=== PATIENT | female | born 1975 | race Caucasian/White ===

== ENCOUNTER → 2019-03-28 13:25 | Outpatient (CLI) | payer MEDICAID, SELFPAY ==
[2019-03-28 13:54] LABS: Basophils # 0.1 K/mm3 (0-0.2); Basophils % 0.4 % (0.1-2.0); Eosinophils # 0.2 K/mm3 (0.0-0.4); Eosinophils % 1.4 % (0.1-12.0); Hematocrit 50.8 % (37.0-47.0); Hemoglobin 16.7 g/dL (12.2-16.2); Lymphocytes # 2.1 K/mm3 (0.7-4.5); Lymphocytes % 18.2 % (10-50); Mean Corpuscular HGB Conc 32.9 g/dL (31.8-35.4); Mean Corpuscular Volume 94.5 fl (81-99); Mean Platelet Volume 8.8 fl (7.4-10.4); Monocytes # 0.6 K/mm3 (0.1-1.0); Monocytes % 5.5 % (1.7-9.3); Neutrophils # 8.6 K/mm3 (1.8-7.8); Neutrophils % 74.5 % (37.0-80.0); Platelet Count 266 K/mm3 (142-424); Red Blood Count 5.38 M/mm3 (4.20-5.40); Red Cell Distribution Width 13.2 % (11.5-17.5); White Blood Count 11.5 K/mm3 (4.8-10.8)
[2019-03-28 14:28] LABS: Alanine Aminotransferase 20 U/L (12-78); Albumin Level 4.4 gm/dL (3.4-5.0); Albumin/Globulin Ratio 1.1 (1.1-1.8); Alkaline Phosphatase 188 U/L (46-116); Anion Gap 13.5 mEq/L (5-15); Aspartate Amino Transferase 10 U/L (15-37); Bilirubin,Total 0.5 mg/dL (0.2-1.0); Blood Urea Nitrogen 5 mg/dL (7-18); Calcium 9.7 mg/dL (8.5-10.1); Carbon Dioxide 28 mmol/L (21.0-32.0); Chloride 103 mmol/L (98-107); Chol/HDL Ratio 3.1 (1-3.5); Cholesterol 194 mg/dL (140-200); Creatinine,Serum 0.83 mg/dL (0.55-1.02); Estimated Glomerular Filt Rate 76 ml/min (>60); Free T4 (Free Thyroxine) 1.17 ng/dl (0.76-1.46); GFR (African American) 92 ML/MIN (>60); Glucose 87 mg/dL (74-106); HDL Cholesterol 62 mg/dL (29-89); LDL Cholesterol 115 mg/dL (0-130); Potassium 4.5 mmoL/L (3.5-5.1); Sodium 140 mmol/L (136-145); Thyroid Stimulating Hormone 0.87 uIU/ml (0.358-3.740); Total Protein,Serum 8.4 gm/dL (6.4-8.2); Triglycerides 87 mg/dL (30-200); VLDL Cholesterol 17 mg/dL (0-40)
[2019-03-29 10:13] LABS: FSH 134.4 mIU/mL (.); LH 71.1 mIU/mL (.); Progesterone 0.2 ng/mL (.); Vitamin D 25 Hydroxy 8.4 ng/mL (30.0-100.0)
[2019-03-30 12:44] LABS: Estrogen 144 pg/mL (.)
== END ==
PROVIDERS: Visit Provider Emergency Medicine
DX: R53.83 Other fatigue (principal); E55.9 Vitamin D deficiency, unspecified; I10 Essential (primary) hypertension; F41.9 Anxiety disorder, unspecified; R01.1 Cardiac murmur, unspecified; R06.02 Shortness of breath; Z72.0 Tobacco use
CPT/HCPCS: 80053; 80061; 82652; 82672; 83001; 83002; 84144; 84439; 84443; 85025

== ENCOUNTER → 2019-05-26 09:52 | Outpatient (CLI) | payer MEDICAID, SELFPAY | PROVIDERS: PCP Emergency Medicine; Visit Provider Emergency Medicine | DX: J45.909 Unspecified asthma, uncomplicated (principal) | CPT/HCPCS: 94060; 94726; 94729 ==

== ENCOUNTER → 2020-01-11 13:40 | Outpatient (CLI) | payer OTHER, SELFPAY ==
[2020-01-11 14:17] LABS: Basophils % 0.3 % (0.1-2.0); Eosinophils # 0.1 K/mm3 (0.0-0.4); Eosinophils % 0.8 % (0.1-12.0); Hematocrit 48.3 % (37.0-47.0); Hemoglobin 15.6 g/dL (12.2-16.2); Lymphocytes # 1.7 K/mm3 (0.7-4.5); Lymphocytes % 16.1 % (10-50); Mean Corpuscular HGB Conc 32.3 g/dL (31.8-35.4); Mean Corpuscular Hemoglobin 30.3 pg (27.0-31.2); Mean Corpuscular Volume 93.7 fl (81-99); Mean Platelet Volume 9.2 fl (7.4-10.4); Monocytes # 0.6 K/mm3 (0.1-1.0); Monocytes % 5.2 % (1.7-9.3); Neutrophils # 8.4 K/mm3 (1.8-7.8); Neutrophils % 77.6 % (37.0-80.0); Platelet Count 226 K/mm3 (142-424); Red Blood Count 5.15 M/mm3 (4.20-5.40); Red Cell Distribution Width 13.4 % (11.5-17.5); White Blood Count 10.8 K/mm3 (4.8-10.8)
[2020-01-11 14:35] LABS: Alanine Aminotransferase 16 U/L (9-52); Albumin/Globulin Ratio 1.3 (1.1-1.8); Alkaline Phosphatase 126 U/L (46-116); Anion Gap 13.3 mEq/L (5-15); Aspartate Amino Transferase 15 U/L (15-37); Bilirubin,Total 0.4 mg/dL (0.2-1.0); Blood Urea Nitrogen 4 mg/dL (7-18); Calcium 8.8 mg/dL (8.5-10.1); Carbon Dioxide 30 mmol/L (21.0-32.0); Chloride 104 mmol/L (98-107); Cholesterol 166 mg/dL (140-200); Creatinine,Serum 0.83 mg/dL (0.55-1.02); Estimated Glomerular Filt Rate 75 ml/min (>60); GFR (African American) 91 ML/MIN (>60); Globulin 3.1 gm/dl (1.3-3.2); Glucose 70 mg/dL (74-106); HDL Cholesterol 56 mg/dL (29-89); LDL Cholesterol 93 mg/dL (0-130); Potassium 4.3 mmoL/L (3.5-5.1); Sodium 143 mmol/L (137-145); T4 (Thyroxine) 10.1 ug/dl (4.7-13.3); Thyroid Stimulating Hormone 0.88 uIU/ml (0.358-3.740); Total Protein,Serum 7.1 g/dL (6.4-8.2); Triglycerides 83 mg/dL (30-200); VLDL Cholesterol 17 mg/dL (0-40)
[2020-01-12 10:29] LABS: Vitamin D 25 Hydroxy 82.3 ng/mL (30.0-100.0)
== END ==
PROVIDERS: Visit Provider Nurse Practitioner Family
DX: R53.83 Other fatigue (principal)
CPT/HCPCS: 80053; 80061; 82652; 84436; 84443; 85025

== ENCOUNTER → 2020-04-05 06:55 | Outpatient (CLI) | payer OTHER, SELFPAY ==
--- NOTE | 2020-04-05 06:57 | CA_ITS ---
APPROVED REPORT Falsework Builder: CT Laterality: Bilateral Study Quality: Good Indications: b carotid bruit, smoker, sob, htn, dizzy, syncope Doppler Spectral Velocity Analysis ECA (R) 91.70/24.80 cm/s ECA (L) 99.40/24.00 cm/s dICA (R) 123.40/50.60 cm/s dICA (L) 102.80/39.40 cm/s Amanda (R) 103.70/39.40 cm/s Amanda (L) 96.00/28.30 cm/s pICA (R) 80.50/33.40 cm/s pICA (L) 80.50/27.40 cm/s dCCA (R) 108.80/33.40 cm/s dCCA (L) 102.00/23.10 cm/s pCCA (R) 133.70/24.00 cm/s pCCA (L) 120.00/23.10 cm/s Vert (R) 84.00/19.70 cm/s Vert (L) 59.10/14.60 cm/s ICA/CCA 1.10 ICA/CCA 1.00 Findings Duplex evaluation demonstrates stenosis of the right proximal internal carotid artery in the range of 20-49%, lower end of scale. Duplex evaluation demonstrates stenosis of the left proximal internal carotid artery in the range of 20-49%, lower end of scale. Duplex evaluation demonstrates antegrade flow of the bilateral Vertebral Arteries. Thyroid cyst noted on the right Conclusion Duplex evaluation demonstrates stenosis of the right proximal internal carotid artery in the range of 20-49%, lower end of scale. Duplex evaluation demonstrates stenosis of the left proximal internal carotid artery in the range of 20-49%, lower end of scale. Duplex evaluation demonstrates antegrade flow of the bilateral Vertebral Arteries. Electronically signed by : Xavi Gaitan MD 04/05/2020 17:33:37
--- NOTE | 2020-04-05 06:57 | CT_ITS ---
PROCEDURE: CT CHEST WO CON CLINICAL INDICATION: dyspnea Shortness of air and chest pain COMPARISON: ABDPELW/O CT ABD PELVIS W/O CONTRAST from 08/13/2014 CT ABDOMEN PELVIS W CON from 11/13/2019 TECHNIQUE: Axial images obtained with sagittal and coronal reformats. All CT scans at the facility use one or more dose reduction, viz: automated exposure control, ma/kV adjustment per patient size (including targeted exams where dose is matched to indication, i.e. head), or iterative reconstruction technique. FINDINGS: HEART AND MEDIASTINAL STRUCTURES: No mediastinal or hilar mass. There is some increased density within the anterior mediastinal fat which could be related to some residual thymic tissue. Normal heart size.. There is minimal pericardial thickening. 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 The left subclavian and jugular vein empties into a left-sided brachiocephalic vein/SVC which empties into the left atrium on the left at the region of the inferior vena cava. LUNGS AND PLEURAL SPACES: Centrilobular emphysema/COPD changes. Evidence of old granulomatous disease. No suspicious nodules or infiltrates are evident. No central obstructing lesions are evident. BONY STRUCTURES: Dextroscoliosis of the midthoracic spine UPPER ABDOMEN: Prior cholecystectomy ADDITIONAL FINDINGS: No other significant abnormalities. IMPRESSION: No acute finding. 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
--- NOTE | 2020-04-05 06:57 | NM_ITS ---
APPROVED REPORT Exam: Nuclear Stress Test Indication: HTN, TOB USE, C.P., SOB, PALPITATIONS, SYNCOPE, FATIGUE Patient Location: Outpatient Stress Tech: Sunshine Henson IN Tech:CJ Kahn RT (R)(N)(M) Ht: 5 ft 4 in Wt: 107 lbs Bra Size: A HR: 76 bpm BP: 139/68 mmHg BSA: 1.50 m2 BMI: 18.3 History: HTN, TOB USE, C.P., SOB, PALPITATIONS, SYNCOPE, FATIGUE Procedure: Patient received a 0.4 mg of intravenous Lexiscan, resting heart rate 76 bpm, resting blood pressure 139/68 mmHg, with Lexiscan maximum heart rate achived was 93 bpm which is Less than 85 % of the maximum predicted heart rate and blood pressure was 128/68 mmHg. Electrocardiogram Resting electrocardiogram showed sinus rhythm, with Lexiscan there is less than 1.[address] segment depression noted from the baseline EKG. The EKG portion of the Lexiscan Myoview is nondiagnostic. Cardiac Stress and Resting SPECT Images: Cardiac Stress and Resting SPECT images were obtained using technetium 99m Myoview 30.6 mCi stress and 10.65 mCi at rest. Gated SPECT with analysis of segmental wall motion and calculation of the ejection fraction also done. Cardiac stress and resting SPECT images show a small area of reversible ischemia involving the posterolateral wall, computer derived ejection fraction is 53% with no regional wall motion abnormality, right ventricle is normal size and contractility. Conclusion: 1. The EKG portion of the Lexiscan Myoview is nondiagnostic. 2. Scintigraphic evidence of small area reversible ischemia involving the posterolateral wall, computer derived ejection fraction 53% with no segmental wall motion abnormality, right ventricle is normal size and contractility. 3. Abnormal Lexiscan Myoview study. Electronically signed by : Jaxson Fuentes, 04/05/2020 14:59:17
--- NOTE | 2020-04-05 06:57 | CA_ITS ---
APPROVED REPORT Exam: Pharmacologic Technologist: Cassie Henson, Ht: 5 ft 4 in Wt: 107 lbs BSA: 1.50 m2 HR: 67 bpm BP: 139/76 mmHg Rhythm: NSR Medical History Medications: Lisinopril,,,,, Omeprazole,,,,, Lexapro,,,,, Escitalopram,,,,, HCTZ,,,,, FluTICASONE,,,,, CHANTIX,,,,, Stress Test Details Test: LEXISCAN HR Resting HR: 72 bpm Max Heart Rate (APMHR): 178 bpm Max HR Achieved: 95 bpm Target HR (85% APMHR): 151 bpm % of APMHR: 53 Recovery HR: 78 bpm BP Resting BP: 139/76 mmHg Max BP: 139/76 mmHg Recovery BP: 117.0/69.0 mmHg ECG Clinical Reason for Termination: Completed Protocol Exercise duration: 04:04 min Highest Stage Achieved: Exercise capacity: 1.0 METs Stress ECG Conclusion No chest pain. Patient c/o of dizziness and shortness of air. No arrhythmias. Less than 1.5mm ST segment changes. Nondiagnostic. Electronically signed by : Jaxson Fuentes, 04/05/2020 14:55:23
--- NOTE | 2020-04-05 06:57 | CA_ITS ---
APPROVED REPORT EXAM: Comprehensive 2D, Doppler, and color-flow Echocardiogram Coutierier: Yumiko Chavis RVT Ht: 5 ft 4 in Wt: 107lbs BSA: 1.50 BP: 144/109 mmHg Indications: CP,SOA,DOUGLAS,SMOKER,PALPS,FATIGUE,HTN,DIZZINESS,NEAR SYNCOPE,ABN EKG,? PFO Echo Enhancing Agent Indication: Rule out Shunt Agent(s) / Amount(s) Used: Agitated Saline 10 cc Comments: BUBBLE STUDY APPEARS NEG. 2D Dimensions LVOT 1.48 cm (M/F) 1.5-2.5 M-Mode Dimensions RVDd 1.35 cm (0.9-2.6) LVDd 5.23 cm (3.5-5.7) LVDs 3.66 cm (3.5-5.7) IVSd 0.59 cm (0.6-1.1) PWd 0.44 cm (0.6-1.1) EF (Teich) 56.90% FS 30.00% EDV (Teich) 131.20 mL ESV (Teich) 56.60 mL LV Diastology E/A Ratio 0.61 Mitral Valve MV A Velocity 85.00 (40-130 cm/s) Left Ventricle Left atrium is mildly enlarged, left ventricle is normal size, there is no concentric left ventricular hypertrophy, visually estimated ejection fraction 55% with no regional wall motion abnormality. Diastolic parameters are inconclusive. Right Ventricle Right atrium and right ventricular normal size and contractility. Aortic Valve Aortic valve is thickened and calcified leaflet chordae display good mobility, there is no aortic stenosis, there is moderate to severe aortic insufficiency. Mitral Valve Mitral valve leaflets are minimally thickened, there is no mitral stenosis, there is mild mitral regurgitation. Tricuspid Valve Tricuspid valve is grossly normal, there is mild tricuspid regurgitation, tricuspid regurgitation jet velocity is inadequate for calculation of the right ventricular systolic pressure. Pulmonic Valve Pulmonic valve is poorly visualized. Great Vessels Aortic root is normal size. Pericardium No significant pericardial effusion noted. Conclusion 1. Mildly enlarged left atrium, normal left ventricular size, visually estimated ejection fraction 55% with no regional wall motion abnormality, diastolic parameters are inconclusive. 2. Thickened and calcified aortic valve without aortic stenosis, there is moderate to severe aortic insufficiency. 3. Mild mitral and tricuspid regurgitation. 4. No significant pericardial effusion noted. Electronically signed by : Jaxson Fuentes, 04/05/2020 15:37:27
[2020-04-05 11:16] LABS: Anion Gap 9.5 mEq/L (5-15); Blood Urea Nitrogen 7 mg/dl (7-17); Calcium 9.4 mg/dl (8.4-10.2); Carbon Dioxide 34 mmol/L (22.0-30.0); Chloride 95 mmol/L (98-107); Estimated Glomerular Filt Rate 92 ml/min (>60); GFR (African American) 111 ML/MIN (>60); Glucose 76 mg/dl (74-100); Potassium 4.5 mmoL/L (3.5-5.1); Sodium 134 mmol/L (136-145)
[2020-04-05 11:24] LABS: NT Pro Brain Natriuretic Pep. 29.4 pg/mL (0-125)
== END ==
PROVIDERS: PCP Emergency Medicine; Visit Provider Internal Medicine Cardiovascular Disease
DX: R07.9 Chest pain, unspecified (principal); R09.89 Other specified symptoms and signs involving the circulatory and respiratory systems; R06.00 Dyspnea, unspecified; I49.9 Cardiac arrhythmia, unspecified; I10 Essential (primary) hypertension; Z72.0 Tobacco use; I35.8 Other nonrheumatic aortic valve disorders; R94.31 Abnormal electrocardiogram [ECG] [EKG]
CPT/HCPCS: 36415; 71250; 78452; 80048; 83880; 93017; 93306; 93880; A9502; J2785

== ENCOUNTER → 2020-04-16 11:03 | Outpatient (CLI) | payer OTHER, SELFPAY ==
[2020-04-16 13:16] LABS: Ferritin 60.7 ng/ml (6.24-137)
[2020-04-17 13:34] LABS: Vitamin B12 376 pg/mL (232-1245)
== END ==
PROVIDERS: Visit Provider Specialist
DX: E83.10 Disorder of iron metabolism, unspecified (principal); G25.81 Restless legs syndrome; G43.919 Migraine, unspecified, intractable, without status migrainosus; R51 Headache; R53.83 Other fatigue
CPT/HCPCS: 36415; 82607; 82728

== ENCOUNTER 2020-04-19 12:02 | Day surgery (SDC) | payer OTHER, SELFPAY ==
[2020-04-19 12:07] VITALS: BMI 18.7
[2020-04-19 12:28] VITALS: BP 114/74; PULSE 76; PULSE 80; RESP 18; TEMP 36.8; O2SAT 99
--- NOTE | 2020-04-19 12:34 | CA_ITS ---
APPROVED REPORT EXAM: Comprehensive 2D, Doppler, and color-flow Echocardiogram Industrial Relations Officer: Wendi Loza RT(R) Ht: 5 ft 4 in Wt: 109lbs BSA: 1.51 BP: 110/70 mmHg Indications: CP, smoker, palpitations, HTN, SOB, ABN EKG, mod-severe AI on echo Procedure After obtaining informed consent, patient underwent transesophageal echo in the [facility]. Type of Sedation : Conscious Sedation Transesophageal probe was inserted and advanced into esophagus without difficulty by Dr. Fozia Alberto. The CHERYL was performed without complications. Throughout the procedure, the blood pressure, pulse oximetry, cardiac rhythm, and rate were monitored. The patient tolerated the procedure without adverse effects. Recovery from conscious sedation was uneventful and vital signs were stable. Left Ventricle Left ventricle is normal size with preserved left ventricular systolic function. Visually estimated ejection fraction 55%. Right Ventricle Right ventricle is normal size and contractility. Atria Left atrium is normal size. Left atrial appendage is free of thrombus, there is good appendage flow by spectral Doppler. Right atrium is normal size. Intra-atrial septum is intact, there is no flow across the interatrial septum, agitated saline contrast study fails to identify intracardiac shunt. Aortic Valve Aortic valve is trileaflet, leaflets are minimally thickened and calcified, there is no aortic stenosis, there is moderate aortic insufficiency, there is no diastolic flow reversal seen in proximal descending thoracic aorta. Mitral Valve Mitral valve is grossly normal, there is mild mitral regurgitation, pulmonary vein Doppler is normal. Tricuspid Valve Tricuspid valve is grossly normal, there is mild tricuspid regurgitation. Pulmonic Valve Pulmonic valve is grossly normal there is no pulmonic stenosis. Insufficiency. Great Vessels Aortic root is normal size. There is no aneurysm or dissection Pericardium No significant pericardial effusion noted Conclusion 1. Normal left ventricular size preserved left ventricular systolic function, visually estimated ejection fraction 55% with no regional wall motion abnormality. 2. Mild degenerative seen on the trileaflet aortic valve without aortic stenosis, there is moderate aortic insufficiency. 3. Mild mitral and tricuspid regurgitation. 4. Agitated saline contrast study fails to identify intracardiac shunt 5. No significant pericardial effusion noted. Electronically signed by : Jaxson Fuentes, 04/19/2020 14:03:35
[2020-04-19 12:35] LABS: Basophils # 0.1 K/mm3 (0-0.2); Basophils % 1.5 % (0.1-2.0); Eosinophils # 0.3 K/mm3 (0.0-0.4); Eosinophils % 4.1 % (0.1-12.0); Hematocrit 45.5 % (37.0-47.0); Hemoglobin 14.6 g/dL (12.2-16.2); Lymphocytes # 1.9 K/mm3 (0.7-4.5); Lymphocytes % 23.9 % (10-50); Mean Corpuscular Hemoglobin 29.7 pg (27.0-31.2); Mean Platelet Volume 7.8 fl (7.4-10.4); Monocytes # 0.6 K/mm3 (0.1-1.0); Neutrophils # 5.1 K/mm3 (1.8-7.8); Neutrophils % 63.5 % (37.0-80.0); Platelet Count 259 K/mm3 (142-424); Red Cell Distribution Width 13.9 % (11.5-17.5); White Blood Count 8.1 K/mm3 (4.8-10.8)
[2020-04-19 13:16] VITALS: BP 95/53; PULSE 61; RESP 18; O2SAT 97
--- NOTE | 2020-04-19 13:24 | HMH.ANESCL ---
[facility] Anesthesia Checklist - Patient Identification Patient Identification: Arm Band, Verbal (Name & ) - Structural Data Admitted From: Home Planned Operative Procedure/s: CHERYL Consent for Planned Operative Procedure(s) Verified: Yes Verified Documents: Surgical Consent, History and Physical - NPO Status Verified Time NPO: 00:00 - Chart Verification Results Verified: CBC, BMP - Additional verifications Anesthesia Reactions: No - Airway Assessment C-Spine Mobility Assessed: Yes TMJ Mobility Assessed: Yes Dentition: Edentulous - Neurological Assessment Level of Consciousness: Awake, Alert, Appropriate, Follows Commands Hx Seizures: No Numbness or tingling in extremities: No - Anesthesia Plan Anesthesia Risk discussed: Yes Anesthesia Plan: Verified ASA Class: III Anesthesia Type: MAC [facility] History I have reviewed the patient's past medical history: Yes Medical History: Reports:: Anxiety, Asthma, Chronic Obstructive Pulmonary Disease (COPD), Heart Murmur, Hypertension, Migraine, Valvular Heart Disease Denies:: Cancer, Diabetes Mellitus Type 1, Diabetes Mellitus Type 2, Internal Pacemaker, MRSA, Seizures *Have you ever received a pneumonia vaccine?: Yes *Have you received a flu vaccine this season?: Yes Other Medical History: Reports: Arthritis Anesthesia experience/problems:: none Other Surgeries: Yes: Cholecystectomy, Hysterectomy-Total. No: Pacemaker Amputation: No Fractures: No - *Social History Smoking Status: Current every day smoker Tobacco Type: cigarettes # Packs/Day (cigarettes): 1 Alcohol Intake: never Substance Use Type: denies use *Occupational Status:: unemployed Housing: house Household Members: spouse *Travel in the last 8 weeks: None - Psychiatric History Pschychiatric History:: Reports:: Anxiety Family Hx:: Cancer, Diabetes, Heart Attack
[2020-04-19 13:30] VITALS: BP 111/61; PULSE 63; RESP 16; O2SAT 99
[2020-04-19 13:55] VITALS: BP 123/72; PULSE 63; RESP 20; O2SAT 99
== END 2020-04-19 13:58 | disposition home or self-care (01) ==
LOC: CATHLAB 12:04
PROVIDERS: PCP Emergency Medicine; Visit Provider Internal Medicine Cardiovascular Disease
DX: I65.23 Occlusion and stenosis of bilateral carotid arteries (principal); E83.10 Disorder of iron metabolism, unspecified; G25.81 Restless legs syndrome; G43.909 Migraine, unspecified, not intractable, without status migrainosus; Z72.0 Tobacco use; I35.1 Nonrheumatic aortic (valve) insufficiency; J44.9 Chronic obstructive pulmonary disease, unspecified; I10 Essential (primary) hypertension; Z88.8 Allergy status to other drugs, medicaments and biological substances; Z79.51 Long term (current) use of inhaled steroids; Z79.899 Other long term (current) drug therapy
CPT/HCPCS: 85025; 93312

== ENCOUNTER → 2020-04-25 13:15 | Outpatient (CLI) | payer OTHER, SELFPAY | PROVIDERS: PCP Emergency Medicine; Visit Provider Specialist | DX: G47.00 Insomnia, unspecified (principal); G25.81 Restless legs syndrome; R06.83 Snoring; I65.23 Occlusion and stenosis of bilateral carotid arteries; R53.83 Other fatigue; G43.919 Migraine, unspecified, intractable, without status migrainosus; R51 Headache; E83.10 Disorder of iron metabolism, unspecified | CPT/HCPCS: 95806 ==

== ENCOUNTER → 2020-05-07 08:25 | Day surgery (SDC) | payer OTHER, SELFPAY ==
[2020-05-07 08:30] VITALS: BMI 18.1
== END ==
PROVIDERS: PCP Emergency Medicine; Visit Provider Internal Medicine
DX: Z53.9 Procedure and treatment not carried out, unspecified reason (principal)

== ENCOUNTER 2020-05-28 08:39 | Day surgery (SDC) | payer OTHER, SELFPAY ==
[2020-05-28] VITALS (11 sets, daily range): BP systolic 92–177; BP diastolic 34–85; PULSE 63–93; RESP 16–20; TEMP 36.1; O2SAT 95–99; BMI 18.1
--- NOTE | 2020-05-28 | IR_ITS ---
APPROVED REPORT Patient Location: Outpatient Cane Splicer: CJ Sherwood RT (R) PROCEDURES Left heart catheterization Left ventriculogram Selective coronary angiogram Catheter placement in the ascending aorta Ascending aortogram INDICATION Angina pectoris, Aortic regurgitation Informed consent was obtained prior to the procedure. COMPLICATIONS none Estimated Blood Loss: less than 10 mls TECHNIQUE One percent lidocaine used to anesthetize the right anterior aspect of the wrist. The right radial artery was accessed via the Seldinger technique. A 6 Palestinian sheath was placed in the right radial artery. 2.5 mg of verapamil, 800 mcg of nitroglycerin, 1mg Lidocaine and 5000 U Heparin were given through the arterial sheath. The trap catheter was also used to perform left heart catheterization, left ventriculogram and selective coronary angiogram. A pigtail catheter was placed in the ascending aorta and ascending aortography was performed at the end of the procedure the sheath was removed good hemostasis was achieved using Traclet band, patient was transferred to the postop holding area in stable condition. ANGIOGRAPHIC RESULTS The left main artery Normal The left anterior descending artery Normal The circumflex artery Normal The right coronary artery Dominant normal The ROPER ventriculogram reveals Normal 65% The left ventricular end-diastolic pressure 10 mmHg The ascending aorta is of normal caliber and gives rise to the brachiocephalic left common carotid artery and left subclavian artery +2 aortic regurgitation is identified IMPRESSION Normal coronary arteries Normal ejection fraction Normal left ventricular end-diastolic pressure Normal left ventricular size with moderate aortic regurgitation PLAN 1. Medical management Electronically signed by : Jose Vaughan, 05/28/2020 11:34:02
[2020-05-28 09:28] LABS: Basophils # 0.1 K/mm3 (0-0.2); Basophils % 0.4 % (0.1-2.0); Eosinophils # 0.1 K/mm3 (0.0-0.4); Eosinophils % 1.3 % (0.1-12.0); Hematocrit 45.9 % (37.0-47.0); Hemoglobin 15.5 g/dL (12.2-16.2); Lymphocytes % 19.1 % (10-50); Mean Corpuscular HGB Conc 33.7 g/dL (31.8-35.4); Mean Corpuscular Hemoglobin 31.7 pg (27.0-31.2); Mean Corpuscular Volume 93.8 fl (81-99); Mean Platelet Volume 8.1 fl (7.4-10.4); Monocytes # 0.6 K/mm3 (0.1-1.0); Monocytes % 5.8 % (1.7-9.3); Neutrophils # 7.8 K/mm3 (1.8-7.8); Neutrophils % 73.4 % (37.0-80.0); Platelet Count 219 K/mm3 (142-424); Red Blood Count 4.89 M/mm3 (4.20-5.40); Red Cell Distribution Width 13.5 % (11.5-17.5); White Blood Count 10.7 K/mm3 (4.8-10.8)
[2020-05-28 09:31] LABS: Chloride 103 mmol/L (98-107); Sodium 138 mmol/L (136-145)
[2020-05-28 09:34] LABS: Blood Urea Nitrogen 5 mg/dl (7-17); Creatinine Clearance Estimated 79 mL/min (50-200); Estimated Glomerular Filt Rate 92 ml/min (>60); GFR (African American) 111 ML/MIN (>60)
[2020-05-28 09:35] LABS: Calcium 8.8 mg/dl (8.4-10.2); Carbon Dioxide 31 mmol/L (22.0-30.0); Glucose 85 mg/dl (74-100)
== END 2020-05-28 13:22 | disposition home or self-care (01) ==
LOC: CATHLAB 08:41
PROVIDERS: PCP Emergency Medicine; Visit Provider Internal Medicine
DX: I20.8 Other forms of angina pectoris (principal); I35.1 Nonrheumatic aortic (valve) insufficiency; I10 Essential (primary) hypertension; I65.23 Occlusion and stenosis of bilateral carotid arteries; Z72.0 Tobacco use; Z88.8 Allergy status to other drugs, medicaments and biological substances; Z79.899 Other long term (current) drug therapy
CPT/HCPCS: 80048; 85025; 93458; 93567; 99152; C1725; C1769; J1644; Q9966; Q9967

== ENCOUNTER → 2020-07-23 10:31 | Outpatient (POV) | payer OTHER, SELFPAY ==
[2020-07-23 11:02] VITALS: BP 192/85; PULSE 78; RESP 18; TEMP 36.6; O2SAT 97; BMI 17.8
--- NOTE | 2020-07-23 11:46 | HMH.PMCON ---
Assessment and Plan (1) Degenerative joint disease (DJD) of lumbar spine Current visit: Yes Status: Chronic Category: Medical Code(s): M47.816 - Spondylosis without myelopathy or radiculopathy, lumbar region (2) Lumbar radiculopathy Current visit: Yes Status: Chronic Category: Medical Code(s): M54.16 - Radiculopathy, lumbar region - Assessment and plan all Dx Assessment and Plan for all problems:: We will schedule L4-L5 Lumbar Epidural Steroid Injection for the Patient. Patient's Been Instructed to Call the Office If She Has Any Issues Prior to Her Next Appointment. Patient Is Not on Any Anticoagulation Therapy. Dr. Miller has reviewed this note and agrees with this plan of care. This note was dictated using voice recognition software and may contain errors or omissions HPI - Data of Consult Consult date: 07/23/20 Requesting Physician: Cecy Andrade APRN Primary Care Provider: Rodolfo Muhammad MD - Consult Narrative Reason for consult: Back pain History of present illness: Ms. Weiss is a 44 year old female who presents today for consultation regards to her back and leg pain. Patient was seen in our clinic previously and managed with epidural steroid injections and [place]. Patient had a failed urine drug screen and we were no longer able to prescribe for her. Patient states that the epidural injections were beneficial for her and she would like to continue with this. She rates her pain today 3 out of 10. She is scheduled to start physical therapy today. Patient currently on Tylenol 3, gabapentin and tizanidine. Patient's pain is in her back radiating to her bilateral legs. CC: Cecy Andrade APRN [facility] History I have reviewed the patient's past medical history: Yes Medical History: Reports:: Anxiety, Asthma, Chronic Obstructive Pulmonary Disease (COPD), Heart Murmur, Hypertension, Migraine, Valvular Heart Disease Denies:: Cancer, Diabetes Mellitus Type 1, Diabetes Mellitus Type 2, Internal Pacemaker, MRSA, Seizures *Have you ever received a pneumonia vaccine?: Yes *Have you received a flu vaccine this season?: Yes Other Medical History: Reports: Arthritis Other Surgeries: Yes: Cholecystectomy, Hysterectomy-Total. No: Pacemaker Amputation: No Fractures: No - *Social History Smoking Status: Current every day smoker Tobacco Type: cigarettes # Packs/Day (cigarettes): 1 Alcohol Intake: never Substance Use Type: denies use *Occupational Status:: other Housing: house Household Members: other *Travel in the last 8 weeks: None - Psychiatric History Pschychiatric History:: Reports:: Anxiety Family Hx:: Unable to obtain Review of Systems - Review of Systems ROS General: no recent weight change, no fever, no sleep disturbances Respiratory: no cough, no shortness of air, no recurring pulmonary infections Cardiovascular/Peripheral Vascular: No chest pain, No palpitations, no edema, no shortness of breath. Gastrointestinal: no new onset incontinence, normal bowel movements reported Genitourinary: no new onset incontinence Musculoskeletal: Back pain, leg pain Psychiatric: normal mood/ affect, Neurological: [denies new onset weakness in extremities], [denies new onset balance issues] Meds Home Medications Medication Instructions Recorded Confirmed Type cetirizine 10 mg capsule 10 mg PO DAILY #30 cap 04/20/20 07/16/20 Rx lisinopril 10 mg tablet See Rx Instructions .ROUTE 06/07/20 07/16/20 Rx .COMPLEX #90 tab vilazodone 20 mg tablet 20 mg PO DAILY 30 Days #30 tab 06/11/20 07/16/20 Rx fluticasone furoate 100 ea INHALATION 07/09/20 07/16/20 History mcg-vilanterol 25 mcg/dose inhalation powder fluticasone propionate 50 g INTRANASAL 07/09/20 07/16/20 History mcg/actuation nasal spray,suspension tizanidine 2 mg tablet 2 mg PO QHS #30 tab 07/09/20 07/16/20 Rx trazodone 50 mg tablet 50 mg PO QHS #45 tab 07/09/20 07/16/20 Rx acetaminophen 300 mg-codeine 30 mg 1 tab
== END ==
PROVIDERS: PCP Emergency Medicine; Visit Provider Clinical Nurse Specialist Family Health
DX: M47.896 Other spondylosis, lumbar region (principal); M54.16 Radiculopathy, lumbar region
CPT/HCPCS: 99202

== ENCOUNTER → 2020-08-15 15:51 | Outpatient (CLI) | payer OTHER, SELFPAY ==
[2020-08-15 16:06] LABS: Basophils % 0.4 % (0.1-2.0); Eosinophils # 0.3 K/mm3 (0.0-0.4); Hematocrit 49.6 % (37.0-47.0); Hemoglobin 16.4 g/dL (12.2-16.2); Lymphocytes # 2.7 K/mm3 (0.7-4.5); Lymphocytes % 29.6 % (10-50); Mean Corpuscular Hemoglobin 31.5 pg (27.0-31.2); Mean Corpuscular Volume 95.5 fl (81-99); Mean Platelet Volume 9.9 fl (7.4-10.4); Monocytes # 0.6 K/mm3 (0.1-1.0); Monocytes % 6.3 % (1.7-9.3); Neutrophils # 5.5 K/mm3 (1.8-7.8); Neutrophils % 60.6 % (37.0-80.0); Platelet Count 185 K/mm3 (142-424); Red Blood Count 5.19 M/mm3 (4.20-5.40); Red Cell Distribution Width 13.4 % (11.5-17.5); White Blood Count 9.1 K/mm3 (4.8-10.8)
[2020-08-15 16:47] LABS: Alanine Aminotransferase 7 U/L (12-78); Albumin Level 4.6 g/dl (3.5-5.0); Albumin/Globulin Ratio 1.7 (1.1-1.8); Alkaline Phosphatase 130 U/L (38-126); Anion Gap 15.5 mEq/L (5-15); Aspartate Amino Transferase 22 U/L (14-36); Bilirubin,Total 0.4 mg/dl (0.2-1.3); Blood Urea Nitrogen 4 mg/dl (7-17); Calcium 9.8 mg/dl (8.4-10.2); Carbon Dioxide 31 mmol/L (22.0-30.0); Chloride 98 mmol/L (98-107); Chol/HDL Ratio 2.8 (1-3.5); Cholesterol 171 mg/dl (140-200); Estimated Glomerular Filt Rate 92 ml/min (>60); GFR (African American) 111 ML/MIN (>60); Globulin 2.7 g/dL (1.3-3.2); Glucose 71 mg/dl (74-100); HDL Cholesterol 61 mg/dl (40-60); Potassium 4.5 mmoL/L (3.5-5.1); Sodium 140 mmol/L (136-145); Total Protein,Serum 7.3 g/dl (6.3-8.2); Triglycerides 145 mg/dl (30-150); VLDL Cholesterol 29 mg/dL (0-40)
[2020-08-15 16:58] LABS: Direct LDL Cholesterol 89.77 mg/dL (100-129)
[2020-08-15 17:04] LABS: 25-OH Vitamin D, Total 42.4 ng/mL (30-100)
[2020-08-15 17:05] LABS: Free T4 (Free Thyroxine) 1.49 ng/dl (0.78-2.19)
[2020-08-15 17:18] LABS: Thyroid Stimulating Hormone 4.31 uIU/mL (0.465-4.68)
[2020-08-15 17:37] LABS: Vitamin B12 370 pg/mL (239-931)
== END ==
PROVIDERS: Visit Provider Emergency Medicine
DX: R42 Dizziness and giddiness (principal); E55.9 Vitamin D deficiency, unspecified
CPT/HCPCS: 80053; 80061; 82306; 82607; 84439; 84443; 85025

== ENCOUNTER → 2020-08-23 13:45 | Outpatient (POV) | payer OTHER, SELFPAY ==
[2020-08-23 13:56] VITALS: BP 128/76; PULSE 65; RESP 18; O2SAT 97; BMI 17.5
--- NOTE | 2020-08-23 14:26 | XR_ITS ---
PROCEDURE: XR THORACIC SPINE 2V CLINICAL INDICATION: severe back pain COMPARISON: No exams were available for comparison FINDINGS: No fracture or dislocation. No lytic or blastic change. There is normal mineralization. Dextroscoliosis at 26 degrees. No obvious congenital anomalies. No acute fracture or dislocation Other findings:None. IMPRESSION: Dextroscoliosis Dictated by: Xavi Gaitan MD 08/23/2020 15:38 Xavi Gaitan MD in [place] 08/23/2020 15:38
--- NOTE | 2020-08-23 14:26 | XR_ITS ---
PROCEDURE: XR LUMBAR SPINE MIN 4V CLINICAL INDICATION: severe back pain COMPARISON: CT CT ABDOMEN PELVIS W CON from 11/13/2019 FINDINGS: No fracture or dislocation. No lytic or blastic change. There is normal mineralization. Leftward scoliosis at 22 degrees. The disc spaces are well preserved. No significant degenerative change. Surgical clips are present in the right upper quadrant. There are multiple pelvic phleboliths. Other findings:None. IMPRESSION: Levoscoliosis otherwise negative Dictated by: Xavi Gaitan MD 08/23/2020 15:37 Xavi Gaitan MD in [place] 08/23/2020 15:37
--- NOTE | 2020-08-23 15:04 | HMH.PAINSOAP ---
[facility] Pain Management SOAP Note Subjective:: Patient is a 45-year-old white female who presents today for follow-up. She was scheduled for a lumbar epidural steroid injection at L4-L5, however, she was denied by her insurance. She has been treated for chronic low back pain with lumbar radiculopathy symptoms as well as lumbar spondylosis and facet arthropathy. Patient was treated with oral medications in the past, however, she did have a positive urine drug screen and, as result, we did stop providing oral medications. Patient is having pain primarily in her low back with radiation into her lower extremities causing numbness and tingling. The patient says the pain is worse with standing and walking and does improve with leaning forward. She also says she has to reposition often with sitting. She is notably uncomfortable during the visit. She says that the numbness and tingling is in bilateral lower extremities. She is concerned that she is going to fall. She does rate her pain a 4 out of 10. Review of Systems General: No recent weight changes, no fever, no sleep disturbances Respiratory: No cough, no shortness of air, no recurring pulmonary infections Cardiovascular/peripheral vascular: No chest pain, no palpitations, no edema, no shortness of breath Gastrointestinal: No new onset incontinence, normal bowel movements reported Genitourinary: No new onset incontinence Musculoskeletal: Low back pain, bilateral lower extremity pain with numbness and tingling Psychiatric: Normal mood/affect Neurological: [Denies weakness in extremities], [denies balance issues] Objective:: Physical exam General: Alert and oriented x3, no acute distress, pleasant and cooperative, [on room air] Lungs: Respirations even and unlabored, symmetrical chest expansion Eyes: PERRL Musculoskeletal: Flexion and extension of lumbar spine somewhat guarded secondary to pain, deep tendon reflexes normal, strength in upper and lower extremities [5/5], [abnormal gait noted] Neurological: Speech clear, denture model maker equal, no gross sensory deficit Assessment:: Degenerative disc disease lumbar spine with lumbar radiculopathy symptoms, lumbar spondylosis with facet arthropathy lumbar spine Plan:: We will schedule the patient for a lumbar epidural steroid injection at L4-L5. She is not on any anticoagulation therapy. We will plan to see her back in the clinic after her injection to reassess her symptoms. She has tried and failed physical therapy for greater than 6 weeks as well as a continued home stretching program. She also continues to use ice and heat therapies. Patient is prescribed oral medications of gabapentin by her primary care provider. Patient has been instructed to contact clinic if she has any concerns for next appointment. The patient and I specifically discussed risk factors for COVID19. These risks include, but are not limited to age greater than 60, heart or lung disease, diabetes, immunosuppression, and travel. We also discussed NSAIDs may worsen COVID19 infection or symptoms. Patient should not use NSAIDs to treat COVID19 signs or symptoms. Patient was also informed that any type of corticosteroid of any form (oral or injection) will decrease the patient's immune system response and may increase the likelihood of COVID19 infection [address] symptoms[address]. Miller has reviewed this note and agrees with this plan of care. This note was dictated using voice recognition software and make contain errors or omissions. [facility] History I have reviewed the patient's past medical history: Yes Medical History: Reports:: Anxiety, Asthma, Chronic Obstructive Pulmonary Disease (COPD), Heart Murmur, Hypertension, Migraine, Valvular Heart Disease Denies:: Cancer, Diabetes Mellitus Type 1, Diabetes Mellitus Type 2, Internal Pacemaker, MRSA, Seizures *Have you ever received a pneumonia vaccine?: Yes *Have you received a flu vaccine this season?: Yes Other Medical History: Reports
== END ==
LOC: SC.PAIN 13:46 → RAD 14:20
PROVIDERS: PCP Emergency Medicine; Visit Provider Specialist
DX: G89.29 Other chronic pain (principal); M54.6 Pain in thoracic spine
CPT/HCPCS: 72070; 72110; 99212

== ENCOUNTER → 2020-09-20 16:05 | Outpatient (CLI) | payer OTHER, SELFPAY | PROVIDERS: PCP Emergency Medicine; Visit Provider Physician Assistant | DX: R42 Dizziness and giddiness (principal) | CPT/HCPCS: 93225; 93226 ==

== ENCOUNTER 2020-09-21 10:24 | Day surgery (SDC) | payer OTHER, SELFPAY ==
[2020-09-21 10:57] VITALS: BP 152/60; PULSE 65; RESP 18; TEMP 36.4; O2SAT 100; BMI 17.6
[2020-09-21 11:51] VITALS: BP 122/78; PULSE 85; RESP 18; O2SAT 98
--- NOTE | 2020-09-21 11:58 | HMH.PMPROC ---
- Procedure Date: 09/21/20 Time: 11:58 Anesthesiologist:: Nicolas Miller MD Complications:: None Pre-procedure Diagnosis:: Degenerative disc disease of lumbar spine with lumbar radiculopathy symptoms Post-procedure Diagnosis:: Same Indications for Procedure:: This patient is a pleasant 45-year-old white female who we are treating for low back pain with lumbar radiculopathy symptoms. She has increasing pain into both hips and both legs. Worse on the left side. We will do a lumbar epidural steroid injection today to see if this will help with her pain symptoms. Procedure Details:: Lumbar epidural steroid injection under fluoroscopy Informed consent was obtained and the risk and benefits of the procedure was explained to the patient. The patient was taken to the procedure room. The patient was placed prone on the procedure table. The patient was prepped and draped in sterile fashion. C-arm fluoroscopy was used to view the lumbar spine. Skin and subcutaneous tissues were anesthetized using lidocaine. I placed an 18-gauge epidural needle and advanced into the L4-L5 interspace using fluoroscopic guidance and [id number] to air. After confirmation of needle placement in the epidural space with dye I injected 2 mL of lidocaine 1.5% with Depo-Medrol 80 mg. Patient tolerated the procedure well with no complications. Plan and Disposition:: We will follow-up with her in 2 weeks. Will reevaluate symptoms at that time.
[2020-09-21 12:05] VITALS: BP 150/62; PULSE 61; RESP 18; O2SAT 100
== END 2020-09-21 12:05 | disposition home or self-care (01) ==
LOC: SC.PAINP 10:27
PROVIDERS: PCP Emergency Medicine; Visit Provider Anesthesiology
DX: M51.16 Intervertebral disc disorders with radiculopathy, lumbar region (principal); I25.10 Atherosclerotic heart disease of native coronary artery without angina pectoris; E78.5 Hyperlipidemia, unspecified; I10 Essential (primary) hypertension; R00.2 Palpitations; J45.909 Unspecified asthma, uncomplicated; G43.909 Migraine, unspecified, not intractable, without status migrainosus; I65.29 Occlusion and stenosis of unspecified carotid artery; Z72.0 Tobacco use
CPT/HCPCS: 62323; J1040; Q9966

== ENCOUNTER 2020-09-21 20:17 | Emergency (ER) | payer OTHER, SELFPAY ==
[2020-09-21 20:24] VITALS: BP 178/95; PULSE 85; RESP 16; TEMP 36.6; O2SAT 98; BMI 19.2
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
--- NOTE | 2020-09-21 20:41 | PC.NURSE ---
to radiology at this time
[2020-09-21 21:00] VITALS: BP 169/91; PULSE 88; RESP 17; O2SAT 99
[2020-09-21 21:30] VITALS: BP 177/89; PULSE 84; RESP 17; O2SAT 99
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
--- NOTE | 2020-09-21 21:55 | PC.NURSE ---
call placed to [facility]
[2020-09-21 22:00] VITALS: BP 170/88; PULSE 86; RESP 17; O2SAT 98
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
--- NOTE | 2020-09-21 22:10 | PC.NURSE ---
ACCEPTED TRANSFER TO THE ER.
[2020-09-21 22:22] VITALS: BP 168/75; PULSE 79; RESP 15; TEMP 36.7; O2SAT 98
--- NOTE | 2020-09-21 22:44 | PC.NURSE ---
public affairs officer at bedside
== END 2020-09-21 22:55 | disposition short-term general hospital (02) ==
PROVIDERS: Emergency Provider Family Medicine; PCP Emergency Medicine
DX: S12.601A Unspecified nondisplaced fracture of seventh cervical vertebra, initial encounter for closed fracture (principal); Y04.2XXA Assault by strike against or bumped into by another person, initial encounter; Y92.019 Unspecified place in single-family (private) house as the place of occurrence of the external cause; F17.210 Nicotine dependence, cigarettes, uncomplicated; S50.812A Abrasion of left forearm, initial encounter; S50.811A Abrasion of right forearm, initial encounter; F41.9 Anxiety disorder, unspecified; G43.709 Chronic migraine without aura, not intractable, without status migrainosus; I25.10 Atherosclerotic heart disease of native coronary artery without angina pectoris; J44.9 Chronic obstructive pulmonary disease, unspecified; I10 Essential (primary) hypertension; E78.5 Hyperlipidemia, unspecified; Z88.6 Allergy status to analgesic agent; Z79.899 Other long term (current) drug therapy
CPT/HCPCS: 70450; 71045; 72125; 72170; 96374; 96375; 99283; J2405

== ENCOUNTER → 2020-10-05 13:35 | Outpatient (CLI) | payer OTHER, SELFPAY ==
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
== END ==
PROVIDERS: PCP Emergency Medicine; Visit Provider Physician Assistant
DX: S12.9XXA Fracture of neck, unspecified, initial encounter (principal)
CPT/HCPCS: 77080

== ENCOUNTER → 2020-10-09 09:47 | Outpatient (CLI) | payer OTHER, SELFPAY ==
--- NOTE | 2020-10-09 09:48 | MR_ITS ---
PROCEDURE: MR HEAD/BRAIN WO/W CON CLINICAL INDICATION: headache, daily dizziness HEADACHE AND DIZZINESS. SYMPTOMS X1YR BUT HAS GOTTEN WORSE [id number]. COMPARISON: CT CT HEAD/BRAIN WO CON from 09/21/2020 TECHNIQUE: Routine multiplanar multi echo sequences are performed without and with gadolinium enhancement. FINDINGS: No midline shift, mass effect, intracranial hemorrhage, or hydrocephalus is evident. The cerebellopontine angles, cerebellum, and brainstem have an unremarkable appearance. There are few scattered T2 white matter hyperintensities which are nonspecific. The pituitary, optic chiasm, and corpus callosum have an unremarkable appearance. There is mild cerebellar ectopia of 3 mm. The 4th ventricle has an unremarkable appearance. No enhancing lesions are apparent. No mastoid effusion or sinus air-fluid level. There is a retention cyst in the right maxillary sinus which measures 2.8 cm. IMPRESSION: No acute intracranial findings. There are few scattered T2 white matter hyperintensities which are nonspecific. Differential diagnosis would include ischemic gliotic foci, migraine headache, or demyelinating process which is felt to be less likely due to imaging characteristics. Correlation with clinical parameters needed. Right maxillary sinus retention cyst. Dictated by: Xavi Gaitan MD 10/10/2020 13:44 Xavi Gaitan MD in [place] 10/10/2020 13:44
== END ==
PROVIDERS: PCP Emergency Medicine; Visit Provider Specialist
DX: R51.9 Headache, unspecified (principal); R42 Dizziness and giddiness; G89.29 Other chronic pain
CPT/HCPCS: 70553; A9576

== ENCOUNTER 2020-10-16 11:55 | Emergency (ER) | payer OTHER, SELFPAY ==
[2020-10-16 12:05] VITALS: BP 148/79; PULSE 62; RESP 20; TEMP 36.7; O2SAT 98; BMI 17.2
--- NOTE | 2020-10-16 12:41 | HMH.EDUTC ---
[facility] [place] Clinical Impression: Viral syndrome, Exposure to COVID-19 virus Disposition: Home, Self-Care Condition on Discharge: Good Instructions: Preventing the Spread of Coronavirus Discharge Instructions Additional Instructions: Drink plenty of fluids. Take tylenol for pain or fever. Return if you begin to have difficulty breathing. Follow up with your regular doctor. GO TO THE ER FOR ANY WORSENING SYMPTOMS Referrals: Rodolfo Muhammad MD [Primary Care Provider] - Time of Disposition: 12:45 Medical Decision Making - Medical Records Medical records reviewed: No: I reviewed the patient's medical records. - Wilian Inquiry Pt receiving controlled substance: No Vital Signs: 10/16/20 12:05 10/16/20 13:04 Temperature 98.0 F 98.0 F Temperature Source Oral Oral Pulse Rate 62 Pulse Rate [Radial] 62 Respiratory Rate 20 20 Blood Pressure 148/79 H Blood Pressure [Right Arm] 148/79 H Blood Pressure Mean [Right Arm] 102 Blood Pressure Source Automatic Cuff Blood Pressure Source [Right Arm] Automatic Cuff Blood Pressure Position Sitting Blood Pressure Position [Right Arm] Sitting 02 Sat by Pulse Oximetry 98 Oxygen Delivery Method Room Air Room Air Orders (Tests/Meds): ORDERS Category Date Time Status Covid-19 Nasal PCR ([facility]) Routine Lab 10/16/20 12:01 [place] [facility] [place] - General Stated complaint: covid test Time Seen by Provider: 10/16/20 12:41 Mode of Arrival: Ambulatory Source of Information: Patient Limitations: No Limitations Description of Symptoms (Recalled from Triage Doc. by RN): sore throat, diarrhea, headaches, wants covid test HEENT Symptoms (Recalled from RN notes): Yes Resp Symptoms (Recalled from RN notes): No Skin Symptoms (Recalled from RN notes): No MS Symptoms (Recalled from RN notes): No Functional Status (Recalled from RN notes): wnl - History of Present Illness Provider Complaint: She reports 3 days of feeling bad. Denies fever. - Related Data Home Medications Medication Instructions Recorded Confirmed Cetirizine HCl [Zyrtec] 10 mg PO DAILY 09/21/20 09/27/20 Diclofenac Sodium [Voltaren 2 g TOPICAL QID 09/21/20 09/27/20 Arthritis Pain] Gabapentin [Gabapentin 100mg Cap] 200 mg PO QHS 09/21/20 09/27/20 Nebivolol HCl [Bystolic] 5 mg PO DAILY 09/21/20 09/27/20 Simvastatin 10 mg PO HS 09/21/20 09/27/20 Tizanidine HCl 2 mg PO QHS 09/21/20 09/27/20 lisinopriL [Prinivil 10mg Tablet] 10 mg PO DAILY 09/21/20 09/27/20 acetaminophen 300 mg-codeine 30 mg 1 tab PO BID PRN 09/27/20 09/27/20 tablet trazodone 50 mg tablet 25 mg PO QHS tab 09/27/20 09/27/20 Previous Rx's Medication Instructions Recorded albuterol sulfate 90 mcg/actuation 2 puff INHALATION Q4-6H PRN #6.7 g 07/31/20 aerosol inhaler fluticasone furoate 100 1 inh INHALATION DAILY #28 each 09/25/20 mcg-vilanterol 25 mcg/dose inhalation powder varenicline 0.5 mg (11)-1 mg (42) See Rx Instructions PO PER PKG DIR 09/25/20 tablets in a dose pack #53 tab vortioxetine 10 mg tablet 10 mg PO DAILY #30 tab 10/02/20 alendronate 70 mg tablet 70 mg PO WEEKLY #5 tab 10/08/20 calcium carbonate 500 mg (1,250 1 tab PO DAILY #30 tab 10/08/20 mg)-vitamin D3 400 unit tablet hydrocodone 5 mg-acetaminophen 325 1 tab PO Q8H PRN #42 tab 10/08/20 mg tablet Allergies Allergy/AdvReac Type Severity Reaction Status Date / Time ibuprofen [IBUPROFEN] Allergy Unknown SOB Verified 10/10/20 14:05 tramadol [TRAMADOL] Allergy Unknown HEART RACES Verified 10/10/20 14:05 - Worker's Comp Is this a Worker's Comp case?: No [facility] History - Hepatitis A Screen Drug use history?: No High risk sexual behaviors?: No History of sexually transmitted infection?: No Currently employed?: No Childcare worker?: No Do you have indoor plumbing?: Yes Do you have electricity?: Yes Attestation statement:: This patient has been screened for Hepatitis A risk factors. I have reviewed the patient's pa
[2020-10-16 13:04] VITALS: BP 148/79; PULSE 62; RESP 20; TEMP 36.7; O2SAT 98
== END 2020-10-16 13:04 | disposition home or self-care (01) ==
PROVIDERS: Emergency Provider Nurse Practitioner Family; PCP Emergency Medicine
DX: Z20.828 Contact with and (suspected) exposure to other viral communicable diseases (principal); J02.9 Acute pharyngitis, unspecified; B34.9 Viral infection, unspecified; I10 Essential (primary) hypertension; E78.5 Hyperlipidemia, unspecified; I25.10 Atherosclerotic heart disease of native coronary artery without angina pectoris; F41.9 Anxiety disorder, unspecified; G43.709 Chronic migraine without aura, not intractable, without status migrainosus; Z79.899 Other long term (current) drug therapy
CPT/HCPCS: 99201; U0003

== ENCOUNTER → 2020-10-22 10:19 | Outpatient (POV) | payer OTHER, SELFPAY ==
[2020-10-22 10:39] VITALS: BP 113/85; PULSE 74; RESP 18; TEMP 36.8; O2SAT 97; BMI 34.5
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
== END ==
PROVIDERS: PCP Emergency Medicine; Visit Provider Clinical Nurse Specialist Family Health
DX: M51.16 Intervertebral disc disorders with radiculopathy, lumbar region (principal); S12.9XXA Fracture of neck, unspecified, initial encounter; X58.XXXA Exposure to other specified factors, initial encounter
CPT/HCPCS: 99212

== ENCOUNTER → 2021-03-12 12:52 | Outpatient (CLI) | payer OTHER, SELFPAY ==
--- NOTE | 2021-03-12 13:09 | CA_ITS ---
APPROVED REPORT EXAM: Comprehensive 2D, Doppler, and color-flow Echocardiogram Fleshing Machine Operator: Yumiko Chavis RVT Ht: 5 ft 3 in Wt: 103lbs BSA: 1.46 BP: 175/96 mmHg Indications: SOA,CP,MOD AI,DIZZINESS,SMOKER,HTN 2D Dimensions LVOT 1.74 cm (M/F) 1.5-2.5 LA Volume 20.20 mL LA Volume Index 13.93 mL/m2 (M/F) 16-34 M-Mode Dimensions RVDd 1.39 cm (0.9-2.6) LA Diam 3.18 cm (1.9-4.0) LVDd 4.85 cm (3.5-5.7) Ao Diam 2.83 cm (2.0-3.7) LVDs 3.63 cm (3.5-5.7) IVSd 1.25 cm (0.6-1.1) PWd 0.96 cm (0.6-1.1) EF (Teich) 49.60% FS 25.20% EDV (Teich) 110.20 mL TAPSE 1.87 (<1.7) ESV (Teich) 55.50 mL LV Diastology E Decel Time 303.00 (160-240 msec) E/A Ratio 0.9 MED E' 5.20 (< 7 cm/sec) E'/MED E' Ratio 15.69 (>14) LAT E' 5.50 (<10 cm/sec) E/LAT E' Ratio 14.84 (>14) Aortic Valve AI PHT 643.00 ms Mitral Valve MV E Max Chase. 82.00 (40-130 cm/s) MV A Velocity 94.00 (40-130 cm/s) E/A Ratio 0.87 MV Decel. Time 303.00 (160-240 ms) MV PHT 89.00 ms Pulmonary Valve PV Peak Velocity 74.00 (50-150 cm/s) Tricuspid Valve TR P. Velocity 309.00 cm/s RAP Estimate 10.00 mmHg RVSP 48.20 mmHg Left Ventricle Left atrium is qualitatively mildly enlarged, left ventricle is qualitatively mildly dilated, visually estimated ejection fraction 50% with no obvious regional wall motion abnormality, grade 1 diastolic dysfunction seen with tissue Doppler evidence of raise left atrial pressure. Right Ventricle Right atrium and right ventricle are normal size and contractility. Aortic Valve Aortic valve is thickened and calcified likely bicuspid aortic valve there is no aortic stenosis, there is severe aortic insufficiency. Mitral Valve Mitral valve leaflets are minimally thickened, there is mild mitral regurgitation. Tricuspid Valve Tricuspid grossly normal, there is mild tricuspid regurgitation, tricuspid regurgitation jet velocity is inadequate for calculation of the right ventricular systolic pressure. Pulmonic Valve Pulmonic valve is poorly visualized. Great Vessels Aortic root is normal size. Inferior vena cava is mildly dilated with normal inspiratory collapse. Pericardium No significant pericardial effusion noted. Conclusion 1. Mildly enlarged left atrium, mildly dilated left ventricle, visually estimated ejection fraction 50% with no obvious regional wall motion abnormality, grade 1 diastolic dysfunction seen with tissue Doppler evidence of raise left atrial pressure. 2. Likely bicuspid aortic valve with severe aortic insufficiency. 3. Mild mitral and tricuspid regurgitation. 4. No significant pericardial effusion noted. Electronically signed by : Jaxson Fuentes, 03/12/2021 21:43:16
== END ==
PROVIDERS: PCP Nurse Practitioner Family; Visit Provider Internal Medicine Cardiovascular Disease
DX: R06.02 Shortness of breath (principal); R07.9 Chest pain, unspecified; R42 Dizziness and giddiness; R94.31 Abnormal electrocardiogram [ECG] [EKG]
CPT/HCPCS: 93306

== ENCOUNTER 2022-01-03 01:13 | Emergency (ER) | payer OTHER, SELFPAY ==
[2022-01-03 01:05] VITALS: BP 126/80; PULSE 66; RESP 16; TEMP 36.5; O2SAT 98; BMI 18.0
--- NOTE | 2022-01-03 01:12 | ECG_ITS ---
APPROVED REPORT Exam: Resting ECG HR:84 bpm ECG Measurements Heart Rate 84 AXES WV 137 P 63 QRSd 82 QRS 50 QT 415 T 66 QTc 456 Conclusion SINUS RHYTHM NORMAL ECG UNCONFIRMED REPORT Electronically signed by : Eleuterio Avila MD 01/03/2022 09:37:19
--- NOTE | 2022-01-03 01:25 | XR_ITS ---
PROCEDURE INFORMATION: Exam: XR Chest Exam date and time: 01/03/2022 1:25 AM Age: 46 years old Clinical indication: Sternal or substernal pain; Prior surgery; Additional info: Cp TECHNIQUE: Imaging protocol: XR of the chest. Views: 1 view. COMPARISON: CR XR CHEST AP 09/21/2020 8:51 PM FINDINGS: Lungs: Calcified granuloma at the right lung base. No consolidation. Pleural spaces: No pleural effusion. No pneumothorax. Heart/Mediastinum: Normal heart size. Left atrial appendage occlusion device. Cardiac valve prosthesis. Bones/joints: Sternotomy wires. Bones appear osteopenic. Scoliosis, dextroconvex at the thoracic levels. IMPRESSION: No acute finding.
[2022-01-03 01:32] LABS: Microscopic, Urine URINE MICROSCOPIC (MICROSCOPIC)
[2022-01-03 01:35] LABS: Appearance,Urine CLEAR (Clear); Bilirubin,Urine Negative (Negative); Blood, Urine TRACE-I (Negative); Color,Urine YELLOW (Yellow); Glucose,Urine (UA) Negative (Negative); Ketones,Urine Negative (Negative); Leukocyte Esterase,Urine Negative (Negative); Nitrate,Urine Negative (Negative); Protein,Urine Negative (Negative); Specific Gravity, Urine 1.015 (1.005-1.030); Urobilinogen,Urine 0.2 EU/dl (0.2)
[2022-01-03 01:40] LABS: Basophils # 0.2 K/mm3 (0-0.2); Basophils % 1.4 % (0.1-2.0); Eosinophils # 0.4 K/mm3 (0.0-0.4); Eosinophils % 3.2 % (0.1-12.0); Hematocrit 47.3 % (37.0-47.0); Lymphocytes # 3.8 K/mm3 (0.7-4.5); Lymphocytes % 28.2 % (10-50); Magnesium 1.9 mg/dl (1.6-2.3); Mean Corpuscular HGB Conc 31.7 g/dL (31.8-35.4); Mean Corpuscular Hemoglobin 30.8 pg (27.0-31.2); Mean Corpuscular Volume 97.1 fl (81-99); Mean Platelet Volume 8.4 fl (7.4-10.4); Monocytes # 0.8 K/mm3 (0.1-1.0); Monocytes % 6.1 % (1.7-9.3); Neutrophils # 8.3 K/mm3 (1.8-7.8); Neutrophils % 61.1 % (37.0-80.0); Platelet Count 296 K/mm3 (142-424); Red Blood Count 4.87 M/mm3 (4.20-5.40); Red Cell Distribution Width 13.8 % (11.5-17.5); White Blood Count 13.5 K/mm3 (4.8-10.8)
[2022-01-03 01:41] LABS: Alanine Aminotransferase 12 U/L (12-78); Albumin Level 4.3 g/dl (3.5-5.0); Alkaline Phosphatase 103 U/L (38-126); Anion Gap 13.8 mEq/L (5-15); Aspartate Amino Transferase 26 U/L (14-36); Bilirubin,Direct 0.2 mg/dl (0.0-0.4); Bilirubin,Indirect 0.1 mg/dL (0.0-0.9); Bilirubin,Total 0.3 mg/dl (0.2-1.3); Bilirubin,Unconjugated 0.2 mg/dL (0.0-1.1); Blood Urea Nitrogen 10 mg/dl (7-17); Calcium 9.3 mg/dl (8.4-10.2); Carbon Dioxide 22 mmol/L (22.0-30.0); Chloride 107 mmol/L (98-107); Creatinine Clearance Estimated 108 mL/min (50-200); Estimated Glomerular Filt Rate 134 ml/min (>60); GFR (African American) 162 ML/MIN (>60); Glucose 135 mg/dl (74-100); Potassium 3.8 mmoL/L (3.5-5.1); Sodium 139 mmol/L (136-145); Total Protein,Serum 7.1 g/dl (6.3-8.2)
[2022-01-03 01:46] LABS: Acetaminophen < 10 ug/ml (10-30); Salicylate < 1.0 mg/dL (2.0-20.0)
[2022-01-03 01:58] LABS: Procalcitonin 0.055 ng/mL (0.0-2.0)
[2022-01-03 01:59] LABS: Troponin I < 0.01 ng/ml (0.00-0.034)
[2022-01-03 02:00] VITALS: BP 121/76; PULSE 60; RESP 16; O2SAT 100
[2022-01-03 02:25] LABS: Ethyl Alcohol 227 mg/dl (0-10)
[2022-01-03 02:29] LABS: Erythrocyte Sedimentation Rate 12 mm/hr (0-20)
[2022-01-03 02:30] LABS: Amphetamine/Metha Screen,Urine Negative ng/ml (<1000)
[2022-01-03 02:31] LABS: Barbiturates Screen,Urine Negative ng/ml (<200)
[2022-01-03 02:32] LABS: Benzodiazepines Screen,Urine Negative ng/ml (<200); Cannabinoid Screen,Urine Negative ng/ml (<50)
[2022-01-03 02:33] LABS: Cocaine Screen,Urine Negative ng/ml (<300)
[2022-01-03 02:34] LABS: Methadone Screen,Urine Negative ng/ml (<300); Phencyclidine Screen,Urine Negative ng/ml (<25)
[2022-01-03 02:35] LABS: Opiate Screen,Urine Negative ng/ml (<300)
[2022-01-03 02:38] LABS: Bacteria,Urine 1+ /lpf
[2022-01-03 02:46] LABS: INR 1.77 (0.9-1.1); Prothrombin Time 19.2 seconds (10.1-12.5)
--- NOTE | 2022-01-03 03:15 | HMH.EDCP ---
ED Disposition Clinical Impression: H/O aortic valve replacement Alcoholic intoxication Qualifiers: Complication of substance-induced condition: with unspecified complication Qualified Code(s): F10.929 - Alcohol use, unspecified with intoxication, unspecified Disposition: Home, Self-Care Condition on Discharge: Good Instructions: DI for Alcohol Use Disorder Additional Instructions: call pcp this am to discuss coumadin Referrals: Rodolfo Muhammad MD [Emergency Provider] - - Critical Care Critical Care Time: No Attestation: On 01/03/22, the high probability of a clinically significant, sudden or life threatening deterioration of the following system(s) required my full and direct attention, intervention and personal management. The time I documented below is in addition to time spent performing reported procedures but includes the following listed in this critical care notation. Medical Decision Making - Medical Records Medical records reviewed: Yes: I reviewed the patient's medical records. - Wilian Inquiry Pt receiving controlled substance: No Vital Signs: 01/03/22 01:05 01/03/22 02:00 Temperature 97.7 F Temperature Source Oral Pulse Rate 60 Pulse Rate [Right Radial] 66 Respiratory Rate 16 16 Blood Pressure 121/76 Blood Pressure [Right Arm] 126/80 Blood Pressure Mean 93 Blood Pressure Mean [Right Arm] 95 Blood Pressure Source [Right Arm] Automatic Cuff Blood Pressure Position [Right Arm] Sitting 02 Sat by Pulse Oximetry 98 100 Oxygen Delivery Method Room Air - Lab Data Lab results reviewed: Yes: I reviewed the patient's lab results. Lab Results 01/03/22 01:15: Sodium 139, Potassium 3.8, Chloride 107, Carbon Dioxide 22, Anion Gap 13.8, BUN 10, Creatinine 0.50 L, Estimated Creat Clear 108, Estimated GFR 134, Est GFR ( Amer) 162, Glucose 135 H, Calcium 9.3, Total Bilirubin 0.3, Direct Bilirubin 0.2, Conjugated Bilirubin 0.0, Indirect Bilirubin 0.1, Unconjugated Bilirubin 0.2, AST 26, ALT 12, Alkaline Phosphatase 103, Troponin I < 0.01, Total Protein 7.1, Albumin 4.3, Salicylates < 1.0 L, Acetaminophen < 10 L 01/03/22 01:15: Procalcitonin 0.055 01/03/22 01:15: WBC 13.5 H, RBC 4.87, Hgb 15.0, Hct 47.3 H, MCV 97.1, MCH 30.8, MCHC 31.7 L, RDW 13.8, Plt Count 296, MPV 8.4, Neut % (Auto) 61.1, Lymph % (Auto) 28.2, [place] % (Auto) 6.1, Eos % (Auto) 3.2, Baso % (Auto) 1.4, Neut # (Auto) 8.3 H, Lymph # (Auto) 3.8, [place] # (Auto) 0.8, Eos # (Auto) 0.4, Baso # (Auto) 0.2 01/03/22 01:15: Magnesium 1.9 01/03/22 01:15: ESR 12 01/03/22 01:15: Plasma/Serum Alcohol 227 H 01/03/22 01:15: PT 19.2 H, INR 1.77 H 01/03/22 01:24: Urine Color Yellow, Urine Appearance Clear, Urine pH 6.0, Ur Specific [place] 1.015, Urine Protein Negative, Urine Glucose (UA) Negative, Urine Ketones Negative, Urine Blood Trace-i, Urine Nitrate Negative, Urine Bilirubin Negative, Urine Urobilinogen 0.2, Ur Leukocyte Esterase Negative, Urine WBC 3-5, Ur Squamous Epith Cells 10-20, Urine Bacteria 1+ 01/03/22 01:24: Urine Opiates Screen Negative, Urine Methadone Screen Negative, Ur Barbituates Screen Negative, Ur Phencyclidine Scrn Negative, Ur Amphetamines Screen Negative, U Benzodiazepines Scrn Negative, Urine Cocaine Screen Negative, U Marijuana (THC) Screen Negative 01/03/22 04:20: Troponin I < 0.01 Result diagrams: 01/03/22 01:15 01/03/22 01:15 Orders (Tests/Meds): ED MEDICATIONS Generic Name Dose Route Start Last Admin Trade Name Freq PRN Reason Stop Dose Admin Sodium Chloride 1,000 mls @ 999 mls/hr 01/03/22 01:30 01/03/22 01:27 Sod Chlor 0.9% 1000ml Bag IV 01/03/22 02:30 999 mls/hr .[id number] EVAN Administration Multivitamins 10 ml/ Thiamine 1,015 mls @ 150 mls/hr 01/03/22 02:00 01/03/22 02:01 HCl 100 mg/ Magnesium Sulfate IV 01/03/22 08:45 150 mls/hr 2 gm/ Lactated Ringer's .[id number] EVAN Administration Discontinued Medications Generic Name Dose Route Start Last Admin Trade Name Freq PRN Reason Stop
[2022-01-03 04:55] LABS: Troponin I < 0.01 ng/ml (0.00-0.034)
[2022-01-03 05:07] VITALS: BP 94/53; PULSE 59; RESP 16; TEMP 36.5; O2SAT 99
== END 2022-01-03 05:09 | disposition home or self-care (01) ==
PROVIDERS: Emergency Provider Emergency Medicine; PCP Nurse Practitioner Family
DX: F10.129 Alcohol abuse with intoxication, unspecified (principal); R07.9 Chest pain, unspecified; Z95.2 Presence of prosthetic heart valve
CPT/HCPCS: 71045; 80048; 80076; 80305; 80329; 81001; 83735; 84145; 84484; 85025; 85610; 85651; 93005; 96365; 96367; 99283; J2405

== ENCOUNTER → 2022-07-28 13:20 | Outpatient (CLI) | payer OTHER, SELFPAY ==
--- NOTE | 2022-07-28 13:23 | US_ITS ---
FINAL REPORT CLINICAL HISTORY: Pelvic Pain FINDINGS: Transvaginal sonographic images of the pelvis were obtained. The uterus and ovaries are not identified consistent with the history of hysterectomy. There is no mass or fluid collection. IMPRESSION: No mass or fluid collection. Reviewed, Interpreted and Dictated by Jefe Rashid III, MD Transcribed by Blair Monreal Authenticated and [facility]
== END ==
PROVIDERS: PCP Nurse Practitioner Family; Visit Provider Obstetrics & Gynecology
DX: R10.2 Pelvic and perineal pain (principal)
CPT/HCPCS: 76830

== ENCOUNTER 2022-07-29 08:18 | Emergency (ER) | payer OTHER, SELFPAY ==
[2022-07-29 09:50] VITALS: BP 151/91; PULSE 63; RESP 18; TEMP 36.6; O2SAT 100; BMI 18.9
[2022-07-29 10:19] LABS: UTC Strep Screen (Rapid) Negative (Negative)
--- NOTE | 2022-07-29 10:29 | EXP.UTC ---
Discharge Plan Disposition Patient Disposition: Home, Self-Care Condition: Good Prescriptions Prescriptions: New cefdinir 300 mg capsule 300 mg PO BID Qty: 20 0RF No Action albuterol sulfate 90 mcg/actuation HFA aerosol inhaler 2 puff INHALATION Q4-6H PRN (Reason: shortness of breath or wheezing) Qty: 6.7 0RF fluticasone propionate 50 mcg/actuation spray,suspension 1 spray INTRANASAL DAILY Label Comments: USE 1 SPRAY IN EACH NOSTRIL DAILY atorvastatin 20 mg tablet 20 mg PO DAILY clonazepam [Klonopin] 0.5 mg tablet See Rx Instructions PO BID PRN (Reason: anxiety) Qty: 60 1RF Rx Instructions: take 1/2 to 1 tablet PO twice a day PRN; levocetirizine 5 mg tablet 5 mg PO DAILY metoprolol tartrate 50 mg tablet 50 mg PO BID Label Comments: TAKE 1 TABLET BY MOUTH EVERY 12 HOURS Premarin 0.625 mg/gram cream 0.625 mg VG DAILY Qty: 30 11RF metronidazole 0.75 % gel 1 appful vaginal DAILY 7 Days Qty: 70 0RF warfarin 5 MG tablet 5 mg PO DAILY alendronate 70 MG tablet 70 mg PO WEEKLY omeprazole 40 MG capsule,delayed release(DR/EC) 40 mg PO DAILY calcium carbonate-vitamin D3 1 EACH tablet 1 tab PO DAILY Referrals Follow up/Referrals: Georgette Moore [Primary Care Provider] - See instructions Activity Restrictions/Add. Instructions Additional Instructions/Restrictions: *Monitor Temp, Over the counter Motrin or Tylenol as directed/as needed Tylenol every 4 hours and Motrin every 6 hours (as long as your family doctor has told you that you can take it) for fever or pain. and straight to ER if unable to lower temp less than 101.0 after medication given *Warm salt water gargles may help to soothe the throat *Throat Lozenges? *Warm fluids like tea with honey may help to soothe the throat? *Sleep elevated *Humidifier/Vaporizer *If you did not take Penicillin shot or was unable to, start taking antibiotic immediately and make sure that you take it for the FULL length of time although you should start to feel better in 24-48 hours *change toothbrush and toothpaste 24-48 hours after starting to take antibiotics so you do not reinfect yourself Monitor Temp. Tylenol and/or Ibuprofen as needed. ER if fever is no less than 101 despite alternating Tylenol and Ibuprofen * Encourage fluids, water, Gatorade, powerade, pedialyte if /toddler/or child *Cold fluids, popsicles and ice cream may feel good on his throat Follow up IMMEDIATELY for new or worsening symptoms or no Noticeable improvement over the next 48-72 hours. 911 for difficulty breathing or swallowing Make sure to let your Family Doctor that you are on Antibiotics they may need to adjust your Warfarin You were tested for today for COVID19 your test result should be back in the next 24-48 hours, you may check your results on the [facility] My Health Portal Make sure to take your Vitamins Vit. C Vit D and Zinc if you can take them Clinical Impressions Clinical Impression: URI (upper respiratory infection) Stand Alone Forms Stand Alone Forms: Work/School Release Instructions Patient Instructions: DI for Strep Throat Discharge ED Provider: Rika Skinner [facility] [place] HPI General Stated complaint: Body aches, sinus Mode of Arrival: Ambulatory Source of Information: Patient Limitations: No Limitations Time Seen by Provider: 07/29/22 10:29 Description of Symptoms (Recalled from Triage Doc. by RN): PATIENT C/O BODY ACHES, HEADACHE, SORE THROAT, RUNNY NOSE AND DIARRHEA HEENT Symptoms (Recalled from RN notes): Yes Resp Symptoms (Recalled from RN notes): No Skin Symptoms (Recalled from RN notes): No MS Symptoms (Recalled from RN notes): No Functional Status (Recalled from RN notes): WNL History of Present Illness Provider Complaint: Patient state that she hasnt felt well for several days States that son is sick with similar symptoms but she has been around someone at work
[2022-07-29 10:35] VITALS: BP 151/91; PULSE 63; RESP 18; TEMP 36.6; O2SAT 100
[2022-07-29 11:02] LABS: Adenovirus,PCR Not Detected (NotDetected); Bordetella Pertussis Not Detected (NotDetected); Chlamydophila Pneumoniae, PCR Not Detected (NotDetected); Coronavirus 19, PCR Not Detected (NotDetected); Coronavirus 229E Not Detected (NotDetected); Coronavirus NL63 Not Detected (NotDetected); Coronavirus OC43 Not Detected (NotDetected); Coronovirus HKU1,PCR Not Detected (NotDetected); Human Metapneumovirus Not Detected (NotDetected); Influenza A, PCR Not Detected (NotDetected); Influenza AH1, 2009 Not Detected (NotDetected); Influenza AH1, PCR Not Detected (NotDetected); Influenza AH3,PCR Not Detected (NotDetected); Influenza B, PCR Not Detected (NotDetected); Mycoplasma Pneumoniae, PCR Not Detected (NotDetected); Parainfluenza 1, PCR Not Detected (NotDetected); Parainfluenza 2, PCR Not Detected (NotDetected); Parainfluenza 3, PCR Not Detected (NotDetected); Parainfluenza 4, PCR Not Detected (NotDetected); Respiratory Syncytial Virus Not Detected (NotDetected)
[2022-07-30 20:31] LABS: Rhinovirus/Enterovirus Detected (NotDetected)
== END 2022-07-29 10:40 | disposition home or self-care (01) ==
PROVIDERS: Emergency Provider Nurse Practitioner; PCP Nurse Practitioner Family
DX: J06.9 Acute upper respiratory infection, unspecified (principal)
CPT/HCPCS: 87581; 87632; 87798; 87880; 99212; C9803; G0463; U0003; U0005

== ENCOUNTER 2022-10-28 14:38 | Emergency (ER) | payer OTHER, SELFPAY ==
[2022-10-28] VITALS (7 sets, daily range): BP systolic 99–136; BP diastolic 62–92; PULSE 65–75; RESP 12–18; TEMP 37.1; O2SAT 94–100; BMI 17.6
--- NOTE | 2022-10-28 14:38 | XR_ITS ---
FINAL REPORT CLINICAL HISTORY: chest pain, cough COMPARISON: 01/03/2022 FINDINGS: The heart size is normal. The patient is status post aortic valve replacement with left atrial appendage clip. There is no focal infiltrate or edema. There are no pleural effusions. There is no pneumothorax. There is moderate S-shaped scoliosis. IMPRESSION: No acute cardiopulmonary process Reviewed, Interpreted and Dictated by Nitish Matthews MD Transcribed by Alicia Sepulveda Authenticated and [facility]
--- NOTE | 2022-10-28 14:44 | ECG_ITS ---
APPROVED REPORT Exam: Resting ECG HR:64 bpm ECG Measurements Heart Rate 64 AXES MN 160 P 71 QRSd 81 QRS 52 QT 417 T 25 QTc 427 Conclusion SINUS RHYTHM Left atrial abnormality MODERATE T-WAVE ABNORMALITY, CONSIDER ANTEROLATERAL ISCHEMIA [-0.1+ mV T-WAVE IN V3-V6] ABNORMAL ECG UNCONFIRMED REPORT Electronically signed by : Eleuterio Avila MD 10/28/2022 20:18:49
--- NOTE | 2022-10-28 15:00 | PC.NURSE ---
Lab unable to stick patient, she was going to send another laboratory aide down to try
--- NOTE | 2022-10-28 15:05 | HMH.EDGENADL ---
Discharge Plan Disposition Patient Disposition: Home, Self-Care Condition: Fair Prescriptions Prescriptions: New oseltamivir [Tamiflu] 75 mg capsule 75 mg PO BID 5 Days Qty: 10 0RF guaifenesin 200 mg/5 mL liquid 200 mg PO Q6H PRN (Reason: congestion) Qty: 118 0RF No Action albuterol sulfate 90 mcg/actuation HFA aerosol inhaler 2 puff INHALATION Q4-6H PRN (Reason: shortness of breath or wheezing) Qty: 6.7 0RF fluticasone propionate 50 mcg/actuation spray,suspension 1 spray INTRANASAL DAILY Label Comments: USE 1 SPRAY IN EACH NOSTRIL DAILY atorvastatin 20 mg tablet 20 mg PO DAILY levocetirizine 5 mg tablet 5 mg PO DAILY metoprolol tartrate 50 mg tablet 50 mg PO BID Label Comments: TAKE 1 TABLET BY MOUTH EVERY 12 HOURS Premarin 0.625 mg/gram cream 0.625 mg VG DAILY Qty: 30 11RF clonazepam [Klonopin] 0.5 mg tablet See Rx Instructions PO BID PRN (Reason: anxiety) Qty: 60 1RF Rx Instructions: take 1/2 to 1 tablet PO twice a day PRN; metronidazole 500 mg tablet 500 mg PO BID 7 Days Qty: 14 0RF fluconazole [Diflucan] 150 mg tablet 150 mg PO ONCE Qty: 2 0RF Rx Instructions: may repeat second dose 72 hrs after first dose if symptoms persist metronidazole 0.75 % (37.5mg/5 gram) gel 1 appful vaginal DAILY 7 Days Qty: 70 0RF warfarin 5 MG tablet 5 mg PO DAILY alendronate 70 MG tablet 70 mg PO WEEKLY omeprazole 40 MG capsule,delayed release(DR/EC) 40 mg PO DAILY calcium carbonate-vitamin D3 1 EACH tablet 1 tab PO DAILY cefdinir 300 mg capsule 300 mg PO BID Qty: 20 0RF Referrals Follow up/Referrals: Georgette Moore [Primary Care Provider] - See instructions Activity Restrictions/Add. Instructions Additional Instructions/Restrictions: You have been evaluated for cough, chest pain, generalized malaise. Your influenza A test is positive. Please take Tylenol and Motrin for aches, pains, fever. Stay hydrated. Follow-up with your primary care doctor in 1 to 2 days for symptom recheck. Take Tamiflu. Return to the emergency department at once for any new or worsening symptoms, difficulty breathing or other concerns Clinical Impressions Clinical Impression: Influenza A Instructions Patient Instructions: DI for Influenza -- Adult Discharge ED Provider: Pham Vivas Adult HPI General Chief complaint: Chest Pain Stated complaint: Weakness Time Seen by Provider: 10/28/22 14:40 Mode of Arrival: Ambulatory Source of Information: Patient Limitations: No Limitations Description of Symptoms (Recalled from ER Triage Doc. by RN): c/o chest pain that started today and feels real tight with n/v History of Present Illness HPI narrative: 47-year-old female presenting to the emergency department with chest pain. Pain started earlier today. Feels like a tightness in her chest. Located in the front. Constant. No radiation to the jaw, arm, back. No recent exertional symptoms. She feels generally unwell, cough, nausea, fatigue. No diaphoresis or shorntness of breath. She has a history of aortic valve replacement 1 year ago at [facility]. Says she is taking all medications as prescribed. Takes blood pressure medicine. Denies fevers, chills, known sick exposure. No medications prior to arrival. Called 911 today. Related Data Home Medications Medication Instructions Recorded Confirmed fluticasone propionate 50 1 spray intranasal DAILY Allergy 12/24/20 10/20/22 mcg/actuation nasal symptoms spray,suspension atorvastatin 20 mg tablet 20 mg PO DAILY High cholesterol 03/14/21 10/20/22 alendronate 70 mg tablet 70 mg PO WEEKLY . 01/03/22 10/20/22 calcium carbonate 500 mg-vitamin 1 tab PO DAILY Supplement 01/03/22 10/20/22 D3 10 mcg (400 unit) tablet omeprazole 40 mg capsule,delayed 40 mg PO DAILY GERD 01/03/22 10/20/22 release warfarin 5 mg tablet 5 mg PO DAILY Blood thinner
[2022-10-28 15:11] LABS: Coronavirus 19, PCR Not Detected (NotDetected); Influenza B, PCR Not Detected (NotDetected)
--- NOTE | 2022-10-28 15:14 | PC.NURSE ---
Amado with lab at [facility] to draw blood. Son at [facility] as well
[2022-10-28 15:40] LABS: Basophils # 0.1 K/mm3 (0-0.2); Basophils % 0.4 % (0.1-2.0); Eosinophils # 0.3 K/mm3 (0.0-0.4); Eosinophils % 2.4 % (0.1-12.0); Hematocrit 47.6 % (37.0-47.0); Hemoglobin 14.8 g/dL (12.2-16.2); Lymphocytes # 1.2 K/mm3 (0.7-4.5); Lymphocytes % 7.9 % (10-50); Mean Corpuscular HGB Conc 31.1 g/dL (31.8-35.4); Mean Corpuscular Hemoglobin 30.7 pg (27.0-31.2); Mean Corpuscular Volume 98.7 fl (81-99); Mean Platelet Volume 9.7 fl (7.4-10.4); Monocytes # 0.2 K/mm3 (0.1-1.0); Monocytes % 1.1 % (1.7-9.3); Neutrophils # 12.7 K/mm3 (1.8-7.8); Neutrophils % 88.3 % (37.0-80.0); Platelet Count 191 K/mm3 (142-424); Red Blood Count 4.82 M/mm3 (4.20-5.40); Red Cell Distribution Width 13.4 % (11.5-17.5); White Blood Count 14.4 K/mm3 (4.8-10.8)
[2022-10-28 15:41] LABS: MANUAL DIFFERENTIAL MANUAL DIFFERENTIAL (MANUAL DIFF)
[2022-10-28 15:53] LABS: Chloride 104 mmol/L (98-107)
[2022-10-28 15:54] LABS: Influenza A, PCR Detected (NotDetected)
[2022-10-28 15:54] LABS: Potassium 3.8 mmoL/L (3.5-5.1); Sodium 136 mmol/L (136-145)
[2022-10-28 15:57] LABS: Alanine Aminotransferase 75 U/L (12-78); Albumin Level 4.2 g/dl (3.5-5.0); Albumin/Globulin Ratio 1.4 (1.1-1.8); Alkaline Phosphatase 145 U/L (38-126); Anion Gap 11.8 mEq/L (5-15); Aspartate Amino Transferase 207 U/L (14-36); Bilirubin,Total 1.1 mg/dl (0.2-1.3); Blood Urea Nitrogen 6 mg/dl (7-17); Calcium 9.1 mg/dl (8.4-10.2); Carbon Dioxide 24 mmol/L (22.0-30.0); Creatinine Clearance Estimated 75 mL/min (50-200); Estimated Glomerular Filt Rate 90 ml/min (>60); GFR (African American) 109 ML/MIN (>60); Glucose 125 mg/dl (74-100); Lipase 232 U/L (23-300); Total Protein,Serum 7.2 g/dl (6.3-8.2)
[2022-10-28 16:06] LABS: NT Pro Brain Natriuretic Pep. 133 pg/mL (0-125)
[2022-10-28 16:20] LABS: Lymphocytes % 11 % (10-50); Monocytes % 1 % (2-9); Neutrophils % 88 % (42-76); Platelet Estimate Normal; RBC Morphology Normal; Total Cells Counted 100; Troponin I < 0.01 ng/ml (0.00-0.034)
--- NOTE | 2022-10-28 16:52 | PC.NURSE ---
contacted william for claudia on pt.
--- NOTE | 2022-10-28 17:14 | PC.NURSE ---
LAB HERE FOR REPEAT TROP
--- NOTE | 2022-10-28 17:27 | PC.NURSE ---
PT EATING A SUPPER TRAY
== END 2022-10-28 17:47 | disposition home or self-care (01) ==
PROVIDERS: Emergency Provider Emergency Medicine; PCP Nurse Practitioner Family
DX: J10.1 Influenza due to other identified influenza virus with other respiratory manifestations (principal); R07.9 Chest pain, unspecified; R94.31 Abnormal electrocardiogram [ECG] [EKG]; R06.02 Shortness of breath; R11.2 Nausea with vomiting, unspecified; R53.81 Other malaise; Z20.822 Contact with and (suspected) exposure to COVID-19; I45.10 Unspecified right bundle-branch block; I65.29 Occlusion and stenosis of unspecified carotid artery; I20.9 Angina pectoris, unspecified; F41.1 Generalized anxiety disorder; F17.210 Nicotine dependence, cigarettes, uncomplicated; Z79.01 Long term (current) use of anticoagulants; Z79.51 Long term (current) use of inhaled steroids; Z79.899 Other long term (current) drug therapy; Z88.6 Allergy status to analgesic agent; Z95.2 Presence of prosthetic heart valve
CPT/HCPCS: 36415; 71045; 80053; 83690; 83880; 84484; 85007; 85025; 93005; 99284; C9803; U0003; U0005

== ENCOUNTER → 2023-01-12 15:09 | Outpatient (CLI) | payer OTHER, SELFPAY ==
[2023-01-12 16:04] LABS: Basophils # 0.1 K/mm3 (0-0.2); Basophils % 1.1 % (0.1-2.0); Eosinophils # 0.8 K/mm3 (0.0-0.4); Eosinophils % 6.3 % (0.1-12.0); Hematocrit 52.2 % (37.0-47.0); Hemoglobin 16.9 g/dL (12.2-16.2); Lymphocytes % 23.5 % (10-50); Mean Corpuscular HGB Conc 32.4 g/dL (31.8-35.4); Mean Corpuscular Volume 95.7 fl (81-99); Mean Platelet Volume 8.2 fl (7.4-10.4); Monocytes # 0.6 K/mm3 (0.1-1.0); Monocytes % 4.7 % (1.7-9.3); Neutrophils # 8.2 K/mm3 (1.8-7.8); Neutrophils % 64.5 % (37.0-80.0); Platelet Count 299 K/mm3 (142-424); Red Blood Count 5.46 M/mm3 (4.20-5.40); White Blood Count 12.7 K/mm3 (4.8-10.8)
[2023-01-12 16:09] LABS: INR 1.15 (0.9-1.1); Prothrombin Time 12.3 seconds (10.1-12.5)
[2023-01-12 17:06] LABS: Free T4 (Free Thyroxine) 1.02 ng/dl (0.78-2.19)
[2023-01-12 17:30] LABS: Alanine Aminotransferase 18 U/L (12-78); Albumin Level 4.8 g/dl (3.5-5.0); Albumin/Globulin Ratio 1.6 (1.1-1.8); Alkaline Phosphatase 105 U/L (38-126); Anion Gap 9.9 mEq/L (5-15); Aspartate Amino Transferase 28 U/L (14-36); Bilirubin,Total 0.5 mg/dl (0.2-1.3); Blood Urea Nitrogen 9 mg/dl (7-17); Calcium 9.2 mg/dl (8.4-10.2); Carbon Dioxide 26 mmol/L (22.0-30.0); Chloride 104 mmol/L (98-107); Cholesterol 167 mg/dl (140-200); Estimated Glomerular Filt Rate 90 ml/min (>60); GFR (African American) 109 ML/MIN (>60); Glucose 117 mg/dl (74-100); HDL Cholesterol 42 mg/dl (40-60); Potassium 3.9 mmoL/L (3.5-5.1); Sodium 136 mmol/L (136-145); Total Protein,Serum 7.8 g/dl (6.3-8.2); Triglycerides 115 mg/dl (30-150); VLDL Cholesterol 23 mg/dL (0-40)
[2023-01-12 17:42] LABS: Direct LDL Cholesterol 101.66 mg/dL (100-129)
[2023-01-12 18:00] LABS: Thyroid Stimulating Hormone 1.36 uIU/mL (0.465-4.68)
== END ==
PROVIDERS: PCP Emergency Medicine; Visit Provider Emergency Medicine
DX: E03.9 Hypothyroidism, unspecified (principal); R53.83 Other fatigue; Z95.2 Presence of prosthetic heart valve; K59.00 Constipation, unspecified
CPT/HCPCS: 36415; 80053; 80061; 82306; 84439; 84443; 85025; 85610

== ENCOUNTER 2023-01-19 13:18 | Outpatient (CLI) | payer OTHER, SELFPAY ==
[2023-01-19 13:48] LABS: PHA INR Fingerstick 2.2 (0.9-1.1)
== END 2023-01-19 13:52 ==
LOC: ACC 13:19
PROVIDERS: PCP Emergency Medicine; Visit Provider Emergency Medicine
DX: Z51.81 Encounter for therapeutic drug level monitoring (principal); Z79.01 Long term (current) use of anticoagulants; Z95.2 Presence of prosthetic heart valve
CPT/HCPCS: 85610; G0463

== ENCOUNTER → 2023-01-20 15:45 | Outpatient (CLI) | payer OTHER, SELFPAY ==
--- NOTE | 2023-01-20 15:50 | MR_ITS ---
PROCEDURE INFORMATION: Exam: MR Lumbar Spine Without Contrast Exam date and time: 01/20/2023 4:06 PM Age: 47 years old Clinical indication: Low back pain; Additional info: Low back pain. With left leg pain. Weakness in legs. Burning sensation in lower legs. TECHNIQUE: Imaging protocol: Magnetic resonance imaging of the lumbar spine without contrast. COMPARISON: CR XR LUMBAR SPINE MIN 4V 08/23/2020 2:32 PM FINDINGS: Bones/joints: Moderate levoconvex scoliosis of the lumbar spine is present. An incidental hemangioma is present in the left lateral aspect of the T11 vertebral body. No acute lumbar spine fracture is seen. Spinal cord: Visualized cord, conus medullaris and cauda equina are unremarkable without compression. L1-L2: No significant disc disease. No significant spinal stenosis or neural foraminal narrowing. L2-L3: No significant disc disease. No significant spinal stenosis or neural foraminal narrowing. L3-L4: No significant disc disease.No significant spinal stenosis or neural foraminal narrowing. L4-L5: There is mild diffuse circumferential disc bulging and facet arthropathy. This is causing mild bilateral foraminal stenosis. There is no significant spinal canal stenosis. L5-S1: There is mild diffuse circumferential disc bulging with a superimposed shallow left subarticular and foraminal disc protrusion. Mild facet arthropathy is also present. This is causing minimal narrowing of the left subarticular recess and left neural foramina. There is no significant spinal canal or right foraminal stenosis. Soft tissues: Unremarkable. IMPRESSION: 1. No acute abnormality. 2. Chronic findings as discussed above.
== END ==
PROVIDERS: PCP Emergency Medicine; Visit Provider Emergency Medicine
DX: M54.50 Low back pain, unspecified (principal)
CPT/HCPCS: 72148; 76376

== ENCOUNTER 2023-02-02 12:58 | Outpatient (CLI) | payer OTHER, SELFPAY ==
[2023-02-02 13:27] LABS: PHA INR Fingerstick 1.3 (0.9-1.1)
== END 2023-02-02 13:29 ==
LOC: ACC 12:58
PROVIDERS: PCP Emergency Medicine; Visit Provider Emergency Medicine
DX: Z51.81 Encounter for therapeutic drug level monitoring (principal); Z79.01 Long term (current) use of anticoagulants
CPT/HCPCS: 85610; 99211; G0463

== ENCOUNTER 2023-02-06 12:46 | Outpatient (CLI) | payer OTHER, SELFPAY ==
[2023-02-06 13:56] LABS: PHA INR Fingerstick 2.7 (0.9-1.1)
== END 2023-02-06 13:59 ==
LOC: ACC 12:47
PROVIDERS: PCP Emergency Medicine; Visit Provider Emergency Medicine
DX: Z51.81 Encounter for therapeutic drug level monitoring (principal); Z79.01 Long term (current) use of anticoagulants
CPT/HCPCS: 85610; 99211; G0463

== ENCOUNTER 2023-03-02 13:42 | Outpatient (CLI) | payer OTHER, SELFPAY ==
[2023-03-02 15:01] LABS: PHA INR Fingerstick 2.4 (0.9-1.1)
== END 2023-03-02 15:18 ==
LOC: ACC 13:43
PROVIDERS: PCP Emergency Medicine; Visit Provider Emergency Medicine
DX: Z51.81 Encounter for therapeutic drug level monitoring (principal); Z79.01 Long term (current) use of anticoagulants
CPT/HCPCS: 85610; 99211; G0463

== ENCOUNTER → 2023-03-10 23:09 | Outpatient (CLI) | payer OTHER, SELFPAY ==
[2023-03-10 19:56] LABS: Amphetamine/Metha Screen,Urine Negative ng/ml (<1000); Barbiturates Screen,Urine Negative ng/ml (<200)
[2023-03-10 19:57] LABS: Benzodiazepines Screen,Urine Negative ng/ml (<200)
[2023-03-10 19:58] LABS: Cannabinoid Screen,Urine Negative ng/ml (<50); Cocaine Screen,Urine Negative ng/ml (<300)
[2023-03-10 19:59] LABS: Methadone Screen,Urine Negative ng/ml (<300)
[2023-03-10 20:00] LABS: Opiate Screen,Urine Positive ng/ml (<300); Phencyclidine Screen,Urine Negative ng/ml (<25)
== END ==
PROVIDERS: PCP Emergency Medicine; Visit Provider Emergency Medicine
DX: Z79.899 Other long term (current) drug therapy (principal)
CPT/HCPCS: 80305

== ENCOUNTER → 2023-03-16 14:08 | Outpatient (POV) | payer OTHER, SELFPAY ==
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
[2023-03-16 15:05] VITALS: BP 141/88; PULSE 67; RESP 18; O2SAT 98; BMI 17.2
== END ==
PROVIDERS: PCP Emergency Medicine; Visit Provider Nurse Practitioner Family
DX: M51.16 Intervertebral disc disorders with radiculopathy, lumbar region (principal); M25.519 Pain in unspecified shoulder; M25.511 Pain in right shoulder; M25.512 Pain in left shoulder; M50.30 Other cervical disc degeneration, unspecified cervical region
CPT/HCPCS: 99202; G0463

== ENCOUNTER → 2023-03-16 15:02 | Outpatient (CLI) | payer OTHER, SELFPAY ==
--- NOTE | 2023-03-16 15:08 | XR_ITS ---
FINAL REPORT CLINICAL HISTORY: NECK PAIN FINDINGS: CERVICAL SPINE 5 views were obtained. There is no acute fracture. There is no malalignment. There are mild degenerative changes in the lower cervical spine. There is no significant neural foraminal narrowing. There is no soft tissue abnormality. IMPRESSION: Mild degenerative changes in the lower cervical spine. No significant neural foraminal narrowing. Reviewed, Interpreted and Dictated by Jefe Rashid III, MD Transcribed by Casie Collins Authenticated and [facility]
== END ==
PROVIDERS: PCP Emergency Medicine; Visit Provider Anesthesiology
DX: M54.2 Cervicalgia (principal)
CPT/HCPCS: 72050

== ENCOUNTER 2023-03-31 09:28 | Day surgery (SDC) | payer OTHER, SELFPAY ==
[2023-03-31 10:02] VITALS: BP 146/86; PULSE 59; RESP 18; TEMP 36.8; O2SAT 100; BMI 16.8
[2023-03-31 10:30] LABS: INR 1.02 (0.9-1.1)
[2023-03-31 10:39] VITALS: BP 135/90; PULSE 62; RESP 18; O2SAT 97
[2023-03-31 10:40] VITALS: BP 135/90; PULSE 62; RESP 18; O2SAT 97
[2023-03-31 10:48] VITALS: BP 151/81; PULSE 62; RESP 18; O2SAT 100
--- NOTE | 2023-03-31 10:57 | EXP.PAIN.PRO ---
Procedure Date: 03/31/23 Time: 10:30 Anesthesiologist:: Sebastian Camejo CRNA Complications:: None Pre-procedure Diagnosis:: Degenerative disc disease lumbar spine multilevels. Lumbar radiculopathy Post-procedure Diagnosis:: Same. Indications for Procedure:: Patient is a very pleasant 47-year-old female comes our clinic today for lumbar epidural steroid injection at the L4-5 level. Patient reports low back pain as well as bilateral hip and leg radicular symptoms at times. Patient has a mechanical heart valve and requires chronic anticoagulopathy. Patient did bridge from Coumadin to Lovenox prior to the injection. Patient's INR is 1.06 today. Procedure Details:: Procedure: Lumbar epidural steroid injection under fluoroscopy Informed consent was obtained and the risks and benefits of the procedure were explained to the patient. The patient was taken to the procedure room and noninvasive monitors placed, including noninvasive blood pressure cuff and pulse oximeter. The back was viewed using C-arm Fluoroscopy and prepped using Chloraprep as a cleansing solution and the L4-L5 interspace was palpated. Skin and subcutaneous tissues were anesthetized using lidocaine 1.5% and a 25-gauge needle. After this, an 18-gauge Touhy epidural needle was placed into the L4-L5 interspace and advanced using fluoroscopic guidance and loss of resistance to air until the epidural space was encountered. After confirmation of needle placement in the epidural space, with dye, a solution containing normal saline, 3 mL and Depo-Medrol 80 mg were incrementally injected into the lumbar epidural space. The patient tolerated the procedure well with no complications. The patient was observed in the Pain Clinic and then discharged home neurologically intact. Plan and Disposition:: Patient was discharged without incident.
== END 2023-03-31 10:48 | disposition home or self-care (01) ==
PROVIDERS: Nurse Practitioner Family; PCP Emergency Medicine; Visit Provider Nurse Anesthetist, Certified Registered
DX: M51.16 Intervertebral disc disorders with radiculopathy, lumbar region (principal)
CPT/HCPCS: 36415; 62323; 85610; J1040

== ENCOUNTER 2023-04-03 09:35 | Outpatient (CLI) | payer OTHER, SELFPAY ==
[2023-04-03 11:19] LABS: PHA INR Fingerstick 2.1 (0.9-1.1)
== END 2023-04-03 14:57 ==
LOC: ACC 09:36
PROVIDERS: PCP Emergency Medicine; Visit Provider Emergency Medicine
DX: Z51.81 Encounter for therapeutic drug level monitoring (principal); Z79.01 Long term (current) use of anticoagulants; Z95.2 Presence of prosthetic heart valve
CPT/HCPCS: 85610; 99211; G0463

== ENCOUNTER → 2023-05-06 15:10 | Outpatient (POV) | payer OTHER, SELFPAY ==
[2023-05-06 16:01] VITALS: BP 167/102; PULSE 77; RESP 18; O2SAT 97; BMI 16.9
--- NOTE | 2023-05-06 16:02 | EXP.PAIN.SOA ---
[facility] Pain Management SOAP Note Subjective:: Patient is a pleasant 47-year-old female who presents today for follow-up of lumbar epidural steroid injection of L4-L5 on 03/31/2023. We are currently treating the patient for degenerative disc disease of cervical and lumbar spine with cervical and lumbar radiculopathy symptoms, low back pain, neck pain, shoulder pain. Today she states that she has had at least 85% improvement in her lower leg pain however she continues to have significant pain in her low back and neck. Patient does describe this as a constant achy, throbbing sensation with spasms. She does state it interferes with her ability to perform activities of daily living. Patient states the pain is debilitating and that she frequently has to change positions to get some improvement. Patient does sleep with a special pillow and is currently managed with Recluse 5 mg twice a day from her primary care doctor as well as clonazepam 0.5 mg 3 times a day. Patient states this just merely takes the edge off of her pain symptoms. She is interested in additional injective therapy for additional relief. Her Wilian is [phone]. Its been reviewed and appropriate. Review of Systems: General: No recent weight changes, no fever, no sleep disturbances Respiratory: No cough, no shortness of air, no recurring pulmonary infections Cardiovascular/peripheral vascular: No chest pain, no palpitations, no edema, no shortness of breath Gastrointestinal: No new onset incontinence, normal bowel movements reported Genitourinary: No new onset incontinence Musculoskeletal: Low back pain, neck pain Psychiatric: [Normal mood/affect] Neurological: [Denies weakness in extremities], [denies balance issues] Objective:: Physical Exam: General: Alert and oriented x3, no acute distress, pleasant and cooperative Lungs: Respirations even and unlabored, symmetrical chest expansion Eyes: PERRL Musculoskeletal: Flexion and extension of cervical, lumbar [spine] somewhat guarded secondary to pain, [antalgic gait noted] positive Kemps test Neurological: Speech clear, no gross sensory deficit Assessment:: Degenerative disc disease of cervical and lumbar spine with cervical and lumbar radiculopathy symptoms, cervical and lumbar arthropathy with spondylosis, shoulder pain, low back pain, neck pain Plan:: Patient continues to experience significant pain in her neck and low back with limited range of motion. Patient did have a positive Kemps test. I have discussed with the patient that she may benefit from lumbar medial branch block. Risk and benefits were discussed with the patient and she would like to proceed forward with this plan of care. Patient is currently on blood thinners and will have to come off this prior to her injections. We will contact her physician and confirm she can come off of this medication. I have also discussed with the patient that she may benefit from a cervical medial branch block in the future and we will review this at a later date. We will schedule the patient for a lumbar medial branch block L4-L5 and L5-S1. Patient has been instructed to contact the clinic with any concerns before the next appointment. Dr. Miller has reviewed this note and agrees with this plan of care. This note was dictated using voice recognition software and make contain errors or omissions. [facility] Disclaimer: The information contained in this section may have been updated after the patient was seen, as this information can be updated by other users. Medical History Abnormal cardiovascular stress test Carotid artery stenosis Generalized anxiety disorder Mixed stress and urge urinary incontinence Tobacco dependence syndrome Typical angina Surgical History H/O aortic valve replacement History of hysterectomy Family History Other Can
== END ==
PROVIDERS: PCP Emergency Medicine; Visit Provider Nurse Practitioner Family
DX: M51.16 Intervertebral disc disorders with radiculopathy, lumbar region (principal); M50.10 Cervical disc disorder with radiculopathy, unspecified cervical region; M47.22 Other spondylosis with radiculopathy, cervical region; M47.26 Other spondylosis with radiculopathy, lumbar region; M25.519 Pain in unspecified shoulder
CPT/HCPCS: 99212; G0463

== ENCOUNTER → 2023-05-08 23:09 | Outpatient (CLI) | payer OTHER, SELFPAY ==
[2023-05-08 18:48] LABS: Amphetamine/Metha Screen,Urine Negative ng/ml (<1000); Barbiturates Screen,Urine Negative ng/ml (<200)
[2023-05-08 18:49] LABS: Benzodiazepines Screen,Urine Negative ng/ml (<200)
[2023-05-08 18:50] LABS: Cannabinoid Screen,Urine Negative ng/ml (<50); Cocaine Screen,Urine Negative ng/ml (<300)
[2023-05-08 18:51] LABS: Methadone Screen,Urine Negative ng/ml (<300); Opiate Screen,Urine Positive ng/ml (<300)
[2023-05-08 18:52] LABS: Phencyclidine Screen,Urine Negative ng/ml (<25)
== END ==
PROVIDERS: PCP Emergency Medicine; Visit Provider Emergency Medicine
DX: M54.16 Radiculopathy, lumbar region (principal); M54.50 Low back pain, unspecified
CPT/HCPCS: 80305

== ENCOUNTER 2023-05-11 09:24 | Outpatient (CLI) | payer OTHER, SELFPAY ==
[2023-05-11 10:00] LABS: PHA INR Fingerstick 3.1 (0.9-1.1)
== END 2023-05-11 09:58 ==
LOC: ACC 09:24
PROVIDERS: PCP Emergency Medicine; Visit Provider Emergency Medicine
DX: Z51.81 Encounter for therapeutic drug level monitoring (principal); Z79.01 Long term (current) use of anticoagulants; Z95.2 Presence of prosthetic heart valve
CPT/HCPCS: 85610; 99211; G0463

== ENCOUNTER 2023-05-26 08:11 | Day surgery (SDC) | payer OTHER, SELFPAY ==
[2023-05-26 08:17] VITALS: BP 156/91; PULSE 61; RESP 18; TEMP 36.6; O2SAT 100; BMI 16.9
[2023-05-26 09:45] LABS: INR 1.04 (0.9-1.1); Prothrombin Time 11.2 seconds (10.1-12.5)
[2023-05-26 10:00] VITALS: BP 143/84; PULSE 63; RESP 18; O2SAT 97
[2023-05-26 10:01] VITALS: BP 143/84; PULSE 63; RESP 18; O2SAT 97
--- NOTE | 2023-05-26 10:06 | P.PCN_ITS ---
Procedure Date: 05/26/23 Time: 09:50 Anesthesiologist:: Sebastian Camejo CRNA Complications:: None Pre-procedure Diagnosis:: Degenerative disc lumbar spine multilevels. Lumbar radiculopathy. Lumbar spondylosis. Multilevel lumbar facet arthropathy. Post-procedure Diagnosis:: Same. Indications for Procedure:: Very pleasant 47-year-old female comes our clinic today for bilateral L4-5, L5- S1 medial branch blocks/facet injections. She complains of low back pain that increases significantly with standing and/or flexion, extension, left and right rotation. Patient reports pain 7/10. Procedure Details:: Informed consent was obtained and the risk and benefits of the procedure was explained to the patient. Patient was taken to the procedure room where noninvasive monitors were placed, including noninvasive blood pressure cuff as well as pulse oximeter. The area over the lumbar spine was cleansed using chlorhexidine as a cleansing solution. I anesthetized the skin and subcutaneous tissues with 1% Lidocaine. I placed 22-gauge spinal needles into the facet joint/ medial branches of L4-L5, and L5-S1 bilaterally. Needle placement was confirmed with fluoroscopy. After confirmation of needle placement, each site was injected with 1 mL of 1% lidocaine and 0.25 % Marcaine and 10 mg of Depo- Medrol. A total of 80 mg of depo medrol was used for bilateral medial branch blocks of L4-L5, and L5-S1 bilaterally. Patient tolerated the procedure without difficulty. There were no complications. Plan and Disposition:: Patient was discharged without incident.
[2023-05-26 10:20] VITALS: BP 134/90; PULSE 64
== END 2023-05-26 10:20 | disposition home or self-care (01) ==
PROVIDERS: Nurse Practitioner Family; PCP Emergency Medicine; Visit Provider Nurse Anesthetist, Certified Registered
DX: M47.896 Other spondylosis, lumbar region (principal); M51.16 Intervertebral disc disorders with radiculopathy, lumbar region
CPT/HCPCS: 36415; 64493; 64494; 85610; J1040

== ENCOUNTER → 2023-05-29 14:27 | Outpatient (CLI) | payer OTHER, SELFPAY ==
[2023-05-29 13:38] LABS: Amphetamine/Metha Screen,Urine Negative ng/ml (<1000)
[2023-05-29 13:39] LABS: Barbiturates Screen,Urine Negative ng/ml (<200)
[2023-05-29 13:40] LABS: Benzodiazepines Screen,Urine Negative ng/ml (<200); Cannabinoid Screen,Urine Negative ng/ml (<50)
[2023-05-29 13:41] LABS: Cocaine Screen,Urine Negative ng/ml (<300)
[2023-05-29 13:42] LABS: Methadone Screen,Urine Negative ng/ml (<300); Opiate Screen,Urine Positive ng/ml (<300)
[2023-05-29 13:43] LABS: Phencyclidine Screen,Urine Negative ng/ml (<25)
== END ==
PROVIDERS: PCP Emergency Medicine; Visit Provider Emergency Medicine
DX: Z79.899 Other long term (current) drug therapy (principal)
CPT/HCPCS: 80305

== ENCOUNTER 2023-06-03 13:28 | Outpatient (CLI) | payer OTHER, SELFPAY ==
[2023-06-03 14:45] LABS: PHA INR Fingerstick 1.8 (0.9-1.1)
== END 2023-06-03 14:47 ==
LOC: ACC 13:28
PROVIDERS: PCP Emergency Medicine; Visit Provider Emergency Medicine
DX: Z51.81 Encounter for therapeutic drug level monitoring (principal); Z79.01 Long term (current) use of anticoagulants; Z95.2 Presence of prosthetic heart valve
CPT/HCPCS: 85610; 99211; G0463

== ENCOUNTER → 2023-06-10 08:48 | Outpatient (POV) | payer OTHER, SELFPAY ==
[2023-06-10 08:58] VITALS: BP 121/88; PULSE 68; RESP 18; O2SAT 96; BMI 16.5
--- NOTE | 2023-06-10 09:14 | EXP.PAIN.SOA ---
[facility] Pain Management SOAP Note Subjective:: Patient is a pleasant 47-year-old female who presents today for follow-up of lumbar medial branch block bilaterally L4-L5 and L5-S1 on 05/26/2023. We are currently treating the patient for degenerative disc disease of cervical and lumbar spine with cervical and lumbar radiculopathy symptoms, low back pain, neck pain, shoulder pain. Today she rates her pain a 7 out of 10. Patient states she did not notice any additional improvement following these injections. Patient denies any new injury or change to the location or type of pain she experiences. She states she continues to have excruciating pain in her low back with radiating symptoms into her legs as well as her neck with numbness and tingling into her upper extremities. Patient states the pain does interfere with her ability perform activities of daily living such as cooking and cleaning. She states she has also been experiencing feelings of dizziness and lightheaded however she states she does have a history of vertigo and this may be the issue. She states she does also know that her heart could be causing the symptoms as well as increased fatigue that she has been experiencing. She states she is seeing her brim rounder later this afternoon to follow-up with these issues. Patient does also mention that she will occasionally have rib pain and it frequently helps with pillows for positioning however it has progressively worsened over time. Patient states she does have scoliosis and believes this is what is causing the rib pain. Patient states she does have a back brace however it is very bulky and uncomfortable to wear. Patient is currently managed with [place] 5 mg 3 times a day and clonazepam 0.5 mg 3 times a day from an outside providers. Patient denies any side effects from these medications. Her Wilian is [phone]. Its been reviewed and appropriate. Review of Systems: General: No recent weight changes, no fever, no sleep disturbances Respiratory: No cough, no shortness of air, no recurring pulmonary infections Cardiovascular/peripheral vascular: No chest pain, no palpitations, no edema, no shortness of breath Gastrointestinal: No new onset incontinence, normal bowel movements reported Genitourinary: No new onset incontinence Musculoskeletal: Neck pain, bilateral arm pain Psychiatric: [Normal mood/affect] Neurological: [Denies weakness in extremities], [denies balance issues] Objective:: Physical Exam: General: Alert and oriented x3, no acute distress, pleasant and cooperative Lungs: Respirations even and unlabored, symmetrical chest expansion Eyes: PERRL Musculoskeletal: Flexion and extension of cervical [spine] somewhat guarded secondary to pain, [antalgic gait noted] Neurological: Speech clear, no gross sensory deficit Assessment:: Degenerative disc disease of cervical and lumbar spine with cervical and lumbar radiculopathy symptoms, low back pain, neck pain, shoulder pain, rib pain Plan:: Patient continues to experience significant pain at multiple areas however she does state that her cervical pain is the more bothersome. Patient does have significant numbness and tingling into her upper extremities. She did have limited range of motion of her cervical spine during today's visit. I have discussed with the patient that she may benefit from a cervical epidural steroid injection. Risk and benefits were discussed with the patient and she would like to proceed forward with this plan of care. Patient is on a daily blood thinner and we will have to consult with Dr. Vaughan's office to confirm she can stop this medication prior to this injection. I have also counseled the patient to contact her office following her cardiology appointment and let us know if this injection needs to be postponed based off of cardiology recommendations. I will order the patient a compounding cream. Patient will be scheduled for a RYAN C6-C7. Patient has been instructed to conta
== END ==
PROVIDERS: PCP Emergency Medicine; Visit Provider Nurse Practitioner Family
DX: M50.10 Cervical disc disorder with radiculopathy, unspecified cervical region (principal); M51.16 Intervertebral disc disorders with radiculopathy, lumbar region; M54.2 Cervicalgia; M25.519 Pain in unspecified shoulder; R07.81 Pleurodynia
CPT/HCPCS: 99212; G0463

== ENCOUNTER 2023-06-17 10:18 | Outpatient (CLI) | payer OTHER, SELFPAY ==
[2023-06-17 11:35] LABS: INR 5.49 (0.9-1.1); Prothrombin Time 53.8 seconds (10.1-12.5)
[2023-06-17 14:28] LABS: PHA INR Fingerstick 4.5 (0.9-1.1)
== END 2023-06-17 14:59 ==
PROVIDERS: PCP Emergency Medicine; Visit Provider Emergency Medicine
DX: Z51.81 Encounter for therapeutic drug level monitoring (principal); Z79.01 Long term (current) use of anticoagulants
CPT/HCPCS: 36415; 85610; 99211; G0463

== ENCOUNTER → 2023-06-17 16:40 | Outpatient (CLI) | payer OTHER, SELFPAY ==
[2023-06-17 13:13] LABS: Amphetamine/Metha Screen,Urine Negative ng/ml (<1000)
[2023-06-17 13:14] LABS: Barbiturates Screen,Urine Negative ng/ml (<200)
[2023-06-17 13:16] LABS: Benzodiazepines Screen,Urine Negative ng/ml (<200); Cannabinoid Screen,Urine Negative ng/ml (<50)
[2023-06-17 13:17] LABS: Cocaine Screen,Urine Negative ng/ml (<300)
[2023-06-17 13:18] LABS: Methadone Screen,Urine Negative ng/ml (<300); Opiate Screen,Urine Positive ng/ml (<300)
[2023-06-17 13:19] LABS: Phencyclidine Screen,Urine Negative ng/ml (<25)
== END ==
PROVIDERS: PCP Emergency Medicine; Visit Provider Emergency Medicine
DX: Z79.899 Other long term (current) drug therapy (principal)
CPT/HCPCS: 80305

== ENCOUNTER 2023-06-24 10:44 | Outpatient (CLI) | payer OTHER, SELFPAY ==
[2023-06-24 13:39] LABS: PHA INR Fingerstick 3.2 (0.9-1.1)
== END 2023-06-24 14:10 ==
LOC: ACC 10:45
PROVIDERS: PCP Emergency Medicine; Visit Provider Emergency Medicine
DX: Z51.81 Encounter for therapeutic drug level monitoring (principal); Z79.01 Long term (current) use of anticoagulants; Z95.2 Presence of prosthetic heart valve
CPT/HCPCS: 85610; 99211; G0463

== ENCOUNTER → 2023-07-20 15:22 | Outpatient (CLI) | payer OTHER, SELFPAY ==
[2023-07-20 15:39] LABS: Amphetamine/Metha Screen,Urine Negative ng/ml (<1000)
[2023-07-20 15:40] LABS: Barbiturates Screen,Urine Negative ng/ml (<200); Benzodiazepines Screen,Urine Negative ng/ml (<200)
[2023-07-20 15:41] LABS: Cannabinoid Screen,Urine Negative ng/ml (<50)
[2023-07-20 15:42] LABS: Cocaine Screen,Urine Negative ng/ml (<300); Methadone Screen,Urine Negative ng/ml (<300)
[2023-07-20 15:43] LABS: Opiate Screen,Urine Positive ng/ml (<300)
[2023-07-20 15:44] LABS: Phencyclidine Screen,Urine Negative ng/ml (<25)
== END ==
PROVIDERS: PCP Emergency Medicine; Visit Provider Emergency Medicine
DX: Z79.899 Other long term (current) drug therapy (principal)
CPT/HCPCS: 80305

== ENCOUNTER → 2023-07-22 10:23 | Outpatient (POV) | payer OTHER, SELFPAY ==
--- NOTE | 2023-07-22 10:49 | EXP.PAIN.SOA ---
[facility] Pain Management SOAP Note Subjective:: Patient is a pleasant 47-year-old female who presents today for follow-up. We are currently treating the patient for degenerative disc disease of cervical and lumbar spine with cervical and lumbar radiculopathy symptoms, low back pain, neck pain, shoulder pain. Today she rates her pain a 5 out of 10. She denies any new injury or change to the location or type of pain she experiences. She continues to experience worsening pain in her neck with radiating symptoms of numbness and tingling into her upper extremities. Patient was previously scheduled for a cervical epidural however this was denied by insurance for not having updated advanced imaging within the last 24 months. Patient does state that her pain interferes with her ability perform activities of daily living such as cooking and cleaning. Patient also states she has been dealing with her PT and INR levels at the Coumadin clinic they were a little off. Patient does believe this is related to her diet and states that she is scheduled to go after our visit today down to the clinic for repeat blood work. She is currently managed with [place] 5 mg 3 times a day and clonazepam 0.5 mg 3 times a day from an outside providers. Patient denies any side effects from these medications. Her Wilian is [phone]. Its been reviewed and appropriate. Review of Systems: General: No recent weight changes, no fever, no sleep disturbances Respiratory: No cough, no shortness of air, no recurring pulmonary infections Cardiovascular/peripheral vascular: No chest pain, no palpitations, no edema, no shortness of breath Gastrointestinal: No new onset incontinence, normal bowel movements reported Genitourinary: No new onset incontinence Musculoskeletal: Neck pain, bilateral arm pain Psychiatric: [Normal mood/affect] Neurological: [Denies weakness in extremities], [denies balance issues] Objective:: Physical Exam: General: Alert and oriented x3, no acute distress, pleasant and cooperative Lungs: Respirations even and unlabored, symmetrical chest expansion Eyes: PERRL Musculoskeletal: Flexion and extension of cervical [spine] somewhat guarded secondary to pain, [antalgic gait noted] Neurological: Speech clear, no gross sensory deficit FINDINGS: CERVICAL SPINE 5 views were obtained. There is no acute fracture. There is no malalignment. There are mild degenerative changes in the lower cervical spine. There is no significant neural foraminal narrowing. There is no soft tissue abnormality. IMPRESSION: Mild degenerative changes in the lower cervical spine. No significant neural foraminal narrowing. Reviewed, Interpreted and Dictated by Jefe Rashid III, MD Transcribed by Casie Collins Authenticated and . [facility] Assessment:: degenerative disc disease of cervical and lumbar spine with cervical and lumbar radiculopathy symptoms, low back pain, neck pain, shoulder pain Plan:: Patient continues to experience significant pain in her neck with radiating symptoms to her upper extremities. I will order a MRI without contrast of her cervical spine and we will follow-up with her after this imaging. I have discussed with the patient that I do believe she would still benefit from a cervical epidural however we will discuss this at future visits. Patient will return to clinic in 4 weeks for reevaluation of symptoms and plan of care. Patient has been instructed to contact the clinic with any concerns before the next appointment. Dr. Miller has reviewed this note and agrees with this plan of care. This note was dictated using voice recognition software and make contain errors or omissions. [facility] Disclaimer: The information contained in this section may have been updated after the patient was seen, as this information can be updated by other users. Medical History (Reviewed 07/20/23 @ 11:49
[2023-07-22 11:53] VITALS: BP 108/76; PULSE 61; RESP 18; O2SAT 100; BMI 16.9
== END ==
PROVIDERS: PCP Emergency Medicine; Visit Provider Nurse Practitioner Family
DX: M50.10 Cervical disc disorder with radiculopathy, unspecified cervical region (principal); M51.16 Intervertebral disc disorders with radiculopathy, lumbar region; M25.519 Pain in unspecified shoulder
CPT/HCPCS: 99212; G0463

== ENCOUNTER 2023-07-22 11:07 | Outpatient (CLI) | payer OTHER, SELFPAY ==
[2023-07-22 12:57] LABS: PHA INR Fingerstick 2.2 (0.9-1.1)
== END 2023-07-22 12:58 ==
LOC: ACC 11:08
PROVIDERS: PCP Emergency Medicine; Visit Provider Emergency Medicine
DX: Z51.81 Encounter for therapeutic drug level monitoring (principal); Z79.01 Long term (current) use of anticoagulants
CPT/HCPCS: 85610; 99211; G0463

== ENCOUNTER → 2023-07-30 14:51 | Outpatient (CLI) | payer OTHER, SELFPAY ==
--- NOTE | 2023-07-30 14:52 | MM_ITS ---
PROCEDURE INFORMATION: Exam: MG Bilateral Screening 3D Mammography Exam date and time: 07/30/2023 3:03 PM Age: 47 years old Clinical indication: Baseline screening mammogram TECHNIQUE: Imaging protocol: Bilateral Screening tomosynthesis and 2D mammography including computer-aided detection (CAD) when performed. COMPARISON: No relevant prior studies available. FINDINGS: MAMMOGRAPHY: Breast composition: The breast is heterogeneously dense, which may obscure small masses. Mass: None. Architectural distortion: No new or suspicious architectural distortion. Calcifications: No new or suspicious calcifications are present Asymmetric density: No new or suspicious asymmetric density is present Skin thickening: None. Axillary adenopathy: None. IMPRESSION: No mammographic evidence of malignancy. Recommend annual screening mammography unless otherwise clinically indicated. ASSESSMENT: BI-RADS category 1: Negative
== END ==
PROVIDERS: PCP Emergency Medicine; Visit Provider Emergency Medicine
DX: Z12.31 Encounter for screening mammogram for malignant neoplasm of breast (principal)
CPT/HCPCS: 77063; 77067

== ENCOUNTER → 2023-08-04 13:43 | Outpatient (CLI) | payer OTHER, SELFPAY ==
--- NOTE | 2023-08-04 13:47 | MR_ITS ---
FINAL REPORT CLINICAL HISTORY: NECK PAIN with numbness down left arm COMPARISON: None FINDINGS: Multiplanar MR imaging of the cervical spine was performed without contrast. On the sagittal T2-weighted images, disc degeneration is seen throughout. There is no evidence of fracture. There is mild retrolisthesis of C4 on C5. The cervical spinal cord has an unremarkable appearance without evidence of mass, edema or syrinx. No significant canal stenosis is identified. The cervicomedullary junction is normal. C2-3: There is no significant canal stenosis or neural foraminal narrowing. C3-4: There is no significant canal stenosis or neural foraminal narrowing. C4-5: An annular bulge is present. There is no significant canal stenosis or neural foraminal narrowing. C5-6: Disc osteophyte complex is present. There is no significant canal stenosis or neural foraminal narrowing. C6-7: An annular bulge is present with a small central disc protrusion. There is no significant canal stenosis or neural foraminal narrowing. C7-T1: There is no significant canal stenosis or neural foraminal narrowing. IMPRESSION: Multilevel disc disease as described, without significant foraminal or canal stenosis. Reviewed, Interpreted and Dictated by Jefe Rashid III, MD Transcribed by Saadia Moreno Authenticated and [facility]
== END ==
LOC: RAD 13:43
PROVIDERS: PCP Emergency Medicine; Visit Provider Nurse Practitioner Family
DX: M54.2 Cervicalgia (principal)
CPT/HCPCS: 72141; 76376

== ENCOUNTER 2023-08-19 09:40 | Outpatient (CLI) | payer OTHER, SELFPAY ==
[2023-08-19 10:55] LABS: INR 4.77 (0.9-1.1)
[2023-08-19 13:07] LABS: Prothrombin Time 46.5 seconds (10.1-12.5)
[2023-08-19 14:03] LABS: PHA INR Fingerstick 4.2 (0.9-1.1)
== END 2023-08-19 14:10 ==
PROVIDERS: PCP Emergency Medicine; Visit Provider Emergency Medicine
DX: Z79.01 Long term (current) use of anticoagulants (principal); Z51.81 Encounter for therapeutic drug level monitoring; Z95.2 Presence of prosthetic heart valve
CPT/HCPCS: 36415; 85610; 99211; G0463

== ENCOUNTER → 2023-08-20 09:47 | Outpatient (POV) | payer OTHER, SELFPAY ==
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
[2023-08-20 12:10] VITALS: BP 147/96; PULSE 58; RESP 18; O2SAT 100; BMI 16.5
== END ==
PROVIDERS: PCP Emergency Medicine; Visit Provider Nurse Practitioner Family
DX: M50.123 Cervical disc disorder at C6-C7 level with radiculopathy (principal); M51.16 Intervertebral disc disorders with radiculopathy, lumbar region; M25.519 Pain in unspecified shoulder
CPT/HCPCS: 99212; G0463

== ENCOUNTER 2023-08-28 08:38 | Outpatient (CLI) | payer OTHER, SELFPAY ==
[2023-08-28 15:12] LABS: PHA INR Fingerstick 1.2 (0.9-1.1)
== END 2023-08-28 15:28 ==
LOC: ACC 08:39
PROVIDERS: PCP Emergency Medicine; Visit Provider Emergency Medicine
DX: Z51.81 Encounter for therapeutic drug level monitoring (principal); Z79.01 Long term (current) use of anticoagulants; Z95.2 Presence of prosthetic heart valve
CPT/HCPCS: 85610; 99211; G0463

== ENCOUNTER 2023-09-08 10:58 | Day surgery (SDC) | payer OTHER, SELFPAY ==
[2023-09-08 11:41] VITALS: BP 134/83; PULSE 58; RESP 16; TEMP 36.5; O2SAT 100; BMI 17.2
[2023-09-08 11:48] LABS: INR 1.04 (0.9-1.1); Prothrombin Time 11.2 seconds (10.1-12.5)
--- NOTE | 2023-09-08 12:09 | P.PCN_ITS ---
Procedure Date: 09/08/23 Time: 12:00 Anesthesiologist:: Sebastian Camejo CRNA Complications:: None Pre-procedure Diagnosis:: Degenerative disc cervical spine multilevels. Cervical radiculopathy. Multilevel disc bulge cervical spine. Cervical spondylosis. Post-procedure Diagnosis:: Same. Indications for Procedure:: Patient very pleasant 48-year-old female comes our clinic today for cervical epidural steroid injection. Patient complaining of cervical neck pain as well as bilateral arm radicular symptoms at times. She rates pain 7/10. Procedure Details:: Procedure:Cervical epidural steroid injection Informed consent was obtained and the risks and benefits of the procedure were explained to the patient. The patient was taken to the procedure room and noninvasive monitors placed, including noninvasive blood pressure cuff and pulse oximeter. The neck was prepped using Chloraprep as a cleansing solution. The C6- C7 interspace was viewed using fluroscopy. The skin and subcutaneous tissues were anesthetized using lidocaine 1.5% and a 25-gauge needle. After this an 18- gauge Touhy epidural needle was placed into the C6-C7 interspace under fluroscopy guidance and advanced using loss of resistance to air until the epidural space was encountered. After confirmation of needle placement in the epidural space using contrast dye, a solution containing normal saline, 2 mL and Depo-Medrol 80 mg was incrementally injected into the cervical epidural space.~ The patient tolerated the procedure well with no complications. The patient was observed in the Pain Clinic and then discharged home neurologically intact. Plan and Disposition:: Patient was discharged without incident.
[2023-09-08 12:12] VITALS: BP 144/92; PULSE 61; RESP 18; O2SAT 98
== END 2023-09-08 12:12 | disposition home or self-care (01) ==
PROVIDERS: PCP Emergency Medicine; Visit Provider Nurse Anesthetist, Certified Registered
DX: M50.123 Cervical disc disorder at C6-C7 level with radiculopathy (principal); M47.22 Other spondylosis with radiculopathy, cervical region
CPT/HCPCS: 36415; 62321; 85610; J1040; Q9966

== ENCOUNTER 2023-09-14 08:57 | Outpatient (CLI) | payer OTHER, SELFPAY ==
[2023-09-14 09:15] LABS: PHA INR Fingerstick 1.4 (0.9-1.1)
== END 2023-09-14 09:19 ==
LOC: ACC 08:58
PROVIDERS: PCP Emergency Medicine; Visit Provider Emergency Medicine
DX: Z51.81 Encounter for therapeutic drug level monitoring (principal); Z79.01 Long term (current) use of anticoagulants
CPT/HCPCS: 85610; 99211; G0463

== ENCOUNTER 2023-09-17 09:41 | Outpatient (CLI) | payer OTHER, SELFPAY ==
[2023-09-17 14:16] LABS: PHA INR Fingerstick 3.2 (0.9-1.1)
== END 2023-09-17 14:20 ==
LOC: ACC 09:42
PROVIDERS: PCP Emergency Medicine; Visit Provider Emergency Medicine
DX: Z51.81 Encounter for therapeutic drug level monitoring (principal); Z79.01 Long term (current) use of anticoagulants
CPT/HCPCS: 85610; 99211; G0463

== ENCOUNTER → 2023-09-18 08:26 | Outpatient (CLI) | payer OTHER, SELFPAY ==
[2023-09-18 18:54] LABS: Amphetamine/Metha Screen,Urine Negative ng/ml (<1000); Barbiturates Screen,Urine Negative ng/ml (<200)
[2023-09-18 18:55] LABS: Benzodiazepines Screen,Urine Negative ng/ml (<200); Cannabinoid Screen,Urine Negative ng/ml (<50)
[2023-09-18 18:56] LABS: Methadone Screen,Urine Negative ng/ml (<300)
[2023-09-18 18:57] LABS: Cocaine Screen,Urine Negative ng/ml (<300); Phencyclidine Screen,Urine Negative ng/ml (<25)
[2023-09-18 18:58] LABS: Opiate Screen,Urine Positive ng/ml (<300)
== END ==
PROVIDERS: PCP Emergency Medicine; Visit Provider Emergency Medicine
DX: Z79.899 Other long term (current) drug therapy (principal)
CPT/HCPCS: 80305

== ENCOUNTER 2023-09-22 08:44 | Outpatient (CLI) | payer OTHER, SELFPAY ==
[2023-09-22 09:10] LABS: PHA INR Fingerstick 3.8 (0.9-1.1)
== END 2023-09-22 09:19 ==
LOC: ACC 08:45
PROVIDERS: PCP Emergency Medicine; Visit Provider Emergency Medicine
DX: Z51.81 Encounter for therapeutic drug level monitoring (principal); Z79.01 Long term (current) use of anticoagulants
CPT/HCPCS: 85610; 99211; G0463

== ENCOUNTER → 2023-10-07 14:42 | Outpatient (POV) | payer OTHER, SELFPAY ==
--- NOTE | 2023-10-07 15:06 | EXP.PAIN.SOA ---
[facility] Pain Management SOAP Note Subjective:: PleasePatient is a pleasant 48-year-old female who presents today for follow-up of cervical epidural C6-C7 on 09/08/2023. We are currently treating the patient for degenerative disc disease of cervical and lumbar spine with cervical and lumbar radiculopathy symptoms, low back pain, neck pain, shoulder pain. Today she rates her pain an 8 out of 10. Patient does state that she had 100% improvement following this injection lasting 1 week. She does state that she is back to her baseline and states the pain in her neck and radiating symptoms is severe and interferes with her ability perform activities of daily living such as cooking and cleaning. Patient does describe it as an aching, throbbing sensation that is worse with increased movement patient in. Patient does also states she continues to have some low back pain as well as recently been experiencing more pain in her upper abdomen/rib area and that frequently this pain does get better after eating. Patient denies any previous EGD or colonoscopies in the past. Patient is currently on Coumadin regulated by the Coumadin clinic. At our last injection she did have to bridge over with Lovenox injections. Patient is currently managed with Mikana 7.5 mg 4 times a day and clonazepam 0.5 mg 3 times a day from an outside provider. She denies any side effects from this medication. Her Wilian has been reviewed and is appropriate. Review of Systems: General: No recent weight changes, no fever, no sleep disturbances Respiratory: No cough, no shortness of air, no recurring pulmonary infections Cardiovascular/peripheral vascular: No chest pain, no palpitations, no edema, no shortness of breath Gastrointestinal: No new onset incontinence, normal bowel movements reported Genitourinary: No new onset incontinence Musculoskeletal: Neck pain, bilateral arm pain Psychiatric: [Normal mood/affect] Neurological: [Denies weakness in extremities], [denies balance issues] Objective:: Physical Exam: General: Alert and oriented x3, no acute distress, pleasant and cooperative Lungs: Respirations even and unlabored, symmetrical chest expansion Eyes: PERRL Musculoskeletal: Flexion and extension of cervical [spine] somewhat guarded secondary to pain, [antalgic gait noted] Neurological: Speech clear, no gross sensory deficit Assessment:: Degenerative disc disease of cervical and lumbar spine with cervical and lumbar radiculopathy symptoms, low back pain, neck pain, shoulder pain, abdominal/rib pain Plan:: Patient is experiencing worsening pain in her neck with radiating symptoms to her bilateral upper extremities. Patient did have limited range of motion of her cervical spine during today's visit. I have discussed with the patient due to her getting 100% relief following her cervical epidural that she may benefit from a repeat cervical epidural injection. Risk and benefits were discussed with patient and she would like to proceed forward with this plan of care. I have discussed with her that we will have to contact the Coumadin clinic and confirm that she can stop her blood thinner again requiring her to bridge over to the Lovenox temporarily. Patient acknowledges this understanding and would like to proceed forward with this plan of care. I have also discussed with the patient that it may be beneficial to see a linen keeper to rule out possible ulcer to explain her abdominal/rib pain that is relieved with eating. We will send a referral to Dr. Sal's office at [facility]. Patient will be scheduled for a RYAN C6-C7. Patient has been instructed to contact the clinic with any concerns before the next appointment. Dr. Miller has reviewed this note and agrees with this plan of care. This note was dictated using voice recognition software and make contain errors or omissions. [facility] Disclaimer: The information contained in this section may have been updated after the pat
[2023-10-07 15:39] VITALS: BP 153/98; PULSE 60; RESP 18; O2SAT 99; BMI 16.5
== END ==
PROVIDERS: PCP Emergency Medicine; Visit Provider Nurse Practitioner Family
DX: M50.10 Cervical disc disorder with radiculopathy, unspecified cervical region (principal); M51.16 Intervertebral disc disorders with radiculopathy, lumbar region; M25.519 Pain in unspecified shoulder; R10.9 Unspecified abdominal pain; R07.81 Pleurodynia
CPT/HCPCS: 99212; G0463

== ENCOUNTER 2023-10-13 08:30 | Outpatient (CLI) | payer OTHER, SELFPAY ==
[2023-10-13 09:36] LABS: INR 5.52 (0.9-1.1); Prothrombin Time 53.3 seconds (10.1-12.5)
[2023-10-13 10:07] LABS: PHA INR Fingerstick 4.5 (0.9-1.1)
== END 2023-10-13 10:23 ==
PROVIDERS: PCP Emergency Medicine; Visit Provider Emergency Medicine
DX: Z51.81 Encounter for therapeutic drug level monitoring (principal); Z79.01 Long term (current) use of anticoagulants
CPT/HCPCS: 36415; 85610; 99211; G0463

== ENCOUNTER 2023-10-19 08:38 | Outpatient (CLI) | payer OTHER, SELFPAY ==
[2023-10-19 11:38] LABS: PHA INR Fingerstick 1.4 (0.9-1.1)
== END 2023-10-19 11:41 ==
LOC: ACC 08:38
PROVIDERS: PCP Emergency Medicine; Visit Provider Emergency Medicine
DX: Z51.81 Encounter for therapeutic drug level monitoring (principal); Z79.01 Long term (current) use of anticoagulants
CPT/HCPCS: 85610; 99211; G0463

== ENCOUNTER → 2023-11-04 13:11 | Outpatient (POV) | payer OTHER, SELFPAY ==
[2023-11-04 13:36] VITALS: BP 110/77; PULSE 64; RESP 18; O2SAT 99; BMI 17.5
--- NOTE | 2023-11-04 13:53 | EXP.PAIN.SOA ---
[facility] Pain Management SOAP Note Subjective:: Patient is a pleasant 48-year-old female who presents today for follow-up of cervical epidural denial. We are currently treating the patient for degenerative disc disease of cervical and lumbar spine with cervical and lumbar radiculopathy symptoms, low back pain, neck pain, shoulder pain. Today she rates her pain an 6 out of 10. Patient denies any new trauma or injury. She states she continues to have chronic pain in her neck and low back with radiating symptoms to her upper extremities and lower extremities. Patient does describe this as a constant achy, sharp sensation that is worse with increased ambulation or range of motion. She does state the pain is debilitating and interferes with her ability to perform activities of daily living such as cooking and cleaning. She did previously have 100% relief with her last cervical epidural lasting a little over a week. Patient states during that time she was able to decrease her medications and felt more functional. Patient states she increased her activity and did more things around the house like even cleaning. Patient would still like to try for an additional injection. Patient does state that even the simplest activities are difficult for her such as getting out of bed. Patient does occasionally use a walker at home to help with ambulation. She states she is resorted to having to use the motorized wheelchairs when she goes shopping at [facility]. Patient is currently managed with [place] 7.5 mg 4 times a day and clonazepam 0.5 mg 3 times a day from an outside provider. She denies any side effects from this medication. Patient is on daily blood thinner and does have to bridge over to Lovenox when she has done injections in the past. Her Wilian has been reviewed and is appropriate. Review of Systems: General: No recent weight changes, no fever, no sleep disturbances Respiratory: No cough, no shortness of air, no recurring pulmonary infections Cardiovascular/peripheral vascular: No chest pain, no palpitations, no edema, no shortness of breath Gastrointestinal: No new onset incontinence, normal bowel movements reported Genitourinary: No new onset incontinence Musculoskeletal: Neck pain, bilateral arm pain Psychiatric: [Normal mood/affect] Neurological: [Denies weakness in extremities], [denies balance issues] Objective:: Physical Exam: General: Alert and oriented x3, no acute distress, pleasant and cooperative Lungs: Respirations even and unlabored, symmetrical chest expansion Eyes: PERRL Musculoskeletal: Flexion and extension of cervical [spine] somewhat guarded secondary to pain, [antalgic gait noted] Neurological: Speech clear, no gross sensory deficit Assessment:: Degenerative disc disease of cervical and lumbar spine with cervical and lumbar radiculopathy symptoms, chronic pain syndrome, shoulder pain Plan:: Patient continues to experience significant pain throughout her back with limited range of motion of her cervical spine. Patient does have radiating symptoms into her upper extremities and did have significant relief of more than 50% with her last cervical epidural. She did have overall improved function following this injection. I have discussed with the patient that she may benefit from repeat cervical epidural injection. Risk and benefits were discussed with the patient and she would like to proceed forward with this plan of care. Patient is on daily blood thinner and will have to stop this medication prior to her injection. I have also discussed with the patient in future she may benefit from a intrathecal pain pump trial due to her chronic pain throughout her spine. Risk and benefits and educational handouts were given to her during today's visit. I will order a psychological evaluation and if she is deemed an appropriate candidate we will plan to proceed forward with a trial at a later date. Patient will be scheduled for a RYAN C6-C7. Patient has bee
== END ==
PROVIDERS: PCP Emergency Medicine; Visit Provider Nurse Practitioner Family
DX: M50.123 Cervical disc disorder at C6-C7 level with radiculopathy (principal); M51.16 Intervertebral disc disorders with radiculopathy, lumbar region; G89.4 Chronic pain syndrome; M25.519 Pain in unspecified shoulder
CPT/HCPCS: 99212; G0463

== ENCOUNTER 2023-11-10 09:24 | Outpatient (CLI) | payer OTHER, SELFPAY ==
[2023-11-10 14:13] LABS: PHA INR Fingerstick 1.5 (0.9-1.1)
== END 2023-11-10 14:16 ==
PROVIDERS: PCP Nurse Practitioner Family; Visit Provider Nurse Practitioner Family
DX: Z51.81 Encounter for therapeutic drug level monitoring (principal); Z79.01 Long term (current) use of anticoagulants
CPT/HCPCS: 85610; 99211; G0463

== ENCOUNTER → 2023-11-16 13:20 | Outpatient (CLI) | payer OTHER, SELFPAY ==
[2023-11-16 18:23] LABS: Basophils % 0.3 % (0.1-2.0); Eosinophils # 1.1 K/mm3 (0.0-0.4); Eosinophils % 9.3 % (0.1-12.0); Hematocrit 47.6 % (37.0-47.0); Hemoglobin 15.7 g/dL (12.2-16.2); Lymphocytes # 2.5 K/mm3 (0.7-4.5); Lymphocytes % 21.8 % (10-50); Mean Corpuscular Hemoglobin 32.2 pg (27.0-31.2); Mean Corpuscular Volume 97.6 fl (81-99); Mean Platelet Volume 8.9 fl (7.4-10.4); Monocytes # 0.6 K/mm3 (0.1-1.0); Monocytes % 4.8 % (1.7-9.3); Neutrophils # 7.2 K/mm3 (1.8-7.8); Neutrophils % 63.8 % (37.0-80.0); Platelet Count 301 K/mm3 (142-424); Red Blood Count 4.87 M/mm3 (4.20-5.40); Red Cell Distribution Width 13.5 % (11.5-17.5); White Blood Count 11.3 K/mm3 (4.8-10.8)
[2023-11-16 18:42] LABS: Alanine Aminotransferase 30 U/L (12-78); Albumin Level 4.6 g/dl (3.5-5.0); Albumin/Globulin Ratio 1.5 (1.1-1.8); Alkaline Phosphatase 117 U/L (38-126); Anion Gap 10.8 mEq/L (5-15); Aspartate Amino Transferase 34 U/L (14-36); Bilirubin,Total 0.4 mg/dl (0.2-1.3); Blood Urea Nitrogen 6 mg/dl (7-17); Calcium 8.8 mg/dl (8.4-10.2); Carbon Dioxide 28 mmol/L (22.0-30.0); Chloride 102 mmol/L (98-107); Estimated Glomerular Filt Rate 77 ml/min (>60); GFR (African American) 93 ML/MIN (>60); Glucose 62 mg/dl (74-100); Potassium 3.8 mmoL/L (3.5-5.1); Sodium 137 mmol/L (136-145); Total Protein,Serum 7.6 g/dl (6.3-8.2)
[2023-11-16 18:46] LABS: Erythrocyte Sedimentation Rate 6 mm/hr (0-20)
[2023-11-16 18:47] LABS: C-Reactive Protein 0.7 mg/L (0-4)
[2023-11-16 19:29] LABS: Barbiturates Screen,Urine Negative ng/ml (<200)
[2023-11-16 19:30] LABS: Amphetamine/Metha Screen,Urine Negative ng/ml (<1000); Cocaine Screen,Urine Negative ng/ml (<300)
[2023-11-16 19:31] LABS: Benzodiazepines Screen,Urine Negative ng/ml (<200)
[2023-11-16 19:32] LABS: Cannabinoid Screen,Urine Negative ng/ml (<50); Phencyclidine Screen,Urine Negative ng/ml (<25)
[2023-11-16 19:33] LABS: Methadone Screen,Urine Negative ng/ml (<300)
[2023-11-16 19:34] LABS: Opiate Screen,Urine Positive ng/ml (<300)
== END ==
PROVIDERS: PCP Internal Medicine; Visit Provider Internal Medicine
DX: E55.9 Vitamin D deficiency, unspecified (principal); Z79.899 Other long term (current) drug therapy; Z68.1 Body mass index [BMI] 19.9 or less, adult
CPT/HCPCS: 80053; 80305; 85025; 85651; 86140

== ENCOUNTER 2023-12-01 10:11 | Outpatient (CLI) | payer OTHER, SELFPAY ==
[2023-12-01 14:31] LABS: PHA INR Fingerstick 2.1 (0.9-1.1)
== END 2023-12-01 14:58 ==
LOC: ACC 10:12
PROVIDERS: PCP Nurse Practitioner Family; Visit Provider Nurse Practitioner Family
DX: Z51.81 Encounter for therapeutic drug level monitoring (principal); Z79.01 Long term (current) use of anticoagulants
CPT/HCPCS: 85610; 99211; G0463

== ENCOUNTER 2023-12-10 19:03 | Outpatient (CLI) | payer OTHER, SELFPAY ==
[2023-12-10 19:26] LABS: Adenovirus,PCR Not Detected (NotDetected); Coronavirus 19, PCR Not Detected (NotDetected); Coronavirus 229E Not Detected (NotDetected); Coronavirus NL63 Not Detected (NotDetected); Coronavirus OC43 Not Detected (NotDetected); Coronovirus HKU1,PCR Not Detected (NotDetected); Human Metapneumovirus Not Detected (NotDetected); Influenza A, PCR Not Detected (NotDetected); Influenza AH1, 2009 Not Detected (NotDetected); Influenza AH1, PCR Not Detected (NotDetected); Influenza AH3,PCR Not Detected (NotDetected); Influenza B, PCR Not Detected (NotDetected); Parainfluenza 1, PCR Not Detected (NotDetected); Parainfluenza 2, PCR Not Detected (NotDetected); Parainfluenza 3, PCR Not Detected (NotDetected); Parainfluenza 4, PCR Not Detected (NotDetected); Respiratory Syncytial Virus Not Detected (NotDetected); Rhinovirus/Enterovirus Not Detected (NotDetected)
== END 2023-12-10 23:59 ==
LOC: LAB.DROPOF 19:04
PROVIDERS: PCP Student in an Organized Health Care Education/Training Program; Visit Provider Student in an Organized Health Care Education/Training Program
DX: R53.83 Other fatigue (principal); J02.9 Acute pharyngitis, unspecified; R05.9 Cough, unspecified; R09.81 Nasal congestion; R11.10 Vomiting, unspecified; Z20.822 Contact with and (suspected) exposure to COVID-19
CPT/HCPCS: 87070; 87581; 87632; 87635; 87798

== ENCOUNTER 2023-12-11 11:02 | Outpatient (CLI) | payer OTHER, SELFPAY ==
--- NOTE | 2023-12-11 11:05 | XR_ITS ---
FINAL REPORT CLINICAL HISTORY: cough, wheezing COMPARISON: 10/28/2022 FINDINGS: TWO-VIEW CHEST The heart size is normal. The patient is status post median sternotomy. The lungs are clear. There is no pneumothorax. The osseous structures demonstrate dextroscoliosis. IMPRESSION: No acute cardiopulmonary process. Reviewed, Interpreted and Dictated by Jefe Rashid III, MD Transcribed by Alicia Sepulveda Authenticated and [facility]
== END 2023-12-11 23:59 ==
LOC: RAD 11:03
PROVIDERS: PCP Physician Assistant; Visit Provider Student in an Organized Health Care Education/Training Program
DX: R05.9 Cough, unspecified (principal); R06.2 Wheezing
CPT/HCPCS: 71046

== ENCOUNTER 2023-12-14 12:41 | Emergency (ER) | payer OTHER, SELFPAY ==
[2023-12-14 12:55] VITALS: BP 155/95; PULSE 73; RESP 20; TEMP 36.8; O2SAT 98; BMI 17.8
--- NOTE | 2023-12-14 13:21 | EXP.UTC ---
Discharge Plan Disposition Patient Disposition: Home, Self-Care Condition: Good Prescriptions Prescriptions: No Action albuterol sulfate 90 mcg/actuation HFA aerosol inhaler 2 puff INHALATION Q4-6H PRN (Reason: shortness of breath or wheezing) Qty: 6.7 0RF fluticasone propionate 50 mcg/actuation spray,suspension 1 spray INTRANASAL DAILY Patient Comments: USE 1 SPRAY IN EACH NOSTRIL DAILY clonidine HCl 0.1 mg tablet 0.1 mg PO DAILY PRN (Reason: Blood Pressure) metoprolol tartrate 25 mg tablet 25 mg PO DAILY atorvastatin 20 mg tablet 20 mg PO DAILY Qty: 90 0RF alendronate 70 mg tablet 70 mg PO WEEKLY 180 Days Qty: 26 3RF oxybutynin chloride 10 mg tablet extended release 24hr 10 mg PO . Patient Comments: TAKE 1 TABLET BY MOUTH ONCE DAILY fluticasone propion-salmeterol [Advair Diskus] 250-50 mcg/dose blister with device 1 inh inhalation . Patient Comments: INHALE 1 PUFF BY MOUTH TWICE DAILY. RINSE MOUTH WITH WATER AFTER USE FOR AFTERTASTE AND INCIDENCE OF CANDIDIASIS. DO NOT SWALLOW ondansetron 4 mg tablet,disintegrating 4 mg PO Q8H PRN (Reason: nausea and vomiting) Qty: 30 0RF benzonatate 100 mg capsule 100 mg PO BID PRN (Reason: cough) Qty: 20 0RF lisinopril 5 mg tablet 5 mg PO DAILY Qty: 90 0RF varenicline [Chantix Starting Month Box] 0.5 mg (11)- 1 mg (42) tablets,dose pack See Rx Instructions PO PER PKG DIR Qty: 53 0RF Rx Instructions: PO PER PKG DIR hydrocodone-acetaminophen 7.5-325 mg tablet 1 tab PO QID Qty: 120 0RF clonazepam [Klonopin] 0.5 mg tablet See Rx Instructions PO TID PRN (Reason: anxiety) Qty: 90 0RF Rx Instructions: take 1/2 to 1 tablet orally three times a day PRN; warfarin 5 mg tablet 5 mg PO DAILY diclofenac sodium 1 % gel 2 g topical QID Rx Instructions: apply to single elbow, wrist or hand; for hand includes palm/fingers/back of hand amlodipine 10 mg tablet See Rx Instructions .ROUTE .COMPLEX Rx Instructions: TAKE ONE TABLET BY MOUTH ONCE A DAY warfarin 1 mg tablet See Rx Instructions .ROUTE .COMPLEX Rx Instructions: TAKE 1 TABLET BY MOUTH EVERY DAY OR DIRECTED WITH 5MG Myrbetriq 25 mg tablet extended release 24 hr 25 mg PO DAILY Referrals Follow up/Referrals: Uche Lemus DO [Primary Care Provider] - See instructions Activity Restrictions/Add. Instructions Additional Instructions/Restrictions: *Monitor Temp, Over the counter Motrin or Tylenol as directed/as needed Tylenol every 4 hours and Motrin every 6 hours (as long as your family doctor has told you that you can take it) for fever or pain. and straight to ER if unable to lower temp less than 101.0 after medication given *Warm salt water gargles may help to soothe the throat *Throat Lozenges? *Warm fluids like tea with honey may help to soothe the throat? *Sleep elevated *Humidifier/Vaporizer Follow up IMMEDIATELY for new or worsening symptoms or no Noticeable improvement over the next 48-72 hours. 911 for difficulty breathing or swallowing You were tested for today for COVID19 your test result should be back in the next 24-48 hours, you may check your results on the [facility] My Health Portal if your COVID or Influenza is positive you must Quarantine for 5 days Clinical Impressions Clinical Impression: Exposure to COVID-19 virus Stand Alone Forms Stand Alone Forms: Work/School Release Instructions Patient Instructions: DI for Headache, DI for COVID-19 (Suspected or Confirmed ) Discharge ED Provider: [place] Skinner [facility] General Stated complaint: congestion, headache, body aches Mode of Arrival: Ambulatory Source of Information: Patient Limitations: No Limitations Time Seen by Provider: 12/14/23 13:21 Description of Symptoms (Recalled from Triage Doc. by RN): PATIENT C/O HEADACHE, COUGH, BODY ACHES, DIZZINESS, SOA, NAUSEA AND RUNNY NOSE SINCE LAST WEEK. SHE REPORTS 2 POSITIVE AT HOME COVID TESTS HEENT Symptoms (Recalled from RN notes): Yes Resp Symptoms (Recalled from RN notes): Yes Skin Symptoms (Recalled from RN notes): No MS Symptoms (Recalled from RN notes): No Functional Status (Recalled from RN notes): WNL History of Present Illness Provider Complaint: Patient states that last week she was sick with headaches, nasal congestion, dizziness on and off and cough and she seen PCP and they tested her for COVID and it was negative States that she was around her boss that had COVID then over the weekend she started again with headache, body aches, chills, and feeling worse so she took two home COVID test and they was positive so today she came in to get one here to see if it showed positive Related Data Home Medications Medication Instructions Recorded Confirmed fluticasone propionate 50 1 spray intranasal DAILY Allergy 12/24/20 12/10/23 mcg/actuation nasal symptoms spray,suspension clonidine HCl 0.1 mg tablet 0.1 mg PO DAILY PRN Blood Pressure 01/12/23 12/10/23 warfarin 5 mg tablet 5 mg PO DAILY Blood thinner 01/12/23 12/10/23 diclofenac sodium 1 % topical gel 2 g topical QID Pain 03/16/23 12/10/23 fluticasone 250 mcg-salmeterol 50 1 inh inhalation . . 05/08/23 12/10/23 mcg/dose blistr powdr for inhalation (Advair Diskus) metoprolol tartrate 25 mg tablet 25 mg PO DAILY BLOOD PRESSURE 05/08/23 12/10/23 oxybutynin chloride 10 mg 10 mg PO . . 05/08/23 12/10/23 tablet,extended release 24 hr amlodipine 10 mg tablet See Rx Instructions .Route 06/10/23 12/10/23 .COMPLEX BLOOD PRESSURE mirabegron 25 mg tablet,extended 25 mg PO DAILY BLADDER 07/22/23 12/10/23 release 24 hr (Myrbetriq) warfarin 1 mg tablet See Rx Instructions .Route 07/22/23 12/10/23 .COMPLEX Blood Thinner Previous Rx's Medication Instructions Recorded albuterol sulfate 90 mcg/actuation 2 puff inhalation Q4-6H PRN 07/31/20 aerosol inhaler shortness of breath or wheezing #6.7 grams ondansetron 4 mg disintegrating 4 mg PO Q8H PRN nausea and 08/07/23 tablet vomiting #30 tabs atorvastatin 20 mg tablet 20 mg PO DAILY High cholesterol 09/18/23 #90 tabs alendronate 70 mg tablet 70 mg PO WEEKLY . 6 months #26 tabs 11/16/23 lisinopril 5 mg tablet 5 mg PO DAILY BLOOD PRESSURE #90 11/16/23 tabs varenicline 0.5 mg (11)-1 mg (42) See Rx Instructions PO PER PKG DIR 11/16/23 tablets in a dose pack (Chantix SMOKING CESSATION #53 tabs Starting Month Box) hydrocodone 7.5 mg-acetaminophen 1 tab PO QID Pain #120 tabs 11/17/23 325 mg tablet clonazepam 0.5 mg tablet (Klonopin) See Rx Instructions PO TID PRN 12/03/23 anxiety #90 tabs benzonatate 100 mg capsule 100 mg PO BID PRN cough #20 caps 12/10/23 Allergies Allergy/AdvReac Type Severity Reaction Status Date / Time ibuprofen [IBUPROFEN] Allergy Unknown SOB Verified 12/10/23 15:27 tramadol [TRAMADOL] Allergy Unknown HEART RACES Verified 12/10/23 15:27 Worker's Comp Is this a Worker's Comp case?: No [facility] Disclaimer: The information contained in this section may have been updated after the patient was seen, as this information can be updated by other users. Medical History Abnormal cardiovascular stress test Carotid artery stenosis Generalized anxiety disorder Patient is following with Jennifer Nicholson. Jennifer is prescribing the clonazepam. Mixed stress and urge urinary incontinence Patient is taking miragegron and oxybutynin. Tobacco dependence syndrome Typical angina Surgical History H/O aortic valve replacement Patient is following with cardiology at [facility] in [place]. Additionally she is following at the Coumadin clinic at [facility]. History of hysterectomy Family History Other Cancer Stroke Social History Smoking Status: Current every day smoker tobacco type: cigarettes packs per day: 1 second hand exposure: Yes alcohol intake: never substance use type: denies use current occupational status: employed Travel in the last 8 weeks: None household members: children housing: house number of children: 3 current occupation: [employer] current occupational exposures/hazards: No caffeine: Yes ROS Obtained: Yes All systems reviewed & no additional complaints except as documented and Yes Systems reviewed as appropriate & no additional complaints except as documented Constitutional Constitutional: Reports system reviewed and no additional complaints, except as documented, Reports as per HPI, Reports body ache, Reports chills, Reports fever(s) and Reports headache(s) ENT Ears, Nose, Mouth, and Throat: Reports system reviewed and no additional complaints, except as documented, Reports as per HPI, Reports headache(s) and Reports nasal congestion Cardiovascular Cardiovascular: Reports system reviewed and no additional complaints, except as documented and Reports as per HPI Respiratory Respiratory: Reports system reviewed and no additional complaints, except as documented, Reports as per HPI, Reports shortness of breath (at times on and off) and Reports cough Gastrointestinal Gastrointestingal: Reports system reviewed and no additional complaints, except as documented and as per HPI Neurologic Neurologic: Reports headache(s) Physical Exam General General appearance: alert and in no apparent distress ENT ENT exam: Present mucous membranes moist Expanded ENT Exam Nose exam: Absent sinus tenderness Throat exam: Present normal inspection Chest Chest inspection: Present normal inspection and symmetric chest wall rise Respiratory Respiratory exam: Present normal lung sounds bilaterally; Absent respiratory distress or wheezes Cardiovascular Cardiovascular exam: Present regular rate, normal rhythm and normal heart sounds Abdominal Exam Abdominal exam: Present soft and normal bowel sounds; Absent distention or tenderness Neurological Exam Neurological exam: Present alert, oriented X3 and normal gait Medical Decision Making Wilian Inquiry Pt receiving controlled substance: No Wilian was queried for this patient: No Vital Signs: 12/14/23 12:55 Temperature 98.3 F Temperature Source Oral Pulse Rate [Left Brachial] 73 Respiratory Rate 20 Blood Pressure [Left Arm] 155/95 H Blood Pressure Mean [Left Arm] 115 Blood Pressure Source [Left Arm] Automatic Cuff Blood Pressure Position [Left Arm] Sitting 02 Sat by Pulse Oximetry 98 Oxygen Delivery Method Room Air Orders (Tests/Meds): ORDERS Category Date Time Status Covid-19 Nasal PCR ([facility]) Routine Lab 12/14/23 13:30 Received
[2023-12-14 13:28] VITALS: BP 155/95; PULSE 73; RESP 20; TEMP 36.8; O2SAT 98
== END 2023-12-14 13:31 | disposition home or self-care (01) ==
PROVIDERS: Emergency Provider Nurse Practitioner; PCP Internal Medicine
DX: R51.9 Headache, unspecified (principal); R05.9 Cough, unspecified; R42 Dizziness and giddiness; R06.02 Shortness of breath; R11.0 Nausea; J34.89 Other specified disorders of nose and nasal sinuses; I65.29 Occlusion and stenosis of unspecified carotid artery; F41.1 Generalized anxiety disorder; I20.9 Angina pectoris, unspecified; F17.210 Nicotine dependence, cigarettes, uncomplicated
CPT/HCPCS: 87635; 99212; 99213; G0463

== ENCOUNTER 2023-12-23 10:05 | Outpatient (CLI) | payer OTHER, SELFPAY ==
[2023-12-23 11:50] LABS: PHA INR Fingerstick 2.2 (0.9-1.1)
== END 2023-12-23 11:52 ==
LOC: ACC 10:06
PROVIDERS: PCP Internal Medicine; Visit Provider Nurse Practitioner Family
DX: Z51.81 Encounter for therapeutic drug level monitoring (principal); Z79.01 Long term (current) use of anticoagulants
CPT/HCPCS: 85610; 99211; G0463

== ENCOUNTER 2023-12-23 22:14 | Outpatient (CLI) | payer OTHER, SELFPAY ==
[2023-12-23 23:30] LABS: Amphetamine/Metha Screen,Urine Negative ng/ml (<1000); Barbiturates Screen,Urine Negative ng/ml (<200); Benzodiazepines Screen,Urine Negative ng/ml (<200); Cannabinoid Screen,Urine Negative ng/ml (<50); Cocaine Screen,Urine Negative ng/ml (<300); Methadone Screen,Urine Negative ng/ml (<300); Opiate Screen,Urine Positive ng/ml (<300); Phencyclidine Screen,Urine Negative ng/ml (<25)
== END 2023-12-23 23:59 ==
LOC: LAB.DROPOF 22:14
PROVIDERS: PCP Internal Medicine; Visit Provider Internal Medicine
DX: Z79.899 Other long term (current) drug therapy (principal)
CPT/HCPCS: 80307

== ENCOUNTER 2024-01-08 13:57 | Outpatient (CLI) | payer OTHER, SELFPAY ==
[2024-01-08 15:13] LABS: PHA INR Fingerstick 2.3 (0.9-1.1)
== END 2024-01-08 15:25 ==
LOC: ACC 13:58
PROVIDERS: PCP Internal Medicine; Visit Provider Nurse Practitioner Family
DX: Z51.81 Encounter for therapeutic drug level monitoring (principal); Z79.01 Long term (current) use of anticoagulants
CPT/HCPCS: 85610; 99211; G0463

== ENCOUNTER 2024-02-03 11:13 | Outpatient (POV) | payer OTHER, SELFPAY ==
[2024-02-03 11:23] VITALS: BP 145/95; PULSE 63; RESP 20; BMI 17.2
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
== END 2024-02-03 23:59 ==
LOC: SC.PAIN 11:14
PROVIDERS: PCP Internal Medicine; Visit Provider Nurse Practitioner Family
DX: M50.123 Cervical disc disorder at C6-C7 level with radiculopathy (principal); G89.4 Chronic pain syndrome; M51.16 Intervertebral disc disorders with radiculopathy, lumbar region; M25.519 Pain in unspecified shoulder
CPT/HCPCS: 99212; G0463

== ENCOUNTER 2024-02-12 09:07 | Outpatient (CLI) | payer OTHER, SELFPAY ==
[2024-02-12 09:47] LABS: PHA INR Fingerstick 1.6 (0.9-1.1)
== END 2024-02-12 09:50 ==
LOC: ACC 09:08
PROVIDERS: PCP Internal Medicine; Visit Provider Internal Medicine
DX: Z79.01 Long term (current) use of anticoagulants (principal); Z51.81 Encounter for therapeutic drug level monitoring
CPT/HCPCS: 85610; 99211; G0463

== ENCOUNTER 2024-02-17 11:46 | Outpatient (CLI) | payer OTHER, SELFPAY ==
[2024-02-17 13:14] LABS: Chol/HDL Ratio 4.8 (1-3.5); Cholesterol 189 mg/dl (140-200); HDL Cholesterol 39 mg/dl (40-60); Triglycerides 112 mg/dl (30-150); VLDL Cholesterol 22 mg/dL (0-40)
[2024-02-17 13:25] LABS: Direct LDL Cholesterol 100.83 mg/dL (100-129)
== END 2024-02-17 23:59 ==
LOC: LAB.DROPOF 11:47
PROVIDERS: PCP Internal Medicine; Visit Provider Internal Medicine
DX: E78.5 Hyperlipidemia, unspecified (principal)
CPT/HCPCS: 80061

== ENCOUNTER 2024-02-18 10:14 | Outpatient (CLI) | payer OTHER, SELFPAY ==
--- NOTE | 2024-02-18 10:18 | XR_ITS ---
FINAL REPORT CLINICAL HISTORY: pain in ribs from fall right sided rib pain COMPARISON: 12/11/2023 FINDINGS: 2 views of the chest were obtained . Patient is status post median sternotomy. There is rightward curvature noted of the spine. The heart is normal in size. The mediastinum is within normal limits. The lungs are clear. There is no pneumothorax. Osseous structures are otherwise unremarkable. IMPRESSION: No acute cardiopulmonary process. Reviewed, Interpreted and Dictated by Jefe Rashid III, MD Transcribed by Lia Rodriguez Authenticated and [facility]
== END 2024-02-18 23:59 ==
LOC: RAD 10:14
PROVIDERS: PCP Internal Medicine; Visit Provider Internal Medicine
DX: R07.81 Pleurodynia (principal)
CPT/HCPCS: 71046

== ENCOUNTER 2024-02-23 09:00 | Day surgery (SDC) | payer OTHER, SELFPAY ==
[2024-02-23 09:44] LABS: INR 1.06 (0.9-1.1); Prothrombin Time 11.4 seconds (10.1-12.5)
[2024-02-23 09:53] VITALS: BP 131/77; PULSE 61; RESP 18; TEMP 36.6; O2SAT 99; BMI 17.2
[2024-02-23] MEDS: IOPAMIDOL-200 (41%);10ML VIAL 10 ML IV (10:13)
--- NOTE | 2024-02-23 10:16 | P.PCN_ITS ---
Procedure Date: 02/23/24 Time: 10:10 Anesthesiologist:: Sebastian Camejo CRNA Complications:: None Pre-procedure Diagnosis:: Degenerative disc cervical spine. Cervical radiculopathy. Post-procedure Diagnosis:: Same. Indications for Procedure:: Patient is a very pleasant 48-year-old female comes our clinic today for cervical epidural steroid injection. Patient had this in the past with significant improvement terms of her overall cervical neck pain as well as bilateral arm radicular symptoms. She rates her pain today 6/10 Procedure Details:: Procedure:Cervical epidural steroid injection Informed consent was obtained and the risks and benefits of the procedure were explained to the patient. The patient was taken to the procedure room and noninvasive monitors placed, including noninvasive blood pressure cuff and pulse oximeter. The neck was prepped using Chloraprep as a cleansing solution. The C6- C7 interspace was viewed using fluroscopy. The skin and subcutaneous tissues were anesthetized using lidocaine 1.5% and a 25-gauge needle. After this an 18- gauge Touhy epidural needle was placed into the C6-C7 interspace under fluroscopy guidance and advanced using loss of resistance to air until the epidural space was encountered. After confirmation of needle placement in the epidural space using contrast dye, a solution containing normal saline, 2 mL and Depo-Medrol 80 mg was incrementally injected into the cervical epidural space.~ The patient tolerated the procedure well with no complications. The patient was observed in the Pain Clinic and then discharged home neurologically intact. Plan and Disposition:: Patient was discharged without incident.
[2024-02-23 10:17] VITALS: BP 142/90; PULSE 64; RESP 18; O2SAT 99
[2024-02-23 10:35] VITALS: BP 131/94; PULSE 65; RESP 18; O2SAT 98
[2024-02-23] MEDS: methylPREDNISolone ACETATE 80MG/ML VIAL 80 MG (10:35)
[2024-02-23 10:36] VITALS: BP 131/94; PULSE 65; RESP 18; O2SAT 98
== END 2024-02-23 10:17 | disposition home or self-care (01) ==
PROVIDERS: PCP Internal Medicine; Visit Provider Nurse Anesthetist, Certified Registered
DX: M50.123 Cervical disc disorder at C6-C7 level with radiculopathy (principal)
CPT/HCPCS: 36415; 62321; 85610; J1040; Q9966

== ENCOUNTER 2024-03-10 11:32 | Outpatient (POV) | payer OTHER, SELFPAY ==
[2024-03-10 11:41] VITALS: BP 123/78; PULSE 62; RESP 18; O2SAT 98; BMI 17.5
--- NOTE | 2024-03-10 11:54 | A.OFFVIS_ITS ---
[facility] Pain Management SOAP Note Subjective:: Patient is a pleasant 48-year-old female who presents today for follow-up of cervical epidural steroid injection C6-C7 on 02/23/2024. Today she rates her pain at a 5 out of 10. Patient states she has had at least 90 to 95% improvement following this injection. She states that it is still continuing to provide additional relief. She states that she is able to move her neck and upper extremities much easier and had better range of motion with decreased pain. Today she states that all of her pain is related to her low back that is going into her bilateral lower extremities. She describes this as a sharp constant sensation with numbness and tingling down her entire extremities. She states that it is worse with prolonged standing or walking but is also very positional. Patient does state that the pain interferes with her ability perform activities of daily living such as cooking and cleaning. Patient has had previous lumbar epidural back in March 2023 that did provide 85% relief lasting several months. She is interested in repeating this injection today. Patient is prescribed [place] and clonazepam from an outside provider. Her Wilian has been reviewed and is appropriate. Review of Systems: General: No recent weight changes, no fever, no sleep disturbances Respiratory: No cough, no shortness of air, no recurring pulmonary infections Cardiovascular/peripheral vascular: No chest pain, no palpitations, no edema, no shortness of breath Gastrointestinal: No new onset incontinence, normal bowel movements reported Genitourinary: No new onset incontinence Musculoskeletal: Low back pain, bilateral leg pain Psychiatric: [Normal mood/affect] Neurological: [Denies weakness in extremities], [denies balance issues] Objective:: Physical Exam: General: Alert and oriented x3, no acute distress, pleasant and cooperative Lungs: Respirations even and unlabored, symmetrical chest expansion Eyes: PERRL Musculoskeletal: Flexion and extension of lumbar [spine] somewhat guarded secondary to pain, [antalgic gait noted] Neurological: Speech clear, no gross sensory deficit Assessment:: Degenerative disc disease of cervical and lumbar spine with cervical and lumbar radiculopathy symptoms, low back pain, neck pain, shoulder pain Plan:: Patient is experiencing worsening pain in her low back and legs with limited range of motion of her lumbar spine. Patient was discussed that she may benefit from a repeat lumbar epidural steroid injection. Patient did previously have her last lumbar epidural on March 31, 2023 that did provide 85% improvement lasting several months. Risk and benefits were discussed regarding this injection and she would like to proceed forward with this plan of care. Patient has tried and failed conservative therapy. Patient is currently on warfarin that is managed by the Coumadin clinic and we will reach out to them to confirm that she can stop this medication prior to this injection. Patient will be scheduled for a LES I L4-L5 under fluoroscopy. Patient has been instructed to contact the clinic with any concerns before the next appointment. Dr. Miller has reviewed this note and agrees with this plan of care. This note was dictated using voice recognition software and make contain errors or omissions. [facility] Disclaimer: The information contained in this section may have been updated after the patient was seen, as this information can be updated by other users. Medical History Mixed stress and urge urinary incontinence Patient is taking miragegron and oxybutynin. Generalized anxiety disorder Patient is following with Jennifer Nicholson. Jennifer is prescribing the clonazepam. Carotid artery stenosis Abnormal cardiovascular stress test Tobacco dependence syndrome Typical angina Surgical History History of hysterectomy H/O aortic valve replacement Patient is following with cardiology at [facility] in [place]. Additionally she is following at the Coumadin clinic at [facility]. Family History Other Cancer Stroke Social History Smoking Status: Current every day smoker tobacco type: cigarettes packs per day: 1 second hand exposure: Yes alcohol intake: never substance use type: denies use current occupational status: other Travel in the last 8 weeks: None household members: children housing: house number of children: 3 current occupation: [employer] current occupational exposures/hazards: No caffeine: Yes
[2024-03-10 12:56] LABS: PHA INR Fingerstick 1.5 (0.9-1.1)
== END 2024-03-10 23:59 ==
PROVIDERS: Nurse Practitioner Family; PCP Internal Medicine; Visit Provider Nurse Practitioner Family
DX: M50.123 Cervical disc disorder at C6-C7 level with radiculopathy (principal); M51.16 Intervertebral disc disorders with radiculopathy, lumbar region; M25.519 Pain in unspecified shoulder
CPT/HCPCS: 85610; 99211; 99212; G0463

== ENCOUNTER 2024-03-22 17:24 | Outpatient (CLI) | payer OTHER, SELFPAY | END 2024-03-22 23:59 | disposition home or self-care (01) | LOC: RT 17:25 | PROVIDERS: PCP Internal Medicine; Visit Provider Internal Medicine | DX: R07.9 Chest pain, unspecified (principal); I20.89 Other forms of angina pectoris; I35.1 Nonrheumatic aortic (valve) insufficiency; R94.31 Abnormal electrocardiogram [ECG] [EKG]; I10 Essential (primary) hypertension; I65.23 Occlusion and stenosis of bilateral carotid arteries; Z95.2 Presence of prosthetic heart valve; F17.200 Nicotine dependence, unspecified, uncomplicated; Z72.0 Tobacco use | CPT/HCPCS: 93270 ==

== ENCOUNTER 2024-04-21 08:39 | Outpatient (CLI) | payer OTHER, SELFPAY ==
[2024-04-06 14:38] VITALS: BMI 16.6
--- NOTE | 2024-04-21 08:40 | CA_ITS ---
APPROVED REPORT EXAM: Comprehensive 2D, Doppler, and color-flow Echocardiogram Resizer Operator: Aixa Murphy, KHADIJAH, RVS Ht: 5 ft 4 in Wt: 99lbs BSA: 1.45 BP: 154/88 mmHg Indications: Mechanincal AVR 2020, CP, Dizziness, AI, Abn ekg, Smoker, SOB, HTN 2D Dimensions Left Atrium 2.55 cm LA Volume 45.80 mL LA Volume Index 30.70 mL/m2 (M/F) 16-34 M-Mode Dimensions RVDd 1.81 cm (0.9-2.6) LA Diam 3.00 cm (1.9-4.0) LVDd 4.28 cm (3.5-5.7) LVDs 2.97 cm (3.5-5.7) IVSd 1.05 cm (0.6-1.1) PWd 0.67 cm (0.6-1.1) EF (Teich) 58.40% EPSs 0.85 cm FS 30.60% EDV (Teich) 82.20 mL TAPSE 1.78 (<1.7) ESV (Teich) 34.20 mL LV Diastology E Decel Time 243 (160-240 msec) E/A Ratio 0.96 MED A' 12.20 cm/s LAT A' 8.10 cm/s Aortic Valve ROB Index 0.45 cm2/m2 AoV Peak Chase. 315.0 (50-130 cm/s) AI PHT 293.00 ms AO Peak GR. 39.60 mmHg AO Mean GR. 20.50 (<5 mmHg) AO VTI 64.2 (18-25 cm) ROB (VTI) 0.67 (2.5-4.5 cm2) Mitral Valve MV A Velocity 77.0 (40-130 cm/s) E/A Ratio 0.96 Pulmonary Valve PV Peak Velocity 82.0 (50-150 cm/s) PA End VMAX 185.0 cm/s Tricuspid Valve TR P. Velocity 264.00 cm/s RAP Estimate 10.00 mmHg RVSP 37.80 mmHg Left Ventricle The left ventricle is normal size. The left ventricular systolic function is normal. The left ventricular ejection fraction is within the normal range. There is increased LV wall thickness. There is normal LV segmental wall motion. The left ventricular diastolic function is normal. LVEF is 60%. Right Ventricle The right ventricle is normal size. The right ventricular systolic function is normal. Atria The left atrium is moderately dilated. The right atrium size is normal. There is no Doppler evidence of interatrial shunt. Aortic Valve s/p mechanical AVR. The prosthesis is well-seated. Peak velocity 3.1 m/s. Mean AV gradient 20 mmHg. Max AV gradient 38 mmHg. DVI=0.27. Acceleration time 86 ms. High transaortic velocities in this setting is most likely related to patient-prosthesis mismatch (PPM). Mild aortic regurgitation. Mitral Valve The mitral valve is normal in structure. No evidence of mitral valve stenosis. There is no mitral valve regurgitation noted. Tricuspid Valve The tricuspid valve leaflets are thin and pliable. Mild tricuspid regurgitation. RVSP is 30-35 mmHg. Pulmonic Valve The pulmonary valve is normal in structure. Trace pulmonic regurgitation. Great Vessels The aortic root is normal in size. The ascending aorta is normal in size. IVC is normal in size and collapses >50% with inspiration. Pericardium There is no pericardial effusion. Other Information Study Quality: Fair Conclusion Normal biventricular systolic function. Moderate LA dilation. s/p mechanical AVR (Peak velocity 3.1 m/s. Mean AV gradient 20 mmHg. Max AV gradient 38 mmHg. DVI=0.27. Acceleration time 86 ms) Mild AI. Mild TR. With regards to the mechanicl AVR gradients, high transaortic velocities in this setting is most likely related to patient-prosthesis mismatch (PPM). Serial TTEs are recommended to evaluate change in gradients/velocities. Clinical correlation is also recommended. Electronically signed by : Terri Jackson MD 04/21/2024 14:27:19
[2024-04-21 13:28] LABS: Basophils # 0.1 K/mm3 (0-0.2); Basophils % 0.8 % (0.1-2.0); Eosinophils # 0.7 K/mm3 (0.0-0.4); Eosinophils % 6.4 % (0.1-12.0); Hematocrit 43.6 % (37.0-47.0); Lymphocytes # 2.5 K/mm3 (0.7-4.5); Lymphocytes % 23.4 % (10-50); Mean Corpuscular HGB Conc 32.1 g/dL (31.8-35.4); Mean Corpuscular Hemoglobin 31.8 pg (27.0-31.2); Mean Platelet Volume 9.1 fl (7.4-10.4); Monocytes # 0.6 K/mm3 (0.1-1.0); Monocytes % 5.6 % (1.7-9.3); Neutrophils # 6.9 K/mm3 (1.8-7.8); Neutrophils % 63.8 % (37.0-80.0); Platelet Count 275 K/mm3 (142-424); Red Blood Count 4.41 M/mm3 (4.20-5.40); White Blood Count 10.8 K/mm3 (4.8-10.8)
[2024-04-21 13:34] LABS: INR 1.09 (0.9-1.1); Prothrombin Time 11.7 seconds (10.1-12.5)
[2024-04-21 14:05] LABS: Chloride 104 mmol/L (98-107)
[2024-04-21 14:06] LABS: Potassium 4.1 mmoL/L (3.5-5.1); Sodium 138 mmol/L (136-145)
[2024-04-21 14:08] LABS: Alanine Aminotransferase 23 U/L (12-78); Anion Gap 10.1 mEq/L (5-15); Aspartate Amino Transferase 33 U/L (14-36); Bilirubin,Unconjugated 0.3 mg/dL (0.0-1.1); Blood Urea Nitrogen 3 mg/dl (7-17); Carbon Dioxide 28 mmol/L (22.0-30.0); Cholesterol 190 mg/dl (140-200); Creatinine Clearance Estimated 81 mL/min (50-200); Estimated Glomerular Filt Rate 108 ml/min (>60); GFR (African American) 130 ML/MIN (>60); Triglycerides 98 mg/dl (30-150); VLDL Cholesterol 20 mg/dL (0-40)
[2024-04-21 14:09] LABS: Albumin Level 4.2 g/dl (3.5-5.0); Alkaline Phosphatase 99 U/L (38-126); Bilirubin,Direct 0.3 mg/dl (0.0-0.4); Bilirubin,Indirect 0.2 mg/dL (0.0-0.9); Bilirubin,Total 0.5 mg/dl (0.2-1.3); Calcium 9.5 mg/dl (8.4-10.2); Chol/HDL Ratio 3.5 (1-3.5); Glucose 107 mg/dl (74-100); HDL Cholesterol 55 mg/dl (40-60); Iron 105 ug/dL (37-170); Total Protein,Serum 7.2 g/dl (6.3-8.2)
[2024-04-21 14:20] LABS: Direct LDL Cholesterol 104.19 mg/dL (100-129)
[2024-04-21 14:25] LABS: Total Iron Binding Capacity 285 ug/dL (265-497)
[2024-04-21 14:57] LABS: Free T4 (Free Thyroxine) 1.13 ng/dl (0.78-2.19)
[2024-04-21 15:27] LABS: Thyroid Stimulating Hormone 1.62 uIU/mL (0.465-4.68)
[2024-04-21 15:31] LABS: Ferritin 71.7 ng/ml (6.24-137)
== END 2024-04-21 23:59 | disposition home or self-care (01) ==
PROVIDERS: PCP Internal Medicine; Visit Provider Internal Medicine
DX: R06.02 Shortness of breath (principal); R07.9 Chest pain, unspecified; R94.31 Abnormal electrocardiogram [ECG] [EKG]; I10 Essential (primary) hypertension; I35.1 Nonrheumatic aortic (valve) insufficiency; I20.89 Other forms of angina pectoris; I65.23 Occlusion and stenosis of bilateral carotid arteries; Z72.0 Tobacco use; Z95.2 Presence of prosthetic heart valve; Z79.899 Other long term (current) drug therapy; Z79.01 Long term (current) use of anticoagulants
CPT/HCPCS: 36415; 80048; 80061; 80076; 82728; 83540; 83550; 83735; 84439; 84443; 85025; 85610; 93306

== ENCOUNTER 2024-04-29 12:24 | Outpatient (CLI) | payer OTHER, SELFPAY ==
--- NOTE | 2024-04-29 12:25 | CT_ITS ---
APPROVED REPORT Synthetic Plasterer: CLINICAL INDICATION Chest Pain TECHNIQUE Image Acquisition: A 128 slice MDCT scanner ([employer]achi Quickshifta View) was used for data acquisition. A noncontrast coronary calcium scan was performed. A CT attenuation threshold of 130 Hounsfield units (HU) was used for the detection of calcium in contiguous voxels of 1 sq mm in area to be counted as individual lesions. Bolus tracking in the ascending aorta with a threshold of 180 HU was performed. Immediately afterwards, ECG synchronized cardiac CT was then performed from the cardiac base to apex using retrospective gating with ECG tube current modulation. A total of 85 mL of Isovue 370 mg/mL contrast medium was administered at 5 mL/sec followed by a saline flush using a biphasic injection protocol. A tube voltage of 120 KVp was used. The patient received the following medications prior to the cardiac CT. 50 mg of oral metoprolol 15 mg of oral ivabradine 0.8 mg of sublingual nitroglycerin The average heart rate at the time of acquisition was 62 bpm and regular. Image Reconstruction Transaxial images were reconstructed at 0.67 mm slide thickness. Data was reviewed interactively on an advanced workstation capable of 2 and 3-dimensional displays in all conventional reconstruction formats, including multiplanar reformations, maximum intensity projections, curved multiplanar reformations, and volume rendered reconstructions. When applicable, selected routine images describing the relevant coronary anatomy and pathology were saved and sent to PACS. Complications None Technical Quality Overall image quality was suboptimal in the setting of significant artifact from mechanical AVR Coronary artery opacification was adequate. Total DLP (Dose-Length Product) is 2323.6 mGy-cm. The reported value represents the total of one or more individual components during the CT acquisition of this date and at this time, and as such, the same value may appear in more than one CT report depending on the interpreting/reporting physicians. COMPARISON None FINDINGS CT Coronary Calcium Scoring: Cannot be performed due to significant artifact related to mechanical AVR. The interpretation of the calcium heart score is based on the following continuum*: 0 = no calcified plaque detected (risk of coronary artery disease is very low ??? less than 5%) 1-10 = calcium detected in extremely minimal levels (risk of coronary diseases is still low ??? less than 10%) 11-100 = mild levels of plaque detected with certainty (mild or minimal narrowing of heart arteries is likely) 101-400 = definite,at least moderate levels of plaque detected (relatively high risk of a heart attack within 3-5 years) >401-999 = extensive levels of plaque detected (high risk of heart attack, high levels of vascular disease are present, high likelihood of at least one significant coronary narrowing) *The calcium heart score quantifies the burden of coronary calcification/plaque in the coronary arteries. The calcium heart score is not able to evaluate the presence or burden of non-calcified (i.e. soft) plaque. There is grossly no identifiable calcification in the aortic valve, mitral annulus or mitral valve, pericardium, or myocardium. Coronary CT Angiography The coronary arterial system is right dominant. Quantitative Stenosis Grading: Left Main (LM): The left main originates normally from the left sinus of Valsalva. The LM bifurcates into the left anterior descending artery and left circumflex artery. The LM is patent with no evidence of atherosclerosis. Left Anterior Descending (LAD) and Diagonal Branches: The LAD gives off 2 diagonal branch(es). The LAD and its branches are patent with no evidence of atherosclerosis. There is a small segment of the proximal LAD and the first diagonal branch but cannot be evaluated due to significant artifact. There is no evidence of LAD-myocardial bridge. Left Circumflex (LCX) and Obtuse Marginals (OM): The LCX gives off 1 Obtuse Marginal (OM) branch(es). The LCX and its branches are patent with no evidence of atherosclerosis. Right Coronary Artery (RCA): The RCA originates normally from the right sinus of Valsalva. The RCA gives off a posterior descending artery (PDA) and posterolateral (PL) branches. The RCA and its branches are patent with no evidence of atherosclerosis. Non-Coronary Cardiac Findings: Analysis of the left ventricular (LV) structure and function was performed after 3-D reconstruction of the LV from axial images, with user-corrected automatic contouring for assessment of LV volumes and user-defined reconstruction from oblique planes for measurement of 3-D cardiac structure and function. -The left ventricle systolic function is normal. -The left atrial appendage is not well-visualized, possibly patient had undergone NICK resection at the time of mechanical AVR placement. Two right pulmonary veins and two left pulmonary veins drain normally into the left atrium. -No pericardial thickening or calcification. -Central and branch pulmonary arteries in the [id number] are unremarkable. -Thoracic aorta within the visualized thoracic aortic-branches in the [id number] is unremarkable. Extracardiac Structures No significant extra-cardiac findings. Note, however, that this study is focused on the cardiac findings. IMPRESSION -Suboptimal image quality in the setting of significant artifact from mechanical AVR -Unable to quantify coronary calcium score due to significant artifact as noted above. -No evidence of significant flow-limiting atherosclerosis of the visualized coronary arteries. There is a segment of the proximal LAD and first diagonal branch that cannot be evaluated due to artifact. -CAD-RADS 0. Management recommendations per ACC/AHA guidelines*, as clinically appropriate. -s/p mechanical AVR. The AV prosthesis is well-seated. The mechanical discs are in their normal positions with normal mobility. No evidence of masses or thrombi. *Recommendations: CAD RADS 0: Reassurance. Consider non-atherosclerotic causes of chest pain. CAD RADS 1: Consider non-atherosclerotic causes of chest pain. Consider preventive therapy and risk factor modification. CAD RADS 2: Consider non-atherosclerotic causes of chest pain. Consider preventive therapy and risk factor modification, particularly for patients with nonobstructive plaque in multiple segments. CAD RADS 3: Consider further functional testing. Consider symptom-guided anti-ischemic and preventive pharmacotherapy as well as risk factor modification per published guideline statements. CAD RADS 4A: Consider further functional testing or invasive coronary angiography with revascularization per published guideline statements. Consider symptom-guided anti-ischemic and preventive pharmacotherapy as well as risk factor modification per published guideline statements. CAD RADS 4B: Invasive coronary angiography recommended with revascularization per published guideline statements. Consider symptom-guided anti-ischemic and preventive pharmacotherapy as well as risk factor modification per published guideline statements. CAD RADS 5: Consider invasive angiography and/or viability assessment with revascularization per published guideline statements. Consider symptom-guided anti-ischemic and preventive pharmacotherapy as well as risk factor modification per published guideline statements. CRITICAL RESULT None COMMUNICATION Per this written report The coronary and cardiac findings of this CCTA were reviewed, reported, and signed by Suhail Jackson MD (Air Conditioning Sheet Metal Installer) Conclusion Electronically signed by : Terri Jackson MD 05/03/2024 16:44:02
[2024-04-29 12:33] VITALS: BMI 16.8
[2024-04-29] MEDS: IVABRADINE HCL 7.5MG TABLET PO (12:40)
[2024-04-29] MEDS: METOPROLOL TARTRATE 50MG TABLET PO (12:40)
[2024-04-29 12:49] VITALS: BP 169/109; PULSE 97; RESP 18; TEMP 36.6; O2SAT 100
[2024-04-29 13:02] VITALS: BP 176/102; PULSE 56; RESP 18; O2SAT 99
[2024-04-29 13:06] VITALS: BP 173/101; PULSE 56; RESP 18; O2SAT 99
[2024-04-29] MEDS: NITROGLYCERIN 0.4MG SL TABLET SL (13:06)
[2024-04-29] MEDS: 0.9 % SODIUM CHLORIDE 50 ML VIAL IV (13:08)
[2024-04-29] MEDS: IOPAMIDOL-370 (76%);100ML BOTTLE 85 ML IV (13:08)
[2024-04-29] MEDS: SODIUM CHLORIDE 0.9% 10ML SYR (RAD ONLY) 10 ML IV (13:09)
[2024-04-29 13:12] VITALS: BP 128/77; PULSE 68; RESP 18; O2SAT 100
--- NOTE | 2024-04-29 13:21 | PC.NURSE ---
patient entered CT room
--- NOTE | 2024-04-29 13:22 | PC.NURSE ---
.8mg nitroglycerin given
--- NOTE | 2024-04-29 13:23 | PC.NURSE ---
post nitroglycerin VS
[2024-04-29 13:24] VITALS: BP 143/91; PULSE 56; RESP 18; O2SAT 100
--- NOTE | 2024-04-29 13:24 | PC.NURSE ---
patient back to room 3 in post op. VS stable
[2024-04-29 13:30] VITALS: BP 150/87; PULSE 56; RESP 18; O2SAT 100
== END 2024-04-29 13:49 | disposition home or self-care (01) ==
PROVIDERS: PCP Nurse Practitioner Family; Visit Provider Internal Medicine
DX: R06.00 Dyspnea, unspecified (principal); R94.31 Abnormal electrocardiogram [ECG] [EKG]; R07.9 Chest pain, unspecified; I20.89 Other forms of angina pectoris; I35.1 Nonrheumatic aortic (valve) insufficiency; I10 Essential (primary) hypertension; Z95.2 Presence of prosthetic heart valve
CPT/HCPCS: 75574; 85610; 99211; G0463; Q9967

== ENCOUNTER 2024-07-27 12:38 | Outpatient (CLI) | payer OTHER, SELFPAY ==
[2024-07-27 13:54] LABS: PHA INR Fingerstick 1.6 (0.9-1.1)
== END 2024-07-27 14:06 ==
LOC: ACC 12:40
PROVIDERS: PCP Nurse Practitioner Family; Visit Provider Nurse Practitioner Family
DX: Z79.01 Long term (current) use of anticoagulants (principal); Z95.2 Presence of prosthetic heart valve
CPT/HCPCS: 85610; 99211; G0463

== ENCOUNTER 2024-07-29 14:00 | Outpatient (CLI) | payer OTHER, SELFPAY ==
[2024-07-29 14:45] LABS: PHA INR Fingerstick 2.7 (0.9-1.1)
== END 2024-07-29 14:47 ==
LOC: ACC 14:02
PROVIDERS: PCP Nurse Practitioner Family; Visit Provider Nurse Practitioner Family
DX: Z79.01 Long term (current) use of anticoagulants (principal); Z95.2 Presence of prosthetic heart valve
CPT/HCPCS: 85610; 99211; G0463

== ENCOUNTER 2024-08-19 14:05 | Outpatient (CLI) | payer OTHER, SELFPAY ==
[2024-08-19 14:29] LABS: PHA INR Fingerstick 2.5 (0.9-1.1)
== END 2024-08-19 14:31 ==
PROVIDERS: PCP Nurse Practitioner Family; Visit Provider Nurse Practitioner Family
DX: Z79.01 Long term (current) use of anticoagulants (principal); Z95.2 Presence of prosthetic heart valve
CPT/HCPCS: 85610; 99211; G0463

== ENCOUNTER 2024-08-31 08:09 | Outpatient (CLI) | payer OTHER, SELFPAY ==
--- NOTE | 2024-08-31 | CA_ITS ---
APPROVED REPORT Exam: Pharmacologic Technologist: Jennifer Rogers, Ht: 5 ft 4 in Wt: 100 lbs BSA: 1.46 m2 HR: 55 bpm BP: 206/107 mmHg Indications: Hypertension, Shortness of Breath, Chest pain Medical History Medical History: HTN,SOA,CP Medications: Lisinopril,,,,, Clonidine,,,,, Warfarin,,,,, Metoprolol Tartrate,,,,, ClonAZEPAM,,,,, Albuterol,,,,, ADVAIR,,,,, Cefdinir,,,,, BenzONATATE,,,,, OxYbutynin,,,,, CHANTIX,,,,, ONdansetron,,,,, Allergies: Ibuprofen,tramadol Cardiac Risk Factors: HTN, FHX of CAD, Smoking Stress Test Details Test: LEXISCAN HR Resting HR: 58 bpm Max Heart Rate (APMHR): 173 bpm Max HR Achieved: 74 bpm Target HR (85% APMHR): 147 bpm % of APMHR: 43 Recovery HR: 68 bpm BP Resting BP: 206/107 mmHg Max BP: 206/107 mmHg Recovery BP: 188.0/98.0 mmHg ECG Resting ECG: Sinus bradycardia Stress ECG: No significant ST changes Arrhythmia: None Clinical Exercise duration: 04:00 min Highest Stage Achieved: Exercise capacity: 1.0 METs Stress ECG Conclusion Switched from exercise to lexiscan due to very high blood pressure. Patient given 0.05 mg PO of clonidine ay 0940. Bp 175/94 at 10:45. During infusion patient had mild head discomfort. No chest pain. No arrhythmias/ectopy. No significant ST changes Conclusion: Unremarkable Lexiscan stress. Myoview images reported separately. Of note the patient had elevated BP at baseline. BP control is recommended.. Test Summary REST . . . . . . . Resting REST 02:08 . . 58 . 206/107 . . Stage 1 . . . . . . . Myoview Injected Stage 1 01:00 . . 72 . . . . Stage 2 01:00 . . 69 . 169/ 93 . . Stage 3 01:00 . . 67 . 178/ 94 . . Stage 4 01:00 . . 65 . 185/103 . Stop exercise at 04:00 RECOVERY 01:00 . . 63 . 188/ 98 . . RECOVERY 02:00 . . 68 . 188/ 98 . . RECOVERY 03:00 . . 65 . 191/105 . . RECOVERY 03:46 . . 68 . 191/105 . . Electronically signed by : Terri Jackson MD 09/01/2024 12:27:35
--- NOTE | 2024-08-31 08:09 | NM_ITS ---
APPROVED REPORT Exam: Nuclear Stress Test Indication: Chest pain, SOB, Palpitations, Fatigue, HTN, Tobacco use, Family history, Hx of [place] Patient Location: Outpatient Stress Tech: Jennifer Rogers RI Tech:Judith Lazo, ARRT, RT (R)(N) Ht: 5 ft 4 in Wt: 100 lbs Bra Size: A HR: 58 bpm BP: 206/107 mmHg BSA: 1.46 m2 TID: 1.09 BMI: 17.1 History: Chest pain, SOB, Palpitations, Fatigue, HTN, Tobacco use, Family history, Hx of [place] Procedure: Patient received 0.4 mg of intravenous Lexiscan, resting heart rate 58 bpm, resting blood pressure 206/107 mmHg, with Lexiscan maximum heart rate achieved was 74 bpm which is % of the maximum predicted heart rate and blood pressure was 206/107 mmHg. With Lexiscan, patient denied any complaint of chest pain. Cardiac Stress and Resting SPECT Images: Cardiac Stress and Resting SPECT images were obtained using technetium 99m Myoview 31.4 mCi stress and 10.48 mCi at rest. Resting and stress imaging in supine and prone positions demonstrate no evidence of fixed or reversible perfusion defects. Gated imaging demonstrates normal global and regional LV systolic function. LVEF is calculated at 56%. Conclusion: No evidence of fixed or reversible perfusion defects. Gated imaging demonstrates normal global and regional LV systolic function. LVEF is calculated at 56%. Electronically signed by : Terri Jackson MD 09/01/2024 12:35:56
[2024-08-31] MEDS: SODIUM CHLORIDE 0.9% 10ML SYR (RAD ONLY) 10 ML IV ×2 (10:28)
[2024-08-31] MEDS: ISOTOPE MYOVIEW (PER STUDY) 1 DOSE IV (10:29)
[2024-08-31] MEDS: REGADENOSON 0.4MG/5ML SYRINGE 0.4 MG IV (11:05)
== END 2024-08-31 23:59 | disposition home or self-care (01) ==
LOC: RAD 08:09
PROVIDERS: PCP Nurse Practitioner Family; Visit Provider Internal Medicine
DX: I35.1 Nonrheumatic aortic (valve) insufficiency (principal); R07.9 Chest pain, unspecified; R06.02 Shortness of breath; I10 Essential (primary) hypertension; R42 Dizziness and giddiness
CPT/HCPCS: 78452; 93017; 93018; A9502; J2785

== ENCOUNTER 2024-10-04 10:06 | Outpatient (CLI) | payer OTHER, SELFPAY ==
--- NOTE | 2024-10-04 10:23 | MR_ITS ---
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 Chronic chest pain. Evaluation for structural heart disease. Suspected history of old myocardial infarct. TECHNIQUE Image Acquisition: Cardiac magnetic resonance (CMR) was performed on Siemens Espree MRI 1.5T scanner. Software platform sequences were performed using the Siemens Podcast Ready MR B19 platform. A set of three-plane, low-resolution, large [id number] localizers were initially acquired. Then axial, coronal, sagittal TrueFISP, as well as axial HASTE images, were obtained. These were followed by gated TrueFISP breathold cinematic sequences obtained in the short axis with 8 mm slices and 2 mm gaps, 2-chamber (vertical long axis), 3-chamber, 4-chamber (horizontal long axis). A bolus of contrast was injected intravenously with first-pass sequences obtained in the short axis and four-chamber planes. After approximately 10 minutes, a TI social security specialist sequence was performed to determine the optimal TI time. Using the optimized TI time, delayed contrast enhancement segmented inversion???recovery TurboFLASH sequences were obtained in the short axis, 2-chamber, 3-chamber, and 4-chamber projections. 2D-velocity phase mapping was performed. Functional parameters were calculated by offline analysis on an independent workstation (Undo [employer] Imaging Platform, Int[employer]). Contrast: ProHance??? (Gadoteridol) FINDINGS MORPHOLOGY AND FUNCTION Left ventricle: The left ventricle is normal in size. The indexed left ventricular end-diastolic volume (LVEDVi) is 67 ml/m2 (reference range 57-105 ml/m2 in males, 56-96 ml/m2 in females). Normal left ventricular systolic function is present. There is normal left ventricular wall thickness. There are no regional wall motion abnormalities noted. LVEF is calculated at 59.2% (reference range 57-77%). Right ventricle: The right ventricle is normal in size. The indexed right ventricular end-diastolic volume (RVEDVi) is 60 ml/m2 (reference range 61-121 ml/m2 in males, 48-112 ml/m2 in females). Normal right ventricular systolic function is present. RVEF is calculated at 56.7% (reference range 52-72% in males, 51-71% in females). Atria: The left atrium is normal in size. The maximum indexed left atrial volume is 39 ml/m2 (reference range 26-52 ml/m2 in males, 27-53 ml/m2 in females). The right atrium is normal in size. The maximum indexed right atrial volume is 19 ml/m2 (reference range 18-90 ml/m2). Aorta: The diameter of the aortic annulus is normal, measuring 20 mm (coronal view reference range 21-30 mm in males, 19-27 mm in females). The diameter of the aortic sinus is normal, measuring 28 mm (coronal view reference range 25-42 mm in males, 24-36 mm in females). The diameter of the sinotubular junction is normal, measuring 26 mm (coronal view reference range 18-32 mm in males, 18-28 mm in females). The diameters of the ascending and descending thoracic aorta are normal. Main pulmonary artery: The main pulmonary artery diameter is normal. Pericardium: The pericardial thickness is normal. The pericardial thickness measures 2.0 mm (normal < 4.0 mm). There is no pericardial effusion. VALVES The valvular morphologies in the visualized sequences appear normal. There is no significant valvular stenosis or regurgitation of the mitral, aortic, tricuspid, or pulmonic valve noted visually. Systolic anterior motion of the mitral valve is not visualized. Ratio of pulmonary to systemic flow, Qp:Qs ratio = 1.5 (normal < or = 1.2, hemodynamically significant shunt > 1.5), demonstrating possible evidence of hemodynamically significant shunt. TISSUE CHARACTERIZATION Resting Perfusion: Normal myocardial blood flow at rest. No evidence of resting hypoperfusion. Myocardial Fibrosis and/or edema: Normal gadolinium kinetics are present. No evidence of late gadolinium enhancement is noted, consistent with absence of myocardial scarring, infarction, or necrosis. T2-weighted imaging demonstrates no evidence of myocardial edema or inflammation. 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 IMPRESSION Normal LV size with normal LV systolic function. LVEDVi= 67 ml/m2 and LVEF= 59.2%. Normal RV size with normal RV systolic function. RVEDVi= 60 ml/m2 and RVEF= 56.7%. No atrial enlargement. s/p aortic valve replacement. The prosthesis leaflets are not well visualized on CMR. No CMR evidence of myocardial scarring, infarction, or necrosis. No evidence of myocardial edema or inflammation. Perfusion analysis demonstrates normal blood flow at rest with no evidence of resting hypoperfusion. Ratio of pulmonary to systemic flow, Qp:Qs ratio = 1.5 (normal < or = 1.2, hemodynamically significant shunt > 1.5), demonstrating possible evidence of hemodynamically significant shunt. 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 Overall, this CMR demonstrates normal biventricular size and systolic function. There is incidental finding of persistent left superior vena cava (PLSVC), draining into the right atrium. In the setting of borderline elevated Qp:Qs ratio, further evaluation is suggested, including limited TTE with agitated saline (bubble study) with IV placement specifically in the left arm to evaluate for RVOT vs. coronary sinus flow and rule out shunting, as well as to re-evaluate AVR gradients. Also, in the setting of chronic chest pain, further evaluation to confirm the diagnosis of PLSVC, as well as to rule out thrombosis vs. compression, is suggested. COMPARISON None CRITICAL RESULT None COMMUNICATION Per this written report The findings of this cardiac MR were reviewed, reported, and signed by Suhail Jackson MD (Legal Editor). Conclusion Electronically signed by : Terri Jackson MD 10/09/2024 17:01:23
[2024-10-04 10:39] LABS: Blood Urea Nitrogen 6 mg/dl (7-17); Estimated Glomerular Filt Rate 90 ml/min (>60); GFR (African American) 109 ML/MIN (>60)
[2024-10-04] MEDS: SODIUM CHLORIDE 0.9% 10ML SYR (RAD ONLY) 10 ML IV (12:09)
[2024-10-04] MEDS: 0.9 % SODIUM CHLORIDE 50 ML VIAL 20 ML IV (12:09)
[2024-10-04] MEDS: GADOTERIDOL INJ 10ML SYRINGE 10 ML IV (12:09)
== END 2024-10-04 23:59 | disposition home or self-care (01) ==
LOC: RAD 10:07
PROVIDERS: PCP Nurse Practitioner Family; Visit Provider Internal Medicine
DX: R94.31 Abnormal electrocardiogram [ECG] [EKG] (principal); R07.9 Chest pain, unspecified; Z95.2 Presence of prosthetic heart valve; R06.02 Shortness of breath; I10 Essential (primary) hypertension; Z72.0 Tobacco use
CPT/HCPCS: 36415; 75561; 82565; 84520; A9576

== ENCOUNTER 2024-10-12 12:41 | Outpatient (CLI) | payer OTHER, SELFPAY ==
--- NOTE | 2024-10-12 13:08 | XR_ITS ---
FINAL REPORT CLINICAL HISTORY: cough with hemoptysis COMPARISON: 02/18/2024 FINDINGS: CHEST 2 VIEWS PA AND LATERAL The heart is normal in size. Patient is status postmedian sternotomy. Small to right effusion is identified. There is no pneumothorax. There is an S-shaped scoliosis of the thoracolumbar spine. IMPRESSION: Small right effusion. Reviewed, Interpreted and Dictated by Jefe Rashid III, MD Transcribed by Alicia Sepulveda Authenticated and [facility]
[2024-10-12 13:36] LABS: PHA INR Fingerstick 1.9 (0.9-1.1)
== END 2024-10-12 13:38 ==
LOC: ACC 12:43
PROVIDERS: Internal Medicine Adolescent Medicine; PCP Nurse Practitioner Family; Visit Provider Nurse Practitioner Family
DX: R04.2 Hemoptysis (principal); Z79.01 Long term (current) use of anticoagulants
CPT/HCPCS: 71046; 85610; 99211; G0463

== ENCOUNTER 2024-10-28 10:38 | Outpatient (CLI) | payer OTHER, SELFPAY ==
--- NOTE | 2024-10-28 10:42 | CT_ITS ---
FINAL REPORT TECHNIQUE: Thin section axial images were obtained from the thoracic inlet through the upper abdomen after intravenous contrast injection. Reconstruction images were obtained from the axial data. Exam was performed using dose reduction technique. CLINICAL HISTORY: VENOUS CONTRAST, TO LOOK AT VEINS IN CHEST COPD, HYPERTENSION COMPARISON: None FINDINGS: There is no axillary lymphadenopathy. A 15 mm precarinal lymph node is noted. There is no hilar lymphadenopathy. There is no pleural or pericardial effusion. There is persistent left SVC. There are changes from emphysema. Evidence of prior granulomatous disease is noted. Limited evaluation of the upper abdomen is without acute abnormality. There is scoliosis. No acute osseous abnormality. IMPRESSION: No acute intrathoracic abnormality. Chronic findings as above. Reviewed, Interpreted and Dictated by Debby Sorto MD Transcribed by Jayde Delgado Authenticated and . [facility]
--- NOTE | 2024-10-28 10:44 | CA_ITS ---
APPROVED REPORT EXAM: Limited 2D Echocardiogram with contrast Union Contract Representative: KHADIJAH Lee, RVS Ht: 5 ft 4 in Wt: 101lbs BSA: 1.46 BP: 179/102 mmHg Indications: Persistent left SVC. Evaluate for shunt. History of AVR. Echo Enhancing Agent Indication: Rule out Shunt Agent(s) / Amount(s) Used: Agitated Saline 30 cc Comments: IV in left AC M-Mode Dimensions LA Diam 3.04 cm (1.9-4.0) LVDd 3.93 cm (3.5-5.7) LVDs 2.89 cm (3.5-5.7) EF (Teich) 52.50% FS 26.50% EDV (Teich) 67.10 mL ESV (Teich) 31.90 mL Aortic Valve ROB Index 0.40 cm2/m2 AoV Peak Chase. 327.0 (50-130 cm/s) AI PHT 450.00 ms AO Peak GR. 43.10 mmHg AO Mean GR. 22.30 (<5 mmHg) AO VTI 74.0 (18-25 cm) ROB (VTI) 0.60 (2.5-4.5 cm2) Other Information Study Quality: Adequate Conclusion This is a limited TTE to evaluate for shunt in the setting of persistent left superior vena cava (PLSVC). IV agitated saline was administered via the left upper extremity. This study demonstrates no evidence of intracardiac shunt. No evidence of shunting of the PLSVC directly into the left atrium via the coronary sinus. The patient is s/p mechanical AVR. The prosthesis is well-seated. The mean AV gradient is 21 mmHg. Max AV gradient 40 mmHg. Peak velocity 3.2 m/s. Acceleration time 83 ms. Mild AI is present. Compared to prior TTE from 04/21/2024, the transaortic prosthesis parameters are similar. Electronically signed by : Terri Jackson MD 10/28/2024 14:29:23
[2024-10-28] MEDS: SODIUM CHLORIDE 0.9% 10ML SYR (RAD ONLY) 10 ML IV (10:55)
[2024-10-28] MEDS: IOPAMIDOL-370 (76%);100ML BOTTLE 75 ML IV (10:56)
== END 2024-10-28 23:59 | disposition home or self-care (01) ==
LOC: RAD 10:40
PROVIDERS: PCP Nurse Practitioner Family; Visit Provider Physician Assistant
DX: R06.02 Shortness of breath (principal); R07.9 Chest pain, unspecified; R93.1 Abnormal findings on diagnostic imaging of heart and coronary circulation
CPT/HCPCS: 71260; 93308; Q9967

== ENCOUNTER 2024-11-17 11:45 | Outpatient (CLI) | payer OTHER, SELFPAY ==
--- NOTE | 2024-11-17 12:15 | XR_ITS ---
FINAL REPORT CLINICAL HISTORY: COPD COMPARISON: 10/12/2024 FINDINGS: No acute pulmonary density is evident. Note is made of emphysema. There is no evidence of effusion or other pleural disease. The pain is status post CABG and aortic valve replacement. The cardiac silhouette is unremarkable. There is moderate S-shaped scoliosis. IMPRESSION: No acute findings. Reviewed, Interpreted and Dictated by Nitish Matthews MD Transcribed by Alicia Sepulveda Authenticated and [facility]
== END 2024-11-17 16:26 ==
PROVIDERS: Nurse Practitioner Family; PCP Nurse Practitioner Family; Visit Provider Nurse Practitioner Family
DX: J44.9 Chronic obstructive pulmonary disease, unspecified (principal); R04.2 Hemoptysis; Z79.01 Long term (current) use of anticoagulants; Z95.2 Presence of prosthetic heart valve
CPT/HCPCS: 71046; 85610; 99211; G0463

== ENCOUNTER 2024-12-11 08:07 | Emergency (ER) | payer OTHER, SELFPAY ==
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
--- NOTE | 2024-12-11 08:03 | PC.NURSE ---
TRAUMA ALERT CALLED
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
[2024-12-11 08:07] VITALS: BP 157/107; PULSE 74; RESP 20; TEMP 36.8; O2SAT 98; BMI 18.0
--- NOTE | 2024-12-11 08:15 | ECG_ITS ---
APPROVED REPORT Exam: Resting ECG HR:69 bpm ECG Measurements Heart Rate 69 AXES DC 135 P 52 QRSd 80 QRS 33 QT 374 T 40 QTc 394 Conclusion Sinus rhythm Left atrial enlargement Incomplete right bundle branch block LVH Electronically signed by : TRESA GRIGGS, 12/12/2024 07:17:20
[2024-12-11 08:24] LABS: Basophils # 0.1 K/mm3 (0-0.2); Basophils % 0.5 % (0.1-2.0); Eosinophils # 0.8 K/mm3 (0.0-0.4); Eosinophils % 7.1 % (0.1-12.0); Hematocrit 41.7 % (37.0-47.0); Lymphocytes # 1.6 K/mm3 (0.7-4.5); Lymphocytes % 13.9 % (10-50); Mean Corpuscular HGB Conc 33.6 g/dL (31.8-35.4); Mean Corpuscular Hemoglobin 30.2 pg (27.0-31.2); Mean Corpuscular Volume 89.9 fl (81-99); Mean Platelet Volume 10.4 fl (7.4-10.4); Monocytes # 0.8 K/mm3 (0.1-1.0); Monocytes % 6.6 % (1.7-9.3); Neutrophils # 8.2 K/mm3 (1.8-7.8); Neutrophils % 71.5 % (37.0-80.0); Platelet Count 236 K/mm3 (142-424); Red Blood Count 4.64 M/mm3 (4.20-5.40); Red Cell Distribution Width 12.9 % (11.5-17.5); White Blood Count 11.5 K/mm3 (4.8-10.8)
--- NOTE | 2024-12-11 08:30 | PC.NURSE ---
CONTACTED PT'S DAUGHTER PER HER REQUEST
[2024-12-11 08:31] VITALS: BP 176/122; PULSE 75; RESP 11; O2SAT 99
--- NOTE | 2024-12-11 08:33 | PC.NURSE ---
PT REFUSING SCANS AND WANTS TO LEAVE, DR GRIGGS AT BEDSIDE
[2024-12-11 08:34] LABS: Albumin Level 4.3 g/dl (3.5-5.0); Chloride 102 mmol/L (98-107); Potassium 3.8 mmoL/L (3.5-5.1); Sodium 135 mmol/L (136-145)
--- NOTE | 2024-12-11 08:36 | PC.NURSE ---
PT TALKING WITH HER DAUGHTER ON THE PHONE AT THIS TIME. CALL LIGHT WITHIN REACH
[2024-12-11 08:37] LABS: Alanine Aminotransferase 99 U/L (12-78); Albumin/Globulin Ratio 1.4 (1.1-1.8); Alkaline Phosphatase 97 U/L (38-126); Anion Gap 7.8 mEq/L (5-15); Aspartate Amino Transferase 133 U/L (14-36); Bilirubin,Total 0.6 mg/dl (0.2-1.3); Blood Urea Nitrogen 4 mg/dl (7-17); Calcium 9.9 mg/dl (8.4-10.2); Carbon Dioxide 29 mmol/L (22.0-30.0); Estimated Glomerular Filt Rate 107 ml/min (>60); GFR (African American) 130 ML/MIN (>60); Globulin 3.1 g/dL (1.3-3.2); Glucose 95 mg/dl (74-100); Total Protein,Serum 7.4 g/dl (6.3-8.2)
--- NOTE | 2024-12-11 08:44 | PC.NURSE ---
DR GRIGGS AT BEDSIDE TO UPDATE PT ON IMPORTANCE OF RADIOLOGY A ND FURTHER TESTING. PT TEARFUL AND ANXIOUS.
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
--- NOTE | 2024-12-11 08:54 | PC.NURSE ---
PT TO CT
[2024-12-11 09:00] LABS: Prothrombin Time 53.8 seconds (10.1-12.5)
[2024-12-11 09:01] LABS: INR 5.71 (0.9-1.1)
--- NOTE | 2024-12-11 09:16 | CT_ITS ---
PROCEDURE INFORMATION: Exam: CT Abdomen And Pelvis Without Contrast Exam date and time: 12/11/2024 9:24 AM Age: 49 years old Clinical indication: Injury or trauma; Additional info: Trauma, patient refusing contrast TECHNIQUE: Imaging protocol: Computed tomography of the abdomen and pelvis without contrast. Radiation optimization: All CT scans at this facility use at least one of these dose optimization techniques: automated exposure control; mA and/or kV adjustment per patient size (includes targeted exams where dose is matched to clinical indication); or iterative reconstruction. COMPARISON: CR XR PELVIS 1-2V 12/11/2024 8:19 AM FINDINGS: Lungs: The partially imaged lung bases are clear. Liver: There is normal appearance of the liver. Gallbladder and biliary ducts: Gallbladder is surgically absent. Pancreas: There is normal appearance of the pancreas. Spleen: There is normal appearance of the spleen. Adrenal glands: Adrenal glands are normal. Kidneys and ureters: Bilateral kidneys demonstrate no hydronephrosis. There is previously administered contrast excretion. Stomach and bowel: There is no bowel obstruction. Appendix: Appendix is not visualized. Intraperitoneal space: There is no free intraperitoneal air. There is no free fluid in the abdomen and pelvis. Vasculature: There is normal caliber of the abdominal aorta and iliac arteries with scattered areas of atherosclerosis. Lymph nodes: There are no enlarged lymph nodes in the abdomen and pelvis. Urinary bladder: Urinary bladder appears unremarkable. Reproductive: Uterus is not well visualized. No abnormal adnexal mass lesions. Bones/joints: The osseous structures of the abdomen and pelvis demonstrate no acute abnormalities. There is levocurvature of the lumbar spine. Soft tissues: Unremarkable. IMPRESSION: No evidence of injury in the abdomen and pelvis, within limits of the study.
--- NOTE | 2024-12-11 09:16 | CT_ITS ---
PROCEDURE INFORMATION: Exam: CT Chest Without Contrast; Diagnostic Exam date and time: 12/11/2024 9:22 AM Age: 49 years old Clinical indication: Injury or trauma; Additional info: Trauma, patient refusing contrast TECHNIQUE: Imaging protocol: Diagnostic computed tomography of the chest without contrast. Radiation optimization: All CT scans at this facility use at least one of these dose optimization techniques: automated exposure control; mA and/or kV adjustment per patient size (includes targeted exams where dose is matched to clinical indication); or iterative reconstruction. COMPARISON: CT CHEST W CON 10/28/2024 10:45 AM FINDINGS: Tubes, catheters and devices: Sternotomy sutures are present. Lungs: There are minimal airspace opacities in the lingular segment. There is a calcified granuloma in the right lower lobe. There are mild hypoventilatory changes in the lungs. Pleural spaces: There is no pneumothorax or pleural effusion. Heart: There is no cardiomegaly or pericardial effusion. There is aortic valve replacement. There is no coronary artery calcification. Lymph nodes: There are no enlarged lymph nodes in the mediastinum and hilum. Vasculature: There is left aortic arch. Bones/joints: The osseous structures of the thorax demonstrate no abnormalities. Soft tissues: Unremarkable. IMPRESSION: 1. There are minimal airspace opacities in the lingular segment, likely related to infection. 2. No evidence of acute injury in the chest.
--- NOTE | 2024-12-11 09:17 | CT_ITS ---
PROCEDURE INFORMATION: Exam: CT Pelvis Without Contrast, Skeleton Exam date and time: 12/11/2024 9:27 AM Age: 49 years old Clinical indication: Injury or trauma; Additional info: Rule out fracture vs fb TECHNIQUE: Imaging protocol: Computed tomography of the pelvis without contrast. Exam focused on the skeleton. Radiation optimization: All CT scans at this facility use at least one of these dose optimization techniques: automated exposure control; mA and/or kV adjustment per patient size (includes targeted exams where dose is matched to clinical indication); or iterative reconstruction. COMPARISON: CT ABDOMEN PELVIS WO CON 12/11/2024 9:24 AM FINDINGS: Intestine: Partially imaged pelvis demonstrates no evidence of bowel obstruction. Bones/joints: Bilateral femoral heads are seated in the acetabular fossa. Sacroiliac joints are intact. Pubic symphysis is intact. There are no fractures or dislocations. Soft tissues: Soft tissues appear unremarkable. IMPRESSION: No evidence of osseous injury in the pelvis.
[2024-12-11] MEDS: 0.9 % SODIUM CHLORIDE 50 ML VIAL IV (09:34)
[2024-12-11] MEDS: SODIUM CHLORIDE 0.9% 10ML SYR (RAD ONLY) 10 ML IV (09:34)
[2024-12-11 09:35] LABS: Ethyl Alcohol < 10 mg/dl (0-10)
[2024-12-11] MEDS: IOPAMIDOL-370 (76%);100ML BOTTLE 80 ML IV (09:35)
[2024-12-11 10:00] VITALS: BP 219/132; PULSE 77; O2SAT 100
[2024-12-11 10:19] VITALS: BP 143/93; PULSE 69; O2SAT 97
[2024-12-11 10:35] VITALS: BP 135/79; PULSE 80; RESP 20; TEMP 36.8; O2SAT 98
== END 2024-12-11 10:35 | disposition home or self-care (01) ==
PROVIDERS: Emergency Provider Emergency Medicine
DX: J18.9 Pneumonia, unspecified organism (principal); R07.9 Chest pain, unspecified; M54.9 Dorsalgia, unspecified; M79.621 Pain in right upper arm; V89.2XXA Person injured in unspecified motor-vehicle accident, traffic, initial encounter; Y93.89 Activity, other specified; Y92.410 Unspecified street and highway as the place of occurrence of the external cause
CPT/HCPCS: 70450; 70496; 70498; 71045; 71250; 72125; 72128; 72131; 72170; 72192; 74176; 80053; 80320; 85025; 85610; 85730; 93005; 99285; G0480; Q9967

== ENCOUNTER 2024-12-14 14:04 | Outpatient (CLI) | payer OTHER, SELFPAY ==
[2024-12-14 14:47] LABS: PHA INR Fingerstick 1.3 (0.9-1.1)
== END 2024-12-14 15:00 ==
LOC: ACC 14:04
PROVIDERS: PCP Nurse Practitioner Family; Visit Provider Nurse Practitioner Family
DX: Z79.01 Long term (current) use of anticoagulants (principal); Z95.2 Presence of prosthetic heart valve
CPT/HCPCS: 85610; 99211; G0463

== ENCOUNTER 2024-12-30 09:16 | Outpatient (CLI) | payer OTHER, SELFPAY ==
[2024-12-30 12:50] LABS: PHA INR Fingerstick 2.7 (0.9-1.1)
== END 2024-12-30 13:04 ==
LOC: ACC 09:20
PROVIDERS: PCP Family Medicine; Visit Provider Nurse Practitioner Family
DX: Z79.01 Long term (current) use of anticoagulants (principal); Z95.2 Presence of prosthetic heart valve
CPT/HCPCS: 85610; 99211; G0463

== ENCOUNTER → 2025-01-06 06:05 | Outpatient (CLI) | payer OTHER, SELFPAY | LOC: SL 06:06 | PROVIDERS: PCP Internal Medicine; Visit Provider Internal Medicine | DX: G47.33 Obstructive sleep apnea (adult) (pediatric) (principal); G47.36 Sleep related hypoventilation in conditions classified elsewhere; R53.83 Other fatigue; R40.0 Somnolence | CPT/HCPCS: G0399 ==

== ENCOUNTER 2025-02-06 07:37 | Outpatient (CLI) | payer OTHER, SELFPAY ==
--- NOTE | 2025-02-06 07:41 | CT_ITS ---
FINAL REPORT TECHNIQUE: Axial images were obtained through the chest without contrast. Sagittal and coronal reconstructions were performed. This study was performed with techniques to keep radiation doses as low as reasonably achievable (ALARA). Individualized dose reduction techniques using automated exposure control or adjustment of mA and/or kV according to the patient's size were employed. CLINICAL HISTORY: SOA/FATIGUE. left sided lung pain COMPARISON: Prior CT of the chest 12/11/2024 FINDINGS: CT CHEST WITHOUT CONTRAST: The heart size is normal. The patient has undergone a prior sternotomy. There is no pericardial or pleural effusion. Limited images of the upper abdomen demonstrate evidence of a prior cholecystectomy. Mild changes of centrilobular emphysema are noted. There is a 3 mm nodule in the right upper lobe, unchanged since the prior CT of 12/11/2024. This nodule is best seen on image #40 of series 3. There is also a 2 mm nodule in the peripheral left upper lobe, best seen on image #67 of series 3. Mild scarring is present in the right middle lobe. Note is made of 35 degrees of dextroscoliosis in the thoracic spine. IMPRESSION: There are 2 subcentimeter nodules are noted, as described. Mild right middle lobe scarring, without acute pulmonary abnormality. Reviewed, Interpreted and Dictated by Camilo Peñaloza MD Transcribed by Saadia Moreno Authenticated and . [facility]
[2025-02-06 08:22] LABS: PHA INR Fingerstick 2.3 (0.9-1.1)
== END 2025-02-06 08:25 ==
LOC: RAD 07:38
PROVIDERS: PCP Family Medicine; Visit Provider Nurse Practitioner Family
DX: R91.1 Solitary pulmonary nodule (principal); R06.02 Shortness of breath; R53.83 Other fatigue; Z79.01 Long term (current) use of anticoagulants; Z95.2 Presence of prosthetic heart valve
CPT/HCPCS: 71250; 85610; 99211; G0463

== ENCOUNTER 2025-02-17 09:42 | Outpatient (CLI) | payer OTHER, SELFPAY ==
[2025-02-17 11:33] LABS: PHA INR Fingerstick 2.1 (0.9-1.1)
== END 2025-02-17 11:35 ==
LOC: ACC 09:42
PROVIDERS: PCP Family Medicine; Visit Provider Nurse Practitioner Family
DX: Z79.01 Long term (current) use of anticoagulants (principal); Z95.2 Presence of prosthetic heart valve
CPT/HCPCS: 85610; 99211; G0463

== ENCOUNTER 2025-02-24 08:08 | Day surgery (SDC) | payer OTHER, SELFPAY ==
[2025-02-22 17:10] VITALS: BMI 16.6
--- NOTE | 2025-02-24 08:32 | EXP.ANES.CKL ---
[facility] Disclaimer: The information contained in this section may have been updated after the patient was seen, as this information can be updated by other users. Medical History Fatigue Daytime somnolence History of heart attack Hypertension SOB (shortness of breath) Abnormal electrocardiogram [ECG] [EKG] Mixed stress and urge urinary incontinence Patient is taking miragegron and oxybutynin and these are working well. Generalized anxiety disorder Carotid artery stenosis Abnormal cardiovascular stress test Tobacco dependence syndrome Typical angina Surgical History H/O mechanical aortic valve replacement History of hysterectomy H/O aortic valve replacement Family History Other Cancer Stroke Social History Smoking Status: Never smoker second hand exposure: Yes alcohol intake: never substance use type: denies use current occupational status: other Travel in the last 8 weeks: None household members: children housing: house number of children: 3 current occupation: [employer] current occupational exposures/hazards: No caffeine: Yes Have you lived/traveled outside [place] in past 30 days?: No Contact w/someone who lives/traveled outside [place] past 30 days?: No Exposure to someone with infectious disease in past 14 days?: No Do you have a fever (greater than 100.4 F or 38 C)?: No Have you tested positive for COVID-19: No Exposed to someone with COVID-19 in past 14 days?: No Do you have a sore throat?: No Do you have a cough?: No Do you have any weakness?: No Do you have any diarrhea?: No Are you experiencing any unusual bleeding?: No Do you have any muscle aches/pain?: No Do you have any abdominal pain?: No Are you experiencing loss of taste or smell?: No [facility] Anesthesia Checklist Patient Identification Patient Identification: Arm Band and Family Structural Data Admitted From: Home Planned Operative Procedure/s: Colonoscopy Consent for Planned Operative Procedure(s) Verified: Yes Verified Documents: Surgical Consent and History and Physical NPO Status Verified Time NPO: 00:00 Additional verifications Patient : No Anesthesia Reactions: No Hx Blood Transfusions: No Blood Transfusion Reaction: No Cephalosporin Allergy: No Previous Colonoscopy: No Airway Assessment Mallampati Score:: Class I C-Spine Mobility Assessed: Yes TMJ Mobility Assessed: Yes Neurological Assessment Level of Consciousness: Awake, Alert, Appropriate and Follows Commands Hx Seizures: No Numbness or tingling in extremities: No Anesthesia Plan Anesthesia Risk discussed: Yes ASA Class: III Anesthesia Type: MAC Preoperative Comments Pre-Operative Comments: Aortic valve replacement. Hypertension. Pre Diabetic. On Suboxone. Loss of weight
--- NOTE | 2025-02-24 08:39 | [facility].SCOPE ---
Procedure: Date: 02/24/25 Patient Date of :: 1975 Procedure Performed:: Total colonoscopy to terminal ileum with snare polypectomy Indications:: Patient is a 49-year-old female presenting for colonoscopy. She states that she had a Cologuard test about a year ago which was reportedly positive. She does have a history of aortic valve replacement and is on warfarin. She has had occasional rectal bleeding. She has somewhat of a family history of colon cancer. She states that she has not very familiar with her entire family history but she does have an uncle that had colon cancer. She has never had prior colonoscopy. Patient describes some unintentional weight loss. . Performing Provider:: Jefe Chaves MD Referring Provider:: Uche Lemus Sedation:: MAC sedation Procedure:: Patient history was obtained and appropriate physical examination was performed. Patient's medications and allergies were reviewed. Informed consent was obtained after explaining the benefits, alternatives, and risks of the procedure including, but not limited to, bleeding, perforation, missed lesions, and adverse reaction to anesthesia medications. Patient was transported to endoscopy procedure room. Patient was connected to monitoring devices. Throughout the procedure the patient's blood pressure, pulse, and oxygen saturations were monitored continuously. Patient identification and planned procedure were verified by the staff. Patient was positioned in lateral decubitus position. Digital anorectal exam was performed. Variable stiffness Olympus colonoscope was inserted and advanced under direct visualization to the cecum. Adequacy of the colonic preparation was noted. The colonoscope was advanced a short distance into the terminal ileum. The colonoscope was then slowly withdrawn while carefully examining the color, texture, anatomy, and integrity of the mucosoa circumferentially. Within the rectum retroflexion was performed. Colonoscope was then withdrawn. Impression: Colonic preparation was suboptimal with a large amount of liquid particulate opaque stool filling the colon. However, this was able to be suctioned free and mostly cleared with very high volume trans colonoscopic irrigation and suctioning. There was some spasticity and lack of relaxation of the colon. In the proximal transverse colon there was a diminutive polyp, possibly prolapse polyp, removed with cold snare. In the distal transverse colon there was an adenomatous appearing polyp removed with cold snare. Both of these were sent as transverse colon polyps. Retroflexion revealed nonpathologic appearing internal hemorrhoids. Findings:: Suboptimal prep Polyps as noted above Recommendations:: Repeat colonoscopy pending pathology. However, likely 2 years given suboptimal prep, polyps, and family history. Recommend multi day maximum prep. Complications:: None immediately apparent Estimated blood obtained (mL): 2 Colonoscopy Component Colonoscopy Component Was a colonoscopy performed during today's procedure?: Yes Recommended follow up colonoscopy of at least 10 years?: No If no, follow up colonoscopy recommended in ___ years?: See above Reason for not recommending >/= 10 yr follow-up interval?: See above
[2025-02-24 08:44] VITALS: BP 126/76; PULSE 73; RESP 16; TEMP 36.6; O2SAT 97
[2025-02-24] MEDS: LACTATED RINGERS 1000ML 1,000 ML 50 ML IV (09:08)
[2025-02-24 09:12] LABS: Prothrombin Time 13.2 seconds (10.1-12.5)
[2025-02-24 10:23] VITALS: O2SAT 95
[2025-02-24 11:01] VITALS: BP 126/63; PULSE 69; RESP 16; TEMP 36.7; O2SAT 100
[2025-02-24 11:16] VITALS: BP 111/70; PULSE 64; RESP 16; O2SAT 98
[2025-02-24 11:31] VITALS: BP 126/91; PULSE 65; RESP 17; O2SAT 100
== END 2025-02-24 11:35 | disposition home or self-care (01) ==
PROVIDERS: PCP Family Medicine; Visit Provider Surgery
PROC: 0DJD8ZZ Inspection of Lower Intestinal Tract, Via Natural or Artificial Opening Endoscopic (ICD-10-PCS; CPT 45385; principal; 2025-02-24 07:30)
DX: K63.5 Polyp of colon (principal); K64.8 Other hemorrhoids; Z12.11 Encounter for screening for malignant neoplasm of colon; R19.5 Other fecal abnormalities; K62.5 Hemorrhage of anus and rectum; R63.4 Abnormal weight loss; Z80.0 Family history of malignant neoplasm of digestive organs
CPT/HCPCS: 45385; 85610; J7120

== ENCOUNTER 2025-02-27 13:35 | Outpatient (CLI) | payer OTHER, SELFPAY ==
[2025-02-27 14:27] LABS: PHA INR Fingerstick 1.4 (0.9-1.1)
== END 2025-02-27 14:32 ==
PROVIDERS: PCP Family Medicine; Visit Provider Nurse Practitioner Family
DX: Z95.2 Presence of prosthetic heart valve (principal); Z79.01 Long term (current) use of anticoagulants
CPT/HCPCS: 85610; 99211; G0463

== ENCOUNTER 2025-03-15 09:27 | Outpatient (CLI) | payer OTHER, SELFPAY ==
[2025-03-15 15:13] LABS: PHA INR Fingerstick 2.6 (0.9-1.1)
== END 2025-03-15 23:59 | disposition home or self-care (01) ==
LOC: ACC 09:28
PROVIDERS: PCP Family Medicine; Visit Provider Nurse Practitioner Family
DX: Z79.01 Long term (current) use of anticoagulants (principal); Z95.2 Presence of prosthetic heart valve
CPT/HCPCS: 85610; 99211; G0463

== ENCOUNTER 2025-03-28 14:18 | Emergency (ER) | payer OTHER, SELFPAY ==
--- NOTE | 2025-03-28 14:27 | HMH.EDGENADL ---
Discharge Plan Disposition Patient Disposition: Home, Self-Care Condition: Good Prescriptions Prescriptions: No Action albuterol sulfate 90 mcg/actuation HFA aerosol inhaler 2 puff INHALATION Q4-6H PRN (Reason: shortness of breath or wheezing) Qty: 6.7 0RF fluticasone propionate 50 mcg/actuation spray,suspension 1 spray INTRANASAL DAILY Patient Comments: USE 1 SPRAY IN EACH NOSTRIL DAILY clonidine HCl 0.1 mg tablet 0.1 mg PO DAILY PRN (Reason: Blood Pressure) clonazepam 0.5 mg tablet 0.5 mg PO TID Qty: 60 0RF Rx Instructions: 1/2 to 1 tab TID prn anxiety ergocalciferol (vitamin D2) 1,250 mcg (50,000 unit) capsule 1,250 mcg PO WEEKLY buprenorphine-naloxone 8-2 mg tablet, sublingual 1.5 tab sublingual ONCE Stiolto Respimat 2.5-2.5 mcg/actuation mist 2 inh inhalation DAILY enoxaparin 60 mg/0.6 mL syringe 50 mg SQ BID 9 Days Qty: 9 0RF Rx Instructions: BID 3 days prior to procedure, 1 dose the night of the procedure, BID for 5 days after procedure until INR is 2.0 lisinopril 5 mg tablet 5 mg PO DAILY PRN (Reason: Blood Pressure) peg 3350-electrolytes [Golytely] 236-22.74-6.74 -5.86 gram recon soln 240 ml PO Q10M Qty: 4000 0RF Rx Instructions: until fecal effluent is clear ondansetron HCl 4 mg tablet 4 mg PO .Q6 1 Days Qty: 3 0RF warfarin 5 mg tablet 5 mg PO MOWEFR alendronate 70 mg tablet 70 mg PO WEEKLY warfarin 5 mg tablet 7.5 mg PO [facility] Referrals Follow up/Referrals: Rodolfo Rhoades MD [Primary Care Provider] - See instructions Activity Restrictions/Add. Instructions Additional Instructions/Restrictions: As we discussed please keep your scheduled follow-up with both cardiology and your PCP. Additionally I have recommended that you be referred for a formal sleep evaluation. I do not know if Dr. Estela Rashid is still practicing but she is an excellent sleep medicine specialist at the [facility]. If you have continued new or worsening signs or symptoms follow-up with your PCP return to the ER as needed. Clinical Impressions Clinical Impression: Uncontrolled hypertension, Abnormal laboratory test result Fatigue Qualifiers: Fatigue type: unspecified Qualified Code(s): R53.83 - Other fatigue Stand Alone Forms Stand Alone Forms: Work/School Release Print Language Print Language: Filipino Discharge ED Provider: Brian Bryson General Adult HPI <KATYA Burroughs - Last Filed: 03/28/25 19:36> General Chief complaint: Recheck/Abnormal Lab/Rx Stated complaint: blood sugar low, enzymes abnormal Time Seen by Provider: 03/28/25 14:26 History of Present Illness HPI narrative: Patient presents to the emergency department at the direction of her PCP for abnormal lab results. Patient had routine lab results done yesterday and they showed a low glucose however patient was fasting and showed a troponin of 21. Patient does have a history of aortic valve repair with mechanical valves chronically on Coumadin and for several months now has had increasing fatigue chest pain intermittently and feeling generally unwell. Patient has been taking her blood pressure medicine on an as-needed basis which includes metoprolol and hydrochlorothiazide and lisinopril. Patient states that her PCP is aware of this arrangement as when she takes her metoprolol it can drop her heart rate too low. Patient reportedly also sleeps with oxygen at nighttime and may have sleep apnea but has not had a formal sleep study. It was provided because patient was noted to be hypoxic while sleeping. Patient is not currently having chest pain shortness of breath fever chills hemoptysis hematochezia melena nausea vomiting diarrhea. Related Data Home Medications ?Medication ?Instructions ?Recorded ?Confirmed fluticasone propionate 50 1 spray intranasal DAILY Allergy 12/24/20 03/14/25 mcg/actuation nasal symptoms spray,suspension clonidine HCl 0.1 mg tablet 0.1 mg PO DAILY PRN Blood Pressure 01/12/23 03/14/25 warfarin 5 mg tablet 5 mg PO MOWEFR Blood thinner 01/12/23 03/14/25 alendronate 70 mg tablet 70 mg PO WEEKLY . 04/29/24 03/14/25 warfarin 5 mg tablet 7.5 mg PO SUTUTHSA 02/17/25 03/14/25 buprenorphine 8 mg-naloxone 2 mg 1.5 tab sublingual ONCE 02/20/25 03/14/25 sublingual tablet ergocalciferol (vitamin D2) 1,250 1,250 mcg PO WEEKLY 02/20/25 03/14/25 mcg (50,000 unit) capsule lisinopril 5 mg tablet 5 mg PO DAILY PRN Blood Pressure 02/20/25 03/14/25 tiotropium 2.5 mcg-olodaterol 2.5 2 inh inhalation DAILY 02/20/25 03/14/25 mcg/actuation mist for inhalation (Stiolto Respimat) Previous Rx's ?Medication ?Instructions ?Recorded albuterol sulfate 90 mcg/actuation 2 puff inhalation Q4-6H PRN 07/31/20 aerosol inhaler shortness of breath or wheezing #6.7 grams peg 3350-electrolytes 236 240 ml PO Q10M #4,000 mL 02/16/25 gram-22.74 gram-6.74 gram-5.86 gram solution (Golytely) enoxaparin 60 mg/0.6 mL 50 mg (0.5 mL) SQ BID 9 days #9 mL 02/20/25 subcutaneous syringe ondansetron HCl 4 mg tablet 4 mg PO .Q6 1 day #3 tabs 02/23/25 clonazepam 0.5 mg tablet 0.5 mg PO TID #60 tabs 03/13/25 Allergies Allergy/AdvReac Type Severity Reaction Status Date / Time ibuprofen (IBUPROFEN) Allergy Unknown SOB Verified 03/14/25 10:25 tramadol (TRAMADOL) Allergy Unknown HEART RACES Verified 03/14/25 10:25 PFS <KATYA Burroughs - Last Filed: 03/28/25 19:36> [facility] Disclaimer: The information contained in this section may have been updated after the patient was seen, as this information can be updated by other users. Medical History Sleep apnea History of COVID-19 COPD (chronic obstructive pulmonary disease) Osteoporosis History of gastroesophageal reflux (GERD) Ringing in ears Fatigue Daytime somnolence History of heart attack Hypertension SOB (shortness of breath) Abnormal electrocardiogram [ECG] [EKG] Mixed stress and urge urinary incontinence Patient is taking miragegron and oxybutynin and these are working well. Generalized anxiety disorder Carotid artery stenosis Abnormal cardiovascular stress test Tobacco dependence syndrome Typical angina Surgical History H/O mechanical aortic valve replacement History of hysterectomy H/O aortic valve replacement Family History Other Cancer Stroke Social History Smoking Status: Never smoker second hand exposure: Yes alcohol intake: never substance use type: denies use current occupational status: employed and unemployed Travel in the last 8 weeks?: None household members: children housing: house number of children: 3 current occupation: [employer] current occupational exposures/hazards: No caffeine: Yes Have you lived/traveled outside [place] in past 30 days?: No Contact w/someone who lives/traveled outside US past 30 days?: No Exposure to someone with infectious disease in past 14 days?: No Do you have a fever (greater than 100.4 F or 38 C)?: No Have you tested positive for COVID-19?: No Exposed to someone with COVID-19 in past 14 days?: No Do you have a sore throat?: No Do you have a cough?: No Do you have any weakness?: No Do you have any diarrhea?: No Are you experiencing any unusual bleeding?: No Do you have any muscle aches/pain?: No Do you have any abdominal pain?: No Are you experiencing loss of taste or smell?: No Other Medical History Have you received the Flu Vaccine for this season: No Have you received the Pneumonia Vaccine: No <KATYA Burroughs - Last Filed: 03/28/25 19:36> ROS Obtained: Yes Systems reviewed as appropriate & no additional complaints except as documented Physical Exam <KATYA Burroughs - Last Filed: 03/28/25 19:36> General General appearance: alert and in no apparent distress Respiratory Respiratory exam: Present normal lung sounds bilaterally Cardiovascular Cardiovascular exam: Present regular rate Neurological Exam Neurological exam: Present alert and oriented X3 Medical Decision Making <KATYA Burroughs - Last Filed: 03/28/25 19:36> Medical Records Medical records reviewed: Yes I reviewed the patient's medical records. Screening: Per USPSTF and CDC recommendations, given the prevalence of disease in our region, it is our hospital?s policy to screen for HIV and viral Hepatitis for all patients aged 18 and over and those with ongoing risk factors. Wilian Inquiry Pt receiving controlled substance: No Vital Signs: 03/28/25 14:34 03/28/25 14:49 03/28/25 15:00 Temperature 98.2 F Temperature Source Oral Pulse Rate 70 69 Pulse Rate [Left Radial] 69 Respiratory Rate 20 12 13 Blood Pressure 189/110 H 152/103 H Blood Pressure [Right Arm] 185/11 H Blood Pressure Mean 119 Blood Pressure Mean [Right Arm] 69 Blood Pressure Source 02 Sat by Pulse Oximetry 99 100 99 Oxygen Delivery Method Room Air 03/28/25 15:30 03/28/25 15:45 03/28/25 16:27 Temperature 98.2 F Temperature Source Oral Pulse Rate 66 68 65 Pulse Rate [Left Radial] Respiratory Rate 18 Blood Pressure 163/104 H 156/94 H 150/90 H Blood Pressure [Right Arm] Blood Pressure Mean 123 114 Blood Pressure Mean [Right Arm] Blood Pressure Source Automatic Cuff 02 Sat by Pulse Oximetry 98 98 Oxygen Delivery Method Room Air Lab Data Lab results reviewed: Yes I reviewed the patient's lab results. Lab Results 03/28/25 14:27: POC Glucose 101 03/28/25 15:19: WBC 10.1, RBC 4.39, Hgb 13.2, Hct 39.4, MCV 89.7, MCH 30.1, MCHC 33.5, RDW 13.4, Plt Count 198, MPV 10.4, Neut % (Auto) 52.3, Lymph % (Auto) 25.7, Garza % (Auto) 7.4, Eos % (Auto) 14.0 H, Baso % (Auto) 0.5, Neut # (Auto) 5.3, Lymph # (Auto) 2.6, Garza # (Auto) 0.8, Eos # (Auto) 1.4 H, Baso # (Auto) 0.1, PT 21.3 H, INR 2.04 H, Sodium 139, Potassium 3.6, Chloride 107, Carbon Dioxide 30, Anion Gap 5.6, BUN 5 L, Creatinine 0.60, Estimated Creat Clear 81, Estimated GFR 107, Est GFR ( Amer) 130, Glucose 94, Calcium 9.2, Total Bilirubin 0.4, AST 40 H, ALT 36, Alkaline Phosphatase 93, Troponin I < 0.01, NT-Pro-B Natriuret Pep 592 H, Total Protein 7.5, Albumin 4.2, Globulin 3.3 H, Albumin/Globulin Ratio 1.3, TSH 1.22, Free T4 Index 3.5 L, Thyroxine (T4) 11.7 H, T3 Uptake 30 03/28/25 15:23: Urine Color Yellow, Urine Appearance Clear, Urine pH 6.0, Ur Specific Sublette <= 1.005, Urine Protein Negative, Urine Glucose (UA) Negative, Urine Ketones Negative, Urine Blood Negative, Urine Nitrate Negative, Urine Bilirubin Negative, Urine Urobilinogen 0.2, Ur Leukocyte Esterase Negative, Urine RBC Occasional, Urine WBC Occasional, Ur Squamous Epith Cells 3-5, Urine Bacteria Trace 03/28/25 15:19 03/28/25 15:19 Orders (Tests/Meds): ORDERS Category Date Time Status Chest XR 2 view (NOT portable) [XR chest 2V] Stat Exams 03/28/25 14:59 Completed BNP [NT Pro Brain Natriuretic Pep.] Stat Lab 03/28/25 15:19 Completed CBC w/Auto Diff [Complete Blood Count Auto Diff] Stat Lab 03/28/25 15:19 Completed CMP [Comprehensive Metabolic Panel] Stat Lab 03/28/25 15:19 Completed INR [Prothrombin Time INR] Stat Lab 03/28/25 15:19 Completed POC Glucose,Bedside Routine Lab 03/28/25 14:27 Completed Thyroid Panel Stat Lab 03/28/25 15:19 Completed Trop I [Troponin I] Stat Lab 03/28/25 15:19 Completed UA [Urinalysis and Microscopic] Stat Lab 03/28/25 15:23 Completed HEART Score History (anamnesis): Slightly suspicious ECG: Normal Age: 45-65 years Risk factors: Atherosclerosis history Troponin: </= normal limit HEART Score: 3 Medical Decision Narrative: In summary patient is a 49-year-old female who presents to the emergency department for evaluation of abnormal lab results. Patient is initially hypertensive with a systolic blood pressure of 185/110 heart rate 69 with normal sinus rhythm on the bedside monitor breathing 20 times a minute satting at 99% on room air upon arrival, afebrile at 90.2. Physical exam is remarkable for a well-nourished well-developed 49-year-old female is currently in no acute distress. Breath sounds clear bilateral to the base with adventitious. Cardiovascular S1-S2 regular rate and rhythm with audible click systolically. Patient has no dependent edema. Abdomen soft nontender no rebound or guarding no rigidity. Andreina Coma Score 15 patient's awake alert and oriented person place circumstance. Differential diagnosis includes could include hypoglycemia however patient was fasting and currently blood sugar is normal thus pursuit of that diagnosis is deferred, ACS versus heart failure versus sleep apnea versus electrolyte abnormality. Initial workup will be conducted with hematologic labs twelve-lead EKG plain film chest x-ray. Initial interventions were considered however patient has no chest pain no shortness of breath and no complaints other than fatigue thus interventions deferred for now. She will be on continuous cardiac monitoring and pulse oximetry. Initial workup reviewed by me and her hematologic labs are remarkable for normal white count normal H&H with no neutrophilic shift, INR is therapeutically appropriate at 2.04, the remainder of her hematologic labs are nonactionable including a normal troponin and slightly elevated NT proBNP of 592 but no oxygen requirement or dependent edema or evidence of volume overload in my informed interpretation of her plain film chest x-ray shows no acute cardiopulmonary process prior to radiology read. Please see final read for formal interpretation.. Upon repeat evaluation patient remains asymptomatic and her blood pressure was 150/90 at the time of discharge.. Given this patient is appropriate for discharge with close follow-up with cardiology as scheduled and her PCP. I did recommend that she take her lisinopril hydrochlorothiazide daily as opposed to an as needed basis. I have also recommended that the patient be formally evaluated for sleep apnea given her symptoms as I believe that some of them are very consistent with sleep apnea. Patient verbalized understanding and agreement. <Mildred Galloway, DO - Last Filed: 03/28/25 14:57> Vital Signs: 03/28/25 14:34 03/28/25 14:49 03/28/25 15:00 Temperature 98.2 F Temperature Source Oral Pulse Rate 70 69 Pulse Rate [Left Radial] 69 Respiratory Rate 20 12 13 Blood Pressure 189/110 H 152/103 H Blood Pressure [Right Arm] 185/11 H Blood Pressure Mean 119 Blood Pressure Mean [Right Arm] 69 Blood Pressure Source 02 Sat by Pulse Oximetry 99 100 99 Oxygen Delivery Method Room Air 03/28/25 15:30 03/28/25 15:45 03/28/25 16:27 Temperature 98.2 F Temperature Source Oral Pulse Rate 66 68 65 Pulse Rate [Left Radial] Respiratory Rate 18 Blood Pressure 163/104 H 156/94 H 150/90 H Blood Pressure [Right Arm] Blood Pressure Mean 123 114 Blood Pressure Mean [Right Arm] Blood Pressure Source Automatic Cuff 02 Sat by Pulse Oximetry 98 98 Oxygen Delivery Method Room Air Lab Data Lab Results 03/28/25 14:27: POC Glucose 101 03/28/25 15:19: WBC 10.1, RBC 4.39, Hgb 13.2, Hct 39.4, MCV 89.7, MCH 30.1, MCHC 33.5, RDW 13.4, Plt Count 198, MPV 10.4, Neut % (Auto) 52.3, Lymph % (Auto) 25.7, Garza % (Auto) 7.4, Eos % (Auto) 14.0 H, Baso % (Auto) 0.5, Neut # (Auto) 5.3, Lymph # (Auto) 2.6, Garza # (Auto) 0.8, Eos # (Auto) 1.4 H, Baso # (Auto) 0.1, PT 21.3 H, INR 2.04 H, Sodium 139, Potassium 3.6, Chloride 107, Carbon Dioxide 30, Anion Gap 5.6, BUN 5 L, Creatinine 0.60, Estimated Creat Clear 81, Estimated GFR 107, Est GFR ( Amer) 130, Glucose 94, Calcium 9.2, Total Bilirubin 0.4, AST 40 H, ALT 36, Alkaline Phosphatase 93, Troponin I < 0.01, NT-Pro-B Natriuret Pep 592 H, Total Protein 7.5, Albumin 4.2, Globulin 3.3 H, Albumin/Globulin Ratio 1.3, TSH 1.22, Free T4 Index 3.5 L, Thyroxine (T4) 11.7 H, T3 Uptake 30 03/28/25 15:23: Urine Color Yellow, Urine Appearance Clear, Urine pH 6.0, Ur Specific Sublette <= 1.005, Urine Protein Negative, Urine Glucose (UA) Negative, Urine Ketones Negative, Urine Blood Negative, Urine Nitrate Negative, Urine Bilirubin Negative, Urine Urobilinogen 0.2, Ur Leukocyte Esterase Negative, Urine RBC Occasional, Urine WBC Occasional, Ur Squamous Epith Cells 3-5, Urine Bacteria Trace Orders (Tests/Meds): ORDERS Category Date Time Status Chest XR 2 view (NOT portable) [XR chest 2V] Stat Exams 03/28/25 14:59 Completed BNP [NT Pro Brain Natriuretic Pep.] Stat Lab 03/28/25 15:19 Completed CBC w/Auto Diff [Complete Blood Count Auto Diff] Stat Lab 03/28/25 15:19 Completed CMP [Comprehensive Metabolic Panel] Stat Lab 03/28/25 15:19 Completed INR [Prothrombin Time INR] Stat Lab 03/28/25 15:19 Completed POC Glucose,Bedside Routine Lab 03/28/25 14:27 Completed Thyroid Panel Stat Lab 03/28/25 15:19 Completed Trop I [Troponin I] Stat Lab 03/28/25 15:19 Completed UA [Urinalysis and Microscopic] Stat Lab 03/28/25 15:23 Completed ECG Data Tracing #1: I reviewed this ECG and interpreted as documented below: Normal sinus rhythm with a ventricular to 70 bpm. No STEMI. Normal axis and intervals. no significant interval change from prior EKG. ECG initial impression date: 03/28/25 ECG initial impression time: 14:33 <Brian Bryson MD - Last Filed: 03/28/25 19:53> Vital Signs: 03/28/25 14:34 03/28/25 14:49 03/28/25 15:00 Temperature 98.2 F Temperature Source Oral Pulse Rate 70 69 Pulse Rate [Left Radial] 69 Respiratory Rate 20 12 13 Blood Pressure 189/110 H 152/103 H Blood Pressure [Right Arm] 185/11 H Blood Pressure Mean 119 Blood Pressure Mean [Right Arm] 69 Blood Pressure Source 02 Sat by Pulse Oximetry 99 100 99 Oxygen Delivery Method Room Air 03/28/25 15:30 03/28/25 15:45 03/28/25 16:27 Temperature 98.2 F Temperature Source Oral Pulse Rate 66 68 65 Pulse Rate [Left Radial] Respiratory Rate 18 Blood Pressure 163/104 H 156/94 H 150/90 H Blood Pressure [Right Arm] Blood Pressure Mean 123 114 Blood Pressure Mean [Right Arm] Blood Pressure Source Automatic Cuff 02 Sat by Pulse Oximetry 98 98 Oxygen Delivery Method Room Air Lab Data Lab Results 03/28/25 14:27: POC Glucose 101 03/28/25 15:19: WBC 10.1, RBC 4.39, Hgb 13.2, Hct 39.4, MCV 89.7, MCH 30.1, MCHC 33.5, RDW 13.4, Plt Count 198, MPV 10.4, Neut % (Auto) 52.3, Lymph % (Auto) 25.7, Garza % (Auto) 7.4, Eos % (Auto) 14.0 H, Baso % (Auto) 0.5, Neut # (Auto) 5.3, Lymph # (Auto) 2.6, Garza # (Auto) 0.8, Eos # (Auto) 1.4 H, Baso # (Auto) 0.1, PT 21.3 H, INR 2.04 H, Sodium 139, Potassium 3.6, Chloride 107, Carbon Dioxide 30, Anion Gap 5.6, BUN 5 L, Creatinine 0.60, Estimated Creat Clear 81, Estimated GFR 107, Est GFR ( Amer) 130, Glucose 94, Calcium 9.2, Total Bilirubin 0.4, AST 40 H, ALT 36, Alkaline Phosphatase 93, Troponin I < 0.01, NT-Pro-B Natriuret Pep 592 H, Total Protein 7.5, Albumin 4.2, Globulin 3.3 H, Albumin/Globulin Ratio 1.3, TSH 1.22, Free T4 Index 3.5 L, Thyroxine (T4) 11.7 H, T3 Uptake 30 03/28/25 15:23: Urine Color Yellow, Urine Appearance Clear, Urine pH 6.0, Ur Specific [place]lette <= 1.005, Urine Protein Negative, Urine Glucose (UA) Negative, Urine Ketones Negative, Urine Blood Negative, Urine Nitrate Negative, Urine Bilirubin Negative, Urine Urobilinogen 0.2, Ur Leukocyte Esterase Negative, Urine RBC Occasional, Urine WBC Occasional, Ur Squamous Epith Cells 3-5, Urine Bacteria Trace Orders (Tests/Meds): ORDERS Category Date Time Status Chest XR 2 view (NOT portable) [XR chest 2V] Stat Exams 03/28/25 14:59 Completed BNP [NT Pro Brain Natriuretic Pep.] Stat Lab 03/28/25 15:19 Completed CBC w/Auto Diff [Complete Blood Count Auto Diff] Stat Lab 03/28/25 15:19 Completed CMP [Comprehensive Metabolic Panel] Stat Lab 03/28/25 15:19 Completed INR [Prothrombin Time INR] Stat Lab 03/28/25 15:19 Completed POC Glucose,Bedside Routine Lab 03/28/25 14:27 Completed Thyroid Panel Stat Lab 03/28/25 15:19 Completed Trop I [Troponin I] Stat Lab 03/28/25 15:19 Completed UA [Urinalysis and Microscopic] Stat Lab 03/28/25 15:23 Completed HEART Score HEART Score: 3 Medical Decision Narrative: In summary patient is a 49-year-old female who presents to the emergency department for evaluation of abnormal lab results. Patient is initially hypertensive with a systolic blood pressure of 185/110 heart rate 69 with normal sinus rhythm on the bedside monitor breathing 20 times a minute satting at 99% on room air upon arrival, afebrile at 90.2. Physical exam is remarkable for a well-nourished well-developed 49-year-old female is currently in no acute distress. Breath sounds clear bilateral to the base with adventitious. Cardiovascular S1-S2 regular rate and rhythm with audible click systolically. Patient has no dependent edema. Abdomen soft nontender no rebound or guarding no rigidity. Andreina Coma Score 15 patient's awake alert and oriented person place circumstance. Differential diagnosis includes could include hypoglycemia however patient was fasting and currently blood sugar is normal thus pursuit of that diagnosis is deferred, ACS versus heart failure versus sleep apnea versus electrolyte abnormality. Initial workup will be conducted with hematologic labs twelve-lead EKG plain film chest x-ray. Initial interventions were considered however patient has no chest pain no shortness of breath and no complaints other than fatigue thus interventions deferred for now. She will be on continuous cardiac monitoring and pulse oximetry. Initial workup reviewed by me and her hematologic labs are remarkable for normal white count normal H&H with no neutrophilic shift, INR is therapeutically appropriate at 2.04, the remainder of her hematologic labs are nonactionable including a normal troponin and slightly elevated NT proBNP of 592 but no oxygen requirement or dependent edema or evidence of volume overload in my informed interpretation of her plain film chest x-ray shows no acute cardiopulmonary process prior to radiology read. Please see final read for formal interpretation.. Upon repeat evaluation patient remains asymptomatic and her blood pressure was 150/90 at the time of discharge.. Given this patient is appropriate for discharge with close follow-up with cardiology as scheduled and her PCP. I did recommend that she take her lisinopril hydrochlorothiazide daily as opposed to an as needed basis. I have also recommended that the patient be formally evaluated for sleep apnea given her symptoms as I believe that some of them are very consistent with sleep apnea. Patient verbalized understanding and agreement. STEPHANIA attestation I was consulted by the STEPHANIA, and we discussed the complexity of problems being addressed. I approved the treatment and management plan for this patient's care in the emergency department, thus performing a substantial portion of the medical decision making. I also evaluated and examined the patient at bedside. She had several chronic complaints that would require follow-up with her primary care physician. I independently interpreted her x-ray imaging revealing of no acute cardiopulmonary pathology. Independently interpreted her EKG, revealing a normal sinus rhythm at a rate of 70, normal axis, no STEMI. Brian Bryson MD Critical Care <KATYA Burroughs - Last Filed: 03/28/25 19:36> Critical Care Time Critical Care Time: No
--- NOTE | 2025-03-28 14:32 | ECG_ITS ---
APPROVED REPORT Exam: Resting ECG HR:70 bpm ECG Measurements Heart Rate 70 AXES [place] 134 P 63 QRSd 76 QRS 40 QT 403 T 43 QTc 424 Conclusion SINUS RHYTHM POSSIBLE LEFT ATRIAL ENLARGEMENT [-0.1mV P-WAVE IN V1/V2] POSSIBLE RIGHT VENTRICULAR CONDUCTION DELAY [RSR (QR) IN V1/V2] POSSIBLE LEFT VENTRICULAR HYPERTROPHY [VOLTAGE CRITERIA PLUS LAE OR QRS WIDENING] No STEMI Electronically signed by : CRISTÓBAL UREÑA, 03/28/2025 23:23:21
[2025-03-28 14:34] VITALS: BP 185/11; PULSE 69; RESP 20; TEMP 36.8; O2SAT 99; BMI 16.6
[2025-03-28 14:35] LABS: POC Glucose,Bedside 101 (70-110)
[2025-03-28 14:49] VITALS: BP 189/110; PULSE 70; RESP 12; O2SAT 100
--- NOTE | 2025-03-28 14:59 | XR_ITS ---
FINAL REPORT TECHNIQUE: Chest PA & Lateral CLINICAL HISTORY: Chest pain COMPARISON: 12/11/2024 FINDINGS: 2 views of the chest were performed. The heart size is normal. There are multiple median sternotomy wires. There is no acute cardiopulmonary process. There are no pleural effusions. There is no pneumothorax. The bony thorax appears intact. There is thoracic scoliosis convex to the right measuring 45 degrees. IMPRESSION: No acute cardiopulmonary process. Reviewed, Interpreted and Dictated by Camilo Peñaloza MD Transcribed by Bri Monreal Authenticated and [facility]
[2025-03-28 15:00] VITALS: BP 152/103; PULSE 69; RESP 13; O2SAT 99
[2025-03-28 15:26] LABS: Basophils # 0.1 K/mm3 (0-0.2); Basophils % 0.5 % (0.1-2.0); Eosinophils # 1.4 Kmm3 (0.0-0.4); Hematocrit 39.4 % (37.0-47.0); Hemoglobin 13.2 g/dL (12.2-16.2); Lymphocytes # 2.6 K/mm3 (0.7-4.5); Lymphocytes % 25.7 % (10-50); Mean Corpuscular HGB Conc 33.5 g/dL (31.8-35.4); Mean Corpuscular Hemoglobin 30.1 pg (27.0-31.2); Mean Corpuscular Volume 89.7 fl (81-99); Mean Platelet Volume 10.4 fl (7.4-10.4); Monocytes # 0.8 K/mm3 (0.1-1.0); Monocytes % 7.4 % (1.7-9.3); Neutrophils # 5.3 K/mm3 (1.8-7.8); Neutrophils % 52.3 % (37.0-80.0); Nucleated Red Blood Cells # 0 10^3/uL; Nucleated Red Blood Cells % 0 %; Platelet Count 198 K/mm3 (142-424); Red Blood Count 4.39 M/mm3 (4.20-5.40); Red Cell Distribution Width 13.4 % (11.5-17.5); Red Cell Distribution Width-SD 44.1 fL; White Blood Count 10.1 K/mm3 (4.8-10.8)
[2025-03-28 15:27] LABS: Microscopic, Urine URINE MICROSCOPIC (MICROSCOPIC)
[2025-03-28 15:30] VITALS: BP 163/104; PULSE 66; O2SAT 98
--- NOTE | 2025-03-28 15:33 | PC.NURSE ---
pt back from xrays
[2025-03-28 15:36] LABS: Appearance,Urine CLEAR (Clear); Bilirubin,Urine Negative (Negative); Blood, Urine Negative (Negative); Color,Urine YELLOW (Yellow); Glucose,Urine (UA) Negative (Negative); Ketones,Urine Negative (Negative); Leukocyte Esterase,Urine Negative (Negative); Nitrate,Urine Negative (Negative); Protein,Urine Negative (Negative); Specific Gravity, Urine <= 1.005 (1.005-1.030); Urobilinogen,Urine 0.2 EU/dl (0.2)
[2025-03-28 15:39] LABS: Alanine Aminotransferase 36 U/L (12-78); Albumin Level 4.2 g/dl (3.5-5.0); Albumin/Globulin Ratio 1.3 (1.1-1.8); Alkaline Phosphatase 93 U/L (38-126); Anion Gap 5.6 mEq/L (5-15); Aspartate Amino Transferase 40 U/L (14-36); Bilirubin,Total 0.4 mg/dl (0.2-1.3); Blood Urea Nitrogen 5 mg/dl (7-17); Calcium 9.2 mg/dl (8.4-10.2); Carbon Dioxide 30 mmol/L (22.0-30.0); Chloride 107 mmol/L (98-107); Creatinine Clearance Estimated 81 mL/min (50-200); Estimated Glomerular Filt Rate 107 ml/min (>60); GFR (African American) 130 ML/MIN (>60); Globulin 3.3 g/dL (1.3-3.2); Glucose 94 mg/dl (74-100); Potassium 3.6 mmoL/L (3.5-5.1); Sodium 139 mmol/L (136-145); Total Protein,Serum 7.5 g/dl (6.3-8.2)
[2025-03-28 15:40] LABS: INR 2.04 (0.9-1.1); Prothrombin Time 21.3 seconds (10.1-12.5)
[2025-03-28 15:45] VITALS: BP 156/94; PULSE 68; O2SAT 98
[2025-03-28 15:48] LABS: NT Pro Brain Natriuretic Pep. 592 pg/mL (0-125)
[2025-03-28 15:59] LABS: Troponin I < 0.01 ng/ml (0.00-0.034)
[2025-03-28 16:00] LABS: Bacteria,Urine Trace /lpf; RBC,Urine Occasional #/hpf (0-3); WBC,Urine Occasional #/hpf (0-3)
[2025-03-28 16:27] VITALS: BP 150/90; PULSE 65; RESP 18; TEMP 36.8; O2SAT 98
[2025-03-28 17:53] LABS: Triiodothryronine (T3) Uptake 30 % (23.5-40.5)
[2025-03-28 17:54] LABS: Free Thyroxine Index 3.5 ug/dL (5.93-13.13); T4 (Thyroxine) 11.7 ug/dl (5.53-11.0)
[2025-03-28 18:07] LABS: Thyroid Stimulating Hormone 1.22 uIU/mL (0.465-4.68)
== END 2025-03-28 16:28 | disposition home or self-care (01) ==
PROVIDERS: Emergency Medicine; Physician Assistant; Emergency Provider Student in an Organized Health Care Education/Training Program; PCP Family Medicine
DX: R79.89 Other specified abnormal findings of blood chemistry (principal); R53.83 Other fatigue; I10 Essential (primary) hypertension
CPT/HCPCS: 71046; 80053; 81001; 82962; 83880; 84436; 84443; 84479; 84484; 85025; 85610; 93005; 99284

== ENCOUNTER 2025-04-12 14:08 | Outpatient (CLI) | payer OTHER, SELFPAY ==
[2025-04-12 15:00] LABS: PHA INR Fingerstick 2.6 (0.9-1.1)
== END 2025-04-12 15:02 ==
LOC: ACC 14:09
PROVIDERS: PCP Family Medicine; Visit Provider Nurse Practitioner Family
DX: Z79.01 Long term (current) use of anticoagulants (principal); Z95.2 Presence of prosthetic heart valve
CPT/HCPCS: 85610; 99211; G0463

== ENCOUNTER 2025-05-24 11:09 | Outpatient (CLI) | payer OTHER, SELFPAY ==
--- OUTSIDE RECORDS SUMMARY | 2025-03-27 11:20 | XMS_ITS | Encounter Summary ---
Author Organization [facility] Address [address] [place] [address] Care Team Providers Care Director Hris Name Role Phone Rodolfo Rhoades MD Primary Care Provider [phone] Reason for Visit * Reason Comments Headache Headache, lightheade d, fatigue, can't remember anything, chest pain, heartburn, worried that may have had heart attack, hasn't made [facility] appt yet and son has been sick, wearing oxygen at home at night some nights, but makes nose sore Care Gap Closure Postpone Covid vacci ne; Colonoscopy done 02/24/25 cancer spot found but hasn't spread, will keep an eye on it, will repeat in 1-2 yrs Encounter Details Date Type Department Care Team (Late st Contact Info) Description 03/27/2025 11:20 AM EDT Office Visit [facility] [address] [place] [address] Rodolfo Rhoades MD [address] [place] [address] BRI (obstructive sleep apnea) (Primary Dx); Nocturnal hypoxia; Chronic fatigue; Moderate persistent asthma without complication; Pulmonary emphysema, unspecified emphysema type (CMS/HCC); Essential hypertension; Vitamin D deficiency; Chest tightness; Elevated LFTs; Low blood sugar Social History Tobacco Use Types Packs/Day Years Used Date Smoking Tobacco: Every Day Cigarettes 1 23.5 Started: 2001 Passive Smoke Exposure: Current Smokeless Tobacco: Never Alcohol Use Standard Drinks/Week Comments Not Currently 0 (1 standard drink = 0.6 oz pur e alcohol) Humiliation, Afraid, Rape, and Kick questionnair e Answer Date Recorded Within the last year, have y ou been afraid of your partner or ex-partner? No 01/20/2025 Within the last year, have y ou been humiliated or emotionally abused in other ways by your partner or ex-partner? No Within the last year, have y ou been kicked, hit, slapped, or otherwise physically hurt by your partner or ex-partner? No 01/20/2025 Within the last year, have y ou been raped or forced to have any kind of sexual activity by your partner or ex-partner? No 01/20/2025 PHQ-2 Answer Date Recorded Patient Health Questionnaire-2 Score 0 11/16/2024 Hunger Vital Sign Answer Date Recorded Within the past 12 months, y ou worried that your food would run out before you got the money to buy more. Never true 01/20/20 25 Within the past 12 months, t he food you bought just didn't last and you didn't have money to get more. Never true 01/20/2025 PRAPARE - Transportation Answer Date Re corded In the past 12 months, has l ack of transportation kept you from medical appointments or from getting medications? No 01/01 In the past 12 months, has l ack of transportation kept you from meetings, work, or from getting things needed for daily living? No 01/20/2025 Housing Stability Vital Sign Answer Yovany e Recorded In the last 12 months, was t here a time when you were not able to pay the mortgage or rent on time? Yes 07/25/2024 In the last 12 months, how many places have you lived? 1 07/25/2024 In the last 12 months, was t here a time when you did not have a steady place to sleep or slept in a prison (including now)? No 07/25/2024 PHQ-9 Answer Date Recorded Patient Health Questionnaire-9 Score 0 11/16/2024 Housing Stability Vital Sign Answer Yovany e Recorded In the last 12 months, was t here a time when you were not able to pay the mortgage or rent on time? No 01/20/2025 In the past 12 months, how m any times have you moved where you were living? 0 01/20/2025 At any time in the past 12 m [facility], were you homeless or living in a prison (including now)? No 01/20/2025 Safety and Environment Answer Date Abraham rded Do you worry that your child may have been physically abused? No 07/25/2024 Do you worry that your child may have been sexua lly abused? No 07/25/2024 Are there any guns kept in o r around your home or where your child spends time? No 07/25/2024 Guns Unloaded or Locked Away Not on file Utilities Answer Date Recorded In the past 12 months has e [employer], gas, oil, or water [employer] threatened to shut off services in your home? No 01/20/2025 PHQ-2A Answer Date Recorded Patient Health Questionnaire-2 Score 0 04/23/2023 Comments No Sex and Gender Information Value Date Recorded Sex Assigned at Female 06/19/2021 8:21 AM EDT Legal Sex Female 8:54 PM EDT Gender Identity Female 06/19/2021 8:21 AM EDT Sexual Orientation Straight 06/19/2021 8: 21 AM EDT documented as of this encounter Last Filed Vital Signs Vital Sign Reading Time Taken Comments Blood Pressure 168/95 03/27/2025 11:45 AM EDT Pulse 72 03/27/2025 11:27 AM EDT Temperature 36.6 C (97.9 F) 03/27/2025 11:27 AM EDT Respiratory Rate 18 03/27/2025 11:27 AM EDT Oxygen Saturation 99% 03/27/2025 11:27 AM EDT Inhaled Oxygen Concentration - - Weight 45 kg (99 lb 3.3 oz) 03/27/2025 11:27 AM EDT Height 162.6 cm (5' 4 ) 03/27/2025 11:27 AM EDT Body Mass Index 17.03 03/27/2025 11:27 AM EDT documented in this encounter Functional Status * Calculated C-SSRS Risk Score (Lifetime/Recent) Answer Date of Assessment Author No Risk Indicated 03/27/2025 11:45 AM EDT Mindy Holt * Question Answer Date of Assessment Author 1. Wish to be (Past 1 Month) No 03/27/2025 11:45 AM EDT Rama Gudino 2. Non-Specific Active Suici omar Thoughts (Past 1 Month) No 03/27/2025 11:45 AM EDT Mindy Gudino 6. Suicidal Behavior (Lifetime) No 11:45 AM EDT Mindy Gudino documented as of this encounter Miscellaneous Notes * Progress Notes - Rodolfo Rhoades MD - 03/27/2025 11:20 AM EDT Subjective Patient ID: Veronica Weiss is a 49 y.o. female. Chief Complaint Patient presents with Headache Headache, lightheaded, fatigue, can't remember anything, chest pain, heartburn, worried that may have had heart attack, hasn't made [facility] app[facility] yet and son has been sick, wearing oxygen at home at night some nights, but makes nose sore Care Gap Closure Postpone Covid vaccine; Colonoscopy done 02/24/25 cancer spot found but hasn't spread, will keep aneye on it, will repeat in 1-2 yrs Headache Pertinent negatives include no abdominal pain, coughing or fever. Presents for follow up on multiple symptoms. She has been having chronic fatigue. We referred to cardiology and sleep medicine. She was able to get the night time oxygen but having trouble wearing it. Hasn't been able to see cardiology yet but has an appointment soon. Had positive BINH but wasn't able to keep her appointment with rheumatology. She is noting burning in her head, leg burning symptoms Has been having headache and lightheadedness for a while. Sleep with incline is helping. Patient reports fatigue with concerns that her medication or part of the cause. She has been havingheart rates within the 40s at night. She did hold her metoprolol recently with a heart rate stayingbelow 70. She is report an increase in her blood pressure but has also been holding her lisinopril.Has been taking diltiazem consistently. Has had both a cardiac and pulmonary work up. She has had a cardiac work up in 2020 with cardiac catheterization showing normal coronary artieres with echo 03/12/21 showing severe aortic insufficiencywith LVEF 50%. Had aortic valve replacement 06/11/[address] [employer] #[address] mechanical valve done by Dr. Cespedes. Repeat testing includes a coronary CTA 04/11/24, which was normal. Had a repeat echo 07/22/24 done by cardiology showing moderate aortic valve stenosis with mechanical valve in place with normal EF at 55-60%. Had a negative stress test 08/31/24. Sleep study showed mild BRI with severe hypoxia. Her fatigue is consistently worsening despite getting adequate sleep. With her oxygen at night she isn't using her inhalers as much but still tired. Has been having trouble gaining weight. Will recheck thyroid. The following portions of the chart were reviewed this encounter and updated as appropriate: Tobacco Allergies Meds Problems Med Hx Surg Hx Fam Hx Review of Systems Constitutional: Positive for fatigue. Negative for fever. Respiratory: Negative for cough and shortness of breath. Cardiovascular: Positive for chest pain. Gastrointestinal: Negative for abdominal pain. Musculoskeletal: Negative for arthralgias. Neurological: Positive for headaches. Objective Physical Exam Constitutional: Appearance: Normal appearance. She is not ill-appearing. HENT: Head: Normocephalic and atraumatic. Cardiovascular: Rate and Rhythm: Normal rate and regular rhythm. Heart sounds: Murmur heard. Pulmonary: Effort: Pulmonary effort is normal. No respiratory distress. Breath sounds: Normal breath sounds. No wheezing or rhonchi. Neurological: General: No focal deficit present. Mental Status: She is alert. Mental status is at baseline. Psychiatric: Mood and Affect: Mood normal. Behavior: Behavior normal. Assessment/Plan Diagnoses and all orders for this visit: BRI (obstructive sleep apnea) Nocturnal hypoxia Chronic fatigue - Thyroid Stimulating Hormone, Plasma - CBC and Differential Moderate persistent asthma without complication Pulmonary emphysema, unspecified emphysema type (CMS/HCC) Essential hypertension Vitamin D deficiency - Vitamin D 25 Hydroxy Chest tightness - Troponin T, High Sensitivity, Cardiac Risk Assessment Elevated LFTs - Comprehensive Metabolic Panel, Plasma Will try megace for weight. Just had colonoscopy. Up to date with mammogram. Has had echo in 2023 showing mechanical valve in place but having moderate aortic stenosis. Note to patient: The Cures Act makes medical notes like these available to patients inthe interest of transparency. However, be advised this is a medical document. It is intended as peer to peer communication. It is written in medical language and may contain abbreviations or verbiagethat are unfamiliar. It may appear blunt or direct. Medical documents are intended to carry relevant information, facts as evident, and the clinical opinion of the practitioner. documented in this encounter Plan of Treatment Upcoming Encounters Date Type Department Care Team (Late st Contact Info) Description 06/01/2025 10:20 AM EDT Office Visit [facility] & [address] [address] Rodolfo Rhoades MD [address] [place] [address] documented as of this encounter Procedures Procedure Name Priority Date/Time Associated Diagnosis Comments VITAMIN D 25 HYDROXY Routine 03/27/2025 12:35 PM EDT Vitamin D deficiency CBC WITH AUTO DIFFERENTIAL Routine 03/27/2025 12:35 PM EDT Chronic fatigue TROPONIN T, HIGH SENSITIVITY, CARDIAC RISK ASSESSMENT Routine 03/27/2025 12:35 PM EDT Chest tightness TSH Routine 03/27/2025 12:35 PM EDT Chronic fatigue HEMOGLOBIN A1C Add-On 03/27/2025 12:35 PM EDT Low blood sugar COMPREHENSIVE METABOLIC PANEL, PLASMA Routine 03/27/2025 12:35 PM EDT Elevated LFTs documented in this encounter Results * Hemoglobin A1c (03/27/2025 12:35 PM EDT) Hemoglobin A1c 5.4 <5.7 % 03/28/2025 3:54 PM EDT [facility] Blood Venous blood specimen / Unknown Venipuncture / Unknown 03/27/2025 12:35 PM EDT 03/27/2025 12:35 PM EDT Narrative [facility] - 03/28/2025 3:54 PM EDT HA1C Interpretive Data: Diagnosis of Diabetes: Diabetic > or = 6.5% Pre-diabetic 5.7 to 6.4% Non-diabetic < or = 5.6% Glycemic Targets for Type I and Type II Diabetics: Non- Adults <7.0% Adults <6.0% Children and Adolescents <7.5% Source: [place] [employer]. Standards of medical care in diabetes,2017. Diabetes Care.2017:40 (suppl 1):S1-S135. us Rodolfo Rhoades MD LAB BLOOD ORDERABLES Final Res ult [facility] [address] [place] [address] * (ABNORMAL) Comprehensive Metabolic Panel, Plasma (03/27/2025 12:35 PM EDT) Glucose, Plasma 58(L) 74 - 99 mg/dL 03/27/2025 6:43 PM EDT [facility] BUN, Plasma 4(L) 7 - 21 mg/dL 03/27/2025 6:43 PM EDT [facility] Creatinine, Plasma 0.66 0.60 - 1.10 mg/dL 03/27/2025 6:43 PM EDT [facility] BUN/Creatinine Ratio 6 03/27/2025 6:43 PM EDT [facility] Sodium, Plasma 139 136 - 145 mmol/L 03/27/2025 6:43 PM EDT [facility] Potassium, Plasma 4.1 3.6 - 4.9 mmol/L 03/27/2025 6:43 PM EDT [facility] Chloride, Plasma 103 97 - 107 mmol/L 03/27/2025 6:43 PM EDT [facility] CO2, Plasma 28 22 - 29 mmol/L 03/27/2025 6:43 PM EDT [facility] Anion Gap 8 6 - 16 mmol/L 03/27/2025 6:43 PM EDT [facility] Total Calcium, Plasma 9.4 8.9 - 10.2 mg/dL 03/27/2025 6:43 PM EDT [facility] Total Protein 7.4 6.3 - 7.9 g/dL 03/27/2025 6:43 PM EDT [facility] Albumin, Plasma 4.2 3.5 - 5.2 g/dL 03/27/2025 6:43 PM EDT [facility] AST, Plasma 27 10 - 35 U/L 03/27/2025 6:43 PM EDT [facility] ALT, Plasma 34 10 - 35 U/L 03/27/2025 6:43 PM EDT [facility] Alkaline Phosphatase, Plasma 106(H) 35 - 104 U/L 03/27/2025 6:43 PM EDT [facility] Total Bilirubin, Plasma 0.3 0.2 - 1.1 mg/dL 03/27/2025 6:43 PM EDT [facility] eGFRcr 109.0 mL/min/1.7 3m*2 03/27/2025 6:43 PM EDT [facility] Comment:Reported eGFRcr in m L/min/1.73m2 is based the CKD-EPI 2020 equation that does not use a race coefficient. Blood Venous blood specimen / Unknown Venipuncture / Unknown 03/27/2025 12:35 PM EDT 03/27/2025 12:35 PM EDT us Rodolfo Rhoades MD LAB BLOOD ORDERABLES Final Res ult [facility] [address] [place] [address] * (ABNORMAL) CBC and Differential (03/27/2025 12:35 PM EDT) WBC Count 9.24 3.70 - 10.30 10*3/uL LAB HEMATOLOGY METHOD 03/27/2025 6:23 PM EDT [facility] RBC Count 4.51 3.90 - 5.20 10*6/uL LAB HEMATOLOGY METHOD 03/27/2025 6:23 PM EDT [facility] HGB 13.3 11.2 - 15.7 g/dL LAB HEMATOLOGY METHOD 03/27/2025 6:23 PM EDT [facility] HCT 41.5 34.0 - 45.0 % LAB HEMATOLOGY METHOD 03/27/2025 6:23 PM EDT [facility] Platelet Count 218 155 - 369 10*3/uL LAB HEMATOLOGY METHOD 03/27/2025 6:23 PM EDT [facility] MCV 92 79 - 98 fL LAB HEMATOLOGY METHOD 03/27/2025 6:23 PM EDT [facility] MCH 29.5 26.0 - 32.0 pg LAB HEMATOLOGY METHOD 03/27/2025 6:23 PM EDT [facility] MCHC 32.0 30.7 - 35.5 g/dL LAB HEMATOLOGY METHOD 03/27/2025 6:23 PM EDT [facility] RDW 13.9 11.5 - 14.5 % LAB HEMATOLOGY METHOD 03/27/2025 6:23 PM EDT [facility] MPV 10.8 8.8 - 12.5 fL LAB HEMATOLOGY METHOD 03/27/2025 6:23 PM EDT [facility] nRBC 0.0 <=0.0 per 100 WBCs LAB HEMATOLOGY METHOD 03/27/2025 6:23 PM EDT [facility] Differential Type Automated LAB HEMATOLOGY METHOD 03/27/2025 6:23 PM EDT [facility] Neutrophils % 55 % LAB HEMATOLOGY METHOD 03/27/2025 6:23 PM EDT [facility] Lymphocytes % 25 % LAB HEMATOLOGY METHOD 03/27/2025 6:23 PM EDT [facility] Monocytes % 9 % LAB HEMATOLOGY METHOD 03/27/2025 6:23 PM EDT [facility] Eosinophils % 10 % LAB HEMATOLOGY METHOD 03/27/2025 6:23 PM EDT [facility] Basophils % 1 % LAB HEMATOLOGY METHOD 03/27/2025 6:23 PM EDT [facility] Immature Granulocytes % 0 % LAB HEMATOLOGY METHOD 03/27/2025 6:23 PM EDT [facility] Neutrophils Absolute 5.13 1.60 - 6.10 10*3/uL LAB HEMATOLOGY METHOD 03/27/2025 6:23 PM EDT [facility] Lymphocytes Absolute 2.34 1.20 - 3.90 10*3/uL LAB HEMATOLOGY METHOD 03/27/2025 6:23 PM EDT [facility] Monocytes Absolute 0.80 0.30 - 0.90 10*3/uL LAB HEMATOLOGY METHOD 03/27/2025 6:23 PM EDT [facility] Eosinophils Absolute 0.89(H) 0.00 - 0.50 10*3/uL LAB HEMATOLOGY METHOD 03/27/2025 6:23 PM EDT [facility] Basophils Absolute 0.06 0.00 - 0.10 10*3/uL LAB HEMATOLOGY METHOD 03/27/2025 6:23 PM EDT [facility] Immature Granulocytes Absolute 0.02 0.00 - 0.06 10*3/uL LAB HEMATOLOGY METHOD 03/27/2025 6:23 PM EDT [facility] Blood Venous blood specimen / Unknown Venipuncture / Unknown 03/27/2025 12:35 PM EDT 03/27/2025 12:35 PM EDT Narrative [facility] - 03/27/2025 6:23 PM EDT Therapeutic decision making should be based on absolute values, rather than percentages. us Rodolfo Rhoades MD LAB BLOOD ORDERABLES Final Res ult [facility] [address] [place] [address] * Thyroid Stimulating Hormone, Plasma (03/27/2025 12:35 PM EDT) Thyroid Stimulating Hormone, Plasma 1.10 0.40 - 4.20 uIU/mL 03/27/2025 6:43 PM EDT [facility] Blood Venous blood specimen / Unknown Venipuncture / Unknown 03/27/2025 12:35 PM EDT 03/27/2025 12:35 PM EDT Narrative [facility] - 03/27/2025 6:43 PM EDT Trimester Specific Ranges TSH ( IU/mL) 1st Trimester 0.1 - 3.0 2nd Trimester 0.19 - 4.06 3rd Trimester 0.3 - 3.7 Rodolfo Rhoades MD LAB BLOOD ORDERABLES Final Res ult Performing Organization Address [facility] Co de Phone Number [facility] [address] [place] [address] * (ABNORMAL) Troponin T, High Sensitivity, Cardiac Risk Assessment (03/27/2025 12:35 PM EDT) Troponin T, High Sensitivity, 0 Hour 21(H) <14 ng/L 03/27/2025 6:43 PM EDT [facility] Blood Venous blood specimen / Unknown Venipuncture / Unknown 03/27/2025 12:35 PM EDT 03/27/2025 12:35 PM EDT Rodolfo Rhoades MD LAB BLOOD ORDERABLES Final Res ult Performing Organization Address City/[facility] Co de Phone Number [facility] [address] [place] [address] * Vitamin D 25 Hydroxy (03/27/2025 12:35 PM EDT) Vitamin D 25 Hydroxy 41.3 20.0 - 80.0 ng/mL 03/27/2025 7:02 PM EDT [facility] Blood Venous blood specimen / Unknown Venipuncture / Unknown 03/27/2025 12:35 PM EDT 03/27/2025 12:35 PM EDT Narrative [facility] - 03/27/2025 7:02 PM EDT Testing performed on [employer], standardized against NIST SRM [id number]. When testing samples from patients whose predominant form of vitamin D is vitamin D2, such as patients receiving vitamin D2 supplementation, results that are subtherapeutic should be confirmed with another method, such as LC-MS/MS, before being used for patient management. Vitamin D, 25-Hydroxy reference range, age 18 years and up: Deficiency: <12 ng/mL Insufficiency: 12 to 19 ng/mL Sufficiency: 20 to 80 ng/mL Possible toxicity: >100 ng/mL us Rodolfo Rhoades MD LAB BLOOD ORDERABLES Final Res ult [facility] [address] [place] [address] documented in this encounter Visit Diagnoses Diagnosis BRI (obstructive sleep apnea)- Primary Obstructive sleep apnea (adult) (pediatric) Nocturnal hypoxia Chronic fatigue Other malaise and fatigue Moderate persistent asthma without complication Pulmonary emphysema, unspecified emphysema type (CMS/HCC) Essential hypertension Unspecified essential hypertension Vitamin D deficiency Chest tightness Other chest pain Elevated LFTs Other abnormal blood chemistry Low blood sugar Hypoglycemia, unspecified documented in this encounter Additional Health Concerns Assessment Noted Time PHQ-9 Depression Total Score: 0 11/16/20 24 11:05 AM EST A fall risk assessment has been complete d for the patient 03/19/2023 1:57 PM EDT A Body Mass Index follow-up plan has been documented for the patient 03/27/2025 12:36 PM EDT documented as of this encounter Care Teams Director Hris Relationship Specialty Start Date End Date Rodolfo Rhoades MD [address] [place] [phone] PCP - General Family Medicine 02/02/25 documented as of this encounter
--- OUTSIDE RECORDS SUMMARY | 2025-05-24 11:19 | XMS_ITS | Encounter Summary ---
Author Organization Healthcare Address [address] [place] [address] Care Team Providers Care It Manager Name Role Phone Rodolfo Rhoades MD Primary Care Provider [phone] Encounter Details Date Type Department Care Team (Latest Contact Info) Description 03/27/2025 Travel Social History Tobacco Use Types Packs/Day Years [...] place to sleep or slept in a skilled nursing (including now)? No 07/25/2024 PHQ-9 Answer Date [...] any time in the past 12 m [facility], were you homeless or living in a skilled nursing (including now)? No 01/20/2025 Safety and Environment [...] Recorded In the past 12 months has th e [employer] gas, oil, or water company threatened to shut off services in your home? No 01/20/2025 PHQ-2A Answer Date Recorded Patient Health Questionnaire-2 Score 0 04/23/2023 Comments No Sex and Gender Information Value Date Recorded Sex Assigned at Female 06/19/2021 8:21 AM EDT Legal Sex Female 8:54 PM EDT Gender Identity Female 06/19/2021 8:21 AM EDT Sexual Orientation Straight 06/19/2021 8: 21 AM EDT documented as of this encounter Functional Status * Calculated C-SSRS [...] Mindy Gudino documented as of this encounter Plan of Treatment Upcoming Encounters Date Type Department Care Team (Late st Contact Info) Description 06/01/2025 10:20 AM EDT Office Visit [facility] [address] [place] [address] Rodolfo Rhoades MD [address] [place] [address] documented as of this encounter Visit Diagnoses Not on filedocumented in this encounter Additional Health Concerns Assessment Noted Time PHQ-9 Depression Total Score: 0 11/16/20 24 11:05 AM EST A fall risk assessment has been complete d for the patient 03/19/2023 1:57 PM EDT A Body Mass Index follow-up plan has been documented for the patient 03/27/2025 12:36 PM EDT documented as of this encounter Care Teams It Manager Relationship Specialty Start Date End Date Rodolfo Rhoades MD [address] [place] [address] PCP - General Family Medicine 02/02/25 documented as of this encounter
--- OUTSIDE RECORDS SUMMARY | 2025-05-24 11:19 | XMS_ITS | Encounter Summary ---
Author Organization Healthcare Address [address] [place] [address] Care Team Providers Care Veterinarian Small Animal Name Role Phone OscarGeogrette Court DOVE Primary Care Provider [phone] Veronica Goodwin LPN Unavailable Unavailable Margaret Ro Unavailable Unavailable Rodolfo Rhoades MD Primary Care Provider [phone] Encounter Details Date Type Department Care Team (Late Contact Info) Description 07/22/2021 Outside Procedure External Location [address] [place] [address] Irma Masterson MD [address] [place] [address] Social History Tobacco Use Types Packs/Day Years Used Date Smoking Tobacco: Some Days Smokeless Tobacco: Never PHQ-2 Answer Date Recorded Patient Health Questionnaire-2 Score 0 07/16/2021 Comments Unknown Sex and Gender Information Value Date Recorded Sex Assigned at Female 06/19/2021 8:21 AM EDT Legal Sex Female 8:54 PM EDT Gender Identity Female 06/19/2021 8:21 AM EDT Sexual Orientation Straight 06/19/2021 8: 21 AM EDT COVID-19 Exposure Response Date Recorded In the last month, have you been in contact with someone who was confirmed or suspected to have Coronavirus / COVID-19? No / Unsure 07/24/2021 9:11 AM EDT documented as of this encounter Plan of Treatment Upcoming Encounters Date Type Department Care Team (Late Contact Info) Description 06/01/2025 10:20 AM EDT Office Visit [facility] [address] [place] [address] Rodolfo Rhoadse MD [address] [place] [address] documented as of this encounter Procedures Procedure Name Priority Date/Time Associated Diagnosis Comments CT CHEST LIMITED HISTORICAL 07/22/2021 1:04 PM EDT documented in this encounter Results * CT Chest Limited Historical (07/22/2021 1:04 PM EDT) Anatomical Region Laterality Modality Chest Computed Tomogra phy 07/22/2021 1:04 PM EDT Narrative 07/22/2021 3:35 PM EDT [address] [address] Name: VERONICA ALVAREZ Exam Date: 07/22/2021 : 1975 Age 45 Gender: F Physician: Irma Masterson Facility: [facility] Facility HSV: Outpatient Exam: CT CHEST W/O CT CHEST without contrast HISTORY: Hemoptysis COMPARISON: None . TECHNIQUE: Axial CT without IV contrast administration. FINDINGS:Lack of IV contrast limits assessment of the solid organs, mediatinum, and the vasculature. Sternal wires, prosthetic valve and atrial appendage clamp noted. Atherosclerosis without aneurysm. The heart is normal size. Gallbladder is absent. No mediastinal or hilar adenopathy. There is evidence of calcified granulomatous disease. 5 mm nodule in the right lower lobe on image 43. No pleural or pericardial effusion. Scoliosis is noted. There is no pneumothorax. CONCLUSION: 5 mm nodule in the right lower lobe, follow-up CT in 3-6 months recommended. Postoperative changes. This study was performed using automated techniques to achieve radiation exposure as low as reasonably achievable Dictated By: Funmilayo Badillo Transcribed By: Funmilayo Badillo Transcribed On: 07/22/2021 3:24 PM Electronically signed by: Funmilayo Badillo 07/22/2021 Thank you for referring VERONICA ALVAREZ to [facility]. Legally authenticated by POPE FUNMILAYO Almonte 2021-07-22 15:24:50 Procedure Note Provider, Generic [place] - 07/22/2021 [id number] [place] [address] Name: VERONICA ALVAREZ Exam Date: 07/22/2021 : 1975 Age 45 Gender: F Physician: Irma Masterson Facility: [facility] Facility HSV: Outpatient Exam: CT CHEST W/O CT CHEST without contrast HISTORY: Hemoptysis COMPARISON: None . TECHNIQUE: Axial CT without IV contrast administration. FINDINGS:Lack of IV contrast limits assessment of the solid organs, mediatinum, and the vasculature. Sternal wires, prosthetic valve and atrial appendage clamp noted. Atherosclerosis without aneurysm. The heart is normal size. Gallbladderis absent. No mediastinal or hilar adenopathy. There is evidence ofcalcified granulomatous disease. 5 mm nodule in the right lower lobe on image 43.No pleural or pericardial effusion. Scoliosis is noted. There is nopneumothorax. CONCLUSION: 5 mm nodule in the right lower lobe, follow-up CT in 3-6 monthsrecommended. Postoperative changes. This study was performed using automated techniques to achieve radiation exposure as low as reasonably achievable Dictated By: Funmilayo Badillo Transcribed By: Funmilayo Badillo Transcribed On: 07/22/2021 3:24 PM Electronically signed by: Funmilayo Badillo 07/22/2021 Thank you for referring VERONICA ALVAREZ to [facility]. Legally authenticated by POPE FUNMILAYO Almonte 2021-07-22 15:24:50 us Irma Masterson MD IMG CT PROCEDURES Final Resul t documented in this encounter Visit Diagnoses Not on filedocumented in this encounter Additional Health Concerns Infection Onset Date Last Indicated Resolved Time COVID-19 Rule-Out 08/21/2021 08/21/2021 08/21/2021 11:31 PM EDT COVID-19 Rule-Out 12/04/2021 12/05/2021 12/06/2021 7:33 PM EST COVID-19 Rule-Out 11/11/2022 11/11/2022 11/12/2022 1:58 AM EST COVID-19 Rule-Out 11/16/2024 11/16/2024 11/16/2024 7:38 PM EST COVID-19 Rule-Out 01/27/2025 01/27/2025 01/27/2025 12:04 PM EST documented as of this encounter Care Teams Veterinarian Small Animal Relationship Specialty Start Date End Date Georgette Moore APRN [address] [place] [address] PCP - General 04/12/21 02/01/25 Rodolfo Rhoades MD [address] [place] [address] PCP - General Family Medicine 02/02/25 Veronica Goodwin LPN VALUE[employer] [place] [address] TCM Nurse 07/25/24 08/25/24 Margaret Ro Community Health Worker 07/27/24 4 documented as of this encounter
--- OUTSIDE RECORDS SUMMARY | 2025-05-24 11:19 | XMS_ITS | Encounter Summary ---
Author Organization Healthcare Address [address] [place] [address] Care Team Providers Care Plastic Molding Operator Name Role Phone OscarGeorgette Jaswinder DOVE Primary Care Provider [phone] Veronica Goodwin LPN Unavailable Unavailable Margaret Ro Unavailable Unavailable Rodolfo Rhoades MD Primary Care Provider [phone] Encounter Details Date Type Department Care Team (Late Contact Info) Description 02/06/2022 Outside Procedure External Location [address] [place] [id number] Provider, [facility] Social History Tobacco Use Types Packs/Day Years Used Date Smoking Tobacco: Some Days Cigarettes 1 20 Smokeless Tobacco: Never PHQ-2 Answer Date Recorded [...] or suspected to have Coronavirus / COVID-19? Unable to assess 01/21/2022 10:59 AM EST documented as of this encounter Plan of Treatment Upcoming Encounters Date Type Department Care Team ([facility] Contact Info) Description 06/01/2025 10:20 AM EDT Office [facility] [place] [address] Rodolfo Rhoades MD [address] [place] [address] documented as of this encounter Procedures Procedure Name Priority Date/Time Associated Diagnosis Comments XR LUMBAR SPINE 2 OR 3 VIEWS 02/06/2022 2:09 PM EST documented in this encounter Results * XR Lumbar Spine 2 or 3 Views (02/06/2022 2:09 PM EST) Anatomical Region Laterality Modality Spine, L-spine Radiographic Tierra ging 02/06/2022 2:09 PM EST Narrative 02/06/2022 3:19 [place] [address] Name: VERONICA ALVAREZ Exam Date: 02/06/2022 : 1975 Age 46 Gender: F Physician: HORACE RYAN Facility: [facility] Facility HSV: Outpatient Exam: LUMBAR SPINE 2 TO 3V LUMBAR SPINE, 3 VIEWS HISTORY: Back pain FINDINGS: No fracture is identified. There is moderate levoscoliosis measuring approximately 30 . There is minimal degenerative disc disease. IMPRESSION: No acute process. Minimal degenerative change and levoscoliosis as above. Films reviewed , interpreted and dictated by Dr. Ramesh. Transcribed by Hesham Lux PA-C. Dictated By: ESTHER RAMESH Transcribed By: Shaheed Ramesh Transcribed On: 02/06/2022 3:07 PM Electronically signed by: ESTHER RAMESH 02/06/2022 Thank you for referring VERONICA ALVAREZ to [facility]. Legally authenticated by GADIEL DELEON 2022-02-06 15:07:32 Procedure Note Provider, Generic [place] - 02/06/2022 [place] [address] Name: VERONICA ALVAREZ Exam Date: 02/06/2022 : 1975 Age 46 Gender: F Physician: HORACE RYAN Facility: [facility] Facility HSV: Outpatient Exam: LUMBAR SPINE 2 TO 3V LUMBAR SPINE, 3 VIEWS HISTORY: Back pain FINDINGS: No fracture is identified. There is moderate levoscoliosismeasuring approximately 30 . There is minimal degenerative disc disease. IMPRESSION: No acute process. Minimal degenerative change and levoscoliosis as above. Films reviewed , interpreted and dictated by Dr. Ramesh. Transcribed by Hesham Lux PA-C. Dictated By: ESTHER RAMESH Transcribed By: Shaheed Ramesh Transcribed On: 02/06/2022 3:07 PM Electronically signed by: ESTHER RAMESH 02/06/2022 Thank you for referring JAXSONVERONICA Yun to [facility]. Legally authenticated by GADIEL DELEON 2022-02-06 15:07:32 us Generic [place] Provider IMG XR PROCEDURES Fi nal Result documented in this encounter Visit Diagnoses Not on filedocumented in this encounter Additional Health Concerns Infection Onset Date Last Indicated Resolved Time COVID-19 Rule-Out 11/11/2022 11/11/2022 11/12/2022 1:58 AM EST COVID-19 Rule-Out 11/16/2024 11/16/2024 11/16/2024 7:38 PM EST COVID-19 Rule-Out 01/27/2025 01/27/2025 01/27/2025 12:04 PM EST Assessment Noted Time A fall risk assessment has been complete d for the patient 08/02/2021 10:52 AM EDT documented as of this encounter Care Teams Plastic Molding Operator Relationship Specialty Start Date End Date Georgette Moore APRN [address] [place] [address] PCP - General 04/12/21 02/01/25 Rodolfo Rhoades MD [address] [place] [address] PCP - General Family Medicine 02/02/25 Veronica Goodwin LPN VALUE-BASED TRANSFORMATION PROGRAM [place] [id number] TCM Nurse 07/25/24 08/25/24 Margaret Ro Community Health Worker 07/27/24 4 documented as of this encounter
--- OUTSIDE RECORDS SUMMARY | 2025-05-24 11:19 | XMS_ITS | Encounter Summary ---
Author Organization Healthcare Address [address] [place], [place] [address] Care Team Providers Care Overhead Crane Inspector Name Role Phone Rodolfo Rhoades MD Primary Care Provider [phone] Reason for Visit * Reason Comments Med Refill Encounter Details Date Type Department Care Team (Late st Contact Info) Description 05/22/2025 Refill [facility] [address] [place] [address] Rodolfo Rhoades MD [address] [place] [address] Social History Tobacco Use Types [...] money to buy more. Never true 01/20/20 Within the past 12 months, t he [...] place to sleep or slept in a intermediate (including now)? No 07/25/2024 PHQ-9 Answer Date [...] any time in the past 12 m [facility], were you homeless or living in a intermediate (including now)? No 01/20/2025 Safety and Environment [...] the past 12 months has th e electric, gas, oil, or water company threatened to [...] Description 06/01/2025 10:20 AM EDT Office Visit [facility] [address] [place] [address] Rodolfo [place]oades [place] [address] documented as of this encounter [...] documented as of this encounter Care Teams Overhead Crane Inspector Relationship Specialty Start Date End Date Rodolfo Rhoades MD [address] [place] [address] PCP - General Family Medicine 02/02/25 documented as of this encounter
--- OUTSIDE RECORDS SUMMARY | 2025-05-24 11:19 | XMS_ITS | Encounter Summary ---
Author Organization Healthcare Address [address] [place] [address] Care Team Providers Care Scleroscope Tester Name Role Phone OscarGeorgette Jaswinder DOVE Primary Care Provider [phone] Veronica Goodwin LPN Unavailable Unavailable Margaret Ro Unavailable Unavailable Rodolfo Rhoades MD Primary Care Provider [phone] Encounter Details Date Type Department Care Team (Late Contact Info) Description 02/06/2022 Outside Procedure External Location [address] [place] [phone] Provider, [facility] Social History Tobacco Use Types Packs/Day Years [...] Upcoming Encounters Date Type Department Care Team ([facility] Contact Info) Description 06/01/2025 10:20 AM EDT Office Visit [facility] [place] [address] Rodolfo Rhoades MD [address] [place] [address] documented as of this encounter Procedures Procedure Name Priority Date/Time Associated Diagnosis Comments XR THORACIC SPINE 3 VIEWS 02/06/2022 2:09 PM EST documented in this encounter Results * XR Thoracic Spine 3 Views (02/06/2022 2:09 PM EST) Anatomical Region Laterality Modality Spine, T-spine Radiographic Tierra ging 02/06/2022 2:09 PM EST Narrative 02/06/2022 3:19 [place] [address] Name: VERONICA ALVAREZ Exam Date: 02/06/2022 : 1975 Age 46 Gender: F Physician: HORACE RYAN Facility: [facility] Facility HSV: Outpatient Exam: THORACIC SPINE 3V THORACIC SPINE HISTORY: Chronic mid back pain FINDINGS: 2 views of the thoracic spine demonstrate no evidence of fracture. There is dextroscoliosis measuring approximately 33 . IMPRESSION: No acute bony abnormality. Dextroscoliosis. Films reviewed , interpreted and dictated by Dr. Ramesh. Transcribed by Hesham Lux PA-C. Dictated By: ESTHER RAMESH Transcribed By: Shaheed Ramesh Transcribed On: 02/06/2022 3:08 PM Electronically signed by: ESTHER RAMESH 02/06/2022 Thank you for referring VERONICA ALVAREZ to [facility]. Legally authenticated by GADIEL DELEON 2022-02-06 15:08:18 Procedure Note Provider, Generic [place] - 02/06/2022 [place] [address] Name: VERONICA ALVAREZ Exam Date: 02/06/2022 : 1975 Age 46 Gender: F Physician: HORACE RYAN Facility: [facility] Facility HSV: Outpatient Exam: THORACIC SPINE 3V THORACIC SPINE HISTORY: Chronic mid back pain FINDINGS: 2 views of the thoracic spine demonstrate no evidence offracture. There is dextroscoliosis measuring approximately 33 . IMPRESSION: No acute bony abnormality. Dextroscoliosis. Films reviewed , interpreted and dictated by Dr. Ramesh. Transcribed by Hesham Lux PA-C. Dictated By: ESTHER RAMESH Transcribed By: Shaheed Ramesh Transcribed On: 02/06/2022 3:08 PM Electronically signed by: ESTHER RAMESH 02/06/2022 Thank you for referring VERONICA ALVAREZ to [facility]. Legally authenticated by GADIEL DELEON 2022-02-06 15:08:18 Generic [facility] Provider IMG XR PROCEDURES Fi nal Result [...] documented as of this encounter Care Teams Scleroscope Tester Relationship Specialty Start Date End Date Georgette Moore APRN [address] [place] [phone] PCP - General 04/12/21 02/01/25 Rodolfo Rhoades MD [address] [place] [address] PCP - General Family Medicine 02/02/25 Veronica Goodwin LPN VALUE-[employer]ED [place] [address] TCM Nurse 07/25/24 08/25/24 Margaret Ro Community Health Worker 07/27/24 4 documented as of this encounter
--- OUTSIDE RECORDS SUMMARY | 2025-05-24 11:19 | XMS_ITS | Encounter Summary ---
Author Organization [facility] Address [address] [place], [place] [address] Care Team Providers Care Medical Language Specialist Name Role Phone Rodolfo Rhoades MD Primary Care Provider [phone] Reason for Visit * Reason Onset Date Comments HCN - Patient Message 04/14/2025 Encounter Details Date Type Department Care Team (Late st Contact Info) Description 04/14/2025 Telephone [facility] [address] [place] [address] Rodolfo Rhoades MD [address] [place] [address] HCN - Patient Message Social History Tobacco Use Types Packs/Day Years [...] place to sleep or slept in a usp (including now)? No 07/25/2024 PHQ-9 Answer Date [...] any time in the past 12 m [facility], were you homeless or living in a usp (including now)? No 01/20/2025 Safety and Environment [...] AM EDT documented as of this encounter Miscellaneous Notes * Telephone Encounter - Bri Jung LPN - 04/14/2025 10:58 AM EDT Discussed with pt to see what time would work for her, she will just keep original time. * Telephone Encounter - Anamika Levin - 04/14/2025 9:32 AM EDT Patient Phone Message Reason for Call:she is asking if she can be worked in with Dr. Rhoades earlier today than her appt at 3:20. She is having issues with her work, Please call to advise Best contact number and optimal time of day to reach caller:[phone] Note: Please do not reply to this message. Follow-up communication and further actions as a result of this message need to be communicated with the patient directly, if the patient is not active onMyChart. If the patient is active on MyChart, they will receive notification of the communication/outcome via [employer]. documented in this encounter Plan of Treatment Upcoming Encounters Date Type Department Care Team (Late st Contact Info) Description 06/01/2025 10:20 AM EDT Office Visit [facility] [place] [address] [place] [address] documented as of this encounter Visit [...] documented as of this encounter Care Teams Medical Language Specialist Relationship Specialty Start Date End Date Rodolfo Rhoades MD [address] [place] [address] PCP - General Family Medicine 02/02/25 documented as of this encounter
--- OUTSIDE RECORDS SUMMARY | 2025-05-24 11:19 | XMS_ITS | Encounter Summary ---
Author Organization Healthcare Address [address] [place] [address] Care Team Providers Care Marine Steward Name Role Phone Georgette Moore APRN Primary Care Provider [phone] Veronica Goodwin LPN Unavailable Unavailable Margaret Ro Unavailable Unavailable Rodolfo Rhoades MD Primary Care Provider [phone] Encounter Details Date Type Department Care Team (Late st Contact Info) Description 07/22/2024 Outside Procedure External Location [address] [place] [id number] Provider, Swapnil Theodosia Social History Tobacco Use Types Packs/Day Years Used Date Smoking Tobacco: Every Day Cigarettes 1 .5 Started: 2001 Passive Smoke Exposure: Current Smokeless Tobacco: Never Humiliation, Afraid, Rape, and Kick questionnair e Answer Date Recorded Within the last year, have y ou been afraid of your partner or ex-partner? No 07/25/2024 Within the last year, have y ou been humiliated or emotionally abused in other ways by your partner or ex-partner? No Within the last year, have y ou been kicked, hit, slapped, or otherwise physically hurt by your partner or ex-partner? No 07/25/2024 Within the last year, have y ou been raped or forced to have any kind of sexual activity by your partner or ex-partner? No 07/25/2024 PHQ-2 Answer Date Recorded Patient Health Questionnaire-2 Score 0 07/25/2024 Hunger Vital Sign Answer Date Recorded Within the past 12 months, y ou worried that your food would run out before you got the money to buy more. Never true 07/25/20 24 Within the past 12 months, t he food you bought just didn't last and you didn't have money to get more. Never true 07/25/2024 PRAPARE - Transportation Answer Date Re corded In the past 12 months, has l ack of transportation kept you from medical appointments or from getting medications? No 07/01 In the past 12 months, has l ack of transportation kept you from meetings, work, or from getting things needed for daily living? No 07/25/2024 Housing Stability Vital Sign Answer Yovany e [...] place to sleep or slept in a long term (including now)? No 07/25/2024 Safety and Environment Answer Date Abraham rded [...] shut off services in your home? No 07/25/2024 PHQ-2A Answer Date Recorded Patient Health Questionnaire-2 Score 0 04/23/2023 Comments Unknown Sex and Gender Information Value Date Recorded Sex Assigned at Female 06/19/2021 8:21 AM EDT Legal Sex Female 8:54 PM EDT Gender Identity Female 06/19/2021 8:21 AM EDT Sexual Orientation Straight 06/19/2021 8: 21 AM EDT documented as of this encounter Functional Status * Over the past 2 weeks, how often have you been bothered by any of the following problems? Question Answer Date of Assessment Author Little interest or pleasure in doing things Not at all 07/25/2024 3:43 PM EDT Shikha Huddleston Feeling down, depressed, or hopeless Not at all 07/25/2024 3:43 PM EDT Shikha Huddleston Patient Health Questionnaire -2 Score 0 07/25/2024 3:43 PM EDT Shikha Huddleston documented as of this encounter Plan of Treatment Upcoming Encounters Date Type Department Care Team (Late st Contact Info) Description 06/01/2025 10:20 AM EDT Office Visit [facility] [address] [place] [address] Rodolfo Rhoades MD [address] [place] [address] documented as of this encounter Procedures Procedure Name Priority Date/Time Associated Diagnosis Comments ECHO, ADULT TRANSTHORACIC COMPLETE W/ COLOR AND DOPPLER 07/22/2024 6:31 AM EDT documented in this encounter Results * Echo, Adult Transthoracic Complete w/ Color and Doppler (07/22/2024 6:31 AM EDT) Anatomical Region Laterality Modality Ultrasound 07/22/2024 6:31 AM EDT Narrative 07/22/2024 12:07 PM EDT [address] [address] Name: VERONICA ALVAREZ Exam Date: 07/22/2024 : 1975 Age 48 years Gender: F Physician: VICTORIANO REYES Facility: [facility] Facility HSV: Inpatient Exam: ECHO W SPEC COLOR FLOW Reason for Study: Chest pain SUMMARY Normal LV size with normal function. The ejection fraction is 55-60%. Left ventricular filling pattern is indeterminate. There is moderate aortic stenosis (Mean grad=26mmHg, ROB=0.85cmA). There is a Mechanical AV prosthesis. INTERPRETATION DETAIL Fair quality study. Left ventricle: The left ventricle is normal in size with normal systolic function. The ejection fraction is 55-60%. There is normal LV wall thickness. LV geometry is normal. The left ventricular wall motion is normal. The left ventricular filling pattern is indeterminate. Left atrium: The left atrium is normal. LA volume: 46.7mL, LA volume index: 32.2mL/mA. Right ventricle: The right ventricle is normal in size with normal function. Right atrium: The right atrium is normal. Mitral valve: The mitral valve is normal. There is no mitral stenosis. There is no mitral regurgitation. Aortic valve: There is moderate aortic stenosis with a valve area of 0.85 parasitology teacher (Peak grad=45mmHg, Mean grad=24mmHg, LVOT grady=2.10cm, LVOT TVI=19.3cm, Ao TVI=79.0cm). The dimensionless index is 0.24. AV peak bgekttvc=870xy/sec. There is a Mechanical AV prosthesis. (Peak grad= 45 mmHg, Mean Grad= 24 mmHg). Tricuspid valve: The tricuspid valve is normal. There is no tricuspid regurgitation, so PA pressure cannot be estimated. Pulmonic valve: The pulmonic valve is normal. Pericardium: The pericardium is normal. Interatrial septum: The interatrial septum is normal. Aorta: The aorta is normal. The aortic root is normal. Aortic dimensions - Ao M-mode= 2.25cm, Ascending=3.00cm. Vena Cava: The inferior vena cava is normal. MEASUREMENTS Left Ventricle IVSd: 0.86cm (0.6-1.1cm) PWd: 0.86cm (0.6-1.1cm) Mass Naz: 125g LVMI: 86g/mA (>50-95g/m) LVIDd: 4.50cm (3.7-5.6 cm) LVIDdI: 3.10cm/m2 LVIDs: 2.72cm (1.8-4.2 cm) LVIDsI: 1.88cm/m2 RWT: 0.38 (<0.42) E to A: 1.00 (0.6-2) E-e prime med: 17.00 E-e prime lat: 14.17 Decel: 206.00ms (168-232ms) Right Ventricle Mid RV Grady: 2.4cm (2.7-3.3cm) Max Valve Velocities AV peak calixto: 334cm/sec Legally authenticated by CINDY JORDAN 2024-07-22 12:04:58 LVOT: 85.10cm/sec Atria LA AP: 2.9cm LA vol: 46.7mL SHREYAS: 32.2mL/mA (16-28ml/m2) Dictated By: HANY WHITE Transcribed By: Transcribed On: 07/22/2024 12:04 PM Electronically signed by: HANY WHITE 07/22/2024 Thank you for referring VERONICA ALVAREZ to [facility]. Legally authenticated by CINDY JORDAN 2024-07-22 12:04:58 Procedure Note Provider, Generic Theodosia - 07/22/2024 [place] [id number] Name: VERONICA ALVAREZ Exam Date: 07/22/2024 : 1975 Age 48 years Gender: F Physician: VICTORIANO REYES Facility: [facility] Facility HSV: Inpatient Exam: ECHO W SPEC COLOR FLOW Reason for Study: Chest pain SUMMARY Normal LV size with normal function. The ejection fraction is 55-60%. Left ventricular filling pattern is indeterminate. There is moderate aortic stenosis (Mean grad=26mmHg, ROB=0.85cmA). There is a Mechanical AV prosthesis. INTERPRETATION DETAIL Fair quality study. Left ventricle: The left ventricle is normal in size with normal systolic function. The ejection fraction is 55-60%. There is normal LV wall thickness. LV geometry is normal. The left ventricular wall motion is normal. The left ventricular filling pattern is indeterminate. Left atrium: The left atrium is normal. LA volume: 46.7mL, LA volume index: 32.2mL/mA. Right ventricle: The right ventricle is normal in size with normal function. Right atrium: The right atrium is normal. Mitral valve: The mitral valve is normal. There is no mitral stenosis. There is no mitral regurgitation. Aortic valve: There is moderate aortic stenosis with a valve area of 0.85 parasitology teacher (Peak grad=45mmHg, Mean grad=24mmHg, LVOT grady=2.10cm, LVOT TVI=19.3cm, Ao TVI=79.0cm). The dimensionless index is 0.24. AV peak wpdynyzs=932vg/sec. There is a Mechanical AV prosthesis. (Peak grad= 45 mmHg, Mean Grad= 24 mmHg). Tricuspid valve: The tricuspid valve is normal. There is no tricuspid regurgitation, so PA pressure cannot be estimated. Pulmonic valve: The pulmonic valve is normal. Pericardium: The pericardium is normal. Interatrial septum: The interatrial septum is normal. Aorta: The aorta is normal. The aortic root is normal. Aortic dimensions - Ao M-mode= 2.25cm, Ascending=3.00cm. Vena Cava: The inferior vena cava is normal. MEASUREMENTS Left Ventricle IVSd: 0.86cm (0.6-1.1cm) PWd: 0.86cm (0.6-1.1cm) Mass Naz: 125g LVMI: 86g/mA (>50-95g/m) LVIDd: 4.50cm (3.7-5.6 cm) LVIDdI: 3.10cm/m2 LVIDs: 2.72cm (1.8-4.2 cm) LVIDsI: 1.88cm/m2 RWT: 0.38 (<0.42) E to A: 1.00 (0.6-2) E-e prime med: 17.00 E-e prime lat: 14.17 Decel: 206.00ms (168-232ms) Right Ventricle Mid RV Grady: 2.4cm (2.7-3.3cm) Max Valve Velocities AV peak calixto: 334cm/sec Legally authenticated by CINDY JORDAN 2024-07-22 12:04:58 LVOT: 85.10cm/sec Atria LA AP: 2.9cm LA vol: 46.7mL SHREYAS: 32.2mL/mA (16-28ml/m2) Dictated By: HANY WHITE Transcribed By: Transcribed On: 07/22/2024 12:04 PM Electronically signed by: HANY WHITE 07/22/2024 Thank you for referring NELIDAVERONICA Yun to [facility]. Legally authenticated by CINDY JORDAN 2024-07-22 12:04:58 us Generic Theodosia Provider CV ECHO PROCEDURES F inal Result documented in this encounter Visit Diagnoses Not on filedocumented in this encounter Additional Health Concerns Infection Onset Date Last Indicated Resolved Time COVID-19 Rule-Out 11/16/2024 11/16/2024 11/16/2024 7:38 PM EST COVID-19 Rule-Out 01/27/2025 01/27/2025 01/27/2025 12:04 PM EST Assessment Noted Time A fall risk assessment has been complete d for the patient 03/19/2023 1:57 PM EDT documented as of this encounter Care Teams Marine Steward Relationship Specialty Start Date End Date Georgette Moore APRN [address] [place] [phone] PCP - General 04/12/21 02/01/25 Rodolfo Rhoades MD [address] [place] [address] PCP - General Family Medicine 02/02/25 Veronica Goodwin LPN VALUE[employer]ED [place] [address] TCM Nurse 07/25/24 08/25/24 Margaret Ro Community Health Worker 07/27/24 4 documented as of this encounter
--- OUTSIDE RECORDS SUMMARY | 2025-05-24 11:19 | XMS_ITS | Encounter Summary ---
Author Organization Healthcare Address [address] [place], [place] [id number] Care Team Providers Care Regional Loss Prevention Manager Name Role Phone Rodolfo Rhoades MD Primary Care Provider [phone] Reason for Visit * Reason Onset Date Comments HCN Clinical Concern/Question 03/01/2025 PT IN OFFICE CURRENTLY Encounter Details Date Type Department Care Team (Late st Contact Info) Description 03/01/2025 Telephone [facility] & [address] [address] Rodolfo Rhoades MD [address] [place] [address] HCN Clinical Concern/Question (PT IN OFFICE CURRENTLY) Social History Tobacco Use Types Packs/Day Years [...] place to sleep or slept in a correction (including now)? No 07/25/2024 PHQ-9 Answer Date [...] any time in the past 12 m [facility], were you homeless or living in a correction (including now)? No 01/20/2025 Safety and Environment [...] encounter Miscellaneous Notes * Telephone Encounter - Nicole Smith - 03/01/2025 12:50 PM EDT faxed * Telephone Encounter - Jeimy Trent - 03/01/2025 11:29 AM EDT Clinical Concern/Question Reason for Call: PT CURRENTLY IN DR MARS OFFICE---asking fro sleep study results. Please fax asapto [phone] Best contact number: Other: [phone] Optimal time of day to reach caller: ANYTIME Additional comments/information from caller: None Note: Please do not reply to this message. Follow-up communication and further actions as a result of this message need to be communicated with the patient directly, if the patient is not active onMyChart. If the patient is active on MyChart, they will receive notification of the communication/outcome via MyChart. documented in this encounter Plan of Treatment Upcoming Encounters Date Type Department Care Team (Late st Contact Info) Description 06/01/2025 10:20 AM EDT Office Visit [facility] [address] [place] [address] Rodolfo Rhoades MD [address] [place] [address] documented as of this encounter Visit Diagnoses Not on filedocumented in this encounter Additional Health Concerns Assessment Noted Time PHQ-9 Depression Total Score: 0 11/16/20 24 11:05 AM EST A fall risk assessment has been complete d for the patient 03/19/2023 1:57 PM EDT A Body Mass Index follow-up plan has been documented for the patient 02/15/2025 2:38 PM EDT documented as of this encounter Care Teams Regional Loss Prevention Manager Relationship Specialty Start Date End Date Rodolfo Rhoades MD [address] [place] [address] PCP - General Family Medicine 02/02/25 documented as of this encounter
--- OUTSIDE RECORDS SUMMARY | 2025-05-24 11:19 | XMS_ITS | Encounter Summary ---
Author Organization Healthcare Address [address] [id number] Care Team Providers Care Shovel Oiler Name Role Phone Rodolfo Rhoades MD Primary Care Provider [phone] Reason for Visit * Reason Comments Pre-Visit Review Encounter Details Date Type Department Care Team (Late st Contact Info) Description 04/19/2025 Education [facility] [address] [place] [address] Gerard Perez RN Social History Tobacco Use Types Packs/Day Years [...] place to sleep or slept in a senior living (including now)? No 07/25/2024 PHQ-9 Answer Date [...] any time in the past 12 m [facility], were you homeless or living in a senior living (including now)? No 01/20/2025 Safety and Environment [...] Description 06/01/2025 10:20 AM EDT Office Visit [facility] [address] [place] [address] Rodolfo Rhoades MD [address] [place] [address] documented as of this encounter Visit [...] documented as of this encounter Care Teams Shovel Oiler Relationship Specialty Start Date End Date Rodolfo Rhoades MD [address] [place] [address] PCP - General Family Medicine 02/02/25 documented as of this encounter
--- OUTSIDE RECORDS SUMMARY | 2025-05-24 11:19 | XMS_ITS | Encounter Summary ---
Author Organization [facility] Address [address] [place], [place] [address] Care Team Providers Care Gauge Checker Name Role Phone Georgette Moore APRN Primary Care Provider [phone] Rodolfo Rhoades MD Primary Care Provider [phone] Reason for Visit * Reason Comments Med Refill Encounter Details Date Type Department Care Team (Late st Contact Info) Description 11/28/2024 Refill [facility] [address] [place] [address] Imelda Burgos APRN [address] [place] [address] COPD exacerbation (CMS/HCC); Cough with hemoptysis Social History Tobacco Use Types Packs/Day Years [...] place to sleep or slept in a detention (including now)? No 07/25/2024 PHQ-9 Answer Date Recorded Patient Health Questionnaire-9 Score 0 11/16/2024 Safety and Environment Answer Date Abraham rded [...] encounter Miscellaneous Notes * Telephone Encounter - Luis, Kasha L - 11/28/2024 12:48 PM EST Pt stated this was a mistake from the pharmacy documented in this encounter Plan of Treatment Upcoming Encounters Date Type Department Care Team (Late st Contact Info) Description 06/01/2025 10:20 AM EDT Office Visit [facility] [address] [address] Rodolfo Rhoades MD [address] [address] documented as of this encounter Visit Diagnoses Diagnosis COPD exacerbation (CMS/HCC) Obstructive chronic bronchitis with exacerbation Cough with hemoptysis documented in this encounter Additional Health Concerns Infection Onset Date Last Indicated Resolved Time COVID-19 Rule-Out 01/27/2025 01/27/2025 01/27/2025 12:04 PM EST Assessment Noted Time PHQ-9 Depression Total Score: 0 11/16/20 11:05 AM EST A fall risk assessment has been complete d for the patient 03/19/2023 1:57 PM EDT A Body Mass Index follow-up plan has been documented for the patient 11/16/2024 12:14 PM EST documented as of this encounter Care Teams Gauge Checker Relationship Specialty Start Date End Date Georgette Moore APRN [address] [address] PCP - General 04/12/21 02/01/25 Rodolfo Rhoades MD [address] [address] PCP - General Family Medicine 02/02/25 documented as of this encounter
--- OUTSIDE RECORDS SUMMARY | 2025-05-24 11:19 | XMS_ITS | Encounter Summary ---
Author Organization Healthcare Address [address] [place] [address] Care Team Providers Care Weekend Receptionist Name Role Phone OscarGeorgette Jaswinder DOVE Primary Care Provider [phone] Veronica Goodwin LPN Unavailable Unavailable Margaret Ro Unavailable Unavailable Rodolfo Rhoades MD Primary Care Provider [phone] Encounter Details Date Type Department Care Team (Late Contact Info) Description 02/06/2022 Outside Procedure External Location [address] [place] [phone] Provider, [facility] Social History Tobacco Use Types Packs/Day [...] Upcoming Encounters Date Type Department Care Team ([facility] Contact Info) Description 06/01/2025 10:20 AM EDT Office Visit [facility] [place] [address] Rodolfo Rhoades MD [address] [place] [address] documented as of this encounter Procedures Procedure Name Priority Date/Time Associated Diagnosis Comments XR CERVICAL SPINE 2 OR 3 VIEWS 02/06/2022 2:09 PM EST documented in this encounter Results * XR Cervical Spine 2 or 3 Views (02/06/2022 2:09 PM EST) Anatomical Region Laterality Modality Spine, C-spine Radiographic Tierra ging 02/06/2022 2:09 PM EST Narrative 02/06/2022 3:21 [place] [address] Name: VERONICA ALVAREZ Exam Date: 02/06/2022 : 1975 Age 46 Gender: F Physician: HORACE RYAN Facility: [facility] Facility HSV: Outpatient Exam: CERVICAL SPINE 2 TO 3V CERVICAL SPINE HISTORY: Neck pain FINDINGS: No fracture is present. Alignment is normal. No prevertebral soft tissue swelling is seen. There is moderate degenerative disc disease at C4-C5 and C5-C6. IMPRESSION: Moderate degenerative disc disease without acute process Films reviewed , interpreted and dictated by Dr. Ramesh. Transcribed by Hesham Lux PA-C. Dictated By: ESTHER RAMESH Transcribed By: Shaheed Ramesh Transcribed On: 02/06/2022 3:08 PM Electronically signed by: ESTHER RAMESH 02/06/2022 Thank you for referring VERONICA ALVAREZ to [facility]. Legally authenticated by GADIEL DELEON 2022-02-06 15:08:51 Procedure Note Provider, Generic [place] - 02/06/2022 [place] [address] Name: VERONICA ALVAREZ Exam Date: 02/06/2022 : 1975 Age 46 Gender: F Physician: HORACE RYAN Facility: [facility] Facility HSV: Outpatient Exam: CERVICAL SPINE 2 TO 3V CERVICAL SPINE HISTORY: Neck pain FINDINGS: No fracture is present. Alignment is normal. No prevertebralsoft tissue swelling is seen. There is moderate degenerative disc disease atC4-C5 and C5-C6. IMPRESSION: Moderate degenerative disc disease without acute process Films reviewed , interpreted and dictated by Dr. Ramesh. Transcribed by Hesham Lux PA-C. Dictated By: ESTHER RAMESH Transcribed By: Shaheed Ramesh Transcribed On: 02/06/2022 3:08 PM Electronically signed by: ESTHER RAMESH 02/06/2022 Thank you for referring JAXSONJaswinderADANON to [facility]. Legally authenticated by GADIEL DELEON 2022-02-06 15:08:51 us Generic [place] Provider IMG XR PROCEDURES Fi nal Result [...] documented as of this encounter Care Teams Weekend Receptionist Relationship Specialty Start Date End Date Georgette Moore, DERRELL [address] [place] [address] PCP - General 04/12/21 02/01/25 Rodolfo Rhoades MD [address] [place] [address] PCP - General Family Medicine 02/02/25 Veronica Goodwin LPN VALUE[employer] [place] [address] TCM Nurse 07/25/24 08/25/24 Margaret Ro Community Health Worker 07/27/24 4 documented as of this encounter
--- OUTSIDE RECORDS SUMMARY | 2025-05-24 11:19 | XMS_ITS | Encounter Summary ---
Author Organization Healthcare Address [address] [place], [place] [address] Care Team Providers Care It Data Architect Name Role Phone Rodolfo Rhoades MD Primary Care Provider [phone] Reason for Visit * Reason Onset Date Comments HCN Clinical Concern/Question 03/16/2025 Pl ease see note... Encounter Details Date Type Department Care Team (Late st Contact Info) Description 03/16/2025 Telephone [facility] [address] [address] Rodolfo Rhoades MD [address] [place] [address] HCN Clinical Concern/Question (Please see note...) Social History Tobacco Use Types Packs/Day Years [...] place to sleep or slept in a halfway (including now)? No 07/25/2024 PHQ-9 Answer Date [...] any time in the past 12 m [facility], were you homeless or living in a halfway (including now)? No 01/20/2025 Safety and Environment [...] the past 12 months has th e [employer], oil, or water [employer] threatened to shut off services in your [...] encounter Miscellaneous Notes * Telephone Encounter - Mindy Gudino - 03/16/2025 2:53 PM EDT Called and informed pt that referral was placed in computer. Pt voiced understanding. * Telephone Encounter - Rodolfo Rhoades MD - 03/16/2025 11:10 AM EDT Can refer for exertional SOB with history of aortic valve repair. * Telephone Encounter - Jennifer Marrero - 03/16/2025 8:47 AM EDT Clinical Concern/Question Reason for Call: Patient is asking for message to be sent to Dr. Rhoades asking if he will send a referral for her to see yoke setter Dr. Beltran at [facility] in [place] location. Their fax number is [phone]. Patient is asking for a call back to let her know if that can be sent. Best contact number: [phone] (mobile) Optimal time of day to reach caller: ANYTIME Additional comments/information from caller: Not Applicable Note: Please do not reply to this message. Follow-up communication and further actions as a result of this message need to be communicated with the patient directly, if the patient is not active onMyChart. If the patient is active on MyChart, they will receive notification of the communication/outcome via [employer]. documented in this encounter Plan of Treatment Upcoming Encounters Date Type Department Care Team (Late st Contact Info) Description 06/01/2025 10:20 AM EDT Office Visit [facility] [address] [place] [address] Rodolfo Rhoades MD [address] [place] [address] documented as of this encounter [...] as of this encounter Care Teams It Data Architect Relationship Specialty Start Date End Date Rodolfo Rhoades MD [address] [place] [address] PCP - General Family Medicine 02/02/25 documented as of this encounter
--- OUTSIDE RECORDS SUMMARY | 2025-05-24 11:19 | XMS_ITS | Encounter Summary ---
Author Organization Healthcare Address [address] [place] [address] Care Team Providers Care Tear Down Worker Name Role Phone Rodolfo Rhoades MD Primary Care Provider Encounter Details Date Type Department Care Team (Late st Contact Info) Description 03/28/2025 Orders Only [facility] [address] [place] [address] Rodolfo Rhoades MD [address] [place] [address] Social History Tobacco Use Types [...] place to sleep or slept in a retirement (including now)? No 07/25/2024 PHQ-9 Answer Date [...] any time in the past 12 m [facility], were you homeless or living in a retirement (including now)? No 01/20/2025 Safety and Environment [...] Description 06/01/2025 10:20 AM EDT Office Visit [facility] [address] [place] [address] Rodolfo Rhoades [place] [address] documented as of this encounter [...] documented as of this encounter Care Teams Tear Down Worker Relationship Specialty Start Date End Date Rodolfo Rhoades MD [address] [place] [address] PCP - General Family Medicine 02/02/25 documented as of this encounter
--- OUTSIDE RECORDS SUMMARY | 2025-05-24 11:19 | XMS_ITS | Encounter Summary ---
Author Organization Healthcare Address [address] [place] [address] Care Team Providers Care Tip Inserter Name Role Phone Georgette Moore APRN Primary Care Provider [phone] Veronica Goodwin LPN Unavailable Unavailable Margaret Ro Unavailable Unavailable Rodolfo Rhoades MD Primary Care Provider [phone] Encounter Details Date Type Department Care Team (Late st Contact Info) Description 07/21/2024 Outside Procedure External Location [address] [place] [id number] Provider, Swapnil Douglas Social History Tobacco Use Types Packs/Day Years [...] place to sleep or slept in a care home (including now)? No 07/25/2024 Safety and Environment [...] Description 06/01/2025 10:20 AM EDT Office Visit [facility] [address] [place] [id number] Rodolfo Rhoades [place] [address] documented as of this encounter Procedures Procedure Name Priority Date/Time Associated Diagnosis Comments XR CHEST 1 VIEW 07/21/2024 4:03 PM EDT documented in this encounter Results * XR Chest 1 View (07/21/2024 4:03 PM EDT) Anatomical Region Laterality Modality Chest Digital Radiogra phy 07/21/2024 4:03 PM EDT Narrative 07/21/2024 4:31 PM EDT [address] [place] [address] Name: VERONICA ALVAREZ Exam Date: 07/21/2024 : 1975 Age 48 years Gender: F Physician: PAOLA PIZARRO Facility: [facility] Facility HSV: Outpatient Exam: CHEST PORTABLE INDICATION: Chest Pain w/o Trauma/Injury X-RAY - XR CHEST 1 VIEW PORTABLE COMPARISON: None. FINDINGS: SUPPORT DEVICES: None LUNGS: Hyperinflated emphysematous lungs with a large bulla in the right greater than left apices. No effusion or pneumothorax. MEDIASTINUM AND CARDIOVASCULAR STRUCTURES: Postsurgical changes of the heart and mediastinum. BONES AND SOFT TISSUES: Unremarkable. IMPRESSION: Emphysematous changes with large bulla in the right greater than left apices. No acute findings. Electronically signed by:Delfina De Leon MD07/21/2024 04:27 PM EDT RP Dictated By: Delfina De Leon Transcribed By: Transcribed On: 07/21/2024 4:12 PM Electronically signed by: Delfina De Leon 07/21/2024 Thank you for referring VERONICA ALVAREZ to [facility]. Legally authenticated by NATALIE CULVER 2024-07-21 16:12:48 Procedure Note Provider, Swapnil Willoughbywn - 07/21/2024 [facility] [address] [place] [address] Name: VERONICA ALVAREZ Exam Date: 07/21/2024 : 1975 Age 48 years Gender: F Physician: PAOLA PIZARRO Facility: [facility] Facility HSV: Outpatient Exam: CHEST PORTABLE INDICATION: Chest Pain w/o Trauma/Injury X-RAY - XR CHEST 1 VIEW PORTABLE COMPARISON: None. FINDINGS: SUPPORT DEVICES: None LUNGS: Hyperinflated emphysematous lungs with a large bulla in the right greater than left apices. No effusion or pneumothorax. MEDIASTINUM AND CARDIOVASCULAR STRUCTURES: Postsurgical changes of theheart and mediastinum. BONES AND SOFT TISSUES: Unremarkable. IMPRESSION: Emphysematous changes with large bulla in the right greater than leftapices. No acute findings. Electronically signed by:Delfina De Leon MD07/21/2024 04:27 PM EDT Dictated By: Delfina De Leon Transcribed By: Transcribed On: 07/21/2024 4:12 PM Electronically signed by: Delfina De Leon 07/21/2024 Thank you for referring VERONICA ALVAREZ to [facility]. Legally authenticated by NATALIE CULVER 2024-07-21 16:12:48 Generic Douglas Provider IMG XR PROCEDURES Fi nal Result [...] documented as of this encounter Care Teams Tip Inserter Relationship Specialty Start Date End Date Georgette Moore APRN [address] [place] [address] PCP - General 04/12/21 02/01/25 Rodolfo Rhoades MD [address] [place] [address] PCP - General Family Medicine 02/02/25 Veronica Goodwin LPN [employer] [place] [address] TCM Nurse 07/25/24 08/25/24 Margaret Ro Community Health Worker 07/27/24 4 documented as of this encounter
--- OUTSIDE RECORDS SUMMARY | 2025-05-24 11:19 | XMS_ITS | Encounter Summary ---
Author Organization [facility] Address [address] [place] [address] Care Team Providers Care Physical Instructor Name Role Phone Georgette Moore APRN Primary Care Provider [phone] Veronica Goodwin LPN Unavailable Unavailable Margaret Ro Unavailable Unavailable Rodolfo Rhoades MD Primary Care Provider [phone] Reason for Visit * Reason Comments Med Refill Encounter Details Date Type Department Care Team (Late st Contact Info) Description 12/21/2021 Refill Family and Community Medicine [address] [place] [address] Georgette Moore APRN [address] [place] [address] Chronic fatigue Social History Tobacco Use Types Packs/Day Years [...] have Coronavirus / COVID-19? Unable to assess 12/05/2021 12:06 PM EST documented as of this encounter Miscellaneous Notes * Telephone Encounter - Liseth Flowers - 12/24/2021 9:53 AM EST Pt stated she is not taking this, tried canceling this through the pharmacy and they sent this instead. documented in this encounter Plan of Treatment Upcoming Encounters Date Type Department Care Team (Late st Contact Info) Description 06/01/2025 10:20 AM EDT Office Visit [facility] [address] [place] [address] Rodolfo Rhoades MD [address] [place] [address] documented as of this encounter Visit Diagnoses Diagnosis Chronic fatigue Other malaise and fatigue documented in this encounter Additional Health Concerns Infection Onset Date Last Indicated Resolved Time COVID-19 Rule-Out 11/11/2022 11/11/2022 11/12/2022 1:58 AM EST COVID-19 Rule-Out 11/16/2024 11/16/2024 11/16/2024 7:38 PM EST COVID-19 Rule-Out 01/27/2025 01/27/2025 01/27/2025 12:04 PM EST Assessment Noted Time A fall risk assessment has been complete d for the patient 08/02/2021 10:52 AM EDT documented as of this encounter Care Teams Physical Instructor Relationship Specialty Start Date End Date Georgette Moore APRN [address] [place] [address] PCP - General 04/12/21 02/01/25 Rodolfo Rhoades MD [address] [place] [address] PCP - General Family Medicine 02/02/25 Veronica Goodwin LPN [employer] [place] [address] TCM Nurse 07/25/24 08/25/24 Margaret Ro Community Health Worker 07/27/24 4 documented as of this encounter
--- OUTSIDE RECORDS SUMMARY | 2025-05-24 11:19 | XMS_ITS | Encounter Summary ---
Author Organization Healthcare Address [address] [place] [address] Care Team Providers Care Radio Electronics Technician Name Role Phone Rodolfo Rhoades MD Primary Care Provider [phone] Encounter Details Date Type Department Care Team (Late st Contact Info) Description 03/28/2025 Results Follow-Up [facility] [address] [place] [address] Rodolfo Rhoades MD [address] [place] [address] Social History Tobacco Use Types [...] place to sleep or slept in a chcf (including now)? No 07/25/2024 PHQ-9 Answer Date [...] any time in the past 12 m onths, were you homeless or living in a chcf (including now)? No 01/20/2025 Safety and Environment [...] as of this encounter Miscellaneous Notes * Result Encounter Note - Rodolfo Rhoades MD - 03/28/2025 10:16 AM EDT Also I added an HbA1c to see if this is dropping to further evaluate her 3 onth average sugar. * Result Encounter Note - Rodolfo Rhoades MD - 03/28/2025 8:09 AM EDT Vitamin D looks great. Recommend going to [facility] once monthly. Fasting sugar is low, kidney function looks good, normal electrolytes and liver function tests have returned to normal. No anemia, normal thyroid, normal white blood cell count and platelets. Troponin came back borderline up. It's not that high but given her intermittent symptoms this couldsupport demand ischemia versus the start of a trend up. Please check on patient and symptoms. documented in this encounter Plan of Treatment Upcoming Encounters Date Type Department Care Team (Late st Contact Info) Description 06/01/2025 10:20 AM EDT Office Visit [facility] [address] [place] [address] Rodolfo Rhoades MD [address] [place] [id number] Scheduled Orders Name Type Priority Associated Diagnoses Orde r Schedule Insulin, random Lab Routine Low blood sugar Expected: 03/28/2025 (Approximate), Expires: 09/27/2026 C-peptide Lab Routine Low blood sugar Expected: 03/28/2025 (Approximate), Expires: 09/27/2026 documented as of this encounter Results * Hemoglobin A1c (03/27/2025 12:35 PM EDT) Hemoglobin A1c 5.4 <5.7 % 03/28/2025 3:54 PM EDT [facility] Blood Venous blood specimen / Unknown Venipuncture / Unknown 03/27/2025 12:35 PM EDT 03/27/2025 12:35 PM EDT Narrative [facility] - 03/28/2025 3:54 PM EDT HA1C Interpretive Data: Diagnosis of Diabetes: Diabetic > or = 6.5% Pre-diabetic 5.7 to 6.4% Non-diabetic < or = 5.6% Glycemic Targets for Type I and Type II Diabetics: Non- Adults <7.0% Adults <6.0% Children and Adolescents <7.5% Source: [place] [employer]. Standards of medical care in diabetes,2017. Diabetes Care.2017:40 (suppl 1):S1-S135. [place] Rodolfo Rhoades MD LAB BLOOD ORDERABLES Final Res ult [facility] [address] [place] [address] documented in this encounter Visit Diagnoses Diagnosis Low blood sugar- Primary Hypoglycemia, unspecified documented in this encounter Additional Health Concerns Assessment Noted Time PHQ-9 Depression Total Score: 0 11/16/20 24 11:05 AM EST A fall risk assessment has been complete d for the patient 03/19/2023 1:57 PM EDT A Body Mass Index follow-up plan has been documented for the patient 03/27/2025 12:36 PM EDT documented as of this encounter Care Teams Radio Electronics Technician Relationship Specialty Start Date End Date Rodolfo Rhoades MD [address] [place] [address] PCP - General Family Medicine 02/02/25 documented as of this encounter
--- OUTSIDE RECORDS SUMMARY | 2025-05-24 11:19 | XMS_ITS | Clinical Summary ---
Author Organization [facility] Address [address] [place] [address] Care Team Providers Care Drug Counselor Name Role Phone Rodolfo Rhoades MD Primary Care Provider [phone] Allergies Active Allergy Reactions Criticality Noted Date Comments Ibuprofen Hives,Unknown - Radha ent states they do not know rxn details Medium 10/08/2020 Tramadol Anaphylaxis,Unknown - Patient states they do not know rxn details High 10/08/2020 Prev tolerated hydrocodone Medications clonazePAM (KlonoPIN) 0.5 MG tablet Take 0.5-1 tablets (0.25-0.5 mg) by mouth 3 (three) times a day if needed. 2 Active cloNIDine (Catapres) 0.1 MG tablet Take 1 tablet (0.1 mg) by mouth. PRN Active warfarin (Coumadin) 1 MG tablet Take 1 tablet (1 mg total) by mouth 1 (one) time for 1 dose. Take as directed per After Visit Summary. 30 tablet 1 3 Active alendronate (Fosamax) 70 MG tabletIndication s:Low vitamin D level Take 1 tablet (70 mg) by mouth every 7 (seven) days. Take in the morning with a full glass of water, on an empty stomach, and do not take anything else by mouth or lie down for the next 30 min. 12 tablet 3 4 Active fluticasone (Flonase) 50 MCG/ACT nasal sprayIndications :Acute recurrent maxillary sinusitis Administer 1 spray into each nostril 1 (one) time each day. Shake gently. Before first use, prime pump. After use, clean tip and replace cap. 16 g 12 4 Active metoprolol succinate XL (Toprol-XL) 25 MG 24 hr tablet Take 1 tablet (25 mg) by mouth daily. 4 Active warfarin (Coumadin) 5 MG tablet Take 1 tablet (5 mg) by mouth. 4 Active buprenorphine-na loxone (Suboxone) 8-[address] 1 tablet under the tongue daily. 4 Active VITAMIN D PO Take 1 tablet by mouth 1 (one) time each day. Active tiotropium-oloda terol (Stiolto Respimat) 2.5-2.5 MCG/ACT aerosol solution inhaler Inhale 2 Inhalations 1 (one) time each day. 4 g 3 5 Active lisinopril 5 MG tablet Take 0.5 tablets (2.5 mg) by mouth daily. 4 Active ergocalciferol (Vitamin D-2) 1.25 MG (10477 UT) capsule Take 1 capsule (50,000 Units) by mouth 1 (one) time per week. 12 capsule 1 5 07/11/20 25 Active dilTIAZem CD (Cardizem CD) 120 MG 24 hr capsule Take 1 capsule (120 mg) by mouth daily. 30 capsule 5 Active albuterol 108 (90 Base) MCG/ACT inhalerIndicatio ns:Moderate persistent asthma without complication Inhale 2 puffs as needed for shortness of breath or wheezing. 1 each 2 5 Active megestrol (Megace) 40 MG/ML suspension Take 5 mL by mouth 2 times a day. Shake well just before you measure a dose. Measure with a special dose-measuring spoon or medicine cup, not with a regular table spoon. If you do not have a dose-measuring device, ask your pharmacist for one. 300 mL 5 Active Active Problems Problem Noted Date Diagnosed Date Vitamin D deficiency 07/25/2024 Nonrheumatic aortic insufficiency with aortic st enosis 11/11/2022 Anxiety 06/25/2021 Aortic insufficiency with aortic stenosis 2020 Allergic rhinitis 02/18/2021 Chronic bilateral low back pain without sciatica 01/04/2021 Essential hypertension 01/04/2021 COPD (chronic obstructive pulmonary disease) Mixed hyperlipidemia 11/16/2020 Osteopenia 11/16/2020 Migraines 11/16/2020 C7 cervical fracture 09/28/2020 Encounters Date Type Department Care Team Description 05/22/2025 Refill [facility] [address] [place] [address] Rodolfo Rhoades MD 04/19/2025 Education [facility] [address] [place] [address] Gerard Perez RN 04/14/2025 Telephone [facility] [address] [place] [address] Rodolfo Rhoades MD HCN - Patient Message 03/28/2025 Orders Only [facility] [address] [place] [address] Rodolfo Rhoades MD 03/28/2025 Results Follow-Up [facility] [address] [place] [address] Rodolfo Rhoades MD 03/27/2025 11:20 AM EDT Office Visit [facility] [address] [place] [address] Rodolfo Rhoades MD BRI (obstructive sleep apnea) (Primary Dx); Nocturnal hypoxia; Chronic fatigue; Moderate persistent asthma without complication; Pulmonary emphysema, unspecified emphysema type (CMS/HCC); Essential hypertension; Vitamin D deficiency; Chest tightness; Elevated LFTs; Low blood sugar 03/27/2025 Travel 03/16/2025 Orders Only [facility] [address] [place] [address] Rodolfo Rhoades MD Exertional shortness of breath (Primary Dx); H/O aortic valve repair 03/16/2025 Telephone [facility] [address] [place] [address] Rodolfo Rhoades MD HCN Clinical Concern/Question (Please see note...) 03/01/2025 Telephone [facility] [address] [place] [address] Rodolfo Rhoades MD HCN Clinical Concern/Question (PT IN OFFICE CURRENTLY) from Last 3 Months Immunizations Immunization Administration Dates Next Due Influenza, injectable, quadrivalent 12/17/2016 Influenza, injectable, quadr ivalent, preservative free 09/20/2020 Influenza, seasonal, injecta ble, preservative free 12/17/2016 Pfizer-BioNTTransGenRx COVID-19 Vac cine (Purple Cap) 12+ 11/27/2021,04/05/2021,03/08/2021 Family History Medical History Relation Name Comments No Known Problems Daughter Alcohol abuse Father Cirrhosis Father Cancer Maternal Grandfather Heart disease Maternal Grandmother COPD Mother Heart attack Mother Throat cancer Paternal Grandfather No Known Problems Paternal Grandmother Drug abuse Sister Autism Son Relation Name Status Comments Daughter Alive Father Maternal Grandfather Maternal Grandmother Mother Other Paternal Grandfather Paternal Grandmother Sister Alive Son Alive Social History Tobacco Use Types Packs/Day Years Used Date Smoking Tobacco: Every Day Cigarettes 1 23.5 Started: 2001 Passive Smoke Exposure: Current Smokeless Tobacco: Never Tobacco Cessation:Ready to Q uit: No; Counseling Given: Yes Alcohol Use Standard Drinks/Week Comments Not Currently [...] the money to buy more. Never true 02/21/20 25 Within the past 12 months, t [...] place to sleep or slept in a longterm (including now)? No 07/25/2024 PHQ-9 Answer Date [...] time in the past 12 m [facility], were you homeless or living in a longterm (including now)? No 01/20/2025 Safety and Environment [...] Orientation Straight 06/19/2021 8: 21 AM EDT Last Filed Vital Signs Vital Sign Reading [...] Mass Index 17.03 03/27/2025 11:27 AM EDT Plan of Treatment Upcoming Encounters Date Type Department Care Team (Late st Contact Info) Description 06/01/2025 10:20 AM EDT Office Visit [facility] [address] [place] [address] Rodolfo Rhoades MD [address] [place] [address] Health Maintenance Due Date Last Done Comments [facility]-HIV Screening 1977 [facility]-DTaP,Tdap,and Td Vaccines (1 - Tdap) 1996 [facility]-Hepatitis B Vaccines (1 of 3 - 19+ 3-dose series) 1996 [facility]-Pneumococcal Vaccine: Pediatrics (0 to 5 Years) and At-Risk Patients (6 to 49 Years) (1 of 2 - PCV) 1996 CT Colonography 2022 Colonoscopy 2022 FIT-DNA 2022 FIT 2022 FOBT 2022 Sigmoidoscopy 2022 [facility]-Colorectal Cancer Screening 2022 [id number] Vaccine ( season) 2024 11/27/2021, 04/05/2021, 03/08/2021 [facility]-/Child/Adol SDOH Screenings 01/25/2025 07/25/2024 [facility]- SDOH Screenings 07/20/2025 [facility]-Adult SDOH Screenings 07/20/2025 01/20/2025 [facility]-Influenza Vaccine (Season Ended) 2025 09/20/2020, 12/17/2016, 12/17/2016 [facility]-Depression Screening 11/16/2025 11/16/2024, 10/30 [facility]-Zoster Vaccines (1 of 2) 2027 [facility]-Hepatitis C Screening Completed 04/03/2021 [facility]-Diabetes: Hemoglobin A1C Discontinued 03/27/2025, 07/25/2024, 03/24/2022, Additional history exists HPV Vaccines Aged Out No longer eligi ble based on patient's age to complete this topic [facility]-HIB Vaccines Aged Out No longer e ligible based on patient's age to complete this topic [facility]-Hepatitis A Vaccines Aged Out No longer eligible based on patient's age to complete this topic [facility]-IPV Vaccines Aged Out No longer e ligible based on patient's age to complete this topic [facility]-Rotavirus Vaccines Aged Out No lo nger eligible based on patient's age to complete this topic Procedures Procedure Name Priority Date/Time Associated Diagnosis Comments HEMOGLOBIN A1C Add-On 03/27/2025 12:35 PM EDT Low blood sugar COMPREHENSIVE METABOLIC PANEL, PLASMA Routine 03/27/2025 12:35 PM EDT Elevated LFTs CBC WITH AUTO DIFFERENTIAL Routine 03/27/2025 12:35 PM EDT Chronic fatigue TSH Routine 03/27/2025 12:35 PM EDT Chronic fatigue TROPONIN T, HIGH SENSITIVITY, CARDIAC RISK ASSESSMENT Routine 03/27/2025 12:35 PM EDT Chest tightness VITAMIN D 25 HYDROXY Routine 03/27/2025 12:35 PM EDT Vitamin D deficiency ACUTE HEPATITIS PANEL Routine 04/03/2021 11:21 AM EDT from Last 3 Months or Most Recently Relevant to Health Maintenance Results * Vitamin D 25 Hydroxy (03/27/2025 12:35 PM EDT) Vitamin D 25 Hydroxy 41.3 20.0 - 80.0 ng/mL 03/27/2025 7:02 PM EDT [facility] Blood Venous blood specimen / Unknown Venipuncture / Unknown 03/27/2025 12:35 PM EDT 03/27/2025 12:35 PM EDT Narrative [facility] - 03/27/2025 7:02 PM EDT Testing performed on [employer] Set [employer], standardized against NIST SRM [id number]. When testing [...] MD LAB BLOOD ORDERABLES Final Res ult [facility] [address] [place] [address] * (ABNORMAL) CBC and Differential (03/27/2025 12:35 PM EDT) WBC Count 9.24 3.70 - 10.30 10*3/uL LAB HEMATOLOGY METHOD 03/27/2025 6:23 PM EDT [facility] RBC Count 4.51 3.90 - 5.20 10*6/uL LAB HEMATOLOGY METHOD 03/27/2025 6:23 PM EDT [facility] HGB 13.3 11.2 - 15.7 g/dL LAB HEMATOLOGY METHOD 03/27/2025 6:23 PM EDT [facility] HCT 41.5 34.0 - 45.0 % LAB HEMATOLOGY METHOD 03/27/2025 6:23 PM EDT [facility] Platelet Count 218 155 - 369 10*3/uL LAB HEMATOLOGY METHOD 03/27/2025 6:23 PM EDT [facility] MCV 92 79 - 98 fL LAB HEMATOLOGY METHOD 03/27/2025 6:23 PM EDT [facility] MCH 29.5 26.0 - 32.0 pg LAB HEMATOLOGY METHOD 03/27/2025 6:23 PM EDT [facility] MCHC 32.0 30.7 - 35.5 g/dL LAB HEMATOLOGY METHOD 03/27/2025 6:23 PM EDT [facility] RDW 13.9 11.5 - 14.5 % LAB HEMATOLOGY METHOD 03/27/2025 6:23 PM EDT [facility] MPV 10.8 8.8 - 12.5 fL LAB HEMATOLOGY METHOD 03/27/2025 6:23 PM EDT [facility] nRBC 0.0 <=0.0 per 100 WBCs LAB HEMATOLOGY METHOD 03/27/2025 6:23 PM EDT [facility] Differential Type Automated LAB HEMATOLOGY METHOD 03/27/2025 6:23 PM EDT [facility] Neutrophils % 55 % LAB HEMATOLOGY METHOD 03/27/2025 6:23 PM EDT [facility] Lymphocytes % 25 % LAB HEMATOLOGY METHOD 03/27/2025 6:23 PM EDT [facility] Monocytes % 9 % LAB HEMATOLOGY METHOD 03/27/2025 6:23 PM EDT [facility] Eosinophils % 10 % LAB HEMATOLOGY METHOD 03/27/2025 6:23 PM EDT [facility] Basophils % 1 % LAB HEMATOLOGY METHOD 03/27/2025 6:23 PM EDT [facility] Immature Granulocytes % 0 % LAB HEMATOLOGY METHOD 03/27/2025 6:23 PM EDT [facility] Neutrophils Absolute 5.13 1.60 - 6.10 10*3/uL LAB HEMATOLOGY METHOD 03/27/2025 6:23 PM EDT [facility] Lymphocytes Absolute 2.34 1.20 - 3.90 10*3/uL LAB HEMATOLOGY METHOD 03/27/2025 6:23 PM EDT [facility] Monocytes Absolute 0.80 0.30 - 0.90 10*3/uL LAB HEMATOLOGY METHOD 03/27/2025 6:23 PM EDT [facility] Eosinophils Absolute 0.89(H) 0.00 - 0.50 10*3/uL LAB HEMATOLOGY METHOD 03/27/2025 6:23 PM EDT [facility] Basophils Absolute 0.06 0.00 - 0.10 10*3/uL LAB HEMATOLOGY METHOD 03/27/2025 6:23 PM EDT [facility] Immature Granulocytes Absolute 0.02 0.00 - 0.06 10*3/uL LAB HEMATOLOGY METHOD 03/27/2025 6:23 PM EDT [facility] Blood Venous blood specimen / Unknown Venipuncture / Unknown 03/27/2025 12:35 PM EDT 03/27/2025 12:35 PM EDT Narrative [facility] - 03/27/2025 6:23 PM EDT Therapeutic decision making should be based on absolute values, rather than percentages. us Rodolfo Rhoades MD LAB BLOOD ORDERABLES Final Res ult Performing Organization Address City/[facility]/ZIP Co de Phone Number [facility] [address] [place] [address] * (ABNORMAL) Troponin T, High Sensitivity, Cardiac Risk Assessment (03/27/2025 12:35 PM EDT) Troponin T, High Sensitivity, 0 Hour 21(H) <14 ng/L 03/27/2025 6:43 PM EDT [facility] Blood Venous blood specimen / Unknown Venipuncture / Unknown 03/27/2025 12:35 PM EDT 03/27/2025 12:35 PM EDT Rodolfo Rhoades MD LAB BLOOD ORDERABLES Final Res ult [facility] [address] [place] [address] * Thyroid Stimulating Hormone, Plasma (03/27/2025 12:35 PM EDT) Thyroid Stimulating Hormone, Plasma 1.10 0.40 - 4.20 uIU/mL 03/27/2025 6:43 PM EDT [facility] Blood Venous blood specimen / Unknown Venipuncture / Unknown 03/27/2025 12:35 PM EDT 03/27/2025 12:35 PM EDT Narrative [facility] - 03/27/2025 6:43 PM EDT Trimester Specific Ranges TSH ( IU/mL) 1st Trimester 0.1 - 3.0 2nd Trimester 0.19 - 4.06 3rd Trimester 0.3 - 3.7 Rodolfo Rhoades MD LAB BLOOD ORDERABLES Final Res ult Performing Organization Address [facility] Co de Phone Number [facility] [address] [place] [address] * Hemoglobin A1c (03/27/2025 12:35 PM EDT) Hemoglobin A1c 5.4 <5.7 % 03/28/2025 3:54 PM EDT [facility] Blood Venous blood specimen / Unknown Venipuncture / Unknown 03/27/2025 12:35 PM EDT 03/27/2025 12:35 PM EDT Narrative [facility] - 03/28/2025 3:54 PM EDT HA1C Interpretive Data: Diagnosis of Diabetes: Diabetic > or = 6.5% Pre-diabetic 5.7 to 6.4% Non-diabetic < or = 5.6% Glycemic Targets for Type I and Type II Diabetics: Non- Adults <7.0% Adults <6.0% Children and Adolescents <7.5% Source: [place] [employer]. Standards of medical care in diabetes,2017. Diabetes Care.2017:40 (suppl 1):S1-S135. Rodolfo Rhoades MD LAB BLOOD ORDERABLES Final Res ult Performing Organization Address [facility] Co de Phone Number [facility] [address] [place] [address] * (ABNORMAL) Comprehensive Metabolic Panel, Plasma (03/27/2025 12:35 PM EDT) Glucose, Plasma 58(L) 74 - 99 mg/dL 03/27/2025 6:43 PM EDT [facility] BUN, Plasma 4(L) 7 - 21 mg/dL 03/27/2025 6:43 PM EDT [facility] Creatinine, Plasma 0.66 0.60 - 1.10 mg/dL 03/27/2025 6:43 PM EDT [facility] BUN/Creatinine Ratio 6 03/27/2025 6:43 PM EDT [facility] Sodium, Plasma 139 136 - 145 mmol/L 03/27/2025 6:43 PM EDT [facility] Potassium, Plasma 4.1 3.6 - 4.9 mmol/L 03/27/2025 6:43 PM EDT [facility] Chloride, Plasma 103 97 - 107 mmol/L 03/27/2025 6:43 PM EDT [facility] CO2, Plasma 28 22 - 29 mmol/L 03/27/2025 6:43 PM EDT [facility] Anion Gap 8 6 - 16 mmol/L 03/27/2025 6:43 PM EDT [facility] Total Calcium, Plasma 9.4 8.9 - 10.2 mg/dL 03/27/2025 6:43 PM EDT [facility] Total Protein 7.4 6.3 - 7.9 g/dL 03/27/2025 6:43 PM EDT [facility] Albumin, Plasma 4.2 3.5 - 5.2 g/dL 03/27/2025 6:43 PM EDT [facility] AST, Plasma 27 10 - 35 U/L 03/27/2025 6:43 PM EDT [facility] ALT, Plasma 34 10 - 35 U/L 03/27/2025 6:43 PM EDT [facility] Alkaline Phosphatase, Plasma 106(H) 35 - 104 U/L 03/27/2025 6:43 PM EDT [facility] Total Bilirubin, Plasma 0.3 0.2 - 1.1 mg/dL 03/27/2025 6:43 PM EDT [facility] eGFRcr 109.0 mL/min/1.7 3m*2 03/27/2025 6:43 PM EDT [facility] Comment:Reported eGFRcr in m L/min/1.73m2 is based the CKD-EPI 2020 equation that does not use a race coefficient. Blood Venous blood specimen / Unknown Venipuncture / Unknown 03/27/2025 12:35 PM EDT 03/27/2025 12:35 PM EDT us Rodolfo Rhoades MD LAB BLOOD ORDERABLES Final Res ult [facility] [address] [place] [address] * Acute Hepatitis Panel (04/03/2021 11:21 AM EDT) Hepatitis B Surf Antigen NEGATIVE Reference Value: Negative SUNQUEST Hepatitis C Antibody NEGATIVE Reference Range: Negative SUNQUEST Hepatitis A Antibody IgM NEGATIVE Reference Value: Negative SUNQUEST External Hepatitis B Core IgM (HBCM) NEGATIVE Reference Value: Negative SUNQUEST 04/03/2021 11:2 1 AM EDT 04/03/2021 1:23 PM EDT us Georgette Moore APRN LAB BLOOD ORDERABLES Final Result SUNQUEST from Last 3 Months or Most Recently Relevant to Health Maintenance Insurance NA [facility] MEDICAID Care Teams Drug Counselor Relationship Specialty Start Date End Date Rodolfo Rhoades MD [address] [place] [id number] PCP - General Family Medicine 02/02/25
--- OUTSIDE RECORDS SUMMARY | 2025-05-24 11:19 | XMS_ITS | Encounter Summary ---
Author Organization [facility] Address [address] [place], [place] [address] Care Team Providers Care Bilingual Sales Consultant Name Role Phone Georgette Moore APRN Primary Care Provider [phone] Veronica Goodwin LPN Unavailable Unavailable Margaret Ro Unavailable Unavailable Rodolfo Rhoades MD Primary Care Provider [phone] Reason for Visit * Reason Comments Med Refill Encounter Details Date Type Department Care Team (Late st Contact Info) Description 05/13/2021 Refill [facility] [address] [place] [address] Georgette Moore APRN [address] [place] [address] Social History Tobacco Use Types Packs/Day Years Used Date Smoking Tobacco: Never Assessed Comments Unknown Sex and Gender Information Value Date Recorded Sex Assigned at Female 06/19/2021 8:21 AM EDT Legal Sex Female 8:54 PM EDT Gender Identity Female 06/19/2021 8:21 AM EDT Sexual Orientation Straight 06/19/2021 8: 21 AM EDT documented as of this encounter Miscellaneous Notes * Telephone Encounter - Mikaela Delaney, PharmD - 05/13/2021 6:45 PM EDT Please follow up with clinic for additional refills. documented in this encounter Plan of Treatment Upcoming Encounters Date Type Department Care Team (Late st Contact Info) Description 06/01/2025 10:20 AM EDT Office Visit [facility] [address] [place] [address] Rodolfo Rhoades MD [address] [place] [address] documented as of this encounter Visit [...] documented as of this encounter Care Teams Bilingual Sales Consultant Relationship Specialty Start Date End Date Georgette Moore APRN [address] [place] [address] PCP - General 04/12/21 02/01/25 Rodolfo Rhoades MD [address] [place] [address] PCP - General Family Medicine 02/02/25 Veronica Goodwin LPN [employer] [place] [address] TCM Nurse 07/25/24 08/25/24 Margaret Ro Community Health Worker 07/27/24 4 documented as of this encounter
[2025-05-24 14:17] LABS: PHA INR Fingerstick 1.8 (0.9-1.1)
== END 2025-05-24 14:28 ==
LOC: ACC 11:11
PROVIDERS: PCP Family Medicine; Visit Provider Nurse Practitioner Family
DX: I35.1 Nonrheumatic aortic (valve) insufficiency (principal); I10 Essential (primary) hypertension; I65.29 Occlusion and stenosis of unspecified carotid artery; F17.200 Nicotine dependence, unspecified, uncomplicated; R40.0 Somnolence; R94.31 Abnormal electrocardiogram [ECG] [EKG]; Z95.2 Presence of prosthetic heart valve
CPT/HCPCS: 85610; 99211; G0463

== ENCOUNTER 2025-06-05 11:09 | Outpatient (CLI) | payer OTHER, SELFPAY ==
--- NOTE | 2025-06-05 11:00 | CA_ITS ---
APPROVED REPORT EXAM: Comprehensive 2D, Doppler, and color-flow Echocardiogram Auto Former Machine Operator: Wendi Loza RT(R) Ht: 5 ft 3 in Wt: 111lbs BSA: 1.50 BP: 202/111 mmHg Indications: dyspnea, history of AV replacement(mechanical). 2D Dimensions LA Volume 29.40 mL LA Volume Index 19.47 mL/m2 (M/F) 16-34 EF AP4 65.50 % GL Strain -20.2 % M-Mode Dimensions RVDd 1.75 cm (0.9-2.6) LA Diam 3.41 cm (1.9-4.0) LVDd 4.83 cm (3.5-5.7) LVDs 3.72 cm (3.5-5.7) IVSd 0.96 cm (0.6-1.1) PWd 0.87 cm (0.6-1.1) EF (Teich) 46.00% FS 23.00% EDV (Teich) 109.10 mL ESV (Teich) 58.90 mL LV Diastology E Decel Time 150 (160-240 msec) E/A Ratio 1.4 Aortic Valve ROB Index 0.76 cm2/m2 AoV Peak Chase. 331.0 (50-130 cm/s) AO Peak GR. 43.90 mmHg AO Mean GR. 21.60 (<5 mmHg) AO VTI 72.1 (18-25 cm) ROB (VTI) 1.17 (2.5-4.5 cm2) Mitral Valve MV E Max Chase. 120.0 (40-130 cm/s) MV A Velocity 85.0 (40-130 cm/s) E/A Ratio 1.41 MV PHT 44.0 ms Left Ventricle The left ventricle is normal size. The left ventricular systolic function is normal. The left ventricular ejection fraction is within the normal range. There is normal left ventricular wall thickness. There is normal LV segmental wall motion. Diastolic function is indeterminate. LVEF is 55%. Right Ventricle The right ventricle is normal size. The right ventricular systolic function is normal. Atria The left atrium is mildly dilated. The right atrium size is normal. There is no Doppler evidence of interatrial shunt. Aortic Valve s/p mechanical aortic valve replacement. The prosthesis is well-seated. Peak velocity 3.4 m/s. Mean AV gradient is 25 mmHg. Max AV gradient is 45 mmHg. DVI=0.39. Acceleration time is 93 ms. EOA is approximately 1.2 cm2. Mild central aortic regurgitation. The AI jet is eccentric. Mitral Valve The mitral valve is mildly thickened. No evidence of mitral valve stenosis. Trace mitral regurgitation. Tricuspid Valve Tricuspid valve is grossly normal in structure and function. Trace tricuspid regurgitation. There is insufficient TR jet to estimate RVSP. Pulmonic Valve The pulmonary valve is normal in structure. Trace pulmonic regurgitation. Great Vessels The aortic root is normal in size. IVC is normal in size and collapses >50% with inspiration. Pericardium There is no pericardial effusion. Other Information Study Quality: Technically Difficult Conclusion Technically difficult study due to poor acoustic windows. Normal biventricular systolic function. Mild LA dilation. s/p mechanical AVR. Mild central AI (eccentric jet) Elevated transaortic gradients, but overall not significantly changed from prior (Peak velocity 3.4 m/s. Mean AV gradient is 25 mmHg. Max AV gradient is 45 mmHg. DVI=0.39. Acceleration time is 93 ms. Effective orifice area (EOA) is approximately 1.2 cm2). The elevated transaortic parameters are possibly suggestive of patient-prosthesis mismatch (PPM) in the setting of normal acceleration time and small EOA. Clinical correlation is required. Electronically signed by : Terri Jackson MD 06/06/2025 10:24:04
--- OUTSIDE RECORDS SUMMARY | 2025-06-05 11:29 | XMS_ITS | Encounter Summary ---
Author Organization Healthcare Address [address] [place] [address] Care Team Providers Care Religion Professor Name Role Phone Georgette Moore APRN Primary Care Provider [phone] Veronica Goodwin LPN Unavailable Unavailable Margaret Ro Unavailable Unavailable Rodolfo Rhoades MD Primary Care Provider [phone] Encounter Details Date Type Department Care Team (Late st Contact Info) Description 07/22/2024 Outside Procedure External Location [address] [place] [phone] Provider, Swapnil [place] Social History Tobacco Use Types Packs/Day Years [...] in a retirement (including now)? No 07/25/2024 Safety and Environment [...] at all 07/25/2024 3:43 PM EDT Shikha Huddlesotn Patient Health Questionnaire -2 Score 0 07/25/2024 3:43 PM EDT Shikha Huddleston documented as of this encounter Plan of Treatment Upcoming Encounters Date Type Department Care Team (Late st Contact Info) Description 06/07/2025 11:40 AM EDT Office Visit [facility] [address] [place] [address] Rodolfo Rhoades MD [address] [place] [address] documented as of this encounter Procedures Procedure Name Priority Date/Time Associated Diagnosis Comments ECHO, ADULT TRANSTHORACIC COMPLETE W/ COLOR AND DOPPLER 07/22/2024 6:31 AM EDT documented in this encounter Results * Echo, Adult Transthoracic Complete w/ Color and Doppler (07/22/2024 6:31 AM EDT) Anatomical Region Laterality Modality Ultrasound 07/22/2024 6:31 AM EDT Narrative 07/22/2024 12:07 PM EDT [address] [address] Name: VERONICA ALVAREZ Exam Date: 07/22/2024 : 1975 Age 48 years Gender: F Physician: VICTORIANO REYES Facility: [facility] Facility HSV: Inpatient Exam: ECHO W [...] stenosis with a valve area of 0.85 hand trimmer (Peak grad=45mmHg, Mean grad=24mmHg, LVOT grady=2.10cm, LVOT TVI=19.3cm, Ao TVI=79.0cm). The dimensionless index is 0.24. AV peak ftlnfizb=825kr/sec. There is a Mechanical AV prosthesis. (Peak [...] Thank you for referring VERONICA ALVAREZ to [facility]. Legally authenticated by CINDY JORDAN 2024-07-22 12:04:58 Procedure Note Provider, Generic [place] - 07/22/2024 [place] [id number] Name: VERONICA ALVAREZ Exam Date: 07/22/2024 : 1975 Age 48 years Gender: F Physician: VICTORIANO REYES Facility: [facility] Facility HSV: Inpatient Exam: ECHO W [...] stenosis with a valve area of 0.85 hand trimmer (Peak grad=45mmHg, Mean grad=24mmHg, LVOT grady=2.10cm, LVOT TVI=19.3cm, Ao TVI=79.0cm). The dimensionless index is 0.24. AV peak urmrxwhp=903ni/sec. There is a Mechanical AV prosthesis. (Peak [...] Thank you for referring NELIDAVERONICA Yun to [facility]. Legally authenticated by CINDY JORDAN 2024-07-22 12:04:58 us Generic [place] Provider CV ECHO PROCEDURES F inal Result [...] documented as of this encounter Care Teams Religion Professor Relationship Specialty Start Date End Date Georgette Moore APRN [address] [place] [phone] PCP - General 04/12/21 02/01/25 Rodolfo Rhoades MD [address] [place] [address] PCP - General Family Medicine 02/02/25 Veronica Goodwin LPN VALUE-BASED [place] [address] TCM Nurse 07/25/24 08/25/24 Margaret Ro Community Health Worker 07/27/24 4 documented as of this encounter
--- OUTSIDE RECORDS SUMMARY | 2025-06-05 11:29 | XMS_ITS | Encounter Summary ---
Author Organization Healthcare Address [address] [place] [address] Care Team Providers Care Animal Health Technician Name Role Phone Georgette Moore APRN Primary Care Provider [phone] Veronica Goodwin LPN Unavailable Unavailable Margaret Ro Unavailable Unavailable Rodolfo Rhoades MD Primary Care Provider Encounter Details Date Type Department Care Team (Late st Contact Info) Description 07/21/2024 Outside Procedure External Location [address] [place] [phone] Provider, Swapnil [place] Social History Tobacco Use Types Packs/Day [...] in a halfway (including now)? No 07/25/2024 Safety and Environment [...] Description 06/07/2025 11:40 AM EDT Office Visit [facility] [address] [place] [address] Rodolfo Rhoades MD [address] [place] [address] documented as of this encounter Procedures Procedure Name Priority Date/Time Associated Diagnosis Comments XR CHEST 1 VIEW 07/21/2024 4:03 PM EDT documented in this encounter Results * XR Chest 1 View (07/21/2024 4:03 PM EDT) Anatomical Region Laterality Modality Chest Digital Radiogra phy 07/21/2024 4:03 PM EDT Narrative 07/21/2024 4:31 PM EDT [place] [address] [place] [address] Name: VERONICA ALVAREZ Exam Date: 07/21/2024 : 1975 Age 48 years Gender: F Physician: PAOLA PIZARRO Facility: [facility] Facility HSV: Outpatient Exam: CHEST PORTABLE [...] Thank you for referring VERONICA ALVAREZ to [facility]. Legally authenticated by NATALIE CULVER 2024-07-21 16:12:48 Procedure Note Provider, Swapnil [place] - 07/21/2024 [facility] [address] [place] [address] Name: VERONICA ALVAREZ Exam Date: 07/21/2024 : 1975 Age 48 years Gender: F Physician: PAOLA PIZARRO Facility: [facility] Facility HSV: Outpatient Exam: CHEST PORTABLE [...] Thank you for referring VERONICA ALVAREZ to [facility]. Legally authenticated by NATALIE CULVER 2024-07-21 16:12:48 Generic [place] Provider IMG XR PROCEDURES Fi nal Result [...] documented as of this encounter Care Teams Animal Health Technician Relationship Specialty Start Date End Date Georgette Moore APRN [address] [place] [address] PCP - General 04/12/21 02/01/25 Rodolfo Rhoades MD [address] [place] [address] PCP - General Family Medicine 02/02/25 Veronica Goodwin LPN VALUE[employer]ED [place] [address] TCM Nurse 07/25/24 08/25/24 Margaret Ro Community Health Worker 07/27/24 4 documented as of this encounter
--- OUTSIDE RECORDS SUMMARY | 2025-06-05 11:29 | XMS_ITS | Encounter Summary ---
Author Organization Healthcare Address [address] [place] [address] Care Team Providers Care Tape Folding Machine Operator Name Role Phone OscarGeorgette Jaswinder DOVE Primary Care Provider [phone] Veronica Goodwin LPN Unavailable Unavailable Margaret Ro Unavailable Unavailable Rodolfo Rhoades MD Primary Care Provider [phone] Encounter Details Date Type Department Care Team (Late Contact Info) Description 02/06/2022 Outside Procedure External Location [address] [place] [phone] Provider, [facility] Social History Tobacco Use Types Packs/Day [...] Upcoming Encounters Date Type Department Care Team ([facility] Contact Info) Description 06/07/2025 11:40 AM EDT Office Visit [facility] [place] [address] Rodolfo Rhoades MD [address] [place] [address] documented as of this encounter Procedures Procedure Name Priority Date/Time Associated Diagnosis Comments XR THORACIC SPINE 3 VIEWS 02/06/2022 2:09 PM EST documented in this encounter Results * XR Thoracic Spine 3 Views (02/06/2022 2:09 PM EST) Anatomical Region Laterality Modality Spine, T-spine Radiographic Tierra ging 02/06/2022 2:09 PM EST Narrative 02/06/2022 3:19 [place] [address] Name: VERONICA ALVAREZ Exam Date: 02/06/2022 : 1975 Age 46 Gender: F Physician: HORACE RYAN Facility: [facility] Facility HSV: Outpatient Exam: THORACIC SPINE 3V [...] Thank you for referring VERONICA ALVAREZ to [facility]. Legally authenticated by GADIEL DELEON 2022-02-06 15:08:18 Procedure Note Provider, Generic [place] - 02/06/2022 [place] [address] Name: VERONICA ALVAREZ Exam Date: 02/06/2022 : 1975 Age 46 Gender: F Physician: HORACE RYAN Facility: [facility] Facility HSV: Outpatient Exam: THORACIC SPINE 3V [...] Thank you for referring VERONICA ALVAREZ to [facility]. Legally authenticated by GADIEL DELEON 2022-02-06 15:08:18 Generic [place] Provider IMG XR PROCEDURES Fi nal Result [...] documented as of this encounter Care Teams Tape Folding Machine Operator Relationship Specialty Start Date End Date Georgette Moore APRN [address] [place] [address] PCP - General 04/12/21 02/01/25 Rodolfo Rhoades MD [address] [place] [address] PCP - General Family Medicine 02/02/25 Veronica Goodwin LPN [employer] [place] [address] TCM Nurse 07/25/24 08/25/24 Margaret Ro Community Health Worker 07/27/24 4 documented as of this encounter
--- OUTSIDE RECORDS SUMMARY | 2025-06-05 11:29 | XMS_ITS | Encounter Summary ---
Author Organization [facility] Address [address] [place] [address] Care Team Providers Care Legal Billing Coordinator Name Role Phone Georgette Moore APRN Primary Care Provider [phone] Veronica Goodwin LPN Unavailable Unavailable Margaret Ro Unavailable Unavailable Rodolfo Rhoades MD Primary Care Provider [phone] Reason for Visit * Reason Comments Med Refill Encounter Details Date Type Department Care Team (Late st Contact Info) Description 12/21/2021 Refill [facility] [address] [place] [address] Georgette Moore APRN [address] [place] [address] Chronic fatigue Social History Tobacco [...] Description 06/07/2025 11:40 AM EDT Office Visit [facility] [address] [place] [address] Rodolfo Rhoades MD [address] [place] [address] documented as of this encounter [...] documented as of this encounter Care Teams Legal Billing Coordinator Relationship Specialty Start Date End Date Georgette Moore APRN [address] [place] [address] PCP - General 04/12/21 02/01/25 Rodolfo Rhoades MD [address] [place] [address] PCP - General Family Medicine 02/02/25 Veronica Goodwin LPN VALUE-[employer]ED [place] [address] TCM Nurse 07/25/24 08/25/24 Margaret Ro Community Health Worker 07/27/24 4 documented as of this encounter
--- OUTSIDE RECORDS SUMMARY | 2025-06-05 11:29 | XMS_ITS | Encounter Summary ---
Author Organization [facility] Address [address] [place], [place] [address] Care Team Providers Care Case Maker Name Role Phone Georgette Moore APRN Primary Care Provider [phone] Veronica Goodwin LPN Unavailable Unavailable Margaret Ro Unavailable Unavailable Rodolfo Rhoades MD Primary Care Provider [phone] Reason for Visit * Reason Comments Med Refill Encounter Details Date Type Department Care Team (Late st Contact Info) Description 05/13/2021 Refill [facility] [address] [place] [address] Georgette Moore APRN [address] [place] [address] Social History Tobacco Use Types [...] Description 06/07/2025 11:40 AM EDT Office Visit [facility] [facility] [address] [place] [address] Rodolfo Rhoades MD [address] [place] [address] documented as of this encounter [...] documented as of this encounter Care Teams Case Maker Relationship Specialty Start Date End Date Georgette Moore APRN [address] [place] [address] PCP - General 04/12/21 02/01/25 Rodolfo Rhoades MD [address] [place] [address] PCP - General Family Medicine 02/02/25 Veronica Goodwin LPN VAL[employer] [place] [address] TCM Nurse 07/25/24 08/25/24 Margaret Ro Community Health Worker 07/27/24 4 documented as of this encounter
--- OUTSIDE RECORDS SUMMARY | 2025-06-05 11:29 | XMS_ITS | Encounter Summary ---
Author Organization Healthcare Address [address] [place], [place] [address] Care Team Providers Care District Leader Name Role Phone Rodolfo Rhoades MD Primary Care Provider [phone] Reason for Visit * Reason Onset Date Comments HCN Clinical Concern/Question 03/16/2025 Pl ease see note... Encounter Details Date Type Department Care Team (Late st Contact Info) Description 03/16/2025 Telephone Psychiatric & [address] [address] Rodolfo Rhoades MD [address] [place] [address] HCN Clinical Concern/Question (Please see [...] the past 12 months has th e [employer], oil, or water TierPM threatened to shut off services in your [...] send a referral for her to see trailer assembler Dr. Beltran at [facility] in [place] location. Their fax number is [phone]. Patient is asking for a call back to let her know if that can be sent. Best contact number: [phone] (mobile) Optimal time of day to reach [...] will receive notification of the communication/outcome via Trippinghart. documented in this encounter Plan of Treatment Upcoming Encounters Date Type Department Care Team (Late st Contact Info) Description 06/07/2025 11:40 AM EDT Office Visit [facility] [address] [place] [address] Rodolfo Rhoades MD [address] [place] [address] documented as of this encounter [...] documented as of this encounter Care Teams District Leader Relationship Specialty Start Date End Date Rodolfo Rhoades MD [address] [place] [address] PCP - General Family Medicine 02/02/25 documented as of this encounter
--- OUTSIDE RECORDS SUMMARY | 2025-06-05 11:29 | XMS_ITS | Encounter Summary ---
Author Organization Healthcare Address [address] [place] [address] Care Team Providers Care Children'S Court Magistrate Name Role Phone OscarGeorgette Court DOVE Primary Care Provider [phone] Veronica Goodwin LPN Unavailable Unavailable Margaret Ro Unavailable Unavailable Rodolfo Rhoades MD Primary Care Provider [phone] Encounter Details Date Type Department Care Team (Late Contact Info) Description 07/22/2021 Outside Procedure External Location [address] [place] [address] Irma Masterson MD [address] [place] [address] Social History Tobacco Use Types [...] Department Care Team (Late Contact Info) Description 06/07/2025 11:40 AM EDT Office Visit [facility] [address] [place] [address] Rodolfo Rhoades MD [address] [place] [address] documented as of this encounter Procedures Procedure Name Priority Date/Time Associated Diagnosis Comments CT CHEST LIMITED HISTORICAL 07/22/2021 1:04 PM EDT documented in this encounter Results * CT Chest Limited Historical (07/22/2021 1:04 PM EDT) Anatomical Region Laterality Modality Chest Computed Tomogra phy 07/22/2021 1:04 PM EDT Narrative 07/22/2021 3:35 PM EDT [address] [address] Name: VEROINCA ALVAREZ Exam Date: 07/22/2021 : 1975 Age 45 Gender: F Physician: Irma Masterson Facility: [facility] Facility HSV: Outpatient Exam: CT CHEST [...] Thank you for referring VERONICA ALVAREZ to [facility]. Legally authenticated by POPE FUNMILAYO Almonte 2021-07-22 15:24:50 Procedure Note Provider, Generic [place] - 07/22/2021 [place] [place] [address] Name: VERONICA ALVAREZ Exam Date: 07/22/2021 : 1975 Age 45 Gender: F Physician: Irma Masterson Facility: [facility] Facility HSV: Outpatient Exam: CT CHEST [...] Thank you for referring VERONICA ALVAREZ to [facility]. Legally authenticated by POPE FUNMILAYO Almonte 2021-07-22 [...] documented as of this encounter Care Teams Children'S Court Magistrate Relationship Specialty Start Date End Date Georgette Moore APRN [address] [place] [address] PCP - General 04/12/21 02/01/25 Rodolfo Rhoades MD [address] [place] [address] PCP - General Family Medicine 02/02/25 Veronica Goodwin LPN VAL[employer] [place] [address] TCM Nurse 07/25/24 08/25/24 Margaret Ro Community Health Worker 07/27/24 4 documented as of this encounter
--- OUTSIDE RECORDS SUMMARY | 2025-06-05 11:29 | XMS_ITS | Encounter Summary ---
Author Organization Healthcare Address [address] [place], [place] [address] Care Team Providers Care Circuit Board Drafter Name Role Phone Rodolfo Rhoades MD Primary Care Provider [phone] Reason for Visit * Reason Comments Med Refill Encounter Details Date Type Department Care Team (Late st Contact Info) Description 05/22/2025 Refill [facility] [address] [place] [address] Rodolfo Rhoades MD [address] [place] [address] Social History Tobacco Use Types [...] in the past 12 m [facility], were you homeless or living in [...] encounter Miscellaneous Notes * Telephone Encounter - Hermelinda Sanches PharmD - 05/24/2025 3:43 PM EDT 1 medication(s) has been approved per protocol. Please keep upcoming appointment for additional refills. Medications have been pended for refill atupcoming appointment. documented in this encounter Plan of Treatment Upcoming Encounters Date Type Department Care Team (Late st Contact Info) Description 06/07/2025 11:40 AM EDT Office Visit [facility] [address] [place] [address] Rodolfo Rhoades MD [address] [place] [address] documented as of this encounter [...] documented as of this encounter Care Teams Circuit Board Drafter Relationship Specialty Start Date End Date Rodolfo Rhoades MD [address] [place] [address] PCP - General Family Medicine 02/02/25 documented as of this encounter
--- OUTSIDE RECORDS SUMMARY | 2025-06-05 11:29 | XMS_ITS | Encounter Summary ---
Author Organization Healthcare Address [address] [place] [address] Care Team Providers Care Design Agent Name Role Phone OscarGeorgette Jaswinder DOVE Primary Care Provider [phone] Veronica Goodwin LPN Unavailable Unavailable Margaret Ro Unavailable Unavailable Rodolfo Rhoades MD Primary Care Provider [phone] Encounter Details Date Type Department Care Team (Late Contact Info) Description 02/06/2022 Outside Procedure External Location [address] [place] [phone] Provider, [facility] Social History Tobacco Use Types Packs/Day Years [...] Upcoming Encounters Date Type Department Care Team ([facility] Contact Info) Description 06/07/2025 11:40 AM EDT Office Visit [facility] [place] [address] Rodolfo Rhoades MD [address] [place] [address] documented as of this encounter Procedures Procedure Name Priority Date/Time Associated Diagnosis Comments XR LUMBAR SPINE 2 OR 3 VIEWS 02/06/2022 2:09 PM EST documented in this encounter Results * XR Lumbar Spine 2 or 3 Views (02/06/2022 2:09 PM EST) Anatomical Region Laterality Modality Spine, L-spine Radiographic Tierra ging 02/06/2022 2:09 PM EST Narrative 02/06/2022 3:19 [place] [address] Name: VERONICA ALVAREZ Exam Date: 02/06/2022 : 1975 Age 46 Gender: F Physician: HORACE RYAN Facility: [facility] Facility HSV: Outpatient Exam: LUMBAR SPINE 2 [...] Thank you for referring VERONICA ALVAREZ to [facility]. Legally authenticated by GADIEL DELEON 2022-02-06 15:07:32 Procedure Note Provider, Generic [place] - 02/06/2022 [place] [address] Name: VERONICA ALVAREZ Exam Date: 02/06/2022 : 1975 Age 46 Gender: F Physician: HORACE RYAN Facility: [facility] Facility HSV: Outpatient Exam: LUMBAR SPINE 2 [...] Thank you for referring JAXSONVERONICA Yun to [facility]. Legally authenticated by GADIEL DELEON 2022-02-06 15:07:32 us Generic [place] Provider IMG XR PROCEDURES Fi nal Result [...] documented as of this encounter Care Teams Design Agent Relationship Specialty Start Date End Date Georgette Moore APRN [address] [place] [address] PCP - General 04/12/21 02/01/25 Rodolfo Rhoades MD [address] [place] [address] PCP - General Family Medicine 02/02/25 Veronica Goodwin LPN VALUE-BASED TRANSFORMATION PROGRAM [place] [id number] TCM Nurse 07/25/24 08/25/24 Margaret Ro Community Health Worker 07/27/24 4 documented as of this encounter
--- OUTSIDE RECORDS SUMMARY | 2025-06-05 11:29 | XMS_ITS | Encounter Summary ---
Author Organization [facility] Address [address] [place], [place] [address] Care Team Providers Care Injection Moulding Machine Operator Name Role Phone Georgette Moore APRN Primary Care Provider [phone] Rodolfo Rhoades MD Primary Care Provider [phone] Reason for Visit * Reason Comments Med Refill Encounter Details Date Type Department Care Team (Late st Contact Info) Description 11/28/2024 Refill [facility] [address] [place] [address] Imelda Burgos APRN [address] [place] [address] COPD exacerbation (CMS/HCC); Cough with [...] encounter Miscellaneous Notes * Telephone Encounter - [place], Kasha L - 11/28/2024 12:48 PM EST Pt stated this was a mistake from the pharmacy documented in this encounter Plan of Treatment Upcoming Encounters Date Type Department Care Team (Late st Contact Info) Description 06/07/2025 11:40 AM EDT Office Visit [facility] [address] [address] Rodolfo Rhoades [...] documented as of this encounter Care Teams Injection Moulding Machine Operator Relationship Specialty Start Date End Date Georgette Moore APRN [address] [address] PCP - General 04/12/21 02/01/25 Rodolfo Rhoades MD [address] [place] [address] PCP - General Family Medicine 02/02/25 documented as of this encounter
--- OUTSIDE RECORDS SUMMARY | 2025-06-05 11:29 | XMS_ITS | Encounter Summary ---
Author Organization [facility] Address [address] [place], [place] [address] Care Team Providers Care Dinking Machine Operator Name Role Phone Rodolfo Rhoades MD Primary Care Provider [phone] Reason for Visit * Reason Onset Date Comments HCN - Patient Message 04/14/2025 Encounter Details Date Type Department Care Team (Late st Contact Info) Description 04/14/2025 Telephone [facility] [facility] [address] [place] [address] Rodolfo Rhoades MD [address] [place] [address] HCN - Patient Message Social [...] No 01/20/2025 Housing Stability Vital Sign Answer Yvoany e Recorded In the last 12 months, [...] place to sleep or slept in a fpc (including now)? No 07/25/2024 PHQ-9 Answer Date [...] time in the past 12 m [facility], were you homeless or living in a fpc (including now)? No 01/20/2025 Safety and Environment [...] and optimal time of day to reach caller:[phone] Note: Please do not reply to this message. Follow-up communication and further actions as a result of this message need to be communicated with the patient directly, if the patient is not active onMyChart. If the patient is active on MyChart, they will receive notification of the communication/outcome via Alertst. documented in this encounter Plan of Treatment Upcoming Encounters Date Type Department Care Team (Late st Contact Info) Description 06/07/2025 11:40 AM EDT Office Visit [facility] [place] [address] [place] [address] documented as of this encounter [...] documented as of this encounter Care Teams Dinking Machine Operator Relationship Specialty Start Date End Date Rodolfo Rhoades MD [address] [place] [address] PCP - General Family Medicine 02/02/25 documented as of this encounter
--- OUTSIDE RECORDS SUMMARY | 2025-06-05 11:29 | XMS_ITS | Encounter Summary ---
Author Organization Healthcare Address [address] [place] [address] Care Team Providers Care Disabilities Caregiver Name Role Phone OscarGeorgette Jaswinder DOVE Primary Care Provider [phone] Veronica Goodwin LPN Unavailable Unavailable Margaret Ro Unavailable Unavailable Rodolfo Rhoades MD Primary Care Provider [phone] Encounter Details Date Type Department Care Team (Late Contact Info) Description 02/06/2022 Outside Procedure External Location [address] [place] [id number] Provider, [facility] Social History Tobacco Use Types Packs/Day Years [...] Upcoming Encounters Date Type Department Care Team ([facility] Contact Info) Description 06/07/2025 11:40 AM EDT Office Visit [facility] [place] [address] Rodolfo Rhoades MD [address] [place] [address] documented as of this encounter Procedures Procedure Name Priority Date/Time Associated Diagnosis Comments XR CERVICAL SPINE 2 OR 3 VIEWS 02/06/2022 2:09 PM EST documented in this encounter Results * XR Cervical Spine 2 or 3 Views (02/06/2022 2:09 PM EST) Anatomical Region Laterality Modality Spine, C-spine Radiographic T[place] ging 02/06/2022 2:09 PM EST Narrative 02/06/2022 3:21 [place] [address] Name: VERONICA ALVAREZ Exam Date: 02/06/2022 : 1975 Age 46 Gender: F Physician: HORACE RYAN Facility: [facility] Facility HSV: Outpatient Exam: CERVICAL SPINE 2 [...] Thank you for referring VERONICA ALVAREZ to [facility]. Legally authenticated by GADIEL DELEON 2022-02-06 15:08:51 Procedure Note Provider, Generic [facility] - 02/06/2022 [place] [address] Name: VERONICA ALVAREZ Exam Date: 02/06/2022 : 1975 Age 46 Gender: F Physician: HORACE RYAN Facility: [facility] Facility HSV: Outpatient Exam: CERVICAL SPINE 2 [...] 02/06/2022 Thank you for referring JAXSONJaswinderADANON to [facility]. Legally authenticated by GADIEL DELEON 2022-02-06 15:08:51 us Generic [facility] Provider IMG XR PROCEDURES Fi nal Result [...] documented as of this encounter Care Teams Disabilities Caregiver Relationship Specialty Start Date End Date Georgette Moore, DERRELL [address] [place] [address] PCP - General 04/12/21 02/01/25 Rodolfo Rhoades MD [address] [place] [address] PCP - General Family Medicine 02/02/25 Veronica Goodwin LPN [employer] [place] [address] TCM Nurse 07/25/24 08/25/24 Margaret Ro Community Health Worker 07/27/24 4 documented as of this encounter
--- OUTSIDE RECORDS SUMMARY | 2025-06-05 11:29 | XMS_ITS | Clinical Summary ---
Author Organization [facility] Address [address] [place] [address] Care Team Providers Care Aircraft Maintenance Manager Name Role Phone Rodolfo Rhoades MD Primary Care Provider [phone] Allergies Active Allergy Reactions Criticality Noted Date Comments Ibuprofen Hives,Unknown - Radha ent states they do not know rxn details Medium 10/08/2020 Tramadol Anaphylaxis,Unknown - Patient states they do not know rxn details High 10/08/2020 Prev tolerated hydrocodone Medications clonazePAM (KlonoPIN) 0.5 MG tablet Take 0.5-1 tablets (0.25-0.5 mg) by mouth 3 (three) times a day if needed. 12/25/19 22 Active cloNIDine (Catapres) 0.1 MG tablet Take 1 tablet (0.1 mg) by mouth. PRN Active warfarin (Coumadin) 1 MG tablet Take 1 tablet (1 mg total) by mouth 1 (one) time for 1 dose. Take as directed per After Visit Summary. 30 tablet 1 01/07/20 23 Active alendronate (Fosamax) 70 MG tabletIndicatio ns:Low vitamin D level Take 1 tablet (70 mg) by mouth every 7 (seven) days. Take in the morning with a full glass of water, on an empty stomach, and do not take anything else by mouth or lie down for the next 30 min. 12 tablet 3 07/25/20 24 Active fluticasone (Flonase) 50 MCG/ACT nasal sprayIndication s:Acute recurrent maxillary sinusitis Administer 1 spray into each nostril 1 (one) time each day. Shake gently. Before first use, prime pump. After use, clean tip and replace cap. 16 g 12 08/17/20 24 Active metoprolol succinate XL (Toprol-XL) 25 MG 24 hr tablet Take 1 tablet (25 mg) by mouth daily. 09/28/20 24 Active warfarin (Coumadin) 5 MG tablet Take 1 tablet (5 mg) by mouth. 09/29/20 24 Active buprenorphine-n aloxone (Suboxone) 8-[address] 1 tablet under the tongue daily. 11/14/20 24 Active VITAMIN D PO Take 1 tablet by mouth 1 (one) time each day. Active lisinopril 5 MG tablet Take 0.5 tablets (2.5 mg) by mouth daily. 10/26/20 24 Active ergocalciferol (Vitamin D-2) 1.25 MG (33219 UT) capsule Take 1 capsule (50,000 Units) by mouth 1 (one) time per week. 12 capsule 1 01/24/20 25 025 Active dilTIAZem CD (Cardizem CD) 120 MG 24 hr capsule Take 1 capsule (120 mg) by mouth daily. 30 capsule 01/24/20 25 Active albuterol 108 (90 Base) MCG/ACT inhalerIndicati ons:Moderate persistent asthma without complication Inhale 2 puffs as needed for shortness of breath or wheezing. 1 each 2 02/16/20 25 Active megestrol (Megace) 40 MG/ML suspension Take 5 mL by mouth 2 times a day. Shake well just before you measure a dose. Measure with a special dose-measuring spoon or medicine cup, not with a regular table spoon. If you do not have a dose-measuring device, ask your pharmacist for one. 300 mL 03/27/20 25 Active tiotropium-olod aterol (Stiolto Respimat) 2.5-2.5 MCG/ACT aerosol solution inhaler Inhale 2 Inhalations daily. 4 g 05/24/20 25 Active tiotropium-olod aterol (Stiolto Respimat) 2.5-2.5 MCG/ACT aerosol solution inhaler Inhale 2 Inhalations 1 (one) time each day. 4 g 3 12/14/19 25 025 Discontinued Active Problems Problem Noted Date Diagnosed Date [...] Type Department Care Team Description 05/22/2025 Refill [facility] [address] [place] [address] Rodolfo Rhoades MD 04/19/2025 Education [facility] [address] [place] [address] Gerard Perez RN 04/14/2025 Telephone [facility] [address] [place] [address] Rodolfo Rhoades MD HCN - Patient Message 03/28/2025 Orders Only [facility] [address] [place] [address] Rodolfo Rhoades MD 03/28/2025 Results Follow-Up [facility] [address] [place] [address] Rodolfo Rhoades MD 03/27/2025 11:20 AM EDT Office Visit [facility] [address] [place] [address] Rodolfo Rhoades MD BRI (obstructive sleep apnea) (Primary Dx); Nocturnal hypoxia; Chronic fatigue; Moderate persistent asthma without complication; Pulmonary emphysema, unspecified emphysema type (CMS/HCC); Essential hypertension; Vitamin D deficiency; Chest tightness; Elevated LFTs; Low blood sugar 03/27/2025 Travel 03/16/2025 Orders Only [facility] [address] [place] [address] Rodolfo Rhoades MD Exertional shortness of breath (Primary Dx); H/O aortic valve repair 03/16/2025 Telephone [facility] [address] [place] [address] Rodolfo Rhoades MD HCN Clinical Concern/Question (Please see note...) from Last 3 Months Immunizations Immunization Administration Dates Next Due Influenza, injectable, quadrivalent 12/17/2016 Influenza, injectable, quadr ivalent, preservative free 09/20/2020 Influenza, seasonal, injecta ble, preservative free 12/17/2016 Pfizer-BioNTInbenta COVID-19 Vac cine (Purple Cap) 12+ 11/27/2021,04/05/2021,03/08/2021 [...] place to sleep or slept in a alf (including now)? No 07/25/2024 PHQ-9 Answer Date [...] any time in the past 12 m [facility], were you homeless or living in a alf (including now)? No 01/20/2025 Safety and Environment [...] 06/07/2025 11:40 AM EDT Office Visit [facility] [address] [place] [address] Rodolfo Rhoades MD [address] [place] [address] Health Maintenance Due Date Last [...] 2022 Sigmoidoscopy 2022 [facility]-Colorectal Cancer Screening 2022 [id number] Vaccine ( season) 2024 11/27/2021, 04/05/2021, 03/08/2021 [facility]-Infant/Child/Adol SDOH Screenings 01/25/2025 07/25/2024 [facility]- SDOH Screenings 07/20/2025 [facility]-Adult SDOH Screenings 07/20/2025 01/20/2025 [facility]-Influenza Vaccine (#1) 07/31/202509/20, 12/17/2016, 12/17/2016 [facility]-Depression Screening 11/16/2025 11/16/2024, 10/30 [...] - 80.0 ng/mL 03/27/2025 7:02 PM EDT [facility] Blood Venous blood specimen / Unknown Venipuncture / Unknown 03/27/2025 12:35 PM EDT 03/27/2025 12:35 PM EDT Narrative [facility] - 03/27/2025 7:02 PM EDT Testing performed on [employer], standardized against NIST SRM 2972. When testing [...] MD LAB BLOOD ORDERABLES Final Res ult [facility] [address] [place] [address] * (ABNORMAL) CBC and Differential (03/27/2025 12:35 PM EDT) WBC Count 9.24 3.70 - 10.30 10*3/uL LAB HEMATOLOGY METHOD 03/27/2025 6:23 PM EDT [facility] RBC Count 4.51 3.90 - 5.20 10*6/uL LAB HEMATOLOGY METHOD 03/27/2025 6:23 PM EDT [facility] HGB 13.3 11.2 - 15.7 g/dL LAB HEMATOLOGY METHOD 03/27/2025 6:23 PM EDT [facility] HCT 41.5 34.0 - 45.0 % LAB HEMATOLOGY METHOD 03/27/2025 6:23 PM EDT [facility] Platelet Count 218 155 - 369 10*3/uL LAB HEMATOLOGY METHOD 03/27/2025 6:23 PM EDT [facility] MCV 92 79 - 98 fL LAB HEMATOLOGY METHOD 03/27/2025 6:23 PM EDT [facility] MCH 29.5 26.0 - 32.0 pg LAB HEMATOLOGY METHOD 03/27/2025 6:23 PM EDT [facility] MCHC 32.0 30.7 - 35.5 g/dL LAB HEMATOLOGY METHOD 03/27/2025 6:23 PM EDT [facility] RDW 13.9 11.5 - 14.5 % LAB HEMATOLOGY METHOD 03/27/2025 6:23 PM EDT [facility] MPV 10.8 8.8 - 12.5 fL LAB HEMATOLOGY METHOD 03/27/2025 6:23 PM EDT [facility] nRBC 0.0 <=0.0 per 100 WBCs LAB HEMATOLOGY METHOD 03/27/2025 6:23 PM EDT [facility] Differential Type Automated LAB HEMATOLOGY METHOD 03/27/2025 6:23 PM EDT [facility] Neutrophils % 55 % LAB HEMATOLOGY METHOD 03/27/2025 6:23 PM EDT [facility] Lymphocytes % 25 % LAB HEMATOLOGY METHOD 03/27/2025 6:23 PM EDT [facility] Monocytes % 9 % LAB HEMATOLOGY METHOD 03/27/2025 6:23 PM EDT [facility] Eosinophils % 10 % LAB HEMATOLOGY METHOD 03/27/2025 6:23 PM EDT [facility] Basophils % 1 % LAB HEMATOLOGY METHOD 03/27/2025 6:23 PM EDT [facility] Immature Granulocytes % 0 % LAB HEMATOLOGY METHOD 03/27/2025 6:23 PM EDT [facility] Neutrophils Absolute 5.13 1.60 - 6.10 10*3/uL LAB HEMATOLOGY METHOD 03/27/2025 6:23 PM EDT [facility] Lymphocytes Absolute 2.34 1.20 - 3.90 10*3/uL LAB HEMATOLOGY METHOD 03/27/2025 6:23 PM EDT [facility] Monocytes Absolute 0.80 0.30 - 0.90 10*3/uL LAB HEMATOLOGY METHOD 03/27/2025 6:23 PM EDT [facility] Eosinophils Absolute 0.89(H) 0.00 - 0.50 10*3/uL LAB HEMATOLOGY METHOD 03/27/2025 6:23 PM EDT [facility] Basophils Absolute 0.06 0.00 - 0.10 10*3/uL LAB HEMATOLOGY METHOD 03/27/2025 6:23 PM EDT [facility] Immature Granulocytes Absolute 0.02 0.00 - 0.06 10*3/uL LAB HEMATOLOGY METHOD 03/27/2025 6:23 PM EDT [facility] Blood Venous blood specimen / Unknown Venipuncture / Unknown 03/27/2025 12:35 PM EDT 03/27/2025 12:35 PM EDT Narrative [facility] - 03/27/2025 6:23 PM EDT Therapeutic decision making should be based on absolute values, rather than percentages. Rodolfo Rhoades MD LAB BLOOD ORDERABLES Final Res ult Performing Organization Address City/[facility]/ZIP Co de Phone Number [facility] [address] [place] [address] * (ABNORMAL) Troponin T, High Sensitivity, Cardiac Risk Assessment (03/27/2025 12:35 PM EDT) Troponin T, High Sensitivity, 0 Hour 21(H) <14 ng/L 03/27/2025 6:43 PM EDT [facility] Blood Venous blood specimen / Unknown Venipuncture / Unknown 03/27/2025 12:35 PM EDT 03/27/2025 12:35 PM EDT Rodolfo Rhoades MD LAB BLOOD ORDERABLES Final Res ult [facility] [place] [address] [place] [address] * Thyroid Stimulating Hormone, Plasma (03/27/2025 12:35 PM EDT) Thyroid Stimulating Hormone, Plasma 1.10 0.40 - 4.20 uIU/mL 03/27/2025 6:43 PM EDT [facility] Blood Venous blood specimen / Unknown Venipuncture / Unknown 03/27/2025 12:35 PM EDT 03/27/2025 12:35 PM EDT Narrative [facility] - 03/27/2025 6:43 PM EDT Trimester Specific Ranges TSH ( IU/mL) 1st Trimester 0.1 - 3.0 2nd Trimester 0.19 - 4.06 3rd Trimester 0.3 - 3.7 Rodolfo Rhoades MD LAB BLOOD ORDERABLES Final Res ult Performing Organization Address [facility] Co de Phone Number [facility] [address] [place] [address] * Hemoglobin A1c (03/27/2025 12:35 PM EDT) Hemoglobin A1c 5.4 <5.7 % 03/28/2025 3:54 PM EDT [facility] Blood Venous blood specimen / Unknown Venipuncture / Unknown 03/27/2025 12:35 PM EDT 03/27/2025 12:35 PM EDT Narrative [facility] - 03/28/2025 3:54 PM EDT HA1C Interpretive Data: Diagnosis of Diabetes: Diabetic > or = 6.5% Pre-diabetic 5.7 to 6.4% Non-diabetic < or = 5.6% Glycemic Targets for Type I and Type II Diabetics: Non- Adults <7.0% Adults <6.0% Children and Adolescents <7.5% Source: [place] Diabetes Association. Standards of medical care in diabetes,2017. Diabetes Care.2017:40 (suppl 1):S1-S135. Rodolfo Rhoades MD LAB BLOOD ORDERABLES Final Res ult Performing Organization Address [facility] Co de Phone Number [facility] [address] [place] [address] * (ABNORMAL) Comprehensive Metabolic Panel, Plasma (03/27/2025 12:35 PM EDT) Glucose, Plasma 58(L) 74 - 99 mg/dL 03/27/2025 6:43 PM EDT [facility] BUN, Plasma 4(L) 7 - 21 mg/dL 03/27/2025 6:43 PM EDT [facility] Creatinine, Plasma 0.66 0.60 - 1.10 mg/dL 03/27/2025 6:43 PM EDT [facility] BUN/Creatinine Ratio 6 03/27/2025 6:43 PM EDT [facility] Sodium, Plasma 139 136 - 145 mmol/L 03/27/2025 6:43 PM EDT [facility] Potassium, Plasma 4.1 3.6 - 4.9 mmol/L 03/27/2025 6:43 PM EDT [facility] Chloride, Plasma 103 97 - 107 mmol/L 03/27/2025 6:43 PM EDT [facility] CO2, Plasma 28 22 - 29 mmol/L 03/27/2025 6:43 PM EDT [facility] Anion Gap 8 6 - 16 mmol/L 03/27/2025 6:43 PM EDT [facility] Total Calcium, Plasma 9.4 8.9 - 10.2 mg/dL 03/27/2025 6:43 PM EDT [facility] Total Protein 7.4 6.3 - 7.9 g/dL 03/27/2025 6:43 PM EDT [facility] Albumin, Plasma 4.2 3.5 - 5.2 g/dL 03/27/2025 6:43 PM EDT [facility] AST, Plasma 27 10 - 35 U/L 03/27/2025 6:43 PM EDT [facility] ALT, Plasma 34 10 - 35 U/L 03/27/2025 6:43 PM EDT [facility] Alkaline Phosphatase, Plasma 106(H) 35 - 104 U/L 03/27/2025 6:43 PM EDT [facility] Total Bilirubin, Plasma 0.3 0.2 - 1.1 mg/dL 03/27/2025 6:43 PM EDT [facility] eGFRcr 109.0 mL/min/1.7 3m*2 03/27/2025 6:43 PM EDT [facility] Comment:Reported eGFRcr in m L/min/1.73m2 is based the CKD-EPI 2020 equation that does not use a race coefficient. Blood Venous blood specimen / Unknown Venipuncture / Unknown 03/27/2025 12:35 PM EDT 03/27/2025 12:35 PM EDT us Rodolfo Rhoades MD LAB BLOOD ORDERABLES Final Res ult [facility] [address] [place] [address] * Acute Hepatitis Panel (04/03/2021 11:21 AM [...] Most Recently Relevant to Health Maintenance Insurance [facility] MEDICAID Care Teams Aircraft Maintenance Manager Relationship Specialty Start Date End Date Rodolfo Rhoades MD [address] [place] [id number] PCP - General Family Medicine 02/02/25
--- OUTSIDE RECORDS SUMMARY | 2025-06-05 11:29 | XMS_ITS | Encounter Summary ---
Author Organization Healthcare Address [address] [place] [address] Care Team Providers Care Biomedical Scientist Name Role Phone Rodolfo Rhoades MD Primary Care Provider [phone] Reason for Visit * Reason Comments Pre-Visit Review Encounter Details Date Type Department Care Team (Late st Contact Info) Description 04/19/2025 Education [facility] [address] [place] [address] Gerard Perez, RN Social History Tobacco Use Types Packs/Day [...] any time in the past 12 m [facility], were you homeless or living in a [...] Description 06/07/2025 11:40 AM EDT Office Visit [facility] [address] [place] [address] Rodolfo Rhoades MD [address] [place] [address] documented as of this encounter Visit [...] documented as of this encounter Care Teams Biomedical Scientist Relationship Specialty Start Date End Date Rodolfo Rhoades MD [address] [place] [address] PCP - General Family Medicine 02/02/25 documented as of this encounter
== END 2025-06-05 23:59 | disposition home or self-care (01) ==
LOC: RT 11:10
PROVIDERS: PCP Family Medicine; Visit Provider Internal Medicine
DX: T82.03XA Leakage of heart valve prosthesis, initial encounter (principal); I11.9 Hypertensive heart disease without heart failure; I65.29 Occlusion and stenosis of unspecified carotid artery; R93.1 Abnormal findings on diagnostic imaging of heart and coronary circulation; R94.31 Abnormal electrocardiogram [ECG] [EKG]; Z95.2 Presence of prosthetic heart valve
CPT/HCPCS: 93306

== ENCOUNTER 2025-06-21 14:19 | Outpatient (CLI) | payer OTHER, SELFPAY ==
--- OUTSIDE RECORDS SUMMARY | 2025-06-07 11:40 | XMS_ITS | Encounter Summary ---
Author Organization Healthcare Address [address] [place] [address] Care Team Providers Care Marine Biologist Name Role Phone Rodolfo Rhoades MD Primary Care Provider [phone] Reason for Visit * Reason Comments Sinus [...] Description 06/07/2025 11:40 AM EDT Office Visit [facility] [address] [place] [address] Rodolfo Rhoades MD [address] [place] [address] Chronic fatigue (Primary Dx); Pulmonary [...] any time in the past 12 m [facility], were you homeless or living [...] Care Team (Late st Contact Info) Description 07/05/2025 11:40 AM EDT Office Visit [facility] [address] [place] [address] Rodolfo Rhoades MD [address] [place] [address] Scheduled Orders Name Type Priority Associated [...] * Insulin, random (06/07/2025 1:03 PM EDT) Insulin 7.0 3.0 - 16.0 uU/mL 06/07/2025 7:08 PM EDT [facility] Blood Venous blood specimen / Unknown Venipuncture / Unknown 06/07/2025 1:03 PM EDT 06/07/2025 1:03 PM EDT Rodolfo Rhoades MD LAB BLOOD ORDERABLES Final Res ult [facility] [address] [place] [address] * C-peptide (06/07/2025 1:03 PM EDT) Pathologist [facility] C Peptide 2.43 0.81 - 5.30 ng/mL 06/07/2025 7:08 PM EDT [facility] Blood Venous blood specimen / Unknown Venipuncture / Unknown 06/07/2025 1:03 PM EDT 06/07/2025 1:03 PM EDT Rodolfo Rhoades MD LAB BLOOD ORDERABLES Final Res ult Performing Organization Address [facility]/[place] [address] * N-Terminal Probnp, Plasma (06/07/2025 1:03 PM EDT) [facility] N-Terminal, PROBNP, Plasma 394 0 - 449 pg/mL 06/07/2025 6:47 PM EDT [facility] Blood Venous blood specimen / Unknown Venipuncture / Unknown 06/07/2025 1:03 PM EDT 06/07/2025 1:03 PM EDT Rodolfo Rhoades MD LAB BLOOD ORDERABLES Final Res ult Performing Organization Address City/[facility]/[place] [address] * Vitamin D 25 Hydroxy (06/07/2025 1:03 PM EDT) Pathologist [facility] Vitamin D 25 Hydroxy 34.8 20.0 - 80.0 ng/mL 06/07/2025 7:03 PM EDT [facility] Blood Venous blood specimen / Unknown Venipuncture / Unknown 06/07/2025 1:03 PM EDT 06/07/2025 1:03 PM EDT Narrative [facility] - 06/07/2025 7:03 PM EDT Testing performed on Elizalde Prn Occupational Therapist, standardized against NIST SRM 2972. When testing [...] MD LAB BLOOD ORDERABLES Final Res ult [facility] [address] [place] [address] * Urinalysis with reflex microscopic (Culture NOT Included) (06/07/2025 1:03 PM EDT) Color, Urine Yellow LAB URINALYSIS - AUTOMATED METHOD 06/07/2025 6:35 PM EDT [facility] Clarity, Urine Clear LAB URINALYSIS - AUTOMATED METHOD 06/07/2025 6:35 PM EDT [facility] Spec [place], Urine 1.010 1.005 - 1.030 LAB URINALYSIS - AUTOMATED METHOD 06/07/2025 6:35 PM EDT [facility] pH, Urine 6.0 5.0 - 8.0 LAB URINALYSIS - AUTOMATED METHOD 06/07/2025 6:35 PM EDT [facility] Protein, Urine Negative Negative mg/dL LAB URINALYSIS - AUTOMATED METHOD 06/07/2025 6:35 PM EDT [facility] Glucose, Urine Negative Negative mg/dL LAB URINALYSIS - AUTOMATED METHOD 06/07/2025 6:35 PM EDT [facility] Ketones, Urine Negative Negative mg/dL LAB URINALYSIS - AUTOMATED METHOD 06/07/2025 6:35 PM EDT [facility] Blood, Urine Negative Negative LAB URINALYSIS - AUTOMATED METHOD 06/07/2025 6:35 PM EDT [facility] Bilirubin, Urine Negative Negative LAB URINALYSIS - AUTOMATED METHOD 06/07/2025 6:35 PM EDT [facility] Urobilinogen, Urine 0.2 0.2 to 1.0 mg/dL LAB URINALYSIS - AUTOMATED METHOD 06/07/2025 6:35 PM EDT [facility] Leukocytes, Urine Negative Negative LAB URINALYSIS - AUTOMATED METHOD 06/07/2025 6:35 PM EDT [facility] Nitrite, Urine Negative Negative LAB URINALYSIS - AUTOMATED METHOD 06/07/2025 6:35 PM EDT [facility] Urine Urine specimen obtained by clean catch procedure / Unknown Non-blood Collection / Unknown 06/07/2025 1:03 PM EDT 06/07/2025 1:03 PM EDT us Rodolfo Rhoades MD LAB URINE ORDERABLES Final Res ult [facility] [address] [place] [address] * (ABNORMAL) CBC and Differential (06/07/2025 1:03 PM EDT) WBC Count 9.28 3.70 - 10.30 10*3/uL LAB HEMATOLOGY METHOD 06/07/2025 6:25 PM EDT [facility] RBC Count 4.66 3.90 - 5.20 10*6/uL LAB HEMATOLOGY METHOD 06/07/2025 6:25 PM EDT [facility] HGB 14.2 11.2 - 15.7 g/dL LAB HEMATOLOGY METHOD 06/07/2025 6:25 PM EDT [facility] HCT 44.1 34.0 - 45.0 % LAB HEMATOLOGY METHOD 06/07/2025 6:25 PM EDT [facility] Platelet Count 255 155 - 369 10*3/uL LAB HEMATOLOGY METHOD 06/07/2025 6:25 PM EDT [facility] MCV 95 79 - 98 fL LAB HEMATOLOGY METHOD 06/07/2025 6:25 PM EDT [facility] MCH 30.5 26.0 - 32.0 pg LAB HEMATOLOGY METHOD 06/07/2025 6:25 PM EDT [facility] MCHC 32.2 30.7 - 35.5 g/dL LAB HEMATOLOGY METHOD 06/07/2025 6:25 PM EDT [facility] RDW 13.5 11.5 - 14.5 % LAB HEMATOLOGY METHOD 06/07/2025 6:25 PM EDT [facility] MPV 10.2 8.8 - 12.5 fL LAB HEMATOLOGY METHOD 06/07/2025 6:25 PM EDT [facility] nRBC 0.0 <=0.0 per 100 WBCs LAB HEMATOLOGY METHOD 06/07/2025 6:25 PM EDT [facility] Differential Type Automated LAB HEMATOLOGY METHOD 06/07/2025 6:25 PM EDT [facility] Neutrophils % 57 % LAB HEMATOLOGY METHOD 06/07/2025 6:25 PM EDT [facility] Lymphocytes % 23 % LAB HEMATOLOGY METHOD 06/07/2025 6:25 PM EDT [facility] Monocytes % 9 % LAB HEMATOLOGY METHOD 06/07/2025 6:25 PM EDT [facility] Eosinophils % 9 % LAB HEMATOLOGY METHOD 06/07/2025 6:25 PM EDT [facility] Basophils % 1 % LAB HEMATOLOGY METHOD 06/07/2025 6:25 PM EDT [facility] Immature Granulocytes % 1 % LAB HEMATOLOGY METHOD 06/07/2025 6:25 PM EDT [facility] Neutrophils Absolute 5.43 1.60 - 6.10 10*3/uL LAB HEMATOLOGY METHOD 06/07/2025 6:25 PM EDT [facility] Lymphocytes Absolute 2.09 1.20 - 3.90 10*3/uL LAB HEMATOLOGY METHOD 06/07/2025 6:25 PM EDT [facility] Monocytes Absolute 0.80 0.30 - 0.90 10*3/uL LAB HEMATOLOGY METHOD 06/07/2025 6:25 PM EDT [facility] Eosinophils Absolute 0.85(H) 0.00 - 0.50 10*3/uL LAB HEMATOLOGY METHOD 06/07/2025 6:25 PM EDT [facility] Basophils Absolute 0.05 0.00 - 0.10 10*3/uL LAB HEMATOLOGY METHOD 06/07/2025 6:25 PM EDT [facility] Immature Granulocytes Absolute 0.06 0.00 - 0.06 10*3/uL LAB HEMATOLOGY METHOD 06/07/2025 6:25 PM EDT [facility] Blood Venous blood specimen / Unknown Venipuncture / Unknown 06/07/2025 1:03 PM EDT 06/07/2025 1:03 PM EDT Narrative [facility] - 06/07/2025 6:25 PM EDT Therapeutic decision making should be based on absolute values, rather than percentages. us Rodolfo Rhoades MD LAB BLOOD ORDERABLES Final Res ult [facility] [address] [place] [address] * Comprehensive Metabolic Panel, Plasma (06/07/2025 1:03 PM EDT) Glucose, Plasma 82 74 - 99 mg/dL 06/07/2025 6:47 PM EDT [facility] BUN, Plasma 7 7 - 21 mg/dL 06/07/2025 6:47 PM EDT [facility] Creatinine, Plasma 0.74 0.60 - 1.10 mg/dL 06/07/2025 6:47 PM EDT [facility] BUN/Creatinine Ratio 9 06/07/2025 6:47 PM EDT [facility] Sodium, Plasma 137 136 - 145 mmol/L 06/07/2025 6:47 PM EDT [facility] Potassium, Plasma 4.0 3.6 - 4.9 mmol/L 06/07/2025 6:47 PM EDT [facility] Chloride, Plasma 103 97 - 107 mmol/L 06/07/2025 6:47 PM EDT [facility] CO2, Plasma 23 22 - 29 mmol/L 06/07/2025 6:47 PM EDT [facility] Anion Gap 11 6 - 16 mmol/L 06/07/2025 6:47 PM EDT [facility] Total Calcium, Plasma 9.6 8.9 - 10.2 mg/dL 06/07/2025 6:47 PM EDT [facility] Total Protein 7.8 6.3 - 7.9 g/dL 06/07/2025 6:47 PM EDT [facility] Albumin, Plasma 4.2 3.5 - 5.2 g/dL 06/07/2025 6:47 PM EDT [facility] AST, Plasma 26 10 - 35 U/L 06/07/2025 6:47 PM EDT [facility] ALT, Plasma 26 10 - 35 U/L 06/07/2025 6:47 PM EDT [facility] Alkaline Phosphatase, Plasma 104 35 - 104 U/L 06/07/2025 6:47 PM EDT [facility] Total Bilirubin, Plasma 0.3 0.2 - 1.1 mg/dL 06/07/2025 6:47 PM EDT [facility] eGFRcr 100.6 mL/min/1.7 3m*2 06/07/2025 6:47 PM EDT [facility] Comment:Reported eGFRcr in m L/min/1.73m2 is based the CKD-EPI 2020 equation that does not use a race coefficient. Blood Venous blood specimen / Unknown Venipuncture / Unknown 06/07/2025 1:03 PM EDT 06/07/2025 1:03 PM EDT us Rodolfo Rhoades MD LAB BLOOD ORDERABLES Final Res ult [facility] [address] [place] [address] * Free T4, Plasma (06/07/2025 1:03 PM EDT) Free T4, Plasma 1.4 0.8 - 1.7 ng/dL 06/07/2025 6:47 PM EDT [facility] Blood Venous blood specimen / Unknown Venipuncture / Unknown 06/07/2025 1:03 PM EDT 06/07/2025 1:03 PM EDT Narrative [facility] - 06/07/2025 6:47 PM EDT Free T4 Trimester Specific Ranges 1st Trimester 0.9 - 1.50 ng/dL 2nd Trimester 0.7 - 1.40 ng/dL 3rd Trimester 0.7 - 1.24 ng/dL us Rodolfo Rhoades MD LAB BLOOD ORDERABLES Final Res ult Performing Organization Address [facility] Co de Phone Number [facility] [address] [place] [address] * Thyroid Stimulating Hormone, Plasma (06/07/2025 1:03 PM EDT) Thyroid Stimulating Hormone, Plasma 2.73 0.40 - 4.20 uIU/mL 06/07/2025 6:47 PM EDT [facility] Blood Venous blood specimen / Unknown Venipuncture / Unknown 06/07/2025 1:03 PM EDT 06/07/2025 1:03 PM EDT Narrative [facility] - 06/07/2025 6:47 PM EDT Trimester Specific Ranges TSH ( IU/mL) 1st Trimester 0.1 - 3.0 2nd Trimester 0.19 - 4.06 3rd Trimester 0.3 - 3.7 us Rodolfo Rhoades MD LAB BLOOD ORDERABLES Final Res ult Performing Organization Address [facility] Co de Phone Number [facility] [address] [place] [address] documented in this encounter Visit Diagnoses Diagnosis [...] as of this encounter Care Teams Marine Biologist Relationship Specialty Start Date End Date Rodolfo Rhoades MD [facility] [place] [address] [place] [phone] PCP - General Family Medicine 02/02/25 documented as of this encounter
--- OUTSIDE RECORDS SUMMARY | 2025-06-21 14:23 | XMS_ITS | Clinical Summary ---
Author Organization [facility] Address [address] [place] [address] Care Team Providers Care Signing Teacher Name Role Phone Rodolfo Rhoades MD Primary Care Provider [phone] Allergies Active Allergy Reactions Criticality Noted Date [...] tablet (25 mg) by mouth daily. 09/28/20 Active warfarin (Coumadin) 5 MG tablet Take 1 tablet (5 mg) by mouth. 09/29/20 Active buprenorphine-n aloxone (Suboxone) 8-[address] 1 tablet under the tongue daily. 11/14/20 Active VITAMIN D PO Take 1 tablet by mouth 1 (one) time each day. Active lisinopril 5 MG tablet Take 0.5 tablets (2.5 mg) by mouth daily. 10/26/20 Active ergocalciferol (Vitamin D-2) 1.25 MG (20062 UT) capsule Take 1 capsule (50,000 Units) by mouth 1 (one) time per week. 12 capsule 1 01/24/20 25 2024 Active dilTIAZem CD (Cardizem CD) 120 MG 24 hr capsule Take 1 capsule (120 mg) by mouth daily. 30 capsule 01/24/20 Active Additional Information Patient not taking.Reported on 06/07/2025 albuterol 108 (90 Base) MCG/ACT inhalerIndicati ons:Moderate persistent asthma without complication Inhale 2 puffs as needed for shortness of breath or wheezing. 1 each 2 02/16/20 25 Active tiotropium-olod aterol (Stiolto Respimat) 2.5-2.5 MCG/ACT aerosol solution inhaler Inhale 2 Inhalations daily. 4 g 05/24/20 25 Active megestrol (Megace) 40 MG/ML suspension Take 5 mL by mouth 2 times a day. Shake well just before you measure a dose. Measure with a special dose-measuring spoon or medicine cup, not with a regular table spoon. If you do not have a dose-measuring device, ask your pharmacist for one. 300 mL 2 06/07/20 25 Active fluconazole (Diflucan) 150 MG tabletIndicatio ns:Fungal infection Take one tab now. Repeat in 3 days if symptoms persist. 2 tablet 06/15/20 25 Active tiotropium-olod aterol (Stiolto Respimat) 2.5-2.5 MCG/ACT aerosol solution inhaler Inhale 2 Inhalations 1 (one) time each day. 4 g 3 12/14/19 25 2024 Discontinued megestrol (Megace) 40 MG/ML suspension Take 5 mL by mouth 2 times a day. Shake well just before you measure a dose. Measure with a special dose-measuring spoon or medicine cup, not with a regular table spoon. If you do not have a dose-measuring device, ask your pharmacist for one. 300 mL 03/27/20 25 2024 Discontinued(R eorder) amoxicillin-cla vulanate (Augmentin) 875-125 MG tabletIndicatio ns:Bacterial sinusitis,Dysur ia Take 1 tablet by mouth 2 times a day for 10 days. 20 tablet 06/07/20 25 2024 Active Problems Problem Noted Date Diagnosed Date [...] Encounters Date Type Department Care Team Description 06/15/2025 Orders Only [facility] [address] [place] [address] Rodolfo Rhoades MD Fungal infection (Primary Dx) 06/15/2025 Telephone [facility] [address] [place] [address] Roodlfo Rhoades MD HCN - Patient Message 06/07/2025 11:40 AM EDT Office Visit [facility] [address] [place] [address] Rodolfo Rhoades MD Chronic fatigue (Primary Dx); Pulmonary emphysema, unspecified emphysema type (CMS/HCC); Essential hypertension; Vitamin D deficiency; Elevated LFTs; Bacterial sinusitis; Dysuria; Pitting edema; Low blood sugar 06/07/2025 Travel 05/22/2025 Refill [facility] [address] [place] [address] Rodolfo Rhoades MD 04/19/2025 Education [facility] [address] [place] [address] Gerard Perez RN 04/14/2025 Telephone [facility] [address] [place] [address] Rodolfo Rhoades MD HCN - Patient Message 03/28/2025 Orders Only [facility] [address] [place] [address] Rodolfo Rhoades MD 03/28/2025 Results Follow-Up [facility] [address] [place] [address] Rodolfo Rhoades MD 03/27/2025 11:20 AM EDT Office Visit [facility] [address] [place] [address] Rodolfo Rhoades MD BRI (obstructive sleep apnea) (Primary Dx); Nocturnal hypoxia; Chronic fatigue; Moderate persistent asthma without complication; Pulmonary emphysema, unspecified emphysema type (CMS/HCC); Essential hypertension; Vitamin D deficiency; Chest tightness; Elevated LFTs; Low blood sugar 03/27/2025 Travel from Last 3 Months Immunizations Immunization Administration Dates Next Due Influenza, injectable, quadrivalent 12/17/2016 Influenza, injectable, quadr ivalent, preservative free 09/20/2020 Influenza, seasonal, injecta ble, preservative free 12/17/2016 [employer] COVID-19 Vac cine (Purple Cap) 12+ 11/27/2021,04/05/2021,03/08/2021 [...] any time in the past 12 m [facility], were you homeless or living in a [...] Mass Index 19.17 06/07/2025 11:56 AM EDT Plan of Treatment Upcoming Encounters Date Type Department Care Team (Late st Contact Info) Description 07/05/2025 11:40 AM EDT Office Visit [facility] [address] [place] [address] Rodolfo Rhoades MD [address] [address] Health Maintenance Due Date Last Done [...] 2022 Sigmoidoscopy 2022 [facility]-Colorectal Cancer Screening 2022 [id number] Vaccine ( season) 2024 11/27/2021, 04/05/2021, 03/08/2021 [...] Procedure Name Priority Date/Time Associated Diagnosis Comments INSULIN, RANDOM Routine 06/07/2025 1:03 PM EDT Low blood sugar C-PEPTIDE Routine 06/07/2025 1:03 PM EDT Low blood sugar N-TERMINAL PROBNP, PLASMA Routine 06/07/2025 1:03 PM EDT Pitting edema VITAMIN D 25 HYDROXY Routine 06/07/2025 1:03 PM EDT Vitamin D deficiency URINALYSIS WITH REFLEX MICROSCOPIC Routine 06/07/2025 1:03 PM EDT Essential hypertension Dysuria CBC WITH AUTO DIFFERENTIAL Routine 06/07/2025 1:03 PM EDT Essential hypertension COMPREHENSIVE METABOLIC PANEL, PLASMA Routine 06/07/2025 1:03 PM EDT Essential hypertension Elevated LFTs FREE T4, PLASMA Routine 06/07/2025 1:03 PM EDT Chronic fatigue TSH Routine 06/07/2025 1:03 PM EDT Chronic fatigue HEMOGLOBIN A1C Add-On [...] Recently Relevant to Health Maintenance Results * N-Terminal Probnp, Plasma (06/07/2025 1:03 PM EDT) N-Terminal, PROBNP, Plasma 394 0 - 449 pg/mL 06/07/2025 6:47 PM EDT [facility] Blood Venous blood specimen / Unknown Venipuncture / Unknown 06/07/2025 1:03 PM EDT 06/07/2025 1:03 PM EDT Rodolfo Rhoades MD LAB BLOOD ORDERABLES Final Res ult Performing Organization Address City/[facility]/ZIP Co de Phone Number [facility] [address] [place] [address] * Insulin, random (06/07/2025 1:03 PM EDT) Pathologist [facility] Insulin 7.0 3.0 - 16.0 uU/mL 06/07/2025 7:08 PM EDT [facility] Blood Venous blood specimen / Unknown Venipuncture / Unknown 06/07/2025 1:03 PM EDT 06/07/2025 1:03 PM EDT Rodolfo Rhoades MD LAB BLOOD ORDERABLES Final Res ult [facility] [address] [place] [address] * Vitamin D 25 Hydroxy (06/07/2025 1:03 PM EDT) Only the most recent of2 resultswithin the time period is included. Vitamin D 25 Hydroxy 34.8 20.0 - 80.0 ng/mL 06/07/2025 7:03 PM EDT [facility] Blood Venous blood specimen / Unknown Venipuncture / Unknown 06/07/2025 1:03 PM EDT 06/07/2025 1:03 PM EDT Narrative [facility] - 06/07/2025 7:03 PM EDT Testing performed on [employer]izal[employer], standardized against NIST SRM 2972. When testing [...] to 80 ng/mL Possible toxicity: >100 ng/mL Rodolfo Rhoades MD LAB BLOOD ORDERABLES Final Res ult Performing Organization Address City/[facility]/ZIP Co de Phone Number [facility] [address] [place] [address] * C-peptide (06/07/2025 1:03 PM EDT) C Peptide 2.43 0.81 - 5.30 ng/mL 06/07/2025 7:08 PM EDT [facility] Blood Venous blood specimen / Unknown Venipuncture / Unknown 06/07/2025 1:03 PM EDT 06/07/2025 1:03 PM EDT Rodolfo Rhoades MD LAB BLOOD ORDERABLES Final Res ult Performing Organization Address City/[facility]/ZIP Co de Phone Number [facility] [address] [place] [address] * Urinalysis with reflex microscopic (Culture NOT Included) (06/07/2025 1:03 PM EDT) Color, Urine Yellow LAB URINALYSIS - AUTOMATED METHOD 06/07/2025 6:35 PM EDT [facility] Clarity, Urine Clear LAB URINALYSIS - AUTOMATED METHOD 06/07/2025 6:35 PM EDT [facility] Spec [place], Urine 1.010 1.005 - 1.030 LAB URINALYSIS - AUTOMATED METHOD 06/07/2025 6:35 PM EDT [facility] pH, Urine 6.0 5.0 - 8.0 LAB URINALYSIS - AUTOMATED METHOD 06/07/2025 6:35 PM EDT [facility] Protein, Urine Negative Negative mg/dL LAB URINALYSIS - AUTOMATED METHOD 06/07/2025 6:35 PM EDT [facility] Glucose, Urine Negative Negative mg/dL LAB URINALYSIS - AUTOMATED METHOD 06/07/2025 6:35 PM EDT [facility] Ketones, Urine Negative Negative mg/dL LAB URINALYSIS - AUTOMATED METHOD 06/07/2025 6:35 PM EDT [facility] Blood, Urine Negative Negative LAB URINALYSIS - AUTOMATED METHOD 06/07/2025 6:35 PM EDT [facility] Bilirubin, Urine Negative Negative LAB URINALYSIS - AUTOMATED METHOD 06/07/2025 6:35 PM EDT [facility] Urobilinogen, Urine 0.2 0.2 to 1.0 mg/dL LAB URINALYSIS - AUTOMATED METHOD 06/07/2025 6:35 PM EDT [facility] Leukocytes, Urine Negative Negative LAB URINALYSIS - AUTOMATED METHOD 06/07/2025 6:35 PM EDT [facility] Nitrite, Urine Negative Negative LAB URINALYSIS - AUTOMATED METHOD 06/07/2025 6:35 PM EDT [facility] Urine Urine specimen obtained by clean catch procedure / Unknown Non-blood Collection / Unknown 06/07/2025 1:03 PM EDT 06/07/2025 1:03 PM EDT us Rodolfo Rhoades MD LAB URINE ORDERABLES Final Res ult [facility] [address] [place] [address] * (ABNORMAL) CBC and Differential (06/07/2025 1:03 PM EDT) Only the most recent of2 resultswithin the time period is included. WBC Count 9.28 3.70 - 10.30 10*3/uL LAB HEMATOLOGY METHOD 06/07/2025 6:25 PM EDT [facility] RBC Count 4.66 3.90 - 5.20 10*6/uL LAB HEMATOLOGY METHOD 06/07/2025 6:25 PM EDT [facility] HGB 14.2 11.2 - 15.7 g/dL LAB HEMATOLOGY METHOD 06/07/2025 6:25 PM EDT [facility] HCT 44.1 34.0 - 45.0 % LAB HEMATOLOGY METHOD 06/07/2025 6:25 PM EDT [facility] Platelet Count 255 155 - 369 10*3/uL LAB HEMATOLOGY METHOD 06/07/2025 6:25 PM EDT [facility] MCV 95 79 - 98 fL LAB HEMATOLOGY METHOD 06/07/2025 6:25 PM EDT [facility] MCH 30.5 26.0 - 32.0 pg LAB HEMATOLOGY METHOD 06/07/2025 6:25 PM EDT [facility] MCHC 32.2 30.7 - 35.5 g/dL LAB HEMATOLOGY METHOD 06/07/2025 6:25 PM EDT [facility] RDW 13.5 11.5 - 14.5 % LAB HEMATOLOGY METHOD 06/07/2025 6:25 PM EDT [facility] MPV 10.2 8.8 - 12.5 fL LAB HEMATOLOGY METHOD 06/07/2025 6:25 PM EDT [facility] nRBC 0.0 <=0.0 per 100 WBCs LAB HEMATOLOGY METHOD 06/07/2025 6:25 PM EDT [facility] Differential Type Automated LAB HEMATOLOGY METHOD 06/07/2025 6:25 PM EDT [facility] Neutrophils % 57 % LAB HEMATOLOGY METHOD 06/07/2025 6:25 PM EDT [facility] Lymphocytes % 23 % LAB HEMATOLOGY METHOD 06/07/2025 6:25 PM EDT [facility] Monocytes % 9 % LAB HEMATOLOGY METHOD 06/07/2025 6:25 PM EDT [facility] Eosinophils % 9 % LAB HEMATOLOGY METHOD 06/07/2025 6:25 PM EDT [facility] Basophils % 1 % LAB HEMATOLOGY METHOD 06/07/2025 6:25 PM EDT [facility] Immature Granulocytes % 1 % LAB HEMATOLOGY METHOD 06/07/2025 6:25 PM EDT [facility] Neutrophils Absolute 5.43 1.60 - 6.10 10*3/uL LAB HEMATOLOGY METHOD 06/07/2025 6:25 PM EDT [facility] Lymphocytes Absolute 2.09 1.20 - 3.90 10*3/uL LAB HEMATOLOGY METHOD 06/07/2025 6:25 PM EDT [facility] Monocytes Absolute 0.80 0.30 - 0.90 10*3/uL LAB HEMATOLOGY METHOD 06/07/2025 6:25 PM EDT [facility] Eosinophils Absolute 0.85(H) 0.00 - 0.50 10*3/uL LAB HEMATOLOGY METHOD 06/07/2025 6:25 PM EDT [facility] Basophils Absolute 0.05 0.00 - 0.10 10*3/uL LAB HEMATOLOGY METHOD 06/07/2025 6:25 PM EDT [facility] Immature Granulocytes Absolute 0.06 0.00 - 0.06 10*3/uL LAB HEMATOLOGY METHOD 06/07/2025 6:25 PM EDT [facility] Blood Venous blood specimen / Unknown Venipuncture / Unknown 06/07/2025 1:03 PM EDT 06/07/2025 1:03 PM EDT Narrative [facility] - 06/07/2025 6:25 PM EDT Therapeutic decision making should be based on absolute values, rather than percentages. us Rodolfo Rhoades MD LAB BLOOD ORDERABLES Final Res ult [facility] [address] [place] [address] * Thyroid Stimulating Hormone, Plasma (06/07/2025 1:03 PM EDT) Only the most recent of2 resultswithin the time period is included. Thyroid Stimulating Hormone, Plasma 2.73 0.40 - 4.20 uIU/mL 06/07/2025 6:47 PM EDT [facility] Blood Venous blood specimen / Unknown Venipuncture / Unknown 06/07/2025 1:03 PM EDT 06/07/2025 1:03 PM EDT Narrative [facility] - 06/07/2025 6:47 PM EDT Trimester Specific Ranges TSH ( IU/mL) 1st Trimester 0.1 - 3.0 2nd Trimester 0.19 - 4.06 3rd Trimester 0.3 - 3.7 Rodolfo Rhoades MD LAB BLOOD ORDERABLES Final Res ult Performing Organization Address [facility] de Phone Number [facility] [address] [place] [address] * Free T4, Plasma (06/07/2025 1:03 PM EDT) Free T4, Plasma 1.4 0.8 - 1.7 ng/dL 06/07/2025 6:47 PM EDT [facility] Blood Venous blood specimen / Unknown Venipuncture / Unknown 06/07/2025 1:03 PM EDT 06/07/2025 1:03 PM EDT Narrative [facility] - 06/07/2025 6:47 PM EDT Free T4 Trimester Specific Ranges 1st Trimester 0.9 - 1.50 ng/dL 2nd Trimester 0.7 - 1.40 ng/dL 3rd Trimester 0.7 - 1.24 ng/dL Rodolfo Rhoades MD LAB BLOOD ORDERABLES Final Res ult Performing Organization Address [facility] de Phone Number [facility] [address] [place] [address] * Comprehensive Metabolic Panel, Plasma (06/07/2025 1:03 PM EDT) Only the most recent of2 resultswithin the time period is included. Glucose, Plasma 82 74 - 99 mg/dL 06/07/2025 6:47 PM EDT [facility] BUN, Plasma 7 7 - 21 mg/dL 06/07/2025 6:47 PM EDT [facility] Creatinine, Plasma 0.74 0.60 - 1.10 mg/dL 06/07/2025 6:47 PM EDT [facility] BUN/Creatinine Ratio 9 06/07/2025 6:47 PM EDT [facility] Sodium, Plasma 137 136 - 145 mmol/L 06/07/2025 6:47 PM EDT [facility] Potassium, Plasma 4.0 3.6 - 4.9 mmol/L 06/07/2025 6:47 PM EDT [facility] Chloride, Plasma 103 97 - 107 mmol/L 06/07/2025 6:47 PM EDT [facility] CO2, Plasma 23 22 - 29 mmol/L 06/07/2025 6:47 PM EDT [facility] Anion Gap 11 6 - 16 mmol/L 06/07/2025 6:47 PM EDT [facility] Total Calcium, Plasma 9.6 8.9 - 10.2 mg/dL 06/07/2025 6:47 PM EDT [facility] Total Protein 7.8 6.3 - 7.9 g/dL 06/07/2025 6:47 PM EDT [facility] Albumin, Plasma 4.2 3.5 - 5.2 g/dL 06/07/2025 6:47 PM EDT [facility] AST, Plasma 26 10 - 35 U/L 06/07/2025 6:47 PM EDT [facility] ALT, Plasma 26 10 - 35 U/L 06/07/2025 6:47 PM EDT [facility] Alkaline Phosphatase, Plasma 104 35 - 104 U/L 06/07/2025 6:47 PM EDT [facility] Total Bilirubin, Plasma 0.3 0.2 - 1.1 mg/dL 06/07/2025 6:47 PM EDT [facility] eGFRcr 100.6 mL/min/1.7 3m*2 06/07/2025 6:47 PM EDT [facility] Comment:Reported eGFRcr in m L/min/1.73m2 is based the CKD-EPI 2020 equation that does not use a race coefficient. Blood Venous blood specimen / Unknown Venipuncture / Unknown 06/07/2025 1:03 PM EDT 06/07/2025 1:03 PM EDT us Rodolfo Rhoades MD LAB BLOOD ORDERABLES Final Res ult [facility] [address] [place] [address] * (ABNORMAL) Troponin T, High Sensitivity, Cardiac Risk Assessment (03/27/2025 12:35 PM EDT) Pathologist [facility] Troponin T, High Sensitivity, 0 Hour 21(H) <14 ng/L 03/27/2025 6:43 PM EDT [facility] Blood Venous blood specimen / Unknown Venipuncture / Unknown 03/27/2025 12:35 PM EDT 03/27/2025 12:35 PM EDT Rodolfo Rhoades MD LAB BLOOD ORDERABLES Final Res ult Performing Organization Address [facility] Co de Phone Number [facility] [address] [place] [address] * Hemoglobin A1c (03/27/2025 12:35 PM EDT) [facility] Hemoglobin A1c 5.4 <5.7 % 03/28/2025 3:54 PM EDT [facility] Blood Venous blood specimen / Unknown Venipuncture / Unknown 03/27/2025 12:35 PM EDT 03/27/2025 12:35 PM EDT Narrative [facility] - 03/28/2025 3:54 PM EDT HA1C Interpretive Data: Diagnosis of Diabetes: Diabetic > or = 6.5% Pre-diabetic 5.7 to 6.4% Non-diabetic < or = 5.6% Glycemic Targets for Type I and Type II Diabetics: Non- Adults <7.0% Adults <6.0% Children and Adolescents <7.5% Source: [place] [employer]. Standards of medical care in diabetes,2017. Diabetes Care.2017:40 (suppl 1):S1-S135. us Rodolfo Rhoades MD LAB BLOOD ORDERABLES Final Res ult Performing Organization Address City/[facility] Co de Phone Number [facility] [address] [place] [address] * Acute Hepatitis Panel (04/03/2021 11:21 AM EDT) Pathologist [facility] Hepatitis B Surf Antigen NEGATIVE Reference Value: Negative [facility] Hepatitis C Antibody NEGATIVE Reference Range: Negative [facility] Hepatitis A Antibody IgM NEGATIVE Reference Value: Negative [facility] External Hepatitis B Core IgM (HBCM) NEGATIVE Reference Value: Negative [facility] 04/03/2021 11:2 1 AM EDT 04/03/2021 1:23 PM EDT Georgette Moore FILTER [employer]ER LAB BLOOD ORDERABLES Final Result Performing Organization Address City/State/[facility] Co de Phone Number [facility] from Last 3 Months or Most Recently Relevant to Health Maintenance Insurance [employer] Care Teams Signing Teacher Relationship Specialty Start Date End Date Rodolfo Rhoades MD [address] [place] [phone] PCP - General Family Medicine 02/02/25
--- OUTSIDE RECORDS SUMMARY | 2025-06-21 14:23 | XMS_ITS | Encounter Summary ---
Author Organization Healthcare Address [address] [place] [address] Care Team Providers Care French Tutor Name Role Phone Georgette Moore APRN Primary Care Provider [phone] Veronica Goodwin LPN Unavailable Unavailable Margaret Ro Unavailable Unavailable Rodolfo Rhoades MD Primary Care Provider [phone] Encounter Details Date Type Department Care Team (Late st Contact Info) Description 07/22/2024 Outside Procedure External Location [address] [place] [phone] Provider, Sw[place] Social History Tobacco Use Types Packs/Day Years Used Date Smoking Tobacco: Every Day Cigarettes 12 22.6 Started: 2001 Passive Smoke Exposure: Current Smokeless [...] in a longterm (including now)? No 07/25/2024 Safety and Environment [...] Description 07/05/2025 11:40 AM EDT Office Visit [facility] [address] [place] [address] Rodolfo Rhoades MD [address] [place] [address] documented as of this encounter Procedures Procedure Name Priority Date/Time Associated Diagnosis Comments ECHO, ADULT TRANSTHORACIC COMPLETE W/ COLOR AND DOPPLER 07/22/2024 6:31 AM EDT documented in this encounter Results * Echo, Adult Transthoracic Complete w/ Color and Doppler (07/22/2024 6:31 AM EDT) Anatomical Region Laterality Modality Ultrasound 07/22/2024 6:31 AM EDT Narrative 07/22/2024 12:07 PM EDT [address] [address] Name: VERONICA ALVAREZ Exam Date: 07/22/2024 : 1975 Age 48 years Gender: F Physician: VICTORIANO REYES Facility: [facility] Facility HSV: Inpatient Exam: ECHO W SPEC [...] stenosis with a valve area of 0.85 commercial designer (Peak grad=45mmHg, Mean grad=24mmHg, LVOT grady=2.10cm, LVOT TVI=19.3cm, Ao TVI=79.0cm). The dimensionless index is 0.24. AV peak qzeemwdd=080lj/sec. There is a Mechanical AV prosthesis. (Peak [...] Thank you for referring VERONICA ALVAREZ to [facility]. Legally authenticated by CINDY JORDAN 2024-07-22 12:04:58 Procedure Note Provider, Generic [place] - 07/22/2024 [place] [id number] Name: VERONICA ALVAREZ Exam Date: 07/22/2024 : 1975 Age 48 years Gender: F Physician: VICTORIANO REYES Facility: [facility] Facility HSV: Inpatient Exam: ECHO W SPEC [...] stenosis with a valve area of 0.85 commercial designer (Peak grad=45mmHg, Mean grad=24mmHg, LVOT grady=2.10cm, LVOT TVI=19.3cm, Ao TVI=79.0cm). The dimensionless index is 0.24. AV peak guauzwmv=703xk/sec. There is a Mechanical AV prosthesis. (Peak [...] Thank you for referring NELIDAVERONICA Yun to [facility]. Legally authenticated by CINDY JORDAN 2024-07-22 12:04:58 us Generic [place] Provider CV ECHO PROCEDURES F inal Result [...] documented as of this encounter Care Teams French Tutor Relationship Specialty Start Date End Date Georgette Moore APRN [address] [place] [phone] PCP - General 04/12/21 02/01/25 Rodolfo Rhoades MD [address] [place] [address] PCP - General Family Medicine 02/02/25 Veronica Goodwin LPN [employer] [place] [address] TCM Nurse 07/25/24 08/25/24 Margaret Ro Community Health Worker 07/27/24 4 documented as of this encounter
--- OUTSIDE RECORDS SUMMARY | 2025-06-21 14:23 | XMS_ITS | Encounter Summary ---
Author Organization Healthcare Address [address] [place], [place] [address] Care Team Providers Care Deposit Refund Clerk Name Role Phone Rodolfo Rhoades MD Primary Care Provider [phone] Reason for Visit * Reason Onset Date Comments HCN - Patient Message 06/15/2025 Encounter Details Date Type Department Care Team (Late st Contact Info) Description 06/15/2025 Telephone [facility] [address] [place] [address] Rodolfo Rhoades MD [address] [place] [address] HCN - Patient Message Social [...] place to sleep or slept in a mcc (including now)? No 07/25/2024 PHQ-9 Answer Date [...] any time in the past 12 m [facility], were you homeless or living in a m[facility] (including now)? No 01/20/2025 Safety and Environment [...] encounter Miscellaneous Notes * Telephone Encounter - Nathalie Garrett - 06/15/2025 4:42 PM EDT Pt called and informed * Telephone Encounter - Anamika Levin - 06/15/2025 2:31 PM EDT Patient Phone Message Reason for Call:she is asking for something or yeast infection to be called in since on antibiotic.Please call Best contact number and optimal time of day to reach caller: [phone] Note: Please do not reply to this message. Follow-up communication and further actions as a result of this message need to be communicated with the patient directly, if the patient is not active onMyChart. If the patient is active on MyChart, they will receive notification of the communication/outcome via [employer] documented in this encounter Plan of Treatment Upcoming Encounters Date Type Department Care Team (Late st Contact Info) Description 07/05/2025 11:40 AM EDT Office Visit [facility] [place] [address] Rodolfo Rhoades MD [address] [place] [address] documented as of this encounter [...] documented as of this encounter Care Teams Deposit Refund Clerk Relationship Specialty Start Date End Date Rodolfo Rhoades MD [address] [place] [address] PCP - General Family Medicine 02/02/25 documented as of this encounter
--- OUTSIDE RECORDS SUMMARY | 2025-06-21 14:23 | XMS_ITS | Encounter Summary ---
Author Organization Healthcare Address [address] [place] [address] Care Team Providers Care Machine Milker Name Role Phone OscarGeorgette Jaswinder DOVE Primary Care Provider [phone] Veronica Goodwin LPN Unavailable Unavailable Margaret Ro Unavailable Unavailable Rodolfo Rhoades MD Primary Care Provider [phone] Encounter Details Date Type Department Care Team (Late Contact Info) Description 02/06/2022 Outside Procedure External Location [address] [place] [phone] Provider, [facility] Social History Tobacco Use Types [...] Upcoming Encounters Date Type Department Care Team ([facility] Contact Info) Description 07/05/2025 11:40 AM EDT [facility] [place] [address] Rodolfo Rhoades MD [address] [place] [address] documented as of this encounter Procedures Procedure Name Priority Date/Time Associated Diagnosis Comments XR CERVICAL SPINE 2 OR 3 VIEWS 02/06/2022 2:09 PM EST documented in this encounter Results * XR Cervical Spine 2 or 3 Views (02/06/2022 2:09 PM EST) Anatomical Region Laterality Modality Spine, C-spine Radiographic Tierra ging 02/06/2022 2:09 PM EST Narrative 02/06/2022 3:21 [place] [address] Name: VERONICA ALVAREZ Exam Date: 02/06/2022 : 1975 Age 46 Gender: F Physician: HORACE RAYN Facility: [facility] Facility HSV: Outpatient Exam: CERVICAL SPINE [...] Thank you for referring VERONICA ALVAREZ to [facility]. Legally authenticated by GADIEL DELEON 2022-02-06 15:08:51 Procedure Note Provider, Generic [facility] - 02/06/2022 [place] [address] Name: VERONICA ALVAREZ Exam Date: 02/06/2022 : 1975 Age 46 Gender: F Physician: HORACE RYAN Facility: [facility] Facility HSV: Outpatient Exam: CERVICAL SPINE [...] 02/06/2022 Thank you for referring JAXSONJaswinderADANON to [facility]. Legally authenticated by GADIEL DELEON 2022-02-06 15:08:51 us Generic [facility] Provider IMG XR PROCEDURES Fi nal Result [...] documented as of this encounter Care Teams Machine Milker Relationship Specialty Start Date End Date Georgette Moore, DERRELL [address] [place] [address] PCP - General 04/12/21 02/01/25 Rodolfo Rhoades MD [address] [place] [address] PCP - General Family Medicine 02/02/25 Veronica Goodwin LPN [employer] [place] [address] TCM Nurse 07/25/24 08/25/24 Margaret Ro Community Health Worker 07/27/24 4 documented as of this encounter
--- OUTSIDE RECORDS SUMMARY | 2025-06-21 14:23 | XMS_ITS | Encounter Summary ---
Author Organization Healthcare Address [address] [place], [place] [address] Care Team Providers Care Leaf Fat Scraper Name Role Phone Rodolfo Rhoades MD Primary Care Provider [phone] Reason for Visit * Reason Comments Med Refill Encounter Details Date Type Department Care Team (Late st Contact Info) Description 05/22/2025 Refill [facility] [address] [place] [address] Rodolfo Rhoades MD [address] [place] [address] Social History Tobacco Use Types [...] place to sleep or slept in a [facility] (including now)? No 07/25/2024 PHQ-9 Answer Date [...] were you homeless or living in a mcfp (including now)? No 01/20/2025 Safety and Environment [...] Description 07/05/2025 11:40 AM EDT Office [facility] [address] [place] [address] Rodolfo Rhoades MD [address] [place] [address] documented as of this encounter [...] documented as of this encounter Care Teams Leaf Fat Scraper Relationship Specialty Start Date End Date Rodolfo Rhoades MD [address] [place] [address] PCP - General Family Medicine 02/02/25 documented as of this encounter
--- OUTSIDE RECORDS SUMMARY | 2025-06-21 14:23 | XMS_ITS | Encounter Summary ---
Author Organization Healthcare Address [address] [place] [address] Care Team Providers Care Web Content Coordinator Name Role Phone OscarGeorgette Court DOVE Primary Care Provider [phone] Veronica Goodwin LPN Unavailable Unavailable Margaret Ro Unavailable Unavailable Rodolfo Rhoades MD Primary Care Provider [phone] Encounter Details Date Type Department Care Team (Late Contact Info) Description 07/22/2021 Outside Procedure External Location [address] [place] [address] Irma Masterson MD [address] [place] [address] Social History Tobacco Use Types [...] Department Care Team (Late Contact Info) Description 07/05/2025 11:40 AM EDT Office Visit [facility] [address] [place] [address] Rodolfo Rhoades MD [address] [place] [address] documented as of this encounter Procedures Procedure Name Priority Date/Time Associated Diagnosis Comments CT CHEST LIMITED HISTORICAL 07/22/2021 1:04 PM EDT documented in this encounter Results * CT Chest Limited Historical (07/22/2021 1:04 PM EDT) Anatomical Region Laterality Modality Chest Computed Tomogra phy 07/22/2021 1:04 PM EDT Narrative 07/22/2021 3:35 PM EDT [address] [address] Name: VERONICA ALVAREZ Exam Date: 07/22/2021 : 1975 Age 45 Gender: F Physician: Irma Masterson Facility: [facility] Facility HSV: Outpatient Exam: CT CHEST [...] Thank you for referring VERONICA ALVAREZ to [facility]. Legally authenticated by POPE FUNMILAYO Almonte 2021-07-22 15:24:50 Procedure Note Provider, Generic [place] - 07/22/2021 [address] [place] [address] Name: VERONICA ALVAREZ Exam Date: 07/22/2021 : 1975 Age 45 Gender: F Physician: Irma Masterson Facility: [facility] Facility HSV: Outpatient Exam: CT CHEST [...] Thank you for referring VERONICA ALVAREZ to [facility]. Legally authenticated by POPE FUNMILAYO Almonte [...] documented as of this encounter Care Teams Web Content Coordinator Relationship Specialty Start Date End Date Georgette Moore APRN [address] [place] [address] PCP - General 04/12/21 02/01/25 Rodolfo Rhoades MD [address] [place] [address] PCP - General Family Medicine 02/02/25 Veronica Goodwin LPN [employer] [place] [address] TCM Nurse 07/25/24 08/25/24 Margaret Ro Community Health Worker 07/27/24 4 documented as of this encounter
--- OUTSIDE RECORDS SUMMARY | 2025-06-21 14:23 | XMS_ITS | Encounter Summary ---
Author Organization Healthcare Address [address] [place] [address] Care Team Providers Care Sole Rougher Name Role Phone Georgette Moore APRN Primary Care Provider [phone] Veronica Goodwin LPN Unavailable Unavailable Margaret Ro Unavailable Unavailable Rodolfo Rhoades MD Primary Care Provider Encounter Details Date Type Department Care Team (Late st Contact Info) Description 07/21/2024 Outside Procedure External Location [address] [place] [phone] Provider, Sw[facility] [place] Social History Tobacco Use Types Packs/Day Years [...] in a detention (including now)? No 07/25/2024 Safety and Environment [...] Description 07/05/2025 11:40 AM EDT Office Visit [facility] [address] [place] [address] Rodolfo Rhoades MD [address] [place] [address] documented as of this encounter Procedures Procedure Name Priority Date/Time Associated Diagnosis Comments XR CHEST 1 VIEW 07/21/2024 4:03 PM EDT documented in this encounter Results * XR Chest 1 View (07/21/2024 4:03 PM EDT) Anatomical Region Laterality Modality Chest Digital Radiogra phy 07/21/2024 4:03 PM EDT Narrative 07/21/2024 4:31 PM EDT [address] [place] [address] Name: VERONICA ALVAREZ Exam Date: 07/21/2024 : 1975 Age 48 years Gender: F Physician: PAOLA PIZARRO Facility: [facility] Facility HSV: Outpatient Exam: CHEST PORTABLE INDICATION: [...] Thank you for referring VERONICA ALVAREZ to [facility]. Legally authenticated by NATALIE CULVER 2024-07-21 16:12:48 Procedure Note Provider, Swapnil [place] - 07/21/2024 [facility] [address] [place] [address] Name: VERONICA ALVAREZ Exam Date: 07/21/2024 : 1975 Age 48 years Gender: F Physician: PAOLA PIZARRO Facility: [facility] Facility HSV: Outpatient Exam: CHEST PORTABLE INDICATION: [...] Thank you for referring VERONICA ALVAREZ to [facility]. Legally authenticated by NATALIE CULVER 2024-07-21 16:12:48 Generic [place] Provider IMG XR PROCEDURES Fi nal Result [...] documented as of this encounter Care Teams Sole Rougher Relationship Specialty Start Date End Date Georgette Moore APRN [address] [place] [address] PCP - General 04/12/21 02/01/25 Rodolfo Rhoades MD [address] [place] [address] PCP - General Family Medicine 02/02/25 Veronica Goodwin LPN [employer] [place] [address] TCM Nurse 07/25/24 08/25/24 Margaret Ro Community Health Worker 07/27/24 4 documented as of this encounter
--- OUTSIDE RECORDS SUMMARY | 2025-06-21 14:23 | XMS_ITS | Encounter Summary ---
Author Organization Healthcare Address [address] [place] [address] Care Team Providers Care Automatic Car Wash Attendant Name Role Phone OscarGeorgette Jaswinder DOVE Primary Care Provider [phone] Veronica Goodwin LPN Unavailable Unavailable Margaret Ro Unavailable Unavailable Rodolfo Rhoades MD Primary Care Provider [phone] Encounter Details Date Type Department Care Team (Late Contact Info) Description 02/06/2022 Outside Procedure External Location [address] [place] [phone] Provider, [facility] Social History Tobacco Use Types Packs/Day [...] Upcoming Encounters Date Type Department Care Team ([facility] Contact Info) Description 07/05/2025 11:40 AM EDT Office Visit [facility] [place] [address] Rodolfo Rhoades MD [address] [place] [address] documented as of this encounter Procedures Procedure Name Priority Date/Time Associated Diagnosis Comments XR LUMBAR SPINE 2 OR 3 VIEWS 02/06/2022 2:09 PM EST documented in this encounter Results * XR Lumbar Spine 2 or 3 Views (02/06/2022 2:09 PM EST) Anatomical Region Laterality Modality Spine, L-spine Radiographic Tierra ging 02/06/2022 2:09 PM EST Narrative 02/06/2022 3:19 [place] [address] Name: VERONICA ALVAREZ Exam Date: 02/06/2022 : 1975 Age 46 Gender: F Physician: HORACE RYAN Facility: [facility] Facility HSV: Outpatient Exam: LUMBAR SPINE 2 [...] Thank you for referring VERONICA ALVAREZ to [facility]. Legally authenticated by GADIEL DELEON 2022-02-06 15:07:32 Procedure Note Provider, Generic [place] - 02/06/2022 [place] [address] Name: VERONICA ALVAREZ Exam Date: 02/06/2022 : 1975 Age 46 Gender: F Physician: HORACE RYAN Facility: [facility] Facility HSV: Outpatient Exam: LUMBAR SPINE 2 [...] Thank you for referring JAXSONVERONICA Yun to [facility]. Legally authenticated by GADIEL DELEON 2022-02-06 15:07:32 us Generic [place] Provider IMG XR PROCEDURES Fi nal Result [...] documented as of this encounter Care Teams Automatic Car Wash Attendant Relationship Specialty Start Date End Date Georgette Moore APRN [address] [place] [address] PCP - General 04/12/21 02/01/25 Rodolfo Rhoades MD [address] [place] [address] PCP - General Family Medicine 02/02/25 Veronica Goodwin LPN VALUE-BASED TRANSFORMATION PROGRAM [place] [id number] TCM Nurse 07/25/24 08/25/24 Margaret Ro Community Health Worker 07/27/24 4 documented as of this encounter
--- OUTSIDE RECORDS SUMMARY | 2025-06-21 14:23 | XMS_ITS | Encounter Summary ---
Author Organization [facility] Address [address] [place] [address] Care Team Providers Care Early Head Start Director Name Role Phone Georgette Moore APRN Primary Care Provider [phone] Veronica Goodwin LPN Unavailable Unavailable Margaret Ro Unavailable Unavailable Rodolfo Rhoades MD Primary Care Provider [phone] Reason for Visit * Reason Comments Med Refill Encounter Details Date Type Department Care Team (Late st Contact Info) Description 12/21/2021 [facility] [address] [place] [address] Georgette Moore APRN [address] [place] [address] Chronic fatigue Social History Tobacco [...] Description 07/05/2025 11:40 AM EDT Office Visit [facility] [address] [place] [address] Rodolfo Rhoades MD [address] [place] [address] documented as of this encounter [...] documented as of this encounter Care Teams Early Head Start Director Relationship Specialty Start Date End Date Georgette Moore APRN [address] [place] [address] PCP - General 04/12/21 02/01/25 Rodolfo Rhoades MD [address] [place] [address] PCP - General Family Medicine 02/02/25 Veronica Goodwin LPN [employer] [place] [address] TCM Nurse 07/25/24 08/25/24 Margaret Ro Community Health Worker 07/27/24 4 documented as of this encounter
--- OUTSIDE RECORDS SUMMARY | 2025-06-21 14:23 | XMS_ITS | Encounter Summary ---
Author Organization Healthcare Address [address] [place], [place] [address] Care Team Providers Care Die Maker Name Role Phone Georgette Moore APRN Primary Care Provider [phone] Rodolfo Rhoades MD Primary Care Provider [phone] Reason for Visit * Reason Comments Med Refill Encounter Details Date Type Department Care Team (Late st Contact Info) Description 11/28/2024 Refill [facility] [address] [place] [address] Imelda Burgos APRN [address] [place] [address] COPD exacerbation (CMS/HCC); Cough with [...] Description 07/05/2025 11:40 AM EDT Office Visit [facility] [address] [address] Rodolfo Rhoades [...] documented as of this encounter Care Teams Die Maker Relationship Specialty Start Date End Date Georgette Moore APRN [address] [place] [address] PCP - General 04/12/21 02/01/25 Rodolfo Rhoades MD [address] [address] PCP - General Family Medicine 02/02/25 documented as of this encounter
--- OUTSIDE RECORDS SUMMARY | 2025-06-21 14:23 | XMS_ITS | Encounter Summary ---
Author Organization Healthcare Address [address] [place], [place] [address] Care Team Providers Care Refining Supervisor Name Role Phone Rodolfo Rhoades MD Primary Care Provider [phone] Reason for Visit * Reason Onset Date Comments HCN - Patient Message 04/14/2025 Encounter Details Date Type Department Care Team (Late st Contact Info) Description 04/14/2025 Telephone [facility] [address] [place] [address] Rodolfo Rhoades MD [address] [place] [address] HCN - Patient Message Social [...] place to sleep or slept in a [place] (including now)? No 07/25/2024 PHQ-9 Answer Date [...] time in the past 12 m [facility], were you homeless or living in a [place] (including now)? No 01/20/2025 Safety and Environment [...] and optimal time of day to reach caller:[phone] Note: Please do not reply to this message. Follow-up communication and further actions as a result of this message need to be communicated with the patient directly, if the patient is not active onMyChart. If the patient is active on MyChart, they will receive notification of the communication/outcome via [employer] documented in this encounter Plan of Treatment Upcoming Encounters Date Type Department Care Team (Late st Contact Info) Description 07/05/2025 11:40 AM EDT Office Visit [facility] [place] [address] Rodolfo Rhoades MD [place] [address] documented as of this encounter Visit [...] documented as of this encounter Care Teams Refining Supervisor Relationship Specialty Start Date End Date Rodolfo Rhoades MD [address] [place] [address] PCP - General Family Medicine 02/02/25 documented as of this encounter
--- OUTSIDE RECORDS SUMMARY | 2025-06-21 14:23 | XMS_ITS | Encounter Summary ---
Author Organization Healthcare Address [address] [place] [address] Care Team Providers Care Representative Government Relations Name Role Phone OscarGeorgette Jaswinder DOVE Primary Care Provider [phone] Veronica Goodwin LPN Unavailable Unavailable Margaret Ro Unavailable Unavailable Rodolfo Rhoades MD Primary Care Provider [phone] Encounter Details Date Type Department Care Team (Late Contact Info) Description 02/06/2022 Outside Procedure External Location [address] [place] [phone] Provider, [facility] Social History Tobacco Use Types Packs/Day Years [...] Upcoming Encounters Date Type Department Care Team ([facility] Contact Info) Description 07/05/2025 11:40 AM EDT Office Visit [facility] [place] [address] Rodolfo Rhoades MD [address] [place] [address] documented as of this encounter Procedures Procedure Name Priority Date/Time Associated Diagnosis Comments XR THORACIC SPINE 3 VIEWS 02/06/2022 2:09 PM EST documented in this encounter Results * XR Thoracic Spine 3 Views (02/06/2022 2:09 PM EST) Anatomical Region Laterality Modality Spine, T-spine Radiographic Tierra ging 02/06/2022 2:09 PM EST Narrative 02/06/2022 3:19 [place] [address] Name: VERONICA ALVAREZ Exam Date: 02/06/2022 : 1975 Age 46 Gender: F Physician: HORACE RYAN Facility: [facility] Facility HSV: Outpatient Exam: THORACIC SPINE [...] for referring VERONICA ALVAREZ to [facility]. Legally authenticated by GADIEL DELEON 2022-02-06 15:08:18 Procedure Note Provider, Generic [place] - 02/06/2022 [place] [address] Name: VERONICA ALVAREZ Exam Date: 02/06/2022 : 1975 Age 46 Gender: F Physician: HORACE RYAN Facility: [facility] Facility HSV: Outpatient Exam: THORACIC SPINE [...] for referring VERONICA ALVAREZ to [facility]. Legally authenticated by GADIEL DELEON 2022-02-06 15:08:18 Generic [place] Provider IMG XR PROCEDURES Fi nal Result [...] documented as of this encounter Care Teams Representative Government Relations Relationship Specialty Start Date End Date Georgette Moore APRN [address] [place] [address] PCP - General 04/12/21 02/01/25 Rodolfo Rhoades MD [address] [place] [address] PCP - General Family Medicine 02/02/25 Veronica Goodwin LPN [employer] [address] TCM Nurse 07/25/24 08/25/24 Margaret Ro Community Health Worker 07/27/24 4 documented as of this encounter
--- OUTSIDE RECORDS SUMMARY | 2025-06-21 14:23 | XMS_ITS | Encounter Summary ---
Author Organization [facility] Address [address] [place], [place] [address] Care Team Providers Care Inside Barrel Lathe Operator Name Role Phone Georgette Moore APRN Primary Care Provider [phone] Veronica Goodwin LPN Unavailable Unavailable Margaret Ro Unavailable Unavailable Rodolfo Rhoades MD Primary Care Provider [phone] Reason for Visit * Reason Comments Med Refill Encounter Details Date Type Department Care Team (Late st Contact Info) Description 05/13/2021 Refill [facility] [address] [place] [address] Georgette Moore APRN [address] [place] [address] Social History Tobacco Use Types [...] Description 07/05/2025 11:40 AM EDT Office Visit [place] [facility] [address] [place] [address] Rodolfo Rhoades MD [address] [place] [address] documented as of this encounter Visit [...] documented as of this encounter Care Teams Inside Barrel Lathe Operator Relationship Specialty Start Date End Date Georgette Moore APRN [address] [place] [address] PCP - General 04/12/21 02/01/25 Rodolfo Rhoades MD [address] [place] [address] PCP - General Family Medicine 02/02/25 Veronica Goodwin LPN [employer] [place] [address] TCM Nurse 07/25/24 08/25/24 Margaret Ro Community Health Worker 07/27/24 4 documented as of this encounter
--- OUTSIDE RECORDS SUMMARY | 2025-06-21 14:23 | XMS_ITS | Encounter Summary ---
Author Organization Healthcare Address [address] [place] [address] Care Team Providers Care Auto Brake Technician Name Role Phone Rodolfo Rhoades MD Primary Care Provider [phone] Encounter Details Date Type Department Care Team (Latest Contact Info) Description 06/07/2025 Travel Social History Tobacco Use Types Packs/Day [...] in the past 12 m [facility], were you homeless or living in [...] the past 12 months has th e [employer], gas, oil, or water company threatened to [...] Nathalie Garrett documented as of this encounter Plan of Treatment Upcoming Encounters Date Type Department Care Team (Late st Contact Info) Description 07/05/2025 11:40 AM EDT Office Visit [facility] [address] [place] [address] Rodolfo Rhoades MD [address] [place] [address] documented as of this encounter [...] documented as of this encounter Care Teams Auto Brake Technician Relationship Specialty Start Date End Date Rodolfo Rhoades MD [address] [place] [address] PCP - General Family Medicine 02/02/25 documented as of this encounter
--- OUTSIDE RECORDS SUMMARY | 2025-06-21 14:23 | XMS_ITS | Encounter Summary ---
Author Organization Healthcare Address [address] [place] [address] Care Team Providers Care Heel Brusher Name Role Phone Rodolfo Rhoades MD Primary Care Provider [phone] Encounter Details Date Type Department Care Team (Late st Contact Info) Description 06/15/2025 Orders Only [facility] [address] [place] [address] Rodolfo Rhoades MD [address] [place] [address] Fungal infection (Primary Dx) Social History Tobacco Use Types Packs/Day Years [...] Description 07/05/2025 11:40 AM EDT Office Visit [facility] [address] [place] [address] Rodolfo [place] [address] documented as of this encounter Visit Diagnoses Diagnosis Fungal infection- Primary Other and unspecified mycoses documented in this encounter Additional Health Concerns Assessment Noted Time PHQ-9 Depression Total Score: 0 11/16/20 11:05 AM EST A fall risk assessment has been complete d for the patient 03/19/2023 1:57 PM EDT A Body Mass Index follow-up plan has been documented for the patient 06/08/2025 12:14 AM EDT documented as of this encounter Care Teams Heel Brusher Relationship Specialty Start Date End Date [place] [address] PCP - General Family Medicine 02/02/25 documented as of this encounter
--- OUTSIDE RECORDS SUMMARY | 2025-06-21 14:23 | XMS_ITS | Encounter Summary ---
Author Organization Healthcare Address [address] [place] [address] Care Team Providers Care Precipitation Equipment Tender Name Role Phone Rodolfo Rhoades MD Primary Care Provider [phone] Encounter Details Date Type Department Care Team (Late st Contact Info) Description 03/28/2025 Results Follow-Up [facility] [address] [place] [address] Rodolfo Rhoades MD [address] [place] [address] Social History Tobacco Use Types [...] Description 07/05/2025 11:40 AM EDT Office Visit [facility] [address] [address] Rodolfo Rhoades MD [address] [place] [address] documented as of this encounter Results * C-peptide (06/07/2025 1:03 PM EDT) C Peptide 2.43 0.81 - 5.30 ng/mL 06/07/2025 7:08 PM EDT [facility] Blood Venous blood specimen / Unknown Venipuncture / Unknown 06/07/2025 1:03 PM EDT 06/07/2025 1:03 PM EDT us Rodolfo Rhoades MD LAB BLOOD ORDERABLES Final Res ult Performing Organization Address City/[facility]/ZIP Co de Phone Number [facility] [address] [place] [address] * Insulin, random (06/07/2025 1:03 PM EDT) Insulin 7.0 3.0 - 16.0 uU/mL 06/07/2025 7:08 PM EDT [facility] Blood Venous blood specimen / Unknown Venipuncture / Unknown 06/07/2025 1:03 PM EDT 06/07/2025 1:03 PM EDT us Rodolfo Rhoades MD LAB BLOOD ORDERABLES Final Res ult [facility] [address] [place] [address] * Hemoglobin A1c (03/27/2025 12:35 PM EDT) Hemoglobin A1c 5.4 <5.7 % 03/28/2025 3:54 PM EDT [facility] Blood Venous blood specimen / Unknown Venipuncture / Unknown 03/27/2025 12:35 PM EDT 03/27/2025 12:35 PM EDT Narrative [facility] - 03/28/2025 3:54 PM EDT HA1C Interpretive Data: Diagnosis of Diabetes: Diabetic > or = 6.5% Pre-diabetic 5.7 to 6.4% Non-diabetic < or = 5.6% Glycemic Targets for Type I and Type II Diabetics: Non- Adults <7.0% Adults <6.0% Children and Adolescents <7.5% Source: [place] [employer]. Standards of medical care in diabetes,2017. Diabetes Care.2017:40 (suppl 1):S1-S135. us Rodolfo Rhoades MD LAB BLOOD ORDERABLES Final Res ult [facility] [address] [place] [address] documented in this encounter Visit Diagnoses Diagnosis [...] documented as of this encounter Care Teams Precipitation Equipment Tender Relationship Specialty Start Date End Date Rodolfo Rhoades MD [address] [place] [phone] PCP - General Family Medicine 02/02/25 documented as of this encounter
--- OUTSIDE RECORDS SUMMARY | 2025-06-21 14:24 | XMS_ITS | Clinical Summary ---
[facility] Address [address] [place] [address] Care Team Providers Care Molded Rubber Goods Cutter Name Role Phone Rodolfo Rhoades MD Primary Care Provider Allergies Active Allergy Reactions Criticality Noted Date Comments Ibuprofen Hives 03/20/2021 Tramadol Anaphylaxis High 03/20/2021 Prev tolerated hydrocodone Medications fluticasone (VERAMYST) 27.5 MCG/SPRAY nasal spray 2 sprays into the nostril(s) as directed by provider Daily As Needed for Rhinitis or Allergies. Active alendronate-cho lecalciferol (FOSAMAX PLUS D) 70-2800 MG-UNIT per tablet Take 1 tablet by mouth Every 7 (Seven) Days. Take in the morning with a full glass of water, on an empty stomach, and do not take anything else by mouth or lie down for the next 30 min. Active clonazePAM (KlonoPIN) 0.5 MG tablet Take 0.25 mg by mouth 3 (Three) Times a Day As Needed for Anxiety. Active warfarin (COUMADIN) 5 MG tabletIndicatio ns:Mechanical valve Take 1 tablet by mouth Daily. INR checks with target INR 2-3 Indications: Presence of Mechanical Artificial Heart Valve 30 tablet 1 06/17/2021 3:48 PM EDT Active Additional Information Patient taking differently: 6.5 mgOral Daily, Indications: Mechanical valve, Reported on 03/26/2022 metoprolol tartrate (LOPRESSOR) 50 MG tablet Take 1 tablet by mouth Every 12 (Twelve) Hours. 60 tablet 11 06/17/2021 3:48 PM EDT 1 Active Additional Information Patient not taking.Reported on 08/03/2024 nitroglycerin (NITROSTAT) 0.[address] 1 tablet under the tongue Take As Directed. For chest pain 1 Active levocetirizine (XYZAL) 5 MG tablet Take 5 mg by mouth Daily As Needed. 2 Active cloNIDine (CATAPRES) 0.1 MG tablet TAKE 1 TABLET BY MOUTH EVERY 6 HOURS NEEDED FOR HIGH BLOOD PRESSURE(SYSTOLI C GREATER THAN 160) 90 tablet 5 3 Active atorvastatin (LIPITOR) 20 MG tablet Take 1 tablet by mouth Daily. 3 Active HYDROcodone-marilin taminophen (NORCO) 5-325 MG per tablet 3 tablets. 3 Active lisinopril (PRINIVIL,ZESTR IL) 10 MG tablet Take 0.5 tablets by mouth Daily. Active metoprolol tartrate (LOPRESSOR) 25 MG tablet Take 0.5 tablets by mouth Daily. 4 Active Active Problems Problem Noted Date Diagnosed Date Anxiety 06/25/2021 Aortic valve disorder s/p AVR 06/11/2021 04/02/20 Overview (06/13/2021): [facility] (04/05/2020): Small reversible ischemia in posterior lateral wall. Normal LVEF. Cardiac cath at [facility] (04/2020): Normal coronary arteries. 2+ AI ECHO (03/12/2021): Severe AI. LVEF 50%. Likely bicuspid aortic valve. Cardiac cath (04/19/2021): Normal coronary arteries. 3+ AI. AVR (06/11/2021): [facility] #[address] Cespedes Allergic rhinitis 02/18/2021 Essential hypertension 01/04/2021 Chronic bilateral low back pain without sciatica 01/04/2021 COPD (chronic obstructive pulmonary disease) Mixed hyperlipidemia 11/16/2020 Osteopenia 11/16/2020 Migraines 11/16/2020 Tobacco use Vapes non-nicotine containing substance Immunizations Immunization Administration Dates Next Due COVID-19 (Clip Interactive) Purple Cap Monovalent 04/05/20 21,03/08/2021 Fluzone >6mos 12/17/2016 Family History Medical History Relation Name Comments Liver disease Father Relation Name Status Comments Father Mother Alive Other Alive Sister Alive Social History Tobacco Use Types Packs/Day Years Used Date Smoking Tobacco: Every Day Cigarettes 0.5 24.6 Started: 2000 Smokeless Tobacco: Never Tobacco Cessation:Ready to Q uit: Not Asked; Counseling Given: Not Answered Comments:smokes approx one pack per day Alcohol Use Standard Drinks/Week Comments Never 0 (1 standard drink = 0.6 oz pur e alcohol) AUDIT-C Answer Date Recorded Q1: How often do you have a drink containing alc ohol? Never 04/01/2021 Average Number of Drinks Not on file 021 Frequency of Binge Drinking Not on file 01/2021 Abuse Screen Answer Date Recorded Unsafe at Home or Work/School Not on file Feels Threatened by Someone? Not on file 07/2023 Does Anyone Keep You from Co ntacting Others or Doint Things Outside the Home? Not on file 09/07/2023 Physical Sign of Abuse Present Not on file 1 Housing Stability Answer Date Recorded Current Living Arrangements Not on file 07/2023 Potentially Unsafe Housing Conditions Not on debbi e 09/07/2023 Family and Community Support Answer Yovany e Recorded Help with Day-to-Day Activities Not on file 09/07/2023 Lonely or Isolated Not on file 09/07/2023 Employment Answer Date Recorded Do you want help finding or keeping work or a freda b? Not on file 09/07/2023 Disabilities Answer Date Recorded Concentrating, Remembering, or Making Decisions Difficulty Not on file 09/07/2023 Doing Errands Independently Difficulty Not on fi le 09/07/2023 Education Answer Date Recorded Help with school or training? 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 Not on file Not on file Last Filed Vital Signs Vital Sign Reading Time Taken Comments Blood Pressure 135/93 08/03/2024 10:28 AM EDT Pulse 66 08/03/2024 10:28 AM EDT Temperature 36.6 C (97.8 F) 08/01/2021 12:14 PM EDT Respiratory Rate 18 08/06/2022 11:46 AM EDT Oxygen Saturation 97% 08/03/2024 10:28 AM EDT Inhaled Oxygen Concentration - - Weight 45.8 kg (101 lb) 08/03/2024 10:28 AM EDT Height 154.9 cm (5' 1 ) 08/03/2024 10:28 AM EDT Body Mass Index 19.08 08/03/2024 10:28 AM EDT Plan of Treatment Upcoming Encounters Date Type Department Care Team (Late st Contact Info) Description 07/25/2025 10:30 AM EDT Appointment [facility] [address] [place] [address] 08/09/2025 10:15 AM EDT Office Visit [facility] [address] [facility] [place] [address] Kathy Saavedra, DERRELL [address] [place] [address] Health Maintenance Due Date Last Done Comments Annual Gynecologic Pelvic an d Breast Exam 1975 Pneumococcal Vaccine 0-49 (1 of 2 - PCV) 1996 TDAP/TD VACCINES (1 - Tdap) 1996 MAMMOGRAM 2017 ANNUAL PHYSICAL 03/19/2021 HEPATITIS C SCREENING 03/19/2021 COLON CANCER SCREENING 5 YEA R SIGMOIDOSCOPY [address] COLONOGRAPHY 2022 FECAL OCCULT BLOOD TEST 2022 FIT Testing (1 year) 2022 COVID-19 Vaccine (4 - 2023-2 5 season) 2024 11/27/2021, 04/05/2021, 03/08/2021 LIPID PANEL 07/25/2025 07/25/2024, 07/01, 07/22/2024, Additional history exists INFLUENZA VACCINE 08/30/2025 09/20/2020, 12/17/2016 COLOGUARD 03/20/2027 03/20/2024 COLORECTAL CANCER SCREENING 03/20/2027 Medical Devices Implanted Type Area Stock Preparation Supervisor Device Identifier Shelf Expiration Date Model / Serial / Lot Vlv Aort Mech 19mm - [id number] - [id number] Implanted:Qty : 1 on 06/11/2021 by Taz Cespedes MD at [facility] Implant N/A: Heart [employer] [id number] 01/01/2025 [id number] / [id number] / Appl Clip Evelyn Atriclip Flx 35mm - [id number] Implanted:Qty : 1 on 06/11/2021 by Taz Cespedes MD at [facility] Implant N/A: Heart ATRICURE 02/29/2024 [id number] / / [id number] Procedures Procedure Name Priority Date/Time Associated Diagnosis Comments LIPID PANEL STAT 04/19/2021 9:30 AM EDT from Last 3 Months or Most Recently Relevant to Health Maintenance Results * Lipid Panel (04/19/2021 9:30 AM EDT) Total Cholesterol 146 0 - 200 mg/dL 04/19/2021 10:14 AM EDT [facility] Triglycerides 67 0 - 150 mg/dL 04/19/2021 10:14 AM EDT [facility] HDL Cholesterol 58 40 - 60 mg/dL 04/19/2021 10:14 AM EDT [facility] LDL Cholesterol 75 0 - 100 mg/dL 04/19/2021 10:14 AM EDT [facility] VLDL Cholesterol 13 5 - 40 mg/dL 04/19/2021 10:14 AM EDT [facility] LDL/HDL Ratio 1.29 04/19/2021 10:14 AM EDT [facility] Blood Line / Unknown 04/19/2021 9: 30 AM EDT 04/19/2021 9:40 AM EDT [facility] - 04/19/2021 10:14 AM EDT Cholesterol Reference Ranges (U.S. Department of Health and Human Services ATP III Classifications) Desirable <200 mg/dL Borderline High 200-239 mg/dL High Risk >240 mg/dL Triglyceride Reference Ranges (U.S. Department of Health and Human Services ATP III Classifications) Normal <150 mg/dL Borderline High 150-199 mg/dL High 200-499 mg/dL Very High >500 mg/dL HDL Reference Ranges (U.S. Department of Health and Human Services ATP III Classifcations) Low <40 mg/dl (major risk factor for CHD) High >60 mg/dl ('negative' risk factor for CHD) LDL Reference Ranges (U.S. Department of Health and Human Services ATP III Classifcations) Optimal <100 mg/dL Near Optimal 100-129 mg/dL Borderline High 130-159 mg/dL High 160-189 mg/dL Very High >189 mg/dL Kathy Saavedra APRN LAB BLOOD ORDERABLES Final Result [facility]
[address] [place] [address], from Last 3 Months or Most Recently Relevant to Health Maintenance Insurance Advance Directives * CPR (Attempt to Resuscitate) (Latest Code Status on File) Date Activated Date Inactivated Comments 06/11/2021 10:54 AM 06/18/2021 6:29 PM Question Answer Comments Code Status (Patient has no pulse and is not breathing): CPR (Attempt to Resuscitate) Medical Interventions (Patie nt has pulse or is breathing): Full Care Teams Molded Rubber Goods Cutter Relationship Specialty Start Date End Date Rodolfo Rhoades MD [address] [place] [address] PCP - General Family Medicine 04/05/25
[2025-06-21 15:00] LABS: PHA INR Fingerstick 3.5 (0.9-1.1)
== END 2025-06-21 15:01 ==
LOC: ACC 14:20
PROVIDERS: PCP Family Medicine; Visit Provider Nurse Practitioner Family
DX: I35.1 Nonrheumatic aortic (valve) insufficiency (principal); I10 Essential (primary) hypertension; I65.29 Occlusion and stenosis of unspecified carotid artery; F17.200 Nicotine dependence, unspecified, uncomplicated; R94.31 Abnormal electrocardiogram [ECG] [EKG]; R40.0 Somnolence; Z95.2 Presence of prosthetic heart valve
CPT/HCPCS: 85610; 99211; G0463

== ENCOUNTER 2025-07-07 11:09 | Outpatient (CLI) | payer OTHER, SELFPAY ==
--- OUTSIDE RECORDS SUMMARY | 2025-06-07 11:40 | XMS_ITS | Encounter Summary ---
Author Organization Healthcare Address [address] [place] [address] Care Team Providers Care Litigation Attorney Associate Name Role Phone Rodolfo Rhoades MD Primary Care Provider [phone] Reason for Visit * Reason Comments Sinus [...] Description 06/07/2025 11:40 AM EDT Office Visit [facility] [address] [place] [address] Rodolfo Rhoades MD [address] [place] [address] Chronic fatigue (Primary Dx); Pulmonary [...] place to sleep or slept in a jail (including now)? No 07/25/2024 PHQ-9 Answer Date [...] in the past [address] [facility], were you homeless or living in a jail (including now)? No 01/20/2025 Safety and Environment [...] Description 07/21/2025 1:20 PM EDT Office Visit [facility] [address] [place] [address] Rodolfo Rhoades MD [address] [place] [address] Scheduled Orders Name Type Priority [...] * Insulin, random (06/07/2025 1:03 PM EDT) [facility] Insulin 7.0 3.0 - 16.0 uU/mL 06/07/2025 7:08 PM EDT [facility] Blood Venous blood specimen / Unknown Venipuncture / Unknown 06/07/2025 1:03 PM EDT 06/07/2025 1:03 PM EDT Rodolfo Rhoades MD LAB BLOOD [place] [address] * C-peptide (06/07/2025 1:03 PM EDT) [facility] C Peptide 2.43 0.81 - 5.30 ng/mL 06/07/2025 7:08 PM EDT [facility] Blood Venous blood specimen / Unknown Venipuncture / Unknown 06/07/2025 1:03 PM EDT 06/07/2025 1:03 PM EDT Rodolfo Rhoades MD LAB BLOOD ORDERABLES Final Res ult Performing Organization Address City/[facility]/[place] [address] * N-Terminal Probnp, Plasma (06/07/2025 1:03 PM EDT) [facility] N-Terminal, PROBNP, Plasma 394 0 - 449 pg/mL 06/07/2025 6:47 PM EDT [facility] Blood Venous blood specimen / Unknown Venipuncture / Unknown 06/07/2025 1:03 PM EDT 06/07/2025 1:03 PM EDT Rodolfo Rhoades MD LAB BLOOD ORDERABLES Final Res ult Performing Organization Address City/[facility]/[place] [address] * Vitamin D 25 Hydroxy (06/07/2025 1:03 PM EDT) [facility] Vitamin D 25 Hydroxy 34.8 20.0 - 80.0 ng/mL 06/07/2025 7:03 PM EDT [facility] Blood Venous blood specimen / Unknown Venipuncture / Unknown 06/07/2025 1:03 PM EDT 06/07/2025 1:03 PM EDT Narrative [facility] - 06/07/2025 7:03 PM EDT Testing performed on [employer], standardized against NIST SRM [id number]. When testing [...] MD LAB BLOOD ORDERABLES Final Res ult [facility] [address] [place] [address] * Urinalysis with reflex microscopic (Culture NOT Included) (06/07/2025 1:03 PM EDT) Color, Urine Yellow LAB URINALYSIS - AUTOMATED METHOD 06/07/2025 6:35 PM EDT [facility] Clarity, Urine Clear LAB URINALYSIS - AUTOMATED METHOD 06/07/2025 6:35 PM EDT [facility] Spec [place], Urine 1.010 1.005 - 1.030 LAB URINALYSIS - AUTOMATED METHOD 06/07/2025 6:35 PM EDT [facility] pH, Urine 6.0 5.0 - 8.0 LAB URINALYSIS - AUTOMATED METHOD 06/07/2025 6:35 PM EDT [facility] Protein, Urine Negative Negative mg/dL LAB URINALYSIS - AUTOMATED METHOD 06/07/2025 6:35 PM EDT [facility] Glucose, Urine Negative Negative mg/dL LAB URINALYSIS - AUTOMATED METHOD 06/07/2025 6:35 PM EDT [facility] Ketones, Urine Negative Negative mg/dL LAB URINALYSIS - AUTOMATED METHOD 06/07/2025 6:35 PM EDT [facility] Blood, Urine Negative Negative LAB URINALYSIS - AUTOMATED METHOD 06/07/2025 6:35 PM EDT [facility] Bilirubin, Urine Negative Negative LAB URINALYSIS - AUTOMATED METHOD 06/07/2025 6:35 PM EDT [facility] Urobilinogen, Urine 0.2 0.2 to 1.0 mg/dL LAB URINALYSIS - AUTOMATED METHOD 06/07/2025 6:35 PM EDT [facility] Leukocytes, Urine Negative Negative LAB URINALYSIS - AUTOMATED METHOD 06/07/2025 6:35 PM EDT [facility] Nitrite, Urine Negative Negative LAB URINALYSIS - AUTOMATED METHOD 06/07/2025 6:35 PM EDT [facility] Urine Urine specimen obtained by clean catch procedure / Unknown Non-blood Collection / Unknown 06/07/2025 1:03 PM EDT 06/07/2025 1:03 PM EDT us Rodolfo Rhoades MD LAB URINE ORDERABLES Final Res ult [facility] [address] [place] [address] * (ABNORMAL) CBC and Differential (06/07/2025 1:03 PM EDT) WBC Count 9.28 3.70 - 10.30 10*3/uL LAB HEMATOLOGY METHOD 06/07/2025 6:25 PM EDT [facility] RBC Count 4.66 3.90 - 5.20 10*6/uL LAB HEMATOLOGY METHOD 06/07/2025 6:25 PM EDT [facility] HGB 14.2 11.2 - 15.7 g/dL LAB HEMATOLOGY METHOD 06/07/2025 6:25 PM EDT [facility] HCT 44.1 34.0 - 45.0 % LAB HEMATOLOGY METHOD 06/07/2025 6:25 PM EDT [facility] Platelet Count 255 155 - 369 10*3/uL LAB HEMATOLOGY METHOD 06/07/2025 6:25 PM EDT [facility] MCV 95 79 - 98 fL LAB HEMATOLOGY METHOD 06/07/2025 6:25 PM EDT [facility] MCH 30.5 26.0 - 32.0 pg LAB HEMATOLOGY METHOD 06/07/2025 6:25 PM EDT [facility] MCHC 32.2 30.7 - 35.5 g/dL LAB HEMATOLOGY METHOD 06/07/2025 6:25 PM EDT [facility] RDW 13.5 11.5 - 14.5 % LAB HEMATOLOGY METHOD 06/07/2025 6:25 PM EDT [facility] MPV 10.2 8.8 - 12.5 fL LAB HEMATOLOGY METHOD 06/07/2025 6:25 PM EDT [facility] nRBC 0.0 <=0.0 per 100 WBCs LAB HEMATOLOGY METHOD 06/07/2025 6:25 PM EDT [facility] Differential Type Automated LAB HEMATOLOGY METHOD 06/07/2025 6:25 PM EDT [facility] Neutrophils % 57 % LAB HEMATOLOGY METHOD 06/07/2025 6:25 PM EDT [facility] Lymphocytes % 23 % LAB HEMATOLOGY METHOD 06/07/2025 6:25 PM EDT [facility] Monocytes % 9 % LAB HEMATOLOGY METHOD 06/07/2025 6:25 PM EDT [facility] Eosinophils % 9 % LAB HEMATOLOGY METHOD 06/07/2025 6:25 PM EDT [facility] Basophils % 1 % LAB HEMATOLOGY METHOD 06/07/2025 6:25 PM EDT [facility] Immature Granulocytes % 1 % LAB HEMATOLOGY METHOD 06/07/2025 6:25 PM EDT [facility] Neutrophils Absolute 5.43 1.60 - 6.10 10*3/uL LAB HEMATOLOGY METHOD 06/07/2025 6:25 PM EDT [facility] Lymphocytes Absolute 2.09 1.20 - 3.90 10*3/uL LAB HEMATOLOGY METHOD 06/07/2025 6:25 PM EDT [facility] Monocytes Absolute 0.80 0.30 - 0.90 10*3/uL LAB HEMATOLOGY METHOD 06/07/2025 6:25 PM EDT [facility] Eosinophils Absolute 0.85(H) 0.00 - 0.50 10*3/uL LAB HEMATOLOGY METHOD 06/07/2025 6:25 PM EDT [facility] Basophils Absolute 0.05 0.00 - 0.10 10*3/uL LAB HEMATOLOGY METHOD 06/07/2025 6:25 PM EDT [facility] Immature Granulocytes Absolute 0.06 0.00 - 0.06 10*3/uL LAB HEMATOLOGY METHOD 06/07/2025 6:25 PM EDT [facility] Blood Venous blood specimen / Unknown Venipuncture / Unknown 06/07/2025 1:03 PM EDT 06/07/2025 1:03 PM EDT Narrative [facility] - 06/07/2025 6:25 PM EDT Therapeutic decision making should be based on absolute values, rather than percentages. us Rodolfo Rhoades MD LAB BLOOD ORDERABLES Final Res ult [facility] [address] [place] [address] * Comprehensive Metabolic Panel, Plasma (06/07/2025 1:03 PM EDT) Glucose, Plasma 82 74 - 99 mg/dL 06/07/2025 6:47 PM EDT [facility] BUN, Plasma 7 7 - 21 mg/dL 06/07/2025 6:47 PM EDT [facility] Creatinine, Plasma 0.74 0.60 - 1.10 mg/dL 06/07/2025 6:47 PM EDT [facility] BUN/Creatinine Ratio 9 06/07/2025 6:47 PM EDT [facility] Sodium, Plasma 137 136 - 145 mmol/L 06/07/2025 6:47 PM EDT [facility] Potassium, Plasma 4.0 3.6 - 4.9 mmol/L 06/07/2025 6:47 PM EDT [facility] Chloride, Plasma 103 97 - 107 mmol/L 06/07/2025 6:47 PM EDT [facility] CO2, Plasma 23 22 - 29 mmol/L 06/07/2025 6:47 PM EDT [facility] Anion Gap 11 6 - 16 mmol/L 06/07/2025 6:47 PM EDT [facility] Total Calcium, Plasma 9.6 8.9 - 10.2 mg/dL 06/07/2025 6:47 PM EDT [facility] Total Protein 7.8 6.3 - 7.9 g/dL 06/07/2025 6:47 PM EDT [facility] Albumin, Plasma 4.2 3.5 - 5.2 g/dL 06/07/2025 6:47 PM EDT [facility] AST, Plasma 26 10 - 35 U/L 06/07/2025 6:47 PM EDT [facility] ALT, Plasma 26 10 - 35 U/L 06/07/2025 6:47 PM EDT [facility] Alkaline Phosphatase, Plasma 104 35 - 104 U/L 06/07/2025 6:47 PM EDT [facility] Total Bilirubin, Plasma 0.3 0.2 - 1.1 mg/dL 06/07/2025 6:47 PM EDT [facility] eGFRcr 100.6 mL/min/1.7 3m*2 06/07/2025 6:47 PM EDT [facility] Comment:Reported eGFRcr in m L/min/1.73m2 is based the CKD-EPI 2020 equation that does not use a race coefficient. Blood Venous blood specimen / Unknown Venipuncture / Unknown 06/07/2025 1:03 PM EDT 06/07/2025 1:03 PM EDT us Rodolfo Rhoades MD LAB BLOOD ORDERABLES Final Res ult [facility] [address] [place] [address] * Free T4, Plasma (06/07/2025 1:03 PM EDT) Free T4, Plasma 1.4 0.8 - 1.7 ng/dL 06/07/2025 6:47 PM EDT [facility] Blood Venous blood specimen / Unknown Venipuncture / Unknown 06/07/2025 1:03 PM EDT 06/07/2025 1:03 PM EDT Narrative [facility] - 06/07/2025 6:47 PM EDT Free T4 Trimester Specific Ranges 1st Trimester 0.9 - 1.50 ng/dL 2nd Trimester 0.7 - 1.40 ng/dL 3rd Trimester 0.7 - 1.24 ng/dL us Rodolfo Rhoades MD LAB BLOOD ORDERABLES Final Res ult Performing Organization Address City/[facility] Co de Phone Number [facility] [address] [place] [address] * Thyroid Stimulating Hormone, Plasma (06/07/2025 1:03 PM EDT) Thyroid Stimulating Hormone, Plasma 2.73 0.40 - 4.20 uIU/mL 06/07/2025 6:47 PM EDT [facility] Blood Venous blood specimen / Unknown Venipuncture / Unknown 06/07/2025 1:03 PM EDT 06/07/2025 1:03 PM EDT Narrative [facility] - 06/07/2025 6:47 PM EDT Trimester Specific Ranges TSH ( IU/mL) 1st Trimester 0.1 - 3.0 2nd Trimester 0.19 - 4.06 3rd Trimester 0.3 - 3.7 us Rodolfo Rhoaeds MD LAB BLOOD ORDERABLES Final Res ult Performing Organization Address City/[facility] Co de Phone Number [facility] [address] [place] [address] documented in this encounter Visit Diagnoses Diagnosis [...] documented as of this encounter Care Teams Litigation Attorney Associate Relationship Specialty Start Date End Date Rodolfo Rhoades MD [address] [place] [address] PCP - General Family Medicine 02/02/25 documented as of this encounter
--- NOTE | 2025-07-07 11:15 | CA_ITS ---
APPROVED REPORT EXAM: Limited 2D Echocardiogram Hr Analyst: Anjali Ellison RDCS Ht: 5 ft 4 in Wt: 121lbs BSA: 1.58 BP: 183/126 mmHg Indications: Evaluation of LV systolic function 2D Dimensions IVSd 0.87 cm F: 0.6-1.0 LVEF (Visual) 65.30 % PWd 0.96 cm F: 0.6 - 1.0 LA Volume 63.90 mL LVDd 4.74 cm F: 3.9 - 5.3 LA Volume Index 40.44 mL/m2 (M/F) 16-34 LVDs 3.04 cm F: 2.2 - 3.5 Other Information Study Quality: Fair Conclusion This is a limited TTE to evaluate for LV systolic function. Limited windows are obtained. The left ventricle is normal in size. There is increased LV wall thickness. There is normal global LV systolic function. LVEF is 60%. Electronically signed by : Terri Jackson MD 07/07/2025 14:40:25
--- OUTSIDE RECORDS SUMMARY | 2025-07-07 11:17 | XMS_ITS | Encounter Summary ---
Author Organization Healthcare Address [address] [id number] Care Team Providers Care Digital Librarian Name Role Phone Rodolfo Rhoades MD Primary Care Provider [phone] Encounter Details Date Type Department Care Team (Late st Contact Info) Description 06/15/2025 Orders Only [facility] [address] [place] [address] Rodolfo Rhoades MD [address] [place] [address] Fungal infection (Primary Dx) Social [...] a care home (including now)? No 07/25/2024 PHQ-9 Answer Date [...] were you homeless or living in a care home (including now)? No 01/20/2025 Safety and Environment [...] Description 07/21/2025 1:20 PM EDT Office Visit [facility] [address] [place] [address] Rod[place]fo [place] [address] documented as of this encounter Visit [...] documented as of this encounter Care Teams Digital Librarian Relationship Specialty Start Date End Date Rodolfo Rhoades MD [address] [place] [address] PCP - General Family Medicine 02/02/25 documented as of this encounter
--- OUTSIDE RECORDS SUMMARY | 2025-07-07 11:17 | XMS_ITS | Encounter Summary ---
Author Organization Healthcare Address [address] [place] [address] Care Team Providers Care Hand Wood Sander Name Role Phone Rodolfo Rhoades MD Primary Care Provider [phone] Reason for Visit * Reason Onset Date Comments HCN Clinical Concern/Question 07/06/2025 Encounter Details Date Type Department Care Team (Late st Contact Info) Description 07/05/2025 Telephone [facility] [address] [place] [address] Rodolfo Rhoades MD [address] [place] [address] HCN Clinical Concern/Question Social History Tobacco Use Types Packs/Day Years [...] place to sleep or slept in a long-term (including now)? No 07/25/2024 PHQ-9 Answer Date [...] any time in the past 12 m [facility], were you homeless or living in a long-term (including now)? No 01/20/2025 Safety and Environment [...] * Telephone Encounter - Mindy Gudino - 07/06/2025 2:33 PM EDT Called pt back and informed of information from Dr. Rhaodes and if she can make it in before 07/21/25 to call us back to let us know. Pt voiced understanding and stated BP has been running high too so she won't change anything with medication at this time. * Telephone Encounter - Mell Foster - 07/06/2025 9:59 AM EDT Clinical Concern/Question Reason for Call: No answer in clinic, returning Mindy's call. Best contact number: [phone] (home) Optimal time of day to reach caller: ANYTIME Additional comments/information from caller: Please call back. Note: Please do not reply to this message. Follow-up communication and further actions as a result of this message need to be communicated with the patient directly, if the patient is not active onMyChart. If the patient is active on MyChart, they will receive notification of the communication/outcome via [employer]. * Telephone Encounter - Mindy Gudino - 07/06/2025 8:57 AM EDT Called left vm. * Telephone Encounter - Jayde Treadwell - 07/05/2025 3:14 PM EDT Clinical Concern/Question Reason for Call: Pt wants to let know that she missed her appt today because she doesn't have any transportation and she couldn't call until now to [facility] because her phone got cut off. She says she's still having the swelling and now she's having a burning feeling in her legs and feet. She's taking her water pills and trying to keep her feet elevated when she can. Is there anything can recommend? She can't come back until 07/21 due to transportation. Pls advise. Thanks. Best contact number: [phone] (home) Optimal time of day to reach caller: ANYTIME Additional comments/information from caller: None Note: Please do not reply to this message. Follow-up communication and further actions as a result of this message need to be communicated with the patient directly, if the patient is not active onMyChart. If the patient is active on MyChart, they will receive notification of the communication/outcome via [employer]. documented in this encounter Plan of Treatment Upcoming Encounters Date Type Department Care Team (Late st Contact Info) Description 07/21/2025 1:20 PM EDT Office Visit [facility] [address] [place] [address] Rodolfo Rhoades MD [address] [place] [address] documented as of this encounter [...] documented as of this encounter Care Teams Hand Wood Sander Relationship Specialty Start Date End Date Rodolfo Rhoades MD [address] [place] [address] PCP - General Family Medicine 02/02/25 documented as of this encounter
--- OUTSIDE RECORDS SUMMARY | 2025-07-07 11:17 | XMS_ITS | Encounter Summary ---
Author Organization Healthcare Address [address] [id number] Care Team Providers Care Ballistics Laboratory Gunsmith Name Role Phone Georgette Moore Court DOVE Primary Care Provider [phone] Veronica Goodwin LPN Unavailable Unavailable Margaret Ro Unavailable Unavailable Rodolfo Rhoades MD Primary Care Provider [phone] Encounter Details Date Type Department Care Team (Late Contact Info) Description 02/06/2022 Outside Procedure External Location [address] [place] [phone] Provider, [facility] Social History Tobacco Use Types Packs/Day Years [...] Department Care Team (Late Contact Info) Description 07/21/2025 1:20 PM EDT Office Visit [facility] [address] [place] [address] Rodolfo Rhoades MD [address] [place] [address] documented as of this encounter Procedures Procedure Name Priority Date/Time Associated Diagnosis Comments XR LUMBAR SPINE 2 OR 3 VIEWS 02/06/2022 2:09 PM EST documented in this encounter Results * XR Lumbar Spine 2 or 3 Views (02/06/2022 2:09 PM EST) Anatomical Region Laterality Modality Spine, L-spine Radiographic T[place] ging 02/06/2022 2:09 PM EST Narrative 02/06/2022 3:19 [place] [address] Name: VERONICA ALVAREZ Exam Date: 02/06/2022 : 1975 Age 46 Gender: F Physician: HORACE RYAN Facility: [facility] Facility HSV: Outpatient Exam: LUMBAR SPINE 2 [...] DELEON 2022-02-06 15:07:32 Procedure Note Provider, Generic [place] - 02/06/2022 [place] [address] Name: VERONICA ALVAREZ Exam Date: 02/06/2022 : 1975 Age 46 Gender: F Physician: HORACE RYAN Facility: [facility] Facility HSV: Outpatient Exam: LUMBAR SPINE 2 [...] by GADIEL DELEON 2022-02-06 15:07:32 us Generic [place] Provider IMG XR PROCEDURES Fi nal Result [...] documented as of this encounter Care Teams Ballistics Laboratory Gunsmith Relationship Specialty Start Date End Date Georgette Moore APRN [address] [place] [address] PCP - General 04/12/21 02/01/25 Rodolfo Rhoades MD [address] [place] [address] PCP - General Family Medicine 02/02/25 Veronica Goodwin LPN [employer] [place] [address] TCM Nurse 07/25/24 08/25/24 Margaret Ro Community Health Worker 07/27/24 4 documented as of this encounter
--- OUTSIDE RECORDS SUMMARY | 2025-07-07 11:17 | XMS_ITS | Encounter Summary ---
Author Organization Healthcare Address [address] [place] [address] Care Team Providers Care Hand Polisher Name Role Phone Georgette Moore APRN Primary Care Provider [phone] Rodolfo Rhoades MD Primary Care Provider [phone] Reason for Visit * Reason Comments Med Refill Encounter Details Date Type Department Care Team (Late st Contact Info) Description 11/28/2024 Refill [facility] [address] [place] [address] Imelda Burgos APRN [address] [place] [address] COPD exacerbation (CMS/HCC); Cough with [...] the past 12 months has th e [employer], gas, oil, or water company threatened to [...] * Telephone Encounter - Nicole Smith - 11/28/2024 12:48 PM EST Pt stated this was a mistake from the pharmacy documented in this encounter Plan of Treatment Upcoming Encounters Date Type Department Care Team (Late st Contact Info) Description 07/21/2025 1:20 PM EDT Office Visit [facility] [address] [address] Rodolfo Rhoades MD [...] as of this encounter Care Teams Hand Polisher Relationship Specialty Start Date End Date Georgette Moore APRN [address] [address] PCP - General 04/12/21 02/01/25 Rodolfo Rhoades MD [address] [address] PCP - General Family Medicine 02/02/25 documented as of this encounter
--- OUTSIDE RECORDS SUMMARY | 2025-07-07 11:17 | XMS_ITS | Encounter Summary ---
Author Organization Healthcare Address [address] [place] [address] Care Team Providers Care Desk Pens Assembler Name Role Phone Rodolfo Rhoades MD Primary Care Provider [phone] Encounter Details Date Type Department Care Team [...] place to sleep or slept in a fci (including now)? No 07/25/2024 PHQ-9 Answer Date [...] any time in the past 12 m [facility], were you homeless or living in a fci (including now)? No 01/20/2025 Safety and Environment [...] the past 12 months has th e [employer], gas, oil, or water company threatened to [...] Description 07/21/2025 1:20 PM EDT Office Visit [facility] [address] [place] [address] Rodolfo Rhoades MD [address] [place] [address] documented as of this encounter [...] documented as of this encounter Care Teams Desk Pens Assembler Relationship Specialty Start Date End Date Rodolfo Rhoades MD [address] [place] [address] PCP - General Family Medicine 02/02/25 documented as of this encounter
--- OUTSIDE RECORDS SUMMARY | 2025-07-07 11:17 | XMS_ITS | Encounter Summary ---
Author Organization Healthcare Address [address] [place] [address] Care Team Providers Care Audio Video Technician Name Role Phone Geogrette Moore APRN Primary Care Provider [phone] Veronica Goodwin LPN Unavailable Unavailable Margaret Ro Unavailable Unavailable Rodolfo Rhoades MD Primary Care Provider [phone] Reason for Visit * Reason Comments Med Refill Encounter Details Date Type Department Care Team (Late st Contact Info) Description 12/21/2021 Refill [facility] [address] [place] [address] Georgette Moore APRN [address] [place] [address] Chronic fatigue Social History Tobacco [...] Description 07/21/2025 1:20 PM EDT Office Visit [facility] [address] [place] [address] Rodolfo Rhoades MD [address] [place] [address] documented as of this encounter Visit [...] documented as of this encounter Care Teams Audio Video Technician Relationship Specialty Start Date End Date Georgette Moore APRN [address] [place] [address] PCP - General 04/12/21 02/01/25 Rodolfo Rhoades MD [address] [place] [address] PCP - General Family Medicine 02/02/25 Veronica Goodwin LPN [employer] [place] [address] TCM Nurse 07/25/24 08/25/24 Margaret Ro Community Health Worker 07/27/24 4 documented as of this encounter
--- OUTSIDE RECORDS SUMMARY | 2025-07-07 11:17 | XMS_ITS | Encounter Summary ---
Author Organization Healthcare Address [address] [place] [address] Care Team Providers Care Car Painter Name Role Phone Georgette Moore APRN Primary Care Provider [phone] Veronica Goodwin LPN Unavailable Unavailable Margaret Ro Unavailable Unavailable Rodolfo Rhoades MD Primary Care Provider [phone] Reason for Visit * Reason Comments Med Refill Encounter Details Date Type Department Care Team (Late st Contact Info) Description 05/13/2021 Refill [facility] [address] [place] [address] Georgette Moore APRN [address] [place] [address] Social History Tobacco Use Types [...] Description 07/21/2025 1:20 PM EDT Office Visit [facility] [address] [place] [address] Rodolfo Rhoades [...] documented as of this encounter Care Teams Car Painter Relationship Specialty Start Date End Date Georgette Moore APRN [address] [place] [address] PCP - General 04/12/21 02/01/25 Rodolfo Rhoades MD [address] [place] [address] PCP - General Family Medicine 02/02/25 Veronica Goodwin LPN [employer] [address] TCM Nurse 07/25/24 08/25/24 Margaret Ro Community Health Worker 07/27/24 4 documented as of this encounter
--- OUTSIDE RECORDS SUMMARY | 2025-07-07 11:17 | XMS_ITS | Encounter Summary ---
Author Organization Healthcare Address [address] [place] [address] Care Team Providers Care Commercial Lease Administrator Name Role Phone Rodolfo Rhoades MD Primary Care Provider [phone] Reason for Visit * Reason Comments Med Refill Encounter Details Date Type Department Care Team (Late st Contact Info) Description 07/07/2025 Refill [facility] [address] [place] [address] Jocelyn Velez, STEAM AND GAS TURBINE ASSEMBLER, DNP [address] [place] [address] Low vitamin D level Social History Tobacco Use Types Packs/Day Years [...] any time in the past 12 m [facility], were you homeless or living in a [...] Description 07/21/2025 1:20 PM EDT Office Visit [facility] [address] [place] [address] [place] [address] documented as of this encounter Visit Diagnoses Diagnosis Low vitamin D level documented in this encounter Additional Health Concerns Assessment Noted Time PHQ-9 Depression Total Score: 0 11/16/20 24 11:05 AM EST A fall risk assessment has been complete d for the patient 03/19/2023 1:57 PM EDT A Body Mass Index follow-up plan has been documented for the patient 06/08/2025 12:14 AM EDT documented as of this encounter Care Teams Commercial Lease Administrator Relationship Specialty Start Date End Date Rodolfo Rhoades MD [address] [place] [address] PCP - General Family Medicine 02/02/25 documented as of this encounter
--- OUTSIDE RECORDS SUMMARY | 2025-07-07 11:17 | XMS_ITS | Encounter Summary ---
Author Organization Healthcare Address [address] [id number] Care Team Providers Care Candy Depositing Machine Operator Name Role Phone Georgette Moore DERRELL Primary Care Provider [phone] BuddyHailey Blanche SCHULTZ Unavailable Unavailable Margaret Ro Unavailable Unavailable Rodolfo Rhoades MD Primary Care Provider [phone] Encounter Details Date Type Department Care Team (Late Contact Info) Description 07/22/2021 Outside Procedure External Location [address] [place] [phone] Irma Masterson MD [address] [place] [address] Social History Tobacco Use Types [...] Description 07/21/2025 1:20 PM EDT Office Visit [facility] [address] [place] [address] Rodolfo Rhoades MD 202 [facility] [place] [address] documented as of this encounter Procedures Procedure Name Priority Date/Time Associated Diagnosis Comments CT CHEST LIMITED HISTORICAL 07/22/2021 1:04 PM EDT documented in this encounter Results * CT Chest Limited Historical (07/22/2021 1:04 PM EDT) Anatomical Region Laterality Modality Chest Computed Tomogra phy 07/22/2021 1:04 PM EDT Narrative 07/22/2021 3:35 PM EDT [address] [place] [address] Name: HAILEY ALVAREZ Exam Date: 07/22/2021 : 1975 Age 45 Gender: F Physician: Irma Masterson Facility: [facility] Facility HSV: Outpatient Exam: CT CHEST W/O [...] Funmilayo Badillo 07/22/2021 Thank you for referring HAILEY ALVAREZ to [facility]. Legally authenticated by POPE FUNMILAYO Almonte 2021-07-22 15:24:50 Procedure Note Provider, [facility] 07/22/2021 [facility] [address] [place] [address] Name: HAILEY ALVAREZ Exam Date: 07/22/2021 : 1975 Age 45 Gender: F Physician: Irma Masterson Facility: [facility] Facility HSV: Outpatient Exam: CT CHEST W/O [...] Funmilayo Badillo 07/22/2021 Thank you for referring HAILEY ALVAREZ to [facility]. Legally authenticated by POPE FUNMILAYO Almonte [...] documented as of this encounter Care Teams Candy Depositing Machine Operator Relationship Specialty Start Date End Date Georgette Moore APRN [address] [place] [address] PCP - General 04/12/21 02/01/25 Rodolfo Rhoades MD [address] [place] [address] PCP - General Family Medicine 02/02/25 Hailey Goodwin LPN [employer] [place] [address] TCM Nurse 07/25/24 08/25/24 Margaret Ro Community Health Worker 07/27/24 4 documented as of this encounter
--- OUTSIDE RECORDS SUMMARY | 2025-07-07 11:17 | XMS_ITS | Encounter Summary ---
Author Organization Healthcare Address [address] [place] [address] Care Team Providers Care Physical Chemist Name Role Phone Rodolfo Rhoades MD Primary Care Provider [phone] Reason for Visit * Reason Onset Date Comments HCN - Patient Message 04/14/2025 Encounter Details Date Type Department Care Team (Late st Contact Info) Description 04/14/2025 Telephone [facility] [address] [place] [address] Rodolfo Rhoades MD [address] [place] [address] HCN - Patient Message Social [...] place to sleep or slept in a snf (including now)? No 07/25/2024 PHQ-9 Answer Date [...] any time in the past 12 m [facility], were you homeless or living in a snf (including now)? No 01/20/2025 Safety and Environment [...] and optimal time of day to reach caller:[phone] Note: Please do not reply to this [...] Description 07/21/2025 1:20 PM EDT Office Visit [facility] [place] [address] [place] [address] [place] [address] documented as of this encounter [...] as of this encounter Care Teams Physical Chemist Relationship Specialty Start Date End Date Rodolfo hRoades MD [address] [place] [address] PCP - General Family Medicine 02/02/25 documented as of this encounter
--- OUTSIDE RECORDS SUMMARY | 2025-07-07 11:17 | XMS_ITS | Encounter Summary ---
Author Organization Healthcare Address [address] [place] [address] Care Team Providers Care Spa Coordinator Name Role Phone Rodolfo Rhoades MD Primary Care Provider [phone] Reason for Visit * Reason Comments Med Refill Encounter Details Date Type Department Care Team (Late st Contact Info) Description 05/22/2025 Refill [facility] [address] [place] [address] Rodolfo Rhoades MD [address] [place] [address] Social History Tobacco Use Types [...] any time in the past 12 m [facility], were you homeless or [...] 07/21/2025 1:20 PM EDT Office Visit [facility] [address] [place] [address] Rodolfo Rhoades MD [address] [place] [address] documented as of this encounter [...] documented as of this encounter Care Teams Spa Coordinator Relationship Specialty Start Date End Date Rodolfo Rhoades MD [address] [place] [address] PCP - General Family Medicine 02/02/25 documented as of this encounter
--- OUTSIDE RECORDS SUMMARY | 2025-07-07 11:17 | XMS_ITS | Encounter Summary ---
Author Organization Healthcare Address [address] [place] [address] Care Team Providers Care Dog Control Officer Name Role Phone Rodolfo Rhoades MD Primary Care Provider [phone] Reason for Visit * Reason Onset Date Comments HCN - Patient Message 06/15/2025 Encounter Details Date Type Department Care Team (Late st Contact Info) Description 06/15/2025 Telephone [facility] Medicine [address] [place] [address] Rodolfo Rhoades MD [address] [place] [address] HCN - Patient Message Social [...] any time in the past 12 m [facility], were you homeless or living in [...] optimal time of day to reach caller: [phone] Note: Please do not reply to this [...] Description 07/21/2025 1:20 PM EDT Office Visit [facility] [address] [place] [address] [place] [address] documented as of this encounter Visit [...] documented as of this encounter Care Teams Dog Control Officer Relationship Specialty Start Date End Date Rodolfo Rhoades MD [address] [place] [address] PCP - General Family Medicine 02/02/25 documented as of this encounter
--- OUTSIDE RECORDS SUMMARY | 2025-07-07 11:17 | XMS_ITS | Encounter Summary ---
Author Organization Healthcare Address [address] [id number] Care Team Providers Care Flatbed Driver Name Role Phone Georgette Moore Court DOVE Primary Care Provider [phone] Veronica Goodwin LPN Unavailable Unavailable Margaret Ro Unavailable Unavailable Rodolfo Rhoades MD Primary Care Provider [phone] Encounter Details Date Type Department Care Team (Late Contact Info) Description 02/06/2022 Outside Procedure External Location [address] [place] [phone] Provider, [facility] Social History Tobacco Use Types Packs/Day Years [...] Description 07/21/2025 1:20 PM EDT Office Visit [facility] [address] [place] [address] Rodolfo Rhoades MD [address] [place] [address] documented as of this encounter Procedures Procedure Name Priority Date/Time Associated Diagnosis Comments XR THORACIC SPINE 3 VIEWS 02/06/2022 2:09 PM EST documented in this encounter Results * XR Thoracic Spine 3 Views (02/06/2022 2:09 PM EST) Anatomical Region Laterality Modality Spine, T-spine Radiographic Tierra ging 02/06/2022 2:09 PM EST Narrative 02/06/2022 3:19 [place] [address] Name: VERONICA ALVAREZ Exam Date: 02/06/2022 : 1975 Age 46 Gender: F Physician: HORACE RYAN Facility: [facility] Facility HSV: Outpatient Exam: THORACIC SPINE [...] Thank you for referring VERONICA ALVAREZ to [facility]. Legally authenticated by GADIEL DELEON 2022-02-06 15:08:18 Procedure Note Provider, Generic [facility] - 02/06/2022 [place] [address] Name: VERONICA ALVAREZ Exam Date: 02/06/2022 : 1975 Age 46 Gender: F Physician: HORACE RYAN Facility: [facility] Facility HSV: Outpatient Exam: THORACIC SPINE [...] Thank you for referring VERONICA ALVAREZ to [facility]. Legally authenticated by GADIEL DELEON 2022-02-06 15:08:18 us Generic [facility] Provider IMG XR PROCEDURES Fi nal Result [...] documented as of this encounter Care Teams Flatbed Driver Relationship Specialty Start Date End Date Georgette Moore APRN [address] [place] [address] PCP - General 04/12/21 02/01/25 Rodolfo Rhoades MD [address] [place] [address] PCP - General Family Medicine 02/02/25 Veronica Goodwin LPN [employer] [place] [address] TCM Nurse 07/25/24 08/25/24 Margaret Ro Community Health Worker 07/27/24 4 documented as of this encounter
--- OUTSIDE RECORDS SUMMARY | 2025-07-07 11:17 | XMS_ITS | Encounter Summary ---
Author Organization Healthcare Address [address] [id number] Care Team Providers Care Optical Effects Line Up Person Name Role Phone Rodolfo Rhoades MD Primary Care Provider [phone] Encounter Details Date Type Department Care Team (Late st Contact Info) Description 03/28/2025 Results Follow-Up [facility] [address] [place] [address] Rodolfo Rhoades MD [address] [place] [address] Social History Tobacco Use Types [...] EDT Nathalie Garrett 2. Non-Specific Active Suici moar Thoughts (Past 1 Month) No 06/07/2025 12:01 [...] Description 07/21/2025 1:20 PM EDT Office Visit [address] [address] Rodolfo Rhoades MD [address] [place] [address] documented as of this encounter Results * C-peptide (06/07/2025 1:03 PM EDT) C Peptide 2.43 0.81 - 5.30 ng/mL 06/07/2025 7:08 PM EDT [facility] Blood Venous blood specimen / Unknown Venipuncture / Unknown 06/07/2025 1:03 PM EDT 06/07/2025 1:03 PM EDT us Rodolfo Rhoades MD LAB BLOOD ORDERABLES Final Res ult Performing Organization Address [facility] Co de Phone Number [facility] [address] [place] [address] * Insulin, random (06/07/2025 1:03 PM EDT) Insulin 7.0 3.0 - 16.0 uU/mL 06/07/2025 7:08 PM EDT [facility] Blood Venous blood specimen / Unknown Venipuncture / Unknown 06/07/2025 1:03 PM EDT 06/07/2025 1:03 PM EDT Rodolfo Rhoades MD LAB BLOOD ORDERABLES Final Res ult [facility] [address] [place] [address] * Hemoglobin A1c (03/27/2025 12:35 PM EDT) Hemoglobin A1c 5.4 <5.7 % 03/28/2025 3:54 PM EDT [facility] Blood Venous blood specimen / Unknown Venipuncture / Unknown 03/27/2025 12:35 PM EDT 03/27/2025 12:35 PM EDT Narrative [facility] - 03/28/2025 3:54 PM EDT HA1C Interpretive Data: Diagnosis of Diabetes: Diabetic > or = 6.5% Pre-diabetic 5.7 to 6.4% Non-diabetic < or = 5.6% Glycemic Targets for Type I and Type II Diabetics: Non- Adults <7.0% Adults <6.0% Children and Adolescents <7.5% Source: [place] [employer]. Standards of medical care in diabetes,2017. Diabetes Care.2017:40 (suppl 1):S1-S135. us Rodolfo Rhoades MD LAB BLOOD ORDERABLES Final Res ult [facility] [address] [place] [address] documented in this encounter Visit Diagnoses Diagnosis [...] documented as of this encounter Care Teams Optical Effects Line Up Person Relationship Specialty Start Date End Date Rodolfo Rhoades MD [address] [place] [address] PCP - General Family Medicine 02/02/25 documented as of this encounter
--- OUTSIDE RECORDS SUMMARY | 2025-07-07 11:17 | XMS_ITS | Encounter Summary ---
Author Organization Healthcare Address [address] [id number] Care Team Providers Care Care Coordination Manager Name Role Phone Georgette Moore Court DOVE Primary Care Provider [phone] Veronica Goodwin LPN Unavailable Unavailable Margaret Ro Unavailable Unavailable Rodolfo Rhoades MD Primary Care Provider [phone] Encounter Details Date Type Department Care Team (Late Contact Info) Description 02/06/2022 Outside Procedure External Location [address] [place] [phone] Provider, [facility] Social History Tobacco Use Types [...] Description 07/21/2025 1:20 PM EDT Office Visit [facility] [address] [place] [address] Rodolfo Rhoades MD [address] [place] [address] documented as of this encounter Procedures Procedure Name Priority Date/Time Associated Diagnosis Comments XR CERVICAL SPINE 2 OR 3 VIEWS 02/06/2022 2:09 PM EST documented in this encounter Results * XR Cervical Spine 2 or 3 Views (02/06/2022 2:09 PM EST) Anatomical Region Laterality Modality Spine, C-spine Radiographic Tierra ging 02/06/2022 2:09 PM EST Narrative 02/06/2022 3:21 [place] [address] Name: VERONICA ALVAREZ Exam Date: 02/06/2022 : 1975 Age 46 Gender: F Physician: HORACE RYAN Facility: [facility] Facility HSV: Outpatient Exam: CERVICAL SPINE [...] Thank you for referring VERONICA ALVAREZ to [facility]. Legally authenticated by GADIEL DELEON 2022-02-06 15:08:51 Procedure Note Provider, Generic [facility] - 02/06/2022 [place] [address] Name: VERONICA ALVAREZ Exam Date: 02/06/2022 : 1975 Age 46 Gender: F Physician: HORACE RYAN Facility: [facility] Facility HSV: Outpatient Exam: CERVICAL SPINE [...] Thank you for referring VERONICA ALVAREZ to [facility]. Legally authenticated by GADIEL DELEON 2022-02-06 15:08:51 us Generic [facility] Provider IMG XR PROCEDURES Fi nal Result [...] documented as of this encounter Care Teams Care Coordination Manager Relationship Specialty Start Date End Date Georgette Moore APRN [address] [place] [address] PCP - General 04/12/21 02/01/25 Rodolfo Rhoades MD [address] [place] [address] PCP - General Family Medicine 02/02/25 Veronica Goodwin LPN VALUE-[employer]ED [place] [address] TCM Nurse 07/25/24 08/25/24 Margaret Ro Community Health Worker 07/27/24 4 documented as of this encounter
--- OUTSIDE RECORDS SUMMARY | 2025-07-07 11:18 | XMS_ITS | Encounter Summary ---
Author Organization Healthcare Address [address] [id number] Care Team Providers Care Health Occupations Teacher Name Role Phone Georgette Moore APRN Primary Care Provider [phone] Veronica Goodwin LPN Unavailable Unavailable Margaret Ro Unavailable Unavailable Rodolfo Rhoades MD Primary Care Provider [phone] Encounter Details Date Type Department Care Team (Late st Contact Info) Description 07/22/2024 Outside Procedure External Location [address] [place] [phone] Provider, Swapnil Monique Social History Tobacco Use Types Packs/Day Years [...] Description 07/21/2025 1:20 PM EDT Office Visit [facility] [address] [place] [address] Rodolfo Rhoades MD [address] [place] [address] documented as of this encounter Procedures Procedure Name Priority Date/Time Associated Diagnosis Comments ECHO, ADULT TRANSTHORACIC COMPLETE W/ COLOR AND DOPPLER 07/22/2024 6:31 AM EDT documented in this encounter Results * Echo, Adult Transthoracic Complete w/ Color and Doppler (07/22/2024 6:31 AM EDT) Anatomical Region Laterality Modality Ultrasound 07/22/2024 6:31 AM EDT Narrative 07/22/2024 12:07 PM EDT [address] [address] Name: VERONICA ALVAREZ Exam Date: 07/22/2024 : 1975 Age 48 years Gender: F Physician: VICTORIANO REYES Facility: [facility] Facility HSV: Inpatient Exam: ECHO [...] stenosis with a valve area of 0.85 sprayer leather (Peak grad=45mmHg, Mean grad=24mmHg, LVOT grady=2.10cm, LVOT TVI=19.3cm, Ao TVI=79.0cm). The dimensionless index is 0.24. AV peak xtgevcbp=174hf/sec. There is a Mechanical AV prosthesis. (Peak [...] Thank you for referring VERONICA ALVAREZ to [facility]. Legally authenticated by CINDY JORDAN 2024-07-22 12:04:58 Procedure Note Provider, Generic [place] - 07/22/2024 [place] [id number] Name: VERONICA ALVAREZ Exam Date: 07/22/2024 : 1975 Age 48 years Gender: F Physician: VICTORIANO REYES Facility: [facility] Facility HSV: Inpatient Exam: ECHO [...] stenosis with a valve area of 0.85 sprayer leather (Peak grad=45mmHg, Mean grad=24mmHg, LVOT grady=2.10cm, LVOT TVI=19.3cm, Ao TVI=79.0cm). The dimensionless index is 0.24. AV peak zboitcny=779ys/sec. There is a Mechanical AV prosthesis. (Peak [...] Thank you for referring VERONICA ALVAREZ to [facility]. Legally authenticated by CINDY JORDAN 2024-07-22 12:04:58 Generic [place] Provider CV ECHO PROCEDURES F inal Result [...] documented as of this encounter Care Teams Health Occupations Teacher Relationship Specialty Start Date End Date Georgette Moore APRN [address] [place] [phone] PCP - General 04/12/21 02/01/25 Rodolfo Rhoades MD [address] [place] [address] PCP - General Family Medicine 02/02/25 Veronica Goodwin LPN VALUE-[employer]ED [place] [address] TCM Nurse 07/25/24 08/25/24 Margaret Ro Community Health Worker 07/27/24 4 documented as of this encounter
--- OUTSIDE RECORDS SUMMARY | 2025-07-07 11:18 | XMS_ITS | Encounter Summary ---
Author Organization Healthcare Address [address] [id number] Care Team Providers Care Senior Interactive Producer Name Role Phone Georgette Moore APRN Primary Care Provider [phone] Veronica Goodwin LPN Unavailable Unavailable Margaret Ro Unavailable Unavailable Rodolfo Rhoades MD Primary Care Provider [phone] Encounter Details Date Type Department Care Team (Late st Contact Info) Description 07/21/2024 Outside Procedure External Location [address] [place] [id number] Provider, Swapnil Monique Social History Tobacco Use [...] place to sleep or slept in a residential (including now)? No 07/25/2024 Safety and Environment [...] Description 07/21/2025 1:20 PM EDT Office Visit [facility] [place] [address] [place] [address] [place] [address] documented as of this encounter Procedures Procedure Name Priority Date/Time Associated Diagnosis Comments XR CHEST 1 VIEW 07/21/2024 4:03 PM EDT documented in this encounter Results * XR Chest 1 View (07/21/2024 4:03 PM EDT) Anatomical Region Laterality Modality Chest Digital Radiogra phy 07/21/2024 4:03 PM EDT Narrative 07/21/2024 4:31 [place] [address] Name: VERONICA ALVAREZ Exam Date: 07/21/2024 : 1975 Age 48 years Gender: F Physician: PAOLA PIZARRO Facility: [facility] Facility HSV: Outpatient Exam: CHEST PORTABLE INDICATION: [...] Thank you for referring VERONICA ALVAREZ to [facility]. Legally authenticated by NATALIE CULVER 2024-07-21 16:12:48 Procedure Note Provider, Swapnil Monique - 07/21/[id number] [place] [address] Name: VERONICA ALVAREZ Exam Date: 07/21/2024 : 1975 Age 48 years Gender: F Physician: PAOLA PIZARRO Facility: [facility] Facility HSV: Outpatient Exam: CHEST PORTABLE INDICATION: [...] Thank you for referring VERONICA ALVAREZ to [facility]. Legally authenticated by NATALIE CULVER 2024-07-21 16:12:48 Generic [place] Provider IMG XR PROCEDURES Fi nal Result [...] documented as of this encounter Care Teams Senior Interactive Producer Relationship Specialty Start Date End Date Georgette Moore APRN [address] [place] [address] PCP - General 04/12/21 02/01/25 Rodolfo Rhoades MD [address] [place] [address] PCP - General Family Medicine 02/02/25 Veronica Goodwin LPN [employer] [place] [address] TCM Nurse 07/25/24 08/25/24 Margaret Ro Community Health Worker 07/27/24 4 documented as of this encounter
--- OUTSIDE RECORDS SUMMARY | 2025-07-07 11:18 | XMS_ITS | Clinical Summary ---
Author Organization Healthcare Address [address] [place] [address] Care Team Providers Care [employer] Rep Name Role Phone Rodolfo Rhoades MD Primary Care Provider [phone] Allergies Active Allergy Reactions Criticality Noted Date [...] 4 Active ergocalciferol (Vitamin D-2) 1.25 MG (18548 UT) capsule Take 1 capsule (50,000 Units) by mouth 1 (one) time per week. 12 capsule 1 5 025 Active dilTIAZem CD (Cardizem CD) 120 MG 24 hr capsule Take 1 capsule (120 mg) by mouth daily. 30 capsule 5 Active Additional Information Patient not taking.Reported on 06/07/2025 albuterol 108 (90 Base) MCG/ACT inhalerIndicatio ns:Moderate persistent asthma without complication Inhale 2 puffs as needed for shortness of breath or wheezing. 1 each 2 5 Active tiotropium-oloda terol (Stiolto Respimat) 2.5-2.5 MCG/ACT aerosol solution inhaler Inhale 2 Inhalations daily. 4 g 5 Active megestrol (Megace) 40 MG/ML suspension Take 5 mL by mouth 2 times a day. Shake well just before you measure a dose. Measure with a special dose-measuring spoon or medicine cup, not with a regular table spoon. If you do not have a dose-measuring device, ask your pharmacist for one. 300 mL 2 5 Active fluconazole (Diflucan) 150 MG tabletIndication s:Fungal infection Take one tab now. Repeat in 3 days if symptoms persist. 2 tablet 5 Active amoxicillin-clav ulanate (Augmentin) 875-125 MG tabletIndication s:Bacterial sinusitis,Dysuri a Take 1 tablet by mouth 2 times a day for 10 days. 20 tablet 5 025 Active Problems Problem Noted Date Diagnosed Date [...] Encounters Date Type Department Care Team Description 07/07/2025 Refill [facility] [address] [place] [address] Rodolfo Rhoades MD 07/07/2025 Refill [facility] [address] [place] [address] Jocelyn Velez, PATIENT REGISTRATION CLERK, DNP Low vitamin D level 07/05/2025 Telephone [facility] [address] [place] [address] Rodolfo Rhoades MD HCN Clinical Concern/Question 06/15/2025 Orders Only [facility] [address] [place] [address] Rodolfo Rhoades MD Fungal infection (Primary Dx) 06/15/2025 Telephone [facility] [address] [place] [address] Rodolfo Rhoades MD HCN - Patient Message 06/07/2025 11:40 AM EDT Office Visit [facility] [address] [place] [address] Rodolfo Rhoades MD Chronic fatigue (Primary Dx); Pulmonary emphysema, unspecified emphysema type (CMS/HCC); Essential hypertension; Vitamin D deficiency; Elevated LFTs; Bacterial sinusitis; Dysuria; Pitting edema; Low blood sugar 06/07/2025 Travel 05/22/2025 Refill [facility] [address] [place] [address] Rodolfo Rhoades MD 04/19/2025 Education [facility] [address] [place] [address] Gerard Perez RN 04/14/2025 Telephone [facility] [address] [place] [address] Rodolfo Rhoades MD HCN - Patient Message from Last 3 Months Immunizations Immunization Administration Dates Next Due Influenza, injectable, quadrivalent 12/17/2016 Influenza, injectable, quadr ivalent, preservative free 09/20/2020 Influenza, seasonal, injecta ble, preservative free 12/17/2016 Pfizer-BioNTTweetworks COVID-19 Vac cine (Purple Cap) 12+ 11/27/2021,04/05/2021,03/08/2021 [...] th e electric, gas, oil, or water [employer] threatened to shut off services in your [...] 1:20 PM EDT Office Visit [facility] [address] [place] [address] Rodolfo Rhoades MD [address] [place] [address] Health Maintenance Due Date Last [...] 2022 Sigmoidoscopy 2022 [facility]-Colorectal Cancer Screening 2022 [id number] Vaccine ( season) 2024 11/27/2021, 04/05/2021, 03/08/2021 [...] 03/27/2025 12:35 PM EDT Low blood sugar ACUTE HEPATITIS PANEL Routine 04/03/2021 11:21 AM EDT from Last 3 Months or Most Recently Relevant to Health Maintenance Results * N-Terminal Probnp, Plasma (06/07/2025 1:03 PM EDT) N-Terminal, PROBNP, Plasma 394 0 - 449 pg/mL 06/07/2025 6:47 PM EDT [facility] Blood Venous blood specimen / Unknown Venipuncture / Unknown 06/07/2025 1:03 PM EDT 06/07/2025 1:03 PM EDT us Rodolfo Rhoades MD LAB BLOOD ORDERABLES Final Res ult [facility] [address] [place] [address] * Insulin, random (06/07/2025 1:03 PM EDT) Insulin 7.0 3.0 - 16.0 uU/mL 06/07/2025 7:08 PM EDT [facility] Blood Venous blood specimen / Unknown Venipuncture / Unknown 06/07/2025 1:03 PM EDT 06/07/2025 1:03 PM EDT Rodolfo Rhoades MD LAB BLOOD ORDERABLES Final Res ult Performing Organization Address [facility] Co de Phone Number [facility] [address] [place] [address] * Vitamin D 25 Hydroxy (06/07/2025 1:03 PM EDT) Vitamin D 25 Hydroxy 34.8 20.0 - 80.0 ng/mL 06/07/2025 7:03 PM EDT [facility] Blood Venous blood specimen / Unknown Venipuncture / Unknown 06/07/2025 1:03 PM EDT 06/07/2025 1:03 PM EDT Narrative [facility] - 06/07/2025 7:03 PM EDT Testing performed on [employer] Learning Program Manager, standardized against NIST SRM 2972. When testing [...] 80 ng/mL Possible toxicity: >100 ng/mL us oRdolfo Rhoades MD LAB BLOOD ORDERABLES Final Res ult Performing Organization Address [facility] Co de Phone Number [facility] [address] [place] [address] * C-peptide (06/07/2025 1:03 PM EDT) C Peptide 2.43 0.81 - 5.30 ng/mL 06/07/2025 7:08 PM EDT [facility] Blood Venous blood specimen / Unknown Venipuncture / Unknown 06/07/2025 1:03 PM EDT 06/07/2025 1:03 PM EDT Rodolfo Rhoades MD LAB BLOOD ORDERABLES Final Res ult Performing Organization Address City/[facility] Co de Phone Number [facility] [address] [place] [address] * Urinalysis with reflex microscopic (Culture NOT Included) (06/07/2025 1:03 PM EDT) Color, Urine Yellow LAB URINALYSIS - AUTOMATED METHOD 06/07/2025 6:35 PM EDT [facility] Clarity, Urine Clear LAB URINALYSIS - AUTOMATED METHOD 06/07/2025 6:35 PM EDT [facility] Spec Ovid, Urine 1.010 1.005 - 1.030 LAB URINALYSIS - AUTOMATED METHOD 06/07/2025 6:35 PM EDT [facility] pH, Urine 6.0 5.0 - 8.0 LAB URINALYSIS - AUTOMATED METHOD 06/07/2025 6:35 PM EDT [facility] Protein, Urine Negative Negative mg/dL LAB URINALYSIS - AUTOMATED METHOD 06/07/2025 6:35 PM EDT [facility] Glucose, Urine Negative Negative mg/dL LAB URINALYSIS - AUTOMATED METHOD 06/07/2025 6:35 PM EDT [facility] Ketones, Urine Negative Negative mg/dL LAB URINALYSIS - AUTOMATED METHOD 06/07/2025 6:35 PM EDT [facility] Blood, Urine Negative Negative LAB URINALYSIS - AUTOMATED METHOD 06/07/2025 6:35 PM EDT [facility] Bilirubin, Urine Negative Negative LAB URINALYSIS - AUTOMATED METHOD 06/07/2025 6:35 PM EDT [facility] Urobilinogen, Urine 0.2 0.2 to 1.0 mg/dL LAB URINALYSIS - AUTOMATED METHOD 06/07/2025 6:35 PM EDT [facility] Leukocytes, Urine Negative Negative LAB URINALYSIS - AUTOMATED METHOD 06/07/2025 6:35 PM EDT [facility] Nitrite, Urine Negative Negative LAB URINALYSIS - AUTOMATED METHOD 06/07/2025 6:35 PM EDT [facility] Urine Urine specimen obtained by clean catch procedure / Unknown Non-blood Collection / Unknown 06/07/2025 1:03 PM EDT 06/07/2025 1:03 PM EDT us Rodolfo Rhoades MD LAB URINE ORDERABLES Final Res ult [facility] [address] [place] [address] * (ABNORMAL) CBC and Differential (06/07/2025 1:03 PM EDT) WBC Count 9.28 3.70 - 10.30 10*3/uL LAB HEMATOLOGY METHOD 06/07/2025 6:25 PM EDT [facility] RBC Count 4.66 3.90 - 5.20 10*6/uL LAB HEMATOLOGY METHOD 06/07/2025 6:25 PM EDT [facility] HGB 14.2 11.2 - 15.7 g/dL LAB HEMATOLOGY METHOD 06/07/2025 6:25 PM EDT [facility] HCT 44.1 34.0 - 45.0 % LAB HEMATOLOGY METHOD 06/07/2025 6:25 PM EDT [facility] Platelet Count 255 155 - 369 10*3/uL LAB HEMATOLOGY METHOD 06/07/2025 6:25 PM EDT [facility] MCV 95 79 - 98 fL LAB HEMATOLOGY METHOD 06/07/2025 6:25 PM EDT [facility] MCH 30.5 26.0 - 32.0 pg LAB HEMATOLOGY METHOD 06/07/2025 6:25 PM EDT [facility] MCHC 32.2 30.7 - 35.5 g/dL LAB HEMATOLOGY METHOD 06/07/2025 6:25 PM EDT [facility] RDW 13.5 11.5 - 14.5 % LAB HEMATOLOGY METHOD 06/07/2025 6:25 PM EDT [facility] MPV 10.2 8.8 - 12.5 fL LAB HEMATOLOGY METHOD 06/07/2025 6:25 PM EDT [facility] nRBC 0.0 <=0.0 per 100 WBCs LAB HEMATOLOGY METHOD 06/07/2025 6:25 PM EDT [facility] Differential Type Automated LAB HEMATOLOGY METHOD 06/07/2025 6:25 PM EDT [facility] Neutrophils % 57 % LAB HEMATOLOGY METHOD 06/07/2025 6:25 PM EDT [facility] Lymphocytes % 23 % LAB HEMATOLOGY METHOD 06/07/2025 6:25 PM EDT [facility] Monocytes % 9 % LAB HEMATOLOGY METHOD 06/07/2025 6:25 PM EDT [facility] Eosinophils % 9 % LAB HEMATOLOGY METHOD 06/07/2025 6:25 PM EDT [facility] Basophils % 1 % LAB HEMATOLOGY METHOD 06/07/2025 6:25 PM EDT [facility] Immature Granulocytes % 1 % LAB HEMATOLOGY METHOD 06/07/2025 6:25 PM EDT [facility] Neutrophils Absolute 5.43 1.60 - 6.10 10*3/uL LAB HEMATOLOGY METHOD 06/07/2025 6:25 PM EDT [facility] Lymphocytes Absolute 2.09 1.20 - 3.90 10*3/uL LAB HEMATOLOGY METHOD 06/07/2025 6:25 PM EDT [facility] Monocytes Absolute 0.80 0.30 - 0.90 10*3/uL LAB HEMATOLOGY METHOD 06/07/2025 6:25 PM EDT [facility] Eosinophils Absolute 0.85(H) 0.00 - 0.50 10*3/uL LAB HEMATOLOGY METHOD 06/07/2025 6:25 PM EDT [facility] Basophils Absolute 0.05 0.00 - 0.10 10*3/uL LAB HEMATOLOGY METHOD 06/07/2025 6:25 PM EDT [facility] Immature Granulocytes Absolute 0.06 0.00 - 0.06 10*3/uL LAB HEMATOLOGY METHOD 06/07/2025 6:25 PM EDT [facility] Blood Venous blood specimen / Unknown Venipuncture / Unknown 06/07/2025 1:03 PM EDT 06/07/2025 1:03 PM EDT Narrative [facility] - 06/07/2025 6:25 PM EDT Therapeutic decision making should be based on absolute values, rather than percentages. us Rodolfo Rhoades MD LAB BLOOD ORDERABLES Final Res ult [facility] [address] [place] [address] * Thyroid Stimulating Hormone, Plasma (06/07/2025 1:03 PM EDT) Thyroid Stimulating Hormone, Plasma 2.73 0.40 - 4.20 uIU/mL 06/07/2025 6:47 PM EDT [facility] Blood Venous blood specimen / Unknown Venipuncture / Unknown 06/07/2025 1:03 PM EDT 06/07/2025 1:03 PM EDT Narrative [facility] - 06/07/2025 6:47 PM EDT Trimester Specific Ranges TSH ( IU/mL) 1st Trimester 0.1 - 3.0 2nd Trimester 0.19 - 4.06 3rd Trimester 0.3 - 3.7 Rodolfo Rhoades MD LAB BLOOD ORDERABLES Final Res ult Performing Organization Address City/[facility]/ZIP Co de Phone Number [facility] [address] [place] [address] * Free T4, Plasma (06/07/2025 1:03 PM EDT) Free T4, Plasma 1.4 0.8 - 1.7 ng/dL 06/07/2025 6:[address] [facility] Blood Venous blood specimen / Unknown Venipuncture / Unknown 06/07/2025 1:03 PM EDT 06/07/2025 1:03 PM EDT Narrative [facility] - 06/07/2025 6:47 PM EDT Free T4 Trimester Specific Ranges 1st Trimester 0.9 - 1.50 ng/dL 2nd Trimester 0.7 - 1.40 ng/dL 3rd Trimester 0.7 - 1.24 ng/dL Rodolfo Rhoades MD LAB BLOOD ORDERABLES Final Res ult [facility] [address] [place] [address] * Comprehensive Metabolic Panel, Plasma (06/07/2025 1:03 PM EDT) Glucose, Plasma 82 74 - 99 mg/dL 06/07/2025 6:47 PM EDT [facility] BUN, Plasma 7 7 - 21 mg/dL 06/07/2025 6:47 PM EDT [facility] Creatinine, Plasma 0.74 0.60 - 1.10 mg/dL 06/07/2025 6:47 PM EDT [facility] BUN/Creatinine Ratio 9 06/07/2025 6:47 PM EDT [facility] Sodium, Plasma 137 136 - 145 mmol/L 06/07/2025 6:47 PM EDT [facility] Potassium, Plasma 4.0 3.6 - 4.9 mmol/L 06/07/2025 6:47 PM EDT [facility] Chloride, Plasma 103 97 - 107 mmol/L 06/07/2025 6:47 PM EDT [facility] CO2, Plasma 23 22 - 29 mmol/L 06/07/2025 6:47 PM EDT [facility] Anion Gap 11 6 - 16 mmol/L 06/07/2025 6:47 PM EDT [facility] Total Calcium, Plasma 9.6 8.9 - 10.2 mg/dL 06/07/2025 6:47 PM EDT [facility] Total Protein 7.8 6.3 - 7.9 g/dL 06/07/2025 6:47 PM EDT [facility] Albumin, Plasma 4.2 3.5 - 5.2 g/dL 06/07/2025 6:47 PM EDT [facility] AST, Plasma 26 10 - 35 U/L 06/07/2025 6:47 PM EDT [facility] ALT, Plasma 26 10 - 35 U/L 06/07/2025 6:47 PM EDT [facility] Alkaline Phosphatase, Plasma 104 35 - 104 U/L 06/07/2025 6:47 PM EDT [facility] Total Bilirubin, Plasma 0.3 0.2 - 1.1 mg/dL 06/07/2025 6:47 PM EDT [facility] eGFRcr 100.6 mL/min/1.7 3m*2 06/07/2025 6:47 PM EDT [facility] Comment:Reported eGFRcr in m L/min/1.73m2 is based the CKD-EPI 2020 equation that does not use a race coefficient. Blood Venous blood specimen / Unknown Venipuncture / Unknown 06/07/2025 1:03 PM EDT 06/07/2025 1:03 PM EDT Rodolfo Rhoades MD LAB BLOOD ORDERABLES Final Res ult [facility] [address] [place] [address] * Hemoglobin A1c (03/27/2025 12:35 PM EDT) Hemoglobin A1c 5.4 <5.7 % 03/28/2025 3:54 PM EDT [facility] Blood Venous blood specimen / Unknown Venipuncture / Unknown 03/27/2025 12:35 PM EDT 03/27/2025 12:35 PM EDT Narrative [facility] - 03/28/2025 3:54 PM EDT HA1C Interpretive Data: Diagnosis of Diabetes: Diabetic > or = 6.5% Pre-diabetic 5.7 to 6.4% Non-diabetic < or = 5.6% Glycemic Targets for Type I and Type II Diabetics: Non- Adults <7.0% Adults <6.0% Children and Adolescents <7.5% Source: [place] [employer]. Standards of medical care in diabetes,2017. Diabetes Care.2017:40 (suppl 1):S1-S135. Rodolfo Rhoades MD LAB BLOOD ORDERABLES Final Res ult Performing Organization Address [facility] Co de Phone Number [facility] [address] [place] [address] * Acute Hepatitis Panel (04/03/2021 11:21 AM EDT) Hepatitis B Surf Antigen NEGATIVE Reference Value: Negative SUNQUEST Hepatitis C Antibody NEGATIVE Reference Range: Negative SUNQUEST Hepatitis A Antibody IgM NEGATIVE Reference Value: Negative SUNQUEST External Hepatitis B Core IgM (HBCM) NEGATIVE Reference Value: Negative SUNQUEST 04/03/2021 11:2 1 AM EDT 04/03/2021 1:23 PM EDT Georgette Moore APRN LAB BLOOD ORDERABLES Final Result [facility]QUEST from Last 3 Months or Most Recently Relevant to Health Maintenance Insurance [facility] MED[facility] Care Teams [employer] Rep Relationship Specialty Start Date End Date Rodolfo Rhoades MD [address] [place] [address] PCP - General Family Medicine 02/02/25
--- OUTSIDE RECORDS SUMMARY | 2025-07-07 11:18 | XMS_ITS | Encounter Summary ---
Author Organization Healthcare Address [address] [place] [address] Care Team Providers Care Bottom Painter Name Role Phone Rodolfo Rhoades MD Primary Care Provider [phone] Reason for Visit * Reason Comments Med Refill Encounter Details Date Type Department Care Team (Late st Contact Info) Description 07/07/2025 Refill [facility] [address] [place] [address] Rodolfo Rhoades MD [address] [place] [address] Social History Tobacco Use Types [...] place to sleep or slept in a nursing home (including now)? No 07/25/2024 PHQ-9 Answer [...] any time in the past 12 m [facility], were you homeless or living in a nursing home (including now)? No 01/20/2025 Safety and [...] Description 07/21/2025 1:20 PM EDT Office Visit [facility] [address] [place] [address] Rodolfo [place] [address] documented as of this encounter [...] documented as of this encounter Care Teams Bottom Painter Relationship Specialty Start Date End Date Rodolfo Rhoades MD [address] [place] [address] PCP - General Family Medicine 02/02/25 documented as of this encounter
--- OUTSIDE RECORDS SUMMARY | 2025-07-07 11:18 | XMS_ITS | Clinical Summary ---
[facility] Organization [facility] Address [address] [place] [address] Care Team Providers Care Airfield Services Officer Name Role Phone Rodolfo Rhoades MD Primary Care Provider [phone] Allergies Active Allergy Reactions Criticality Noted Date [...] lateral wall. Normal LVEF. Cardiac cath at [facility] (04/2020): Normal coronary arteries. 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 Not on file Not [...] Info) Description 07/25/2025 10:30 AM EDT Appointment [facility] [address] [place] [address] 08/09/2025 10:15 AM EDT Office Visit [facility] [address] [facility] [address] Kathy Saavedra, DERRELL [address] [place] [address] Health Maintenance Due Date Last [...] SCREENING 03/20/2027 Medical Devices Implanted Type Area Manager Demand Device Identifier Shelf Expiration Date Model / Serial / Lot Vlv Aort Mech 19mm - [id number] - [id number] Implanted:Qty : 1 on 06/11/2021 by Taz Cespedes MD at [facility] Implant N/A: Heart [employer] [id number] 01/01/2025 [id number] / [id number] / Appl Clip Evelyn Atriclip Flx 35mm - [id number] Implanted:Qty : 1 on 06/11/2021 by Taz Cespedes MD at [facility] Implant N/A: Heart [employer] 02/29/2024 [id number] / [id number] Procedures Procedure Name Priority Date/Time Associated Diagnosis Comments LIPID PANEL STAT 04/19/2021 9:30 AM EDT from Last 3 Months or Most Recently Relevant to Health Maintenance Results * Lipid Panel (04/19/2021 9:30 AM EDT) Total Cholesterol 146 0 - 200 mg/dL 04/19/2021 10:14 AM EDT [facility] Triglycerides 67 0 - 150 mg/dL 04/19/2021 10:14 AM EDT [facility] HDL Cholesterol 58 40 - 60 mg/dL 04/19/2021 10:14 AM EDT [facility] LDL Cholesterol 75 0 - 100 mg/dL 04/19/2021 10:14 AM EDT [facility] VLDL Cholesterol 13 5 - 40 mg/dL 04/19/2021 10:14 AM EDT [facility] LDL/HDL Ratio 1.29 04/19/2021 10:14 AM EDT [facility] Blood Line / Unknown 04/19/2021 9: 30 AM EDT 04/19/2021 9:40 AM EDT [facility] - 04/19/2021 10:14 AM EDT Cholesterol [...] Saavedra APRN LAB BLOOD ORDERABLES Final Result [facility]
[address] [place] [address], from Last 3 Months or Most Recently [...] pulse or is breathing): Full Care Teams Airfield Services Officer Relationship Specialty Start Date End Date Rodolfo Rhoades MD [address] [place] [address] PCP - General Family Medicine 04/05/25
== END 2025-07-07 23:59 | disposition home or self-care (01) ==
LOC: RT 11:10
PROVIDERS: PCP Family Medicine; Visit Provider Internal Medicine
DX: I11.9 Hypertensive heart disease without heart failure (principal); I65.29 Occlusion and stenosis of unspecified carotid artery; I35.1 Nonrheumatic aortic (valve) insufficiency; R94.31 Abnormal electrocardiogram [ECG] [EKG]
CPT/HCPCS: 93308

== ENCOUNTER 2025-07-13 10:30 | Outpatient (CLI) | payer OTHER, SELFPAY ==
--- OUTSIDE RECORDS SUMMARY | 2025-06-07 11:40 | XMS_ITS | Encounter Summary ---
Author Organization Healthcare Address [address] [place] [address] Care Team Providers Care Tamper Operator Name Role Phone Rodolfo Rhoades MD Primary Care Provider [phone] Reason for Visit * Reason Comments Sinus [...] Description 06/07/2025 11:40 AM EDT Office Visit [facility] [address] [place] [address] Rodolfo Rhoades MD [address] [place] [address] Chronic fatigue (Primary Dx); Pulmonary emphysema, unspecified emphysema type (CMS/HCC); Essential hypertension; Vitamin D deficiency; Elevated LFTs; Bacterial sinusitis; Dysuria; Pitting edema; Low blood sugar Social History Tobacco Use Types Packs/Day Years Used Date Smoking Tobacco: Every Day Cigarettes 1 23.6 Started: 2001 Passive Smoke Exposure: Current Smokeless [...] place to sleep or slept in a half-way (including now)? No 07/25/2024 PHQ-9 Answer Date [...] any time in the past 12 m [facility], were you homeless or living in a half-way (including now)? No 01/20/2025 Safety and Environment [...] In the past 12 months has e electric, gas, oil, or water company [...] 1 Month) No 06/07/2025 12:01 PM EDT Fuentes Garrett 6. Suicidal Behavior (Lifetime) No 12:01 PM [...] Dysuria Pitting edema Note to patient: The 21st Century Cures Act makes medical notes like [...] Care Team (Late st Contact Info) Description 07/21/2025 1:20 PM EDT Office Visit [facility] [address] [place] [address] Rodolfo Rhoades MD [address] [place] [address] Scheduled Orders Name Type Priority [...] * Insulin, random (06/07/2025 1:03 PM EDT) [facility] Insulin 7.0 3.0 - 16.0 uU/mL 06/07/2025 7:08 PM EDT [facility] Blood Venous blood specimen / Unknown Venipuncture / Unknown 06/07/2025 1:03 PM EDT 06/07/2025 1:03 PM EDT Rodolfo Rhoades MD LAB BLOOD [place] [address] * C-peptide (06/07/2025 1:03 PM EDT) [facility] C Peptide 2.43 0.81 - 5.30 ng/mL 06/07/2025 7:08 PM EDT [facility] Blood Venous blood specimen / Unknown Venipuncture / Unknown 06/07/2025 1:03 PM EDT 06/07/2025 1:03 PM EDT Rodolfo Rhoades MD LAB BLOOD ORDERABLES Final Res ult Performing Organization Address City/[facility]/[place] [address] * N-Terminal Probnp, Plasma (06/07/2025 1:03 PM EDT) [facility] N-Terminal, PROBNP, Plasma 394 0 - 449 pg/mL 06/07/2025 6:47 PM EDT [facility] Blood Venous blood specimen / Unknown Venipuncture / Unknown 06/07/2025 1:03 PM EDT 06/07/2025 1:03 PM EDT Rodolfo Rhoades MD LAB BLOOD ORDERABLES Final Res ult Performing Organization Address City/[facility]/[place] [address] * Vitamin D 25 Hydroxy (06/07/2025 1:03 PM EDT) [facility] Vitamin D 25 Hydroxy 34.8 20.0 - 80.0 ng/mL 06/07/2025 7:03 PM EDT [facility] Blood Venous blood specimen / Unknown Venipuncture / Unknown 06/07/2025 1:03 PM EDT 06/07/2025 1:03 PM EDT Narrative [facility] - 06/07/2025 7:03 PM EDT Testing performed on Elizalde Rover Tender, standardized against NIST SRM 2972. When testing [...] MD LAB BLOOD ORDERABLES Final Res ult [facility] [address] [place] [address] * Urinalysis with reflex microscopic (Culture NOT Included) (06/07/2025 1:03 PM EDT) Color, Urine Yellow LAB URINALYSIS - AUTOMATED METHOD 06/07/2025 6:35 PM EDT [facility] Clarity, Urine Clear LAB URINALYSIS - AUTOMATED METHOD 06/07/2025 6:35 PM EDT [facility] Spec [place], Urine 1.010 1.005 - 1.030 LAB URINALYSIS - AUTOMATED METHOD 06/07/2025 6:35 PM EDT [facility] pH, Urine 6.0 5.0 - 8.0 LAB URINALYSIS - AUTOMATED METHOD 06/07/2025 6:35 PM EDT [facility] Protein, Urine Negative Negative mg/dL LAB URINALYSIS - AUTOMATED METHOD 06/07/2025 6:35 PM EDT [facility] Glucose, Urine Negative Negative mg/dL LAB URINALYSIS - AUTOMATED METHOD 06/07/2025 6:35 PM EDT [facility] Ketones, Urine Negative Negative mg/dL LAB URINALYSIS - AUTOMATED METHOD 06/07/2025 6:35 PM EDT [facility] Blood, Urine Negative Negative LAB URINALYSIS - AUTOMATED METHOD 06/07/2025 6:35 PM EDT [facility] Bilirubin, Urine Negative Negative LAB URINALYSIS - AUTOMATED METHOD 06/07/2025 6:35 PM EDT [facility] Urobilinogen, Urine 0.2 0.2 to 1.0 mg/dL LAB URINALYSIS - AUTOMATED METHOD 06/07/2025 6:35 PM EDT [facility] Leukocytes, Urine Negative Negative LAB URINALYSIS - AUTOMATED METHOD 06/07/2025 6:35 PM EDT [facility] Nitrite, Urine Negative Negative LAB URINALYSIS - AUTOMATED METHOD 06/07/2025 6:35 PM EDT [facility] Urine Urine specimen obtained by clean catch procedure / Unknown Non-blood Collection / Unknown 06/07/2025 1:03 PM EDT 06/07/2025 1:03 PM EDT us Rodolfo Rhoades MD LAB URINE ORDERABLES Final Res ult [facility] [address] [place] [address] * (ABNORMAL) CBC and Differential (06/07/2025 1:03 PM EDT) WBC Count 9.28 3.70 - 10.30 10*3/uL LAB HEMATOLOGY METHOD 06/07/2025 6:25 PM EDT [facility] RBC Count 4.66 3.90 - 5.20 10*6/uL LAB HEMATOLOGY METHOD 06/07/2025 6:25 PM EDT [facility] HGB 14.2 11.2 - 15.7 g/dL LAB HEMATOLOGY METHOD 06/07/2025 6:25 PM EDT [facility] HCT 44.1 34.0 - 45.0 % LAB HEMATOLOGY METHOD 06/07/2025 6:25 PM EDT [facility] Platelet Count 255 155 - 369 10*3/uL LAB HEMATOLOGY METHOD 06/07/2025 6:25 PM EDT [facility] MCV 95 79 - 98 fL LAB HEMATOLOGY METHOD 06/07/2025 6:25 PM EDT [facility] MCH 30.5 26.0 - 32.0 pg LAB HEMATOLOGY METHOD 06/07/2025 6:25 PM EDT [facility] MCHC 32.2 30.7 - 35.5 g/dL LAB HEMATOLOGY METHOD 06/07/2025 6:25 PM EDT [facility] RDW 13.5 11.5 - 14.5 % LAB HEMATOLOGY METHOD 06/07/2025 6:25 PM EDT [facility] MPV 10.2 8.8 - 12.5 fL LAB HEMATOLOGY METHOD 06/07/2025 6:25 PM EDT [facility] nRBC 0.0 <=0.0 per 100 WBCs LAB HEMATOLOGY METHOD 06/07/2025 6:25 PM EDT [facility] Differential Type Automated LAB HEMATOLOGY METHOD 06/07/2025 6:25 PM EDT [facility] Neutrophils % 57 % LAB HEMATOLOGY METHOD 06/07/2025 6:25 PM EDT [facility] Lymphocytes % 23 % LAB HEMATOLOGY METHOD 06/07/2025 6:25 PM EDT [facility] Monocytes % 9 % LAB HEMATOLOGY METHOD 06/07/2025 6:25 PM EDT [facility] Eosinophils % 9 % LAB HEMATOLOGY METHOD 06/07/2025 6:25 PM EDT [facility] Basophils % 1 % LAB HEMATOLOGY METHOD 06/07/2025 6:25 PM EDT [facility] Immature Granulocytes % 1 % LAB HEMATOLOGY METHOD 06/07/2025 6:25 PM EDT [facility] Neutrophils Absolute 5.43 1.60 - 6.10 10*3/uL LAB HEMATOLOGY METHOD 06/07/2025 6:25 PM EDT [facility] Lymphocytes Absolute 2.09 1.20 - 3.90 10*3/uL LAB HEMATOLOGY METHOD 06/07/2025 6:25 PM EDT [facility] Monocytes Absolute 0.80 0.30 - 0.90 10*3/uL LAB HEMATOLOGY METHOD 06/07/2025 6:25 PM EDT [facility] Eosinophils Absolute 0.85(H) 0.00 - 0.50 10*3/uL LAB HEMATOLOGY METHOD 06/07/2025 6:25 PM EDT [facility] Basophils Absolute 0.05 0.00 - 0.10 10*3/uL LAB HEMATOLOGY METHOD 06/07/2025 6:25 PM EDT [facility] Immature Granulocytes Absolute 0.06 0.00 - 0.06 10*3/uL LAB HEMATOLOGY METHOD 06/07/2025 6:25 PM EDT [facility] Blood Venous blood specimen / Unknown Venipuncture / Unknown 06/07/2025 1:03 PM EDT 06/07/2025 1:03 PM EDT Narrative [facility] - 06/07/2025 6:25 PM EDT Therapeutic decision making should be based on absolute values, rather than percentages. us Rodolfo Rhoades MD LAB BLOOD ORDERABLES Final Res ult [facility] [address] [place] [address] * Comprehensive Metabolic Panel, Plasma (06/07/2025 1:03 PM EDT) Glucose, Plasma 82 74 - 99 mg/dL 06/07/2025 6:47 PM EDT [facility] BUN, Plasma 7 7 - 21 mg/dL 06/07/2025 6:47 PM EDT [facility] Creatinine, Plasma 0.74 0.60 - 1.10 mg/dL 06/07/2025 6:47 PM EDT [facility] BUN/Creatinine Ratio 9 06/07/2025 6:47 PM EDT [facility] Sodium, Plasma 137 136 - 145 mmol/L 06/07/2025 6:47 PM EDT [facility] Potassium, Plasma 4.0 3.6 - 4.9 mmol/L 06/07/2025 6:47 PM EDT [facility] Chloride, Plasma 103 97 - 107 mmol/L 06/07/2025 6:47 PM EDT [facility] CO2, Plasma 23 22 - 29 mmol/L 06/07/2025 6:47 PM EDT [facility] Anion Gap 11 6 - 16 mmol/L 06/07/2025 6:47 PM EDT [facility] Total Calcium, Plasma 9.6 8.9 - 10.2 mg/dL 06/07/2025 6:47 PM EDT [facility] Total Protein 7.8 6.3 - 7.9 g/dL 06/07/2025 6:47 PM EDT [facility] Albumin, Plasma 4.2 3.5 - 5.2 g/dL 06/07/2025 6:47 PM EDT [facility] AST, Plasma 26 10 - 35 U/L 06/07/2025 6:47 PM EDT [facility] ALT, Plasma 26 10 - 35 U/L 06/07/2025 6:47 PM EDT [facility] Alkaline Phosphatase, Plasma 104 35 - 104 U/L 06/07/2025 6:47 PM EDT [facility] Total Bilirubin, Plasma 0.3 0.2 - 1.1 mg/dL 06/07/2025 6:47 PM EDT [facility] eGFRcr 100.6 mL/min/1.7 3m*2 06/07/2025 6:47 PM EDT [facility] Comment:Reported eGFRcr in m L/min/1.73m2 is based the CKD-EPI 2020 equation that does not use a race coefficient. Blood Venous blood specimen / Unknown Venipuncture / Unknown 06/07/2025 1:03 PM EDT 06/07/2025 1:03 PM EDT us Rodolfo Rhoades MD LAB BLOOD ORDERABLES Final Res ult [facility] [address] [place] [address] * Free T4, Plasma (06/07/2025 1:03 PM EDT) Free T4, Plasma 1.4 0.8 - 1.7 ng/dL 06/07/2025 6:47 PM EDT [facility] Blood Venous blood specimen / Unknown Venipuncture / Unknown 06/07/2025 1:03 PM EDT 06/07/2025 1:03 PM EDT Narrative [facility] - 06/07/2025 6:47 PM EDT Free T4 Trimester Specific Ranges 1st Trimester 0.9 - 1.50 ng/dL 2nd Trimester 0.7 - 1.40 ng/dL 3rd Trimester 0.7 - 1.24 ng/dL us Rodolfo Rhoades MD LAB BLOOD ORDERABLES Final Res ult Performing Organization Address City/[facility] Co de Phone Number [facility] [address] [place] [address] * Thyroid Stimulating Hormone, Plasma (06/07/2025 1:03 PM EDT) Thyroid Stimulating Hormone, Plasma 2.73 0.40 - 4.20 uIU/mL 06/07/2025 6:47 PM EDT [facility] Blood Venous blood specimen / Unknown Venipuncture / Unknown 06/07/2025 1:03 PM EDT 06/07/2025 1:03 PM EDT Narrative [facility] - 06/07/2025 6:47 PM EDT Trimester Specific Ranges TSH ( IU/mL) 1st Trimester 0.1 - 3.0 2nd Trimester 0.19 - 4.06 3rd Trimester 0.3 - 3.7 us Rodolfo Rhoades MD LAB BLOOD ORDERABLES Final Res ult Performing Organization Address City/[facility] Co de Phone Number [facility] [address] [place] [address] documented in this encounter Visit Diagnoses Diagnosis Chronic fatigue- Primary Other malaise and fatigue Pulmonary emphysema, unspecified emphysema type (CMS/HCC) Essential hypertension Unspecified essential hypertension Vitamin D deficiency Elevated LFTs Other abnormal blood chemistry Bacterial sinusitis Unspecified sinusitis (chronic) Dysuria Pitting edema Edema Low blood sugar Hypoglycemia, unspecified Low vitamin D level documented in this encounter Additional Health Concerns Assessment Noted Time PHQ-9 Depression Total Score: 0 11/16/20 24 11:05 AM EST A fall risk assessment has been complete d for the patient 03/19/2023 1:57 PM EDT A Body Mass Index follow-up plan has been documented for the patient 06/08/2025 12:14 AM EDT documented as of this encounter Care Teams Tamper Operator Relationship Specialty Start Date End Date Rodolfo Rhoades MD [facility] [place] [address] [address] PCP - General Family Medicine 02/02/25 documented as of this encounter
--- OUTSIDE RECORDS SUMMARY | 2025-07-13 10:34 | XMS_ITS | Encounter Summary ---
Author Organization Healthcare Address [address] [id number] Care Team Providers Care Lock Tender Name Role Phone MooreGeorgette johnson Court DOVE Primary Care Provider [phone] Veronica Goodwin LPN Unavailable Unavailable Margaret Ro Unavailable Unavailable Rodolfo Rhoades MD Primary Care Provider Encounter Details Date Type Department Care Team (Late Contact Info) Description 02/06/2022 Outside Procedure External Location [address] [place] [phone] Provider, [facility] Description 07/21/2025 1:20 PM EDT Office Visit [facility] [address] [place] [address] Rodolfo Rhoades MD [address] [place] [address] documented as of this encounter Procedures Procedure Name Priority Date/Time Associated Diagnosis Comments XR CERVICAL SPINE 2 OR 3 VIEWS 02/06/2022 2:09 PM EST documented in this encounter Results * XR Cervical Spine 2 or 3 Views (02/06/2022 2:09 PM EST) Anatomical Region Laterality Modality Spine, C-spine Radiographic Tierra ging 02/06/2022 2:09 PM EST Narrative 02/06/2022 3:21 [place] [address] Name: VERONICA ALVAREZ Exam Date: 02/06/2022 : 1975 Age 46 Gender: F Physician: HORACE RYAN Facility: [facility] Facility HSV: Outpatient Exam: CERVICAL SPINE 2 [...] [facility]. Legally authenticated by GADIEL DELEON 2022-02-06 15:08:51 Procedure Note Provider, Generic [facility] 02/06/2022 [place] [address] Name: VERONICA ALVAREZ Exam Date: 02/06/2022 : 1975 Age 46 Gender: F Physician: HORACE RYAN Facility: [facility] Facility HSV: Outpatient Exam: CERVICAL SPINE 2 [...] [facility]. Legally authenticated by GADIEL DELEON 2022-02-06 15:08:51 us Generic [facility] Provider IMG XR PROCEDURES Fi nal Result [...] documented as of this encounter Care Teams Lock Tender Relationship Specialty Start Date End Date Goergette Moore APRN [address] [place] [address] PCP - General 04/12/21 02/01/25 Rodolfo Rhoades MD [address] [place] [address] PCP - General Family Medicine 02/02/25 Veronica Goodwin LPN [employer] [place] [address] TCM Nurse 07/25/24 08/25/24 Margaret Ro Community Health Worker 07/27/24 4 documented as of this encounter
--- OUTSIDE RECORDS SUMMARY | 2025-07-13 10:34 | XMS_ITS | Encounter Summary ---
Author Organization Healthcare Address [address] [place] [address] Care Team Providers Care Derrick Barge Operator Name Role Phone Georgette Moore APRN Primary Care Provider [phone] Veronica Goodwin LPN Unavailable Unavailable Margaret Ro Unavailable Unavailable Rodolfo Rhoades MD Primary Care Provider [phone] Reason for Visit * Reason Comments Med Refill Encounter Details Date Type Department Care Team (Late st Contact Info) Description 05/13/2021 Refill [facility] [address] [place] [address] Georgette Moore APRN [address] [place] [address] Social History Tobacco Use Types [...] Description 07/21/2025 1:20 PM EDT Office Visit [facility] [address] [address] Rodolfo Rhoades [...] documented as of this encounter Care Teams Derrick Barge Operator Relationship Specialty Start Date End Date Georgette Moore APRN [address] [place] [address] PCP - General 04/12/21 02/01/25 Rodolfo Rhoades MD [address] [place] [address] PCP - General Family Medicine 02/02/25 Veronica Goodwin LPN [employer] [place] [address] TCM Nurse 07/25/24 08/25/24 Margaret Ro Community Health Worker 07/27/24 4 documented as of this encounter
--- OUTSIDE RECORDS SUMMARY | 2025-07-13 10:34 | XMS_ITS | Encounter Summary ---
Author Organization Healthcare Address [address] [id number] Care Team Providers Care Yard Driver Name Role Phone Rodolfo Rhoades MD Primary Care Provider [phone] Encounter Details Date Type Department Care Team (Late st Contact Info) Description 03/28/2025 Results Follow-Up [facility] [address] [place] [address] Rodolfo Rhoades MD [address] [place] [address] Social History Tobacco Use Types [...] place to sleep or slept in a fdc (including now)? No 07/25/2024 PHQ-9 Answer Date [...] time in the past 12 m [facility], were you homeless or living in a fdc (including now)? No 01/20/2025 Safety and Environment [...] Description 07/21/2025 1:20 PM EDT Office Visit [address] [address] Rodolfo Rhoades MD [address] [place] [address] documented as of this encounter Results * C-peptide (06/07/2025 1:03 PM EDT) C Peptide 2.43 0.81 - 5.30 ng/mL 06/07/2025 7:08 PM EDT [facility] Blood Venous blood specimen / Unknown Venipuncture / Unknown 06/07/2025 1:03 PM EDT 06/07/2025 1:03 PM EDT us Rodolfo Rhoades MD LAB BLOOD ORDERABLES Final Res ult Performing Organization Address [facility] Co de Phone Number [facility] [address] [place] [address] * Insulin, random (06/07/2025 1:03 PM EDT) Insulin 7.0 3.0 - 16.0 uU/mL 06/07/2025 7:08 PM EDT [facility] Blood Venous blood specimen / Unknown Venipuncture / Unknown 06/07/2025 1:03 PM EDT 06/07/2025 1:03 PM EDT Rodolfo Rhoades MD LAB BLOOD ORDERABLES Final Res ult [facility] [address] [place] [address] * Hemoglobin A1c (03/27/2025 12:35 PM EDT) Hemoglobin A1c 5.4 <5.7 % 03/28/2025 3:54 PM EDT [facility] Blood Venous blood specimen / Unknown Venipuncture / Unknown 03/27/2025 12:35 PM EDT 03/27/2025 12:35 PM EDT Narrative [facility] - 03/28/2025 3:54 PM EDT HA1C Interpretive Data: Diagnosis of Diabetes: Diabetic > or = 6.5% Pre-diabetic 5.7 to 6.4% Non-diabetic < or = 5.6% Glycemic Targets for Type I and Type II Diabetics: Non- Adults <7.0% Adults <6.0% Children and Adolescents <7.5% Source: [place] [employer]. Standards of medical care in diabetes,2017. Diabetes Care.2017:40 (suppl 1):S1-S135. us Rodolfo Rhoades MD LAB BLOOD ORDERABLES Final Res ult [facility] [address] [place] [address] documented in this encounter Visit Diagnoses Diagnosis Low blood sugar- Primary Hypoglycemia, unspecified Low vitamin D level documented [...] documented as of this encounter Care Teams Yard Driver Relationship Specialty Start Date End Date Rodolfo Rhoades MD [address] [place] [address] PCP - General Family Medicine 02/02/25 documented as of this encounter
--- OUTSIDE RECORDS SUMMARY | 2025-07-13 10:34 | XMS_ITS | Encounter Summary ---
Author Organization Healthcare Address [address] [place] [address] Care Team Providers Care Director Special Education Name Role Phone Georgette Moore APRN Primary Care Provider [phone] Veronica Goodwin LPN Unavailable Unavailable Margaret Ro Unavailable Unavailable Rodolfo Rhoades MD Primary Care Provider [phone] Reason for Visit * Reason Comments Med Refill Encounter Details Date Type Department Care Team (Late st Contact Info) Description 12/21/2021 Refill [facility] [address] [place] [address] Georgette Moore APRN [address] [place] [address] Chronic fatigue Social History Tobacco [...] Description 07/21/2025 1:20 PM EDT Office Visit [facility] [address] [place] [address] Rodolfo Rhoades MD [address] [place] [address] documented as of this encounter Visit Diagnoses Diagnosis Chronic fatigue Other malaise and fatigue Low vitamin D level documented in this [...] as of this encounter Care Teams Director Special Education Relationship Specialty Start Date End Date Georgette Moore APRN [address] [place] [address] PCP - General 04/12/21 02/01/25 Rodolfo Rhoades MD [address] [place] [address] PCP - General Family Medicine 02/02/25 Veronica Goodwin LPN [employer] [place] [address] TCM Nurse 07/25/24 08/25/24 Margaret Ro Community Health Worker 07/27/24 4 documented as of this encounter
--- OUTSIDE RECORDS SUMMARY | 2025-07-13 10:34 | XMS_ITS | Encounter Summary ---
Author Organization Healthcare Address [address] [id number] Care Team Providers Care Weather Reporter Name Role Phone Georgette Moore DERRELL Primary Care Provider [phone] BuddyHailey Blanche SCHULTZ Unavailable Unavailable Margaret Ro Unavailable Unavailable Rodolfo Rhoades MD Primary Care Provider [phone] Encounter Details Date Type Department Care Team (Late Contact Info) Description 07/22/2021 Outside Procedure External Location [address] [place] [phone] Irma Masterson MD [address] [place] [address] Social History Tobacco Use Types [...] Description 07/21/2025 1:20 PM EDT Office Visit [facility] [address] [place] [address] Rodolfo Rhoades MD [address] [facility] [place] [address] documented as of this encounter Procedures Procedure Name Priority Date/Time Associated Diagnosis Comments CT CHEST LIMITED HISTORICAL 07/22/2021 1:04 PM EDT documented in this encounter Results * CT Chest Limited Historical (07/22/2021 1:04 PM EDT) Anatomical Region Laterality Modality Chest Computed Tomogra phy 07/22/2021 1:04 PM EDT Narrative 07/22/2021 3:35 PM EDT [address] [place] [address] Name: HAILEY ALVAREZ Exam Date: 07/22/2021 : 1975 Age 45 Gender: F Physician: Irma Masterson Facility: [facility] Facility HSV: Outpatient Exam: CT CHEST [...] Thank you for referring HAILEY ALVAREZ to [facility]. Legally authenticated by POPE FUNMILAYO Almonte 2021-07-22 15:24:50 Procedure Note Provider, [facility] 07/22/2021 [facility] [address] [place] [address] Name: HAILEY ALVAREZ Exam Date: 07/22/2021 : 1975 Age 45 Gender: F Physician: Irma Masterson Facility: [facility] Facility HSV: Outpatient Exam: CT CHEST [...] Thank you for referring HAILEY ALVAREZ to [facility]. Legally authenticated by POPE FUNMILAYO Almonte [...] documented as of this encounter Care Teams Weather Reporter Relationship Specialty Start Date End Date Georgette Moore APRN [address] [place] [address] PCP - General 04/12/21 02/01/25 Rodolfo Rhoades MD [address] [place] [address] PCP - General Family Medicine 02/02/25 Hailey Goodwin LPN [employer] [place] [address] TCM Nurse 07/25/24 08/25/24 Margaret Ro Community Health Worker 07/27/24 4 documented as of this encounter
--- OUTSIDE RECORDS SUMMARY | 2025-07-13 10:34 | XMS_ITS | Encounter Summary ---
Author Organization Healthcare Address [address] [place] [address] Care Team Providers Care Cold Type Artist Name Role Phone Rodolfo Rhoades MD Primary Care Provider [phone] Reason for Visit * Reason Comments Med Refill Encounter Details Date Type Department Care Team (Late st Contact Info) Description 05/22/2025 Refill [facility] [address] [place] [address] Rodolfo Rhoades MD [address] [place] [address] Social History Tobacco Use Types [...] a long term (including now)? No 07/25/2024 PHQ-9 Answer Date [...] any time in the past 12 m [facility], were you homeless or living in a long term (including now)? No 01/20/2025 Safety and Environment [...] Description 07/21/2025 1:20 PM EDT Office Visit [facility] [address] [place] [address] Rodolfo Rhoades MD [address] [place] [address] documented as of this encounter [...] documented as of this encounter Care Teams Cold Type Artist Relationship Specialty Start Date End Date Rodolfo Rhoades MD [address] [place] [address] PCP - General Family Medicine 02/02/25 documented as of this encounter
--- OUTSIDE RECORDS SUMMARY | 2025-07-13 10:34 | XMS_ITS | Encounter Summary ---
Author Organization Healthcare Address [address] [id number] Care Team Providers Care Call Center Support Consultant Name Role Phone MooreGeorgette johnson Court DOVE Primary Care Provider [phone] Veronica Goodwin LPN Unavailable Unavailable Margaret Ro Unavailable Unavailable Rodolfo Rhoades MD Primary Care Provider [phone] Encounter Details Date Type Department Care Team (Late Contact Info) Description 02/06/2022 Outside Procedure External Location [address] [place] [phone] Provider, [facility] Social History Tobacco Use Types Packs/Day [...] Description 07/21/2025 1:20 PM EDT Office Visit [facility] [address] [place] [address] Rodolfo Rhoades MD [address] [place] [address] documented as of this encounter Procedures Procedure Name Priority Date/Time Associated Diagnosis Comments XR LUMBAR SPINE 2 OR 3 VIEWS 02/06/2022 2:09 PM EST documented in this encounter Results * XR Lumbar Spine 2 or 3 Views (02/06/2022 2:09 PM EST) Anatomical Region Laterality Modality Spine, L-spine Radiographic Tierra ging 02/06/2022 2:09 PM EST Narrative 02/06/2022 3:19 [place] [address] Name: VERONICA ALVAREZ Exam Date: 02/06/2022 : 1975 Age 46 Gender: F Physician: HORACE RYAN Facility: [facility] Facility HSV: Outpatient Exam: LUMBAR SPINE [...] DELEON 2022-02-06 15:07:32 Procedure Note Provider, Generic [facility] - 02/06/2022 [place] [address] Name: VERONICA ALVAREZ Exam Date: 02/06/2022 : 1975 Age 46 Gender: F Physician: HORACE RYAN Facility: [facility] Facility HSV: Outpatient Exam: LUMBAR SPINE [...] by GADIEL DELEON 2022-02-06 15:07:32 us Generic [facility] Provider IMG XR PROCEDURES Fi nal Result [...] documented as of this encounter Care Teams Call Center Support Consultant Relationship Specialty Start Date End Date Georgette Moore APRN [address] [place] [address] PCP - General 04/12/21 02/01/25 Rodolfo Rhoades MD [address] [place] [address] PCP - General Family Medicine 02/02/25 Veronica Goodwin LPN [employer] [place] [address] TCM Nurse 07/25/24 08/25/24 Margaret Ro Community Health Worker 07/27/24 4 documented as of this encounter
--- OUTSIDE RECORDS SUMMARY | 2025-07-13 10:34 | XMS_ITS | Encounter Summary ---
Author Organization Healthcare Address [address] [place] [address] Care Team Providers Care Conservation Technician Name Role Phone Georgette Moore APRN Primary Care Provider [phone] Rodolfo Rhoades MD Primary Care Provider [phone] Reason for Visit * Reason Comments Med Refill Encounter Details Date Type Department Care Team (Late st Contact Info) Description 11/28/2024 Refill [facility] [address] [place] [address] Imelda Burgos APRN [address] [place] [address] COPD exacerbation (CMS/HCC); Cough with [...] to sleep or slept in a senior care (including now)? No 07/25/2024 PHQ-9 Answer Date [...] the past 12 months has th e [employer], gas, oil, or water company threatened to [...] Description 07/21/2025 1:20 PM EDT Office Visit [facility] [address] [address] Rodolfo Rhoades MD [address] [address] documented as of this encounter Visit Diagnoses Diagnosis COPD exacerbation (CMS/HCC) Obstructive chronic bronchitis with exacerbation Cough with hemoptysis Low vitamin D level documented in this [...] documented as of this encounter Care Teams Conservation Technician Relationship Specialty Start Date End Date Georgette Moore APRN [address] [address] PCP - General 04/12/21 02/01/25 Rodolfo Rhoades MD [address] [address] PCP - General Family Medicine 02/02/25 documented as of this encounter
--- OUTSIDE RECORDS SUMMARY | 2025-07-13 10:34 | XMS_ITS | Encounter Summary ---
Author Organization Healthcare Address [address] [place] [address] Care Team Providers Care Mine Deputy Name Role Phone Rodolfo Rhoades MD Primary Care Provider [phone] Encounter Details Date Type Department Care Team [...] any time in the past 12 m [facility], were you homeless or living in a senior care (including now)? No 01/20/2025 Safety and Environment [...] the past 12 months has th e [employer], gas, oil, or water company threatened to [...] 1 Month) No 06/07/2025 12:01 PM EDT Fuentse Garrett 6. Suicidal Behavior (Lifetime) No 12:01 PM EDT Nathalie Garrett documented as of this encounter Plan of Treatment Upcoming Encounters Date Type Department Care Team (Late st Contact Info) Description 07/21/2025 1:20 PM EDT Office Visit [facility] [address] [place] [address] Rodolfo Rhoades MD [address] [place] [address] documented as of this encounter [...] documented as of this encounter Care Teams Mine Deputy Relationship Specialty Start Date End Date Rodolfo Rhoades MD [address] [place] [address] PCP - General Family Medicine 02/02/25 documented as of this encounter
--- OUTSIDE RECORDS SUMMARY | 2025-07-13 10:34 | XMS_ITS | Encounter Summary ---
Author Organization Healthcare Address [address] [id number] Care Team Providers Care Air Crew Officer Name Role Phone Rodolfo Rhoades MD Primary Care Provider [phone] Encounter Details Date Type Department Care Team (Late st Contact Info) Description 06/15/2025 Orders Only [facility] [address] [place] [address] Rodolfo Rhoades MD [address] [place] [address] Fungal infection (Primary Dx) Social [...] in a residential (including now)? No 07/25/2024 PHQ-9 Answer Date [...] any time in the past 12 m [facility], were you homeless or living in a residential (including now)? No 01/20/2025 Safety and Environment [...] Description 07/21/2025 1:20 PM EDT Office Visit [facility] [address] [place] [address] Rodolfo Rhoades [place] [address] documented as of this encounter Visit Diagnoses Diagnosis Fungal infection- Primary Other and unspecified mycoses Low vitamin D level documented in this encounter Additional Health Concerns Assessment Noted Time PHQ-9 Depression Total Score: 0 11/16/20 24 11:05 AM EST A fall risk assessment has been complete d for the patient 03/19/2023 1:57 PM EDT A Body Mass Index follow-up plan has been documented for the patient 06/08/2025 12:14 AM EDT documented as of this encounter Care Teams Air Crew Officer Relationship Specialty Start Date End Date Rodolfo Rhoades MD [address] [place] [address] PCP - General Family Medicine 02/02/25 documented as of this encounter
--- OUTSIDE RECORDS SUMMARY | 2025-07-13 10:34 | XMS_ITS | Encounter Summary ---
Author Organization Healthcare Address [address] [id number] Care Team Providers Care Well Logger Name Role Phone MooreGeorgette johnson Court DOVE Primary Care Provider [phone] Veronica Goodwin LPN Unavailable Unavailable Margaret Ro Unavailable Unavailable Rodolfo Rhoades MD Primary Care Provider [phone] Encounter Details Date Type Department Care Team (Late Contact Info) Description 02/06/2022 Outside Procedure External Location [address] [place] [phone] Provider, [facility] Social History Tobacco Use Types [...] Description 07/21/2025 1:20 PM EDT Office Visit [facility] [address] [place] [address] Rodolfo Rhoades MD [address] [place] [address] documented as of this encounter Procedures Procedure Name Priority Date/Time Associated Diagnosis Comments XR THORACIC SPINE 3 VIEWS 02/06/2022 2:09 PM EST documented in this encounter Results * XR Thoracic Spine 3 Views (02/06/2022 2:09 PM EST) Anatomical Region Laterality Modality Spine, T-spine Radiographic Tierra ging 02/06/2022 2:09 PM EST Narrative 02/06/2022 3:19 [place] [address] Name: VERONICA ALVAREZ Exam Date: 02/06/2022 : 1975 Age 46 Gender: F Physician: HORACE RYAN Facility: [facility] Facility HSV: Outpatient Exam: THORACIC SPINE 3V [...] ESTHER RAMESH 02/06/2022 Thank you for referring VEORNICA ALVAREZ to [facility]. Legally authenticated by GADIEL DELEON 2022-02-06 15:08:18 Procedure Note Provider, Generic [facility] - 02/06/2022 [place] [address] Name: VERONICA ALVAREZ Exam Date: 02/06/2022 : 1975 Age 46 Gender: F Physician: HORACE RYAN Facility: [facility] Facility HSV: Outpatient Exam: THORACIC SPINE 3V [...] Thank you for referring VERONICA ALVAREZ to [facility]. Legally authenticated by GADIEL DELEON 2022-02-06 15:08:18 us Generic [facility] Provider IMG XR PROCEDURES Fi nal Result [...] documented as of this encounter Care Teams Well Logger Relationship Specialty Start Date End Date Georgette Moore APRN [address] [place] [address] PCP - General 04/12/21 02/01/25 Rodolfo Rhoades MD [address] [place] [address] PCP - General Family Medicine 02/02/25 Veronica Goodwin LPN [employer] [address] TCM Nurse 07/25/24 08/25/24 Margaret Ro Community Health Worker 07/27/24 4 documented as of this encounter
--- OUTSIDE RECORDS SUMMARY | 2025-07-13 10:34 | XMS_ITS | Encounter Summary ---
Author Organization Healthcare Address [address] [place] [address] Care Team Providers Care Process Design Engineer Name Role Phone Rodolfo Rhoades MD Primary Care Provider [phone] Reason for Visit * Reason Onset Date Comments HCN - Patient Message 06/15/2025 Encounter Details Date Type Department Care Team (Late st Contact Info) Description 06/15/2025 Telephone [facility] [address] [place] [address] Rodolfo Rhoades MD [address] [place] [address] HCN - Patient Message Social [...] optimal time of day to reach caller: [phone] Note: Please do not reply to this [...] Description 07/21/2025 1:20 PM EDT Office Visit [facility] [address] [place] [address] Rodolfo [place]oades [place] [address] documented as of this encounter Visit [...] documented as of this encounter Care Teams Process Design Engineer Relationship Specialty Start Date End Date Rodolfo Rhoades MD [address] [place] [address] PCP - General Family Medicine 02/02/25 documented as of this encounter
--- OUTSIDE RECORDS SUMMARY | 2025-07-13 10:35 | XMS_ITS | Clinical Summary ---
Author Organization Healthcare Address [address] [place] [address] Care Team Providers Care Range Technician Name Role Phone Rodolfo Rhoades MD Primary Care Provider [phone] Allergies Active Allergy Reactions Criticality Noted Date [...] Summary. 30 tablet 1 01/07/20 23 Active fluticasone (Flonase) 50 MCG/ACT nasal sprayIndication [...] mg) by mouth daily. 10/26/20 24 Active dilTIAZem CD (Cardizem CD) 120 MG 24 hr capsule Take 1 capsule (120 mg) by mouth daily. 30 capsule 01/24/20 25 Active Additional Information Patient not taking.Reported on [...] symptoms persist. 2 tablet 06/15/20 25 Active alendronate (Fosamax) 70 MG tabletIndicatio ns:Low vitamin D level TAKE 1 TABLET BY MOUTH ONCE EVERY 7 DAYS ON AN EMPTY STOMACH WITH A FULL GLASS OF WATER. DO NOT LIE DOWN OR TAKE ANYTHING ELSE FOR 30 MINUTES 4 tablet 07/10/20 25 Active Stiolto Respimat 2.5-2.5 MCG/ACT aerosol solution inhaler INHALE 2 PUFFS BY MOUTH ONCE A DAY 4 g 07/10/20 25 Active alendronate (Fosamax) 70 MG tabletIndicatio ns:Low vitamin D level Take 1 tablet (70 mg) by mouth every 7 (seven) days. Take in the morning with a full glass of water, on an empty stomach, and do not take anything else by mouth or lie down for the next 30 min. 12 tablet 3 07/25/20 24 025 Discontinued ergocalciferol (Vitamin D-2) 1.25 MG (47819 UT) capsule Take 1 capsule (50,000 Units) by mouth 1 (one) time per week. 12 capsule 1 01/24/20 25 025 tiotropium-olod aterol (Stiolto Respimat) 2.5-2.5 MCG/ACT aerosol solution inhaler Inhale 2 Inhalations daily. 4 g 05/24/20 25 025 Discontinued amoxicillin-cla vulanate (Augmentin) 875-125 MG tabletIndicatio ns:Bacterial sinusitis,Dysur ia Take 1 tablet by mouth 2 times a day for 10 days. 20 tablet 06/07/20 25 025 Active Problems Problem Noted Date Diagnosed [...] Encounters Date Type Department Care Team Description 07/09/2025 Refill [facility] [address] [place] [address] Rodolfo Rhoades MD 07/07/2025 Refill [facility] [address] [place] [address] Rodolfo Rhoades MD 07/07/2025 Refill [facility] [address] [place] [address] Jocelyn Velez, STRATEGIC ACCOUNTS MANAGER, DNP Low vitamin D level 07/05/2025 Telephone [facility] [address] [place] [address] Rodolfo Rhoades MD HCN Clinical Concern/Question 06/15/2025 Orders Only [facility] [address] [place] [address] Rodolfo Rhoades MD Fungal infection (Primary Dx) 06/15/2025 Telephone [facility] [address] [place] [address] Rodolfo Rhoades MD HCN - Patient Message 06/07/2025 11:40 AM EDT Office Visit [facility] [address] [place] [address] Rodolfo Rhoades MD Chronic fatigue (Primary Dx); Pulmonary emphysema, unspecified emphysema type (CMS/HCC); Essential hypertension; Vitamin D deficiency; Elevated LFTs; Bacterial sinusitis; Dysuria; Pitting edema; Low blood sugar 06/07/2025 Travel 05/22/2025 Refill [facility] [address] [place] [address] Rodolfo Rhoades MD 04/19/2025 Education [facility] [address] [place] [address] Gerard Perez RN 04/14/2025 Telephone [facility] [address] [place] [address] Rodolfo Rhoades MD HCN - Patient Message from Last 3 Months Immunizations Immunization Administration Dates Next Due Influenza, injectable, quadrivalent 12/17/2016 Influenza, injectable, quadr ivalent, preservative free 09/20/2020 Influenza, seasonal, injecta ble, preservative free 12/17/2016 [employer] COVID-19 Vac cine (Purple Cap) 12+ 11/27/2021,04/05/2021,03/08/2021 [...] place to sleep or slept in a custodial (including now)? No 07/25/2024 PHQ-9 Answer Date [...] any time in the past 12 m [facility], were you homeless or living in a custodial (including now)? No 01/20/2025 Safety and Environment [...] Recorded In the past 12 months has [employer], gas, oil, or water company threatened to [...] Description 07/21/2025 1:20 PM EDT Office Visit [facility] [address] [place] [address] Rodolfo Rhoades MD [address] [...] 2022 Sigmoidoscopy 2022 [facility]-Colorectal Cancer Screening 2022 ZXR-ILANH-17 Vaccine (2023- season) 2024 11/27/2021, 04/05/2021, 03/08/2021 [facility]-Infant/Child/Adol SDOH [...] - 449 pg/mL 06/07/2025 6:47 PM EDT [facility] Blood Venous blood specimen / Unknown Venipuncture / Unknown 06/07/2025 1:03 PM EDT 06/07/2025 1:03 PM EDT us Rodolfo Rhoades MD LAB BLOOD ORDERABLES Final Res ult [facility] [address] [place] [address] * Insulin, random (06/07/2025 1:03 PM EDT) Insulin 7.0 3.0 - 16.0 uU/mL 06/07/2025 7:08 PM EDT [facility] Blood Venous blood specimen / Unknown Venipuncture / Unknown 06/07/2025 1:03 PM EDT 06/07/2025 1:03 PM EDT us Rodolfo Rhoades MD LAB BLOOD ORDERABLES Final Res ult Performing Organization Address [facility] Co de Phone Number [facility] [address] [place] [address] * Vitamin D 25 Hydroxy (06/07/2025 1:03 PM EDT) Vitamin D 25 Hydroxy 34.8 20.0 - 80.0 ng/mL 06/07/2025 7:03 PM EDT [facility] Blood Venous blood specimen / Unknown Venipuncture / Unknown 06/07/2025 1:03 PM EDT 06/07/2025 1:03 PM EDT Narrative [facility] - 06/07/2025 7:03 PM EDT Testing performed on Elizalde Dietetics Teacher, standardized against NIST SRM 2972. When testing [...] MD LAB BLOOD ORDERABLES Final Res ult [facility] [address] [place] [address] * C-peptide (06/07/2025 1:03 PM EDT) C Peptide 2.43 0.81 - 5.30 ng/mL 06/07/2025 7:08 PM EDT [facility] Blood Venous blood specimen / Unknown Venipuncture / Unknown 06/07/2025 1:03 PM EDT 06/07/2025 1:03 PM EDT us Rodolfo Rhoades MD LAB BLOOD ORDERABLES Final Res ult Performing Organization Address [facility]/ZIP Co de Phone Number [facility] [address] [place] [address] * Urinalysis with reflex microscopic (Culture NOT Included) (06/07/2025 1:03 PM EDT) Color, Urine Yellow LAB URINALYSIS - AUTOMATED METHOD 06/07/2025 6:35 PM EDT [facility] Clarity, Urine Clear LAB URINALYSIS - AUTOMATED METHOD 06/07/2025 6:35 PM EDT [facility] Spec [place], Urine 1.010 1.005 - 1.030 LAB URINALYSIS - AUTOMATED METHOD 06/07/2025 6:35 PM EDT [facility] pH, Urine 6.0 5.0 - 8.0 LAB URINALYSIS - AUTOMATED METHOD 06/07/2025 6:35 PM EDT [facility] Protein, Urine Negative Negative mg/dL LAB URINALYSIS - AUTOMATED METHOD 06/07/2025 6:35 PM EDT [facility] Glucose, Urine Negative Negative mg/dL LAB URINALYSIS - AUTOMATED METHOD 06/07/2025 6:35 PM EDT [facility] Ketones, Urine Negative Negative mg/dL LAB URINALYSIS - AUTOMATED METHOD 06/07/2025 6:35 PM EDT [facility] Blood, Urine Negative Negative LAB URINALYSIS - AUTOMATED METHOD 06/07/2025 6:35 PM EDT [facility] Bilirubin, Urine Negative Negative LAB URINALYSIS - AUTOMATED METHOD 06/07/2025 6:35 PM EDT [facility] Urobilinogen, Urine 0.2 0.2 to 1.0 mg/dL LAB URINALYSIS - AUTOMATED METHOD 06/07/2025 6:35 PM EDT [facility] Leukocytes, Urine Negative Negative LAB URINALYSIS - AUTOMATED METHOD 06/07/2025 6:35 PM EDT [facility] Nitrite, Urine Negative Negative LAB URINALYSIS - AUTOMATED METHOD 06/07/2025 6:35 PM EDT [facility] Urine Urine specimen obtained by clean catch procedure / Unknown Non-blood Collection / Unknown 06/07/2025 1:03 PM EDT 06/07/2025 1:03 PM EDT us Rodolfo Rhoades MD LAB URINE ORDERABLES Final Res ult [facility] [address] [place] [address] * (ABNORMAL) CBC and Differential (06/07/2025 1:03 PM EDT) WBC Count 9.28 3.70 - 10.30 10*3/uL LAB HEMATOLOGY METHOD 06/07/2025 6:25 PM EDT [facility] RBC Count 4.66 3.90 - 5.20 10*6/uL LAB HEMATOLOGY METHOD 06/07/2025 6:25 PM EDT [facility] HGB 14.2 11.2 - 15.7 g/dL LAB HEMATOLOGY METHOD 06/07/2025 6:25 PM EDT [facility] HCT 44.1 34.0 - 45.0 % LAB HEMATOLOGY METHOD 06/07/2025 6:25 PM EDT [facility] Platelet Count 255 155 - 369 10*3/uL LAB HEMATOLOGY METHOD 06/07/2025 6:25 PM EDT [facility] MCV 95 79 - 98 fL LAB HEMATOLOGY METHOD 06/07/2025 6:25 PM EDT [facility] MCH 30.5 26.0 - 32.0 pg LAB HEMATOLOGY METHOD 06/07/2025 6:25 PM EDT [facility] MCHC 32.2 30.7 - 35.5 g/dL LAB HEMATOLOGY METHOD 06/07/2025 6:25 PM EDT [facility] RDW 13.5 11.5 - 14.5 % LAB HEMATOLOGY METHOD 06/07/2025 6:25 PM EDT [facility] MPV 10.2 8.8 - 12.5 fL LAB HEMATOLOGY METHOD 06/07/2025 6:25 PM EDT [facility] nRBC 0.0 <=0.0 per 100 WBCs LAB HEMATOLOGY METHOD 06/07/2025 6:25 PM EDT [facility] Differential Type Automated LAB HEMATOLOGY METHOD 06/07/2025 6:25 PM EDT [facility] Neutrophils % 57 % LAB HEMATOLOGY METHOD 06/07/2025 6:25 PM EDT [facility] Lymphocytes % 23 % LAB HEMATOLOGY METHOD 06/07/2025 6:25 PM EDT [facility] Monocytes % 9 % LAB HEMATOLOGY METHOD 06/07/2025 6:25 PM EDT [facility] Eosinophils % 9 % LAB HEMATOLOGY METHOD 06/07/2025 6:25 PM EDT [facility] Basophils % 1 % LAB HEMATOLOGY METHOD 06/07/2025 6:25 PM EDT [facility] Immature Granulocytes % 1 % LAB HEMATOLOGY METHOD 06/07/2025 6:25 PM EDT [facility] Neutrophils Absolute 5.43 1.60 - 6.10 10*3/uL LAB HEMATOLOGY METHOD 06/07/2025 6:25 PM EDT [facility] Lymphocytes Absolute 2.09 1.20 - 3.90 10*3/uL LAB HEMATOLOGY METHOD 06/07/2025 6:25 PM EDT [facility] Monocytes Absolute 0.80 0.30 - 0.90 10*3/uL LAB HEMATOLOGY METHOD 06/07/2025 6:25 PM EDT [facility] Eosinophils Absolute 0.85(H) 0.00 - 0.50 10*3/uL LAB HEMATOLOGY METHOD 06/07/2025 6:25 PM EDT [facility] Basophils Absolute 0.05 0.00 - 0.10 10*3/uL LAB HEMATOLOGY METHOD 06/07/2025 6:25 PM EDT [facility] Immature Granulocytes Absolute 0.06 0.00 - 0.06 10*3/uL LAB HEMATOLOGY METHOD 06/07/2025 6:25 PM EDT [facility] Blood Venous blood specimen / Unknown Venipuncture / Unknown 06/07/2025 1:03 PM EDT 06/07/2025 1:03 PM EDT [facility] - 06/07/2025 6:25 PM EDT Therapeutic decision making should be based on absolute values, rather than percentages. Rodolfo Rhoades MD LAB BLOOD ORDERABLES Final Res ult Performing Organization Address [facility] [place] [address] * Thyroid Stimulating Hormone, Plasma (06/07/2025 1:03 PM EDT) Thyroid Stimulating Hormone, Plasma 2.73 0.40 - 4.20 uIU/mL 06/07/2025 6:47 PM EDT [facility] Blood Venous blood specimen / Unknown Venipuncture / Unknown 06/07/2025 1:03 PM EDT 06/07/2025 1:03 PM EDT [facility] - 06/07/2025 6:47 PM EDT Trimester Specific Ranges TSH ( IU/mL) 1st Trimester 0.1 - 3.0 2nd Trimester 0.19 - 4.06 3rd Trimester 0.3 - 3.7 us Rodolfo Rhoades MD LAB BLOOD ORDERABLES Final Res ult Performing Organization Address [facility] [place] [address] * Free T4, Plasma (06/07/2025 1:03 PM EDT) Free T4, Plasma 1.4 0.8 - 1.7 ng/dL 06/07/2025 6:47 PM EDT [facility] Blood Venous blood specimen / Unknown Venipuncture / Unknown 06/07/2025 1:03 PM EDT 06/07/2025 1:03 PM EDT [facility] - 06/07/2025 6:47 PM EDT Free T4 Trimester Specific Ranges 1st Trimester 0.9 - 1.50 ng/dL 2nd Trimester 0.7 - 1.40 ng/dL 3rd Trimester 0.7 - 1.24 ng/dL us Rodolfo Rhoades MD LAB BLOOD ORDERABLES Final Res ult [facility] [address] [place] [address] * Comprehensive Metabolic Panel, Plasma (06/07/2025 1:03 PM EDT) Glucose, Plasma 82 74 - 99 mg/dL 06/07/2025 6:47 PM EDT [facility] BUN, Plasma 7 7 - 21 mg/dL 06/07/2025 6:47 PM EDT [facility] Creatinine, Plasma 0.74 0.60 - 1.10 mg/dL 06/07/2025 6:47 PM EDT [facility] BUN/Creatinine Ratio 9 06/07/2025 6:47 PM EDT [facility] Sodium, Plasma 137 136 - 145 mmol/L 06/07/2025 6:47 PM EDT [facility] Potassium, Plasma 4.0 3.6 - 4.9 mmol/L 06/07/2025 6:47 PM EDT [facility] Chloride, Plasma 103 97 - 107 mmol/L 06/07/2025 6:47 PM EDT [facility] CO2, Plasma 23 22 - 29 mmol/L 06/07/2025 6:47 PM EDT [facility] Anion Gap 11 6 - 16 mmol/L 06/07/2025 6:47 PM EDT [facility] Total Calcium, Plasma 9.6 8.9 - 10.2 mg/dL 06/07/2025 6:47 PM EDT [facility] Total Protein 7.8 6.3 - 7.9 g/dL 06/07/2025 6:47 PM EDT [facility] Albumin, Plasma 4.2 3.5 - 5.2 g/dL 06/07/2025 6:47 PM EDT [facility] AST, Plasma 26 10 - 35 U/L 06/07/2025 6:47 PM EDT [facility] ALT, Plasma 26 10 - 35 U/L 06/07/2025 6:47 PM EDT [facility] Alkaline Phosphatase, Plasma 104 35 - 104 U/L 06/07/2025 6:47 PM EDT [facility] Total Bilirubin, Plasma 0.3 0.2 - 1.1 mg/dL 06/07/2025 6:47 PM EDT [facility] eGFRcr 100.6 mL/min/1.7 3m*2 06/07/2025 6:47 PM EDT [facility] Comment:Reported eGFRcr in m L/min/1.73m2 is based the CKD-EPI 2020 equation that does not use a race coefficient. Blood Venous blood specimen / Unknown Venipuncture / Unknown 06/07/2025 1:03 PM EDT 06/07/2025 1:03 PM EDT us Rodolfo Rhoades MD LAB BLOOD ORDERABLES Final Res ult Performing Organization Address [facility] Co de Phone Number [facility] [address] [place] [address] * Hemoglobin A1c (03/27/2025 12:35 PM EDT) Hemoglobin A1c 5.4 <5.7 % 03/28/2025 3:54 PM EDT [facility] Blood Venous blood specimen / Unknown Venipuncture / Unknown 03/27/2025 12:35 PM EDT 03/27/2025 12:35 PM EDT Narrative [facility] - 03/28/2025 3:54 PM EDT HA1C Interpretive Data: Diagnosis of Diabetes: Diabetic > or = 6.5% Pre-diabetic 5.7 to 6.4% Non-diabetic < or = 5.6% Glycemic Targets for Type I and Type II Diabetics: Non- Adults <7.0% Adults <6.0% Children and Adolescents <7.5% Source: [place] [employer]. Standards of medical care in diabetes,2017. Diabetes Care.2017:40 (suppl 1):S1-S135. us Rodolfo Rhoades MD LAB BLOOD ORDERABLES Final Res ult Performing Organization Address [facility] Co de Phone Number [facility] [address] [place] [address] * Acute Hepatitis Panel (04/03/2021 11:21 AM EDT) Hepatitis B Surf Antigen NEGATIVE Reference Value: Negative SUNQUEST Hepatitis C Antibody NEGATIVE Reference Range: Negative SUNQUEST Hepatitis A Antibody IgM NEGATIVE Reference Value: Negative [facility]QUEST External Hepatitis B Core IgM (HBCM) NEGATIVE Reference Value: Negative [facility]QUEST 04/03/2021 11:2 1 AM EDT 04/03/2021 1:23 PM EDT us Georgette Moore STRATEGIC ACCOUNTS MANAGER LAB BLOOD ORDERABLES Final Result SUNQUEST from Last 3 Months or Most Recently Relevant to Health Maintenance Insurance [employer] [facility] MEDICAID Care Teams Range Technician Relationship Specialty Start Date End Date Rodolfo Rhoades MD [address] [place] [address] PCP - General Family Medicine 02/02/25
--- OUTSIDE RECORDS SUMMARY | 2025-07-13 10:35 | XMS_ITS | Encounter Summary ---
Author Organization Healthcare Address [address] [place] [address] Care Team Providers Care Occupational Medicine Specialist Name Role Phone Rodolfo Rhoades MD Primary Care Provider Reason for Visit * Reason Comments Med Refill Encounter Details Date Type Department Care Team (Late st Contact Info) Description 07/09/2025 Refill [facility] [address] [place] [address] Rodolfo Rhoades MD [address] [place] [address] Social History Tobacco Use Types [...] any time in the past 12 m [facility], were you homeless or [...] encounter Miscellaneous Notes * Telephone Encounter - Brian Frost PharmD - 07/10/2025 2:00 PM EDT 1 medication(s) has been approved per protocol. Please keep upcoming appointment for additional refills. Medications have been pended for refill atupcoming appointment. documented in this encounter Plan of Treatment Upcoming Encounters Date Type Department Care Team (Late st Contact Info) Description 07/21/2025 1:20 PM EDT Office Visit [facility] [place] [address] [place] [address] Rodolfo Rhoades MD [address] [place] [address] documented as of this encounter [...] documented as of this encounter Care Teams Occupational Medicine Specialist Relationship Specialty Start Date End Date Rodolfo Rhoades MD [address] [place] [address] PCP - General Family Medicine 02/02/25 documented as of this encounter
--- OUTSIDE RECORDS SUMMARY | 2025-07-13 10:35 | XMS_ITS | Encounter Summary ---
Author Organization Healthcare Address [address] [place] [address] Care Team Providers Care Garment Alteration Examiner Name Role Phone Rodolfo Rhoades MD Primary Care Provider [phone] Reason for Visit * Reason Onset Date Comments HCN Clinical Concern/Question 07/06/2025 Encounter Details Date Type Department Care Team (Late st Contact Info) Description 07/05/2025 Telephone [facility] [address] [place] [address] Rodolfo Rhoades MD [address] [place] [address] HCN Clinical Concern/Question Social History [...] back and informed of information from Dr. Rhoades and if she can make it in [...] clinic, returning Mindy's call. Best contact number: [phone] (home) Optimal time of day to reach [...] will receive notification of the communication/outcome via [employer]. * Telephone Encounter - Mindy Gudino - 07/06/2025 8:57 AM EDT Called left vm. * Telephone Encounter - Jayde Treadwell - 07/05/2025 3:14 PM EDT Clinical Concern/Question Reason for Call: Pt wants to let know that she missed her appt today because she doesn't have any transportation and she couldn't call until now to [facility] because her phone got cut off. She says she's still having the swelling and now she's having a burning feeling in her legs and feet. She's taking her water pills and trying to keep her feet elevated when she can. Is there anything can recommend? She can't come back until 07/21 due to transportation. Pls advise. Thanks. Best contact number: [phone] (home) Optimal time of day to reach caller: ANYTIME Additional comments/information from caller: None Note: Please do not reply to this message. Follow-up communication and further actions as a result of this message need to be communicated with the patient directly, if the patient is not active onMyChart. If the patient is active on MyChart, they will receive notification of the communication/outcome via [employer] documented in this encounter Plan of Treatment Upcoming Encounters Date Type Department Care Team (Late st Contact Info) Description 07/21/2025 1:20 PM EDT Office Visit [facility] [address] [place] [address] Rodolfo Rhoades MD [address] [place] [address] documented as of this encounter [...] documented as of this encounter Care Teams Garment Alteration Examiner Relationship Specialty Start Date End Date Rodolfo Rhoades MD [address] [place] [address] PCP - General Family Medicine 02/02/25 documented as of this encounter
--- OUTSIDE RECORDS SUMMARY | 2025-07-13 10:35 | XMS_ITS | Encounter Summary ---
Author Organization Healthcare Address [address] [place] [address] Care Team Providers Care Waste Transportation Technician Name Role Phone Rodolfo Rhoades MD Primary Care Provider [phone] Reason for Visit * Reason Onset Date Comments HCN - Patient Message 04/14/2025 Encounter Details Date Type Department Care Team (Late st Contact Info) Description 04/14/2025 Telephone [facility] [address] [place] [address] Rodolfo Rhoades MD [address] [place] [address] HCN - Patient Message Social [...] place to sleep or slept in a assisted (including now)? No 07/25/2024 PHQ-9 Answer Date [...] in the past 12 m [facility], were you homeless or living in a assisted (including now)? No 01/20/2025 Safety and Environment [...] and optimal time of day to reach caller:[phone] Note: Please do not reply to this [...] Description 07/21/2025 1:20 PM EDT Office Visit [facility] [place] [address] [place] [address] [address] documented as of this encounter [...] documented as of this encounter Care Teams Waste Transportation Technician Relationship Specialty Start Date End Date Rodolfo Rhoades MD [address] [place] [address] PCP - General Family Medicine 02/02/25 documented as of this encounter
--- OUTSIDE RECORDS SUMMARY | 2025-07-13 10:35 | XMS_ITS | Encounter Summary ---
Author Organization Healthcare Address [address] [id number] Care Team Providers Care Case Liner Name Role Phone Georgette Moore APRN Primary Care Provider [phone] Veronica Goodwin LPN Unavailable Unavailable Margaret Ro Unavailable Unavailable Rodolfo Rhoades MD Primary Care Provider [phone] Encounter Details Date Type Department Care Team (Late st Contact Info) Description 07/22/2024 Outside Procedure External Location [address] [place] [id number] Provider, Swapnil Monique Social History Tobacco Use [...] in a usp (including now)? No 07/25/2024 Safety and Environment [...] Office Visit [facility] [address] [place] [address] Rodolfo Rhoades MD [address] [place] [address] documented as of this encounter Procedures Procedure Name Priority Date/Time Associated Diagnosis Comments ECHO, ADULT TRANSTHORACIC COMPLETE W/ COLOR AND DOPPLER 07/22/2024 6:31 AM EDT documented in this encounter Results * Echo, Adult Transthoracic Complete w/ Color and Doppler (07/22/2024 6:31 AM EDT) Anatomical Region Laterality Modality Ultrasound 07/22/2024 6:31 AM EDT Narrative 07/22/2024 12:07 PM EDT [address] [address] Name: VERONICA ALVAREZ Exam Date: 07/22/2024 : 1975 Age 48 years Gender: F Physician: VICTORIANO REYES Facility: [facility] Facility HSV: Inpatient Exam: ECHO W [...] stenosis with a valve area of 0.85 spotter (Peak grad=45mmHg, Mean grad=24mmHg, LVOT grady=2.10cm, LVOT TVI=19.3cm, Ao TVI=79.0cm). The dimensionless index is 0.24. AV peak rodzhlvd=860ij/sec. There is a Mechanical AV prosthesis. (Peak [...] for referring VERONICA ALVAREZ to [facility]. Legally authenticated by CINDY JORDAN 2024-07-22 12:04:58 Procedure Note Provider, Generic [place] - 07/22/[address] [id number] Name: VERONICA ALVAREZ Exam Date: 07/22/2024 : 1975 Age 48 years Gender: F Physician: VICTORIANO REYES Facility: [facility] Facility HSV: Inpatient Exam: ECHO W [...] stenosis with a valve area of 0.85 spotter (Peak grad=45mmHg, Mean grad=24mmHg, LVOT grady=2.10cm, LVOT TVI=19.3cm, Ao TVI=79.0cm). The dimensionless index is 0.24. AV peak vwgtotgp=664rt/sec. There is a Mechanical AV prosthesis. (Peak [...] for referring VERONICA ALVAREZ to [facility]. Legally authenticated by CINDY JORDAN 2024-07-22 12:04:58 Generic [place] Provider CV ECHO PROCEDURES F inal Result [...] as of this encounter Care Teams Case Liner Relationship Specialty Start Date End Date Georgette Moore APRN [address] [place] [id number] PCP - General 04/12/21 02/01/25 Rodolfo Rhoades MD [address] [place] [address] PCP - General Family Medicine 02/02/25 Veronica Goodwin LPN VALUE-BASED [place] [address] TCM Nurse 07/25/24 08/25/24 Margaret Ro Community Health Worker 07/27/24 4 documented as of this encounter
--- OUTSIDE RECORDS SUMMARY | 2025-07-13 10:35 | XMS_ITS | Encounter Summary ---
Author Organization Healthcare Address [address] [id number] Care Team Providers Care Marketing Rotation Associate Name Role Phone Georgette Moore APRN Primary Care Provider [phone] Veronica Goodwin LPN Unavailable Unavailable Margaret Ro Unavailable Unavailable Rodolfo Rhoades MD Primary Care Provider [phone] Encounter Details Date Type Department Care Team (Late st Contact Info) Description 07/21/2024 Outside Procedure External Location [address] [place] [id number] Provider, Swapnil Monique Social History Tobacco Use [...] in a fdc (including now)? No 07/25/2024 Safety and Environment [...] Description 07/21/2025 1:20 PM EDT Office Visit [facility] [place] [address] [place] [address] [place] [address] documented as of this encounter Procedures Procedure Name Priority Date/Time Associated Diagnosis Comments XR CHEST 1 VIEW 07/21/2024 4:03 PM EDT documented in this encounter Results * XR Chest 1 View (07/21/2024 4:03 PM EDT) Anatomical Region Laterality Modality Chest Digital Radiogra phy 07/21/2024 4:03 PM EDT Narrative 07/21/2024 4:31 [place] [address] Name: VERONICA ALVAREZ Exam Date: 07/21/2024 : 1975 Age 48 years Gender: F Physician: PAOLA PIZARRO Facility: [facility] Facility HSV: Outpatient Exam: CHEST PORTABLE [...] Thank you for referring VERONICA ALVAREZ to [facility]. Legally authenticated by NATALIE CULVER 2024-07-21 16:12:48 Procedure Note Provider, Swapnil Monique - 07/21/[id number] [place] [address] Name: VERONICA ALVAREZ Exam Date: 07/21/2024 : 1975 Age 48 years Gender: F Physician: PAOLA PIZARRO Facility: [facility] Facility HSV: Outpatient Exam: CHEST PORTABLE [...] Thank you for referring VERONICA ALVAREZ to [facility]. Legally authenticated by NATALIE CULVER 2024-07-21 16:12:48 Generic [facility] Provider IMG XR PROCEDURES Fi nal Result [...] documented as of this encounter Care Teams Marketing Rotation Associate Relationship Specialty Start Date End Date Georgette Moore APRN [address] [place] [address] PCP - General 04/12/21 02/01/25 Rodolfo Rhoades MD [address] [place] [address] PCP - General Family Medicine 02/02/25 Veronica Goodwin LPN VALUE-BASED [place] [address] TCM Nurse 07/25/24 08/25/24 Margraet Ro Community Health Worker 07/27/24 4 documented as of this encounter
--- OUTSIDE RECORDS SUMMARY | 2025-07-13 10:35 | XMS_ITS | Encounter Summary ---
Author Organization Healthcare Address [address] [place] [address] Care Team Providers Care Director Case Name Role Phone Rodolfo Rhoades MD Primary Care Provider [phone] Reason for Visit * Reason Comments Med Refill Encounter Details Date Type Department Care Team (Late st Contact Info) Description 07/07/2025 Refill [facility] [address] [place] [address] Rodolfo Rhoades MD [address] [place] [address] Social History Tobacco Use Types [...] any time in the past 12 m [facility], were you homeless or living in a detention (including now)? No 01/20/2025 Safety and Environment [...] Telephone Encounter - Bri Jung LPN - 07/10/2025 9:38 AM EDT Lmtrc x2 * Telephone Encounter - Bri Jung LPN - 07/07/2025 2:56 PM EDT Lmtrc x 1 Last Vit D level was normal. Pt can just take OTC now. documented in this encounter Plan of Treatment Upcoming Encounters Date Type Department Care Team (Late st Contact Info) Description 07/21/2025 1:20 PM EDT Office Visit [facility] [address] [place] [address] Rodolfo Rhoades MD [address] [place] [address] documented as of this encounter [...] as of this encounter Care Teams Director Case Relationship Specialty Start Date End Date Rodolfo Rhoades MD [address] [place] [address] PCP - General Family Medicine 02/02/25 documented as of this encounter
--- OUTSIDE RECORDS SUMMARY | 2025-07-13 10:35 | XMS_ITS | Encounter Summary ---
Author Organization Healthcare Address [address] [place] [address] Care Team Providers Care Fire Pilot Name Role Phone Rodolfo Rhoades MD Primary Care Provider [phone] Reason for Visit * Reason Comments Med Refill Encounter Details Date Type Department Care Team (Late st Contact Info) Description 07/07/2025 Refill [facility] [address] [place] [address] Jocelyn Velez, JOCKEY'S AGENT, DNP [address] [place] [address] Low vitamin D level Social [...] any time in the past 12 m [facility], were you homeless or living in [...] Encounter - Brian Frost PharmD - 07/10/2025 1:59 PM EDT 1 medication(s) has been approved per protocol. Please keep upcoming appointment for additional refills. Medications have been pended for refill atupcoming appointment. documented in this encounter Plan of Treatment Upcoming Encounters Date Type Department Care Team (Late st Contact Info) Description 07/21/2025 1:20 PM EDT Office Visit [facility] [place] [address] Rodolfo Rhoades MD [address] [place] [address] documented as of this encounter Visit Diagnoses Diagnosis Low vitamin D level Low vitamin D level documented in this encounter Additional Health Concerns Assessment Noted Time PHQ-9 Depression Total Score: 0 11/16/20 24 11:05 AM EST A fall risk assessment has been complete d for the patient 03/19/2023 1:57 PM EDT A Body Mass Index follow-up plan has been documented for the patient 06/08/2025 12:14 AM EDT documented as of this encounter Care Teams Fire Pilot Relationship Specialty Start Date End Date Rodolfo Rhoades MD [address] [place] [address] PCP - General Family Medicine 02/02/25 documented as of this encounter
--- OUTSIDE RECORDS SUMMARY | 2025-07-13 10:35 | XMS_ITS | Clinical Summary ---
[facility] [address] [place] [address] Care Team Providers Care Strategic Account Director Name Role Phone Rodolfo Rhoades MD Primary Care Provider [phone] Allergies Active Allergy Reactions Criticality Noted Date [...] lateral wall. Normal LVEF. Cardiac cath at [facility] (04/2020): Normal coronary arteries. 2+ AI [...] Immunizations Immunization Administration Dates Next Due COVID-19 ([place]) Purple Cap Monovalent 04/05/20 21,03/08/2021 Fluzone >6mos [...] help finding or keeping work or a rfeda b? 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 on file Not [...] Info) Description 07/25/2025 10:30 AM EDT Appointment [facility] [address] [place] [address] 08/09/2025 10:15 AM EDT Office Visit [facility] [address] [facility] [place] [address] Kathy Saavedra, DERRELL [address] [place] [address] Health Maintenance Due Date Last [...] SCREENING 03/20/2027 Medical Devices Implanted Type Area Block Chopper Hand Device Identifier Shelf Expiration Date Model / Serial / Lot Vlv Aort Mech 19mm - [id number] - [id number] Implanted:Qty : 1 on 06/11/2021 by Taz Cespedes MD at [facility] Implant N/A: Heart [employer] [id number] 01/01/2025 [id number] / [id number] / Appl Clip Evelyn Atriclip Flx 35mm - [id number] Implanted:Qty : 1 on 06/11/2021 by Taz Cespedes MD at [facility] Implant N/A: Heart [employer] 02/29/2024 [id number] / [id number] Procedures Procedure Name Priority Date/Time Associated Diagnosis Comments LIPID PANEL STAT 04/19/2021 9:30 AM EDT from Last 3 Months or Most Recently Relevant to Health Maintenance Results * Lipid Panel (04/19/2021 9:30 AM EDT) Total Cholesterol 146 0 - 200 mg/dL 04/19/2021 10:14 AM EDT [facility] Triglycerides 67 0 - 150 mg/dL 04/19/2021 10:14 AM EDT [facility] HDL Cholesterol 58 40 - 60 mg/dL 04/19/2021 10:14 AM EDT [facility] LDL Cholesterol 75 0 - 100 mg/dL 04/19/2021 10:14 AM EDT [facility] VLDL Cholesterol 13 5 - 40 mg/dL 04/19/2021 10:14 AM EDT [facility] LDL/HDL Ratio 1.29 04/19/2021 10:14 AM EDT [facility] Blood Line / Unknown 04/19/2021 9: 30 AM EDT 04/19/2021 9:40 AM EDT [facility] - 04/19/2021 10:14 AM EDT Cholesterol [...] Saavedra APRN LAB BLOOD ORDERABLES Final Result [facility]
[address] [place] [address], from Last 3 Months or Most Recently [...] pulse or is breathing): Full Care Teams Strategic Account Director Relationship Specialty Start Date End Date Rodolfo Rhoades MD [address] [place] [address] PCP - General Family Medicine 04/05/25
[2025-07-13 13:05] LABS: PHA INR Fingerstick 2.6 (0.9-1.1)
== END 2025-07-13 13:09 ==
LOC: ACC 10:30
PROVIDERS: PCP Family Medicine; Visit Provider Nurse Practitioner Family
DX: I35.1 Nonrheumatic aortic (valve) insufficiency (principal); I10 Essential (primary) hypertension; I65.29 Occlusion and stenosis of unspecified carotid artery; F17.200 Nicotine dependence, unspecified, uncomplicated; R40.0 Somnolence; R94.31 Abnormal electrocardiogram [ECG] [EKG]; R53.83 Other fatigue; Z95.2 Presence of prosthetic heart valve
CPT/HCPCS: 85610; 99211; G0463

== ENCOUNTER 2025-08-02 21:02 | Emergency (ER) | payer OTHER, SELFPAY ==
--- OUTSIDE RECORDS SUMMARY | 2025-06-07 11:40 | XMS_ITS | Encounter Summary ---
Author Organization [facility] Address [address] [place] [address] Care Team Providers Care [employer] Other Ranks Name Role Phone Rodolfo Rhoades MD Primary Care Provider [phone] Reason for Visit * Reason Comments Sinus Problem Pt thinks she has a sinus infection, nose will run randomly, headache, sore throat,also think she has uti, pt has frequent urination , pt did at home test and was positive and did the test yesterday, pt also requesting blood work, stays exhausted and in pain Encounter Details Date Type Department Care Team (Late st Contact Info) Description 06/07/2025 11:40 AM EDT Office Visit [facility] [address] [place] [address] Rodolfo Rhoades MD [address] [place] [address] Chronic fatigue (Primary Dx); Pulmonary emphysema, unspecified emphysema type (CMS/HCC); Essential hypertension; Vitamin D deficiency; Elevated LFTs; Bacterial sinusitis; Dysuria; Pitting edema; Low blood sugar Social History Tobacco Use Types Packs/Day Years Used Date Smoking Tobacco: Every Day Cigarettes 1 23.7 Started: 2001 Passive Smoke Exposure: Current Smokeless [...] any time in the past 12 m [facility], were you homeless or living in [...] Recorded In the past 12 months has [employer], gas, oil, or water company threatened [...] Sign Reading Time Taken Comments Blood Pressure 130/88 06/07/2025 11:56 AM EDT Pulse 69 06/07/2025 11:56 AM EDT Temperature 37.1 C (98.7 F) 06/07/2025 11:56 AM EDT Respiratory Rate 18 06/07/2025 11:5 6 AM EDT Oxygen Saturation 99% 06/07/2025 11: 56 AM EDT Inhaled Oxygen Concentration - - Weight 50.7 kg (111 lb 11.2 oz) 025 11:56 AM EDT Height 162.6 cm (5' 4 ) 06/07/2025 11:5 6 AM EDT Body Mass Index 19.17 06/07/2025 11:56 AM EDT documented in this encounter Functional Status * Calculated C-SSRS Risk Score (Lifetime/Recent) Answer Date of Assessment Author No Risk Indicated 06/07/2025 12:01 PM EDT Nathalie Duval * Question Answer Date of Assessment Author 1. Wish to be (Past 1 Month) No 025 12:01 PM EDT Nathalie Garrett 2. Non-Specific Active Suici omar Thoughts (Past 1 Month) No 06/07/2025 12:01 PM EDT Gerry, K arlee R 6. Suicidal Behavior (Lifetime) No 12:01 PM EDT Nathalie Garrett documented as of this encounter Miscellaneous Notes * Progress Notes - Rodolfo Rhoades MD - 06/07/2025 11:40 AM EDT Subjective Patient ID: Veronica Weiss is a 49 y.o. female. Chief Complaint Patient presents with Sinus Problem Pt thinks she has a sinus infection, nose will run randomly, headache, sore throat,also think she has uti, pt has frequent urination , pt did at home test and was positive and did the test yesterday,pt also requesting blood work, stays exhausted and in pain Sinus Problem Pertinent negatives include no coughing, headaches or shortness of breath. Has been having trouble with burning with urination that restarted recently. Has also been having sinus symptoms for a few weeks with recent flare up in symptoms of sinus pressure and colored discharged. Also feeling more achy recently. Has been struggling with increased leg swelling and leg pains. Did notice improvement with megace and was feeling much better with consistent use. She did run outof the medication and hasn't taken in more than a month. Patient reports fatigue with concerns that her [...] 55-60%. Had a negative stress test 08/31/24. Has COPD on Stiolto. Has nocturnal hypoxia on night time oxygen. The following portions of the chart were reviewed this encounter and updated as appropriate: Tobacco Allergies Meds Problems Med Hx Surg Hx Fam Hx Review of Systems Constitutional: Positive for fatigue. Negative for fever. Respiratory: Negative for cough and shortness of breath. Cardiovascular: Positive for leg swelling. Negative for chest pain. Musculoskeletal: Negative for arthralgias. Neurological: Negative for headaches. Objective Physical Exam Constitutional: General: She is not in acute distress. Appearance: Normal appearance. She is well-developed. She is not ill-appearing. HENT: Head: Normocephalic and atraumatic. Right Ear: Tympanic membrane, ear canal and external ear normal. There is no impacted cerumen. Left Ear: Tympanic membrane, ear canal and external ear normal. There is no impacted cerumen. Nose: Congestion and rhinorrhea present. Cardiovascular: Rate and Rhythm: Normal rate and regular rhythm. Pulses: Normal pulses. Heart sounds: Normal heart sounds. No murmur heard. Pulmonary: Effort: Pulmonary effort is normal. No respiratory distress. Breath sounds: Normal breath sounds. No wheezing or rhonchi. Neurological: General: No focal deficit present. Mental Status: She is alert. Mental status is at baseline. Psychiatric: Mood and Affect: Mood normal. Behavior: Behavior normal. Assessment/Plan Assessment & Plan Chronic fatigue Pulmonary emphysema, unspecified emphysema type (CMS/HCC) Essential hypertension Vitamin D deficiency Elevated LFTs Bacterial sinusitis Dysuria Pitting edema Note to patient: The Century Cures Act makes medical notes like these [...] Care Team (Late st Contact Info) Description 08/09/2025 11:40 AM EDT Office Visit [facility] [address] [place] [address] Rodolfo Rhoades MD [address] [place] [address] 08/11/2025 10:40 AM EDT Office Visit [facility] [address] [place] [address] Rodolfo Rhoades MD [address] [place] [address] Scheduled Orders Name Type Priority Associated Diagnoses Orde r Schedule Urine Culture Microbiology Routine Dysuria Ordered: 06/07/2025 documented as of this encounter Procedures Procedure Name Priority Date/Time Associated Diagnosis Comments N-TERMINAL PROBNP, PLASMA Routine 06/07/2025 1:03 PM EDT Pitting edema INSULIN, RANDOM Routine 06/07/2025 1:03 PM EDT Low blood sugar VITAMIN D 25 HYDROXY Routine 06/07/2025 1:03 PM EDT Vitamin D deficiency C-PEPTIDE Routine 06/07/2025 1:03 PM EDT Low blood sugar URINALYSIS WITH REFLEX MICROSCOPIC Routine 06/07/2025 1:03 PM EDT Essential hypertension Dysuria CBC WITH AUTO DIFFERENTIAL Routine 06/07/2025 1:03 PM EDT Essential hypertension TSH Routine 06/07/2025 1:03 PM EDT Chronic fatigue FREE T4, PLASMA Routine 06/07/2025 1:03 PM EDT Chronic fatigue COMPREHENSIVE METABOLIC PANEL, PLASMA Routine 06/07/2025 1:03 PM EDT Essential hypertension Elevated LFTs documented in this encounter Results * Insulin, random (06/07/2025 1:03 PM EDT) Pathologist [facility] Insulin 7.0 3.0 - 16.0 uU/mL 06/07/2025 7:08 PM EDT [facility] Blood Venous blood specimen / Unknown Venipuncture / Unknown 06/07/2025 1:03 PM EDT 06/07/2025 1:03 PM EDT Rodolfo Rhoades MD LAB BLOOD ORDERABLES Final Res ult Performing Organization Address [facility]/ZIP Co de Phone Number [facility] [address] [place] [address] * C-peptide (06/07/2025 1:03 PM EDT) [facility] C Peptide 2.43 0.81 - 5.30 ng/mL 06/07/2025 7:08 PM EDT [facility] Blood Venous blood specimen / Unknown Venipuncture / Unknown 06/07/2025 1:03 PM EDT 06/07/2025 1:03 PM EDT Rodolfo Rhoades MD LAB BLOOD ORDERABLES Final Res ult Performing Organization Address City/[facility]/ZIP Co de Phone Number [facility] [address] [place] [address] * N-Terminal Probnp, Plasma (06/07/2025 1:03 PM EDT) [facility] N-Terminal, PROBNP, Plasma 394 0 - 449 pg/mL 06/07/2025 6:47 PM EDT [facility] Blood Venous blood specimen / Unknown Venipuncture / Unknown 06/07/2025 1:03 PM EDT 06/07/2025 1:03 PM EDT us Rodolfo Rhoades MD LAB BLOOD ORDERABLES Final Res ult Performing Organization Address [facility] Co de Phone Number [facility] [address] [place] [address] * Vitamin D 25 Hydroxy (06/07/2025 1:03 PM EDT) Vitamin D 25 Hydroxy 34.8 20.0 - 80.0 ng/mL 06/07/2025 7:03 PM EDT [facility] Blood Venous blood specimen / Unknown Venipuncture / Unknown 06/07/2025 1:03 PM EDT 06/07/2025 1:03 PM EDT Narrative [facility] - 06/07/2025 7:03 PM EDT Testing performed on Elizal[employer], standardized against NIST SRM 2972. When testing [...] ORDERABLES Final Res ult Performing Organization Address [facility] Co de Phone Number [facility] [address] [place] [address] * Urinalysis with reflex microscopic (Culture NOT Included) (06/07/2025 1:03 PM EDT) Color, Urine Yellow LAB URINALYSIS - AUTOMATED METHOD 06/07/2025 6:35 PM EDT [facility] Clarity, Urine Clear LAB URINALYSIS - AUTOMATED METHOD 06/07/2025 6:35 PM EDT [facility] Spec [place], Urine 1.010 1.005 - 1.030 LAB URINALYSIS - AUTOMATED METHOD 06/07/2025 6:35 PM EDT [facility] pH, Urine 6.0 5.0 - 8.0 LAB URINALYSIS - AUTOMATED METHOD 06/07/2025 6:35 PM EDT [facility] Protein, Urine Negative Negative mg/dL LAB URINALYSIS - AUTOMATED METHOD 06/07/2025 6:35 PM EDT [facility] Glucose, Urine Negative Negative mg/dL LAB URINALYSIS - AUTOMATED METHOD 06/07/2025 6:35 PM EDT [facility] Ketones, Urine Negative Negative mg/dL LAB URINALYSIS - AUTOMATED METHOD 06/07/2025 6:35 PM EDT [facility] Blood, Urine Negative Negative LAB URINALYSIS - AUTOMATED METHOD 06/07/2025 6:35 PM EDT [facility] Bilirubin, Urine Negative Negative LAB URINALYSIS - AUTOMATED METHOD 06/07/2025 6:35 PM EDT [facility] Urobilinogen, Urine 0.2 0.2 to 1.0 mg/dL LAB URINALYSIS - AUTOMATED METHOD 06/07/2025 6:35 PM EDT [facility] Leukocytes, Urine Negative Negative LAB URINALYSIS - AUTOMATED METHOD 06/07/2025 6:35 PM EDT [facility] Nitrite, Urine Negative Negative LAB URINALYSIS - AUTOMATED METHOD 06/07/2025 6:35 PM EDT [facility] Urine Urine specimen obtained by clean catch procedure / Unknown Non-blood Collection / Unknown 06/07/2025 1:03 PM EDT 06/07/2025 1:03 PM EDT us Rodolfo Rhoades MD LAB URINE ORDERABLES Final Res ult [facility] [address] [place] [address] * (ABNORMAL) CBC and Differential (06/07/2025 1:03 PM EDT) WBC Count 9.28 3.70 - 10.30 10*3/uL LAB HEMATOLOGY METHOD 06/07/2025 6:25 PM EDT [facility] RBC Count 4.66 3.90 - 5.20 10*6/uL LAB HEMATOLOGY METHOD 06/07/2025 6:25 PM EDT [facility] HGB 14.2 11.2 - 15.7 g/dL LAB HEMATOLOGY METHOD 06/07/2025 6:25 PM EDT [facility] HCT 44.1 34.0 - 45.0 % LAB HEMATOLOGY METHOD 06/07/2025 6:25 PM EDT [facility] Platelet Count 255 155 - 369 10*3/uL LAB HEMATOLOGY METHOD 06/07/2025 6:25 PM EDT [facility] MCV 95 79 - 98 fL LAB HEMATOLOGY METHOD 06/07/2025 6:25 PM EDT [facility] MCH 30.5 26.0 - 32.0 pg LAB HEMATOLOGY METHOD 06/07/2025 6:25 PM EDT [facility] MCHC 32.2 30.7 - 35.5 g/dL LAB HEMATOLOGY METHOD 06/07/2025 6:25 PM EDT [facility] RDW 13.5 11.5 - 14.5 % LAB HEMATOLOGY METHOD 06/07/2025 6:25 PM EDT [facility] MPV 10.2 8.8 - 12.5 fL LAB HEMATOLOGY METHOD 06/07/2025 6:25 PM EDT [facility] nRBC 0.0 <=0.0 per 100 WBCs LAB HEMATOLOGY METHOD 06/07/2025 6:25 PM EDT [facility] Differential Type Automated LAB HEMATOLOGY METHOD 06/07/2025 6:25 PM EDT [facility] Neutrophils % 57 % LAB HEMATOLOGY METHOD 06/07/2025 6:25 PM EDT [facility] Lymphocytes % 23 % LAB HEMATOLOGY METHOD 06/07/2025 6:25 PM EDT [facility] Monocytes % 9 % LAB HEMATOLOGY METHOD 06/07/2025 6:25 PM EDT [facility] Eosinophils % 9 % LAB HEMATOLOGY METHOD 06/07/2025 6:25 PM EDT [facility] Basophils % 1 % LAB HEMATOLOGY METHOD 06/07/2025 6:25 PM EDT [facility] Immature Granulocytes % 1 % LAB HEMATOLOGY METHOD 06/07/2025 6:25 PM EDT [facility] Neutrophils Absolute 5.43 1.60 - 6.10 10*3/uL LAB HEMATOLOGY METHOD 06/07/2025 6:25 PM EDT [facility] Lymphocytes Absolute 2.09 1.20 - 3.90 10*3/uL LAB HEMATOLOGY METHOD 06/07/2025 6:25 PM EDT [facility] Monocytes Absolute 0.80 0.30 - 0.90 10*3/uL LAB HEMATOLOGY METHOD 06/07/2025 6:25 PM EDT [facility] Eosinophils Absolute 0.85(H) 0.00 - 0.50 10*3/uL LAB HEMATOLOGY METHOD 06/07/2025 6:25 PM EDT [facility] Basophils Absolute 0.05 0.00 - 0.10 10*3/uL LAB HEMATOLOGY METHOD 06/07/2025 6:25 PM EDT [facility] Immature Granulocytes Absolute 0.06 0.00 - 0.06 10*3/uL LAB HEMATOLOGY METHOD 06/07/2025 6:25 PM EDT [facility] Blood Venous blood specimen / Unknown Venipuncture / Unknown 06/07/2025 1:03 PM EDT 06/07/2025 1:03 PM EDT Narrative [facility] - 06/07/2025 6:25 PM EDT Therapeutic decision making should be based on absolute values, rather than percentages. us Rodolfo Rhoades MD LAB BLOOD ORDERABLES Final Res ult [facility] [address] [place] [address] * Comprehensive Metabolic Panel, Plasma (06/07/2025 1:03 PM EDT) Glucose, Plasma 82 74 - 99 mg/dL 06/07/2025 6:47 PM EDT [facility] BUN, Plasma 7 7 - 21 mg/dL 06/07/2025 6:47 PM EDT [facility] Creatinine, Plasma 0.74 0.60 - 1.10 mg/dL 06/07/2025 6:47 PM EDT [facility] BUN/Creatinine Ratio 9 06/07/2025 6:47 PM EDT [facility] Sodium, Plasma 137 136 - 145 mmol/L 06/07/2025 6:47 PM EDT [facility] Potassium, Plasma 4.0 3.6 - 4.9 mmol/L 06/07/2025 6:47 PM EDT [facility] Chloride, Plasma 103 97 - 107 mmol/L 06/07/2025 6:47 PM EDT [facility] CO2, Plasma 23 22 - 29 mmol/L 06/07/2025 6:47 PM EDT [facility] Anion Gap 11 6 - 16 mmol/L 06/07/2025 6:47 PM EDT [facility] Total Calcium, Plasma 9.6 8.9 - 10.2 mg/dL 06/07/2025 6:47 PM EDT [facility] Total Protein 7.8 6.3 - 7.9 g/dL 06/07/2025 6:47 PM EDT [facility] Albumin, Plasma 4.2 3.5 - 5.2 g/dL 06/07/2025 6:47 PM EDT [facility] AST, Plasma 26 10 - 35 U/L 06/07/2025 6:47 PM EDT [facility] ALT, Plasma 26 10 - 35 U/L 06/07/2025 6:47 PM EDT [facility] Alkaline Phosphatase, Plasma 104 35 - 104 U/L 06/07/2025 6:47 PM EDT [facility] Total Bilirubin, Plasma 0.3 0.2 - 1.1 mg/dL 06/07/2025 6:47 PM EDT [facility] eGFRcr 100.6 mL/min/1.7 3m*2 06/07/2025 6:47 PM EDT [facility] Comment:Reported eGFRcr in m L/min/1.73m2 is based the CKD-EPI 2020 equation that does not use a race coefficient. Blood Venous blood specimen / Unknown Venipuncture / Unknown 06/07/2025 1:03 PM EDT 06/07/2025 1:03 PM EDT us Rodolfo Rhoades MD LAB BLOOD ORDERABLES Final Res ult [facility] [address] [place] [address] * Free T4, Plasma (06/07/2025 1:03 PM EDT) Free T4, Plasma 1.4 0.8 - 1.7 ng/dL 06/07/2025 6:47 PM EDT [facility] Blood Venous blood specimen / Unknown Venipuncture / Unknown 06/07/2025 1:03 PM EDT 06/07/2025 1:03 PM EDT Narrative [facility] - 06/07/2025 6:47 PM EDT Free T4 Trimester Specific Ranges 1st Trimester 0.9 - 1.50 ng/dL 2nd Trimester 0.7 - 1.40 ng/dL 3rd Trimester 0.7 - 1.24 ng/dL Rodolfo Rhoades MD LAB BLOOD ORDERABLES Final Res ult Performing Organization Address [facility]/ZIP Co de Phone Number [facility] [address] [place] [address] * Thyroid Stimulating Hormone, Plasma (06/07/2025 1:03 PM EDT) Thyroid Stimulating Hormone, Plasma 2.73 0.40 - 4.20 uIU/mL 06/07/2025 6:47 PM EDT [facility] Blood Venous blood specimen / Unknown Venipuncture / Unknown 06/07/2025 1:03 PM EDT 06/07/2025 1:03 PM EDT Narrative [facility] - 06/07/2025 6:47 PM EDT Trimester Specific Ranges TSH ( IU/mL) 1st Trimester 0.1 - 3.0 2nd Trimester 0.19 - 4.06 3rd Trimester 0.3 - 3.7 Rodolfo Rhoades MD LAB BLOOD ORDERABLES Final Res ult [facility] [address] [place] [address] documented in this encounter Visit Diagnoses Diagnosis Chronic fatigue- Primary Other malaise and fatigue Pulmonary emphysema, unspecified emphysema type (CMS/HCC) Essential hypertension Unspecified essential hypertension Vitamin D deficiency Elevated LFTs Other abnormal blood chemistry Bacterial sinusitis Unspecified sinusitis (chronic) Dysuria Pitting edema Edema Low blood sugar Hypoglycemia, unspecified documented in this encounter Additional Health Concerns Assessment Noted Time PHQ-9 Depression Total Score: 0 11/16/20 24 11:05 AM EST A fall risk assessment has been complete d for the patient 03/19/2023 1:57 PM EDT A Body Mass Index follow-up plan has been documented for the patient 06/08/2025 12:14 AM EDT documented as of this encounter Care Teams [employer] Other Ranks Relationship Specialty Start Date End Date Rodolfo Rhoades MD [address] [place] [address] PCP - General Family Medicine 02/02/25 documented as of this encounter
--- OUTSIDE RECORDS SUMMARY | 2025-07-14 10:40 | XMS_ITS | Encounter Summary ---
Author Organization [facility] Address [address] [id number] Care Team Providers Care Magazine Keeper Name Role Phone Rodolfo Rhoades MD Primary Care Provider [phone] Marianne Bolaños Unavailable Unavailable Ariana Bagley Unavailable Unavailable Reason for Visit * Reason Comments Leg Swelling Ongoing for over 1 m onth; gets out of breath easily; ongoing fatigue; cardiology fu appt in July; work is shutting down so she is trying to get all the hours in at work that she can due to unknown future; BP has been running high and she states another BP med Care Gap Closure Postpone Covid vacci ne; colonoscopy this yr, [facility], records request sent Med Refill Vitamin D RX strengt h took last 1 this week, will need more if RX needed vs OTC Encounter Details Date Type Department Care Team (Late st Contact Info) Description 07/14/2025 10:40 AM EDT Office Visit [facility] [address] [place] [address] Rodolfo Rhoades MD [address] [place] [address] Chronic fatigue (Primary Dx); Essential hypertension; Pitting edema; Heart failure with preserved ejection fraction, unspecified HF chronicity (CMS/HCC) Social History Tobacco Use Types Packs/Day Years Used Date Smoking Tobacco: Some Days Cigarettes 1 23.7 Started: 11/30/2001 Passive Smoke Exposure: Current Smokeless Tobacco: Never Alcohol Use Standard Drinks/Week Comments Never 0 (1 standard drink = 0.6 oz pur e alcohol) PHQ-2 Answer Date Recorded Patient Health Questionnaire-2 Score 1 07/14/2025 PHQ-9 Answer Date Recorded Patient Health Questionnaire-9 Score 11 07/14/2025 Humiliation, Afraid, Rape, and Kick questionnair e Answer Date Recorded Within the last year, have y ou been afraid of your partner or ex-partner? No 07/14/2025 Within the last year, have y ou been humiliated or emotionally abused in other ways by your partner or ex-partner? No Within the last year, have y ou been kicked, hit, slapped, or otherwise physically hurt by your partner or ex-partner? No 07/14/2025 Within the last year, have y ou been raped or forced to have any kind of sexual activity by your partner or ex-partner? No 07/14/2025 AUDIT-C Answer Date Recorded Q1: How often do you have a drink containing alcohol? Never 07/14/2025 Q2: How many drinks containi ng alcohol do you have on a typical day when you are drinking? Patient does not drink Q3: How often do you have si x or more drinks on one occasion? Never 07/14/2025 Hunger Vital Sign Answer Date Recorded Within the past 12 months, y ou worried that your food would run out before you got the money to buy more. Never true Within the past 12 months, t he food you bought just didn't last and you didn't have money to get more. Sometimes true PRAPARE - Transportation Answer Date Re corded In the past 12 months, has l ack of transportation kept you from medical appointments or from getting medications? Yes 06/30 In the past 12 months, has l ack of transportation kept you from meetings, work, or from getting things needed for daily living? Yes 07/14/2025 Housing Stability Vital Sign Answer Yovany e Recorded In the last 12 months, was t here a time when you were not able to pay the mortgage or rent on time? No 07/14/2025 In the past 12 months, how m any times have you moved where you were living? 0 07/14/2025 At any time in the past [address] [facility], were you homeless or living in a penitentiary (including now)? No 07/14/2025 Safety and Environment Answer Date Abraham rded [...] Recorded In the past 12 months has [employer], [employer], oil, or water [employer] threatened to shut off services in your home? No 07/14/2025 PHQ-2A Answer Date Recorded Patient Health Questionnaire-2 [...] Sign Reading Time Taken Comments Blood Pressure 150/96 07/14/2025 11:11 AM EDT Pulse 77 07/14/2025 10:48 AM EDT Temperature 36.8 C (98.2 F) 07/14/2025 10:48 AM EDT Respiratory Rate 18 07/14/2025 10:48 AM EDT Oxygen Saturation 99% 07/14/2025 10:48 AM EDT Inhaled Oxygen Concentration - - Weight 57.2 kg (126 lb 1.7 oz) 07/14/2025 10:48 AM EDT Height 162.6 cm (5' 4 ) 07/14/2025 10:48 AM EDT Body Mass Index 21.65 07/14/2025 10:48 AM EDT documented in this encounter Functional Status * AUDIT-C Score Answer Date of Assessment Author 0 07/14/2025 10:55 AM EDT Mindy Crane * Question Answer Date of Assessment Author Q1: How often do you have a drink containing alcohol? Never 07/14/2025 10:55 AM EDT Rama Gudino Q2: How many drinks containing alcohol do you have on a typical day when you are drinking? Patient does not drink 07/14/2025 10:55 AM ELKET Mindy Gudino Q3: How often do you have six or more drinks on one occasion? Never 07/14/2025 10:55 AM EDT Rama Gudino * Over the past 2 weeks, how often have you been bothered by any of the following problems? Question Answer Date of Assessment Author Little interest or pleasure in doing things Not at all 07/14/2025 10:59 AM ELKET Mindy Gudino Feeling down, depressed, or hopeless Several days 07/14/2025 10:59 AM EDT Rama Gudino ica [place] Patient Health Questionnaire-2 Score 1 07/14/2025 10:59 AM ELKET Andrzej Gudino * Question Answer Date of Assessment Author Trouble falling or staying asleep, or sleeping too much Nearly every day 07/14/2025 10:59 AM ELKET Rama Gudino ica [place] Feeling tired or having little energy Nearly every day 07/14/2025 10:59 AM EDT Rama Gudino ica [place] Poor appetite or overeating Not at all 07/14/2025 10:59 AM EDT Rama Gudino ica L Feeling bad about yourself - or that you are a failure or have let yourself or your family down Several days 07/14/2025 10:59 AM EDT Rama Gudino ica [place] Trouble concentrating on things, such as reading the newspaper or watching television Nearly every day 07/14/2025 10:59 AM EDT Rama Gudino ica L Moving or speaking so slowly that other people could have noticed? Or the opposite - being so fidgety or restless that you have been moving around a lot more than usual. Not at all 07/14/2025 10:59 AM EDT Rama Gudino ica L Thoughts that you would be better off or hurting yourself in some way Not at all 07/14/2025 10:59 AM ELKET Estrada Gudino Patient Health Questionnaire-9 Score 11 07/14/2025 10:59 AM EDT Andrzej Gudino * Calculated C-SSRS Risk Score (Lifetime/Recent) Answer Date of Assessment Author No Risk Indicated 07/14/2025 11:06 AM EDT Mindy Holt * If you checked off any problems on this questionnaire so far, Question Answer Date of Assessment Author How difficult have these problems made it for you to do your work, take care of things at home, or get along with other people? Somewhat difficult 07/14/2025 10:59 AM EDT Rama Gudino * How difficult have these problems made it for you to do your work, take care of things at home, or get along with other people? Answer Date of Assessment Author Somewhat difficult 07/14/2025 10:59 AM EDT Mindy Hatfield * Question Answer Date of Assessment Author 1. Wish to be (Past 1 Month) No 07/14/2025 11:06 AM EDT Rama Gudino 2. Non-Specific Active Suici omar Thoughts (Past 1 Month) No 07/14/2025 11:06 AM EDT Mindy Gudino 6. Suicidal Behavior (Lifetime) No 11:06 AM ELKET Mindy Gudino documented as of this encounter Miscellaneous Notes * Progress Notes - Rodolfo Rhoades MD - 07/14/2025 10:40 AM EDT Subjective Patient ID: Veronica Weiss is a 49 y.o. female. Chief Complaint Patient presents with Leg Swelling Ongoing for over 1 month; gets out of breath easily; ongoing fatigue; cardiology fu appt in July; work is shutting down so she is trying to get all the hours in at work that she can due to unknown future; BP has been running high and she states another BP med Care Gap Closure Postpone Covid vaccine; colonoscopy this yr, [facility], records request sent Med Refill Vitamin D RX strength took last 1 this week, will need more if RX needed vs OTC Med Refill Associated symptoms include fatigue. Pertinent negatives include no abdominal pain, chest pain, coughing or fever. Has been struggling with swelling for the past month. 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 Does have over 10 lbs of weight gain between her prior visit over a month ago. Cardiology is out this week. She had an echo showing moderate aortic stenosisdespite having a mechanical valve replacement in her aortic valve. Cardiology put her on a fluid pill, which she feels like helps but she still has pitting edema. The following portions of the chart were reviewed this encounter and updated as appropriate: Tobacco Allergies Meds Problems Med Hx Surg Hx Fam Hx Review of Systems Constitutional: Positive for fatigue. Negative for fever. Respiratory: Negative for cough and shortness of breath. Cardiovascular: Positive for leg swelling. Negative for chest pain. Gastrointestinal: Negative for abdominal pain. Objective Physical Exam Constitutional: Appearance: Normal appearance. She is not ill-appearing. HENT: Head: Normocephalic and atraumatic. Cardiovascular: Rate and Rhythm: Normal rate and regular rhythm. Heart sounds: Normal heart sounds. No murmur heard. Pulmonary: Effort: Pulmonary effort is normal. No respiratory distress. Breath sounds: Normal breath sounds. No wheezing or rhonchi. Musculoskeletal: Right lower leg: Edema (+1) present. Left lower leg: Edema (+1) present. Neurological: General: No focal deficit present. Mental Status: She is alert. Mental status is at baseline. Psychiatric: Mood and Affect: Mood normal. Behavior: Behavior normal. Assessment/Plan Assessment & Plan Chronic fatigue Essential hypertension Pitting edema Heart failure with preserved ejection fraction, unspecified HF chronicity (CMS/HCC) Gaining significant weight over the past month despite the fluid pill. Has continued to gain weight, I have concerns of worsening heart failure. Note to patient: The 21st Century Cures [...] Description 08/09/2025 11:40 AM EDT Office Visit [facility] [address] [place] [address] Rodolfo Rhoades MD [address] [place] [address] 08/11/2025 10:40 AM EDT Office Visit [facility] [address] [place] [address] Rodolfo Rhoades MD [address] [place] [address] documented as of this encounter Procedures Procedure Name Priority Date/Time Associated Diagnosis Comments N-TERMINAL PROBNP, PLASMA Routine 07/14/2025 12:23 PM EDT Heart failure with preserved ejection fraction, unspecified HF chronicity (CMS/HCC) CBC WITH AUTO DIFFERENTIAL Routine 07/14/2025 12:23 PM EDT Chronic fatigue Essential hypertension BASIC METABOLIC PANEL, PLASMA Routine 07/14/2025 12:23 PM EDT Essential hypertension Pitting edema documented in this encounter Results * (ABNORMAL) N-Terminal Probnp, Plasma (07/14/2025 12:23 PM EDT) N-Terminal, PROBNP, Plasma 967(H) 0 - 449 pg/mL 07/14/2025 7:35 PM EDT [facility] Blood Venous blood specimen / Unknown Venipuncture / Unknown 07/14/2025 12:23 PM EDT 07/14/2025 12:23 PM EDT us Rodolfo Rhodaes MD LAB BLOOD ORDERABLES Final Res ult [facility] [address] [place] [address] * (ABNORMAL) CBC and Differential (07/14/2025 12:23 PM EDT) WBC Count 10.35(H) 3.70 - 10.30 10*3/uL LAB HEMATOLOGY METHOD 07/14/2025 7:14 PM EDT [facility] RBC Count 4.50 3.90 - 5.20 10*6/uL LAB HEMATOLOGY METHOD 07/14/2025 7:14 PM EDT [facility] HGB 13.9 11.2 - 15.7 g/dL LAB HEMATOLOGY METHOD 07/14/2025 7:14 PM EDT [facility] HCT 43.2 34.0 - 45.0 % LAB HEMATOLOGY METHOD 07/14/2025 7:14 PM EDT [facility] Platelet Count 323 155 - 369 10*3/uL LAB HEMATOLOGY METHOD 07/14/2025 7:14 PM EDT [facility] MCV 96 79 - 98 fL LAB HEMATOLOGY METHOD 07/14/2025 7:14 PM EDT [facility] MCH 30.9 26.0 - 32.0 pg LAB HEMATOLOGY METHOD 07/14/2025 7:14 PM EDT [facility] MCHC 32.2 30.7 - 35.5 g/dL LAB HEMATOLOGY METHOD 07/14/2025 7:14 PM EDT [facility] RDW 13.5 11.5 - 14.5 % LAB HEMATOLOGY METHOD 07/14/2025 7:14 PM EDT [facility] MPV 10.3 8.8 - 12.5 fL LAB HEMATOLOGY METHOD 07/14/2025 7:14 PM EDT [facility] nRBC 0.0 <=0.0 per 100 WBCs LAB HEMATOLOGY METHOD 07/14/2025 7:14 PM EDT [facility] Differential Type Automated LAB HEMATOLOGY METHOD 07/14/2025 7:14 PM EDT [facility] Neutrophils % 58 % LAB HEMATOLOGY METHOD 07/14/2025 7:14 PM EDT [facility] Lymphocytes % 22 % LAB HEMATOLOGY METHOD 07/14/2025 7:14 PM EDT [facility] Monocytes % 10 % LAB HEMATOLOGY METHOD 07/14/2025 7:14 PM EDT [facility] Eosinophils % 7 % LAB HEMATOLOGY METHOD 07/14/2025 7:14 PM EDT [facility] Basophils % 1 % LAB HEMATOLOGY METHOD 07/14/2025 7:14 PM EDT [facility] Immature Granulocytes % 2 % LAB HEMATOLOGY METHOD 07/14/2025 7:14 PM EDT [facility] Neutrophils Absolute 6.13(H) 1.60 - 6.10 10*3/uL LAB HEMATOLOGY METHOD 07/14/2025 7:14 PM EDT [facility] Lymphocytes Absolute 2.25 1.20 - 3.90 10*3/uL LAB HEMATOLOGY METHOD 07/14/2025 7:14 PM EDT [facility] Monocytes Absolute 0.98(H) 0.30 - 0.90 10*3/uL LAB HEMATOLOGY METHOD 07/14/2025 7:14 PM EDT [facility] Eosinophils Absolute 0.67(H) 0.00 - 0.50 10*3/uL LAB HEMATOLOGY METHOD 07/14/2025 7:14 PM EDT [facility] Basophils Absolute 0.08 0.00 - 0.10 10*3/uL LAB HEMATOLOGY METHOD 07/14/2025 7:14 PM EDT [facility] Immature Granulocytes Absolute 0.24(H) 0.00 - 0.06 10*3/uL LAB HEMATOLOGY METHOD 07/14/2025 7:14 PM EDT [facility] Blood Venous blood specimen / Unknown Venipuncture / Unknown 07/14/2025 12:23 PM EDT 07/14/2025 12:23 PM EDT [facility] - 07/14/2025 7:14 PM EDT Therapeutic decision making should be based on absolute values, rather than percentages. us Rodolfo Rhoades MD LAB BLOOD ORDERABLES Final Res ult [facility] [address] [place] [address] * Basic Metabolic Panel, Plasma (07/14/2025 12:23 PM EDT) Glucose, Plasma 76 74 - 99 mg/dL 07/14/2025 7:35 PM EDT [facility] BUN, Plasma 8 7 - 21 mg/dL 07/14/2025 7:35 PM EDT [facility] Creatinine, Plasma 0.84 0.60 - 1.10 mg/dL 07/14/2025 7:35 PM EDT [facility] BUN/Creatinine Ratio 10 07/14/2025 7:35 PM EDT [facility] Sodium, Plasma 139 136 - 145 mmol/L 07/14/2025 7:35 PM EDT [facility] Potassium, Plasma 3.7 3.6 - 4.9 mmol/L 07/14/2025 7:35 PM EDT [facility] Chloride, Plasma 103 97 - 107 mmol/L 07/14/2025 7:35 PM EDT [facility] CO2, Plasma 26 22 - 29 mmol/L 07/14/2025 7:35 PM EDT [facility] Anion Gap 10 6 - 16 mmol/L 07/14/2025 7:35 PM EDT [facility] Total Calcium, Plasma 10.0 8.9 - 10.2 mg/dL 07/14/2025 7:35 PM EDT [facility] eGFRcr 86.4 mL/min/1.7 3m*2 07/14/2025 7:35 PM EDT [facility] Comment:Reported eGFRcr in m L/min/1.73m2 is based the CKD-EPI 2020 equation that does not use a race coefficient. Blood Venous blood specimen / Unknown Venipuncture / Unknown 07/14/2025 12:23 PM EDT 07/14/2025 12:23 PM EDT us Rodolfo Rhoades MD LAB BLOOD ORDERABLES Final Res ult [facility] [address] [place] [address] documented in this encounter Visit Diagnoses Diagnosis Chronic fatigue- Primary Other malaise and fatigue Essential hypertension Unspecified essential hypertension Pitting edema Edema Heart failure with preserved ejection fraction, unspecified HF chronicity (CMS/HCC) documented in this encounter Additional Health Concerns Assessment Noted Time PHQ-9 Depression Total Score: 11 025 10:59 AM EDT A fall risk assessment has been complete d for the patient 03/19/2023 1:57 PM EDT A Body Mass Index follow-up plan has been documented for the patient 06/08/2025 12:14 AM EDT documented as of this encounter Care Teams Magazine Keeper Relationship Specialty Start Date End Date Rodolfo Rhoades MD [address] [place] [address] PCP - General Family Medicine 02/02/25 Marianne Bolaños Clinical Student Ministries Director 07/14/2507/28 Ariana Bagley Community Health Worker 07/14/25 07/14/25 documented as of this encounter
[2025-08-02 21:04] VITALS: BP 170/111; PULSE 83; RESP 20; TEMP 36.6; O2SAT 97; BMI 20.2
--- OUTSIDE RECORDS SUMMARY | 2025-08-02 21:18 | XMS_ITS | Encounter Summary ---
Author Organization [facility] Address [address] [id number] Care Team Providers Care Nematologist Name Role Phone Rodolfo Rhoades MD Primary Care Provider [phone] Marianne Bolaños Unavailable Unavailable Ariana Bagley Unavailable Unavailable Reason for Visit * Reason Comments Community Resources Encounter Details Date Type Department Care Team (Late st Contact Info) Description 07/14/2025 Patient Outreach [facility] [address], [address] [place] [address] Ariana Bagley Community Resources Social History Tobacco Use Types Packs/Day Years [...] any time in the past 12 m [facility], were you homeless or living in a fci (including now)? No 07/14/2025 Safety and Environment [...] as of this encounter Functional Status * AUDIT-C Score [...] Patient does not drink 07/14/2025 10:55 AM EDT Mindy Gudino Q3: How often do you have six or more drinks on one occasion? Never 07/14/2025 10:55 AM EDT Rama Gudino * Over the past 2 weeks, how often have you been bothered by any of the following problems? Question Answer Date of Assessment Author Little interest or pleasure in doing things Not at all 07/14/2025 10:59 AM EDT Mindy Gudino Feeling down, depressed, or hopeless Several days 07/14/2025 10:59 AM EDT Rama Gudino Patient Health Questionnaire-2 Score 1 07/14/2025 10:59 AM EDT Andrzej Gudino * Question Answer Date of Assessment Author Trouble falling or staying asleep, or sleeping too much Nearly every day 07/14/2025 10:59 AM EDT Rama Gudino Feeling tired or having little energy Nearly every day 07/14/2025 10:59 AM EDT Rama Gudino Poor appetite or overeating Not at all 07/14/2025 10:59 AM EDT Rama Gudino Feeling bad about yourself - or that you are a failure or have let yourself or your family down Several days 07/14/2025 10:59 AM EDT Rama Gudino Trouble concentrating on things, such as reading [...] way Not at all 07/14/2025 10:59 AM EDT Estrada Gudino Patient Health Questionnaire-9 Score 11 07/14/2025 10:59 AM EDT Andrzej Gudino ondean Colin * Calculated C-SSRS Risk Score (Lifetime/Recent) Answer Date of Assessment Author No Risk Indicated 07/14/2025 11:06 AM EDT Mindy Holt L * If you checked off any problems on this questionnaire so far, Question Answer Date of Assessment Author How difficult have these problems made it for you to do your work, take care of things at home, or get along with other people? Somewhat difficult 07/14/2025 10:59 AM EDT Rama Gudino ica L * How difficult have these problems made it for you to do your work, take care of things at home, or get along with other people? Answer Date of Assessment Author Somewhat difficult 07/14/2025 10:59 AM EDT Mindy Hatfield L * Question Answer Date of Assessment Author 1. Wish to be (Past 1 Month) No 07/14/2025 11:06 AM EDT Rama Gudino L 2. Non-Specific Active Suici omar Thoughts (Past 1 Month) No 07/14/2025 11:06 AM EDT Mindy Gudino L 6. Suicidal Behavior (Lifetime) No 11:06 AM EDT Mindy Gudino documented as of this encounter Miscellaneous Notes * Progress Notes - Ariana Bagley - 07/14/2025 2:25 PM EDT [facility] Initial Encounter Note 07/14/2025 Urgent or Non-Urgent Referral: Non Urgent Squirrel Worker: No Preferred Language: Yi Squirrel Worker ID: Outreach 1: 07/14/2025 pt answered Contact Methods: Phone SDOH Pre-Assessment/Health Maintenance: Transportation: [access to transportation, issues, etc.] and Food: [access to food, any issues, etc.] SDOH Overview: [facility] Population Health received referral for pt from SDOH assessment SDOH Intervention: Reached out to pt and explained program. Pt stated she needed assistance in buying a car, and she thought there wasn't any either. I was unable to find any resources to purchase a vehicle. Pt stated no other resources needed. Will close pt at this time, due to no other resources needed. Pt enrolled in [facility] Program: Yes Next follow-up scheduled: Notes for next follow-up: documented in this encounter Plan of Treatment Upcoming Encounters Date Type Department Care Team (Late st Contact Info) Description 08/09/2025 11:40 AM EDT Office Visit [facility] [address] [place] [address] Rodolfo Rhoades MD [address] [place] [address] 08/11/2025 10:40 AM EDT Office Visit [facility] [address] [place] [address] Rodolfo Rhoades MD [address] [place] [address] documented as of this encounter [...] documented as of this encounter Care Teams Nematologist Relationship Specialty Start Date End Date Rodolfo Rhoades MD [address] [facility] [place] [address] PCP - General Family Medicine 02/02/25 Marianne Bolaños Clinical Blast Furnace Keeper Helper 07/14/2507/28 Ariana Bagley Community Health Worker 07/14/25 07/14/25 documented as of this encounter
--- OUTSIDE RECORDS SUMMARY | 2025-08-02 21:18 | XMS_ITS | Encounter Summary ---
Author Organization [facility] Address [address] [id number] Care Team Providers Care Cartography Technician Name Role Phone Georgette Moore DERRELL Primary Care Provider [phone] Veronica Goodwin LPN Unavailable Unavailable Margaret Ro Unavailable Unavailable Rodolfo Rhoades MD Primary Care Provider [phone] Marianne Bolaños Unavailable Unavailable Ariana Bagley Unavailable Unavailable Encounter Details Date Type Department Care Team ([facility] Contact Info) Description 02/06/2022 Outside Procedure External Location [address] [place] [address] Provider, Swapnil [place] Social History Tobacco Use Types Packs/Day Years [...] Upcoming Encounters Date Type Department Care Team ([facility] Contact Info) Description 08/09/2025 11:40 AM EDT Office Visit [facility] & [address] [address] [place] [address] 08/11/2025 10:40 AM EDT Office Visit [facility] [address] [place] [address] Rodolfo Rhoades MD [address] [place] [address] documented as of this encounter Procedures Procedure Name Priority Date/Time Associated Diagnosis Comments XR THORACIC SPINE 3 VIEWS 02/06/2022 2:09 PM EST documented in this encounter Results * XR Thoracic Spine 3 Views (02/06/2022 2:09 PM EST) Anatomical Region Laterality Modality Spine, T-spine Radiographic Tierra ging 02/06/2022 2:09 PM EST Narrative 02/06/2022 3:19 [place] [address] Name: VERONICA ALVAREZ Exam Date: 02/06/2022 : 1975 Age 46 Gender: F Physician: HORACE RYAN Facility: [facility] Facility HSV: Outpatient Exam: THORACIC [...] Thank you for referring VERONICA ALVAREZ to [facility]. Legally authenticated by GADIEL DELEON 2022-02-06 15:08:18 Procedure Note Provider, Swapnil [place] - 02/06/[address] [place] [address] Name: VERONICA ALVAREZ Exam Date: 02/06/2022 : 1975 Age 46 Gender: F Physician: HORACE RYAN Facility: [facility] Facility HSV: Outpatient Exam: THORACIC [...] Thank you for referring VERONICA ALVAREZ to [facility]. Legally authenticated by GADIEL DELEON 2022-02-06 15:08:18 Generic [place] Provider IMG XR PROCEDURES Fi nal Result [...] documented as of this encounter Care Teams Cartography Technician Relationship Specialty Start Date End Date Georgette Moore APRN [facility] [place] [address] PCP - General 04/12/21 02/01/25 Rodolfo Rhoades MD [address] [place] [address] PCP - General Family Medicine 02/02/25 Veronica Goodwin LPN VALUE-[employer]ED [place] [address] TCM Nurse 07/25/24 08/25/24 Margaret Ro Community Health Worker 07/27/24 4 Marianne Bolaños Clinical Mother Helper 07/14/25 07/28/25 Ariana Bagley Community Health Worker 07/14/25 07/14/25 documented as of this encounter
--- OUTSIDE RECORDS SUMMARY | 2025-08-02 21:18 | XMS_ITS | Encounter Summary ---
Author Organization [facility] Address [facility] [place] [address] Care Team Providers Care Small Package And Bundle Sorter Clerk Name Role Phone Georgette Moore APRN Primary Care Provider [phone] Veronica Goodwin LEAD POURER Unavailable Unavailable Margaret Ro Unavailable Unavailable Rodolfo Rhoades MD Primary Care Provider [phone] Marianne Bolaños Unavailable Unavailable Ariana Bagley Unavailable Unavailable Reason for Visit * Reason Comments Med Refill Encounter Details Date Type Department Care Team (Late st Contact Info) Description 12/21/2021 Refill [facility] [address] [place] [address] Georgette Moore APRN [address] [place] [address] Chronic fatigue Social History Tobacco [...] Description 08/09/2025 11:40 AM EDT Office Visit [facility] [address] [place] [address] Rodolfo Rhoades MD [address] [place] [address] 08/11/2025 10:40 AM EDT Office Visit [facility] [address] [place] [address] Rodolfo Rhoades MD [address] [place] [address] documented as of this encounter [...] documented as of this encounter Care Teams Small Package And Bundle Sorter Clerk Relationship Specialty Start Date End Date Georgette Moore APRN [address] [place] [address] PCP - General 04/12/21 02/01/25 Rodolfo Rhoades MD [address] [place] [address] PCP - General Family Medicine 02/02/25 Veronica oGodwin LPN VALUE[employer]ED [place] [address] TCM Nurse 07/25/24 08/25/24 Margaret Ro Community Health Worker 07/27/24 4 Marianne Bolaños Clinical Tube Cleaner 07/14/25 07/28/25 Ariana Bagley Community Health Worker 07/14/25 07/14/25 documented as of this encounter
--- OUTSIDE RECORDS SUMMARY | 2025-08-02 21:18 | XMS_ITS | Encounter Summary ---
Author Organization [facility] [place] [address] Care Team Providers Care Main Line Assembler Name Role Phone Georgette Moore APRN Primary Care Provider [phone] Veronica Goodwin RENTAL CAR DELIVERER Unavailable Unavailable Margaret Ro Unavailable Unavailable Rodolfo Rhoades MD Primary Care Provider [phone] Marianne Bolaños Unavailable Unavailable Ariana Bagley Unavailable Unavailable Reason for Visit * Reason Comments Med Refill Encounter Details Date Type Department Care Team (Late st Contact Info) Description 05/13/2021 Refill [facility] [address] [place] [address] Georgette Moore APRN [address] [place] [address] Social History Tobacco Use Types [...] Description 08/09/2025 11:40 AM EDT Office Visit [facility] [address] [address] Rodolfo Rhoades MD [address] [address] 08/11/2025 10:40 AM EDT Office Visit [facility] [address] [place] [address] Rodolfo Rhoades MD [address] [place] [address] documented as of this encounter Visit [...] documented as of this encounter Care Teams Main Line Assembler Relationship Specialty Start Date End Date Georgette Moore APRN [address] [place] [address] PCP - General 04/12/21 02/01/25 Rodolfo Rhoades MD [address] [place] [address] PCP - General Family Medicine 02/02/25 Veronica Goodwin, RENTAL CAR DELIVERER [employer] [address] TCM Nurse 07/25/24 08/25/24 Margaret Ro Community Health Worker 07/27/24 4 Marianne Bolaños Clinical Hotel Desk Clerk 07/14/25 07/28/25 Ariana Bagley Community Health Worker 07/14/25 07/14/25 documented as of this encounter
--- OUTSIDE RECORDS SUMMARY | 2025-08-02 21:18 | XMS_ITS | Encounter Summary ---
Author Organization [facility] Address [address] [id number] Care Team Providers Care Marketing Database Consultant Name Role Phone Georgette Moore DERRELL Primary Care Provider [phone] Veronica Goodwin LPN Unavailable Unavailable Margaret Ro Unavailable Unavailable Rodolfo Rhoades MD Primary Care Provider [phone] Marianne Bolaños Unavailable Unavailable Ariana Bagley Unavailable Unavailable Encounter Details Date Type Department Care Team ([facility] Contact Info) Description 02/06/2022 Outside Procedure External Location [address] [place] [address] Provider, Swapnil [place] Social History Tobacco Use Types Packs/Day Years [...] Upcoming Encounters Date Type Department Care Team ([facility] Contact Info) Description 08/09/2025 11:40 AM EDT Office Visit [facility] & [address] [address] [place] [address] 08/11/2025 10:40 AM EDT Office Visit [facility] [address] [place] [address] Rodolfo Rhoades MD [address] [place] [address] documented as of this encounter Procedures Procedure Name Priority Date/Time Associated Diagnosis Comments XR LUMBAR SPINE 2 OR 3 VIEWS 02/06/2022 2:09 PM EST documented in this encounter Results * XR Lumbar Spine 2 or 3 Views (02/06/2022 2:09 PM EST) Anatomical Region Laterality Modality Spine, L-spine Radiographic Tierra ging 02/06/2022 2:09 PM EST Narrative 02/06/2022 3:19 [place] [address] Name: VERONICA ALVAREZ Exam Date: 02/06/2022 : 1975 Age 46 Gender: F Physician: HORACE RYAN Facility: [facility] Facility HSV: Outpatient Exam: LUMBAR SPINE [...] GADIEL DELEON 2022-02-06 15:07:32 Procedure Note Provider, Swapnil Lyman - 02/06/2022 [facility] [address] [place] [address] Name: VERONICA ALVAREZ Exam Date: 02/06/2022 : 1975 Age 46 Gender: F Physician: HORACE RYAN Facility: [facility] Facility HSV: Outpatient Exam: LUMBAR SPINE [...] Legally authenticated by GADIEL DELEON 2022-02-06 15:07:32 Generic Lyman Provider IMG XR PROCEDURES Fi nal Result [...] as of this encounter Care Teams Marketing Database Consultant Relationship Specialty Start Date End Date Georgette Moore APRN [address] [place], [place] [address], [place] [address] PCP - General 04/12/21 02/01/25 Rodolfo Rhoades MD [address] [place] [address] PCP - General Family Medicine 02/02/25 Veronica Goodwin LPN VALUE-[employer]ED [place] [address] TCM Nurse 07/25/24 08/25/24 Margaret Ro Community Health Worker 07/27/24 4 Marianne Bolaños Clinical Proof Clerk 07/14/25 07/28/25 Ariana Bagley Community Health Worker 07/14/25 07/14/25 documented as of this encounter
--- OUTSIDE RECORDS SUMMARY | 2025-08-02 21:18 | XMS_ITS | Encounter Summary ---
Author Organization [facility] Address [facility] [place] [address] Care Team Providers Care Chemical Economist Name Role Phone Rodolfo Rhoades MD Primary Care Provider [phone] Encounter Details Date Type Department Care Team (Late st Contact Info) Description 06/15/2025 Orders Only [facility] [address] [place] [address] Rodolfo Rhoades MD [address] [place] [address] Fungal infection (Primary Dx) Social [...] Description 08/09/2025 11:40 AM EDT Office Visit [facility] [address] [place] [address] Rodolfo Rhoades MD [address] [place] [address] 08/11/2025 10:40 AM EDT Office Visit [facility] [address] [place] [address] Rodolfo Rhoades MD [address] [place] [address] documented as of this encounter [...] documented as of this encounter Care Teams Chemical Economist Relationship Specialty Start Date End Date Rodolfo Rhoades MD [address] [place] [address] PCP - General Family Medicine 02/02/25 documented as of this encounter
--- OUTSIDE RECORDS SUMMARY | 2025-08-02 21:18 | XMS_ITS | Encounter Summary ---
Author Organization [facility] Address [address] [id number] Care Team Providers Care Turn Down Attendant Name Role Phone Georgette Moore BARROW WORKER HELPER Primary Care Provider [phone] Veronica Goodwin TURN LASTER Unavailable Unavailable Margaret Ro Unavailable Unavailable Rodolfo Rhoades MD Primary Care Provider [phone] Marianne Bolaños Unavailable Unavailable Ariana Bagley Unavailable Unavailable Encounter Details Date Type Department Care Team ([facility] Contact Info) Description 07/22/2021 Outside Procedure External Location [address] [place] [address] Irma Masterson MD [address] [place] [address] Social History Tobacco Use Types Packs/Day [...] Upcoming Encounters Date Type Department Care Team ([facility] Contact Info) Description 08/09/2025 11:40 AM EDT Office Visit [facility] [address] [place] [address] Rodolfo Rhoades MD [address] [place] [address] 08/11/2025 10:40 AM EDT Office Visit [facility] [address] [place] [address] Rodolfo Rhoades MD [address] [place] [address] documented as of this encounter Procedures Procedure Name Priority Date/Time Associated Diagnosis Comments CT CHEST LIMITED HISTORICAL 07/22/2021 1:04 PM EDT documented in this encounter Results * CT Chest Limited Historical (07/22/2021 1:04 PM EDT) Anatomical Region Laterality Modality Chest Computed Tomogra phy 07/22/2021 1:04 PM EDT Narrative 07/22/2021 3:35 PM EDT [address] [id number] Name: VERONICA ALVAREZ Exam Date: 07/22/2021 : 1975 Age 45 Gender: F Physician: Irma Masterson Facility: [facility] Facility HSV: Outpatient Exam: CT [...] Thank you for referring VERONICA ALVAREZ to [facility]. Legally authenticated by POPE FUNMILAYO Almonte 2021-07-22 15:24:50 Procedure Note Provider, Generic [place] - 07/22/[address] [place] [address] Name: VERONICA ALVAREZ Exam Date: 07/22/2021 : 1975 Age 45 Gender: F Physician: Irma Masterson Facility: [facility] Facility HSV: Outpatient Exam: CT [...] Thank you for referring VERONICA ALVAREZ to [facility]. Legally authenticated by POPE FUNMILAYO Almonte 2021-07-22 15:24:50 us Irma Masetrson MD IMG CT PROCEDURES Final Resul t [...] documented as of this encounter Care Teams Turn Down Attendant Relationship Specialty Start Date End Date Georgette Moore APRN [address] [place] [address] PCP - General 04/12/21 02/01/25 Rodolfo Rhoades MD [address] [place] [address] PCP - General Family Medicine 02/02/25 Veronica Goodwin LPN [employer] [address] TCM Nurse 07/25/24 08/25/24 Margaret Ro Community Health Worker 07/27/24 4 WagesMarianne Clinical Group Controller 07/14/25 07/28/25 Ariana Bagley Community Health Worker 07/14/25 07/14/25 documented as of this encounter
--- OUTSIDE RECORDS SUMMARY | 2025-08-02 21:18 | XMS_ITS | Encounter Summary ---
Author Organization [facility] Address [facility] [place] [address] Care Team Providers Care Nut And Bolt Assembler Name Role Phone Rodolfo Rhoades MD Primary Care Provider [phone] Marianne Bolaños Unavailable Unavailable Ariana Bagley Unavailable Unavailable Encounter Details Date Type Department Care Team (Late st Contact Info) Description 07/14/2025 Results Follow-Up [facility] [address] [place] [address] Rodolfo Rhoades MD [address] [place] [address] Social History Tobacco Use Types [...] time in the past 12 m [facility], were you homeless or living in a senior living (including now)? No 07/14/2025 Safety and Environment [...] day 07/14/2025 10:59 AM EDT Rama Gudino Moving or speaking so slowly that other people could have noticed? Or the opposite - being so fidgety or restless that you have been moving around a lot more than usual. Not at all 07/14/2025 10:59 AM EDT Rama Gudino Thoughts that you would be better off [...] Description 08/09/2025 11:40 AM EDT Office Visit [facility] [address] [place] [address] Rodolfo Rhoades MD [address] [place] [address] 08/11/2025 10:40 AM EDT Office Visit [facility] [address] [place] [address] Rodolfo Rhoades MD [address] [place] [address] documented as of this encounter Visit [...] documented as of this encounter Care Teams Nut And Bolt Assembler Relationship Specialty Start Date End Date Rodolfo Rhoades MD [address] [place] [address] PCP - General Family Medicine 02/02/25 Marianne Bolaños Clinical Mask Designer 07/14/2507/28 Ariana Bagley Community Health Worker 07/14/25 07/14/25 documented as of this encounter
--- OUTSIDE RECORDS SUMMARY | 2025-08-02 21:18 | XMS_ITS | Encounter Summary ---
Author Organization [facility] Address [address] [id number] Care Team Providers Care Customer Service Manager Name Role Phone Rodolfo Rhoades MD Primary Care Provider [phone] Marianne Bolaños Unavailable Unavailable Ariana Bagley Unavailable Unavailable Reason for Visit * Reason Comments Health Maint. Records Encounter Details Date Type Department Care Team (Late st Contact Info) Description 07/14/2025 Patient Outreach [facility] [address] [facility], [address] [place] [address] Marianne Bolaños Health Maint. (Records) Social History Tobacco Use Types Packs/Day Years [...] any time in the past [address] [facility], were you homeless or living in a half-way (including now)? No 07/14/2025 Safety and Environment [...] day 07/14/2025 10:59 AM EDT Rama Gudino L Moving or speaking so slowly that other people could have noticed? Or the opposite - being so fidgety or restless that you have been moving around a lot more than usual. Not at all 07/14/2025 10:59 AM EDT Rama Gudino ica Dixie Thoughts that you would be better off [...] encounter Miscellaneous Notes * Progress Notes - Marianne Bolaños - 07/14/2025 11:14 AM EDT Records Request Outreach 07/14/2025 Records Request [x] Needed: Yes [x] Records Requested (check all that apply) [x] CRC [] Mammogram [] PAP [] Immunizations [] Other: Action Plan [x] Outreach completed: Initial Outreach Outcome: Requested records for provider. [x] RR Status: Submitted [x] Program Enrollment and tasks set for additional outreach Requested colonoscopy records via fax from [facility]. Follow-up scheduled for: 07/28/2025 Additional Information (if needed): Completed by: Marianne Bolaños documented in this encounter Plan of Treatment Upcoming Encounters Date Type Department Care Team (Late st Contact Info) Description 08/09/2025 11:40 AM EDT Office Visit [facility] [address] [place] [address] Rodolfo Rhoades MD [address] [place] [address] 08/11/2025 10:40 AM EDT Office Visit [facility] [address] [place] [address] Rodolfo Rhoades MD [address] [place] [address] documented as of this encounter [...] documented as of this encounter Care Teams Customer Service Manager Relationship Specialty Start Date End Date Rodolfo Rhoades MD [address] [place] [address] PCP - General Family Medicine 02/02/25 Marianne Bolaños Clinical Geologic Technician 07/14/2507/28 Ariana Bagley Community Health Worker 07/14/25 07/14/25 documented as of this encounter
--- OUTSIDE RECORDS SUMMARY | 2025-08-02 21:18 | XMS_ITS ---
Author Organization [facility] Address [address] [place] [address] Care Team Providers Care Nurse Chemical Dependency Name Role Phone Rodolfo Rhoades MD Primary Care Provider [phone] Clinical Admitted Attorneys Program Status:Closed (Closed) Start date:07/14/2025 Enrollment date:07/14/2025 Enrollment reason:Identified using referral data End date:07/28/2025 Close reason:Patient graduated Overview This episode type is for outpatient Clinical Admitted Attorneys enrolling patients in their program. Continued Care and Services Coordination
--- OUTSIDE RECORDS SUMMARY | 2025-08-02 21:18 | XMS_ITS ---
Author Organization [facility] Address [address] [place] [address] Care Team Providers Care Laserist Name Role Phone Rodolfo Rhoades MD Primary Care Provider [phone] Community Health Work Status:Closed (Closed) Start date:07/14/2025 Enrollment date:07/14/2025 Enrollment reason:Referred by provider End date:07/14/2025 Close reason:Patient graduated Overview This episode type is for outpatient Community Health Workers enrolling patients in their program. Continued Care and Services Coordination
--- OUTSIDE RECORDS SUMMARY | 2025-08-02 21:18 | XMS_ITS | Encounter Summary ---
Author Organization [facility] Address [address] [id number] Care Team Providers Care Slag Production Worker Name Role Phone Rodolfo Rhoades MD Primary Care Provider [phone] Encounter Details Date Type Department Care Team [...] any time in the past 12 m [facility], were you homeless or living in a [...] Description 08/09/2025 11:40 AM EDT Office Visit [facility] [address] [place] [address] Rodolfo Rhoades MD [address] [place] [address] 08/11/2025 10:40 AM EDT Office Visit [facility] [address] [place] [address] Rodolfo Rhoades MD [address] [place] [address] documented as of this encounter [...] documented as of this encounter Care Teams Slag Production Worker Relationship Specialty Start Date End Date Rodolfo Rhoades MD [address] [place] [address] PCP - General Family Medicine 02/02/25 documented as of this encounter
--- OUTSIDE RECORDS SUMMARY | 2025-08-02 21:18 | XMS_ITS | Encounter Summary ---
Author Organization [facility] Address [address] [place] [address] Care Team Providers Care Machine Taper Name Role Phone Georgette Moore APRN Primary Care Provider [phone] Rodolfo Rhoades MD Primary Care Provider [phone] Marianne Bolaños Unavailable Unavailable Ariana Bagley Unavailable Unavailable Reason for Visit * Reason Comments Med Refill Encounter Details Date Type Department Care Team (Late st Contact Info) Description 11/28/2024 Refill [facility] [address] [place] [address] Imelda Burgos, FINAL ASSEMBLY INSPECTOR [address] [place] [address] COPD exacerbation (CMS/HCC); Cough with [...] encounter Miscellaneous Notes * Telephone Encounter - Arian Smithnany Colin - 11/28/2024 12:48 PM EST Pt stated this was a mistake from the pharmacy documented in this encounter Plan of Treatment Upcoming Encounters Date Type Department Care Team (Late st Contact Info) Description 08/09/2025 11:40 AM EDT Office Visit [facility] [address] [place] [address] Rodolfo Rhoades MD [address] [place] [address] 08/11/2025 10:40 AM EDT Office Visit [facility] [address] [place] [address] Rodolfo Rhoades MD [address] [place] [address] documented as of this encounter [...] as of this encounter Care Teams Machine Taper Relationship Specialty Start Date End Date Georgette Moore APRN [address] [place] [address] PCP - General 04/12/21 02/01/25 Rodolfo Rhoades MD [address] [place] [address] PCP - General Family Medicine 02/02/25 Marianne Bolaños Clinical Quantitative Strategy Analyst 07/14/2507/28 Ariana Bagley Community Health Worker 07/14/25 07/14/25 documented as of this encounter
--- OUTSIDE RECORDS SUMMARY | 2025-08-02 21:18 | XMS_ITS | Encounter Summary ---
Author Organization [facility] Address [facility] [place] [address] Care Team Providers Care Emergency Room Registered Nurse Name Role Phone Rodolfo Rhoades MD Primary Care Provider [phone] Marianne Bolaños Unavailable Unavailable Ariana Bagley Unavailable Unavailable Reason for Visit * Reason Onset Date Comments HCN - Patient Message 06/15/2025 Encounter Details Date Type Department Care Team (Late st Contact Info) Description 06/15/2025 Telephone [facility] Medicine [address] [place] [address] Rodolfo Rhoades MD [address] [place] [address] HCN - Patient Message Social [...] any time in the past 12 m [facility], were you homeless or living in a long-term (including now)? No 07/14/2025 Safety and Environment [...] television Nearly every day 07/14/2025 10:59 AM ELKET Rama Gudino ica L Moving or speaking [...] Assessment Author Somewhat difficult 07/14/2025 10:59 AM ELKET Mindy [place] * Question Answer Date of Assessment Author 1. Wish to be (Past 1 Month) No 07/14/2025 11:06 AM EDT Rama Gudino L 2. Non-Specific Active Suici omar Thoughts (Past 1 Month) No 07/14/2025 11:06 AM ELKET Mindy Gudino 6. Suicidal Behavior (Lifetime) No 11:06 AM Mindy Nash documented as of this encounter Miscellaneous Notes [...] optimal time of day to reach caller: [phone] Note: Please do not reply to this [...] Description 08/09/2025 11:40 AM EDT Office Visit [facility] [address] [place] [address] Rodolfo Rhoades MD [address] [place] [address] 08/11/2025 10:40 AM EDT Office Visit [facility] [address] [place] [address] Rodolfo Rhoades MD [address] [place] [address] documented as of this encounter [...] documented as of this encounter Care Teams Emergency Room Registered Nurse Relationship Specialty Start Date End Date Rodolfo Rhoades MD [address] [place] [address] PCP - General Family Medicine 02/02/25 Marianne Bolaños Clinical Perfumer 07/14/2507/28 Ariana Bagley Community Health Worker 07/14/25 07/14/25 documented as of this encounter
--- OUTSIDE RECORDS SUMMARY | 2025-08-02 21:18 | XMS_ITS | Encounter Summary ---
Author Organization [facility] Address [facility] [place] [address] Care Team Providers Care Jet Piercer Operator Name Role Phone Rodolfo Rhoades MD Primary Care Provider [phone] Encounter Details Date Type Department Care Team (Late st Contact Info) Description 03/28/2025 Results Follow-Up [facility] [address] [place] [address] Rodolfo Rhoades MD [address] [place] [address] Social History Tobacco Use Types [...] any time in the past 12 m [facility], were you homeless or living [...] Description 08/09/2025 11:40 AM EDT Office Visit [facility] [address] [place] [address] Rodolfo Rhoades MD [address] [place] [address] 08/11/2025 10:40 AM EDT Office Visit [facility] [address] [address] Rodolfo Rhoades MD [address] [place] [address] documented as of this encounter Results * C-peptide (06/07/2025 1:03 PM EDT) C Peptide 2.43 0.81 - 5.30 ng/mL 06/07/2025 7:08 PM EDT [facility] Blood Venous blood specimen / Unknown Venipuncture / Unknown 06/07/2025 1:03 PM EDT 06/07/2025 1:03 PM EDT us Rodolfo Rhoades MD LAB BLOOD ORDERABLES Final Res ult [facility] [address] [place] [address] * Insulin, random (06/07/2025 1:03 PM EDT) Pathologist [facility] Insulin 7.0 3.0 - 16.0 uU/mL 06/07/2025 7:08 PM EDT [facility] Blood Venous blood specimen / Unknown Venipuncture / Unknown 06/07/2025 1:03 PM EDT 06/07/2025 1:03 PM EDT us Rodolfo Rhoades MD LAB BLOOD ORDERABLES Final Res ult [facility] [address] [place] [address] * Hemoglobin A1c (03/27/2025 12:35 PM EDT) Hemoglobin A1c 5.4 <5.7 % 03/28/2025 3:54 PM EDT [facility] Blood Venous blood specimen / Unknown Venipuncture / Unknown 03/27/2025 12:35 PM EDT 03/27/2025 12:35 PM EDT Narrative [facility] - 03/28/2025 3:54 PM EDT HA1C Interpretive Data: Diagnosis of Diabetes: Diabetic > or = 6.5% Pre-diabetic 5.7 to 6.4% Non-diabetic < or = 5.6% Glycemic Targets for Type I and Type II Diabetics: Non- Adults <7.0% Adults <6.0% Children and Adolescents <7.5% Source: [place] [employer]. Standards of medical care in diabetes,2017. Diabetes Care.2017:40 (suppl 1):S1-S135. us Rodolfo Rhoades MD LAB BLOOD ORDERABLES Final Res ult [facility] [address] [place] [address] documented in this encounter Visit Diagnoses Diagnosis [...] documented as of this encounter Care Teams Jet Piercer Operator Relationship Specialty Start Date End Date Rodolfo Rhoades MD [address] [place] [address] PCP - General Family Medicine 02/02/25 documented as of this encounter
--- OUTSIDE RECORDS SUMMARY | 2025-08-02 21:18 | XMS_ITS | Encounter Summary ---
Author Organization [facility] Address [address] [id number] Care Team Providers Care Billiard Table Assembler Name Role Phone Georgette Moore DERRELL Primary Care Provider [phone] Veronica Goodwin LPN Unavailable Unavailable Margaret Ro Unavailable Unavailable Rodolfo Rhoades MD Primary Care Provider [phone] Marianne Bolaños Unavailable Unavailable Ariana Bagley Unavailable Unavailable Encounter Details Date Type Department Care Team ([facility] Contact Info) Description 02/06/2022 Outside Procedure External Location [address] [place] [address] Provider, Swapnil [place] Social History Tobacco Use Types Packs/Day Years [...] Upcoming Encounters Date Type Department Care Team ([facility] Contact Info) Description 08/09/2025 11:40 AM EDT Office Visit [facility] [address] [address] [place] [address] 08/11/2025 10:40 AM EDT Office Visit [facility] [address] [place] [address] Rodolfo Rhoades MD [address] [place] [address] documented as of this encounter Procedures Procedure Name Priority Date/Time Associated Diagnosis Comments XR CERVICAL SPINE 2 OR 3 VIEWS 02/06/2022 2:09 PM EST documented in this encounter Results * XR Cervical Spine 2 or 3 Views (02/06/2022 2:09 PM EST) Anatomical Region Laterality Modality Spine, C-spine Radiographic Tierra ging 02/06/2022 2:09 PM EST Narrative 02/06/2022 3:21 [place] [address] Name: VERONICA ALVAREZ Exam Date: 02/06/2022 : 1975 Age 46 Gender: F Physician: HORACE RYAN Facility: [facility] Facility HSV: Outpatient Exam: CERVICAL SPINE [...] Thank you for referring VERONICA ALVAREZ to [facility]. Legally authenticated by GADIEL DELEON 2022-02-06 15:08:51 Procedure Note Provider, [facility] - 02/06/[address] [place] [address] Name: VERONICA ALVAREZ Exam Date: 02/06/2022 : 1975 Age 46 Gender: F Physician: HORACE RYAN Facility: [facility] Facility HSV: Outpatient Exam: CERVICAL SPINE [...] Thank you for referring VERONICA ALVAREZ to [facility]. Legally authenticated by GADIEL DELEON 2022-02-06 15:08:51 Generic [place] Provider IMG XR PROCEDURES Fi nal Result [...] documented as of this encounter Care Teams Billiard Table Assembler Relationship Specialty Start Date End Date Georgette Moore APRN [address] [place] [address] PCP - General 04/12/21 02/01/25 Rodolfo Rhoades MD [address] [place] [address] PCP - General Family Medicine 02/02/25 Veronica Goodwin LPN [employer] [place] [address] TCM Nurse 07/25/24 08/25/24 Margaret Ro Community Health Worker 07/27/24 4 Marianne Bolaños Clinical Liner Replacer 07/14/25 07/28/25 Ariana Bagley Community Health Worker 07/14/25 07/14/25 documented as of this encounter
--- OUTSIDE RECORDS SUMMARY | 2025-08-02 21:18 | XMS_ITS | Encounter Summary ---
Author Organization [facility] Address [facility] [place] [address] Care Team Providers Care Recruiter Account Manager Name Role Phone Rodolfo Rhoades MD Primary Care Provider [phone] Marianne Bolaños Unavailable Unavailable Ariana Bagley Unavailable Unavailable Reason for Visit * Reason Onset Date Comments HCN Paperwork/Documentation Request 07/14/2025 Encounter Details Date Type Department Care Team (Late st Contact Info) Description 07/14/2025 Telephone [facility] Medicine [address] [place] [address] Rodolfo Rhoades MD [address] [place] [address] HCN Paperwork/Documentation Request Social History Tobacco Use Types Packs/Day Years [...] living in a fdc (including now)? 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 Follow-up communication and further actions as a result of this message need to be communicated with the patient directly, if the patient is not active onMyChart. If the patient is active on MyChart, they will receive notification of the communication/outcome via Social Po[employer]. documented in this encounter Plan of Treatment Upcoming Encounters Date Type Department Care Team (Late st Contact Info) Description 08/09/2025 11:40 AM EDT Office Visit [facility] [address] [place] [address] Rodolfo Rhoades MD [address] [place] [address] 08/11/2025 10:40 AM EDT Office Visit [facility] [address] [place] [address] Rodolfo Rhoades MD [address] [place] [address] documented as of this encounter [...] documented as of this encounter Care Teams Recruiter Account Manager Relationship Specialty Start Date End Date Rodolfo Rhoades MD [address] [place] [address] PCP - General Family Medicine 02/02/25 Marianne Bolaños Clinical Machinist Set Up 07/14/2507/28 Ariana Bagley Community Health Worker 07/14/25 07/14/25 documented as of this encounter
--- OUTSIDE RECORDS SUMMARY | 2025-08-02 21:18 | XMS_ITS | Encounter Summary ---
Author Organization [facility] Address [address] [place] [address] Care Team Providers Care Inspection Manager Name Role Phone Rodolfo Rhoades MD Primary Care Provider [phone] Marianne Bolaños Unavailable Unavailable Ariana Bagley Unavailable Unavailable Encounter Details Date Type Department Care Team (Latest Contact Info) Description 07/14/2025 Travel Social History Tobacco Use Types Packs/Day [...] living in a chcf (including now)? No 07/14/2025 Safety and Environment [...] 10:59 AM EDT Rama Gudino ica [place] Moving or speaking so slowly that other [...] Mindy Gudino 6. Suicidal Behavior (Lifetime) No 5 11:06 AM EDT Mindy Gudino documented as of this encounter Plan of Treatment Upcoming Encounters Date Type Department Care Team (Late st Contact Info) Description 08/09/2025 11:40 AM EDT Office Visit [facility] [place] [address] [address] [place] [address] 08/11/2025 10:40 AM EDT Office Visit [facility] [address] [place] [address] Rodolfo Rhoades MD [address] [place] [address] documented as of this encounter Visit [...] documented as of this encounter Care Teams Inspection Manager Relationship Specialty Start Date End Date Rodolfo Rhoades MD [address] [place] [address] PCP - General Family Medicine 02/02/25 Marianne Bolaños Clinical Gate Agent 07/14/2507/28 Ariana Bagley Community Health Worker 07/14/25 07/14/25 documented as of this encounter
--- OUTSIDE RECORDS SUMMARY | 2025-08-02 21:19 | XMS_ITS | Encounter Summary ---
Author Organization [facility] Address [address] [id number] Care Team Providers Care Exchange Mechanic Name Role Phone Oscar Georgette Yun APRN Primary Care Provider [phone] Veronica Goodwin LPN Unavailable Unavailable Margaret Ro Unavailable Unavailable Rodolfo Rhoades MD Primary Care Provider [phone] Marianne Bolaños Unavailable Unavailable Ariana Bagley Unavailable Unavailable Encounter Details Date Type Department Care Team (Late st Contact Info) Description 07/22/2024 Outside Procedure External Location [address] [place] [address] Provider, Swapnil [place] Social History Tobacco Use Types Packs/Day Years Used Date Smoking Tobacco: Every Day Cigarettes 12 22.7 Started: 2001 Passive Smoke Exposure: Current Smokeless [...] in a half-way (including now)? No 07/25/2024 Safety and Environment [...] Not at all 07/25/2024 3:43 PM EDT Huddleston, Shikha J Feeling down, depressed, or hopeless Not at all 07/25/2024 3:43 PM EDT Shikha Huddleston Patient Health Questionnaire -2 Score 0 07/25/2024 3:43 PM EDT Shikha Huddleston documented as of this encounter Plan of Treatment Upcoming Encounters Date Type Department Care Team (Late st Contact Info) Description 08/09/2025 11:40 AM EDT Office Visit [facility] [address] [place] [address] Rodolfo Rhoades MD [address] [place] [address] 08/11/2025 10:40 AM EDT Office Visit [facility] [address] [place] [address] Rodolfo Rhoades MD [address] [place] [address] documented as of this encounter Procedures Procedure Name Priority Date/Time Associated Diagnosis Comments ECHO, ADULT TRANSTHORACIC COMPLETE W/ COLOR AND DOPPLER 07/22/2024 6:31 AM EDT documented in this encounter Results * Echo, Adult Transthoracic Complete w/ Color and Doppler (07/22/2024 6:31 AM EDT) Anatomical Region Laterality Modality Ultrasound 07/22/2024 6:31 AM EDT Narrative 07/22/2024 12:07 PM EDT [address] [address] Name: VERONICA ALVAREZ Exam Date: 07/22/2024 : 1975 Age 48 years Gender: F Physician: VICTORIANO REYES Facility: [facility] Facility HSV: Inpatient Exam: [...] stenosis with a valve area of 0.85 recreational director (Peak grad=45mmHg, Mean grad=24mmHg, LVOT grady=2.10cm, LVOT TVI=19.3cm, Ao TVI=79.0cm). The dimensionless index is 0.24. AV peak issexqne=721tb/sec. There is a Mechanical AV prosthesis. (Peak [...] to [facility]. Legally authenticated by CINDY JORDAN 2024-07-22 12:04:58 Procedure Note Provider, [facility] - 07/22/2024 [place] [address] Name: VERONICA ALVAREZ Exam Date: 07/22/2024 : 1975 Age 48 years Gender: F Physician: VICTORIANO REYES Facility: [facility] Facility HSV: Inpatient Exam: ECHO W SPEC COLOR FLOW Reason for Study: Chest pain SUMMARY Normal LV size with normal function. The ejection fraction is 55-60%. Left ventricular filling pattern is indeterminate. There is moderate aortic stenosis (Mean grad=26mmHg, RBO=0.85cmA). There is a Mechanical AV prosthesis. INTERPRETATION [...] stenosis with a valve area of 0.85 recreational director (Peak grad=45mmHg, Mean grad=24mmHg, LVOT grady=2.10cm, LVOT TVI=19.3cm, Ao TVI=79.0cm). The dimensionless index is 0.24. AV peak hkshlhwr=690by/sec. There is a Mechanical AV prosthesis. (Peak [...] Thank you for referring NELIDAVERONICA Yun to [facility]. Legally authenticated by CINDY JORDAN 2024-07-22 12:04:58 us Generic [place] Provider CV ECHO PROCEDURES F inal Result [...] documented as of this encounter Care Teams Exchange Mechanic Relationship Specialty Start Date End Date Georgette Moore APRN [address] [place] [address] PCP - General 04/12/21 02/01/25 Rodolfo Rhoades MD [address] [place] [address] PCP - General Family Medicine 02/02/25 Veronica Goodwin LPN VAL[employer]ED [place] [address] TCM Nurse 07/25/24 08/25/24 Margaret Ro Community Health Worker 07/27/24 4 Marianne Bolaños Clinical Ground Instructor Advanced 07/14/25 07/28/25 Ariana Bagley Community Health Worker 07/14/25 07/14/25 documented as of this encounter
--- OUTSIDE RECORDS SUMMARY | 2025-08-02 21:19 | XMS_ITS | Encounter Summary ---
Author Organization [facility] Address [facility] [place] [address] Care Team Providers Care Plastics Fitter Name Role Phone Rodolfo Rhoades MD Primary Care Provider [phone] Marianne Bolaños Unavailable Unavailable Ariana Bagley Unavailable Unavailable Reason for Visit * Reason Comments Med Refill Encounter Details Date Type Department Care Team (Late st Contact Info) Description 07/07/2025 Refill [facility] [address] [place] [address] Rodolfo Rhoades MD [address] [place] [address] Social History Tobacco Use Types [...] any time in the past 12 m [facility], were you homeless or living [...] the past 12 months has th e [employer], oil, or water [employer] threatened to shut off services in your [...] EDT Office Visit [facility] [address] [place] [address] Rodolfo Rhoades MD [address] [place] [address] 08/11/2025 10:40 AM EDT Office Visit [facility] [address] [place] [address] Rodolfo Rhoades MD [address] [place] [address] documented as of this encounter [...] documented as of this encounter Care Teams Plastics Fitter Relationship Specialty Start Date End Date Rodolfo Rhoades MD [address] [place] [address] PCP - General Family Medicine 02/02/25 Marianne Bolaños Clinical Wardrobe Mistress 07/14/2507/28 Ariana Bagley Community Health Worker 07/14/25 07/14/25 documented as of this encounter
--- OUTSIDE RECORDS SUMMARY | 2025-08-02 21:19 | XMS_ITS | Encounter Summary ---
Author Organization [facility] Address [facility] [place] [address] Care Team Providers Care Benefits Sales Consultant Name Role Phone Rodolfo Rhoades MD Primary Care Provider [phone] Reason for Visit * Reason Comments Med Refill Encounter Details Date Type Department Care Team (Late st Contact Info) Description 07/09/2025 Refill [facility] [address] [place] [address] Rodolfo Rhoades MD [address] [place] [address] Social History Tobacco Use Types [...] any time in the past 12 m [facility], were you homeless or living in [...] Description 08/09/2025 11:40 AM EDT Office Visit [facility] [address] [place] [address] Rodolfo Rhoades MD [address] [place] [address] 08/11/2025 10:40 AM EDT Office Visit [facility] [address] [place] [address] Rodolfo Rhoades MD [address] [place] [address] documented as of this encounter [...] documented as of this encounter Care Teams Benefits Sales Consultant Relationship Specialty Start Date End Date Rodolfo Rhoades MD [address] [place] [address] PCP - General Family Medicine 02/02/25 documented as of this encounter
--- OUTSIDE RECORDS SUMMARY | 2025-08-02 21:19 | XMS_ITS | Encounter Summary ---
Author Organization [facility] Address [address] [id number] Care Team Providers Care Test Engineering Technician Name Role Phone Rodolfo Rhoades MD Primary Care Provider [phone] Marianne Bolaños Unavailable Unavailable Reason for Visit * Reason Comments Health Maint. Records Encounter Details Date Type Department Care Team (Late st Contact Info) Description 07/28/2025 Patient Outreach [facility] [address], [address] [place] [address] Marianne Bolaños Health Maint. (Records) [...] time in the past 12 m [facility], were you homeless or living in a care home (including now)? No 07/14/2025 Safety and Environment [...] * Progress Notes - Marianne Bolaños - 07/28/2025 11:40 AM EDT Records Request Outreach 07/28/2025 Records Request [x] Needed: Yes [x] Records Requested (check all that apply) [x] CRC [] Mammogram [] PAP [] Immunizations [] Other: Action Plan [x] Outreach completed: Follow-up Outcome: Received colonoscopy records from [facility] via fax. Sent to stat line scarlett scanned into patient's chart. [x] RR Status: Received [x] No follow-up needed Follow-up scheduled for: N/A Additional Information (if needed):N/A Completed by: Marianne Bolaños documented in this encounter Plan of Treatment Upcoming Encounters Date Type Department Care Team (Late st Contact Info) Description 08/09/2025 11:40 AM EDT Office Visit [facility] [address] [place] [address] Rodolfo Rhoades MD [address] [place] [address] 08/11/2025 10:40 AM EDT Office Visit [facility] [address] [place] [address] Rodolfo Rhoades MD [address] [place] [address] documented as of this [...] documented as of this encounter Care Teams Test Engineering Technician Relationship Specialty Start Date End Date Rodolfo Rhoades MD [address] [place] [address] PCP - General Family Medicine 02/02/25 Marianne Bolaños Clinical Machine Shop Specialist 07/14/2507/28 documented as of this encounter
--- OUTSIDE RECORDS SUMMARY | 2025-08-02 21:19 | XMS_ITS | Clinical Summary ---
[facility] Address [address] [place] [address] Care Team Providers Care Supervisor Locomotive Name Role Phone Rodolfo Rhoades MD Primary Care Provider [phone] Allergies Active Allergy Reactions Criticality Noted Date [...] Aortic valve disorder s/p AVR 06/11/2021 04/02/20 21 Overview (06/13/2021): [facility] (04/05/2020): Small reversible ischemia in posterior lateral wall. Normal LVEF. Cardiac cath at [facility] (04/2020): Normal coronary arteries. 2+ AI [...] 11/16/2020 Tobacco use Vapes non-nicotine containing substance Encounters Date Type Department Care Team Description 07/13/2025 Telephone [facility] [address] [facility] [address] [place] [address] Taz Neal MD from Last 3 Months Immunizations Immunization Administration Dates Next Due COVID-19 (PFIZER) Purple Cap Monovalent 04/05/20 21,03/08/2021 Fluzone >6mos 12/17/2016 Family History Medical History Relation Name Comments Liver disease Father Relation Name Status Comments Father Mother Alive Other Alive Sister Alive Social History Tobacco Use Types Packs/Day Years Used Date Smoking Tobacco: Every Day Cigarettes 0.5 24.7 Started: 2000 Smokeless Tobacco: Never Tobacco Cessation:Ready [...] 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 Not on file Not [...] Team (Late st Contact Info) Description 08/09/2025 10:15 AM EDT Office Visit [facility] [address] [place] [address] Kathy Saavedra, HOT PRESS OPERATOR [address] [place] [address] Health Maintenance Due Date Last Done Comments Annual Gynecologic Pelvic an d Breast Exam 1975 Pneumococcal Vaccine 0-49 (1 of 2 - PCV) 1996 TDAP/TD VACCINES (1 - Tdap) 1996 MAMMOGRAM 2017 ANNUAL PHYSICAL 03/19/2021 HEPATITIS C SCREENING 03/19/2021 COLON CANCER SCREENING 5 YEA R SIGMOIDOSCOPY 20[address] CT COLONOGRAPHY 2022 FECAL OCCULT BLOOD TEST 2022 FIT Testing (1 year) 2022 LIPID PANEL 07/25/2025 07/25/2024, 07/01, 07/22/2024, Additional history exists COVID-19 Vaccine (4 - 2024-2 6 season) 2025 11/27/2021, 04/05/2021, 03/08/2021 INFLUENZA VACCINE 08/30/2025 09/20/2020, 12/17/2016 COLOGUARD 03/20/2027 03/20/2024 COLONOSCOPY 02/24/2035 02/24/2025 COLORECTAL CANCER SCREENING 02/24/2035 Medical Devices Implanted Type Area Family Health Nurse Practitioner Device Identifier Shelf Expiration Date Model / Serial / Lot Vlv Aort Mech 19mm - [id number] - [id number] Implanted:Qty : 1 on 06/11/2021 by Taz Cespedes MD at [facility] Implant N/A: Heart [employer] [id number] 01/01/2025 [id number] / [id number] / Appl Clip Evelyn Atriclip Flx 35mm - [id number] Implanted:Qty : 1 on 06/11/2021 by Taz Cespedes MD at [facility] Implant N/A: Heart ATRICURE 02/29/2024 [id number] / [id number] Procedures Procedure Name Priority Date/Time Associated Diagnosis Comments LIPID PANEL STAT 04/19/2021 9:30 AM EDT from Last 3 Months or Most Recently Relevant to Health Maintenance Results * Lipid Panel (04/19/2021 9:30 AM EDT) Total Cholesterol 146 0 - 200 mg/dL 04/19/2021 10:14 AM EDT [facility] Triglycerides 67 0 - 150 mg/dL 04/19/2021 10:14 AM EDT [facility] HDL Cholesterol 58 40 - 60 mg/dL 04/19/2021 10:14 AM EDT [facility] LDL Cholesterol 75 0 - 100 mg/dL 04/19/2021 10:14 AM EDT [facility] VLDL Cholesterol 13 5 - 40 mg/dL 04/19/2021 10:14 AM EDT [facility] LDL/HDL Ratio 1.29 04/19/2021 10:14 AM EDT [facility] Blood Line / Unknown 04/19/2021 9: 30 AM EDT 04/19/2021 9:40 AM EDT Narrative [facility] - 04/19/2021 10:14 AM EDT Cholesterol [...] Saavedra APRN LAB BLOOD ORDERABLES Final Result [facility]
[address] [place] [address], from Last 3 Months or Most Recently [...] pulse or is breathing): Full Care Teams Supervisor Locomotive Relationship Specialty Start Date End Date Rodolfo Rhoades MD [address] [place] [address] PCP - General Family Medicine 04/05/25
--- OUTSIDE RECORDS SUMMARY | 2025-08-02 21:19 | XMS_ITS | Clinical Summary ---
Author Organization [facility] Address [address] [id number] Care Team Providers Care Consultant Nurse Name Role Phone Rodolfo Rhoades MD Primary Care Provider [phone] Allergies Active Allergy Reactions Criticality Noted Date [...] mg) by mouth daily. 10/26/20 24 Active albuterol 108 (90 Base) MCG/ACT inhalerIndicati [...] one. 300 mL 2 06/07/20 25 Active alendronate (Fosamax) 70 MG tabletIndicatio [...] A DAY 4 g 07/10/20 25 Active furosemide (Lasix) 40 MG tablet Take 1 tablet by mouth daily. 30 tablet 2 07/14/20 25 Active alendronate (Fosamax) 70 MG tabletIndicatio ns:Low vitamin D level Take 1 tablet (70 mg) by mouth every 7 (seven) days. Take in the morning with a full glass of water, on an empty stomach, and do not take anything else by mouth or lie down for the next 30 min. 12 tablet 3 07/25/20 24 2024 Discontinued ergocalciferol (Vitamin D-2) 1.25 MG (05713 UT) capsule Take 1 capsule (50,000 Units) by mouth 1 (one) time per week. 12 capsule 1 01/24/20 25 2024 Discontinued(T herapy completed) dilTIAZem CD (Cardizem CD) 120 MG 24 hr capsule Take 1 capsule (120 mg) by mouth daily. 30 capsule 01/24/20 25 2024 Discontinued(P er Patient Report) tiotropium-olod aterol (Stiolto Respimat) 2.5-2.5 MCG/ACT aerosol solution inhaler Inhale 2 Inhalations daily. 4 g 05/24/20 25 2024 Discontinued fluconazole (Diflucan) 150 MG tabletIndicatio ns:Fungal infection Take one tab now. Repeat in 3 days if symptoms persist. 2 tablet 06/15/202024 Discontinued(T herapy completed) furosemide (Lasix) 20 MG tablet Take 1 tablet by mouth daily. 06/22/20 25 2024 Discontinued(D ose adjustment) Active Problems Problem Noted Date Diagnosed Date [...] Encounters Date Type Department Care Team Description 07/28/2025 Patient Outreach POPULATION [address], [address] [address] [facility] 07/28/2025 Patient Outreach POPULATION [address], [facility] [address] [place] [address] [facility]. (Records) 07/14/2025 10:40 AM EDT Office Visit [facility] [address] [place] [address] Rodolfo Rhoades MD Chronic fatigue (Primary Dx); Essential hypertension; Pitting edema; Heart failure with preserved ejection fraction, unspecified HF chronicity (CMS/HCC) 07/14/2025 Results Follow-Up [facility] [address] [place] [address] Rodolfo Rhoades MD 07/14/2025 Telephone [facility] [address] [place] [address] Rodolfo Rhoades MD HCN Paperwork/Documenta tion Request 07/14/2025 Patient Outreach [address], [address] [place] [address] Ariana Bagley [facility] 07/14/2025 Patient Outreach [address], [address] [place] [address] Mami Marianne [facility]. (Records) 07/14/2025 Travel 07/09/2025 Refill [facility] [address] [place] [address] Rodolfo Rhoades MD 07/07/2025 Refill [facility] [address] [place] [address] Rodolfo Rhoades MD 07/07/2025 Refill [facility] [address] [place] [address] Jocelyn Velez, DERRELL, DNP Low vitamin D level 07/05/2025 Telephone [facility] [address] [place] [address] Rodolfo Rhoades MD HCN Clinical Concern/Question 06/15/2025 Orders Only [facility] [address] [place] [address] Rodolfo Rhoades MD Fungal infection (Primary Dx) 06/15/2025 Telephone [facility] [address] [place] [address] Rodolfo Rhoades MD HCN - Patient Message 06/07/2025 11:40 AM EDT Office Visit [facility] [address] [place] [address] Rodolfo Rhoades MD Chronic fatigue (Primary Dx); Pulmonary emphysema, unspecified emphysema type (CMS/HCC); Essential hypertension; Vitamin D deficiency; Elevated LFTs; Bacterial sinusitis; Dysuria; Pitting edema; Low blood sugar 06/07/2025 Travel 05/22/2025 Refill [facility] [address] [place] [address] Rodolfo Rhoades MD from Last 3 Months Immunizations Immunization Administration Dates Next Due Influenza, injectable, quadrivalent 12/17/2016 Influenza, injectable, quadr ivalent, preservative free 09/20/2020 Influenza, seasonal, injecta ble, preservative free 12/17/2016 Visys-OUYA COVID-19 Vac cine (Purple Cap) 12+ 11/27/2021,04/05/2021,03/08/2021 Family History Medical History Relation Name Comments No Known Problems Daughter Alcohol abuse Father Cirrhosis Father Cancer Maternal Grandfather Jaya [place] Heart disease Maternal Grandmother Starr Collins Stroke Maternal Grandmother Starr Collins Arthritis Mother Em [place] COPD Mother Em [place] Heart attack Mother Em [place] Osteoporosis Mother Em [place] Throat cancer Paternal Grandfather No Known Problems Paternal Grandmother Drug abuse Sister 1 Alcohol abuse Sister 2 Radha Maria Mental illness Sister 2 Radha Maria Autism Son Relation Name Status Comments Daughter Alive Father Maternal Grandfather Jaya [place] Alive Maternal Grandmother Starr Collins Alive Mother Em [place] Alive Other Paternal Grandfather Paternal Grandmother Sister 1 Alive Sister 2 Radha Maria Alive Son Alive Social History Tobacco Use [...] living in a fpc (including now)? No 07/14/2025 Safety and Environment [...] Recorded In the past 12 months has [employer] electric, gas, oil, or water company threatened [...] Mass Index 21.65 07/14/2025 10:48 AM EDT Plan of Treatment Upcoming Encounters Date Type Department Care Team (Late st Contact Info) Description 08/09/2025 11:40 AM EDT Office Visit [facility] [address] [place] [address] Rodolfo Rhoades MD [address] [place] [address] 08/11/2025 10:40 AM EDT Office Visit [facility] [address] [place] [address] Rodolfo Rhoades MD [address] [place] [address] Health Maintenance Due Date Last Done Comments [facility]-HIV Screening 1975 [facility]-/Child/Adol SDOH Screenings 1975 [facility]-DTaP,Tdap,and Td Vaccines (1 - Tdap) 1996 [facility]-Hepatitis B Vaccines (1 of 3 - 19+ 3-dose series) 1996 [facility]-Pneumococcal Vaccine: Pediatrics (0 to 5 Years) and At-Risk Patients (6 to 49 Years) (1 of 2 - PCV) 1996 CT Colonography 2022 FIT-DNA 2022 FIT 2022 FOBT 2022 Sigmoidoscopy 2022 ITN-KICMO-05 Vaccine ( season) 2025 11/27/2021, 04/05/2021, 03/08/2021 [facility]-Influenza Vaccine (#1) 07/31/202509/20, 12/17/2016, 12/17/2016 [facility]- SDOH Screenings 01/14/2026 [facility]-Adult SDOH Screenings 01/14/2026 07/14/2025 [facility]-Depression Screening 07/14/2026 07/14/2025, 0803/2025 [facility]-Zoster Vaccines (1 of 2) 2027 Colonoscopy 02/24/2035 02/24/2025 [facility]-Colorectal Cancer Screening 02/24/2035 [facility]-Hepatitis C Screening Completed 04/03/2021 [facility]-Diabetes: Hemoglobin [...] 12:23 PM EDT Essential hypertension Pitting edema INSULIN, RANDOM Routine 06/07/2025 1:03 [...] 03/27/2025 12:35 PM EDT Low blood sugar COLONOSCOPY EXTERNAL RESULT 02/24/2025 ACUTE HEPATITIS PANEL Routine 04/03/2021 11:21 AM EDT from Last 3 Months or Most Recently Relevant to Health Maintenance Results * (ABNORMAL) N-Terminal Probnp, Plasma (07/14/2025 12:23 PM EDT) Only the most recent of2 resultswithin the time period is included. N-Terminal, PROBNP, Plasma 967(H) 0 - 449 pg/mL 07/14/2025 7:35 PM EDT [facility] Blood Venous blood specimen / Unknown Venipuncture / Unknown 07/14/2025 12:23 PM EDT 07/14/2025 12:23 PM EDT us Rodolfo Rhoades MD LAB BLOOD ORDERABLES Final Res ult [facility] [address] [place] [address] * (ABNORMAL) CBC and Differential (07/14/2025 12:23 PM EDT) Only the most recent of2 resultswithin the time period is included. WBC Count 10.35(H) 3.70 - 10.30 10*3/uL LAB HEMATOLOGY METHOD 07/14/2025 7:14 PM EDT [facility] RBC Count 4.50 3.90 - 5.20 10*6/uL LAB HEMATOLOGY METHOD 07/14/2025 7:14 PM EDT [facility] HGB 13.9 11.2 - 15.7 g/dL LAB HEMATOLOGY METHOD 07/14/2025 7:14 PM EDT [facility] HCT 43.2 34.0 - 45.0 % LAB HEMATOLOGY METHOD 07/14/2025 7:14 PM EDT [facility] Platelet Count 323 155 - 369 10*3/uL LAB HEMATOLOGY METHOD 07/14/2025 7:14 PM EDT [facility] MCV 96 79 - 98 fL LAB HEMATOLOGY METHOD 07/14/2025 7:14 PM EDT [facility] MCH 30.9 26.0 - 32.0 pg LAB HEMATOLOGY METHOD 07/14/2025 7:14 PM EDT [facility] MCHC 32.2 30.7 - 35.5 g/dL LAB HEMATOLOGY METHOD 07/14/2025 7:14 PM EDT [facility] RDW 13.5 11.5 - 14.5 % LAB HEMATOLOGY METHOD 07/14/2025 7:14 PM EDT [facility] MPV 10.3 8.8 - 12.5 fL LAB HEMATOLOGY METHOD 07/14/2025 7:14 PM EDT [facility] nRBC 0.0 <=0.0 per 100 WBCs LAB HEMATOLOGY METHOD 07/14/2025 7:14 PM EDT [facility] Differential Type Automated LAB HEMATOLOGY METHOD 07/14/2025 7:14 PM EDT [facility] Neutrophils % 58 % LAB HEMATOLOGY METHOD 07/14/2025 7:14 PM EDT [facility] Lymphocytes % 22 % LAB HEMATOLOGY METHOD 07/14/2025 7:14 PM EDT [facility] Monocytes % 10 % LAB HEMATOLOGY METHOD 07/14/2025 7:14 PM EDT [facility] Eosinophils % 7 % LAB HEMATOLOGY METHOD 07/14/2025 7:14 PM EDT [facility] Basophils % 1 % LAB HEMATOLOGY METHOD 07/14/2025 7:14 PM EDT [facility] Immature Granulocytes % 2 % LAB HEMATOLOGY METHOD 07/14/2025 7:14 PM EDT [facility] Neutrophils Absolute 6.13(H) 1.60 - 6.10 10*3/uL LAB HEMATOLOGY METHOD 07/14/2025 7:14 PM EDT [facility] Lymphocytes Absolute 2.25 1.20 - 3.90 10*3/uL LAB HEMATOLOGY METHOD 07/14/2025 7:14 PM EDT [facility] Monocytes Absolute 0.98(H) 0.30 - 0.90 10*3/uL LAB HEMATOLOGY METHOD 07/14/2025 7:14 PM EDT [facility] Eosinophils Absolute 0.67(H) 0.00 - 0.50 10*3/uL LAB HEMATOLOGY METHOD 07/14/2025 7:14 PM EDT [facility] Basophils Absolute 0.08 0.00 - 0.10 10*3/uL LAB HEMATOLOGY METHOD 07/14/2025 7:14 PM EDT [facility] Immature Granulocytes Absolute 0.24(H) 0.00 - 0.06 10*3/uL LAB HEMATOLOGY METHOD 07/14/2025 7:14 PM EDT [facility] Blood Venous blood specimen / Unknown Venipuncture / Unknown 07/14/2025 12:23 PM EDT 07/14/2025 12:23 PM EDT Narrative [facility] - 07/14/2025 7:14 PM EDT Therapeutic decision making should be based on absolute values, rather than percentages. us Rodolfo Rhoades MD LAB BLOOD ORDERABLES Final Res ult [facility] [address] [place] [address] * Basic Metabolic Panel, Plasma (07/14/2025 12:23 PM EDT) Glucose, Plasma 76 74 - 99 mg/dL 07/14/2025 7:35 PM EDT [facility] BUN, Plasma 8 7 - 21 mg/dL 07/14/2025 7:35 PM EDT [facility] Creatinine, Plasma 0.84 0.60 - 1.10 mg/dL 07/14/2025 7:35 PM EDT [facility] BUN/Creatinine Ratio 10 07/14/2025 7:35 PM EDT [facility] Sodium, Plasma 139 136 - 145 mmol/L 07/14/2025 7:35 PM EDT [facility] Potassium, Plasma 3.7 3.6 - 4.9 mmol/L 07/14/2025 7:35 PM EDT [facility] Chloride, Plasma 103 97 - 107 mmol/L 07/14/2025 7:35 PM EDT [facility] CO2, Plasma 26 22 - 29 mmol/L 07/14/2025 7:35 PM EDT [facility] Anion Gap 10 6 - 16 mmol/L 07/14/2025 7:35 PM EDT [facility] Total Calcium, Plasma 10.0 8.9 - 10.2 mg/dL 07/14/2025 7:35 PM EDT [facility] eGFRcr 86.4 mL/min/1.7 3m*2 07/14/2025 7:35 PM EDT [facility] Comment:Reported eGFRcr in m L/min/1.73m2 is based the CKD-EPI 2020 equation that does not use a race coefficient. Blood Venous blood specimen / Unknown Venipuncture / Unknown 07/14/2025 12:23 PM EDT 07/14/2025 12:23 PM EDT us Rodolfo Rhoades MD LAB BLOOD ORDERABLES Final Res ult Performing Organization Address [facility] Co de Phone Number [facility] [address] [place] [address] * Insulin, random (06/07/2025 1:03 PM EDT) Insulin 7.0 3.0 - 16.0 uU/mL 06/07/2025 7:[address] [facility] Blood Venous blood specimen / Unknown Venipuncture / Unknown 06/07/2025 1:03 PM EDT 06/07/2025 1:03 PM EDT us Rodolfo Rhoades MD LAB BLOOD ORDERABLES Final Res ult Performing Organization Address [facility] de Phone Number [facility] [address] [place] [address] * Vitamin D 25 Hydroxy (06/07/2025 1:03 PM EDT) Vitamin D 25 Hydroxy 34.8 20.0 - 80.0 ng/mL 06/07/2025 7:[address] [facility] Blood Venous blood specimen / Unknown Venipuncture / Unknown 06/07/2025 1:03 PM EDT 06/07/2025 1:03 PM EDT Narrative [facility] - 06/07/2025 7:03 PM EDT Testing performed on Elizalde Carrier Packer, standardized against NIST SRM [id number]. When testing [...] ORDERABLES Final Res ult Performing Organization Address City/[facility]/ZIP Co de Phone Number [facility] [address] [place] [address] * C-peptide (06/07/2025 1:03 PM EDT) C Peptide 2.43 0.81 - 5.30 ng/mL 06/07/2025 7:08 PM EDT [facility] Blood Venous blood specimen / Unknown Venipuncture / Unknown 06/07/2025 1:03 PM EDT 06/07/2025 1:03 PM EDT Rodolfo Rhoades MD LAB BLOOD ORDERABLES Final Res ult Performing Organization Address [facility] Co de Phone Number [facility] [address] [place] [address] * Urinalysis with reflex microscopic (Culture NOT Included) (06/07/2025 1:03 PM EDT) Color, Urine Yellow LAB URINALYSIS - AUTOMATED METHOD 06/07/2025 6:35 PM EDT [facility] Clarity, Urine Clear LAB URINALYSIS - AUTOMATED METHOD 06/07/2025 6:35 PM EDT [facility] Spec [place], Urine 1.010 1.005 - 1.030 LAB URINALYSIS [...] 1:03 PM EDT Rodolfo Rhoades MD LAB URINE ORDERABLES Final Res ult Performing Organization Address [facility] Co de Phone Number [facility] [address] [place] [address] * Thyroid Stimulating Hormone, Plasma (06/07/2025 1:03 [...] Res ult [facility] [address] [place] [address] * Free T4, Plasma (06/07/2025 1:03 PM [...] Res ult [facility] [address] [place] [address] * Comprehensive Metabolic Panel, Plasma (06/07/2025 1:03 [...] Res ult [facility] [address] [place] [address] * Hemoglobin A1c (03/27/2025 12:35 PM EDT) Hemoglobin A1c 5.4 <5.7 % 03/28/2025 3:54 PM EDT [facility] Blood [...] Adults <6.0% Children and Adolescents <7.5% Source: [place] [employer]. Standards of medical care in diabetes,2017. Diabetes Care.2017:40 (suppl 1):S1-S135. us Rodolfo Rhoades MD LAB BLOOD ORDERABLES Final Res ult Performing Organization Address City/[facility]/ZIP Co de Phone Number [facility] [address] [place] [address] * Colonoscopy External Result (02/24/2025) Anatomical Region Laterality Modality Endoscopy Narrative 02/24/2025 Ordered by an unspecified provider. us External Provider GI PROCEDURE ORDERABLES Final Result * Acute Hepatitis Panel (04/03/2021 11:21 AM EDT) Hepatitis B Surf Antigen NEGATIVE Reference Value: Negative [facility] Hepatitis C Antibody NEGATIVE Reference Range: Negative [facility] Hepatitis A Antibody IgM NEGATIVE Reference Value: Negative [facility] External Hepatitis B Core IgM (HBCM) NEGATIVE Reference Value: Negative [facility] 04/03/2021 11:2 1 AM EDT 04/03/2021 1:23 PM EDT us Georgette Moore APRN LAB BLOOD ORDERABLES Final Result Performing Organization Address City/[facility] Co de Phone Number [facility] from Last 3 Months or Most Recently Relevant to Health Maintenance Insurance [employer] [facility] Care Teams Consultant Nurse Relationship Specialty Start Date End Date Rodolfo Rhoades MD [address] [place] [address] PCP - General Family Medicine 02/02/25
--- OUTSIDE RECORDS SUMMARY | 2025-08-02 21:19 | XMS_ITS | Encounter Summary ---
Author Organization Healthcare Address [address] [id number] Care Team Providers Care Place Change Roof Bolter Name Role Phone Oscar Georgette Yun APRN Primary Care Provider [phone] Veronica Goodwin LPN Unavailable Unavailable Margaret Ro Unavailable Unavailable Rodolfo Rhoades MD Primary Care Provider [phone] Marianne Bolaños Unavailable Unavailable Ariana Bagley Unavailable Unavailable Encounter Details Date Type Department Care Team (Late st Contact Info) Description 07/21/2024 Outside Procedure External Location [address] [place] [address] Provider, Swapnil [place] Social History Tobacco Use [...] in a mcc (including now)? No 07/25/2024 Safety and Environment [...] Office Visit [facility] Medicine [address] [place] [address] Rodolfo Rhoades MD [address] [place] [address] 08/11/2025 10:40 AM EDT [facility] [address] [place] [address] Rodolfo Rhoades MD [address] [place] [address] documented as of this encounter Procedures Procedure Name Priority Date/Time Associated Diagnosis Comments XR CHEST 1 VIEW 07/21/2024 4:03 PM EDT documented in this encounter Results * XR Chest 1 View (07/21/2024 4:03 PM EDT) Anatomical Region Laterality Modality Chest Digital Radiogra phy 07/21/2024 4:03 PM EDT Narrative 07/21/2024 4:31 PM EDT [place] [id number] Name: VERONICA ALVAREZ Exam Date: 07/21/2024 : 1975 Age 48 years Gender: F Physician: PAOLA PIZARRO Facility: [facility] Facility HSV: Outpatient Exam: CHEST [...] Thank you for referring VERONICA ALVAREZ to [facility]. Legally authenticated by NATALIE CULVER 2024-07-21 16:12:48 Procedure Note Provider, Generic [place] - 07/21/2024 [place] [address] Name: VERONICA ALVAREZ Exam Date: 07/21/2024 : 1975 Age 48 years Gender: F Physician: PAOLA PIZARRO Facility: [facility] Facility HSV: Outpatient Exam: CHEST [...] Thank you for referring VERONICA ALVAREZ to [facility]. Legally authenticated by NATALIE CULVER 2024-07-21 16:12:48 Generic [place] Provider IMG XR PROCEDURES Fi nal Result [...] documented as of this encounter Care Teams Place Change Roof Bolter Relationship Specialty Start Date End Date Georgette Moore APRN [address] [place] [address] PCP - General 04/12/21 02/01/25 Rodolfo Rhoades MD [address] [place] [address] PCP - General Family Medicine 02/02/25 Veronica Goodwin LPN [employer] [place] [address] TCM Nurse 07/25/24 08/25/24 Margaret Ro Community Health Worker 07/27/24 4 [employer]ages[employer]arianne Clinical Music Copyist 07/14/25 07/28/25 Ariana Bagley Community Health Worker 07/14/25 07/14/25 documented as of this encounter
--- OUTSIDE RECORDS SUMMARY | 2025-08-02 21:19 | XMS_ITS | Encounter Summary ---
[facility] Organization [facility] Address [address] [place] [address] Care Team Providers Care Sales Incentive Analyst Name Role Phone Rodolfo Rhoades MD Primary Care Provider [phone] Encounter Details Date Type Department Care Team (Late st Contact Info) Description 07/13/[address] 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 ADVISED SHE HAS THE SOONEST APPT. PT VERBALIZED UNDERSTANDING * Telephone Encounter - Ramona Escobar RN - 07/13/2025 3:38 PM EDT Patient called to request her appt be changed from Jack[place] to Dr. Neal because she has a lot of things going on, edema, shortness of breath, feels she needs to be seen by him instead. She did see in [place], she does not wish to continue care with their practice. Have requested records for review because she states he did some testing. I strongly encouraged her to keep current appt as it may be quite a while to see Dr. Neal. She asked to be transferred to scheduling to change appt. documented in this encounter Plan of Treatment Upcoming Encounters Date Type Department Care Team (Late st Contact Info) Description 08/09/2025 10:15 AM EDT Office Visit [facility] [address] [place] [address] Kathy Saavedra APRN [address] [place] [address] documented as of this encounter Visit Diagnoses Not on filedocumented in this encounter Care Teams Sales Incentive Analyst Relationship Specialty Start Date End Date Rodolfo Rhoades MD [address] [place] [address] PCP - General Family Medicine 04/05/25 documented as of this encounter
--- OUTSIDE RECORDS SUMMARY | 2025-08-02 21:19 | XMS_ITS | Encounter Summary ---
Author Organization [facility] Address [facility] [place] [address] Care Team Providers Care Rug Shampooer Name Role Phone Rodolfo Rhoades MD Primary Care Provider [phone] Marianne Bolaños Unavailable Unavailable Ariana Bagley Unavailable Unavailable Reason for Visit * Reason Onset Date Comments [facility] Clinical Concern/Question 07/06/2025 Encounter Details Date Type Department Care Team (Late st Contact Info) Description 07/05/2025 Telephone [facility] Medicine [address] [place] [address] Rodlofo Rhoades MD [address] [place] [address] [facility] Clinical Concern/Question Social History [...] th e electric, gas, oil, or water [employer] threatened to shut off services in your [...] clinic, returning Mindy's call. Best contact number: [phone] (home) Optimal time of day to reach [...] will receive notification of the communication/outcome via [employer]t. * Telephone Encounter - Mindy Gudino - 07/06/2025 8:57 AM EDT Called left vm. * Telephone Encounter - Jayde Treadwell - 07/05/2025 3:14 PM EDT Clinical Concern/Question Reason for Call: Pt wants to let know that she missed her appt today because she doesn't have any transportation and she couldn't call until now to [facility] because her phone got cut off. She says she's still having the swelling and now she's having a burning feeling in her legs and feet. She's taking her water pills and trying to keep her feet elevated when she can. Is there anything can recommend? She can't come back until 07/21 due to transportation. Pls advise. Thanks. Best contact number: [phone] (home) Optimal time of day to reach caller: ANYTIME Additional comments/information from caller: None Note: Please do not reply to this message. Follow-up communication and further actions as a result of this message need to be communicated with the patient directly, if the patient is not active onMyChart. If the patient is active on MyChart, they will receive notification of the communication/outcome via [employer]. documented in this encounter Plan of Treatment Upcoming Encounters Date Type Department Care Team (Late st Contact Info) Description 08/09/2025 11:40 AM EDT Office Visit [facility] [address] [place] [address] Rodolfo Rhoades MD [address] [place] [address] 08/11/2025 10:40 AM EDT Office Visit [facility] [address] [place] [address] Rodolfo Rhoades MD [address] [place] [address] documented as of this encounter [...] documented as of this encounter Care Teams Rug Shampooer Relationship Specialty Start Date End Date Rodolfo Rhoades MD [address] [place] [id number] PCP - General Family Medicine 02/02/25 Marianne Bolaños Clinical Rug Shampooer 07/14/2507/28 Ariana Bagley Community Health Worker 07/14/25 07/14/25 documented as of this encounter
--- OUTSIDE RECORDS SUMMARY | 2025-08-02 21:19 | XMS_ITS | Encounter Summary ---
Author Organization [facility] Address [address] [id number] Care Team Providers Care Poultry Husbandry Teacher Name Role Phone Rodolfo Rhoades MD Primary Care Provider [phone] Marianne Bolaños Unavailable Unavailable Reason for Visit * Reason Comments Health Maint. Records Encounter Details Date Type Department Care Team (Late st Contact Info) Description 07/28/2025 Patient Outreach [facility] [address] [place] [address] Marianne Bolaños Health Maint. (Records) [...] any time in the past 12 m [facility], were you homeless or living in a prison (including now)? No 07/14/2025 Safety and Environment [...] Progress Notes - Marianne Bolaños - 07/28/2025 8:30 AM EDT Records Request Outreach 07/28/2025 Records Request [x] Needed: Yes [x] Records Requested (check all that apply) [x] CRC [] Mammogram [] PAP [] Immunizations [] Other: Action Plan [x] Outreach completed: 2nd Attempt Outcome: Requested records for provider. [x] RR Status: Submitted [x] Other - specify: Re-faxed records request to [facility]. Waiting for response. Follow-up scheduled for: 08/15/2025 Additional Information (if needed): N/A Completed by: Marianne Bolaños documented in this encounter Plan of Treatment Upcoming Encounters Date Type Department Care Team (Late st Contact Info) Description 08/09/2025 11:40 AM EDT Office Visit [facility] [address] [place] [address] Rodolfo Rhoades MD [address] [place] [address] 08/11/2025 10:40 AM EDT Office Visit [facility] [address] [place] [address] Rodolfo Rhoades MD [address] [place] [address] documented as of this encounter Visit Diagnoses Not on filedocumented in this encounter Additional Health Concerns Assessment Noted Time PHQ-9 Depression Total Score: 11 07/14/ 025 10:59 AM EDT A fall risk assessment has been complete d for the patient 03/19/2023 1:57 PM EDT A Body Mass Index follow-up plan has been documented for the patient 06/08/2025 12:14 AM EDT documented as of this encounter Care Teams Poultry Husbandry Teacher Relationship Specialty Start Date End Date Rodolfo Rhoades MD [address] [place] [id number] PCP - General Family Medicine 02/02/25 Marianne Bolaños Clinical Pie Maker 07/14/2507/28 documented as of this encounter
--- OUTSIDE RECORDS SUMMARY | 2025-08-02 21:19 | XMS_ITS | Encounter Summary ---
Author Organization [facility] Address [facility] [place] [address] Care Team Providers Care Drainlayer Name Role Phone Rodolfo Rhoades MD Primary Care Provider [phone] Reason for Visit * Reason Comments Med Refill Encounter Details Date Type Department Care Team (Late st Contact Info) Description 07/07/2025 Refill [facility] [address] [place] [address] Jocelyn Velez, ACID WASH OPERATOR, DNP [address] [place] [address] Low vitamin D level Social [...] any time in the past 12 m [facility], were you homeless or living [...] Visit [facility] [address] [place] [address] Rodolfo Rhoades MD [address] [place] [address] 08/11/2025 10:40 AM EDT Office Visit [facility] [address] [place] [address] Rodolfo Rhoades MD [address] [place] [address] documented as of this encounter [...] documented as of this encounter Care Teams Drainlayer Relationship Specialty Start Date End Date Rodolfo Rhoades MD [address] [place] [address] PCP - General Family Medicine 02/02/25 documented as of this encounter
--- NOTE | 2025-08-02 21:28 | HMH.EDGENADL ---
Discharge Plan Disposition Patient Disposition: Home, Self-Care Prescriptions Prescriptions: New cephalexin 500 mg capsule 500 mg PO Q6H 7 Days Qty: 28 0RF No Action albuterol sulfate 90 mcg/actuation HFA aerosol inhaler 2 puff INHALATION Q4-6H PRN (Reason: shortness of breath or wheezing) Qty: 6.7 0RF fluticasone propionate 50 mcg/actuation spray,suspension 1 spray INTRANASAL DAILY Patient Comments: USE 1 SPRAY IN EACH NOSTRIL DAILY clonidine HCl 0.1 mg tablet 0.1 mg PO DAILY PRN (Reason: Blood Pressure) ergocalciferol (vitamin D2) 1,250 mcg (50,000 unit) capsule 1,250 mcg PO WEEKLY buprenorphine-naloxone 8-2 mg tablet, sublingual 1.5 tab sublingual ONCE Stiolto Respimat 2.5-2.5 mcg/actuation mist 2 inh inhalation DAILY metoprolol succinate [Toprol XL] 25 mg tablet extended release 24 hr 25 mg PO DAILY Qty: 90 2RF alendronate 70 mg tablet 70 mg PO WEEKLY Patient Comments: TAKE 1 TABLET BY MOUTH ONCE EVERY 7 DAYS ON AN EMPTY STOMACH WITH A FULL GLASS OF WATER. DO NOT LIE DOWN OR TAKE ANYTHING ELSE FOR 30 MINUTES furosemide [Lasix] 20 mg tablet 20 mg PO DAILY Qty: 30 3RF lisinopril 5 mg tablet 5 mg PO DAILY PRN (Reason: Blood Pressure) Qty: 30 11RF clonazepam 0.5 mg tablet 0.5 mg PO TID 30 Days Qty: 90 1RF Rx Instructions: 1/2 to 1 tab TID prn anxiety warfarin 5 mg tablet 5 mg PO MOWEFR warfarin 5 mg tablet 7.5 mg PO SUTUTH Referrals Follow up/Referrals: Rodolfo Rhoades MD [Primary Care Provider, Family Practice] - See instructions Activity Restrictions/Add. Instructions Additional Instructions/Restrictions: Your workup today shows cellulitis of your right foot. You are being prescribed Keflex, an antibiotic to help treat the infection. Take this as prescribed. Follow-up with your primary care doctor if symptoms do not improve. I do encourage you to see your dietist tomorrow as scheduled. If you develop any new or worsening symptoms, or if you become concerned for your health for any reason, return to the emergency department for evaluation Clinical Impressions Clinical Impression: Cellulitis of foot Print Language Print Language: Belarusian Discharge ED Provider: Bassem Jones General Adult HPI <Cynthia Garner - Last Filed: 08/02/25 21:53> General Chief complaint: PAIN Stated complaint: Pain in both legs, waking her up Time Seen by Provider: 08/02/25 21:28 Mode of Arrival: Ambulatory Source of Information: Patient Description of Symptoms (Recalled from ER Triage Doc. by RN): patient present to the ED for bilateral leg pain. Patient stated as of this morning she could no longer walk. Patient has a noticeably red right foot/ankle. righyt ankle is warm to the touch. History of Present Illness HPI narrative: 49-year-old female presents the emergency department with complaints of pain, edema, erythema to her right ankle and foot for the past several days. She denies any known injury to the area. She also states she has had pain in her bilateral lower lower extremities. Denies fevers. Reports she does take Lasix regularly. Related Data Home Medications ?Medication ?Instructions ?Recorded ?Confirmed fluticasone propionate 50 1 spray intranasal DAILY Allergy 12/24/20 06/22/25 mcg/actuation nasal symptoms spray,suspension clonidine HCl 0.1 mg tablet 0.1 mg PO DAILY PRN Blood Pressure 01/12/23 06/22/25 warfarin 5 mg tablet 5 mg PO MOWEFR Blood thinner 01/12/23 06/22/25 warfarin 5 mg tablet 7.5 mg PO SUTUTHSA 02/17/25 06/22/25 buprenorphine 8 mg-naloxone 2 mg 1.5 tab sublingual ONCE 02/20/25 06/22/25 sublingual tablet ergocalciferol (vitamin D2) 1,250 1,250 mcg PO WEEKLY 02/20/25 06/22/25 mcg (50,000 unit) capsule tiotropium 2.5 mcg-olodaterol 2.5 2 inh inhalation DAILY 02/20/25 06/22/25 mcg/actuation mist for inhalation (Stiolto Respimat) alendronate 70 mg tablet 70 mg PO WEEKLY 06/22/25 06/22/25 Previous Rx's ?Medication ?Instructions ?Recorded albuterol sulfate 90 mcg/actuation 2 puff inhalation Q4-6H PRN 07/31/20 aerosol inhaler shortness of breath or wheezing #6.7 grams lisinopril 5 mg tablet 5 mg PO DAILY PRN Blood Pressure 05/11/25 #30 tabs metoprolol succinate 25 mg 25 mg PO DAILY #90 tabs 05/23/25 tablet,extended release 24 hr (Toprol XL) furosemide 20 mg tablet (Lasix) 20 mg PO DAILY #30 tabs 06/22/25 clonazepam 0.5 mg tablet 0.5 mg PO TID 30 days #90 tabs 08/01/25 cephalexin 500 mg capsule 500 mg PO Q6H 7 days #28 caps 08/02/25 Allergies Allergy/AdvReac Type Severity Reaction Status Date / Time ibuprofen (IBUPROFEN) Allergy Unknown SOB Verified 06/22/25 14:46 tramadol (TRAMADOL) Allergy Unknown HEART RACES Verified 06/22/25 14:46 PFS <Cynthia Patsy - Last Filed: 08/02/25 21:53> [facility] Disclaimer: The information contained in this section may have been updated after the patient was seen, as this information can be updated by other users. Medical History (Updated 08/02/25 @ 23:34 by Bassem Jones MD) (HFpEF) heart failure with preserved ejection fraction Sleep apnea History of COVID-19 COPD (chronic obstructive pulmonary disease) Osteoporosis History of gastroesophageal reflux (GERD) Ringing in ears Fatigue Daytime somnolence History of heart attack Hypertension SOB (shortness of breath) Abnormal electrocardiogram [ECG] [EKG] Mixed stress and urge urinary incontinence Generalized anxiety disorder Carotid artery stenosis Abnormal cardiovascular stress test Tobacco dependence syndrome Typical angina Surgical History H/O mechanical aortic valve replacement History of hysterectomy H/O aortic valve replacement Family History Other Cancer Stroke Social History Smoking Status: Current every day smoker tobacco type: cigarettes packs per day: 1 second hand exposure: Yes alcohol intake: never substance use type: denies use current occupational status: employed and unemployed Travel in the last 8 weeks?: None household members: children housing: house number of children: 3 current occupation: [employer] current occupational exposures/hazards: No caffeine: Yes Have you lived/traveled outside [place] in past 30 days?: No Contact w/someone who lives/traveled outside US past 30 days?: No Exposure to someone with infectious disease in past 14 days?: No Do you have a fever (greater than 100.4 F or 38 C)?: No Have you tested positive for COVID-19?: No Exposed to someone with COVID-19 in past 14 days?: No Do you have a sore throat?: No Do you have a cough?: No Do you have any weakness?: No Do you have any diarrhea?: No Are you experiencing any unusual bleeding?: No Do you have any muscle aches/pain?: No Do you have any abdominal pain?: No Are you experiencing loss of taste or smell?: No Other Medical History Have you received the Flu Vaccine for this season: No Have you received the Pneumonia Vaccine: No <Cynthia Garner - Last Filed: 08/02/25 21:53> ROS Obtained: Yes other Musculoskeletal Musculoskeletal: Reports arthralgias Integumentary/Breasts Skin/Breast: Reports redness and Reports skin swelling Physical Exam <Cynthia Garner Last Filed: 08/02/25 21:53> Narrative Physical exam: General: Awake, aware, in no acute distress HEENT: Normocephalic, no evidence of trauma CV: RRR, no murmurs, rubs, or gallops Pulm: CTA bilaterally with no rhonchi, rales, wheezes ABD: Nontender, no swelling, guarding, or rebound tenderness Psych, appropriate mood and affect Musculoskeletal: Patient with erythema, edema, tenderness to palpation of right lateral foot and ankle sensations intact with 2+ pulses. No obvious deformities are noted. Patient with decreased range of motion that is limited by pain. General General appearance: alert Respiratory Respiratory exam: Present normal lung sounds bilaterally Cardiovascular Cardiovascular exam: Present regular rate Neurological Exam Neurological exam: Present alert Medical Decision Making <Cynthia Garner - Last Filed: 08/02/25 21:53> Medical Records Screening: Per USPSTF and CDC recommendations, given the prevalence of disease in our region, it is our hospital?s policy to screen for HIV and viral Hepatitis for all patients aged 18 and over and those with ongoing risk factors. Wilian Inquiry Pt receiving controlled substance: No Vital Signs: 08/02/25 21:04 08/02/25 22:00 08/02/25 22:30 Temperature 97.8 F Temperature Source Oral Pulse Rate 77 74 Pulse Rate [Right Radial] 83 Respiratory Rate 20 17 16 Blood Pressure 137/101 H 152/93 H Blood Pressure [Left Arm] 170/111 H Blood Pressure Mean 113 110 Blood Pressure Mean [Left Arm] 130 Blood Pressure Source [Left Arm] Manual Cuff/ Doppler Blood Pressure Position [Left Arm] Sitting 02 Sat by Pulse Oximetry 97 99 98 Oxygen Delivery Method Room Air 08/02/25 23:54 Temperature 98.4 F Temperature Source Pulse Rate 74 Pulse Rate [Right Radial] Respiratory Rate 20 Blood Pressure 166/97 H Blood Pressure [Left Arm] Blood Pressure Mean Blood Pressure Mean [Left Arm] Blood Pressure Source [Left Arm] Blood Pressure Position [Left Arm] 02 Sat by Pulse Oximetry Oxygen Delivery Method Room Air Lab Data Lab Results 08/02/25 21:56: WBC 7.7, RBC 4.60, Hgb 14.1, Hct 41.2, MCV 89.6, MCH 30.7, MCHC 34.2, RDW 12.5, Plt Count 322, MPV 10.2, Neut % (Auto) 64.9, Lymph % (Auto) 17.4, [place] % (Auto) 7.1, Eos % (Auto) 9.7, Baso % (Auto) 0.3, Neut # (Auto) 5.0, Lymph # (Auto) 1.3, [place] # (Auto) 0.6, Eos # (Auto) 0.8 H, Baso # (Auto) 0.0, Sodium 132 L, Potassium 4.2, Chloride 98, Carbon Dioxide 27, Anion Gap 11.2, BUN 7, Creatinine 0.70, Estimated Creat Clear 84, Estimated GFR 90, Est GFR ( Amer) 109, Glucose 101 H, Calcium 9.1, Magnesium 1.7, Total Bilirubin 1.4 H, AST 76 H, ALT 41, Alkaline Phosphatase 84, C-Reactive Protein 54.4 H, Total Protein 8.9 H, Albumin 4.8, Globulin 4.1 H, Albumin/Globulin Ratio 1.2, HCV Ab FIDEL w/Rflx PCR Qn Negative, HIV Ag/Ab Combo Qual Negative 08/02/25 22:07: ESR 27 H, D-Dimer 0.34 08/02/25 22:35: Lactate 0.7 08/02/25 21:56 08/02/25 21:56 Orders (Tests/Meds): ED MEDICATIONS Discontinued Medications Generic Name Dose Route Start Last Admin Trade Name Akira PRN Reason Stop Dose Admin Acetaminophen 1,000 mg 08/02/25 21:45 08/02/25 22:05 Acetaminophen 500mg Tab PO 08/02/25 21:46 1,000 mg ONCE ONE Administration Cephalexin HCl 500 mg 08/02/25 23:33 08/02/25 23:58 Cephalexin 500mg Capsule PO 08/02/25 23:34 500 mg ONCE ONE Administration ORDERS Category Date Time Status Ankle XR -Right minimum 3 Views [XR ankle RT min 3V] Exams 08/02/25 21:35 Completed Stat POCUS Point of Care (ER Only) Stat Exams 08/02/25 22:33 Completed XR foot RT min 3V Stat Exams 08/02/25 21:35 Completed CBC w/Auto Diff [Complete Blood Count Auto Diff] Stat Lab 08/02/25 21:56 Completed CMP [Comprehensive Metabolic Panel] Stat Lab 08/02/25 21:56 Completed CRP [C-Reactive Protein] Stat Lab 08/02/25 21:56 Completed D-Dimer Stat Lab 08/02/25 22:07 Completed Erythrocyte Sedimentation Rate Stat Lab 08/02/25 22:07 Completed HIV Combo Stat Lab 08/02/25 21:56 Completed Hepatitis C Ab Qual. W/ RFX Stat Lab 08/02/25 21:56 Completed Lactic Acid Stat Lab 08/02/25 22:35 Completed Magnesium Stat Lab 08/02/25 21:56 Completed Blood Culture Stat Micro 08/02/25 21:48 Received Medical Decision Narrative: Initial impression of presenting illness: 49-year-old female presents emergency department with complaints of pain to bilateral lower extremities. She states the pain is worse in the right ankle and foot. She denies any known injury. She reports that she is on Suboxone daily for pain control. Patient denies fevers or recent antibiotic use. Differential diagnosis includes but is not limited to: Cellulitis, osteomyelitis, DVT, fracture Patient arrives hemodynamically stable, afebrile, without respiratory distress with vital signs interpreted by myself. Initial physical exam reveals significant erythema with edema to the lateral aspect of patient's right ankle and foot. Sensations intact with 2+ pulses. She does report pain on palpation of the area. Patient also reports pain on palpating her left lower extremity however no abnormalities were noted on exam. Exam is unremarkable Initial diagnostic plan: X-ray of right ankle and foot, laboratory studies, Tylenol for pain Reviewed patient's presenting complaint as well as ordered workup with ED attending Dr. Ruelas. He has assumed patient care pending the results of patient's workup. <Bassem Jones MD - Last Filed: 08/03/25 04:01> Vital Signs: 08/02/25 21:04 08/02/25 22:00 08/02/25 22:30 Temperature 97.8 F Temperature Source Oral Pulse Rate 77 74 Pulse Rate [Right Radial] 83 Respiratory Rate 20 17 16 Blood Pressure 137/101 H 152/93 H Blood Pressure [Left Arm] 170/111 H Blood Pressure Mean 113 110 Blood Pressure Mean [Left Arm] 130 Blood Pressure Source [Left Arm] Manual Cuff/ Doppler Blood Pressure Position [Left Arm] Sitting 02 Sat by Pulse Oximetry 97 99 98 Oxygen Delivery Method Room Air 08/02/25 23:54 Temperature 98.4 F Temperature Source Pulse Rate 74 Pulse Rate [Right Radial] Respiratory Rate 20 Blood Pressure 166/97 H Blood Pressure [Left Arm] Blood Pressure Mean Blood Pressure Mean [Left Arm] Blood Pressure Source [Left Arm] Blood Pressure Position [Left Arm] 02 Sat by Pulse Oximetry Oxygen Delivery Method Room Air Lab Data Lab Results 08/02/25 21:56: WBC 7.7, RBC 4.60, Hgb 14.1, Hct 41.2, MCV 89.6, MCH 30.7, MCHC 34.2, RDW 12.5, Plt Count 322, MPV 10.2, Neut % (Auto) 64.9, Lymph % (Auto) 17.4, [place] % (Auto) 7.1, Eos % (Auto) 9.7, Baso % (Auto) 0.3, Neut # (Auto) 5.0, Lymph # (Auto) 1.3, [place] # (Auto) 0.6, Eos # (Auto) 0.8 H, Baso # (Auto) 0.0, Sodium 132 L, Potassium 4.2, Chloride 98, Carbon Dioxide 27, Anion Gap 11.2, BUN 7, Creatinine 0.70, Estimated Creat Clear 84, Estimated GFR 90, Est GFR ( Amer) 109, Glucose 101 H, Calcium 9.1, Magnesium 1.7, Total Bilirubin 1.4 H, AST 76 H, ALT 41, Alkaline Phosphatase 84, C-Reactive Protein 54.4 H, Total Protein 8.9 H, Albumin 4.8, Globulin 4.1 H, Albumin/Globulin Ratio 1.2, HCV Ab FIDEL w/Rflx PCR Qn Negative, HIV Ag/Ab Combo Qual Negative 08/02/25 22:07: ESR 27 H, D-Dimer 0.34 08/02/25 22:35: Lactate 0.7 Orders (Tests/Meds): ED MEDICATIONS Discontinued Medications Generic Name Dose Route Start Last Admin Trade Name Arsalanq PRN Reason Stop Dose Admin Acetaminophen 1,000 mg 08/02/25 21:45 08/02/25 22:05 Acetaminophen 500mg Tab PO 08/02/25 21:46 1,000 mg ONCE ONE Administration Cephalexin HCl 500 mg 08/02/25 23:33 08/02/25 23:58 Cephalexin 500mg Capsule PO 08/02/25 23:34 500 mg ONCE ONE Administration ORDERS Category Date Time Status Ankle XR -Right minimum 3 Views [XR ankle RT min 3V] Exams 08/02/25 21:35 Completed Stat POCUS Point of Care (ER Only) Stat Exams 08/02/25 22:33 Completed XR foot RT min 3V Stat Exams 08/02/25 21:35 Completed CBC w/Auto Diff [Complete Blood Count Auto Diff] Stat Lab 08/02/25 21:56 Completed CMP [Comprehensive Metabolic Panel] Stat Lab 08/02/25 21:56 Completed CRP [C-Reactive Protein] Stat Lab 08/02/25 21:56 Completed D-Dimer Stat Lab 08/02/25 22:07 Completed Erythrocyte Sedimentation Rate Stat Lab 08/02/25 22:07 Completed HIV Combo Stat Lab 08/02/25 21:56 Completed Hepatitis C Ab Qual. W/ RFX Stat Lab 08/02/25 21:56 Completed Lactic Acid Stat Lab 08/02/25 22:35 Completed Magnesium Stat Lab 08/02/25 21:56 Completed Blood Culture Stat Micro 08/02/25 21:48 Received Medical Decision Narrative: Initial impression of presenting illness: 49-year-old female presents emergency department with complaints of pain to bilateral lower extremities. She states the pain is worse in the right ankle and foot. She denies any known injury. She reports that she is on Suboxone daily for pain control. Patient denies fevers or recent antibiotic use. Differential diagnosis includes but is not limited to: Cellulitis, osteomyelitis, DVT, fracture Patient arrives hemodynamically stable, afebrile, without respiratory distress with vital signs interpreted by myself. Initial physical exam reveals significant erythema with edema to the lateral aspect of patient's right ankle and foot. Sensations intact with 2+ pulses. She does report pain on palpation of the area. Patient also reports pain on palpating her left lower extremity however no abnormalities were noted on exam. Exam is unremarkable Initial diagnostic plan: X-ray of right ankle and foot, laboratory studies, Tylenol for pain Reviewed patient's presenting complaint as well as ordered workup with ED attending Dr. Ruelas. He has assumed patient care pending the results of patient's workup. I was consulted by the STEPHANIA, and we discussed the complexity of the problems being addressed. I approve the treatment and management plan for this patient's care in the emergency department, thus performing a substantive portion of the medical decision making. Patient's workup showed no leukocytosis, ESR mildly elevated at 27, D-dimer negative at 0.34. She is mildly hyponatremic with sodium of 132 but grossly nonactionable. Total bilirubin is mildly elevated at 1.4 and AST mildly elevated at 76 but liver enzymes otherwise unremarkable. CRP is elevated at 54.4. Physical exam on my assessment showed an area of erythema to the dorsal forefoot extending to the anterior distal cooley. It is tender to touch. No crepitus is noted. I performed [id number] MSK ultrasound on this area to evaluate for any subcutaneous gas to rule out necrotizing soft tissue infection. This demonstrated cobblestoning of the soft tissues but no subcutaneous air is appreciated. Patient does have strong color-flow pulsation at the dorsalis pedis and posterior tibialis arteries. X-ray imaging was also interpreted by me personally. No acute fracture or dislocation is noted. No bony erosion to suggest osteomyelitis. See final radiology report for details. Given this, is felt that patient has cellulitis and would benefit from a course of antibiotics. Pharmacies are closed at this time, will administer 500 mg of p.o. Keflex and send the rest of the course to patient's pharmacy. Patient's wound was outlined with a skin marker. Return precautions were given. All questions were answered. She demonstrated understanding and was in agreement this plan. She was then discharged from the emergency department in stable condition. Bassem Jones MD Procedures <Bassem Jones MD - Last Filed: 08/03/25 04:01> Limited Ultrasound Interpretation:: Limited MSK/soft tissue ultrasound Indication: soft tissue pain, redness, swelling Identified structures: Location: right foot Findings: - Cobblestoning consistent with cellulitis - No Subcutaneous air Impression: -Cellulitis of soft tissue Images were saved to permanent archive The study was technically adequate Soft Tissue CPT Codes: CPT Lower Extremity: 77711-33 This study was performed by me, and I personally interpreted all images/videos. Based on my clinical judgement, these images were adequate and did not necessitate further imaging. Critical Care <Cynthia Garner - Last Filed: 08/02/25 21:53> Critical Care Time Critical Care Time: No
--- NOTE | 2025-08-02 21:35 | XR_ITS ---
PROCEDURE INFORMATION: Exam: XR Right Ankle Exam date and time: 08/02/2025 10:12 PM Age: 49 years old Clinical indication: Pain; Swelling, leg or foot; Right; Additional info: Pain, swelling without trauma TECHNIQUE: Imaging protocol: Radiologic exam of the right ankle. Views: 3 or more views. COMPARISON: CR XR FOOT RT MIN 3V 08/02/2025 10:12 PM FINDINGS: Bones/joints: Normal. Soft tissues: Normal. IMPRESSION: No acute findings.
--- NOTE | 2025-08-02 21:35 | XR_ITS ---
PROCEDURE INFORMATION: Exam: XR Right Foot Exam date and time: 08/02/2025 10:12 PM Age: 49 years old Clinical indication: Swelling, leg or foot; Additional info: Pain, swelling without trauma TECHNIQUE: Imaging protocol: Radiologic exam of the right foot. Views: 3 or more views. COMPARISON: CR XR ANKLE RT MIN 3V 08/02/2025 10:12 PM FINDINGS: Bones/joints: Normal. Soft tissues: Normal. IMPRESSION: No acute findings.
[2025-08-02 22:00] VITALS: BP 137/101; PULSE 77; RESP 17; O2SAT 99
[2025-08-02] MEDS: ACETAMINOPHEN 500MG TAB 1000 MG PO (22:05)
[2025-08-02 22:08] LABS: Hematocrit 41.2 % (37.0-47.0); Hemoglobin 14.1 g/dL (12.2-16.2); Immature Granulocytes % 0.6 %; Mean Corpuscular HGB Conc 34.2 g/dL (31.8-35.4); Mean Corpuscular Hemoglobin 30.7 pg (27.0-31.2); Mean Corpuscular Volume 89.6 fl (81-99); Nucleated Red Blood Cells % 0 %; Platelet Count 322 K/mm3 (142-424); Red Blood Count 4.60 M/mm3 (4.20-5.40); Red Cell Distribution Width-SD 40.9 fL; White Blood Count 7.7 K/mm3 (4.8-10.8)
[2025-08-02 22:12] LABS: Albumin Level 4.8 g/dl (3.5-5.0); Chloride 98 mmol/L (98-107); Sodium 132 mmol/L (136-145)
[2025-08-02 22:13] LABS: Potassium 4.2 mmoL/L (3.5-5.1)
[2025-08-02 22:15] LABS: Alanine Aminotransferase 41 U/L (12-78); Albumin/Globulin Ratio 1.2 (1.1-1.8); Alkaline Phosphatase 84 U/L (38-126); Aspartate Amino Transferase 76 U/L (14-36); Bilirubin,Total 1.4 mg/dl (0.2-1.3); Blood Urea Nitrogen 7 mg/dl (7-17); Calcium 9.1 mg/dl (8.4-10.2); Creatinine Clearance Estimated 84 mL/min (50-200); Creatinine,Serum 0.70 mg/dl (0.52-1.04); Estimated Glomerular Filt Rate 90 ml/min (>60); GFR (African American) 109 ML/MIN (>60); Globulin 4.1 g/dL (1.3-3.2); Glucose 101 mg/dl (74-100); Magnesium 1.7 mg/dl (1.6-2.3); Total Protein,Serum 8.9 g/dl (6.3-8.2)
[2025-08-02 22:30] VITALS: BP 152/93; PULSE 74; RESP 16; O2SAT 98
[2025-08-02 22:30] LABS: C-Reactive Protein 54.4 mg/L (0-4)
[2025-08-02 22:38] LABS: D-Dimer 0.34 ug/mL (0.0-0.5)
[2025-08-02 23:32] LABS: Anion Gap 11.2 mEq/L (5-15); Carbon Dioxide 27 mmol/L (22.0-30.0)
[2025-08-02 23:54] VITALS: BP 166/97; PULSE 74; RESP 20; TEMP 36.9; O2SAT 99
[2025-08-03 00:41] LABS: Hepatitis C Ab Qual. W/ RFX NEGATIVE (Negative)
== END 2025-08-02 23:57 | disposition home or self-care (01) ==
PROVIDERS: Nurse Practitioner Family; Emergency Provider Student in an Organized Health Care Education/Training Program; PCP Family Medicine
DX: L03.115 Cellulitis of right lower limb (principal); E87.1 Hypo-osmolality and hyponatremia; M79.661 Pain in right lower leg; M79.662 Pain in left lower leg; I11.0 Hypertensive heart disease with heart failure; I50.30 Unspecified diastolic (congestive) heart failure; J44.9 Chronic obstructive pulmonary disease, unspecified; F17.210 Nicotine dependence, cigarettes, uncomplicated
CPT/HCPCS: 73610; 73630; 80053; 83605; 83735; 85025; 85378; 85651; 86140; 86803; 87040; 87389; 99283; 99284

== ENCOUNTER 2025-09-15 09:42 | Outpatient (CLI) | payer OTHER, SELFPAY ==
--- OUTSIDE RECORDS SUMMARY | 2025-08-21 14:57 | XMS_ITS | Encounter Summary ---
Author Organization Healthcare Address [address] [place] [address] Care Team Providers Care Health And Human Performance Professor Name Role Phone Rodolfo Rhoades MD Primary Care Provider [phone] Reason for Visit * Auth/Cert (Routine) Specialty Diagnoses / Procedures Referred By Kaiser zuniga Referred To Contact Diagnoses Rhabdomyolysis Possible Splenic Laceration and Pneumoperitoneum Emma Lehman MD [facility] [address] [address] Phone: tel: fax: PAV S Inpatient [address] [place] [address] Phone: tel: fax: Referral ID Status Reason Start Date Expiration Date Visits Re quested Visits Authorized [id number] 1 1 Encounter Details Date Type Department Care Team (Late st Contact Info) Description 08/21/2025 2:57 PM EDT Anesthesia Event PAV S Operating Room [address] [place] [address] Sosa Cadet MD [address] [place] [address] Alok Wilson DO [address] [place] [address] Anesthesia Record Procedure Summary Procedure [...] time in the past 12 m [facility], were you homeless or living in a nursing home (including now)? No 08/09/2025 [facility] Utilities Answer Date Recorded In the past 12 months has [employer], gas, oil, or water company threatened to [...] 1430 Procedure: BIOPSY, MUSCLE (Right) Location: 2[facility] OR Surgeons: Carla Montes MD Relevant Problems [...] is no recent study available for direct nwko-fn-erpz comparison. Echo, Adult Transthoracic Limited w/ Contrast Result Date: 08/07/2025 [place] [id number] Name: VERONICA WEISS Exam Date: 08/07/2025 : 1975 Age 49 years Gender: F Physician: JOSSE MONTENEGRO Facility: [facility] Facility HSV: Inpatient Exam: ECHO [...] stenosis with a valve area of 1.34 hand glass cutter (Peak grad=31mmHg, Mean grad=16mmHg, LVOT grady=2.00cm, LVOT TVI=14.2cm, Ao TVI=33.3cm). The dimensionless index is 0.43. AV peak zwrkbkjh=740ii/sec. There is a Mechanical AV prosthesis. Tricuspid [...] Thank you for referring VERONICA WEISS to [facility]. Legally authenticated by PATTIE Yun 2025-08-07 12:49:32 PFTs No results found for: TIJ4YZN , TDM5AATI , RKS3API , FVCPRED BP Readings from Last 5 [...] Plan ASA 4 Plan was reviewed with: CIVIL GEOTECHNICAL ENGINEER Anesthesia technique(s) discussed with the patient/family: general [...] Care Team (Late st Contact Info) Description 09/15/2025 1:00 PM EDT Office Visit [facility] [address] [place] [address] Rodolfo Rhoades MD [address] [place] [address] 09/26/2025 8:00 AM EDT Office Visit [facility] [address] [place] [address] Rodolfo Rhoades MD [address] [place] [address] documented as of this encounter Visit [...] as of this encounter Care Teams Health And Human Performance Professor Relationship Specialty Start Date End Date Rodolfo Rhoades MD [address] [place] [address] PCP - General Family Medicine 02/02/25 documented as of this encounter
--- OUTSIDE RECORDS SUMMARY | 2025-09-15 09:52 | XMS_ITS | Encounter Summary ---
Author Organization Healthcare Address [address] [place] [address] Care Team Providers Care Automotive Product Engineer Name Role Phone Rodolfo Rhoades MD Primary Care Provider [phone] Encounter Details Date Type Department Care Team (Latest Contact Info) Description 08/30/2025 Travel Social History Tobacco Use Types Packs/Day [...] time in the past 12 m [facility], were you homeless or living in a retirement (including now)? No 08/09/2025 [facility] Utilities Answer Date Recorded In the past [...] Date of Assessment Author No Risk Indicated 08/30/2025 4:00 PM EDT Alcon Coughlin S * Question Answer Date of Assessment Author 1. Wish to be (Past 1 Month) No 025 4:00 PM EDT Alcon Coughlin S 2. Non-Specific Active Suici omar Thoughts (Past 1 Month) No 08/30/2025 4:00 PM EDT Edwin Coughlin S 6. Suicidal Behavior (Lifetime) No 5 4:00 PM EDT Alcon Coughlin S documented as of this encounter Plan of Treatment Upcoming Encounters Date Type Department Care Team (Late st Contact Info) Description 09/15/2025 1:00 PM EDT [facility] [address] [place] [address] Rodolfo Rhoades MD [address] [place] [address] 09/26/2025 8:00 AM EDT [facility] [address] [place] [address] Rodolfo Rhoades MD [address] [place] [address] documented as of this encounter [...] documented as of this encounter Care Teams Automotive Product Engineer Relationship Specialty Start Date End Date Rodolfo Rhoades MD [address] [place] [address] PCP - General Family Medicine 02/02/25 documented as of this encounter
--- OUTSIDE RECORDS SUMMARY | 2025-09-15 09:52 | XMS_ITS | Encounter Summary ---
Author Organization Healthcare Address [address] [place] [address] Care Team Providers Care Roll Skinner Name Role Phone Rodolfo Rhoades MD Primary Care Provider [phone] Encounter Details Date Type Department Care Team (Latest Contact Info) Description 08/21/2025 Travel Social History Tobacco Use Types Packs/Day [...] in the past 12 m [facility], were you homeless or living in a assisted (including now)? No 08/09/2025 [facility] Utilities Answer Date Recorded In the past [...] Jewell RN 6. Suicidal Behavior (Lifetime) No 5 8:00 PM EDT Ary Jewell RN documented as of this encounter Plan of Treatment Upcoming Encounters Date Type Department Care Team (Late st Contact Info) Description 09/15/2025 1:00 PM EDT Office Visit [facility] [address] [place] [address] Rodolfo Rhoades MD [address] [place] [address] 09/26/2025 8:00 AM EDT Office Visit [facility] [address] [place] [address] Rodolfo Rhoades MD [address] [place] [address] documented as of this encounter Visit Diagnoses Not on filedocumented in this encounter Additional Health Concerns Infection Onset Date Last Indicated Resolved Time Meningitis Rule-Out 08/21/2025 08/21/2025 08/21/20 25 2:03 PM EDT Assessment Noted Time PHQ-9 Depression Total Score: 11 025 10:59 AM EDT A fall risk assessment has been complete d for the patient 03/19/2023 1:57 PM EDT A Body Mass Index follow-up plan has been documented for the patient 09/06/2025 3:19 PM EDT documented as of this encounter Care Teams Roll Skinner Relationship Specialty Start Date End Date Rodolfo Rhoades MD [address] [place] [phone] PCP - General Family Medicine 02/02/25 documented as of this encounter
--- OUTSIDE RECORDS SUMMARY | 2025-09-15 09:52 | XMS_ITS | Encounter Summary ---
Author Organization Healthcare Address [address] [place] [id number] Care Team Providers Care Assistant Real Estate Manager Name Role Phone Rodolfo Rhoades MD Primary Care Provider [phone] So Caicedo LPN Unavailable Unavailable Reason for Visit * Reason Comments TCM Encounter Details Date Type Department Care Team (Late st Contact Info) Description 09/07/2025 Patient Outreach [facility] [address] [facility], [address] [place] [address] So Caicedo LPN VALUE-[employer]ED [place] [address] TCM Social History Tobacco Use Types Packs/Day Years [...] in a mcc (including now)? No 08/09/2025 [facility] Utilities Answer Date Recorded In the past 12 months has th e [employer], gas, oil, or water [employer] threatened to shut off services in your [...] encounter Miscellaneous Notes * Progress Notes - So Caicedo LPN - 09/07/2025 10:40 AM EDT Admit Date: 08/08/2025 Discharge Date: 09/06/2025 Hospital Service: [facility] Discharge Diagnosis: Rhabdomyolysis 09/07/2025 TCM call # 1 Patient Reached: N Outcome: Patient not reached, LVM. Action: N/A Medication changes per discharge summary: New Medications: Gabapentin 800 mg QID, Tylenol 500 mg TID, Vistaril 25 mg q6h PRN, Lidocaine Patches, Losartan 25 mg once daily, Nystatin twice daily to groin Discontinued Medications: Lasix 40 mg, Megace 40 mg/mL Medication Modifications: Warfarin 2.5 mg daily MARVIN appointment: 09/13/2025 at 10:00am with Imelda Burgos APRN Items to address at MARVIN per discharge summary: TCM Follow-up: - Has functional status improved? Patient's debility was mainly based on function of LLE. Patient had previously declined rehab stay. - Pain control? Pain regimen was optimized while inpatient. - Has patient had any follow-ups so far with Neurology, Rheumatology, Addiction Medicine? - Oral candidiasis and/or vaginal? Patient was treated with 7 day course of fluconazole inpatient and had nystatin ordered for paul of groin. - BP check. Was started on losartan 25 mg while inpatient. - CBC, CMP, PT/INR Outside Specialities & Follow-up Appointments: Follow-up: PCP, Neurology, Rheumatology, Addiction Medicine documented in this encounter Plan of Treatment Upcoming Encounters Date Type Department Care Team (Late st Contact Info) Description 09/15/2025 1:00 PM EDT Office Visit [address] [address] Rodolfo Rhoades MD [address] [place] [address] 09/26/2025 8:00 AM EDT Office Visit [facility] [address] [place] [address] Rodolfo Rhoades MD [address] [place] [address] documented as of this encounter Visit [...] documented as of this encounter Care Teams Assistant Real Estate Manager Relationship Specialty Start Date End Date Rodolfo Rhoades MD [address] [place] [address] PCP - General Family Medicine 02/02/25 So Caicedo LPN VALUE[employer]ED [place] [address] TCM Nurse 09/07/25 documented as of this encounter
--- OUTSIDE RECORDS SUMMARY | 2025-09-15 09:52 | XMS_ITS | Encounter Summary ---
Author Organization [facility] Address [address] [id number] Care Team Providers Care Route Service Manager Name Role Phone Georgette Moore APRN Primary Care Provider [phone] Veronica Goodwin LPN Unavailable Unavailable Margaret Ro Unavailable Unavailable Rodolfo Rhoades MD Primary Care Provider [phone] Marianne Bolaños Unavailable Unavailable Ariana Bagley Unavailable Unavailable So Caicedo CLOTH GRADER Unavailable Unavailable Encounter Details Date Type Department Care Team (Late st Contact Info) Description 02/06/2022 Outside Procedure External Location [address] [place] [phone] Provider, Swapnil Wall Social History Tobacco Use Types Packs/Day Years [...] Department Care Team (Late Contact Info) Description 09/15/2025 1:00 PM EDT Office Visit [facility] [address] [place] [address] Rodolfo Rhoades MD [address] [place] [address] 09/26/2025 8:00 AM EDT Office Visit [facility] [address] [place] [address] Rodolfo Rhoades MD [address] [place] [address] documented as of this encounter Procedures Procedure Name Priority Date/Time Associated Diagnosis Comments XR CERVICAL SPINE 2 OR 3 VIEWS 02/06/2022 2:09 PM EST documented in this encounter Results * XR Cervical Spine 2 or 3 Views (02/06/2022 2:09 PM EST) Anatomical Region Laterality Modality Spine, C-spine Radiographic Tierra ging 02/06/2022 2:09 PM EST Narrative 02/06/2022 3:21 [place] [address] Name: VERONICA ALVAREZ Exam Date: 02/06/2022 : 1975 Age 46 Gender: F Physician: HORACE RYAN Facility: [facility] Facility HSV: Outpatient Exam: CERVICAL SPINE [...] Thank you for referring VERONICA ALVAREZ to [facility]. Legally authenticated by GADIEL DELEON 2022-02-06 15:08:51 Procedure Note Provider, Swapnil [place] - 02/06/2022 [facility] [address] [place] [address] Name: VERONICA ALVAREZ Exam Date: 02/06/2022 : 1975 Age 46 Gender: F Physician: HORACE RYAN Facility: [facility] Facility HSV: Outpatient Exam: CERVICAL SPINE [...] Thank you for referring VERONICA ALVAREZ to [facility]. Legally authenticated by GADIEL DELEON 2022-02-06 15:08:51 Generic Wall Provider IMG XR PROCEDURES Fi nal Result documented in this encounter Visit Diagnoses Not on filedocumented in this encounter Additional Health Concerns Infection Onset Date Last Indicated Resolved Time COVID-19 Rule-Out 11/11/2022 11/11/2022 11/12/2022 1:58 AM EST COVID-19 Rule-Out 11/16/2024 11/16/2024 11/16/2024 7:38 PM EST COVID-19 Rule-Out 01/27/2025 01/27/2025 01/27/2025 12:04 PM EST COVID-19 Rule-Out 08/09/2025 08/09/2025 08/10/2025 3:03 PM EDT Respiratory Rule-Out 08/09/2025 08/09/2025 025 5:51 PM EDT Meningitis Rule-Out 08/21/2025 08/21/2025 08/21/20 2:03 PM EDT Assessment Noted Time A fall risk assessment has been complete d for the patient 08/02/2021 10:52 AM EDT documented as of this encounter Care Teams Route Service Manager Relationship Specialty Start Date End Date Georgette Moore APRN [address] [place] [phone] PCP - General 04/12/21 02/01/25 Rodolfo Rhoades MD [address] [place] [address] PCP - General Family Medicine 02/02/25 Veronica Goodwin LPN VALUE-BASED [place] [address] TCM Nurse 07/25/24 08/25/24 Margaret Ro Community Health Worker 07/27/24 4 Marianne Bolaños Clinical Senior Qa Analyst 07/14/25 07/28/25 Ariana Bagley Community Health Worker 07/14/25 07/14/25 So Caicedo LPN VALUE-BASED [place] [address] TCM Nurse 09/07/25 documented as of this encounter
--- OUTSIDE RECORDS SUMMARY | 2025-09-15 09:52 | XMS_ITS | Encounter Summary ---
Author Organization Healthcare Address [address] [id number] Care Team Providers Care Software Engineering Associate Manager Name Role Phone Rodolfo Rhoades MD Primary Care Provider [phone] So Caicedo LPN Unavailable Unavailable Encounter Details Date Type Department Care Team (Late st Contact Info) Description 09/07/2025 Results Follow-Up [facility] Inpatient Pharmacy [address] [place] [phone] Annemarie Grover, [place] [address] Social History Tobacco Use Types Packs/Day Years [...] a nursing home (including now)? No 08/09/2025 [facility] Utilities Answer Date Recorded In the past 12 months has e [employer], gas, oil, or water company threatened to [...] Description 09/15/2025 1:00 PM EDT Office Visit [facility] [address] [place] [address] Rodolfo Rhoades MD [address] [place] [address] 09/26/2025 8:00 AM EDT Office Visit [facility] [address] [place] [address] Rodolfo Rhoades MD [address] [place] [address] documented as of this encounter [...] documented as of this encounter Care Teams Software Engineering Associate Manager Relationship Specialty Start Date End Date Rodolfo Rhoades MD [address] [place] [address] PCP - General Family Medicine 02/02/25 So Caicedo LPN VALUE[employer] [place] [address] TCM Nurse 09/07/25 documented as of this encounter
--- OUTSIDE RECORDS SUMMARY | 2025-09-15 09:52 | XMS_ITS | Encounter Summary ---
Author Organization Healthcare Address [address] [place] [address] Care Team Providers Care Crime Scene Analyst Name Role Phone Rodolfo Rhoades MD Primary Care Provider [phone] Encounter Details Date Type Department Care Team (Latest Contact Info) Description 08/19/2025 Travel Social History Tobacco Use Types Packs/Day [...] any time in the past 12 m [facility], were you homeless or living in a halfway (including now)? No 08/09/2025 [facility] Utilities Answer Date Recorded In the [...] Date of Assessment Author No Risk Indicated 08/19/2025 8:00 AM EDT Elisabeth Caraballo RN * Question Answer Date of Assessment Author 1. Wish to be (Past 1 Month) No 025 8:00 AM EDT Mili Caraballo RN 2. Non-Specific Active Suici omar Thoughts (Past 1 Month) No 08/19/2025 8:00 AM EDT Mili Caraballo RN 6. Suicidal Behavior (Lifetime) No 8:00 AM EDT Mili Caraballo RN documented as of this encounter Plan of Treatment Upcoming Encounters Date Type Department Care Team (Late st Contact Info) Description 09/15/2025 1:00 PM EDT Office Visit [facility] [address] [place] [address] Rodolfo Rhoades MD [address] [place] [address] 09/26/2025 8:00 AM EDT Office Visit [facility] [address] [place] [address] Rodolfo Rhoades MD [address] [place] [address] documented as of this [...] documented as of this encounter Care Teams Crime Scene Analyst Relationship Specialty Start Date End Date Rodolfo Rhoades MD [address] [place] [address] PCP - General Family Medicine 02/02/25 documented as of this encounter
--- OUTSIDE RECORDS SUMMARY | 2025-09-15 09:52 | XMS_ITS | Encounter Summary ---
Author Organization Healthcare Address [address] [place] [address] Care Team Providers Care Decorating And Assembly Supervisor Name Role Phone Rodolfo Rhoades MD Primary Care Provider [phone] Encounter Details Date Type Department Care Team (Latest Contact Info) Description 08/22/2025 Travel Social History Tobacco Use Types Packs/Day [...] any time in the past 12 m [facility], were you homeless or living in a usp (including now)? No 08/09/2025 [facility] Utilities Answer Date Recorded In the [...] Description 09/15/2025 1:00 PM EDT Office Visit [facility] [address] [place] [address] Rodolfo Rhoades MD [address] [place] [address] 09/26/2025 8:00 AM EDT Office Visit [facility] [address] [place] [address] Rodolfo Rhoades MD [address] [place] [address] documented as of this encounter [...] documented as of this encounter Care Teams Decorating And Assembly Supervisor Relationship Specialty Start Date End Date Rodolfo Rhoades MD [address] [place] [address] PCP - General Family Medicine 02/02/25 documented as of this encounter
--- OUTSIDE RECORDS SUMMARY | 2025-09-15 09:52 | XMS_ITS | Encounter Summary ---
Author Organization Healthcare Address [address] [place] [id number] Care Team Providers Care Neck Band Maker Name Role Phone Rodolfo Rhoades MD Primary Care Provider [phone] So Caicedo LPN Unavailable Unavailable Encounter Details Date Type Department Care Team (Late st Contact Info) Description 08/07/2025 Outside Procedure External Location [address] [place] [phone] Provider, Swapnil [place] Social History Tobacco Use Types Packs/Day Years [...] any time in the past 12 m [facility], were you homeless or living in a halfway (including now)? No 08/09/2025 [facility] Utilities Answer Date Recorded In the [...] Date of Assessment Author No Risk Indicated 08/10/2025 8:00 PM EDT Sherry Schulz * Question Answer Date of Assessment Author 1. Wish to be (Past 1 Month) No 025 8:00 PM EDT Andres Schulz 2. Non-Specific Active Suici omar Thoughts (Past 1 Month) No 08/10/2025 8:00 PM EDT Andres cShulz 6. Suicidal Behavior (Lifetime) No 8:00 PM EDT Andres Schulz documented as of this encounter Plan of Treatment Upcoming Encounters Date Type Department Care Team (Late st Contact Info) Description 09/15/2025 1:00 PM EDT Office Visit [facility] [address] [place] [address] Rodolfo Rhoades MD [address] [place] [address] 09/26/2025 8:00 AM EDT Office Visit [facility] [address] [place] [address] Rodolfo Rhoades MD [address] [place] [address] documented as of this encounter Procedures Procedure Name Priority Date/Time Associated Diagnosis Comments ECHO, ADULT TRANSTHORACIC LIMITED W/ CONTRAST 08/07/2025 6:38 AM EDT documented in this encounter Results * Echo, Adult Transthoracic Limited w/ Contrast (08/07/2025 6:38 AM EDT) Anatomical Region Laterality Modality Ultrasound 08/07/2025 6:38 AM EDT Narrative 08/07/2025 12:51 PM EDT [place] [address] Name: VERONICA ALVAREZ Exam Date: 08/07/2025 : 1975 Age 49 years Gender: F Physician: JOSSE MONTENEGRO Facility: [facility] Facility HSV: Inpatient Exam: ECHO [...] stenosis with a valve area of 1.34 sommelier (Peak grad=31mmHg, Mean grad=16mmHg, LVOT grady=2.00cm, LVOT TVI=14.2cm, Ao TVI=33.3cm). The dimensionless index is 0.43. AV peak magknzzz=877dh/sec. There is a Mechanical AV prosthesis. Tricuspid [...] (2.7-3.3cm) Max Valve Velocities AV peak calixto: 278cm/sec LVOT: 124.00cm/sec Legally authenticated by PATTIE Yun 2025-08-07 12:49:32 [facility] [place] AP: 3.0cm [place] vol: 30.8mL SHREYAS: 20.3mL/mA (16-28ml/m2) Damián Donald MD Dictated By: DAMIÁN DONALD Transcribed By: Transcribed On: 08/07/2025 12:49 PM Electronically signed by: DAMIÁN DONALD 08/07/2025 Thank you for referring VERONICA ALVAREZ to [facility]. Legally authenticated by PATTIE Yun 2025-08-07 12:49:32 Procedure Note Provider, Generic [place] - 08/07/[address] [address] Name: VERONICA ALVAREZ Exam Date: 08/07/2025 : 1975 Age 49 years Gender: F Physician: JOSSE MONTENEGRO Facility: [facility] Facility HSV: Inpatient Exam: ECHO [...] stenosis with a valve area of 1.34 sommelier (Peak grad=31mmHg, Mean grad=16mmHg, LVOT grady=2.00cm, LVOT TVI=14.2cm, Ao TVI=33.3cm). The dimensionless index is 0.43. AV peak yyyemocp=066kz/sec. There is a Mechanical AV prosthesis. Tricuspid [...] (2.7-3.3cm) Max Valve Velocities AV peak calixto: 278cm/sec LVOT: 124.00cm/sec Legally authenticated by PATTIE Yun 2025-08-07 12:49:32 [facility] [place] AP: 3.0cm LA vol: 30.8mL SHREYAS: 20.3mL/mA (16-28ml/m2) Damián Donald MD Dictated By: DAMIÁN DONALD Transcribed By: Transcribed On: 08/07/2025 12:49 PM Electronically signed by: DAMIÁN DONALD 08/07/2025 Thank you for referring VERONICA ALVAREZ to [facility]. Legally authenticated by PATTIE Yun 2025-08-07 12:49:32 us Generic [place] Provider CV ECHO PROCEDURES F inal Result documented in this encounter Visit Diagnoses Not on filedocumented in this encounter Additional Health Concerns Infection Onset Date Last Indicated Resolved Time COVID-19 Rule-Out 08/09/2025 08/09/2025 08/10/2025 3:03 PM EDT Respiratory Rule-Out 08/09/2025 08/09/2025 025 5:51 PM EDT Meningitis Rule-Out 08/21/2025 08/21/2025 08/21/20 2:03 PM EDT Assessment Noted Time PHQ-9 Depression Total Score: 11 025 10:59 AM EDT A fall risk assessment has been complete d for the patient 03/19/2023 1:57 PM EDT A Body Mass Index follow-up plan has been documented for the patient 06/08/2025 12:14 AM EDT documented as of this encounter Care Teams Neck Band Maker Relationship Specialty Start Date End Date Rodolfo Rhoades MD [address] [place] [phone] PCP - General Family Medicine 02/02/25 So Caicedo LPN VALUE-[place]ED [place] [address] TCM Nurse 09/07/25 documented as of this encounter
--- OUTSIDE RECORDS SUMMARY | 2025-09-15 09:52 | XMS_ITS | Encounter Summary ---
Author Organization [facility] Address [facility] [place] [address] Care Team Providers Care Brake Repairer Railroad Name Role Phone Georgette Moore APRN Primary Care Provider [phone] Veronica Goodwin LPN Unavailable Unavailable Margaret Ro Unavailable Unavailable Rodolfo Rhoades MD Primary Care Provider [phone] Marianne Bolaños Unavailable Unavailable Ariana Bagley Unavailable Unavailable So Caicedo LPN Unavailable Unavailable Reason for Visit * Reason Comments Med Refill Encounter Details Date Type Department Care Team (Late st Contact Info) Description 12/21/2021 Refill [facility] [address] [place] [address] Georgette Moore APRN [address] [place] [address] Chronic fatigue Social History Tobacco [...] Description 09/15/2025 1:00 PM EDT Office Visit [facility] [address] [place] [address] Rodolfo Rhoades MD [address] [place] [address] 09/26/2025 8:00 AM EDT Office Visit [facility] [address] [place] [address] Rodolfo Rhoades MD [address] [place] [address] documented as of this encounter [...] documented as of this encounter Care Teams Brake Repairer Railroad Relationship Specialty Start Date End Date Georgette Moore APRN [address] [place] [id number] PCP - General 04/12/21 02/01/25 Rodolfo Rhoades MD [address] [place] [address] PCP - General Family Medicine 02/02/25 Veronica Goodwin LPN [employer] [place] [address] TCM Nurse 07/25/24 08/25/24 Margaret Ro Community Health Worker 07/27/24 Marianne Armenta Clinical Rooter Operator 07/14/25 07/28/25 Ariana Bagley Community Health Worker 07/14/25 07/14/25 So Caicedo LPN [employer] [place] [address] TCM Nurse 09/07/25 documented as of this encounter
--- OUTSIDE RECORDS SUMMARY | 2025-09-15 09:52 | XMS_ITS | Encounter Summary ---
Author Organization Healthcare Address [address] [place] [address] Care Team Providers Care Blindstitch Hemmer Name Role Phone Rodolfo Rhoades MD Primary Care Provider [phone] Encounter Details Date Type Department Care Team (Late st Contact Info) Description 08/08/2025 Orders Only External Location [address] [place] [address] Provider, Swapnil [place] Social History Tobacco Use [...] time in the past 12 m [facility], were you homeless or living in a care home (including now)? No 08/09/2025 [facility] Utilities Answer Date Recorded In the [...] Description 09/15/2025 1:00 PM EDT Office Visit [facility] [address] [place] [address] Rodoflo Rhoades MD [address] [place] [address] 09/26/2025 8:00 AM EDT Office Visit [facility] [address] [place] [address] Rodolfo Rhoades MD [address] [place] [address] documented as of this encounter Procedures Procedure Name Priority Date/Time Associated Diagnosis Comments SEDIMENTATION RATE, AUTOMATED Routine 08/08/2025 3:55 AM EDT PROTHROMBIN TIME(PT) / INR Routine 08/08/2025 3:55 AM EDT CBC W/O DIFFERENTIAL Routine 08/08/2025 3:55 AM EDT C-REACTIVE PROTEIN, PLASMA Routine 08/08/2025 3:55 AM EDT MAGNESIUM, PLASMA Routine 08/08/2025 3:5 5 AM EDT CK Routine 08/08/2025 3:55 AM EDT BASIC METABOLIC PANEL, PLASMA Routine 08/08/2025 3:55 AM EDT PHOSPHORUS, PLASMA Routine 08/08/2025 3: 44 AM EDT documented in this encounter Results * (ABNORMAL) Sedimentation Rate, Automated (08/08/2025 3:55 AM EDT) External Erythrocyte Sedimentation Rate 67(H) 0 - 20 [facility] 08/08/2025 3:55 AM EDT 08/08/2025 2:26 PM EDT us Generic [place] Provider LAB BLOOD ORDERABLES Final Result Performing Organization Address [facility] Co de Phone Number [facility] * (ABNORMAL) C-Reactive Protein, Plasma (08/08/2025 3:55 AM EDT) External C-Reactive Protein 16.7(H) 0.05 - 0.300 mg/dL [facility] 08/08/2025 3:55 AM EDT 08/08/2025 2:26 PM EDT Generic [place] Provider LAB BLOOD ORDERABLES Final Result Performing Organization Address [facility] Co de Phone Number [facility] * (ABNORMAL) CK (08/08/2025 3:55 AM EDT) External Creatine Kinase 14492(H) 35 - 232 IU/l [facility] 08/08/2025 3:55 AM EDT 08/08/2025 4:29 AM EDT Generic [place] Provider LAB BLOOD ORDERABLES Final Result Performing Organization Address [facility] Co de Phone Number [facility] * Magnesium, Plasma (08/08/2025 3:55 AM EDT) External Magnesium 2.1 1.8 - 2.4 MG/DL [facility] 08/08/2025 3:55 AM EDT 08/08/2025 4:30 AM EDT Generic [place] Provider LAB BLOOD ORDERABLES Final Result Performing Organization Address [facility]/ZIP Co de Phone Number [facility] * (ABNORMAL) Basic Metabolic Panel, Plasma (08/08/2025 3:55 AM EDT) External Sodium 131(L) 136 - 145 mmol/L [facility] External Potassium 4.5 3.6 - 5.0 mmol/L [facility] External Chloride 100 98 - 107 mmol/L [facility] External Carbon Dioxide 22.4 21.0 - 32.0 mmol/L [facility] External Anion Gap (AG) 13.1 [facility] External Glucose 134(H) 70 - 120 mg/dl [facility] External BUN 8 7 - 18 mg/dL [facility] External Creatinine Blood 0.5(L) 0.6 - 1.3 mg/dL [facility] External Estimated GFR 116 60- mlpermin [facility] Comment: GFR LIMITATION: The eGFR equation CKD-EPI 2020 is not applicable for pediatric patients or greater than 90 years of age. The following conditions may alter the GFR result: extremes in body size, malnutrition or obesity, skeletal muscle disease, paraplegia or quadriplegia, vegetarian diet or rapidly changing kiney function. External Osmolality (Calculated) 273(L) 275 - 301 mosm/kg [facility] Comment: OSMOLALITY IS A CALCULATION UTILIZING THE SERUM/PLASMA SODIUM, GLUCOSE AND UREA NITROGEN (BUN) LEVELS. FOR THE MOST ACCURATE RESULT A MEASURED SERUM OSMOLALITY IS SUGGESTED. External Calcium 8.1(L) 8.5 - 10.5 mg/dl [facility] 08/08/2025 3:55 AM EDT 08/08/2025 4:30 AM EDT us Generic [place] Provider LAB BLOOD ORDERABLES Final Result Performing Organization Address [facility]/ZIP Co de Phone Number [facility] * (ABNORMAL) Prothrombin Time/INR (08/08/2025 3:55 AM EDT) External Prothrombin Time (PT) 11.3 9.3 - 11.4 SECONDS [facility] External INR - Internormal Ratio 1.1(H) 0.97 - 1.05 Ratio [facility] Comment: INR is intended to be used ONLY for patients on stable oral anticoagulant therapy. Therapeutic Ranges: 2.0-3.0 Usual Therapeutic Range 2.5-3.5 For patients with history of Multiple Deep Vein Thrombus or Mechanical Heart Valves 08/08/2025 3:55 AM EDT 08/08/2025 4:29 AM EDT us Generic [place] Provider LAB BLOOD ORDERABLES Final Result Performing Organization Address City/[facility]/ZIP Co de Phone Number [facility] * (ABNORMAL) CBC W/O Differential (08/08/2025 3:55 AM EDT) External WBC 9.8 4.0 - 10.5 K/ul [facility] External Red Blood Cell (RBC) 3.7(L) 4.2 - 6.4 M/mm3 [facility] External Hemoglobin 11.0(L) 12.5 - 16.0 gm/dl [facility] External Hematocrit 33.3(L) 37.0 - 47.0 % [facility] External MCV 89.5 78 - 100 fl [facility] External MCH 29.6 27 - 31 pg [facility] External MCHC 33.0 32 - 36 g/dl [facility] External RDW 12.5 11.5 - 14.0 % [facility] External Platelets 368 150 - 450 K/ul [facility] External MPV 10.5(H) 6 - 9.5 fl [facility] External Manual Differential NO [facility] 08/08/2025 3:55 AM EDT 08/08/2025 4:30 AM EDT us Generic [place] Provider LAB BLOOD ORDERABLES Final Result Performing Organization Address City/[facility]/ZIP Co de Phone Number [facility] * Phosphorus, Plasma (08/08/2025 3:44 AM EDT) External Phosphorus 3.1 2.5 - 4.9 mg/dl [facility] 08/08/2025 3:44 AM EDT 08/08/2025 1:28 PM EDT us Generic [place] Provider LAB BLOOD ORDERABLES Final Result [facility] documented in this encounter Visit Diagnoses Not [...] documented as of this encounter Care Teams Blindstitch Hemmer Relationship Specialty Start Date End Date Rodolfo Rhoades MD [address] [place] [address] PCP - General Family Medicine 02/02/25 documented as of this encounter
--- OUTSIDE RECORDS SUMMARY | 2025-09-15 09:52 | XMS_ITS | Encounter Summary ---
Author Organization Healthcare Address [address] [place] [address] Care Team Providers Care Vp Software Name Role Phone Georgette Moore APRN Primary Care Provider [phone] Rodolfo Rhoades MD Primary Care Provider [phone] Wages, Marianne Delgado Unavailable Unavailable Ariana Bagley Unavailable Unavailable So Caicedo LPN Unavailable Unavailable Reason for Visit * Reason Comments Med Refill Encounter Details Date Type Department Care Team (Late st Contact Info) Description 11/28/2024 [facility]ill [facility] [address] [place] [address] Imelda Burgos APRN [address] [place] [address] COPD exacerbation (CMS/HCC); Cough with hemoptysis Social History Tobacco Use Types Packs/Day Years Used Date Smoking Tobacco: Every Day Cigarettes 1 23.8 Started: 2001 Passive Smoke Exposure: Current Smokeless [...] Description 09/15/2025 1:00 PM EDT Office Visit [facility] [address] [place] [address] Rodolfo Rhoades MD [address] [place] [address] 09/26/2025 8:00 AM EDT Office Visit [facility] [address] [place] [address] Rodolfo Rhoades MD [address] [place] [address] documented as of this encounter Visit Diagnoses Diagnosis COPD exacerbation ([facility]) Obstructive chronic bronchitis with exacerbation Cough with hemoptysis documented in this encounter Additional Health Concerns Infection Onset Date Last Indicated Resolved Time COVID-19 Rule-Out 01/27/2025 01/27/2025 01/27/2025 12:04 PM EST COVID-19 Rule-Out 08/09/2025 08/09/2025 08/10/2025 3:03 PM EDT Respiratory Rule-Out 08/09/2025 08/09/2025 025 5:51 PM EDT Meningitis Rule-Out 08/21/2025 08/21/2025 08/21/20 25 2:03 PM EDT Assessment Noted Time PHQ-9 Depression Total Score: 0 11/16/20 24 11:05 AM EST A fall risk assessment has been complete d for the patient 03/19/2023 1:57 PM EDT A Body Mass Index follow-up plan has been documented for the patient 11/16/2024 12:14 PM EST documented as of this encounter Care Teams Vp Software Relationship Specialty Start Date End Date Georgette Moore APRN [address] [place] [address] PCP - General 04/12/21 02/01/25 Rodolfo Rhoades MD [address] [place] [address] PCP - General Family Medicine 02/02/25 Marianne Bolaños Clinical Hot Shot 07/14/25 07/28/25 Ariana Bagley Community Health Worker 07/14/25 07/14/25 So Caicedo LPN [employer] [place] [address] TCM Nurse 09/07/25 documented as of this encounter
--- OUTSIDE RECORDS SUMMARY | 2025-09-15 09:52 | XMS_ITS | Encounter Summary ---
Author Organization Healthcare Address [address] [place] [address] Care Team Providers Care Group Fitness Instructor Name Role Phone Rodolfo Rhoades MD Primary Care Provider [phone] Encounter Details Date Type Department Care Team (Latest Contact Info) Description 08/11/2025 Travel Social History Tobacco Use Types Packs/Day [...] [place] [facility]including [place])? No 08/09/2025 [facility] Utilities Answer Date Recorded In [...] Date of Assessment Author No Risk Indicated 08/11/2025 4:00 AM EDT Sherry Schulz * Question Answer Date of Assessment Author 1. Wish to be (Past 1 Month) No 025 4:00 AM EDT Andres Schulz 2. Non-Specific Active Suici omar Thoughts (Past 1 Month) No 08/11/2025 4:00 AM EDT Andres Schulz 6. Suicidal Behavior (Lifetime) No 4:00 AM EDT Andres Schulz documented as of this encounter Plan of Treatment Upcoming Encounters Date Type Department Care Team (Late st Contact Info) Description 09/15/2025 1:00 PM EDT Office Visit [facility] [address] [place] [address] Rodolfo Rhoades MD [address] [place] [address] 09/26/2025 8:00 AM EDT Office Visit [facility] [address] [place] [address] Rodolfo Rhoades MD [address] [place] [address] documented as of this encounter [...] documented as of this encounter Care Teams Group Fitness Instructor Relationship Specialty Start Date End Date Rodolfo Rhoades MD [address] [place] [address] PCP - General Family Medicine 02/02/25 documented as of this encounter
--- OUTSIDE RECORDS SUMMARY | 2025-09-15 09:52 | XMS_ITS | Encounter Summary ---
Author Organization [facility] Address [address] [id number] Care Team Providers Care Lode Miner Name Role Phone Georgette Moore APRN Primary Care Provider [phone] Veronica Goodwin LPN Unavailable Unavailable Margaret Ro Unavailable Unavailable Rodolfo Rhoades MD Primary Care Provider [phone] Marianne Bolaños Unavailable Unavailable Ariana Bagley Unavailable Unavailable So Caicedo TANKER SERVICEMAN Unavailable Unavailable Encounter Details Date Type Department Care Team (Late st Contact Info) Description 02/06/2022 Outside Procedure External Location [address] [place] [id number] Provider, Swapnil Ronan Social History Tobacco Use Types Packs/Day Years [...] Description 09/15/2025 1:00 PM EDT Office Visit [facility] [address] [place] [address] Rodolfo Rhoades MD [address] [place] [address] 09/26/2025 8:00 AM EDT Office Visit [facility] [address] [place] [address] Rodolfo Rhoades MD [address] [place] [address] documented as of this encounter Procedures Procedure Name Priority Date/Time Associated Diagnosis Comments XR THORACIC SPINE 3 VIEWS 02/06/2022 2:09 PM EST documented in this encounter Results * XR Thoracic Spine 3 Views (02/06/2022 2:09 PM EST) Anatomical Region Laterality Modality Spine, T-spine Radiographic Tierra ging 02/06/2022 2:09 PM EST Narrative 02/06/2022 3:19 [place] [address] Name: VERONICA ALVAREZ Exam Date: 02/06/2022 : 1975 Age 46 Gender: F Physician: HORACE RYAN Facility: [facility] Facility HSV: Outpatient Exam: THORACIC [...] Thank you for referring VERONICA ALVAREZ to [facility]. Legally authenticated by GADIEL DELEON 2022-02-06 15:08:18 Procedure Note Provider, Swapnil Ronan - 02/06/2022 [id number] [place] [address] Name: VERONICA ALVAREZ Exam Date: 02/06/2022 : 1975 Age 46 Gender: F Physician: HORACE RYAN Facility: [facility] Facility HSV: Outpatient Exam: THORACIC [...] Thank you for referring VERONICA ALVAREZ to [facility]. Legally authenticated by GADIEL DELEON 2022-02-06 15:08:18 Generic Ronan Provider IMG XR PROCEDURES Fi nal Result [...] 08/10/2025 3:03 PM EDT Respiratory Rule-Out 08/09/2025 08/09/202508/09/2 025 5:51 PM EDT Meningitis Rule-Out 08/21/2025 08/21/2025 08/21/20 2:03 PM EDT Assessment Noted Time A fall risk assessment has been complete d for the patient 08/02/2021 10:52 AM EDT documented as of this encounter Care Teams Lode Miner Relationship Specialty Start Date End Date Georgette Moore APRN [address] [place] [address] PCP - General 04/12/21 02/01/25 Rodolfo Rhoades MD [address] [place] [address] PCP - General Family Medicine 02/02/25 Veronica Goodwin LPN VALUE-[employer]ED [place] [address] TCM Nurse 07/25/24 08/25/24 Margaret Ro Community Health Worker 07/27/24 4 Wages, Marianne Delgado Clinical Medical Records Secretary 07/14/25 07/28/25 Ariana Bagley Community Health Worker 07/14/25 07/14/25 So Caicedo LPN VALUE-[employer]ED [place] [address] TCM Nurse 09/07/25 documented as of this encounter
--- OUTSIDE RECORDS SUMMARY | 2025-09-15 09:52 | XMS_ITS | Encounter Summary ---
Author Organization Healthcare Address [address] [id number] Care Team Providers Care Cellophaner Name Role Phone Rodolfo Rhoades MD Primary Care Provider [phone] Encounter Details Date Type Department Care Team (Late st Contact Info) Description 08/06/2025 Orders Only External Location [address] [place] [address] [place] [address] [place] [address] Social History Tobacco Use Types Packs/Day Years [...] time in the past 12 m [facility], were you homeless or living in a detention (including now)? No 08/09/[address] [facility] Utilities Answer Date Recorded In the past 12 months has e [employer], gas, oil, or water [employer] threatened to shut off services in your [...] of Assessment Author No Risk Indicated 08/10/2025 4:00 AM EDT Ary Jewell RN * Question Answer Date of Assessment Author 1. Wish to be (Past 1 Month) No 025 4:00 AM EDT Ary Jewell RN 2. Non-Specific Active Suici omar Thoughts (Past 1 Month) No 08/10/2025 4:00 AM EDT Elida Jewell RN 6. Suicidal Behavior (Lifetime) No 4:00 AM EDT Ary Jewell RN documented as of this encounter Plan of Treatment Upcoming Encounters Date Type Department Care Team (Late st Contact Info) Description 09/15/2025 1:00 PM EDT Office Visit [facility] [address] [place] [address] Rodolfo Rhoades MD [address] [place] [address] 09/26/2025 8:00 AM EDT Office Visit [facility] [address] [place] [address] Rodolfo Rhoades MD [address] [place] [address] documented as of this encounter Procedures Procedure Name Priority Date/Time Associated Diagnosis Comments XR OUTSIDE IMAGES 08/06/2025 12:26 PM EDT documented in this encounter Results * XR OUTSIDE IMAGES (08/06/2025 12:26 PM EDT) Anatomical Region Laterality Modality Radiographic Tierra ging 08/06/2025 12:2 6 PM EDT Louise ALDANA IMG XR PROCEDURES Edited Resu lt - Final documented in this encounter Visit Diagnoses Not on filedocumented in this encounter Additional Health Concerns Infection Onset Date Last Indicated Resolved Time COVID-19 Rule-Out 08/09/2025 08/09/2025 08/10/2025 3:03 PM EDT Respiratory Rule-Out 08/09/2025 08/09/2025 025 5:51 PM EDT Assessment Noted Time PHQ-9 Depression Total Score: 11 025 10:59 AM EDT A fall risk assessment has been complete d for the patient 03/19/2023 1:57 PM EDT A Body Mass Index follow-up plan has been documented for the patient 06/08/2025 12:14 AM EDT documented as of this encounter Care Teams Cellophaner Relationship Specialty Start Date End Date Rodolfo Rhoades MD [address] [place] [address] PCP - General Family Medicine 02/02/25 documented as of this encounter
--- OUTSIDE RECORDS SUMMARY | 2025-09-15 09:52 | XMS_ITS | Encounter Summary ---
Author Organization Healthcare Address [address] [place] [address] Care Team Providers Care Embroidery Machine Operator Name Role Phone Rodolfo Rhoades MD Primary Care Provider [phone] Encounter Details Date Type Department Care Team (Late st Contact Info) Description 08/07/2025 Orders Only External Location [address] [place] [address] Provider, Swapnil [place] Social History Tobacco Use [...] Description 09/15/2025 1:00 PM EDT Office Visit [facility] [address] [place] [address] Rodolfo Rhoades MD [address] [place] [address] 09/26/2025 8:00 AM EDT Office Visit [facility] [address] [place] [address] Rodolfo Rhoades MD [address] [place] [address] documented as of this encounter Procedures Procedure Name Priority Date/Time Associated Diagnosis Comments TROPONIN ([facility]) Routine 08/07/2025 5:05 AM EDT PROTHROMBIN TIME(PT) / INR Routine 08/07/2025 5:05 AM EDT CBC W/O DIFFERENTIAL Routine 08/07/2025 5:05 AM EDT MAGNESIUM, PLASMA Routine 08/07/2025 5:0 5 AM EDT HEMOGLOBIN A1C Routine 08/07/2025 5:05 AM EDT CK Routine 08/07/2025 5:05 AM EDT LIPID PROFILE, PLASMA Routine 08/07/2025 5:05 AM EDT BASIC METABOLIC PANEL, PLASMA Routine 08/07/2025 5:05 AM EDT documented in this encounter Results * (ABNORMAL) Troponin (EXTERNAL) (08/07/2025 5:05 AM EDT) External Troponin 294(HH) 0 - 51 ng/L [facility] Comment: PATIENT SAMPLES MAY CONTAIN CARDIAC TROPONIN-SPECIFIC AUTO- ANTIBODIES THAT COULD REACT IN IMMUNOASSAYS TO GIVE FALSELY ELEVATED OR DEPRESSED RESULTS.PATIENTS RECEIVING HUMAN ANTI-MOUSE ANTIBODIES (HAMA) MAY SHOW EITHER FALSELY ELEVATED OR FALSELY DE- PRESSED VALUES,COMPLETE ELIMINATION OFINTERFERENCE ISN'T GUARANTEED. A TEST RESULT THAT IS INCONSISTANT WITH THE CLINICAL PICTURE AND PATIENT HISTORY SHOULD BE INTERPRETED WITH CAUTION. BIOTIN CONCENTRATIONS GREATER THAN 300 NG/ML IN PATIENTS SPECIMENS CAN LEAD TO FALSELY DEPRESSED RESULTS FOR PATIENT SAMPLES. TESTING SPECIMENS FROM RENAL DYSFUNCTION PATIENTS TAKING BIOTIN MAY LEAD TO FALSE NEGATIVE RESULTS. RESULTS OF THIS TEST SHOULD BE INTERPRETED IN CONJUCTION CLINICAL FINDINGS AND PATIENTS HISTORY. 08/07/2025 5:05 AM EDT 08/07/2025 8:29 AM EDT [facility] Provider LAB BLOOD ORDERABLES Final Result Performing Organization Address [facility]/ZIP Co de Phone Number [facility] * (ABNORMAL) CK (08/07/2025 5:05 AM EDT) Pathologist [facility] [place] External Creatine Kinase 72882(H) 35 - 232 IU/l [facility] Comment:SPECIMEN HAD TO BE D ILUTED FARTHER. SG 08/07/2025 5:05 AM EDT 08/07/2025 5:38 AM EDT Efizity Addy Provider LAB BLOOD ORDERABLES Edited Result - Final Performing Organization Address [facility] Co de Phone Number [facility] * Hemoglobin A1c (08/07/2025 5:05 AM EDT) Pathologist [facility] [place] External Hemoglobin A1c 5.5 3.8 - 5.6 % [facility] Comment: GLYCOSYLATED HEMOGLOBIN (A1C) EXPECTED RANGES: <6.5 NON-DIABETIC 6.5-7.5 EXCELLENT 7.5-8.5 GOOD >8.5 POOR 08/07/2025 5:05 AM EDT 08/07/2025 5:38 AM EDT Generic Addy Provider LAB BLOOD ORDERABLES Final Result Performing Organization Address [facility] Co de Phone Number [facility] * (ABNORMAL) Lipid Profile, Plasma (08/07/2025 5:05 AM EDT) External Triglyceride 98 30 - 200 mg/dl [facility] External Cholesterol 113 0 - 200 mg/dl [facility] External HDL Cholesterol 28(L) 40 - 104 mg/dL [facility] External LDL Cholesterol-Calcu lated 65 0 - 130 mg/dL [facility] 08/07/2025 5:05 AM EDT 08/07/2025 5:38 AM EDT us Generic Addy Provider LAB BLOOD ORDERABLES Final Result Performing Organization Address [facility] Co de Phone Number [facility] * Magnesium, Plasma (08/07/2025 5:05 AM EDT) External Magnesium 2.1 1.8 - 2.4 MG/DL [facility] 08/07/2025 5:05 AM EDT 08/07/2025 5:38 AM EDT Generic Addy Provider LAB BLOOD ORDERABLES Final Result Performing Organization Address [facility] Co de Phone Number [facility] * (ABNORMAL) Basic Metabolic Panel, Plasma (08/07/2025 5:05 AM EDT) External Sodium 134(L) 136 - 145 mmol/L [facility] External Potassium 4.0 3.6 - 5.0 mmol/L [facility] External Chloride 104 98 - 107 mmol/L [facility] External Carbon Dioxide 24.1 21.0 - 32.0 mmol/L [facility] External Anion Gap (AG) 9.9 [facility] External Glucose 84 70 - 120 mg/dl [facility] External BUN 6(L) 7 - 18 mg/dL [facility] External Creatinine Blood 0.5(L) 0.6 - 1.3 mg/dL [facility] External Estimated GFR 116 60- mlpermin [facility] Comment: GFR LIMITATION: The eGFR equation CKD-EPI 2020 is not applicable for pediatric patients or greater than 90 years of age. The following conditions may alter the GFR result: extremes in body size, malnutrition or obesity, skeletal muscle disease, paraplegia or quadriplegia, vegetarian diet or rapidly changing kiney function. External Osmolality (Calculated) 276 275 - 301 mosm/kg [facility] Comment: OSMOLALITY IS A CALCULATION UTILIZING THE SERUM/PLASMA SODIUM, GLUCOSE AND UREA NITROGEN (BUN) LEVELS. FOR THE MOST ACCURATE RESULT A MEASURED SERUM OSMOLALITY IS SUGGESTED. External Calcium 7.8(L) 8.5 - 10.5 mg/dl [facility] 08/07/2025 5:05 AM EDT 08/07/2025 5:38 AM EDT Efizity Addy Provider LAB BLOOD ORDERABLES Final Result Performing Organization Address [facility] de Phone Number [facility] * (ABNORMAL) Prothrombin Time/INR (08/07/2025 5:05 AM EDT) External Prothrombin Time (PT) 17.3(H) 9.3 - 11.4 SECONDS [facility] External INR - Internormal Ratio 1.7(H) 0.97 - 1.05 Ratio [facility] Comment: INR is intended to be used ONLY for patients on stable oral anticoagulant therapy. Therapeutic Ranges: 2.0-3.0 Usual Therapeutic Range 2.5-3.5 For patients with history of Multiple Deep Vein Thrombus or Mechanical Heart Valves 08/07/2025 5:05 AM EDT 08/07/2025 5:38 AM EDT us Generic Addy Provider LAB BLOOD ORDERABLES Final Result Performing Organization Address [facility]/State/ZIP Co de Phone Number [facility] * (ABNORMAL) CBC W/O Differential (08/07/2025 5:05 AM EDT) External WBC 11.7(H) 4.0 - 10.5 K/ul [facility] External Red Blood Cell (RBC) 3.4(L) 4.2 - 6.4 M/mm3 [facility] External Hemoglobin 10.3(L) 12.5 - 16.0 gm/dl [facility] External Hematocrit 30.8(L) 37.0 - 47.0 % [facility] External MCV 89.5 78 - 100 fl [facility] External MCH 29.9 27 - 31 pg [facility] External MCHC 33.4 32 - 36 g/dl [facility] External RDW 12.7 11.5 - 14.0 % [facility] External Platelets 306 150 - 450 K/ul [facility] External MPV 10.0(H) 6 - 9.5 fl [facility] External Manual Differential NO [facility] 08/07/2025 5:05 AM EDT 08/07/2025 5:38 AM EDT us Generic Addy Provider LAB BLOOD ORDERABLES Final Result [facility] documented in this encounter Visit Diagnoses [...] documented as of this encounter Care Teams Embroidery Machine Operator Relationship Specialty Start Date End Date Rodolfo Rhoades MD [facility] [place] [address] PCP - General Family Medicine 02/02/25 documented as of this encounter
--- OUTSIDE RECORDS SUMMARY | 2025-09-15 09:52 | XMS_ITS | Encounter Summary ---
Author Organization [facility] Address [address] [id number] Care Team Providers Care Repair Servicer Name Role Phone Georgette Moore APRN Primary Care Provider [phone] Veronica Goodwin LPN Unavailable Unavailable Margaret Ro Unavailable Unavailable Rodolfo Rhoades MD Primary Care Provider [phone] Marianne Bolaños Unavailable Unavailable Ariana Bagley Unavailable Unavailable So Caicedo COMPOUNDING ASSISTANT Unavailable Unavailable Encounter Details Date Type Department Care Team (Late st Contact Info) Description 02/06/2022 Outside Procedure External Location [address] [place] [phone] Provider, Swapnil [place] Social History Tobacco Use Types Packs/Day Years [...] Description 09/15/2025 1:00 PM EDT Office Visit [facility] [address] [place] [address] Rodolfo Rhoades MD [address] [place] [address] 09/26/2025 8:00 AM EDT Office Visit [facility] [address] [place] [address] Rodolfo Rhoades MD [address] [place] [address] documented as of this encounter Procedures Procedure Name Priority Date/Time Associated Diagnosis Comments XR LUMBAR SPINE 2 OR 3 VIEWS 02/06/2022 2:09 PM EST documented in this encounter Results * XR Lumbar Spine 2 or 3 Views (02/06/2022 2:09 PM EST) Anatomical Region Laterality Modality Spine, L-spine Radiographic T[place] ging 02/06/2022 2:09 PM EST Narrative 02/06/2022 3:19 [place] [address] Name: VERONICA ALVAREZ Exam Date: 02/06/2022 : 1975 Age 46 Gender: F Physician: HORACE RYAN Facility: [facility] Facility HSV: Outpatient Exam: LUMBAR [...] Thank you for referring VERONICA ALVAREZ to [facility]. Legally authenticated by GADIEL DELEON 2022-02-06 15:07:32 Procedure Note Provider, [facility] - 02/06/2022 [facility] [address] [place] [address] Name: VERONICA ALVAREZ Exam Date: 02/06/2022 : 1975 Age 46 Gender: F Physician: HORACE RYAN Facility: [facility] Facility HSV: Outpatient Exam: LUMBAR [...] Thank you for referring VERONICA ALVAREZ to [facility]. Legally authenticated by GADIEL DELEON 2022-02-06 15:07:32 Generic [place] Provider IMG XR PROCEDURES Fi nal Result [...] documented as of this encounter Care Teams Repair Servicer Relationship Specialty Start Date End Date Georgette Moore APRN [address] [place] [address] PCP - General 04/12/21 02/01/25 Rodolfo Rhoades MD [address] [place] [address] PCP - General Family Medicine 02/02/25 Veronica Goodwin LPN [employer] [place] [address] TCM Nurse 07/25/24 08/25/24 Margaret Ro Community Health Worker 07/27/24 4 WaMarianne glez Clinical Emergency Manager 07/14/25 07/28/25 Ariana Bagley Community Health Worker 07/14/25 07/14/25 So Caicedo LPN [employer] [place] [address] TCM Nurse 09/07/25 documented as of this encounter
--- OUTSIDE RECORDS SUMMARY | 2025-09-15 09:52 | XMS_ITS | Encounter Summary ---
Author Organization Healthcare Address [address] [place] [address] Care Team Providers Care Grated Cheese Maker Name Role Phone Rodolfo Rhoades MD Primary Care Provider [phone] Encounter Details Date Type Department Care Team (Latest Contact Info) Description 08/17/2025 Travel Social History Tobacco Use Types Packs/Day [...] time in the past 12 m [facility], were you homeless or living in a chcf (including now)? No 08/09/2025 [facility] Utilities Answer Date Recorded In the [...] Date of Assessment Author No Risk Indicated 08/17/2025 10:00 PM EDT Damián Recio * Question Answer Date of Assessment Author 1. Wish to be (Past 1 Month) No 025 10:00 PM EDT Damián Recio 2. Non-Specific Active Suici omar Thoughts (Past 1 Month) No 08/17/2025 10:00 PM EDT Mina Recio 6. Suicidal Behavior (Lifetime) No 10:00 PM EDT Damián Recio documented as of this encounter Plan of Treatment Upcoming Encounters Date Type Department Care Team (Late st Contact Info) Description 09/15/2025 1:00 PM EDT Office Visit [facility] [address] [place] [address] Rodolfo Rhoades MD [address] [place] [address] 09/26/2025 8:00 AM EDT Office Visit [facility] [address] [place] [address] Rodolfo Rhoades MD [address] [place] [address] documented as of this encounter [...] documented as of this encounter Care Teams Grated Cheese Maker Relationship Specialty Start Date End Date Rodolfo Rhoades MD [address] [place] [address] PCP - General Family Medicine 02/02/25 documented as of this encounter
--- OUTSIDE RECORDS SUMMARY | 2025-09-15 09:52 | XMS_ITS | Encounter Summary ---
Author Organization Healthcare Address [address] [place] [address] Care Team Providers Care [place] Erector Name Role Phone Rodolfo Rhoades MD Primary Care Provider [phone] Encounter Details Date Type Department Care Team (Latest Contact Info) Description 08/15/2025 Travel Social History Tobacco Use Types Packs/Day [...] any time in the past 12 m [facility], were you homeless or living in a detention (including now)? No 08/09/2025 [facility] Utilities Answer Date Recorded In the [...] Description 09/15/2025 1:00 PM EDT Office Visit [facility] [address] [place] [address] Rodolfo Rhoades MD [address] [address] 09/26/2025 8:00 AM EDT Office Visit [facility] [address] [place] [address] Rodolfo Rhoades MD [address] [address] documented as of this encounter Visit [...] documented as of this encounter Care Teams [place] Erector Relationship Specialty Start Date End Date Rodolfo Rhoades MD [address] [address] PCP - General Family Medicine 02/02/25 documented as of this encounter
--- OUTSIDE RECORDS SUMMARY | 2025-09-15 09:53 | XMS_ITS | Encounter Summary ---
Author Organization Healthcare Address [address] [id number] Care Team Providers Care Film Replacement Orderer Name Role Phone Rodolfo Rhoades MD Primary Care Provider [phone] Encounter Details Date Type Department Care Team (Late st Contact Info) Description 08/08/2025 Orders Only External Location [address] [place] [address] [place] [address] [place] [address] Social History Tobacco Use Types Packs/Day Years [...] any time in the past 12 m [facility], were you homeless or living in a m[facility] (including now)? No 08/09/2025 [facility] Utilities Answer Date Recorded In the past 12 months has e my4oneone, gas, oil, or water Rep threatened to shut off services in your [...] Andres Schulz 6. Suicidal Behavior (Lifetime) No 5 4:00 AM EDT Andres Schulz documented as of this encounter Plan of Treatment Upcoming Encounters Date Type Department Care Team (Late st Contact Info) Description 09/15/2025 1:00 PM EDT Office Visit [facility] [address] [place] [address] Rodolfo Rhoades MD [address] [place] [address] 09/26/2025 8:00 AM EDT Office Visit [facility] [address] [place] [address] Rodolfo Rhoades MD [address] [place] [address] documented as of this encounter Procedures Procedure Name Priority Date/Time Associated Diagnosis Comments CBC W/O DIFFERENTIAL Routine 08/08/2025 9:[address] OUTSIDE IMAGES 08/08/2025 1:2 8 PM EDT documented in this encounter Results * (ABNORMAL) CBC W/O Differential (08/08/2025 9:00 PM EDT) External WBC 9.6 4.0 - 10.5 K/ul [facility] External Red Blood Cell (RBC) 3.9(L) 4.2 - 6.4 M/mm3 [facility] External Hemoglobin 11.6(L) 12.5 - 16.0 gm/dl [facility] External Hematocrit 34.1(L) 37.0 - 47.0 % [facility] External MCV 87.9 78 - 100 fl [facility] External MCH 29.9 27 - 31 pg [facility] External MCHC 34.0 32 - 36 g/dl [facility] External RDW 12.5 11.5 - 14.0 % [facility] External Platelets 423 150 - 450 K/ul [facility] External MPV 9.9(H) 6 - 9.5 fl [facility] External Manual Differential NO [facility] 08/08/2025 9:00 PM EDT 08/08/2025 9:05 PM EDT us Generic [place] Provider LAB BLOOD ORDERABLES Final Result [facility] * CT OUTSIDE IMAGES (08/08/2025 1:28 PM EDT) Anatomical Region Laterality Modality Computed Tomogra phy 08/08/2025 1:28 PM EDT us Louise ALDANA IMLayo CT PROCEDURES Edited Resu lt - Final documented [...] documented as of this encounter Care Teams Film Replacement Orderer Relationship Specialty Start Date End Date Rodolfo Rhoades MD [address] [place] [address] PCP - General Family Medicine 02/02/25 documented as of this encounter
--- OUTSIDE RECORDS SUMMARY | 2025-09-15 09:53 | XMS_ITS | Encounter Summary ---
Author Organization Healthcare Address [address] [id number] Care Team Providers Care Souvenir Assembler Name Role Phone Rodolfo Rhoades MD Primary Care Provider So Caicedo LPN Unavailable Unavailable Encounter Details Date Type Department Care Team (Late st Contact Info) Description 08/08/2025 Outside Procedure External Location [address] [place] [phone] Provider, Swapnil [place] Social History Tobacco Use Types Packs/Day Years [...] any time in the past [facility] m [facility], [facility] or living in a [facility] (including now)? No 08/09/2025 [facility] Utilities Answer Date Recorded In the [...] Description 09/15/2025 1:00 PM EDT Office Visit [facility] [address] [place] [address] Rodolfo Rhoades MD [address] [place] [address] 09/26/2025 8:00 AM EDT Office Visit [facility] [address] [place] [address] Rodolfo Rhoades MD [address] [place] [address] documented as of this encounter Procedures Procedure Name Priority Date/Time Associated Diagnosis Comments CT HIP LEFT W IV CONTRAST 08/08/2025 10:23 AM EDT documented in this encounter Results * CT Hip Left w IV Contrast (08/08/2025 10:23 AM EDT) Anatomical Region Laterality Modality Lower Extremities, Hip Left Computed Tomography 08/08/2025 10:2 3 AM EDT Narrative 08/08/2025 3:06 [place] [address] Name: HAILEY ALVAREZ Exam Date: 08/08/2025 : 1975 Age 49 years Gender: F Physician: LOBO LOWERY Facility: [facility] Facility HSV: Inpatient Exam: CT LOWER EXT WITH LT EXAM: CT LOWER EXTREMITY WITH IV CONTRAST LEFT HISTORY: fall, 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 COMPARISON: None. Procedure: Thin section axial images were obtained through the lower extremities after the administration of intravenous contrast.. Reconstructed images in the sagittal and coronal planes were reviewed. CT scans at this facility use dose modulation, iterative reconstruction and/or weight based dosing when appropriate to reduce radiation dose to as low as reasonably achievable. FINDINGS: There is no evidence of acute fracture or dislocation. There is no significant joint effusion at the hip joints or knee joints. There is no measurable lower extremity hematoma. There is redemonstration of pelvic ascites and pneumoperitoneum in the low pelvis further described in the dedicated CT scan of the abdomen and pelvis. Please see that separate report for further details. IMPRESSION: No acute fracture or dislocation. Electronically signed by: Clive Posadas MD 08/08/2025 03:01 PM EDT Dictated By: Clive Posadas Transcribed By: Transcribed On: 08/08/2025 3:01 PM Electronically signed by: Clive Posadas 08/08/2025 Thank you for referring HAILEY ALVAREZ to [facility]. Legally authenticated by AVI Colin 2025-08-08 15:01:48 Procedure Note Provider, Generic [place] - 08/08/2025 [place] [address] Name: HAILEY ALVAREZ Exam Date: 08/08/2025 : 1975 Age 49 years Gender: F Physician: LOBO LOWERY Facility: [facility] Facility HSV: Inpatient Exam: CT LOWER EXT WITH LT EXAM: CT LOWER EXTREMITY WITH IV CONTRAST LEFT HISTORY: fall, 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 COMPARISON: None. Procedure: Thin section axial images were obtained through the lower extremities after the administration of intravenous contrast..Reconstructed images in the sagittal and coronal planes were [facility]. [facility] use dose modulation, iterative reconstruction and/or weightbased dosing when appropriate to reduce radiation dose to as low as reasonably achievable. FINDINGS: There is no evidence of acute fracture or dislocation. There isno significant joint effusion at the hip joints or knee joints. There is no measurable lower extremity hematoma. There is redemonstration of pelvic ascites and pneumoperitoneum in the low pelvis further described in the dedicated CT scan of the abdomen and pelvis. Please see that separatereport for further details. IMPRESSION: No acute fracture or dislocation. Electronically signed by: Clive Posadas MD 08/08/2025 03:01 PM EDT RP Dictated By: Clive Posadas Transcribed By: Transcribed On: 08/08/2025 3:01 PM Electronically signed by: Clive Posadas 08/08/2025 Thank you for referring HAILEY ALVAREZ to [facility]. Legally authenticated by AVI Colin 2025-08-08 15:01:48 us Generic [place] Provider IMG CT PROCEDURES Fi nal Result documented in this [...] documented as of this encounter Care Teams Souvenir Assembler Relationship Specialty Start Date End Date Rodolfo Rhoades MD [address] [place] [address] PCP - General Family Medicine 02/02/25 So Caicedo, CRYPTOGRAPHIC CLERK VALUE-BASED [place] [address] TCM Nurse 09/07/25 documented as of this encounter
--- OUTSIDE RECORDS SUMMARY | 2025-09-15 09:53 | XMS_ITS | Encounter Summary ---
Author Organization Healthcare Address [address] [id number] Care Team Providers Care Jig Filler Name Role Phone Rodolfo Rhoades MD Primary Care Provider [phone] So Caicedo LPN Unavailable Unavailable Encounter Details Date Type Department Care Team (Late st Contact Info) Description 08/08/2025 Outside Procedure External Location [address] [place] [address] [phone] Provider, Swapnil [facility] Social History Tobacco Use Types Packs/Day Years [...] any time in the past 12 m [facility], were you homeless or living in a alf (including now)? No 08/09/2025 [facility] Utilities Answer Date Recorded In the [...] Description 09/15/2025 1:00 PM EDT Office Visit [facility] [address] [place] [address] Rodolfo Rhoades MD [address] [place] [address] 09/26/2025 8:00 AM EDT Office Visit [facility] [address] [place] [address] Rodolfo Rhoades MD [address] [place] [address] documented as of this encounter Procedures Procedure Name Priority Date/Time Associated Diagnosis Comments CT ABDOMEN PELVIS W IV CONTRAST 08/08/2025 10:24 AM EDT documented in this encounter Results * CT Abdomen Pelvis w IV Contrast (08/08/2025 10:24 AM EDT) Anatomical Region Laterality Modality Abdomen, Pelvis Computed Tomogra phy 08/08/2025 10:2 4 AM EDT Narrative 08/08/2025 2:59 PM EDT [facility] [address] [place] [address] Name: HAILEY ALVAREZ Exam Date: 08/08/2025 : 1975 Age 49 years Gender: F Physician: LOBO LOWERY Facility: [facility] Facility HSV: Inpatient Exam: CT ABD PEL W EXAMINATION: CT ABDOMEN PELVIS WITH IV CONTRAST HISTORY: fall, inability to move left leg, severe rhabdomyolysis, r/o fx. COMPARISON: None. TECHNIQUE: Contiguous axial images through the abdomen and pelvis were acquired following the administration of intravenous contrast. Reconstructed images in the coronal and sagittal planes were reviewed. CT scans at this facility use dose modulation, iterative reconstruction and/or weight based dosing when appropriate to reduce radiation dose to as low as reasonably achievable. FINDINGS: Linear atelectasis is seen at the lung bases bilaterally. A trace left pleural effusion is present. Cholecystectomy clips are present. The liver, pancreas, adrenal glands, and kidneys are within normal limits. The abdominal aorta is normal caliber. There is heterogeneous enhancement of the spleen which can be seen with earlier postcontrast enhanced phase of imaging. However, there are areas of marked low density along the subcapsular region of the upper half of the spleen. Small volume ascites is seen in the peritoneal cavity. A component of the ascitic fluid is hyperdense in the low pelvis indicative of hemoperitoneum. There are no focal areas of active contrast extravasation identified. The stomach is unremarkable. There is a loop of small bowel in the left abdomen that demonstrate mild circumferential wall thickening. The colon is unremarkable. The bladder is collapsed with a Hart catheter. The uterus is absent. Ovaries are not visualized. There is no evidence for pneumoperitoneum. Subcutaneous edema is seen throughout the pelvic bahena. No acute osseous abnormality or fracture identified. IMPRESSION: Small volume ascites with a component of hemoperitoneum in the pelvis. The source for pneumoperitoneum is not obvious. There are areas of subcapsular low-attenuation in the upper half of the spleen which could represent areas of splenic laceration in the setting of all injury. There is no evidence for active arterial extravasation on the current exam. Surgery consultation is recommended. Circumferential wall thickening involving a loop of left abdominal small bowel which could be related to enteritis or contusion. Trace left pleural effusion and bibasilar atelectasis. Pelvic wall subcutaneous edema. Electronically signed by: Clive Posadas MD 08/08/2025 02:56 PM EDT Legally authenticated by AVI Colin 2025-08-08 14:56:42 Dictated By: Clive Posadas Transcribed By: Transcribed On: 08/08/2025 2:56 PM Electronically signed by: Clive Posadas 08/08/2025 Thank you for referring HAILEY ALVAREZ to [facility]. Legally authenticated by AVI Colin 2025-08-08 14:56:42 Procedure Note Provider, Generic [facility] - 08/08/[id number] [place] [address] Name: HAILEY ALVAREZ Exam Date: 08/08/2025 : 1975 Age 49 years Gender: F Physician: LOBO OLWERY Facility: [facility] Facility HSV: Inpatient Exam: CT ABD PEL W EXAMINATION: CT ABDOMEN PELVIS WITH IV CONTRAST HISTORY: fall, inability to move left leg, severe rhabdomyolysis, r/ofx. COMPARISON: None. TECHNIQUE: Contiguous axial images through the abdomen and pelvis were acquired following the administration of intravenous contrast.Reconstructed images in the coronal and sagittal planes were reviewed. [facility] use dose modulation, iterative reconstruction and/or weightbased dosing when appropriate to reduce radiation dose to as low as reasonably achievable. FINDINGS: Linear atelectasis is seen at the lung bases bilaterally. Atrace left pleural effusion is present. Cholecystectomy clips are present. The liver, pancreas, adrenal glands,and kidneys are within normal limits. The abdominal aorta is normal caliber. There is heterogeneous enhancement of the spleen which can be seen with earlier postcontrast enhanced phase of imaging. However, there are areasof marked low density along the subcapsular region of the upper half of the spleen. Small volume ascites is seen in the peritoneal cavity. A component ofthe ascitic fluid is hyperdense in the low pelvis indicative ofhemoperitoneum. There are no focal areas of active contrast extravasation identified. The stomach is unremarkable. There is a loop of small bowel in the left abdomen that demonstrate mild circumferential wall thickening. The colonis unremarkable. The bladder is collapsed with a Hart catheter. The uterus is absent.Ovaries are not visualized. There is no evidence for pneumoperitoneum. Subcutaneous edema is seen throughout the pelvic bahena. No acute osseous abnormality or fracture identified. IMPRESSION: Small volume ascites with a component of hemoperitoneum in the pelvis.The source for pneumoperitoneum is not obvious. There are areas ofsubcapsular low-attenuation in the upper half of the spleen which could representareas of splenic laceration in the setting of all injury. There is no evidencefor active arterial extravasation on the current exam. Surgery consultationis recommended. Circumferential wall thickening involving a loop of left abdominal smallbowel which could be related to enteritis or contusion. Trace left pleural effusion and bibasilar atelectasis. Pelvic wall subcutaneous edema. Electronically signed by: Clive Posadas MD 08/08/2025 02:56 PM EDT Legally authenticated by AVI Colin 2025-08-08 14:56:42 Dictated By: Clive Posadas Transcribed By: Transcribed On: 08/08/2025 2:56 PM Electronically signed by: Clive Posadas 08/08/2025 Thank you for referring HAILEY ALVAREZ to [facility]. Legally authenticated by AVI Colin 2025-08-08 14:56:42 Generic [facility] Provider IMG CT PROCEDURES Fi nal Result [...] documented as of this encounter Care Teams Jig Filler Relationship Specialty Start Date End Date Rodolfo Rhoades MD [address] [place] [address] PCP - General Family Medicine 02/02/25 So Caicedo LPN [employer] [place] [address] TCM Nurse 09/07/25 documented as of this encounter
--- OUTSIDE RECORDS SUMMARY | 2025-09-15 09:53 | XMS_ITS | Encounter Summary ---
Author Organization Healthcare Address [address] [place] [address] Care Team Providers Care Pediatric Intensive Physician Name Role Phone Rodolfo Rhoades MD Primary Care Provider [phone] Marianne Bolaños Unavailable Unavailable Ariana Bagley Unavailable Unavailable So Caicedo LPN Unavailable Unavailable Reason for Visit * Reason Comments Med Refill Encounter Details Date Type Department Care Team (Late st Contact Info) Description 07/07/2025 Refill [facility] [address] [place] [address] Rodolfo Rhoades MD [address] [place] [address] Social History Tobacco Use Types [...] any time in the past 12 m [facility], were you homeless or [...] Recorded In the past 12 months has [employer] electric, gas, oil, or water company threatened [...] Description 09/15/2025 1:00 PM EDT Office Visit [facility] [address] [place] [address] Rodolfo Rhoades MD [address] [place] [address] 09/26/2025 8:00 AM EDT Office Visit [facility] [address] [place] [address] Rodolfo Rhoades MD [address] [place] [address] documented as of this encounter [...] documented as of this encounter Care Teams Pediatric Intensive Physician Relationship Specialty Start Date End Date Rodolfo Rhoades MD [address] [place] [address] PCP - General Family Medicine 02/02/25 Marianne Bolaños Clinical Digital Librarian 07/14/25 07/28/25 Ariana Bagley Community Health Worker 07/14/25 07/14/25 So Caicedo LPN [employer] [place] [address] TCM Nurse 09/07/25 documented as of this encounter
--- OUTSIDE RECORDS SUMMARY | 2025-09-15 09:53 | XMS_ITS | Encounter Summary ---
Author Organization Healthcare Address [address] [id number] Care Team Providers Care Staff Software Engineer Name Role Phone Rodolfo Rhoades MD Primary Care Provider [phone] Encounter Details Date Type Department Care Team (Late st Contact Info) Description 08/08/2025 Orders Only External Location [address] [place] [address] [place] [address] [place] [address] Social History Tobacco Use Types Packs/Day Years [...] in a assisted (including now)? No 08/09/2025 [facility] Utilities Answer Date Recorded In the past 12 months has e [employer], gas, oil, or water [employer] threatened to shut off services in your [...] Description 09/15/2025 1:00 PM EDT Office Visit [facility] [address] [place] [address] Rodolfo Rhoades MD [address] [place] [address] 09/26/2025 8:00 AM EDT Office Visit [facility] [address] [place] [address] Rodolfo Rhoades MD [address] [place] [address] documented as of this encounter Procedures Procedure Name Priority Date/Time Associated Diagnosis Comments APTT Routine 08/08/2025 9:00 PM EDT PROTHROMBIN TIME(PT) / INR Routine 08/08/2025 9:00 PM EDT MAGNESIUM, PLASMA Routine 08/08/2025 9:0 0 PM EDT COMPREHENSIVE METABOLIC PANEL, PLASMA Routine 08/08/2025 9:00 PM EDT METHICILLIN RESISTANT STAPHYLOCOCCUS AUREUS (MRSA) CULTURE Routine 08/08/2025 8:[address] OUTSIDE IMAGES 08/08/2025 1:2 8 PM EDT documented in this encounter Results * Magnesium, Plasma (08/08/2025 9:00 PM EDT) External Magnesium 2.2 1.8 - 2.4 MG/DL [facility] 08/08/2025 9:00 PM EDT 08/08/2025 9:05 PM EDT us Generic Spray Provider LAB BLOOD ORDERABLES Final Result [facility] * (ABNORMAL) Comprehensive Metabolic Panel, Plasma (08/08/2025 9:00 PM EDT) External Sodium 127(L) 136 - 145 mmol/L [facility] External Potassium 4.6 3.6 - 5.0 mmol/L [facility] External Chloride 94(L) 98 - 107 mmol/L [facility] External Carbon Dioxide 21.7 21.0 - 32.0 mmol/L [facility] External Anion Gap (AG) 15.9 [facility] External Glucose 135(H) 70 - 120 mg/dl [facility] External BUN 11 7 - 18 mg/dL [facility] External Creatinine Blood 0.4(L) 0.6 - 1.3 mg/dL [facility] External Estimated GFR 123 60- mlpermin [facility] Comment: GFR LIMITATION: The eGFR equation CKD-EPI 2020 is not applicable for pediatric patients or greater than 90 years of age. The following conditions may alter the GFR result: extremes in body size, malnutrition or obesity, skeletal muscle disease, paraplegia or quadriplegia, vegetarian diet or rapidly changing kiney function. External Osmolality (Calculated) 267(L) 275 - 301 mosm/kg [facility] Comment: OSMOLALITY IS A CALCULATION UTILIZING THE SERUM/PLASMA SODIUM, GLUCOSE AND UREA NITROGEN (BUN) LEVELS. FOR THE MOST ACCURATE RESULT A MEASURED SERUM OSMOLALITY IS SUGGESTED. External Total Protein 6.2(L) 6.4 - 8.2 g/dl [facility] External Albumin 1.8(L) 3.4 - 5.0 g/dl [facility] External Globulin 4.4 [facility] External Albumin/Globuli n Ratio 0.4(L) 0.7 - 2 [facility] External Calcium 8.3(L) 8.5 - 10.5 mg/dl [facility] External Bilirubin Total 1.00 0.10 - 1.00 mg/dL [facility] External AST (SGOT) 2362(H) 0 - 37 U/L [facility] External ALT (SGPT) 824(H) 0 - 65 U/L [facility] External Alkaline Phosphatase 93 46 - 116 U/L [facility] 08/08/2025 9:00 PM EDT 08/08/2025 9:05 PM EDT [facility] Provider LAB BLOOD ORDERABLES Final Result Performing Organization Address [facility] Co de Phone Number [facility] * APTT (08/08/2025 9:00 PM EDT) External Partial Thromboplastin Time (PTT) 26.1 24.5 - 32.8 SECONDS [facility] 08/08/2025 9:00 PM EDT 08/08/2025 9:05 PM EDT [facility] Provider LAB BLOOD ORDERABLES Final Result Performing Organization Address [facility] Co de Phone Number [facility] * (ABNORMAL) Prothrombin Time/INR (08/08/2025 9:00 PM EDT) External Prothrombin Time (PT) 11.2 9.3 - 11.4 SECONDS [facility] External INR - Internormal Ratio 1.1(H) 0.97 - 1.05 Ratio [facility] Comment: INR is intended to be used ONLY for patients on stable oral anticoagulant therapy. Therapeutic Ranges: 2.0-3.0 Usual Therapeutic Range 2.5-3.5 For patients with history of Multiple Deep Vein Thrombus or Mechanical Heart Valves 08/08/2025 9:00 PM EDT 08/08/2025 9:05 PM EDT Generic Spr[facility] Provider LAB BLOOD ORDERABLES Final Result Performing Organization Address [facility]/ZIP Co de Phone Number [facility] * Methicillin Resistant Staphylococcus aureus (MRSA) Culture (08/08/2025 8:35 PM EDT) External Culture NEGATIVE NEGATIVE [facility] Nasal contents 08/08/2025 8: 35 PM EDT 08/08/2025 9:05 PM EDT [employer] Spr[facility] Provider LAB MICROBIOLOGY - G ENERAL ORDERABLES Final Result Performing Organization Address [facility]/ZIP Co de Phone Number [facility] * CT OUTSIDE IMAGES (08/08/2025 1:28 PM EDT) Anatomical Region Laterality Modality Computed Tomogra phy 08/08/2025 1:28 PM EDT [address] CT PROCEDURES Edited Resu lt - Final [...] documented as of this encounter Care Teams Staff Software Engineer Relationship Specialty Start Date End Date Rodolfo Rhoades MD [address] [place] [address] PCP - General Family Medicine 02/02/25 documented as of this encounter
--- OUTSIDE RECORDS SUMMARY | 2025-09-15 09:53 | XMS_ITS | Encounter Summary ---
Author Organization [facility] Address [facility] [place] [address] Care Team Providers Care Tool And Die Supervisor Name Role Phone Rodolfo Rhoades MD Primary Care Provider [phone] Marianne Bolaños Unavailable Unavailable Ariana Bagley Unavailable Unavailable Reason for Visit * Reason Onset Date Comments HCN Clinical Concern/Question 07/06/2025 Encounter Details Date Type Department Care Team (Late st Contact Info) Description 07/05/2025 Telephone [facility] & [address] [address] Rodolfo Rhoades MD [address] [place] [address] HCN Clinical Concern/Question Social History Tobacco [...] living in a retirement (including now)? No 07/14/2025 Safety and Environment [...] th e electric, gas, oil, or water [employer] threatened to shut off services in your [...] 07/14/2025 11:06 AM EDT Mindy Holt * How difficult have these problems made it for you to do your work, take care of things at home, or get along with other people? Answer Date of Assessment Author Somewhat difficult 07/14/2025 10:59 AM EDT Mindy Hatfield * How difficult have these problems made [...] clinic, returning Mindy's call. Best contact number: [phone] (home) Optimal time of day to reach [...] will receive notification of the communication/outcome via [employer]. * Telephone Encounter - Mindy Gudino - 07/06/2025 8:57 AM EDT Called left vm. * Telephone Encounter - Jayde Treadwell - 07/05/2025 3:14 PM EDT Clinical Concern/Question Reason for Call: Pt wants to let know that she missed her appt today because she doesn't have any transportation and she couldn't call until now to sole because her phone got cut off. She says she's still having the swelling and now she's having a burning feeling in her legs and feet. She's taking her water pills and trying to keep her feet elevated when she can. Is there anything can recommend? She can't come back until 07/21 due to transportation. Pls advise. Thanks. Best contact number: [phone] (home) Optimal time of day to reach caller: ANYTIME Additional comments/information from caller: None Note: Please do not reply to this message. Follow-up communication and further actions as a result of this message need to be communicated with the patient directly, if the patient is not active onMyChart. If the patient is active on MyChart, they will receive notification of the communication/outcome via [employer]. documented in this encounter Plan of Treatment Upcoming Encounters Date Type Department Care Team (Late Contact Info) Description 09/15/2025 1:00 PM EDT Office Visit [facility] [address] [place] [address] Rodolfo Rhoades MD [address] [place] [address] 09/26/2025 8:00 AM EDT Office Visit [facility] [address] [place] [address] Rodolfo Rhoades MD [address] [place] [address] documented as of this encounter [...] documented as of this encounter Care Teams Tool And Die Supervisor Relationship Specialty Start Date End Date Rodolfo Rhoades MD [address] [place] [address] PCP - General Family Medicine 02/02/25 Marianne Bolaños Clinical Polymer Scientist 07/14/2507/28 Ariana Bagley Community Health Worker 07/14/25 07/14/25 documented as of this encounter
--- OUTSIDE RECORDS SUMMARY | 2025-09-15 09:53 | XMS_ITS | Encounter Summary ---
Author Organization Healthcare Address [address] [place] [address] Care Team Providers Care Bottle Line Worker Name Role Phone Rodolfo Rhoades MD Primary Care Provider Encounter Details Date Type Department Care Team (Late st Contact Info) Description 08/06/2025 Orders Only External Location [address] [place] [address] Provider, External Social History Tobacco Use Types Packs/Day Years [...] in a fpc (including now)? No 08/09/2025 [facility] Utilities Answer Date Recorded In the [...] Description 09/15/2025 1:00 PM EDT Office Visit [facility] [address] [place] [address] Rodolfo Rhoades MD [address] [place] [address] 09/26/2025 8:00 AM EDT Office Visit [facility] [address] [place] [address] Rodolfo Rhoades MD [address] [place] [address] documented as of this encounter Procedures Procedure Name Priority Date/Time Associated Diagnosis Comments XR OUTSIDE IMAGES 08/06/2025 9:49 AM EDT documented in this encounter Results * XR OUTSIDE IMAGES (08/06/2025 9:49 AM EDT) Anatomical Region Laterality Modality Radiographic Tierra ging 08/06/2025 9:49 AM EDT us External Provider IMG XR PROCEDURES Edited Resul t - Final documented in this encounter Visit [...] documented as of this encounter Care Teams Bottle Line Worker Relationship Specialty Start Date End Date Rodolfo Rhoades MD [address] [place] [address] PCP - General Family Medicine 02/02/25 documented as of this encounter
--- OUTSIDE RECORDS SUMMARY | 2025-09-15 09:53 | XMS_ITS | Encounter Summary ---
Author Organization Healthcare Address [address] [id number] Care Team Providers Care Sales Promoter Name Role Phone Rodolfo Rhoades MD Primary Care Provider [phone] So Caicedo LPN Unavailable Unavailable Reason for Visit * Reason Comments TCM Encounter Details Date Type Department Care Team (Late st Contact Info) Description 09/08/2025 Patient Outreach [facility] [address], [address] [place] [id number] So Caicedo LPN VALUE-[employer]ED [place] [address] TCM Social History Tobacco Use Types Packs/Day [...] any time in the past 12 m [facility], were you homeless or living in a mcc (including now)? No 08/09/2025 [facility] Utilities Answer Date Recorded In the past 12 months has th e Than[employer], gas, oil, or water [employer] threatened to shut off services in your [...] Progress Notes - So Caicedo LPN - 09/08/2025 2:36 PM EDT Admit Date: 08/08/2025 Discharge Date: 09/06/2025 Hospital Service: [facility] Discharge Diagnosis: Rhabdomyolysis 09/08/2025 TCM call # 2 Patient Reached: Y Outcome: Patient's daughter Dony answered. Patient's daughter reports her mother is doing reallygood. Reports her mother does continue to report pain in her LLE with no increase since hospital discharge. Denied her mother with complaints of N/V, diarrhea, fever, chills, CP, palpitations, increased SOA, cough, swelling, increased weakness/fatigue, confusion, increased redness, swelling or drainage of wounds, urine complaints or difficulty swallowing. Reports her mother is complaint with herat home oxygen and states her mother's BP was normal. Patient's daughter states she is not certain of her mother's medications and is unable to review them during nurse call. Advised patient's daughter to have her mother take all medications in original containers to [facility] appointment for review. Dony states her mother has a copy of her discharge instructions and picked up her new medications. Sdoh is up to date and Dony denied her mother with any new Sdoh needs at time of nurse call and reports her mother will have transportation to her [facility] appointment. Dony did not have any other questions, concerns or complaints at time of nurse call. Action: Reviewed upcoming appointment details in Epic with patient's daughter during nurse call. Medication changes per discharge summary: New Medications: [...] Office Visit [facility] [address] [place] [address] Rodolfo Rhoades MD [address] [place] [address] 09/26/2025 8:00 AM EDT Office Visit [facility] [address] [place] [address] Rodolfo Rhoades MD [address] [place] [address] documented as of this encounter [...] documented as of this encounter Care Teams Sales Promoter Relationship Specialty Start Date End Date Rodolfo Rhoades MD [address] [place] [address] PCP - General Family Medicine 02/02/25 So Caicedo LPN VAL[employer] [place] [address] TCM Nurse 09/07/25 documented as of this encounter
--- OUTSIDE RECORDS SUMMARY | 2025-09-15 09:53 | XMS_ITS | Encounter Summary ---
Author Organization Healthcare Address [facility] [place] [address] Care Team Providers Care Associate Loan Officer Name Role Phone Rodolfo Rhoades MD Primary Care Provider [phone] So Caicedo LPN Unavailable Unavailable Encounter Details Date Type Department Care Team (Late st Contact Info) Description 09/08/2025 Telephone [facility] [address] [place] [address] Rodolfo Rhoades MD [address] [place] [address] Social History Tobacco Use Types [...] time in the past 12 m [facility], were you homeless or living in a care home (including now)? No 08/09/2025 [facility] Utilities Answer Date Recorded In the [...] * Telephone Encounter - Mindy Gudino - 09/08/2025 4:56 PM EDT Pt called back and was informed that Dr. Rhoades was out sick last week, off the past 2 days, so his schedule is full and first available appt is September 20. Informed pt that I will send task to Dr. Rhoades to ask what he wants me to do and call her back on Thursday. Pt voiced understanding. * Telephone Encounter - Mindy Gudino - 09/08/2025 4:46 PM EDT Called left vm. * Telephone Encounter - Bri Collins - 09/08/2025 4:39 PM EDT Clinical Concern/Question Reason for Call: Pt is currently scheduled on 09/13 with DERRELL Burgos for a MARVIN. Given her condition she would like this particular visit to be with Dr. Rhoades her PCP. The hospital thinks pts symptoms may be due to some current medications she is taking. She is also unable to work. Asking if she can beoverbooked with him instead. Best contact number: [phone] (mobile) Optimal time of day to reach caller: ANYTIME Additional comments/information from caller: Overbook request Note: Please do not reply to this [...] PM EDT Office Visit [facility] [address] [place] [address] Rodolfo Rhoades MD [address] [place] [address] 09/26/2025 8:00 AM EDT Office Visit [facility] [address] [place] [address] Rodolfo Rhoades MD [address] [place] [address] documented as of this encounter [...] documented as of this encounter Care Teams Associate Loan Officer Relationship Specialty Start Date End Date Rodolfo Rhoades MD [address] [place] [address] PCP - General Family Medicine 02/02/25 So Caicedo LPN [employer] [place] [address] TCM Nurse 09/07/25 documented as of this encounter
--- OUTSIDE RECORDS SUMMARY | 2025-09-15 09:53 | XMS_ITS | Encounter Summary ---
Author Organization Healthcare Address [address] [place] [address] Care Team Providers Care Soldering Machine Operator Name Role Phone Rodolfo Rhoades MD Primary Care Provider [phone] Encounter Details Date Type Department Care Team (Latest Contact Info) Description 08/09/2025 Travel Social History Tobacco Use Types Packs/Day [...] time in the past 12 m [facility], were you homeless or living in a skilled nursing (including now)? No 08/09/2025 [facility] Utilities Answer Date Recorded In the [...] Date of Assessment Author No Risk Indicated 08/09/2025 8:00 PM EDT Ary Jewell RN * Question Answer Date of Assessment Author 1. Wish to be (Past 1 Month) No 025 8:00 PM EDT Ary Jewell RN 2. Non-Specific Active Suici omar Thoughts (Past 1 Month) No 08/09/2025 8:00 PM EDT Elida Jewell RN 6. Suicidal Behavior (Lifetime) No 8:00 PM EDT Ary Jewell RN documented as of this encounter Plan of Treatment Upcoming Encounters Date Type Department Care Team (Late st Contact Info) Description 09/15/2025 1:00 PM EDT Office Visit [facility] [address] [place] [address] Rodolfo Rhoades MD [address] [place] [address] 09/26/2025 8:00 AM EDT Office Visit [facility] [address] [place] [address] Rodolfo Rhoades MD [address] [place] [address] documented as of this encounter [...] documented as of this encounter Care Teams Soldering Machine Operator Relationship Specialty Start Date End Date Rodolfo Rhoades MD [address] [place] [address] PCP - General Family Medicine 02/02/25 documented as of this encounter
--- OUTSIDE RECORDS SUMMARY | 2025-09-15 09:54 | XMS_ITS | Encounter Summary ---
Author Organization Healthcare Address [address] [place] [address] Care Team Providers Care Assistant Reading Teacher Name Role Phone Rodolfo Rhoades MD Primary Care Provider [phone] Encounter Details Date Type Department Care Team (Late st Contact Info) Description 08/06/2025 Orders Only External Location [address] [place] [address] Provider, Swapnil [place] Social History Tobacco Use [...] any time in the past 12 m [facility], were you homeless or living in a detention (including now)? No 07/14/2025 Safety and Environment [...] Description 09/15/2025 1:00 PM EDT Office Visit [facility] [address] [place] [address] Rodolfo Rhoades MD [address] [place] [address] 09/26/2025 8:00 AM EDT Office Visit [facility] [address] [place] [address] Rodolfo Rhoades MD [address] [place] [address] documented as of this encounter Procedures Procedure Name Priority Date/Time Associated Diagnosis Comments MAGNESIUM, PLASMA Routine 08/06/2025 7:5 0 PM EDT APTT Routine 08/06/2025 1:30 PM EDT PROTHROMBIN TIME(PT) / INR Routine 08/06/2025 1:30 PM EDT TROPONIN ([facility]) Routine 08/06/2025 1:22 PM EDT PHOSPHORUS, PLASMA Routine 08/06/2025 1: 22 PM EDT MAGNESIUM, PLASMA Routine 08/06/2025 1:2 2 PM EDT CK Routine 08/06/2025 1:22 PM EDT TROPONIN ([facility]) Routine 08/06/2025 10:00 AM EDT APTT Routine 08/06/2025 10:00 AM EDT PROTHROMBIN TIME(PT) / INR Routine 08/06/2025 10:00 AM EDT COMPREHENSIVE URINE DRUG SCREENING,QUALITATIVE ASSAY, >= 27 DRUG CLASSES Routine 08/06/2025 9:09 AM EDT TROPONIN ([facility]) Routine 08/06/2025 7:50 AM EDT ETHYL ALCOHOL PLASMA Routine 08/06/2025 7:50 AM EDT CBC WITH AUTO DIFFERENTIAL Routine 08/06/2025 7:50 AM EDT TEST QUALITATIVE PLASMA Routine 08/06/2025 7:50 AM EDT LACTIC ACID, PLASMA Routine 08/06/2025 7 :50 AM EDT CK Routine 08/06/2025 7:50 AM EDT COMPREHENSIVE METABOLIC PANEL, PLASMA Routine 08/06/2025 7:50 AM EDT documented in this encounter Results * Magnesium, Plasma (08/06/2025 7:50 PM EDT) External Magnesium 1.8 1.8 - 2.4 MG/DL [facility] 08/06/2025 7:50 PM EDT 08/06/2025 7:55 PM EDT us Generic [place] Provider LAB BLOOD ORDERABLES Final Result [facility] * (ABNORMAL) APTT (08/06/2025 1:30 PM EDT) External Partial Thromboplastin Time (PTT) 120.0(HH) 24.5 - 32.8 SECONDS [facility] 08/06/2025 1:30 PM EDT 08/06/2025 3:28 PM EDT [facility] Provider LAB BLOOD ORDERABLES Final Result Performing Organization Address [facility] de Phone Number [facility] * (ABNORMAL) Prothrombin Time/INR (08/06/2025 1:30 PM EDT) External Prothrombin Time (PT) >140.0(HH ) 9.3 - 11.4 SECONDS [facility] External INR - Internormal Ratio TNP 0.97 - 1.05 Ratio [facility] Comment: TEST NOT PERFORMED INR is intended to be used ONLY for patients on stable oral anticoagulant therapy. Therapeutic Ranges: 2.0-3.0 Usual Therapeutic Range 2.5-3.5 For patients with history of Multiple Deep Vein Thrombus or Mechanical Heart Valves 08/06/2025 1:30 PM EDT 08/06/2025 3:28 PM EDT [facility] Provider LAB BLOOD ORDERABLES Final Result Performing Organization Address [facility] Phone Number [facility] * (ABNORMAL) Magnesium, Plasma (08/06/2025 1:22 PM EDT) External Magnesium 1.7(L) 1.8 - 2.4 MG/DL [facility] 08/06/2025 1:22 PM EDT 08/06/2025 4:46 PM EDT [facility] Provider LAB BLOOD ORDERABLES Final Result Performing Organization Address [facility] Phone Number [facility] * (ABNORMAL) Troponin (EXTERNAL) (08/06/2025 1:22 PM EDT) External Troponin 277(HH) 0 - 51 ng/L [facility] Comment: PATIENT SAMPLES MAY CONTAIN CARDIAC TROPONIN-SPECIFIC [...] IN CONJUCTION CLINICAL FINDINGS AND PATIENTS HISTORY. 08/06/2025 1:22 PM EDT 08/06/2025 2:41 PM EDT [employer] [place] Provider LAB BLOOD ORDERABLES Final Result Performing Organization Address [facility] Phone Number [facility] * Phosphorus, Plasma (08/06/2025 1:22 PM EDT) External Phosphorus 3.0 2.5 - 4.9 mg/dl [facility] 08/06/2025 1:22 PM EDT 08/06/2025 2:41 PM EDT [facility] LAB BLOOD ORDERABLES Final Result Performing Organization Address [facility] Phone Number [facility] * (ABNORMAL) CK (08/06/2025 1:22 PM EDT) External Creatine Kinase 66712(H) 35 - 232 IU/l [facility] 08/06/2025 1:22 PM EDT 08/06/2025 1:23 PM EDT [facility] Provider LAB BLOOD ORDERABLES Final Result Performing Organization Address [facility] Phone Number [facility] * (ABNORMAL) APTT (08/06/2025 10:00 AM EDT) External Partial Thromboplastin Time (PTT) 118.9(HH) 24.5 - 32.8 SECONDS [facility] 08/06/2025 10:0 0 AM EDT 08/06/2025 10:02 AM EDT Generic [place] Provider LAB BLOOD ORDERABLES Final Result Performing Organization Address [facility] de Phone Number [facility] * Prothrombin Time/INR (08/06/2025 10:00 AM EDT) External Prothrombin Time (PT) TNP 9.3 - 11.4 SECONDS [facility] Comment: ABNORMAL RESULTS DUE TO ANTICOAGULANT THERAPY. NUMERIC RESULT WAS UNABLE TO BE OBTAINED THE ANALYZER CAN TEST NOT PERFORMED TEST NOT PERFORMED External INR - Internormal Ratio TNP 0.97 - 1.05 Ratio [facility] Comment: NOT PROVIDE A RESULT THAT IS >140. INR is intended to be used ONLY for patients on stable oral anticoagulant therapy. Therapeutic Ranges: 2.0-3.0 Usual Therapeutic Range 2.5-3.5 For patients with history of Multiple Deep Vein Thrombus or Mechanical Heart Valves 08/06/2025 10:0 0 AM EDT 08/06/2025 10:02 AM EDT [facility] Provider LAB BLOOD ORDERABLES Final Result Performing Organization Address [facility] de Phone Number [facility] * (ABNORMAL) Troponin (EXTERNAL) (08/06/2025 10:00 AM EDT) External Troponin 255(HH) 0 - 51 ng/L [facility] Comment: PATIENT SAMPLES MAY CONTAIN CARDIAC TROPONIN-SPECIFIC [...] IN CONJUCTION CLINICAL FINDINGS AND PATIENTS HISTORY. 08/06/2025 10:0 0 AM EDT 08/06/2025 10:02 AM EDT Generic [place] Provider LAB BLOOD ORDERABLES Final Result Performing Organization Address [facility]/ZIP Co de Phone Number [facility] * Comprehensive Urine Drug Screening, Qualitative Assay, >= 27 Drug Classes (08/06/2025 9:09 AM EDT) External Methadone, Urine Screen NEGATIVE NEGATIVE [facility] External Marijuana Screen-Urine NEGATIVE NEGATIVE [facility] External Cocaine, Urine Screen NEGATIVE NEGATIVE [facility] External Barbiturate, Urine Screen NEGATIVE NEGATIVE [facility] External Benzodiazepine , Urine Screen NEGATIVE NEGATIVE [facility] External Opiates, Urine Screen NEGATIVE NEGATIVE [facility] External Amphetamine, Urine Screen NEGATIVE NEGATIVE [facility] External PCP Screen-Urine NEGATIVE NEGATIVE [facility] Ureter biopsy 08/06/2025 9:0 9 AM EDT 08/06/2025 9:48 AM EDT Generic [place] Provider LAB URINE ORDERABLES Final Result Performing Organization Address [facility] Co de Phone Number [facility] * (ABNORMAL) CBC and Differential (08/06/2025 7:50 AM EDT) External WBC 11.8(H) 4.0 - 10.5 K/ul [facility] External Red Blood Cell (RBC) 4.8 4.2 - 6.4 M/mm3 [facility] External Hemoglobin 14.2 12.5 - 16.0 gm/dl [facility] External Hematocrit 42.2 37.0 - 47.0 % [facility] External MCV 88.8 78 - 100 fl [facility] External MCH 29.9 27 - 31 pg [facility] External MCHC 33.6 32 - 36 g/dl [facility] External RDW 12.4 11.5 - 14.0 % [facility] External Platelets 334 150 - 450 K/ul [facility] External MPV 9.9(H) 6 - 9.5 fl [facility] External Neutrophils % 68.7(H) 43 - 65 % [facility] External Lymphocyte % 9.0(L) 20.5 - 45.5 % [facility] External Monocyte % 5.3(L) 5.5 - 11.7 % [facility] External Eosinophil% 15.4(H) 0.9 - 2.9 % [facility] External Basophil % 0.2 0.2 - 1.0 % [facility] External Immature Granulocyte% 1.4(H) 0.0 - 0.8 % [facility] External Nucleated RBC % 0.0 % [facility] External Neutrophil# 8.1(H) 2.2 - 4.8 K/uL [facility] External Lymphocyte# 1.1(L) 1.3 - 2.9 CELL/MCL [facility] External Monocyte# 0.6 0.3 - 0.8 CELL/[facility] External Eosinophils# 1.8(H) 0 - 0.2 CELL/MCL [facility] External Baso# 0.0 0.0 - 1.0 CELL/[facility] External Immature Granulocyte Abs 0.17 K/ul [facility] External Nucleated RBC Absolute 0.00 K/uL [facility] External Manual Differential YES [facility] External Neutrophils % 81(H) 42 - 76 % [facility] External Lymphocyte % 4(L) 15 - 41 % [facility] External Monocyte % 5 2 - 9 % [facility] External Eosinophils# 8(H) 0 - 3 % [facility] External Atypical Lymph% 2 [facility] External Platelet Estimate ADEQUATE ADEQUATE [facility] External Platelet Morphology NORMAL NORMAL [facility] External RBC Morphology Comment NORMAL NORMAL [facility] 08/06/2025 7:50 AM EDT 08/06/2025 7:51 AM EDT Generic [place] Provider LAB BLOOD ORDERABLES Final Result Performing Organization Address [facility] Co de Phone Number [facility] * Test Qualitative Plasma (08/06/2025 7:50 AM EDT) External Hcg Qualitative Serum NEGATIVE NEGATIVE [facility] External HCG Serum Lot # [id number] [facility] External HCG Serum Expiration Date 01/19/2026 [facility] External HCG Serum Internal Positive Control OK POSITIVE [facility] 08/06/2025 7:50 AM EDT 08/06/2025 8:47 AM EDT Generic [place] Provider LAB BLOOD ORDERABLES Final Result Performing Organization Address [facility] de Phone Number [facility] * Ethyl Alcohol Plasma (08/06/2025 7:50 AM EDT) External Ethyl Alcohol <3 0 - 50 MG/DL [facility] Comment: [place] AL[place] REGULATIONS 100 mg/dl = Clinically intoxicated 350-450 mg/dl Clinically severe intoxication 550 mg/dl Usually fatal 08/06/2025 7:50 AM EDT 08/06/2025 8:48 AM EDT Generic [place] Provider LAB BLOOD ORDERABLES Final Result Performing Organization Address [facility] Co de Phone Number [facility] * (ABNORMAL) CK (08/06/2025 7:50 AM EDT) External Creatine Kinase 57566(H) 35 - 232 IU/l [facility] 08/06/2025 7:50 AM EDT 08/06/2025 7:50 AM EDT us Generic [place] Provider LAB BLOOD ORDERABLES Final Result [facility] * (ABNORMAL) Comprehensive Metabolic Panel, Plasma (08/06/2025 7:50 AM EDT) External Sodium 134(L) 136 - 145 mmol/L [facility] External Potassium 3.8 3.6 - 5.0 mmol/L [facility] External Chloride 98 98 - 107 mmol/L [facility] External Carbon Dioxide 27.6 21.0 - 32.0 mmol/L [facility] External Anion Gap (AG) 12.2 [facility] External Glucose 115 70 - 120 mg/dl [facility] External BUN 8 7 - 18 mg/dL [facility] External Creatinine Blood 0.7 0.6 - 1.3 mg/dL [facility] External Estimated GFR 107 60- mlpermin [facility] Comment: GFR LIMITATION: The eGFR equation CKD-EPI 2020 is not applicable for pediatric patients or greater than 90 years of age. The following conditions may alter the GFR result: extremes in body size, malnutrition or obesity, skeletal muscle disease, paraplegia or quadriplegia, vegetarian diet or rapidly changing kiney function. External Osmolality (Calculated) 278 275 - 301 mosm/kg [facility] Comment: OSMOLALITY IS A CALCULATION UTILIZING THE SERUM/PLASMA SODIUM, GLUCOSE AND UREA NITROGEN (BUN) LEVELS. FOR THE MOST ACCURATE RESULT A MEASURED SERUM OSMOLALITY IS SUGGESTED. External Total Protein 7.3 6.4 - 8.2 g/dl [facility] External Albumin 2.8(L) 3.4 - 5.0 g/dl [facility] External Globulin 4.5 [facility] External Albumin/Globuli n Ratio 0.6(L) 0.7 - 2 [facility] External Calcium 8.9 8.5 - 10.5 mg/dl [facility] External Bilirubin Total 0.50 0.10 - 1.00 mg/dL [facility] External AST (SGOT) 234(H) 0 - 37 U/L [facility] External ALT (SGPT) 88(H) 0 - 65 U/L [facility] External Alkaline Phosphatase 123(H) 46 - 116 U/L [facility] 08/06/2025 7:50 AM EDT 08/06/2025 7:50 AM EDT Generic [place] Provider LAB BLOOD ORDERABLES Final Result Performing Organization Address [facility]/ZIP Co de Phone Number [facility] * (ABNORMAL) Troponin (EXTERNAL) (08/06/2025 7:50 AM EDT) External Troponin 285(HH) 0 - 51 ng/L [facility] Comment: PATIENT SAMPLES MAY CONTAIN CARDIAC TROPONIN-SPECIFIC [...] IN CONJUCTION CLINICAL FINDINGS AND PATIENTS HISTORY. 08/06/2025 7:50 AM EDT 08/06/2025 7:51 AM EDT [facility] Provider LAB BLOOD ORDERABLES Final Result Performing Organization Address [facility]/ZIP Co de Phone Number [facility] * Lactic Acid, Plasma (08/06/2025 7:50 AM EDT) External Lactic Acid 1.0 0.4 - 2.0 mmol/L [facility] 08/06/2025 7:50 AM EDT 08/06/2025 7:51 AM EDT [facility] Provider LAB BLOOD ORDERABLES Final Result [facility] documented in this encounter Visit Diagnoses Not [...] as of this encounter Care Teams Assistant Reading Teacher Relationship Specialty Start Date End Date Rodolfo Rhoades MD [address] [place] [address] PCP - General Family Medicine 02/02/25 documented as of this encounter
--- OUTSIDE RECORDS SUMMARY | 2025-09-15 09:54 | XMS_ITS | Encounter Summary ---
Author Organization Healthcare Address [facility] [place] [address] Care Team Providers Care Ramp Flight Attendant Name Role Phone Rodolfo Rhoades MD Primary Care Provider [phone] Marianne Bolaños Unavailable Unavailable Ariana Bagley Unavailable Unavailable Reason for Visit * Reason Onset Date Comments HCN Paperwork/Documentation Request 07/14/2025 Encounter Details Date Type Department Care Team (Late st Contact Info) Description 07/14/2025 Telephone [facility] [address] [place] [address] Rodolfo Rohades MD [address] [place] [address] HCN Paperwork/Documentation Request Social History Tobacco [...] any time in the past 12 m [facility], were you homeless or living in a assisted (including now)? No 08/09/2025 [facility] Utilities Answer Date Recorded In the [...] Several days 07/14/2025 10:59 AM EDT Rama Gudion Trouble concentrating on things, such as reading [...] 08/11/2025 4:00 AM EDT Sherry Schulz * How difficult have these problems made [...] (Past 1 Month) No 025 4:00 AM EDAndres Webb 2. Non-Specific Active Suici omar Thoughts (Past 1 Month) No 08/11/2025 4:00 AM Andres Treadwell 6. Suicidal Behavior (Lifetime) No 4:00 AM Andres Treadwell documented as of this encounter Miscellaneous Notes [...] for work / HBP Best contact number: [phone] (mobile) Optimal time of day to reach [...] Description 09/15/2025 1:00 PM EDT Office Visit [facility] [address] [place] [address] Rodolfo Rhoades MD [address] [place] [address] 09/26/2025 8:00 AM EDT Office Visit [facility] [address] [place] [address] Rodolfo Rhoades MD [address] [place] [address] documented as of this encounter [...] documented as of this encounter Care Teams Ramp Flight Attendant Relationship Specialty Start Date End Date Rodolfo Rhoades MD [address] [place] [id number] PCP - General Family Medicine 02/02/25 Marianne Bolaños Clinical Lock Maintenance Supervisor 07/14/2507/28 Ariana Bagley Community Health Worker 07/14/25 07/14/25 documented as of this encounter
--- OUTSIDE RECORDS SUMMARY | 2025-09-15 09:54 | XMS_ITS | Clinical Summary ---
Author Organization Healthcare Address 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 clonazePAM (KlonoPIN) 0.5 MG tablet Take 1 tablet by mouth 3 times a day as needed for anxiety. 12/25/19 22 Active fluticasone (Flonase) 50 MCG/ACT nasal sprayIndication s:Acute recurrent maxillary sinusitis Administer 1 spray into each nostril 1 (one) time each day. Shake gently. Before first use, prime pump. After use, clean tip and replace cap. 16 g 12 08/17/20 24 Active metoprolol succinate XL (Toprol-XL) 25 MG 24 hr tablet Take 1 tablet by mouth daily. 09/28/20 24 Active buprenorphine-n aloxone (Suboxone) 8-[address] 2 tablets under the tongue daily. 11/14/20 24 Active albuterol 108 (90 Base) MCG/ACT inhalerIndicati ons:Moderate persistent asthma without complication Inhale 2 puffs as needed for shortness of breath or wheezing. 1 each 2 02/16/20 25 Active alendronate (Fosamax) 70 MG tabletIndicatio [...] A DAY 4 g 07/10/20 25 Active cholecalciferol (Vitamin D-3) 50 MCG (2000 UT) capsule Take 1 capsule by mouth daily. Active warfarin (Coumadin) 2.5 MG tablet Take 1 tablet by mouth daily. 30 tablet 09/06/20 25 Active acetaminophen (Tylenol) 500 MG tablet Take 2 tablets by mouth 3 times a day. 200 tablet 09/06/20 25 Active gabapentin (Neurontin) 800 MG tablet Take 1 tablet by mouth 4 times a day. 120 tablet 09/06/20 25 Active hydrOXYzine pamoate (Vistaril) 25 MG capsule Take 1 capsule by mouth every 6 hours as needed for anxiety. 30 capsule 09/06/20 25 Active lidocaine (Lidoderm) 5 % patch Apply 1 patch topically 1 (one) time each day at the same time over 12 hours. Remove & discard patch within 12 hours or as directed by MD. 30 patch 09/06/20 25 Active losartan (Cozaar) 25 MG tablet Take 1 tablet by mouth daily. 30 tablet 09/06/20 25 Active nystatin (Mycostatin) 756100 UNIT/GM powder Apply to groin twice a day. Keep area dry. 60 g 09/06/20 25 Active naloxone (Narcan) 4 mg/0.1 mL nasal spray 1. Give 1 spray in nostril for no/slow breathing or cannot wake after opioid use 2. Call 911 3. Repeat in other nostril if symptoms continue Call 911. Give 4 mg (1 spray) into one nostril. Repeat every 2-3 minutes as needed, alternating nostrils, until medical assistance arrives. 1 each 09/06/20 25 2025 Active buprenorphine-n aloxone (Suboxone) 8-[address] 2 tablets under the tongue daily for 12 days. 24 tablet 09/06/20 25 2024 Active warfarin (Coumadin) 5 MG tablet Take 1 tablet by mouth once daily, except take 1 and 1/2 tablet (7.5mg) on Thursday, Thursday, and Thursday09/29/20 24 2024 Discontinued megestrol (Megace) 40 MG/ML suspension Take 5 mL by mouth 2 times a day. Shake well just before you measure a dose. Measure with a special dose-measuring spoon or medicine cup, not with a regular table spoon. If you do not have a dose-measuring device, ask your pharmacist for one. 300 mL 2 06/07/20 25 2024 Discontinued(S top Taking at Discharge) furosemide (Lasix) 40 MG tablet Take 1 tablet by mouth daily. 30 tablet 2 07/14/20 25 2024 Discontinued(S top Taking at Discharge) naloxone (Narcan) 4 mg/0.1 mL nasal spray 1. Give 1 spray in nostril for no/slow breathing or cannot wake after opioid use 2. Call 911 3. Repeat in other nostril if symptoms continue Call 911. Give 4 mg (1 spray) into one nostril. Repeat every 2-3 minutes as needed, alternating nostrils, until medical assistance arrives. 1 each 11 08/21/20 25 2024 Discontinued Active Problems Problem Noted Date Diagnosed Date Obstructive sleep apnea 08/22/2025 Assessment & Plan (08/31/2025 8:00 AM EDT): - Patient continues to use supplemental oxygen, concurrent with home O2. PLAN - No changes to current regimen Assessment & Plan (08/30/2025 12:05 PM EDT): - Patient continues to use supplemental oxygen, concurrent with home O2. PLAN - No changes to current regimen Assessment & Plan (08/29/2025 12:04 PM EDT): - History of 2 L NC use at baseline at night and untreated BRI. - Patient continues to saturate appropriately from 95-100 on 1-2 L NC. Patient now requests to not wear oxygen during the day. PLAN: - Continue supplemental O2 to maintain SpO2 >/= 92% - Continue duonebs q6h PRN and scheduled flonase - Continue Anoro Assessment & Plan (08/28/2025 12:59 PM EDT): - History of 2 L NC use at baseline at night and untreated BRI. - Patient continues to saturate appropriately from 95-100 on 1-2 L NC. PLAN: - Continue supplemental O2 to maintain SpO2 >/= 92% - Continue duonebs q6h PRN and scheduled flonase - Continue Anoro Assessment & Plan (08/27/2025 6:17 PM EDT): - History of 2 L NC use at baseline at night and untreated BRI. - Patient continues to saturate appropriately from 97-100 on 1-2 L NC. - Upon chart review, patient last had spirometry performed in 2020 which was suggestive of possible restrictive process. No recent spirometry. Patient has previously been diagnosed with COPD and treated as such. PLAN: - Continue supplemental O2 to maintain SpO2 >/= 92% - Continue duonebs q6h PRN and scheduled flonase - Continue Anoro Assessment & Plan (08/26/2025 12:21 PM EDT): - History of 2 L NC use at baseline at night and untreated BRI. - Patient continues to saturate appropriately from 97-100 on 1-2 L NC. - Upon chart review, patient last had spirometry performed in 2020 which was suggestive of possible restrictive process. No recent spirometry. Patient has previously been diagnosed with COPD and treated as such. PLAN - Continue supplemental O2 to maintain SpO2 >/= 92% - Continue duonebs q6h PRN and scheduled flonase - Continue Anoro Assessment & Plan (08/25/2025 1:17 PM EDT): - History of 2 L NC use at baseline at night and untreated BRI. - Patient continues to saturate appropriately from 95-100 on 1-2 L NC. - Upon chart review, patient last had spirometry performed in 2020 which was suggestive of possible restrictive process. No recent spirometry. Patient has previously been diagnosed with COPD and treated as such. - Some minor R-sided wheezing heard. PLAN - PRN duoneb given this morning after patient stated they felt their breathing was shallow. Most likely anxiety component is related. - Continue supplemental O2 to maintain SpO2 >/= 92% - Continue duonebs q6h PRN and scheduled flonase - Continue Anoro Assessment & Plan (08/24/2025 11:26 AM EDT): - History of 2 L NC use at baseline at night and untreated BRI. - Patient continues to saturate appropriately from 95-100. She is back on nasal cannula. Was temporarily placed on venturi mask yesterday. PLAN - Continue supplemental O2 to maintain SpO2 >/= 92% - Continue duonebs q6h PRN and scheduled flonase - Continue Anoro Assessment & Plan (08/23/2025 12:08 PM EDT): - History of 2 L NC use at baseline at night and untreated BRI. - Patient continues to saturate appropriately from 92-96. One desaturation event noted around 1100 today on 08/23 in which Venturi max was initiated. No concern for acute decompensation, pulmonary embolus, or need for other escalation of care. Considering possible etiology of multiple sedating meds administered together. PLAN - Continue supplemental O2 to maintain SpO2 >/= 92% - Continue duonebs q6h PRN and scheduled flonase - Continue Anoro Assessment & Plan (08/22/2025 11:28 AM EDT): - History of 2 L NC use at baseline at nightstand untreated BRI. PLAN - Continue supplemental O2 to maintain SpO2 >/= 92% - Continue duonebs q6h PRN and scheduled flonase - Continue Anoro Impaired mobility 08/22/2025 Assessment & Plan (09/05/2025 11:12 AM EDT): - Patient continues to work with PT/OT PLAN - Care conference today to confirm that at-home caregivers, daughter, is understanding of the demands that Ms. Weiss will need. Assessment & Plan (09/04/2025 5:20 PM EDT): - Patient continues to improve, however will likely need supplies going home. PLAN - A bedside commode is required for home use as the patient has limited mobility and is confined to a specific level or room in their home that prevents safe or prompt use of a regular toilet. A bedside commode for home use as being ordered for discharge. - The patient has limited mobility which is affecting their ability to perform ADLs (activities of daily living). The use of a walker or cane alone is not sufficient. The patient is willing to use a wheelchair to complete ADLs within the home. The patient can self propel the wheelchair or has a caregiver assist with a wheelchair. - The patient will require a hospital bed for home use. Patient has a condition that requires positioning of the body in ways not feasible with a regular bed. Patient also requires frequent repositioning, which would not be sufficient with an ordinary bed. The patient has a caregiver to assist within the home. Assessment & Plan (09/03/2025 12:45 PM EDT): - Patient's endurance continues to improve. PLAN - Removed hart catheter today. Encouraged to use bedside commode. - Continue to encourage patient to work with nursing and PT/OT for strengthening and endurance. Assessment & Plan (09/02/2025 3:08 PM EDT): - Patient has been having improvements per physical therapy reports. PLAN: - Encouraged patient to continue to work with physical therapy and to try to sit in her chair for the full amount of time. Assessment & Plan (09/01/2025 2:47 PM EDT): PLAN - Encouraging patient to work on mobility of bilateral arms and legs daily Assessment & Plan (08/31/2025 10:17 AM EDT): PLAN - Continue to encourage patient to work with PT/OT. Assessment & Plan (08/30/2025 12:05 PM EDT): - Patient worked with PT/OT to get to bedside commode yesterday. PLAN - Continue to encourage patient to work with PT/OT. Assessment & Plan (08/29/2025 12:04 PM EDT): - Patient is able to move bilateral hands and move cup to mouth to drink. PLAN: - Continue regular diet - PT/OT following: Current recommendation is LTACH. Patient has expressed that she plans to discharge to home with help from family; however, patient's rehabilitation would be much more prolonged and there would be increased risk of readmission due to decreased mobility and increased needs. Assessment & Plan (08/28/2025 12:59 PM EDT): - Patient is able to move bilateral hands and move cup to mouth to drink. - PT/OT following PLAN: - Considering bedside commode if patient is able to support herself any with her legs. - Continue regular diet - Plan for LTACH on discharge per PT/OT recommendations. Social work to arrange. Assessment & Plan (08/27/2025 6:17 PM EDT): - Able to lift water cup on her own today and take a drink then able to sit back on table. Still requiring aide's help to eat. - PT/OT following PLAN: - Continue regular diet - Plan for LTACH on discharge per PT/OT recommendations. Social work to arrange. Assessment & Plan (08/26/2025 7:20 AM EDT): - PT/OT following, appreciate recommendations: New recommendation is LTACH Assessment & Plan (08/25/2025 1:17 PM EDT): - PT/OT following, appreciate recommendations: New recommendation is LTACH Assessment & Plan (08/24/2025 8:20 AM EDT): - PT/OT following, appreciate recommendations Assessment & Plan (08/23/2025 7:41 AM EDT): - PT/OT following, appreciate recommendations Assessment & Plan (08/22/2025 8:39 AM EDT): - PT/OT following, appreciate recommendations Anemia of chronic disease 08/22/2025 Assessment & Plan (08/29/2025 12:04 PM EDT): - Hgb stable at 8.2 from 7.9 (08/28) PLAN: - Monitoring with CBC - Transfuse for hgb < 7 Assessment & Plan (08/28/2025 12:59 PM EDT): - Hgb stable at 7.9 from 7.9 (08/27). PLAN: - Monitoring with CBC - Transfuse for hgb < 7 Assessment & Plan (08/27/2025 6:17 PM EDT): - Hemoglobin stable at 7.9, slightly down from 8.1 previous day. PLAN: - Monitoring with CBC - Transfuse for hgb < 7 Assessment & Plan (08/26/2025 12:21 PM EDT): - Hgb stable 8.1 from 8.4 (08/25) PLAN - Monitoring with CBC - Transfuse for hgb < 7 Assessment & Plan (08/25/2025 1:17 PM EDT): - Transfused 1 unit pRBCs on 08/20 - Hgb stable 8.4 from 8.6 (08/24) PLAN - Monitoring with CBC - Transfuse for hgb < 7 Assessment & Plan (08/24/2025 8:20 AM EDT): - Transfused 1 unit pRBCs on 08/20 - Hgb 9.0 from 8.3 (08/22). PLAN - Monitoring with CBC - Transfuse for hgb < 7 Assessment & Plan (08/23/2025 7:41 AM EDT): - Transfused 1 unit pRBCs on 08/20 - Hgb 9.0 from 8.3 (08/22). PLAN - Monitoring with CBC - Transfuse for hgb < 7 Assessment & Plan (08/22/2025 8:39 AM EDT): - Transfused 1 unit pRBCs on 08/20 - Hgb 8.3 from 8.6 (08/21) PLAN - Monitoring with CBC - Transfuse for hgb < 7 Thrombocytosis 08/22/2025 Assessment & Plan (08/29/2025 12:04 PM EDT): - Hgb stable at 8.2 from 7.9 (08/28) PLAN: - Monitoring with CBC - Transfuse for hgb < 7 Assessment & Plan (08/28/2025 12:59 PM EDT): - Hgb stable at 7.9 from 7.9 (08/27). PLAN: - Monitoring with CBC - Transfuse for hgb < 7 Assessment & Plan (08/27/2025 6:17 PM EDT): - Hemoglobin stable at 7.9, slightly down from 8.1 previous day. PLAN: - Monitoring with CBC - Transfuse for hgb < 7 Assessment & Plan (08/26/2025 12:21 PM EDT): - Hgb stable 8.1 from 8.4 (08/25) PLAN - Monitoring with CBC - Transfuse for hgb < 7 Assessment & Plan (08/25/2025 1:17 PM EDT): - Transfused 1 unit pRBCs on 08/20 - Hgb stable 8.4 from 8.6 (08/24) PLAN - Monitoring with CBC - Transfuse for hgb < 7 Assessment & Plan (08/24/2025 8:20 AM EDT): - Transfused 1 unit pRBCs on 08/20 - Hgb 9.0 from 8.3 (08/22). PLAN - Monitoring with CBC - Transfuse for hgb < 7 Assessment & Plan (08/23/2025 7:41 AM EDT): - Transfused 1 unit pRBCs on 08/20 - Hgb 9.0 from 8.3 (08/22). PLAN - Monitoring with CBC - Transfuse for hgb < 7 Assessment & Plan (08/22/2025 8:39 AM EDT): - Transfused 1 unit pRBCs on 08/20 - Hgb 8.3 from 8.6 (08/21) PLAN - Monitoring with CBC - Transfuse for hgb < 7 Elevated LFTs 08/09/2025 Assessment & Plan (08/29/2025 12:04 PM EDT): - ALT stable at 48 from 53 (08/28) PLAN: - No further specific interventions warranted. - Can continue to check CMP while inpatient. Assessment & Plan (08/28/2025 12:59 PM EDT): - AST stable at 27 from 28 (08/27) - ALT stable at 53 from 52 (08/27) PLAN: - No further specific interventions warranted. - Can continue to check CMP while inpatient. Assessment & Plan (08/27/2025 6:17 PM EDT): - AST stable at 28, ALT downtrending to 52 now. PLAN: - Check morning CMP Assessment & Plan (08/26/2025 12:21 PM EDT): -LFTs has mostly returned to normal limits. AST continues to remain slightly elevated. - Check morning CMP Assessment & Plan (08/25/2025 1:17 PM EDT): - LFTs have improved to almost normal limits. ALT continues to be slightly elevated. PLAN - Check morning CMP Assessment & Plan (08/24/2025 11:26 AM EDT): - Continues to improve. ALT improved to 71 from 91 (08/23) and AST 37 from 43 (08/23). PLAN - Daily CMP Assessment & Plan (08/23/2025 7:41 AM EDT): - Continued to decrease over the last few days. ALT improved to 91 from 112 (08/22) and AST 43 from 43 (08/22). PLAN - Daily CMP Assessment & Plan (08/22/2025 8:39 AM EDT): - Likely multifactorial etiology. Hepatology consulted back on 08/09 with low concern for autoimmune hepatitis. - Has continued to improve with decreased CK. PLAN - Daily CMP Assessment & Plan (08/09/2025 1:48 PM EDT): Elevated in the setting of rhabdomyolysis AST > ALT Bili WNL, INR 1.2, ALP 86 Labs suggestive of LFT elevation being secondary to rhabdo however liver injury not excluded Ferritin 506 Hepatitis panel negative CTAP: Concern for abdominal fluid with increased density, blood vs contrast material - Differential: Liver injury secondary to rhabdomyolysis, autoimmune etiology, myositis PLAN Trend AST/ALT; CK Daily INR, Bili Consulted Hepatology F/u RUQ US F/u US abdomen doppler F/u aldolase, alpha 1 antitrypsin, BINH w/ Hep-2 substrate, ceruloplasmin, CMV, EBV, Ferritin, HIV, IG profile, iron, neuronal nuclear antibodies, peripheral blood smear, tissue transglutaminase Status post mechanical aortic valve replacement 08/09/2025 Overview (08/09/2025): 05/2021 Assessment & Plan (09/05/2025 11:12 AM EDT): - INR today is 2.7 from 2.6 (09/04) PLAN - Pharmacy dosing - Planning on discharge with Warfarin 2.5 mg daily Assessment & Plan (09/04/2025 5:20 PM EDT): - INR today is 2.6 from 2.5. PLAN - Pharmacy continues to dose. Assessment & Plan (09/03/2025 12:45 PM EDT): - INR 2.5 from 3.4. PLAN - Pharmacy to continue to dose. Assessment & Plan (09/02/2025 3:08 PM EDT): - INR went from 3.1-3.4 PLAN: - Pharmacy to continue to dose. Assessment & Plan (09/01/2025 2:47 PM EDT): - INR today is 3.1 from 2.5 PLAN - Pharmacy to continue dosing Assessment & Plan (08/31/2025 10:17 AM EDT): - Most recent INR was 2.5 from 2.5 (08/30) - Previously on enoxaparin while INR has been subtherapeutic PLAN - D/c enoxaparin. Continue warfarin. Assessment & Plan (08/30/2025 12:05 PM EDT): - Most recent INR was 2.5 from 2.3 (08/29) - Currently on enoxaparin while INR has been subtherapeutic PLAN - Planning for one additional day of enoxaparin due to stability of INR. Planning for d/c enoxaparin tomorrow. Assessment & Plan (08/29/2025 12:04 PM EDT): - INR 2.3 from 1.9 (08/28). PLAN: - Pharmacy to continue to dose warfarin Assessment & Plan (08/28/2025 12:59 PM EDT): - INR 1.9 from 1.5 (08/27). INR could be elevated due to interaction between fluoconazole and warfarin. PLAN: - Planning to discuss with patient about changing fluoconazole to nystatin to remove the interaction between fluconazole and warfarin. - Pharmacy to continue to dose warfarin Assessment & Plan (08/27/2025 6:17 PM EDT): - INR stable at 1.5 after reinitiating warfarin on 08/23. PLAN: - Pharmacy to continue to dose warfarin Assessment & Plan (08/26/2025 7:20 AM EDT): - Reintroduced warfarin on 08/23. - Most recent INR was 1.5 PLAN - Pharmacy to continue to dose warfarin Assessment & Plan (08/25/2025 8:02 AM EDT): - Reintroduced warfarin on 08/23. - Most recent INR was 1.2 PLAN - Pharmacy to continue to dose warfarin Assessment & Plan (08/24/2025 11:26 AM EDT): - Reintroduced warfarin on 08/23. - Most recent INR was 1.2 PLAN - Pharmacy to continue to dose warfarin Assessment & Plan (08/09/2025 1:48 PM EDT): Requires therapeutic anticoagulation; was on warfarin INR subtherapeutic at 1.2 Concern for abdominal fluid with increased density, blood vs contrast material PLAN Holding Warfarin at present Continue Lovenox 60mg q12 Chronic atrial fibrillation 08/09/2025 Assessment & Plan (08/29/2025 7:20 AM EDT): - Continue Metoprolol succinate XL 25 mg Assessment & Plan (08/28/2025 7:38 AM EDT): - Continue Metoprolol succinate XL 25 mg Assessment & Plan (08/27/2025 2:41 PM EDT): - Continue Metoprolol succinate XL 25 mg Assessment & Plan (08/26/2025 7:20 AM EDT): - Continue Metoprolol succinate XL 25 mg Assessment & Plan (08/25/2025 1:17 PM EDT): - Continue Metoprolol succinate XL 25 mg Assessment & Plan (08/24/2025 8:20 AM EDT): - Home regimen of metoprolol succinate XL 25 mg PLAN - Continue Metoprolol succinate XL 25 mg Assessment & Plan (08/23/2025 7:41 AM EDT): - Home regimen of metoprolol succinate XL 25 mg PLAN - Continue Metoprolol succinate XL 25 mg Assessment & Plan (08/22/2025 11:28 AM EDT): - Home regimen of metoprolol succinate XL 25 mg PLAN - Metoprolol succinate XL 25 mg added back on today Assessment & Plan (08/09/2025 1:48 PM EDT): Rate controlled at present On Metoprolol 25 mg PLAN Continue Metoprolol 25 mg daily if HR/BP Stable Continue telemetry Opioid use disorder in remission 08/09/2025 Assessment & Plan (09/05/2025 11:12 AM EDT): PLAN - Continuing suboxone 4 mg QID Assessment & Plan (09/04/2025 5:20 PM EDT): - Patient is s/p micro induction. Is tolerating well. PLAN - Transition to Suboxone 4 mg, 4 times daily for a total of 16 mg. Assessment & Plan (09/03/2025 12:45 PM EDT): - Patient has adequately tolerated microinduction to home dose equivalent of buprenorphine 8 mg BID. PLAN - Current 16 mg dose is split over 4 different times to provide consistent pain control benefit. Assessment & Plan (09/02/2025 3:08 PM EDT): - Patient is scheduled to finish her microinduction today Patient's vitals have remained stable. Discussed altering the doses of buprenorphine and when they are administered to help give her better pain control. Patient received 1 dose her buprenorphine 8 mg today. Patient okay with this change today. PLAN: - Plan to give buprenorphine 4 mg two more times today. - Plan to start buprenorphine 4 mg four times daily tomorrow for a total of 16 mg daily. Assessment & Plan (09/01/2025 2:47 PM EDT): - Patient feels like microinduction has been going fine. - Vitals continue to be stable overall. PLAN - Continuing microinduction under [facility] guidance Assessment & Plan (08/31/2025 10:17 AM EDT): - Patient continues to tolerate microinduction of Suboxone. - Patient's OUD was controlled outpatient with 16 mg SL buprenorphine which is approximately 480 OMEs. Patient's current oxycodone regimen is around 90 OMEs. PLAN - Discussed with [facility] about pain control while continuing microinduction. Will continue the microinduction of suboxone and will begin supplementing PRN dilaudid prior to working with PT/OT. Assessment & Plan (08/30/2025 12:05 PM EDT): - Patient continues to tolerate microinduction PLAN - Plan to discuss with [facility] about possibly stopping microinduction due to expected need for opiates in rehabilitation for recovering rhabdomyolysis. Assessment & Plan (08/29/2025 12:04 PM EDT): - On suboxone prior to hospitalization. - Patient has tolerated microinduction so far. PLAN: - Continue microinduction of suboxone. Expected to take 4-5 days until therapeutic. Assessment & Plan (08/28/2025 12:59 PM EDT): - On suboxone prior to hospitalization. - Patient would like to start Suboxone micro induction around 5 days prior to discharge. PLAN: - Starting microinduction of suboxone today. Expected to take 4-5 days until therapeutic. Will plan to begin weaning oxycodone tomorrow. Assessment & Plan (08/27/2025 6:17 PM EDT): - On suboxone prior to hospitalization. - Patient would like to start Suboxone micro induction around 5 days prior to discharge. PLAN: - Planning for micro induction prior to discharge. Continuing to gain clarity on discharge timeline. Assessment & Plan (08/26/2025 12:21 PM EDT): - On suboxone prior to hospitalization - Patient would like to start Suboxone micro induction around 5 days prior to discharge. PLAN - Planning for macro induction prior to discharge. Continuing to gain clarity on discharge timeline. Assessment & Plan (08/25/2025 1:17 PM EDT): - On suboxone prior to hospitalization PLAN - Clarify with patient about timeline to restart buprenorphine/naltrexone. It is expected that we are moving closer to discharge with overall improvement in clinical status. Assessment & Plan (08/24/2025 8:20 AM EDT): - On suboxone prior to hospitalization PLAN - Addiction medicine has provided recommendations on 08/18 for buprenorphine/naloxone microinduction. Microinduction is pending patient desire. Microinduction will take 3.5 days after initiation. Considering when to start based on expected patient discharge. Assessment & Plan (08/23/2025 7:41 AM EDT): - On suboxone prior to hospitalization PLAN - Addiction medicine has provided recommendations on 08/18 for buprenorphine/naloxone microinduction. Microinduction is pending patient desire. Microinduction will take 3.5 days after initiation. Considering when to start based on expected patient discharge. Assessment & Plan (08/22/2025 11:28 AM EDT): - On suboxone prior to hospitalization PLAN - Addiction medicine has provided recommendations on 08/18 for buprenorphine/naloxone microinduction. Microinduction is pending patient desire. Assessment & Plan (08/09/2025 1:48 PM EDT): Suboxone discontinued in outside hospital in last days Has been compliant on Suboxone 8-2 BID Did receive pain medication in ED at 0030 and 0300 PLAN Hold suboxone at present Vitamin D deficiency 07/25/2024 Nonrheumatic aortic insufficiency with aortic st enosis 11/11/2022 Anxiety disorder, unspecified 06/25/2021 Assessment & Plan (08/30/2025 12:05 PM EDT): - Anxiety is better controlled with resolution of rhabdomyolysis PLAN - No changes to current regimen Assessment & Plan (08/29/2025 7:20 AM EDT): - Patient takes Klonopin TID PRN and hydroxyzine q6hr PRN. PLAN: - [employer] following - Continue home Klonopin TID PRN - Continue hydroxyzine 25 mg q6h PRN Assessment & Plan (08/28/2025 7:38 AM EDT): - Patient takes Klonopin TID PRN and hydroxyzine q6hr PRN. PLAN: - [employer] following - Continue home Klonopin TID PRN - Continue hydroxyzine 25 mg q6h PRN Assessment & Plan (08/27/2025 6:17 PM EDT): - Patient takes Klonopin TID PRN and hydroxyzine q6hr PRN. PLAN: - [employer] following - Continue home Klonopin TID PRN - Continue hydroxyzine 25 mg q6h PRN Assessment & Plan (08/26/2025 7:20 AM EDT): - Patient takes Klonopin TID for anxiety. - Patient denies consideration of cymbalta. Has previously denied discussion regarding SSRIs. PLAN - [employer] following - Continue home Klonopin TID PRN - Continue hydroxyzine 25 mg q6h PRN Assessment & Plan (08/25/2025 1:17 PM EDT): - Patient takes Klonopin TID for anxiety. - Patient denies consideration of cymbalta. Has previously denied discussion regarding SSRIs. PLAN - [employer] following - Continue home Klonopin TID PRN - Continue hydroxyzine 25 mg q6h PRN Assessment & Plan (08/24/2025 11:26 AM EDT): - Patient takes Klonopin TID for anxiety. - Patient denies consideration of cymbalta. Has previously denied discussion regarding SSRIs. - [employer] services saw Ms. Weiss yesterday and she states that she was extremely thankful for their visit. PLAN - [employer] following - Continue home Klonopin TID PRN - Continue hydroxyzine 25 mg q6h PRN Assessment & Plan (08/23/2025 12:08 PM EDT): - Patient takes Klonopin TID for anxiety. - Patient denies consideration of cymbalta. She denies wanting to discuss SSRI options today. PLAN - Consulted claims service adjustor services for support - Continue home Klonopin TID PRN - Continue hydroxyzine 25 mg q6h PRN Assessment & Plan (08/22/2025 11:28 AM EDT): - Upon chart review has previously trialed some SSRIs. She was previously prescribed duloxetine but in previous note patient did not know of the medication. Unsure whether she ever tried it or not. - Patient takes Klonopin TID for anxiety. PLAN - Plan to discuss with patient about starting duloxetine for anxiety and for chronic pain component. - Ordering hydroxyzine 25 mg q6h PRN Allergic rhinitis 02/18/2021 Chronic bilateral low back pain without sciatica 01/04/2021 Essential hypertension 01/04/2021 Assessment & Plan (08/31/2025 10:17 AM EDT): - One HTN reading overnight to 150/84 PLAN: No changes to current regimen Assessment & Plan (08/30/2025 12:05 PM EDT): - One HTN reading overnight to 160/97 PLAN: No changes to current regimen Assessment & Plan (08/29/2025 12:04 PM EDT): - Blood pressures overnight ranging from 129-179 systolic. Blood pressure has equilibrated after additional losartan yesterday for total of 50 mg. PLAN: - Continue losartan to 50 mg - Continue metoprolol 25 mg Assessment & Plan (08/28/2025 12:59 PM EDT): - Blood pressures overnight ranging from 138-186 systolic - BP continues to remain elevated with better pain control PLAN: - Increased losartan to 50 mg - Continue metoprolol 25 mg Assessment & Plan (08/27/2025 6:17 PM EDT): - Blood pressures overnight ranging from 113-170/67-102. - Many of these elevated readings thought to be due to pain. PLAN: - Continue metoprolol 25 mg - Continue losartan 25 mg - Reevaluate if BP meds need to be adjusted tomorrow. Assessment & Plan (08/26/2025 12:21 PM EDT): - Blood pressure was much more controlled overnight with systolic average in 120's. - Most recent BP was 148/86 PLAN - Continue metoprolol 25 mg - Continue losartan 25 mg Assessment & Plan (08/25/2025 1:17 PM EDT): - Blood pressure was much more controlled overnight with systolic average in 120's. - Most recent BP was 140/82. PLAN - Continue metoprolol 25 mg - Continue losartan 25 mg - No plans to repeat Lasix today due to decreased leg swelling and improvement in blood pressure. Assessment & Plan (08/24/2025 11:26 AM EDT): - BP has continued to improve and be more stable after introducing metoprolol on 08/22 and losartan on 08/23. Most recent BP was 144/79. - PO Lasix 40 mg given on 08/23 PLAN - Continue metoprolol 25 mg - Continue losartan 25 mg - Repeat one-time dose of PO Lasix 40 mg Assessment & Plan (08/23/2025 12:08 PM EDT): - Patient has continued to remain hypertensive since returning from MICU - Metoprolol 25 mg was reintroduced on 08/22 PLAN - Continue metoprolol 25 mg - Started losartan 25 mg - One time dose of Lasix 40 mg PO given to see if that improves lower extremity swelling Assessment & Plan (08/09/2025 1:48 PM EDT): Home regimen Lisinopril 5 mg, metoprolol 25 mg, furosemide 40 mg, clonidine prn PLAN Hold lisinopril in s/o rhabdo Hold lasix at present, Continue metoprolol 25mg Clonidine PRN for severe HTN VS q4h COPD (chronic obstructive pulmonary disease) Assessment & Plan (08/31/2025 8:00 AM EDT): - Patient continues to use supplemental oxygen, concurrent with home O2. PLAN - No changes to current regimen Assessment & Plan (08/30/2025 12:05 PM EDT): - Patient continues to use supplemental oxygen, concurrent with home O2. PLAN - No changes to current regimen Assessment & Plan (08/29/2025 12:04 PM EDT): - History of 2 L NC use at baseline at night and untreated BRI. - Patient continues to saturate appropriately from 95-100 on 1-2 L NC. Patient now requests to not wear oxygen during the day. PLAN: - Continue supplemental O2 to maintain SpO2 >/= 92% - Continue duonebs q6h PRN and scheduled flonase - Continue Anoro Assessment & Plan (08/28/2025 12:59 PM EDT): - History of 2 L NC use at baseline at night and untreated BRI. - Patient continues to saturate appropriately from 95-100 on 1-2 L NC. PLAN: - Continue supplemental O2 to maintain SpO2 >/= 92% - Continue duonebs q6h PRN and scheduled flonase - Continue Anoro Assessment & Plan (08/27/2025 6:17 PM EDT): - History of 2 L NC use at baseline at night and untreated BRI. - Patient continues to saturate appropriately from 97-100 on 1-2 L NC. - Upon chart review, patient last had spirometry performed in 2020 which was suggestive of possible restrictive process. No recent spirometry. Patient has previously been diagnosed with COPD and treated as such. PLAN: - Continue supplemental O2 to maintain SpO2 >/= 92% - Continue duonebs q6h PRN and scheduled flonase - Continue Anoro Assessment & Plan (08/26/2025 12:21 PM EDT): - History of 2 L NC use at baseline at night and untreated BRI. - Patient continues to saturate appropriately from 97-100 on 1-2 L NC. - Upon chart review, patient last had spirometry performed in 2020 which was suggestive of possible restrictive process. No recent spirometry. Patient has previously been diagnosed with COPD and treated as such. PLAN - Continue supplemental O2 to maintain SpO2 >/= 92% - Continue duonebs q6h PRN and scheduled flonase - Continue Anoro Assessment & Plan (08/25/2025 1:17 PM EDT): - History of 2 L NC use at baseline at night and untreated BRI. - Patient continues to saturate appropriately from 95-100 on 1-2 L NC. - Upon chart review, patient last had spirometry performed in 2020 which was suggestive of possible restrictive process. No recent spirometry. Patient has previously been diagnosed with COPD and treated as such. - Some minor R-sided wheezing heard. PLAN - PRN duoneb given this morning after patient stated they felt their breathing was shallow. Most likely anxiety component is related. - Continue supplemental O2 to maintain SpO2 >/= 92% - Continue duonebs q6h PRN and scheduled flonase - Continue Anoro Assessment & Plan (08/24/2025 11:26 AM EDT): - History of 2 L NC use at baseline at night and untreated BRI. - Patient continues to saturate appropriately from 95-100. She is back on nasal cannula. Was temporarily placed on venturi mask yesterday. PLAN - Continue supplemental O2 to maintain SpO2 >/= 92% - Continue duonebs q6h PRN and scheduled flonase - Continue Anoro Assessment & Plan (08/23/2025 12:08 PM EDT): - History of 2 L NC use at baseline at night and untreated BRI. - Patient continues to saturate appropriately from 92-96. One desaturation event noted around 1100 today on 08/23 in which Venturi max was initiated. No concern for acute decompensation, pulmonary embolus, or need for other escalation of care. Considering possible etiology of multiple sedating meds administered together. PLAN - Continue supplemental O2 to maintain SpO2 >/= 92% - Continue duonebs q6h PRN and scheduled flonase - Continue Anoro Assessment & Plan (08/22/2025 11:28 AM EDT): - History of 2 L NC use at baseline at nightstand untreated BRI. PLAN - Continue supplemental O2 to maintain SpO2 >/= 92% - Continue duonebs q6h PRN and scheduled flonase - Continue Anoro Assessment & Plan (08/09/2025 1:48 PM EDT): Stable on home therapy PLAN Continue Albuterol prn; flonase scheduled Continue home inhaler as hospital Equivalent - Anoro 1 puff daily Mixed hyperlipidemia 11/16/2020 Osteopenia 11/16/2020 Migraines 11/16/2020 C7 cervical fracture 09/28/2020 Resolved Problems Problem Noted Date Diagnosed Date Resolved Date Oral candidiasis 08/26/2025 09/06/2025 Assessment & Plan (09/01/2025 2:47 PM EDT): PLAN - Patient finishes 7 day course of fluconazole today. Assessment & Plan (08/31/2025 10:17 AM EDT): PLAN - Continuing treatment with fluconazole through 09/02 in which we will reevaluate if more therapy is indicated. Assessment & Plan (08/30/2025 12:05 PM EDT): - Patient notes decreased throat pain after starting fluconazole - INR is not therapeutic at 2.5 PLAN No changes to current regimen Assessment & Plan (08/29/2025 12:04 PM EDT): - Patient currently taking fluconazole daily. - Upon discussion with team pharmacist, fluconazole can cause INR to be supratherapeutic while taking Warfarin. - Discussed with patient how fluconazole interacts with warfarin. Patient denies wanting to switch to Nystatin. PLAN: - Continue to discuss possibility of switching fluconazole - Continue on fluconazole 100 mg daily with scheduled end date of 09/02/2025 upon which further treatment could be necessary. Assessment & Plan (08/28/2025 12:59 PM EDT): - Patient currently taking fluconazole daily. - Upon discussion with team pharmacist, fluconazole can cause INR to be supratherapeutic while taking Warfarin. Patient has already received daily dose today. PLAN: - Will discuss with the patient about changing fluoconazole to nystatin due to the interaction between warfarin and fluconazole. Continue on fluconazole 100 mg daily with scheduled end date of 09/02/2025 Assessment & Plan (08/27/2025 6:17 PM EDT): - Patient currently taking fluconazole daily. PLAN: - Continue on fluconazole 100 mg daily with scheduled end date of 09/02/2025 Assessment & Plan (08/26/2025 3:12 PM EDT): - Patient notes throat irritation and pain with swallowing - On PE, cyndee is noted on tongue and posterior pharynx PLAN - Ordered fluconazole 200 mg tablet for today. Patient will have 6 more days of fluconazole 100 mg once daily. Acute on chronic hypoxic respiratory failure 09/06/2025 Assessment & Plan (08/31/2025 8:00 AM EDT): - Patient continues to use supplemental oxygen, concurrent with home O2. PLAN - No changes to current regimen Assessment & Plan (08/30/2025 12:05 PM EDT): - Patient continues to use supplemental oxygen, concurrent with home O2. PLAN - No changes to current regimen Assessment & Plan (08/29/2025 12:04 PM EDT): - History of 2 L NC use at baseline at night and untreated BRI. - Patient continues to saturate appropriately from 95-100 on 1-2 L NC. Patient now requests to not wear oxygen during the day. PLAN: - Continue supplemental O2 to maintain SpO2 >/= 92% - Continue duonebs q6h PRN and scheduled flonase - Continue Anoro Assessment & Plan (08/28/2025 12:59 PM EDT): - History of 2 L NC use at baseline at night and untreated BRI. - Patient continues to saturate appropriately from 95-100 on 1-2 L NC. PLAN: - Continue supplemental O2 to maintain SpO2 >/= 92% - Continue duonebs q6h PRN and scheduled flonase - Continue Anoro Assessment & Plan (08/27/2025 6:17 PM EDT): - History of 2 L NC use at baseline at night and untreated BRI. - Patient continues to saturate appropriately from 97-100 on 1-2 L NC. - Upon chart review, patient last had spirometry performed in 2020 which was suggestive of possible restrictive process. No recent spirometry. Patient has previously been diagnosed with COPD and treated as such. PLAN: - Continue supplemental O2 to maintain SpO2 >/= 92% - Continue duonebs q6h PRN and scheduled flonase - Continue Anoro Assessment & Plan (08/26/2025 12:21 PM EDT): - History of 2 L NC use at baseline at night and untreated BRI. - Patient continues to saturate appropriately from 97-100 on 1-2 L NC. - Upon chart review, patient last had spirometry performed in 2020 which was suggestive of possible restrictive process. No recent spirometry. Patient has previously been diagnosed with COPD and treated as such. PLAN - Continue supplemental O2 to maintain SpO2 >/= 92% - Continue duonebs q6h PRN and scheduled flonase - Continue Anoro Assessment & Plan (08/25/2025 1:17 PM EDT): - History of 2 L NC use at baseline at night and untreated BRI. - Patient continues to saturate appropriately from 95-100 on 1-2 L NC. - Upon chart review, patient last had spirometry performed in 2020 which was suggestive of possible restrictive process. No recent spirometry. Patient has previously been diagnosed with COPD and treated as such. - Some minor R-sided wheezing heard. PLAN - PRN duoneb given this morning after patient stated they felt their breathing was shallow. Most likely anxiety component is related. - Continue supplemental O2 to maintain SpO2 >/= 92% - Continue duonebs q6h PRN and scheduled flonase - Continue Anoro Assessment & Plan (08/24/2025 11:26 AM EDT): - History of 2 L NC use at baseline at night and untreated BRI. - Patient continues to saturate appropriately from 95-100. She is back on nasal cannula. Was temporarily placed on venturi mask yesterday. PLAN - Continue supplemental O2 to maintain SpO2 >/= 92% - Continue duonebs q6h PRN and scheduled flonase - Continue Anoro Assessment & Plan (08/23/2025 12:08 PM EDT): - History of 2 L NC use at baseline at night and untreated BRI. - Patient continues to saturate appropriately from 92-96. One desaturation event noted around 1100 today on 08/23 in which Venturi max was initiated. No concern for acute decompensation, pulmonary embolus, or need for other escalation of care. Considering possible etiology of multiple sedating meds administered together. PLAN - Continue supplemental O2 to maintain SpO2 >/= 92% - Continue duonebs q6h PRN and scheduled flonase - Continue Anoro Assessment & Plan (08/22/2025 11:28 AM EDT): - History of 2 L NC use at baseline at nightstand untreated BRI. PLAN - Continue supplemental O2 to maintain SpO2 >/= 92% - Continue duonebs q6h PRN and scheduled flonase - Continue Anoro Other dysphagia 08/22/2025 09/06/2025 Assessment & Plan (08/29/2025 12:04 PM EDT): - Patient is able to move bilateral hands and move cup to mouth to drink. PLAN: - Continue regular diet - PT/OT following: Current recommendation is LTACH. Patient has expressed that she plans to discharge to home with help from family; however, patient's rehabilitation would be much more prolonged and there would be increased risk of readmission due to decreased mobility and increased needs. Assessment & Plan (08/28/2025 12:59 PM EDT): - Patient is able to move bilateral hands and move cup to mouth to drink. - PT/OT following PLAN: - Considering bedside commode if patient is able to support herself any with her legs. - Continue regular diet - Plan for LTACH on discharge per PT/OT recommendations. Social work to arrange. Assessment & Plan (08/27/2025 6:17 PM EDT): - Able to lift water cup on her own today and take a drink then able to sit back on table. Still requiring aide's help to eat. - PT/OT following PLAN: - Continue regular diet - Plan for LTACH on discharge per PT/OT recommendations. Social work to arrange. Assessment & Plan (08/26/2025 12:21 PM EDT): - Mostly resolved, has been tolerating a regular diet. Still needing 1-1 assistance for feeding due to decreased ability of upper extremities. PLAN - Continue regular diet Assessment & Plan (08/25/2025 1:17 PM EDT): PLAN - PRE [employer]ESS OPERATOR reevaluated today. With patient agreed to go to full diet. Patient still requires a 1:1 assist with eating due to difficulty with hand strength. Assessment & Plan (08/24/2025 11:26 AM EDT): - Dobhoff tube was removed yesterday since she has been tolerating her diet appropriately - Patient has been continuing to eat soft and bite sized diet with 1:1 assistance PLAN - PRE PRESS OPERATOR following, appreciate recommendations Assessment & Plan (08/23/2025 12:08 PM EDT): - Repeat MBS on 08/22 demonstrated intermittent penetration and aspiration of thin liquids. Ordered soft and bite sized diet on 08/22 with 1:1 feeding assistance. - Tube feeds held PM 08/01. Dobhoff tube is still in place. - Patient has been tolerating soft and bite sized diet well. PLAN - PRE PRESS OPERATOR following, appreciate recommendations - Planning to remove dobhoff tube later in the day to make sure that breakfast and lunch were tolerated well. 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 Unlikely to be autoimmune cause; however, theres are few labs still pending. Current leading differential is Coxsackie virus mediated rhabdomyolysis based on results from biopsies. - Patient continues to see improvement in bilateral arm and leg function. LLE is the most bothersome and diminished function. PLAN: - Pending myositis antibody panel (SO), anti-smooth muscle antibody (IgG), and signal recognition particle (SRP) antibody (SO) panels - Continue on scheduled pain regimen as listed below. - Pain Regimen: - Scheduled: Oxycodone 10 mg q12h, Tylenol 650 mg q6h, gabapentin 400 mg TID - PRN: Methocarbamol 500 mg, Oxycodone 10 mg q6h - Planning for future reduction of oxycodone with starting microinduction of suboxone. - Rheumatology following, appreciate recommendations - Neurology following, appreciate recommendations Assessment & Plan (08/27/2025 6:18 PM EDT): - Etiology continues to be unclear. Considering possible Coxsackie virus mediated rhabdomyolysis based on results from biopsies. - Differential also includes seronegative necrotizing autoimmune myopathy, polymyositis/dermatomyositis, or paraneoplastic myositis w/ positive anti-Yo positivity. - Today, patient is able to move her arms independently much better than previous examinations. He is also able to move her legs better than previously, but is still having increased amounts of pain. PLAN: - Pending myositis antibody panel (SO), anti-smooth muscle antibody (IgG), and signal recognition particle (SRP) antibody (SO) panels - Continue on scheduled pain regimen as listed below. - Pain Regimen: - Scheduled: Oxycodone 10 mg q12h, Tylenol 650 mg q6h, gabapentin 400 mg TID - PRN: Methocarbamol 500 mg, Oxycodone 10 mg q6h - Rheumatology following, appreciate recommendations - Neurology following, appreciate recommendations (no new recs on 08/26/25) Assessment & Plan (08/26/2025 12:21 PM EDT): - Etiology continues to be unclear. Considering possible Coxsackie virus mediated rhabdomyolysis based on results from biopsies. - Patient continues to have increased function of bilateral upper extremities and increasing sensation of bilateral lower extremities. - Surgical skin and muscle biopsy resulted showing no signs of vasculitis, widespread degenerating and regenerating muscle, and features of true inflammatory myopathy was not viewed. PLAN - Pending myositis antibody panel (SO), anti-smooth muscle antibody (IgG), and signal recognition particle (SRP) antibody (SO) panels - Pain Regimen: - Scheduled: Oxycodone 10 mg q12h, Tylenol 650 mg q6h, gabapentin increased to 400 mg TID - PRN: Methocarbamol 500 mg, Oxycodone 10 mg q6h - Rheumatology following, appreciate recommendations - Neurology following, appreciate recommendations Assessment & Plan (08/25/2025 1:17 PM EDT): - Etiology continues to be unclear. - Now thought to be unlikely autoimmune cause because CK improved over time with fluids and without an immune suppressant or modulator. - Muscle biopsy, skin biopsy, and lumbar puncture performed on 08/21. PLAN - Awaiting biopsy results. - Reordered myositis antibody panel (SO), anti-smooth muscle antibody (IgG), and signal recognition particle (SRP) antibody (SO) panel for AM lab draw since lab could not complete the previous studies due to decreased sample quantity. - Pain Regimen: - Scheduled: Oxycodone 10 mg q12h, Tylenol 650 mg q6h, gabapentin 300 mg TID - PRN: Methocarbamol 500 mg, Oxycodone 10 mg q6h - Rheumatology following, appreciate recommendations - Neurology following, appreciate recommendations Assessment & Plan (08/24/2025 11:26 AM EDT): - Etiology unclear at this time, likely to be autoimmune cause - Multiple positive autoimmune markers including anti-smooth muscles, purkinje cell antibodies, and SSA-52 antibodies. - Muscle biopsy, skin biopsy, and lumbar puncture performed on 08/21. - Meningitis/encephalitis panel was negative. CSF fluid culture [id number]. PLAN - Contacted the lab who said that the biopsies that were collected on 08/21 would be expected to result around 3 days later. - Lab notified team that myositis antibody panel (SO), anti-smooth muscle antibody, IgG, and a signal recognition particle (SRP) antibody (SO) was cancelled due to not enough quantity of the sample. - Pain Regimen: - Scheduled: Tylenol 650 mg q6h and gabapentin increased to 300 mg TID - PRN: Methocarbamol 500 mg, Oxycodone 10 mg q4h - Rheumatology following, appreciate recommendations - Neurology following, appreciate recommendations Assessment & Plan (08/23/2025 12:08 PM EDT): - Etiology unclear at this time, likely to be autoimmune cause - Multiple positive autoimmune markers including anti-smooth muscles, purkinje cell antibodies, and SSA-52 antibodies. - Muscle biopsy, skin biopsy, and lumbar puncture performed on 08/21. - Meningitis/encephalitis panel was negative. CSF fluid culture NGD2. PLAN - Pain Regimen: - Scheduled: Tylenol 650 mg q6h and gabapentin increased to 200 mg TID - PRN: Methocarbamol 500 mg, Oxycodone 10 mg q4h - Rheumatology following, appreciate recommendations - Neurology following, appreciate recommendations - Following results of biopsies and lumbar puncture Assessment & Plan (08/22/2025 11:28 AM EDT): - Etiology unclear at this time, likely to be autoimmune cause - CK continues to downtrend - Multiple positive autoimmune markers including anti-smooth muscles, purkinje cell antibodies, and SSA-52 antibodies. - Muscle biopsy, skin biopsy, and lumbar puncture performed on 08/21. PLAN - Pain Regimen: - Scheduled: Tylenol 650 mg q6h, gabapentin 100 mg TID, and methocarbamol 500 mg q6h. - PRN: Oxycodone 10 mg q4h - Rheumatology following, appreciate recommendations - Neurology following, appreciate recommendations - Following results of biopsies and lumbar puncture - D/c further CK checks since value has down-trended over the last few days. Sepsis 08/22/2025 08/24/2025 Assessment & Plan (08/24/2025 11:26 AM EDT): - WBC stable at 10.83 from 11.70 (.) and absolute neutrophils 8.17 from 9.41 (08/23). - Blood culture on 08/17, (12/03) was positive for staph epi. Is likely a contaminant but was treated for due to lack of other source. - 5-day course of Zosyn ended 08/22 - 5-day course of Vancomycin ended 08/23 Assessment & Plan (08/23/2025 7:41 AM EDT): - WBC stable at 11.70 from 11.08 (08/22). Absolute neutrophils slightly increased to 9.41 from 8.93 (08/22). - Blood culture on 08/17, (12/03) was positive for staph epi. Is likely a contaminant but treatment was started due to lack of additional source. - 5-day course of Zosyn ended 08/22 PLAN - 5-day course of Vancomycin will end 08/23 - No plans for continued antibiotics at after courses finish. Assessment & Plan (08/22/2025 11:28 AM EDT): - WBC improved to 11.08 from 14.12 (08/21) - Blood culture on 08/17, (1) was positive for staph epi. Is likely a contaminant but treatment was started due to lack of additional source. - Midodrine was d/c on 08/21 due to HTN PLAN - 5-day course of Zosyn will end 08/22 - 5-day course of Vancomycin will end 08/23 - No plans for continued antibiotics at after courses finish. Leukocytosis 08/22/2025 08/24/2025 Assessment & Plan (08/24/2025 11:26 AM EDT): - WBC stable at 10.83 from 11.70 (.) and absolute neutrophils 8.17 from 9.41 (08/23). - Blood culture on 08/17, (12/03) was positive for staph epi. Is likely a contaminant but was treated for due to lack of other source. - 5-day course of Zosyn ended 08/22 - 5-day course of Vancomycin ended 08/23 Assessment & Plan (08/23/2025 7:41 AM EDT): - WBC stable at 11.70 from 11.08 (08/22). Absolute neutrophils slightly increased to 9.41 from 8.93 (08/22). - Blood culture on 08/17, (12/03) was positive for staph epi. Is likely a contaminant but treatment was started due to lack of additional source. - 5-day course of Zosyn ended 08/22 PLAN - 5-day course of Vancomycin will end 08/23 - No plans for continued antibiotics at after courses finish. Assessment & Plan (08/22/2025 11:28 AM EDT): - WBC improved to 11.08 from 14.12 (08/21) - Blood culture on 08/17, (12/03) was positive for staph epi. Is likely a contaminant but treatment was started due to lack of additional source. - Midodrine was d/c on 08/21 due to HTN PLAN - 5-day course of Zosyn will end 08/22 - 5-day course of Vancomycin will end 08/23 - No plans for continued antibiotics at after courses finish. Bacteremia due to Staphylococcus epidermidis 08/24/2025 Assessment & Plan (08/24/2025 11:26 AM EDT): - WBC stable at 10.83 from 11.70 (.) and absolute neutrophils 8.17 from 9.41 (08/23). - Blood culture on 08/17, (1/) was positive for staph epi. Is likely a contaminant but was treated for due to lack of other source. - 5-day course of Zosyn ended 08/22 - 5-day course of Vancomycin ended 08/23 Assessment & Plan (08/23/2025 7:41 AM EDT): - WBC stable at 11.70 from 11.08 (08/22). Absolute neutrophils slightly increased to 9.41 from 8.93 (08/22). - Blood culture on 08/17, (/) was positive for staph epi. Is likely a contaminant but treatment was started due to lack of additional source. - 5-day course of Zosyn ended 08/22 PLAN - 5-day course of Vancomycin will end 08/23 - No plans for continued antibiotics at after courses finish. Assessment & Plan (08/22/2025 11:28 AM EDT): - WBC improved to 11.08 from 14.12 (08/21) - Blood culture on 08/17, (1/) was positive for staph epi. Is likely a contaminant but treatment was started due to lack of additional source. - Midodrine was d/c on 08/21 due to HTN PLAN - 5-day course of Zosyn will end 08/22 - 5-day course of Vancomycin will end 08/23 - No plans for continued antibiotics at after courses finish. Rhabdomyolysis 08/09/2025 09/06/2025 Assessment & Plan (09/05/2025 11:12 AM EDT): - Patient describes most pain of LLE, which has been consistent for the past week or so. Patient continues to restrict use of the LLE due to pain, favoring it. - Current spacing of sedating medications has improved more continuous pain control and less chance of sedation. - PE: LLE appears similar today to previous with dependent edema above the bandaging of the lower leg. No erythema noted. No specific point tenderness. PLAN - Continuing suboxone 4 mg QID - Planning on family care conference today due to pending discharge home Assessment & Plan (09/04/2025 5:20 PM EDT): - Patient's pain continues to remain stable. Notes that she did sit up in her chair for approximately 2.5-3 hours yesterday but was in pain while doing this. PLAN - Encouraged patient to continue with PT/OT and to work with nursing to improve her overall function by getting on the bedside chair and bedside commode. - Discontinue Subutex - Start Suboxone 4 mg 4 times daily - Continue with spacing of sedating medications: Gabapentin, oxycodone, Klonopin, and Suboxone. Assessment & Plan (09/03/2025 12:45 PM EDT): - Patient states that her L leg continues to be the most bothersome pain-nj. She slept well overnight. - On PE LLE looks comparable to previous days. There continues to be some dependent edema of both legs that is superior to leg bandaging. PLAN - Encouraging patient to work with nursing staff and PT/OT for increased time out of the bed, in the bedside chair, and bedside commode. - Worked with pharmacy to optimize dosing times of gabapentin and buprenorphine to discourage over-sedation. Additionally, placed nursing communication that sedating medications including buprenorphine, oxycodone PRN, gabapentin, and Klonopin PRN should be given at least two hours apart from each other. Assessment & Plan (09/02/2025 3:08 PM EDT): - Patient states that she has increased pain in her bilateral legs this morning. Patient was reassured that doing PT and trying to improve her function by building back muscle mass will improve her overall pain over time. She was also encouraged to try and get to her chair for the full duration of scheduled time today. Discussion with patient was had to discontinue her Dilaudid given that she was not taking it only for her physical therapy sessions. PLAN: - Discontinue Dilaudid PRN and scheduled oxycodone - Continue on oxycodone PRN at this time - Continue gabapentin 800 mg TID - Continue acetaminophen 1000 mg TID - Continue methocarbamol 500 mg 4 times a day PRN Assessment & Plan (09/01/2025 3:18 PM EDT): - Patient has been experiencing worsening pain over the past few days. She asks if there can be any additional adjustments to her regimen. - Her mobility has continued to progress with working with physical therapy. PLAN - Increased gabapentin to 800 mg TID - Planning for d/c of scheduled oxycodone and PRN oxycodone tomorrow afternoon because patient will be at her max peak suboxone dose tomorrow. Can discuss with [facility] about the utility of continuing dilaudid 0.5 mg prior to PT. Assessment & Plan (08/31/2025 10:17 AM EDT): - Patient states that her pain has become more uncontrolled. She asked if there could be adjustments made to her pain medication regimen which could help her participate more in PT/OT. - Patient states that she plans to refuse PT help today unless they help her get to bedside commode only. PLAN: - Discussed with patient the importance of physical therapy and this acute phase of recovery from rhabdomyolysis. Patient's current debility inhibits the removal of Hart catheter. - Current Pain Regimen: - Scheduled: Oxycodone 10 mg q12h, Tylenol 650 mg q6h, continue gabapentin to 600 mg TID - PRN: Methocarbamol 500 mg, Oxycodone 10 mg to q6h - Adding PRN prior to physical therapy: Dilaudid 0.5 mg - Planning to discuss with family about patient's desire to return home upon discharge. - Neurology following, appreciate recommendations - Recommends outpatient EMG - Follow-up requested with [facility] Neurology Assessment & Plan (08/30/2025 12:05 PM EDT): - Ms. Weiss notes increased ability of hands. Some tingling of bilateral fingertips. - Rheumatology signed off due to decreased concern for autoimmune mediated rhabdomyolysis. - Patient spontaneously moves arms and hands. Can move bilateral legs at request. PLAN: - Continuing encouragement for patient to work with PT/OT including standing and transitioning to bedside commode. - Planning to discuss with family about patient's desire to return home upon discharge. - Current Pain Regimen: - Scheduled: Oxycodone 10 mg q12h, Tylenol 650 mg q6h, continue gabapentin to 600 mg TID - PRN: Methocarbamol 500 mg, Oxycodone 10 mg q6h - Planning for future reduction of oxycodone with escalating microinduction of suboxone. - Neurology following, appreciate recommendations Assessment & Plan (08/29/2025 12:04 PM EDT): - Etiology continues to be unclear. Unlikely to be autoimmune cause; however, theres are few labs still pending. Current leading differential is Coxsackie virus mediated rhabdomyolysis based on results from biopsies. - Patient continues to see improvement in bilateral arm and leg function. LLE is the most bothersome and has diminished function. Considering that patient has not moved her LLE for multiple days. - Anti-smooth muscle antibody (IgG) was positive PLAN: - Pending myositis antibody panel (SO) and signal recognition particle (SRP) antibody (SO) panels - Continue on scheduled pain regimen as listed below. - Pain Regimen: - Scheduled: Oxycodone 10 mg q12h, Tylenol 650 mg q6h, increasing gabapentin to 600 mg TID - PRN: Methocarbamol 500 mg, Oxycodone 10 mg q6h - Planning for future reduction of oxycodone with escalating microinduction of suboxone. - Rheumatology following, appreciate recommendations - Neurology following, appreciate recommendations Assessment & Plan (08/28/2025 12:59 PM EDT): - Etiology continues to be unclear. Unlikely to be autoimmune cause; however, theres are few labs still pending. Current leading differential is Coxsackie virus mediated rhabdomyolysis based on results from biopsies. - Patient continues to see improvement in bilateral arm and leg function. LLE is the most bothersome and diminished function. PLAN: - Pending myositis antibody panel (SO), anti-smooth muscle antibody (IgG), and signal recognition particle (SRP) antibody (SO) panels - Continue on scheduled pain regimen as listed below. - Pain Regimen: - Scheduled: Oxycodone 10 mg q12h, Tylenol 650 mg q6h, gabapentin 400 mg TID - PRN: Methocarbamol 500 mg, Oxycodone 10 mg q6h - Planning for future reduction of oxycodone with starting microinduction of suboxone. - Rheumatology following, appreciate recommendations - Neurology following, appreciate recommendations Assessment & Plan (08/27/2025 6:18 PM EDT): - Etiology continues to be unclear. Considering possible Coxsackie virus mediated rhabdomyolysis based on results from biopsies. - Differential also includes seronegative necrotizing autoimmune myopathy, polymyositis/dermatomyositis, or paraneoplastic myositis w/ positive anti-Yo positivity. - Today, patient is able to move her arms independently much better than previous examinations. He is also able to move her legs better than previously, but is still having increased amounts of pain. PLAN: - Pending myositis antibody panel (SO), anti-smooth muscle antibody (IgG), and signal recognition particle (SRP) antibody (SO) panels - Continue on scheduled pain regimen as listed below. - Pain Regimen: - Scheduled: Oxycodone 10 mg q12h, Tylenol 650 mg q6h, gabapentin 400 mg TID - PRN: Methocarbamol 500 mg, Oxycodone 10 mg q6h - Rheumatology following, appreciate recommendations - Neurology following, appreciate recommendations (no new recs on 08/26/25) Assessment & Plan (08/26/2025 12:21 PM EDT): - Etiology continues to be unclear. Considering possible Coxsackie virus mediated rhabdomyolysis based on results from biopsies. - Patient continues to have increased function of bilateral upper extremities and increasing sensation of bilateral lower extremities. - Surgical skin and muscle biopsy resulted showing no signs of vasculitis, widespread degenerating and regenerating muscle, and features of true inflammatory myopathy was not viewed. PLAN - Pending myositis antibody panel (SO), anti-smooth muscle antibody (IgG), and signal recognition particle (SRP) antibody (SO) panels - Pain Regimen: - Scheduled: Oxycodone 10 mg q12h, Tylenol 650 mg q6h, gabapentin increased to 400 mg TID - PRN: Methocarbamol 500 mg, Oxycodone 10 mg q6h - Rheumatology following, appreciate recommendations - Neurology following, appreciate recommendations Assessment & Plan (08/25/2025 1:17 PM EDT): - Etiology continues to be unclear. - Now thought to be unlikely autoimmune cause because CK improved over time with fluids and without an immune suppressant or modulator. - Muscle biopsy, skin biopsy, and lumbar puncture performed on 08/21. PLAN - Awaiting biopsy results. - Reordered myositis antibody panel (SO), anti-smooth muscle antibody (IgG), and signal recognition particle (SRP) antibody (SO) panel for AM lab draw since lab could not complete the previous studies due to decreased sample quantity. - Pain Regimen: - Scheduled: Oxycodone 10 mg q12h, Tylenol 650 mg q6h, gabapentin 300 mg TID - PRN: Methocarbamol 500 mg, Oxycodone 10 mg q6h - Rheumatology following, appreciate recommendations - Neurology following, appreciate recommendations Assessment & Plan (08/24/2025 11:26 AM EDT): - Etiology unclear at this time, likely to be autoimmune cause - Multiple positive autoimmune markers including anti-smooth muscles, purkinje cell antibodies, and SSA-52 antibodies. - Muscle biopsy, skin biopsy, and lumbar puncture performed on 08/21. - Meningitis/encephalitis panel was negative. CSF fluid culture NGD4. PLAN - Contacted the lab who said that the biopsies that were collected on 08/21 would be expected to result around 3 days later. - Lab notified team that myositis antibody panel (SO), anti-smooth muscle antibody, IgG, and a signal recognition particle (SRP) antibody (SO) was cancelled due to not enough quantity of the sample. - Pain Regimen: - Scheduled: Tylenol 650 mg q6h and gabapentin increased to 300 mg TID - PRN: Methocarbamol 500 mg, Oxycodone 10 mg q4h - Rheumatology following, appreciate recommendations - Neurology following, appreciate recommendations Assessment & Plan (08/23/2025 12:08 PM EDT): - Etiology unclear at this time, likely to be autoimmune cause - Multiple positive autoimmune markers including anti-smooth muscles, purkinje cell antibodies, and SSA-52 antibodies. - Muscle biopsy, skin biopsy, and lumbar puncture performed on 08/21. - Meningitis/encephalitis panel was negative. CSF fluid culture NGD2. PLAN - Pain Regimen: - Scheduled: Tylenol 650 mg q6h and gabapentin increased to 200 mg TID - PRN: Methocarbamol 500 mg, Oxycodone 10 mg q4h - Rheumatology following, appreciate recommendations - Neurology following, appreciate recommendations - Following results of biopsies and lumbar puncture Assessment & Plan (08/22/2025 11:28 AM EDT): - Etiology unclear at this time, likely to be autoimmune cause - CK continues to downtrend - Multiple positive autoimmune markers including anti-smooth muscles, purkinje cell antibodies, and SSA-52 antibodies. - Muscle biopsy, skin biopsy, and lumbar puncture performed on 08/21. PLAN - Pain Regimen: - Scheduled: Tylenol 650 mg q6h, gabapentin 100 mg TID, and methocarbamol 500 mg q6h. - PRN: Oxycodone 10 mg q4h - Rheumatology following, appreciate recommendations - Neurology following, appreciate recommendations - Following results of biopsies and lumbar puncture - D/c further CK checks since value has down-trended over the last few days. Assessment & Plan (08/09/2025 1:48 PM EDT): CK > 97k AST > ALT, both elevated significantly; likely skeletal muscle injury from rhabdo but liver injury not excluded Risk for BENNY, electrolyte derangements and subsequent arrhythmia Imaging concerning for anasarca, fluid-overload Legs tender on exam, peripheral mottling with pulses intact Haptoglobin 23 PLAN Admit to Progressive unit under Dr. Lehman Telemetry Monitoring Continue IVF with LR- Increased from 100ml/hr to 200ml/hr Strict IO Continue hart Trend CMP q6h Trend CK, Mg, Phos, Ca, LFTs Hold nephrotoxic agents, RAAS medications MICU Consulted and appreciate recs: - Unclear etiology, probably patient will need extensive workup - Reasonable to start with ultrasound/Doppler of liver, hepatitis panel, other liver function tests including autoimmune workup, thyroid, endocrine workup - Reasonable to consult hepatology, rheumatology. May consider Neurology evaluation as well to rule out any neuromuscular issues. If no specific cause is found mainly the muscle biopsy in the future - Since this patient is hemodynamically stable, respiratory status is stable as well, no frequent nursing needs at this time, this patient can be admitted at progressive/floor - If the patient decompensates, please recall us we immediately evaluate the patient Consult Nephrology in setting of pleural effusion/anasarca and need for fluid resuscitation and appreciate recs: - making a good amount of urine. Would increase IVf to 200/hr and consult vascular surgery and GI - q2hr I&Os Consulted vascular surgery Pain Regimen: Scheduled 1mg dilaudid q2hr F/u antiscleroderma AB, anti-smooth muscle AB, dsDNA, myositis AB, RF, SRP, Streptococcus pneumonia/legionella urinary antigen F/u cystatin c F/u nasopharyngeal respiratory panel F/u Covid F/u blood cultures Electrolyte abnormality 08/09/2025 10/0 06/2025 Assessment & Plan (08/09/2025 1:48 PM EDT): Hyponatremia with Na 125-126 iCa 4.4 Phos WNL, K at 4.9 PLAN Continue IVF with LR Trend electrolytes on labs; CMP q6h at present as concurrently tracking LFTs Aortic insufficiency with aortic stenosis 03/18/2021 08/09/2025 Encounters * This document contains information received from the source organization and may not represent a complete record from that organization. Date Type Department Care Team Description 09/08/2025 Telephone [facility] [address] [place] [address] Rodolfo Rhoades MD 09/08/2025 Patient Outreach POPULATION [address], [address] [place] [address] So Caicedo LPN [facility] 09/07/2025 Results Follow-Up [facility] [address] [place] [address] Annemarie Grover, PharmD 09/07/2025 Patient Outreach POPULATION [address], [address] [place] [address] So Caicedo LPN [facility] 08/30/2025 Travel 08/22/2025 Travel 08/21/2025 2:57 PM EDT Anesthesia Event [facility] [address] [place] [address] Sosa Cadet MD Cauthen, Alok R, DO 08/21/2025 Travel 08/19/2025 Travel 08/17/2025 Travel 08/15/2025 Travel 08/11/2025 Travel 08/09/2025 Travel 08/08/2025 Orders Only External Location [address] [place] [address] Lobo Lowery PA 08/08/2025 Orders Only External Location [address] [place] [address] Lobo Lowery PA 08/08/2025 Outside Procedure External Location [address] [place] [address] Provider, Generic [place] 08/08/2025 Outside Procedure External Location [address] [place] [address] Provider, Generic [place] 08/08/2025 Orders Only External Location [address] [place] [address] Provider, Generic [place] 08/07/2025 Outside Procedure External Location [address] [place] [address] Provider, Generic [place] 08/07/2025 Orders Only External Location [address] [place] [address] Provider, Generic [place] 08/06/2025 Orders Only External Location [address] [place] [address] Provider, External 08/06/2025 Orders Only External Location [address] [place] [address] Lobo Lowery PA 08/06/2025 Outside Procedure External Location [address] [place] [address] Provider, Generic [place] 08/06/2025 Outside Procedure External Location [address] [place] [address] Provider, Generic [place] 08/06/2025 Orders Only External Location [address] [place] [address] Provider, Generic [place] 07/28/2025 Patient Outreach POPULATION HEALTH [address] [place], [place] [address]za, [facility] [address] [place] [address] Rachelnewton Marianne Danny [facility]. (Records) 07/28/2025 Patient Outreach POPULATION HEALTH [facility] [place] [address], [facility] [address] [place] [address] Rachelnewton Marianne Danny [facility]. (Records) 07/14/2025 10:40 AM EDT Office Visit [facility] [address] [place] [address] Rodolfo Rhoades MD Chronic fatigue (Primary Dx); Essential hypertension; Pitting edema; Heart failure with preserved ejection fraction, unspecified HF chronicity (CMS/HCC) 07/14/2025 Results Follow-Up [facility] [address] [place] [address] Rodolfo Rhoades MD 07/14/2025 Telephone [facility] [address] [place] [address] Rodolfo Rhoades MD HCN Paperwork/Documenta tion Request 07/14/2025 Patient Outreach POPULATION [place] [address] [address], [facility] [address] [place] [address] Ariana Bagley [facility] 07/14/2025 Patient Outreach POPULATION [address] [place], [facility] [address] [place] [address] Mami Marianne D [facility]. (Records) 07/14/2025 Travel 07/09/2025 Refill [facility] [address] [place] [address] Rodolfo Rhoades MD 07/07/2025 Refill [facility] [address] [place] [address] Rodolfo Rhoades MD 07/07/2025 Refill [facility] [address] [place] [address] Jocelyn Velez, COMPUTER PROGRAMMER, DNP Low vitamin D level 07/05/2025 Telephone [facility] [address] [place] [address] Rodolfo Rhoades MD HCN Clinical Concern/Question 06/15/2025 Orders Only [facility] [address] [place] [address] Rodolfo Rhoades MD Fungal infection (Primary Dx) 06/15/2025 Telephone [facility] [address] [place] [address] Rodolfo Rhoades MD HCN - Patient Message from Last 3 Months Immunizations Immunization Administration Dates Next Due Influenza, injectable, quadrivalent 12/17/2016 Influenza, injectable, quadr ivalent, preservative free 09/20/2020 Influenza, seasonal, injecta ble, preservative free 12/17/2016 [employer] COVID-19 Vac cine (Purple Cap) 12+ 11/27/2021,04/05/2021,03/08/2021 Family History Medical History Relation Name Comments No Known Problems Daughter Alcohol abuse Father Cirrhosis Father Cancer Maternal Grandfather Jaya Greenfield Heart disease Maternal Grandmother Starr Collins Stroke Maternal Grandmother Starr Collins Arthritis Mother Em Greenfield COPD Mother Em Greenfield Heart attack Mother Em Greenfield Osteoporosis Mother [...] time in the past 12 m [facility], were you homeless or living in a group home (including now)? No 08/09/2025 [facility] [...] Sign Reading Time Taken Comments Blood Pressure 158/83 09/06/2025 4:04 PM EDT Pulse 76 09/06/2025 4:04 PM EDT Temperature 36.3 C (97.4 F) 09/06/2025 4:01 PM EDT Respiratory Rate 18 09/06/2025 4:04 PM EDT Oxygen Saturation 99% 09/06/2025 4:04 PM EDT Inhaled Oxygen Concentration - - Weight 63.3 kg (139 lb 8.8 oz) 09/06/2025 10:00 AM EDT Height 162.6 cm (5' 4.02 ) 09/06/2025 10:00 AM E DT Body Mass Index 23.94 09/06/2025 10:00 AM EDT Plan of Treatment Upcoming Encounters Date Type Department Care Team (Late st Contact Info) Description 09/15/2025 1:00 PM EDT Office Visit [facility] [place] [address] Rodolfo Rhoades MD [place] [address] 09/26/2025 8:00 AM EDT Office Visit [facility] [address] [address] Rodolfo Rhoades MD [address] [place] [address] Health Maintenance Due Date Last Done Comments [facility]-/Child/Adol SDOH Screenings 1977 [facility]-DTaP,Tdap,and Td Vaccines (1 - Tdap) 1996 [facility]-Hepatitis A Vaccines (1 of 2 - Risk 2-dose series) 1996 [facility]-Hepatitis B Vaccines (1 of 3 - 19+ 3-dose series) 1996 [facility]-Pneumococcal Vaccine: Pediatrics (0 to 5 Years) and At-Risk Patients (6 to 49 Years) (1 of 2 - PCV) 1996 [facility]-Zoster Vaccines (1 of 2) [address] CT Colonography 2022 FIT-DNA 2022 FIT 2022 FOBT 2022 Sigmoidoscopy 2022 [id number] Vaccine ( season) 2025 11/27/2021, 04/05/2021, 03/08/2021 [facility]-Influenza Vaccine (#1) 07/31/202509/20, 12/17/2016, 12/17/2016 [facility]- SDOH Screenings 02/06/2026 [facility]-Adult SDOH Screenings 02/06/2026 08/09/2025 [facility]-Depression Screening 07/14/2026 07/14/2025, 06/30 Colonoscopy 02/24/2035 02/24/2025 [facility]-Colorectal Cancer Screening 02/24/2035 [facility]-Diabetes: Hemoglobin A1C Discontinued 08/07/2025, 03/27/2025, 07/25/2024, Additional history exists [facility]-Obesity Intervention Completed 025, 06/07/2025, 03/27/2025, Additional history exists [facility]-Hepatitis C Screening Completed 08/09/2025, 03/2021 [facility]-HIV Screening Completed 08/12/2025, 08/09/2025 HPV Vaccines Aged Out No longer eligi [...] Procedure Name Priority Date/Time Associated Diagnosis Comments TYPE AND SCREEN Pending Discharge 09/06/2025 10:04 AM EDT PREPARE RBC Routine 09/06/2025 9:11 AM EDT POCT GLUCOSE METER UNSOLICITED RESULTS Routine 09/06/2025 6:48 AM EDT PROTHROMBIN TIME(PT) / INR Routine 09/06/2025 3:37 AM EDT COMPREHENSIVE METABOLIC PANEL, PLASMA Routine 09/06/2025 3:37 AM EDT PHOSPHORUS, PLASMA Routine 09/06/2025 3:37 AM EDT MAGNESIUM, PLASMA Routine 09/06/2025 3:37 AM EDT CBC WITH AUTO DIFFERENTIAL Routine 09/06/2025 3:37 AM EDT PROTHROMBIN TIME(PT) / INR Routine 09/05/2025 4:59 AM EDT COMPREHENSIVE METABOLIC PANEL, PLASMA Routine 09/05/2025 4:59 AM EDT PHOSPHORUS, PLASMA Routine 09/05/2025 4:59 AM EDT MAGNESIUM, PLASMA Routine 09/05/2025 4:59 AM EDT CBC WITH AUTO DIFFERENTIAL Routine 09/05/2025 4:59 AM EDT PROTHROMBIN TIME(PT) / INR Routine 09/04/2025 3:31 AM EDT COMPREHENSIVE METABOLIC PANEL, PLASMA Routine 09/04/2025 3:31 AM EDT PHOSPHORUS, PLASMA Routine 09/04/2025 3:31 AM EDT MAGNESIUM, PLASMA Routine 09/04/2025 3:31 AM EDT CBC WITH AUTO DIFFERENTIAL Routine 09/04/2025 3:31 AM EDT PROTHROMBIN TIME(PT) / INR Routine 09/03/2025 10:07 AM EDT COMPREHENSIVE METABOLIC PANEL, PLASMA Routine 09/03/2025 10:07 AM EDT PHOSPHORUS, PLASMA Routine 09/03/2025 10:07 AM EDT MAGNESIUM, PLASMA Routine 09/03/2025 10:07 AM EDT CBC WITH AUTO DIFFERENTIAL Routine 09/03/2025 10:07 AM EDT POCT GLUCOSE METER UNSOLICITED RESULTS Routine 09/02/2025 11:05 PM EDT PROTHROMBIN TIME(PT) / INR Routine 09/02/2025 12:58 AM EDT COMPREHENSIVE METABOLIC PANEL, PLASMA Routine 09/02/2025 12:58 AM EDT PHOSPHORUS, PLASMA Routine 09/02/2025 12:58 AM EDT MAGNESIUM, PLASMA Routine 09/02/2025 12:58 AM EDT CBC WITH AUTO DIFFERENTIAL Routine 09/02/2025 12:58 AM EDT PROTHROMBIN TIME(PT) / INR Routine 09/01/2025 3:32 AM EDT COMPREHENSIVE METABOLIC PANEL, PLASMA Routine 09/01/2025 3:32 AM EDT PHOSPHORUS, PLASMA Routine 09/01/2025 3:32 AM EDT MAGNESIUM, PLASMA Routine 09/01/2025 3:32 AM EDT CBC WITH AUTO DIFFERENTIAL Routine 09/01/2025 3:32 AM EDT PROTHROMBIN TIME(PT) / INR Routine 08/31/2025 4:41 AM EDT COMPREHENSIVE METABOLIC PANEL, PLASMA Routine 08/31/2025 4:41 AM EDT PHOSPHORUS, PLASMA Routine 08/31/2025 4:41 AM EDT MAGNESIUM, PLASMA Routine 08/31/2025 4:41 AM EDT CBC WITH AUTO DIFFERENTIAL Routine 08/31/2025 4:41 AM EDT WOUND OSTOMY EVAL AND TREAT Routine 08/30/2025 6:11 PM EDT XR SHOULDER RIGHT 2+ VIEWS Routine 08/30/2025 4:55 PM EDT PROTHROMBIN TIME(PT) / INR Routine 08/30/2025 4:41 AM EDT COMPREHENSIVE METABOLIC PANEL, PLASMA Routine 08/30/2025 4:41 AM EDT PHOSPHORUS, PLASMA Routine 08/30/2025 4:41 AM EDT MAGNESIUM, PLASMA Routine 08/30/2025 4:41 AM EDT CBC WITH AUTO DIFFERENTIAL Routine 08/30/2025 4:41 AM EDT PROTHROMBIN TIME(PT) / INR Routine 08/29/2025 1:45 AM EDT COMPREHENSIVE METABOLIC PANEL, PLASMA Routine 08/29/2025 1:45 AM EDT PHOSPHORUS, PLASMA Routine 08/29/2025 1:45 AM EDT MAGNESIUM, PLASMA Routine 08/29/2025 1:45 AM EDT CBC WITH AUTO DIFFERENTIAL Routine 08/29/2025 1:45 AM EDT ECG ADULT STAT 08/28/2025 5:11 PM EDT POCT GLUCOSE METER UNSOLICITED RESULTS Routine 08/28/2025 9:14 AM EDT PROTHROMBIN TIME(PT) / INR Routine 08/28/2025 5:19 AM EDT COMPREHENSIVE METABOLIC PANEL, PLASMA Routine 08/28/2025 5:19 AM EDT PHOSPHORUS, PLASMA Routine 08/28/2025 5:19 AM EDT MAGNESIUM, PLASMA Routine 08/28/2025 5:19 AM EDT CBC WITH AUTO DIFFERENTIAL Routine 08/28/2025 5:19 AM EDT ECG ADULT Routine 08/27/2025 11:30 PM EDT POCT GLUCOSE METER UNSOLICITED RESULTS Routine 08/27/2025 8:04 PM EDT PROTHROMBIN TIME(PT) / INR Routine 08/27/2025 4:26 AM EDT COMPREHENSIVE METABOLIC PANEL, PLASMA Routine 08/27/2025 4:26 AM EDT PHOSPHORUS, PLASMA Routine 08/27/2025 4:26 AM EDT MAGNESIUM, PLASMA Routine 08/27/2025 4:26 AM EDT CBC WITH AUTO DIFFERENTIAL Routine 08/27/2025 4:26 AM EDT POCT GLUCOSE METER UNSOLICITED RESULTS Routine 08/26/2025 5:00 PM EDT POCT GLUCOSE METER UNSOLICITED RESULTS Routine 08/26/2025 8:20 AM EDT POCT GLUCOSE METER UNSOLICITED RESULTS Routine 08/26/2025 7:51 AM EDT CYTOPLASMIC PATTERNSO) (SO) Routine 08/26/2025 3:26 AM EDT SMOOTH MUSCLE ANTIBODY, IGG TITER (SO) Routine 08/26/2025 3:26 AM EDT EXTENDED MYOSITIS PANEL(SO) Routine 08/26/2025 3:26 AM EDT PROTHROMBIN TIME(PT) / INR Routine 08/26/2025 3:26 AM EDT COMPREHENSIVE METABOLIC PANEL, PLASMA Routine 08/26/2025 3:26 AM EDT PHOSPHORUS, PLASMA Routine 08/26/2025 3:26 AM EDT MAGNESIUM, PLASMA Routine 08/26/2025 3:26 AM EDT CBC WITH AUTO DIFFERENTIAL Routine 08/26/2025 3:26 AM EDT POCT GLUCOSE METER UNSOLICITED RESULTS Routine 08/25/2025 11:50 PM EDT POCT GLUCOSE METER UNSOLICITED RESULTS Routine 08/25/2025 6:00 PM EDT POCT GLUCOSE METER UNSOLICITED RESULTS Routine 08/25/2025 6:47 AM EDT PROTHROMBIN TIME(PT) / INR Routine 08/25/2025 6:09 AM EDT COMPREHENSIVE METABOLIC PANEL, PLASMA Routine 08/25/2025 6:09 AM EDT PHOSPHORUS, PLASMA Routine 08/25/2025 6:09 AM EDT MAGNESIUM, PLASMA Routine 08/25/2025 6:09 AM EDT CBC WITH AUTO DIFFERENTIAL Routine 08/25/2025 6:09 AM EDT POCT GLUCOSE METER UNSOLICITED RESULTS Routine 08/25/2025 5:23 AM EDT POCT GLUCOSE METER UNSOLICITED RESULTS Routine 08/24/2025 11:17 PM EDT PROTHROMBIN TIME(PT) / INR Routine 08/24/2025 3:44 AM EDT COMPREHENSIVE METABOLIC PANEL, PLASMA Routine 08/24/2025 3:44 AM EDT PHOSPHORUS, PLASMA Routine 08/24/2025 3:44 AM EDT MAGNESIUM, PLASMA Routine 08/24/2025 3:44 AM EDT CBC WITH AUTO DIFFERENTIAL Routine 08/24/2025 3:44 AM EDT POCT GLUCOSE METER UNSOLICITED RESULTS Routine 08/24/2025 12:08 AM EDT POCT GLUCOSE METER UNSOLICITED RESULTS Routine 08/23/2025 5:53 PM EDT POCT GLUCOSE METER UNSOLICITED RESULTS Routine 08/23/2025 5:47 AM EDT PROTHROMBIN TIME(PT) / INR Routine 08/23/2025 5:40 AM EDT COMPREHENSIVE METABOLIC PANEL, PLASMA Routine 08/23/2025 5:40 AM EDT PHOSPHORUS, PLASMA Routine 08/23/2025 5:40 AM EDT MAGNESIUM, PLASMA Routine 08/23/2025 5:40 AM EDT CBC WITH AUTO DIFFERENTIAL Routine 08/23/2025 5:40 AM EDT POCT GLUCOSE METER UNSOLICITED RESULTS Routine 08/22/2025 11:53 PM EDT FL MODIFIED BARIUM SWALLOW Routine 08/22/2025 12:21 PM EDT POCT GLUCOSE METER UNSOLICITED RESULTS Routine 08/22/2025 6:13 AM EDT PROTHROMBIN TIME(PT) / INR Routine 08/22/2025 3:18 AM EDT CREATINE KINASE, TOTAL, PLASMA Routine 08/22/2025 3:18 AM EDT COMPREHENSIVE METABOLIC PANEL, PLASMA Routine 08/22/2025 3:18 AM EDT PHOSPHORUS, PLASMA Routine 08/22/2025 3:18 AM EDT MAGNESIUM, PLASMA Routine 08/22/2025 3:18 AM EDT CBC WITH AUTO DIFFERENTIAL Routine 08/22/2025 3:18 AM EDT POCT GLUCOSE METER UNSOLICITED RESULTS Routine 08/22/2025 12:27 AM EDT XR CHEST 1 VIEW Routine 08/21/2025 6:13 PM EDT POCT GLUCOSE METER UNSOLICITED RESULTS Routine 08/21/2025 5:20 PM EDT SURGICAL PATHOLOGY EXAM Routine 08/21/2025 3:25 PM EDT Non-traumatic rhabdomyolysis BIOPSY, MUSCLE 08/21/2025 2:42 PM EDT Non-traumatic rhabdomyolysis INSERT PERIPHERAL IV Routine 08/21/2025 1:25 PM EDT ENCEPHALOPATHY, AUTOIMMUNE/PARANEOPLAS TIC EVALUATION, SERUM (SO) Routine 08/21/2025 12:12 PM EDT IONIZED CALCIUM, WHOLE BLOOD Routine 08/21/2025 12:12 PM EDT PROTHROMBIN TIME(PT) / INR Routine 08/21/2025 12:12 PM EDT CREATINE KINASE, TOTAL, PLASMA Routine 08/21/2025 12:12 PM EDT COMPREHENSIVE METABOLIC PANEL, PLASMA Routine 08/21/2025 12:12 PM EDT PHOSPHORUS, PLASMA Routine 08/21/2025 12:12 PM EDT MAGNESIUM, PLASMA Routine 08/21/2025 12:12 PM EDT CBC WITH AUTO DIFFERENTIAL Routine 08/21/2025 12:12 PM EDT POCT GLUCOSE METER UNSOLICITED RESULTS Routine 08/21/2025 11:39 AM EDT IR LUMBAR PUNCTURE Routine 08/21/2025 10:42 AM EDT NON-GYNECOLOGIC CYTOLOGY Routine 08/21/2025 10:36 AM EDT CSF NOTIFICATION ORDER - PERFORMABLE Routine 08/21/2025 10:36 AM EDT CSF PANEL Routine 08/21/2025 10:36 AM EDT MENINGITIS/ENCEPHALITI S PANEL BY PCR Routine 08/21/2025 10:36 AM EDT FREEZE AND HOLD Routine 08/21/2025 10:36 AM EDT CEREBROSPINAL FLUID (CSF) CULTURE AND GRAM STAIN Routine 08/21/2025 10:36 AM EDT ENCEPHALOPATHY, AUTOIMMUNE/PARANEOPLAS TIC EVALUATION, CSF (SO) Routine 08/21/2025 10:27 AM EDT TOTAL PROTEIN, CSF Routine 08/21/2025 10:27 AM EDT GLUCOSE, CSF Routine 08/21/2025 10:27 AM EDT LACTIC ACID, CSF Routine 08/21/2025 10:27 AM EDT CSF CELL COUNT W/ MANUAL DIFFERENTIAL Routine 08/21/2025 10:27 AM EDT POCT GLUCOSE METER UNSOLICITED RESULTS Routine 08/21/2025 6:45 AM EDT POCT GLUCOSE METER UNSOLICITED RESULTS Routine 08/21/2025 6:15 AM EDT POCT GLUCOSE METER UNSOLICITED RESULTS Routine 08/21/2025 12:14 AM EDT POCT GLUCOSE METER UNSOLICITED RESULTS Routine 08/20/2025 5:30 PM EDT POCT GLUCOSE METER UNSOLICITED RESULTS Routine 08/20/2025 12:19 PM EDT CBC W/O DIFFERENTIAL Routine 08/20/2025 8:51 AM EDT VANCOMYCIN, PEAK, PLASMA Routine 08/20/2025 8:50 AM EDT VANCOMYCIN, TROUGH, PLASMA Routine 08/20/2025 5:35 AM EDT PROTHROMBIN TIME(PT) / INR Routine 08/20/2025 5:35 AM EDT CYNDEE AURIS SURVEILLANCE BY PCR Routine 08/20/2025 3:53 AM EDT TRANSFUSE RED BLOOD CELLS Routine 08/20/2025 3:00 AM EDT TYPE AND SCREEN Routine 08/20/2025 2:04 AM EDT PREPARE RBC Routine 08/20/2025 1:51 AM EDT POCT VENOUS BLOOD GAS GEM UNSOLICITED RESULTS Routine 08/20/2025 1:29 AM EDT CYSTATIN C Routine 08/20/2025 1:20 AM EDT IONIZED CALCIUM, WHOLE BLOOD Routine 08/20/2025 1:20 AM EDT CREATINE KINASE, TOTAL, PLASMA Routine 08/20/2025 1:20 AM EDT COMPREHENSIVE METABOLIC PANEL, PLASMA Routine 08/20/2025 1:20 AM EDT PHOSPHORUS, PLASMA Routine 08/20/2025 1:20 AM EDT MAGNESIUM, PLASMA Routine 08/20/2025 1:20 AM EDT CBC WITH AUTO DIFFERENTIAL Routine 08/20/2025 1:20 AM EDT POCT GLUCOSE METER UNSOLICITED RESULTS Routine 08/19/2025 11:44 PM EDT POCT GLUCOSE METER UNSOLICITED RESULTS Routine 08/19/2025 5:18 PM EDT MR CERVICAL SPINE W AND WO IV CONTRAST STAT 08/19/2025 1:43 PM EDT MR HEAD W AND WO IV CONTRAST STAT 08/19/2025 1:43 PM EDT POCT GLUCOSE METER UNSOLICITED RESULTS Routine 08/19/2025 11:42 AM EDT CRITICAL CARE Routine 08/19/2025 7:31 AM EDT Non-traumatic rhabdomyolysis Anasarca Opioid use disorder in remission Status post mechanical aortic valve replacement Pulmonary emphysema, unspecified emphysema type (CMS/HCC) Anxiety POCT GLUCOSE METER UNSOLICITED RESULTS Routine 08/19/2025 5:29 AM EDT MORPHOLOGY Routine 08/19/2025 1:34 AM EDT MANUAL DIFFERENTIAL Routine 08/19/2025 1:34 AM EDT IONIZED CALCIUM, WHOLE BLOOD Routine 08/19/2025 1:34 AM EDT PROTHROMBIN TIME(PT) / INR Routine 08/19/2025 1:34 AM EDT CREATINE KINASE, TOTAL, PLASMA Routine 08/19/2025 1:34 AM EDT COMPREHENSIVE METABOLIC PANEL, PLASMA Routine 08/19/2025 1:34 AM EDT PHOSPHORUS, PLASMA Routine 08/19/2025 1:34 AM EDT MAGNESIUM, PLASMA Routine 08/19/2025 1:34 AM EDT CBC WITH AUTO DIFFERENTIAL Routine 08/19/2025 1:34 AM EDT LACTATE, VENOUS Routine 08/19/2025 1:34 AM EDT XR CHEST 1 VIEW Routine 08/19/2025 1:14 AM EDT POCT GLUCOSE METER UNSOLICITED RESULTS Routine 08/19/2025 12:02 AM EDT POCT GLUCOSE METER UNSOLICITED RESULTS Routine 08/18/2025 6:13 PM EDT N-TERMINAL PROBNP, PLASMA STAT 08/18/2025 2:50 PM EDT BLOOD CULTURE (AEROBIC/ANAEROBIC SET) STAT 08/18/2025 2:50 PM EDT BLOOD CULTURE (AEROBIC/ANAEROBIC SET) STAT 08/18/2025 2:35 PM EDT POCT GLUCOSE METER UNSOLICITED RESULTS Routine 08/18/2025 12:13 PM EDT [facility] CRITICAL CARE, E/M 30-74 MINUTES Routine 08/18/2025 8:40 AM EDT Non-traumatic rhabdomyolysis Transaminitis Shock (CMS/HCC) Anasarca Electrolyte abnormality Opioid use disorder in remission Status post mechanical aortic valve replacement Elevated LFTs Pulmonary emphysema, unspecified emphysema type (CMS/HCC) Chronic atrial fibrillation (CMS/HCC) POCT GLUCOSE METER UNSOLICITED RESULTS Routine 08/18/2025 6:10 AM EDT N-TERMINAL PROBNP, PLASMA Add-On 08/18/2025 2:23 AM EDT CYSTATIN C Add-On 08/18/2025 2:23 AM EDT TROPONIN T, HIGH SENSITIVITY, 2 HOUR, PLASMA Timed 08/18/2025 2:23 AM EDT POCT GLUCOSE METER UNSOLICITED RESULTS Routine 08/18/2025 12:31 AM EDT MORPHOLOGY Routine 08/18/2025 12:26 AM EDT MANUAL DIFFERENTIAL Routine 08/18/2025 12:26 AM EDT URINALYSIS MICROSCOPIC FOR UA REFLEX Routine 08/18/2025 12:26 AM EDT TROPONIN T, HIGH SENSITIVITY, 0 HOUR, PLASMA, REFLEX TO 2 HOUR STAT 08/18/2025 12:26 AM EDT PROCALCITONIN, PLASMA Add-On 08/18/2025 12:26 AM EDT CORTISOL Routine 08/18/2025 12:26 AM EDT IONIZED CALCIUM, WHOLE BLOOD Routine 08/18/2025 12:26 AM EDT URINE ROBB PANEL Routine 08/18/2025 12:26 AM EDT URINALYSIS WITH REFLEX MICROSCOPIC Routine 08/18/2025 12:26 AM EDT URINALYSIS WITH REFLEX MICROSCOPIC AND CULTURE Routine 08/18/2025 12:26 AM EDT PROTHROMBIN TIME(PT) / INR Routine 08/18/2025 12:26 AM EDT CREATINE KINASE, TOTAL, PLASMA Routine 08/18/2025 12:26 AM EDT COMPREHENSIVE METABOLIC PANEL, PLASMA Routine 08/18/2025 12:26 AM EDT PHOSPHORUS, PLASMA Routine 08/18/2025 12:26 AM EDT MAGNESIUM, PLASMA Routine 08/18/2025 12:26 AM EDT CBC WITH AUTO DIFFERENTIAL Routine 08/18/2025 12:26 AM EDT [facility] CR[facility] C[facility], E/M 30-74 MINUTES Routine 08/17/2025 10:29 PM EDT Non-traumatic rhabdomyolysis Hyponatremia Transaminitis Shock (CMS/HCC) Anasarca Electrolyte abnormality Opioid use disorder in remission Status post mechanical aortic valve replacement POCT GLUCOSE METER UNSOLICITED RESULTS Routine 08/17/2025 9:40 PM EDT POCT GLUCOSE METER UNSOLICITED RESULTS Routine 08/17/2025 8:01 PM EDT POCT GLUCOSE METER UNSOLICITED RESULTS Routine 08/17/2025 6:52 PM EDT XR CHEST 1 VIEW STAT 08/17/2025 6:40 PM EDT METHICILLIN RESISTANT STAPHYLOCOCCUS AUREUS (MRSA) BY PCR Routine 08/17/2025 5:44 PM EDT BLOOD GAS PANEL, VENOUS STAT 08/17/2025 11:54 AM EDT BACTERIAL ID GRAM POSITIVE Routine 08/17/2025 11:47 AM EDT BLOOD CULTURE (AEROBIC/ANAEROBIC SET) Routine 08/17/2025 11:47 AM EDT BLOOD CULTURE (AEROBIC/ANAEROBIC SET) Routine 08/17/2025 11:47 AM EDT INSERT PERIPHERAL IV Routine 08/17/2025 9:52 AM EDT PROTHROMBIN TIME(PT) / INR STAT 08/17/2025 8:39 AM EDT WOUND OSTOMY EVAL AND TREAT Routine 08/17/2025 7:30 AM EDT MORPHOLOGY Routine 08/17/2025 5:07 AM EDT MANUAL DIFFERENTIAL Routine 08/17/2025 5:07 AM EDT HMGCR AB IGG Routine 08/17/2025 5:07 AM EDT SIGNAL RECOGNITION PARTICLE (SRP) ANTIBODY (SO) Routine 08/17/2025 5:07 AM EDT PROTHROMBIN TIME(PT) / INR Routine 08/17/2025 5:07 AM EDT CREATINE KINASE, TOTAL, PLASMA Routine 08/17/2025 5:07 AM EDT COMPREHENSIVE METABOLIC PANEL, PLASMA Routine 08/17/2025 5:07 AM EDT PHOSPHORUS, PLASMA Routine 08/17/2025 5:07 AM EDT MAGNESIUM, PLASMA Routine 08/17/2025 5:07 AM EDT CBC WITH AUTO DIFFERENTIAL Routine 08/17/2025 5:07 AM EDT POCT GLUCOSE METER UNSOLICITED RESULTS Routine 2025 7:57 PM EDT POCT GLUCOSE METER UNSOLICITED RESULTS Routine 2025 5:26 PM EDT POCT GLUCOSE METER UNSOLICITED RESULTS Routine 2025 11:46 AM EDT MORPHOLOGY Routine 2025 3:02 AM EDT MANUAL DIFFERENTIAL Routine 2025 3:02 AM EDT PROTHROMBIN TIME(PT) / INR Routine 2025 3:02 AM EDT CREATINE KINASE, TOTAL, PLASMA Routine 2025 3:02 AM EDT COMPREHENSIVE METABOLIC PANEL, PLASMA Routine 2025 3:02 AM EDT PHOSPHORUS, PLASMA Routine 2025 3:02 AM EDT MAGNESIUM, PLASMA Routine 2025 3:02 AM EDT CBC WITH AUTO DIFFERENTIAL Routine 2025 3:02 AM EDT POCT GLUCOSE METER UNSOLICITED RESULTS Routine 08/15/2025 8:26 PM EDT MR TIBIA FIBULA RIGHT WO IV CONTRAST STAT 08/15/2025 5:25 PM EDT MR TIBIA FIBULA LEFT WO IV CONTRAST STAT 08/15/2025 5:25 PM EDT ECHO, ADULT TRANSTHORACIC COMPLETE Routine 08/15/2025 3:06 PM EDT POCT GLUCOSE METER UNSOLICITED RESULTS Routine 08/15/2025 12:13 PM EDT XR ABDOMEN 1 VIEW Routine 08/15/2025 11:37 AM EDT FL MODIFIED BARIUM SWALLOW Routine 08/15/2025 11:27 AM EDT POCT GLUCOSE METER UNSOLICITED RESULTS Routine 08/15/2025 7:38 AM EDT POCT GLUCOSE METER UNSOLICITED RESULTS Routine 08/15/2025 6:00 AM EDT MORPHOLOGY Routine 08/15/2025 3:05 AM EDT MANUAL DIFFERENTIAL Routine 08/15/2025 3:05 AM EDT PROTHROMBIN TIME(PT) / INR Routine 08/15/2025 3:05 AM EDT CREATINE KINASE, TOTAL, PLASMA Routine 08/15/2025 3:05 AM EDT COMPREHENSIVE METABOLIC PANEL, PLASMA Routine 08/15/2025 3:05 AM EDT PHOSPHORUS, PLASMA Routine 08/15/2025 3:05 AM EDT MAGNESIUM, PLASMA Routine 08/15/2025 3:05 AM EDT CBC WITH AUTO DIFFERENTIAL Routine 08/15/2025 3:05 AM EDT EXTRA TUBE LIGHT GREEN TOP Routine 08/15/2025 3:03 AM EDT EXTRA TUBES Routine 08/15/2025 3:03 AM EDT POCT GLUCOSE METER UNSOLICITED RESULTS Routine 08/14/2025 7:25 PM EDT POCT GLUCOSE METER UNSOLICITED RESULTS Routine 08/14/2025 5:15 PM EDT POCT GLUCOSE METER UNSOLICITED RESULTS Routine 08/14/2025 12:12 PM EDT WOUND OSTOMY EVAL AND TREAT Routine 08/14/2025 11:23 AM EDT POCT GLUCOSE METER UNSOLICITED RESULTS Routine 08/14/2025 8:00 AM EDT POCT GLUCOSE METER UNSOLICITED RESULTS Routine 08/14/2025 5:47 AM EDT MORPHOLOGY Routine 08/14/2025 5:22 AM EDT MANUAL DIFFERENTIAL Routine 08/14/2025 5:22 AM EDT PROTHROMBIN TIME(PT) / INR Routine 08/14/2025 5:22 AM EDT CREATINE KINASE, TOTAL, PLASMA Routine 08/14/2025 5:22 AM EDT COMPREHENSIVE METABOLIC PANEL, PLASMA Routine 08/14/2025 5:22 AM EDT PHOSPHORUS, PLASMA Routine 08/14/2025 5:22 AM EDT MAGNESIUM, PLASMA Routine 08/14/2025 5:22 AM EDT CBC WITH AUTO DIFFERENTIAL Routine 08/14/2025 5:22 AM EDT POCT GLUCOSE METER UNSOLICITED RESULTS Routine 08/14/2025 5:19 AM EDT WOUND OSTOMY EVAL AND TREAT Routine 08/14/2025 12:30 AM EDT POCT GLUCOSE METER UNSOLICITED RESULTS Routine 08/13/2025 6:29 PM EDT POCT GLUCOSE METER UNSOLICITED RESULTS Routine 08/13/2025 5:37 PM EDT POCT GLUCOSE METER UNSOLICITED RESULTS Routine 08/13/2025 8:07 AM EDT MORPHOLOGY Routine 08/13/2025 4:52 AM EDT MANUAL DIFFERENTIAL Routine 08/13/2025 4:52 AM EDT PROTHROMBIN TIME(PT) / INR Routine 08/13/2025 4:52 AM EDT CREATINE KINASE, TOTAL, PLASMA Routine 08/13/2025 4:52 AM EDT COMPREHENSIVE METABOLIC PANEL, PLASMA Routine 08/13/2025 4:52 AM EDT PHOSPHORUS, PLASMA Routine 08/13/2025 4:52 AM EDT MAGNESIUM, PLASMA Routine 08/13/2025 4:52 AM EDT CBC WITH AUTO DIFFERENTIAL Routine 08/13/2025 4:52 AM EDT POCT GLUCOSE METER UNSOLICITED RESULTS Routine 08/13/2025 4:04 AM EDT POCT GLUCOSE METER UNSOLICITED RESULTS Routine 08/13/2025 12:28 AM EDT POCT GLUCOSE METER UNSOLICITED RESULTS Routine 08/12/2025 9:33 PM EDT POCT GLUCOSE METER UNSOLICITED RESULTS Routine 08/12/2025 8:35 PM EDT POCT GLUCOSE METER UNSOLICITED RESULTS Routine 08/12/2025 6:54 PM EDT POCT GLUCOSE METER UNSOLICITED RESULTS Routine 08/12/2025 5:42 PM EDT HMGCR AB IGG Routine 08/12/2025 5:12 PM EDT HUMAN IMMUNODEFICIENCY VIRUS (HIV-1) QUANTITATIVE PCR Routine 08/12/2025 5:12 PM EDT ECG ADULT Routine 08/12/2025 5:09 PM EDT TROPONIN T, HIGH SENSITIVITY, 2 HOUR, PLASMA Timed 08/12/2025 2:26 PM EDT [facility] B VIRUS AB Routine 08/12/2025 1:12 PM EDT POCT GLUCOSE METER UNSOLICITED RESULTS Routine 08/12/2025 12:25 PM EDT [facility] A ANTIBODIES (SEROTYPES 2, 4, 7, 9, 10 AND 16), SERUM (SO) Routine 08/12/2025 12:07 PM EDT TROPONIN T, HIGH SENSITIVITY, 0 HOUR, PLASMA, REFLEX TO 2 HOUR STAT 08/12/2025 11:45 AM EDT URINALYSIS MICROSCOPIC FOR UA REFLEX Routine 08/12/2025 9:15 AM EDT UREA NITROGEN, RANDOM URINE Routine 08/12/2025 9:15 AM EDT CREATININE, RANDOM URINE Routine 08/12/2025 9:15 AM EDT OSMOLALITY, URINE Routine 08/12/2025 9:15 AM EDT URINE ROBB PANEL Routine 08/12/2025 9:15 AM EDT URINALYSIS WITH REFLEX MICROSCOPIC Routine 08/12/2025 9:15 AM EDT URINALYSIS WITH REFLEX MICROSCOPIC AND CULTURE Routine 08/12/2025 9:15 AM EDT MORPHOLOGY Routine 08/12/2025 5:22 AM EDT MANUAL DIFFERENTIAL Routine 08/12/2025 5:22 AM EDT OSMOLALITY, SERUM Add-On 08/12/2025 5:22 AM EDT PROTHROMBIN TIME(PT) / INR Routine 08/12/2025 5:22 AM EDT CREATINE KINASE, TOTAL, PLASMA Routine 08/12/2025 5:22 AM EDT COMPREHENSIVE METABOLIC PANEL, PLASMA Routine 08/12/2025 5:22 AM EDT PHOSPHORUS, PLASMA Routine 08/12/2025 5:22 AM EDT MAGNESIUM, PLASMA Routine 08/12/2025 5:22 AM EDT CBC WITH AUTO DIFFERENTIAL Routine 08/12/2025 5:22 AM EDT POCT GLUCOSE METER UNSOLICITED RESULTS Routine 08/11/2025 11:47 AM EDT PROTHROMBIN TIME(PT) / INR Routine 08/11/2025 11:37 AM EDT POCT GLUCOSE METER UNSOLICITED RESULTS Routine 08/11/2025 9:21 AM EDT XR CHEST 1 VIEW STAT 08/11/2025 8:59 AM EDT ECG ADULT STAT 08/11/2025 8:29 AM EDT MORPHOLOGY Routine 08/11/2025 1:45 AM EDT CREATINE KINASE, TOTAL, PLASMA Routine 08/11/2025 1:45 AM EDT COMPREHENSIVE METABOLIC PANEL, PLASMA Routine 08/11/2025 1:45 AM EDT PHOSPHORUS, PLASMA Routine 08/11/2025 1:45 AM EDT MAGNESIUM, PLASMA Routine 08/11/2025 1:45 AM EDT CBC WITH AUTO DIFFERENTIAL Routine 08/11/2025 1:45 AM EDT BLOOD GAS PANEL, VENOUS Routine 08/10/2025 7:58 PM EDT BETA HYDROXYBUTYRIC ACID Routine 08/10/2025 7:58 PM EDT PROTHROMBIN TIME(PT) / INR Routine 08/10/2025 11:43 AM EDT COMPREHENSIVE METABOLIC PANEL, PLASMA Timed 08/10/2025 11:43 AM EDT CREATINE KINASE, TOTAL, PLASMA Add-On 08/10/2025 5:52 AM EDT COMPREHENSIVE METABOLIC PANEL, PLASMA Timed 08/10/2025 5:52 AM EDT MORPHOLOGY Routine 08/10/2025 5:51 AM EDT CBC WITH AUTO DIFFERENTIAL Routine 08/10/2025 5:51 AM EDT COMPREHENSIVE METABOLIC PANEL, PLASMA Timed 08/09/2025 11:54 PM EDT PHOSPHORUS, PLASMA Routine 08/09/2025 11:54 PM EDT MAGNESIUM, PLASMA Routine 08/09/2025 11:54 PM EDT XR FOOT RIGHT 3+ VIEWS Routine 5:24 PM EDT VAS US VENOUS DUPLEX LOWER EXTREMITY BILATERAL Routine 08/09/2025 4:09 PM EDT US ABDOMEN DOPPLER COMPLETE Routine 08/09/2025 3:56 PM EDT MORPHOLOGY Routine 08/09/2025 2:42 PM EDT PERIPHERAL BLOOD SMEAR, PATHOLOGIST INTERPRETATION Routine 08/09/2025 2:42 PM EDT PERIPHERAL BLOOD SMEAR, PSMEAR Routine 08/09/2025 2:42 PM EDT BLOOD GAS PANEL, VENOUS Routine 08/09/2025 2:42 PM EDT COMPREHENSIVE METABOLIC PANEL, PLASMA Timed 08/09/2025 2:42 PM EDT STREPTOCOCCUS PNEUMONIAE AND LEGIONELLA URINARY ANTIGEN Routine 08/09/2025 11:58 AM EDT PCCA/DARNELL BY IFA, SERUM Routine 08/09/2025 11:46 AM EDT CYTOPLASMIC PATTERNSO) (SO) Routine 08/09/2025 11:46 AM EDT CREATINE KINASE, TOTAL, PLASMA Add-On 08/09/2025 11:46 AM EDT CYSTATIN C Routine 08/09/2025 11:46 AM EDT HIV 1/2 ANTIBODY/ANTIGEN SCREEN WITH REFLEX TO HIV I/II DIFFERENTIATION Routine 08/09/2025 11:46 AM EDT ALDOLASE Routine 08/09/2025 11:46 AM EDT SCLERODERMA (SCL-70) (PAPA) ANTIBODY, IGG (SO) Routine 08/09/2025 11:46 AM EDT RHEUMATOID FACTOR, PLASMA Routine 08/09/2025 11:46 AM EDT EXTENDED MYOSITIS PANEL(SO) Routine 08/09/2025 11:46 AM EDT ANTINUCLEAR ANTIBODY (BINH) WITH HEP-2 SUBSTRATE, IGG BY IFA (SO) Routine 08/09/2025 11:46 AM EDT WILBERT AMBROSIO VIRUS (EBV) QUANTITATIVE PCR Routine 08/09/2025 11:46 AM EDT CYTOMEGALOVIRUS (CMV) QUANTITATIVE PCR Routine 08/09/2025 11:46 AM EDT DOUBLE-STRANDED DNA (DSDNA) ANTIBODY, IGG BY IFA (SO) Routine 08/09/2025 11:46 AM EDT IRON, PLASMA Routine 08/09/2025 11:46 AM EDT FERRITIN, SERUM Routine 08/09/2025 11:46 AM EDT TISSUE TRANSGLUTAMINASE (TTG) AB, IGA (SO) Routine 08/09/2025 11:46 AM EDT IG PROFILE Routine 08/09/2025 11:46 AM EDT HIV 1/2 ANTIBODY/ANTIGEN SCREEN W/REFLEX TO HIV 1/2 ANTIBODY DIFFERENTIATION Routine 08/09/2025 11:46 AM EDT CERULOPLASMIN Routine 08/09/2025 11:46 AM EDT SMOOTH MUSCLE ANTIBODY, IGG TITER (SO) Routine 08/09/2025 11:46 AM EDT NEURONAL NUCLEAR ANTIBODIES (HU, RI, YO, TR/DNER) IGG BY IMMUNOBLOT, SERUM (SO) Routine 08/09/2025 11:46 AM EDT [id number] (SO) Routine 08/09/2025 11:46 AM EDT COMPREHENSIVE METABOLIC PANEL, PLASMA Timed 08/09/2025 11:46 AM EDT SARS COV-2/COVID-19 BY PCR Routine 08/09/2025 11:45 AM EDT NASOPHARYNGEAL RESPIRATORY PANEL Routine 08/09/2025 11:45 AM EDT BLOOD CULTURE (AEROBIC/ANAEROBIC SET) Routine 08/09/2025 6:31 AM EDT BLOOD CULTURE (AEROBIC/ANAEROBIC SET) Routine 08/09/2025 6:31 AM EDT TSH REFLEX FT4 Add-On 08/09/2025 5:24 AM EDT BASIC METABOLIC PANEL, PLASMA Routine 08/09/2025 5:24 AM EDT URINALYSIS MICROSCOPIC FOR UA REFLEX STAT 08/09/2025 4:12 AM EDT URINE ROBB PANEL STAT 08/09/2025 4:12 AM EDT URINALYSIS WITH REFLEX MICROSCOPIC STAT 08/09/2025 4:12 AM EDT URINALYSIS WITH REFLEX MICROSCOPIC AND CULTURE STAT 08/09/2025 4:12 AM EDT COMPREHENSIVE URINE DRUG SCREENING,QUALITATIVE ASSAY, >= 27 DRUG CLASSES STAT 08/09/2025 3:58 AM EDT C4 COMPLEMENT Add-On 08/09/2025 3:57 AM EDT C3 COMPLEMENT Add-On 08/09/2025 3:57 AM EDT HAPTOGLOBIN, SERUM Add-On 08/09/2025 3:57 AM EDT PHOSPHORUS, PLASMA Add-On 08/09/2025 3:57 AM EDT MAGNESIUM, PLASMA Add-On 08/09/2025 3:57 AM EDT TRIGLYCERIDES, PLASMA STAT 08/09/2025 3:57 AM EDT ACUTE HEPATITIS PANEL STAT 08/09/2025 3:57 AM EDT LACTATE DEHYDROGENASE, PLASMA STAT 08/09/2025 3:57 AM EDT FERRITIN, SERUM STAT 08/09/2025 3:57 AM EDT ACETAMINOPHEN, QUANTATATIVE, PLASMA STAT 08/09/2025 3:57 AM EDT SALICYLATE, QUANTITATIVE, PLASMA STAT 08/09/2025 3:57 AM EDT ECG ADULT STAT 08/09/2025 1:[address] ANGIO CHEST STAT 08/09/2025 1:[address] ANGIO ABDOMEN PELVIS W RUNOFF STAT 08/09/2025 1:17 AM EDT SEDIMENTATION RATE, AUTOMATED STAT Add-on 08/09/2025 12:36 AM EDT C-REACTIVE PROTEIN, PLASMA STAT Add-on 08/09/2025 12:36 AM EDT TYPE AND SCREEN STAT 08/09/2025 12:36 AM EDT CREATINE KINASE, TOTAL, PLASMA STAT 08/09/2025 12:36 AM EDT PROTHROMBIN TIME(PT) / INR STAT 08/09/2025 12:36 AM EDT BLOOD GAS PANEL, VENOUS STAT 08/09/2025 12:36 AM EDT PHOSPHORUS, PLASMA STAT 08/09/2025 12:36 AM EDT COMPREHENSIVE METABOLIC PANEL, PLASMA STAT 08/09/2025 12:36 AM EDT CBC WITH AUTO DIFFERENTIAL STAT 08/09/2025 12:36 AM EDT KS CRITICAL CARE, ADDL 30 MIN Routine 08/08/2025 11:50 PM EDT KS CRITICAL CARE, E/M 30-74 MINUTES Routine 08/08/2025 11:50 PM EDT MAGNESIUM, PLASMA Routine 08/08/2025 9:00 PM EDT COMPREHENSIVE METABOLIC PANEL, PLASMA Routine 08/08/2025 9:00 PM EDT APTT Routine 08/08/2025 9:00 PM EDT PROTHROMBIN TIME(PT) / INR Routine 08/08/2025 9:00 PM EDT CBC W/O DIFFERENTIAL Routine 08/08/2025 9:00 PM EDT METHICILLIN RESISTANT STAPHYLOCOCCUS AUREUS (MRSA) CULTURE Routine 08/08/2025 8:[address] OUTSIDE IMAGES 08/08/2025 1:[address] OUTSIDE IMAGES 08/08/2025 1:[address] ABDOMEN PELVIS W IV CONTRAST 08/08/2025 10:[address] HIP LEFT W IV CONTRAST 08/08/2025 10:23 AM EDT SEDIMENTATION RATE, AUTOMATED Routine 08/08/2025 3:55 AM EDT C-REACTIVE PROTEIN, PLASMA Routine 08/08/2025 3:55 AM EDT CK Routine 08/08/2025 3:55 AM EDT MAGNESIUM, PLASMA Routine 08/08/2025 3:55 AM EDT BASIC METABOLIC PANEL, PLASMA Routine 08/08/2025 3:55 AM EDT PROTHROMBIN TIME(PT) / INR Routine 08/08/2025 3:55 AM EDT CBC W/O DIFFERENTIAL Routine 08/08/2025 3:55 AM EDT PHOSPHORUS, PLASMA Routine 08/08/2025 3:44 AM EDT ECHO, ADULT TRANSTHORACIC LIMITED W/ CONTRAST 08/07/2025 6:38 AM EDT [facility] ([facility]) Routine 08/07/2025 5:05 AM EDT CK Routine 08/07/2025 5:05 AM EDT HEMOGLOBIN A1C Routine 08/07/2025 5:05 AM EDT LIPID PROFILE, PLASMA Routine 08/07/2025 5:05 AM EDT MAGNESIUM, PLASMA Routine 08/07/2025 5:05 AM EDT BASIC METABOLIC PANEL, PLASMA Routine 08/07/2025 5:05 AM EDT PROTHROMBIN TIME(PT) / INR Routine 08/07/2025 5:05 AM EDT CBC W/O DIFFERENTIAL Routine 08/07/2025 5:05 AM EDT MAGNESIUM, PLASMA Routine 08/06/2025 7:50 PM EDT APTT Routine 08/06/2025 1:30 PM EDT PROTHROMBIN TIME(PT) / INR Routine 08/06/2025 1:30 PM EDT MAGNESIUM, PLASMA Routine 08/06/2025 1:22 PM EDT TROPONIN ([facility]) Routine 08/06/2025 1:22 PM EDT PHOSPHORUS, PLASMA Routine 08/06/2025 1:22 PM EDT CK Routine 08/06/2025 1:22 PM EDT XR OUTSIDE IMAGES 08/06/2025 12:26 PM EDT XR ANKLE RIGHT 2 VIEWS 12:23 PM EDT APTT Routine 08/06/2025 10:00 AM EDT PROTHROMBIN TIME(PT) / INR Routine 08/06/2025 10:00 AM EDT TROPONIN ([facility]) Routine 08/06/2025 10:00 AM EDT XR OUTSIDE IMAGES 08/06/2025 9:49 AM EDT XR CHEST 1 VIEW 08/06/2025 9:18 AM EDT COMPREHENSIVE URINE DRUG SCREENING,QUALITATIVE ASSAY, >= 27 DRUG CLASSES Routine 08/06/2025 9:09 AM EDT CBC WITH AUTO DIFFERENTIAL Routine 08/06/2025 7:50 AM EDT TEST QUALITATIVE PLASMA Routine 08/06/2025 7:50 AM EDT ETHYL ALCOHOL PLASMA Routine 08/06/2025 7:50 AM EDT CK Routine 08/06/2025 7:50 AM EDT COMPREHENSIVE METABOLIC PANEL, PLASMA Routine 08/06/2025 7:50 AM EDT TROPONIN ([facility]) Routine 08/06/2025 7:50 AM EDT LACTIC ACID, PLASMA Routine 08/06/2025 7:50 AM EDT N-TERMINAL PROBNP, PLASMA Routine 07/14/2025 12:23 PM EDT Heart failure with preserved ejection fraction, unspecified HF chronicity (CMS/HCC) CBC WITH AUTO DIFFERENTIAL Routine 07/14/2025 12:23 PM EDT Chronic fatigue Essential hypertension BASIC METABOLIC PANEL, PLASMA Routine 07/14/2025 12:23 PM EDT Essential hypertension Pitting edema COLONOSCOPY EXTERNAL RESULT 02/24/2025 from Last 3 Months or Most Recently Relevant to Health Maintenance Results * Type and screen (09/06/2025 10:04 AM EDT) Only the most recent of3 resultswithin the time period is included. Pathologist [facility] ABO/Rh O Negative 09/06/2025 10:30 AM EDT BLOOD BANK Antibody Screen Negative 09/06/2025 10:30 AM EDT BLOOD BANK Specimen Expiration 09/09/2025 23:59 09/06/2025 10:30 AM EDT BLOOD BANK Blood Venous blood specimen / Unknown Venipuncture / Unknown 09/06/2025 10:04 AM EDT 09/06/2025 10:30 AM EDT Tammy Caban MD LAB BLOOD BANK TEST ORDERABLES Final Result Performing Organization Address City/[facility] Co de Phone Number BLOOD BANK [address] [place] [address], * Prepare Leukocyte Reduced RBC: 1 Units, Leukocyte reduced (CMV reduced risk) (09/06/2025 9:11 AM EDT) Only the most recent of2 resultswithin the time period is included. Pathologist [facility] Product Code [id number] BLOO D BANK Dispense Status Transfused BLOOD BANK Blood Expiration Date [id number] BLOOD BANK Unit Number [id number] B LOOD BANK Product Blood Type 9500 BLOOD BANK Blood Type O- BLOOD BANK Crossmatch Compatible BLOOD BANK Other Tammy Caban MD BLOOD BANK PRODUCT ORDERABLES Final Result Performing Organization Address City/[facility] Co de Phone Number BLOOD BANK [address] [place] [address], * POCT glucose meter (09/06/2025 6:48 AM EDT) Only the most recent of62 resultswithin the time period is included. [facility] POCT Glucose 91 74 - 99 mg/dL 09/06/2025 7:23 AM EDT HEALTHCARE LAB Comment:Accuracy of a glucos e result obtained from a capillary whole blood specimen relies upon adequate, non-compromised capillary blood flow. If the capillary glucose result is not consistent with the patient's clinical signs and symptoms, glucose testing should be repeated with either an arterial or venous sample on the glucometer or sent to the main labortory for testing. Comment 09/06/2025 7:23 AM EDT HEALTHCARE LAB [employer] Portal Developer ID Kamryn Rebolledo 09/06/2025 7:23 AM EDT HEALTHCARE LAB Device ID [id number] 09/06/2025 7:23 AM EDT HEALTHCARE LAB Specimen Type POC Capillary 09/06/2025 7:23 AM EDT [facility]ALTH[facility]ARE [facility] Blood Capillary blood specimen / Unknown 09/06/2025 6:48 AM EDT 09/06/2025 7:23 AM EDT us Tammy Caban MD LAB POINT OF CARE TE ST DOCKED DEVICE UNSOLICITED RESULTS Final Result Performing Organization Address City/[facility]/ZIP Co de Phone Number HEALTHCARE LAB [address] [place] [address] * (ABNORMAL) Protime-INR (09/06/2025 3:37 AM EDT) Only the most recent of35 resultswithin the time period is included. Prothrombin Time 30.2(H) 12.0 - 14.3 sec 09/06/2025 4:34 AM EDT [facility]ALTHCARE LAB INR 2.8(H) 0.9 - 1.1 09/06/2025 4:34 AM EDT HEALTHCARE LAB Blood Venous blood specimen / Unknown Venipuncture / Unknown 09/06/2025 3:37 AM EDT 09/06/2025 4:03 AM EDT Narrative [facility] - 09/06/2025 4:34 AM EDT OPTIMAL INR RANGES FOR PATIENT ON ORAL ANTICOAGULANT THERAPY Prevention of venous thromboembolism INR 2.0 to 3.0 In patients with heart disease: Atrial fibrillation INR 2.0 to 3.0 Valvular heart disease INR 2.0 to 3.0 Tissue heart valves INR 2.0 to 3.0 Mechanical prosthetic valves INR 2.5 to 3.5 Prevention of recurrent WI INR 2.5 to 3.5 us Emma Lehman MD LAB BLOOD ORDERABLES Final Resu lt [facility] [address] [place] [address] * (ABNORMAL) CBC and Differential (09/06/2025 3:37 AM EDT) Only the most recent of31 resultswithin the time period is included. WBC Count 5.82 3.70 - 10.30 10*3/uL LAB HEMATOLOGY METHOD 09/06/2025 4:10 AM EDT [facility] RBC Count 2.31(L) 3.90 - 5.20 10*6/uL LAB HEMATOLOGY METHOD 09/06/2025 4:10 AM EDT [facility] HGB 7.0(L) 11.2 - 15.7 g/dL LAB HEMATOLOGY METHOD 09/06/2025 4:10 AM EDT [facility] HCT 23.3(L) 34.0 - 45.0 % LAB HEMATOLOGY METHOD 09/06/2025 4:10 AM EDT [facility] Platelet Count 344 155 - 369 10*3/uL LAB HEMATOLOGY METHOD 09/06/2025 4:10 AM EDT [facility] MCV 101(H) 79 - 98 fL LAB HEMATOLOGY METHOD 09/06/2025 4:10 AM EDT [facility] MCH 30.3 26.0 - 32.0 pg LAB HEMATOLOGY METHOD 09/06/2025 4:10 AM EDT [facility] MCHC 30.0(L) 30.7 - 35.5 g/dL LAB HEMATOLOGY METHOD 09/06/2025 4:10 AM EDT [facility] RDW 16.8(H) 11.5 - 14.5 % LAB HEMATOLOGY METHOD 09/06/2025 4:10 AM EDT [facility] MPV 9.1 8.8 - 12.5 fL LAB HEMATOLOGY METHOD 09/06/2025 4:10 AM EDT [facility] nRBC 0.0 <=0.0 per 100 WBCs LAB HEMATOLOGY METHOD 09/06/2025 4:10 AM EDT [facility] Differential Type Automated LAB HEMATOLOGY METHOD 09/06/2025 4:10 AM EDT [facility] Neutrophils % 53 % LAB HEMATOLOGY METHOD 09/06/2025 4:10 AM EDT [facility]ALTH[facility] Lymphocytes % 33 % LAB HEMATOLOGY METHOD 09/06/2025 4:10 AM EDT [facility] Monocytes % 11 % LAB HEMATOLOGY METHOD 09/06/2025 4:10 AM EDT [facility] Eosinophils % 2 % LAB HEMATOLOGY METHOD 09/06/2025 4:10 AM EDT [facility] Basophils % 0 % LAB HEMATOLOGY METHOD 09/06/2025 4:10 AM EDT [facility] Immature Granulocytes % 1 % LAB HEMATOLOGY METHOD 09/06/2025 4:10 AM EDT [facility] Neutrophils Absolute 3.08 1.60 - 6.10 10*3/uL LAB HEMATOLOGY METHOD 09/06/2025 4:10 AM EDT [facility]ALTH[facility] Lymphocytes Absolute 1.92 1.20 - 3.90 10*3/uL LAB HEMATOLOGY METHOD 09/06/2025 4:10 AM EDT [facility] Monocytes Absolute 0.61 0.30 - 0.90 10*3/uL LAB HEMATOLOGY METHOD 09/06/2025 4:10 AM EDT [facility] Eosinophils Absolute 0.14 0.00 - 0.50 10*3/uL LAB HEMATOLOGY METHOD 09/06/2025 4:10 AM EDT [facility] Basophils Absolute 0.02 0.00 - 0.10 10*3/uL LAB HEMATOLOGY METHOD 09/06/2025 4:10 AM EDT [facility] Immature Granulocytes Absolute 0.05 0.00 - 0.06 10*3/uL LAB HEMATOLOGY METHOD 09/06/2025 4:10 AM EDT [facility] Blood Venous blood specimen / Unknown Venipuncture / Unknown 09/06/2025 3:37 AM EDT 09/06/2025 4:03 AM EDT Narrative [facility]ALTHCARE LAB - 09/06/2025 4:10 AM EDT Therapeutic decision making should be based on absolute values, rather than percentages. us Emma Lehamn MD LAB BLOOD ORDERABLES Final Resu lt [facility] [address] [place] [address] * Phosphorus, Plasma (09/06/2025 3:37 AM EDT) Only the most recent of32 resultswithin the time period is included. Phosphorus, Plasma 4.0 2.5 - 4.5 mg/dL 09/06/2025 4:51 AM EDT [facility] Blood Venous blood specimen / Unknown Venipuncture / Unknown 09/06/2025 3:37 AM EDT 09/06/2025 3:59 AM EDT us Emma Lehman MD LAB BLOOD ORDERABLES Final Resu lt Performing Organization Address [facility] de Phone Number HEALTHCARE LAB [address] [place] [address] * Magnesium, Plasma (09/06/2025 3:37 AM EDT) Only the most recent of34 resultswithin the time period is included. Magnesium, Plasma 1.9 1.9 - 2.4 mg/dL 09/06/2025 4:51 AM EDT [facility] Blood Venous blood specimen / Unknown Venipuncture / Unknown 09/06/2025 3:37 AM EDT 09/06/2025 3:59 AM EDT us Emma Lehman MD LAB BLOOD ORDERABLES Final Resu Performing Organization Address [facility] de Phone Number HEALTHCARE LAB [address] [place] [address] * (ABNORMAL) Comprehensive metabolic panel (09/06/2025 3:37 AM EDT) Only the most recent of35 resultswithin the time period is included. Glucose, Plasma 80 74 - 99 mg/dL 09/06/2025 4:51 AM EDT [facility] BUN, Plasma 4(L) 7 - 21 mg/dL 09/06/2025 4:51 AM EDT [facility]ALTH[facility] Creatinine, Plasma 0.62 0.60 - 1.10 mg/dL 09/06/2025 4:51 AM EDT [facility] BUN/Creatinine Ratio 6 09/06/2025 4:51 AM EDT [facility] Sodium, Plasma 137 136 - 145 mmol/L 09/06/2025 4:51 AM EDT [facility] Potassium, Plasma 3.9 3.6 - 4.9 mmol/L 09/06/2025 4:51 AM EDT [facility] Chloride, Plasma 102 97 - 107 mmol/L 09/06/2025 4:51 AM EDT [facility] CO2, Plasma 26 22 - 29 mmol/L 09/06/2025 4:51 AM EDT [facility] Anion Gap 9 6 - 16 mmol/L 09/06/2025 4:51 AM EDT [facility] Total Calcium, Plasma 8.8(L) 8.9 - 10.2 mg/dL 09/06/2025 4:51 AM EDT [facility] Total Protein 5.7(L) 6.3 - 7.9 g/dL 09/06/2025 4:51 AM EDT [facility] Albumin, Plasma 2.7(L) 3.5 - 5.2 g/dL 09/06/2025 4:51 AM EDT [facility] AST, Plasma 23 10 - 35 U/L 09/06/2025 4:51 AM EDT [facility] Comment:Hemolyzed, result ma y be falsely increased. ALT, Plasma 24 10 - 35 U/L 09/06/2025 4:51 AM EDT [facility] Alkaline Phosphatase, Plasma 88 35 - 104 U/L 09/06/2025 4:51 AM EDT [facility] Total Bilirubin, Plasma 0.3 0.2 - 1.1 mg/dL 09/06/2025 4:51 AM EDT [facility] eGFRcr 110.0 mL/min/1.7 3m*2 09/06/2025 4:51 AM EDT [facility] Comment:Reported eGFRcr in m L/min/1.73m2 is based the CKD-EPI 2020 equation that does not use a race coefficient. Blood Venous blood specimen / Unknown Venipuncture / Unknown 09/06/2025 3:37 AM EDT 09/06/2025 3:59 AM EDT us Emma Lehman MD LAB BLOOD ORDERABLES Final Resu lt [facility] [address] [place] [address] * XR Shoulder Right 2+ Views (08/30/2025 4:55 PM EDT) Anatomical Region Laterality Modality Upper Extremities, Shoulder Right Digi aaliyah Radiography Impressions 08/30/2025 4:56 PM EDT No fracture. CRITICAL RESULT: No. COMMUNICATION: Per this written report. Drafted by Cory Jimenez MD on 08/30/2025 4:56 PM Final report signed by Cory Jimenez MD on 08/30/2025 4:56 PM Narrative 08/30/2025 4:56 PM EDT CLINICAL INDICATION: pain and pop with transfer TECHNIQUE: XR SHOULDER RIGHT 2+ VIEWS COMPARISON: None. FINDINGS: 2 views of the right shoulder show normal acromioclavicular and glenohumeral joint space and alignment. No fracture. Sternal sutures. Adjacent lung and chest wall are otherwise normal. Procedure Note Cory Jimenez MD - 08/30/2025 CLINICAL INDICATION: pain and pop with transfer TECHNIQUE: XR SHOULDER RIGHT 2+ VIEWS COMPARISON: None. FINDINGS: 2 views of the right shoulder show normal acromioclavicular andglenohumeral joint space and alignment. No fracture. Sternal sutures.Adjacent lung and chest wall are otherwise normal. IMPRESSION: No fracture. CRITICAL RESULT: No. COMMUNICATION: Per this written report. Drafted by Cory Jimenez MD on 08/30/2025 4:56 PM Final report signed by Cory Jimenez MD on 08/30/2025 4:56 PM us Annamarie Obando MD IMG XR PROCEDURES Final Resu lt * ECG Adult (08/28/2025 5:11 PM EDT) Only the most recent of5 resultswithin the time period is included. EKG DIAGNOSIS CLASS Borderline Abnormal MUSE ECG Ventricular Rate 82 BPM MUSE ECG Atrial Rate 82 BPM MUSE ECG KS Interval 132 ms MUSE ECG QRSD Interval 76 ms MUSE ECG QT Interval 362 ms MUSE ECG QTC Interval 422 ms MUSE ECG P Au Train 29 degrees MUSE ECG R Au Train 7 degrees MUSE ECG T Wave Au Train 37 degrees MUSE ECG Diagnosis Normal sinus rhythm MUSE ECG Diagnosis Moderate voltage criteria for LVH, may be normal variant ( R in aVL , Jacobo product ) MUSE ECG Diagnosis Borderline ECG MUSE ECG Diagnosis MUSE ECG Diagnosis Confirmed by Michel Brandt ([id number]) on 08/29/2025 11:23:49 AM MUSE ECG 08/28/2025 5:11 PM EDT 08/29/2025 11:23 AM EDT us Annamarie Obando MD ECG ORDERABLES Final Result MUSE ECG * (ABNORMAL) Myositis Antibody Panel (SO) (08/26/2025 3:26 AM EDT) Only the most recent of2 resultswithin the time period is included. Foster/TELEVISION NEWS REPORTER (PAPA) Ab, IgG 3 0 - 19 Units 09/02/2025 2:19 PM EDT [facility] ([employer]) SSA-52 (RO52) (PAPA) Antibody, IgG 130(H) 0 - 40 AU/mL 09/02/2025 2:19 PM EDT [facility] ([employer]) Mulu-1 (Histidyl-tRNA Synthetase) Ab, IgG 3 0 - 40 AU/mL 09/02/2025 2:19 PM EDT [facility] ([employer]) PM/Scl 100 Antibody, IgG Negative Negative 09/02/2025 2:19 PM EDT [facility] ([employer]) WI-2 (NUCLEAR HELICASE PROTEIN) ANTIBODY Negative Negative 09/02/2025 2:19 PM EDT [facility] ([employer]) PL-7 (THREONYL-TRNA SYNTHETASE) ANTIBODY Negative Negative 09/02/2025 2:19 PM EDT [facility] ([employer]) PL-12 (ALANYL-TRNA SYNTHETASE) ANTIBODY Negative Negative 09/02/2025 2:19 PM EDT [facility] ([employer]) P155/140 ANTIBODY Negative Negative 09/02/2025 2:19 PM EDT [facility] ([employer]) EJ (GLYCYL-TRNA SYNTHETASE) ANTIBODY Negative Negative 09/02/2025 2:19 PM EDT [facility] ([employer]) KU ANTIBODY Negative Negative 09/02/2025 2:19 PM EDT [facility] ([employer]) SRP (SIGNAL RECOGNITION PARTICLE) AB Negative Negative 09/02/2025 2:19 PM EDT [facility] ([employer]) OJ (ISOLEUCYL-TRNA SYNTHETASE) ANTIBODY Negative Negative 09/02/2025 2:19 PM EDT [facility] ([employer]) SSA-60 (RO60) (PAPA) Antibody, IgG 1 0 - 40 AU/mL 09/02/2025 2:19 PM EDT [facility] ([employer]) Fibrillarin (U3 TELEVISION NEWS REPORTER) Ab, IgG Negative Negative 09/02/2025 2:19 PM EDT [facility] ([employer]) MYOSITIS PANEL INTERPRETIVE DATA See Note 09/02/2025 2:19 PM EDT [facility] ([employer]) SAE1 (SUMO ACTIVATING ENZYME) AB Negative Negative 09/02/2025 2:19 PM EDT [facility] ([employer]) MDA5 (CADM-140) AB Negative Negative 09/02/2025 2:19 PM EDT [facility] ([employer]) NXP2 (NUCLEAR MATRIX PROTEIN-2) AB Negative Negative 09/02/2025 2:19 PM EDT [facility] ([employer]) TIF-1 GAMMA (155 KDA) AB Negative Negative 09/02/2025 2:19 PM EDT [facility] ([employer]) Anti Nuc Ab Screen <1:80 <1:80 09/02/2025 2:19 PM EDT [facility] ([employer]) BINH INTERPRETIVE COMMENT See Note 09/02/2025 2:19 PM EDT [facility] ([employer]) Smith (tyrosyl-tRNA synthetase) Ab Negative Negative 09/02/2025 2:19 PM EDT [facility] ([employer]) Ks (asparaginyl-tRN A synthetase) Ab Negative Negative 09/02/2025 2:19 PM EDT [facility] ([employer]) Zo (phenylalanyl-tR NA synthetase) Ab Negative Negative 09/02/2025 2:19 PM EDT [facility] ([employer]) HMGCR Antibody Screen Negative Negative 09/02/2025 2:19 PM EDT [facility] ([employer]) Blood Venous blood specimen / Unknown Venipuncture / Unknown 08/26/2025 3:26 AM EDT 08/26/2025 3:35 AM EDT [facility] ([employer]) - 09/02/2025 2:19 PM EDT INTERPRETIVE INFORMATION: Extended Myositis Panel 2 If present, myositis-specific antibodies (MSAs) are specific for myositis, and may be useful in establishing diagnosis as well as prognosis. MSAs are generally regarded as mutually exclusive with rare exceptions; the occurrence of two or more MSAs should be carefully evaluated in the context of patient's clinical presentation. Myositis-associated antibodies (Clif) may be found in patients with CTD including overlap syndromes, and are generally not specific for myositis. The following table will help in identifying the association of any antibodies found as either MSAs or Clif. Antibody Specificity . . . . . . . . . . . . MSAs . . . . Clif SSA 52 (Ro) (PAPA) Antibody IgG . . . . . . . . . . . . . X SSA 60 (Ro) (PAPA) Antibody IgG . . . . . . . . . . . . . X Foster/TELEVISION NEWS REPORTER (PAPA) Ab, IgG . . . . . . . . . . . . . . . . X Mulu-1 (histidyl-tRNA synthetase) Ab, IgG . . X PL-12 (alanyl-tRNA synthetase) Antibody . . X PL-7 (threonyl-tRNA synthetase) Antibody . . X EJ (glycyl-tRNA synthetase) Antibody . . . . X OJ (isoleucyl-tRNA synthetase) Antibody . . X SRP (Signal Recognition Particle) Ab . . . . X Ku Antibody . . . . . . . . . . . . . . . . . . . . . . X PM/SCL 100 Antibody, IgG . . . . . . . . . . . . . . . . X Fibrillarin (U3 TELEVISION NEWS REPORTER) Ab, IgG . . . . . . . . . . . . . . X Mi-2 (nuclear helicase protein) Antibody . . X P155/140 Antibody . . . . . . . . . . . . . X TIF-1 gamma (155 kDa) Ab . . . . . . . . . . X SAE1 (SUMO activating enzyme) Ab . . . . . . X MDA5 (CADM-140) Ab . . . . . . . . . . . . X NXP2 (Nuclear matrix proten-2)Ab . . . . . . X Smith (tyrosyl-tRNA synthetase) Ab. . . . . . . X Ks (asparaginyl-tRNA synthetase) Ab . . . . X Zo (phenylalanyl-tRNA synthetase) Ab . . . . X HMGCR (6-Ybnapdi-2-Methylglutaryl Coenzyme A Reductase) . . . . . . . . X This test was developed and its performance characteristics determined by [employer]. It has not been cleared or approved by the [place] Food and Drug Administration. This test was performed in a CLIA certified laboratory and is intended for clinical purposes. INTERPRETIVE INFORMATION: Mulu-1 Antibody, IgG 29 AU/mL or less.........Negative 30-40 AU/mL..............Equivocal 41 AU/mL or greater......Positive Presence of Mulu-1 (antihistidyl transfer RNA [t-RNA] synthetase) antibody is associated with polymyositis and may also be seen in patients with dermatomyositis. Mulu-1 antibody is associated with pulmonary involvement (interstitial lung disease), Raynaud phenomenon, arthritis, and coin machine mechanic's hands (implicated in antisynthetase syndrome). INTERPRETIVE INFORMATION: Foster/TELEVISION NEWS REPORTER (PAPA) Antibody, IgG 19 Units or Less ............. Negative 20 to 39 Units ............... Weak Positive 40 to 80 Units ............... Moderate Positive 81 Units or greater .......... Strong Positive Foster/TELEVISION NEWS REPORTER antibodies are frequently seen in patients with mixed connective tissue disease (MCTD) and are also associated with other systemic autoimmune rheumatic diseases (SARDs) such as systemic lupus erythematosus (SLE), systemic sclerosis, and myositis. Antibodies targeting the Foster/TELEVISION NEWS REPORTER antigenic complex also recognize Foster antigens, therefore, the Foster antibody response must be considered when interpreting these results. INTERPRETIVE INFORMATION: PM/Scl-100 Antibody, IgG by Immunoblot The presence of PM/Scl-100 IgG antibody along with a positive BINH IFA nucleolar pattern is associated with connective tissue diseases such as polymyositis (PM), dermatomyositis (DM), systemic sclerosis (SSc), and polymyositis/systemic sclerosis overlap syndrome. The clinical relevance of PM/Scl-100 IgG antibody with a negative BINH IFA nucleolar pattern is unknown. PM/Scl-100 is the main target epitope of the PM/Scl complex, although antibodies to other targets not detected by this assay may occur. This test was developed and its performance characteristics determined by [facility]. It has not been cleared or approved by the [place] Food and Drug Administration. This test was performed in a CLIA certified laboratory and is intended for clinical purposes. INTERPRETIVE INFORMATION: SSA-52 (Ro52) (PAPA) Antibody, IgG 29 AU/mL or Less ............. Negative 30 - 40 AU/mL ................ Equivocal 41 AU/mL or Greater .......... Positive SSA-52 (Ro52) and/or SSA-60 (Ro60) antibodies are associated with a diagnosis of Sjogren syndrome, systemic lupus erythematosus (SLE), and systemic sclerosis. SSA-52 antibody overlaps significantly with the major SSc-related antibodies. SSA-52 (Ro52) antibody occurs frequently in patients with inflammatory myopathies, often in the presence of interstitial lung disease. REFERENCE INTERVAL: SSA-60 (Ro60) (PAPA) Antibody, IgG 29 AU/mL or Less ............. Negative 30 - 40 AU/mL ................ Equivocal 41 AU/mL or Greater .......... Positive Interpretive Information: Fibrillarin (U3 TELE[employer]ION [employer] REPORTER) Antibody, IgG The presence of fibrillarin (U3-TELEVISION NEWS REPORTER) IgG antibodies in association with an BINH IFA nucleolar pattern is suggestive of systemic sclerosis (SSc). In SSc, these antibodies are associated with distinct clinical features, such as younger age at disease onset, frequent internal organ involvement (pulmonary hypertension, myositis and renal disease). Fibrillarin antibodies are detected more frequently in patients with SSc compared to other ethnic groups. Strong correlation with BINH IFA results is recommended. In a multi-ethnic cohort of SSc patients (n=98), U3-TELEVISION NEWS REPORTER antibodies detected by immunoblot had an agreement of 98.9 percent with the gold standard immunoprecipitation (IP) assay. Approximately 71 percent (5/7) of the borderline U3-TELEVISION NEWS REPORTER results with BINH nucleolar pattern in this cohort were IP negative. This test was developed and its performance characteristics determined by [facility]. It has not been cleared or approved by the US Food and Drug Administration. This test was performed in a CLIA certified laboratory and is intended for clinical purposes. Clinical Interpretation: Antinuclear antibodies by IFA negative for homogeneous, speckled, nucleolar, centromere, and nuclear dots patterns. Cytoplasmic reticular/AMA pattern Clinical Associations: PBC, SSc, PBC-SSc overlap syndrome, and PBC-SjS overlap syndrome Main autoantibodies: Anti-mitochondrial antibody List of Abbreviations Antimitochondrial antibodies (AMA), Antisynthetase syndrome (ARS), chronic active hepatitis (CAH), inflammatory myopathies (IM) [dermatomyositis (DM), polymyositis (PM), necrotizing autoimmune myopathy (NAM)], interstitial lung disease (ILD), juvenile idiopathic arthritis (JORI), mixed connective tissue disease (MCTD), primary biliary cholangitis (PBC), rheumatoid arthritis (RA), systemic autoimmune rheumatic diseases (SARD), Sjogren syndrome (SjS), systemic lupus erythematosus (SLE), systemic sclerosis (SSc), undifferentiated connective tissue disease (UCTD). INTERPRETIVE INFORMATION: BINH Interpretive Comment Presence of antinuclear antibodies (BINH) is a hallmark feature of systemic autoimmune rheumatic diseases (SARD). However, BINH lacks diagnostic specificity and is associated with a variety of diseases (cancers, autoimmune, infectious, and inflammatory conditions) and may also occur in healthy individuals in varying prevalence. The lack of diagnostic specificity requires confirmation of positive BINH by more specific serologic tests. BINH (nuclear reactivity) positive patterns reported include centromere, homogeneous, nuclear dots, nucleolar, or speckled. BINH (cytoplasmic reactivity) positive patterns reported include reticular/AMA, discrete/GW body-like, polar/golgi-like, cytoplasmic speckled or rods and rings. All positive patterns are reported to endpoint titers (1:2560). Reported patterns may help guide differential diagnosis, although they may not be specific for individual antibodies or diseases. Mitotic staining patterns not reported. Negative results do not necessarily rule out SARD. Clinical Interpretation: Smith antibody negative by line immunoassay. No band corresponding to 65 kDa observed by immunoprecipitation. Clinical Interpretation: Ks antibody negative by line immunoassay. No band corresponding to 65 kDa observed by immunoprecipitation. Clinical Interpretation: Zo antibody negative by line immunoassay. No bands corresponding to 68 and 58 kDa observed by immunoprecipitation. HMGCR Antibody, IgG is Negative. No further testing will be performed. Performed By: [facility] [address] [place] [id number] Analysis Analyst: Esvin Pat MD, PhD CLIA Number: [id number] Stacie Brown MD LAB BLOOD ORDERABLES Final Result Performing Organization Address [facility]/ZIP Co de Phone Number [facility] ([facility]) [address] [place] [address] * (ABNORMAL) Cytoplasmic Pattern (08/26/2025 3:26 AM EDT) Only the most recent of2 resultswithin the time period is included. Cytoplasm Pattern AMA(A) 08/31/2025 11:48 PM EDT [facility] ([facility]) Cytoplasmic Titer 1:80(A) 08/31/2025 11:48 PM EDT [facility] ([employer]) Blood Venous blood specimen / Unknown Venipuncture / Unknown 08/26/2025 3:26 AM EDT 08/26/2025 3:35 AM EDT Narrative [facility]) - 08/31/2025 11:48 PM EDT Performed By: [facility] [address] [place] [address] Analysis Analyst: Esvin Pat MD, PhD CLIA Number: [id number] Stacie Brown MD LAB BLOOD ORDERABLES Final Result Performing Organization Address [facility] de Phone Number [facility] ([facility] [address] [place] [address] * (ABNORMAL) Anti-smooth muscle antibody, IgG (08/26/2025 3:26 AM EDT) Only the most recent of2 resultswithin the time period is included. Smooth Muscle Ab, IgG Titer 1:160(H) <1:20 08/28/2025 10:40 PM EDT [facility] ([employer]) Blood Venous blood specimen / Unknown Venipuncture / Unknown 08/26/2025 3:26 AM EDT 08/26/2025 3:35 AM EDT Narrative [facility] ([employer]) - 08/28/2025 10:40 PM EDT INTERPRETIVE INFORMATION: Smooth Muscle Ab, IgG Titer Less than 1:20 ........ Negative - No antibody detected. 1:20 - 1:80 .......... Weak Positive - Suggest repeat in two to three weeks with fresh specimen. 1:160 or greater ...... Positive - Suggestive of autoimmune hepatitis or chronic active hepatitis. Performed By: [facility] [address] [place] [address] Analysis Analyst: Esvin Pat MD, PhD CLIA Number: [id number] us Stacie Brown MD LAB BLOOD ORDERABLES Final Result [facility] ([facility]) [address] [place] [address] * [place] Modified Barium Swallow (08/22/2025 12:21 PM EDT) Only the most recent of2 resultswithin the time period is included. Anatomical Region Laterality Modality Esophagus, stomach and duodenum Radiographic Imaging Impressions 08/22/2025 4:06 PM EDT Intermittent penetration and aspiration of thin barium. Please see separate note by Speech therapy team for dietary recommendations. CRITICAL RESULT: No. COMMUNICATION: Per this written report. By electronically signing this report, I, the attending physician, attest that I have personally reviewed the images/data for the above examination(s) and agree with the final edited report. Drafted by Sukhwinder Martin MD on 08/22/2025 2:01 PM Final report signed by Crow Redding MD on 08/22/2025 4:06 PM Narrative 08/22/2025 4:06 PM EDT CLINICAL INDICATION: dysphagia TECHNIQUE: Modified barium swallow was performed utilizing video fluoroscopy in conjunction with the Speech Pathology team. The patient ingested barium media of varying consistencies. Fluoroscopy Time: 1 minute. COMPARISON: 08/15/2025 modified barium swallow FINDINGS: Swallowing: Penetration of thin barium ingested via spoon. No penetration or aspiration of thin barium ingested via cup. Isolated episode of aspiration of thin barium ingested via straw. No penetration or aspiration of pudding and cracker consistency barium. Other: Absent dentition. Nasoenteric tubing coursing through the expected location within the [id number]. Procedure Note Crow Redding MD - 08/22/2025 CLINICAL INDICATION: dysphagia TECHNIQUE: Modified barium swallow was performed utilizing video fluoroscopy inconjunction with the Speech Pathology team. The patient ingested bariummedia of varying consistencies. Fluoroscopy Time: 1 minute. COMPARISON: 08/15/2025 modified barium swallow FINDINGS: Swallowing: Penetration of thin barium ingested via spoon. No penetrationor aspiration of thin barium ingested via cup. Isolated episode ofaspiration of thin barium ingested via straw. No penetration or aspirationof pudding and cracker consistency barium. Other: Absent dentition. Nasoenteric tubing coursing through the expectedlocation within the [id number]. IMPRESSION: Intermittent penetration and aspiration of thin barium. Please see separate note by Speech therapy team for dietaryrecommendations. CRITICAL RESULT: No. COMMUNICATION: Per this written report. By electronically signing this report, I, the attending physician, attestthat I have personally reviewed the images/data for the aboveexamination(s) and agree with the final edited report. Drafted by Sukhwinder Martin MD on 08/22/2025 2:01 PM Final report signed by Crow Redding MD on 08/22/2025 4:06 PM us Stacie Brown MD IMG FLUOROSCOPY PROCEDURES Final Result * (ABNORMAL) Creatine Kinase (CK), Total (08/22/2025 3:18 AM EDT) Only the most recent of15 resultswithin the time period is included. Creatine Kinase, Plasma 175(H) 37 - 168 U/L 08/22/2025 4:00 AM EDT [facility] Blood Venous blood specimen / Unknown Venipuncture / Unknown 08/22/2025 3:18 AM EDT 08/22/2025 3:36 AM EDT us Emma Lehman MD LAB BLOOD ORDERABLES Final Resu lt [facility] [address] [place] [address] * XR Chest 1 View (08/21/2025 6:13 PM EDT) Only the most recent of5 resultswithin the time period is included. Anatomical Region Laterality Modality Chest Digital Radiogra phy Impressions 08/21/2025 7:05 PM EDT Increased vascular congestion. Persistent bilateral pleural effusions and lower lobe opacities CRITICAL RESULT: No COMMUNICATION: Per this written report. Drafted by Radha Mcmahon MD on 08/21/2025 7:04 PM Final report signed by Radha Mcmahon MD on 08/21/2025 7:05 PM Narrative 08/21/2025 7:05 PM EDT CLINICAL INDICATION: Shortness of breath TECHNIQUE: XR CHEST 1 VIEW COMPARISON: 08/19/2025 FINDINGS: The cardiomediastinal silhouette is stable. Increased vascular congestion. Persistent bilateral pleural effusions and lower lobe opacities. Procedure Note Radha Mcmahon MD - 08/21/2025 CLINICAL INDICATION: Shortness of breath TECHNIQUE: XR CHEST 1 VIEW COMPARISON: 08/19/2025 FINDINGS: The cardiomediastinal silhouette is stable. Increased vascular congestion.Persistent bilateral pleural effusions and lower lobe opacities. IMPRESSION: Increased vascular congestion. Persistent bilateral pleural effusions andlower lobe opacities CRITICAL RESULT: No COMMUNICATION: Per this written report. Drafted by Radha Mcmahon MD on 08/21/2025 7:04 PM Final report signed by Radha Mcmahon MD on 08/21/2025 7:05 PM us Stacie Brown MD IMG XR PROCEDURES Final Re sult * Surgical Pathology Exam (08/21/2025 3:25 PM EDT) Case Report Surgical Pathology Case: [id number] Authorizing Provider: Carla Montes MD Collected: 08/21/2025 1525 Ordering Location: [facility] Operating Room Received: 08/22/2025 0636 Pathologist: Jumana Beck MD Specimens: A) - Leg, Right, right thigh muscle biopsy/1 piece fresh, 1 piece placed in formalin, 1 piece placed in Glutaraldehyde B) - Foot, Right, right foot skin biopsy 7:28 PM EDT [facility] Final Diagnosis A. SKELETAL MUSCLE, RIGHT THIGH, BIOPSY: - EXTENSIVE DEGENERATING AND REGENERATING FIBERS WITH SCATTERED MACROPHAGES - SEE COMMENT AND TEMPLATE B. PER DR. ECHEVERRIA, [id number]: RIGHT FOOT: - EPIDERMAL NECROSIS AND CRUSTING (SEE COMMENT). 5 7:28 PM EDT [facility] at 1928 EDT Comment Comment A (Muscle Biopsy): Sections show widespread degenerating and regenerating muscle fibers. Macrophages are highlighted by CD68 stain and are associated with these fibers. However, minimal lymphocytic inflammation is noted on either H&E or immunostains. Vasculitis is not present. If steroids were given prior to muscle biopsy, this might mute the inflammatory response seen on the slides. However, the features of a true inflammatory myopathy (dermatomyositis, polymyositis, or inclusion body myositis) are not seen. These findings seem more in line with recovery from her rhabdomyolysis. The etiology of the muscle biopsy findings is not clear. The history of both coxsackie B and anti-yo antibodies is noted. Viral infections, such as Coxsackie virus, can cause a necrotizing myositis. Anti-yo antibodies are typically associated with paraneoplastic syndromes and ataxia, with loss of Purkinje cells within the cerebellum. A myositis is not routinely associated with this antibody. Such findings could also be caused by a toxic myopathy, often induced by medications such as statins. Additional autoimmune and paraneoplastic testing is currently pending. Correlation with those results, in addition to the patient's medication list, is strongly suggested. Comment B (Skin Biopsy): Vasculitis is not seen. Interface change is not seen. Changes to suggest an infectious process are not seen. The skin biopsy reflects the expert opinion of Dr. Nader Echeverria. Dr. Echeverria's entire consultation report ([id number]) can be viewed as a scanned document in [employer]. 5 7:28 PM EDT [facility] Clinical Information Non-traumatic rhabdomyolysis [M62.82] Clinical History Per electronic medical record, the clinical history is significant for: ....severe myositis, rhabdo, and dysphagia. MRI confirmed bilateral lower extremity myositis. She's anti-Yo positive, but NXP2, SRP, and HMGCR are negative. She also has tested positive for Coxsackie B3, which can directly cause viral myositis or act as a trigger for necrotizing autoimmune myopathy. Her muscle biopsy was performed yesterday (08/21) along with LP. LP showed no meningitis, and autoimmune/parane oplastic CSF studies are pending result. Differentials include seronegative necrotizing autoimmune myopathy, polymyositis/ dermatomyositis, Viral myositis in setting of positive Coxsackie B3, and paraneoplastic myositis w/ positive anti-Yo... Laboratory Findings Abnormal: Elevated CK levels Date CK Level (U/L) 08/06/2025 12,202 08/07/2025 23,744 08/08/2025 87,872 08/09/2025 97,720 08/10/2025 54,530 08/11/2025 30,310 08/12/2025 16,042 08/13/2025 12,723 08/14/2025 13,030 08/15/2025 15,164 2025 13,534 08/17/2025 10,317 08/18/2025 3,082 08/19/2025 946 08/20/2025 370 08/21/2025 * 205 08/22/2025 175 * Date of biopsy Also positive: - Purkinje cell antibody (anti-Yo), high level - Anti-smooth muscle antibody, 1:1280 - SSA-52 (RO52, PAPA) on myositis antibody panel - Coxsackie Type B3 titer, 1:160 - Other increased labs include CRP (148.4 mg/L; normal <8), ESR (72; normal <20), LDH (3210 U/L; normal 116-250), aldolase (219 U/L; normal 1.2-7.6) Within normal limits: anti-ds DNA, CMV, EBV, RF, SCL-70, HMGCR, meningitis/enceph alitis panel, anti-TR/NER, anti-Ri, anti-Hu Pending: autoimmune/parane oplastic panel Imaging MRI left tibia/fibula (08/15/25): ...Incomplete examination. Within the limitation of the examination, there is T2 hyperintense signal throughout the visualized musculature, which could be concerning for myositis. There is blistering of the ankles and feet. Diffuse subcutaneous edema.... MRI right tibia/fibula (08/15/25): ...Incomplete examination. Within the limitation of the examination, there is T2 hyperintense signal throughout the visualized musculature, which could be concerning for myositis. There is blistering of the ankles and feet. Diffuse subcutaneous edema.... 5 7:28 PM EDT [facility] Microscopic Description Skeletal Muscle Template Cryostat sections are examined with H&E, trichrome, PAS, and KAMILLE stains and with routine ATPase (pH 9.4) and NADH-TR reactions. Routinely processed sections are examined with H&E stain. Histologic findings of note include: Fiber atrophy - random: yes frequent rounded fibers - small-group: no - large-group: no Pyknotic nuclear clumps: no Necrotic fibers/ phagocytosis of fibers: necrotic fibers with macrophages (highlighted on CD68 stain) Regenerating fibers: extensive Cytoarchitectural abnormalities (H&E/ trichrome stain / oxidative-enzyme reaction [NADH-TR] ) Rimmed vacuoles: no Features suggestive of mitochondrial abnormalities: no Central cores: no Target fibers: no Others: no Hypertrophied fibers: no Increased central nuclei: no Split fibers: no Fibrosis: no Inflammation: no Adipose ingrowth: no Fiber-type disproportion:no Type-selective atrophy: no Type-grouping: no Excessive sarcoplasmic glycogen: no Excessive sarcoplasmic lipid: no This service has been rendered in part by a resident. A pathologist has personally reviewed the slides/tissue and has rendered and is responsible for the diagnosis that appears on the report. Skin biopsy Description: PER DR. ECHEVERRIA, [id number]: The epidermis is necrotic and crusted. Vasculitis is not seen. Interface change is not conspicuous. The dermis demonstrates loose fibrosis but marked inflammation is not seen. 5 7:28 PM EDT [facility] Special and Immunohistochemical Stains Special Stain: A1-2 Modified Gomori Trichrome A1-3 PAS A1-4 Oil Red O A1-5 ATP - Adenosine Triphophatase A1-6 NADH Tetrazolium Reductase IHC: A2-2 CD3: highlights very rare reactive T cells A2-3 CD20: negative A2-4 [id number]: highlights scattered macrophages within myocytes All controls show appropriate reactivity. All immunohistochemis try, in situ hybridization, and histochemical tests were developed by and are performed at the [facility], [address] [place] [address], [place] [address]. All tests reported here, except those addressing HER2 (breast) and PD-L1 expression as predictive markers, have not been cleared by or approved by the US Food and Drug Administration (FDA). The FDA has determined that such clearance or approval is not necessary. The laboratory is regulated under CLIA as qualified to perform high-complexity testing. The tests are used for clinical purposes. They should not be regarded as investigational or for research. This assay has not been validated on decalcified tissues. Results should be interpreted with caution given the likelihood of false negativity on decalcified specimens. 7:28 PM EDT [facility] Gross Description A. RIGHT THIGH MUSCLE BIOPSY/1 PIECE FRESH, 1 PIECE PLACED IN FORMALIN, 1 PIECE PLACED IN GLUTARALDEHYDE Received in formalin labeled right thigh muscle biopsy is 1 pink-red portion of muscle attached to a wooden dowel measuring 3.1 x 0.8 x 0.7 cm. The specimen is bisected with one half longitudinally sectioned and entirely submitted in cassette A2, and the other half transversely sectioned and entirely submitted in cassette A3. Cold Time: <1m Lizzette B Pettey B. RIGHT FOOT SKIN BIOPSY Received in formalin labeled r ight foot skin biopsy , are 2 white-bhatt skin punches that range from 0.4-0.5 cm in greatest dimension. Entirely submitted in cassette B1. Cold Time: <1m Lizzette B Pettey 7:28 PM EDT [facility] Note: A resident was involved in the service. I attest I examined the relevant preparations for the specimens and confirmed the diagnosis or interpretation. 7:28 PM EDT [facility] Tissue Structure of right lower limb / Unknown 08/21/2025 3:25 PM EDT 08/22/2025 6:36 AM EDT Comment:Pre-op diagnosis: Non-traumatic rhabdomyolysis [M62.82] See patient record for ss, history, etc. Skin (tissue) specimen (specimen) Structure of right foot / Unknown 08/21/2025 3:48 PM EDT 08/22/2025 7:39 AM EDT Comment:Pre-op diagnosis: Non-traumatic rhabdomyolysis [M62.82] See patient record for ss, history, etc. Result [facility] Carla Montes MD LAB PATHOLOGY ORDERABLES Final Result [facility] [address] [place] [address] * PERIPHERAL IV (SMARTFORM LINK) (08/21/2025 1:25 PM EDT) Only the most recent of2 resultswithin the time period is included. Narrative Patito Vasquez RN - 08/21/2025 1:25 PM EDT Patito Vasquez RN 08/21/2025 1:26 PM Insert peripheral IV Performed by: Patito Vasquez RN Authorized by: Stacie Brown MD Hand hygiene: Hand hygiene performed prior to insertion Inserted using aseptic techniques: Yes Preparation: Skin prepped with chg Orientation: Left and upper (cephalic) Location: Arm Catheter placed: Peripheral IV Catheter size: 20g/2.00in Line Technique: Ultrasound Guidance Number of attempts: 1 IV flushes: Without difficulty and positive blood return noted and IV luer locked Patient tolerance: Patient tolerated the procedure well and there were no complications IV site covered with: Transparent semipermeable dressing Comments: Pt has dependent edema and blistering to bilateral arms Multiple labs obtained from site, labeled, collected in epic and delivered to lab. Result [facility] Stacie Brown MD IV THERAPY ORDERABLES Rosa Maria l Result * Ionized calcium, whole blood (08/21/2025 12:12 PM EDT) Only the most recent of4 resultswithin the time period is included. Ionized Calcium, Whole Blood 5.0 4.6 - 5.1 mg/dL LAB HEMATOLOGY METHOD 08/21/2025 12:25 PM EDT [facility] Blood Venous blood specimen / Unknown Venipuncture / Unknown 08/21/2025 12:12 PM EDT 08/21/2025 12:23 PM EDT Result [facility] Yeni A Landis [employer] LAB BLOOD ORDERABLES Rosa Maria l Result [facility] [address] [place] [address] * Encephalopathy, Autoimm/Paraneo, Serum (SO) (08/21/2025 12:12 PM EDT) AMPA-R Ab CBA, S Negative Negative 08/29/20 25 9:16 AM EDT [facility] ([facility]) Comment: ADDITIONAL INFORMATION This test was developed and its performance characteristics determined by [facility] in a manner consistent with CLIA requirements. This test has not been cleared or approved by the U.S. Food and Drug Administration. Amphiphysin Ab, S Negative Negative 025 9:16 AM EDT [facility] ([facility]) Comment: ADDITIONAL INFORMATION This test was developed and its performance characteristics determined by [facility] in a manner consistent with CLIA requirements. This test has not been cleared or approved by the U.S. Food and Drug Administration. AGNA-1, S Negative Negative 08/29/2025 9:16 AM EDT [facility] ([facility]) Comment: ADDITIONAL INFORMATION This test was developed and its performance characteristics determined by [facility] in a manner consistent with CLIA requirements. This test has not been cleared or approved by the U.S. Food and Drug Administration. DARNELL-1, S Negative Negative 08/29/2025 9:16 AM EDT [facility] ([facility]) Comment: ADDITIONAL INFORMATION This test was developed and its performance characteristics determined by [facility] in a manner consistent with CLIA requirements. This test has not been cleared or approved by the U.S. Food and Drug Administration. DARNELL-2, S Negative Negative 08/29/2025 9:16 AM EDT [facility] ([facility]) Comment: ADDITIONAL INFORMATION This test was developed and its performance characteristics determined by [facility] in a manner consistent with CLIA requirements. This test has not been cleared or approved by the U.S. Food and Drug Administration. DARNELL-3, S Negative Negative 08/29/2025 9:16 AM EDT [facility] ([facility]) Comment: ADDITIONAL INFORMATION This test was developed and its performance characteristics determined by [facility] in a manner consistent with CLIA requirements. This test has not been cleared or approved by the U.S. Food and Drug Administration. CASPR2-IgG CBA, S Negative Negative 9:16 AM EDT [facility] Comment: ADDITIONAL INFORMATION This test was developed and its performance characteristics determined by [facility] in a manner consistent with CLIA requirements. This test has not been cleared or approved by the U.S. Food and Drug Administration. CRMP-5-IgG, S Negative Negative 08/29/2025 9:16 AM EDT [facility] Comment: ADDITIONAL INFORMATION This test was developed and its performance characteristics determined by [facility] in a manner consistent with CLIA requirements. This test has not been cleared or approved by the U.S. Food and Drug Administration. KAT-B-R Ab CBA, S Negative Negative 2024 9:16 AM EDT [facility] Comment: ADDITIONAL INFORMATION This test was developed and its performance characteristics determined by [facility] in a manner consistent with CLIA requirements. This test has not been cleared or approved by the U.S. Food and Drug Administration. GAD65 Ab Assay, S 0.00 <=0.02 nmol/L 08/29/2025 9:16 AM EDT [facility] ([facility]) Comment: ADDITIONAL INFORMATION This test was developed and its performance characteristics determined by [facility] in a manner consistent with CLIA requirements. This test has not been cleared or approved by the U.S. Food and Drug Administration. LGI1-IgG CBA, S Negative Negative 9:16 AM EDT [facility] ([facility]) Comment: ADDITIONAL INFORMATION This test was developed and its performance characteristics determined by [facility] in a manner consistent with CLIA requirements. This test has not been cleared or approved by the U.S. Food and Drug Administration. mGluR1 Ab IFA, S Negative Negative 08/29/20 9:16 AM EDT [facility] ([facility]) Comment: ADDITIONAL INFORMATION This test was developed and its performance characteristics determined by [facility] in a manner consistent with CLIA requirements. This test has not been cleared or approved by the U.S. Food and Drug Administration. NMDA-R Ab CBA, S Negative Negative 08/29/20 9:16 AM EDT [facility] ([facility]) Comment: ADDITIONAL INFORMATION This test was developed and its performance characteristics determined by [facility] in a manner consistent with CLIA requirements. This test has not been cleared or approved by the U.S. Food and Drug Administration. BALANCE RECESSER-1, S Negative Negative 08/29/2025 9:16 AM EDT [facility] ([facility]) Comment: ADDITIONAL INFORMATION This test was developed and its performance characteristics determined by [facility] in a manner consistent with CLIA requirements. This test has not been cleared or approved by the U.S. Food and Drug Administration. BALANCE RECESSER-2, S Negative Negative 08/29/2025 9:16 AM EDT [facility] ([facility]) Comment: ADDITIONAL INFORMATION This test was developed and its performance characteristics determined by [facility] in a manner consistent with CLIA requirements. This test has not been cleared or approved by the U.S. Food and Drug Administration. BALANCE RECESSER-Tr, S Negative Negative 08/29/2025 9:16 AM EDT [facility] ([facility]) Comment: ADDITIONAL INFORMATION This test was developed and its performance characteristics determined by [facility] in a manner consistent with CLIA requirements. This test has not been cleared or approved by the U.S. Food and Drug Administration. GFAP IFA, S Negative Negative 08/29/2025 9:16 AM EDT [facility] ([facility]) Comment: ADDITIONAL INFORMATION This test was developed and its performance characteristics determined by [facility] in a manner consistent with CLIA requirements. This test has not been cleared or approved by the U.S. Food and Drug Administration. NIF IFA, S Negative Negative 08/29/2025 9:16 AM EDT [facility] ([facility]) Comment: ADDITIONAL INFORMATION This test was developed and its performance characteristics determined by [facility] in a manner consistent with CLIA requirements. This test has not been cleared or approved by the U.S. Food and Drug Administration. Neurochondrin IFA, S Negative Negative 08/29/2025 9:16 AM EDT [facility] ([facility]) Comment: ADDITIONAL INFORMATION This test was developed and its performance characteristics determined by [facility] in a manner consistent with CLIA requirements. This test has not been cleared or approved by the U.S. Food and Drug Administration. SEPTIN-7 IFA, S Negative Negative 9:16 AM EDT [facility] ([facility]) Comment: ADDITIONAL INFORMATION This test was developed and its performance characteristics determined by [facility] in a manner consistent with CLIA requirements. This test has not been cleared or approved by the U.S. Food and Drug Administration. IFA Notes None. 08/29/2025 9:16 AM EDT [facility] ([facility]) Encephalopathy, Interpretation, S SEE COMMENTS 08/29/2025 9:16 AM T [facility] ([facility]) Comment: No informative autoantibodies were detected in this evaluation. However, a negative result does not exclude autoimmune encephalopathy, idiopathic or paraneoplastic. Sensitivity and specificity of antibody testing are enhanced by testing both serum and CSF. DPPX Ab CBA, S Negative Negative 08/29/2025 9:16 AM EDT [facility] ([facility]) Comment: ADDITIONAL INFORMATION This test was developed and its performance characteristics determined by [facility] in a manner consistent with CLIA requirements. This test has not been cleared or approved by the U.S. Food and Drug Administration. IgLON5 CBA, S Negative Negative 08/29/2025 9:16 AM EDT [facility] ([facility]) Comment: ADDITIONAL INFORMATION This test was developed and its performance characteristics determined by [facility] in a manner consistent with CLIA requirements. This test has not been cleared or approved by the U.S. Food and Drug Administration. PDE10A Ab IFA, S Negative Negative 08/29/20 9:16 AM EDT [facility] ([facility]) Comment: ADDITIONAL INFORMATION This test was developed and its performance characteristics determined by [facility] in a manner consistent with CLIA requirements. This test has not been cleared or approved by the U.S. Food and Drug Administration. TRIM46 Ab IFA, S Negative Negative 08/29/20 9:16 AM EDT [facility] ([facility]) Comment: ADDITIONAL INFORMATION This test was developed and its performance characteristics determined by [facility] in a manner consistent with CLIA requirements. This test has not been cleared or approved by the U.S. Food and Drug Administration. Test Performed by: [place] [address] Marine Reporter: Gerber Noel Ph.D.; CLIA# [id number] Blood Venous blood specimen / Unknown Venipuncture / Unknown 08/21/2025 12:12 PM EDT 08/21/2025 12:22 PM EDT us Stacie Brown MD LAB BLOOD ORDERABLES Final Result [facility] ([facility]) * IR Lumbar Puncture (08/21/2025 10:42 AM EDT) Anatomical Region Laterality Modality Spine, L-spine X-Ray Angiograph y Impressions 08/22/2025 1:16 PM EDT Technically successful diagnostic lumbar puncture under fluoroscopic guidance. COMMUNICATION: Per this written report. Preliminary report signed by Emma Lebron on 08/21/2025 1:59 PM By electronically signing this report, I, the attending physician, attest that I was not present for the procedure(s) but agree with the final edited report. Drafted by Emma Lebron on 08/21/2025 1:54 PM Final report signed by Jimi Palacios MD on 08/22/2025 1:16 PM Narrative 08/22/2025 1:16 PM EDT Diagnostic Lumbar Puncture Under Fluoroscopic Guidance CLINICAL INDICATION: This is a 50 years old Female presenting with sepsis/bacteremia, rhabdomyolysis and generalized weakness. A diagnostic lumbar puncture under fluoroscopic guidance was requested. PRE-OP EVALUATION: The patient's preoperative neurological exam demonstrated the following findings: She is alert and oriented. DATE: 08/21/2025 10:32 AM COMPARISON: MR head reviewed from 08/19/2025. PHOTO MACHINE OPERATOR: Emma Lebron PA-C [employer]OND[employer]ISHING [employer] SUPERVISOR: RT Rowan CONTRAST: 0 cc MEDICATIONS: 1% buffered Lidocaine (local) PROCEDURE TIME: 10 minutes FLUORO TIME: 0.6 minutes FLUORO DOSE: 12.22 mGy TECHNIQUE: The procedure was explained in its entirety to the patient by the radiology team prior to transport to the neuroangiography suite. This included a discussion of the risks, benefits, and alternatives to lumbar puncture. Risks discussed included nerve root injury, low-pressure headache, pain, bleeding, and infection. The patient gave both verbal and written consent to proceed. Timeout was done at the beginning the procedure. Strict hand hygiene protocol was observed. All personnel in the room were attired in surgical hat and mask. The operators were in surgical hat, mask, sterile gown, and sterile gloves. The patient was placed lateral on the fluoroscopy table. The access site was prepped and draped in the standard sterile fashion with iodine. The L3-4 interspace was identified on fluoroscopy. Lidocaine was infiltrated into the skin and soft tissue. A 20-gauge Touhy needle was advanced into the thecal sac. Spontaneous CSF flow was obtained and 16 cc of clear CSF were obtained and sent for testing. Opening pressure was 19 cm water and closing pressure was 11 cm water. The inner trocar of the needle was re-introduced, and the needle was removed. The patient tolerated the procedure without complication. FINDINGS: Technically successful diagnostic lumbar puncture at L3-4 with return of clear and colorless CSF. Procedure Note Jimi Palacios MD - 08/22/2025 Diagnostic Lumbar Puncture Under Fluoroscopic Guidance CLINICAL INDICATION: This is a 50 years old Female presenting withsepsis/bacteremia, rhabdomyolysis and generalized weakness. A diagnosticlumbar puncture under fluoroscopic guidance was requested. PRE-OP EVALUATION: The patient's preoperative neurological examdemonstrated the following findings: She is alert and oriented. DATE: 08/21/2025 10:32 AM COMPARISON: MR head reviewed from 08/19/2025. PHOTO MACHINE OPERATOR: Emma Lebron PA-C [employer]ONDARY FINISHING DEPARTMENT SUPERVISOR: RT Rowan CONTRAST: 0 cc MEDICATIONS: 1% buffered Lidocaine (local) PROCEDURE TIME: 10 minutes FLUORO TIME: 0.6 minutes FLUORO DOSE: 12.22 mGy TECHNIQUE: The procedure was explained in its entirety to the patient bythe radiology team prior to transport to the neuroangiography suite. Thisincluded a discussion of the risks, benefits, and alternatives to lumbarpuncture. Risks discussed included nerve root injury, low-pressureheadache, pain, bleeding, and infection. The patient gave both verbal andwritten consent to proceed. Timeout was done at the beginning theprocedure. Strict hand hygiene protocol was observed. All personnel inthe room were attired in surgical hat and mask. The operators were insurgical hat, mask, sterile gown, and sterile gloves. The patient wasplaced lateral on the fluoroscopy table. The access site was prepped anddraped in the standard sterile fashion with iodine. The L3-4 interspacewas identified on fluoroscopy. Lidocaine was infiltrated into the skinand soft tissue. A 20-gauge Touhy needle was advanced into the thecalsac. Spontaneous CSF flow was obtained and 16 cc of clear CSF were obtained and sent for testing. Opening pressure was 19 cm water andclosing pressure was 11 cm water. The inner trocar of the needle wasre-introduced, and the needle was removed. The patient tolerated theprocedure without complication. FINDINGS: Technically successful diagnostic lumbar puncture at L3-4 with return ofclear and colorless CSF. IMPRESSION: Technically successful diagnostic lumbar puncture under fluoroscopicguidance. COMMUNICATION: Per this written report. Preliminary report signed by Emma Lebron on 08/21/2025 1:59 PM By electronically signing this report, I, the attending physician, attestthat I was not present for the procedure(s) but agree with the finaledited report. Drafted by Emma Lebron on 08/21/2025 1:54 PM Final report signed by Jimi Palacios MD on 08/22/2025 1:16 PM us Emma Lebron PA IMG IR PROCEDURES Final Resul t * CSF Panel (08/21/2025 10:36 AM EDT) Cerebrospinal Fluid Lumbar puncture / Unknown Non-blood Collection / Unknown 08/21/2025 10:36 AM EDT 08/21/2025 12:24 PM EDT us Stacie Brown MD LAB BODY FLUIDS AND STOOLS ORDERABLES Final Result [facility] [address] [place] [address] * Meningitis/Encephalitis Panel by PCR (08/21/2025 10:36 AM EDT) Escherichia coli K1 PCR Result Not Detected Not Detected 08/22/2025 8:06 AM EDT [facility] Haemophilus influenzae PCR Result Not Detected Not Detected 08/22/2025 8:06 AM EDT [facility] Listeria monocytogenes PCR Result Not Detected Not Detected 08/22/2025 8:06 AM EDT [facility] Neisseria meningitidis PCR Result Not Detected Not Detected 08/22/2025 8:06 AM EDT [facility] Streptococcus agalactiae PCR Result Not Detected Not Detected 08/22/2025 8:06 AM EDT [facility] Streptococcus pneumoniae PCR Result Not Detected Not Detected 08/22/2025 8:06 AM EDT [facility] Cytomegalovirus (CMV) PCR Result Not Detected Not Detected 08/22/2025 8:06 AM EDT [facility] Enterovirus (EV) PCR Result Not Detected Not Detected 08/22/2025 8:06 AM EDT [facility] Herpes Simplex Virus 1 (HSV-1) PCR Result Not Detected Not Detected 08/22/2025 8:06 AM EDT [facility] Herpes Simplex Virus 2 (HSV-2) PCR Result Not Detected Not Detected 08/22/2025 8:06 AM EDT [facility] Human Herpes Virus 6 (HHV-6) PCR Result Not Detected Presumptive Negative 08/22/2025 8:06 AM EDT [facility] Human Parechovirus (HPeC) PCR Result Not Detected Not Detected 08/22/2025 8:06 AM EDT [facility] Varicella Zoster Virus (VZV) PCR Result Not Detected Not Detected 08/22/2025 8:06 AM EDT [facility] Cryptococcus neoformans/gattii PCR Result Not Detected Not Detected 08/22/2025 8:06 AM EDT [facility] Cerebrospinal Fluid Lumbar puncture / Unknown Non-blood Collection / Unknown 08/21/2025 10:36 AM EDT 08/21/2025 12:24 PM EDT Narrative [facility] - 08/22/2025 8:06 AM EDT This specimen was tested for the following analytes: Eschericia coli K1, Haemophilus influenzae, Listeria monocytogenes, Neisseria meningitidis, Streptococcus agalactiae, Streptococcus pneumoniae, Cryptococcus neoformans/gattii, Cytomegalovirus, Enterovirus, Human Herpes virus 6, Herpes simplex virus 1, Herpes simplex virus 2, Human parechovirus, and Varicella zoster virus. ...NOTE: This test is not intended for use with CSF collected from indwelling medical devices (e.g. CSF Shunts). ...NOTE: The effect of antibiotic treatment on test performance has not been evaluated. us Stacie Brown MD LAB MICROBIOLOGY - GENERAL ORDERABLES Final Result [facility] [address] [place] [address] * Cerebrospinal Fluid (CSF) Culture and Gram Stain (08/21/2025 10:36 AM EDT) Culture No growth at day 4 2024 8:35 AM EDT [facility] Gram Stain No polymorphonuclear leukocytes seen 08/24/2025 8:35 AM EDT [facility] Gram Stain No organisms seen 025 8:35 AM EDT [facility] Cerebrospinal Fluid Lumbar puncture / Unknown Non-blood Collection / Unknown 08/21/2025 10:36 AM EDT 08/21/2025 12:24 PM EDT us Stacie Brown MD LAB MICROBIOLOGY - GENERAL ORDERABLES Final Result [facility] [address] [place] [address] * Non-Gynecologic Cytology (08/21/2025 10:36 AM EDT) Case Report Cytology Case: [id number] Authorizing Provider: Stacie Brown MD Collected: 08/21/2025 1036 Ordering Location: [facility] Inpatient Received: 08/22/2025 0756 Pathologist: Annemarie Gibbs MD Specimen: Lumbar Puncture, CEREBROSPINAL FLUID 08/22/2025 5:51 PM EDT [facility] Final Diagnosis A. CEREBROSPINAL FLUID - NO EVIDENCE OF MALIGNANCY, RARE MONONUCLEAR CELLS 08/22/2025 5:51 PM EDT [facility] at 1751 EDT Clinical History progressive weakness, BUE, BLE, dysphagia, bullae 08/22/2025 5:51 PM EDT [facility] Previous Cancer No 5:51 PM EDT [facility] Gross Description A. CEREBROSPINAL FLUID 1.0 ml's of clear fluid in tube #1, 2.0 ml's of clear fluid in tube #2, 0.5 ml's of clear fluid in tube #3 and 1.0 ml's of clear fluid in tube #4 all for thinprep 08/22/2025 5:51 PM EDT [facility] Special Instructions opening pressure 08/22/2025 5:51 PM EDT [facility] Cerebrospinal Fluid Lumbar puncture / Unknown Non-blood Collection / Unknown 08/21/2025 10:36 AM EDT 08/22/2025 7:56 AM EDT us Stacie Brown MD LAB CYTOLOGY ORDERABLES Fi nal Result [facility] [address] [place] [address] * CSF Cell Count w/ Manual Differential (08/21/2025 10:27 AM EDT) Unspun Color, CSF Colorless Colorless LAB HEMATOLOGY METHOD 08/21/2025 4:37 PM EDT [facility] Unspun Clarity, CSF Clear Clear LAB HEMATOLOGY METHOD 08/21/2025 4:37 PM EDT [facility] Spun Color, CSF LAB HEMATOLOGY METHOD 08/21/2025 4:37 PM EDT [facility] Comment:Test Not Indicated Spun Clarity, CSF LAB HEMATOLOGY METHOD 08/21/2025 4:37 PM EDT [facility] Comment:Test Not Indicated Volume CSF 5.0 cc LAB HEMATOLOGY METHOD 08/21/2025 4:37 PM EDT [facility] Tube Number, CSF Tube 4 LAB HEMATOLOGY METHOD 08/21/2025 4:37 PM EDT [facility] Red Blood Cell Count, CSF 157 0 uL uL LAB HEMATOLOGY METHOD 08/21/2025 4:37 PM EDT [facility] Comment:Test performed by ma nual method. Total Nucleated Cell Count, CSF 2 0 - 5 L LAB HEMATOLOGY METHOD 08/21/2025 4:37 PM EDT [facility] Comment:Test performed by ma nual method. Neutrophils %, CSF LAB HEMATOLOGY METHOD 08/21/2025 4:37 PM EDT [facility] Comment:Too few to count Lymphocytes %, CSF LAB HEMATOLOGY METHOD 08/21/2025 4:37 PM EDT [facility] Comment:Too few to count Monocytes/Macro phages %, CSF LAB HEMATOLOGY METHOD 08/21/2025 4:37 PM EDT [facility] Comment:Too few to count Eosinophils %, CSF LAB HEMATOLOGY METHOD 08/21/2025 4:37 PM EDT [facility] Comment:Too few to count Basophils %, CSF LAB HEMATOLOGY METHOD 08/21/2025 4:37 PM EDT [facility] Comment:Too few to count Neutrophils Absolute, CSF LAB HEMATOLOGY METHOD 08/21/2025 4:37 PM EDT [facility] Comment:Too few to count Lymphocytes Absolute, CSF LAB HEMATOLOGY METHOD 08/21/2025 4:37 PM EDT [facility] Comment:Too few to count Monocytes/Macro phages Absolute, CSF LAB HEMATOLOGY METHOD 08/21/2025 4:37 PM EDT [facility] Comment:Too few to count Eosinophils Absolute, CSF LAB HEMATOLOGY METHOD 08/21/2025 4:37 PM EDT [facility] Comment:Too few to count Basophils Absolute, CSF LAB HEMATOLOGY METHOD 08/21/2025 4:37 PM EDT [facility] Comment:Too few to count Cerebrospinal Fluid Lumbar puncture / Unknown Non-blood Collection / Unknown 08/21/2025 10:27 AM EDT 08/21/2025 12:31 PM EDT us Stacie Brown MD LAB BODY FLUIDS AND STOOLS ORDERABLES Final Result [facility] [address] [place] [address] * Encephalopathy, Autoimm/Paraneo, CSF (SO) (08/21/2025 10:27 AM EDT) AMPA-R Ab CBA, CSF Negative Negative 2024 9:16 AM EDT [facility] ([facility]) Comment: ADDITIONAL INFORMATION This test was developed and its performance characteristics determined by [facility] in a manner consistent with CLIA requirements. This test has not been cleared or approved by the U.S. Food and Drug Administration. Amphiphysin Ab, CSF Negative Negative 08/29/2025 9:16 AM EDT [facility] ([facility]) Comment: ADDITIONAL INFORMATION This test was developed and its performance characteristics determined by [facility] in a manner consistent with CLIA requirements. This test has not been cleared or approved by the U.S. Food and Drug Administration. AGNA-1, CSF Negative Negative 08/29/2025 9:16 AM EDT [facility] ([facility]) Comment: ADDITIONAL INFORMATION This test was developed and its performance characteristics determined by [facility] in a manner consistent with CLIA requirements. This test has not been cleared or approved by the U.S. Food and Drug Administration. DARNELL-1, CSF Negative Negative 08/29/2025 9:16 AM EDT [facility] ([facility]) Comment: ADDITIONAL INFORMATION This test was developed and its performance characteristics determined by [facility] in a manner consistent with CLIA requirements. This test has not been cleared or approved by the U.S. Food and Drug Administration. DARNELL-2, CSF Negative Negative 08/29/2025 9:16 AM EDT [facility] ([facility]) Comment: ADDITIONAL INFORMATION This test was developed and its performance characteristics determined by [facility] in a manner consistent with CLIA requirements. This test has not been cleared or approved by the U.S. Food and Drug Administration. DARNELL-3, CSF Negative Negative 08/29/2025 9:16 AM EDT [facility] ([facility]) Comment: ADDITIONAL INFORMATION This test was developed and its performance characteristics determined by [facility] in a manner consistent with CLIA requirements. This test has not been cleared or approved by the U.S. Food and Drug Administration. CASPR2-IgG CBA, CSF Negative Negative 08/29/2025 9:16 AM EDT [facility] ([facility]) Comment: ADDITIONAL INFORMATION This test was developed and its performance characteristics determined by [facility] in a manner consistent with CLIA requirements. This test has not been cleared or approved by the U.S. Food and Drug Administration. CRMP-5-IgG, CSF Negative Negative 9:16 AM EDT [facility] ([facility]) Comment: ADDITIONAL INFORMATION This test was developed and its performance characteristics determined by [facility] in a manner consistent with CLIA requirements. This test has not been cleared or approved by the U.S. Food and Drug Administration. KAT-B-R Ab CBA, CSF Negative Negative 08/29/2025 9:16 AM EDT [facility] Comment: ADDITIONAL INFORMATION This test was developed and its performance characteristics determined by [facility] in a manner consistent with CLIA requirements. This test has not been cleared or approved by the U.S. Food and Drug Administration. GAD65 Ab Assay, CSF 0.00 <=0.02 nmol/L 08/29/2025 9:16 AM EDT [facility] ([facility]) Comment: ADDITIONAL INFORMATION This test was developed and its performance characteristics determined by [facility] in a manner consistent with CLIA requirements. This test has not been cleared or approved by the U.S. Food and Drug Administration. GFAP IFA, CSF Negative Negative 08/29/2025 9:16 AM EDT [facility] ([facility]) Comment: ADDITIONAL INFORMATION This test was developed and its performance characteristics determined by [facility] in a manner consistent with CLIA requirements. This test has not been cleared or approved by the U.S. Food and Drug Administration. LGI1-IgG CBA, CSF Negative Negative 09/30/2 025 9:16 AM EDT [facility] [place] [place] ([facility]) Comment: ADDITIONAL INFORMATION This test was developed and its performance characteristics determined by [facility] in a manner consistent with CLIA requirements. This test has not been cleared or approved by the U.S. Food and Drug Administration. mGluR1 Ab IFA, CSF Negative Negative 2024 9:16 AM EDT [facility] Comment: ADDITIONAL INFORMATION This test was developed and its performance characteristics determined by [facility] in a manner consistent with CLIA requirements. This test has not been cleared or approved by the U.S. Food and Drug Administration. NIF IFA, CSF Negative Negative 08/29/2025 9:16 AM EDT [facility] [place] ([facility]) Comment: ADDITIONAL INFORMATION This test was developed and its performance characteristics determined by [facility] in a manner consistent with CLIA requirements. This test has not been cleared or approved by the U.S. Food and Drug Administration. NMDA-R Ab CBA, CSF Negative Negative 2024 9:16 AM EDT [facility] [place] ([facility]) Comment: ADDITIONAL INFORMATION This test was developed and its performance characteristics determined by [facility] in a manner consistent with CLIA requirements. This test has not been cleared or approved by the U.S. Food and Drug Administration. BALANCE RECESSER-1, CSF Negative Negative 08/29/2025 9:16 AM EDT [facility] [place] [place] [facility] Comment: ADDITIONAL INFORMATION This test was developed and its performance characteristics determined by [facility] in a manner consistent with CLIA requirements. This test has not been cleared or approved by the U.S. Food and Drug Administration. BALANCE RECESSER-2, CSF Negative Negative 08/29/2025 9:16 AM EDT [facility] [place] ([facility]) Comment: ADDITIONAL INFORMATION This test was developed and its performance characteristics determined by [facility] in a manner consistent with CLIA requirements. This test has not been cleared or approved by the U.S. Food and Drug Administration. Neurochondrin IFA, CSF Negative Negative 08/29/2025 9:16 AM EDT [facility] [place] ([facility]) Comment: ADDITIONAL INFORMATION This test was developed and its performance characteristics determined by [facility] in a manner consistent with CLIA requirements. This test has not been cleared or approved by the U.S. Food and Drug Administration. Septin-7 IFA, CSF Negative Negative 9:16 AM EDT [facility] [place] ([facility]) Comment: ADDITIONAL INFORMATION This test was developed and its performance characteristics determined by [facility] in a manner consistent with CLIA requirements. This test has not been cleared or approved by the U.S. Food and Drug Administration. BALANCE RECESSER-TR, CSF Negative Negative 08/29/2025 9:16 AM EDT [facility] [place] ([facility]) Comment: ADDITIONAL INFORMATION This test was developed and its performance characteristics determined by [facility] in a manner consistent with CLIA requirements. This test has not been cleared or approved by the U.S. Food and Drug Administration. Encephalopathy, Interpretation, CSF SEE COMMENTS 08/29/2025 9:16 AM EDT [facility] [place] [place] ([facility]) Comment: No informative autoantibodies were detected in this evaluation. However, a negative result does not exclude autoimmune encephalopathy, idiopathic or paraneoplastic. Sensitivity and specificity of antibody testing are enhanced by testing both serum and CSF. IFA Notes None. 08/29/2025 9:16 AM EDT [facility] [place] ([facility]) DPPX Ab CBA, CSF Negative Negative 08/29/20 9:16 AM EDT [facility] [place] ([facility]) Comment: ADDITIONAL INFORMATION This test was developed and its performance characteristics determined by [facility] in a manner consistent with CLIA requirements. This test has not been cleared or approved by the U.S. Food and Drug Administration. IgLON5 CBA, CSF Negative Negative 9:16 AM EDT [facility] [place] ([facility]) Comment: ADDITIONAL INFORMATION This test was developed and its performance characteristics determined by [facility] in a manner consistent with CLIA requirements. This test has not been cleared or approved by the U.S. Food and Drug Administration. PDE10A Ab IFA, CSF Negative Negative 2024 9:16 AM EDT [facility] [place] ([facility]) Comment: ADDITIONAL INFORMATION This test was developed and its performance characteristics determined by [facility] in a manner consistent with CLIA requirements. This test has not been cleared or approved by the U.S. Food and Drug Administration. TRIM46 Ab IFA, CSF Negative Negative 2024 9:16 AM EDT [facility] [place] [place] [facility] Comment: ADDITIONAL INFORMATION This test was developed and its performance characteristics determined by [facility] in a manner consistent with CLIA requirements. This test has not been cleared or approved by the U.S. Food and Drug Administration. Test Performed by: [facility] - [address] [address] Marine Reporter: Gerber Noel Ph.D.; IA# [id number] Cerebrospinal Fluid Cerebrospinal fluid specimen / Unknown Non-blood Collection / Unknown 08/21/2025 10:27 AM EDT 08/21/2025 12:35 PM EDT Stacie Brown MD LAB BODY FLUIDS AND STOOLS ORDERABLES Final Result [facility] ([place]) * Protein, CSF (08/21/2025 10:27 AM EDT) Total Protein, CSF 18 15 - 45 mg/dL 08/21/2025 3:[address] [facility] Cerebrospinal Fluid Lumbar puncture / Unknown Non-blood Collection / Unknown 08/21/2025 10:27 AM EDT 08/21/2025 12:35 PM EDT Narrative [facility] - 08/21/2025 3:50 PM EDT Blood, when present in CSF, invalidates protein. Interpret results in the context of the patient's condition and other laboratory results. Stacie Brown MD LAB BODY FLUIDS AND STOOLS ORDERABLES Final Result [facility] [address] [place] [address] * Lactic acid, CSF (08/21/2025 10:27 AM EDT) Lactate, CSF 1.3 1.1 - 2.4 mmol/L 08/21/2025 4:04 PM EDT [facility] Cerebrospinal Fluid Lumbar puncture / Unknown Non-blood Collection / Unknown 08/21/2025 10:27 AM EDT 08/21/2025 12:35 PM EDT Narrative [facility] - 08/21/2025 4:04 PM EDT CSF reference intervals are based on literature values and have not been verified at the [facility]. Stacie Brown MD LAB BODY FLUIDS AND STOOLS ORDERABLES Final Result [facility] [address] [place] [address] * Glucose, CSF (08/21/2025 10:27 AM EDT) [facility] Glucose, CSF 67 41 - 70 mg/dL 08/21/2025 3:50 PM EDT [facility] Cerebrospinal Fluid Lumbar puncture / Unknown Non-blood Collection / Unknown 08/21/2025 10:27 AM EDT 08/21/2025 12:35 PM EDT Narrative [facility] - 08/21/2025 3:50 PM EDT CSF glucose values should be approximately 60 % of the plasma values and must always be compared with concurrently measured plasma values for adequate clinical interpretation. No reference ranges have been established for pediatric patients. Stacie Brown MD LAB BODY FLUIDS AND STOOLS ORDERABLES Final Result Performing Organization Address City/[facility] Co de Phone Number [facility] [address] [place] [address] * (ABNORMAL) Hemogram (CBC) (08/20/2025 8:51 AM EDT) Only the most recent of4 resultswithin the time period is included. [facility] WBC Count 15.41(H) 3.70 - 10.30 10*3/uL LAB HEMATOLOGY METHOD 08/20/2025 8:56 AM EDT [facility] RBC Count 2.74(L) 3.90 - 5.20 10*6/uL LAB HEMATOLOGY METHOD 08/20/2025 8:56 AM EDT [facility] HGB 8.3(L) 11.2 - 15.7 g/dL LAB HEMATOLOGY METHOD 08/20/2025 8:56 AM EDT [facility] HCT 26.7(L) 34.0 - 45.0 % LAB HEMATOLOGY METHOD 08/20/2025 8:56 AM EDT [facility] Platelet Count 408(H) 155 - 369 10*3/uL LAB HEMATOLOGY METHOD 08/20/2025 8:56 AM EDT [facility] MCV 97 79 - 98 fL LAB HEMATOLOGY METHOD 08/20/2025 8:56 AM EDT [facility] MCH 30.3 26.0 - 32.0 pg LAB HEMATOLOGY METHOD 08/20/2025 8:56 AM EDT [facility] MCHC 31.1 30.7 - 35.5 g/dL LAB HEMATOLOGY METHOD 08/20/2025 8:56 AM EDT [facility] RDW 18.9(H) 11.5 - 14.5 % LAB HEMATOLOGY METHOD 08/20/2025 8:56 AM EDT [facility] MPV 9.6 8.8 - 12.5 fL LAB HEMATOLOGY METHOD 08/20/2025 8:56 AM EDT [facility] nRBC 0.0 <=0.0 per 100 WBCs LAB HEMATOLOGY METHOD 08/20/2025 8:56 AM EDT [facility] Blood Venous blood specimen / Unknown Venipuncture / Unknown 08/20/2025 8:51 AM EDT 08/20/2025 8:54 AM EDT us Kobe ALDANA LAB BLOOD ORDERABLES Final R esult Performing Organization Address City/[facility] Co de Phone Number [facility] [address] [place] [address] * (ABNORMAL) Vancomycin, Peak, Plasma Please draw vancomycin peak two hours AFTER the conclusion of the vancomycin infusion. This order is time sensitive and is essential to ensure timely dosing of subsequent doses. (08/20/2025 8:50 AM EDT) Vancomycin, Peak, Plasma 41.2(H) 20.0 - 40.0 ug/mL 08/20/2025 9:13 AM EDT [facility] Blood Venous blood specimen / Unknown Venipuncture / Unknown 08/20/2025 8:50 AM EDT 08/20/2025 8:54 AM EDT Narrative [facility] - 08/20/2025 9:13 AM EDT Therapeutic Peak level: 20-40ug/mL Supra-therapeutic Peak level: >40 ug/mL us Imelda Geiger MD LAB BLOOD ORDERABLES Final Resul t Performing Organization Address City/[facility]/ZIP Co de Phone Number [facility] [address] [place] [address] * Transfuse RBC (08/20/2025 5:36 AM EDT) Koeb ALDANA BLOOD TRANSFUSION ORDERABLES Final Result * (ABNORMAL) Vancomycin, Trough, Plasma Please draw vancomycin trough 30 minutes BEFORE the START of the vancomycin infusion. This order is time sensitive and is essential to ensure timely dosing of subsequent doses. (08/20/2025 5:35 AM EDT) [facility] Vancomycin, Trough, Plasma 20.5(H) 10.0 - 20.0 ug/mL 08/20/2025 6:05 AM EDT [facility] Blood Venous blood specimen / Unknown Venipuncture / Unknown 08/20/2025 5:35 AM EDT 08/20/2025 5:44 AM EDT Narrative [facility] - 08/20/2025 6:05 AM EDT Therapeutic Trough level: 10-20ug/mL Supra-therapeutic Trough level: >20 ug/mL Imelda Geiger MD LAB BLOOD ORDERABLES Final Resul t Performing Organization Address [facility] Co de Phone Number [facility] [address] [place] [address] * Cyndee auris Surveillance by PCR (08/20/2025 3:53 AM EDT) [facility] Cyndee auris PCR Result Not Detected Not Detected 08/21/2025 5:50 AM EDT [facility] Swab (Axilla and Groin) Non-blood Collection / Unknown 08/20/2025 3:53 AM EDT 08/20/2025 6:47 AM EDT Narrative [facility] - 08/21/2025 5:50 AM EDT This PCR assay was developed and its performance characteristics determined by [facility] as appropriate for clinical purposes. This assay has not been cleared or approved by the FDA, but is performed in a CLIA regulated laboratory that is qualified to perform high-complexity testing. Imelda Geiger MD LAB MICROBIOLOGY - GENERAL ORDER ISABELLE Final Result Performing Organization Address City/[facility]/ZIP Co de Phone Number [facility] [address] [place] [address] * (ABNORMAL) POCT venous blood gas gem (08/20/2025 1:29 AM EDT) pH, Venous 7.41 7.32 - 7.43 08/20/2025 1:30 AM EDT [facility] pCO2, Venous 49 37 - 52 mm Hg 08/20/2025 1:30 AM EDT [facility] pO2, Venous 61(H) 25 - 40 mm Hg 08/20/2025 1:30 AM EDT [facility] SO2, Venous 92(H) 65 - 80 % 08/20/2025 1:30 AM EDT [facility] Base Excess/Deficit , Venous 5.8(H) -2 - 3 mmol/L 08/20/2025 1:30 AM EDT [facility] HCO3, Venous 31.1(H) 22 - 26 mmol/L 08/20/2025 1:30 AM EDT [facility] Hemoglobin, Venous 7.2(L) 11.2 - 15.7 g/dL 08/20/2025 1:30 AM EDT [facility] Hematocrit, Venous 22.0(L) 34.0 - 45.0 % 08/20/2025 1:30 AM EDT [facility] Sodium, Venous 129(L) 136 - 145 mmol/L 08/20/2025 1:30 AM EDT [facility] Potassium, Venous 4.5 3.6 - 4.9 mmol/L 08/20/2025 1:30 AM EDT [facility] POCT Chloride, Venous 106 97 - 107 mmol/L 08/20/2025 1:30 AM EDT [facility] Glucose, Venous 122(H) 74 - 99 mg/dL 08/20/2025 1:30 AM EDT [facility] Ionized Calcium, Venous 5.2(H) 4.6 - 5.1 mg/dL 08/20/2025 1:30 AM EDT [facility] Lactate, Venous 1.2 0.5 - 2.2 mmol/L 08/20/2025 1:30 AM EDT [facility] pH, Temp Corrected, Venous 7.41 7.32 - 7.43 08/20/2025 1:30 AM EDT [facility] pCO2, Temp Corrected, Venous 49 37 - 52 mm Hg 08/20/2025 1:30 AM EDT [facility] pO2, Temp Corrected, Venous 61(H) 25 - 40 mm Hg 08/20/2025 1:30 AM EDT [facility] [employer] Portal Developer ID Isaac Escobar 08/20/2025 1:30 AM EDT [facility] Blood, Venous Whole blood specimen / Unknown 08/20/2025 1:29 AM EDT 08/20/2025 1:30 AM EDT us Imelda Geiger MD LAB POINT OF CARE TE ST DOCKED DEVICE UNSOLICITED RESULTS Final Result Performing Organization Address [facility] Co de Phone Number [facility] [address] [place] [address] * (ABNORMAL) Cystatin C (08/20/2025 1:20 AM EDT) Only the most recent of3 resultswithin the time period is included. Cystatin C 1.73(H) 0.61 - 0.95 mg/L 08/20/2025 4:11 AM EDT [facility] Blood Venous blood specimen / Unknown Venipuncture / Unknown 08/20/2025 1:20 AM EDT 08/20/2025 1:31 AM EDT us Imelda Geiger MD LAB BLOOD ORDERABLES Final Resul t Performing Organization Address City/[facility] Co de Phone Number [facility] [address] [place] [address] * MR Cervical Spine w and wo IV Contrast (08/19/2025 1:43 PM EDT) Anatomical Region Laterality Modality C-spine Magnetic Resonan ce Impressions 08/19/2025 2:36 PM EDT Significantly motion degraded study, essentially nondiagnostic for evaluation of cord pathology. Multilevel degenerative changes, most pronounced at C4-C5 with mild spinal canal and right neural foraminal stenosis. CRITICAL RESULT: No. COMMUNICATION: Per this written report. Drafted by Antony Finnegan MD on 08/19/2025 2:26 PM Final report signed by Antony Finnegan MD on 08/19/2025 2:36 PM Narrative 08/19/2025 2:36 PM EDT CLINICAL INDICATION: Myelopathy, acute, cervical spine TECHNIQUE: Multiplanar multiecho sequences were obtained through the cervical spine utilizing T1 and T2 weighting with and without the administration of intravenous contrast. 7.5 mL Gadavist. COMPARISON: None. FINDINGS: Diagnostic Quality: Significantly motion Degraded. Alignment: The bony alignment is normal. Marrow: The marrow signal is normal. Vertebrae and Intervertebral Discs: Vertebral body heights are normal. Spinal Cord and Spinal Canal: The spinal cord is of normal caliber without abnormal intrinsic signal. No abnormal enhancement is present within the spinal canal. Degenerative changes: Multilevel degenerative disc changes, most pronounced at C4-C5. Multilevel facet arthropathy and uncovertebral hypertrophy. Mild spinal canal and right neural foraminal stenosis at C4-C5. Prevertebral and Paraspinal Soft Tissues: There is no prevertebral or paraspinal soft tissue swelling or mass. Upper Thoracic Spine: The visualized upper thoracic spine is normal. Other Findings: None. Procedure Note Antony Finnegan MD - 08/19/2025 CLINICAL INDICATION: Myelopathy, acute, cervical spine TECHNIQUE: Multiplanar multiecho sequences were obtained through the cervical spineutilizing T1 and T2 weighting with and without the administration ofintravenous contrast. 7.5 mL Gadavist. COMPARISON: None. FINDINGS: Diagnostic Quality: Significantly motion Degraded. Alignment: The bony alignment is normal. Marrow: The marrow signal is normal. Vertebrae and Intervertebral Discs: Vertebral body heights are normal. Spinal Cord and Spinal Canal: The spinal cord is of normal caliber withoutabnormal intrinsic signal. No abnormal enhancement is present within thespinal canal. Degenerative changes: Multilevel degenerative disc changes, mostpronounced at C4-C5. Multilevel facet arthropathy and uncovertebralhypertrophy. Mild spinal canal and right neural foraminal stenosis atC4-C5. Prevertebral and Paraspinal Soft Tissues: There is no prevertebral orparaspinal soft tissue swelling or mass. Upper Thoracic Spine: The visualized upper thoracic spine is normal. Other Findings: None. IMPRESSION: Significantly motion degraded study, essentially nondiagnostic forevaluation of cord pathology. Multilevel degenerative changes, most pronounced at C4-C5 with mild spinalcanal and right neural foraminal stenosis. CRITICAL RESULT: No. COMMUNICATION: Per this written report. Drafted by Antony Finnegan MD on 08/19/2025 2:26 PM Final report signed by Antony Finnegan MD on 08/19/2025 2:36 PM us Shantel Bashir MD IMG MRI PROCEDURES Final Result * MR Head w and wo IV Contrast (08/19/2025 1:43 PM EDT) Anatomical Region Laterality Modality Head Magnetic Resonan ce Impressions 08/19/2025 2:37 PM EDT No acute intracranial finding. CRITICAL RESULT: No. COMMUNICATION: Per this written report. Drafted by Antony Finnegan MD on 08/19/2025 2:23 PM Final report signed by Antony Finnegan MD on 08/19/2025 2:37 PM Narrative 08/19/2025 2:37 PM EDT CLINICAL INDICATION: Patient with diffuse weakness and new onset dysphagia TECHNIQUE: Multiplanar multiecho sequences were performed through the brain utilizing T1 and T2 weighting, as well as either axial susceptibility weighted or gradient echo sequences, and axial diffusion weighted images. A coronal post-contrast 1mm thick T1-weighted 3D MP RAGE sequence was performed and multiplanar reformatted images were created. Imaging was performed with and without contrast administration: 7.5 mL of Gadavist. COMPARISON: None. FINDINGS: Diagnostic Quality: Adequate. The ventricles and sulci are normal in size. Punctate foci of T2/FLAIR hyperintense signal in the bilateral cerebral white matter, nonspecific but could be sequela of nonacute small vessel ischemic disease, overall mild in extent. Multiple foci of susceptibility in the bilateral parietal, occipital and left temporal lobes as well as the right thalamus, sequela of prior microhemorrhage. No abnormal intracranial enhancement is present. There is no abnormal parenchymal restricted diffusion. Vascular Flow Voids: Normal. Paranasal Sinuses and Mastoid Air Cells: Retention cyst in the right maxillary sinus. Mucosal thickening in the ethmoid air cells. Orbits: No definite masses within the limitations of the study. Extracranial Findings: None. Craniocervical Junction and Skull Base: No tonsillar ectopia or mass is present. Procedure Note Antony Finnegan MD - 08/19/2025 CLINICAL INDICATION: Patient with diffuse weakness and new onset dysphagia TECHNIQUE: Multiplanar multiecho sequences were performed through the brain utilizingT1 and T2 weighting, as well as either axial susceptibility weighted orgradient echo sequences, and axial diffusion weighted images. A coronalpost-contrast 1mm thick T1- weighted 3D MP RAGE sequence was performed andmultiplanar reformatted images were created. Imaging was performed withand without contrast administration: 7.5 mL of Gadavist. COMPARISON: None. FINDINGS: Diagnostic Quality: Adequate. The ventricles and sulci are normal in size. Punctate foci of T2/FLAIRhyperintense signal in the bilateral cerebral white matter, nonspecificbut could be sequela of nonacute small vessel ischemic disease, overallmild in extent. Multiple foci of susceptibility in the bilateral parietal,occipital and left temporal lobes as well as the right thalamus, sequelaof prior microhemorrhage. No abnormal intracranial enhancement is present. There is no abnormalparenchymal restricted diffusion. Vascular Flow Voids: Normal. Paranasal Sinuses and Mastoid Air Cells: Retention cyst in the rightmaxillary sinus. Mucosal thickening in the ethmoid air cells. Orbits: No definite masses within the limitations of the study. Extracranial Findings: None. Craniocervical Junction and Skull Base: No tonsillar ectopia or mass ispresent. IMPRESSION: No acute intracranial finding. CRITICAL RESULT: No. COMMUNICATION: Per this written report. Drafted by Antony Finnegan MD on 08/19/2025 2:23 PM Final report signed by Antony Finnegan MD on 08/19/2025 2:37 PM Shantel Bashir MD IMG MRI PROCEDURES Final Result * Critical Care (08/19/2025 7:31 AM EDT) Narrative Imelda Geiger MD - 08/19/2025 7:31 AM EDT Imelda Geiger MD 08/20/2025 4:19 PM Critical Care Performed by: Yeni Landis APRN Authorized by: Yeni Landis APRN Critical care provider statement: Critical care time (minutes): 20 Critical care time was exclusive of: Separately billable procedures and treating other patients Critical care was time spent personally by me on the following activities: Development of treatment plan with patient or surrogate, evaluation of patient's response to treatment, examination of patient, obtaining history from patient or surrogate, ordering and performing treatments and interventions, ordering and review of laboratory studies, ordering and review of radiographic studies and review of old charts Comments: The patient is critically ill with: sepsis, acute liver injury, rhabdomyolysis. They require complex decision making. The patient was seen on rounds with critical care physician, Dr. Geiger and they are in agreement with the plan of care. Pharmacy, respiratory and nursing services were present on rounds. us Yeni Landis COMPUTER PROGRAMMER IN CLINIC/BEDSIDE ORDERAB LES Final Result * Morphology (08/19/2025 1:34 AM EDT) Only the most recent of11 resultswithin the time period is included. RBC Morphology RBC Morphology Consistent with Indices and RDW LAB HEMATOLOGY METHOD 08/19/2025 2:23 AM EDT [facility] Platelet Estimate Platelet smear estimate consistent with automated count LAB HEMATOLOGY METHOD 08/19/2025 2:23 AM EDT [facility] Blood Venous blood specimen / Unknown Venipuncture / Unknown 08/19/2025 1:34 AM EDT 08/19/2025 1:40 AM EDT Emma Lehman MD LAB BLOOD ORDERABLES Final Resu lt Performing Organization Address City/[facility]/ZIP Co de Phone Number [facility] [address] [place] [address] * LACTIC ACID, VENOUS (08/19/2025 1:34 AM EDT) Lactate, Venous, Whole Blood 1.1 0.5 - 2.2 mmol/L LAB HEMATOLOGY METHOD 08/19/2025 1:44 AM EDT [facility] Blood Venous blood specimen / Unknown Venipuncture / Unknown 08/19/2025 1:34 AM EDT 08/19/2025 1:41 AM EDT Kati Garcia APRN LAB BLOOD ORDERABLES Final Result [facility] [address] [place] [address] * (ABNORMAL) Manual Differential (08/19/2025 1:34 AM EDT) Only the most recent of8 resultswithin the time period is included. Blasts % 0 % LAB HEMATOLOGY METHOD 08/19/2025 2:23 AM EDT [facility] Promyelocytes % 0 % LAB HEMATOLOGY METHOD 08/19/2025 2:23 AM EDT [facility] Myelocytes % 2 % LAB HEMATOLOGY METHOD 08/19/2025 2:23 AM EDT [facility] Metamyelocytes % 6 % LAB HEMATOLOGY METHOD 08/19/2025 2:23 AM EDT [facility] Neutrophils % 73 % LAB HEMATOLOGY METHOD 08/19/2025 2:23 AM EDT [facility] Lymphocytes % 8 % LAB HEMATOLOGY METHOD 08/19/2025 2:23 AM EDT [facility] Reactive Lymphocytes % 0 % LAB HEMATOLOGY METHOD 08/19/2025 2:23 AM EDT [facility] Monocytes % 4 % LAB HEMATOLOGY METHOD 08/19/2025 2:23 AM EDT [facility] Eosinophils % 7 % LAB HEMATOLOGY METHOD 08/19/2025 2:23 AM EDT [facility] Basophils % 0 % LAB HEMATOLOGY METHOD 08/19/2025 2:23 AM EDT [facility] Blasts Absolute 0.00 10*3/UL LAB HEMATOLOGY METHOD 08/19/2025 2:23 AM EDT [facility] Promyelocytes Absolute 0.00 10*3/uL LAB HEMATOLOGY METHOD 08/19/2025 2:23 AM EDT [facility] Myelocytes Absolute 0.35 10*3/uL LAB HEMATOLOGY METHOD 08/19/2025 2:23 AM EDT [facility] Metamyelocytes Absolute 1.05 10*3/uL LAB HEMATOLOGY METHOD 08/19/2025 2:23 AM EDT [facility] Neutrophils Absolute 12.83(H) 1.60 - 6.10 10*3/uL LAB HEMATOLOGY METHOD 08/19/2025 2:23 AM EDT [facility] Lymphocytes Absolute 1.41 1.20 - 3.90 10*3/uL LAB HEMATOLOGY METHOD 08/19/2025 2:23 AM EDT [facility] Reactive Lymphocytes Absolute 0.00 10*3/uL LAB HEMATOLOGY METHOD 08/19/2025 2:23 AM EDT [facility] Monocytes Absolute 0.70 0.30 - 0.90 10*3/uL LAB HEMATOLOGY METHOD 08/19/2025 2:23 AM EDT [facility] Eosinophils Absolute 1.23(H) 0.00 - 0.50 10*3/uL LAB HEMATOLOGY METHOD 08/19/2025 2:23 AM EDT [facility] Basophils Absolute 0.00 0.00 - 0.10 10*3/uL LAB HEMATOLOGY METHOD 08/19/2025 2:23 AM EDT [facility] Blood Venous blood specimen / Unknown Venipuncture / Unknown 08/19/2025 1:34 AM EDT 08/19/2025 1:40 AM EDT Emma Lehman MD LAB BLOOD ORDERABLES Final Resu lt Performing Organization Address City/[facility]/ZIP Co de Phone Number [facility] [address] [place] [address] * (ABNORMAL) N-Terminal Probnp (08/18/2025 2:50 PM EDT) Only the most recent of3 resultswithin the time period is included. N-Terminal, PROBNP, Plasma 5,233(H) 0 - 449 pg/mL 08/18/2025 3:27 PM EDT [facility] Blood Venous blood specimen / Unknown Venipuncture / Unknown 08/18/2025 2:50 PM EDT 08/18/2025 3:04 PM EDT Kati Garcia APRN LAB BLOOD ORDERABLES Final Result Performing Organization Address City/[facility]/ZIP Co de Phone Number [facility] [address] [place] [address] * Blood Culture (Aerobic/Anaerobet Set) (08/18/2025 2:50 PM EDT) Only the most recent of6 resultswithin the time period is included. Culture No growth at day 5 08/23/2025 6:01 PM EDT [facility] Blood Structure of right forearm / Unknown Venipuncture / Unknown 08/18/2025 2:50 PM EDT 08/18/2025 3:10 PM EDT Narrative [facility] - 08/23/2025 6:01 PM EDT Low blood volume submitted, results may be compromised us Kati Garcia APRN LAB MICROBIOLOGY - GENERAL ORDERABLES Final Result [facility] [address] [place] [address] * [place] CRITICAL CARE, E/M 30-74 MINUTES (08/18/2025 8:40 AM EDT) Narrative Imelda Geiger MD - 08/18/2025 8:40 AM EDT Imelda Geiger MD 08/18/2025 6:15 PM Critical Care Performed by: Kati Garcia APRN Authorized by: Kati Garcia APRN Critical care provider statement: Critical care time (minutes): 30 Critical care time was exclusive of: Separately billable procedures and treating other patients Critical care was time spent personally by me on the following activities: Development of treatment plan with patient or surrogate, discussions with consultants, obtaining history from patient or surrogate, examination of patient, evaluation of patient's response to treatment, ordering and performing treatments and interventions, ordering and review of laboratory studies and ordering and review of radiographic studies Comments: This patient is critically ill. Thus far, I have spent the above referenced minutes, devoted solely to this patient managing life/organ supporting interventions that required physical assessment. This includes time spent reviewing and adjusting antibiotics and all medications, discussion of patient with consultants and other care providers as well as updating patient and/or family (if patient by virtue of his/her condition is unable to participate in decision making). This does not include time spent performing separately billed procedures. Time is not concurrent with that of other providers. us Kati Garcia APRN IN CLINIC/BEDSIDE ORDERABL ES Final Result * (ABNORMAL) Troponin T, High Sensitivity, 2 Hour, Plasma (08/18/2025 2:23 AM EDT) Only the most recent of2 resultswithin the time period is included. Troponin T, High Sensitivity, 2 Hour 921(H) <14 ng/L 08/18/2025 2:47 AM EDT [facility] Troponin Delta Interpretation Not Calculated 08/18/2025 2:47 AM EDT [facility] Comment:Specimen not collect ed within acceptable timeframe. Delta will not be calculated. Blood Venous blood specimen / Unknown Venipuncture / Unknown 08/18/2025 2:23 AM EDT 08/18/2025 2:28 AM EDT us Nathaniel B [email or web address] LAB BLOOD ORDERABLES Fin al Result Performing Organization Address [facility] de Phone Number [facility] [address] [place] [address] * Urine Robb Panel (08/18/2025 12:26 AM EDT) Only the most recent of3 resultswithin the time period is included. Extra Reflex urine culture not indicated 08/18/2025 2:01 AM EDT [facility] Urine Urine specimen obtained by clean catch procedure / Unknown Non-blood Collection / Unknown 08/18/2025 12:26 AM EDT 08/18/2025 12:36 AM EDT us Nathaniel B Okta [employer] LAB URINE ORDERABLES Fin al Result Performing Organization Address [facility] de Phone Number [facility] [address] [place] [address] * Urinalysis Microscopic Examination (08/18/2025 12:26 AM EDT) Only the most recent of3 resultswithin the time period is included. Urine Urine specimen obtained by clean catch procedure / Unknown Non-blood Collection / Unknown 08/18/2025 12:26 AM EDT 08/18/2025 12:36 AM EDT us Nathaniel B Okta [employer]PUT[employer] PROGRAM[employer] LAB URINE ORDERABLES Fin al Result Performing Organization Address [facility] de Phone Number [facility] [address] [place] [address] * (ABNORMAL) Troponin T, High Sensitivity, 0 Hour Plasma, Reflex to 2 Hour (08/18/2025 12:26 AM EDT) Only the most recent of2 resultswithin the time period is included. Troponin T, High Sensitivity, 0 Hour 871(H) <14 ng/L 08/18/2025 1:23 AM EDT [facility] Blood Venous blood specimen / Unknown Venipuncture / Unknown 08/18/2025 12:26 AM EDT 08/18/2025 12:36 AM EDT us Nathaniel River APRN LAB BLOOD ORDERABLES Fin al Result Performing Organization Address [facility] Co de Phone Number [facility] [address] [place] [address] * (ABNORMAL) Procalcitonin (08/18/2025 12:26 AM EDT) Procalcitonin, Plasma 0.49(H) <0.09 ng/mL 08/18/2025 1:23 AM EDT [facility] Blood Venous blood specimen / Unknown Venipuncture / Unknown 08/18/2025 12:26 AM EDT 08/18/2025 12:36 AM EDT Narrative [facility] - 08/18/2025 1:23 AM EDT Procalcitonin concentrations in healthy individuals are <0.09 ng/mL. Published data support the following interpretive risk assessment: An elevated procalcitonin result does not always indicate sepsis. Various non-infectious conditions are known to increase procalcitonin. Results should be considered in the context of clinical symptoms and other laboratory tests. Procalcitonin >2.0 ng/mL: Concentrations >2.0 ng/mL on the first day of ICU admission are associated with a higher risk of progression to severe sepsis and/or septic shock. The change in PCT over time may help predict 28 day mortality risk. Please consult [email or web address] for more information. Test performed at [facility]. us Brian Foster MD LAB BLOOD ORDERABLES Final Res ult Performing Organization Address [facility]/ZIP Co de Phone Number [facility] [address] [place] [address] * (ABNORMAL) Urinalysis with reflex microscopic (Culture NOT Included) (08/18/2025 12:26 AM EDT) Only the most recent of3 resultswithin the time period is included. Color, Urine Yellow LAB URINALYSIS - AUTOMATED METHOD [facility]/18/2025 12:[facility] Clarity, Urine Cloudy LAB URINALYSIS - AUTOMATED METHOD 08/18/2025 12:54 AM EDT [facility] Spec Almo, Urine 1.015 1.005 - 1.030 LAB URINALYSIS - AUTOMATED METHOD 08/18/2025 12:54 [facility] pH, Urine 6.0 5.0 - 8.0 LAB URINALYSIS - AUTOMATED METHOD 08/18/2025 12:54 AM [facility] Protein, Urine 100(A) Negative mg/dL LAB URINALYSIS - AUTOMATED METHOD 08/18/2025 12:54 AM [facility] Glucose, Urine Negative Negative mg/dL LAB URINALYSIS - AUTOMATED METHOD 08/18/2025 12:54 AM [facility] Ketones, Urine Negative Negative mg/dL LAB URINALYSIS - AUTOMATED METHOD 08/18/2025 12:54 AM [facility] Blood, Urine Large(A) Negative LAB URINALYSIS - AUTOMATED METHOD 08/18/2025 12:54 AM [facility] Bilirubin, Urine Negative Negative LAB URINALYSIS - AUTOMATED METHOD 08/18/2025 12:54 AM [facility] Urobilinogen, Urine 0.2 0.2 to 1.0 mg/dL LAB URINALYSIS - AUTOMATED METHOD 08/18/2025 12:54 AM [facility] Leukocytes, Urine Trace(A) Negative LAB URINALYSIS - AUTOMATED METHOD 08/18/2025 12:54 AM [facility] Nitrite, Urine Negative Negative LAB URINALYSIS - AUTOMATED METHOD 08/18/2025 12:54 AM [facility] RBC, Urine 31 - 50(A) 0 to 3 /HPF 08/18/2025 12:54 AM [facility] Comment:This result was prev iously suppressed from the chart. WBC, Urine 0 - 5 0 to 5 /HPF 08/18/2025 12:54 AM EDT [facility] Comment:This result was prev iously suppressed from the chart. Squamous Epithelial Cells >20(A) 0 to 5 /HPF 08/18/2025 12:54 AM EDT [facility] Comment:This result was prev iously suppressed from the chart. Hyaline Casts 0 - 2 0 to 5 /LPF 08/18/2025 12:54 AM EDT [facility] Comment:This result was prev iously suppressed from the chart. Bacteria, Urine Present Negative 08/18/2025 12:54 AM EDT [facility] Comment:This result was prev iously suppressed from the chart. Renal Tubular Cells Present Absent 08/18/2025 12:54 AM EDT [facility] Comment:This result was prev iously suppressed from the chart. Granular Casts Present Absent 08/18/2025 12:54 AM EDT [facility] Comment:This result was prev iously suppressed from the chart. Amorphous Crystals Present Absent 08/18/2025 12:54 AM EDT [facility] Comment:This result was prev iously suppressed from the chart. Urine Urine specimen obtained by clean catch procedure / Unknown Non-blood Collection / Unknown 08/18/2025 12:26 AM EDT 08/18/2025 12:36 AM EDT Narrative [facility] - 08/18/2025 12:54 AM EDT Performed by manual method Nathaniel River [facility] URINE ORDERABLES Fin al Result [facility] [address] [place], [place] [id number] * Cortisol (08/18/2025 12:26 AM EDT) Cortisol 11.60 Before 10am: 3.7 - 19.4. After 5pm: 2.9 - 17.3 ug/dL 08/18/2025 4:54 AM EDT [facility] Comment:Testing performed on [employer], standardized against [facility] Reference Standard concentration values assigned by LC-MS/MS and verified by BCR 192 and BCR 193 certified reference materials. Blood Venous blood specimen / Unknown Venipuncture / Unknown 08/18/2025 12:26 AM EDT 08/18/2025 12:36 AM EDT us Nathaniel River APRN LAB REF LAB BLOOD AND FL UID ORD Final Result [facility] [address] [place] [address] * [place] CRITICAL CARE, E/M 30-74 MINUTES (08/17/2025 10:29 PM EDT) Narrative Brian Foster MD - 08/17/2025 10:29 PM EDT Brian Foster MD 08/18/2025 1:18 AM Critical Care Performed by: Nathaniel River APRN Authorized by: Nathaniel River APRN Critical care provider statement: Critical care time (minutes): 90 Critical care time was exclusive of: Separately billable procedures and treating other patients Critical care was time spent personally by me on the following activities: Review of old charts, ordering and review of radiographic studies, ordering and review of laboratory studies, ordering and performing treatments and interventions, development of treatment plan with patient or surrogate, evaluation of patient's response to treatment, examination of patient and obtaining history from patient or surrogate Comments: This patient is critically ill with shock requiring vasopressors and IVF boluses to maintain vital organ perfusion. Thus far, I have spent the above referenced minutes, devoted solely to this patient managing life/organ supporting interventions that required physical assessment. This includes time spent making adjustments in vasopressor medications and IV fluid administration, reviewing and adjusting antibiotics and all medications, discussion of patient with consultants and other care providers as well as updating patient and/or family (if patient by virtue of his/her condition is unable to participate in decision making). This does not include time spent performing separately billed procedures. Time is not concurrent with that of other providers. us Nathaniel River APRN IN CLINIC/BEDSIDE ORDERA BLES Final Result * Methicillin Resistant Staphylococcus aureus (MRSA) by PCR (08/17/2025 5:44 PM EDT) Methicillin Resistant Staphylococcus aureus (MRSA) by PCR Not Detected Not Detected 08/17/2025 9:18 PM EDT [facility] Swab Both anterior nares / Unknown Non-blood Collection / Unknown 08/17/2025 5:44 PM EDT 08/17/2025 5:50 PM EDT Narrative [facility] - 08/17/2025 9:18 PM EDT This test is FDA approved for use with nares swab specimens using the eSwabs. This test is used for clinical purposes. It should not be regarded as investigational or for research. This laboratory is certified under the Clinical Laboratory improvement Amendments of 1988 (CLIA-88 as qualified to perform high complexity clinical laboratory testing. us Shantel Bashir MD LAB MICROBIOLOGY - GENERA L ORDERABLES Final Result [facility] [address] [place] [address] * (ABNORMAL) Blood gas panel, venous (08/17/2025 11:54 AM EDT) Only the most recent of4 resultswithin the time period is included. pH, Venous 7.45(H) 7.32 - 7.43 LAB HEMATOLOGY METHOD 08/17/2025 11:54 AM EDT [facility] pCO2, Venous 43 37 - 52 mmHg LAB HEMATOLOGY METHOD 08/17/2025 11:54 AM EDT [facility] pO2, Venous 51(H) 25 - 40 mmHg LAB HEMATOLOGY METHOD 08/17/2025 11:54 AM EDT [facility] SO2, Measured, Venous 86(H) 65 - 80 % LAB HEMATOLOGY METHOD 08/17/2025 11:54 AM EDT [facility] Base Excess, Venous 5.4(H) -2.0 - 3.0 mmol/L LAB HEMATOLOGY METHOD 08/17/2025 11:54 AM EDT [facility] Bicarbonate, Calculated, Venous 30(H) 22 - 26 mmol/L LAB HEMATOLOGY METHOD 08/17/2025 11:54 AM EDT [facility] Hematocrit, Whole Blood 23.6(L) 34.0 - 45.0 % LAB HEMATOLOGY METHOD 08/17/2025 11:54 AM EDT [facility] Sodium, Whole Blood 132(L) 136 - 145 mmol/L LAB HEMATOLOGY METHOD 08/17/2025 11:54 AM EDT [facility] Potassium, Whole Blood 3.8 3.6 - 4.9 mmol/L LAB HEMATOLOGY METHOD 08/17/2025 11:54 AM EDT [facility] Chloride, Whole Blood 99 97 - 107 mmol/L LAB HEMATOLOGY METHOD 08/17/2025 11:54 AM EDT [facility] Glucose, Whole Blood 112(H) 74 - 99 mg/dL LAB HEMATOLOGY METHOD 08/17/2025 11:54 AM EDT [facility] Lactate, Venous, Whole Blood 1.7 0.5 - 2.2 mmol/L LAB HEMATOLOGY METHOD 08/17/2025 11:54 AM EDT [facility] Ionized Calcium, Whole Blood 4.7 4.6 - 5.1 mg/dL LAB HEMATOLOGY METHOD 08/17/2025 11:54 AM EDT [facility] Blood Venous blood specimen / Unknown 08/17/2025 11:51 AM EDT us Shantel Bashir MD LAB BLOOD ORDERABLES Rosa Maria driscoll Result [facility] [address] [place] [address] * (ABNORMAL) Bacterial ID Gram Positive (08/17/2025 11:47 AM EDT) [facility] Staphylococcus Result Detected( A) Not Detected 08/18/2025 7:27 AM EDT [facility] Comment:Assess if contaminan t or clinically relevant pathogen. Consider clinical stability and immune status of patient. Staphylococcus epidermidis Result Detected( A) Not Detected 08/18/2025 7:27 AM EDT [facility] Comment:Assess if contaminan t or clinically relevant pathogen. Consider clinical stability and immune status of patient. MECA Result Detected( A) Not Detected 08/18/2025 7:27 AM EDT [facility] Blood Structure of antecubital vein / Unknown Venipuncture / Unknown 08/17/2025 11:47 AM EDT 08/17/2025 12:10 PM [facility] 7[facility]27 AM EDT Analytes include: Bacillus cereus group, Bacillus subtilis group, Corynebacterium, Cutibacterium acnes (P acnes), Enterococcus, Enterococcus faecalis, Enterococcus faecium, Lactobacillus, Listeria, Listeria monocytogenes, Micrococcus, Staphylococcus, Staphylococcus aureus, Staphylococcus epidermidis, Stapylcoccus lugdunesis, Streptococcus, Streptococcus agalactiae, Streptococcus anginosus group, Streptococcus pneumoniae, Streptococcus pyogenes, Liao gram negative target, Liao Cyndee target and mecA, mecC, Brayan and vanB resistance genes. NOTE: A Not Detected result for result for a resistance gene does not indicate susceptibility to antimicrobials by mechanisms other than carrying the resistance genes detected by the BCID-GP assay. . LIAO CYNDEE: Inclusive of Cyndee albicans, Cyndee glabrata, Pichia kudriavzevii (formerly Cyndee krusei) and Cyndee parapsilosis only. . LIAO GRAM NEGATIVE: Includes but not limited to Acinetobacter, Bacteroides, Enterobacteriaceae, Neisseria, Pseudomonas, Serratia, Stenotrophomonas maltophilia. . Reference Value: Not detected for all analytes tested. us Shantel Bashir MD LAB MICROBIOLOGY - GENERA L ORDERABLES Final Result [address] [address] * Signal Recognition Particle (SRP) Antibody (SO) (08/17/2025 5:07 AM EDT) Signal Recognition Particle (SRP) Ab See Note 09/10/2025 3:12 PM EDT [facility]) Blood Venous blood specimen / Unknown Venipuncture / Unknown 08/17/2025 5:07 AM EDT 08/17/2025 5:19 AM EDT [facility]) - 09/10/2025 3:12 PM EDT Anti-SRP Ab (RDL) Fasting: Not Given Current Result Previous Result Reference Test and Flag and Date Units Interval Anti-SRP Ab (RDL)(A) Negative Negative Previous Result The Previous Result is listed for the most recent test performed by [facility] in the past 5 years where there is sufficient patient demographic data to match the result to the patient. Results from certain tests are excluded from the Previous Result display. Icon Legend * Out of reference range Critical or Alert Footnotes/Disclaimers (A) This test was developed and its performance characteristics determined by [employer]. It has not been cleared or approved by the Food and Drug Administration. Test performed at: [facility] [address] [place] [address] Analysis Analyst: Kash Garcia MD us Shantel Bashir MD LAB REF LAB BLOOD AND FLU ID ORD Final Result [facility] ([facility]) [address] [place] [id number] * HMGCR AB IGG (SO) (08/17/2025 5:07 AM EDT) Only the most recent of2 resultswithin the time period is included. HMGCR ANTIBODY, IGG <3 0 - 19 Units 08/25/2025 6:48 PM EDT [facility] ([facility]) Blood Venous blood specimen / Unknown Venipuncture / Unknown 08/17/2025 5:07 AM EDT 08/17/2025 5:20 AM EDT Narrative [facility] ([facility]) - 08/25/2025 6:48 PM EDT INTERPRETIVE INFORMATION: HMGCR Antibody, IgG IgG antibodies to 6-fdjncbq-4-methylglutaryl-coenzyme A reductase (HMGCR) are mainly associated with necrotizing autoimmune myopathy (NAM) in a subset of statin-treated patients. Although infrequent, these antibodies may also be observed in statin-naive patients with NAM. Strong clinical correlation is recommended in the absence of muscle fiber necrosis, elevated serum creatine kinase, perimysial pathology, and/or statin exposure. This test was developed and its performance characteristics determined by [employer] [employer]. It has not been cleared or approved by the [place] Food and Drug Administration. This test was performed in a CLIA certified laboratory and is intended for clinical purposes. Performed By: [facility] [address] [place] [id number] Analysis Analyst: Esvin Pat MD, PhD CLIA Number: [id number] us Shantel Bashir MD LAB BLOOD ORDERABLES Rosa Maria yamila Result [facility] ([facility]) [address] [place] [address] * MR Tibia Fibula Left wo IV Contrast (08/15/2025 5:25 PM EDT) Anatomical Region Laterality Modality Lower Extremities Left Magnetic Reson ance Impressions 2025 7:54 AM EDT Incomplete examination. Within the limitation of the examination, there is T2 hyperintense signal throughout the visualized musculature, which could be concerning for myositis. There is blistering of the ankles and feet. Diffuse subcutaneous edema. CRITICAL RESULT: No. COMMUNICATION: Per this written report. Drafted by Aleida Blair MD on 2025 7:43 AM Final report signed by lAeida Blair MD on 2025 7:54 AM Narrative 2025 7:54 AM EDT CLINICAL INDICATION: Soft tissue mass, lower leg, US/xray nondiagnostic TECHNIQUE: Multiplanar multiecho sequences were obtained utilizing T1 and T2 weighting without the administration of intravenous contrast. The exam was protocoled to include administration of IV contrast, however the patient wasn't able to tolerate the exam any further due to pain. The noncontrast portion of the exam was not completed. COMPARISON: None. FINDINGS: Bone and Bone Marrow: Within limitations of the examination, bone marrow signal is within normal limits. No fracture, AVN or suspicious intraosseous lesion is identified. Soft Tissues: Diffuse T2 hyperintense signal throughout the visualized musculature, which includes the foreleg and distal thigh is. There are T2 hyperintense pockets of fluid superficially along the skin consistent with blistering. No knee or ankle joint effusion. Diffuse subcutaneous degenerative signal consistent with edema. Procedure Note Aleida Blair MD - 2025 CLINICAL INDICATION: Soft tissue mass, lower leg, US/xray nondiagnostic TECHNIQUE: Multiplanar multiecho sequences were obtained utilizing T1 and [id number] without the administration of intravenous contrast. The exam wasprotocoled to include administration of IV contrast, however the patientwasn't able to tolerate the exam any further due to pain. The noncontrastportion of the exam was not completed. COMPARISON: None. FINDINGS: Bone and Bone Marrow: Within limitations of the examination, bone marrowsignal is within normal limits. No fracture, AVN or suspiciousintraosseous lesion is identified. Soft Tissues: Diffuse T2 hyperintense signal throughout the visualizedmusculature, which includes the foreleg and distal thigh is. There are [id number] pockets of fluid superficially along the skin consistent withblistering. No knee or ankle joint effusion. Diffuse subcutaneousdegenerative signal consistent with edema. IMPRESSION: Incomplete examination. Within the limitation of the examination, there isT2 hyperintense signal throughout the visualized musculature, which couldbe concerning for myositis. There is blistering of the ankles and feet.Diffuse subcutaneous edema. CRITICAL RESULT: No. COMMUNICATION: Per this written report. Drafted by Aleida Blair MD on 2025 7:43 AM Final report signed by Aleida Blair MD on 2025 7:54 AM Shantel Bashir MD IMG MRI PROCEDURES Final Result * MR Tibia Fibula Right wo IV Contrast (08/15/2025 5:25 PM EDT) Anatomical Region Laterality Modality Lower Extremities Right Magnetic Reson ance Impressions 2025 7:54 AM EDT Incomplete examination. Within the limitation of the examination, there is T2 hyperintense signal throughout the visualized musculature, which could be concerning for myositis. There is blistering of the ankles and feet. Diffuse subcutaneous edema. CRITICAL RESULT: No. COMMUNICATION: Per this written report. Drafted by Aleida Blair MD on 2025 7:43 AM Final report signed by Aleida Blair MD on 2025 7:54 AM Narrative 2025 7:54 AM EDT CLINICAL INDICATION: Soft tissue mass, lower leg, US/xray nondiagnostic TECHNIQUE: Multiplanar multiecho sequences were obtained utilizing T1 and T2 weighting without the administration of intravenous contrast. The exam was protocoled to include administration of IV contrast, however the patient wasn't able to tolerate the exam any further due to pain. The noncontrast portion of the exam was not completed. COMPARISON: None. FINDINGS: Bone and Bone Marrow: Within limitations of the examination, bone marrow signal is within normal limits. No fracture, AVN or suspicious intraosseous lesion is identified. Soft Tissues: Diffuse T2 hyperintense signal throughout the visualized musculature, which includes the foreleg and distal thigh is. There are T2 hyperintense pockets of fluid superficially along the skin consistent with blistering. No knee or ankle joint effusion. Diffuse subcutaneous degenerative signal consistent with edema. Procedure Note Aleida Blair MD - 2025 CLINICAL INDICATION: Soft tissue mass, lower leg, US/xray nondiagnostic TECHNIQUE: Multiplanar multiecho sequences were obtained utilizing T1 and [id number] without the administration of intravenous contrast. The exam wasprotocoled to include administration of IV contrast, however the patientwasn't able to tolerate the exam any further due to pain. The noncontrastportion of the exam was not completed. COMPARISON: None. FINDINGS: Bone and Bone Marrow: Within limitations of the examination, bone marrowsignal is within normal limits. No fracture, AVN or suspiciousintraosseous lesion is identified. Soft Tissues: Diffuse T2 hyperintense signal throughout the visualizedmusculature, which includes the foreleg and distal thigh is. There are T0akjvoqyrzfrs pockets of fluid superficially along the skin consistent withblistering. No knee or ankle joint effusion. Diffuse subcutaneousdegenerative signal consistent with edema. IMPRESSION: Incomplete examination. Within the limitation of the examination, there isT2 hyperintense signal throughout the visualized musculature, which couldbe concerning for myositis. There is blistering of the ankles and feet.Diffuse subcutaneous edema. CRITICAL RESULT: No. COMMUNICATION: Per this written report. Drafted by Aleida Blair MD on 2025 7:43 AM Final report signed by Aleida Blair MD on 2025 7:54 AM us Shantel Bashir MD IMG MRI PROCEDURES Final Result * ECHO, ADULT TRANSTHORACIC COMPLETE (08/15/2025 3:06 PM EDT) BSA 1.86 m2 [facility] ISCV Height 163.0 [facility] ISCV Weight 80.0 [facility] ISCV LVIDd 39 mm [facility] ISCV LVIDs 26 mm [facility] ISCV IVSd 13 mm [facility] ISC[facility] LVPWd 12 mm [facility] ISCV LV MASS(C)D 169 g MARCE ISCV [facility] CV ECHO LV MASS INDEX 91 g/m2 MARCE ISCV LV RWT 0.64 mm MARCE ISCV Ao Root Diam 29 mm [facility] ISCV Ao V2 VTI 58.9 cm MAR[facility] ISCV Ao mean PG 31 mmHg [facility] ISCV Ao V2 Vmax 344.2 cm/s MARCE ISCV Ao max PG 47 mmHg [facility] ISCV Ao V2 mean 261.2 cm/s [facility] ISCV LV V1 VTI 20.2 cm MARCE ISCV LV V1 Vmax 142.9 cm/s MAR[facility] ISCV AV VTI Index 0.34 [facility] ISCV LV mean PG 4.3 mmHG [facility] ISCV LV V1 mean 97.8 cm/sec [facility] ISCV LV max PG 8.2 mmHg MAR[facility] ISCV TR Vmax 282.0 cm/s MARCE ISCV TR Max PG 32 mmHG MARCE ISCV RVSP 35 mmHg [facility] ISCV RAP systole 3 mmHg [facility] ISCV MPA diam 20 mm MAR[facility] ISCV MPA area 3.1 cm2 [facility] ISCV MV E Vmax 101.4 cm/s [facility] ISCV MV A Vmax 73.2 cm/s [facility] ISCV MV E/A 1.4 cm/s [facility] ISCV LAV(MOD-4ch) 75 mL [facility] ISCV Accel Time 80 ms [facility] ISCV LVET 230 ms [facility] ISCV AT/ET 0.35 [facility] ISCV Anatomical Region Laterality Modality Echocardiography Narrative 08/15/2025 4:29 PM EDT The left ventricle is small. There is concentric remodeling. The left ventricular systolic function is normal. The LVEF is visually estimated at [...] is no recent study available for direct [id number]-yh-[id number] comparison. Left Ventricle The left ventricle is small. There is concentric remodeling. The left ventricular systolic function is normal. The LVEF is visually estimated at 50 - 60%. Unable to assess diastolic function due to poor image quality. The septal motion is most consistent with septal translation associated with prior cardiac surgery. Right Ventricle The right ventricle is normal in size. The right ventricular systolic function is normal. Right ventricular systolic pressure is mildly elevated (35-50mmHg). Left Atrium The left atrial size is normal. The interatrial septum is intact with no evidence for an atrial septal defect. Right Atrium The right atrial size is normal. IVC/SVC Based on the IVC size and respiratory variation, the estimated right atrial pressure is 3mmHg. Mitral Valve The mitral valve leaflets are normal in appearance with no evidence of mitral valve prolapse. There is no mitral regurgitation. There is no mitral stenosis. Tricuspid Valve The tricuspid valve is normal in appearance. There is mild tricuspid regurgitation. There is no tricuspid stenosis. Aortic Valve There is a mechanical valve ([address] tiffany). There is no valvular regurgitation. There is no paravalvular leak. The acceleration time implies low (<96ms) clinical risk from associated valvular aortic stenosis. The dynamic ejection ratio (AT/ET) implies intermediate (0.31-0.36) clinical risk from associated valvular aortic stenosis. The peak gradient is 47 mmHg. The mean gradient is 31 mmHg. The gradient is abnormally high for this prosthetic valve. DVI 0.34. Pulmonic Valve The pulmonic valve was not well visualized. There is trace pulmonic regurgitation. There is no pulmonic stenosis. Pericardium No pericardial effusion. Great Vessels The aortic root is normal in size. The sinus of Valsalva (aortic root) diameter is 29 mm by leading edge to leading edge method. In the maximally visualized portion, the ascending aorta appears normal in size. In the maximally visualized portion, the aortic arch appears normal in size. The main pulmonary artery is not well visualized. Study Details A complete transthoracic echocardiogram using two-dimensional (2D), m-mode, color and spectral flow Doppler imaging was performed. During the study the apical, parasternal, subcostal and suprasternal view was captured. Overall the study quality was poor. The study was technically difficult due to patient's clinical status. Height: 163.0 cm. Weight: 80.0 kg. BSA: 1.86 m2. Study Recommendation There is no recent study available for direct xvul-og-rwls comparison. us Shantel Bashir MD CV ECHO PROCEDURES Final Result * XR Abdomen 1 View (08/15/2025 11:37 AM EDT) Anatomical Region Laterality Modality Body Digital Radiogra phy Impressions 08/15/2025 3:11 PM EDT The tip of the feeding tube is in the proximal duodenum. CRITICAL RESULT: No. COMMUNICATION: Per this written report. By electronically signing this report, I, the attending physician, attest that I have personally reviewed the images/data for the above examination(s) and agree with the final edited report. Drafted by Shane Hobson III, MD on 08/15/2025 2:06 PM Final report signed by Crow Redding MD on 08/15/2025 3:11 PM Narrative 08/15/2025 3:11 PM EDT CLINICAL INDICATION: Ensure NG in correct location TECHNIQUE: Supine radiograph of the abdomen. COMPARISON: CTA abdomen and pelvis dated 08/09/2025 FINDINGS: Limited cvhzh-fk-gcuo abdominal radiograph for the purpose of locating tube position. The tip of the feeding tube is in the proximal duodenum. An NG tube is not visualized. Procedure Note Crow Redding MD - 08/15/2025 CLINICAL INDICATION: Ensure NG in correct location TECHNIQUE: Supine radiograph of the abdomen. COMPARISON: CTA abdomen and pelvis dated 08/09/2025 FINDINGS: Limited ujhdy-mn-etov abdominal radiograph for the purpose of locatingtube position. The tip of the feeding tube is in the proximal duodenum. An NG tube is not visualized. IMPRESSION: The tip of the feeding tube is in the proximal duodenum. CRITICAL RESULT: No. COMMUNICATION: Per this written report. By electronically signing this report, I, the attending physician, attestthat I have personally reviewed the images/data for the aboveexamination(s) and agree with the final edited report. Drafted by Shane Hobson III, MD on 08/15/2025 2:06 PM Final report signed by Crow Redding MD on 08/15/2025 3:11 PM Shantel Bashir MD IMG XR PROCEDURES Final R esult * Light Green Top (08/15/2025 3:03 AM EDT) [facility] Extra Hold for add-ons 08/15/2025 8:02 AM EDT [facility] Comment:Auto resulted. Blood Venous blood specimen / Unknown 08/15/2025 3:03 AM EDT 08/15/2025 5:11 AM EDT Shantel Bashir MD LAB BLOOD ORDERABLES Rosa Maria l Result [facility] [address] [place] [address] * Human Immunodeficiency Virus (HIV-1) Quantitative PCR (08/12/2025 5:12 PM EDT) [facility] Human Immunodeficiency Virus (HIV-1) Quant Interpretation Not Detected Not Detected 08/15/2025 9:44 PM EDT [facility] Blood Venous blood specimen / Unknown Venipuncture / Unknown 08/12/2025 5:12 PM EDT 08/12/2025 5:17 PM EDT Narrative [facility] - 08/15/2025 9:44 PM EDT The Elizalde M2000 HIV-1 test is a Real Time in vitro nucleic acid amplification test for the quantitation of Human Immunodeficiency Virus (HIV-1) RNA in human plasma in HIV-infected individuals. It is intended to quantify HIV-1 in patients who are infected with the virus. The dynamic range for this test is log10 = 1.60 to 7.00 and/or 40 to 10,000,000 copies/mL. The limit of detection (LOD) for this assay is 40 copies/mL and the limit of quantitaion (LOQ) is 40 copies/mL. This assay is FDA approved for clinical use. This assay should not be used to screen patients receiving gene therapy with HIV-1 based lentiviral vectors as false positives may be seen. Shantel Bashir MD LAB BLOOD ORDERABLES Rosa Maria l Result [facility] [address] [place] [address] * (ABNORMAL) [facility] B VIRUS AB (SO) (08/12/2025 1:12 PM EDT) [facility] TYPE B2 1:10 <1:10 08/21/2025 3:36 PM EDT [facility] ([facility]) [facility] TYPE B3 1:160(H) <1:10 08/21/2025 3:36 PM EDT [facility] ([facility]) [facility] TYPE B1 <1:10 <1:10 08/21/2025 3:36 PM EDT [facility] ([facility]) [facility] TYPE B4 1:20 <1:10 08/21/2025 3:36 PM EDT [facility] ([facility]) [facility] TYPE B5 <1:10 <1:10 08/21/2025 3:36 PM EDT [facility] ([facility]) [facility] TYPE B6 <1:10 <1:10 08/21/2025 3:36 PM EDT [facility] ([facility]) Venous blood specimen / Unknown 08/12/2025 1:12 PM EDT 08/12/2025 1:13 PM EDT Narrative [facility] ([facility]) - 08/21/2025 3:36 PM EDT INTERPRETIVE INFORMATION: [place] B Virus Single positive antibody titers of greater than or equal to 1:80 may indicate past or current infection. Sero- conversion or an increase in titers between acute and convalescent sera of at least fourfold is considered strong evidence of current or recent infection. Performed By: [facility] [address] [place] [id number] Analysis Analyst: Esvin Pat MD, PhD CLIA Number: [id number] Shantel Bashir MD LAB BLOOD ORDERABLES Rosa Maria l Result [facility] ([employer]) [address] [place] [address] * Coxsackie A Virus Antibody (08/12/2025 12:07 PM EDT) [facility] A2 ANTIBODY <1:8 08/23/2025 4:50 PM EDT [facility] A4 ANTIBODY <1:8 08/23/2025 4:50 PM EDT [facility] ([facility]) [facility] A7 ANTIBODY <1:8 08/23/2025 4:50 PM EDT [facility] A9 ANTIBODY <1:8 08/23/2025 4:50 PM EDT [facility] ([facility]) [facility] A10 ANTIBODY <1:8 08/23/2025 4:50 PM EDT [facility] A16 ANTIBODY <1:8 08/23/2025 4:50 PM EDT [facility] ([facility]) Blood Venous blood specimen / Unknown Venipuncture / Unknown 08/12/2025 12:07 PM EDT 08/12/2025 1:13 PM EDT Narrative [facility] ([facility]) - 08/23/2025 4:50 PM EDT REFERENCE RANGE: <1:8 INTERPRETIVE CRITERIA: <1:8 Antibody Not Detected > or = 1:8 Antibody Detected Single titers of > or = 1:32 are indicative of recent infection. Titers of 1:8 or 1:16 may be indicative of either past or recent infection, since CF antibody levels persist for only a few months. A four-fold or greater increase in titer between acute and convalescent specimens confirms the diagnosis. There is considerable crossreactivity among enteroviruses; however, the highest titer is usually associated with the infecting serotype. This test was developed and its analytical performance characteristics have been determined by [facility]. It has not been cleared or approved by FDA. This assay has been validated pursuant to the CLIA regulations and is used for clinical purposes. Performed at [facility], [address] [place] [id number], Kaylah Álvarez MD, Ph.D, Director, [facility] [id number] Shantel Bashir MD LAB BLOOD ORDERABLES Rosa Maria l Result [facility] ([facility]) [address] [place] [id number] * Urea nitrogen, urine (08/12/2025 9:15 AM EDT) Urea Nitrogen, Urine 794 mg/dL 08/12/2025 12:37 PM EDT [facility] Urine Urine specimen obtained by clean catch procedure / Unknown Non-blood Collection / Unknown 08/12/2025 9:15 AM EDT 08/12/2025 9:21 AM EDT Shantel Bashir MD LAB URINE ORDERABLES Rosa Maria l Result Performing Organization Address City/[facility]/ZIP Co de Phone Number [facility] [address] [place] [address] * Osmolality, urine (08/12/2025 9:15 AM EDT) Osmolality, Urine 488 50 - 1,200 mOsm/kg 08/12/2025 12:15 PM EDT [facility] Urine Urine specimen obtained by clean catch procedure / Unknown Non-blood Collection / Unknown 08/12/2025 9:15 AM EDT 08/12/2025 9:21 AM EDT Result [facility] Shantel Bashir MD LAB URINE ORDERABLES Rosa Maria l Result Performing Organization Address City/[facility]/ZIP Co de Phone Number [facility] [address] [place] [address] * Creatinine, urine, random (08/12/2025 9:15 AM EDT) Creatinine, Urine 50 mg/dL 08/12/2025 9:45 AM EDT [facility] Urine Urine specimen obtained by clean catch procedure / Unknown Non-blood Collection / Unknown 08/12/2025 9:15 AM EDT 08/12/2025 9:21 AM EDT Result [facility] Shantel Bashir MD LAB URINE ORDERABLES Rosa Maria l Result Performing Organization Address [facility] de Phone Number [facility] [address] [place] [address] * (ABNORMAL) Osmolality (08/12/2025 5:22 AM EDT) Pathologist [facility] Osmolality, Serum 270(L) 275 - 295 mOsm/Kg 08/12/2025 11:53 AM EDT [facility] Blood Venous blood specimen / Unknown Venipuncture / Unknown 08/12/2025 5:22 AM EDT 08/12/2025 5:35 AM EDT us Shantel Bashir MD LAB BLOOD ORDERABLES Rosa Maria l Result Performing Organization Address [facility] de Phone Number [facility] [address] [place] [address] * (ABNORMAL) BETA HYDROXYBUTYRIC ACID (08/10/2025 7:58 PM EDT) Pathologist [facility] Beta-Hydroxybu tyric Acid, Plasma 1.61(H) <=0.27 mmol/L 08/10/2025 8:39 PM EDT [facility] Blood Venous blood specimen / Unknown Venipuncture / Unknown 08/10/2025 7:58 PM EDT 08/10/2025 8:15 PM EDT us Emma Lehman MD LAB BLOOD ORDERABLES Final Resu lt Performing Organization Address [facility] Co de Phone Number [facility] [address] [place] [address] * XR Foot Right 3+ Views (08/09/2025 5:24 PM EDT) Anatomical Region Laterality Modality Lower Extremities, Foot Right Digital Radiography Impressions 08/10/2025 7:42 AM EDT No acute osseous findings. Diffuse soft tissue swelling. CRITICAL RESULT: No. COMMUNICATION: Per this written report. Drafted by Luca Ribeiro MD on 08/10/2025 7:41 AM Final report signed by Luca Ribeiro MD on 08/10/2025 7:42 AM Narrative 08/10/2025 7:42 AM EDT CLINICAL INDICATION: Trauma; Possible cause for rhabdo TECHNIQUE: XR FOOT RIGHT 3+ VIEWS COMPARISON: None. FINDINGS: Diffuse osteopenia. No acute displaced fractures or dislocations. 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 Bipartite medial and lateral sesamoids. Diffuse soft tissue swelling, pronounced in the dorsal aspect of the foot. Procedure Note Luca Hebert MD - 08/10/2025 CLINICAL INDICATION: Trauma; Possible cause for rhabdo TECHNIQUE: XR FOOT RIGHT 3+ VIEWS COMPARISON: None. FINDINGS: Diffuse osteopenia. No acute displaced fractures or dislocations. 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 Bipartite medial and lateral sesamoids. Diffuse soft tissue swelling, pronounced in the dorsal aspect of thefoot. IMPRESSION: No acute osseous findings. Diffuse soft tissue swelling. CRITICAL RESULT: No. COMMUNICATION: Per this written report. Drafted by Luca Ribeiro MD on 08/10/2025 7:41 AM Final report signed by Luca Ribeiro MD on 57:42 AM us Emma Lehman MD IMG XR PROCEDURES Final Result * VAS US Venous Duplex Lower Extremity Bilateral (08/09/2025 4:09 PM EDT) Anatomical Region Laterality Modality Lower Extremities Bilateral Ultrasound Impressions 08/09/2025 5:03 PM EDT No DVT. CRITICAL RESULT: No. COMMUNICATION: Per this written report. Drafted by Radha Mcmahon MD on 08/09/2025 5:02 PM Final report signed by Radha Mcmahon MD on 08/09/2025 5:03 PM Narrative 08/09/2025 5:03 PM EDT CLINICAL INDICATION: Acute Limb Swelling TECHNIQUE: Multiplanar robb scale and Doppler vascular sonographic imaging of the deep veins of the bilateral lower extremity(s), from groin to knee, without and with compression. Doppler imaging and spectral analysis was used to evaluate blood flow in vascular structures. COMPARISON: None. FINDINGS: The visualized deep veins demonstrate flow and are compressible. No evidence of deep venous thrombosis. Procedure Note Radha Mcmahon MD - 08/09/2025 CLINICAL INDICATION: Acute Limb Swelling TECHNIQUE: Multiplanar robb scale and Doppler vascular sonographic imaging of thedeep veins of the bilateral lower extremity(s), from groin to knee,without and with compression. Doppler imaging and spectral analysis wasused to evaluate blood flow in vascular structures. COMPARISON: None. FINDINGS: The visualized deep veins demonstrate flow and are compressible. Noevidence of deep venous thrombosis. IMPRESSION: No DVT. CRITICAL RESULT: No. COMMUNICATION: Per this written report. Drafted by Radha Mcmahon MD on 08/09/2025 5:02 PM Final report signed by Radha Mcmahon MD on 08/09/2025 5:03 PM us Emma Lehman MD CV VASCULAR PROCEDURES Final Re sult * US Abdomen Doppler Complete (08/09/2025 3:56 PM EDT) Anatomical Region Laterality Modality Abdomen Ultrasound Impressions 08/09/2025 4:58 PM EDT Somewhat Limited exam due to overlying bowel gas. Accounting for this, grossly patent imaged hepatic vasculature CRITICAL RESULT: No. COMMUNICATION: Per this written report. Drafted by Radha Mcmahon MD on 08/09/2025 4:56 PM Final report signed by Radha Mcmahon MD on 08/09/2025 4:58 PM Narrative 08/09/2025 4:58 PM EDT CLINICAL INDICATION: elevated liver enzymes TECHNIQUE: Multiplanar evaluation of the hepatic vasculature was undertaken, including the acquisition of Color and Spectral Doppler images. Limited grayscale images were also obtained. COMPARISON: None. FINDINGS: Grayscale: Small volume ascites is incidentally noted. Duplex: Portal Vein: There is antegrade flow within the main portal vein with a velocity of 40 cm/sec. Hepatic Artery: Somewhat limited evaluation due to overlying bowel gas. The resistive index measures 0.7. The measured peak systolic velocity is 74 cm/sec. Hepatic Veins: The hepatic veins are patent at the IVC confluence with normal direction of flow. Other: N/A Procedure Note Radha Mcmahon MD - 08/09/2025 CLINICAL INDICATION: elevated liver enzymes TECHNIQUE: Multiplanar evaluation of the hepatic vasculature was undertaken,including the acquisition of Color and Spectral Doppler images. Limitedgrayscale images were also obtained. COMPARISON: None. FINDINGS: Grayscale: Small volume ascites is incidentally noted. Duplex: Portal Vein: There is antegrade flow within the main portal vein with avelocity of 40 cm/sec. Hepatic Artery: Somewhat limited evaluation due to overlying bowel gas.The resistive index measures 0.7. The measured peak systolic velocity is74 cm/sec. Hepatic Veins: The hepatic veins are patent at the IVC confluence withnormal direction of flow. Other: N/A IMPRESSION: Somewhat Limited exam due to overlying bowel gas. Accounting for this,grossly patent imaged hepatic vasculature CRITICAL RESULT: No. COMMUNICATION: Per this written report. Drafted by Radha Mcmahon MD on 08/09/2025 4:56 PM Final report signed by Radha Mcmahon MD on 08/09/2025 4:58 PM us Emma Lehman MD IMG US PROCEDURES Final Result * (ABNORMAL) Peripheral Blood Smear (08/09/2025 2:42 PM EDT) WBC Count 10.21 3.70 - 10.30 10*3/uL LAB HEMATOLOGY METHOD 08/09/2025 3:46 PM EDT [facility] RBC Count 3.31(L) 3.90 - 5.20 10*6/uL LAB HEMATOLOGY METHOD 08/09/2025 3:46 PM EDT [facility] HGB 10.0(L) 11.2 - 15.7 g/dL LAB HEMATOLOGY METHOD 08/09/2025 3:46 PM EDT [facility] HCT 28.5(L) 34.0 - 45.0 % LAB HEMATOLOGY METHOD 08/09/2025 3:46 PM EDT [facility] Platelet Count 397(H) 155 - 369 10*3/uL LAB HEMATOLOGY METHOD 08/09/2025 3:46 PM EDT [facility] MCV 86 79 - 98 fL LAB HEMATOLOGY METHOD 08/09/2025 3:46 PM EDT [facility] MCH 30.2 26.0 - 32.0 pg LAB HEMATOLOGY METHOD 08/09/2025 3:46 PM EDT [facility] MCHC 35.1 30.7 - 35.5 g/dL LAB HEMATOLOGY METHOD 08/09/2025 3:46 PM EDT [facility] RDW 12.5 11.5 - 14.5 % LAB HEMATOLOGY METHOD 08/09/2025 3:46 PM EDT [facility] MPV 9.8 8.8 - 12.5 fL LAB HEMATOLOGY METHOD 08/09/2025 3:46 PM EDT [facility] nRBC 0.3(H) <=0.0 per 100 WBCs LAB HEMATOLOGY METHOD 08/09/2025 3:46 PM EDT [facility] Differential Type Automated LAB HEMATOLOGY METHOD 08/09/2025 3:46 PM EDT [facility] Neutrophils % 75 % LAB HEMATOLOGY METHOD 08/09/2025 3:46 PM EDT [facility] Lymphocytes % 10 % LAB HEMATOLOGY METHOD 08/09/2025 3:46 PM EDT [facility] Monocytes % 8 % LAB HEMATOLOGY METHOD 08/09/2025 3:46 PM EDT [facility] Eosinophils % 4 % LAB HEMATOLOGY METHOD 08/09/2025 3:46 PM EDT [facility] Basophils % 0 % LAB HEMATOLOGY METHOD 08/09/2025 3:46 PM EDT [facility] Immature Granulocytes % 3 % LAB HEMATOLOGY METHOD 08/09/2025 3:46 PM EDT [facility] Neutrophils Absolute 7.56(H) 1.60 - 6.10 10*3/uL LAB HEMATOLOGY METHOD 08/09/2025 3:46 PM EDT [facility] Lymphocytes Absolute 1.02(L) 1.20 - 3.90 10*3/uL LAB HEMATOLOGY METHOD 08/09/2025 3:46 PM EDT [facility] Monocytes Absolute 0.83 0.30 - 0.90 10*3/uL LAB HEMATOLOGY METHOD 08/09/2025 3:46 PM EDT [facility] Eosinophils Absolute 0.44 0.00 - 0.50 10*3/uL LAB HEMATOLOGY METHOD 08/09/2025 3:46 PM EDT [facility] Basophils Absolute 0.03 0.00 - 0.10 10*3/uL LAB HEMATOLOGY METHOD 08/09/2025 3:46 PM EDT [facility] Immature Granulocytes Absolute 0.33(H) 0.00 - 0.06 10*3/uL LAB HEMATOLOGY METHOD 08/09/2025 3:46 PM EDT [facility] Blood Venous blood specimen / Unknown Venipuncture / Unknown 08/09/2025 2:42 PM EDT 08/09/2025 2:49 PM EDT Narrative [facility] - 08/09/2025 3:46 PM EDT Therapeutic decision making should be based on absolute values, rather than percentages. Emma Lehman MD LAB PATHOLOGY ORDERABLES Final Result Performing Organization Address City/[facility] Co de Phone Number [facility] [facility] [address] [place] [address] * Peripheral blood smear, pathologist interpretation (08/09/2025 2:42 PM EDT) Clinical Diagnosis, Peripheral Smear anemia LAB HEMATOLOGY METHOD 08/10/2025 3:02 PM EDT [facility] Interpretation , Peripheral Smear Anemia with polychromasia and rare nucleated red blood cells Neutrophilia with increased immature granulocytes (left shift) Platelets with unremarkable morphology 08/10/2025 3:02 PM EDT [facility] Pathologist Signature, Peripheral Smear 08/10/2025 3:02 PM EDT [facility] Comment:Reviewed by: Marilynn Peralta MD LAB CP ASR DISCLAIMER No 08/10/2025 3:02 PM EDT [facility] Blood Venous blood specimen / Unknown Venipuncture / Unknown 08/09/2025 2:42 PM EDT 08/09/2025 2:49 PM EDT Emma Lehman MD LAB PATHOLOGY ORDERABLES Final Result Performing Organization Address City/[facility] Co de Phone Number [facility] [address] [place] [address] * Streptococcus pneumoniae and Legionella Urinary Antigen (08/09/2025 11:58 AM EDT) Legionella pneumophila serogroup 1 Antigen Result (Urine) Negative Negative 08/10/2025 6:50 AM EDT [facility] Streptococcus pneumoniae Antigen Result (Urine) Negative Negative 08/10/2025 6:50 AM EDT [facility] Urine Urine specimen obtained by clean catch procedure / Unknown Non-blood Collection / Unknown 08/09/2025 11:58 AM EDT 08/09/2025 12:11 PM EDT Emma Lehman MD LAB MICROBIOLOGY - GENERAL ORDE [facility] Final Result Performing Organization Address City/[facility]/ZIP Co de Phone Number [facility] [address] [place] [address] * PCCA/DARNELL BY IFA, SERUM (08/09/2025 11:46 AM EDT) Purkinje Cell/Neuronal Nuclear IgG Screen None Detected None Detected 08/13/2025 10:38 PM EDT [facility] [employer] ([facility]) Blood Venous blood specimen / Unknown Venipuncture / Unknown 08/09/2025 11:46 AM EDT 08/09/2025 12:13 PM EDT Narrative [facility]) - 08/13/2025 10:38 PM EDT DARNELL-1, DARNELL-2, PCCA-1 or PCCA-Tr(DNER) antibodies not detected. No further testing will be performed. INTERPRETIVE INFORMATION: Purkinje Cell/Neuronal Nuclear IgG Scrn This test was developed and its performance characteristics determined by [employer]. It has not been cleared or approved by the US Food and Drug Administration. This test was performed in a CLIA certified laboratory and is intended for clinical purposes. Performed By: [employer] [address] [place] [address] Analysis Analyst: Esvin Pat MD, PhD CLIA Number: [id number] Emma Lehman MD LAB BLOOD ORDERABLES Final Resu lt Performing Organization Address City/[facility] Co de Phone Number [facility] [employer] [facility]) [address] [place] [address] * Tissue Transglutaminase (tTG) Ab, IgA (SO) (08/09/2025 11:46 AM EDT) Tissue Transglutaminase (tTG) Ab, IgA <1.02 0.00 - 4.99 FLU 08/11/2025 1:57 AM EDT [facility] [employer] ([facility]) Blood Venous blood specimen / Unknown Venipuncture / Unknown 08/09/2025 11:46 AM EDT 08/09/2025 12:13 PM EDT Narrative [facility] ([facility]) - 08/11/2025 1:57 AM EDT INTERPRETIVE INFORMATION: Tissue Transglutaminase (tTG) Antibody, IgA Presence of the tissue transglutaminase (tTG) IgA antibody is associated with gluten-sensitive enteropathies such as celiac disease and dermatitis herpetiformis. Individuals with positive results should be confirmed with small intestinal biopsy to establish celiac disease diagnosis. tTG IgA antibody concentrations greater than 50 FLU exhibits higher correlation with results of duodenal biopsies consistent with celiac disease. For antibody concentrations greater than or equal to 5 FLU but less than 10 FLU, additional testing for endomysial (RADHA) IgA concentrations may improve the positive predictive value for disease. A decrease in tTG IgA antibody concentration after initiation of a gluten-free diet may indicate a response to therapy. Performed By: [employer] [address] [place] [address] Analysis Analyst: Esvin Pat MD, PhD CLIA Number: [id number] Emma Lehman MD LAB REF LAB BLOOD AND FLUID ORD Final Result [facility] ([facility]) [address] [place], [place] [id number] * Wilbert Ambrosio Virus (EBV) Quantitative PCR (08/09/2025 11:46 AM EDT) Wilbert Ambrosio Virus, Blood, Quant DNA Interpretation Not Detected Not Detected 08/11/2025 12:06 PM EDT [facility] Blood Venous blood specimen / Unknown Venipuncture / Unknown 08/09/2025 11:46 AM EDT 08/09/2025 12:13 PM EDT Narrative [facility] - 08/11/2025 12:06 PM EDT EBV Linear Range: 2.7 to 6.7 log10 IU/mL (500 to 5 x 10e6 IU/mL) The limit of Detection (LOD) of this qPCR assay is 313 IU/mL [2.5 log10 IU/mL] and the Limit of Quantitation (LOQ) is 500 IU/mL [2.7 log10 IU/mL]. Results should be used in conjunction with clinical findings and should not be used as the sole basis for a diagnosis or treatment decision. This PCR assay was developed and it's performance characteristics determined by [facility] as appropriate for clinical purposes. This assay has not been cleared or approved by the FDA, but is performed in a CLIA regulated laboratory that is qualified to perform high-complexity testing. EBV Linear Range: 2.7 to 6.7 log10 IU/mL (500 to 5 x 10e6 IU/mL) The limit of Detection (LOD) of this qPCR assay is 313 IU/mL [2.5 log10 IU/mL] and the Limit of Quantitation (LOQ) is 500 IU/mL [2.7 log10 IU/mL]. Results should be used in conjunction with clinical findings and should not be used as the sole basis for a diagnosis or treatment decision. This PCR assay was developed and it's performance characteristics determined by [facility] as appropriate for clinical purposes. This assay has not been cleared or approved by the FDA, but is performed in a CLIA regulated laboratory that is qualified to perform high-complexity testing. us Emma Lehman MD LAB BLOOD ORDERABLES Final Resu lt [facility] [address] [place] [id number] * (ABNORMAL) NEURONAL NUCLEAR ANTIBODIES (HU, RI, YO, TR/DNER) IGG BY IMMUNOBLOT, SERUM (SO) (08/09/2025 11:46 AM EDT) Purkinje Cell Ab (Yo) IgG, IB, Ser High Positive(A) Negative 08/12/2025 1:50 PM EDT [facility] ([employer]) Purkinje Cell Ab (TR/DNER) IgG, IB, Ser Negative Negative 08/12/2025 1:50 PM EDT [facility] ([employer]) Neuronal Nuclear Ab (Ri) IgG, IB, Serum Negative Negative 08/12/2025 1:50 PM EDT [facility] ([employer]) Neuronal Nuclear Ab (Hu) IgG, IB, Serum Negative Negative 08/12/2025 1:50 PM EDT [facility] ([employer]) Blood Venous blood specimen / Unknown Venipuncture / Unknown 08/09/2025 11:46 AM EDT 08/09/2025 12:13 PM EDT Narrative [facility] ([facility]) - 08/12/2025 1:50 PM EDT INTERPRETIVE INFORMATION: Neuronal Nuclear Ab IgG, Immunoblot, Ser This test detects IgG antineuronal antibodies to Hu, Ri, Yo and Tr (DNER) antigens. Antineuronal antibodies serve as markers that aid in discriminating between a true paraneoplastic neurological disorder (PND) and other inflammatory disorders of the nervous system. Anti-Hu (antineuronal nuclear antibody, type I) is associated with small-cell lung cancer. Anti-Ri (antineuronal nuclear antibody, type II) is associated with neuroblastoma in children and with fallopian tube and breast cancer in adults. Anti-Yo (anti-Purkinje cell cytoplasmic antibody) is associated with ovarian and breast cancer. Anti-Tr(DNER) is associated with Hodgkin's lymphoma. The presence of one or more of these antineuronal antibodies detected by both immunoblot (IB) and immunofluorescence (IFA) supports a clinical diagnosis of PND and should lead to a focused search for the underlying neoplasm. A positive IB result but negative IFA result is of questionable clinical significance. Thus, strong clinical correlation is recommended. This test was developed and its performance characteristics determined by [employer]. It has not been cleared or approved by the US Food and Drug Administration. This test was performed in a CLIA certified laboratory and is intended for clinical purposes. INTERPRETIVE INFORMATION: Neuronal Nuclear Ab (Ri) IgG, IB, Serum This test was developed and its performance characteristics determined by [employer]. It has not been cleared or approved by the US Food and Drug Administration. This test was performed in a CLIA certified laboratory and is intended for clinical purposes. Yo antibody detected, therefore PCCA/DARNELL by IFA with reflex to titer to be performed. INTERPRETIVE INFORMATION: Purkinje Cell Ab (Yo) IgG, IB, Ser This test was developed and its performance characteristics determined by [employer]. It has not been cleared or approved by the US Food and Drug Administration. This test was performed in a CLIA certified laboratory and is intended for clinical purposes. INTERPRETIVE INFORMATION: Purkinje Cell Ab (TR/DNER) IgG, IB, Ser This test was developed and its performance characteristics determined by [employer]. It has not been cleared or approved by the US Food and Drug Administration. This test was performed in a CLIA certified laboratory and is intended for clinical purposes. Performed By: [employer] [address] [place] [id number] Analysis Analyst: Esvin Pat MD, PhD CLIA Number: [id number] Emma Lehman MD LAB BLOOD ORDERABLES Final Resu lt [facility] [employer]) [address] [place] [address] * Cytomegalovirus (CMV) Quantitative PCR (08/09/2025 11:46 AM EDT) Cytomegalovirus (CMV) Quantitative Interpretation Not Detected Not Detected 08/12/2025 7:[address] [facility] Blood Venous blood specimen / Unknown Venipuncture / Unknown 08/09/2025 11:46 AM EDT 08/09/2025 12:12 PM EDT Narrative [facility] - 08/12/2025 7:44 AM EDT The [employer] M2000 CMV test is a Real Time in vitro nucleic acid amplification test for the quantitation of Cytomegalovirus (CMV) DNA in human plasma in CMV infected individuals. It is intended to quantify CMV in patients who are infected with this virus. The dynamic range for this test is log10 = 1.70 to 8.19 and/or 50 to 156,000,000 IU/mL. The limit of detection (LOD) for this assay is 31.20 IU/mL and the limit of quantitation (LOQ) is 50 IU/mL. This assay is FDA approved for clinical use. Emma Lehman MD LAB BLOOD ORDERABLES Final Resu lt Performing Organization Address City/[facility]/ZIP Co de Phone Number [facility] [address] [place] [address] * IG Profile (08/09/2025 11:46 AM EDT) IGA 87 75 - 400 mg/dL 08/09/2025 1:58 PM EDT [facility] IGG 910 720 - 1,589 mg/dL 08/09/2025 1:58 PM EDT [facility] IGM 46 35 - 225 mg/dL 08/09/2025 1:58 PM EDT [facility] Blood Venous blood specimen / Unknown Venipuncture / Unknown 08/09/2025 11:46 AM EDT 08/09/2025 12:13 PM EDT Emma Lehman MD LAB BLOOD ORDERABLES Final Resu lt Performing Organization Address City/[facility]/ZIP Co de Phone Number [facility] [address] [place] [address] * HIV 1 & 2 Antibody/Antigen Screen (08/09/2025 11:46 AM EDT) [facility] HIV 1 & 2 Antibody/Antigen Screen Non Reactive Non Reactive 08/09/2025 12:51 PM EDT [facility] Comment:Screening for HIV 1 & 2 antibodies, and P24 antigen is NONREACTIVE. No confirmatory testing is required. Blood Venous blood specimen / Unknown Venipuncture / Unknown 08/09/2025 11:46 AM EDT 08/09/2025 12:13 PM EDT Emma Lehman MD LAB BLOOD ORDERABLES Final Resu lt Performing Organization Address [facility] de Phone Number [facility] [address] [place] [address] * (ABNORMAL) [id number]-[id number] Enzyme Concentration (SO) (08/09/2025 11:46 AM EDT) [facility] ALPHA 1 ANTITRYPSIN 327(H) 90 - 200 mg/dL 08/10/2025 9:21 PM EDT [facility] ([facility]) Blood Venous blood specimen / Unknown Venipuncture / Unknown 08/09/2025 11:46 AM EDT 08/09/2025 12:13 PM EDT Narrative [facility] ([facility]) - 08/10/2025 9:21 PM EDT To convert to umol/L, multiply mg/dL by 0.185 Performed By: [employer] [address] [place] [id number] Analysis Analyst: Esvin Pat MD, PhD CLIA Number: [id number] Emma Lehman MD LAB BLOOD ORDERABLES Final Resu lt Performing Organization Address City/[facility]/ZIP Co de Phone Number [facility] ([employer]) [address] [place] [address] * Anti-scleroderma antibody (08/09/2025 11:46 AM EDT) SCLERODERMA (SCL-70) (PAPA) ANTIBODY, IGG 0 0 - 40 AU/mL 08/11/2025 8:57 PM EDT [facility] ([facility]) Blood Venous blood specimen / Unknown Venipuncture / Unknown 08/09/2025 11:46 AM EDT 08/09/2025 12:13 PM EDT Narrative [facility] ([facility]) - 08/11/2025 8:57 PM EDT INTERPRETIVE INFORMATION: Scleroderma (Scl-70) (PAPA) Ab, IgG 29 AU/mL or Less ............. Negative 30 - 40 AU/mL ................ Equivocal 41 AU/mL or Greater .......... Positive The presence of Scl-70 antibodies (also referred to as topoisomerase I, pancho-I or GELACIO) is considered diagnostic for systemic sclerosis (SSc). Scl-70 antibodies alone are detected in about 20 percent of SSc patients and are associated with the diffuse form of the disease, which may include specific organ involvement and poor prognosis. Scl-70 antibodies have also been reported in a varying percentage of patients with systemic lupus erythematosus (SLE). Scl-70 (pancho-1) is a DNA binding protein and anti-DNA/DNA complexes in the sera of SLE patients may bind to pancho-I, leading to a false-positive result. The presence of Scl-70 antibody in sera may also be due to contamination of recombinant Scl-70 with DNA derived from cellular material used in immunoassays. Strong clinical correlation is recommended if both Scl-70 and dsDNA antibodies are detected. Negative results do not necessarily rule out the presence of SSc. If clinical suspicion remains, consider further testing for centromere, RNA polymerase III and U3-[employer], PM/Scl, or Th/To antibodies. Performed By: [employer] [address] [place] [address] Analysis Analyst: Esvin Pat MD, PhD CLIA Number: [id number] us Emma Lehman MD LAB BLOOD ORDERABLES Final Resu lt [facility] ([facility]) [address] [place] [address] * Ceruloplasmin (08/09/2025 11:46 AM EDT) Pathologist [facility] Ceruloplasmin 36 20 - 60 mg/dL 08/12/2025 1:[address] [facility] Blood Venous blood specimen / Unknown Venipuncture / Unknown 08/09/2025 11:46 AM EDT 08/09/2025 12:13 PM EDT Emma Lehman MD LAB BLOOD ORDERABLES Final Resu lt [facility] [address] [place] [address] * Double-Stranded DNA (dsDNA) Antibody, IgG by IFA (08/09/2025 11:46 AM EDT) Pathologist [facility] Double-Strande d DNA (dsDNA) Ab IgG IFA <1:10 <1:10 08/12/2025 2:40 PM EDT [facility] ([facility]) Blood Venous blood specimen / Unknown Venipuncture / Unknown 08/09/2025 11:46 AM EDT 08/09/2025 12:13 PM EDT Narrative [facility] ([facility]) - 08/12/2025 2:40 PM EDT INTERPRETIVE INFORMATION: Double-Stranded DNA (dsDNA) Antibody, IgG by IFA (using Crithidia luciliae) Positivity for anti-double stranded DNA (anti-dsDNA) IgG antibody is a diagnostic criterion of systemic lupus erythematosus (SLE). The presence of the anti-dsDNA IgG antibody is identified by IFA titer (Crithidia luciliae indirect fluorescent test [DEANA]). DEANA is highly specific for SLE with a sensitivity of 50-60 percent. Some patients with early or inactive SLE may be positive for anti-dsDNA IgG by BIJAL but negative by DEANA. If the DEANA result is negative but the patient has a positive BIJAL and clinical suspicion remains, consider antinuclear antibody (BINH) testing by IFA. Additional information and recommendations for testing may be found at [email or web address]. Performed By: [employer] [address] [place] [address] Analysis Analyst: Esvin Pat MD, PhD CLIA Number: [id number] Emma Lehman MD LAB BLOOD ORDERABLES Final Resu lt Performing Organization Address [facility] Co de Phone Number [facility] [address] [place] [address] * (ABNORMAL) Aldolase (08/09/2025 11:46 AM EDT) Pathologist [facility] ALDOLASE 219.0(H) 1.2 - 7.6 U/L 08/10/2025 9:28 PM EDT [facility] ([facility]) Blood Venous blood specimen / Unknown Venipuncture / Unknown 08/09/2025 11:46 AM EDT 08/09/2025 12:13 PM EDT Narrative [facility] ([facility]) - 08/10/2025 9:28 PM EDT REFERENCE INTERVAL: Aldolase Access complete set of age- and/or gender-specific reference intervals for this test in the [employer] [facility] Test Directory ([employer]). Performed By: [employer] [address] [place] [address] Analysis Analyst: Esvin Pat MD, PhD CLIA Number: [id number] Emma Lehman MD LAB BLOOD ORDERABLES Final Resu lt Performing Organization Address City/[facility] Co de Phone Number [facility] ([facility]) [address] [place] [address] * Rheumatoid factor, Plasma (08/09/2025 11:46 AM EDT) Pathologist [facility] Rheumatoid Factor, Plasma <10 <14 IU/mL 08/09/2025 1:58 PM EDT [facility] Blood Venous blood specimen / Unknown Venipuncture / Unknown 08/09/2025 11:46 AM EDT 08/09/2025 12:13 PM EDT us Emma Lehman MD LAB BLOOD ORDERABLES Final Resu lt [facility] [address] [place] [address] * Antinuclear Antibody (BINH) with HEp-2 Substrate, IgG by IFA (08/09/2025 11:46 AM EDT) BINH INTERPRETIVE COMMENT See Note 08/13/2025 3:07 PM EDT [facility] ([employer]) Anti Nuc Ab Screen <1:80 <1:80 08/13/2025 3:07 PM EDT [facility] ([employer]) Blood Venous blood specimen / Unknown Venipuncture / Unknown 08/09/2025 11:46 AM EDT 08/09/2025 12:13 PM EDT Narrative [facility] ([employer]) - 08/13/2025 3:07 PM EDT Clinical Interpretation: Antinuclear antibodies by IFA negative for homogeneous, speckled, nucleolar, centromere, and nuclear dots patterns. Cytoplasmic reticular/AMA pattern Clinical Associations: PBC, SSc, PBC-SSc overlap syndrome, and PBC-SjS overlap syndrome Main autoantibodies: Anti-mitochondrial antibody List of Abbreviations Antimitochondrial antibodies (AMA), Antisynthetase syndrome (ARS), chronic active hepatitis (CAH), inflammatory myopathies (IM) [dermatomyositis (DM), polymyositis (PM), necrotizing autoimmune myopathy (NAM)], interstitial lung disease (ILD), juvenile idiopathic arthritis (JORI), mixed connective tissue disease (MCTD), primary biliary cholangitis (PBC), rheumatoid arthritis (RA), systemic autoimmune rheumatic diseases (SARD), Sjogren syndrome (SjS), systemic lupus erythematosus (SLE), systemic sclerosis (SSc), undifferentiated connective tissue disease (UCTD). INTERPRETIVE INFORMATION: BINH Interpretive Comment Presence of antinuclear antibodies (BINH) is a hallmark feature of systemic autoimmune rheumatic diseases (SARD). However, BINH lacks diagnostic specificity and is associated with a variety of diseases (cancers, autoimmune, infectious, and inflammatory conditions) and may also occur in healthy individuals in varying prevalence. The lack of diagnostic specificity requires confirmation of positive BINH by more specific serologic tests. BINH (nuclear reactivity) positive patterns reported include centromere, homogeneous, nuclear dots, nucleolar, or speckled. BINH (cytoplasmic reactivity) positive patterns reported include reticular/AMA, discrete/GW body-like, polar/golgi-like, cytoplasmic speckled or rods and rings. All positive patterns are reported to endpoint titers (1:2560). Reported patterns may help guide differential diagnosis, although they may not be specific for individual antibodies or diseases. Mitotic staining patterns not reported. Negative results do not necessarily rule out SARD. Performed By: [employer] [address] [place] [id number] Analysis Analyst: Esvin Pat MD, PhD CLIA Number: [id number] Emma Lehman MD LAB BLOOD ORDERABLES Final Resu lt Performing Organization Address City/[facility]/ZIP Co de Phone Number [facility] ([employer]) [address] [place] [phone] * Iron, Plasma (08/09/2025 11:46 AM EDT) Iron, Plasma 51 30 - 160 ug/dL 08/09/2025 1:58 PM EDT [facility] Blood Venous blood specimen / Unknown Venipuncture / Unknown 08/09/2025 11:46 AM EDT 08/09/2025 12:13 PM EDT Emma Lehman MD LAB BLOOD ORDERABLES Final Resu lt [facility] [address] [place] [address] * (ABNORMAL) Ferritin, Serum (08/09/2025 11:46 AM EDT) Only the most recent of2 resultswithin the time period is included. Ferritin, Serum 482(H) 13 - 150 ng/mL 08/09/2025 1:46 PM EDT [facility] Blood Venous blood specimen / Unknown Venipuncture / Unknown 08/09/2025 11:46 AM EDT 08/09/2025 12:13 PM EDT us Emma Lehman MD LAB BLOOD ORDERABLES Final Resu lt Performing Organization Address City/[facility]/ZIP Co de Phone Number [facility] [address] [place] [address] * SARS CoV-2/COVID-19 by PCR (08/09/2025 11:45 AM EDT) [facility] SARS CoV-2/COVID-1 9 RNA PCR Result Not Detected Not Detected 08/10/2025 3:03 PM EDT [facility] Swab Nasopharyngeal structure / Unknown Non-blood Collection / Unknown 08/09/2025 11:45 AM EDT 08/09/2025 12:11 PM EDT Narrative [facility] - 08/10/2025 3:03 PM EDT This test is FDA approved for use with nasopharyngeal specimens in [employer] (VTM). This test is used for clinical purposes. It should not be regarded as investigational or for research. This laboratory is certified under the Clinical Laboratory improvement Amendments of 1988 (CLIA-88 as qualified to perform high complexity clinical laboratory testing. This test was performed using the [employer] SARS CoV-2 assay, a PCR-based method. Negative results should be considered presumptive and do not preclude current or future infection obtained through community transmission or other exposures. Negative results must be considered in the context of an individual's recent exposures, history, presence of clinical signs and symptoms consistent with COVID-19. us Emma Lehman MD LAB MICROBIOLOGY - [facility] Final Result Performing Organization Address City/[facility] Co de Phone Number [facility] [address] [place] [address] * Nasopharyngeal Respiratory Panel (08/09/2025 11:45 AM EDT) [facility] Nasopharyngeal Respiratory PCR Interpretation Not Detected for all analytes Not Detected for all analytes 08/09/2025 5:51 PM EDT [facility] Swab Nasopharyngeal structure / Unknown Non-blood Collection / Unknown 08/09/2025 11:45 AM EDT 08/09/2025 12:11 PM EDT Narrative [facility] - 08/09/2025 5:51 PM EDT This assay can detect Adenovirus, Coronavirus, Human Metapneumovirus, Human Rhino/Enterovirus, Influenza A, Influenza A H1, Influenza A H1 2009, Influenza A H3, Influenza B, Parainfluenza Virus 1, Parainfluenza Virus 2, Parainfluenza Virus 3, Parainfluenza Virus 4, Respiratory Syncytial Virus A, Respiratory Syncytial Virus B, Chlamydia pneumoniae, and Mycoplasma pneumoniae. Note: This assay does NOT detect SARS/CoV, novel Coronavirus 2019-nCoV, Bordetella pertussis or Bordetella parapertussis. Nasopharyngeal Respiratory PCR Panel is performed using the [employer] Promotionslex instrument. This test is FDA approved for use with Nasopharyngeal swabs only. This test is used for clinical purposes. It should not be regarded as investigational or for research. The [facility] Clinical Microbiology Laboratory is certified under the Clinical Laboratory Improvement Amendments of 1988 (CLIA-88) as qualified to perform high complexity clinical laboratory testing. Emma Lehman MD LAB MICROBIOLOGY - [facility] Final Result Performing Organization Address City/[facility]/ZIP Co de Phone Number [facility] [address] [place] [address] * TSH Reflex FT4 (08/09/2025 5:24 AM EDT) Thyroid Stimulating Hormone, Plasma 0.55 0.40 - 4.20 uIU/mL 08/09/2025 10:17 AM EDT [facility] Blood Venous blood specimen / Unknown Venipuncture / Unknown 08/09/2025 5:24 AM EDT 08/09/2025 5:35 AM EDT Narrative [facility] - 08/09/2025 10:17 AM EDT Trimester Specific Ranges TSH ( IU/mL) 1st Trimester 0.1 - 3.0 2nd Trimester 0.19 - 4.06 3rd Trimester 0.3 - 3.7 Emma Lehman MD LAB BLOOD ORDERABLES Final Resu lt Performing Organization Address City/[facility]/ZIP Co de Phone Number [facility] [address] [place] [phone] * (ABNORMAL) Basic Metabolic Panel, Plasma (08/09/2025 5:24 AM EDT) Only the most recent of4 resultswithin the time period is included. Glucose, Plasma 121(H) 74 - 99 mg/dL 08/09/2025 5:56 AM EDT [facility] BUN, Plasma 10 7 - 21 mg/dL 08/09/2025 5:56 AM EDT [facility] Creatinine, Plasma 0.35(L) 0.60 - 1.10 mg/dL 08/09/2025 5:56 AM EDT [facility] BUN/Creatinine Ratio 29 08/09/2025 5:56 AM EDT [facility] Sodium, Plasma 125(L) 136 - 145 mmol/L 08/09/2025 5:56 AM EDT [facility] Potassium, Plasma 4.5 3.6 - 4.9 mmol/L 08/09/2025 5:56 AM EDT [facility] Chloride, Plasma 97 97 - 107 mmol/L 08/09/2025 5:56 AM EDT [facility] CO2, Plasma 19(L) 22 - 29 mmol/L 08/09/2025 5:56 AM EDT [facility] Anion Gap 9 6 - 16 mmol/L 08/09/2025 5:56 AM EDT [facility] Total Calcium, Plasma 7.9(L) 8.9 - 10.2 mg/dL 08/09/2025 5:56 AM EDT [facility] eGFRcr 127.0 mL/min/1.7 3m*2 08/09/2025 5:56 AM EDT [facility] Comment:Reported eGFRcr in m L/min/1.73m2 is based the CKD-EPI 2020 equation that does not use a race coefficient. Blood Venous blood specimen / Unknown Venipuncture / Unknown 08/09/2025 5:24 AM EDT 08/09/2025 5:35 AM EDT us Emma Lehman MD LAB BLOOD ORDERABLES Final Resu lt [facility] [address] [place] [address] * (ABNORMAL) Comprehensive Urine Drug Screening, Qualitative Assay, >= 27 Drug Classes (53:58 AM EDT) Only the most recent of2 resultswithin the time period is included. Acetaminophen Negative Negative 08/11/2025 12:06 AM EDT [facility] Alprazolam Negative Negative 08/11/2025 12:06 AM EDT [facility] Amantadine Negative Negative 08/11/2025 12:06 AM EDT [facility] Amitriptyline Negative Negative 08/11/2025 12:06 AM EDT [facility] Amphetamine Negative Negative 08/11/2025 12:06 AM EDT [facility] Atenolol Negative Negative 08/11/2025 12:06 AM EDT [facility] Benzoylecgonine Negative Negative 12:06 AM EDT [facility] Bisoprolol Negative Negative 08/11/2025 12:06 AM EDT [facility] Bupropion Negative Negative 08/11/2025 12:06 AM EDT [facility] Butalbital Negative Negative 08/11/2025 12:06 AM EDT [facility] Carbamazepine Negative Negative 08/11/2025 12:06 AM EDT [facility] Carisoprodol Negative Negative 08/11/2025 12:06 AM EDT [facility] Chlorpheniramine Negative Negative 08/11/20 12:06 AM EDT [facility] Citalopram Negative Negative 08/11/2025 12:06 AM EDT [facility] Clindamycin Negative Negative 08/11/2025 12:06 AM EDT [facility] Clonidine Negative Negative 08/11/2025 12:06 AM EDT [facility] Clopidogrel / Ticlopidine Negative Negative 08/11/2025 12:06 AM EDT [facility] Cocaethylene Negative Negative 08/11/2025 12:06 AM EDT [facility] Cocaine Negative Negative 08/11/2025 12:06 AM EDT [facility] Codeine Negative Negative 08/11/2025 12:06 AM EDT [facility] Cyclobenzaprine Negative Negative 12:06 AM EDT [facility] Desvenlafaxine Negative Negative 08/11/2025 12:06 AM EDT [facility] Dextromethorphan Negative Negative 08/11/20 12:06 AM EDT [facility] Diazepam Negative Negative 08/11/2025 12:06 AM EDT [facility] Diltiazem Negative Negative 08/11/2025 12:06 AM EDT [facility] Diphenhydramine Negative Negative 12:06 AM EDT [facility] Doxepine Negative Negative 08/11/2025 12:06 AM EDT [facility] Doxylamine Negative Negative 08/11/2025 12:06 AM EDT [facility] EDDP-Methadone metabolite Negative Negative 08/11/2025 12:06 AM EDT [facility] Fentanyl Negative Negative 08/11/2025 12:06 AM EDT [facility] Fluconazole Negative Negative 08/11/2025 12:06 AM EDT [facility] Fluoxetine Negative Negative 08/11/2025 12:06 AM EDT [facility] Guaifenesin Negative Negative 08/11/2025 12:06 AM EDT [facility] Haloperidol Negative Negative 08/11/2025 12:06 AM EDT [facility] Heroin/6-BRENDAN Negative Negative 08/11/2025 12:06 AM EDT [facility] Hydrocodone Negative Negative 08/11/2025 12:06 AM EDT [facility] Hydroxyzine / Cetirizine metabolite Negative Negative 08/11/2025 12:06 AM EDT [facility] Ibuprofen Negative Negative 08/11/2025 12:06 AM EDT [facility] Imipramine Negative Negative 08/11/2025 12:06 AM EDT [facility] Ketamine Negative Negative 08/11/2025 12:06 AM EDT [facility] Labetolol Negative Negative 08/11/2025 12:06 AM EDT [facility] Lamotrigine Negative Negative 08/11/2025 12:06 AM EDT [facility] Levetiracetam Positive(A) Negative 08/11/2025 12:06 AM EDT [facility] Lidocaine Negative Negative 08/11/2025 12:06 AM EDT [facility] MDA Negative Negative 08/11/2025 12:06 AM EDT [facility] MDMA Negative Negative 08/11/2025 12:06 AM EDT [facility] Memantine Negative Negative 08/11/2025 12:06 AM EDT [facility] Meperidine Negative Negative 08/11/2025 12:06 AM EDT [facility] Meprobamate Negative Negative 08/11/2025 12:06 AM EDT [facility] Metaxalone Negative Negative 08/11/2025 12:06 AM EDT [facility] Methamphetamine Negative Negative 12:06 AM EDT [facility] Methocarbamol Negative Negative 08/11/2025 12:06 AM EDT [facility] Methylecgonine Negative Negative 08/11/2025 12:06 AM EDT [facility] Metoclopramide Negative Negative 08/11/2025 12:06 AM EDT [facility] Metoprolol Negative Negative 08/11/2025 12:06 AM EDT [facility] Metronidazole Negative Negative 08/11/2025 12:06 AM EDT [facility] Midazolam Negative Negative 08/11/2025 12:06 AM EDT [facility] Midazolam Metabolite Negative Negative 08/11/2025 12:06 AM EDT [facility] Mirtazapine Negative Negative 08/11/2025 12:06 AM EDT [facility] Misc Test Result Negative Negative 08/11/20 12:06 AM EDT [facility] Naproxen Negative Negative 08/11/2025 12:06 AM EDT [facility] Nefazodone Negative Negative 08/11/2025 12:06 AM EDT [facility] Norfentanyl Negative Negative 08/11/2025 12:06 AM EDT [facility] Nortriptyline Negative Negative 08/11/2025 12:06 AM EDT [facility] Ordanstron Negative Negative 08/11/2025 12:06 AM EDT [facility] Oxcarbazepine Negative Negative 08/11/2025 12:06 AM EDT [facility] Oxycodone Positive(A) Negative 08/11/2025 12:06 AM EDT [facility] Paroxethine Negative Negative 08/11/2025 12:06 AM EDT [facility] Phenobarbital Negative Negative 08/11/2025 12:06 AM EDT [facility] Phentermine Negative Negative 08/11/2025 12:06 AM EDT [facility] Phenytoin Negative Negative 08/11/2025 12:06 AM EDT [facility] Primidone Negative Negative 08/11/2025 12:06 AM EDT [facility] Promethazine Negative Negative 08/11/2025 12:06 AM EDT [facility] Propofol Negative Negative 08/11/2025 12:06 AM EDT [facility] Propranolol Negative Negative 08/11/2025 12:06 AM EDT [facility] Quetiapine Negative Negative 08/11/2025 12:06 AM EDT [facility] Quinine Negative Negative 08/11/2025 12:06 AM EDT [facility] Rantidine Negative Negative 08/11/2025 12:06 AM EDT [facility] Sertraline Negative Negative 08/11/2025 12:06 AM EDT [facility] Spironolactone Negative Negative 08/11/2025 12:06 AM EDT [facility] Tizanidine Negative Negative 08/11/2025 12:06 AM EDT [facility] Topiramate Negative Negative 08/11/2025 12:06 AM EDT [facility] Tramadol Negative Negative 08/11/2025 12:06 AM EDT [facility] Trazadone/ Trazadone metabolite Negative Negative 08/11/2025 12:06 AM EDT [facility] Trimethoprim Negative Negative 08/11/2025 12:06 AM EDT [facility] Valproic Acid Negative Negative 08/11/2025 12:06 AM EDT [facility] Venlafaxine Negative Negative 08/11/2025 12:06 AM EDT [facility] Verapamil Negative Negative 08/11/2025 12:06 AM EDT [facility] Zolpidem Negative Negative 08/11/2025 12:06 AM EDT [facility] Xylazine Negative Negative 08/11/2025 12:06 AM EDT [facility] Urine Urine specimen obtained by clean catch procedure / Unknown Non-blood Collection / Unknown 08/09/2025 3:58 AM EDT 08/09/2025 4:32 AM EDT us Tammy Bustamante MD LAB URINE ORDERABLES Final Resu lt Performing Organization Address [facility]/ZIP Co de Phone Number [facility] [address] [place] [address] * (ABNORMAL) Acetaminophen, Quantitative, Plasma (08/09/2025 3:57 AM EDT) Acetaminophen <5.0(L) 10.0 - 30.0 g/mL 08/09/2025 5:52 AM EDT [facility] Blood Venous blood specimen / Unknown Venipuncture / Unknown 08/09/2025 3:57 AM EDT 08/09/2025 4:30 AM EDT Narrative [facility] - 08/09/2025 5:52 AM EDT Therapeutic: 10 to 30 ug/mL Supratherapeutic: >35 ug/mL us Tammy Bustamante MD LAB BLOOD ORDERABLES Final Resu lt Performing Organization Address City/[facility]/[place] [address] * Hepatitis panel, acute (08/09/2025 3:57 AM EDT) Hepatitis B Surf Antigen Negative Negative 08/09/2025 5:37 AM EDT [facility] Hepatitis C Antibody Negative Negative 08/09/2025 5:37 AM EDT [facility] Hepatitis A Antibody IgM Negative Negative 08/09/2025 5:37 AM EDT [facility] Hepatitis B Core Antibody IgM Negative Negative 08/09/2025 5:37 AM EDT [facility] Blood Venous blood specimen / Unknown Venipuncture / Unknown 08/09/2025 3:57 AM EDT 08/09/2025 4:29 AM EDT us Tammy Bustamante MD LAB BLOOD ORDERABLES Final Resu lt Performing Organization Address City/[facility]/ZIP Co de Phone Number [facility] [address] [place] [address] * C3 complement (08/09/2025 3:57 AM EDT) C3 Complement 156 84 - 166 mg/dL 08/09/2025 10:03 AM EDT [facility] Blood Venous blood specimen / Unknown Venipuncture / Unknown 08/09/2025 3:57 AM EDT 08/09/2025 4:29 AM EDT us Emma Lehman MD LAB BLOOD ORDERABLES Final Resu lt Performing Organization Address [facility]/ZIP Co de Phone Number [facility] [address] [place] [address] * C4 complement (08/09/2025 3:57 AM EDT) C4 Complement 19 13 - 36 mg/dL 08/09/2025 10:03 AM EDT [facility] Blood Venous blood specimen / Unknown Venipuncture / Unknown 08/09/2025 3:57 AM EDT 08/09/2025 4:29 AM EDT us Emma Lehman MD LAB BLOOD ORDERABLES Final Resu lt Performing Organization Address City/[facility]/ZIP Co de Phone Number [facility] [address] [place] [address] * (ABNORMAL) Triglycerides (08/09/2025 3:57 AM EDT) Triglycerides, Plasma 150(H) <150 mg/dL 08/09/2025 5:53 AM EDT [facility] Comment: Triglyceride Reference Range (age >17 years): Desirable: <150 mg/dL Borderline high: 150 to 199 mg/dL High: 200 to 499 mg/dL Very high: >499 mg/dL Increased risk of pancreatitis: >1000 mg/dL Triglyceride Reference Range (age >17 years): Desirable: <150 mg/dL Borderline high: 150 to 199 mg/dL High: 200 to 499 mg/dL Very high: >499 mg/dL Increased risk of pancreatitis: >1000 mg/dL Triglyceride Reference Range (age >17 years): Desirable: <150 mg/dL Borderline high: 150 to 199 mg/dL High: 200 to 499 mg/dL Very high: >499 mg/dL Increased risk of pancreatitis: >1000 mg/dL Fasting greater than or equal to 12 hours? Yes 08/09/2025 5:53 AM EDT [facility] Blood Venous blood specimen / Unknown Venipuncture / Unknown 08/09/2025 3:57 AM EDT 08/09/2025 4:30 AM EDT us Tammy Bustamante MD LAB BLOOD ORDERABLES Final Resu lt Performing Organization Address [facility] [place] [address] * (ABNORMAL) LDH, Lactate dehydrogenase (08/09/2025 3:57 AM EDT) LDH, Plasma 3,210(H) 116 - 250 U/L 08/09/2025 6:01 AM EDT [facility] Blood Venous blood specimen / Unknown Venipuncture / Unknown 08/09/2025 3:57 AM EDT 08/09/2025 4:30 AM EDT us Tammy Bustamante MD LAB BLOOD ORDERABLES Final Resu lt Performing Organization Address [facility] de Phone Number [facility] [address] [place] [address] * (ABNORMAL) Haptoglobin, Serum (08/09/2025 3:57 AM EDT) Haptoglobin, Serum 23(L) 40 - 219 mg/dL 08/09/2025 10:03 AM EDT [facility] Blood Venous blood specimen / Unknown Venipuncture / Unknown 08/09/2025 3:57 AM EDT 08/09/2025 4:29 AM EDT us Emma Lehman MD LAB BLOOD ORDERABLES Final Resu lt Performing Organization Address City/[facility] Co de Phone Number [facility] [address] [place] [address] * Salicylate level (08/09/2025 3:57 AM EDT) Salicylate, Quantitative, Plasma <1.0 <25 mg/dL mg/dL 08/09/2025 5:52 AM EDT [facility] Blood Venous blood specimen / Unknown Venipuncture / Unknown 08/09/2025 3:57 AM EDT 08/09/2025 4:30 AM EDT Narrative [facility] - 08/09/2025 5:52 AM EDT Therapeutic Range: <25 mg/dL Supratherapeutic Level: >30 mg/dL us Tammy Bustamante MD LAB BLOOD ORDERABLES Final Resu lt [facility] [address] [place] [address] * CT Angio Abdomen Pelvis w Runoff (08/09/2025 1:17 AM EDT) Anatomical Region Laterality Modality Pelvis and lower extremeties Bilateral Com puted Tomography Impressions 08/09/2025 2:13 AM EDT 1. No acute vascular pathology within the chest abdomen or pelvis. No findings of splenic laceration. 2. Small left pleural effusion with associated atelectasis. 3. Moderate amount of free fluid within the abdomen and pelvis. 4. The free fluid in the abdomen demonstrates sedimentation effect in the pelvis consistent with high density. This could be blood or contrast in the setting of vicarious excretion with renal failure. 5. Diffuse lower abdominal wall anasarca all the way down to the distal bilateral thighs. 6. Patent bilateral lower extremity vasculature. CRITICAL RESULT: No. COMMUNICATION: Per this written report. By electronically signing this report, I, the attending physician, attest that I have personally reviewed the images/data for the above examination(s) and agree with the final edited report. Drafted by Jag Gregorio MD on 08/09/2025 1:47 AM Final report signed by Marty Rajput MD on 08/09/2025 2:13 AM Narrative 08/09/2025 2:13 AM EDT CLINICAL INDICATION: Aortic infection or inflammation TECHNIQUE: Imaging of the chest abdomen and pelvis was performed, from thoracic inlet through bilateral lower extremities, using spiral technique, following administration of IV contrast, Omnipaque 350, 100 mL according to the CTA thoracic aorta/chest and CTA Abdomen/Pelvis with Runoff protocol. Reformatted images in the coronal, sagittal, and oblique planes were generated from the axial data set to facilitate diagnostic accuracy. In addition, 3D images were created and reviewed. Total DLP (Dose-Length Product): 3890.87 mGy.cm (accession [id number]), 3890.87 mGy.cm (accession [id number]). Please note: The reported value represents the total of one or more individual components during the CT acquisition on this date and at this time, and as such, the same value may appear in more than one CT report depending on the interpreting/reporting physicians. COMPARISON: None. FINDINGS: Chest: Aorta/Vessels: No acute thoracic aortic pathology. No periaortic hematoma. No filling defect within the pulmonary arteries to suggest pulmonary embolism. Pleural/Pericardial Space: No pneumothorax. Small left pleural effusion. No pericardial effusion. Lymph Nodes: No lymphadenopathy within the chest. Lungs: Central airways are patent. Mild upper lobe predominant centrilobular emphysema. No focal consolidation. Mild bibasilar atelectasis. Mediastinum: Otherwise unremarkable. Prior aortic valve replacement. Chest wall: No chest wall hematoma or contusion. Bones: No acute fracture within the chest. Abdomen: Vessels: The abdominal aorta and its major branches are unremarkable. Liver/Gallbladder/Biliary System: The liver demonstrates homogeneous enhancement. Surgically absent gallbladder. No intra- or extra-hepatic biliary ductal dilatation. Spleen: No evidence of laceration of the spleen, elbow, limited due to lack of portal venous phase. Pancreas: The pancreas enhances homogeneously. Adrenals: Mild bilateral adrenal gland thickening. Kidneys: The kidneys demonstrate symmetric nephrogram and excretion. No renal or ureteral calculi. No hydronephrosis. Bowel/Mesentery: The small bowel loops are not dilated. The large bowel loops are not dilated. The appendix is not well-visualized. Lymph Nodes: No lymphadenopathy within the abdomen or pelvis. Fluid Survey: Moderate amount of free fluid within the abdomen. Moderate amount of free fluid within the pelvis. Pelvis: Hatr catheter visualized and an appropriate position with contrast in the bladder. There is layering of hematoma posterior to the bladder. Body Wall: Diffuse body wall anasarca ranging from the lower abdomen all the way down to the bilateral distal thighs. Bones: No acute fracture within the abdomen or pelvis. Lower Extremities: Right Lower Extremity: Right Common Iliac Artery: Patent. Right External Iliac Artery: Patent. Right Common Femoral Artery: Patent. Right Deep Femoral Artery: Patent. Right Superficial Femoral Artery: Patent. Right Popliteal Artery: Patent. Right Anterior Tibial Artery: Patent. Right Tibioperoneal Trunk: Patent. Right Posterior Tibial Artery: Patent. Right Peroneal Artery: Patent. Right Non-Vascular: Non-contributory. Left Lower Extremity: Left Common Iliac Artery: Patent. Left External Iliac Artery: Patent. Left Common Femoral Artery: Patent. Left Deep Femoral Artery: Patent. Left Superficial Femoral Artery: Patent. Left Popliteal Artery: Patent. Left Anterior Tibial Artery: Patent. Left Tibioperoneal Trunk: Patent. Left Posterior Tibial Artery: Patent. Left Peroneal Artery: Patent. Left Non-Vascular: Non-contributory. Procedure Note Marty Rajput MD - 08/09/2025 CLINICAL INDICATION: Aortic infection or inflammation TECHNIQUE: Imaging of the chest abdomen and pelvis was performed, from thoracic inletthrough bilateral lower extremities, using spiral technique, followingadministration of IV contrast, Omnipaque 350, 100 mL according to the CTAthoracic aorta/chest and CTA Abdomen/Pelvis with Runoff protocol.Reformatted images in the coronal, sagittal, and oblique planes weregenerated from the axial data set to facilitate diagnostic accuracy. Inaddition, 3D images were created and reviewed. Total DLP (Dose-Length Product): 3890.87 mGy.cm (accession [id number]),3890.87 mGy.cm (accession [id number]). Please note: The reported valuerepresents the total of one or more individual components during the CTacquisition on this date and at this time, and as such, the same value mayappear in more than one CT report depending on the interpreting/reportingphysicians. COMPARISON: None. FINDINGS: Chest: Aorta/Vessels: No acute thoracic aortic pathology. No periaortic hematoma.No filling defect within the pulmonary arteries to suggest pulmonaryembolism. Pleural/Pericardial Space: No pneumothorax. Small left pleural effusion.No pericardial effusion. Lymph Nodes: No lymphadenopathy within the chest. Lungs: Central airways are patent. Mild upper lobe predominantcentrilobular emphysema. No focal consolidation. Mild bibasilaratelectasis. Mediastinum: Otherwise unremarkable. Prior aortic valve replacement. Chest wall: No chest wall hematoma or contusion. Bones: No acute fracture within the chest. Abdomen: Vessels: The abdominal aorta and its major branches are unremarkable. Liver/Gallbladder/Biliary System: The liver demonstrates homogeneousenhancement. Surgically absent gallbladder. No intra- or extra-hepaticbiliary ductal dilatation. Spleen: No evidence of laceration of the spleen, elbow, limited due tolack of portal venous phase. Pancreas: The pancreas enhances homogeneously. Adrenals: Mild bilateral adrenal gland thickening. Kidneys: The kidneys demonstrate symmetric nephrogram and excretion. Norenal or ureteral calculi. No hydronephrosis. Bowel/Mesentery: The small bowel loops are not dilated. The large bowelloops are not dilated. The appendix is not well-visualized. Lymph Nodes: No lymphadenopathy within the abdomen or pelvis. Fluid Survey: Moderate amount of free fluid within the abdomen. Moderateamount of free fluid within the pelvis. Pelvis: Hart catheter visualized and an appropriate position withcontrast in the bladder. There is layering of hematoma posterior to thebladder. Body Wall: Diffuse body wall anasarca ranging from the lower abdomen allthe way down to the bilateral distal thighs. Bones: No acute fracture within the abdomen or pelvis. Lower Extremities: Right Lower Extremity: Right Common Iliac Artery: Patent. Right External Iliac Artery: Patent. Right Common Femoral Artery: Patent. Right Deep Femoral Artery: Patent. Right Superficial Femoral Artery: Patent. Right Popliteal Artery: Patent. Right Anterior Tibial Artery: Patent. Right Tibioperoneal Trunk: Patent. Right Posterior Tibial Artery: Patent. Right Peroneal Artery: Patent. Right Non-Vascular: Non-contributory. Left Lower Extremity: Left Common Iliac Artery: Patent. Left External Iliac Artery: Patent. Left Common Femoral Artery: Patent. Left Deep Femoral Artery: Patent. Left Superficial Femoral Artery: Patent. Left Popliteal Artery: Patent. Left Anterior Tibial Artery: Patent. Left Tibioperoneal Trunk: Patent. Left Posterior Tibial Artery: Patent. Left Peroneal Artery: Patent. Left Non-Vascular: Non-contributory. IMPRESSION: 1. No acute vascular pathology within the chest abdomen or pelvis. Nofindings of splenic laceration. 2. Small left pleural effusion with associated atelectasis. 3. Moderate amount of free fluid within the abdomen and pelvis. 4. The free fluid in the abdomen demonstrates sedimentation effect in thepelvis consistent with high density. This could be blood or contrast inthe setting of vicarious excretion with renal failure. 5. Diffuse lower abdominal wall anasarca all the way down to the distalbilateral thighs. 6. Patent bilateral lower extremity vasculature. CRITICAL RESULT: No. COMMUNICATION: Per this written report. By electronically signing this report, I, the attending physician, attestthat I have personally reviewed the images/data for the aboveexamination(s) and agree with the final edited report. Drafted by Jag Gregorio MD on 08/09/2025 1:47 AM Final report signed by Marty Rajput MD on 08/09/2025 2:13 AM Tammy Bustamante MD IMG CT PROCEDURES Final Result * CT Angio Chest (08/09/2025 1:17 AM EDT) Anatomical Region Laterality Modality Chest Computed Tomogra phy Impressions 08/09/2025 2:13 AM EDT 1. No acute vascular pathology within the chest abdomen or pelvis. No findings of splenic laceration. 2. Small left pleural effusion with associated atelectasis. 3. Moderate amount of free fluid within the abdomen and pelvis. 4. The free fluid in the abdomen demonstrates sedimentation effect in the pelvis consistent with high density. This could be blood or contrast in the setting of vicarious excretion with renal failure. 5. Diffuse lower abdominal wall anasarca all the way down to the distal bilateral thighs. 6. Patent bilateral lower extremity vasculature. CRITICAL RESULT: No. COMMUNICATION: Per this written report. By electronically signing this report, I, the attending physician, attest that I have personally reviewed the images/data for the above examination(s) and agree with the final edited report. Drafted by Jag Gregorio MD on 08/09/2025 1:47 AM Final report signed by Marty Rajput MD on 08/09/2025 2:13 AM Narrative 08/09/2025 2:13 AM EDT CLINICAL INDICATION: Aortic infection or inflammation TECHNIQUE: Imaging of the chest abdomen and pelvis was performed, from thoracic inlet through bilateral lower extremities, using spiral technique, following administration of IV contrast, Omnipaque 350, 100 mL according to the CTA thoracic aorta/chest and CTA Abdomen/Pelvis with Runoff protocol. Reformatted images in the coronal, sagittal, and oblique planes were generated from the axial data set to facilitate diagnostic accuracy. In addition, 3D images were created and reviewed. Total DLP (Dose-Length Product): 3890.87 mGy.cm (accession [id number]), 3890.87 mGy.cm (accession [id number]). Please note: The reported value represents the total of one or more individual components during the CT acquisition on this date and at this time, and as such, the same value may appear in more than one CT report depending on the interpreting/reporting physicians. COMPARISON: None. FINDINGS: Chest: Aorta/Vessels: No acute thoracic aortic pathology. No periaortic hematoma. No filling defect within the pulmonary arteries to suggest pulmonary embolism. Pleural/Pericardial Space: No pneumothorax. Small left pleural effusion. No pericardial effusion. Lymph Nodes: No lymphadenopathy within the chest. Lungs: Central airways are patent. Mild upper lobe predominant centrilobular emphysema. No focal consolidation. Mild bibasilar atelectasis. Mediastinum: Otherwise unremarkable. Prior aortic valve replacement. Chest wall: No chest wall hematoma or contusion. Bones: No acute fracture within the chest. Abdomen: Vessels: The abdominal aorta and its major branches are unremarkable. Liver/Gallbladder/Biliary System: The liver demonstrates homogeneous enhancement. Surgically absent gallbladder. No intra- or extra-hepatic biliary ductal dilatation. Spleen: No evidence of laceration of the spleen, elbow, limited due to lack of portal venous phase. Pancreas: The pancreas enhances homogeneously. Adrenals: Mild bilateral adrenal gland thickening. Kidneys: The kidneys demonstrate symmetric nephrogram and excretion. No renal or ureteral calculi. No hydronephrosis. Bowel/Mesentery: The small bowel loops are not dilated. The large bowel loops are not dilated. The appendix is not well-visualized. Lymph Nodes: No lymphadenopathy within the abdomen or pelvis. Fluid Survey: Moderate amount of free fluid within the abdomen. Moderate amount of free fluid within the pelvis. Pelvis: Hart catheter visualized and an appropriate position with contrast in the bladder. There is layering of hematoma posterior to the bladder. Body Wall: Diffuse body wall anasarca ranging from the lower abdomen all the way down to the bilateral distal thighs. Bones: No acute fracture within the abdomen or pelvis. Lower Extremities: Right Lower Extremity: Right Common Iliac Artery: Patent. Right External Iliac Artery: Patent. Right Common Femoral Artery: Patent. Right Deep Femoral Artery: Patent. Right Superficial Femoral Artery: Patent. Right Popliteal Artery: Patent. Right Anterior Tibial Artery: Patent. Right Tibioperoneal Trunk: Patent. Right Posterior Tibial Artery: Patent. Right Peroneal Artery: Patent. Right Non-Vascular: Non-contributory. Left Lower Extremity: Left Common Iliac Artery: Patent. Left External Iliac Artery: Patent. Left Common Femoral Artery: Patent. Left Deep Femoral Artery: Patent. Left Superficial Femoral Artery: Patent. Left Popliteal Artery: Patent. Left Anterior Tibial Artery: Patent. Left Tibioperoneal Trunk: Patent. Left Posterior Tibial Artery: Patent. Left Peroneal Artery: Patent. Left Non-Vascular: Non-contributory. Procedure Note Marty Rajput MD - 08/09/2025 CLINICAL INDICATION: Aortic infection or inflammation TECHNIQUE: Imaging of the chest abdomen and pelvis was performed, from thoracic inletthrough bilateral lower extremities, using spiral technique, followingadministration of IV contrast, Omnipaque 350, 100 mL according to the CTAthoracic aorta/chest and CTA Abdomen/Pelvis with Runoff protocol.Reformatted images in the coronal, sagittal, and oblique planes weregenerated from the axial data set to facilitate diagnostic accuracy. Inaddition, 3D images were created and reviewed. Total DLP (Dose-Length Product): 3890.87 mGy.cm (accession [id number]),3890.87 mGy.cm (accession [id number]). Please note: The reported valuerepresents the total of one or more individual components during the CTacquisition on this date and at this time, and as such, the same value mayappear in more than one CT report depending on the interpreting/reportingphysicians. COMPARISON: None. FINDINGS: Chest: Aorta/Vessels: No acute thoracic aortic pathology. No periaortic hematoma.No filling defect within the pulmonary arteries to suggest pulmonaryembolism. Pleural/Pericardial Space: No pneumothorax. Small left pleural effusion.No pericardial effusion. Lymph Nodes: No lymphadenopathy within the chest. Lungs: Central airways are patent. Mild upper lobe predominantcentrilobular emphysema. No focal consolidation. Mild bibasilaratelectasis. Mediastinum: Otherwise unremarkable. Prior aortic valve replacement. Chest wall: No chest wall hematoma or contusion. Bones: No acute fracture within the chest. Abdomen: Vessels: The abdominal aorta and its major branches are unremarkable. Liver/Gallbladder/Biliary System: The liver demonstrates homogeneousenhancement. Surgically absent gallbladder. No intra- or extra-hepaticbiliary ductal dilatation. Spleen: No evidence of laceration of the spleen, elbow, limited due tolack of portal venous phase. Pancreas: The pancreas enhances homogeneously. Adrenals: Mild bilateral adrenal gland thickening. Kidneys: The kidneys demonstrate symmetric nephrogram and excretion. Norenal or ureteral calculi. No hydronephrosis. Bowel/Mesentery: The small bowel loops are not dilated. The large bowelloops are not dilated. The appendix is not well-visualized. Lymph Nodes: No lymphadenopathy within the abdomen or pelvis. Fluid Survey: Moderate amount of free fluid within the abdomen. Moderateamount of free fluid within the pelvis. Pelvis: Hart catheter visualized and an appropriate position withcontrast in the bladder. There is layering of hematoma posterior to thebladder. Body Wall: Diffuse body wall anasarca ranging from the lower abdomen allthe way down to the bilateral distal thighs. Bones: No acute fracture within the abdomen or pelvis. Lower Extremities: Right Lower Extremity: Right Common Iliac Artery: Patent. Right External Iliac Artery: Patent. Right Common Femoral Artery: Patent. Right Deep Femoral Artery: Patent. Right Superficial Femoral Artery: Patent. Right Popliteal Artery: Patent. Right Anterior Tibial Artery: Patent. Right Tibioperoneal Trunk: Patent. Right Posterior Tibial Artery: Patent. Right Peroneal Artery: Patent. Right Non-Vascular: Non-contributory. Left Lower Extremity: Left Common Iliac Artery: Patent. Left External Iliac Artery: Patent. Left Common Femoral Artery: Patent. Left Deep Femoral Artery: Patent. Left Superficial Femoral Artery: Patent. Left Popliteal Artery: Patent. Left Anterior Tibial Artery: Patent. Left Tibioperoneal Trunk: Patent. Left Posterior Tibial Artery: Patent. Left Peroneal Artery: Patent. Left Non-Vascular: Non-contributory. IMPRESSION: 1. No acute vascular pathology within the chest abdomen or pelvis. Nofindings of splenic laceration. 2. Small left pleural effusion with associated atelectasis. 3. Moderate amount of free fluid within the abdomen and pelvis. 4. The free fluid in the abdomen demonstrates sedimentation effect in thepelvis consistent with high density. This could be blood or contrast inthe setting of vicarious excretion with renal failure. 5. Diffuse lower abdominal wall anasarca all the way down to the distalbilateral thighs. 6. Patent bilateral lower extremity vasculature. CRITICAL RESULT: No. COMMUNICATION: Per this written report. By electronically signing this report, I, the attending physician, tomi I have personally reviewed the images/data for the aboveexamination(s) and agree with the final edited report. Drafted by Jag Gregorio MD on 08/09/2025 1:47 AM Final report signed by Marty Rajput MD on 08/09/2025 2:13 AM Tammy Bustamante MD IMG CT PROCEDURES Final Result * (ABNORMAL) Sed rate, automated (08/09/2025 12:36 AM EDT) Only the most recent of2 resultswithin the time period is included. [facility] Sedimentation Rate 72(H) <20 mm/hr 2024 2:45 AM EDT [facility] Blood Venous blood specimen / Unknown Venipuncture / Unknown 08/09/2025 12:36 AM EDT 08/09/2025 12:48 AM EDT us Tammy Bustamante MD LAB BLOOD ORDERABLES Final Resu lt [facility] [address] [place] [address] * (ABNORMAL) C-reactive protein (08/09/2025 12:36 AM EDT) Only the most recent of2 resultswithin the time period is included. [facility] CRP, Plasma 148.4(H) <=8.0 mg/L 08/09/2025 2:04 AM EDT [facility] Blood Venous blood specimen / Unknown Venipuncture / Unknown 08/09/2025 12:36 AM EDT 08/09/2025 12:48 AM EDT Narrative [facility] - 08/09/2025 2:04 AM EDT This CRP test is appropriate for assessment of infection, systemic inflammation and/or tissue injury. To assess cardiovascular disease risk order high sensitivity CRP (CRPH). us Tammy Bustamante MD LAB BLOOD ORDERABLES Final Resu lt [facility] [address] [place] [address] * [place] CRITICAL CARE, E/M 30-74 MINUTES, [place] CRITICAL CARE, ADDL 30 MIN (08/08/2025 11:50 PM EDT) Tammy Vasquez MD - 08/08/2025 11:50 PM EDT Tammy Bustamante MD 08/10/2025 7:52 AM Critical Care Performed by: Tammy Bustamante MD Authorized by: Tammy Bustamante MD Critical care provider statement: Critical care time (minutes): 120 Critical care time was exclusive of: Separately billable procedures and treating other patients and teaching time Critical care was time spent personally by me on the following activities: Development of treatment plan with patient or surrogate, discussions with consultants, ordering and performing treatments and interventions, ordering and review of laboratory studies, ordering and review of radiographic studies, evaluation of patient's response to treatment, examination of patient, review of old charts, ventilator management and obtaining history from patient or surrogate Critical care statement: I saw and evaluated the patient with the resident/ fellow. I discussed the case with the resident/ fellow and agree with the findings and plan as documented. Comments: 49 y.o. female presents with rhabdomyolysis, skin mottling, concern for acute limb ischemia, acute liver injury. I was present at bedside and directly involve with caring for this critically ill patient assessing, treating and supporting the vital organ system to prevent further life-threatening deteriorate of patient's condition. The following vital organ system being evaluated and critically managed include: Hepatic: Acute liver injury with rising LFTs, new ascites Rhabdomyolysis requiring significant fluid resuscitation to prevent kidney injury us Tammy Bustamante MD IN CLINIC/BEDSIDE ORDERABLES Fi nal Result * APTT (08/08/2025 9:00 PM EDT) Only the most recent of3 resultswithin the time period is included. External Partial Thromboplastin Time (PTT) 26.1 24.5 - 32.8 SECONDS [facility] 08/08/2025 9:00 PM EDT 08/08/2025 9:05 PM EDT Generic [facility] Provider LAB BLOOD ORDERABLES Final Result Performing Organization Address [facility]/ZIP Co de Phone Number [facility] * Methicillin Resistant Staphylococcus aureus (MRSA) Culture (08/08/2025 8:35 PM EDT) External Culture NEGATIVE NEGATIVE [facility] Nasal contents 08/08/2025 8 :35 PM EDT 08/08/2025 9:05 PM EDT Generic [facility] Provider LAB MICROBIOLOGY - G ENERAL ORDERABLES Final Result Performing Organization Address [facility] Co de Phone Number [facility] * CT OUTSIDE IMAGES (08/08/2025 1:28 PM EDT) Only the most recent of2 resultswithin the time period is included. Anatomical Region Laterality Modality Computed Tomogra phy 08/08/2025 1:28 PM EDT [facility] IMG CT PROCEDURES Edited Resu lt - Final * CT Abdomen Pelvis w IV Contrast (08/08/2025 10:24 AM EDT) Anatomical Region Laterality Modality Abdomen, Pelvis Computed Tomogra phy 08/08/2025 10:2 4 AM EDT Narrative 08/08/2025 2:59 PM EDT [facility] [address] [place] [address] Name: VERONICA WEISS Exam Date: 08/08/2025 : 1975 Age 49 years Gender: F Physician: LOBO LOWERY Facility: [facility] Facility HSV: Inpatient Exam: CT ABD [...] 02:56 PM EDT Legally authenticated by AVI Driscoll 2025-08-08 14:56:42 Dictated By: Clive Posadas Transcribed By: Transcribed On: 08/08/2025 2:56 PM Electronically signed by: Clive Posadas 08/08/2025 Thank you for referring VERONICA WEISS to [facility]. Legally authenticated by AVI Driscoll 2025-08-08 14:56:42 Procedure Note Provider, [facility] 08/08/2025 [place] [address] Name: VERONICA WEISS Exam Date: 08/08/2025 : 1975 Age 49 years Gender: F Physician: LOBO LOWERY Facility: [facility] Facility HSV: Inpatient Exam: CT ABD PEL W EXAMINATION: CT ABDOMEN PELVIS WITH IV CONTRAST HISTORY: fall, inability to move left leg, severe rhabdomyolysis, r/ofx. COMPARISON: None. TECHNIQUE: Contiguous axial images through the abdomen and pelvis were acquired following the administration of intravenous contrast.Reconstructed images in the coronal and sagittal planes were reviewed. [facility] use dose [facility], iterative [...] 02:56 PM EDT Legally authenticated by AVI Driscoll 2025-08-08 14:56:42 Dictated By: Clive Posadas Transcribed By: Transcribed On: 08/08/2025 2:56 PM Electronically signed by: Clive Posadas 08/08/2025 Thank you for referring VERONICA WEISS to [facility]. Legally authenticated by AVI Driscoll 2025-08-08 14:56:42 us Generic [facility] Provider IMG CT PROCEDURES Fi nal Result * CT Hip Left w IV Contrast (08/08/2025 10:23 AM EDT) Anatomical Region Laterality Modality Lower Extremities, Hip Left Computed Tomography 08/08/2025 10:2 3 AM EDT Narrative 08/08/2025 3:06 [place] [address] Name: VERONICA WEISS Exam Date: 08/08/2025 : 1975 Age 49 years Gender: F Physician: LOBO LOWERY Facility: [facility] Facility HSV: Inpatient Exam: CT LOWER EXT [...] Clive Posadas 08/08/2025 Thank you for referring VERONICA WEISS to [facility]. Legally authenticated by AVI Driscoll 2025-08-08 15:01:48 Procedure Note Provider, [facility] - 08/08/[address] [address] Name: VERONICA WEISS Exam Date: 08/08/2025 : 1975 Age 49 years Gender: F Physician: LOBO LOWERY Facility: [facility] Facility HSV: Inpatient Exam: CT LOWER EXT WITH LT EXAM: CT LOWER EXTREMITY WITH IV CONTRAST LEFT HISTORY: fall, 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 COMPARISON: None. Procedure: Thin section axial images were obtained through the lower extremities after the administration of intravenous contrast..Reconstructed images in the sagittal and coronal planes were reviewed. CT [facility] use dose modulation, iterative [...] Clive Posadas 08/08/2025 Thank you for referring VERONICA WEISS to [facility]. Legally authenticated by AVI Driscoll 2025-08-08 15:01:48 Generic [facility] Provider IMG CT PROCEDURES Fi nal Result * (ABNORMAL) CK (08/08/2025 3:55 AM EDT) Only the most recent of4 resultswithin the time period is included. External Creatine Kinase 20227(H) 35 - 232 IU/l [facility] 08/08/2025 3:55 AM EDT 08/08/2025 4:29 AM EDT Generic [facility] Provider LAB BLOOD ORDERABLES Final Result [facility] * Echo, Adult Transthoracic Limited w/ Contrast (08/07/2025 6:38 AM EDT) Anatomical Region Laterality Modality Ultrasound 08/07/2025 6:38 AM EDT Narrative 08/07/2025 12:51 PM EDT [facility] [address] [place] [address] Name: VERONICA WEISS Exam Date: 08/07/2025 : [...] stenosis with a valve area of 1.34 dietitian teacher (Peak grad=31mmHg, Mean grad=16mmHg, LVOT grady=2.00cm, LVOT TVI=14.2cm, Ao TVI=33.3cm). The dimensionless index is 0.43. AV peak trtwbbfv=600hr/sec. There is a Mechanical AV prosthesis. Tricuspid [...] Thank you for referring VERONICA WEISS to [facility]. Legally authenticated by PATTIE Yun 2025-08-07 12:49:32 Procedure Note Provider, Generic [facility] - 08/07/[address] [address] Name: VERONICA WEISS Exam Date: 08/07/2025 : [...] stenosis with a valve area of 1.34 dietitian teacher (Peak grad=31mmHg, Mean grad=16mmHg, LVOT grady=2.00cm, LVOT TVI=14.2cm, Ao TVI=33.3cm). The dimensionless index is 0.43. AV peak efbqcsiq=884pl/sec. There is a Mechanical AV prosthesis. Tricuspid [...] Thank you for referring VERONICA WEISS to [facility]. Legally authenticated by PATTIE Yun 2025-08-07 12:49:32 Generic [facility] Provider CV ECHO PROCEDURES F inal Result * (ABNORMAL) Troponin (EXTERNAL) (08/07/2025 5:05 AM EDT) Only the most recent of4 resultswithin the time period is included. External Troponin 294(HH) 0 - 51 ng/L [facility] Comment: PATIENT SAMPLES MAY CONTAIN CARDIAC TROPONIN-SPECIFIC [...] 5:05 AM EDT 08/07/2025 8:29 AM EDT [facility] Provider LAB BLOOD ORDERABLES Final Result Performing Organization Address [facility] Phone Number [facility] * Hemoglobin A1c (08/07/2025 5:05 AM EDT) External Hemoglobin A1c 5.5 3.8 - 5.6 % [facility] Comment: GLYCOSYLATED HEMOGLOBIN (A1C) EXPECTED RANGES: <6.5 NON-DIABETIC 6.5-7.5 EXCELLENT 7.5-8.5 GOOD >8.5 POOR 08/07/2025 5:05 AM EDT 08/07/2025 5:38 AM EDT [facility] Provider LAB BLOOD ORDERABLES Final Result Performing Organization Address [facility] Phone Number [facility] * (ABNORMAL) Lipid Profile, Plasma (08/07/2025 5:05 AM EDT) External Triglyceride 98 30 - 200 mg/dl [facility] External Cholesterol 113 0 - 200 mg/dl [facility] External HDL Cholesterol 28(L) 40 - 104 mg/dL [facility] External LDL Cholesterol-Calcu lated 65 0 - 130 mg/dL [facility] 08/07/2025 5:05 AM EDT 08/07/2025 5:38 AM EDT [facility] Provider LAB BLOOD ORDERABLES Final Result Performing Organization Address [facility] de Phone Number [facility] * XR OUTSIDE IMAGES (08/06/2025 12:26 PM EDT) Only the most recent of2 resultswithin the time period is included. Anatomical Region Laterality Modality Radiographic [place] 08/06/2025 12:2 6 PM EDT us [facility] IMG XR PROCEDURES Edited Resu lt - Final * XR Ankle Right 2 Views (08/06/2025 12:23 PM EDT) Anatomical Region Laterality Modality Lower Extremities, Ankle Right Digital Radiography 08/06/2025 12:2 3 PM EDT Narrative 08/06/2025 12:43 [place] [address] Name: VERONICA WEISS Exam Date: 08/06/2025 : 1975 Age 49 years Gender: F Physician: LOBO LOWERY Facility: [facility] Facility HSV: Inpatient Exam: ANKLE 2V RT XR ANKLE 2 VIEWS RIGHT, 08/06/2025 11:34 AM CDT CLINICAL INDICATION: Female, 49 years old. Acute swelling, unable to bear weight COMPARISON: No existing relevant imaging and/or the patient did not have previous relevant imaging. Number of Views: 2 views of the right ankle was/were obtained. [id number]. FINDINGS / IMPRESSION: Diffuse subcutaneous edema. No acute fracture or dislocation. Anatomic osseous alignment. Ankle mortise is congruent. Negative for joint effusion. . . . S/D/G Electronically signed by: Blu Lundberg MD 08/06/2025 12:39 PM EDT Dictated By: Blu Lundberg Transcribed By: Transcribed On: 08/06/2025 12:39 PM Electronically signed by: Blu Lundberg 08/06/2025 Thank you for referring VERONICA WEISS to [facility]. Legally authenticated by SEMAJ Momin 2025-08-06 12:39:28 Procedure Note Provider, Generic [facility] - 08/06/2025 [place] [address] Name: VERONICA WEISS Exam Date: 08/06/2025 : 1975 Age 49 years Gender: F Physician: LOBO LOWERY Facility: [facility] Facility HSV: Inpatient Exam: ANKLE 2V RT XR ANKLE 2 VIEWS RIGHT, 08/06/2025 11:34 AM CDT CLINICAL INDICATION: Female, 49 years old. Acute swelling, unable tobear weight COMPARISON: No existing relevant imaging and/or the patient did not have previous relevant imaging. Number of Views: 2 views of the right ankle was/were obtained. [id number]. FINDINGS / IMPRESSION: Diffuse subcutaneous edema. No acute fracture or dislocation. Anatomic osseous alignment. Anklemortise is congruent. Negative for joint effusion. . . . S/D/G Electronically signed by: Blu Lundberg MD 08/06/2025 12:39 PM EDTRP Dictated By: Blu Lundberg Transcribed By: Transcribed On: 08/06/2025 12:39 PM Electronically signed by: Blu Lundberg 08/06/2025 Thank you for referring VERONICA WEISS to [facility]. Legally authenticated by SEMAJ Momin 2025-08-06 12:39:28 Generic [facility] Provider IMG XR PROCEDURES Fi nal Result * Ethyl Alcohol Plasma (08/06/2025 7:50 AM EDT) External Ethyl Alcohol <3 0 - 50 MG/DL [facility] Comment: [place] [facility]ULATIONS 100 mg/dl = Clinically intoxicated 350-450 mg/dl Clinically severe intoxication 550 mg/dl Usually fatal 08/06/2025 7:50 AM EDT 08/06/2025 8:48 AM EDT Generic [facility] Provider LAB BLOOD ORDERABLES Final Result [facility] * Test Qualitative Plasma (08/06/2025 7:50 AM EDT) External Hcg Qualitative Serum NEGATIVE NEGATIVE [facility] External HCG Serum Lot # [id number] [facility] External HCG Serum Expiration Date 01/19/2026 [facility] External HCG Serum Internal Positive Control OK POSITIVE [facility] 08/06/2025 7:50 AM EDT 08/06/2025 8:47 AM EDT us Generic [place] Provider LAB BLOOD ORDERABLES Final Result Performing Organization Address [facility]/ZIP Co de Phone Number [facility] * Lactic Acid, Plasma (08/06/2025 7:50 AM EDT) External Lactic Acid 1.0 0.4 - 2.0 mmol/L [facility] 08/06/2025 7:50 AM EDT 08/06/2025 7:51 AM EDT us Generic [place] Provider LAB BLOOD ORDERABLES Final Result Performing Organization Address [facility] de Phone Number [facility] * Colonoscopy External Result (02/24/2025) Anatomical Region Laterality Modality Endoscopy Narrative 02/24/2025 Ordered by an unspecified provider. us External Provider GI PROCEDURE ORDERABLES Final Result from Last 3 Months or Most Recently Relevant to Health Maintenance Insurance MEDICAID Advance Directives * Full Code (Latest Code Status on File) Date Activated Date Inactivated Comments 08/09/2025 5:09 AM 09/06/2025 6:38 PM Question Answer Comments I have reviewed the capacity from the link above and, if needed, have updated to appropriate status: Yes Care Teams Hemp Fiber Taker Off Relationship Specialty Start Date End Date Rodolfo Rhoades MD [address] [place] [address] PCP - General Family Medicine 02/02/25 So Caicedo, ANTOINE VALUE-BASED TR[place]FORMATION [place] [address] TCM Nurse 09/07/25
--- OUTSIDE RECORDS SUMMARY | 2025-09-15 09:54 | XMS_ITS | Encounter Summary ---
Author Organization [facility] Address [facility] [place] [address] Care Team Providers Care Director Recreation Center Name Role Phone Georgette Moore APRN Primary Care Provider [phone] Veronica Goodwin LPN Unavailable Unavailable Margaret Ro Unavailable Unavailable Rodolfo Rhoades MD Primary Care Provider [phone] Marianne Bolaños Unavailable Unavailable Ariana Bagley Unavailable Unavailable So Caicedo LPN Unavailable Unavailable Reason for Visit * Reason Comments Med Refill Encounter Details Date Type Department Care Team (Late st Contact Info) Description 05/13/2021 Refill Family and Community Medicine [address] [place] [address] Georgette Moore APRN [address] [place] [address] Social History Tobacco Use Types [...] 1:00 PM EDT Office Visit [facility] [address] [place] [address] Rodolfo Rhoades MD [address] [place] [address] 09/26/2025 8:00 AM EDT Office Visit [facility] [address] [place] [address] Rodolfo Rhoades MD [address] [place] [address] documented as of this encounter [...] 08/21/2025 08/21/2025 08/21/20 25 2:03 PM EDT documented as of this encounter Care Teams Director Recreation Center Relationship Specialty Start Date End Date Georgette Moore APRN [address] [place] [address] PCP - General 04/12/21 02/01/25 Rodolfo Rhoades MD [address] [place] [address] PCP - General Family Medicine 02/02/25 Veronica Goodwin LPN [employer] [address] TCM Nurse 07/25/24 08/25/24 Margaret Ro Community Health Worker 07/27/24 4 Marianne Bolaños Clinical Special Delivery Worker 07/14/25 07/28/25 Ariana Bagley Community Health Worker 07/14/25 07/14/25 oS Caicedo LPN VAL[employer] [address] TCM Nurse 09/07/25 documented as of this encounter
--- OUTSIDE RECORDS SUMMARY | 2025-09-15 09:54 | XMS_ITS | Encounter Summary ---
Author Organization Healthcare Address [address] [id number] Care Team Providers Care Veneer Jointer Returner Name Role Phone Rodolfo Rhoades MD Primary Care Provider [phone] Marianne Bolaños Unavailable Unavailable Reason for Visit * Reason Comments Health Maint. Records Encounter Details Date Type Department Care Team (Late st Contact Info) Description 07/28/2025 Patient Outreach POPULATION HEALTH [address] [facility], [address] [place] [address] Marianne Bolaños Health Maint. (Records) [...] any time in the past 12 m [facility], were you homeless or living in a mcfp (including now)? No 07/14/2025 Safety and Environment [...] Other - specify: Re-faxed records request to [facility]. Waiting for response. Follow-up scheduled for: 08/15/2025 Additional Information (if needed): N/A Completed by: Marianne Bolaños documented in this encounter Plan of Treatment Upcoming Encounters Date Type Department Care Team (Late st Contact Info) Description 09/15/2025 1:00 PM EDT Office Visit [facility] [address] [place] [address] Rodolfo Rhoades MD [address] [place] [address] 09/26/2025 8:00 AM EDT Office Visit [facility] [address] [place] [address] Rodolfo Rhoades MD [address] [place] [address] documented as of this encounter Visit Diagnoses Not on filedocumented in this encounter Additional Health Concerns Assessment Noted Time PHQ-9 Depression Total Score: 11 08/2 025 10:59 AM EDT A fall risk assessment has been complete d for the patient 03/19/2023 1:57 PM EDT A Body Mass Index follow-up plan has been documented for the patient 06/08/2025 12:14 AM EDT documented as of this encounter Care Teams Veneer Jointer Returner Relationship Specialty Start Date End Date Rodolfo Rhoades MD [address] [place] [address] PCP - General Family Medicine 02/02/25 WagesMarianne Clinical Layout Former 07/14/2507/28 documented as of this encounter
--- OUTSIDE RECORDS SUMMARY | 2025-09-15 09:54 | XMS_ITS | Encounter Summary ---
Author Organization [facility] Address [address] [place] [address] Care Team Providers Care Cad Designer Drafter Name Role Phone Georgette Moore APRN Primary Care Provider [phone] Veronica Goodwin LPN Unavailable Unavailable Margaret Ro Unavailable Unavailable Rodolfo Rhoades MD Primary Care Provider [phone] Marianne Bolaños Unavailable Unavailable Ariana Bagley Unavailable Unavailable So Caicedo LPN Unavailable Unavailable Encounter Details Date Type Department Care Team (Late st Contact Info) Description 07/21/2024 Outside Procedure External Location [address] [place] [phone] Provider, Swapnil Monique Social History Tobacco Use [...] In the past 12 months has e [employer], gas, oil, or water [employer] threatened to shut off services in your [...] 09/15/2025 1:00 PM EDT Office Visit [facility] [address] [place] [address] Rodolfo Rhoades MD [address] [place] [address] 09/26/2025 8:00 AM EDT Office Visit [facility] [address] [place] [address] Rodolfo Rhoades MD [address] [place] [address] documented as of this encounter Procedures Procedure Name Priority Date/Time Associated Diagnosis Comments XR CHEST 1 VIEW 07/21/2024 4:03 PM EDT documented in this encounter Results * XR Chest 1 View (07/21/2024 4:03 PM EDT) Anatomical Region Laterality Modality Chest Digital Radiogra phy 07/21/2024 4:03 PM EDT Narrative 07/21/2024 4:31 PM EDT [place] [id number] Name: VERONICA ALVAREZ Exam Date: 07/21/2024 : 1975 Age 48 years Gender: F Physician: PAOLA PIZARRO Facility: [facility] Facility HSV: Outpatient Exam: CHEST PORTABLE INDICATION: [...] for referring VERONICA ALVAREZ to [facility]. Legally authenticated by NATALIE CULVER 2024-07-21 16:12:48 Procedure Note Provider, [facility] - 07/21/2024 [place] [address] Name: VERONICA ALVAREZ Exam Date: 07/21/2024 : 1975 Age 48 years Gender: F Physician: PAOLA PIZARRO Facility: [facility] Facility HSV: Outpatient Exam: CHEST PORTABLE INDICATION: [...] [place] 07/21/2024 Thank you for referring NELIDAVERONICA Yun to [facility]. Legally authenticated by NATALIE CULVER 2024-07-21 16:12:48 us Generic [place] Provider IMG XR PROCEDURES Fi nal Result [...] documented as of this encounter Care Teams Cad Designer Drafter Relationship Specialty Start Date End Date Georgette Moore APRN [address] [place] [address] PCP - General 04/12/21 02/01/25 Rodolfo Rhoades MD [address] [place] [address] PCP - General Family Medicine 02/02/25 Veronica Goodwin LPN VALUE-BASED [place] [address] TCM Nurse 07/25/24 08/25/24 Margaret Ro Community Health Worker 07/27/24 4 Marianne Bolaños Clinical Corporate Development Officer 07/14/25 07/28/25 Cada, Ariana A Community Health Worker 07/14/25 07/14/25 So Caicedo, ANTOINE VALUE[place] [address] TCM Nurse 09/07/25 documented as of this encounter
--- OUTSIDE RECORDS SUMMARY | 2025-09-15 09:54 | XMS_ITS | Encounter Summary ---
Author Organization Healthcare Address [address] [id number] Care Team Providers Care Car Body Mechanic Name Role Phone Rodolfo Rhoades MD Primary Care Provider [phone] Marianne Bolaños Unavailable Unavailable Reason for Visit * Reason Comments Health Maint. Records Encounter Details Date Type Department Care Team (Late st Contact Info) Description 07/28/2025 Patient Outreach POPULATION HEALTH [address] [facility], [address] [place] [address] Marianne Bolaños Health Maint. (Records) [...] any time in the past 12 m [facility], were you homeless or living in a long term (including now)? No 07/14/2025 Safety and Environment [...] completed: Follow-up Outcome: Received colonoscopy records from [facility] via fax. Sent to stat line scarlett scanned into patient's chart. [x] RR Status: Received [x] No follow-up needed Follow-up scheduled for: N/A Additional Information (if needed):N/A Completed by: Marianne Bolaños documented in this encounter Plan of Treatment Upcoming Encounters Date Type Department Care Team (Late st Contact Info) Description 09/15/2025 1:00 PM EDT Office Visit [facility] [address] [place] [address] Rodolfo Rhoades MD [address] [place] [address] 09/26/2025 8:00 AM EDT Office Visit [facility] [address] [place] [address] Rodolfo Rhoades MD [address] [place] [address] documented as of this encounter [...] as of this encounter Care Teams Car Body Mechanic Relationship Specialty Start Date End Date Rodolfo Rhoades MD [address] [place] [address] PCP - General Family Medicine 02/02/25 WagesMarianne Clinical Grocery Clerk Checking 07/14/2507/28 documented as of this encounter
--- OUTSIDE RECORDS SUMMARY | 2025-09-15 09:54 | XMS_ITS | Clinical Summary ---
[facility] Organization [facility] Address [address] [place] [address] Care Team Providers Care Banquet Cook Name Role Phone Rodolfo Rhoades MD Primary Care Provider [phone] Allergies Active Allergy Reactions Criticality Noted Date [...] lateral wall. Normal LVEF. Cardiac cath at [facility] (04/2020): Normal coronary arteries. 2+ [...] Type Department Care Team Description 07/13/2025 Telephone [facility] C[facility] [address] [facility] [address] [place] [address] Taz Neal MD from Last 3 Months Immunizations Immunization Administration Dates Next Due COVID-19 (PFIZER) Purple Cap Monovalent 04/05/20 21,03/08/2021 Fluzone >6mos 12/17/2016 Family History Medical History Relation Name Comments Liver disease Father Relation Name Status Comments Father Mother Alive Other Alive Sister Alive Social History Tobacco Use Types Packs/Day Years Used Date Smoking Tobacco: Every Day Cigarettes 0.5 24.8 Started: 2000 Smokeless Tobacco: Never Tobacco Cessation:Ready [...] 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 Not on file Not [...] 08/03/2024 10:28 AM EDT Plan of Treatment Health Maintenance Due Date Last Done Comments Annual Gynecologic Pelvic an d Breast Exam 1975 Pneumococcal Vaccine 0-49 (1 of 2 - PCV) 1996 TDAP/TD VACCINES (1 - Tdap) 1996 MAMMOGRAM 2017 ANNUAL PHYSICAL 03/19/2021 HEPATITIS C SCREENING 03/19/2021 COLON CANCER SCREENING 5 YEA R SIGMOIDOSCOPY [address] CT COLONOGRAPHY 2022 FECAL OCCULT BLOOD TEST 2022 FIT Testing (1 year) 2022 INFLUENZA VACCINE 06/30/2025 09/20/2020, 12/17/2016 LIPID PANEL 07/25/2025 07/25/2024, 07/01, 07/22/2024, Additional history exists COLOGUARD 03/20/2027 03/20/2024 COLONOSCOPY 02/24/2035 02/24/2025 COLORECTAL CANCER SCREENING 02/24/2035 Medical Devices Implanted Type Area Entrepreneurship Program Director Device Identifier Shelf Expiration Date Model / Serial / Lot Vlv Aort [facility] 19mm - [id number] - [id number] Implanted:Qty : 1 on 06/11/2021 by Taz Cespedes MD at [facility] Implant N/A: Heart [employer] [id number] 01/01/2025 [id number] / [id number] / Appl Clip Evelyn Atriclip Flx 35mm - [id number] Implanted:Qty : 1 on 06/11/2021 by Taz Cespedes MD at [facility] Implant N/A: Heart ATRICURE 02/29/2024 [id number] / [id number] Procedures Procedure Name Priority Date/Time Associated Diagnosis Comments SCANNED EKG 06/22/2025 LIPID PANEL STAT 04/19/2021 9:30 AM EDT from Last 3 Months or Most Recently Relevant to Health Maintenance Results * ECG Scan (06/22/2025) Kathy Saavedra APRN ECG ORDERABLES Final Resu lt * Lipid Panel (04/19/2021 9:30 AM EDT) Total Cholesterol 146 0 - 200 mg/dL 04/19/2021 10:14 AM EDT [facility] Triglycerides 67 0 - 150 mg/dL 04/19/2021 10:14 AM EDT [facility] HDL Cholesterol 58 40 - 60 mg/dL 04/19/2021 10:14 AM EDT [facility] LDL Cholesterol 75 0 - 100 mg/dL 04/19/2021 10:14 AM EDT [facility] VLDL Cholesterol 13 5 - 40 mg/dL 04/19/2021 10:14 AM EDT [facility] LDL/HDL Ratio 1.29 04/19/2021 10:14 AM EDT [facility] Blood Line / Unknown 04/19/2021 9: 30 AM EDT 04/19/2021 9:40 AM EDT Narrative [facility] - 04/19/2021 10:14 AM EDT [...] APRN LAB BLOOD ORDERABLES Final Result [facility]
[address] [place] [address], from Last 3 Months or Most Recently [...] pulse or is breathing): Full Care Teams Banquet Cook Relationship Specialty Start Date End Date Rodolfo Rhoades MD [address] [place] [address] PCP - General Family Medicine 04/05/25
--- OUTSIDE RECORDS SUMMARY | 2025-09-15 09:54 | XMS_ITS ---
Author Organization [facility] Address [address] [place] [address] Care Team Providers Care Manager Cardiovascular Name Role Phone Rodolfo Rhoades MD Primary Care Provider [phone] So Caicedo LPN Unavailable Unavailable Clinical Pit Shoveler Program Status:Closed (Closed) Start date:07/14/2025 Enrollment date:07/14/2025 Enrollment reason:Identified using referral data End date:07/28/2025 Close reason:Patient graduated Overview This episode type is for outpatient Clinical Pit Shoveler enrolling patients in their program. Continued Care and Services Coordination
--- OUTSIDE RECORDS SUMMARY | 2025-09-15 09:54 | XMS_ITS ---
Author Organization [facility] Address [address] [place] [address] Care Team Providers Care Revolving Field Assembler Name Role Phone Rodolfo Rhoades MD Primary Care Provider [phone] So Caicedo LPN Unavailable Unavailable Transitional Care Management Status:Active (Active) Start date:09/07/2025 Enrollment date:09/08/2025 Enrollment reason:Identified using hospital discharge data Overview This episode type is for outpatient care managers enrolling patients in the [facility] Transitional Care Management program. Case Team Name Relationship Phone So Caicedo LPN(Responsible Staff) TCM Nurse Continued Care and Services Coordination
--- OUTSIDE RECORDS SUMMARY | 2025-09-15 09:54 | XMS_ITS | Encounter Summary ---
Author Organization [facility] Address [address] [place] [address] Care Team Providers Care Solar Energy Consultant And Designer Name Role Phone Georgette Moore APRN Primary Care Provider [phone] Veronica Goodwin LPN Unavailable Unavailable Margaret Ro Unavailable Unavailable Rodolfo Rhoades MD Primary Care Provider [phone] Marianne Bolaños Unavailable Unavailable Ariana Bagley Unavailable Unavailable So Caicedo LPN Unavailable Unavailable Encounter Details Date Type Department Care Team (Late st Contact Info) Description 07/22/2024 Outside Procedure External Location [address] [place] [phone] Provider, Swapnil Monique Social History Tobacco Use Types Packs/Day Years Used Date Smoking Tobacco: Every Day Cigarettes Started: 2001 Passive Smoke Exposure: Current Smokeless [...] a senior living (including now)? No 07/25/2024 Safety and Environment [...] In the past 12 months has e [employer], gas, oil, or water [employer] threatened to shut off services in your [...] at all 07/25/2024 3:43 PM EDT Shikha Huddletson Patient Health Questionnaire -2 Score 0 07/25/2024 3:43 PM EDT Shikha Huddleston documented as of this encounter Plan of Treatment Upcoming Encounters Date Type Department Care Team (Late st Contact Info) Description 09/15/2025 1:00 PM EDT Office Visit [facility] [address] [place] [address] Rodolfo Rhoades MD [address] [place] [address] 09/26/2025 8:00 AM EDT Office Visit [facility] [address] [place] [address] Rodolfo Rhoades MD [address] [place] [address] documented as of this encounter Procedures Procedure Name Priority Date/Time Associated Diagnosis Comments ECHO, ADULT TRANSTHORACIC COMPLETE W/ COLOR AND DOPPLER 07/22/2024 6:31 AM EDT documented in this encounter Results * Echo, Adult Transthoracic Complete w/ Color and Doppler (07/22/2024 6:31 AM EDT) Anatomical Region Laterality Modality Ultrasound 07/22/2024 6:31 AM EDT Narrative 07/22/2024 12:07 PM EDT [address] [address] Name: VERONICA ALVAREZ Exam Date: 07/22/2024 : 1975 Age 48 years Gender: F Physician: VICTORIANO REYES [facility] Facility HSV: Inpatient Exam: ECHO [...] stenosis with a valve area of 0.85 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 The dimensionless index is 0.24. AV peak koecdwax=991yo/sec. There is a Mechanical AV prosthesis. (Peak [...] Thank you for referring VERONICA ALVAREZ to [facility]. 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 The dimensionless index is 0.24. AV peak xoyunujm=185ik/sec. There is a Mechanical AV prosthesis. (Peak [...] Thank you for referring VERONICA ALVAREZ to [facility]. Legally authenticated by CINDY JORDAN 2024-07-22 12:04:58 Generic [place] Provider CV ECHO PROCEDURES F inal Result [...] documented as of this encounter Care Teams Solar Energy Consultant And Designer Relationship Specialty Start Date End Date Georgette Moore APRN [address] [place] [address] PCP - General 04/12/21 02/01/25 Rodolfo Rhoades MD [address] [place] [address] PCP - General Family Medicine 02/02/25 Veronica Goodwin LPN [employer] [place] [address] TCM Nurse 07/25/24 08/25/24 Margaret Ro Community Health Worker 07/27/24 4 Marianne Bolaños Clinical Toy Assembler Wood 07/14/25 07/28/25 Ariana Bagley Community Health Worker 07/14/25 07/14/25 So Caicedo LPN VALUE[employer] [address] TCM Nurse 09/07/25 documented as of this encounter
--- OUTSIDE RECORDS SUMMARY | 2025-09-15 09:54 | XMS_ITS | Encounter Summary ---
Author Organization Healthcare Address [address] [id number] Care Team Providers Care Autotransfusionist Name Role Phone Rodolfo Rhoades MD Primary Care Provider [phone] So Caicedo LPN Unavailable Unavailable Encounter Details Date Type Department Care Team (Late st Contact Info) Description 08/06/2025 Outside Procedure External Location [address] [place] [phone] Provider, Swapnil [place] Social History Tobacco Use Types Packs/Day Years [...] time in the past 12 m [facility], were you homeless or living in a long term (including now)? No 08/09/2025 [facility] Util[employer] Answer Date Recorded In the past [...] Visit [facility] [address] [place] [address] Rodolfo Rhoades MD [address] [place] [address] 09/26/2025 8:00 AM EDT Office Visit [facility] [address] [place] [address] Rodolfo Rhoades MD [address] [place] [address] documented as of this encounter Procedures Procedure Name Priority Date/Time Associated Diagnosis Comments XR ANKLE RIGHT 2 VIEWS 08/06/2025 12:23 PM EDT documented in this encounter Results * XR Ankle Right 2 Views (08/06/2025 12:23 PM EDT) Anatomical Region Laterality Modality Lower Extremities, Ankle Right Digital Radiography 08/06/2025 12:2 3 PM EDT Narrative 08/06/2025 12:43 [place] [address] Name: HAILEY ALVAREZ Exam Date: 08/06/2025 : 1975 Age 49 years Gender: F Physician: LOBO LOWERY Facility: [facility] Facility HSV: Inpatient Exam: ANKLE 2V RT XR ANKLE 2 VIEWS RIGHT, 08/06/2025 11:34 AM CDT CLINICAL INDICATION: Female, 49 years old. Acute swelling, unable to bear weight COMPARISON: No existing relevant imaging and/or the patient did not have previous relevant imaging. Number of Views: 2 views of the right ankle was/were obtained. [id number]. FINDINGS / IMPRESSION: Diffuse subcutaneous edema. No acute fracture or dislocation. Anatomic osseous alignment. Ankle mortise is congruent. Negative for joint effusion. . . . S/D/G Electronically signed by: Blu Wasserman MD 08/06/2025 12:39 PM EDT Dictated By: Blu Wasserman Transcribed By: Transcribed On: 08/06/2025 12:39 PM Electronically signed by: Blu Wasserman 08/06/2025 Thank you for referring HAILEY ALVAREZ to [facility]. Legally authenticated by SEMAJ Momin 2025-08-06 12:39:28 Procedure Note Provider, Generic [facility] - 08/06/2025 [place] [address] Name: HAILEY ALVAREZ Exam Date: 08/06/2025 : 1975 Age 49 years Gender: F Physician: LOBO LOWERY Facility: [facility] Facility HSV: Inpatient Exam: ANKLE 2V RT XR ANKLE 2 VIEWS RIGHT, 08/06/2025 11:34 AM CDT CLINICAL INDICATION: Female, 49 years old. Acute swelling, unable tobear weight COMPARISON: No existing relevant imaging and/or the patient did not have previous relevant imaging. Number of Views: 2 views of the right ankle was/were obtained. [id number]. FINDINGS / IMPRESSION: Diffuse subcutaneous edema. No acute fracture or dislocation. Anatomic osseous alignment. Anklemortise is congruent. Negative for joint effusion. . . . S/D/G Electronically signed by: Blu Wasserman MD 08/06/2025 12:39 PM EDTRP Dictated By: Blu Wasserman Transcribed By: Transcribed On: 08/06/2025 12:39 PM Electronically signed by: Blu Wasserman 08/06/2025 Thank you for referring HAILEY ALVAREZ to [facility]. Legally authenticated by SEMAJ Momin 2025-08-06 12:39:28 Generic [place] Provider IMG XR PROCEDURES Fi nal Result [...] documented as of this encounter Care Teams Autotransfusionist Relationship Specialty Start Date End Date Rodolfo Rhoades MD [address] [place] [address] PCP - General Family Medicine 02/02/25 So Caicedo LPN VALUE-[employer] [place] [address] TCM Nurse 09/07/25 documented as of this encounter
--- OUTSIDE RECORDS SUMMARY | 2025-09-15 09:54 | XMS_ITS | Encounter Summary ---
Author Organization Healthcare Address [address] [place] [address] Care Team Providers Care Office Manager Receptionist Name Role Phone Rodolfo Rhoades MD Primary Care Provider [phone] Marianne Bolaños Unavailable Unavailable Ariana Bagley Unavailable Unavailable So Caicedo LPN Unavailable Unavailable Encounter Details Date Type Department Care Team (Late st Contact Info) Description 07/14/2025 Results Follow-Up [facility] [address] [place] [address] Rodolfo Rhoades MD [address] [place] [address] Social History Tobacco Use Types [...] a care home (including now)? No 08/09/2025 [facility] Utilities Answer Date Recorded In [...] at all 07/14/2025 10:59 AM EDT Estrada uGdino Patient Health Questionnaire-9 Score 11 07/14/2025 10:59 AM EDT Andrzej Gudino * Calculated C-SSRS Risk Score (Lifetime/Recent) Answer Date of Assessment Author No Risk Indicated 09/06/2025 4:00 PM EDT Merrill Brower * How difficult have these problems made [...] 1 Month) No 025 4:00 PM EDT Brittani Brower 2. Non-Specific Active Suici omar Thoughts (Past 1 Month) No 09/06/2025 4:00 PM EDT Brittani Brower 6. Suicidal Behavior (Lifetime) No 4:00 PM EDT Brittani Brower documented as of this encounter Plan of Treatment Upcoming Encounters Date Type Department Care Team (Late st Contact Info) Description 09/15/2025 1:00 PM EDT Office Visit [facility] [address] [place] [address] Rodolfo Rhoades MD [address] [place] [address] 09/26/2025 8:00 AM EDT Office Visit [facility] [address] [place] [address] Rodolfo Rhoades MD [address] [place] [address] documented as of this encounter [...] documented as of this encounter Care Teams Office Manager Receptionist Relationship Specialty Start Date End Date Rodolfo Rhoades MD [address] [place] [address] PCP - General Family Medicine 02/02/25 Marianne Bolaños Clinical School Supervisor 07/14/25 07/28/25 Ariana Bagley Community Health Worker 07/14/25 07/14/25 So Caicedo LPN [employer] [place] [address] TCM Nurse 09/07/25 documented as of this encounter
--- OUTSIDE RECORDS SUMMARY | 2025-09-15 09:54 | XMS_ITS | Encounter Summary ---
Author Organization Healthcare Address [address] [id number] Care Team Providers Care Clearance Diver Name Role Phone Georgette Moore APRN Primary Care Provider [phone] Hailey Goodwin BURRER OPERATOR Unavailable Unavailable Margaret Ro Unavailable Unavailable Rodolfo Rhoades MD Primary Care Provider [phone] Marianne Bolaños Unavailable Unavailable Ariana Bagley Unavailable Unavailable So Caicedo BURRER OPERATOR Unavailable Unavailable Encounter Details Date Type Department Care Team (Late st Contact Info) Description 07/22/2021 Outside Procedure External Location [address] [place] [address] Irma Masterson MD [address] [place] [address] Social History Tobacco Use Types Packs/Day [...] 09/15/2025 1:00 PM EDT Office Visit [facility] [address] [place] [address] Rodolfo Rhoades MD [address] [place] [address] 09/26/2025 8:00 AM EDT Office Visit [facility] [address] [place] [address] Rodolfo Rhoades MD [address] [place] [address] documented as of this encounter Procedures Procedure Name Priority Date/Time Associated Diagnosis Comments CT CHEST LIMITED HISTORICAL 07/22/2021 1:04 PM EDT documented in this encounter Results * CT Chest Limited Historical (07/22/2021 1:04 PM EDT) Anatomical Region Laterality Modality Chest Computed Tomogra phy 07/22/2021 1:04 PM EDT Narrative 07/22/2021 3:35 PM EDT [address] [address] Name: HAILEY ALVAREZ Exam Date: 07/22/2021 : 1975 Age 45 Gender: F Physician: Irma Masterson Facility: [facility] Facility HSV: Outpatient Exam: CT CHEST [...] Thank you for referring HAILEY ALVAREZ to [facility]. Legally authenticated by POPE FUNMILAYO Almonte 2021-07-22 15:24:50 Procedure Note Provider, [facility] 07/22/20[address] [place] [id number] Name: HAILEY ALVAREZ Exam Date: 07/22/2021 : 1975 Age 45 Gender: F Physician: Irma Masterson Facility: [facility] Facility HSV: Outpatient Exam: CT CHEST [...] Thank you for referring HAILEY ALVAREZ to [facility]. Legally authenticated by POPE FUNMILAYO Almonte 2021-07-22 [...] Rule-Out 08/21/2025 08/21/2025 08/21/20 2:03 PM EDT documented as of this encounter Care Teams Clearance Diver Relationship Specialty Start Date End Date Georgette Moore APRN [address] [place] [address] PCP - General 04/12/21 02/01/25 Rodolfo Rhoades MD [address] [place] [address] PCP - General Family Medicine 02/02/25 Hailey Goodwin LPN [employer] [place] [address] TCM Nurse 07/25/24 08/25/24 Margaret Ro Community Health Worker 07/27/24 4 Marianne Bolaños Clinical Factory Process Workers 07/14/25 07/28/25 Ariana Bagley Community Health Worker 07/14/25 07/14/25 So Caicedo LPN [employer] [place] [address] TCM Nurse 09/07/25 documented as of this encounter
--- OUTSIDE RECORDS SUMMARY | 2025-09-15 09:54 | XMS_ITS | Encounter Summary ---
Author Organization [facility] Address [facility] [place] [address] Care Team Providers Care Thermometer Tester Name Role Phone Rodolfo Rhoades MD Primary Care Provider [phone] Marianne Bolaños Unavailable Unavailable Ariana Bagley Unavailable Unavailable Reason for Visit * Reason Onset Date Comments HCN - Patient Message 06/15/2025 Encounter Details Date Type Department Care Team (Late st Contact Info) Description 06/15/2025 Telephone [facility] & [address] [address] Rodolfo Rhoades MD [address] [place] [address] HCN - Patient Message Social [...] living in a custodial (including now)? No 07/14/2025 Safety and Environment [...] th e electric, gas, oil, or water [employer] threatened to shut off services in your [...] optimal time of day to reach caller: [phone] Note: Please do not reply to this [...] Description 09/15/2025 1:00 PM EDT Office Visit [facility] [address] [place] [address] Rodolfo Rhoades MD [address] [place] [address] 09/26/2025 8:00 AM EDT Office Visit [facility] [address] [place] [address] Rodolfo Rhoades MD [address] [place] [address] documented as of this encounter [...] documented as of this encounter Care Teams Thermometer Tester Relationship Specialty Start Date End Date Rodolfo Rhoades MD [address] [facility] [place] [phone] PCP - General Family Medicine 02/02/25 Marianne Bolaños Clinical Opener 07/14/2507/28 Ariana Bagley Community Health Worker 07/14/25 07/14/25 documented as of this encounter
--- OUTSIDE RECORDS SUMMARY | 2025-09-15 09:54 | XMS_ITS | Encounter Summary ---
Author Organization Healthcare Address [address] [id number] Care Team Providers Care Sustainable Development Policy Analyst Name Role Phone Rodolfo Rhoades MD Primary Care Provider [phone] So Caicedo LPN Unavailable Unavailable Encounter Details Date Type Department Care Team (Late st Contact Info) Description 08/06/2025 Outside Procedure External Location [address] [place] [id number] Provider, [place] Social History Tobacco Use Types Packs/Day Years [...] any time in the past 12 m [facility], were you homeless or living in a penitentiary (including now)? No 08/09/2025 [facility] Utilities Answer Date Recorded In the [...] Visit [facility] [address] [place] [address] Rodolfo Rhoades MD [address] [place] [address] 09/26/2025 8:00 AM EDT Office Visit [facility] [address] [place] [address] Rodolfo Rhoades MD [address] [place] [address] documented as of this encounter Procedures Procedure Name Priority Date/Time Associated Diagnosis Comments XR CHEST 1 VIEW 08/06/2025 9:18 AM EDT documented in this encounter Results * XR Chest 1 View (08/06/2025 9:18 AM EDT) Anatomical Region Laterality Modality Chest Digital Radiogra phy 08/06/2025 9:18 AM EDT Narrative 08/06/2025 10:17 [place] [address] Name: HAILEY ALVAREZ Exam Date: 08/06/2025 : 1975 Age 49 years Gender: F Physician: REFUGIO JACKSON Facility: [facility] Facility HSV: Outpatient Exam: CHEST PORTABLE PROCEDURE: XR CHEST 1 VIEW PORTABLE, 08/06/2025 9:05 AM CDT CLINICAL INDICATION: Congestion. COMPARISON: July 21, 2024 TECHNIQUE: Single frontal projection of the chest FINDINGS: Lines/Tubes: None Lungs: No focal opacity, within the limitations of bilateral overlying breast shadows. Decreased interstitial markings to the bilateral lung apices, correlate clinically for emphysema. No large pneumothorax. No large effusion. Mediastinum: Cardiomediastinal silhouette is within normal limits. Left atrial appendage exclusion device. Bones: Median sternotomy. Soft tissues: Unremarkable. IMPRESSION: No specific radiographic evidence of acute cardiopulmonary process. Electronically signed by: Yessy Mcduffie MD 08/06/2025 10:14 AM EDT RP Dictated By: Yessy Mcduffie Transcribed By: Transcribed On: 08/06/2025 10:14 AM Electronically signed by: Yessy Mcduffie 08/06/2025 Thank you for referring HAILEY ALVAREZ to [facility]. Legally authenticated by BRITTON RIVERA 2025-08-06 10:14:11 Procedure Note Provider, Generic [place] - 08/06/[address] [address] Name: HAILEY ALVAREZ Exam Date: 08/06/2025 : 1975 Age 49 years Gender: F Physician: REFUGIO JACKSON Facility: [facility] Facility HSV: Outpatient Exam: CHEST PORTABLE PROCEDURE: XR CHEST 1 VIEW PORTABLE, 08/06/2025 9:05 AM CDT CLINICAL INDICATION: Congestion. COMPARISON: July 21, 2024 TECHNIQUE: Single frontal projection of the chest FINDINGS: Lines/Tubes: None Lungs: No focal opacity, within the limitations of bilateral overlyingbreast shadows. Decreased interstitial markings to the bilateral lung apices, correlate clinically for emphysema. No large pneumothorax. No largeeffusion. Mediastinum: Cardiomediastinal silhouette is within normal limits. Left atrial appendage exclusion device. Bones: Median sternotomy. Soft tissues: Unremarkable. IMPRESSION: No specific radiographic evidence of acute cardiopulmonary process. Electronically signed by: Yessy Mcduffie MD 08/06/2025 10:14 AM EDTRP Dictated By: Yessy Mcduffie Transcribed By: Transcribed On: 08/06/2025 10:14 AM Electronically signed by: Yessy Mcduffie 08/06/2025 Thank you for referring HAILEY ALVAREZ to [facility]. Legally authenticated by BRITTON RIVERA 2025-08-06 10:14:11 Generic [place] Provider IMG XR PROCEDURES Fi nal Result [...] documented as of this encounter Care Teams Sustainable Development Policy Analyst Relationship Specialty Start Date End Date Rodolfo Rhoades MD [address] [place] [address] PCP - General Family Medicine 02/02/25 So Caicedo LPN [employer] [place] [address] TCM Nurse 09/07/25 documented as of this encounter
[2025-09-15 13:31] LABS: PHA INR Fingerstick 1.5 (0.9-1.1)
== END 2025-09-15 13:54 ==
LOC: ACC 09:43
PROVIDERS: PCP Family Medicine; Visit Provider Nurse Practitioner Family
DX: Z79.01 Long term (current) use of anticoagulants (principal)
CPT/HCPCS: 85610; 99211; G0463

== ENCOUNTER 2025-09-22 11:18 | Outpatient (CLI) | payer OTHER, SELFPAY ==
--- OUTSIDE RECORDS SUMMARY | 2025-08-21 14:57 | XMS_ITS | Encounter Summary ---
Author Organization Healthcare Address [address] [place] [address] Care Team Providers Care Grain Combiner Name Role Phone Rodolfo Rhoades MD Primary Care Provider [phone] Reason for Visit * Auth/Cert (Routine) Specialty Diagnoses / Procedures Referred By Kaiser zuniga Referred To Contact Diagnoses Rhabdomyolysis Possible Splenic Laceration and Pneumoperitoneum Emma Lehman MD [facility] [address] [address] Phone: tel: fax: P[facility] S Inpatient [address] [place] [address] Phone: tel: fax: Referral ID Status Reason Start Date Expiration Date Visits Re quested Visits Authorized [id number] 1 1 Encounter Details Date Type Department Care Team (Late st Contact Info) Description 08/21/2025 2:57 PM EDT Anesthesia Event PAV S Operating Room [address] [place] [address] Sosa Cadet MD [address] [place] [address] Alok Wilson DO [address] [place] [address] Anesthesia Record Procedure Summary Procedure [...] any time in the past [address] [facility], were you homeless or living in a halfway (including now)? No 08/09/2025 [facility] Utilities Answer Date Recorded In the past 12 months has [employer], gas, oil, or water company threatened to [...] 1430 Procedure: BIOPSY, MUSCLE (Right) Location: [facility] OR Surgeons: Carla Montes MD Relevant Problems [...] is no recent study available for direct [id number] comparison. Echo, Adult Transthoracic Limited w/ Contrast Result Date: 08/07/2025 [place] [id number] Name: VERONICA WEISS Exam Date: 08/07/2025 : 1975 Age 49 years Gender: F Physician: JOSSE MONTENEGRO Facility: [facility] Facility HSV: Inpatient Exam: ECHO W OR [...] stenosis with a valve area of 1.34 deputy harbormaster (Peak grad=31mmHg, Mean grad=16mmHg, LVOT grady=2.00cm, LVOT TVI=14.2cm, Ao TVI=33.3cm). The dimensionless index is 0.43. AV peak mofatict=437wv/sec. There is a Mechanical AV prosthesis. Tricuspid [...] Thank you for referring VERONICA WEISS to [facility]. Legally authenticated by PATTIE Yun 2025-08-07 12:49:32 PFTs No results found for: [id number] , [id number] , [id number] , FVCPRED BP Readings from Last 5 [...] Plan ASA 4 Plan was reviewed with: POWER PLANT OPERATORS SUPERVISOR Anesthesia technique(s) discussed with the patient/family: general [...] Description 10/12/2025 11:20 AM EST Office Visit [facility] [address] [place] [address] Rodolfo Rhoades MD [address] [place] [address] documented as of this encounter [...] documented as of this encounter Care Teams Grain Combiner Relationship Specialty Start Date End Date Rodolfo Rhoades MD [address] [place] [phone] PCP - General Family Medicine 02/02/25 documented as of this encounter
--- OUTSIDE RECORDS SUMMARY | 2025-09-15 13:00 | XMS_ITS | Encounter Summary ---
Author Organization Healthcare Address [facility] [place] [address] Care Team Providers Care Front End Mechanic Name Role Phone Rodolfo Rhoades MD Primary Care Provider [phone] So Caicedo LPN Unavailable Unavailable Reason for Visit * Reason Comments transition of health Leg wound infection Encounter Details Date Type Department Care Team (Late st Contact Info) Description 09/15/2025 1:00 PM EDT Office Visit [facility] [address] [place] [address] Rodolfo Rhoades MD [address] [place] [address] Sequela, post-stroke (Primary Dx); Non-traumatic rhabdomyolysis; Mixed hyperlipidemia; Vitamin D deficiency; Chronic atrial fibrillation (CMS/HCC); Essential hypertension; Anemia, unspecified type Social History Tobacco Use Types Packs/Day Years [...] in a chcf (including now)? No 08/09/[address] [facility] [...] Sign Reading Time Taken Comments Blood Pressure 142/84 09/15/2025 1:12 PM EDT Pulse 80 09/15/2025 1:12 PM EDT Temperature 36.7 C (98.1 F) 09/15/2025 1:12 PM EDT Respiratory Rate - - Oxygen Saturation 99% 09/15/2025 1:12 PM EDT Inhaled Oxygen Concentration - - Weight - - Height - - Body Mass Index - - documented in this encounter Functional Status * Calculated C-SSRS Risk Score (Lifetime/Recent) Answer Date of Assessment Author No Risk Indicated 09/15/2025 1:22 PM EDT Jozef Bull * Question Answer Date of Assessment Author 1. Wish to be (Past 1 Month) No 025 1:22 PM EDT Jozef Sanders 2. Non-Specific Active Suici omar Thoughts (Past 1 Month) No 09/15/2025 1:22 PM EDT Jozef Sanders 6. Suicidal Behavior (Lifetime) No 5 1:22 PM EDT Jozef Sanders documented as of this encounter Plan of Treatment Upcoming Encounters Date Type Department Care Team (Late st Contact Info) Description 10/12/2025 11:20 AM EST Office Visit [facility] [address] [place] [address] Rodolfo Rhoades MD [address] [place] [address] (work) documented as of this encounter Procedures Procedure Name Priority Date/Time Associated Diagnosis Comments CREATINE KINASE, TOTAL, PLASMA Routine 09/15/2025 2:12 PM EDT Non-traumatic rhabdomyolysis CBC WITH AUTO DIFFERENTIAL Routine 09/15/2025 2:12 PM EDT Chronic atrial fibrillation (CMS/HCC) Essential hypertension Anemia, unspecified type IRON, PLASMA Routine 09/15/2025 2:12 PM EDT Anemia, unspecified type FERRITIN, SERUM Routine 09/15/2025 2:12 PM EDT Anemia, unspecified type VITAMIN B12, SERUM Routine 09/15/2025 2: 12 PM EDT Anemia, unspecified type COMPREHENSIVE METABOLIC PANEL, PLASMA Routine 09/15/2025 2:12 PM EDT Mixed hyperlipidemia Essential hypertension documented in this encounter Results * Vitamin B12, Serum (09/15/2025 2:12 PM EDT) Vitamin B12, Serum 531 210 - 1,033 pg/mL 09/15/2025 7:49 PM EDT [facility] Blood Venous blood specimen / Unknown Venipuncture / Unknown 09/15/2025 2:12 PM EDT 09/15/2025 2:12 PM EDT us Rodolfo Rhoades MD LAB BLOOD ORDERABLES Final Res ult [facility] [address] [place] [address] * Iron, Plasma (09/15/2025 2:12 PM EDT) Iron, Plasma 40 30 - 160 ug/dL 09/15/2025 7:36 PM EDT [facility] Blood Venous blood specimen / Unknown Venipuncture / Unknown 09/15/2025 2:12 PM EDT 09/15/2025 2:12 PM EDT us Rodolfo Rhoades MD LAB BLOOD ORDERABLES Final Res ult Performing Organization Address [facility] Co de Phone Number [facility] [address] [place] [address] * (ABNORMAL) Ferritin, Serum (09/15/2025 2:12 PM EDT) Ferritin, Serum 356(H) 13 - 150 ng/mL 09/15/2025 7:49 PM EDT [facility] Blood Venous blood specimen / Unknown Venipuncture / Unknown 09/15/2025 2:12 PM EDT 09/15/2025 2:12 PM EDT us Rodolfo Rhoades MD LAB BLOOD ORDERABLES Final Res ult Performing Organization Address [facility] Phone Number [facility] [address] [place] [address] * (ABNORMAL) Creatine Kinase, Total, Plasma (09/15/2025 2:12 PM EDT) Creatine Kinase, Plasma 215(H) 37 - 168 U/L 09/15/2025 7:36 PM EDT [facility] Blood Venous blood specimen / Unknown Venipuncture / Unknown 09/15/2025 2:12 PM EDT 09/15/2025 2:12 PM EDT us Rodolfo Rhoades MD LAB BLOOD ORDERABLES Final Res ult Performing Organization Address [facility] de Phone Number [facility] [address] [place] [address] * (ABNORMAL) CBC and Differential (09/15/2025 2:12 PM EDT) WBC Count 8.31 3.70 - 10.30 10*3/uL LAB HEMATOLOGY METHOD 09/15/2025 7:19 PM EDT [facility] RBC Count 3.45(L) 3.90 - 5.20 10*6/uL LAB HEMATOLOGY METHOD 09/15/2025 7:19 PM EDT [facility] HGB 10.4(L) 11.2 - 15.7 g/dL LAB HEMATOLOGY METHOD 09/15/2025 7:19 PM EDT [facility] HCT 34.9 34.0 - 45.0 % LAB HEMATOLOGY METHOD 09/15/2025 7:19 PM EDT [facility] Platelet Count 331 155 - 369 10*3/uL LAB HEMATOLOGY METHOD 09/15/2025 7:19 PM EDT [facility] MCV 101(H) 79 - 98 fL LAB HEMATOLOGY METHOD 09/15/2025 7:19 PM EDT [facility] MCH 30.1 26.0 - 32.0 pg LAB HEMATOLOGY METHOD 09/15/2025 7:19 PM EDT [facility] MCHC 29.8(L) 30.7 - 35.5 g/dL LAB HEMATOLOGY METHOD 09/15/2025 7:19 PM EDT [facility] RDW 15.2(H) 11.5 - 14.5 % LAB HEMATOLOGY METHOD 09/15/2025 7:19 PM EDT [facility] MPV 9.7 8.8 - 12.5 fL LAB HEMATOLOGY METHOD 09/15/2025 7:19 PM EDT [facility] nRBC 0.0 <=0.0 per 100 WBCs LAB HEMATOLOGY METHOD 09/15/2025 7:19 PM EDT [facility] Differential Type Automated LAB HEMATOLOGY METHOD 09/15/2025 7:19 PM EDT [facility] Neutrophils % 62 % LAB HEMATOLOGY METHOD 09/15/2025 7:19 PM EDT [facility] Lymphocytes % 27 % LAB HEMATOLOGY METHOD 09/15/2025 7:19 PM EDT [facility] Monocytes % 8 % LAB HEMATOLOGY METHOD 09/15/2025 7:19 PM EDT [facility] Eosinophils % 3 % LAB HEMATOLOGY METHOD 09/15/2025 7:19 PM EDT [facility] Basophils % 0 % LAB HEMATOLOGY METHOD 09/15/2025 7:19 PM EDT [facility] Immature Granulocytes % 0 % LAB HEMATOLOGY METHOD 09/15/2025 7:19 PM EDT [facility] Neutrophils Absolute 5.13 1.60 - 6.10 10*3/uL LAB HEMATOLOGY METHOD 09/15/2025 7:19 PM EDT [facility] Lymphocytes Absolute 2.20 1.20 - 3.90 10*3/uL LAB HEMATOLOGY METHOD 09/15/2025 7:19 PM EDT [facility] Monocytes Absolute 0.70 0.30 - 0.90 10*3/uL LAB HEMATOLOGY METHOD 09/15/2025 7:19 PM EDT [facility] Eosinophils Absolute 0.22 0.00 - 0.50 10*3/uL LAB HEMATOLOGY METHOD 09/15/2025 7:19 PM EDT [facility] Basophils Absolute 0.03 0.00 - 0.10 10*3/uL LAB HEMATOLOGY METHOD 09/15/2025 7:19 PM EDT [facility] Immature Granulocytes Absolute 0.03 0.00 - 0.06 10*3/uL LAB HEMATOLOGY METHOD 09/15/2025 7:19 PM EDT [facility] Blood Venous blood specimen / Unknown Venipuncture / Unknown 09/15/2025 2:12 PM EDT 09/15/2025 2:12 PM EDT Narrative [facility] - 09/15/2025 7:19 PM EDT Therapeutic decision making should be based on absolute values, rather than percentages. us Rodolfo Rhoades MD LAB BLOOD ORDERABLES Final Res ult [facility] [address] [place] [address] * (ABNORMAL) Comprehensive Metabolic Panel, Plasma (09/15/2025 2:12 PM EDT) Glucose, Plasma 73(L) 74 - 99 mg/dL 09/15/2025 7:36 PM EDT [facility] BUN, Plasma 6(L) 7 - 21 mg/dL 09/15/2025 7:36 PM EDT [facility] Creatinine, Plasma 0.56(L) 0.60 - 1.10 mg/dL 09/15/2025 7:36 PM EDT [facility] BUN/Creatinine Ratio 11 09/15/2025 7:36 PM EDT [facility] Sodium, Plasma 139 136 - 145 mmol/L 09/15/2025 7:36 PM EDT [facility] Potassium, Plasma 4.2 3.6 - 4.9 mmol/L 09/15/2025 7:36 PM EDT [facility] Chloride, Plasma 100 97 - 107 mmol/L 09/15/2025 7:36 PM EDT [facility] CO2, Plasma 31(H) 22 - 29 mmol/L 09/15/2025 7:36 PM EDT [facility] Anion Gap 8 6 - 16 mmol/L 09/15/2025 7:36 PM EDT [facility] Total Calcium, Plasma 10.1 8.9 - 10.2 mg/dL 09/15/2025 7:36 PM EDT [facility] Total Protein 7.1 6.3 - 7.9 g/dL 09/15/2025 7:36 PM EDT [facility] Albumin, Plasma 3.4(L) 3.5 - 5.2 g/dL 09/15/2025 7:36 PM EDT [facility] AST, Plasma 26 10 - 35 U/L 09/15/2025 7:36 PM EDT [facility] ALT, Plasma 16 10 - 35 U/L 09/15/2025 7:36 PM EDT [facility] Alkaline Phosphatase, Plasma 108(H) 35 - 104 U/L 09/15/2025 7:36 PM EDT [facility] Total Bilirubin, Plasma 0.4 0.2 - 1.1 mg/dL 09/15/2025 7:36 PM EDT [facility] eGFRcr 112.7 mL/min/1.7 3m*2 09/15/2025 7:36 PM EDT [facility] Comment:Reported eGFRcr in m L/min/1.73m2 is based the CKD-EPI 2020 equation that does not use a race coefficient. Blood Venous blood specimen / Unknown Venipuncture / Unknown 09/15/2025 2:12 PM EDT 09/15/2025 2:12 PM EDT us Rodolfo Rhoades MD LAB BLOOD ORDERABLES Final Res ult [facility] [address] [place] [address] documented in this encounter Visit Diagnoses Diagnosis Sequela, post-stroke- Primary Non-traumatic rhabdomyolysis Mixed hyperlipidemia Vitamin D deficiency Chronic atrial fibrillation (CMS/HCC) Atrial fibrillation Essential hypertension Unspecified essential hypertension Anemia, unspecified type documented in this encounter Additional Health Concerns Assessment Noted Time PHQ-9 Depression Total Score: 11 07/14/ 025 10:59 AM EDT A fall risk assessment has been complete d for the patient 03/19/2023 1:57 PM EDT A Body Mass Index follow-up plan has been documented for the patient 09/06/2025 3:19 PM EDT documented as of this encounter Care Teams Front End Mechanic Relationship Specialty Start Date End Date Rodolfo Rhoades MD [address] [place] [address] PCP - General Family Medicine 02/02/25 So Caicedo LPN [employer] [place] [address] TCM Nurse 09/07/25 documented as of this encounter
--- OUTSIDE RECORDS SUMMARY | 2025-09-22 11:28 | XMS_ITS | Encounter Summary ---
Author Organization Healthcare Address [address] [place] [address] Care Team Providers Care Shirt Operator Name Role Phone Rodolfo Rhoades MD Primary Care Provider [phone] Encounter Details Date Type Department Care Team (Late st Contact Info) Description 08/08/2025 Orders Only External Location [address] [place] [address] Provider, Swapnil [place] Social History Tobacco Use [...] any time in the past 12 m [facility], were you homeless or living in a nursing home (including now)? No 08/09/2025 [facility] Utilities Answer Date Recorded In [...] Description 10/12/2025 11:20 AM EST Office Visit [facility] [address] [place] [address] Rodolfo Rhoades MD [address] [place] [address] documented as of this encounter Procedures [...] Erythrocyte Sedimentation Rate 67(H) 0 - 20 [facility] 08/08/2025 3:55 AM EDT 08/08/2025 2:26 PM EDT us Generic [place] Provider LAB BLOOD ORDERABLES Final Result Performing Organization Address [facility] Co de Phone Number [facility] * (ABNORMAL) C-Reactive Protein, Plasma (08/08/2025 3:55 AM EDT) External C-Reactive Protein 16.7(H) 0.05 - 0.300 mg/dL [facility] 08/08/2025 3:55 AM EDT 08/08/2025 2:26 PM EDT [facility] Provider LAB BLOOD ORDERABLES Final Result Performing Organization Address [facility] Phone Number [facility] * (ABNORMAL) CK (08/08/2025 3:55 AM EDT) Pathologist [facility] External Creatine Kinase 23880(H) 35 - 232 IU/l [facility] 08/08/2025 3:55 AM EDT 08/08/2025 4:29 AM EDT [facility] Provider LAB BLOOD ORDERABLES Final Result Performing Organization Address [facility] Phone Number [facility] * Magnesium, Plasma (08/08/2025 3:55 AM EDT) Pathologist [facility] External Magnesium 2.1 1.8 - 2.4 MG/DL [facility] 08/08/2025 3:55 AM EDT 08/08/2025 4:30 AM EDT [facility] Provider LAB BLOOD ORDERABLES Final Result Performing Organization Address [facility] Co mi Phone Number [facility] * (ABNORMAL) Basic Metabolic Panel, Plasma (08/08/2025 3:55 AM EDT) External Sodium 131(L) 136 - 145 mmol/L [facility] External Potassium 4.5 3.6 - 5.0 mmol/L [facility] External Chloride 100 98 - 107 mmol/L [facility] External Carbon Dioxide 22.4 21.0 - 32.0 mmol/L [facility] External Anion Gap (AG) 13.1 [facility] External Glucose 134(H) 70 - 120 mg/dl [facility] External BUN 8 7 - 18 mg/dL [facility] External Creatinine Blood 0.5(L) 0.6 - 1.3 mg/dL [facility] External Estimated GFR 116 60- mlpermin [facility] Comment: GFR LIMITATION: The eGFR equation CKD-EPI 2020 is not applicable for pediatric patients or greater than 90 years of age. The following conditions may alter the GFR result: extremes in body size, malnutrition or obesity, skeletal muscle disease, paraplegia or quadriplegia, vegetarian diet or rapidly changing kiney function. External Osmolality (Calculated) 273(L) 275 - 301 mosm/kg [facility] Comment: OSMOLALITY IS A CALCULATION UTILIZING THE SERUM/PLASMA SODIUM, GLUCOSE AND UREA NITROGEN (BUN) LEVELS. FOR THE MOST ACCURATE RESULT A MEASURED SERUM OSMOLALITY IS SUGGESTED. External Calcium 8.1(L) 8.5 - 10.5 mg/dl [facility] 08/08/2025 3:55 AM EDT 08/08/2025 4:30 AM EDT us Generic [place] Provider LAB BLOOD ORDERABLES Final Result [facility] * (ABNORMAL) Prothrombin Time/INR (08/08/2025 3:55 AM EDT) External Prothrombin Time (PT) 11.3 9.3 - 11.4 SECONDS [facility] External INR - Internormal Ratio 1.1(H) 0.97 - 1.05 Ratio [facility] Comment: INR is intended to be used ONLY for patients on stable oral anticoagulant therapy. Therapeutic Ranges: 2.0-3.0 Usual Therapeutic Range 2.5-3.5 For patients with history of Multiple Deep Vein Thrombus or Mechanical Heart Valves 08/08/2025 3:55 AM EDT 08/08/2025 4:29 AM EDT Generic [place] Provider LAB BLOOD ORDERABLES Final Result [facility] * (ABNORMAL) CBC W/O Differential (08/08/2025 3:55 AM EDT) External WBC 9.8 4.0 - 10.5 K/ul [facility] External Red Blood Cell (RBC) 3.7(L) 4.2 - 6.4 M/mm3 [facility] External Hemoglobin 11.0(L) 12.5 - 16.0 gm/dl [facility] External Hematocrit 33.3(L) 37.0 - 47.0 % [facility] External MCV 89.5 78 - 100 fl [facility] External MCH 29.6 27 - 31 pg [facility] External MCHC 33.0 32 - 36 g/dl [facility] External RDW 12.5 11.5 - 14.0 % [facility] External Platelets 368 150 - 450 K/ul [facility] External MPV 10.5(H) 6 - 9.5 fl [facility] External Manual Differential NO [facility] 08/08/2025 3:55 AM EDT 08/08/2025 4:30 AM EDT Generic [place] Provider LAB BLOOD ORDERABLES Final Result [facility] * Phosphorus, Plasma (08/08/2025 3:44 AM EDT) External Phosphorus 3.1 2.5 - 4.9 mg/dl [facility] 08/08/2025 3:44 AM EDT 08/08/2025 1:28 PM EDT us Generic [place] Provider LAB BLOOD ORDERABLES Final Result [facility] documented in this encounter Visit Diagnoses [...] documented as of this encounter Care Teams Shirt Operator Relationship Specialty Start Date End Date Rodolfo Rhoades MD [address] [place] [phone] PCP - General Family Medicine 02/02/25 documented as of this encounter
--- OUTSIDE RECORDS SUMMARY | 2025-09-22 11:28 | XMS_ITS | Encounter Summary ---
Author Organization [facility] Address [address] [id number] Care Team Providers Care Rigging Helper Name Role Phone Georgette Moore APRN Primary Care Provider [phone] Veronica Goodwin LPN Unavailable Unavailable Margaret Ro Unavailable Unavailable Rodolfo Rhoades MD Primary Care Provider [phone] Marianne Bolaños Unavailable Unavailable Ariana Bagley Unavailable Unavailable So Caicedo OCCUPATIONAL HEALTH NURSE MANAGER Unavailable Unavailable Encounter Details Date Type Department Care Team (Late st Contact Info) Description 02/06/2022 Outside Procedure External Location [address] [place] [phone] Provider, Swapnil [place] Social History Tobacco Use Types Packs/Day Years [...] Description 10/12/2025 11:20 AM EST [facility] [address] [place] [address] Rodolfo Rhoades MD [address] [place] [address] documented as of this encounter Procedures Procedure Name Priority Date/Time Associated Diagnosis Comments XR LUMBAR SPINE 2 OR 3 VIEWS 02/06/2022 2:09 PM EST documented in this encounter Results * XR Lumbar Spine 2 or 3 Views (02/06/2022 2:09 PM EST) Anatomical Region Laterality Modality Spine, L-spine Radiographic Tierra ging 02/06/2022 2:09 PM EST Narrative 02/06/2022 3:19 [place] [address] Name: VERONICA ALVAREZ Exam Date: 02/06/2022 : 1975 Age 46 Gender: F Physician: HORACE RYAN Facility: [facility] Facility HSV: Outpatient Exam: [id number] [...] Thank you for referring VERONICA ALVAREZ to [facility]. Legally authenticated by GADIEL DELEON 2022-02-06 15:07:32 Procedure Note Provider, [facility] - 02/06/2022 [place] [address] Name: VERONICA ALVAREZ Exam Date: 02/06/2022 : 1975 Age 46 Gender: F Physician: HORACE RYAN Facility: [facility] Facility HSV: Outpatient Exam: [id number] [...] Thank you for referring VERONICA ALVAREZ to [facility]. Legally authenticated by GADIEL DELEON 2022-02-06 15:07:32 Generic [place] Provider IMG XR PROCEDURES Fi nal Result [...] 25 2:03 PM EDT Assessment Noted Time A fall risk assessment has been complete d for the patient 08/02/2021 10:52 AM EDT documented as of this encounter Care Teams Rigging Helper Relationship Specialty Start Date End Date Georgette Moore APRN [address] [place] [address] PCP - General 04/12/21 02/01/25 Rodolfo Rhoades MD [address] [place] [address] PCP - General Family Medicine 02/02/25 Veronica Goodwin LPN VAL[employer]ED [place] [address] TCM Nurse 07/25/24 08/25/24 Margaret Ro Community Health Worker 07/27/24 4 Marianne Bolaños Clinical Platform Material Handling Supervisor 07/14/25 07/28/25 Ariana Bagley Community Health Worker 07/14/25 07/14/25 So Caicedo LPN VALUE-[employer]ED [place] [address] TCM Nurse 09/07/25 documented as of this encounter
--- OUTSIDE RECORDS SUMMARY | 2025-09-22 11:28 | XMS_ITS | Encounter Summary ---
Author Organization Healthcare Address [facility] [place] [place] [address] Care Team Providers Care Motion Picture Set Grip Name Role Phone Rodolfo Rhoades MD Primary Care Provider [phone] So Caicedo LPN Unavailable Unavailable Encounter Details Date Type Department Care Team (Late st Contact Info) Description 09/20/2025 Results Follow-Up [facility] [address] [place] [address] Rodolfo Rhoades MD [address] [place] [address] Social History Tobacco Use Types [...] any time in the past 12 m [facility], were you homeless or living in a alf (including now)? No 08/09/2025 [facility] Utilities Answer Date Recorded In the past 12 months has e [employer], gas, oil, or water [employer] threatened to shut off services in your [...] Description 10/12/2025 11:20 AM EST Office Visit [facility] [address] [place] [address] Rodolfo Rhoades MD [address] [facility] [place] [address] documented as of this encounter [...] documented as of this encounter Care Teams Motion Picture Set Grip Relationship Specialty Start Date End Date Rodolfo Rhoades MD [address] [place] [address] PCP - General Family Medicine 02/02/25 So Caicedo LPN [employer] [place] [address] TCM Nurse 09/07/25 documented as of this encounter
--- OUTSIDE RECORDS SUMMARY | 2025-09-22 11:28 | XMS_ITS | Encounter Summary ---
Author Organization Healthcare Address [address] [id number] Care Team Providers Care Mat Making Machine Tender Name Role Phone Rodolfo Rhoades MD Primary Care Provider [phone] So Caicedo LPN Unavailable Unavailable Encounter Details Date Type Department Care Team (Late st Contact Info) Description 09/07/2025 Results Follow-Up [facility] Inpatient Pharmacy [address] [place] [phone] Annemarie Grover, Pharm[place] [address] Social History Tobacco Use Types Packs/Day Years [...] in the past 12 m [facility], were you homeless or living in a jail (including now)? No 08/09/2025 [facility] Utilities Answer Date Recorded In the past 12 months has e [employer], gas, oil, or water company threatened to [...] Description 10/12/2025 11:20 AM EST Office Visit [facility] [address] [place] [address] Rodolfo Rhoades MD [address] [place] [address] documented as of this encounter [...] documented as of this encounter Care Teams Mat Making Machine Tender Relationship Specialty Start Date End Date Rodolfo Rhoades MD [address] [place] [address] PCP - General Family Medicine 02/02/25 So Caicedo LPN VAL[employer]ED [place] [address] TCM Nurse 09/07/25 documented as of this encounter
--- OUTSIDE RECORDS SUMMARY | 2025-09-22 11:28 | XMS_ITS | Encounter Summary ---
Author Organization Healthcare Address [address] [place] [address] Care Team Providers Care Funeral Pre Need Consultant Name Role Phone Rodolfo Rhoades MD Primary Care Provider [phone] Encounter Details Date Type Department Care Team (Late st Contact Info) Description 08/06/2025 Orders Only External Location [address] [place] [address] [place] [address] [place] [address] Social History Tobacco Use Types Packs/Day Years [...] in the past 12 m [facility], were you homeless or living in a snf (including now)? No 08/09/2025 [facility] Utilities Answer Date Recorded In the past 12 months has e [employer], gas, oil, or water [employer] threatened to shut off services in [...] Description 10/12/2025 11:20 AM EST Office Visit [facility] [address] [place] [address] Rodolfo Rhoades MD [address] [place] [address] documented as of this [...] documented as of this encounter Care Teams Funeral Pre Need Consultant Relationship Specialty Start Date End Date Rodolfo Rhoades MD [address] [place] [address] PCP - General Family Medicine 02/02/25 documented as of this encounter
--- OUTSIDE RECORDS SUMMARY | 2025-09-22 11:28 | XMS_ITS | Encounter Summary ---
Author Organization Healthcare Address [address] [place] [address] Care Team Providers Care Lathe Tender Name Role Phone Rodolfo Rhoades MD Primary Care Provider [phone] Encounter Details Date Type Department Care Team [...] in a jail (including now)? No 08/09/2025 [facility] Utilities Answer Date Recorded In the [...] Description 10/12/2025 11:20 AM EST Office Visit [facility] [address] [place] [address] Rodolfo Rhoades MD [address] [place] [address] documented as of this encounter Visit Diagnoses Not on filedocumented in this encounter Additional Health Concerns Infection Onset Date Last Indicated Resolved Time Meningitis Rule-Out 08/21/2025 08/21/2025 08/21/20 2:03 PM EDT Assessment Noted Time PHQ-9 Depression Total Score: 11 025 10:59 AM EDT A fall risk assessment has been complete d for the patient 03/19/2023 1:57 PM EDT A Body Mass Index follow-up plan has been documented for the patient 09/06/2025 3:19 PM EDT documented as of this encounter Care Teams Lathe Tender Relationship Specialty Start Date End Date Rodolfo Rhoades MD [address] [place] [address] PCP - General Family Medicine 02/02/25 documented as of this encounter
--- OUTSIDE RECORDS SUMMARY | 2025-09-22 11:28 | XMS_ITS | Encounter Summary ---
Author Organization Healthcare Address [address] [place] [address] Care Team Providers Care Fire Services Plumber Name Role Phone Rodolfo Rhoades MD Primary Care Provider [phone] Encounter Details Date Type Department Care Team [...] living in a longterm (including now)? No 08/09/2025 [facility] Utilities Answer Date Recorded In the past [...] Behavior (Lifetime) No 4:00 AM EDT Andres Schuzl documented as of this encounter Plan of Treatment Upcoming Encounters Date Type Department Care Team (Late st Contact Info) Description 10/12/2025 11:20 AM EST Office Visit [facility] [address] [place] [address] Rodolfo Rhoades MD [address] [place] [address] documented as of this encounter [...] as of this encounter Care Teams Fire Services Plumber Relationship Specialty Start Date End Date Rodolfo Rhoades MD [address] [place] [address] PCP - General Family Medicine 02/02/25 documented as of this encounter
--- OUTSIDE RECORDS SUMMARY | 2025-09-22 11:28 | XMS_ITS | Encounter Summary ---
Author Organization Healthcare Address [address] [place] [address] Care Team Providers Care Process Control Specialist Name Role Phone Rodolfo Rhoades MD Primary Care Provider [phone] Encounter Details Date Type Department Care Team [...] No 08/09/2025 Housing Stability Vital Sign Answer Yoavny e Recorded In the last 12 months, [...] living in a prison (including now)? No 08/09/2025 [facility] Utilities Answer Date Recorded In [...] Indicated 08/30/2025 4:00 PM EDT Alcon Coughlin * Question Answer Date of Assessment Author [...] AM EST Office Visit [facility] [address] [place] [address] Rodolfo Rhoades MD [address] [place] [address] documented as of this encounter [...] as of this encounter Care Teams Process Control Specialist Relationship Specialty Start Date End Date Rodolfo Rhoades MD [address] [place] [address] PCP - General Family Medicine 02/02/25 documented as of this encounter
--- OUTSIDE RECORDS SUMMARY | 2025-09-22 11:28 | XMS_ITS | Encounter Summary ---
Author Organization [facility] Address [address] [id number] Care Team Providers Care Cadet Deck Name Role Phone Georgette Moore APRN Primary Care Provider [phone] Veronica Goodwin LPN Unavailable Unavailable Margaret Ro Unavailable Unavailable Rodolfo Rhoades MD Primary Care Provider [phone] Marianne Bolaños Unavailable Unavailable Ariana Bagley Unavailable Unavailable So Caicedo PUBLIC BATH ATTENDANT Unavailable Unavailable Encounter Details Date Type Department Care Team (Late st Contact Info) Description 02/06/2022 Outside Procedure External Location [address] [place] [address] Provider, Swapnil [place] Social History Tobacco Use Types Packs/Day Years [...] Description 10/12/2025 11:20 AM EST Office Visit [facility] [address] [place] [address] Rodolfo Rhoades MD [address] [place] [address] documented as of this encounter Procedures Procedure Name Priority Date/Time Associated Diagnosis Comments XR CERVICAL SPINE 2 OR 3 VIEWS 02/06/2022 2:09 PM EST documented in this encounter Results * XR Cervical Spine 2 or 3 Views (02/06/2022 2:09 PM EST) Anatomical Region Laterality Modality Spine, C-spine Radiographic Tierra ging 02/06/2022 2:09 PM EST Narrative 02/06/2022 3:21 [place] [address] Name: VERONICA ALVAREZ Exam Date: 02/06/2022 : 1975 Age 46 Gender: F Physician: HORACE RYAN Facility: [facility] Facility HSV: Outpatient Exam: CERVICAL SPINE [...] Thank you for referring VERONICA ALVAREZ to [facility]. Legally authenticated by GADIEL DELEON 2022-02-06 15:08:51 Procedure Note Provider, Generic [place] - 02/06/2022 [place] [address] Name: VERONICA ALVAREZ Exam Date: 02/06/2022 : 1975 Age 46 Gender: F Physician: HORACE RYAN Facility: [facility] Facility HSV: Outpatient Exam: CERVICAL SPINE [...] Thank you for referring VERONICA ALVAREZ to [facility]. Legally authenticated by GADIEL DELEON 2022-02-06 15:08:51 Generic [place] Provider IMG XR PROCEDURES Fi nal Result [...] documented as of this encounter Care Teams Cadet Deck Relationship Specialty Start Date End Date Georgette Moore APRN [address] [place] [address] PCP - General 04/12/21 02/01/25 Rodolfo Rhoades MD [address] [place] [address] PCP - General Family Medicine 02/02/25 Veronica Goodwin LPN [employer] [place] [address] TCM Nurse 07/25/24 08/25/24 Margaret Ro Community Health Worker 07/27/24 4 WaMarianne glez Clinical Dice Table Operator 07/14/25 07/28/25 Ariana Bagley Community Health Worker 07/14/25 07/14/25 So Caicedo LPN [employer] [place] [address] TCM Nurse 09/07/25 documented as of this encounter
--- OUTSIDE RECORDS SUMMARY | 2025-09-22 11:28 | XMS_ITS | Encounter Summary ---
Author Organization Healthcare Address [address] [place] [address] Care Team Providers Care Medical Office Supervisor Name Role Phone Rodolfo Rhoades MD Primary Care Provider [phone] Encounter Details Date Type Department Care Team (Late st Contact Info) Description 08/07/2025 Orders Only External Location [address] [place] [address] Provider, Swapnil [place] Social History Tobacco Use [...] Description 10/12/2025 11:20 AM EST [facility] [address] [place] [address] Rodolfo Rhoades MD [address] [place] [address] documented as of this encounter Procedures Procedure Name Priority Date/Time Associated Diagnosis Comments TROPONIN ([facility]) Routine 08/07/2025 5:05 AM EDT PROTHROMBIN TIME(PT) [...] External Troponin 294(HH) 0 - 51 ng/L [facility] Comment: PATIENT SAMPLES MAY CONTAIN CARDIAC [...] 5:05 AM EDT 08/07/2025 8:29 AM EDT [facility] [place] Provider LAB BLOOD ORDERABLES Final Result Performing Organization Address [facility] Phone Number [facility] * (ABNORMAL) CK (08/07/2025 5:05 AM EDT) External Creatine Kinase 85968(H) 35 - 232 IU/l [facility] Comment:SPECIMEN HAD TO BE D ILUTED FARTHER. SG 08/07/2025 5:05 AM EDT 08/07/2025 5:38 AM EDT [facility] Provider LAB BLOOD ORDERABLES Edited Result - Final Performing Organization Address [facility] Number [facility] * Hemoglobin A1c (08/07/2025 5:05 AM EDT) External Hemoglobin A1c 5.5 3.8 - 5.6 % [facility] Comment: GLYCOSYLATED HEMOGLOBIN (A1C) EXPECTED RANGES: <6.5 NON-DIABETIC 6.5-7.5 EXCELLENT 7.5-8.5 GOOD >8.5 POOR 08/07/2025 5:05 AM EDT 08/07/2025 5:38 AM EDT [facility] [place] Provider LAB BLOOD ORDERABLES Final Result Performing Organization Address [facility] Phone Number [facility] * (ABNORMAL) Lipid Profile, Plasma (08/07/2025 5:05 AM EDT) External Triglyceride 98 30 - 200 mg/dl [facility] External Cholesterol 113 0 - 200 mg/dl [facility] External HDL Cholesterol 28(L) 40 - 104 mg/dL [facility] External LDL Cholesterol-Calcu lated 65 0 - 130 mg/dL [facility] 08/07/2025 5:05 AM EDT 08/07/2025 5:38 AM EDT Generic [place] Provider LAB BLOOD ORDERABLES Final Result Performing Organization Address [facility] Co de Phone Number [facility] * Magnesium, Plasma (08/07/2025 5:05 AM EDT) External Magnesium 2.1 1.8 - 2.4 MG/DL [facility] 08/07/2025 5:05 AM EDT 08/07/2025 5:38 AM EDT [facility] [place] Provider LAB BLOOD ORDERABLES Final Result Performing Organization Address City/[facility]/ZIP Co de Phone Number [facility] * (ABNORMAL) Basic Metabolic Panel, Plasma (08/07/2025 5:05 AM EDT) External Sodium 134(L) 136 - 145 mmol/L [facility] External Potassium 4.0 3.6 - 5.0 mmol/L [facility] External Chloride 104 98 - 107 mmol/L [facility] External Carbon Dioxide 24.1 21.0 - 32.0 mmol/L [facility] External Anion Gap (AG) 9.9 [facility] External Glucose 84 70 - 120 mg/dl [facility] External BUN 6(L) 7 - 18 mg/dL [facility] External Creatinine Blood 0.5(L) 0.6 - 1.3 mg/dL [facility] External Estimated GFR 116 60- mlpermin [facility] Comment: GFR LIMITATION: The eGFR equation CKD-EPI 2020 is not applicable for pediatric patients or greater than 90 years of age. The following conditions may alter the GFR result: extremes in body size, malnutrition or obesity, skeletal muscle disease, paraplegia or quadriplegia, vegetarian diet or rapidly changing kiney function. External Osmolality (Calculated) 276 275 - 301 mosm/kg [facility] Comment: OSMOLALITY IS A CALCULATION UTILIZING THE SERUM/PLASMA SODIUM, GLUCOSE AND UREA NITROGEN (BUN) LEVELS. FOR THE MOST ACCURATE RESULT A MEASURED SERUM OSMOLALITY IS SUGGESTED. External Calcium 7.8(L) 8.5 - 10.5 mg/dl [facility] 08/07/2025 5:05 AM EDT 08/07/2025 5:38 AM EDT Generic [place] Provider LAB BLOOD ORDERABLES Final Result Performing Organization Address [facility] Co de Phone Number [facility] * (ABNORMAL) Prothrombin Time/INR (08/07/2025 5:05 AM EDT) External Prothrombin Time (PT) 17.3(H) 9.3 - 11.4 SECONDS [facility] External INR - Internormal Ratio 1.7(H) 0.97 - 1.05 Ratio [facility] Comment: INR is intended to be used ONLY for patients on stable oral anticoagulant therapy. Therapeutic Ranges: 2.0-3.0 Usual Therapeutic Range 2.5-3.5 For patients with history of Multiple Deep Vein Thrombus or Mechanical Heart Valves 08/07/2025 5:05 AM EDT 08/07/2025 5:38 AM EDT [facility] [place] Provider LAB BLOOD ORDERABLES Final Result Performing Organization Address [facility] Co de Phone Number [facility] * (ABNORMAL) CBC W/O Differential (08/07/2025 5:05 AM EDT) External WBC 11.7(H) 4.0 - 10.5 K/ul [facility] External Red Blood Cell (RBC) 3.4(L) 4.2 - 6.4 M/mm3 [facility] External Hemoglobin 10.3(L) 12.5 - 16.0 gm/dl [facility] External Hematocrit 30.8(L) 37.0 - 47.0 % [facility] External MCV 89.5 78 - 100 fl [facility] External MCH 29.9 27 - 31 pg [facility] External MCHC 33.4 32 - 36 g/dl [facility] External RDW 12.7 11.5 - 14.0 % [facility] External Platelets 306 150 - 450 K/ul [facility] External MPV 10.0(H) 6 - 9.5 fl [facility] External Manual Differential NO [facility] 08/07/2025 5:05 AM EDT 08/07/2025 5:38 AM EDT us Generic [place] Provider LAB BLOOD ORDERABLES Final Result [facility] documented in this encounter Visit Diagnoses [...] as of this encounter Care Teams Medical Office Supervisor Relationship Specialty Start Date End Date Rodolfo Rhoades MD [address] [place] [address] PCP - General Family Medicine 02/02/25 documented as of this encounter
--- OUTSIDE RECORDS SUMMARY | 2025-09-22 11:28 | XMS_ITS | Encounter Summary ---
Author Organization Healthcare Address [address] [place] [address] Care Team Providers Care Paper Cutting Machine Operator Name Role Phone Rodolfo Rhoades MD Primary Care Provider [phone] So Caicedo LPN Unavailable Unavailable Reason for Visit * Reason Comments TCM Encounter Details Date Type Department Care Team (Late st Contact Info) Description 09/07/2025 Patient Outreach [facility] [address] [facility], [address] [place] [address] So Caicedo LPN VALUE-BASED [place] [address] TCM Social History Tobacco Use Types Packs/Day [...] time in the past 12 m [facility], were you homeless or living in a mcfp (including now)? No 08/09/[address] [facility] Utilities Answer Date Recorded In the past 12 months has th e [employer], gas, oil, or water [employer] threatened to shut off services in your [...] Date: 08/08/2025 Discharge Date: 09/06/2025 Hospital Service: [facility] Discharge Diagnosis: Rhabdomyolysis 09/07/2025 TCM call # [...] Description 10/12/2025 11:20 AM EST Office Visit [address] [address] Rodolfo Rhoades MD [address] [place] [address] documented as of this encounter [...] documented as of this encounter Care Teams Paper Cutting Machine Operator Relationship Specialty Start Date End Date Rodolfo Rhoades MD [address] [place] [address] PCP - General Family Medicine 02/02/25 So Caicedo, ANTOINE VALUE-BASED [place] [address] TCM Nurse 09/07/25 documented as of this encounter
--- OUTSIDE RECORDS SUMMARY | 2025-09-22 11:28 | XMS_ITS | Encounter Summary ---
Author Organization Healthcare Address [address] [place] [address] Care Team Providers Care Track Inspecting Supervisor Name Role Phone Georgette Moore APRN Primary Care Provider [phone] Rodolfo Rhoades MD Primary Care Provider [phone] Wages, Marianne Delgado Unavailable Unavailable Ariana Bagley Unavailable Unavailable So Caicedo LPN Unavailable Unavailable Reason for Visit * Reason Comments Med Refill Encounter Details Date Type Department Care Team (Late st Contact Info) Description 11/28/2024 Refill [facility] [address] [place] [address] Imelda Burgos APRN [address] [place] [address] COPD exacerbation (CMS/HCC); Cough with [...] Description 10/12/2025 11:20 AM EST Office Visit [facility] [address] [place] [address] Rodolfo Rhoades MD [address] [place] [address] documented as of this encounter Visit Diagnoses Diagnosis COPD exacerbation (CMS/[facility]) Obstructive chronic bronchitis with exacerbation Cough with [...] documented as of this encounter Care Teams Track Inspecting Supervisor Relationship Specialty Start Date End Date Georgette Moore APRN [address] [place] [address] PCP - General 04/12/21 02/01/25 Rodolfo Rhoades MD [address] [place] [address] PCP - General Family Medicine 02/02/25 Marianne Bolaños Clinical Implementation Consultant 07/14/25 07/28/25 Ariana Bagley Community Health Worker 07/14/25 07/14/25 So Caicedo, ANTOINE [employer] [address] TCM Nurse 09/07/25 documented as of this encounter
--- OUTSIDE RECORDS SUMMARY | 2025-09-22 11:28 | XMS_ITS | Encounter Summary ---
Author Organization Healthcare Address [address] [place] [address] Care Team Providers Care Driver Messenger Name Role Phone Rodolfo Rhoades MD Primary Care Provider Encounter Details Date Type Department Care Team (Late st Contact Info) Description 08/06/2025 Orders Only External Location [address] [place] [address] Provider, External Social History Tobacco Use Types [...] any time in the past 12 m [facility], were you homeless or living in a care home (including now)? No 08/09/2025 [facility] Utilities Answer Date Recorded In the [...] Description 10/12/2025 11:20 AM EST Office Visit [facility] [address] [place] [address] Rodolfo Rhoades MD [address] [place] [address] documented as of this encounter [...] documented as of this encounter Care Teams Driver Messenger Relationship Specialty Start Date End Date Rodolfo Rhoades MD [address] [place] [address] PCP - General Family Medicine 02/02/25 documented as of this encounter
--- OUTSIDE RECORDS SUMMARY | 2025-09-22 11:28 | XMS_ITS | Encounter Summary ---
Author Organization Healthcare Address [address] [place] [id number] Care Team Providers Care Equine Dentist Name Role Phone Rodolfo Rhoades MD Primary Care Provider [phone] Encounter Details Date Type Department Care Team (Late st Contact Info) Description 08/08/2025 Orders Only External Location [address] [place] [address] [place] [address] [place] [address] Social History Tobacco Use Types Packs/Day Years [...] in the past 12 m [facility], were you homeless or living in a long term (including now)? No 08/09/2025 [facility] Utilities Answer Date Recorded In the past 12 months has e [employer], gas, oil, or water [employer] threatened to shut off services in your [...] Description 10/12/2025 11:20 AM EST Office Visit [address] [address] Rodolfo Rhoades MD [address] [place] [address] documented as of this encounter [...] External Magnesium 2.2 1.8 - 2.4 MG/DL [facility] 08/08/2025 9:00 PM EDT 08/08/2025 9:05 PM EDT us Generic [facility] Provider LAB BLOOD ORDERABLES Final Result [facility] * (ABNORMAL) Comprehensive Metabolic Panel, Plasma (08/08/2025 9:00 PM EDT) External Sodium 127(L) 136 - 145 mmol/L [facility] External Potassium 4.6 3.6 - 5.0 mmol/L [facility] External Chloride 94(L) 98 - 107 mmol/L [facility] External Carbon Dioxide 21.7 21.0 - 32.0 mmol/L [facility] External Anion Gap (AG) 15.9 [facility] External Glucose 135(H) 70 - 120 mg/dl [facility] External BUN 11 7 - 18 mg/dL [facility] External Creatinine Blood 0.4(L) 0.6 - 1.3 mg/dL [facility] External Estimated GFR 123 60- mlpermin [facility] Comment: GFR LIMITATION: The eGFR equation CKD-EPI 2020 is not applicable for pediatric patients or greater than 90 years of age. The following conditions may alter the GFR result: extremes in body size, malnutrition or obesity, skeletal muscle disease, paraplegia or quadriplegia, vegetarian diet or rapidly changing kiney function. External Osmolality (Calculated) 267(L) 275 - 301 mosm/kg [facility] Comment: OSMOLALITY IS A CALCULATION UTILIZING THE SERUM/PLASMA SODIUM, GLUCOSE AND UREA NITROGEN (BUN) LEVELS. FOR THE MOST ACCURATE RESULT A MEASURED SERUM OSMOLALITY IS SUGGESTED. External Total Protein 6.2(L) 6.4 - 8.2 g/dl [facility] External Albumin 1.8(L) 3.4 - 5.0 g/dl [facility] External Globulin 4.4 [facility] External Albumin/Globuli n Ratio 0.4(L) 0.7 - 2 [facility] External Calcium 8.3(L) 8.5 - 10.5 mg/dl [facility] External Bilirubin Total 1.00 0.10 - 1.00 mg/dL [facility] External AST (SGOT) 2362(H) 0 - 37 U/L [facility] External ALT (SGPT) 824(H) 0 - 65 U/L [facility] External Alkaline Phosphatase 93 46 - 116 U/L [facility] 08/08/2025 9:00 PM EDT 08/08/2025 9:05 PM EDT us Generic [facility] Provider LAB BLOOD ORDERABLES Final Result Performing Organization Address [facility] Co de Phone Number [facility] * APTT (08/08/2025 9:00 PM EDT) External Partial Thromboplastin Time (PTT) 26.1 24.5 - 32.8 SECONDS [facility] 08/08/2025 9:00 PM EDT 08/08/2025 9:05 PM EDT [facility] Provider LAB BLOOD ORDERABLES Final Result Performing Organization Address [facility] Co de Phone Number [facility] * (ABNORMAL) Prothrombin Time/INR (08/08/2025 9:00 PM EDT) External Prothrombin Time (PT) 11.2 9.3 - 11.4 SECONDS [facility] External INR - Internormal Ratio 1.1(H) 0.97 - 1.05 Ratio [facility] Comment: INR is intended to be used ONLY for patients on stable oral anticoagulant therapy. Therapeutic Ranges: 2.0-3.0 Usual Therapeutic Range 2.5-3.5 For patients with history of Multiple Deep Vein Thrombus or Mechanical Heart Valves 08/08/2025 9:00 PM EDT 08/08/2025 9:05 PM EDT Generic [facility] Provider LAB BLOOD ORDERABLES Final Result Performing Organization Address [facility]/ZIP Co de Phone Number [facility] * Methicillin Resistant Staphylococcus aureus (MRSA) Culture (08/08/2025 8:35 PM EDT) External Culture NEGATIVE NEGATIVE [facility] Nasal contents 08/08/2025 8: 35 PM EDT 08/08/2025 9:05 PM EDT Generic [facility] Provider LAB MICROBIOLOGY - G ENERAL ORDERABLES Final Result Performing Organization Address [facility] de Phone Number [facility] * CT OUTSIDE IMAGES (08/08/2025 1:28 PM EDT) Anatomical Region Laterality Modality Computed Tomogra phy 08/08/2025 1:28 PM EDT Louise ALDANA IMG CT PROCEDURES Edited Resu lt [...] documented as of this encounter Care Teams Equine Dentist Relationship Specialty Start Date End Date Rodolfo Rhoades MD [address] [facility] [place] [address] PCP - General Family Medicine 02/02/25 documented as of this encounter
--- OUTSIDE RECORDS SUMMARY | 2025-09-22 11:28 | XMS_ITS | Encounter Summary ---
Author Organization Healthcare Address [address] [id number] Care Team Providers Care Fire Captain Marine Name Role Phone Rodolfo Rhoades MD Primary Care Provider [phone] So Caicedo LPN Unavailable Unavailable Encounter Details Date Type Department Care Team (Late st Contact Info) Description 08/08/2025 Outside Procedure External Location [address] [place] [phone] Provider, Swapnil [place] Social History Tobacco Use Types Packs/Day Years [...] living in a long-term (including now)? No 08/09/2025 [facility] Utilities Answer Date Recorded In the [...] Description 10/12/2025 11:20 AM EST Office Visit [facility] [address] [place] [address] Rodolfo Rhoades MD [address] [place] [address] documented as of this encounter Procedures Procedure Name Priority Date/Time Associated Diagnosis Comments CT HIP LEFT W IV CONTRAST 08/08/2025 10:23 AM EDT documented in this encounter Results * CT Hip Left w IV Contrast (08/08/2025 10:23 AM EDT) Anatomical Region Laterality Modality Lower Extremities, Hip Left Computed Tomography 08/08/2025 10:2 3 AM EDT Narrative 08/08/2025 3:06 PM EDT [address] [address] Name: HAILEY ALVAREZ Exam Date: 08/08/2025 : 1975 Age 49 years Gender: F Physician: LOBO LOWERY Facility: [facility] Facility HSV: Inpatient Exam: CT LOWER [...] Thank you for referring HAILEY ALVAREZ to [facility]. Legally authenticated by AVI Colin 2025-08-08 15:01:48 Procedure Note Provider, Swapnil Lorton - 08/08/2025 [place] [address] Name: HAILEY ALVAREZ Exam Date: 08/08/2025 : 1975 Age 49 years Gender: F Physician: LOBO LOWERY Facility: [facility] Facility HSV: Inpatient Exam: CT LOWER EXT WITH LT EXAM: CT LOWER EXTREMITY WITH IV CONTRAST LEFT HISTORY: fall, 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 COMPARISON: None. Procedure: Thin section axial images were obtained through the lower extremities after the administration of intravenous contrast..Reconstructed images in the sagittal and coronal planes were reviewed. CT [facility] use dose modulation, iterative [...] 03:01 PM EDT RP Dictated By: Clive oPsadas Transcribed By: Transcribed On: 08/08/2025 3:01 PM Electronically signed by: Clive Posadas 08/08/2025 Thank you for referring HAILEY ALVAREZ to [facility]. Legally authenticated by AVI Colin 2025-08-08 15:01:48 Generic Lorton Provider IMG CT PROCEDURES Fi nal Result [...] as of this encounter Care Teams Fire Captain Marine Relationship Specialty Start Date End Date Rodolfo Rhoades MD [address] [place] [address] PCP - General Family Medicine 02/02/25 So Caicedo LPN VALUE-BASED [place] [address] TCM Nurse 09/07/25 documented as of this encounter
--- OUTSIDE RECORDS SUMMARY | 2025-09-22 11:28 | XMS_ITS | Encounter Summary ---
Author Organization Healthcare Address [address] [id number] Care Team Providers Care Blood Bank Laboratory Professional Name Role Phone Rodolfo Rhoades MD Primary Care Provider [phone] So Caicedo LPN Unavailable Unavailable Encounter Details Date Type Department Care Team (Late st Contact Info) Description 08/08/2025 Outside Procedure External Location [address] [place] [phone] Provider, Swapnil [place] Social History Tobacco Use Types Packs/Day Years [...] in a longterm (including now)? No 08/09/2025 [facility] Utilities Answer Date Recorded In the past [...] Description 10/12/2025 11:20 AM EST Office Visit [facility] [address] [place] [address] Rodolfo Rhoades MD [address] [place] [address] documented as of this encounter Procedures Procedure Name Priority Date/Time Associated Diagnosis Comments CT ABDOMEN PELVIS W IV CONTRAST 08/08/2025 10:24 AM EDT documented in this encounter Results * CT Abdomen Pelvis w IV Contrast (08/08/2025 10:24 AM EDT) Anatomical Region Laterality Modality Abdomen, Pelvis Computed Tomogra phy 08/08/2025 10:2 4 AM EDT Narrative 08/08/2025 2:59 PM EDT [address] [address] Name: HAILEY ALVAREZ Exam Date: 08/08/2025 : 1975 Age 49 years Gender: F Physician: LOBO LOWERY Facility: [facility] Facility HSV: Inpatient Exam: CT ABD PEL [...] Thank you for referring HAILEY ALVAREZ to [facility]. Legally authenticated by AVI Colin 2025-08-08 14:56:42 Procedure Note Provider, Generic [place] - 08/08/[address] [id number] Name: HAILEY ALVAREZ Exam Date: 08/08/2025 : 1975 Age 49 years Gender: F Physician: LOBO LOWERY Facility: [facility] Facility HSV: Inpatient Exam: CT ABD PEL W EXAMINATION: CT ABDOMEN PELVIS WITH IV CONTRAST HISTORY: fall, inability to move left leg, severe rhabdomyolysis, r/ofx. COMPARISON: None. TECHNIQUE: Contiguous axial images through the abdomen and pelvis were acquired following the administration of intravenous contrast.Reconstructed images in the coronal and sagittal planes were reviewed. CT [facility] use dose modulation, iterative reconstruction [...] Clive Posadas MD 08/08/2025 02:56 PM EDT RP Legally authenticated by AVI Colin 2025-08-08 14:56:42 Dictated By: Clive Posadas Transcribed By: Transcribed On: 08/08/2025 2:56 PM Electronically signed by: Clive Posadas 08/08/2025 Thank you for referring HAILEY ALVAREZ to [facility]. Legally authenticated by AVI Colin 2025-08-08 14:56:42 Generic [place] Provider IMG CT PROCEDURES Fi nal Result [...] documented as of this encounter Care Teams Blood Bank Laboratory Professional Relationship Specialty Start Date End Date Rodolfo Rhoades MD [address] [place] [phone] PCP - General Family Medicine 02/02/25 So Caicedo LPN VALUE[employer]ED [place] [address] TCM Nurse 09/07/25 documented as of this encounter
--- OUTSIDE RECORDS SUMMARY | 2025-09-22 11:28 | XMS_ITS | Encounter Summary ---
Author Organization Healthcare Address [address] [id number] Care Team Providers Care Leadership Development Manager Name Role Phone Rodolfo Rhoades MD Primary Care Provider [phone] So Caicedo LPN Unavailable Unavailable Encounter Details Date Type Department Care Team (Late st Contact Info) Description 08/07/2025 Outside Procedure External Location [address] [place] [phone] Provider, Swapnil [place] Social History Tobacco Use Types Packs/Day Years [...] in a halfway (including now)? No 08/09/2025 [facility] Utilities Answer Date Recorded In [...] Month) No 08/10/2025 8:00 PM EDT Andres Schulz 6. Suicidal Behavior (Lifetime) No 8:00 PM EDT Andres Schulz documented as of this encounter Plan of Treatment Upcoming Encounters Date Type Department Care Team (Late st Contact Info) Description 10/12/2025 11:20 AM EST Office Visit [facility] [address] [place] [address] Rodolfo Rhoades MD [address] [place] [address] documented as of this encounter Procedures Procedure Name Priority Date/Time Associated Diagnosis Comments ECHO, ADULT TRANSTHORACIC LIMITED W/ CONTRAST 08/07/2025 6:38 AM EDT documented in this encounter Results * Echo, Adult Transthoracic Limited w/ Contrast (08/07/2025 6:38 AM EDT) Anatomical Region Laterality Modality Ultrasound 08/07/2025 6:38 AM EDT Narrative 08/07/2025 12:51 PM EDT [address] [address] Name: VERONICA ALVAREZ Exam Date: 08/07/2025 : 1975 Age 49 years Gender: F Physician: JOSSE MONTENEGRO Facility: [facility] Facility HSV: Inpatient Exam: ECHO W OR [...] stenosis with a valve area of 1.34 director veterinary (Peak grad=31mmHg, Mean grad=16mmHg, LVOT grady=2.00cm, LVOT TVI=14.2cm, Ao TVI=33.3cm). The dimensionless index is 0.43. AV peak twgazvlr=347qh/sec. There is a Mechanical AV prosthesis. Tricuspid [...] Thank you for referring [facility] Legally authenticated by PATTIE Yun 2025-08-07 12:49:32 Procedure Note Provider, Generic Velma - 08/07/2025 [place] [address] Name: VERONICA ALVAREZ Exam Date: 08/07/2025 : 1975 Age 49 years Gender: F Physician: JOSSE MONTENEGRO Facility: [facility] Facility HSV: Inpatient Exam: ECHO W OR [...] stenosis with a valve area of 1.34 director veterinary (Peak grad=31mmHg, Mean grad=16mmHg, LVOT grady=2.00cm, LVOT TVI=14.2cm, Ao TVI=33.3cm). The dimensionless index is 0.43. AV peak rnpomnqa=914fw/sec. There is a Mechanical AV prosthesis. Tricuspid [...] Thank you for referring VERONICA [facility]AREZ to [facility] Legally authenticated by PATTIE Yun 2025-08-07 12:49:32 us Generic Velma Provider CV ECHO PROCEDURES F inal Result [...] documented as of this encounter Care Teams Leadership Development Manager Relationship Specialty Start Date End Date Rodolfo Rhoades MD [address] [place] [address] PCP - General Family Medicine 02/02/25 So Caicedo LPN VALUE[employer] [place] [address] TCM Nurse 09/07/25 documented as of this encounter
--- OUTSIDE RECORDS SUMMARY | 2025-09-22 11:28 | XMS_ITS | Encounter Summary ---
Author Organization Healthcare Address [address] [place] [address] Care Team Providers Care Sticker On Name Role Phone Rodolfo Rhoades MD Primary Care Provider [phone] Encounter Details Date Type Department Care Team [...] living in a intermediate (including now)? No 08/09/2025 [facility] Utilities Answer Date Recorded In [...] Description 10/12/2025 11:20 AM EST Office Visit [facility] [address] [place] [address] Rodolfo Rhoades MD [place] [address] documented as of this encounter Visit [...] documented as of this encounter Care Teams Sticker On Relationship Specialty Start Date End Date Rodolfo Rhoades MD [address] [place] [address] PCP - General Family Medicine 02/02/25 documented as of this encounter
--- OUTSIDE RECORDS SUMMARY | 2025-09-22 11:28 | XMS_ITS | Encounter Summary ---
Author Organization [facility] Address [facility] [place] [address] Care Team Providers Care Metal Riveter Name Role Phone Georgette Moore APRN Primary Care Provider [phone] Veronica Goodwin LPN Unavailable Unavailable Margaret Ro Unavailable Unavailable Rodolfo Rhoades MD Primary Care Provider [phone] Marianne Bolaños Unavailable Unavailable Ariana Bagley Unavailable Unavailable So Caicedo LPN Unavailable Unavailable Reason for Visit * Reason Comments Med Refill Encounter Details Date Type Department Care Team (Late st Contact Info) Description 12/21/2021 Refill [facility] [address] [place] [address] Georgette Moore APRN [address] [place] [address] Chronic fatigue Social History Tobacco [...] Description 10/12/2025 11:20 AM EST Office Visit [facility] [address] [place] [address] Rodolfo Rhoades MD [address] [place] [address] documented as of this encounter [...] documented as of this encounter Care Teams Metal Riveter Relationship Specialty Start Date End Date Georgette Moore APRN [address] [place] [address] PCP - General 04/12/21 02/01/25 Rodolfo Rhoades MD [address] [place] [address] PCP - General Family Medicine 02/02/25 Veronica Goodwin LPN VALUE-BASED [place] [address] TCM Nurse 07/25/24 08/25/24 Margaret Ro Community Health Worker 07/27/24 4 Wages, Marianne Delgado Clinical Concert Promoter 07/14/25 07/28/25 Ariana Bagley Community Health Worker 07/14/25 07/14/25 So Caicedo LPN VALUE-BASED [place] [address] TCM Nurse 09/07/25 documented as of this encounter
--- OUTSIDE RECORDS SUMMARY | 2025-09-22 11:28 | XMS_ITS | Encounter Summary ---
Author Organization Healthcare Address [address] [id number] Care Team Providers Care Boat Assembler Name Role Phone Rodolfo Rhoades MD Primary Care Provider [phone] Encounter Details Date Type Department Care Team (Late st Contact Info) Description 08/08/2025 Orders Only External Location [address] [place] [address] [place] [address] [place] [address] Social History Tobacco Use Types Packs/Day Years [...] living in a fdc (including now)? No 08/09/2025 [facility] Utilities Answer Date Recorded In the past 12 months has e [employer], gas, oil, or water [employer] threatened to shut off services in your [...] Description 10/12/2025 11:20 AM EST Office Visit [facility] [address] [place] [address] Rodolfo Rhoades MD [address] [place] [address] documented as of this encounter Procedures Procedure Name Priority Date/Time Associated Diagnosis Comments CBC W/O DIFFERENTIAL Routine 08/08/2025 9:[address] OUTSIDE IMAGES 08/08/2025 1:2 8 PM EDT documented in this encounter Results * (ABNORMAL) CBC W/O Differential (08/08/2025 9:00 PM EDT) External WBC 9.6 4.0 - 10.5 K/ul [facility] External Red Blood Cell (RBC) 3.9(L) 4.2 - 6.4 M/mm3 [facility] External Hemoglobin 11.6(L) 12.5 - 16.0 gm/dl [facility] External Hematocrit 34.1(L) 37.0 - 47.0 % [facility] External MCV 87.9 78 - 100 fl [facility] External MCH 29.9 27 - 31 pg [facility] External MCHC 34.0 32 - 36 g/dl [facility] External RDW 12.5 11.5 - 14.0 % [facility] External Platelets 423 150 - 450 K/ul [facility] External MPV 9.9(H) 6 - 9.5 [facility] External Manual Differential NO [facility] 08/08/2025 9:00 PM EDT 08/08/2025 9:05 PM EDT us Generic [place] Provider LAB BLOOD ORDERABLES Final Result [facility] * CT OUTSIDE IMAGES (08/08/2025 1:28 PM EDT) Anatomical Region Laterality Modality Computed Tomogra phy 08/08/2025 1:28 PM EDT us Louise ALDANA IMG CT PROCEDURES Edited Resu lt - Final documented in this encounter Visit Diagnoses Not on filedocumented in this encounter Additional Health Concerns Infection Onset Date Last Indicated Resolved Time COVID-19 Rule-Out 08/09/2025 08/09/2025 08/10/2025 3:03 PM EDT Respiratory Rule-Out 08/09/2025 08/09/2025 025 5:51 PM EDT Assessment Noted Time PHQ-9 Depression Total Score: 025 10:59 AM EDT A fall risk assessment has been complete d for the patient 03/19/2023 1:57 PM EDT A Body Mass Index follow-up plan has been documented for the patient 09/06/2025 3:19 PM EDT documented as of this encounter Care Teams Boat Assembler Relationship Specialty Start Date End Date Rodolfo Rhoades MD [address] [place], [place] [address], [place] [address] PCP - General Family Medicine 02/02/25 documented as of this encounter
--- OUTSIDE RECORDS SUMMARY | 2025-09-22 11:28 | XMS_ITS | Encounter Summary ---
Author Organization [facility] Address [address] [id number] Care Team Providers Care Painter Helper Spray Name Role Phone Georgette Moore APRN Primary Care Provider [phone] Veronica Goodwin LPN Unavailable Unavailable Margaret Ro Unavailable Unavailable Rodolfo Rhoades MD Primary Care Provider [phone] Marianne Bolaños Unavailable Unavailable Ariana Bagley Unavailable Unavailable So Caicedo WASHER MACHINE Unavailable Unavailable Encounter Details Date Type Department Care Team (Late st Contact Info) Description 02/06/2022 Outside Procedure External Location [address] [place] [phone] Provider, Swapnil [place] Social History Tobacco Use Types Packs/Day Years [...] Description 10/12/2025 11:20 AM EST [facility] [address] [place] [address] Rodolfo Rhoades MD [address] [place] [address] documented as of this encounter Procedures Procedure Name Priority Date/Time Associated Diagnosis Comments XR THORACIC SPINE 3 VIEWS 02/06/2022 2:09 PM EST documented in this encounter Results * XR Thoracic Spine 3 Views (02/06/2022 2:09 PM EST) Anatomical Region Laterality Modality Spine, T-spine Radiographic Tierra ging 02/06/2022 2:09 PM EST Narrative 02/06/2022 3:19 [place] [address] Name: VERONICA ALVAREZ Exam Date: 02/06/2022 : [...] Thank you for referring VERONICA ALVAREZ to [facility]. Legally authenticated by GADIEL DELEON 2022-02-06 15:08:18 Procedure Note Provider, [facility] - 02/06/2022 [place] [address] Name: VERONICA ALVAREZ Exam Date: 02/06/2022 : [...] Thank you for referring VERONICA ALVAREZ to [facility]. Legally authenticated by GADIEL DELEON 2022-02-06 15:08:18 Generic [place] Provider IMG XR PROCEDURES Fi nal Result [...] documented as of this encounter Care Teams Painter Helper Spray Relationship Specialty Start Date End Date Georgette Moore APRN [address] [place] [address] PCP - General 04/12/21 02/01/25 Rodolfo Rhaodes MD [address] [place] [address] PCP - General Family Medicine 02/02/25 Veronica Goodwin LPN VALUE-BASED [place] [address] TCM Nurse 07/25/24 08/25/24 Margaret Ro Community Health Worker 07/27/24 4 Marianne Bolaños Clinical Pack Mule Worker 07/14/25 07/28/25 Ariana Bagley Community Health Worker 07/14/25 07/14/25 So Caicedo LPN VALUE-BASED [place] [address] TCM Nurse 09/07/25 documented as of this encounter
--- OUTSIDE RECORDS SUMMARY | 2025-09-22 11:28 | XMS_ITS | Encounter Summary ---
Author Organization Healthcare Address [address] [place] [address] Care Team Providers Care Air Value Tester Name Role Phone Rodolfo Rhoades MD Primary Care Provider [phone] Encounter Details Date Type Department Care Team [...] in a long-term (including now)? No 08/09/2025 [facility] Utilities Answer Date Recorded In the past [...] Description 10/12/2025 11:20 AM EST Office Visit [facility] [address] [place] [address] Rodolfo Rhoades MD [address] [place] [address] documented as of this encounter Visit [...] as of this encounter Care Teams Air Value Tester Relationship Specialty Start Date End Date Rodolfo Rhoades MD [address] [place] [address] PCP - General Family Medicine 02/02/25 documented as of this encounter
--- OUTSIDE RECORDS SUMMARY | 2025-09-22 11:28 | XMS_ITS | Encounter Summary ---
Author Organization Healthcare Address [address] [place] [address] Care Team Providers Care Associate Professor Of History Name Role Phone Rodolfo Rhoades MD Primary Care Provider [phone] Encounter Details Date Type Department Care Team [...] time in the past 12 m [facility], were you homeless or living in a [place] facility (including now)? No 08/09/2025 [facility] Utilities Answer Date Recorded In the [...] Description 10/12/2025 11:20 AM EST Office Visit [facility] [address] [place] [address] Rodolfo Rhoades MD [address] [place] [address] documented as of this [...] as of this encounter Care Teams Associate Professor Of History Relationship Specialty Start Date End Date Rodolfo Rhoades MD [address] [place] [address] PCP - General Family Medicine 02/02/25 documented as of this encounter
--- OUTSIDE RECORDS SUMMARY | 2025-09-22 11:28 | XMS_ITS | Encounter Summary ---
Author Organization Healthcare Address [address] [place] [address] Care Team Providers Care Acrobatic Dancer Name Role Phone Rodolfo Rhoades MD Primary Care Provider [phone] Encounter Details Date Type Department Care Team [...] in a prison (including now)? No 08/09/2025 [facility] Utilities Answer Date Recorded In [...] 11:20 AM EST Office Visit [facility] [address] [place] [address] Rodolfo Rhoades MD [address] [place] [address] documented as of this encounter [...] documented as of this encounter Care Teams Acrobatic Dancer Relationship Specialty Start Date End Date Rodolfo Rhoades MD [address] [place] [address] PCP - General Family Medicine 02/02/25 documented as of this encounter
--- OUTSIDE RECORDS SUMMARY | 2025-09-22 11:28 | XMS_ITS | Encounter Summary ---
Author Organization Healthcare Address [address] [place] [address] Care Team Providers Care Buckle Wire Inserter Name Role Phone Rodolfo Rhoades MD Primary Care Provider [phone] Encounter Details Date Type Department Care Team [...] any time in the past 12 m [facility], were you homeless or living in a care home (including now)? No 08/09/2025 [facility] Utilities Answer Date Recorded In [...] Description 10/12/2025 11:20 AM EST Office Visit [facility] [address] [place] [address] Rodolfo Rhoades MD [address] [place] [address] documented as of this encounter [...] documented as of this encounter Care Teams Buckle Wire Inserter Relationship Specialty Start Date End Date Rodolfo Rhoades MD [address] [place] [address] PCP - General Family Medicine 02/02/25 documented as of this encounter
--- OUTSIDE RECORDS SUMMARY | 2025-09-22 11:29 | XMS_ITS | Encounter Summary ---
Author Organization Healthcare Address [facility] [place] [address] Care Team Providers Care Echocardiograph Technician Name Role Phone Rodolfo Rhoades MD Primary Care Provider [phone] So Caicedo LPN Unavailable Unavailable Encounter Details Date Type Department Care Team (Late st Contact Info) Description 09/08/2025 Telephone [facility] [address] [place] [address] Rodolfo Rhoades MD [address] [place] [address] Social History Tobacco Use Types [...] in the past 12 m [facility], were you homeless or living in a long-term (including now)? No 08/09/[address] [facility] Utilities Answer Date Recorded In the [...] beoverbooked with him instead. Best contact number: [phone] (mobile) Optimal time of day to reach [...] Description 10/12/2025 11:20 AM EST Office Visit [facility] [address] [place] [address] Rodolfo Rhoades MD [address] [place] [address] documented as of this encounter [...] documented as of this encounter Care Teams Echocardiograph Technician Relationship Specialty Start Date End Date Rodolfo Rhoades MD [address] [place] [address] PCP - General Family Medicine 02/02/25 So Caicedo LPN VALUE-BASED [place] [address] TCM Nurse 09/07/25 documented as of this encounter
--- OUTSIDE RECORDS SUMMARY | 2025-09-22 11:29 | XMS_ITS | Encounter Summary ---
Author Organization [facility] Address [facility] [place] [address] Care Team Providers Care Kersey Department Supervisor Name Role Phone Rodolfo Rhoades MD Primary Care Provider [phone] Marianne Bolaños Unavailable Unavailable Ariana Bagley Unavailable Unavailable Reason for Visit * Reason Onset Date Comments HCN Clinical Concern/Question 07/06/2025 Encounter Details Date Type Department Care Team (Late st Contact Info) Description 07/05/2025 Telephone [facility] & [address] [address] Rodolfo Rhoades MD [address] [place] [address] HCN Clinical Concern/Question Social History Tobacco [...] living in a assisted (including now)? No 07/14/2025 Safety and Environment [...] th e electric, gas, oil, or water [employer] threatened to shut off services in your [...] things Not at all 07/14/2025 10:59 AM ELEKT Mindy Gudino Feeling down, depressed, or hopeless [...] clinic, returning Mindy's call. Best contact number: [phone] (home) Optimal time of day to reach [...] will receive notification of the communication/outcome via CollabFindert. * Telephone Encounter - Mindy Gudino - [...] transportation. Pls advise. Thanks. Best contact number: [phone] (home) Optimal time of day to reach caller: ANYTIME Additional comments/information from caller: None Note: Please do not reply to this message. Follow-up communication and further actions as a result of this message need to be communicated with the patient directly, if the patient is not active onMyChart. If the patient is active on MyChart, they will receive notification of the communication/outcome via CourseWeaverhart. documented in this encounter Plan of Treatment Upcoming Encounters Date Type Department Care Team (Late st Contact Info) Description 10/12/2025 11:20 AM EST Office Visit [facility] [address] [place] [address] Rodolfo Rhoades MD [address] [place] [address] documented as of this encounter [...] documented as of this encounter Care Teams Kersey Department Supervisor Relationship Specialty Start Date End Date Rodolfo Rhoades MD [address] [place] [address] PCP - General Family Medicine 02/02/25 Marianne Bolaños Clinical Adjunct Instructor Of Women'S Studies 07/14/2507/28 Ariana Bagley Community Health Worker 07/14/25 07/14/25 documented as of this encounter
--- OUTSIDE RECORDS SUMMARY | 2025-09-22 11:29 | XMS_ITS | Encounter Summary ---
Author Organization Healthcare Address [address] [place] [address] Care Team Providers Care Hedge Fund Principal Name Role Phone Rodolfo Rhoades MD Primary Care Provider [phone] Marianne Bolaños Unavailable Unavailable Ariana Bagley Unavailable Unavailable So Caicedo LPN Unavailable Unavailable Reason for Visit * Reason Comments Med Refill Encounter Details Date Type Department Care Team (Late st Contact Info) Description 07/07/2025 Refill [facility] [address] [place] [address] Rodolfo Rhoades MD [address] [place] [address] Social History Tobacco Use Types [...] any time in the past 12 m [facility], were you homeless or living in [...] Office Visit [facility] [address] [place] [address] Rodolfo Rhoades MD [address] [place] [id number] documented as of this encounter Visit Diagnoses [...] documented as of this encounter Care Teams Hedge Fund Principal Relationship Specialty Start Date End Date Rodolfo Rhoades MD [address] [place] [address] PCP - General Family Medicine 02/02/25 Marianne Bolaños Clinical Milled Rice Broker 07/14/25 07/28/25 Ariana Bagley Community Health Worker 07/14/25 07/14/25 So Caicedo, ANTOINE [employer] [address] TCM Nurse 09/07/25 documented as of this encounter
--- OUTSIDE RECORDS SUMMARY | 2025-09-22 11:29 | XMS_ITS | Encounter Summary ---
Author Organization Healthcare Address [address] [place] [address] Care Team Providers Care Copier And Printer Field Technician Name Role Phone Rodolfo Rhoades MD Primary Care Provider [phone] So Caicedo LPN Unavailable Unavailable Reason for Visit * Reason Comments TCM Encounter Details Date Type Department Care Team (Late st Contact Info) Description 09/08/2025 Patient Outreach [facility] [address], [address] [place] [phone] So Caicedo LPN [employer]ED [place] [address] TCM Social History Tobacco Use Types Packs/Day [...] living in a correction (including now)? No 08/09/2025 [facility] Utilities Answer Date Recorded In the past 12 [address] [employer] Resistant Bedding, gas, oil, or water [employer] threatened to shut off services in your [...] Date: 08/08/2025 Discharge Date: 09/06/2025 [facility] Discharge Diagnosis: Rhabdomyolysis 09/08/2025 TCM call # [...] Description 10/12/2025 11:20 AM EST Office Visit [facility] [address] [place] [address] Rodolfo Rhoades MD [address] [place] [address] documented as of this encounter [...] documented as of this encounter Care Teams Copier And Printer Field Technician Relationship Specialty Start Date End Date Rodolfo Rhoades MD [address] [place] [address] PCP - General Family Medicine 02/02/25 So Caicedo LPN [employer]ED [place] [address] TCM Nurse 09/07/25 documented as of this encounter
--- OUTSIDE RECORDS SUMMARY | 2025-09-22 11:29 | XMS_ITS | Clinical Summary ---
Author Organization Healthcare Address [address] [id number] Care Team Providers Care Heel Coverer Machine Operator Name Role Phone Rodolfo Rhoades MD Primary Care Provider [phone] So Caicedo EIGHT ARM OPERATOR Unavailable Unavailable Allergies Active Allergy Reactions Criticality [...] cap. 16 g 12 08/17/20 24 Active Additional Information Patient taking differently:1 spray Each NostrilAs needed, Shake gently. Before first use, prime pump. After use, clean tip and replace cap., Reported on 09/15/2025 metoprolol succinate XL (Toprol-XL) 25 MG 24 [...] 30 MINUTES 4 tablet 07/10/20 25 Active cholecalciferol (Vitamin D-3) 50 MCG (2000 UT) capsule Take 1 capsule by mouth daily. Active warfarin (Coumadin) 2.5 MG tablet Take 1 tablet by mouth daily. 30 tablet 09/06/20 25 Active acetaminophen (Tylenol) 500 MG tablet Take 2 tablets by mouth 3 times a day. 200 tablet 09/06/20 25 Active hydrOXYzine pamoate (Vistaril) [...] by MD. 30 patch 09/06/20 25 Active nystatin (Mycostatin) 166385 UNIT/GM powder Apply to groin twice a day. Keep area dry. 60 g 09/06/20 25 Active Additional Information Patient not taking.Reported on 09/15/2025 naloxone (Narcan) 4 mg/0.1 mL nasal spray 1. Give 1 spray in nostril for no/slow breathing or cannot wake after opioid use 2. Call 911 3. Repeat in other nostril if symptoms continue Call 911. Give 4 mg (1 spray) into one nostril. Repeat every 2-3 minutes as needed, alternating nostrils, until medical assistance arrives. 1 each 11 09/06/20 25 2025 Active gabapentin (Neurontin) 800 MG tablet Take 1 tablet by mouth 4 times a day. 120 tablet 1 10/06/20 25 Active tiotropium-olod aterol (Stiolto Respimat) 2.5-2.5 MCG/ACT aerosol solution inhaler Inhale 2 Inhalations daily. 4 g 3 09/15/20 25 Active losartan (Cozaar) 25 MG tablet Take 1 tablet by mouth daily. 30 tablet 2 09/15/20 Active DULoxetine (Cymbalta) [address] capsule Take 1 capsule by mouth daily. Do not crush or chew. 30 capsule 1 09/15/20 Active warfarin (Coumadin) 5 MG tablet Take [...] 25 2024 Discontinued(S top Taking at Discharge) Stiolto Respimat 2.5-2.5 MCG/ACT aerosol solution inhaler INHALE 2 PUFFS BY MOUTH ONCE A DAY 4 g 07/10/20 25 2024 Discontinued(R eorder) furosemide (Lasix) 40 MG tablet Take 1 [...] 1 each 11 08/21/20 25 2024 Discontinued gabapentin (Neurontin) 800 MG tablet Take 1 tablet by mouth 4 times a day. 120 tablet 09/06/20 25 2024 Discontinued(R eorder) losartan (Cozaar) 25 MG tablet Take 1 tablet by mouth daily. 30 tablet 09/06/20 25 2024 Discontinued(R eorder) buprenorphine-n aloxone (Suboxone) 8-[address] 2 tablets under the tongue daily for 12 days. 24 tablet 10/082024 Active Problems Problem Noted Date Diagnosed Date [...] is understanding of the demands that Ms. eWiss will need. Assessment & Plan (09/04/2025 5:20 [...] PRN and hydroxyzine q6hr PRN. PLAN: - Expedition Supervisor services following - Continue home Klonopin TID PRN - Continue hydroxyzine 25 mg q6h PRN Assessment & Plan (08/28/2025 7:38 AM EDT): - Patient takes Klonopin TID PRN and hydroxyzine q6hr PRN. PLAN: - Expedition Supervisor services following - Continue home Klonopin TID PRN - Continue hydroxyzine 25 mg q6h PRN Assessment & Plan (08/27/2025 6:17 PM EDT): - Patient takes Klonopin TID PRN and hydroxyzine q6hr PRN. PLAN: - Expedition Supervisor services following - Continue home Klonopin TID PRN - Continue hydroxyzine 25 mg q6h PRN Assessment & Plan (08/26/2025 7:20 AM EDT): - Patient takes Klonopin TID for anxiety. - Patient denies consideration of cymbalta. Has previously denied discussion regarding SSRIs. PLAN - Expedition Supervisor services following - Continue home Klonopin TID PRN - Continue hydroxyzine 25 mg q6h PRN Assessment & Plan (08/25/2025 1:17 PM EDT): - Patient takes Klonopin TID for anxiety. - Patient denies consideration of cymbalta. Has previously denied discussion regarding SSRIs. PLAN - Expedition Supervisor services following - Continue home Klonopin TID PRN - Continue hydroxyzine 25 mg q6h PRN Assessment & Plan (08/24/2025 11:26 AM EDT): - Patient takes Klonopin TID for anxiety. - Patient denies consideration of cymbalta. Has previously denied discussion regarding SSRIs. - Expedition Supervisor services saw Ms. Weiss yesterday and she states that she was extremely thankful for their visit. PLAN - Expedition Supervisor services following - Continue home Klonopin TID PRN - Continue hydroxyzine 25 mg q6h PRN Assessment & Plan (08/23/2025 12:08 PM EDT): - Patient takes Klonopin TID for anxiety. - Patient denies consideration of cymbalta. She denies wanting to discuss SSRI options today. PLAN - Consulted rust proofer services for support - Continue home Klonopin [...] Plan (08/25/2025 1:17 PM EDT): PLAN - TRIAGE ASSISTANT reevaluated today. With patient agreed to go to full diet. Patient still requires a 1:1 assist with eating due to difficulty with hand strength. Assessment & Plan (08/24/2025 11:26 AM EDT): - Dobhoff tube was removed yesterday since she has been tolerating her diet appropriately - Patient has been continuing to eat soft and bite sized diet with 1:1 assistance PLAN - TRIAGE ASSISTANT following, appreciate recommendations Assessment & Plan (08/23/2025 12:08 PM EDT): - Repeat MBS on 08/22 demonstrated intermittent penetration and aspiration of thin liquids. Ordered soft and bite sized diet on 08/22 with 1:1 feeding assistance. - Tube feeds held PM 08/01. Dobhoff tube is still in place. - Patient has been tolerating soft and bite sized diet well. PLAN - TRIAGE ASSISTANT following, appreciate recommendations - Planning to remove dobhoff tube later in the day to make sure that breakfast and lunch were tolerated well. Assessment & Plan (08/22/2025 8:39 AM EDT): - MBS on 08/15 with aspiration of thin, nectar, and honey barium consistency - Dobhoff tube in place PLAN - TRIAGE ASSISTANT following, appreciate recommendations - Continue isosource tube [...] - WBC stable at 10.83 from 11.70 (9.) and absolute neutrophils 8.17 from 9.41 (08/23). [...] 8.93 (08/22). - Blood culture on 08/17, (1) was [...] 8.93 (08/22). - Blood culture on 08/17, (1/) was [...] Recommends outpatient EMG - Follow-up requested with [facility] Neurology Assessment & Plan (08/30/2025 12:05 [...] organization. Date Type Department Care Team Description 09/20/2025 Results Follow-Up [facility] [address] [facility] [place] [address] Rodolfo Rhoades MD 09/19/2025 Telephone [facility] [address] [place] [address] Rodolfo Rhoades MD 09/15/2025 1:00 PM EDT Office Visit [facility] [address] [place] [address] Rodolfo Rhoades MD Sequela, post-stroke (Primary Dx); Non-traumatic rhabdomyolysis; Mixed hyperlipidemia; Vitamin D deficiency; Chronic atrial fibrillation (CMS/HCC); Essential hypertension; Anemia, unspecified type 09/15/2025 Travel 09/08/2025 Telephone [facility] [address] [place] [address] Rodolfo Rhoades MD 09/08/2025 Patient Outreach [facility] [address] [place] [address], [address] [place] [address] So Caicedo LPN [facility] 09/07/2025 Results Follow-Up [facility] S Inpatient Pharmacy [address] [place] [place] [address] Annemarie Grover, PharmD 09/07/2025 Patient Outreach [facility] [address], [address] [place] [address] So Caicedo LPN [facility] 08/30/2025 Travel 08/22/2025 Travel 08/21/2025 2:57 PM EDT Anesthesia Event [facility] S Operating Room [address] [place] [address] Sosa Cadet MD Cauthen, Benton R, DO 08/21/2025 Travel 08/19/2025 Travel 08/17/2025 Travel 08/15/2025 Travel 08/11/2025 Travel 08/09/2025 Travel 08/08/2025 Orders Only External Location [address] [facility] [place] [address] Lobo Lowery PA 08/08/2025 Orders Only External Location [address] [facility] [place] [address] Lobo Lowery PA 08/08/2025 Outside Procedure External Location [address] [place] [address] Provider, Generic [place] 08/08/2025 Outside Procedure External Location [address] [place] [address] Provider, Generic [place] 08/08/2025 Orders Only External Location [address] [place] [address] Provider, Generic [place] 08/07/2025 Outside Procedure External Location [address] [place] [address] Provider, Generic [place] 08/07/2025 Orders Only External Location [address] [place] [address] Provider, Generic [place] 08/06/2025 Orders Only External Location [address] [place] [address] Provider, External 08/06/2025 Orders Only External Location [address] [place] [address] Lobo Lowery PA 08/06/2025 Outside Procedure External Location [address] [place] [address] Provider, Generic [place] 08/06/2025 Outside Procedure External Location [address] [place] [address] Provider, Generic [place] 08/06/2025 Orders Only External Location [address] [place] [address] Provider, Generic [place] 07/28/2025 Patient Outreach [facility] [address] [facility], [address] [place] [address] Marianne Bolaños [facility]. (Records) 07/28/2025 Patient Outreach [facility] [address] [facility], [address] [place] [address] Marianne Bolaños [facility]. (Records) 07/14/2025 10:40 AM EDT Office Visit [facility] [address] [place] [address] Rodolfo Rhoades MD Chronic fatigue (Primary Dx); Essential hypertension; Pitting edema; Heart failure with preserved ejection fraction, unspecified HF chronicity (CMS/HCC) 07/14/2025 Results Follow-Up [facility] [address] [place] [address] Rodolfo Rhoades MD 07/14/2025 Telephone [facility] [address] [place] [address] Rodolfo Rhoades MD HCN Paperwork/Documenta tion Request 07/14/2025 Patient Outreach [address], [address] [place] [address] [facility] 07/14/2025 Patient Outreach [address], [address] [place] [address] Marianne Bolaños [facility]. (Records) 07/14/2025 Travel 07/09/2025 Refill [facility] [address] [place] [address] Rodolfo Rhoades MD 07/07/2025 Refill [facility] [address] [place] [address] Rodolfo Rhoades MD 07/07/2025 Refill [facility] [address] [place] [address] Jocelyn Velez APRN, DNP Low vitamin D level 07/05/2025 Telephone [facility] [address] [place] [address] Rodolfo Rhoades MD HCN Clinical Concern/Question from Last 3 Months Immunizations Immunization Administration Dates Next Due Influenza, injectable, quadrivalent 12/17/2016 Influenza, injectable, quadr ivalent, preservative free 09/20/2020 Influenza, seasonal, injecta ble, preservative free 12/17/2016 [employer] COVID-19 Vac cine (Purple Cap) 12+ 11/27/2021,04/05/2021,03/08/2021 [...] living in a residential (including now)? No 08/09/2025 [facility] [...] F) 09/15/2025 1:12 PM EDT Respiratory Rate 18 09/06/2025 4:04 PM EDT Oxygen Saturation 99% 09/15/2025 1:12 PM EDT Inhaled Oxygen Concentration - - Weight 63.3 kg (139 lb 8.8 oz) 09/06/2025 10:00 AM EDT Height 162.6 cm (5' 4.02 ) 09/06/2025 10:00 AM E DT Body Mass Index 23.94 09/06/2025 10:00 AM EDT Plan of Treatment Upcoming Encounters Date Type Department Care Team (Late st Contact Info) Description 10/12/2025 11:20 AM EST Office Visit [facility] [address] [place] [address] Rodolfo Rhoades MD [address] [place] [address] Health Maintenance Due Date Last [...] 2022 FIT 2022 FOBT 2022 Sigmoidoscopy 2022 [id number] Vaccine (4 - 2024-26 season) 2025 11/27/2021, 04/05/2021, 03/08/2021 UKY-Influenza Vaccine [...] Name Priority Date/Time Associated Diagnosis Comments VITAMIN B12, SERUM Routine 09/15/2025 2:12 PM EDT Anemia, unspecified type IRON, PLASMA Routine 09/15/2025 2:12 PM EDT Anemia, unspecified type FERRITIN, SERUM Routine 09/15/2025 2:12 PM EDT Anemia, unspecified type CREATINE KINASE, TOTAL, PLASMA Routine 09/15/2025 2:12 PM EDT Non-traumatic rhabdomyolysis CBC WITH AUTO DIFFERENTIAL Routine 09/15/2025 2:12 PM EDT Chronic atrial fibrillation (CMS/HCC) Essential hypertension Anemia, unspecified type COMPREHENSIVE METABOLIC PANEL, PLASMA Routine 09/15/2025 2:12 PM EDT Mixed hyperlipidemia Essential hypertension TYPE AND SCREEN Pending Discharge 09/06/2025 10:04 [...] PATTERNSO) (SO) Routine 08/26/2025 3:26 AM EDT SIGNAL RECOGNITION PARTICLE (SRP) ANTIBODY (SO) Routine 08/26/2025 3:26 AM EDT SMOOTH [...] UNSOLICITED RESULTS Routine 08/18/2025 12:13 PM EDT [facility], E/M 30-74 MINUTES Routine 08/18/2025 [...] AUTO DIFFERENTIAL Routine 08/18/2025 12:26 AM EDT [facility], E/M 30-74 MINUTES Routine 08/17/2025 [...] SERUM (SO) Routine 08/09/2025 11:46 AM EDT [id number] (SO) Routine 08/09/2025 11:46 AM EDT COMPREHENSIVE [...] AUTO DIFFERENTIAL STAT 08/09/2025 12:36 AM EDT [facility], ADDL 30 MIN Routine 08/08/2025 11:50 PM EDT [facility], E/M 30-74 MINUTES Routine 08/08/2025 [...] W/ CONTRAST 08/07/2025 6:38 AM EDT [facility] ([facility]) Routine 08/07/2025 5:05 AM EDT CK [...] PLASMA Routine 08/06/2025 1:22 PM EDT [facility] ([facility]) Routine 08/06/2025 1:22 PM EDT PHOSPHORUS, PLASMA Routine 08/06/2025 1:22 PM EDT CK Routine 08/06/2025 1:22 PM EDT XR OUTSIDE IMAGES 08/06/2025 12:26 PM EDT XR ANKLE RIGHT 2 VIEWS 12:23 PM EDT APTT Routine 08/06/2025 10:00 AM EDT PROTHROMBIN TIME(PT) / INR Routine 08/06/2025 10:00 AM EDT [facility] ([facility]) Routine 08/06/2025 10:00 AM EDT XR [...] PLASMA Routine 08/06/2025 7:50 AM EDT [facility] ([facility]) Routine 08/06/2025 7:50 AM EDT LACTIC [...] Relevant to Health Maintenance Results * (ABNORMAL) Creatine Kinase, Total, Plasma (09/15/2025 2:12 PM EDT) Only the most recent of16 resultswithin the time period is included. Creatine Kinase, Plasma 215(H) 37 - 168 U/L 09/15/2025 7:36 PM EDT [facility] Blood Venous blood specimen / Unknown Venipuncture / Unknown 09/15/2025 2:12 PM EDT 09/15/2025 2:12 PM EDT us Rodolfo Rhoades MD LAB BLOOD ORDERABLES Final Res ult [facility] [address] [place] [address] * (ABNORMAL) CBC and Differential (09/15/2025 2:12 PM EDT) Only the most recent of32 resultswithin the time period is included. Pathologist [facility] WBC Count 8.31 3.70 - 10.30 10*3/uL LAB HEMATOLOGY METHOD 09/15/2025 7:19 PM EDT [facility] RBC Count 3.45(L) 3.90 - 5.20 10*6/uL LAB HEMATOLOGY METHOD 09/15/2025 7:19 PM EDT [facility] HGB 10.4(L) 11.2 - 15.7 g/dL LAB HEMATOLOGY METHOD 09/15/2025 7:19 PM EDT [facility] HCT 34.9 34.0 - 45.0 % LAB HEMATOLOGY METHOD 09/15/2025 7:19 PM EDT [facility] Platelet Count 331 155 - 369 10*3/uL LAB HEMATOLOGY METHOD 09/15/2025 7:19 PM EDT [facility] MCV 101(H) 79 - 98 fL LAB HEMATOLOGY METHOD 09/15/2025 7:19 PM EDT [facility] MCH 30.1 26.0 - 32.0 pg LAB HEMATOLOGY METHOD 09/15/2025 7:19 PM EDT [facility] MCHC 29.8(L) 30.7 - 35.5 g/dL LAB HEMATOLOGY METHOD 09/15/2025 7:19 PM EDT [facility] RDW 15.2(H) 11.5 - 14.5 % LAB HEMATOLOGY METHOD 09/15/2025 7:19 PM EDT [facility] MPV 9.7 8.8 - 12.5 fL LAB HEMATOLOGY METHOD 09/15/2025 7:19 PM EDT [facility] nRBC 0.0 <=0.0 per 100 WBCs LAB HEMATOLOGY METHOD 09/15/2025 7:19 PM EDT [facility] Differential Type Automated LAB HEMATOLOGY METHOD 09/15/2025 7:19 PM EDT [facility] Neutrophils % 62 % LAB HEMATOLOGY METHOD 09/15/2025 7:19 PM EDT [facility] Lymphocytes % 27 % LAB HEMATOLOGY METHOD 09/15/2025 7:19 PM EDT [facility] Monocytes % 8 % LAB HEMATOLOGY METHOD 09/15/2025 7:19 PM EDT [facility] Eosinophils % 3 % LAB HEMATOLOGY METHOD 09/15/2025 7:19 PM EDT [facility] Basophils % 0 % LAB HEMATOLOGY METHOD 09/15/2025 7:19 PM EDT [facility] Immature Granulocytes % 0 % LAB HEMATOLOGY METHOD 09/15/2025 7:19 PM EDT [facility] Neutrophils Absolute 5.13 1.60 - 6.10 10*3/uL LAB HEMATOLOGY METHOD 09/15/2025 7:19 PM EDT [facility] Lymphocytes Absolute 2.20 1.20 - 3.90 10*3/uL LAB HEMATOLOGY METHOD 09/15/2025 7:19 PM EDT [facility] Monocytes Absolute 0.70 0.30 - 0.90 10*3/uL LAB HEMATOLOGY METHOD 09/15/2025 7:19 PM EDT [facility] Eosinophils Absolute 0.22 0.00 - 0.50 10*3/uL LAB HEMATOLOGY METHOD 09/15/2025 7:19 PM EDT [facility] Basophils Absolute 0.03 0.00 - 0.10 10*3/uL LAB HEMATOLOGY METHOD 09/15/2025 7:19 PM EDT [facility] Immature Granulocytes Absolute 0.03 0.00 - 0.06 10*3/uL LAB HEMATOLOGY METHOD 09/15/2025 7:19 PM EDT [facility] Blood Venous blood specimen / Unknown Venipuncture / Unknown 09/15/2025 2:12 PM EDT 09/15/2025 2:12 PM EDT Narrative [facility] - 09/15/2025 7:19 PM EDT Therapeutic decision making should be based on absolute values, rather than percentages. Result Forrest Rhoades MD LAB BLOOD ORDERABLES Final Res ult Performing Organization Address City/[facility]/ZIP Co de Phone Number [facility] [address] [place] [address] * Iron, Plasma (09/15/2025 2:12 PM EDT) Only the most recent of2 resultswithin the time period is included. Iron, Plasma 40 30 - 160 ug/dL 09/15/2025 7:36 PM EDT [facility] Blood Venous blood specimen / Unknown Venipuncture / Unknown 09/15/2025 2:12 PM EDT 09/15/2025 2:12 PM EDT Result Forrest Rhoades MD LAB BLOOD ORDERABLES Final Res ult Performing Organization Address [facility] Co de Phone Number [facility] [address] [place] [address] * (ABNORMAL) Ferritin, Serum (09/15/2025 2:12 PM EDT) Only the most recent of3 resultswithin the time period is included. Ferritin, Serum 356(H) 13 - 150 ng/mL 09/15/2025 7:49 PM EDT [facility] Blood Venous blood specimen / Unknown Venipuncture / Unknown 09/15/2025 2:12 PM EDT 09/15/2025 2:12 PM EDT us Rodolfo Rhoades MD LAB BLOOD ORDERABLES Final Res ult Performing Organization Address City/[facility]/ZIP Co de Phone Number [facility] [address] [place] [address] * Vitamin B12, Serum (09/15/2025 2:12 PM EDT) Vitamin B12, Serum 531 210 - 1,033 pg/mL 09/15/2025 7:49 PM EDT [facility] Blood Venous blood specimen / Unknown Venipuncture / Unknown 09/15/2025 2:12 PM EDT 09/15/2025 2:12 PM EDT us Rodolfo Rhoades MD LAB BLOOD ORDERABLES Final Res ult [facility] [address] [place] [address] * (ABNORMAL) Comprehensive Metabolic Panel, Plasma (09/15/2025 2:12 PM EDT) Only the most recent of36 resultswithin the time period is included. Glucose, Plasma 73(L) 74 - 99 mg/dL 09/15/2025 7:36 PM EDT [facility] BUN, Plasma 6(L) 7 - 21 mg/dL 09/15/2025 7:36 PM EDT [facility] Creatinine, Plasma 0.56(L) 0.60 - 1.10 mg/dL 09/15/2025 7:36 PM EDT [facility] BUN/Creatinine Ratio 11 09/15/2025 7:36 PM EDT [facility] Sodium, Plasma 139 136 - 145 mmol/L 09/15/2025 7:36 PM EDT [facility] Potassium, Plasma 4.2 3.6 - 4.9 mmol/L 09/15/2025 7:36 PM EDT [facility] Chloride, Plasma 100 97 - 107 mmol/L 09/15/2025 7:36 PM EDT [facility] CO2, Plasma 31(H) 22 - 29 mmol/L 09/15/2025 7:36 PM EDT [facility] Anion Gap 8 6 - 16 mmol/L 09/15/2025 7:36 PM EDT [facility] Total Calcium, Plasma 10.1 8.9 - 10.2 mg/dL 09/15/2025 7:36 PM EDT [facility] Total Protein 7.1 6.3 - 7.9 g/dL 09/15/2025 7:36 PM EDT [facility] Albumin, Plasma 3.4(L) 3.5 - 5.2 g/dL 09/15/2025 7:36 PM EDT [facility] AST, Plasma 26 10 - 35 U/L 09/15/2025 7:36 PM EDT [facility] ALT, Plasma 16 10 - 35 U/L 09/15/2025 7:36 PM EDT [facility] Alkaline Phosphatase, Plasma 108(H) 35 - 104 U/L 09/15/2025 7:36 PM EDT [facility] Total Bilirubin, Plasma 0.4 0.2 - 1.1 mg/dL 09/15/2025 7:36 PM EDT [facility] eGFRcr 112.7 mL/min/1.7 3m*2 09/15/2025 7:36 PM EDT [facility] Comment:Reported eGFRcr in m L/min/1.73m2 is based the CKD-EPI 2020 equation that does not use a race coefficient. Blood Venous blood specimen / Unknown Venipuncture / Unknown 09/15/2025 2:12 PM EDT 09/15/2025 2:12 PM EDT Rodolfo Rhoades MD LAB BLOOD ORDERABLES Final Res ult [facility] [address] [place] [address] * Type and screen (09/06/2025 10:04 AM EDT) Only the most recent of3 resultswithin the time period is included. ABO/Rh O Negative 09/06/2025 10:30 AM EDT [facility] Antibody Screen Negative 09/06/2025 10:30 AM EDT [facility] Specimen Expiration 09/09/2025 23:59 09/06/2025 10:30 AM EDT [facility] Blood Venous blood specimen / Unknown Venipuncture / Unknown 09/06/2025 10:04 AM EDT 09/06/2025 10:30 AM EDT Tammy Caban MD LAB BLOOD BANK TEST ORDERABLES Final Result BLOOD BANK [address] [place] [address], * Prepare Leukocyte Reduced RBC: 1 Units, Leukocyte reduced (CMV reduced risk) (09/06/2025 9:11 AM EDT) Only the most recent of2 resultswithin the time period is included. Pathologist [facility] Product Code [id number] BLOO D BANK Dispense Status Transfused BLOOD BANK Blood Expiration Date [id number] BLOOD BANK Unit Number [id number] B LOOD BANK Product Blood Type 9500 BLOOD BANK Blood Type O- BLOOD BANK Crossmatch Compatible BLOOD BANK Other Tammy Caban MD BLOOD BANK PRODUCT ORDERABLES Final Result Performing Organization Address City/[facility] [place] [address], [place] * POCT glucose meter (09/06/2025 6:48 AM EDT) Only the most recent of62 resultswithin the time period is included. [facility] POCT Glucose 91 74 - 99 mg/dL 09/06/2025 7:23 AM EDT [facility] Comment:Accuracy of a glucos e [...] for testing. Comment 09/06/2025 7:23 AM EDT [facility] Lumber Carrier ID Rappa, Kamryn 09/06/2025 7:23 AM EDT [facility] Device ID [id number] 09/06/2025 7:23 AM EDT [facility] Specimen Type POC Capillary 09/06/2025 7:23 AM EDT [facility] Blood Capillary blood specimen / Unknown 09/06/2025 6:48 AM EDT 09/06/2025 7:23 AM EDT Tammy Caban MD LAB POINT OF CARE TE ST DOCKED DEVICE UNSOLICITED RESULTS Final Result Performing Organization Address [facility] de Phone Number [facility] [address] [place] [address] * (ABNORMAL) Protime-INR (09/06/2025 3:37 AM EDT) Only the most recent of35 resultswithin the time period is included. Prothrombin Time 30.2(H) 12.0 - 14.3 sec 09/06/2025 4:34 AM EDT [facility] INR 2.8(H) 0.9 - 1.1 09/06/2025 4:34 AM EDT [facility] Blood Venous blood specimen [...] INR 2.5 to 3.5 Prevention of recurrent [place] INR 2.5 to 3.5 us Emma Lehman MD LAB BLOOD ORDERABLES Final Resu lt Performing Organization Address [facility] de Phone Number [facility] [address] [place] [address] * Phosphorus, Plasma (09/06/2025 3:37 AM EDT) Only the most recent of32 resultswithin the time period is included. Phosphorus, Plasma 4.0 2.5 - 4.5 mg/dL 09/06/2025 4:51 AM EDT [facility] Blood Venous blood specimen / Unknown Venipuncture / Unknown 09/06/2025 3:37 AM EDT 09/06/2025 3:59 AM EDT us Emma Lehman MD LAB BLOOD ORDERABLES Final Resu lt Performing Organization Address City/[facility] de Phone Number [facility] [address] [place] [address] * Magnesium, Plasma (09/06/2025 3:37 AM EDT) Only the most recent of34 resultswithin the time period is included. Magnesium, Plasma 1.9 1.9 - 2.4 mg/dL 09/06/2025 4:51 AM EDT [facility] Blood Venous blood specimen / Unknown Venipuncture / Unknown 09/06/2025 3:37 AM EDT 09/06/2025 3:59 AM EDT us Emma Lehman MD LAB BLOOD ORDERABLES Final Resu lt [facility] [address] [place] [address] * XR Shoulder Right 2+ Views (08/30/2025 [...] ECG Atrial Rate 82 BPM MUSE ECG WV Interval 132 ms MUSE ECG QRSD Interval 76 ms MUSE ECG QT Interval 362 ms MUSE ECG QTC Interval 422 ms MUSE ECG P [place] 29 degrees MUSE ECG R [place] 7 degrees MUSE ECG T Wave [place] 37 degrees MUSE ECG Diagnosis Normal sinus rhythm MUSE ECG Diagnosis Moderate voltage criteria for LVH, may be normal variant ( R in aVL , [employer] product ) MUSE ECG Diagnosis Borderline ECG MUSE ECG Diagnosis MUSE ECG Diagnosis Confirmed by Michel Brandt ([id number]) on 08/29/2025 11:23:49 AM MUSE ECG 08/28/2025 5:11 PM EDT 08/29/2025 11:23 AM EDT us Annamarie Obando MD ECG ORDERABLES Final Result MUSE ECG * Signal Recognition Particle (SRP) Antibody (SO) (08/26/2025 3:26 AM EDT) Only the most recent of2 resultswithin the time period is included. Signal Recognition Particle (SRP) Ab Negative Negative 09/16/2025 6:08 PM EDT [facility] ([employer]) Blood Venous blood specimen / Unknown Venipuncture / Unknown 08/26/2025 3:26 AM EDT 08/26/2025 3:35 AM EDT Narrative [facility] ([employer]) - 09/16/2025 6:08 PM EDT This test was developed and its performance characteristics determined by [employer]. It has not been cleared or approved by the Food and Drug Administration. Performed by: 01 [facility] [address] [place] [address] Kash Garcia MD us Stacie Brown MD LAB REF LAB BLOOD AND FLUI D ORD Final Result [facility] ([employer]) [address] [place] [address] * (ABNORMAL) Myositis Antibody Panel (SO) (08/26/2025 3:26 AM EDT) Only the most recent of2 resultswithin the time period is included. Foster/BLOCK LAYER (PAPA) Ab, IgG 3 0 - 19 Units 09/02/2025 2:19 PM EDT [facility] ([employer]) SSA-52 (RO52) (PAPA) Antibody, IgG 130(H) 0 - 40 AU/mL 09/02/2025 2:19 PM EDT [facility] ([employer]) Mulu-1 (Histidyl-tRNA Synthetase) Ab, IgG 3 0 - 40 AU/mL 09/02/2025 2:19 PM EDT [facility] ([employer]) PM/Scl 100 Antibody, IgG Negative Negative 09/02/2025 2:19 PM EDT [facility] ([employer]) NJ-2 (NUCLEAR HELICASE PROTEIN) ANTIBODY Negative Negative 09/02/2025 2:19 PM EDT [facility] ([employer]) PL-7 (THREONYL-TRNA SYNTHETASE) ANTIBODY Negative Negative 09/02/2025 2:19 PM EDT [facility] ([employer]) PL-12 (ALANYL-TRNA SYNTHETASE) ANTIBODY Negative Negative 09/02/2025 2:19 PM EDT [facility] ([employer]) P155/140 ANTIBODY Negative Negative 09/02/2025 2:19 PM EDT [facility] ([employer]) EJ (GLYCYL-TRNA SYNTHETASE) ANTIBODY Negative Negative 09/02/2025 2:19 PM EDT [facility] ([employer]) KU ANTIBODY Negative Negative 09/02/2025 2:19 PM EDT [facility] ([employer]) SRP (SIGNAL RECOGNITION PARTICLE) AB Negative Negative 09/02/2025 2:19 PM EDT [facility] ([employer]) OJ (ISOLEUCYL-TRNA SYNTHETASE) ANTIBODY Negative Negative 09/02/2025 2:19 PM EDT [facility] ([employer]) SSA-60 (RO60) (PAPA) Antibody, IgG 1 0 - 40 AU/mL 09/02/2025 2:19 PM EDT [facility] ([employer]) Fibrillarin (U3 BLOCK LAYER) Ab, IgG Negative Negative 09/02/2025 2:19 PM EDT [facility] ([employer]) MYOSITIS PANEL INTERPRETIVE DATA See Note 09/02/2025 2:19 PM EDT [facility] ([employer]) SAE1 (SUMO ACTIVATING ENZYME) AB Negative Negative 09/02/2025 2:19 PM EDT [facility] ([employer]) MDA5 (CADM-140) AB Negative Negative 09/02/2025 2:19 PM EDT [facility] ([employer]) NXP2 (NUCLEAR MATRIX PROTEIN-2) AB Negative Negative 09/02/2025 2:19 PM EDT [facility] ([employer]) TIF-1 GAMMA (155 KDA) AB Negative Negative 09/02/2025 2:19 PM EDT [facility] ([employer]) Anti Nuc Ab Screen <1:80 <1:80 09/02/2025 2:19 PM EDT [facility] ([employer]) BINH INTERPRETIVE COMMENT See Note 09/02/2025 2:19 PM EDT [facility] ([employer]) Smith (tyrosyl-tRNA synthetase) Ab Negative Negative 09/02/2025 2:19 PM EDT [facility] ([employer]) Ks (asparaginyl-tRN A synthetase) Ab Negative Negative 09/02/2025 2:19 PM EDT [facility] ([employer]) Zo (phenylalanyl-tR NA synthetase) Ab Negative Negative 09/02/2025 2:19 PM EDT [facility] ([employer]) HMGCR Antibody Screen Negative Negative 09/02/2025 2:19 PM EDT [facility] ([employer]) Blood Venous blood specimen / Unknown Venipuncture / Unknown 08/26/2025 3:26 AM EDT 08/26/2025 3:35 AM EDT Narrative [facility] ([employer]) - 09/02/2025 2:19 PM EDT INTERPRETIVE [...] . . . . . . X Foster/BLOCK LAYER (PAPA) Ab, IgG . . . . [...] . . . . X Fibrillarin (U3 BLOCK LAYER) Ab, IgG . . . . . [...] Ab . . . . X HMGCR (4-Zbrzenm-0-Methylglutaryl Coenzyme A Reductase) . . . . . . . . X This test was developed and its performance characteristics determined by [employer]. It has not been cleared or approved [...] (interstitial lung disease), Raynaud phenomenon, arthritis, and optical mechanic's hands (implicated in antisynthetase syndrome). INTERPRETIVE INFORMATION: Foster/BLOCK LAYER (PAPA) Antibody, IgG 19 Units or Less ............. Negative 20 to 39 Units ............... Weak Positive 40 to 80 Units ............... Moderate Positive 81 Units or greater .......... Strong Positive Foster/BLOCK LAYER antibodies are frequently seen in patients with mixed connective tissue disease (MCTD) and are also associated with other systemic autoimmune rheumatic diseases (SARDs) such as systemic lupus erythematosus (SLE), systemic sclerosis, and myositis. Antibodies targeting the Foster/BLOCK LAYER antigenic complex also recognize Foster antigens, therefore, [...] developed and its performance characteristics determined by [employer]. It has not been cleared or approved [...] Greater .......... Positive Interpretive Information: Fibrillarin (U3 BLOCK LAYER) Antibody, IgG The presence of fibrillarin (U3-BLOCK LAYER) IgG antibodies in association with an BINH [...] a multi-ethnic cohort of SSc patients (n=98), U3-BLOCK LAYER antibodies detected by immunoblot had an agreement of 98.9 percent with the gold standard immunoprecipitation (IP) assay. Approximately 71 percent (5/7) of the borderline U3-BLOCK LAYER results with BINH nucleolar pattern in this cohort were IP negative. This test was developed and its performance characteristics determined by [employer]. It has not been cleared or approved [...] further testing will be performed. Performed By: [facility] [address] [place] [address] Varnisher Apprentice: Esvin Pat MD, PhD CLIA Number: [id number] Stacie Brown MD LAB BLOOD ORDERABLES Final Result Performing Organization Address [facility] de Phone Number [facility] ([facility]) [address] [place] [address] * (ABNORMAL) Cytoplasmic Pattern (08/26/2025 3:26 AM EDT) Only the most recent of2 resultswithin the time period is included. Cytoplasm Pattern AMA(A) 08/31/2025 11:48 PM EDT [facility] Cytoplasmic Titer 1:80(A) 08/31/2025 11:48 PM EDT [facility] ([employer]) Blood Venous blood specimen / Unknown Venipuncture / Unknown 08/26/2025 3:26 AM EDT 08/26/2025 3:35 AM EDT Narrative [facility] ([employer]) - 08/31/2025 11:48 PM EDT Performed By: [employer] [facility] [employer] [address] [place] [address] Varnisher Apprentice: Esvin Pat MD, PhD CLIA Number: [id number] Stacie Brown MD LAB BLOOD ORDERABLES Final Result Performing Organization Address [facility] de Phone Number [facility] ([facility]) [address] [place] [address] * (ABNORMAL) Anti-smooth muscle antibody, IgG (08/26/2025 3:26 AM EDT) Only the most recent of2 resultswithin the time period is included. Smooth Muscle Ab, IgG Titer 1:160(H) <1:20 08/28/2025 10:40 PM EDT [facility] ([employer]) Blood Venous blood specimen / Unknown Venipuncture / Unknown 08/26/2025 3:26 AM EDT 08/26/2025 3:35 AM EDT Narrative [facility] ([facility]) - 08/28/2025 10:40 PM EDT INTERPRETIVE INFORMATION: Smooth Muscle Ab, IgG Titer Less than 1:20 ........ Negative - No antibody detected. 1:20 - 1:80 .......... Weak Positive - Suggest repeat in two to three weeks with fresh specimen. 1:160 or greater ...... Positive - Suggestive of autoimmune hepatitis or chronic active hepatitis. Performed By: [facility] [address] [place] [address] Varnisher Apprentice: Esvin Pat MD, PhD CLIA Number: [id number] us Stacie Brown MD LAB BLOOD ORDERABLES Final Result [facility] [email or web address]) [address] [place] [address] * [place] Modified Barium Swallow (08/22/2025 12:21 [...] coursing through the expected location within the insuz-ip-tzso. Procedure Note Crow Redding MD - 08/22/2025 [...] tubing coursing through the expectedlocation within the idehq-oy-bvbh. IMPRESSION: Intermittent penetration and aspiration of thin [...] Crow Redding MD on 08/22/2025 4:06 PM Stacie Brown MD IMG FLUOROSCOPY PROCEDURES Final Result * XR Chest 1 View (08/21/2025 6:13 [...] PM EDT) Case Report Surgical Pathology Case: [id number] Authorizing Provider: Carla Montes MD Collected: 08/21/2025 1525 Ordering Location: [facility] Operating Room Received: 08/22/2025 0636 Pathologist: Jumana Beck MD Specimens: A) - Leg, Right, right thigh muscle biopsy/1 piece fresh, 1 piece placed in formalin, 1 piece placed in Glutaraldehyde B) - Foot, Right, right foot skin biopsy 7:28 PM EDT [facility] Final Diagnosis A. SKELETAL MUSCLE, RIGHT THIGH, BIOPSY: - EXTENSIVE DEGENERATING AND REGENERATING FIBERS WITH SCATTERED MACROPHAGES - SEE COMMENT AND TEMPLATE B. PER DR. ECHEVERRIA, [id number]: RIGHT FOOT: - EPIDERMAL NECROSIS AND CRUSTING (SEE COMMENT). 7:28 PM EDT [facility] at 1928 EDT Comment Comment [...] Nader Echeverria. Dr. Echeverria's entire consultation report ([id number]) can be viewed as a scanned document in [employer]. 5 7:28 PM EDT [facility] Clinical Information Non-traumatic rhabdomyolysis [M62.82] [...] Elevated CK levels Date CK Level (U/L) 08/06/202508/07/2025 23,744 08/08/2025 87,872 08/09/2025 97,720 08/10/2025 54,530 [...] Diffuse subcutaneous edema.... 5 7:28 PM EDT [facility] Microscopic Description Skeletal Muscle Template [...] report. Skin biopsy Description: PER DR. ECHEVERRIA, [id number]: The epidermis is necrotic and crusted. Vasculitis is not seen. Interface change is not conspicuous. The dermis demonstrates loose fibrosis but marked inflammation is not seen. 5 7:28 PM EDT [facility] Special and Immunohistochemical Stains Special Stain: A1-2 Modified Gomori Trichrome A1-3 PAS A1-4 Oil Red O A1-5 ATP - Adenosine Triphophatase A1-6 NADH Tetrazolium Reductase IHC: A2-2 CD3: highlights very rare reactive T cells A2-3 CD20: negative A2-4 BW45-VU7: highlights scattered macrophages within myocytes All controls show appropriate reactivity. All immunohistochemis try, in situ hybridization, and histochemical tests were developed by and are performed at the [facility], [address] [place] [address]. All tests reported here, except those addressing [...] negativity on decalcified specimens. 7:28 PM EDT [facility] Gross Description A. RIGHT THIGH [...] <1m Lizzette B Pettey 7:28 PM EDT [facility] Note: A resident was involved in the service. I attest I examined the relevant preparations for the specimens and confirmed the diagnosis or interpretation. 7:28 PM EDT [facility] Tissue Structure of right lower limb / Unknown 08/21/2025 3:25 PM EDT 08/22/2025 6:36 AM EDT Comment:Pre-op diagnosis: Non-traumatic rhabdomyolysis [M62.82] See patient record for ss, history, etc. Skin (tissue) specimen (specimen) Structure of right foot / Unknown 08/21/2025 3:48 PM EDT 08/22/2025 7:39 AM EDT Comment:Pre-op diagnosis: Non-traumatic rhabdomyolysis [M62.82] See patient record for ss, history, etc. us Carla Montes MD LAB PATHOLOGY ORDERABLES Final Result [facility] [address] [place] [address] * PERIPHERAL IV ([employer]ART[employer] L[employer]) (08/21/2025 1:25 [...] collected in epic and delivered to lab. us Stacie Brown MD IV THERAPY ORDERABLES Rosa Maria driscoll Result * Ionized calcium, whole blood (08/21/2025 12:12 PM EDT) Only the most recent of4 resultswithin the time period is included. Pathologist [facility] Ionized Calcium, Whole Blood 5.0 4.6 - 5.1 mg/dL LAB HEMATOLOGY METHOD 08/21/2025 12:25 PM EDT [facility] Blood Venous blood specimen / Unknown Venipuncture / Unknown 08/21/2025 12:12 PM EDT 08/21/2025 12:23 PM EDT us Yeni Landis APRN LAB BLOOD ORDERABLES Rosa Maria l Result [facility] [address] [place] [address] * Encephalopathy, Autoimm/Paraneo, Serum (SO) (08/21/2025 12:12 PM EDT) Pathologist [facility] AMPA-R Ab CBA, S Negative Negative 08/29/20 9:16 AM EDT [facility] ([facility]) Comment: ADDITIONAL INFORMATION This test was developed and its performance characteristics determined by [facility] in a manner consistent with CLIA requirements. This test has not been cleared or approved by the U.S. Food and Drug Administration. Sethin , S Negative Negative 9:16 AM EDT [facility] ([facility]) Comment: ADDITIONAL INFORMATION This test was developed and its performance characteristics determined by [facility] in a manner consistent with CLIA requirements. This test has not been cleared or approved by the U.S. Food and Drug Administration. AGNA-1, S Negative Negative 08/29/2025 9:16 AM EDT [facility] ([facility]) Comment: ADDITIONAL INFORMATION This test was developed and its performance characteristics determined by [facility] in a manner consistent with CLIA requirements. This test has not been cleared or approved by the U.S. Food and Drug Administration. DARNELL-1, S Negative Negative 08/29/2025 9:16 AM EDT [facility] ([facility]) Comment: ADDITIONAL INFORMATION This test was developed and its performance characteristics determined by [facility] in a manner consistent with CLIA requirements. This test has not been cleared or approved by the U.S. Food and Drug Administration. DARNELL-2, S Negative Negative 08/29/2025 9:16 AM EDT [facility] ([facility]) Comment: ADDITIONAL INFORMATION This test was developed and its performance characteristics determined by [facility] in a manner consistent with CLIA requirements. This test has not been cleared or approved by the U.S. Food and Drug Administration. DARNELL-3, S Negative Negative 08/29/2025 9:16 AM EDT [facility]) Comment: ADDITIONAL INFORMATION This test was developed and its performance characteristics determined by [facility] in a manner consistent with CLIA requirements. This test has not been cleared or approved by the U.S. Food and Drug Administration. CASPR2-IgG CBA, S Negative Negative 9:16 AM EDT [facility]) Comment: ADDITIONAL INFORMATION This test was developed and its performance characteristics determined by [facility] in a manner consistent with CLIA requirements. This test has not been cleared or approved by the U.S. Food and Drug Administration. CRMP-5-IgG, S Negative Negative 08/29/2025 9:16 AM EDT [facility]) Comment: ADDITIONAL INFORMATION This test was developed and its performance characteristics determined by [facility] in a manner consistent with CLIA requirements. This test has not been cleared or approved by the U.S. Food and Drug Administration. KAT-B-R Ab CBA, S Negative Negative 2024 9:16 AM EDT [facility] ([facility]) Comment: ADDITIONAL INFORMATION This test was developed and its performance characteristics determined by [facility] in a manner consistent with CLIA requirements. This test has not been cleared or approved by the U.S. Food and Drug Administration. GAD65 Ab Assay, S 0.00 <=0.02 nmol/L 08/29/2025 9:16 AM EDT [facility]) Comment: ADDITIONAL INFORMATION This test was developed and its performance characteristics determined by [facility] in a manner consistent with CLIA requirements. This test has not been cleared or approved by the U.S. Food and Drug Administration. LGI1-IgG CBA, S Negative Negative 9:16 AM EDT [facility] ([facility]) Comment: ADDITIONAL INFORMATION This test was developed and its performance characteristics determined by [facility] in a manner consistent with CLIA requirements. This test has not been cleared or approved by the U.S. Food and Drug Administration. mGluR1 Ab IFA, S Negative Negative 08/29/20 9:16 AM EDT [facility] ([facility]) Comment: ADDITIONAL INFORMATION This test was developed and its performance characteristics determined by [facility] in a manner consistent with CLIA requirements. This test has not been cleared or approved by the U.S. Food and Drug Administration. NMDA-R Ab CBA, S Negative Negative 08/29/20 9:16 AM EDT [facility] ([facility]) Comment: ADDITIONAL INFORMATION This test was developed and its performance characteristics determined by [facility] in a manner consistent with CLIA requirements. This test has not been cleared or approved by the U.S. Food and Drug Administration. ICU RN-1, S Negative Negative 08/29/2025 9:16 AM EDT [facility]) Comment: ADDITIONAL INFORMATION This test was developed and its performance characteristics determined by [facility] in a manner consistent with CLIA requirements. This test has not been cleared or approved by the U.S. Food and Drug Administration. ICU RN-2, S Negative Negative 08/29/2025 9:16 AM EDT [facility]) Comment: ADDITIONAL INFORMATION This test was developed and its performance characteristics determined by [facility] in a manner consistent with CLIA requirements. This test has not been cleared or approved by the U.S. Food and Drug Administration. ICU RN-Tr, S Negative Negative 08/29/2025 9:16 AM EDT [facility] ([facility]) Comment: ADDITIONAL INFORMATION This test was developed and its performance characteristics determined by [facility] in a manner consistent with CLIA requirements. This test has not been cleared or approved by the U.S. Food and Drug Administration. GFAP IFA, S Negative Negative 08/29/2025 9:16 AM EDT [facility] ([facility]) Comment: ADDITIONAL INFORMATION This test was developed and its performance characteristics determined by [facility] in a manner consistent with CLIA requirements. This test has not been cleared or approved by the U.S. Food and Drug Administration. NIF IFA, S Negative Negative 08/29/2025 9:16 AM EDT [facility] ([facility]) Comment: ADDITIONAL INFORMATION This test was developed and its performance characteristics determined by [facility] in a manner consistent with CLIA requirements. This test has not been cleared or approved by the U.S. Food and Drug Administration. Neurochondrin IFA, S Negative Negative 08/29/2025 9:16 AM EDT [facility] ([facility]) Comment: ADDITIONAL INFORMATION This test was developed and its performance characteristics determined by [facility] in a manner consistent with CLIA requirements. This test has not been cleared or approved by the U.S. Food and Drug Administration. SEPTIN-7 IFA, S Negative Negative 9:16 AM EDT [facility] ([facility]) Comment: ADDITIONAL INFORMATION This test was developed and its performance characteristics determined by [facility] in a manner consistent with CLIA requirements. This test has not been cleared or approved by the U.S. Food and Drug Administration. IFA Notes None. 08/29/2025 9:16 AM EDT [facility] ([facility]) Encephalopathy, Interpretation, S SEE COMMENTS 08/29/2025 9:16 AM EDT [facility] ([facility]) Comment: No informative autoantibodies were detected in this evaluation. However, a negative result does not exclude autoimmune encephalopathy, idiopathic or paraneoplastic. Sensitivity and specificity of antibody testing are enhanced by testing both serum and CSF. DPPX Ab CBA, S Negative Negative 08/29/2025 9:16 AM EDT [facility] ([facility]) Comment: ADDITIONAL INFORMATION This test was developed and its performance characteristics determined by [facility] in a manner consistent with CLIA requirements. This test has not been cleared or approved by the U.S. Food and Drug Administration. IgLON5 CBA, S Negative Negative 08/29/2025 9:16 AM EDT [facility] ([facility]) Comment: ADDITIONAL INFORMATION This test was developed and its performance characteristics determined by [facility] in a manner consistent with CLIA requirements. This test has not been cleared or approved by the U.S. Food and Drug Administration. PDE10A Ab IFA, S Negative Negative 08/29/20 9:16 AM EDT [facility] [facility] ([facility]) Comment: ADDITIONAL INFORMATION This test was developed and its performance characteristics determined by [facility] in a manner consistent with CLIA requirements. This test has not been cleared or approved by the U.S. Food and Drug Administration. [id number] Ab IFA, S Negative Negative 08/29/20 9:16 AM EDT [facility] ([place]) Comment: ADDITIONAL INFORMATION This test was developed and its performance characteristics determined by [facility] in a manner consistent with CLIA requirements. This test has not been cleared or approved by the U.S. Food and Drug Administration. Test Performed by: [facility] [place] [address] Diesel Locomotive Engineer: Gerber Noel Ph.D.; CLIA# [id number] Blood Venous blood specimen / Unknown Venipuncture / Unknown 08/21/2025 12:12 PM EDT 08/21/2025 12:22 PM EDT Stacie Brown MD LAB BLOOD ORDERABLES Final Result [facility]) * IR Lumbar Puncture (08/21/2025 10:42 AM [...] AM COMPARISON: MR head reviewed from 08/19/2025. TURPENTINE DISTILLER: Emma Lebron PA-C SECONDARY TANGIBLE PERSONAL PROPERTY APPRAISER: RT Rowan CONTRAST: 0 cc MEDICATIONS: 1% [...] AM COMPARISON: MR head reviewed from 08/19/2025. TURPENTINE DISTILLER: Emma Lebron PA-C SECONDARY TANGIBLE PERSONAL PROPERTY APPRAISER: RT Rowan CONTRAST: 0 cc MEDICATIONS: 1% [...] MD on 08/22/2025 1:16 PM us Emma [facility]DANA IMG IR PROCEDURES Final Resul t * CSF Panel (08/21/2025 10:36 AM EDT) Cerebrospinal Fluid Lumbar puncture / Unknown Non-blood Collection / Unknown 08/21/2025 10:36 AM EDT 08/21/2025 12:24 PM EDT us Stcaie Brown MD LAB BODY FLUIDS AND STOOLS ORDERABLES Final Result [facility] [address] [place] [address] * Meningitis/Encephalitis Panel by PCR (08/21/2025 10:36 AM EDT) Escherichia coli K1 PCR Result Not Detected Not Detected 08/22/2025 8:06 AM EDT [facility] Haemophilus influenzae PCR Result Not Detected Not Detected 08/22/2025 8:06 AM EDT [facility] Listeria monocytogenes PCR Result Not Detected Not Detected 08/22/2025 8:06 AM EDT [facility] Neisseria meningitidis PCR Result Not Detected Not Detected 08/22/2025 8:06 AM EDT [facility] Streptococcus agalactiae PCR Result Not Detected Not Detected 08/22/2025 8:06 AM EDT [facility] Streptococcus pneumoniae PCR Result Not Detected Not Detected 08/22/2025 8:06 AM EDT [facility] Cytomegalovirus (CMV) PCR Result Not Detected Not Detected 08/22/2025 8:06 AM EDT [facility] Enterovirus (EV) PCR Result Not Detected Not Detected 08/22/2025 8:06 AM EDT [facility] Herpes Simplex Virus 1 (HSV-1) PCR Result Not Detected Not Detected 08/22/2025 8:06 AM EDT [facility] Herpes Simplex Virus 2 (HSV-2) PCR Result Not Detected Not Detected 08/22/2025 8:06 AM EDT [facility] Human Herpes Virus 6 (HHV-6) PCR Result Not Detected Presumptive Negative 08/22/2025 8:06 AM EDT [facility] Human Parechovirus (HPeC) PCR Result Not Detected Not Detected 08/22/2025 8:06 AM EDT [facility] Varicella Zoster Virus (VZV) PCR Result Not Detected Not Detected 08/22/2025 8:06 AM EDT [facility] Cryptococcus neoformans/gattii PCR Result Not Detected Not Detected 08/22/2025 8:06 AM EDT [facility] Cerebrospinal Fluid Lumbar puncture / Unknown Non-blood Collection / Unknown 08/21/2025 10:36 AM EDT 08/21/2025 12:24 PM EDT Narrative [facility] - 08/22/2025 8:06 AM EDT [...] on test performance has not been evaluated. Staice Brown MD LAB MICROBIOLOGY - GENERAL ORDERABLES Final Result Performing Organization Address [facility] Co de Phone Number [facility] [address] [place] [address] * Freeze and Hold (08/21/2025 10:36 AM EDT) [facility] Signature Freeze and Hold Result The specimen has been received and verified. All specimens are held 30 days before discarding. Time of verification: 222709/22/2025 7:54 AM EDT [facility] Estimated Volume of Specimen 1.0-2.0 mL 09/22/2025 7:54 AM EDT [facility] Cerebrospinal Fluid Lumbar puncture / Unknown Non-blood Collection / Unknown 08/21/2025 10:36 AM EDT 08/21/2025 12:24 PM EDT Stacie Brown MD LAB MICROBIOLOGY - GENERAL ORDERABLES Final Result Performing Organization Address City/[facility] Co de Phone Number [facility] [address] [place] [address] * Cerebrospinal Fluid (CSF) Culture and Gram Stain (08/21/2025 10:36 AM EDT) Culture No growth at day 4 2024 8:35 AM EDT [facility] Gram Stain No polymorphonuclear leukocytes seen 08/24/2025 8:35 AM EDT [facility] Gram Stain No organisms seen 025 8:35 AM EDT [facility] Cerebrospinal Fluid Lumbar puncture / Unknown Non-blood Collection / Unknown 08/21/2025 10:36 AM EDT 08/21/2025 12:24 PM EDT us Stacie Brown MD LAB MICROBIOLOGY - GENERAL ORDERABLES Final Result [facility] [address] [place] [address] * Non-Gynecologic Cytology (08/21/2025 10:36 AM EDT) Case Report Cytology Case: [id number] Authorizing Provider: Stacie Brown MD Collected: 08/21/2025 1036 Ordering Location: [facility] S Inpatient Received: 08/22/2025 0756 Pathologist: Annemarie Gibbs MD Specimen: Lumbar Puncture, CEREBROSPINAL FLUID 08/22/2025 5:51 PM EDT [facility] Final Diagnosis A. CEREBROSPINAL FLUID - NO EVIDENCE OF MALIGNANCY, RARE MONONUCLEAR CELLS 08/22/2025 5:51 PM EDT [facility] at 1751 EDT Clinical History progressive weakness, BUE, BLE, dysphagia, bullae 08/22/2025 5:51 PM EDT [facility] Previous Cancer No 5:51 PM EDT [facility] Gross Description A. CEREBROSPINAL FLUID 1.0 ml's of clear fluid in tube #1, 2.0 ml's of clear fluid in tube #2, 0.5 ml's of clear fluid in tube #3 and 1.0 ml's of clear fluid in tube #4 all for thinprep 08/22/2025 5:51 PM EDT [facility] Special Instructions opening pressure 08/22/2025 5:51 PM EDT [facility] Cerebrospinal Fluid Lumbar puncture / Unknown Non-blood Collection / Unknown 08/21/2025 10:36 AM EDT 08/22/2025 7:56 AM EDT us Stacie Brown MD LAB CYTOLOGY ORDERABLES Fi nal Result [facility] [address] [place] [address] * CSF Cell Count w/ Manual Differential (08/21/2025 10:27 AM EDT) Unspun Color, CSF Colorless Colorless LAB HEMATOLOGY METHOD 08/21/2025 4:37 PM EDT [facility] Unspun Clarity, CSF Clear Clear LAB HEMATOLOGY METHOD 08/21/2025 4:37 PM EDT [facility] Spun Color, CSF LAB HEMATOLOGY METHOD 08/21/2025 4:37 PM EDT [facility] Comment:Test Not Indicated Spun Clarity, CSF LAB HEMATOLOGY METHOD 08/21/2025 4:37 PM EDT [facility] Comment:Test Not Indicated Volume CSF 5.0 cc LAB HEMATOLOGY METHOD 08/21/2025 4:37 PM EDT [facility] Tube Number, CSF Tube 4 LAB HEMATOLOGY METHOD 08/21/2025 4:37 PM EDT [facility] Red Blood Cell Count, CSF 157 0 uL uL LAB HEMATOLOGY METHOD 08/21/2025 4:37 PM EDT [facility] Comment:Test performed by ma nual method. Total Nucleated Cell Count, CSF 2 0 - 5 L LAB HEMATOLOGY METHOD 08/21/2025 4:37 PM EDT [facility] Comment:Test performed by ma nual method. Neutrophils %, CSF LAB HEMATOLOGY METHOD 08/21/2025 4:37 PM EDT [facility] Comment:Too few to count Lymphocytes %, CSF LAB HEMATOLOGY METHOD 08/21/2025 4:37 PM EDT [facility] Comment:Too few to count Monocytes/Macro phages %, CSF LAB HEMATOLOGY METHOD 08/21/2025 4:37 PM EDT [facility] Comment:Too few to count Eosinophils %, CSF LAB HEMATOLOGY METHOD 08/21/2025 4:37 PM EDT [facility] Comment:Too few to count Basophils %, CSF LAB HEMATOLOGY METHOD 08/21/2025 4:37 PM EDT [facility] Comment:Too few to count Neutrophils Absolute, CSF LAB HEMATOLOGY METHOD 08/21/2025 4:37 PM EDT [facility] Comment:Too few to count Lymphocytes Absolute, CSF LAB HEMATOLOGY METHOD 08/21/2025 4:37 PM EDT [facility] Comment:Too few to count Monocytes/Macro phages Absolute, CSF LAB HEMATOLOGY METHOD 08/21/2025 4:37 PM EDT [facility] Comment:Too few to count Eosinophils Absolute, CSF LAB HEMATOLOGY METHOD 08/21/2025 4:37 PM EDT [facility] Comment:Too few to count Basophils Absolute, CSF LAB HEMATOLOGY METHOD 08/21/2025 4:37 PM EDT [facility] Comment:Too few to count Cerebrospinal Fluid Lumbar puncture / Unknown Non-blood Collection / Unknown 08/21/2025 10:27 AM EDT 08/21/2025 12:31 PM EDT Stacie Brown MD LAB BODY FLUIDS AND STOOLS ORDERABLES Final Result [facility] [address] [place] [address] * Encephalopathy, Autoimm/Paraneo, CSF (SO) (08/21/2025 10:27 AM EDT) AMPA-R Ab CBA, CSF Negative Negative 2024 9:16 AM EDT [email or web address] ([place]) Comment: ADDITIONAL INFORMATION This test was developed and its performance characteristics determined by [facility] in a manner consistent with CLIA requirements. This test has not been cleared or approved by the U.S. Food and Drug Administration. Amphiphysin Ab, CSF Negative Negative 08/29/2025 9:16 AM EDT [facility] ([place]) Comment: ADDITIONAL INFORMATION This test was developed and its performance characteristics determined by [facility] in a manner consistent with CLIA requirements. This test has not been cleared or approved by the U.S. Food and Drug Administration. BAILEE-1, CSF Negative Negative 08/29/2025 9:16 AM EDT [facility] ([facility]) Comment: ADDITIONAL INFORMATION This test was developed and its performance characteristics determined by [facility] in a manner consistent with CLIA requirements. This test has not been cleared or approved by the U.S. Food and Drug Administration. DARNELL-1, CSF Negative Negative 08/29/2025 9:16 AM EDT [facility] ([facility]) Comment: ADDITIONAL INFORMATION This test was developed and its performance characteristics determined by [facility] in a manner consistent with CLIA requirements. This test has not been cleared or approved by the U.S. Food and Drug Administration. DARNELL-2, CSF Negative Negative 08/29/2025 9:16 AM EDT [facility] ([facility]) Comment: ADDITIONAL INFORMATION This test was developed and its performance characteristics determined by [facility] in a manner consistent with CLIA requirements. This test has not been cleared or approved by the U.S. Food and Drug Administration. DARNELL-3, CSF Negative Negative 08/29/2025 9:16 AM EDT [facility] ([facility]) Comment: ADDITIONAL INFORMATION This test was developed and its performance characteristics determined by [facility] in a manner consistent with CLIA requirements. This test has not been cleared or approved by the U.S. Food and Drug Administration. CASPR2-IgG CBA, CSF Negative Negative 08/29/2025 9:16 AM EDT [facility] ([facility]) Comment: ADDITIONAL INFORMATION This test was developed and its performance characteristics determined by [facility] in a manner consistent with CLIA requirements. This test has not been cleared or approved by the U.S. Food and Drug Administration. CRMP-5-IgG, CSF Negative Negative 9:16 AM EDT [email or web address]) Comment: ADDITIONAL INFORMATION This test was developed and its performance characteristics determined by [facility] in a manner consistent with CLIA requirements. This test has not been cleared or approved by the U.S. Food and Drug Administration. KAT-B-R Ab CBA, CSF Negative Negative 08/29/2025 9:16 AM EDT [email or web address]) Comment: ADDITIONAL INFORMATION This test was developed and its performance characteristics determined by [facility] in a manner consistent with CLIA requirements. This test has not been cleared or approved by the U.S. Food and Drug Administration. GAD65 Ab Assay, CSF 0.00 <=0.02 nmol/L 08/29/2025 9:16 AM EDT [email or web address]) Comment: ADDITIONAL INFORMATION This test was developed and its performance characteristics determined by [facility] in a manner consistent with CLIA requirements. This test has not been cleared or approved by the U.S. Food and Drug Administration. GFAP IFA, CSF Negative Negative 08/29/2025 9:16 AM EDT [facility] ([facility]) Comment: ADDITIONAL INFORMATION This test was developed and its performance characteristics determined by [facility] in a manner consistent with CLIA requirements. This test has not been cleared or approved by the U.S. Food and Drug Administration. LGI1-IgG CBA, CSF Negative Negative 9:16 AM EDT [facility] ([facility]) Comment: ADDITIONAL INFORMATION This test was developed and its performance characteristics determined by [facility] in a manner consistent with CLIA requirements. This test has not been cleared or approved by the U.S. Food and Drug Administration. mGluR1 Ab IFA, CSF Negative Negative 2024 9:16 AM EDT [facility] ([facility]) Comment: ADDITIONAL INFORMATION This test was developed and its performance characteristics determined by [facility] in a manner consistent with CLIA requirements. This test has not been cleared or approved by the U.S. Food and Drug Administration. NIF IFA, CSF Negative Negative 08/29/2025 9:16 AM EDT [facility] ([facility]) Comment: ADDITIONAL INFORMATION This test was developed and its performance characteristics determined by [facility] in a manner consistent with CLIA requirements. This test has not been cleared or approved by the U.S. Food and Drug Administration. NMDA-R Ab CBA, CSF Negative Negative 2024 9:16 AM EDT [facility] ([facility]) Comment: ADDITIONAL INFORMATION This test was developed and its performance characteristics determined by [facility] in a manner consistent with CLIA requirements. This test has not been cleared or approved by the U.S. Food and Drug Administration. ICU RN-1, CSF Negative Negative 08/29/2025 9:16 AM EDT [facility] ([facility]) Comment: ADDITIONAL INFORMATION This test was developed and its performance characteristics determined by [facility] in a manner consistent with CLIA requirements. This test has not been cleared or approved by the U.S. Food and Drug Administration. ICU RN-2, CSF Negative Negative 08/29/2025 9:16 AM EDT [facility] ([facility]) Comment: ADDITIONAL INFORMATION This test was developed and its performance characteristics determined by [facility] in a manner consistent with CLIA requirements. This test has not been cleared or approved by the U.S. Food and Drug Administration. Neurochondrin IFA, CSF Negative Negative 08/29/2025 9:16 AM EDT [facility] ([facility]) Comment: ADDITIONAL INFORMATION This test was developed and its performance characteristics determined by [facility] in a manner consistent with CLIA requirements. This test has not been cleared or approved by the U.S. Food and Drug Administration. Septin-7 IFA, CSF Negative Negative 9:16 AM EDT [facility] ([facility]) Comment: ADDITIONAL INFORMATION This test was developed and its performance characteristics determined by [facility] in a manner consistent with CLIA requirements. This test has not been cleared or approved by the U.S. Food and Drug Administration. ICU RN-TR, CSF Negative Negative 08/29/2025 9:16 AM EDT [facility] ([facility]) Comment: ADDITIONAL INFORMATION This test was developed and its performance characteristics determined by [facility] in a manner consistent with CLIA requirements. This test has not been cleared or approved by the U.S. Food and Drug Administration. Encephalopathy, Interpretation, CSF SEE COMMENTS 08/29/2025 9:16 AM [facility] ([facility]) Comment: No informative autoantibodies were detected in this evaluation. However, a negative result does not exclude autoimmune encephalopathy, idiopathic or paraneoplastic. Sensitivity and specificity of antibody testing are enhanced by testing both serum and CSF. IFA Notes None. 08/29/2025 9:16 AM EDT [facility] ([facility]) DPPX Ab CBA, CSF Negative Negative 08/29/20 9:16 AM EDT [facility] ([facility]) Comment: ADDITIONAL INFORMATION This test was developed and its performance characteristics determined by [facility] in a manner consistent with CLIA requirements. This test has not been cleared or approved by the U.S. Food and Drug Administration. IgLON5 CBA, CSF Negative Negative 9:16 AM EDT [facility] ([facility]) Comment: ADDITIONAL INFORMATION This test was developed and its performance characteristics determined by [facility] in a manner consistent with CLIA requirements. This test has not been cleared or approved by the U.S. Food and Drug Administration. PDE10A Ab IFA, CSF Negative Negative 2024 9:16 AM EDT [facility]) Comment: ADDITIONAL INFORMATION This test was developed and its performance characteristics determined by [facility] in a manner consistent with CLIA requirements. This test has not been cleared or approved by the U.S. Food and Drug Administration. TRIM46 Ab IFA, CSF Negative Negative 2024 9:16 AM EDT [facility] ([facility]) Comment: ADDITIONAL INFORMATION This test was developed and its performance characteristics determined by [facility] in a manner consistent with CLIA requirements. This test has not been cleared or approved by the U.S. Food and Drug Administration. Test Performed by: [facility] - [address] [address] Diesel Locomotive Engineer: Gerber Noel Ph.D.; CLIA# [id number] Cerebrospinal Fluid Cerebrospinal fluid specimen / Unknown Non-blood Collection / Unknown 08/21/2025 10:27 AM EDT 08/21/2025 12:35 PM EDT Stacie Brown MD LAB BODY FLUIDS AND STOOLS ORDERABLES Final Result [facility] ([place]) * Protein, CSF (08/21/2025 10:27 AM EDT) Total Protein, CSF 18 15 - 45 mg/dL 08/21/2025 3:50 PM EDT [facility] Cerebrospinal Fluid Lumbar puncture / Unknown Non-blood Collection / Unknown 08/21/2025 10:27 AM EDT 08/21/2025 12:35 PM EDT Narrative [facility] - 08/21/2025 3:50 PM EDT Blood, when present in CSF, invalidates protein. Interpret results in the context of the patient's condition and other laboratory results. Stacie Brown MD LAB BODY FLUIDS AND STOOLS ORDERABLES Final Result [facility] [address] [place] [address] * Lactic acid, CSF (08/21/2025 10:27 AM EDT) Lactate, CSF 1.3 1.1 - 2.4 mmol/L 08/21/2025 4:04 PM EDT [facility] Cerebrospinal Fluid Lumbar puncture / Unknown Non-blood Collection / Unknown 08/21/2025 10:27 AM EDT 08/21/2025 12:35 PM EDT Narrative [facility] - 08/21/2025 4:04 PM EDT CSF reference intervals are based on literature values and have not been verified at the [facility]. Stacie Brown MD LAB BODY FLUIDS AND STOOLS ORDERABLES Final Result Performing Organization Address [facility] Co de Phone Number [facility] [address] [place] [phone] * Glucose, CSF (08/21/2025 10:27 AM EDT) [facility] Glucose, CSF 67 41 - 70 mg/dL 08/21/2025 3:50 PM EDT [facility] Cerebrospinal Fluid Lumbar puncture / Unknown Non-blood Collection / Unknown 08/21/2025 10:27 AM EDT 08/21/2025 12:35 PM EDT Narrative [facility] - 08/21/2025 3:50 PM EDT CSF glucose values should be approximately 60 % of the plasma values and must always be compared with concurrently measured plasma values for adequate clinical interpretation. No reference ranges have been established for pediatric patients. Stacie Brown MD LAB BODY FLUIDS AND STOOLS ORDERABLES Final Result Performing Organization Address [facility] de Phone Number [facility] [address] [place] [phone] * (ABNORMAL) Hemogram (CBC) (08/20/2025 8:51 AM EDT) Only the most recent of4 resultswithin the time period is included. Pathologist [facility] WBC Count 15.41(H) 3.70 - 10.30 10*3/uL LAB HEMATOLOGY METHOD 08/20/2025 8:56 AM EDT [facility] RBC Count 2.74(L) 3.90 - 5.20 10*6/uL LAB HEMATOLOGY METHOD 08/20/2025 8:56 AM EDT [facility] HGB 8.3(L) 11.2 - 15.7 g/dL LAB HEMATOLOGY METHOD 08/20/2025 8:56 AM EDT [facility] HCT 26.7(L) 34.0 - 45.0 % LAB HEMATOLOGY METHOD 08/20/2025 8:56 AM EDT [facility] Platelet Count 408(H) 155 - 369 10*3/uL LAB HEMATOLOGY METHOD 08/20/2025 8:56 AM EDT [facility] MCV 97 79 - 98 fL LAB HEMATOLOGY METHOD 08/20/2025 8:56 AM EDT [facility] MCH 30.3 26.0 - 32.0 pg LAB HEMATOLOGY METHOD 08/20/2025 8:56 AM EDT [facility] MCHC 31.1 30.7 - 35.5 g/dL LAB HEMATOLOGY METHOD 08/20/2025 8:56 AM EDT [facility] RDW 18.9(H) 11.5 - 14.5 % LAB HEMATOLOGY METHOD 08/20/2025 8:56 AM EDT [facility] MPV 9.6 8.8 - 12.5 fL LAB HEMATOLOGY METHOD 08/20/2025 8:56 AM EDT [facility] nRBC 0.0 <=0.0 per 100 WBCs LAB HEMATOLOGY METHOD 08/20/2025 8:56 AM EDT [facility] Blood Venous blood specimen / Unknown Venipuncture / Unknown 08/20/2025 8:51 AM EDT 08/20/2025 8:54 AM EDT us [facility] LAB BLOOD ORDERABLES Final [facility] [address] [place] [phone] * (ABNORMAL) Vancomycin, Peak, Plasma Please draw vancomycin peak two hours AFTER the conclusion of the vancomycin infusion. This order is time sensitive and is essential to ensure timely dosing of subsequent doses. (08/20/2025 8:50 AM EDT) Vancomycin, Peak, Plasma 41.2(H) 20.0 - 40.0 ug/mL 08/20/2025 9:13 AM EDT [facility] Blood Venous blood specimen / Unknown Venipuncture / Unknown 08/20/2025 8:50 AM EDT 08/20/2025 8:54 AM EDT Narrative [facility] - 08/20/2025 9:13 AM EDT Therapeutic Peak level: 20-40ug/mL Supra-therapeutic Peak level: >40 ug/mL Imelda Geiger MD LAB BLOOD ORDERABLES Final Resul t Performing Organization Address [facility] [place]/[facility] Co de Phone Number [facility] [address] [place] [address] * Transfuse RBC (08/20/2025 5:36 AM EDT) Kobe ALDANA BLOOD TRANSFUSION ORDERABLES Final Result * (ABNORMAL) Vancomycin, Trough, Plasma Please draw vancomycin trough 30 minutes BEFORE the START of the vancomycin infusion. This order is time sensitive and is essential to ensure timely dosing of subsequent doses. (08/20/2025 5:35 AM EDT) Pathologist [facility] Vancomycin, Trough, Plasma 20.5(H) 10.0 - 20.0 ug/mL 08/20/2025 6:05 AM EDT [facility] Blood Venous blood specimen / Unknown Venipuncture / Unknown 08/20/2025 5:35 AM EDT 08/20/2025 5:44 AM EDT Narrative [facility] - 08/20/2025 6:05 AM EDT Therapeutic Trough level: 10-20ug/mL Supra-therapeutic Trough level: >20 ug/mL Imelda Geiger MD LAB BLOOD ORDERABLES Final Resul t Performing Organization Address [facility] [place]/[facility] de Phone Number [facility] [address] [place] [address] * Cyndee auris Surveillance by PCR (08/20/2025 3:53 AM EDT) Pathologist [facility] Cyndee auris PCR Result Not Detected Not Detected 08/21/2025 5:50 AM EDT [facility] Swab (Axilla and Groin) Non-blood Collection / Unknown 08/20/2025 3:53 AM EDT 08/20/2025 6:47 AM EDT Narrative [facility] - 08/21/2025 5:50 AM EDT This PCR assay was developed and its performance characteristics determined by [facility] as appropriate for clinical purposes. This assay has not been cleared or approved by the FDA, but is performed in a CLIA regulated laboratory that is qualified to perform high-complexity testing. us Imelda Geiger MD LAB MICROBIOLOGY - GENERAL ORDER ISABELLE Final Result [facility] [address] [place] [address] * (ABNORMAL) POCT venous blood gas gem (08/20/2025 1:29 AM EDT) pH, Venous 7.41 7.32 - 7.43 08/20/2025 1:30 AM EDT [facility] pCO2, Venous 49 37 - 52 mm Hg 08/20/2025 1:30 AM EDT [facility] pO2, Venous 61(H) 25 - 40 mm Hg 08/20/2025 1:30 AM EDT [facility] SO2, Venous 92(H) 65 - 80 % 08/20/2025 1:30 AM EDT [facility] Base Excess/Deficit , Venous 5.8(H) -2 - 3 mmol/L 08/20/2025 1:30 AM EDT [facility] HCO3, Venous 31.1(H) 22 - 26 mmol/L 08/20/2025 1:30 AM EDT [facility] Hemoglobin, Venous 7.2(L) 11.2 - 15.7 g/dL 08/20/2025 1:30 AM EDT [facility] Hematocrit, Venous 22.0(L) 34.0 - 45.0 % 08/20/2025 1:30 AM EDT [facility] Sodium, Venous 129(L) 136 - 145 mmol/L 08/20/2025 1:30 AM EDT [facility] Potassium, Venous 4.5 3.6 - 4.9 mmol/L 08/20/2025 1:30 AM EDT [facility] POCT Chloride, Venous 106 97 - 107 mmol/L 08/20/2025 1:30 AM EDT [facility] Glucose, Venous 122(H) 74 - 99 mg/dL 08/20/2025 1:30 AM EDT [facility] Ionized Calcium, Venous 5.2(H) 4.6 - 5.1 mg/dL 08/20/2025 1:30 AM EDT [facility] Lactate, Venous 1.2 0.5 - 2.2 mmol/L 08/20/2025 1:30 AM EDT [facility] pH, Temp Corrected, Venous 7.41 7.32 - 7.43 08/20/2025 1:30 AM EDT [facility] pCO2, Temp Corrected, Venous 49 37 - 52 mm Hg 08/20/2025 1:30 AM EDT [facility] pO2, Temp Corrected, Venous 61(H) 25 - 40 mm Hg 08/20/2025 1:30 AM EDT [facility] Lumber Carrier ID Isaac Escobar 08/20/2025 1:30 AM EDT [facility] Blood, Venous Whole blood specimen / Unknown 08/20/2025 1:29 AM EDT 08/20/2025 1:30 AM EDT us Imelda Geiger MD LAB POINT OF CARE TE ST DOCKED DEVICE UNSOLICITED RESULTS Final Result Performing Organization Address City/[facility] Co de Phone Number [facility] [address] [place] [address] * (ABNORMAL) Cystatin C (08/20/2025 1:20 AM EDT) Only the most recent of3 resultswithin the time period is included. Cystatin C 1.73(H) 0.61 - 0.95 mg/L 08/20/2025 4:11 AM EDT [facility] Blood Venous blood specimen / Unknown Venipuncture / Unknown 08/20/2025 1:20 AM EDT 08/20/2025 1:31 AM EDT us Imelda Geiger MD LAB BLOOD ORDERABLES Final Resul t Performing Organization Address City/[facility]/ZIP Co de Phone Number [facility] [address] [place] [address] * MR Cervical Spine w and wo [...] Per this written report. Drafted by Antony Finnegna MD on 08/19/2025 2:23 PM Final report [...] were present on rounds. us Yeni Landis APRN IN CLINIC/BEDSIDE ORDERAB LES Final Result * Morphology (08/19/2025 1:34 AM EDT) Only the most recent of11 resultswithin the time period is included. RBC Morphology RBC Morphology Consistent with Indices and RDW LAB HEMATOLOGY METHOD 08/19/2025 2:23 AM EDT [facility] Platelet Estimate Platelet smear estimate consistent with automated count LAB HEMATOLOGY METHOD 08/19/2025 2:23 AM EDT [facility] Blood Venous blood specimen / Unknown Venipuncture / Unknown 08/19/2025 1:34 AM EDT 08/19/2025 1:40 AM EDT us Emma Lehman MD LAB BLOOD ORDERABLES Final Resu lt [facility] [address] [place] [address] * LACTIC ACID, VENOUS (08/19/2025 1:34 AM EDT) Lactate, Venous, Whole Blood 1.1 0.5 - 2.2 mmol/L LAB HEMATOLOGY METHOD 08/19/2025 1:44 AM EDT [facility] Blood Venous blood specimen / Unknown Venipuncture / Unknown 08/19/2025 1:34 AM EDT 08/19/2025 1:41 AM EDT Kati Garcia [employer] LAB BLOOD ORDERABLES Final Result [facility] [address] [place] [address] * (ABNORMAL) Manual Differential (08/19/2025 1:34 AM EDT) Only the most recent of8 resultswithin the time period is included. Blasts % 0 % LAB HEMATOLOGY METHOD 08/19/2025 2:23 AM EDT [facility] Promyelocytes % 0 % LAB HEMATOLOGY METHOD 08/19/2025 2:23 AM EDT [facility] Myelocytes % 2 % LAB HEMATOLOGY METHOD 08/19/2025 2:23 AM EDT [facility] Metamyelocytes % 6 % LAB HEMATOLOGY METHOD 08/19/2025 2:23 AM EDT [facility] Neutrophils % 73 % LAB HEMATOLOGY METHOD 08/19/2025 2:23 AM EDT [facility] Lymphocytes % 8 % LAB HEMATOLOGY METHOD 08/19/2025 2:23 AM EDT [facility] Reactive Lymphocytes % 0 % LAB HEMATOLOGY METHOD 08/19/2025 2:23 AM EDT [facility] Monocytes % 4 % LAB HEMATOLOGY METHOD 08/19/2025 2:23 AM EDT [facility] Eosinophils % 7 % LAB HEMATOLOGY METHOD 08/19/2025 2:23 AM EDT [facility] Basophils % 0 % LAB HEMATOLOGY METHOD 08/19/2025 2:23 AM EDT [facility] Blasts Absolute 0.00 10*3/UL LAB HEMATOLOGY METHOD 08/19/2025 2:23 AM EDT [facility] Promyelocytes Absolute 0.00 10*3/uL LAB HEMATOLOGY METHOD 08/19/2025 2:23 AM EDT [facility] Myelocytes Absolute 0.35 10*3/uL LAB HEMATOLOGY METHOD 08/19/2025 2:23 AM EDT [facility] Metamyelocytes Absolute 1.05 10*3/uL LAB HEMATOLOGY METHOD 08/19/2025 2:23 AM EDT [facility] Neutrophils Absolute 12.83(H) 1.60 - 6.10 10*3/uL LAB HEMATOLOGY METHOD 08/19/2025 2:23 AM EDT [facility] Lymphocytes Absolute 1.41 1.20 - 3.90 10*3/uL LAB HEMATOLOGY METHOD 08/19/2025 2:23 AM EDT [facility] Reactive Lymphocytes Absolute 0.00 10*3/uL LAB HEMATOLOGY METHOD 08/19/2025 2:23 AM EDT [facility] Monocytes Absolute 0.70 0.30 - 0.90 10*3/uL LAB HEMATOLOGY METHOD 08/19/2025 2:23 AM EDT [facility] Eosinophils Absolute 1.23(H) 0.00 - 0.50 10*3/uL LAB HEMATOLOGY METHOD 08/19/2025 2:23 AM EDT [facility] Basophils Absolute 0.00 0.00 - 0.10 10*3/uL LAB HEMATOLOGY METHOD 08/19/2025 2:23 AM EDT [facility] Blood Venous blood specimen / Unknown Venipuncture / Unknown 08/19/2025 1:34 AM EDT 08/19/2025 1:40 AM EDT Emma Lehman MD LAB BLOOD ORDERABLES Final Resu lt Performing Organization Address City/[facility] Co de Phone Number [facility] [address] [place] [address] * (ABNORMAL) N-Terminal Probnp (08/18/2025 2:50 PM EDT) Only the most recent of3 resultswithin the time period is included. N-Terminal, PROBNP, Plasma 5,233(H) 0 - 449 pg/mL 08/18/2025 3:27 PM EDT [facility] Blood Venous blood specimen / Unknown Venipuncture / Unknown 08/18/2025 2:50 PM EDT 08/18/2025 3:04 PM EDT Kati Garcia APRN LAB BLOOD ORDERABLES Final Result Performing Organization Address City/[facility]/ZIP Co de Phone Number [facility] [address] [place] [address] * Blood Culture (Aerobic/Anaerobet Set) (08/18/2025 2:50 PM EDT) Only the most recent of6 resultswithin the time period is included. Culture No growth at day 5 08/23/2025 6:01 PM EDT [facility] Blood Structure of right forearm / Unknown Venipuncture / Unknown 08/18/2025 2:50 PM EDT 08/18/2025 3:10 PM EDT Narrative [facility] - 08/23/2025 6:01 PM EDT Low blood volume submitted, results may be compromised us Kati Garcia APRN LAB MICROBIOLOGY - GENERAL ORDERABLES Final Result [facility] [address] [place] [address] * [facility], E/M 30-74 MINUTES (08/18/2025 8:40 AM EDT) Narrative Imelda Geiger MD - 08/18/2025 8:40 AM EDT Imelda Geiger MD 08/18/2025 6:15 PM Critical Care Performed by: Kati Garcia APRN Authorized by: Kati Gacria APRN Critical care provider statement: Critical care [...] 921(H) <14 ng/L 08/18/2025 2:47 AM EDT [facility] Troponin Delta Interpretation Not Calculated 08/18/2025 2:47 AM EDT [facility] Comment:Specimen not collect ed within acceptable timeframe. Delta will not be calculated. Blood Venous blood specimen / Unknown Venipuncture / Unknown 08/18/2025 2:23 AM EDT 08/18/2025 2:28 AM EDT [employer] LAB BLOOD ORDERABLES Fin al Result Performing Organization Address [facility] [place]/[facility] de Phone Number [facility] [address] [place] [address] * Urine Robb Panel (08/18/2025 12:26 AM EDT) Only the most recent of3 resultswithin the time period is included. Pathologist [facility] Extra Reflex urine culture not indicated 08/18/2025 2:01 AM EDT [facility] Urine Urine specimen obtained by clean catch procedure / Unknown Non-blood Collection / Unknown 08/18/2025 12:26 AM EDT 08/18/2025 12:36 AM EDT [employer] LAB URINE ORDERABLES Fin al Result Performing Organization Address [facility] de Phone Number [facility] [address] [place] [address] * Urinalysis Microscopic Examination (08/18/2025 12:26 AM EDT) Only the most recent of3 resultswithin the time period is included. Urine Urine specimen obtained by clean catch procedure / Unknown Non-blood Collection / Unknown 08/18/2025 12:26 AM EDT 08/18/2025 12:36 AM EDT us Nathaniel B [employer] LAB URINE ORDERABLES Fin al Result Performing Organization Address [facility] [place]/[facility] Co de Phone Number [facility] [address] [place] [address] * (ABNORMAL) Troponin T, High Sensitivity, 0 Hour Plasma, Reflex to 2 Hour (08/18/2025 12:26 AM EDT) Only the most recent of2 resultswithin the time period is included. Troponin T, High Sensitivity, 0 Hour 871(H) <14 ng/L 08/18/2025 1:23 AM EDT [facility] Blood Venous blood specimen / Unknown Venipuncture / Unknown 08/18/2025 12:26 AM EDT 08/18/2025 12:36 AM EDT us Nathaniel River [employer] LAB BLOOD ORDERABLES Fin al Result Performing Organization Address [facility]/[facility] Co de Phone Number [facility] [address] [place] [address] * (ABNORMAL) Procalcitonin (08/18/2025 12:26 AM EDT) [...] predict 28 day mortality risk. Please consult [email or web address] for more information. Test performed at [facility]. us Brian Foster MD LAB BLOOD ORDERABLES Final Res ult [facility] [address] [place] [address] * (ABNORMAL) Urinalysis with reflex microscopic (Culture NOT Included) (08/18/2025 12:26 AM EDT) Only the most recent of3 resultswithin the time period is included. Color, Urine Yellow LAB URINALYSIS - AUTOMATED METHOD 08/18/2025 12:54 AM EDT [facility] Clarity, Urine Cloudy LAB URINALYSIS - AUTOMATED METHOD 08/18/2025 12:54 AM EDT [facility] Spec Elbe, Urine 1.015 1.005 - 1.030 LAB URINALYSIS - AUTOMATED METHOD 08/18/2025 12:54 AM EDT [facility] pH, Urine 6.0 5.0 - 8.0 LAB URINALYSIS - AUTOMATED METHOD 08/18/2025 12:54 AM EDT [facility] Protein, Urine 100(A) Negative mg/dL LAB URINALYSIS - AUTOMATED METHOD 08/18/2025 12:54 AM EDT [facility] Glucose, Urine Negative Negative mg/dL LAB URINALYSIS - AUTOMATED METHOD 08/18/2025 12:54 AM EDT [facility] Ketones, Urine Negative Negative mg/dL LAB URINALYSIS - AUTOMATED METHOD 08/18/2025 12:54 AM EDT [facility] Blood, Urine Large(A) Negative LAB URINALYSIS - AUTOMATED METHOD 08/18/2025 12:54 AM EDT [facility] Bilirubin, Urine Negative Negative LAB URINALYSIS - AUTOMATED METHOD 08/18/2025 12:54 AM EDT [facility] Urobilinogen, Urine 0.2 0.2 to 1.0 mg/dL LAB URINALYSIS - AUTOMATED METHOD 08/18/2025 12:54 AM EDT [facility] Leukocytes, Urine Trace(A) Negative LAB URINALYSIS - AUTOMATED METHOD 08/18/2025 12:54 AM EDT [facility] Nitrite, Urine Negative Negative LAB URINALYSIS - AUTOMATED METHOD 08/18/2025 12:54 AM EDT [facility] RBC, Urine 31 - 50(A) 0 to 3 /HPF 08/18/2025 12:54 AM EDT [facility] Comment:This result was prev iously suppressed from the chart. WBC, Urine 0 - 5 0 to 5 /HPF 08/18/2025 12:54 AM EDT [facility] Comment:This result was prev iously suppressed from the chart. Squamous Epithelial Cells >20(A) 0 to 5 /HPF 08/18/2025 12:54 AM EDT [facility] Comment:This result was prev iously suppressed from the chart. Hyaline Casts 0 - 2 0 to 5 /LPF 08/18/2025 12:54 AM EDT [facility] Comment:This result was prev iously suppressed from the chart. Bacteria, Urine Present Negative 08/18/2025 12:54 AM EDT [facility] Comment:This result was prev iously suppressed from the chart. Renal Tubular Cells Present Absent 08/18/2025 12:54 AM EDT [facility] Comment:This result was prev iously suppressed from the chart. Granular Casts Present Absent 08/18/2025 12:54 AM EDT [facility] Comment:This result was prev iously suppressed from the chart. Amorphous Crystals Present Absent 08/18/2025 12:54 AM EDT [facility] Comment:This result was prev iously suppressed from the chart. Urine Urine specimen obtained by clean catch procedure / Unknown Non-blood Collection / Unknown 08/18/2025 12:26 AM EDT 08/18/2025 12:36 AM EDT Narrative [facility] - 08/18/2025 12:54 AM EDT Performed by manual method Nathaniel River APRN LAB URINE ORDERABLES Fin al Result [facility] [address] [place] [address] * Cortisol (08/18/2025 12:26 AM EDT) Cortisol 11.60 Before 10am: 3.7 - 19.4. After 5pm: 2.9 - 17.3 ug/dL 08/18/2025 4:54 AM EDT [facility] Comment:Testing performed on Krossover, standardized against ASSISTED Reference Standard concentration values assigned by LC-MS/MS and verified by BCR 192 and BCR 193 certified reference materials. Blood Venous blood specimen / Unknown Venipuncture / Unknown 08/18/2025 12:26 AM EDT 08/18/2025 12:36 AM EDT us Nathaniel River APRN LAB REF LAB BLOOD AND FL UID ORD Final Result [facility] [address] [place] [address] * [facility], E/M 30-74 MINUTES (08/17/2025 10:29 [...] Detected Not Detected 08/17/2025 9:18 PM EDT [facility] Swab Both anterior nares / Unknown Non-blood Collection / Unknown 08/17/2025 5:44 PM EDT 08/17/2025 5:50 PM EDT Narrative [facility] - 08/17/2025 9:18 PM EDT [...] MICROBIOLOGY - GENERA L ORDERABLES Final Result [facility] [address] [place] [address] * (ABNORMAL) Blood gas panel, venous (08/17/2025 11:54 AM EDT) Only the most recent of4 resultswithin the time period is included. Pathologist [facility] pH, Venous 7.45(H) 7.32 - 7.43 LAB HEMATOLOGY METHOD 08/17/2025 11:54 AM EDT [facility] pCO2, Venous 43 37 - 52 mmHg LAB HEMATOLOGY METHOD 08/17/2025 11:54 AM EDT [facility] pO2, Venous 51(H) 25 - 40 mmHg LAB HEMATOLOGY METHOD 08/17/2025 11:54 AM EDT [facility] SO2, Measured, Venous 86(H) 65 - 80 % LAB HEMATOLOGY METHOD 08/17/2025 11:54 AM EDT [facility] Base Excess, Venous 5.4(H) -2.0 - 3.0 mmol/L LAB HEMATOLOGY METHOD 08/17/2025 11:54 AM EDT [facility] Bicarbonate, Calculated, Venous 30(H) 22 - 26 mmol/L LAB HEMATOLOGY METHOD 08/17/2025 11:54 AM EDT [facility] Hematocrit, Whole Blood 23.6(L) 34.0 - 45.0 % LAB HEMATOLOGY METHOD 08/17/2025 11:54 AM EDT [facility] Sodium, Whole Blood 132(L) 136 - 145 mmol/L LAB HEMATOLOGY METHOD 08/17/2025 11:54 AM EDT [facility] Potassium, Whole Blood 3.8 3.6 - 4.9 mmol/L LAB HEMATOLOGY METHOD 08/17/2025 11:54 AM EDT [facility] Chloride, Whole Blood 99 97 - 107 mmol/L LAB HEMATOLOGY METHOD 08/17/2025 11:54 AM EDT [facility] Glucose, Whole Blood 112(H) 74 - 99 mg/dL LAB HEMATOLOGY METHOD 08/17/2025 11:54 AM EDT [facility] Lactate, Venous, Whole Blood 1.7 0.5 - 2.2 mmol/L LAB HEMATOLOGY METHOD 08/17/2025 11:54 AM EDT [facility] Ionized Calcium, Whole Blood 4.7 4.6 - 5.1 mg/dL LAB HEMATOLOGY METHOD 08/17/2025 11:54 AM EDT [facility] Blood Venous blood specimen / Unknown 08/17/2025 11:51 AM EDT us Shantel Bashir MD LAB BLOOD ORDERABLES Rosa Maria driscoll Result [facility] [address] [place], [place] [id number] * (ABNORMAL) Bacterial ID Gram Positive (08/17/2025 11:47 AM EDT) [facility] Staphylococcus Result Detected( A) Not Detected 08/18/2025 7:27 AM EDT [facility] Comment:Assess if contaminan t or clinically relevant pathogen. Consider clinical stability and immune status of patient. Staphylococcus epidermidis Result Detected( A) Not Detected 08/18/2025 7:27 AM EDT [facility] Comment:Assess if contaminan t or clinically relevant pathogen. Consider clinical stability and immune status of patient. MECA Result Detected( A) Not Detected 08/18/2025 7:27 AM EDT [facility] Blood Structure of antecubital vein / Unknown Venipuncture / Unknown 08/17/2025 11:47 AM EDT 08/17/2025 12:10 PM EDT Narrative [facility] - 08/18/2025 7:27 AM EDT Analytes [...] Value: Not detected for all analytes tested. Shantel Bashir MD LAB MICROBIOLOGY - GENERA L ORDERABLES Final Result [facility] [address] [place] [address] * HMGCR AB IGG (SO) (08/17/2025 5:07 AM EDT) Only the most recent of2 resultswithin the time period is included. HMGCR ANTIBODY, IGG <3 0 - 19 Units 08/25/2025 6:48 PM EDT [facility]) Blood Venous blood specimen / Unknown Venipuncture / Unknown 08/17/2025 5:07 AM EDT 08/17/2025 5:20 AM EDT Narrative [facility]) - 08/25/2025 6:48 PM EDT INTERPRETIVE INFORMATION: HMGCR Antibody, IgG IgG antibodies to 9-axiwyiv-5-methylglutaryl-coenzyme A reductase (HMGCR) are mainly associated with necrotizing autoimmune myopathy (NAM) in a subset of statin-treated patients. Although infrequent, these antibodies may also be observed in statin-naive patients with NAM. Strong clinical correlation is recommended in the absence of muscle fiber necrosis, elevated serum creatine kinase, perimysial pathology, and/or statin exposure. This test was developed and its performance characteristics determined by [facility] [employer]. It has not been cleared or approved by the [place] Food and Drug Administration. This test was performed in a CLIA certified laboratory and is intended for clinical purposes. Performed By: [facility] [address] [place] [address] Varnisher Apprentice: Esvin Pat MD, PhD CLIA Number: [id number] us Shantel Bashir MD LAB BLOOD ORDERABLES Rosa Maira driscoll Result [facility] [address] [place] [address] * MR Tibia Fibula Left wo IV [...] Per this written report. Drafted by Aleida Bliar MD on 2025 7:43 AM Final report [...] multiecho sequences were obtained utilizing T1 and [id number] without the administration of intravenous contrast. The [...] foreleg and distal thigh is. There are [id number] pockets of fluid superficially along the skin [...] multiecho sequences were obtained utilizing T1 and T1xejuqwbce without the administration of intravenous contrast. The [...] foreleg and distal thigh is. There are T1mmunhwftgddl pockets of fluid superficially along the skin [...] is no recent study available for direct zgod-cu-imjs comparison. Left Ventricle The left ventricle is [...] is no recent study available for direct jlnc-gu-xpar comparison. us Shantel Bashir MD CV ECHO [...] abdomen and pelvis dated 08/09/2025 FINDINGS: Limited yrsns-sm-ogln abdominal radiograph for the purpose of locating tube position. The tip of the feeding tube is in the proximal duodenum. An NG tube is not visualized. Procedure Note Crow Redding MD - 08/15/2025 CLINICAL INDICATION: Ensure NG in correct location TECHNIQUE: Supine radiograph of the abdomen. COMPARISON: CTA abdomen and pelvis dated 08/09/2025 FINDINGS: Limited pjudq-jb-afzv abdominal radiograph for the purpose of locatingtube position. The tip of the feeding tube is in the proximal duodenum. An NG tube is not visualized. IMPRESSION: The tip of the feeding tube is in the proximal duodenum. CRITICAL RESULT: No. COMMUNICATION: Per this written report. By electronically signing this report, I, the attending physician, attivanthat I have personally reviewed the images/data for the aboveexamination(s) and agree with the final edited report. Drafted by Shane Hobson III, MD on 08/15/2025 2:06 PM Final report signed by Crow Redding MD on 08/15/2025 3:11 PM Shantel Bashir MD IMG XR PROCEDURES Final R esult * Light Green Top (08/15/2025 3:03 AM EDT) Pathologist [facility] Extra Hold for add-ons 08/15/2025 8:02 AM EDT [facility] Comment:Auto resulted. Blood Venous blood specimen / Unknown 08/15/2025 3:03 AM EDT 08/15/2025 5:11 AM EDT Shantel Bashir MD LAB BLOOD ORDERABLES Rosa Maria l Result [facility] [address] [place] [address] * Human Immunodeficiency Virus (HIV-1) Quantitative PCR (08/12/2025 5:12 PM EDT) Pathologist [facility] Human Immunodeficiency Virus (HIV-1) Quant Interpretation Not Detected Not Detected 08/15/2025 9:44 PM EDT [facility] Blood Venous blood specimen / Unknown Venipuncture / Unknown 08/12/2025 5:12 PM EDT 08/12/2025 5:17 PM EDT Narrative [facility] - 08/15/2025 9:44 PM EDT [...] vectors as false positives may be seen. us Shantel Bashir MD LAB BLOOD ORDERABLES Rosa Maria driscoll Result [facility] [address] [place] [address] * (ABNORMAL) [facility] B VIRUS AB (SO) (08/12/2025 1:12 PM EDT) [facility] TYPE B2 1:10 <1:10 08/21/2025 3:36 PM EDT [facility] ([employer]) [facility] TYPE B3 1:160(H) <1:10 08/21/2025 3:36 PM EDT [facility] ([employer]) [facility] TYPE B1 <1:10 <1:10 08/21/2025 3:36 PM EDT [facility] ([employer]) [facility] TYPE B4 1:20 <1:10 08/21/2025 3:36 PM EDT [facility] ([employer]) [facility] TYPE B5 <1:10 <1:10 08/21/2025 3:36 PM EDT [facility] ([employer]) [facility] TYPE B6 <1:10 <1:10 08/21/2025 3:36 PM EDT [facility] ([employer]) Venous blood specimen / Unknown 08/12/2025 1:12 PM EDT 08/12/2025 1:13 PM EDT Narrative [facility] ([employer]) - 08/21/2025 3:36 PM EDT INTERPRETIVE INFORMATION: Coxsackie B Virus Single positive antibody titers of greater than or equal to 1:80 may indicate past or current infection. Sero- conversion or an increase in titers between acute and convalescent sera of at least fourfold is considered strong evidence of current or recent infection. Performed By: [facility] [address] [place] [address] Varnisher Apprentice: Esvin Pat MD, PhD CLIA Number: [id number] us Shantel Bashir MD LAB BLOOD ORDERABLES Rosa Maria yamila Result [facility] ([facility]) [address] [place] [address] * Coxsackie A Virus Antibody (08/12/2025 12:07 PM EDT) [facility] A2 ANTIBODY <1:8 08/23/2025 4:50 PM EDT [facility] ([facility]) [facility] A4 ANTIBODY <1:8 08/23/2025 4:50 PM EDT [facility] ([facility]) [facility] A7 ANTIBODY <1:8 08/23/2025 4:50 PM EDT [facility] ([facility]) [facility] A9 ANTIBODY <1:8 08/23/2025 4:50 PM EDT [facility] ([facility]) [facility] A10 ANTIBODY <1:8 08/23/2025 4:50 PM EDT [facility] ([facility]) [facility] A16 ANTIBODY <1:8 08/23/2025 4:50 PM EDT [facility] ([facility]) Blood Venous blood specimen / Unknown Venipuncture / Unknown 08/12/2025 12:07 PM EDT 08/12/2025 1:13 PM EDT Narrative [facility] ([facility]) - 08/23/2025 4:50 PM EDT REFERENCE RANGE: [...] analytical performance characteristics have been determined by [facility]. It has not been cleared or approved by FDA. This assay has been validated pursuant to the CLIA regulations and is used for clinical purposes. Performed at [facility], [address] [place] [address], Kaylah Álvarez MD, Ph.D, Director, [facility] [id number] Result [facility] Shantel Bashir MD LAB BLOOD ORDERABLES Rosa Maria l Result [facility] ([facility]) [address] [place] [id number] * Urea nitrogen, urine (08/12/2025 9:15 AM EDT) Urea Nitrogen, Urine 794 mg/dL 08/12/2025 12:37 PM EDT [facility] Urine Urine specimen obtained by clean catch procedure / Unknown Non-blood Collection / Unknown 08/12/2025 9:15 AM EDT 08/12/2025 9:21 AM EDT Result [facility] Shantel Bashir MD LAB URINE ORDERABLES Rosa Maria l Result Performing Organization Address City/[facility]/ZIP Co de Phone Number [facility] [address] [place] [address] * Osmolality, urine (08/12/2025 9:15 AM EDT) Osmolality, Urine 488 50 - 1,200 mOsm/kg 08/12/2025 12:15 PM EDT [facility] Urine Urine specimen obtained by clean catch procedure / Unknown Non-blood Collection / Unknown 08/12/2025 9:15 AM EDT 08/12/2025 9:21 AM EDT Result [facility] Shantel Bashir MD LAB URINE ORDERABLES Rosa Maria l Result [facility] [address] [place] [address] * Creatinine, urine, random (08/12/2025 9:15 AM EDT) Creatinine, Urine 50 mg/dL 08/12/2025 9:45 AM EDT [facility] Urine Urine specimen obtained by clean catch procedure / Unknown Non-blood Collection / Unknown 08/12/2025 9:15 AM EDT 08/12/2025 9:21 AM EDT Shantel Bashir MD LAB URINE ORDERABLES Rosa Maria l Result Performing Organization Address City/[facility] Co de Phone Number [facility] [address] [place] [address] * (ABNORMAL) Osmolality (08/12/2025 5:22 AM EDT) Osmolality, Serum 270(L) 275 - 295 mOsm/Kg 08/12/2025 11:53 AM EDT [facility] Blood Venous blood specimen / Unknown Venipuncture / Unknown 08/12/2025 5:22 AM EDT 08/12/2025 5:35 AM EDT Shantel Bashir MD LAB BLOOD ORDERABLES Rosa Maria l Result Performing Organization Address [facility] de Phone Number [facility] [address] [place] [address] * (ABNORMAL) BETA HYDROXYBUTYRIC ACID (08/10/2025 7:58 PM EDT) Beta-Hydroxybu tyric Acid, Plasma 1.61(H) <=0.27 mmol/L 08/10/2025 8:39 PM EDT [facility] Blood Venous blood specimen / Unknown Venipuncture / Unknown 08/10/2025 7:58 PM EDT 08/10/2025 8:15 PM EDT Emma Lehman MD LAB BLOOD ORDERABLES Final Resu lt Performing Organization Address [facility] Co de Phone Number [facility] [address] [place] [address] * XR Foot Right 3+ Views (08/09/2025 [...] Radha Mcmahon MD on 08/09/2025 4:58 PM Emma Lehman MD [facility] US PROCEDURES Final Result * (ABNORMAL) Peripheral Blood Smear (08/09/2025 2:42 PM EDT) WBC Count 10.21 3.70 - 10.30 10*3/uL LAB HEMATOLOGY METHOD 08/09/2025 3:46 PM EDT [facility] RBC Count 3.31(L) 3.90 - 5.20 10*6/uL LAB HEMATOLOGY METHOD 08/09/2025 3:46 PM EDT [facility] HGB 10.0(L) 11.2 - 15.7 g/dL LAB HEMATOLOGY METHOD 08/09/2025 3:46 PM EDT [facility] HCT 28.5(L) 34.0 - 45.0 % LAB HEMATOLOGY METHOD 08/09/2025 3:46 PM EDT [facility] Platelet Count 397(H) 155 - 369 10*3/uL LAB HEMATOLOGY METHOD 08/09/2025 3:46 PM EDT [facility] MCV 86 79 - 98 fL LAB HEMATOLOGY METHOD 08/09/2025 3:46 PM EDT [facility] MCH 30.2 26.0 - 32.0 pg LAB HEMATOLOGY METHOD 08/09/2025 3:46 PM EDT [facility] MCHC 35.1 30.7 - 35.5 g/dL LAB HEMATOLOGY METHOD 08/09/2025 3:46 PM EDT [facility] RDW 12.5 11.5 - 14.5 % LAB HEMATOLOGY METHOD 08/09/2025 3:46 PM EDT [facility] MPV 9.8 8.8 - 12.5 fL LAB HEMATOLOGY METHOD 08/09/2025 3:46 PM EDT [facility] nRBC 0.3(H) <=0.0 per 100 WBCs LAB HEMATOLOGY METHOD 08/09/2025 3:46 PM EDT [facility] Differential Type Automated LAB HEMATOLOGY METHOD 08/09/2025 3:46 PM EDT [facility] Neutrophils % 75 % LAB HEMATOLOGY METHOD 08/09/2025 3:46 PM EDT [facility] Lymphocytes % 10 % LAB HEMATOLOGY METHOD 08/09/2025 3:46 PM EDT [facility] Monocytes % 8 % LAB HEMATOLOGY METHOD 08/09/2025 3:46 PM EDT [facility] Eosinophils % 4 % LAB HEMATOLOGY METHOD 08/09/2025 3:46 PM EDT [facility] Basophils % 0 % LAB HEMATOLOGY METHOD 08/09/2025 3:46 PM EDT [facility] Immature Granulocytes % 3 % LAB HEMATOLOGY METHOD 08/09/2025 3:46 PM EDT [facility] Neutrophils Absolute 7.56(H) 1.60 - 6.10 10*3/uL LAB HEMATOLOGY METHOD 08/09/2025 3:46 PM EDT [facility] Lymphocytes Absolute 1.02(L) 1.20 - 3.90 10*3/uL LAB HEMATOLOGY METHOD 08/09/2025 3:46 PM EDT [facility] Monocytes Absolute 0.83 0.30 - 0.90 10*3/uL LAB HEMATOLOGY METHOD 08/09/2025 3:46 PM EDT [facility] Eosinophils Absolute 0.44 0.00 - 0.50 10*3/uL LAB HEMATOLOGY METHOD 08/09/2025 3:46 PM EDT [facility] Basophils Absolute 0.03 0.00 - 0.10 10*3/uL LAB HEMATOLOGY METHOD 08/09/2025 3:46 PM EDT [facility] Immature Granulocytes Absolute 0.33(H) 0.00 - 0.06 10*3/uL LAB HEMATOLOGY METHOD 08/09/2025 3:46 PM EDT [facility] Blood Venous blood specimen / Unknown Venipuncture / Unknown 08/09/2025 2:42 PM EDT 08/09/2025 2:49 PM EDT Narrative [facility] - 08/09/2025 3:46 PM EDT Therapeutic decision making should be based on absolute values, rather than percentages. Emma Lehman MD LAB PATHOLOGY ORDERABLES Final Result Performing Organization Address [facility] de Phone Number [facility] [address] [place] [address] * Peripheral blood smear, pathologist interpretation (08/09/2025 2:42 PM EDT) Clinical Diagnosis, Peripheral Smear anemia LAB HEMATOLOGY METHOD 08/10/2025 3:02 PM EDT [facility] Interpretation , Peripheral Smear Anemia with polychromasia and rare nucleated red blood cells Neutrophilia with increased immature granulocytes (left shift) Platelets with unremarkable morphology 08/10/2025 3:02 PM EDT [facility] Pathologist Signature, Peripheral Smear 08/10/2025 3:02 PM EDT [facility] Comment:Reviewed by: Marilynn Peralta MD LAB CP ASR DISCLAIMER No 08/10/2025 3:02 PM EDT [facility] Blood Venous blood specimen / Unknown Venipuncture / Unknown 08/09/2025 2:42 PM EDT 08/09/2025 2:49 PM EDT Emma Lehman MD LAB PATHOLOGY ORDERABLES Final Result Performing Organization Address City/[facility] Co de Phone Number [facility] [address] [place] [address] * Streptococcus pneumoniae and Legionella Urinary Antigen (08/09/2025 11:58 AM EDT) Legionella pneumophila serogroup 1 Antigen Result (Urine) Negative Negative 08/10/2025 6:50 AM EDT [facility] Streptococcus pneumoniae Antigen Result (Urine) Negative Negative 08/10/2025 6:50 AM EDT [facility] Urine Urine specimen obtained by clean catch procedure / Unknown Non-blood Collection / Unknown 08/09/2025 11:58 AM EDT 08/09/2025 12:11 PM EDT Emma Lehman MD LAB MICROBIOLOGY - GENERAL ORDE RABLES Final Result [facility] [address] [place] [address] * PCCA/DARNELL BY IFA, SERUM (08/09/2025 11:46 AM EDT) Pathologist [facility] Purkinje Cell/Neuronal Nuclear IgG Screen None Detected None Detected 08/13/2025 10:38 PM EDT [facility] ([facility]) Blood Venous blood specimen / Unknown Venipuncture / Unknown 08/09/2025 11:46 AM EDT 08/09/2025 12:13 PM EDT Narrative [facility] ([facility]) - 08/13/2025 10:38 PM EDT DARNELL-1, DARNELL-2, PCCA-1 or PCCA-Tr(DNER) antibodies not detected. No further testing will be performed. INTERPRETIVE INFORMATION: Purkinje Cell/Neuronal Nuclear IgG Scrn This test was developed and its performance characteristics determined by [facility]. It has not been cleared or approved by the US Food and Drug Administration. This test was performed in a CLIA certified laboratory and is intended for clinical purposes. Performed By: [facility] [address] [place] [address] Varnisher Apprentice: Esvin Pat MD, PhD CLIA Number: [id number] us Emma Lehman MD LAB BLOOD ORDERABLES Final Resu lt Performing Organization Address City/[facility]/ZIP Co de Phone Number [facility] ([facility]) [address] [place] [address] * Tissue Transglutaminase (tTG) Ab, IgA (SO) (08/09/2025 11:46 AM EDT) Tissue Transglutaminase (tTG) Ab, IgA <1.02 0.00 - 4.99 FLU 08/11/2025 1:57 AM EDT [facility]) Blood Venous blood specimen / Unknown Venipuncture / Unknown 08/09/2025 11:46 AM EDT 08/09/2025 12:13 PM EDT Narrative [facility] [employer]) - 08/11/2025 1:57 AM EDT INTERPRETIVE INFORMATION: [...] indicate a response to therapy. Performed By: [facility] [address] [place] [address] Varnisher Apprentice: Esvin Pat MD, PhD CLIA Number: [id number] us Emma Lehman MD LAB REF LAB BLOOD AND FLUID ORD Final Result [facility]) [address] [place] [id number] * Wilbert Ambrosio Virus (EBV) Quantitative PCR (08/09/2025 11:46 AM EDT) Pathologist [facility] Wilbert Ambrosio Virus, Blood, Quant DNA Interpretation Not Detected Not Detected 08/11/2025 12:06 PM EDT [facility] Blood Venous blood specimen / Unknown Venipuncture / Unknown 08/09/2025 11:46 AM EDT 08/09/2025 12:13 PM EDT Narrative [facility] - 08/11/2025 12:06 PM EDT [...] developed and it's performance characteristics determined by [facility] as appropriate for clinical purposes. [...] developed and it's performance characteristics determined by [facility] as appropriate for clinical purposes. This assay has not been cleared or approved by the FDA, but is performed in a CLIA regulated laboratory that is qualified to perform high-complexity testing. us Emma Lehman MD LAB BLOOD ORDERABLES Final Resu lt [facility] [address] [place] [id number] * (ABNORMAL) NEURONAL NUCLEAR ANTIBODIES (HU, RI, YO, TR/DNER) IGG BY IMMUNOBLOT, SERUM (SO) (08/09/2025 11:46 AM EDT) Purkinje Cell Ab (Yo) IgG, IB, Ser High Positive(A) Negative 08/12/2025 1:50 PM EDT [facility] ([employer]) Purkinje Cell Ab (TR/DNER) IgG, IB, Ser Negative Negative 08/12/2025 1:50 PM EDT [facility] ([employer]) Neuronal Nuclear Ab (Ri) IgG, IB, Serum Negative Negative 08/12/2025 1:50 PM EDT [facility] ([employer]) Neuronal Nuclear Ab (Hu) IgG, IB, Serum Negative Negative 08/12/2025 1:50 PM EDT [facility] ([facility]) Blood Venous blood specimen / Unknown Venipuncture / Unknown 08/09/2025 11:46 AM EDT 08/09/2025 12:13 PM EDT Narrative [facility]) - 08/12/2025 1:50 PM EDT INTERPRETIVE INFORMATION: [...] developed and its performance characteristics determined by [facility] [employer]. It has not been cleared or approved by the US Food and Drug Administration. This test was performed in a CLIA certified laboratory and is intended for clinical purposes. INTERPRETIVE INFORMATION: Neuronal Nuclear Ab (Ri) IgG, IB, Serum This test was developed and its performance characteristics determined by [facility] [employer] [facility] [employer]. It has not been cleared or approved by the US Food and Drug Administration. This test was performed in a CLIA certified laboratory and is intended for clinical purposes. Yo antibody detected, therefore PCCA/DARNELL by IFA with reflex to titer to be performed. INTERPRETIVE INFORMATION: Purkinje Cell Ab (Yo) IgG, IB, Ser This test was developed and its performance characteristics determined by [facility] [employer]. It has not been cleared or approved by the US Food and Drug Administration. This test was performed in a CLIA certified laboratory and is intended for clinical purposes. INTERPRETIVE INFORMATION: Purkinje Cell Ab (TR/DNER) IgG, IB, Ser This test was developed and its performance characteristics determined by [facility] [employer]. It has not been cleared or approved by the US Food and Drug Administration. This test was performed in a CLIA certified laboratory and is intended for clinical purposes. Performed By: [facility] [address] [place] [address] Varnisher Apprentice: Esvin Pat MD, PhD CLIA Number: [id number] Emma Lehman MD LAB BLOOD ORDERABLES Final Resu lt Performing Organization Address [facility]/ZIP Co de Phone Number [facility] ([facility]) [address] [place] [address] * Cytomegalovirus (CMV) Quantitative PCR (08/09/2025 11:46 AM EDT) [facility] Cytomegalovirus (CMV) Quantitative Interpretation Not Detected Not Detected 08/12/2025 7:44 AM EDT [facility] Blood Venous blood specimen / Unknown Venipuncture / Unknown 08/09/2025 11:46 AM EDT 08/09/2025 12:12 PM EDT Narrative [facility] - 08/12/2025 7:44 AM EDT The Elizalde M2000 CMV test is a Real Time [...] ORDERABLES Final Resu lt Performing Organization Address City/[facility]/ZIP Co de Phone Number [facility] [address] [place] [address] * IG Profile (08/09/2025 11:46 AM EDT) Pathologist [facility] IGA 87 75 - 400 mg/dL 08/09/2025 1:58 PM EDT [facility] IGG 910 720 - 1,589 mg/dL 08/09/2025 1:58 PM EDT [facility] IGM 46 35 - 225 mg/dL 08/09/2025 1:58 PM EDT [facility] Blood Venous blood specimen / Unknown Venipuncture / Unknown 08/09/2025 11:46 AM EDT 08/09/2025 12:13 PM EDT Emma Lehman MD LAB BLOOD ORDERABLES Final Resu lt [facility] [address] [place] [address] * HIV 1 & 2 Antibody/Antigen Screen (08/09/2025 11:46 AM EDT) Pathologist [facility] HIV 1 & 2 Antibody/Antigen Screen Non Reactive Non Reactive 08/09/2025 12:51 PM EDT [facility] Comment:Screening for HIV 1 & 2 antibodies, and P24 antigen is NONREACTIVE. No confirmatory testing is required. Blood Venous blood specimen / Unknown Venipuncture / Unknown 08/09/2025 11:46 AM EDT 08/09/2025 12:13 PM EDT Emma Lehman MD LAB BLOOD ORDERABLES Final Resu lt [facility] [address] [place] [address] * (ABNORMAL) Fczee-7-Isbvpzjohhn Enzyme Concentration (SO) (08/09/2025 11:46 AM EDT) ALPHA 1 ANTITRYPSIN 327(H) 90 - 200 mg/dL 08/10/2025 9:21 PM EDT [facility] ([facility]) Blood Venous blood specimen / Unknown Venipuncture / Unknown 08/09/2025 11:46 AM EDT 08/09/2025 12:13 PM EDT Narrative [facility]) - 08/10/2025 9:21 PM EDT To convert to umol/L, multiply mg/dL by 0.185 Performed By: [facility] [address] [place] [address] Varnisher Apprentice: Esvin Pat MD, PhD CLIA Number: [id number] us Emma Lehman MD LAB BLOOD ORDERABLES Final Resu lt [facility] [email or web address] ([employer]) [address] [place] [address] * Anti-scleroderma antibody (08/09/2025 11:46 AM EDT) Pathologist [facility] SCLERODERMA (SCL-70) (PAPA) ANTIBODY, IGG 0 0 - 40 AU/mL 08/11/2025 8:57 PM EDT [facility] ([employer]) Blood Venous blood specimen / Unknown Venipuncture / Unknown 08/09/2025 11:46 AM EDT 08/09/2025 12:13 PM EDT Narrative [facility] ([employer]) - 08/11/2025 8:57 PM EDT INTERPRETIVE INFORMATION: [...] testing for centromere, RNA polymerase III and U3-BLOCK LAYER, PM/Scl, or Th/To antibodies. Performed By: [facility] [address] [place] [address] Varnisher Apprentice: Esvin Pat MD, PhD CLIA Number: [id number] Emma Lehman MD LAB BLOOD ORDERABLES Final Resu lt [facility] [employer]) [address] [place] [address] * Ceruloplasmin (08/09/2025 11:46 AM EDT) Pathologist [facility] Ceruloplasmin 36 20 - 60 mg/dL 08/12/2025 1:04 AM EDT [facility] Blood Venous blood specimen / Unknown Venipuncture / Unknown 08/09/2025 11:46 AM EDT 08/09/2025 12:13 PM EDT Emma Lehman MD LAB BLOOD ORDERABLES Final Resu lt [facility] [address] [place] [address] * Double-Stranded DNA (dsDNA) Antibody, IgG by IFA (08/09/2025 11:46 AM EDT) Double-Strande d DNA (dsDNA) Ab IgG IFA <1:10 <1:10 08/12/2025 2:40 PM EDT [facility]) Blood Venous blood specimen / Unknown Venipuncture / Unknown 08/09/2025 11:46 AM EDT 08/09/2025 12:13 PM EDT Narrative [facility]) - 08/12/2025 2:40 PM EDT INTERPRETIVE INFORMATION: [...] recommendations for testing may be found at [email or web address]. Performed By: [facility] [address] [place] [address] Varnisher Apprentice: Esvin Pat MD, PhD CLIA Number: [id number] Emma Lehman MD LAB BLOOD ORDERABLES Final Resu lt Performing Organization Address [facility] de Phone Number [facility] ([facility]) [address] [place] [address] * (ABNORMAL) Aldolase (08/09/2025 11:46 AM EDT) ALDOLASE 219.0(H) 1.2 - 7.6 U/L 08/10/2025 9:28 PM EDT [facility] ([facility]) Blood Venous blood specimen / Unknown Venipuncture / Unknown 08/09/2025 11:46 AM EDT 08/09/2025 12:13 PM EDT Narrative [facility] ([facility]) - 08/10/2025 9:28 PM EDT REFERENCE INTERVAL: Aldolase Access complete set of age- and/or gender-specific reference intervals for this test in the [facility] Test Directory ([employer]). Performed By: [facility] [address] [place] [address] Varnisher Apprentice: Esvin Pat MD, PhD CLIA Number: [id number] Emma Lehman MD LAB BLOOD ORDERABLES Final Resu lt Performing Organization Address [facility] Co de Phone Number [facility] [employer] [address] [place] [address] * Rheumatoid factor, Plasma (08/09/2025 11:46 AM EDT) Rheumatoid Factor, Plasma <10 <14 IU/mL 08/09/2025 1:58 PM EDT [facility] Blood Venous blood specimen / Unknown Venipuncture / Unknown 08/09/2025 11:46 AM EDT 08/09/2025 12:13 PM EDT us Emma Lehman MD LAB BLOOD ORDERABLES Final Resu lt [facility] [address] [place] [address] * Antinuclear Antibody (BINH) with HEp-2 Substrate, IgG by IFA (08/09/2025 11:46 AM EDT) BINH INTERPRETIVE COMMENT See Note 08/13/2025 3:07 PM EDT [facility] ([employer]) Anti Nuc Ab Screen <1:80 <1:80 08/13/2025 3:07 PM EDT [facility] ([employer]) Blood Venous blood specimen / Unknown Venipuncture / Unknown 08/09/2025 11:46 AM EDT 08/09/2025 12:13 PM EDT Narrative [facility] ([employer]) - 08/13/2025 3:07 PM EDT Clinical [...] not necessarily rule out SARD. Performed By: [facility] [address] [place] [address] Varnisher Apprentice: Esvin Pat MD, PhD CLIA Number: [id number] us Emma Lehman MD LAB BLOOD ORDERABLES Final Resu lt [facility] ([facility]) [address] [place] [address] * SARS CoV-2/COVID-19 by PCR (08/09/2025 11:45 AM EDT) SARS CoV-2/COVID-1 9 RNA PCR Result Not Detected Not Detected 08/10/2025 3:03 PM EDT [facility] Swab Nasopharyngeal structure / Unknown Non-blood Collection / Unknown 08/09/2025 11:45 AM EDT 08/09/2025 12:11 PM EDT Narrative [facility] - 08/10/2025 3:03 PM EDT [...] testing. This test was performed using the [employer] SARS CoV-2 assay, a PCR-based method. Negative results should be considered presumptive and do not preclude current or future infection obtained through community transmission or other exposures. Negative results must be considered in the context of an individual's recent exposures, history, presence of clinical signs and symptoms consistent with COVID-19. Emma Lehman MD LAB MICROBIOLOGY - [facility] Final Result [facility] [address] [place] [address] * Nasopharyngeal Respiratory Panel (08/09/2025 11:45 AM EDT) Nasopharyngeal Respiratory PCR Interpretation Not Detected for all analytes Not Detected for all analytes 08/09/2025 5:51 PM EDT [facility] Swab Nasopharyngeal structure / Unknown Non-blood Collection / Unknown 08/09/2025 11:45 AM EDT 08/09/2025 12:11 PM EDT Narrative [facility] - 08/09/2025 5:51 PM EDT [...] Respiratory PCR Panel is performed using the [employer] ePlex instrument. This test is FDA approved for use with Nasopharyngeal swabs only. This test is used for clinical purposes. It should not be regarded as investigational or for research. The [facility] Clinical Microbiology Laboratory is certified under the Clinical Laboratory Improvement Amendments of 1988 (CLIA-88) as qualified to perform high complexity clinical laboratory testing. Emma Lehman MD LAB MICROBIOLOGY - [facility] Final Result [facility] [address] [place] [address] * TSH Reflex FT4 (08/09/2025 5:24 AM EDT) Pathologist [facility] Thyroid Stimulating Hormone, Plasma 0.55 0.40 - 4.20 uIU/mL 08/09/2025 10:17 AM EDT [facility] Blood Venous blood specimen / Unknown Venipuncture / Unknown 08/09/2025 5:24 AM EDT 08/09/2025 5:35 AM EDT Narrative [facility] - 08/09/2025 10:17 AM EDT Trimester Specific Ranges TSH ( IU/mL) 1st Trimester 0.1 - 3.0 2nd Trimester 0.19 - 4.06 3rd Trimester 0.3 - 3.7 us Emma eLhman MD LAB BLOOD ORDERABLES Final Resu lt [facility] [address] [place] [address] * (ABNORMAL) Basic Metabolic Panel, Plasma (08/09/2025 5:24 AM EDT) Only the most recent of4 resultswithin the time period is included. Pathologist [facility] Glucose, Plasma 121(H) 74 - 99 mg/dL 08/09/2025 5:56 AM EDT [facility] BUN, Plasma 10 7 - 21 mg/dL 08/09/2025 5:56 AM EDT [facility] Creatinine, Plasma 0.35(L) 0.60 - 1.10 mg/dL 08/09/2025 5:56 AM EDT [facility] BUN/Creatinine Ratio 29 08/09/2025 5:56 AM EDT [facility] Sodium, Plasma 125(L) 136 - 145 mmol/L 08/09/2025 5:56 AM EDT [facility] Potassium, Plasma 4.5 3.6 - 4.9 mmol/L 08/09/2025 5:56 AM EDT [facility] Chloride, Plasma 97 97 - 107 mmol/L 08/09/2025 5:56 AM EDT [facility] CO2, Plasma 19(L) 22 - 29 mmol/L 08/09/2025 5:56 AM EDT [facility] Anion Gap 9 6 - 16 mmol/L 08/09/2025 5:56 AM EDT [facility] Total Calcium, Plasma 7.9(L) 8.9 - 10.2 mg/dL 08/09/2025 5:56 AM EDT [facility] eGFRcr 127.0 mL/min/1.7 3m*2 08/09/2025 5:56 AM EDT [facility] Comment:Reported eGFRcr in m L/min/1.73m2 is based the CKD-EPI 2020 equation that does not use a race coefficient. Blood Venous blood specimen / Unknown Venipuncture / Unknown 08/09/2025 5:24 AM EDT 08/09/2025 5:35 AM EDT us Emma Lehman MD LAB BLOOD ORDERABLES Final Resu lt [facility] [address] [place] [address] * (ABNORMAL) Comprehensive Urine Drug Screening, Qualitative Assay, >= 27 Drug Classes (53:58 AM EDT) Only the most recent of2 resultswithin the time period is included. Acetaminophen Negative Negative 08/11/2025 12:06 AM EDT [facility] Alprazolam Negative Negative 08/11/2025 12:06 AM EDT [facility] Amantadine Negative Negative 08/11/2025 12:06 AM EDT [facility] Amitriptyline Negative Negative 08/11/2025 12:06 AM EDT [facility] Amphetamine Negative Negative 08/11/2025 12:06 AM EDT [facility] Atenolol Negative Negative 08/11/2025 12:06 AM EDT [facility] Benzoylecgonine Negative Negative 12:06 AM EDT [facility] Bisoprolol Negative Negative 08/11/2025 12:06 AM EDT [facility] Bupropion Negative Negative 08/11/2025 12:06 AM EDT [facility] Butalbital Negative Negative 08/11/2025 12:06 AM EDT [facility] Carbamazepine Negative Negative 08/11/2025 12:06 AM EDT [facility] Carisoprodol Negative Negative 08/11/2025 12:06 AM EDT [facility] Chlorpheniramine Negative Negative 08/11/20 12:06 AM EDT [facility] Citalopram Negative Negative 08/11/2025 12:06 AM EDT [facility] Clindamycin Negative Negative 08/11/2025 12:06 AM EDT [facility] Clonidine Negative Negative 08/11/2025 12:06 AM EDT [facility] Clopidogrel / Ticlopidine Negative Negative 08/11/2025 12:06 AM EDT [facility] Cocaethylene Negative Negative 08/11/2025 12:06 AM EDT [facility] Cocaine Negative Negative 08/11/2025 12:06 AM EDT [facility] Codeine Negative Negative 08/11/2025 12:06 AM EDT [facility] Cyclobenzaprine Negative Negative 12:06 AM EDT [facility] Desvenlafaxine Negative Negative 08/11/2025 12:06 AM EDT [facility] Dextromethorphan Negative Negative 08/11/20 12:06 AM EDT [facility] Diazepam Negative Negative 08/11/2025 12:06 AM EDT [facility] Diltiazem Negative Negative 08/11/2025 12:06 AM EDT [facility] Diphenhydramine Negative Negative 12:06 AM EDT [facility] Doxepine Negative Negative 08/11/2025 12:06 AM EDT [facility] Doxylamine Negative Negative 08/11/2025 12:06 AM EDT [facility] EDDP-Methadone metabolite Negative Negative 08/11/2025 12:06 AM EDT [facility] Fentanyl Negative Negative 08/11/2025 12:06 AM EDT [facility] Fluconazole Negative Negative 08/11/2025 12:06 AM EDT [facility] Fluoxetine Negative Negative 08/11/2025 12:06 AM EDT [facility] Guaifenesin Negative Negative 08/11/2025 12:06 AM EDT [facility] Haloperidol Negative Negative 08/11/2025 12:06 AM EDT [facility] Heroin/6-BRENDAN Negative Negative 08/11/2025 12:06 AM EDT [facility] Hydrocodone Negative Negative 08/11/2025 12:06 AM EDT [facility] Hydroxyzine / Cetirizine metabolite Negative Negative 08/11/2025 12:06 AM EDT [facility] Ibuprofen Negative Negative 08/11/2025 12:06 AM EDT [facility] Imipramine Negative Negative 08/11/2025 12:06 AM EDT [facility] Ketamine Negative Negative 08/11/2025 12:06 AM EDT [facility] Labetolol Negative Negative 08/11/2025 12:06 AM EDT [facility] Lamotrigine Negative Negative 08/11/2025 12:06 AM EDT [facility] Levetiracetam Positive(A) Negative 08/11/2025 12:06 AM EDT [facility] Lidocaine Negative Negative 08/11/2025 12:06 AM EDT [facility] MDA Negative Negative 08/11/2025 12:06 AM EDT [facility] MDMA Negative Negative 08/11/2025 12:06 AM EDT [facility] Memantine Negative Negative 08/11/2025 12:06 AM EDT [facility] Meperidine Negative Negative 08/11/2025 12:06 AM EDT [facility] Meprobamate Negative Negative 08/11/2025 12:06 AM EDT [facility] Metaxalone Negative Negative 08/11/2025 12:06 AM EDT [facility] Methamphetamine Negative Negative 12:06 AM EDT [facility] Methocarbamol Negative Negative 08/11/2025 12:06 AM EDT [facility] Methylecgonine Negative Negative 08/11/2025 12:06 AM EDT [facility] Metoclopramide Negative Negative 08/11/2025 12:06 AM EDT [facility] Metoprolol Negative Negative 08/11/2025 12:06 AM EDT [facility] Metronidazole Negative Negative 08/11/2025 12:06 AM EDT [facility] Midazolam Negative Negative 08/11/2025 12:06 AM EDT [facility] Midazolam Metabolite Negative Negative 08/11/2025 12:06 AM EDT [facility] Mirtazapine Negative Negative 08/11/2025 12:06 AM EDT [facility] Misc Test Result Negative Negative 08/11/20 12:06 AM EDT [facility] Naproxen Negative Negative 08/11/2025 12:06 AM EDT [facility] Nefazodone Negative Negative 08/11/2025 12:06 AM EDT [facility] Norfentanyl Negative Negative 08/11/2025 12:06 AM EDT [facility] Nortriptyline Negative Negative 08/11/2025 12:06 AM EDT [facility] Ordanstron Negative Negative 08/11/2025 12:06 AM EDT [facility] Oxcarbazepine Negative Negative 08/11/2025 12:06 AM EDT [facility] Oxycodone Positive(A) Negative 08/11/2025 12:06 AM EDT [facility] Paroxethine Negative Negative 08/11/2025 12:06 AM EDT [facility] Phenobarbital Negative Negative 08/11/2025 12:06 AM EDT [facility] Phentermine Negative Negative 08/11/2025 12:06 AM EDT [facility] Phenytoin Negative Negative 08/11/2025 12:06 AM EDT [facility] Primidone Negative Negative 08/11/2025 12:06 AM EDT [facility] Promethazine Negative Negative 08/11/2025 12:06 AM EDT [facility] Propofol Negative Negative 08/11/2025 12:06 AM EDT [facility] Propranolol Negative Negative 08/11/2025 12:06 AM EDT [facility] Quetiapine Negative Negative 08/11/2025 12:06 AM EDT [facility] Quinine Negative Negative 08/11/2025 12:06 AM EDT [facility] Rantidine Negative Negative 08/11/2025 12:06 AM EDT [facility] Sertraline Negative Negative 08/11/2025 12:06 AM EDT [facility] Spironolactone Negative Negative 08/11/2025 12:06 AM EDT [facility] Tizanidine Negative Negative 08/11/2025 12:06 AM EDT [facility] Topiramate Negative Negative 08/11/2025 12:06 AM EDT [facility] Tramadol Negative Negative 08/11/2025 12:06 AM EDT [facility] Trazadone/ Trazadone metabolite Negative Negative 08/11/2025 12:06 AM EDT [facility] Trimethoprim Negative Negative 08/11/2025 12:06 AM EDT [facility] Valproic Acid Negative Negative 08/11/2025 12:06 AM EDT [facility] Venlafaxine Negative Negative 08/11/2025 12:06 AM EDT [facility] Verapamil Negative Negative 08/11/2025 12:06 AM EDT [facility] Zolpidem Negative Negative 08/11/2025 12:06 AM EDT [facility] Xylazine Negative Negative 08/11/2025 12:06 AM EDT [facility] Urine Urine specimen obtained by clean catch procedure / Unknown Non-blood Collection / Unknown 08/09/2025 3:58 AM EDT 08/09/2025 4:32 AM EDT us Tammy Bustamante MD LAB URINE ORDERABLES Final Resu lt [facility] [address] [place] [address] * (ABNORMAL) Acetaminophen, Quantitative, Plasma (08/09/2025 3:57 AM EDT) Acetaminophen <5.0(L) 10.0 - 30.0 g/mL 08/09/2025 5:52 AM EDT [facility] Blood Venous blood specimen / Unknown Venipuncture / Unknown 08/09/2025 3:57 AM EDT 08/09/2025 4:30 AM EDT Narrative [facility] - 08/09/2025 5:52 AM EDT Therapeutic: 10 to 30 ug/mL Supratherapeutic: >35 ug/mL Tammy Bustamante MD LAB BLOOD ORDERABLES Final Resu lt Performing Organization Address [facility] Co de Phone Number [facility] [address] [place] [address] * Hepatitis panel, acute (08/09/2025 3:57 AM EDT) Hepatitis B Surf Antigen Negative Negative 08/09/2025 5:37 AM EDT [facility] Hepatitis C Antibody Negative Negative 08/09/2025 5:37 AM EDT [facility] Hepatitis A Antibody IgM Negative Negative 08/09/2025 5:37 AM EDT [facility] Hepatitis B Core Antibody IgM Negative Negative 08/09/2025 5:37 AM EDT [facility] Blood Venous blood specimen / Unknown Venipuncture / Unknown 08/09/2025 3:57 AM EDT 08/09/2025 4:29 AM EDT Tammy Bustamante MD LAB BLOOD ORDERABLES Final Resu lt Performing Organization Address [facility]/ZIP Co de Phone Number [facility] [address] [place] [address] * C3 complement (08/09/2025 3:57 AM EDT) C3 Complement 156 84 - 166 mg/dL 08/09/2025 10:03 AM EDT [facility] Blood Venous blood specimen / Unknown Venipuncture / Unknown 08/09/2025 3:57 AM EDT 08/09/2025 4:29 AM EDT Emma Lehman MD LAB BLOOD ORDERABLES Final Resu lt Performing Organization Address City/[facility]/ZIP Co de Phone Number [facility] [address] [place] [address] * C4 complement (08/09/2025 3:57 AM EDT) C4 Complement 19 13 - 36 mg/dL 08/09/2025 10:03 AM EDT [facility] Blood Venous blood specimen / Unknown Venipuncture / Unknown 08/09/2025 3:57 AM EDT 08/09/2025 4:29 AM EDT us Emma Lehman MD LAB BLOOD ORDERABLES Final Resu lt Performing Organization Address [facility]/ZIP Co de Phone Number [facility] [address] [place] [address] * (ABNORMAL) Triglycerides (08/09/2025 3:57 AM EDT) Triglycerides, Plasma 150(H) <150 mg/dL 08/09/2025 5:53 AM EDT [facility] Comment: Triglyceride Reference Range (age [...] 12 hours? Yes 08/09/2025 5:53 AM EDT [facility] Blood Venous blood specimen / Unknown Venipuncture / Unknown 08/09/2025 3:57 AM EDT 08/09/2025 4:30 AM EDT us Tammy Bustamante MD LAB BLOOD ORDERABLES Final Resu lt Performing Organization Address [facility]/ZIP Co de Phone Number [facility] [address] [place] [address] * (ABNORMAL) LDH, Lactate dehydrogenase (08/09/2025 3:57 AM EDT) LDH, Plasma 3,210(H) 116 - 250 U/L 08/09/2025 6:01 AM EDT [facility] Blood Venous blood specimen / Unknown Venipuncture / Unknown 08/09/2025 3:57 AM EDT 08/09/2025 4:30 AM EDT Tammy Bustamante MD LAB BLOOD ORDERABLES Final Resu lt Performing Organization Address [facility]/ZIP Co de Phone Number [facility] [address] [place] [address] * (ABNORMAL) Haptoglobin, Serum (08/09/2025 3:57 AM EDT) Haptoglobin, Serum 23(L) 40 - 219 mg/dL 08/09/2025 10:03 AM EDT [facility] Blood Venous blood specimen / Unknown Venipuncture / Unknown 08/09/2025 3:57 AM EDT 08/09/2025 4:29 AM EDT Emma Lehman MD LAB BLOOD ORDERABLES Final Resu lt Performing Organization Address [facility]/ZIP Co de Phone Number [facility] [address] [place] [address] * Salicylate level (08/09/2025 3:57 AM EDT) Salicylate, Quantitative, Plasma <1.0 <25 mg/dL mg/dL 08/09/2025 5:52 AM EDT [facility] Blood Venous blood specimen / Unknown Venipuncture / Unknown 08/09/2025 3:57 AM EDT 08/09/2025 4:30 AM EDT Narrative [facility] - 08/09/2025 5:52 AM EDT Therapeutic Range: <25 mg/dL Supratherapeutic Level: >30 mg/dL Tammy Bustamante MD LAB BLOOD ORDERABLES Final Resu lt Performing Organization Address City/[facility]/ZIP Co de Phone Number [facility] [address] [place] [address] * CT Angio Abdomen Pelvis w Runoff [...] Total DLP (Dose-Length Product): 3890.87 mGy.cm (accession [id number]), 3890.87 mGy.cm (accession [id number]). Please note: The reported value represents the [...] Total DLP (Dose-Length Product): 3890.87 mGy.cm (accession [id number]),3890.87 mGy.cm (accession [id number]). Please note: The reported valuerepresents the total [...] Marty Rajput MD on 08/09/2025 2:13 AM us Tammy Bustamante MD IMG CT PROCEDURES Final [...] Total DLP (Dose-Length Product): 3890.87 mGy.cm (accession [id number]), 3890.87 mGy.cm (accession [id number]). Please note: The reported value represents the [...] Total DLP (Dose-Length Product): 3890.87 mGy.cm (accession [id number]),3890.87 mGy.cm (accession [id number]). Please note: The reported valuerepresents the total [...] Marty Rajput MD on 08/09/2025 2:13 AM Result Forrest Bustamante MD IMG CT PROCEDURES Final Result * (ABNORMAL) Sed rate, automated (08/09/2025 12:36 AM EDT) Only the most recent of2 resultswithin the time period is included. Sedimentation Rate 72(H) <20 mm/hr 2024 2:45 AM EDT [facility] Blood Venous blood specimen / Unknown Venipuncture / Unknown 08/09/2025 12:36 AM EDT 08/09/2025 12:48 AM EDT Result Forrest Bustamante MD LAB BLOOD ORDERABLES Final Resu lt Performing Organization Address [facility]/[place] [address] * (ABNORMAL) C-reactive protein (08/09/2025 12:36 AM EDT) Only the most recent of2 resultswithin the time period is included. CRP, Plasma 148.4(H) <=8.0 mg/L 08/09/2025 2:04 AM EDT [facility] Blood Venous blood specimen / Unknown Venipuncture / Unknown 08/09/2025 12:36 AM EDT 08/09/2025 12:48 AM EDT Narrative [facility] - 08/09/2025 2:04 AM EDT This CRP test is appropriate for assessment of infection, systemic inflammation and/or tissue injury. To assess cardiovascular disease risk order high sensitivity CRP (CRPH). Result Forrest Bustamante MD LAB BLOOD [place] [address] * [facility], E/M 30-74 MINUTES, [facility], ADDL 30 MIN (08/08/2025 11:50 PM EDT) Narrative Tammy Bustamante MD - 08/08/2025 11:50 PM EDT Tammy Bustaamnte MD 08/10/2025 7:52 AM Critical Care Performed [...] Time (PTT) 26.1 24.5 - 32.8 SECONDS [facility] 08/08/2025 9:00 PM EDT 08/08/2025 9:05 PM EDT us Generic [place] Provider LAB BLOOD ORDERABLES Final Result [facility] * Methicillin Resistant Staphylococcus aureus (MRSA) Culture (08/08/2025 8:35 PM EDT) External Culture NEGATIVE NEGATIVE [facility] Nasal contents 08/08/2025 8: 35 PM EDT 08/08/2025 9:05 PM EDT us Generic [place] Provider LAB MICROBIOLOGY - G ENERAL ORDERABLES Final Result [facility] * CT OUTSIDE IMAGES (08/08/2025 1:28 PM [...] AM EDT Narrative 08/08/2025 2:59 [place] [address] Name: VERONICA WEISS Exam Date: 08/08/2025 : 1975 Age 49 years Gender: F Physician: LOBO LOWERY Facility: [facility] Facility HSV: Inpatient Exam: CT ABD [...] Thank you for referring VERONICA WEISS to [facility]. Legally authenticated by AVI Driscoll 2025-08-08 14:56:42 Procedure Note Provider, Generic [place] - 08/08/2025 [place] [address] Name: VERONICA WEISS Exam Date: 08/08/2025 : 1975 Age 49 years Gender: F Physician: LOBO LOWERY Facility: [facility] Facility HSV: Inpatient Exam: CT ABD PEL W EXAMINATION: CT ABDOMEN PELVIS WITH IV CONTRAST HISTORY: fall, inability to move left leg, severe rhabdomyolysis, r/ofx. COMPARISON: None. TECHNIQUE: Contiguous axial images through the abdomen and pelvis were acquired following the administration of intravenous contrast.Reconstructed images in the coronal and sagittal planes were reviewed. CT scans [facility] use dose modulation, iterative reconstruction [...] Thank you for referring VERONICA WEISS to [facility]. Legally authenticated by AVI Driscoll 2025-08-08 14:56:42 us Generic [place] Provider IMG CT PROCEDURES Fi nal Result * CT Hip Left w IV Contrast (08/08/2025 10:23 AM EDT) Anatomical Region Laterality Modality Lower Extremities, Hip Left Computed Tomography 08/08/2025 10:2 3 AM EDT Narrative 08/08/2025 3:06 [place] [address] Name: VERONICA WEISS Exam Date: 08/08/2025 : 1975 Age 49 years Gender: F Physician: LOBO LOWERY Facility: [facility] Facility HSV: Inpatient Exam: CT LOWER [...] Thank you for referring VERONICA WEISS to [facility]. Legally authenticated by AVI Driscoll 2025-08-08 15:01:48 Procedure Note Provider, Generic [facility] 08/08/2025 [facility] [address] [place] [address] Name: VERONICA WEISS Exam Date: 08/08/2025 : 1975 Age 49 years Gender: F Physician: LOBO LOWERY Facility: [facility] Facility HSV: Inpatient Exam: CT LOWER EXT WITH LT EXAM: CT LOWER EXTREMITY WITH IV CONTRAST LEFT HISTORY: fall, 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 COMPARISON: None. Procedure: Thin section axial images were obtained through the lower extremities after the administration of intravenous contrast..Reconstructed images in the sagittal and coronal planes were reviewed. CT scans [facility] use dose modulation, iterative reconstruction [...] Thank you for referring VERONICA WEISS to [facility]. Legally authenticated by AVI Driscoll 2025-08-08 15:01:48 Generic [place] Provider IMG CT PROCEDURES Fi nal Result * (ABNORMAL) CK (08/08/2025 3:55 AM EDT) Only the most recent of4 resultswithin the time period is included. External Creatine Kinase 64162(H) 35 - 232 IU/l [facility] 08/08/2025 3:55 AM EDT 08/08/2025 4:29 AM EDT Generic [place] Provider LAB BLOOD ORDERABLES Final Result [facility] * Echo, Adult Transthoracic Limited w/ Contrast (08/07/2025 6:38 AM EDT) Anatomical Region Laterality Modality Ultrasound 08/07/2025 6:38 AM EDT Narrative 08/07/2025 12:51 [place] [address] Name: VERONICA WEISS Exam Date: 08/07/2025 : 1975 Age 49 years Gender: F Physician: JOSSE MONTENEGRO Facility: [facility] Facility HSV: Inpatient Exam: ECHO W [...] with a valve area of 1.34 director of reservations (Peak grad=31mmHg, Mean grad=16mmHg, LVOT grady=2.00cm, LVOT TVI=14.2cm, Ao TVI=33.3cm). The dimensionless index is 0.43. AV peak qywzhbzb=944bq/sec. There is a Mechanical AV prosthesis. Tricuspid [...] Thank you for referring VERONICA WEISS to [facility]. Legally authenticated by PATTIE Yun 2025-08-07 12:49:32 Procedure Note Provider, Generic [place] - 08/07/2025 [place] [address] Name: VERONICA WEISS Exam Date: 08/07/2025 : 1975 Age 49 years Gender: F Physician: JOSSE MONTENEGRO Facility: [facility] Facility HSV: Inpatient Exam: ECHO W [...] with a valve area of 1.34 director of reservations (Peak grad=31mmHg, Mean grad=16mmHg, LVOT grady=2.00cm, LVOT TVI=14.2cm, Ao TVI=33.3cm). The dimensionless index is 0.43. AV peak wkwtfpkz=876nd/sec. There is a Mechanical AV prosthesis. Tricuspid [...] Thank you for referring VERONICA WEISS to [facility]. Legally authenticated by PATTIE Yun 2025-08-07 12:49:32 us Generic [place] Provider CV ECHO PROCEDURES F inal Result * (ABNORMAL) Troponin (EXTERNAL) (08/07/2025 5:05 AM EDT) Only the most recent of4 resultswithin the time period is included. [facility] External Troponin 294(HH) 0 - 51 ng/L [facility] Comment: PATIENT SAMPLES MAY CONTAIN CARDIAC TROPONIN-SPECIFIC [...] 5:05 AM EDT 08/07/2025 8:29 AM EDT [facility] Provider LAB BLOOD ORDERABLES Final Result Performing Organization Address City/[facility]/ZIP Co de Phone Number [facility] * Hemoglobin A1c (08/07/2025 5:05 AM EDT) [facility] External Hemoglobin A1c 5.5 3.8 - 5.6 % [facility] Comment: GLYCOSYLATED HEMOGLOBIN (A1C) EXPECTED RANGES: <6.5 NON-DIABETIC 6.5-7.5 EXCELLENT 7.5-8.5 GOOD >8.5 POOR 08/07/2025 5:05 AM EDT 08/07/2025 5:38 AM EDT [facility] Provider LAB BLOOD ORDERABLES Final Result Performing Organization Address City/[facility]/ZIP Co de Phone Number [facility] * (ABNORMAL) Lipid Profile, Plasma (08/07/2025 5:05 AM EDT) [facility] External Triglyceride 98 30 - 200 mg/dl [facility] External Cholesterol 113 0 - 200 mg/dl [facility] External HDL Cholesterol 28(L) 40 - 104 mg/dL [facility] External LDL Cholesterol-Calcu lated 65 0 - 130 mg/dL [facility] 08/07/2025 5:05 AM EDT 08/07/2025 5:38 AM EDT Generic [place] Provider LAB BLOOD ORDERABLES Final Result [facility] * XR OUTSIDE IMAGES (08/06/2025 12:26 PM EDT) Only the most recent of2 resultswithin the time period is included. Anatomical Region Laterality Modality Radiographic Tierra ging 08/06/2025 12:2 6 PM EDT L[facility]DANA IMG XR PROCEDURES Edited Resu lt - Final * XR Ankle Right 2 Views (08/06/2025 12:23 PM EDT) Anatomical Region Laterality Modality Lower Extremities, Ankle Right Digital Radiography 08/06/2025 12:2 3 PM EDT Narrative 08/06/2025 12:43 [place] [address] Name: VERONICA WEISS Exam Date: 08/06/2025 : 1975 Age 49 years Gender: F Physician: LOBO LOWERY Facility: [facility] Facility HSV: Inpatient Exam: ANKLE 2V RT XR ANKLE 2 VIEWS RIGHT, 08/06/2025 11:34 AM CDT CLINICAL INDICATION: Female, 49 years old. Acute swelling, unable to bear weight COMPARISON: No existing relevant imaging and/or the patient did not have previous relevant imaging. Number of Views: 2 views of the right ankle was/were obtained. [id number]. FINDINGS / IMPRESSION: Diffuse subcutaneous edema. No acute fracture or dislocation. Anatomic osseous alignment. Ankle mortise is congruent. Negative for joint effusion. . . . S/D/G Electronically signed by: Blu Lundberg MD 08/06/2025 12:39 PM EDT RP Dictated By: Blu Lundberg Transcribed By: Transcribed On: 08/06/2025 12:39 PM Electronically signed by: Blu Lundberg 08/06/2025 Thank you for referring VERONICA WEISS to [facility]. Legally authenticated by SEMAJ Momin 2025-08-06 12:39:28 Procedure Note Provider, [facility] - 08/06/2025 [place] [address] Name: VERONICA WEISS Exam Date: 08/06/2025 : 1975 Age 49 years Gender: F Physician: LOBO LOWERY Facility: [facility] Facility HSV: Inpatient Exam: ANKLE 2V RT XR ANKLE 2 VIEWS RIGHT, 08/06/2025 11:34 AM CDT CLINICAL INDICATION: Female, 49 years old. Acute swelling, unable tobear weight COMPARISON: No existing relevant imaging and/or the patient did not have previous relevant imaging. Number of Views: 2 views of the right ankle was/were obtained. [id number]. FINDINGS / IMPRESSION: Diffuse subcutaneous edema. No acute fracture or dislocation. Anatomic osseous alignment. Anklemortise is congruent. Negative for joint effusion. . . . S/D/G Electronically signed by: Blu Lundberg MD 08/06/2025 12:39 PM EDTRP Dictated By: Blu Lundberg Transcribed By: Transcribed On: 08/06/2025 12:39 PM Electronically signed by: Blu Lundberg 08/06/2025 Thank you for referring VERONICA WEISS to [facility]. Legally authenticated by SEMAJ Momin 2025-08-06 12:39:28 Generic [place] Provider IMG XR PROCEDURES Fi nal Result * Ethyl Alcohol Plasma (08/06/2025 7:50 AM EDT) External Ethyl Alcohol <3 0 - 50 MG/DL [facility] Comment: [place] ALCOHOL REGULATIONS 100 mg/dl = Clinically intoxicated 350-450 mg/dl Clinically severe intoxication 550 mg/dl Usually fatal 08/06/2025 7:50 AM EDT 08/06/2025 8:48 AM EDT Generic [place] Provider LAB BLOOD ORDERABLES Final Result Performing Organization Address [facility] Phone Number [facility] * Test Qualitative Plasma (08/06/2025 7:50 AM EDT) External Hcg Qualitative Serum NEGATIVE NEGATIVE [facility] External HCG Serum Lot # [id number] [facility] External HCG Serum Expiration Date 01/19/2026 [facility] External HCG Serum Internal Positive Control OK POSITIVE [facility] 08/06/2025 7:50 AM EDT 08/06/2025 8:47 AM EDT [facility] Provider LAB BLOOD ORDERABLES Final Result Performing Organization Address [facility] Phone Number [facility] * Lactic Acid, Plasma (08/06/2025 7:50 AM EDT) External Lactic Acid 1.0 0.4 - 2.0 mmol/L [facility] 08/06/2025 7:50 AM EDT 08/06/2025 7:51 AM EDT Generic [place] Provider LAB BLOOD ORDERABLES Final Result Performing Organization Address [facility] Co de Phone Number [facility] * Colonoscopy External Result (02/24/2025) Anatomical Region Laterality Modality Endoscopy Narrative 02/24/2025 Ordered by an unspecified provider. us External Provider GI PROCEDURE ORDERABLES Final Result from Last 3 Months or Most Recently Relevant to Health Maintenance Insurance [employer]ICA[employer] Advance Directives * Full Code (Latest Code Status on File) Date Activated Date Inactivated Comments 08/09/2025 5:09 AM 09/06/2025 6:38 PM Question Answer Comments I have reviewed the capacity from the link above and, if needed, have updated to appropriate status: Yes Care Teams Heel Coverer Machine Operator Relationship Specialty Start Date End Date Rodolfo Rhoades MD [address] [place] [address] PCP - General Family Medicine 02/02/25 So Caicedo LPN VALUE-BASED [place] [address] TCM Nurse 09/07/25
--- OUTSIDE RECORDS SUMMARY | 2025-09-22 11:30 | XMS_ITS | Encounter Summary ---
Author Organization [facility] Address [address] [place] [address] Care Team Providers Care Educational Psychology Professor Name Role Phone Georgette Moore APRN Primary Care Provider [phone] Veronica Goodwin LPN Unavailable Unavailable Margaret Ro Unavailable Unavailable Rodolfo Rhoades MD Primary Care Provider [phone] Marianne Bolaños Unavailable Unavailable Ariana Bagley Unavailable Unavailable So Caicedo LPN Unavailable Unavailable Encounter Details Date Type Department Care Team (Late st Contact Info) Description 07/22/2024 Outside Procedure External Location [address] [place] [id number] Provider, Swapnil Monique Social History Tobacco Use Types Packs/Day Years Used Date Smoking Tobacco: Every Day Cigarettes 12 22.8 Started: 2001 Passive Smoke Exposure: Current Smokeless [...] a senior care (including now)? No 07/25/2024 Safety and Environment [...] In the past 12 months has e Playroom, gas, oil, or water [place] threatened to shut off services in your [...] Description 10/12/2025 11:20 AM EST Office Visit [facility] [address] [place] [address] Rodolfo Rhoades MD [address] [place] [address] documented as of this encounter Procedures Procedure Name Priority Date/Time Associated Diagnosis Comments ECHO, ADULT TRANSTHORACIC COMPLETE W/ COLOR AND DOPPLER 07/22/2024 6:31 AM EDT documented in this encounter Results * Echo, Adult Transthoracic Complete w/ Color and Doppler (07/22/2024 6:31 AM EDT) Anatomical Region Laterality Modality Ultrasound 07/22/2024 6:31 AM EDT Narrative 07/22/2024 12:07 PM EDT [address] [address] Name: VERONICA ALVAREZ Exam Date: 07/22/2024 : 1975 Age 48 years Gender: F Physician: VICTORIANO REYES Facility: [facility] Facility HSV: Inpatient Exam: ECHO W [...] stenosis with a valve area of 0.85 tacking machine operator (Peak grad=45mmHg, Mean grad=24mmHg, LVOT grady=2.10cm, LVOT TVI=19.3cm, Ao TVI=79.0cm). The dimensionless index is 0.24. AV peak jbupzerr=839ka/sec. There is a Mechanical AV prosthesis. (Peak [...] for referring VERONICA ALVAREZ to [facility]. Legally authenticated by CINDY JORDAN 2024-07-22 12:04:58 Procedure Note Provider, Generic [place] - 07/22/2024 [place] [address] Name: VERONICA ALVAREZ Exam Date: 07/22/2024 : 1975 Age 48 years Gender: F Physician: VICTORIANO REYES Facility: [facility] Facility HSV: Inpatient Exam: ECHO W [...] stenosis with a valve area of 0.85 tacking machine operator (Peak grad=45mmHg, Mean grad=24mmHg, LVOT grady=2.10cm, LVOT TVI=19.3cm, Ao TVI=79.0cm). The dimensionless index is 0.24. AV peak iekedgml=673ux/sec. There is a Mechanical AV prosthesis. (Peak [...] for referring VERONICA ALVAREZ to [facility]. Legally authenticated by CINDY JORDAN 2024-07-22 12:04:58 Generic [place] Provider CV ECHO PROCEDURES F inal Result [...] documented as of this encounter Care Teams Educational Psychology Professor Relationship Specialty Start Date End Date Georgette Moore APRN [address] [place] [address] PCP - General 04/12/21 02/01/25 Rodolfo Rhoades MD [address] [place] [address] PCP - General Family Medicine 02/02/25 Veronica Goodwin LPN VALUE[employer]ED [place] [address] TCM Nurse 07/25/24 08/25/24 Margaret Ro Community Health Worker 07/27/24 4 Marianne Bolaños Clinical Form Setter [employer] 07/14/25 07/28/25 Ariana Bagley Community Health Worker 07/14/25 07/14/25 So Caicedo, ANTOINE VALUE-[place]ED [place] [address] TCM Nurse 09/07/25 documented as of this encounter
--- OUTSIDE RECORDS SUMMARY | 2025-09-22 11:30 | XMS_ITS | Encounter Summary ---
Author Organization Healthcare Address [address] [place] [address] Care Team Providers Care Bag Shaker Name Role Phone Rodolfo Rhoades MD Primary Care Provider [phone] Marianne Bolaños Unavailable Unavailable Ariana Bagley Unavailable Unavailable So Caicedo LPN Unavailable Unavailable Encounter Details Date Type Department Care Team (Late st Contact Info) Description 07/14/2025 Results Follow-Up [facility] [address] [place] [address] Rodolfo Rhoades MD [address] [place] [address] Social History Tobacco Use Types [...] in a snf (including now)? No 08/09/2025 [facility] Utilities Answer Date Recorded In [...] Description 10/12/2025 11:20 AM EST Office Visit [facility] [address] [place] [address] Rodolfo Rhoades MD [address] [place] [address] documented as of this encounter Visit [...] documented as of this encounter Care Teams Bag Shaker Relationship Specialty Start Date End Date Rodolfo Rhoades MD [address] [place] [address] PCP - General Family Medicine 02/02/25 Marianne Bolaños Clinical Motor Driver 07/14/25 07/28/25 Ariana Bagley Community Health Worker 07/14/25 07/14/25 So Caicedo LPN VALUE-[place]ED [place] [address] TCM Nurse 09/07/25 documented as of this encounter
--- OUTSIDE RECORDS SUMMARY | 2025-09-22 11:30 | XMS_ITS | Encounter Summary ---
Author Organization Healthcare Address [address] [id number] Care Team Providers Care Satellite Tv Technician Name Role Phone Rodolfo Rhoades MD Primary Care Provider [phone] Marianne Bolaños Unavailable Unavailable Reason for Visit * Reason Comments Health Maint. Records Encounter Details Date Type Department Care Team (Late st Contact Info) Description 07/28/2025 Patient Outreach [facility] [address] [facility], [address] [place] [address] Marianne Bolaños Health Maint. (Records) [...] in the past 12 m [facility], were you homeless or living in a nursing home (including now)? No 07/14/2025 Safety and [...] Other - specify: Re-faxed records request to [facility]. Waiting for response. Follow-up scheduled for: 08/15/2025 Additional Information (if needed): N/A Completed by: Marianne Bolaños documented in this encounter Plan of Treatment Upcoming Encounters Date Type Department Care Team (Late st Contact Info) Description 10/12/2025 11:20 AM EST Office Visit [facility] [address] [place] [address] Rodolfo Rhoades MD [address] [place] [address] documented as of this encounter [...] documented as of this encounter Care Teams Satellite Tv Technician Relationship Specialty Start Date End Date Rodolfo Rhoades MD [address] [place] [address] PCP - General Family Medicine 02/02/25 Marianne Bolaños Clinical Grinder Lap 07/14/2507/28 documented as of this encounter
--- OUTSIDE RECORDS SUMMARY | 2025-09-22 11:30 | XMS_ITS | Encounter Summary ---
Author Organization Healthcare Address [address] [id number] Care Team Providers Care Automatic Fabric Cutter Name Role Phone Georgette Moore APRN Primary Care Provider [phone] Hailey Goodwin PACKING INSPECTOR Unavailable Unavailable Margaret Ro Unavailable Unavailable Rodolfo Rhoades MD Primary Care Provider [phone] Marianne Bolaños Unavailable Unavailable Ariana Bagley Unavailable Unavailable So Caicedo PACKING INSPECTOR Unavailable Unavailable Encounter Details Date Type Department Care Team (Late st Contact Info) Description 07/22/2021 Outside Procedure External Location [address] [place] [address] Irma Masterson MD [address] [place] [address] Social History Tobacco Use Types Packs/Day [...] Description 10/12/2025 11:20 AM EST Office Visit [facility] [address] [place] [address] Rodolfo Rhoades MD [address] [place] [address] documented as of this encounter Procedures Procedure Name Priority Date/Time Associated Diagnosis Comments CT CHEST LIMITED HISTORICAL 07/22/2021 1:04 PM EDT documented in this encounter Results * CT Chest Limited Historical (07/22/2021 1:04 PM EDT) Anatomical Region Laterality Modality Chest Computed Tomogra phy 07/22/2021 1:04 PM EDT Narrative 07/22/2021 3:35 PM EDT [address] [address] Name: HAILEY ALVAREZ Exam Date: 07/22/2021 : 1975 Age 45 Gender: F Physician: Irma Masterson Facility: [facility] Facility HSV: Outpatient Exam: CT [...] Thank you for referring HAILEY ALVAREZ to [facility]. Legally authenticated by POPE FUNMILAYO Almonte 2021-07-22 15:24:50 Procedure Note Provider, [facility] [place] - 07/22/20[address] [place] [address] Name: HAILEY ALVAREZ Exam Date: 07/22/2021 : 1975 Age 45 Gender: F Physician: Irma Masterson Facility: [facility] Facility HSV: Outpatient Exam: CT [...] Thank you for referring HAILEY ALVAREZ to [facility]. Legally authenticated by POPE FUNMILAYO Almonte 2021-07-22 15:24:50 Irma Masterson MD IMG CT PROCEDURES Final [...] as of this encounter Care Teams Automatic Fabric Cutter Relationship Specialty Start Date End Date Georgette Moore, CLICKING MACHINE OPERATOR [address] [place] [address] PCP - General 04/12/21 02/01/25 Rodolfo Rhoades MD [address] [place] [address] PCP - General Family Medicine 02/02/25 Hailey Goodwin LPN VALUE[employer] [address] TCM Nurse 07/25/24 08/25/24 Margaret Ro Community Health Worker 07/27/24 4 Marianne Bolaños Clinical Director [employer] 07/14/25 07/28/25 Ariana Bagley Community Health Worker 07/14/25 07/14/25 So Caicedo LPN VALUE[place] [address] TCM Nurse 09/07/25 documented as of this encounter
--- OUTSIDE RECORDS SUMMARY | 2025-09-22 11:30 | XMS_ITS | Encounter Summary ---
Author Organization Healthcare Address [facility] [place] [address] Care Team Providers Care Makeup Artist Name Role Phone Rodolfo Rhoades MD Primary Care Provider [phone] So Caicedo LPN Unavailable Unavailable Encounter Details Date Type Department Care Team (Late st Contact Info) Description 09/19/2025 Telephone [facility] [address] [place] [address] Rodolfo Rhoades MD [address] [place] [address] Social History Tobacco Use Types [...] in a retirement (including now)? No 08/09/2025 [facility] Utilities Answer Date Recorded In the [...] * Telephone Encounter - Mindy Gudino - 09/21/2025 4:15 PM EDT Called pt back and informed of information and recommendation of UTC or ED. Pt voiced understandingand stated she is not sure about a UTC in [place] but is going to get INR tomorrow and will ask them about a UTC in [facility]. * Telephone Encounter - Mindy Gudino - 09/21/2025 8:15 AM EDT Called and informed pt of information from Dr. Rhoades and RX was faxed. Pt voiced understanding. Pt stated she was in her wheelchair Thursday and her daughter raises it up on the front 2 wheels in orderto get her out easier, her daughter had dropped her keys while doing that and accidentally let the wheelchair go which slammed back down on all 4 wheels and she is having more pain in her left leg than normal. She is wondering if you think she needs an xray to make sure it's not broken or if she just needs to give it more time to not be sore. If you want xray she wants order sent to [facility]. Informedpt I would send message to Dr. Rhoades and call her back. Pt voiced understanding. * Telephone Encounter - Bri Collins - 09/19/2025 10:12 AM EDT Clinical Concern/Question Reason for Call: Pt has been tired since she got home from the hospital, she is asking if that is normal. Also asking if a walker without wheels can be ordered for her in [place] ( [facility]). Best contact number: [phone] (mobile) Optimal time of day to reach [...] Description 10/12/2025 11:20 AM EST Office Visit [facility] [address] [place] [address] Rodolfo Rhoades MD [address] [place] [address] documented as of this encounter [...] documented as of this encounter Care Teams Makeup Artist Relationship Specialty Start Date End Date Rodolfo Rhoades MD [address] [place] [address] PCP - General Family Medicine 02/02/25 So Caicedo LPN VALUE[employer] [address] TCM Nurse 09/07/25 documented as of this encounter
--- OUTSIDE RECORDS SUMMARY | 2025-09-22 11:30 | XMS_ITS ---
Author Organization [facility] Address [address] [place] [address] Care Team Providers Care Cross Cut Saw Operator Name Role Phone Rodolfo Rhoades MD Primary Care Provider [phone] So Caicedo LPN Unavailable Unavailable Clinical Interactive Multimedia Designer Program Status:Closed (Closed) Start date:07/14/2025 Enrollment date:07/14/2025 Enrollment reason:Identified using referral data End date:07/28/2025 Close reason:Patient graduated Overview This episode type is for outpatient Clinical Interactive Multimedia Designer enrolling patients in their program. Continued Care and Services Coordination
--- OUTSIDE RECORDS SUMMARY | 2025-09-22 11:30 | XMS_ITS | Encounter Summary ---
Author Organization Healthcare Address [address] [id number] Care Team Providers Care Crusher And Binder Operator Name Role Phone Rodolfo Rhoades MD Primary Care Provider [phone] Marianne Bolaños Unavailable Unavailable Reason for Visit * Reason Comments Health Maint. Records Encounter Details Date Type Department Care Team (Late st Contact Info) Description 07/28/2025 Patient Outreach [facility] [address] [facility], [address] [place] [address] Marianne Bolaños Health Maint. (Records) [...] completed: Follow-up Outcome: Received colonoscopy records from [facility] via fax. Sent to stat line scarlett scanned into patient's chart. [x] RR Status: Received [x] No follow-up needed Follow-up scheduled for: N/A Additional Information (if needed):N/A Completed by: Marianne Bolaños documented in this encounter Plan of Treatment Upcoming Encounters Date Type Department Care Team (Late st Contact Info) Description 10/12/2025 11:20 AM EST Office Visit [facility] [address] [place] [address] Rodolfo Rhoades MD [address] [place] [address] documented as of this encounter Visit Diagnoses Not on filedocumented in this encounter Additional Health Concerns Assessment Noted Time PHQ-9 Depression Total Score: 11 07/14/2 025 10:59 AM EDT A fall risk assessment has been complete d for the patient 03/19/2023 1:57 PM EDT A Body Mass Index follow-up plan has been documented for the patient 06/08/2025 12:14 AM EDT documented as of this encounter Care Teams Crusher And Binder Operator Relationship Specialty Start Date End Date Rodolfo Rhoades MD [address] [place] [address] PCP - General Family Medicine 02/02/25 Marianne Bolaños Clinical Motor Adjuster 07/14/2507/28 documented as of this encounter
--- OUTSIDE RECORDS SUMMARY | 2025-09-22 11:30 | XMS_ITS | Encounter Summary ---
Author Organization Healthcare Address [address] [id number] Care Team Providers Care Neighborhood Planner Name Role Phone Rodolfo Rhoades MD Primary Care Provider [phone] So Caicedo LPN Unavailable Unavailable Encounter Details Date Type Department Care Team (Latest Contact Info) Description 09/15/2025 Travel Social History Tobacco Use Types Packs/Day [...] any time in the past 12 m [facility], were you homeless or living in a mcc (including now)? No 08/09/2025 [facility] [...] Office Visit [facility] [address] [place] [address] Rodolfo Rhoades MD [address] [place] [address] documented as of this [...] documented as of this encounter Care Teams Neighborhood Planner Relationship Specialty Start Date End Date Rodolfo Rhoades MD [address] [place] [address] PCP - General Family Medicine 02/02/25 So Caicedo LPN VALUE-[place] [address] TCM Nurse 09/07/25 documented as of this encounter
--- OUTSIDE RECORDS SUMMARY | 2025-09-22 11:30 | XMS_ITS | Encounter Summary ---
Author Organization [facility] Address [address] [place] [address] Care Team Providers Care Veterinary Surgeon Name Role Phone Georgette Moore APRN Primary Care Provider [phone] Veronica Goodwin LPN Unavailable Unavailable Margaret Ro Unavailable Unavailable Rodolfo Rhoades MD Primary Care Provider [phone] Marianne Bolaños Unavailable Unavailable Ariana Bagley Unavailable Unavailable So Caicedo LPN Unavailable Unavailable Encounter Details Date Type Department Care Team (Late st Contact Info) Description 07/21/2024 Outside Procedure External Location [address] [place] [phone] Provider, Swapnil Monique Social History Tobacco Use [...] in a correction (including now)? No 07/25/2024 Safety and Environment [...] In the past 12 months has e [employer], gas, oil, or water 10X10 Room threatened to shut off services in your [...] Description 10/12/2025 11:20 AM EST Office Visit [facility] [address] [place] [address] Rodolfo Rhoades MD [address] [place] [address] documented as of this encounter Procedures Procedure Name Priority Date/Time Associated Diagnosis Comments XR CHEST 1 VIEW 07/21/2024 4:03 PM EDT documented in this encounter Results * XR Chest 1 View (07/21/2024 4:03 PM EDT) Anatomical Region Laterality Modality Chest Digital Radiogra phy 07/21/2024 4:03 PM EDT Narrative 07/21/2024 4:31 PM EDT [address] [address] Name: VERONICA ALVAREZ Exam Date: 07/21/2024 : 1975 Age 48 years Gender: F Physician: PAOLA PIZARRO Facility: [facility] Facility HSV: Outpatient Exam: CHEST [...] for referring VERONICA ALVAREZ to [facility]. Legally authenticated by NATALIE CULVER 2024-07-21 16:12:48 Procedure Note Provider, Swapnil [place] - 07/21/2024 [place] [address] Name: VERONICA ALVAREZ Exam Date: 07/21/2024 : 1975 Age 48 years Gender: F Physician: PAOLA PIZARRO Facility: [facility] Facility HSV: Outpatient Exam: CHEST [...] for referring VERONICA ALVAREZ to [facility]. Legally authenticated by NATALIE CULVER 2024-07-21 16:12:48 Generic [place] Provider IMG XR PROCEDURES Fi nal Result [...] documented as of this encounter Care Teams Veterinary Surgeon Relationship Specialty Start Date End Date Georgette Moore APRN [address] [place] [phone] PCP - General 04/12/21 02/01/25 Rodolfo Rhoades MD [address] [place] [address] PCP - General Family Medicine 02/02/25 Veronica Goodwin LPN [employer] [place] [address] TCM Nurse 07/25/24 08/25/24 Margaret Ro Community Health Worker 07/27/24 4 Wages, Marianne Delgado Clinical Digital Technician 07/14/25 07/28/25 Ariana Bagley Community Health Worker 07/14/25 07/14/25 So Caicedo LPN [employer] [place] [address] TCM Nurse 09/07/25 documented as of this encounter
--- OUTSIDE RECORDS SUMMARY | 2025-09-22 11:30 | XMS_ITS | Encounter Summary ---
Author Organization [facility] [place] [address] Care Team Providers Care Mixer Operator Hot Metal Name Role Phone Georgette Moore APRN Primary Care Provider [phone] Veronica Goodwin LPN Unavailable Unavailable Margaret Ro Unavailable Unavailable Rodolfo Rhoades MD Primary Care Provider [phone] Marianne Bolaños Unavailable Unavailable Ariana Bagley Unavailable Unavailable So Caicedo LPN Unavailable Unavailable Reason for Visit * Reason Comments Med Refill Encounter Details Date Type Department Care Team (Late st Contact Info) Description 05/13/2021 Refill Family and Community Medicine [address] [place] [address] Georgette Moore APRN [address] [place] [address] Social History Tobacco Use Types [...] EST Office Visit [facility] [address] [place] [address] Rodolfo Rhoades MD [address] [place] [address] documented as of this encounter Visit [...] documented as of this encounter Care Teams Mixer Operator Hot Metal Relationship Specialty Start Date End Date Georgette Moore APRN [address] [place] [address] PCP - General 04/12/21 02/01/25 Rodolfo Rhoades MD [address] [place] [address] PCP - General Family Medicine 02/02/25 Veronica Goodwin LPN [employer] [place] [place] [address] TCM Nurse 07/25/24 08/25/24 Margaret Ro Community Health Worker 07/27/24 4 Mami, Marianne Delgado Clinical Blocker Hand 07/14/25 07/28/25 Ariana Bagley Community Health Worker 07/14/25 07/14/25 So Caicedo LPN [employer] [place] [address] TCM Nurse 09/07/25 documented as of this encounter
--- OUTSIDE RECORDS SUMMARY | 2025-09-22 11:30 | XMS_ITS | Encounter Summary ---
Author Organization Healthcare Address [facility] [place] [address] Care Team Providers Care Vice President Payment Name Role Phone Rodolfo Rhoades MD Primary Care Provider [phone] Marianne Bolaños Unavailable Unavailable Ariana Bagley Unavailable Unavailable Reason for Visit * Reason Onset Date Comments HCN Paperwork/Documentation Request 07/14/2025 Encounter Details Date Type Department Care Team (Late st Contact Info) Description 07/14/2025 Telephone [facility] Medicine [address] [place] [address] Rodolfo Rhoades MD [address] [place] [address] HCN Paperwork/Documentation Request Social History Tobacco [...] in a correction (including now)? No 08/09/2025 [facility] Utilities Answer Date Recorded In the [...] for work / HBP Best contact number: [phone] (mobile) Optimal time of day to reach [...] 11:20 AM EST Office Visit [facility] [address] [place] [address] Rodolfo Rhoades MD [address] [place] [address] documented as of this [...] documented as of this encounter Care Teams Vice President Payment Relationship Specialty Start Date End Date Rodolfo Rhoades MD [facility] [place] [address] PCP - General Family Medicine 02/02/25 Marianne Bolaños Clinical Singing Messenger 07/14/2507/28 Ariana Bagley Community Health Worker 07/14/25 07/14/25 documented as of this encounter
--- OUTSIDE RECORDS SUMMARY | 2025-09-22 11:31 | XMS_ITS | Encounter Summary ---
Author Organization Healthcare Address [address] [place] [id number] Care Team Providers Care Psychologist Counseling Name Role Phone Rodolfo Rhoades MD Primary Care Provider [phone] So Caicedo LPN Unavailable Unavailable Encounter Details Date Type Department Care Team (Late st Contact Info) Description 08/06/2025 Outside Procedure External Location [address] [place] [phone] Provider, Swapnil [place] Social History Tobacco Use Types Packs/Day Years [...] any time in the past 12 m [facility], were you homeless or living in a senior living (including now)? No 08/09/2025 [facility] Utilities Answer Date Recorded In the past [...] Description 10/12/2025 11:20 AM EST Office Visit [facility] [address] [place] [address] Rodolfo Rhoades MD [address] [place] [address] documented as of this encounter Procedures Procedure Name Priority Date/Time Associated Diagnosis Comments XR ANKLE RIGHT 2 VIEWS 08/06/2025 12:23 PM EDT documented in this encounter Results * XR Ankle Right 2 Views (08/06/2025 12:23 PM EDT) Anatomical Region Laterality Modality Lower Extremities, Ankle Right Digital Radiography 08/06/2025 12:2 3 PM EDT Narrative 08/06/2025 12:43 PM EDT [address] [address] Name: HAILEY ALVAREZ Exam Date: 08/06/2025 : 1975 Age 49 years Gender: F Physician: LOBO LOWERY Facility: [facility] Facility HSV: Inpatient Exam: ANKLE 2V RT XR ANKLE 2 VIEWS RIGHT, 08/06/2025 11:34 AM CDT CLINICAL INDICATION: Female, 49 years old. Acute swelling, unable to bear weight COMPARISON: No existing relevant imaging and/or the patient did not have previous relevant imaging. Number of Views: 2 views of the right ankle was/were obtained. [id number]. FINDINGS / IMPRESSION: Diffuse subcutaneous edema. No acute fracture or dislocation. Anatomic osseous alignment. Ankle mortise is congruent. Negative for joint effusion. . . . S/D/G Electronically signed by: Blu Wasserman MD 08/06/2025 12:39 PM EDT Dictated By: Blu Wasserman Transcribed By: Transcribed On: 08/06/2025 12:39 PM Electronically signed by: Blu Wasserman 08/06/2025 Thank you for referring HAILEY ALVAREZ to [facility]. Legally authenticated by SEMAJ Momin 2025-08-06 12:39:28 Procedure Note Provider, Generic [place] - 08/06/2025 [place] [address] Name: HAILEY ALVAREZ Exam Date: 08/06/2025 : 1975 Age 49 years Gender: F Physician: LOBO LOWERY Facility: [facility] Facility HSV: Inpatient Exam: ANKLE 2V RT XR ANKLE 2 VIEWS RIGHT, 08/06/2025 11:34 AM CDT CLINICAL INDICATION: Female, 49 years old. Acute swelling, unable tobear weight COMPARISON: No existing relevant imaging and/or the patient did not have previous relevant imaging. Number of Views: 2 views of the right ankle was/were obtained. [id number]. FINDINGS / IMPRESSION: Diffuse subcutaneous edema. No acute fracture or dislocation. Anatomic osseous alignment. Anklemortise is congruent. Negative for joint effusion. . . . S/D/G Electronically signed by: Blu Wasserman MD 08/06/2025 12:39 PM EDTRP Dictated By: Blu Wasserman Transcribed By: Transcribed On: 08/06/2025 12:39 PM Electronically signed by: Blu Wasserman 08/06/2025 Thank you for referring HAILEY ALVAREZ to [facility]. Legally authenticated by SEMAJ Momin 2025-08-06 12:39:28 us Generic [place] Provider IMG XR PROCEDURES Fi nal Result [...] documented as of this encounter Care Teams Psychologist Counseling Relationship Specialty Start Date End Date Rodolfo Rhoades MD [address] [place] [address] PCP - General Family Medicine 02/02/25 So Caicedo LPN VALUE-BASED TR[place]FORMATION [place] [address] TCM Nurse 09/07/25 documented as of this encounter
--- OUTSIDE RECORDS SUMMARY | 2025-09-22 11:31 | XMS_ITS ---
Author Organization [facility] Address [address] [place] [address] Care Team Providers Care Rubber Compounder Supervisor Name Role Phone Rodolfo Rhoades MD Primary Care Provider [phone] So Caicedo LPN Unavailable Unavailable Transitional Care Management Status:Active (Active) Start date:09/07/2025 Enrollment date:09/08/2025 Enrollment reason:Identified using hospital discharge data Overview This episode type is for outpatient care managers enrolling patients in the [facility] Transitional Care Management program. Case Team Name Relationship Phone So Caicedo LPN(Responsible Staff) TCM Nurse Continued Care and Services Coordination
--- OUTSIDE RECORDS SUMMARY | 2025-09-22 11:31 | XMS_ITS | Clinical Summary ---
Author Organization [facility] Address [address] [place] [address] Care Team Providers Care Head Housekeeper Name Role Phone Rodolfo Rhoades MD Primary Care Provider [phone] Allergies Active Allergy Reactions Criticality Noted Date [...] lateral wall. Normal LVEF. Cardiac cath at [facility] (04/2020): Normal coronary arteries. 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 Not on file Not [...] SCREENING 02/24/2035 Medical Devices Implanted Type Area Pants Maker Device Identifier Shelf Expiration Date Model / Serial / Lot Vlv Aort [facility] 19mm - [id number] - [id number] Implanted:Qty : 1 on 06/11/2021 by Taz Cespedes MD at [facility] Implant N/A: Heart [employer] [id number] 01/01/2025 [id number] / [id number] / Appl Clip Evelyn Atriclip Flx 35mm - [id number] Implanted:Qty : 1 on 06/11/2021 by Taz Cespedes MD at [facility] Implant N/A: Heart ATRICURE 02/29/2024 [id number] / [id number] Procedures Procedure Name Priority Date/Time Associated Diagnosis Comments SCANNED EKG 06/22/2025 LIPID PANEL STAT 04/19/2021 9:30 AM EDT from Last 3 Months or Most Recently Relevant to Health Maintenance Results * ECG Scan (06/22/2025) Kathy Saavedra APRN ECG ORDERABLES Final Resu lt * Lipid Panel (04/19/2021 9:30 AM EDT) Total Cholesterol 146 0 - 200 mg/dL 04/19/2021 10:14 AM EDT [facility] Triglycerides 67 0 - 150 mg/dL 04/19/2021 10:14 AM EDT [facility] HDL Cholesterol 58 40 - 60 mg/dL 04/19/2021 10:14 AM EDT [facility] LDL Cholesterol 75 0 - 100 mg/dL 04/19/2021 10:14 AM EDT [facility] VLDL Cholesterol 13 5 - 40 mg/dL 04/19/2021 10:14 AM EDT [facility] LDL/HDL Ratio 1.29 04/19/2021 10:14 AM EDT [facility] Blood Line / Unknown 04/19/2021 9: 30 AM EDT 04/19/2021 9:40 AM EDT Narrative [facility] - 04/19/2021 10:14 AM EDT [...] Saavedra APRN LAB BLOOD ORDERABLES Final Result [facility]
[address] [place] [address], from Last 3 Months or Most Recently [...] pulse or is breathing): Full Care Teams Head Housekeeper Relationship Specialty Start Date End Date Rodolfo Rhoades MD [address] [place] [address] PCP - General Family Medicine 04/05/25
--- OUTSIDE RECORDS SUMMARY | 2025-09-22 11:31 | XMS_ITS | Encounter Summary ---
Author Organization Healthcare Address [address] [place] [id number] Care Team Providers Care Access Specialist Name Role Phone Rodolfo Rhoades MD Primary Care Provider [phone] So Caicedo LPN Unavailable Unavailable Encounter Details Date Type Department Care Team (Late st Contact Info) Description 08/06/2025 Outside Procedure External Location [address] [place] [phone] Provider, Swapnil [place] Social History Tobacco Use Types Packs/Day Years [...] No 08/09/2025 Housing Stability Vital Sign Answer Yvoany e [...] in a intermediate (including now)? No 08/09/2025 [facility] Utilities Answer Date Recorded In [...] Description 10/12/2025 11:20 AM EST Office Visit [facility] [address] [place] [address] Rodolfo Rhoades MD [address] [place] [address] documented as of this encounter Procedures Procedure Name Priority Date/Time Associated Diagnosis Comments XR CHEST 1 VIEW 08/06/2025 9:18 AM EDT documented in this encounter Results * XR Chest 1 View (08/06/2025 9:18 AM EDT) Anatomical Region Laterality Modality Chest Digital Radiogra phy 08/06/2025 9:18 AM EDT Narrative 08/06/2025 10:17 AM EDT [address] [address] Name: HAILEY ALVAREZ Exam Date: 08/06/2025 : 1975 Age 49 years Gender: F Physician: REFUGIO JACKSON Facility: [facility] Facility HSV: Outpatient Exam: CHEST PORTABLE PROCEDURE: [...] Yessy Mcduffie MD 08/06/2025 10:14 AM EDT Dictated By: Yessy Mcduffie Transcribed By: Transcribed On: 08/06/2025 10:14 AM Electronically signed by: Yessy Mcduffie 08/06/2025 Thank you for referring HAILEY ALVAREZ to [facility]. Legally authenticated by BRITTON RIVERA 2025-08-06 10:14:11 Procedure Note Provider, [facility] - 08/06/2025 [place] [address] Name: HAILEY ALVAREZ Exam Date: 08/06/2025 : 1975 Age 49 years Gender: F Physician: REFUGIO JACKSON Facility: [facility] Facility HSV: Outpatient Exam: CHEST PORTABLE PROCEDURE: [...] Thank you for referring HAILEY ALVAREZ to [facility]. Legally authenticated by BRITTON RIVERA 2025-08-06 10:14:11 Generic [place] Provider IMG XR PROCEDURES Fi [...] documented as of this encounter Care Teams Access Specialist Relationship Specialty Start Date End Date Rodolfo Rhoades MD [address] [place] [address] PCP - General Family Medicine 02/02/25 So Caicedo LPN VALUE-[employer]ED [place] [address] TCM Nurse 09/07/25 documented as of this encounter
--- OUTSIDE RECORDS SUMMARY | 2025-09-22 11:31 | XMS_ITS | Encounter Summary ---
Author Organization Healthcare Address [address] [place] [address] Care Team Providers Care Tree Girdler Name Role Phone Rodolfo Rhoades MD Primary Care Provider [phone] Encounter Details Date Type Department Care Team (Late st Contact Info) Description 08/06/2025 Orders Only External Location [address] [place] [address] Provider, Swapnil [place] Social History Tobacco Use [...] living in a correction (including now)? No 07/14/2025 Safety and Environment [...] Description 10/12/2025 11:20 AM EST Office Visit [facility] [address] [place] [address] Rodolfo Rhoades MD [address] [place] [address] documented as of this encounter Procedures Procedure Name Priority Date/Time Associated Diagnosis Comments MAGNESIUM, PLASMA Routine 08/06/2025 7:5 0 PM EDT APTT Routine 08/06/2025 1:30 PM EDT PROTHROMBIN TIME(PT) / INR Routine 08/06/2025 1:30 PM EDT TROPONIN ([facility]) Routine 08/06/2025 1:22 PM EDT PHOSPHORUS, PLASMA Routine 08/06/2025 1: 22 PM EDT MAGNESIUM, PLASMA Routine 08/06/2025 1:2 2 PM EDT CK Routine 08/06/2025 1:22 PM EDT TROPONIN ([facility]) Routine 08/06/2025 10:00 AM EDT APTT Routine 08/06/2025 10:00 AM EDT PROTHROMBIN TIME(PT) / INR Routine 08/06/2025 10:00 AM EDT COMPREHENSIVE URINE DRUG SCREENING,QUALITATIVE ASSAY, >= 27 DRUG CLASSES Routine 08/06/2025 9:09 AM EDT TROPONIN ([facility]) Routine 08/06/2025 7:50 AM EDT ETHYL ALCOHOL [...] External Magnesium 1.8 1.8 - 2.4 MG/DL [facility] 08/06/2025 7:50 PM EDT 08/06/2025 7:55 PM EDT [employer] [place] Provider LAB BLOOD ORDERABLES Final Result Performing Organization Address [facility] Co de Phone Number [facility] * (ABNORMAL) APTT (08/06/2025 1:30 PM EDT) External Partial Thromboplastin Time (PTT) 120.0(HH) 24.5 - 32.8 SECONDS [facility] 08/06/2025 1:30 PM EDT 08/06/2025 3:28 PM EDT [employer] [place] Provider LAB BLOOD ORDERABLES Final Result Performing Organization Address [facility] Co de Phone Number [facility] * (ABNORMAL) Prothrombin Time/INR (08/06/2025 1:30 PM EDT) External Prothrombin Time (PT) >140.0(HH ) 9.3 - 11.4 SECONDS [facility] External INR - Internormal Ratio TNP 0.97 - 1.05 Ratio [facility] Comment: TEST NOT PERFORMED INR is intended to be used ONLY for patients on stable oral anticoagulant therapy. Therapeutic Ranges: 2.0-3.0 Usual Therapeutic Range 2.5-3.5 For patients with history of Multiple Deep Vein Thrombus or Mechanical Heart Valves 08/06/2025 1:30 PM EDT 08/06/2025 3:28 PM EDT [employer] [place] Provider LAB BLOOD ORDERABLES Final Result Performing Organization Address [facility] Co de Phone Number [facility] * (ABNORMAL) Magnesium, Plasma (08/06/2025 1:22 PM EDT) External Magnesium 1.7(L) 1.8 - 2.4 MG/DL [facility] 08/06/2025 1:22 PM EDT 08/06/2025 4:46 PM EDT [facility] Provider LAB BLOOD ORDERABLES Final Result Performing Organization Address [facility] de Phone Number [facility] * (ABNORMAL) Troponin (EXTERNAL) (08/06/2025 1:22 PM EDT) External Troponin 277(HH) 0 - 51 ng/L [facility] Comment: PATIENT SAMPLES MAY CONTAIN CARDIAC TROPONIN-SPECIFIC [...] 1:22 PM EDT 08/06/2025 2:41 PM EDT Generic [place] Provider LAB BLOOD ORDERABLES Final Result Performing Organization Address [facility] Phone Number [facility] * Phosphorus, Plasma (08/06/2025 1:22 PM EDT) External Phosphorus 3.0 2.5 - 4.9 mg/dl [facility] 08/06/2025 1:22 PM EDT 08/06/2025 2:41 PM EDT [facility] LAB BLOOD ORDERABLES Final Result Performing Organization Address [facility] Number [facility] * (ABNORMAL) CK (08/06/2025 1:22 PM EDT) External Creatine Kinase 75373(H) 35 - 232 IU/l [facility] 08/06/2025 1:22 PM EDT 08/06/2025 1:23 PM EDT Generic [facility] LAB BLOOD ORDERABLES Final Result Performing Organization Address [facility] Phone Number [facility] * (ABNORMAL) APTT (08/06/2025 10:00 AM EDT) External Partial Thromboplastin Time (PTT) 118.9(HH) 24.5 - 32.8 SECONDS [facility] 08/06/2025 10:0 0 AM EDT 08/06/2025 10:02 AM EDT Generic [place] Provider LAB BLOOD ORDERABLES Final Result Performing Organization Address [facility] Phone Number [facility] * Prothrombin Time/INR (08/06/2025 10:00 AM EDT) External Prothrombin Time (PT) TNP 9.3 - 11.4 SECONDS [facility] Comment: ABNORMAL RESULTS DUE TO ANTICOAGULANT THERAPY. NUMERIC RESULT WAS UNABLE TO BE OBTAINED THE ANALYZER CAN TEST NOT PERFORMED TEST NOT PERFORMED External INR - Internormal Ratio TNP 0.97 - 1.05 Ratio [facility] Comment: NOT PROVIDE A RESULT THAT IS >140. INR is intended to be used ONLY for patients on stable oral anticoagulant therapy. Therapeutic Ranges: 2.0-3.0 Usual Therapeutic Range 2.5-3.5 For patients with history of Multiple Deep Vein Thrombus or Mechanical Heart Valves 08/06/2025 10:0 0 AM EDT 08/06/2025 10:02 AM EDT [employer] [place] Provider LAB BLOOD ORDERABLES Final Result Performing Organization Address [facility] de Phone Number [facility] * (ABNORMAL) Troponin (EXTERNAL) (08/06/2025 10:00 AM EDT) External Troponin 255(HH) 0 - 51 ng/L [facility] Comment: PATIENT SAMPLES MAY CONTAIN CARDIAC TROPONIN-SPECIFIC [...] 0 AM EDT 08/06/2025 10:02 AM EDT [employer] [place] Provider LAB BLOOD ORDERABLES Final Result Performing Organization Address [facility] Phone Number [facility] * Comprehensive Urine Drug Screening, Qualitative Assay, >= 27 Drug Classes (08/06/2025 9:09 AM EDT) External Methadone, Urine Screen NEGATIVE NEGATIVE [facility] External Marijuana Screen-Urine NEGATIVE NEGATIVE [facility] External Cocaine, Urine Screen NEGATIVE NEGATIVE [facility] External Barbiturate, Urine Screen NEGATIVE NEGATIVE [facility] External Benzodiazepine , Urine Screen NEGATIVE NEGATIVE [facility] External Opiates, Urine Screen NEGATIVE NEGATIVE [facility] External Amphetamine, Urine Screen NEGATIVE NEGATIVE [facility] External PCP Screen-Urine NEGATIVE NEGATIVE [facility] Ureter biopsy 08/06/2025 9:0 9 AM EDT 08/06/2025 9:48 AM EDT us Generic [place] Provider LAB URINE ORDERABLES Final Result [facility] * (ABNORMAL) CBC and Differential (08/06/2025 7:50 AM EDT) External WBC 11.8(H) 4.0 - 10.5 K/ul [facility] External Red Blood Cell (RBC) 4.8 4.2 - 6.4 M/mm3 [facility] External Hemoglobin 14.2 12.5 - 16.0 gm/dl [facility] External Hematocrit 42.2 37.0 - 47.0 % [facility] External MCV 88.8 78 - 100 fl [facility] External MCH 29.9 27 - 31 pg [facility] External MCHC 33.6 32 - 36 g/dl [facility] External RDW 12.4 11.5 - 14.0 % [facility] External Platelets 334 150 - 450 K/ul [facility] External MPV 9.9(H) 6 - 9.5 fl [facility] External Neutrophils % 68.7(H) 43 - 65 % [facility] External Lymphocyte % 9.0(L) 20.5 - 45.5 % [facility] External Monocyte % 5.3(L) 5.5 - 11.7 % [facility] External Eosinophil% 15.4(H) 0.9 - 2.9 % [facility] External Basophil % 0.2 0.2 - 1.0 % [facility] External Immature Granulocyte% 1.4(H) 0.0 - 0.8 % [facility] External Nucleated RBC % 0.0 % [facility] External Neutrophil# 8.1(H) 2.2 - 4.8 K/uL [facility] External Lymphocyte# 1.1(L) 1.3 - 2.9 CELL/MCL [facility] External Monocyte# 0.6 0.3 - 0.8 CELL/PSYCHIATRIC External Eosinophils# 1.8(H) 0 - 0.2 CELL/MCL [facility] External Baso# 0.0 0.0 - 1.0 CELL/PSYCHIATRIC External Immature Granulocyte Abs 0.17 K/ul [facility] External Nucleated RBC Absolute 0.00 K/uL [facility] External Manual Differential YES [facility] External Neutrophils % 81(H) 42 - 76 % [facility] External Lymphocyte % 4(L) 15 - 41 % [facility] External Monocyte % 5 2 - 9 % [facility] External Eosinophils# 8(H) 0 - 3 % [facility] External Atypical Lymph% 2 [facility] External Platelet Estimate ADEQUATE ADEQUATE [facility] External Platelet Morphology NORMAL NORMAL [facility] External RBC Morphology Comment NORMAL NORMAL [facility] 08/06/2025 7:50 AM EDT 08/06/2025 7:51 AM EDT us Generic [place] Provider LAB BLOOD ORDERABLES Final Result [facility] * Test Qualitative Plasma (08/06/2025 7:50 AM EDT) External Hcg Qualitative Serum NEGATIVE NEGATIVE [facility] External HCG Serum Lot # [id number] [facility] External HCG Serum Expiration Date 01/19/2026 [facility] External HCG Serum Internal Positive Control OK POSITIVE [facility] 08/06/2025 7:50 AM EDT 08/06/2025 8:47 AM EDT us Generic [place] Provider LAB BLOOD ORDERABLES Final Result Performing Organization Address [facility] Co fl Phone Number [facility] * Ethyl Alcohol Plasma (08/06/2025 7:50 AM EDT) External Ethyl Alcohol <3 0 - 50 MG/DL [facility] Comment: [place] AL[place]H[employer] REGULATIONS 100 mg/dl = Clinically intoxicated 350-450 mg/dl Clinically severe intoxication 550 mg/dl Usually fatal 08/06/2025 7:50 AM EDT 08/06/2025 8:48 AM EDT Generic [place] Provider LAB BLOOD ORDERABLES Final Result Performing Organization Address [facility] Co de Phone Number [facility] * (ABNORMAL) CK (08/06/2025 7:50 AM EDT) External Creatine Kinase 23975(H) 35 - 232 IU/l [facility] 08/06/2025 7:50 AM EDT 08/06/2025 7:50 AM EDT Generic [place] Provider LAB BLOOD ORDERABLES Final Result Performing Organization Address [facility] Co de Phone Number [facility] * (ABNORMAL) Comprehensive Metabolic Panel, Plasma (08/06/2025 7:50 AM EDT) External Sodium 134(L) 136 - 145 mmol/L [facility] External Potassium 3.8 3.6 - 5.0 mmol/L [facility] External Chloride 98 98 - 107 mmol/L [facility] External Carbon Dioxide 27.6 21.0 - 32.0 mmol/L [facility] External Anion Gap (AG) 12.2 [facility] External Glucose 115 70 - 120 mg/dl [facility] External BUN 8 7 - 18 mg/dL [facility] External Creatinine Blood 0.7 0.6 - 1.3 mg/dL [facility] External Estimated GFR 107 60- mlpermin [facility] Comment: GFR LIMITATION: The eGFR equation CKD-EPI 2020 is not applicable for pediatric patients or greater than 90 years of age. The following conditions may alter the GFR result: extremes in body size, malnutrition or obesity, skeletal muscle disease, paraplegia or quadriplegia, vegetarian diet or rapidly changing kiney function. External Osmolality (Calculated) 278 275 - 301 mosm/kg [facility] Comment: OSMOLALITY IS A CALCULATION UTILIZING THE SERUM/PLASMA SODIUM, GLUCOSE AND UREA NITROGEN (BUN) LEVELS. FOR THE MOST ACCURATE RESULT A MEASURED SERUM OSMOLALITY IS SUGGESTED. External Total Protein 7.3 6.4 - 8.2 g/dl [facility] External Albumin 2.8(L) 3.4 - 5.0 g/dl [facility] External Globulin 4.5 [facility] External Albumin/Globuli n Ratio 0.6(L) 0.7 - 2 [facility] External Calcium 8.9 8.5 - 10.5 mg/dl [facility] External Bilirubin Total 0.50 0.10 - 1.00 mg/dL [facility] External AST (SGOT) 234(H) 0 - 37 U/L [facility] External ALT (SGPT) 88(H) 0 - 65 U/L [facility] External Alkaline Phosphatase 123(H) 46 - 116 U/L [facility] 08/06/2025 7:50 AM EDT 08/06/2025 7:50 AM EDT us Generic [place] Provider LAB BLOOD ORDERABLES Final Result Performing Organization Address City/[facility]/ZIP Co de Phone Number [facility] * (ABNORMAL) Troponin (EXTERNAL) (08/06/2025 7:50 AM EDT) External Troponin 285(HH) 0 - 51 ng/L [facility] Comment: PATIENT SAMPLES MAY CONTAIN CARDIAC TROPONIN-SPECIFIC [...] 7:50 AM EDT 08/06/2025 7:51 AM EDT [facility] Provider LAB BLOOD ORDERABLES Final Result Performing Organization Address [facility] Co de Phone Number [facility] * Lactic Acid, Plasma (08/06/2025 7:50 AM EDT) External Lactic Acid 1.0 0.4 - 2.0 mmol/L [facility] 08/06/2025 7:50 AM EDT 08/06/2025 7:51 AM EDT [facility] Provider LAB BLOOD ORDERABLES Final Result Performing Organization Address [facility]/ZIP Co de Phone Number [facility] documented in this encounter Visit Diagnoses Not [...] documented as of this encounter Care Teams Tree Girdler Relationship Specialty Start Date End Date Rodolfo Rhoades MD [address] [place] [address] PCP - General Family Medicine 02/02/25 documented as of this encounter
[2025-09-22 13:00] LABS: PHA INR Fingerstick 2.6 (0.9-1.1)
== END 2025-09-22 13:03 ==
LOC: ACC 11:19
PROVIDERS: PCP Family Medicine; Visit Provider Nurse Practitioner Family
DX: Z79.01 Long term (current) use of anticoagulants (principal)
CPT/HCPCS: 85610; 99211; G0463

== ENCOUNTER 2025-09-29 10:43 | Outpatient (CLI) | payer OTHER, SELFPAY ==
--- OUTSIDE RECORDS SUMMARY | 2025-08-21 14:57 | XMS_ITS | Encounter Summary ---
Author Organization Healthcare Address [address] [place] [address] Care Team Providers Care Touch Up Worker Name Role Phone Rodolfo Rhoades MD Primary Care Provider [phone] Reason for Visit * Auth/Cert (Routine) Specialty Diagnoses / Procedures Referred By Kaiser zuniga Referred To Contact Diagnoses Rhabdomyolysis Possible Splenic Laceration and Pneumoperitoneum Emma Lehman MD [facility] [address] [address] Phone: tel: fax: P[facility] S Inpatient [address] [place] [address] Phone: tel: fax: Referral ID Status Reason Start Date Expiration Date Visits Re quested Visits Authorized [id number] 1 1 Encounter Details Date Type Department Care Team (Late st Contact Info) Description 08/21/2025 2:57 PM EDT Anesthesia Event PAV S Operating Room [address] [place] [address] Sosa Cadet MD [address] [place] [address] Alok Wilson DO [address] [place] [address] Anesthesia Record Procedure Summary Procedure Name Responsible Anesthesiologist Anesthesia Start Time Anesthesia Stop Time BIOPSY, MUSCLE (Right) Sosa Cadet MD 08/21/25 1457 08/21/25 1616 Events Date Time Event Comment 08/21/2025 1349 1457 An Start The patient was reevaluated immediately before sedation and remains eligible for anesthesia plan. 1457 In Room 1458 An Start Data 1502 An Induction The patient was reevaluated immediately before moderate or deep sedation use and before anesthesia induction. 1503 Anesthesia Ready 1520 Proc Start 1605 Proc Fin 1607 an stop data 1611 Out of Room 1616 Handoff to Receiving I compl eted my handoff to the receiving clinician during which we: 1. Identified the patient 2. Identified the responsible provider 3. Reviewed the pertinent medical history 4. Discussed the surgical course 5. Reviewed intra-op anesthesia management and issues during anesthesia 6. Set expectations for post-procedure period 7. Allowed opportunity for questions and acknowledgement of understanding. 1616 An Stop Meds Name Total midazolam (Versed) injection 1 mg/mL 0.5 mg dexmedetomidine (Precedex) infusion in N aCl 4 mcg/mL 12 mcg ceFAZolin (Ancef) vial 1 g 2 g lactated Ringer's infusion 250 mL * Agents No agents on file. * Blood No blood administrations on file. Lines, Drains, and Airways Type Details Placement Removal Wound 08/14/25; 1455; Yes; Foot; Anterior, Right; Right foot bullae 08/14/25 1455 by Leonardo Cote RN Wound 08/14/25; 1455; Yes; Foot; Anterior, Left; left dorsal foot - bullae 08/14/25 1455 by Leonardo Cote RN Wound 08/17/25; 1459; Hand ; Left, Posterior; Left dorsal hand - bullae 08/17/25 1459 by Leonardo Cote RN Wound 08/21/25; 1545; N; Y es; Surgical; Leg; Anterior, Right, Upper 08/21/25 1545 by Cynthia Mon RN Wound 08/21/25; 1551; Y; Surgical; Open Surg; Ankle; Anterior, Right 08/21/25 1551 by Cynthia Mon RN Peripheral IV Placement Date: 07/31 12/24; Placement Time: 1999; Catheter Size: 20 G; Orientation: Anterior, Proximal, Right; Location: Forearm; Site Prep: Alcohol; Technique: Anatomical landmarks; Inserted by: RF, RN; Insertion Attempts: 1; Patient Tolerance: Tolerated well; Removal Date: 09/06/25; Removal Time: 1600; Removal Reason: Discharge 08/10/25 2000 by Andres Schulz 09/06/25 1600 by Brittani Brower Feeding Tube Placement Date: 07/31 05/24; Placement Time: 0950; Inserted by: FT Team; Type: Gastric; Size: 10 Fr. (72in); Location: Left nare; Removal Date: 08/23/25; Removal Time: 1744; Removal Reason: Per order 08/15/[address] 08/23/25 1744 by Sarika Ureña RN Wound 08/17/25; 1459; Yes; Elbow; Anterior, Right; Right antecubital - bullae, denuding; 08/31/25; 1100; Healed 08/17/25 1459 by Leonardo Cote RN 08/31/25 1100 by Leonardo Cote RN Urethral Catheter Placement Date: 08/01 12/24; Placement Time: 1230; Inserted by: Gordon; Type: Single lumen; Balloon Size: 10 mL; Urine Returned: Yes; Removal Date: 09/03/25; Removal Time: 1100; Removal Reason: Per order 08/20/25 1230 by Charleen Barton RN 09/03/25 1100 by Kelly Gordon RN Wound 08/21/25; 1042; Yes; Back; Lower; lp site; 08/29/25; 0800 08/21/25 1042 by Brian Fuentes RN 08/29/25 0800 by Yeni Wolfe RN Peripheral IV Placement Date: 08/01 01/24; Placement Time: 1327 (created via procedure documentation); Catheter Size: 20 G; Orientation: Left, Upper (cephalic); Location: Arm; Site Prep: Chlorhexidine ; Local Anesth: None; Technique: Ultrasound guidance; Inserted by: Pedro Wilkes/BEHZAD; Insertion Attempts: 1; Patient Tolerance: Tolerated well; Removal Date: 09/06/25; Removal Time: 1516 08/21/25 1327 by Patito Vasquez RN 09/06/25 1516 by Leonarda, Brittani N documented in this encounter Social History Tobacco Use Types Packs/Day Years Used Date Smoking Tobacco: Some Days Cigarettes 1 23.8 Started: 11/30/2001 Passive Smoke Exposure: Current Smokeless [...] afraid of your partner or ex-partner? No 08/09/2025 Within the last year, have y ou been humiliated or emotionally abused in other ways by your partner or ex-partner? No Within the last year, have y ou been kicked, hit, slapped, or otherwise physically hurt by your partner or ex-partner? No 08/09/2025 Within the last year, have y ou been raped or forced to have any kind of sexual activity by your partner or ex-partner? No 08/09/2025 AUDIT-C Answer Date Recorded Q1: How often [...] the money to buy more. Never true 08/09/20 25 Within the past 12 months, t he food you bought just didn't last and you didn't have money to get more. Never true 08/09/2025 PRAPARE - Transportation Answer Date Re corded In the past 12 months, has l ack of transportation kept you from medical appointments or from getting medications? No 07/31 In the past 12 months, has l ack of transportation kept you from meetings, work, or from getting things needed for daily living? No 08/09/2025 Housing Stability Vital Sign Answer Yovany e Recorded In the last 12 months, was t here a time when you were not able to pay the mortgage or rent on time? No 08/09/2025 In the past 12 months, how m any times have you moved where you were living? 0 08/09/2025 At any time in the past 12 m [facility], were you homeless or living in a mcc (including now)? No 08/09/2025 [facility] Utilities Answer Date Recorded In the past 12 months has [employer], gas, oil, or water company threatened to shut off services in your home? No 08/09/2025 Safety and Environment Answer Date Abraham rded Do you worry that your child may have been physically abused? No 07/25/2024 Do you worry that your child may have been sexua lly abused? No 07/25/2024 Are there any guns kept in o r around your home or where your child spends time? No 07/25/2024 Guns Unloaded or Locked Away Not on file PHQ-2A Answer Date Recorded Patient Health Questionnaire-2 Score 0 04/23/2023 Comments No Sex and Gender Information Value Date Recorded Sex Assigned at Female 06/19/2021 8:21 AM EDT Legal Sex Female 8:54 PM EDT Gender Identity Female 06/19/2021 8:21 AM EDT Sexual Orientation Straight 06/19/2021 8 :21 AM EDT documented as of this encounter Functional Status * Calculated C-SSRS Risk Score (Lifetime/Recent) Answer Date of Assessment Author No Risk Indicated 08/21/2025 8:00 PM EDT Ary Jewell RN * Question Answer Date of Assessment Author 1. Wish to be (Past 1 Month) No 025 8:00 PM EDT Ary Jewell RN 2. Non-Specific Active Suici omar Thoughts (Past 1 Month) No 08/21/2025 8:00 PM EDT Elida Jewell RN 6. Suicidal Behavior (Lifetime) No 8:00 PM EDT Ary Jewell RN documented as of this encounter Miscellaneous Notes * Addendum Note - Melodie Stubbs, KATY, DNP - 08/23/2025 2:24 PM EDT Addendum created 08/23/25 1424 by Melodie Stubbs CRNA, DNP Intraprocedure Event edited, Intraprocedure Staff edited * Anesthesia Postprocedure Evaluation - Melodie Stubbs CRNA, DNP - 08/21/2025 4:23 PM EDT Patient: Veronica Weiss Anesthesia Type: general Vitals Value Taken Time BP 156/71 08/21/25 16:16 Temp 99.0 08/21/25 16:16 Pulse 96 08/21/25 16:16 Resp 25 08/21/25 16:16 SpO2 97 % 08/21/25 16:16 Vitals shown include unfiled device data. Anesthesia Post Evaluation Patient location during evaluation: PACU Patient participation: complete - patient participated Level of consciousness: awake and baseline Pain management: adequate (pain score 0-3) Airway patency: natural airway Cardiovascular status: acceptable and hemodynamically stable Respiratory status: acceptable, nasal cannula, spontaneous ventilation and unassisted Hydration status: acceptable Nausea/Vomiting: No No notable events documented. * Anesthesia Preprocedure Evaluation - Sosa Cadet MD - 08/21/2025 7:15 AM EDT Images from the original note were not included. HPI Veronica Weiss is a 50 y.o. 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 Transferred to MICU 08/17 for hypotension requiring vasopressors. She has been off pressors since the morning of 08/19 and has been accepted back to team as downgrade. Pertinent information at handoff includes patient is NPO at midnight for muscle biopsy on 08/21, is being treated with Vancomycin and zosyn for possible Staph epidermidis bacteremia (iso no other obvious cause for sepsis). Neurology is following she is s/p LP 08/21. TTE 2024: LVEF 50-60%, St tiffany 19mm mechanical valve-mean gradient 31mmHg which is abnormally high.No other significant valvular stenosis or regurgitation. Per cards note/ consult on 08/12 patient has mild to moderate . -echo shows preserved LVEF, no RWMA, normal Diastolic function, mild/mod with ROB 1.3, peak gradient 31 and mean gradient 16 Procedure Information Date/Time: 08/21/25 1430 Procedure: BIOPSY, MUSCLE (Right) Location: [facility] OR Surgeons: Carla Montes MD Relevant Problems Cardio (+) Chronic atrial fibrillation (CMS/HCC) (+) Essential hypertension (+) Migraines /Renal (+) Status post mechanical aortic valve replacement Neuro/Psych (+) Migraines (+) Status post mechanical aortic valve replacement Pulmonary (+) Allergic rhinitis (+) COPD (chronic obstructive pulmonary disease) (CMS/HCC) ALLERGIES Allergies[1] NPO STATUS Past Medical History[2] AIRWAY HISTORY Airway Detailed Review Displaying the 20 most recent records Date Difficult Airway Blade Size ETT Size C-L Class Final Type Intubation Method 06/11/21 - - - - - - MEDICATIONS Outpatient Current Outpatient Medications Medication Instructions albuterol 108 (90 Base) MCG/ACT inhaler 2 puffs, Inhalation, As needed alendronate (Fosamax) 70 MG tablet TAKE 1 TABLET BY MOUTH ONCE EVERY 7 DAYS ON AN EMPTY STOMACH WITH A FULL GLASS OF WATER. DO NOT LIE DOWN OR TAKE ANYTHING ELSE FOR 30 MINUTES buprenorphine-naloxone (Suboxone) 8-2 MG SL tablet 2 tablets, Daily cholecalciferol (VITAMIN D-3) 2,000 Units, Daily clonazePAM (KLONOPIN) 0.5 mg, 3 times daily PRN fluticasone (Flonase) 50 MCG/ACT nasal spray 1 spray, Each Nostril, Daily, Shake gently. Before first use, prime pump. After use, clean tip and replace cap. furosemide (LASIX) 40 mg, Oral, Daily megestrol (MEGACE) 200 mg, Oral, 2 times daily, Shake well just before you measure a dose. Measure with a special dose-measuring spoon or medicine cup, not with a regular table spoon. If you do not have a dose-measuring device, ask your pharmacist for one. metoprolol succinate XL (TOPROL-XL) 25 mg, Daily Stiolto Respimat 2.5-2.5 MCG/ACT aerosol solution inhaler INHALE 2 PUFFS BY MOUTH ONCE A DAY warfarin (Coumadin) 5 MG tablet Take 1 tablet by mouth once daily, except take 1 and 1/2 tablet (7.5mg) on Thursday, Thursday, and Thursday Scheduled Current Scheduled Medications[3] PRNs Current PRN Medications[4] SURGICAL HX: Surgical History[5] SOCIAL HX: Social History[6] OBJECTIVE DATA LABS Lab Results Component Value Date WBC 15.41 (H) 08/20/2025 HGB 8.3 (L) 08/20/2025 HCT 26.7 (L) 08/20/2025 MCV 97 08/20/2025 PLT 408 (H) 08/20/2025 Lab Results Component Value Date CALCIUM 8.7 (L) 08/20/2025 BUN 35 (H) 08/20/2025 CREATININE 0.70 08/20/2025 BCR 50 08/20/2025 NA 137 08/20/2025 K 4.3 08/20/2025 CL 104 08/20/2025 CO2 26 08/20/2025 CA 9.0 11/16/2020 Type and Screen ABO/Rh Date Value Ref Range Status 08/20/2025 O Negative Final Results from last 7 days Lab Units 08/20/25 0535 INR 1.0 Lab Results Component Value Date HGBA1C 5.5 08/07/2025 HGBA1C 5.4 03/27/2025 Lab Results Component Value Date PGLU 153 (H) 08/21/2025 GLUCOSE 123 (H) 08/20/2025 ABG Lab Results Component Value Date POCTCL 106 08/20/2025 LACTATE 1.2 08/20/2025 Lab Results Component Value Date HCTSYR 23.6 (L) 08/17/2025 KSYR 3.8 08/17/2025 CLSYR 99 08/17/2025 GLUSYR 112 (H) 08/17/2025 CAION 4.9 08/20/2025 LACTATE 1.2 08/20/2025 ECHO Echo, Adult Transthoracic Complete Result Date: 08/15/2025 The left ventricle is small. There is concentric remodeling. The left ventricular systolic functionis normal. The LVEF is visually estimated at 50 - 60%. Unable to assess diastolic function due to poor image quality. The septal motion is most consistent with septal translation associated with prior cardiac surgery. Aortic Valve: There is a mechanical valve ([address] tiffany). The mean gradient is 31 mmHg. The gradient is abnormally high for this prosthetic valve. DVI 0.34. No pericardial effusion. There is no recent study available for direct xiir-dw-zits comparison. Echo, Adult Transthoracic Limited w/ Contrast Result Date: 08/07/2025 [place] [id number] Name: VERONICA WEISS Exam Date: 08/07/2025 : 1975 Age 49 years Gender: F Physician: JOSSE MONTENEGRO Facility: [facility] Facility HSV: Inpatient Exam: ECHO W OR WO/W CONTRAST SUMMARY Normal LV size with normal function. The ejection fraction is 55-60%. There is a Mechanical AV prosthesis.There is mild to moderate aortic stenosis (DI 0.43,Mean grad=16mmHg, ROB=1.34cmA ). INTERPRETATION DETAIL Good quality study. Left ventricle: The left ventricle is normal in size with normal systolic function. The ejection fraction is 55-60%. There is top normal LV wall thickness. LV geometry is normal. The left ventricular wall motion is normal. Mitral filling indicates Normal diastolic function. Left atrium: The left atrium is normal. LA volume: 30.8mL, LA volume index: 20.3mL/mA . Right ventricle: The right ventricle is normal in size with normal function. Right atrium: The right atrium is normal. Mitral valve: The mitral valve is normal. There isno mitral stenosis. There is no mitral regurgitation. Aortic valve: There is mild to moderate aortic stenosis with a valve area of 1.34 nurse healthcare manager (Peak grad=31mmHg, Mean grad=16mmHg, LVOT grady=2.00cm, LVOT TVI=14.2cm, Ao TVI=33.3cm). The dimensionless index is 0.43. AV peak nxgdvzjk=642zr/sec. There is a Mechanical AV prosthesis. Tricuspid valve: The tricuspid valve is normal. There is no tricuspid regurgitation, so PA pressure cannot be estimated. Pulmonic valve: The pulmonic valve is normal. Pericardium: The pericardium is normal. Pulmonary artery: The pulmonary artery is normal. Interatrial septum: The interatrial septum is normal. Aorta: The aorta is normal. The aortic root is normal. Aortic dimensions - Ao M-mode= 3.10cm, Ascending=3.00cm. Vena Cava: The inferior vena cava is normal. MEASUREMENTS Left Ventricle IVSd: 1.09cm (0.6-1.1cm) PWd: 0.94cm (0.6-1.1cm) Mass Naz: 123g LVMI: 81g/mA (>50-95g/m) LVIDd: 3.86cm (3.7-5.6 cm) LVIDdI: 2.54cm/m2 LVIDs: 2.73cm (1.8-4.2 cm) LVIDsI: 1.80cm/m2 RWT: 0.49 (<0.42) E to A: 1.08 (0.6-2) E-e prime med: 14.00 E-e prime lat: 8.17 Decel: 172.00ms (168-232ms) Right Ventricle Mid RV Grady: 2.0cm (2.7-3.3cm) Max Valve Velocities AV peak calixto: 278cm/ sec LVOT: 124.00cm/sec Legally authenticated by PATTIE Yun 2025-08-07 12:49:32 Atria LA AP: 3.0cm LA vol: 30.8mL SHREYAS: 20.3mL/mA (16-28ml/m2) Damián Blankenship MD Dictated By: DAMIÁN BLANKENSHIP Transcribed By: Transcribed On: 08/07/2025 12:49 PM Electronically signed by: DAMIÁN BLANKENSHIP 08/07/2025 Thank you for referring VERONICA WEISS to [facility]. Legally authenticated by PATTIE Yun 2025-08-07 12:49:32 PFTs No results found for: [id number] , [id number] , [id number] , FVCPRED BP Readings from Last 5 Encounters: 08/21/25 135/72 08/08/25 (!) 144/88 07/14/25 (!) 150/96 06/07/25 130/88 03/27/25 (!) 168/95 Physical Exam Airway Mallampati: II Mouth opening: normal TM distance: >3 FB Neck ROM: full Cardiovascular Rhythm: regular Rate: normal Dental Pulmonary Breath sounds clear to auscultation (-) wheezes Neurological Oriented: normal to time, normal to place and normal to person Comments: Bilateral upper and lower extremity weakness Skin Comments: Several large fluid filled blisters throughout Musculoskeletal Extremities (-) clubbing and cyanotic Other findings: DHT in place Anesthesia Plan ASA 4 Plan was reviewed with: MANAGER GLOBAL Anesthesia technique(s) discussed with the patient/family: general and MAC Anesthesia plan agreed upon was: MAC Anesthetic plan and risks discussed with patient. Comment: Due to generalized weakness and accessory muscle use, decided to perform biopsy under MAC.Discussed with surgical team who said they will be able to use local for the biopsy as well. Discussed with patient that if she were to have to be intubated for the procedure there is risk she would likely have to remain intubated. Patient verbalized understanding and is willing to proceed with procedure under MAC. ROS Anesthesia: history of previous anesthesia. Does not have a history of anesthetic complications. [1] Allergies Allergen Reactions Tramadol Anaphylaxis and Unknown - Patient states they do not know rxn details Prev tolerated hydrocodone Ibuprofen Hives and Unknown - Patient states they do not know rxn details [2] Past Medical History: Diagnosis Date Allergic Anxiety Aortic insufficiency with aortic stenosis 03/18/2021 Arthritis Asthma Coronary artery disease Hypertension Osteopenia Syncope Vitamin D deficiency [3] [Held by provider] enoxaparin, 1 mg/kg, Subcutaneous, q12h fluticasone, 1 spray, Each Nostril, Daily midodrine, 15 mg, Nasogastric, q8h piperacillin-tazobactam, 4.5 g, Intravenous, q6h polyethylene glycol, 17 g, Nasogastric, BID senna, 8.6 mg, Nasogastric, BID [COMPLETED] Insert peripheral IV, , , Once AND [COMPLETED] Saline lock IV, , , Once AND sodium chloride, 10 mL, Intravenous, q12h AND [DISCONTINUED] sodium chloride, 10 mL, Intravenous, PRN Umeclidinium-Vilanterol, 1 Inhalation, Inhalation, Daily vancomycin, 750 mg, Intravenous, q18h [4] PRN medications: acetaminophen, calcium carbonate, camphor-menthol, clonazePAM, glucose OR dextrose 10 % OR dextrose 10 % OR glucagon (human recombinant), ipratropium-albuterol, oxyCODONE, phenol, prochlorperazine OR [DISCONTINUED] prochlorperazine OR [DISCONTINUED] prochlorperazine OR prochlorperazine [5] Past Surgical History: Procedure Laterality Date CHOLECYSTECTOMY HYSTERECTOMY N/A ORAL SURGERY [6] Social History Tobacco Use Smoking status: Some Days Current packs/day: 1.00 Average packs/day: 1 pack/day for 23.7 years (23.7 ttl pk-yrs) Types: Cigarettes Start date: 11/30/2001 Passive exposure: Current Smokeless tobacco: Never Vaping Use Vaping status: Every Day Substances: Nicotine, Flavoring Devices: Disposable Substance Use Topics Alcohol use: Never Drug use: Never Comment: Suboxone documented in this encounter Plan of Treatment Upcoming Encounters Date Type Department Care Team (Late st Contact Info) Description 10/12/2025 11:20 AM EST Office Visit [facility] [address] [place] [address] Rodolfo Rhoades MD [address] [place] [address] documented as of this encounter Visit Diagnoses Not on filedocumented in this encounter Administered Medications Inactive Administered Medications - up to 3 most recent administrations Medication Order MAR Action Action Date Dose Rate Site ceFAZolin (Ancef) injection Intravenous, As needed, Starting on Thu08/21/25 at 1505, Until Thu08/21/25 at 1623, Routine, Anesthesia Intraprocedure Given 08/21/2025 3:05 PM EDT 2 g dexmedetomidine in NS (Precedex) 4 mcg/mL infusion Intravenous, As needed, Starting on Thu08/21/25 at 1505, Until Thu08/21/25 at 1623, Routine Given 08/21/2025 3:13 PM EDT 4 mcg Given 08/21/2025 3:08 PM EDT 4 mcg Given 08/21/2025 3:05 PM EDT 4 mcg lactated Ringer's infusion Intravenous, Continuous PRN, Starting on Thu08/21/25 at 1458, Until Thu08/21/25 at 1623, Routine New Bag 08/21/2025 2:58 PM EDT midazolam (Versed) injection Intravenous, As needed, Starting on Thu08/21/25 at 1502, Until Thu08/21/25 at 1623, Routine, Anesthesia Intraprocedure Given 08/21/2025 3:02 PM EDT 0.5 mg documented in this encounter Additional Health Concerns Assessment Noted Time PHQ-9 Depression Total Score: 11 025 10:59 AM EDT A fall risk assessment has been complete d for the patient 03/19/2023 1:57 PM EDT A Body Mass Index follow-up plan has been documented for the patient 09/06/2025 3:19 PM EDT documented as of this encounter Care Teams Touch Up Worker Relationship Specialty Start Date End Date Rodolfo Rhoades MD [address] [place] [place] [phone] PCP - General Family Medicine 02/02/25 documented as of this encounter
--- OUTSIDE RECORDS SUMMARY | 2025-09-15 13:00 | XMS_ITS | Encounter Summary ---
Author Organization Healthcare Address [facility] [place] [address] Care Team Providers Care Plug Overwrap Machine Tender Name Role Phone Rodolfo Rhoades MD Primary Care Provider [phone] So Caicedo LPN Unavailable Unavailable Reason for Visit * Reason Comments transition of health Leg wound infection Encounter Details Date Type Department Care Team (Late st Contact Info) Description 09/15/2025 1:00 PM EDT Office Visit [facility] [address] [place] [address] Rodolfo Rhoades MD [address] [place] [address] Sequela, post-stroke (Primary Dx); Non-traumatic [...] in a halfway (including now)? No 08/09/2025 [facility] Utilities Answer Date Recorded In the past [...] Jozef Sanders 6. Suicidal Behavior (Lifetime) No 1:22 PM EDT Jozef Sanders documented as of this encounter Miscellaneous Notes * Progress Notes - Rodolfo Rhoades MD - 09/15/2025 1:00 PM EDT Transitional Care Management Progress Note: [id number] Visit Patient: Veronica Weiss : 1975 PCP: Rodolfo Rhoades MD Subjective Veronica Weiss is a 50 y.o. female presenting today for follow-up after being discharged from the hospital 9 days ago. The main problem requiring admission was non-traumatic rhabdomyolysis. The discharge summary and/or Transitional Care Management documentation was reviewed. Medication reconciliation was performed as indicated via the Jac as Reviewed timestamp. Veronica Weiss was contacted by Transitional Care Management services two days after her discharge. This encounter and supporting documentation was reviewed. The complexity of medical decision making for this patient's transitional care is high. HPI Patient was admitted 08/08/2025 and discharged on 09/06/2025. Patient was transferred from an outside hospital due to concerns of hemo-pneumoperitoneum and loss of bilateral pedal pulses. CT angio chest, abdomen and pelvis with runoff showed no acute vascular pathology. Small left pleural effusion with associated atelectasis noted and moderate amount of free fluid in the abdomen. She was noted tohave severe rhabdomyolysis treated with IV fluids. She did require as he is stay until she is hemodynamically stable. She was on pressors for a period while getting IV fluids. She was treated with zosyn for staph-epi bactermia given sepsis with questionable contaminated blood culture. Was started on gabapentin for severe nerve pain, and increased sensation. MRI of head suggestive of possible strokes. Multiple foci of susceptibility in the bilateral parietal, and occipital and left temporal lobes as well as the right thalamus, sequelae of prior microhemorrhage. She reports improvements but is still having a lot of weakness in both legs. Currently in a wheelchair. He has a lot of hypersensitivity the skin. Review of Systems: Review of Systems Constitutional: Negative for fatigue and fever. Respiratory: Negative for cough and shortness of breath. Cardiovascular: Negative for chest pain. Musculoskeletal: Positive for gait problem and myalgias. Neurological: Positive for weakness and numbness. Past Medical History: Medical/Surgical/Social/Family History I have reviewed and updated the patient history. Past Surgical History: Family History: Objective Physical Exam Constitutional: Appearance: She is ill-appearing. She is not toxic-appearing. Comments: In a wheelchair HENT: Head: Normocephalic and atraumatic. Cardiovascular: Rate and Rhythm: Normal rate and regular rhythm. Heart sounds: Normal heart sounds. No murmur heard. Pulmonary: Effort: Pulmonary effort is normal. No respiratory distress. Breath sounds: Normal breath sounds. No wheezing or rhonchi. Neurological: Mental Status: She is alert. Sensory: Sensory deficit present. Motor: Weakness present. Psychiatric: Mood and Affect: Mood normal. Behavior: Behavior normal. Assessment/Plan Assessment & Plan Sequela, post-stroke Non-traumatic rhabdomyolysis Mixed hyperlipidemia Vitamin D deficiency Chronic atrial fibrillation (CMS/HCC) Essential hypertension Anemia, unspecified type Follow-up: 4 weeks nerve pain follow up Rodolfo Rhoades MD 09/15/2025 1:34 PM Note to patient: The Century Cures Act [...] Description 10/12/2025 11:20 AM EST Office Visit [facility] [address] [place] [address] Rodolfo Rhoades MD [place] [address] documented as of this encounter Procedures [...] - 1,033 pg/mL 09/15/2025 7:49 PM EDT [facility] Blood Venous blood specimen / Unknown Venipuncture / Unknown 09/15/2025 2:12 PM EDT 09/15/2025 2:12 PM EDT Rodolfo Rhoades MD LAB BLOOD ORDERABLES Final Res ult [facility] [address] [place] [address] * Iron, Plasma (09/15/2025 2:12 PM EDT) Iron, Plasma 40 30 - 160 ug/dL 09/15/2025 7:36 PM EDT [facility] Blood Venous blood specimen / Unknown Venipuncture / Unknown 09/15/2025 2:12 PM EDT 09/15/2025 2:12 PM EDT Rodolfo Rhoades MD LAB BLOOD ORDERABLES Final Res ult [facility] [address] [place] [address] * (ABNORMAL) Ferritin, Serum (09/15/2025 2:12 PM EDT) Ferritin, Serum 356(H) 13 - 150 ng/mL 09/15/2025 7:49 PM EDT [facility] Blood Venous blood specimen / Unknown Venipuncture / Unknown 09/15/2025 2:12 PM EDT 09/15/2025 2:12 PM EDT Rodolfo Rhoades MD LAB BLOOD ORDERABLES Final Res ult Performing Organization Address [facility]/ZIP Co de Phone Number [facility] [address] [place] [address] * (ABNORMAL) Creatine Kinase, Total, Plasma (09/15/2025 2:12 PM EDT) Creatine Kinase, Plasma 215(H) 37 - 168 U/L 09/15/2025 7:36 PM EDT [facility] Blood Venous blood specimen / Unknown Venipuncture / Unknown 09/15/2025 2:12 PM EDT 09/15/2025 2:12 PM EDT Rodolfo Rhoades MD LAB BLOOD ORDERABLES Final Res ult Performing Organization Address [facility] Co de Phone Number [facility] [address] [place] [address] * (ABNORMAL) CBC and Differential (09/15/2025 2:12 PM EDT) Pathologist [facility] [place] WBC Count 8.31 3.70 - 10.30 10*3/uL LAB HEMATOLOGY METHOD 09/15/2025 7:19 PM EDT [facility] RBC Count 3.45(L) 3.90 - 5.20 10*6/uL LAB HEMATOLOGY METHOD 09/15/2025 7:19 PM EDT [facility] HGB 10.4(L) 11.2 - 15.7 g/dL LAB HEMATOLOGY METHOD 09/15/2025 7:19 PM EDT [facility] HCT 34.9 34.0 - 45.0 % LAB HEMATOLOGY METHOD 09/15/2025 7:19 PM EDT [facility] Platelet Count 331 155 - 369 10*3/uL LAB HEMATOLOGY METHOD 09/15/2025 7:19 PM EDT [facility] MCV 101(H) 79 - 98 fL LAB HEMATOLOGY METHOD 09/15/2025 7:19 PM EDT [facility] MCH 30.1 26.0 - 32.0 pg LAB HEMATOLOGY METHOD 09/15/2025 7:19 PM EDT [facility] MCHC 29.8(L) 30.7 - 35.5 g/dL LAB HEMATOLOGY METHOD 09/15/2025 7:19 PM EDT [facility] RDW 15.2(H) 11.5 - 14.5 % LAB HEMATOLOGY METHOD 09/15/2025 7:19 PM EDT [facility] MPV 9.7 8.8 - 12.5 fL LAB HEMATOLOGY METHOD 09/15/2025 7:19 PM EDT [facility] nRBC 0.0 <=0.0 per 100 WBCs LAB HEMATOLOGY METHOD 09/15/2025 7:19 PM EDT [facility] Differential Type Automated LAB HEMATOLOGY METHOD 09/15/2025 7:19 PM EDT [facility] Neutrophils % 62 % LAB HEMATOLOGY METHOD 09/15/2025 7:19 PM EDT [facility] Lymphocytes % 27 % LAB HEMATOLOGY METHOD 09/15/2025 7:19 PM EDT [facility] Monocytes % 8 % LAB HEMATOLOGY METHOD 09/15/2025 7:19 PM EDT [facility] Eosinophils % 3 % LAB HEMATOLOGY METHOD 09/15/2025 7:19 PM EDT [facility] Basophils % 0 % LAB HEMATOLOGY METHOD 09/15/2025 7:19 PM EDT [facility] Immature Granulocytes % 0 % LAB HEMATOLOGY METHOD 09/15/2025 7:19 PM EDT [facility] Neutrophils Absolute 5.13 1.60 - 6.10 10*3/uL LAB HEMATOLOGY METHOD 09/15/2025 7:19 PM EDT [facility] Lymphocytes Absolute 2.20 1.20 - 3.90 10*3/uL LAB HEMATOLOGY METHOD 09/15/2025 7:19 PM EDT [facility] Monocytes Absolute 0.70 0.30 - 0.90 10*3/uL LAB HEMATOLOGY METHOD 09/15/2025 7:19 PM EDT [facility] Eosinophils Absolute 0.22 0.00 - 0.50 10*3/uL LAB HEMATOLOGY METHOD 09/15/2025 7:19 PM EDT [facility] Basophils Absolute 0.03 0.00 - 0.10 10*3/uL LAB HEMATOLOGY METHOD 09/15/2025 7:19 PM EDT [facility] Immature Granulocytes Absolute 0.03 0.00 - 0.06 10*3/uL LAB HEMATOLOGY METHOD 09/15/2025 7:19 PM EDT [facility] Blood Venous blood specimen / Unknown Venipuncture / Unknown 09/15/2025 2:12 PM EDT 09/15/2025 2:12 PM EDT Narrative [facility] - 09/15/2025 7:19 PM EDT Therapeutic decision making should be based on absolute values, rather than percentages. us Rodolfo Rhoades MD LAB BLOOD ORDERABLES Final Res ult [facility] [address] [place] [address] * (ABNORMAL) Comprehensive Metabolic Panel, Plasma (09/15/2025 2:12 PM EDT) Glucose, Plasma 73(L) 74 - 99 mg/dL 09/15/2025 7:36 PM EDT [facility] BUN, Plasma 6(L) 7 - 21 mg/dL 09/15/2025 7:36 PM EDT [facility] Creatinine, Plasma 0.56(L) 0.60 - 1.10 mg/dL 09/15/2025 7:36 PM EDT [facility] BUN/Creatinine Ratio 11 09/15/2025 7:36 PM EDT [facility] Sodium, Plasma 139 136 - 145 mmol/L 09/15/2025 7:36 PM EDT [facility] Potassium, Plasma 4.2 3.6 - 4.9 mmol/L 09/15/2025 7:36 PM EDT [facility] Chloride, Plasma 100 97 - 107 mmol/L 09/15/2025 7:36 PM EDT [facility] CO2, Plasma 31(H) 22 - 29 mmol/L 09/15/2025 7:36 PM EDT [facility] Anion Gap 8 6 - 16 mmol/L 09/15/2025 7:36 PM EDT [facility] Total Calcium, Plasma 10.1 8.9 - 10.2 mg/dL 09/15/2025 7:36 PM EDT [facility] Total Protein 7.1 6.3 - 7.9 g/dL 09/15/2025 7:36 PM EDT [facility] Albumin, Plasma 3.4(L) 3.5 - 5.2 g/dL 09/15/2025 7:36 PM EDT [facility] AST, Plasma 26 10 - 35 U/L 09/15/2025 7:36 PM EDT [facility] ALT, Plasma 16 10 - 35 U/L 09/15/2025 7:36 PM EDT [facility] Alkaline Phosphatase, Plasma 108(H) 35 - 104 U/L 09/15/2025 7:36 PM EDT [facility] Total Bilirubin, Plasma 0.4 0.2 - 1.1 mg/dL 09/15/2025 7:36 PM EDT [facility] eGFRcr 112.7 mL/min/1.7 3m*2 09/15/2025 7:36 PM EDT [facility] Comment:Reported eGFRcr in m L/min/1.73m2 is based the CKD-EPI 2020 equation that does not use a race coefficient. Blood Venous blood specimen / Unknown Venipuncture / Unknown 09/15/2025 2:12 PM EDT 09/15/2025 2:12 PM EDT us Rodolfo Rhoades MD LAB BLOOD ORDERABLES Final Res ult [facility] [address] [place] [address] documented in this encounter Visit Diagnoses Diagnosis [...] plan has been documented for the patient 09/25/2025 9:44 AM EDT documented as of this encounter Care Teams Plug Overwrap Machine Tender Relationship Specialty Start Date End Date Rodolfo Rhoades MD [address] [place] [id number] PCP - General Family Medicine 02/02/25 So Caicedo LPN [employer] [place] [address] TCM Nurse 09/07/25 documented as of this encounter
--- OUTSIDE RECORDS SUMMARY | 2025-09-29 10:45 | XMS_ITS | Encounter Summary ---
Author Organization [facility] Address [address] [id number] Care Team Providers Care Condenser Cleaner Name Role Phone Georgette Moore APRN Primary Care Provider [phone] Veronica [place] LPN Unavailable Unavailable Margaret Ro Unavailable Unavailable Rodolfo Rhoades MD Primary Care Provider [phone] Marianne Bolaños Unavailable Unavailable Ariana Bagley Unavailable Unavailable So Caicedo HEAVY TRUCK TECHNICIAN Unavailable Unavailable Encounter Details Date Type Department Care Team (Late st Contact Info) Description 02/06/2022 Outside Procedure External Location [address] [place] [id number] Provider, Swapnil [place] Social History Tobacco Use Types Packs/Day Years [...] Description 10/12/2025 11:20 AM EST [facility] [address] [place] [address] Rodolfo Rhoades MD [address] [place] [address] documented as of this encounter Procedures Procedure Name Priority Date/Time Associated Diagnosis Comments XR LUMBAR SPINE 2 OR 3 VIEWS 02/06/2022 2:09 PM EST documented in this encounter Results * XR Lumbar Spine 2 or 3 Views (02/06/2022 2:09 PM EST) Anatomical Region Laterality Modality Spine, L-spine Radiographic Tierra ging 02/06/2022 2:09 PM EST Narrative 02/06/2022 3:19 [place] [address] Name: VERONICA ALVAREZ Exam Date: 02/06/2022 : 1975 Age 46 Gender: F Physician: HORACE RYAN Facility: [facility] Facility HSV: Outpatient Exam: [id number] [...] Thank you for referring VERONICA ALVAREZ to [facility]. Legally authenticated by GADIEL DELEON 2022-02-06 15:07:32 Procedure Note Provider, [facility] - 02/06/2022 [place] [address] Name: VERONICA ALVAREZ Exam Date: 02/06/2022 : 1975 Age 46 Gender: F Physician: HORACE RYAN Facility: [facility] Facility HSV: Outpatient Exam: [id number] [...] On: 02/06/2022 3:07 PM Electronically signed by: SETHER RAMESH 02/06/2022 Thank you for referring VERONICA ALVAREZ to [facility]. Legally authenticated by GADIEL DELEON 2022-02-06 15:07:32 Generic [place] Provider IMG XR PROCEDURES Fi nal Result [...] documented as of this encounter Care Teams Condenser Cleaner Relationship Specialty Start Date End Date Georgette Moore APRN [address] [place] [address] PCP - General 04/12/21 02/01/25 Rodolfo Rhoades MD [address] [place] [address] PCP - General Family Medicine 02/02/25 Veronica [place] LPN [employer] [place] [address] TCM Nurse 07/25/24 08/25/24 Margaret oR Community Health Worker 07/27/24 4 Marianne Bolaños Clinical Change Management Consultant 07/14/25 07/28/25 Ariana Bagley Community Health Worker 07/14/25 07/14/25 So Caicedo LPN [employer] [place] [address] TCM Nurse 09/07/25 documented as of this encounter
--- OUTSIDE RECORDS SUMMARY | 2025-09-29 10:45 | XMS_ITS | Encounter Summary ---
Author Organization [facility] Address [facility] [place] [address] Care Team Providers Care Bathroom Tiling Professional Name Role Phone Georgette Moore APRN Primary Care Provider [phone] Veronica [place] LPN Unavailable Unavailable Margaret Ro Unavailable Unavailable Rodolfo Rhoades MD Primary Care Provider [phone] Marianne Bolaños Unavailable Unavailable Ariana Bagley Unavailable Unavailable So Caicedo LPN Unavailable Unavailable Reason for Visit * Reason Comments Med Refill Encounter Details Date Type Department Care Team (Late st Contact Info) Description 12/21/2021 Refill Family and Community Medicine [address] [place] [address] Georgette Moore APRN [address] [place] [address] Chronic fatigue Social History Tobacco [...] Description 10/12/2025 11:20 AM EST Office Visit [facility] [address] [place] [address] Roodlfo Rhoades MD [address] [place] [address] documented as of this encounter [...] documented as of this encounter Care Teams Bathroom Tiling Professional Relationship Specialty Start Date End Date Georgette Moore APRN [address] [place] [address] PCP - General 04/12/21 02/01/25 Rodolfo Rhoades MD [address] [place] [phone] PCP - General Family Medicine 02/02/25 Veronica [place] LPN [employer] [address] TCM Nurse 07/25/24 08/25/24 Margaret Ro Community Health Worker 07/27/24 4 Wages, Marianne Delgado Clinical Manager Life 07/14/25 07/28/25 Ariana Bagley Community Health Worker 07/14/25 07/14/25 So Caicedo LPN [employer] [address] TCM Nurse 09/07/25 documented as of this encounter
--- OUTSIDE RECORDS SUMMARY | 2025-09-29 10:45 | XMS_ITS | Encounter Summary ---
Author Organization Healthcare Address [address] [place] [address] Care Team Providers Care Delinquency Prevention Social Worker Name Role Phone Rodolfo Rhoades MD Primary Care Provider [phone] Encounter Details Date Type Department Care Team (Late st Contact Info) Description 08/06/2025 Orders Only External Location [address] [place] [address] [place] [address] [place] [address] Social History Tobacco Use Types Packs/Day Years [...] in a residential (including now)? No 08/09/2025 [facility] Utilities Answer Date Recorded In the past 12 months has e goTenna, gas, oil, or water [employer] threatened to shut off services in your [...] Description 10/12/2025 11:20 AM EST Office Visit [facility] [address] [place] [address] Rodolfo Rhoades MD [address] [place] [address] documented as of this encounter [...] documented as of this encounter Care Teams Delinquency Prevention Social Worker Relationship Specialty Start Date End Date Rodolfo Rhoades MD [address] [place] [address] PCP - General Family Medicine 02/02/25 documented as of this encounter
--- OUTSIDE RECORDS SUMMARY | 2025-09-29 10:45 | XMS_ITS | Encounter Summary ---
Author Organization Healthcare Address [address] [place] [address] Care Team Providers Care Health Outcomes Liaison Name Role Phone Rodolfo Rhoades MD Primary Care Provider [phone] Encounter Details Date Type Department Care Team [...] in a chcf (including now)? No 08/09/2025 [facility] Utilities Answer Date Recorded In the [...] Description 10/12/2025 11:20 AM EST Office Visit [facility] [address] [place] [address] Rodolfo Rhoades MD [address] [place] [address] documented as of this encounter [...] as of this encounter Care Teams Health Outcomes Liaison Relationship Specialty Start Date End Date Rodolfo Rhoades MD [address] [place] [address] PCP - General Family Medicine 02/02/25 documented as of this encounter
--- OUTSIDE RECORDS SUMMARY | 2025-09-29 10:45 | XMS_ITS | Encounter Summary ---
Author Organization [facility] Address [address] [id number] Care Team Providers Care Infant Childcare Provider Name Role Phone Georgette Moore APRN Primary Care Provider [phone] Veronica Goodwin LPN Unavailable Unavailable Margaret Ro Unavailable Unavailable Rodolfo Rhoades MD Primary Care Provider [phone] Marianne Bolaños Unavailable Unavailable Ariana Bagley Unavailable Unavailable So Caicedo INTERNATIONAL TRADE TEACHER Unavailable Unavailable Encounter Details Date Type Department Care Team (Late st Contact Info) Description 02/06/2022 Outside Procedure External Location [address] [place] [id number] Provider, Swapnil [place] Social History Tobacco Use Types Packs/Day Years [...] Description 10/12/2025 11:20 AM EST [facility] [address] [place] [address] Rodolfo Rhoades MD [address] [place] [address] documented as of this encounter Procedures Procedure Name Priority Date/Time Associated Diagnosis Comments XR THORACIC SPINE 3 VIEWS 02/06/2022 2:09 PM EST documented in this encounter Results * XR Thoracic Spine 3 Views (02/06/2022 2:09 PM EST) Anatomical Region Laterality Modality Spine, T-spine Radiographic Tierra ging 02/06/2022 2:09 PM EST Narrative 02/06/2022 3:19 [place] [address] Name: VERONICA ALVAREZ Exam Date: 02/06/2022 : 1975 Age 46 Gender: F Physician: HORACE RYAN Facility: [facility] Facility HSV: Outpatient Exam: THORACIC SPINE 3V [...] Thank you for referring VERONICA ALVAREZ to [facility]. Legally authenticated by GADIEL DELEON 2022-02-06 15:08:18 Procedure Note Provider, [facility] - 02/06/2022 [place] [address] Name: VERONICA ALVAREZ Exam Date: 02/06/2022 : 1975 Age 46 Gender: F Physician: HORACE RYAN Facility: [facility] Facility HSV: Outpatient Exam: THORACIC SPINE 3V [...] Thank you for referring VERONICA ALVAREZ to [facility]. Legally authenticated by GADIEL DELEON 2022-02-06 15:08:18 Generic [place] Provider IMG XR PROCEDURES Fi nal Result [...] documented as of this encounter Care Teams Infant Childcare Provider Relationship Specialty Start Date End Date Georgette Moore APRN [address] [place] [address] PCP - General 04/12/21 02/01/25 Rodolfo Rhoades MD [address] [place] [address] PCP - General Family Medicine 02/02/25 Veronica Goodwin LPN [employer] [place] [address] TCM Nurse 07/25/24 08/25/24 Margaret Ro Community Health Worker 07/27/24 4 Marianne Bolaños Clinical Refrigeration Technician 07/14/25 07/28/25 Ariana Bagley Community Health Worker 07/14/25 07/14/25 So Caicedo LPN VAL[employer] [place] [address] TCM Nurse 09/07/25 documented as of this encounter
--- OUTSIDE RECORDS SUMMARY | 2025-09-29 10:45 | XMS_ITS | Encounter Summary ---
Author Organization Healthcare Address [address] [place] [address] Care Team Providers Care Neonatal Intensive Care Nurse Name Role Phone Georgette Moore APRN Primary Care Provider [phone] Rodolfo Rhoades MD Primary Care Provider [phone] Wages, Marianne Delgado Unavailable Unavailable Ariana Bagley Unavailable Unavailable So Caicedo LPN Unavailable Unavailable Reason for Visit * Reason Comments Med Refill Encounter Details Date Type Department Care Team (Late st Contact Info) Description 11/28/2024 Refill [facility] [address] [place] [address] Imelda Burgos APRN [address] [place] [address] COPD exacerbation (CMS/HCC); Cough with [...] 10/12/2025 11:20 AM EST Office Visit [facility] [address] [place] [address] Rodolfo Rhoades MD [address] [place] [address] documented as of this encounter Visit Diagnoses Diagnosis COPD exacerbation (CMS/[facility]) Obstructive chronic bronchitis with exacerbation Cough with [...] documented as of this encounter Care Teams Neonatal Intensive Care Nurse Relationship Specialty Start Date End Date Georgette Moore APRN [address] [place] [address] PCP - General 04/12/21 02/01/25 Rodolfo Rhoades MD [address] [place] [address] PCP - General Family Medicine 02/02/25 Marianne Bolaños Clinical Catering Sales Manager 07/14/25 07/28/25 Ariana Bagley Community Health Worker 07/14/25 07/14/25 So Caicedo, ANTOINE VALUE-BASED [place] [address] TCM Nurse 09/07/25 documented as of this encounter
--- OUTSIDE RECORDS SUMMARY | 2025-09-29 10:45 | XMS_ITS | Encounter Summary ---
Author Organization Healthcare Address [address] [place] [address] Care Team Providers Care Immigration Services Officer Name Role Phone Rodolfo Rhoades MD Primary Care Provider [phone] Encounter Details Date Type Department Care Team [...] a skilled nursing (including now)? No 08/09/2025 [facility] Utilities Answer Date Recorded In the past [...] EST Office Visit [facility] [address] [place] [address] Rodolfo Rhoades MD [address] [place] [address] documented as of this encounter [...] documented as of this encounter Care Teams Immigration Services Officer Relationship Specialty Start Date End Date Rodolfo Rhoades MD [address] [place] [address] PCP - General Family Medicine 02/02/25 documented as of this encounter
--- OUTSIDE RECORDS SUMMARY | 2025-09-29 10:45 | XMS_ITS | Encounter Summary ---
Author Organization Healthcare Address [address] [id number] Care Team Providers Care Coal Briquette Machine Operator Name Role Phone Rodolfo Rhoades MD Primary Care Provider [phone] So Caicedo LPN Unavailable Unavailable Encounter Details Date Type Department Care Team (Late st Contact Info) Description 08/07/2025 Outside Procedure External Location [address] [place] [phone] Provider, Swapnil [place] Social History Tobacco Use Types Packs/Day Years [...] in a usp (including now)? No 08/09/2025 [facility] [...] Description 10/12/2025 11:20 AM EST Office Visit [facility] [address] [place] [address] Rodolfo Rhoades MD [address] [place] [address] documented as of this encounter Procedures Procedure Name Priority Date/Time Associated Diagnosis Comments ECHO, ADULT TRANSTHORACIC LIMITED W/ CONTRAST 08/07/2025 6:38 AM EDT documented in this encounter Results * Echo, Adult Transthoracic Limited w/ Contrast (08/07/2025 6:38 AM EDT) Anatomical Region Laterality Modality Ultrasound 08/07/2025 6:38 AM EDT Narrative 08/07/2025 12:51 PM EDT [address] [address] Name: VERONICA ALVAREZ Exam Date: 08/07/2025 : 1975 Age 49 years Gender: F Physician: JOSSE MONTENEGRO Facility: [facility] Facility HSV: Inpatient Exam: ECHO W [...] stenosis 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 The dimensionless index is 0.43. AV peak qukmqpim=534yc/sec. There is a Mechanical AV prosthesis. Tricuspid [...] [facility]. 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 The dimensionless index is 0.43. AV peak sdyspwyp=896ra/sec. There is a Mechanical AV prosthesis. Tricuspid [...] [facility]. Legally authenticated by PATTIE Yun 2025-08-07 12:49:32 us Generic [place] Provider CV ECHO PROCEDURES F inal Result [...] documented as of this encounter Care Teams Coal Briquette Machine Operator Relationship Specialty Start Date End Date Rodolfo Rhoades MD [address] [place] [address] PCP - General Family Medicine 02/02/25 So Caicedo LPN VALUE-BASED [place] [address] TCM Nurse 09/07/25 documented as of this encounter
--- OUTSIDE RECORDS SUMMARY | 2025-09-29 10:45 | XMS_ITS | Encounter Summary ---
Author Organization Healthcare Address [address] [id number] Care Team Providers Care Platform Mill Supervisor Name Role Phone Rodolfo Rhoades MD Primary Care Provider [phone] Encounter Details Date Type Department Care Team (Late st Contact Info) Description 08/08/2025 Orders Only External Location [address] [place] [address] [place] [address] [place] [address] Social History Tobacco Use Types Packs/Day Years [...] any time in the past 12 m [facility], were you homeless or living in a mcc (including now)? No 08/09/2025 [facility] Utilities Answer Date Recorded In the past 12 months has e [employer], gas, oil, or water [employer] threatened to shut off services in your [...] Description 10/12/2025 11:20 AM EST Office Visit [address] [address] Rodolfo Rhoades MD [address] [place] [address] documented as of this encounter [...] External Magnesium 2.2 1.8 - 2.4 MG/DL [facility] 08/08/2025 9:00 PM EDT 08/08/2025 9:05 PM EDT us Generic [place] Provider LAB BLOOD ORDERABLES Final Result [facility] * (ABNORMAL) Comprehensive Metabolic Panel, Plasma (08/08/2025 9:00 PM EDT) External Sodium 127(L) 136 - 145 mmol/L [facility] External Potassium 4.6 3.6 - 5.0 mmol/L [facility] External Chloride 94(L) 98 - 107 mmol/L [facility] External Carbon Dioxide 21.7 21.0 - 32.0 mmol/L [facility] External Anion Gap (AG) 15.9 [facility] External Glucose 135(H) 70 - 120 mg/dl [facility] External BUN 11 7 - 18 mg/dL [facility] External Creatinine Blood 0.4(L) 0.6 - 1.3 mg/dL [facility] External Estimated GFR 123 60- mlpermin [facility] Comment: GFR LIMITATION: The eGFR equation CKD-EPI 2020 is not applicable for pediatric patients or greater than 90 years of age. The following conditions may alter the GFR result: extremes in body size, malnutrition or obesity, skeletal muscle disease, paraplegia or quadriplegia, vegetarian diet or rapidly changing kiney function. External Osmolality (Calculated) 267(L) 275 - 301 mosm/kg [facility] Comment: OSMOLALITY IS A CALCULATION UTILIZING THE SERUM/PLASMA SODIUM, GLUCOSE AND UREA NITROGEN (BUN) LEVELS. FOR THE MOST ACCURATE RESULT A MEASURED SERUM OSMOLALITY IS SUGGESTED. External Total Protein 6.2(L) 6.4 - 8.2 g/dl [facility] External Albumin 1.8(L) 3.4 - 5.0 g/dl [facility] External Globulin 4.4 [facility] External Albumin/Globuli n Ratio 0.4(L) 0.7 - 2 [facility] External Calcium 8.3(L) 8.5 - 10.5 mg/dl [facility] External Bilirubin Total 1.00 0.10 - 1.00 mg/dL [facility] External AST (SGOT) 2362(H) 0 - 37 U/L [facility] External ALT (SGPT) 824(H) 0 - 65 U/L [facility] External Alkaline Phosphatase 93 46 - 116 U/L [facility] 08/08/2025 9:00 PM EDT 08/08/2025 9:05 PM EDT us Generic [place] Provider LAB BLOOD ORDERABLES Final Result Performing Organization Address [facility] Co de Phone Number [facility] * APTT (08/08/2025 9:00 PM EDT) External Partial Thromboplastin Time (PTT) 26.1 24.5 - 32.8 SECONDS [facility] 08/08/2025 9:00 PM EDT 08/08/2025 9:05 PM EDT [facility] Provider LAB BLOOD ORDERABLES Final Result Performing Organization Address [facility] Co de Phone Number [facility] * (ABNORMAL) Prothrombin Time/INR (08/08/2025 9:00 PM EDT) External Prothrombin Time (PT) 11.2 9.3 - 11.4 SECONDS [facility] External INR - Internormal Ratio 1.1(H) 0.97 - 1.05 Ratio [facility] Comment: INR is intended to be used ONLY for patients on stable oral anticoagulant therapy. Therapeutic Ranges: 2.0-3.0 Usual Therapeutic Range 2.5-3.5 For patients with history of Multiple Deep Vein Thrombus or Mechanical Heart Valves 08/08/2025 9:00 PM EDT 08/08/2025 9:05 PM EDT Generic [place] Provider LAB BLOOD ORDERABLES Final Result Performing Organization Address [facility]/ZIP Co de Phone Number [facility] * Methicillin Resistant Staphylococcus aureus (MRSA) Culture (08/08/2025 8:35 PM EDT) External Culture NEGATIVE NEGATIVE [facility] Nasal contents 08/08/2025 8: 35 PM EDT 08/08/2025 9:05 PM EDT Generic [place] Provider LAB MICROBIOLOGY - G ENERAL ORDERABLES Final Result Performing Organization Address [facility] de Phone Number [facility] * CT OUTSIDE IMAGES (08/08/2025 1:28 PM [...] documented as of this encounter Care Teams Platform Mill Supervisor Relationship Specialty Start Date End Date Rodolfo Rhoades MD [address] [facility] [place] [address] PCP - General Family Medicine 02/02/25 documented as of this encounter
--- OUTSIDE RECORDS SUMMARY | 2025-09-29 10:45 | XMS_ITS | Encounter Summary ---
Author Organization Healthcare Address [address] [place] [address] Care Team Providers Care Arch Cushion Skiving Machine Operator Name Role Phone Rodolfo Rhoades MD Primary Care Provider [phone] Encounter Details Date Type Department Care Team [...] in the past 12 m [facility], were you homeless or living in a retirement (including now)? No 08/09/2025 [facility] Utilities [...] Description 10/12/2025 11:20 AM EST Office Visit [facility] [address] [place] [address] Rodolfo Rhoades MD [address] [place] [address] documented as of this encounter [...] documented as of this encounter Care Teams Arch Cushion Skiving Machine Operator Relationship Specialty Start Date End Date Rodolfo Rhoades MD [address] [place] [address] PCP - General Family Medicine 02/02/25 documented as of this encounter
--- OUTSIDE RECORDS SUMMARY | 2025-09-29 10:45 | XMS_ITS | Encounter Summary ---
Author Organization [facility] Address [address] [id number] Care Team Providers Care Customer Solutions Architect Name Role Phone Georgette Moore APRN Primary Care Provider [phone] Veronica Goodwin LPN Unavailable Unavailable Margaret Ro Unavailable Unavailable Rodolfo Rhoades MD Primary Care Provider [phone] Marianne Bolaños Unavailable Unavailable Ariana Bagley Unavailable Unavailable So Caicedo APPLICATION PACKAGING SPECIALIST Unavailable Unavailable Encounter Details Date Type Department Care Team (Late st Contact Info) Description 02/06/2022 Outside Procedure External Location [address] [place] [phone] Provider, Swapnil [place] Social History Tobacco Use Types Packs/Day Years [...] Description 10/12/2025 11:20 AM EST [facility] [address] [place] [address] Rodolfo Rhoades MD [address] [place] [address] documented as of this encounter Procedures Procedure Name Priority Date/Time Associated Diagnosis Comments XR CERVICAL SPINE 2 OR 3 VIEWS 02/06/2022 2:09 PM EST documented in this encounter Results * XR Cervical Spine 2 or 3 Views (02/06/2022 2:09 PM EST) Anatomical Region Laterality Modality Spine, C-spine Radiographic Tierra ging 02/06/2022 2:09 PM EST Narrative 02/06/2022 3:21 [place] [address] Name: VERONICA ALVAREZ Exam Date: 02/06/2022 : 1975 Age 46 Gender: F Physician: HORACE RYAN Facility: [facility] Facility HSV: Outpatient Exam: CERVICAL SPINE [...] Thank you for referring VERONICA ALVAREZ to [facility]. Legally authenticated by GADIEL DELEON 2022-02-06 15:08:51 Procedure Note Provider, Generic [place] - 02/06/2022 [place] [address] Name: VERONICA ALVAREZ Exam Date: 02/06/2022 : 1975 Age 46 Gender: F Physician: HORACE RYAN Facility: [facility] Facility HSV: Outpatient Exam: CERVICAL SPINE [...] Thank you for referring VERONICA ALVAREZ to [facility]. Legally authenticated by GADIEL DELEON 2022-02-06 15:08:51 Generic [place] Provider IMG XR PROCEDURES Fi nal Result [...] as of this encounter Care Teams Customer Solutions Architect Relationship Specialty Start Date End Date Georgette Moore APRN [address] [place] [address] PCP - General 04/12/21 02/01/25 Rodolfo Rhoades MD [address] [place] [address] PCP - General Family Medicine 02/02/25 Veronica Goodwin LPN VALUE-BASED [place] [address] TCM Nurse 07/25/24 08/25/24 Margaret Ro Community Health Worker 07/27/24 4 WaMarianne glez Clinical Musical Instrument Maker Or Repairer 07/14/25 07/28/25 Ariana Bagley Community Health Worker 07/14/25 07/14/25 So Caicedo LPN VALUE-BASED [place] [address] TCM Nurse 09/07/25 documented as of this encounter
--- OUTSIDE RECORDS SUMMARY | 2025-09-29 10:45 | XMS_ITS | Encounter Summary ---
Author Organization Healthcare Address [address] [place] [address] Care Team Providers Care Telephone Repairer Name Role Phone Rodolfo Rhoades MD Primary Care Provider [phone] Encounter Details Date Type Department Care Team (Late st Contact Info) Description 08/07/2025 Orders Only External Location [address] [place] [address] Provider, Swapnil [place] Social History Tobacco Use [...] any time in the past 12 m [facility], were you homeless or [...] EST Office Visit [facility] [address] [place] [address] Rodolfo Rhoades MD [address] [place] [address] documented as of this encounter Procedures Procedure Name Priority Date/Time Associated Diagnosis Comments TROPONIN ([facility]) Routine 08/07/2025 5:05 AM EDT PROTHROMBIN [...] External Troponin 294(HH) 0 - 51 ng/L [facility] Comment: PATIENT SAMPLES MAY CONTAIN [...] 5:05 AM EDT 08/07/2025 8:29 AM EDT [facility] [place] Provider LAB BLOOD ORDERABLES Final Result Performing Organization Address [facility] Phone Number [facility] * (ABNORMAL) CK (08/07/2025 5:05 AM EDT) External Creatine Kinase 00556(H) 35 - 232 IU/l [facility] Comment:SPECIMEN HAD TO BE D ILUTED FARTHER. SG 08/07/2025 5:05 AM EDT 08/07/2025 5:38 AM EDT [facility] Provider LAB BLOOD ORDERABLES Edited Result - Final Performing Organization Address [facility] Number [facility] * Hemoglobin A1c (08/07/2025 5:05 AM EDT) External Hemoglobin A1c 5.5 3.8 - 5.6 % [facility] Comment: GLYCOSYLATED HEMOGLOBIN (A1C) EXPECTED RANGES: <6.5 NON-DIABETIC 6.5-7.5 EXCELLENT 7.5-8.5 GOOD >8.5 POOR 08/07/2025 5:05 AM EDT 08/07/2025 5:38 AM EDT [facility] [place] Provider LAB BLOOD ORDERABLES Final Result Performing Organization Address [facility] Phone Number [facility] * (ABNORMAL) Lipid Profile, Plasma (08/07/2025 5:05 AM EDT) External Triglyceride 98 30 - 200 mg/dl [facility] External Cholesterol 113 0 - 200 mg/dl [facility] External HDL Cholesterol 28(L) 40 - 104 mg/dL [facility] External LDL Cholesterol-Calcu lated 65 0 - 130 mg/dL [facility] 08/07/2025 5:05 AM EDT 08/07/2025 5:38 AM EDT Generic [place] Provider LAB BLOOD ORDERABLES Final Result Performing Organization Address [facility] Co de Phone Number [facility] * Magnesium, Plasma (08/07/2025 5:05 AM EDT) External Magnesium 2.1 1.8 - 2.4 MG/DL [facility] 08/07/2025 5:05 AM EDT 08/07/2025 5:38 AM EDT [facility] [place] Provider LAB BLOOD ORDERABLES Final Result Performing Organization Address City/[facility]/ZIP Co de Phone Number [facility] * (ABNORMAL) Basic Metabolic Panel, Plasma (08/07/2025 5:05 AM EDT) External Sodium 134(L) 136 - 145 mmol/L [facility] External Potassium 4.0 3.6 - 5.0 mmol/L [facility] External Chloride 104 98 - 107 mmol/L [facility] External Carbon Dioxide 24.1 21.0 - 32.0 mmol/L [facility] External Anion Gap (AG) 9.9 [facility] External Glucose 84 70 - 120 mg/dl [facility] External BUN 6(L) 7 - 18 mg/dL [facility] External Creatinine Blood 0.5(L) 0.6 - 1.3 mg/dL [facility] External Estimated GFR 116 60- mlpermin [facility] Comment: GFR LIMITATION: The eGFR equation CKD-EPI 2020 is not applicable for pediatric patients or greater than 90 years of age. The following conditions may alter the GFR result: extremes in body size, malnutrition or obesity, skeletal muscle disease, paraplegia or quadriplegia, vegetarian diet or rapidly changing kiney function. External Osmolality (Calculated) 276 275 - 301 mosm/kg [facility] Comment: OSMOLALITY IS A CALCULATION UTILIZING THE SERUM/PLASMA SODIUM, GLUCOSE AND UREA NITROGEN (BUN) LEVELS. FOR THE MOST ACCURATE RESULT A MEASURED SERUM OSMOLALITY IS SUGGESTED. External Calcium 7.8(L) 8.5 - 10.5 mg/dl [facility] 08/07/2025 5:05 AM EDT 08/07/2025 5:38 AM EDT Generic [place] Provider LAB BLOOD ORDERABLES Final Result Performing Organization Address [facility] Co de Phone Number [facility] * (ABNORMAL) Prothrombin Time/INR (08/07/2025 5:05 AM EDT) External Prothrombin Time (PT) 17.3(H) 9.3 - 11.4 SECONDS [facility] External INR - Internormal Ratio 1.7(H) 0.97 - 1.05 Ratio [facility] Comment: INR is intended to be used ONLY for patients on stable oral anticoagulant therapy. Therapeutic Ranges: 2.0-3.0 Usual Therapeutic Range 2.5-3.5 For patients with history of Multiple Deep Vein Thrombus or Mechanical Heart Valves 08/07/2025 5:05 AM EDT 08/07/2025 5:38 AM EDT [facility] [place] Provider LAB BLOOD ORDERABLES Final Result Performing Organization Address [facility] Co de Phone Number [facility] * (ABNORMAL) CBC W/O Differential (08/07/2025 5:05 AM EDT) External WBC 11.7(H) 4.0 - 10.5 K/ul [facility] External Red Blood Cell (RBC) 3.4(L) 4.2 - 6.4 M/mm3 [facility] External Hemoglobin 10.3(L) 12.5 - 16.0 gm/dl [facility] External Hematocrit 30.8(L) 37.0 - 47.0 % [facility] External MCV 89.5 78 - 100 fl [facility] External MCH 29.9 27 - 31 pg [facility] External MCHC 33.4 32 - 36 g/dl [facility] External RDW 12.7 11.5 - 14.0 % [facility] External Platelets 306 150 - 450 K/ul [facility] External MPV 10.0(H) 6 - 9.5 fl [facility] External Manual Differential NO [facility] 08/07/2025 5:05 AM EDT 08/07/2025 5:38 AM EDT us Generic [place] Provider LAB BLOOD ORDERABLES Final Result [facility] documented in this encounter Visit [...] documented as of this encounter Care Teams Telephone Repairer Relationship Specialty Start Date End Date Rodolfo Rhoades MD [address] [place] [address] PCP - General Family Medicine 02/02/25 documented as of this encounter
--- OUTSIDE RECORDS SUMMARY | 2025-09-29 10:45 | XMS_ITS | Encounter Summary ---
Author Organization Healthcare Address [address] [id number] Care Team Providers Care Steam Table Associate Name Role Phone Rodolfo Rhoades MD Primary Care Provider [phone] So Caicedo LPN Unavailable Unavailable Encounter Details Date Type Department Care Team (Late st Contact Info) Description 09/07/2025 Results Follow-Up [facility] Inpatient Pharmacy [address] [place] [phone] Annemarie Grover, [place] [address] Social History Tobacco Use Types Packs/Day Years [...] any time in the past 12 m [facility], were you homeless or living in a intermediate (including now)? No 08/09/2025 [facility] Utilities Answer Date Recorded In the past 12 months has e [employer], gas, oil, or water company threatened to [...] Description 10/12/2025 11:20 AM EST Office Visit [facility] [address] [place] [address] Rodolfo Rhoades MD [address] [place] [address] documented as of this encounter [...] documented as of this encounter Care Teams Steam Table Associate Relationship Specialty Start Date End Date Rodolfo Rhoades MD [address] [place] [address] PCP - General Family Medicine 02/02/25 So Caicedo LPN VAL[employer] [place] [address] TCM Nurse 09/07/25 documented as of this encounter
--- OUTSIDE RECORDS SUMMARY | 2025-09-29 10:45 | XMS_ITS | Encounter Summary ---
Author Organization Healthcare Address [address] [place] [address] Care Team Providers Care Supervisor Grove Name Role Phone Rodolfo Rhoades MD Primary Care Provider [phone] Encounter Details Date Type Department Care Team (Late st Contact Info) Description 08/08/2025 Orders Only External Location [address] [place] [address] Provider, Sw[place] Social History Tobacco Use [...] in a fpc (including now)? No 08/09/[address] [facility] Utilities Answer Date Recorded In the [...] Description 10/12/2025 11:20 AM EST Office Visit [facility] [address] [place] [address] Rodolfo Rhoades MD [address] [place] [address] documented as of this encounter Procedures [...] Erythrocyte Sedimentation Rate 67(H) 0 - 20 [facility] 08/08/2025 3:55 AM EDT 08/08/2025 2:26 PM EDT us Generic [place] Provider LAB BLOOD ORDERABLES Final Result Performing Organization Address [facility] Co de Phone Number [facility] * (ABNORMAL) C-Reactive Protein, Plasma (08/08/2025 3:55 AM EDT) External C-Reactive Protein 16.7(H) 0.05 - 0.300 mg/dL [facility] 08/08/2025 3:55 AM EDT 08/08/2025 2:[address] [facility] Provider LAB BLOOD ORDERABLES Final Result Performing Organization Address [facility] Phone Number [facility] * (ABNORMAL) CK (08/08/2025 3:55 AM EDT) Pathologist [facility] External Creatine Kinase 12139(H) 35 - 232 IU/l [facility] 08/08/2025 3:55 AM EDT 08/08/2025 4:[address] [facility] Provider LAB BLOOD ORDERABLES Final Result Performing Organization Address [facility] Phone Number [facility] * Magnesium, Plasma (08/08/2025 3:55 AM EDT) Pathologist [facility] External Magnesium 2.1 1.8 - 2.4 MG/DL [facility] 08/08/2025 3:55 AM EDT 08/08/2025 4:[address] [facility] Provider LAB BLOOD ORDERABLES Final Result Performing Organization Address [facility] Co [place] Phone Number [facility] * (ABNORMAL) Basic Metabolic Panel, Plasma (08/08/2025 3:55 AM EDT) External Sodium 131(L) 136 - 145 mmol/L [facility] External Potassium 4.5 3.6 - 5.0 mmol/L [facility] External Chloride 100 98 - 107 mmol/L [facility] External Carbon Dioxide 22.4 21.0 - 32.0 mmol/L [facility] External Anion Gap (AG) 13.1 [facility] External Glucose 134(H) 70 - 120 mg/dl [facility] External BUN 8 7 - 18 mg/dL [facility] External Creatinine Blood 0.5(L) 0.6 - 1.3 mg/dL [facility] External Estimated GFR 116 60- mlpermin [facility] Comment: GFR LIMITATION: The eGFR equation CKD-EPI 2020 is not applicable for pediatric patients or greater than 90 years of age. The following conditions may alter the GFR result: extremes in body size, malnutrition or obesity, skeletal muscle disease, paraplegia or quadriplegia, vegetarian diet or rapidly changing kiney function. External Osmolality (Calculated) 273(L) 275 - 301 mosm/kg [facility] Comment: OSMOLALITY IS A CALCULATION UTILIZING THE SERUM/PLASMA SODIUM, GLUCOSE AND UREA NITROGEN (BUN) LEVELS. FOR THE MOST ACCURATE RESULT A MEASURED SERUM OSMOLALITY IS SUGGESTED. External Calcium 8.1(L) 8.5 - 10.5 mg/dl [facility] 08/08/2025 3:55 AM EDT 08/08/2025 4:30 AM EDT us Generic [place] Provider LAB BLOOD ORDERABLES Final Result [facility] * (ABNORMAL) Prothrombin Time/INR (08/08/2025 3:55 AM EDT) External Prothrombin Time (PT) 11.3 9.3 - 11.4 SECONDS [facility] External INR - Internormal Ratio 1.1(H) 0.97 - 1.05 Ratio [facility] Comment: INR is intended to be used ONLY for patients on stable oral anticoagulant therapy. Therapeutic Ranges: 2.0-3.0 Usual Therapeutic Range 2.5-3.5 For patients with history of Multiple Deep Vein Thrombus or Mechanical Heart Valves 08/08/2025 3:55 AM EDT 08/08/2025 4:29 AM EDT Generic [place] Provider LAB BLOOD ORDERABLES Final Result [facility] * (ABNORMAL) CBC W/O Differential (08/08/2025 3:55 AM EDT) External WBC 9.8 4.0 - 10.5 K/ul [facility] External Red Blood Cell (RBC) 3.7(L) 4.2 - 6.4 M/mm3 [facility] External Hemoglobin 11.0(L) 12.5 - 16.0 gm/dl [facility] External Hematocrit 33.3(L) 37.0 - 47.0 % [facility] External MCV 89.5 78 - 100 fl [facility] External MCH 29.6 27 - 31 pg [facility] External MCHC 33.0 32 - 36 g/dl [facility] External RDW 12.5 11.5 - 14.0 % [facility] External Platelets 368 150 - 450 K/ul [facility] External MPV 10.5(H) 6 - 9.5 fl [facility] External Manual Differential NO [facility] 08/08/2025 3:55 AM EDT 08/08/2025 4:30 AM EDT Generic [place] Provider LAB BLOOD ORDERABLES Final Result [facility] * Phosphorus, Plasma (08/08/2025 3:44 AM EDT) External Phosphorus 3.1 2.5 - 4.9 mg/dl [facility] 08/08/2025 3:44 AM EDT 08/08/2025 1:28 PM EDT us Generic [place] Provider LAB BLOOD ORDERABLES Final Result [facility] documented in this encounter Visit Diagnoses [...] documented as of this encounter Care Teams Supervisor Grove Relationship Specialty Start Date End Date Rodolfo Rhoades MD [address] [place] [address] PCP - General Family Medicine 02/02/25 documented as of this encounter
--- OUTSIDE RECORDS SUMMARY | 2025-09-29 10:45 | XMS_ITS | Encounter Summary ---
Author Organization Healthcare Address [address] [place] [address] Care Team Providers Care Cool Roofing Installer Name Role Phone Rodolfo Rhoades MD Primary Care Provider [phone] Encounter Details Date Type Department Care Team [...] in a correction (including now)? No 08/09/2025 [facility] Utilities Answer Date Recorded In the [...] Description 10/12/2025 11:20 AM EST Office Visit [facility] [address] [place] [address] Rodolfo Rhoades MD [place] [address] documented as of this encounter Visit [...] documented as of this encounter Care Teams Cool Roofing Installer Relationship Specialty Start Date End Date Rodolfo Rhoades MD [address] [place] [address] PCP - General Family Medicine 02/02/25 documented as of this encounter
--- OUTSIDE RECORDS SUMMARY | 2025-09-29 10:45 | XMS_ITS | Encounter Summary ---
Author Organization Healthcare Address [address] [place] [address] Care Team Providers Care Inspector Scales Name Role Phone Rodolfo Rhoades MD Primary Care Provider [phone] Encounter Details Date Type Department Care Team [...] living in a half-way (including now)? No 08/09/2025 [facility] [...] Description 10/12/2025 11:20 AM EST Office Visit [facility] [address] [place] [address] Rodolfo [place] [address] documented as of this encounter Visit [...] documented as of this encounter Care Teams Inspector Scales Relationship Specialty Start Date End Date Rodolfo Rhoades MD [address] [place] [address] PCP - General Family Medicine 02/02/25 documented as of this encounter
--- OUTSIDE RECORDS SUMMARY | 2025-09-29 10:45 | XMS_ITS | Encounter Summary ---
Author Organization Healthcare Address [address] [place] [address] Care Team Providers Care Brand Communications Manager Name Role Phone Rodolfo Rhoades MD Primary Care Provider [phone] Encounter Details Date Type Department Care Team [...] in a snf (including now)? No 08/09/2025 [facility] [...] Description 10/12/2025 11:20 AM EST Office Visit [facility] [address] [place] [address] Rodolfo Rhoades MD [address] [place] [address] documented as of this encounter [...] documented as of this encounter Care Teams Brand Communications Manager Relationship Specialty Start Date End Date Rodolfo Rhoades MD [address] [place] [address] PCP - General Family Medicine 02/02/25 documented as of this encounter
--- OUTSIDE RECORDS SUMMARY | 2025-09-29 10:45 | XMS_ITS | Encounter Summary ---
Author Organization Healthcare Address [address] [place] [address] Care Team Providers Care Service Dog Trainer Name Role Phone Rodolfo Rhoades MD Primary Care Provider [phone] Encounter Details Date Type Department Care Team [...] any time in the past 12 m [facility], were you homeless or living in a detention (including now)? No 08/09/2025 [facility] Utilities Answer Date Recorded In the [...] Visit [facility] [address] [place] [address] Rodolfo Rhoades MD [address] [place] [address] documented as of this encounter [...] documented as of this encounter Care Teams Service Dog Trainer Relationship Specialty Start Date End Date Rodolfo Rhoades MD [address] [place] [address] PCP - General Family Medicine 02/02/25 documented as of this encounter
--- OUTSIDE RECORDS SUMMARY | 2025-09-29 10:45 | XMS_ITS | Encounter Summary ---
Author Organization Healthcare Address [address] [place] [address] Care Team Providers Care Manager English Name Role Phone Rodolfo Rhoades MD Primary Care Provider [phone] Encounter Details Date Type Department Care Team (Late st Contact Info) Description 08/06/2025 Orders Only External Location [address] [place] [address] Provider, External Social History Tobacco Use Types [...] in a retirement (including now)? No 08/09/2025 [facility] Utilities Answer Date Recorded In the [...] Office Visit [facility] [address] [place] [address] Rodolfo Rhoades MD [address] [place] [address] documented as of this encounter [...] documented as of this encounter Care Teams Manager English Relationship Specialty Start Date End Date Rodolfo Rhoades MD [address] [place] [address] PCP - General Family Medicine 02/02/25 documented as of this encounter
--- OUTSIDE RECORDS SUMMARY | 2025-09-29 10:45 | XMS_ITS | Encounter Summary ---
Author Organization Healthcare Address [facility]note 2] [place] [address] Care Team Providers Care Business Law Professor Name Role Phone Rodolfo Rhoades MD Primary Care Provider [phone] So Caicedo LPN Unavailable Unavailable Encounter Details Date Type Department Care Team (Late st Contact Info) Description 09/20/2025 Results Follow-Up [facility] [address] [place] [address] Rodolfo Rhoades MD [address] [place] [address] Social History Tobacco Use Types [...] in a longterm (including now)? No 08/09/2025 [facility] Utilities Answer Date Recorded In the past 12 months has e [employer], gas, oil, or water Shareholder [employer] threatened to shut off services in your [...] Description 10/12/2025 11:20 AM EST Office Visit [facility] [address] [place] [address] Rodolfo Rhoades MD [address] [facility] [place] [address] documented as of this [...] documented as of this encounter Care Teams Business Law Professor Relationship Specialty Start Date End Date Rodolfo Rhoades MD [address] [place] [address] PCP - General Family Medicine 02/02/25 So Caicedo LPN VALUE-BASED [place] [address] TCM Nurse 09/07/25 documented as of this encounter
--- OUTSIDE RECORDS SUMMARY | 2025-09-29 10:45 | XMS_ITS | Encounter Summary ---
Author Organization Healthcare Address [address] [place] [address] Care Team Providers Care Infantry Operations Specialist Name Role Phone Rodolfo Rhoades MD Primary Care Provider [phone] So Caicedo LPN Unavailable Unavailable Reason for Visit * Reason Comments TCM Encounter Details Date Type Department Care Team (Late st Contact Info) Description 09/07/2025 Patient Outreach [facility] [address] [facility], [address] [place] [address] So Caicedo LPN VALUE[employer] [address] TCM Social History Tobacco Use Types Packs/Day [...] any time in the past 12 m [facility], were you homeless or living in a usp (including now)? No 08/09/2025 [facility] Utilities Answer Date Recorded In the past 12 months has th e [employer], gas, oil, or water [employer] threatened to shut off services in [...] Date: 08/08/2025 Discharge Date: 09/06/2025 Hospital Service: [facility] Discharge Diagnosis: Rhabdomyolysis 09/07/2025 TCM [...] Description 10/12/2025 11:20 AM EST Office Visit [address] [address] Rodolfo Rhoades MD [address] [place] [address] documented as of this encounter [...] documented as of this encounter Care Teams Infantry Operations Specialist Relationship Specialty Start Date End Date Rodolfo Rhoades MD [address] [place] [address] PCP - General Family Medicine 02/02/25 So Caicedo, ANTOINE VALUE-[place] [address] TCM Nurse 09/07/25 documented as of this encounter
--- OUTSIDE RECORDS SUMMARY | 2025-09-29 10:46 | XMS_ITS | Encounter Summary ---
Author Organization Healthcare Address [address] [id number] Care Team Providers Care Latin Dancer Name Role Phone Rodolfo Rhoades MD Primary Care Provider [phone] Encounter Details Date Type Department Care Team (Late st Contact Info) Description 08/08/2025 Orders Only External Location [address] [place] [address] [place] [address] [place] [address] Social History Tobacco Use Types Packs/Day Years [...] in a fpc (including now)? No 08/09/2025 [place] Utilities Answer Date Recorded In the past 12 months has e [employer], gas, oil, or water [employer] threatened to shut off services in your [...] EST Office Visit [facility] [address] [place] [address] Rodolfo Rhoades MD [address] [place] [address] documented as of this encounter Procedures Procedure Name Priority Date/Time Associated Diagnosis Comments CBC W/O DIFFERENTIAL Routine 08/08/2025 9:[address] OUTSIDE IMAGES 08/08/2025 1:2 8 PM EDT documented in this encounter Results * (ABNORMAL) CBC W/O Differential (08/08/2025 9:00 PM EDT) External WBC 9.6 4.0 - 10.5 K/ul [facility] External Red Blood Cell (RBC) 3.9(L) 4.2 - 6.4 M/mm3 [facility] External Hemoglobin 11.6(L) 12.5 - 16.0 gm/dl [facility] External Hematocrit 34.1(L) 37.0 - 47.0 % [facility] External MCV 87.9 78 - 100 fl [facility] External MCH 29.9 27 - 31 pg [facility] External MCHC 34.0 32 - 36 g/dl [facility] External RDW 12.5 11.5 - 14.0 % [facility] External Platelets 423 150 - 450 K/ul [facility] External MPV 9.9(H) 6 - 9.5 [facility] External Manual Differential NO [facility] 08/08/2025 9:00 PM EDT 08/08/2025 9:05 PM EDT us Generic [place] Provider LAB BLOOD ORDERABLES Final Result [facility] * CT OUTSIDE IMAGES (08/08/2025 1:28 PM [...] documented as of this encounter Care Teams Latin Dancer Relationship Specialty Start Date End Date Rodolfo Rhoades MD [address] [place], [place] [address], [place] [address] PCP - General Family Medicine 02/02/25 documented as of this encounter
--- OUTSIDE RECORDS SUMMARY | 2025-09-29 10:46 | XMS_ITS | Encounter Summary ---
Author Organization Healthcare Address [address] [place] [address] Care Team Providers Care Accounting Specialist Name Role Phone Rodolfo Rhoades MD Primary Care Provider [phone] Marianne Bolaños Unavailable Unavailable Ariana Bagley Unavailable Unavailable So Caicedo LPN Unavailable Unavailable Reason for Visit * Reason Comments Med Refill Encounter Details Date Type Department Care Team (Late st Contact Info) Description 07/07/2025 Refill [facility] [address] [place] [address] Rodolfo Rhoades MD [address] [place] [address] Social History Tobacco Use Types [...] Description 10/12/2025 11:20 AM EST Office Visit [facility] [address] [place] [address] Rodolfo Rhoades MD [address] [place] [address] documented as of this encounter Visit Diagnoses [...] documented as of this encounter Care Teams Accounting Specialist Relationship Specialty Start Date End Date Rodolfo Rhoades MD [address] [place] [address] PCP - General Family Medicine 02/02/25 [facility] B[facility] 07/14/25 07/28/25 Ariana Bagley Community Health Worker 07/14/25 07/14/25 So Caicedo, ANTOINE VALUE-[place] [address] TCM Nurse 09/07/25 documented as of this encounter
--- OUTSIDE RECORDS SUMMARY | 2025-09-29 10:46 | XMS_ITS | Encounter Summary ---
Author Organization [facility] Address [facility] [place] [address] Care Team Providers Care Environmental Sampling Technician Name Role Phone Rodolfo Rhoades MD Primary Care Provider [phone] Marianne Bolaños Unavailable Unavailable Ariana Bagley Unavailable Unavailable Reason for Visit * Reason Onset Date Comments [facility] Clinical Concern/Question 07/06/2025 Encounter Details Date Type Department Care Team (Late st Contact Info) Description 07/05/2025 Telephone [facility] & [address] [address] Rodolfo Rhoades MD [address] [place] [address] [facility] Clinical Concern/Question Social History Tobacco [...] th e electric, gas, oil, or water [employer] threatened to shut off services in your [...] clinic, returning Mindy's call. Best contact number: [phone] (home) Optimal time of day to reach [...] will receive notification of the communication/outcome via [employer]. * Telephone Encounter - Mindy Gudino - [...] transportation. Pls advise. Thanks. Best contact number: [phone] (home) Optimal time of day to reach caller: ANYTIME Additional comments/information from caller: None Note: Please do not reply to this message. Follow-up communication and further actions as a result of this message need to be communicated with the patient directly, if the patient is not active onMyChart. If the patient is active on MyChart, they will receive notification of the communication/outcome via [place] [employer]. documented in this encounter Plan of Treatment Upcoming Encounters Date Type Department Care Team (Late st Contact Info) Description 10/12/2025 11:20 AM EST Office Visit [facility] [address] [place] [address] Rodolfo Rhoades MD [address] [place] [address] documented as of this encounter [...] documented as of this encounter Care Teams Environmental Sampling Technician Relationship Specialty Start Date End Date Rodolfo Rhoades MD [address] [place] [address] PCP - General Family Medicine 02/02/25 Marianne Bolaños Clinical Data Conversion Analyst 07/14/2507/28 Ariana Bagley Community Health Worker 07/14/25 07/14/25 documented as of this encounter
--- OUTSIDE RECORDS SUMMARY | 2025-09-29 10:46 | XMS_ITS | Encounter Summary ---
Author Organization Healthcare Address [address] [id number] Care Team Providers Care Child & Adolescent Psychiatrist Name Role Phone Rodolfo Rhoades MD Primary Care Provider [phone] So Caicedo LPN Unavailable Unavailable Encounter Details Date Type Department Care Team (Late st Contact Info) Description 08/08/2025 Outside Procedure External Location [address] [place] [phone] Provider, Swapnil Newberg Social History Tobacco Use Types Packs/Day Years [...] in a senior care (including now)? No 08/09/2025 [facility] Utilities Answer Date Recorded In the past [...] Description 10/12/2025 11:20 AM EST Office Visit [facility] [address] [place] [address] Rodolfo Rhoades MD [address] [place] [address] documented as of this encounter Procedures Procedure Name Priority Date/Time Associated Diagnosis Comments CT ABDOMEN PELVIS W IV CONTRAST 08/08/2025 10:24 AM EDT documented in this encounter Results * CT Abdomen Pelvis w IV Contrast (08/08/2025 10:24 AM EDT) Anatomical Region Laterality Modality Abdomen, Pelvis Computed Tomogra phy 08/08/2025 10:2 4 AM EDT Narrative 08/08/2025 2:59 PM EDT [address] [address] Name: HAILEY ALVAREZ Exam Date: 08/08/2025 : 1975 Age 49 years Gender: F Physician: LOBO LOWERY Facility: [facility] Facility HSV: Inpatient Exam: CT ABD [...] Thank you for referring HAILEY ALVAREZ to [facility]. Legally authenticated by AVI Colin 2025-08-08 14:56:42 Procedure Note Provider, Generic Newberg - 08/08/20[address] [id number] Name: HAILEY ALVAREZ Exam Date: 08/08/2025 : 1975 Age 49 years Gender: F Physician: LOBO LOWERY Facility: [facility] Facility HSV: Inpatient Exam: CT ABD PEL W EXAMINATION: CT ABDOMEN PELVIS WITH IV CONTRAST HISTORY: fall, inability to move left leg, severe rhabdomyolysis, r/ofx. COMPARISON: None. TECHNIQUE: Contiguous axial images through the abdomen and pelvis were acquired following the administration of intravenous contrast.Reconstructed images in the coronal and sagittal planes were reviewed. CT [facility] use dose modulation, iterative reconstruction [...] Thank you for referring HAILEY ALVAREZ to [facility]. Legally authenticated by AVI Colin 2025-08-08 14:56:42 Generic Newberg Provider IMG CT PROCEDURES Fi nal Result [...] documented as of this encounter Care Teams Child & Adolescent Psychiatrist Relationship Specialty Start Date End Date Rodolfo Rhoades MD [address] [place] [phone] PCP - General Family Medicine 02/02/25 So Caicedo LPN [employer] [place] [address] TCM Nurse 09/07/25 documented as of this encounter
--- OUTSIDE RECORDS SUMMARY | 2025-09-29 10:46 | XMS_ITS | Encounter Summary ---
Author Organization Healthcare Address [facility] [place] [address] Care Team Providers Care Improvement Lead Name Role Phone Rodolfo Rhoades MD Primary Care Provider [phone] So Caicedo LPN Unavailable Unavailable Encounter Details Date Type Department Care Team (Late st Contact Info) Description 09/08/2025 Telephone [facility] [address] [place] [address] Rodolfo Rhoades MD [address] [place] [address] Social History Tobacco Use Types [...] in a mcc (including now)? No 08/09/2025 [facility] Utilities Answer Date Recorded In the [...] beoverbooked with him instead. Best contact number: [phone] (mobile) Optimal time of day to reach [...] Description 10/12/2025 11:20 AM EST Office Visit [facility] [address] [place] [address] Rodolfo Rhoades MD [address] [place] [address] documented as of this encounter [...] documented as of this encounter Care Teams Improvement Lead Relationship Specialty Start Date End Date Rodolfo Rhoades MD [address] [place] [address] PCP - General Family Medicine 02/02/25 So Caicedo LPN [employer] [place] [address] TCM Nurse 09/07/25 documented as of this encounter
--- OUTSIDE RECORDS SUMMARY | 2025-09-29 10:46 | XMS_ITS | Encounter Summary ---
Author Organization Healthcare Address [address] [place] [address] Care Team Providers Care Board Mixer Tender Name Role Phone Rodolfo Rhoaeds MD Primary Care Provider [phone] So Caicedo LPN Unavailable Unavailable Reason for Visit * Reason Comments TCM Encounter Details Date Type Department Care Team (Late st Contact Info) Description 09/08/2025 Patient Outreach [facility] [address], [address] [place] [phone] So Caicedo LPN [employer] [place] [place] [address] TCM Social History Tobacco Use Types Packs/Day [...] a care home (including now)? No 08/09/2025 [facility] Utilities Answer Date Recorded In the past 12 months has th e [facility], gas, oil, or water [employer] threatened to shut off services in your [...] Date: 08/08/2025 Discharge Date: 09/06/2025 Hospital Service: [facility] Discharge Diagnosis: Rhabdomyolysis 09/08/2025 TCM [...] 11:20 AM EST Office Visit [facility] [address] [place] [address] Rodolfo Rhoades MD [address] [place] [address] documented as of this encounter [...] documented as of this encounter Care Teams Board Mixer Tender Relationship Specialty Start Date End Date Rodolfo Rhoades MD [address] [place] [address] PCP - General Family Medicine 02/02/25 So Caicedo LPN [employer] [place] [address] TCM Nurse 09/07/25 documented as of this encounter
--- OUTSIDE RECORDS SUMMARY | 2025-09-29 10:46 | XMS_ITS | Encounter Summary ---
Author Organization Healthcare Address [address] [place] [address] Care Team Providers Care Trust Clerk Name Role Phone Rodolfo Rhoades MD Primary Care Provider [phone] Encounter Details Date Type Department Care Team [...] in a usp (including now)? No 08/09/2025 [facility] Utilities Answer Date Recorded In [...] Description 10/12/2025 11:20 AM EST Office Visit [facility] [address] [place] [address] Rodolfo Rhoades MD [address] [place] [address] documented as of this encounter [...] documented as of this encounter Care Teams Trust Clerk Relationship Specialty Start Date End Date Rodolfo Rhoades MD [address] [place] [address] PCP - General Family Medicine 02/02/25 documented as of this encounter
--- OUTSIDE RECORDS SUMMARY | 2025-09-29 10:46 | XMS_ITS | Encounter Summary ---
Author Organization Healthcare Address [address] [id number] Care Team Providers Care Stone Setter Name Role Phone Rodolfo Rhoades MD Primary Care Provider [phone] So Caicedo LPN Unavailable Unavailable Encounter Details Date Type Department Care Team (Late st Contact Info) Description 08/08/2025 Outside Procedure External Location [address] [place] [phone] Provider, Swapnil Marvin Social History Tobacco Use Types Packs/Day Years [...] in a long-term (including now)? No 08/09/2025 [facility] Utilities Answer Date Recorded In [...] 11:20 AM EST Office Visit [facility] [address] [place] [address] Rodolfo Rhoades MD [address] [place] [address] documented as of this encounter Procedures Procedure Name Priority Date/Time Associated Diagnosis Comments CT HIP LEFT W IV CONTRAST 08/08/2025 10:23 AM EDT documented in this encounter Results * CT Hip Left w IV Contrast (08/08/2025 10:23 AM EDT) Anatomical Region Laterality Modality Lower Extremities, Hip Left Computed Tomography 08/08/2025 10:2 3 AM EDT Narrative 08/08/2025 3:06 PM EDT [address] [address] Name: HAILEY ALVAREZ Exam Date: 08/08/2025 : 1975 Age 49 years Gender: F Physician: LOBO LOWERY Facility: [facility] Facility HSV: Inpatient Exam: CT LOWER [...] Thank you for referring HAILEY [facility]Z to [facility]. Legally authenticated by AVI Colin 2025-08-08 15:01:48 Procedure Note Provider, Swapnil Marvin - 08/08/2025 [place] [address] Name: HAILEY ALVAREZ Exam Date: 08/08/2025 : 1975 Age 49 years Gender: F Physician: LOBO LOWERY Facility: [facility] Facility HSV: Inpatient Exam: CT LOWER EXT WITH LT EXAM: CT LOWER EXTREMITY WITH IV CONTRAST LEFT HISTORY: fall, 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 COMPARISON: None. Procedure: Thin section axial images were obtained through the lower extremities after the administration of intravenous contrast..Reconstructed images in the sagittal and coronal planes were reviewed. CT [facility] use dose modulation, iterative reconstruction [...] Thank you for referring HAILEY [facility]AREZ to [facility]. Legally authenticated by AIV Colin 2025-08-08 15:01:48 Generic Marvin Provider IMG CT PROCEDURES Fi nal Result [...] documented as of this encounter Care Teams Stone Setter Relationship Specialty Start Date End Date Rodolfo Rhoades MD [address] [place] [address] PCP - General Family Medicine 02/02/25 So Caicedo LPN [employer] [address] TCM Nurse 09/07/25 documented as of this encounter
--- OUTSIDE RECORDS SUMMARY | 2025-09-29 10:47 | XMS_ITS | Encounter Summary ---
Author Organization Healthcare Address [address] [id number] Care Team Providers Care Manager Farm Name Role Phone Rodolfo hRoades MD Primary Care Provider [phone] So Caicedo LPN Unavailable Unavailable Encounter Details [...] time in the past [address] [facility], were you homeless or living in a alf (including now)? No 08/09/2025 [facility] [...] Description 10/12/2025 11:20 AM EST Office Visit [facility] [address] [place] [address] Rodolfo Rhoades MD [address] [place] [address] documented as of this encounter [...] as of this encounter Care Teams Manager Farm Relationship Specialty Start Date End Date Rodolfo Rhoades MD [address] [place] [address] PCP - General Family Medicine 02/02/25 So Caicedo LPN [employer] [place] [address] TCM Nurse 09/07/25 documented as of this encounter
--- OUTSIDE RECORDS SUMMARY | 2025-09-29 10:47 | XMS_ITS | Encounter Summary ---
Author Organization [facility] Address [address] [place] [address] Care Team Providers Care College Dean Name Role Phone Georgette Moore APRN Primary Care Provider [phone] Veronica Goodwin LPN Unavailable Unavailable Margaret Ro Unavailable Unavailable Rodolfo Rhoades MD Primary Care Provider [phone] Marianne Bolaños Unavailable Unavailable Ariana Bagley Unavailable Unavailable So Caicedo LPN Unavailable Unavailable Encounter Details Date Type Department Care Team (Late st Contact Info) Description 07/21/2024 Outside Procedure External Location [address] [place] [phone] Provider, Swapnil Monique Social History Tobacco Use [...] In the past 12 months has e [email or web address], gas, oil, or water [employer] threatened to shut off services in your [...] AM EST Office Visit [facility] [address] [place] [address] Rodolfo Rhoades MD [address] [place] [address] documented as of this encounter Procedures Procedure Name Priority Date/Time Associated Diagnosis Comments XR CHEST 1 VIEW 07/21/2024 4:03 PM EDT documented in this encounter Results * XR Chest 1 View (07/21/2024 4:03 PM EDT) Anatomical Region Laterality Modality Chest Digital Radiogra phy 07/21/2024 4:03 PM EDT Narrative 07/21/2024 4:31 PM EDT [address] [address] Name: VERONICA ALVAREZ Exam Date: 07/21/2024 : 1975 Age 48 years Gender: F Physician: PAOLA PIZARRO Facility: [facility] Facility HSV: Outpatient Exam: CHEST [...] to [facility]. Legally authenticated by NATALIE CULVER 2024-07-21 16:12:48 Procedure Note Provider, Swapnil [place] - 07/21/2024 [place] [address] Name: VERONICA ALVAREZ Exam Date: 07/21/2024 : 1975 Age 48 years Gender: F Physician: PAOLA PIZARRO Facility: [facility] Facility HSV: Outpatient Exam: CHEST [...] to [facility]. Legally authenticated by NATALIE CULVER 2024-07-21 16:12:48 Generic [place] Provider IMG XR PROCEDURES Fi nal Result [...] documented as of this encounter Care Teams College Dean Relationship Specialty Start Date End Date Georgette Moore APRN [address] [place] [phone] PCP - General 04/12/21 02/01/25 Rodolfo Rhoades MD [address] [place] [address] PCP - General Family Medicine 02/02/25 Veronica Goodwin LPN [employer] [place] [address] TCM Nurse 07/25/24 08/25/24 Margaret Ro Community Health Worker 07/27/24 4 Wages, Marianne Delgado Clinical Propellant Charge Loader 07/14/25 07/28/25 Ariana Bagley Community Health Worker 07/14/25 07/14/25 So Caicedo LPN [employer] [place] [address] TCM Nurse 09/07/25 documented as of this encounter
--- OUTSIDE RECORDS SUMMARY | 2025-09-29 10:47 | XMS_ITS | Encounter Summary ---
Author Organization Healthcare Address [address] [phone] Care Team Providers Care Needle Punch Machine Operator Name Role Phone Rodolfo Rhoades MD Primary Care Provider [phone] So Caicedo LPN Unavailable Unavailable Encounter Details Date Type Department Care Team (Late st Contact Info) Description 08/06/2025 Outside Procedure External Location [address] [place] [phone] Provider, Swapnil [place] Social History Tobacco Use Types Packs/Day Years [...] in a correction (including now)? No 08/09/2025 [facility] Utilities Answer Date Recorded In the past [...] EST [facility] [address] [place] [address] Rodolfo Rhoades MD [address] [place] [address] documented as of this encounter Procedures Procedure Name Priority Date/Time Associated Diagnosis Comments XR CHEST 1 VIEW 08/06/2025 9:18 AM EDT documented in this encounter Results * XR Chest 1 View (08/06/2025 9:18 AM EDT) Anatomical Region Laterality Modality Chest Digital Radiogra phy 08/06/2025 9:18 AM EDT Narrative 08/06/2025 10:17 AM EDT [address] [address] Name: HAILEY ALVAREZ Exam Date: 08/06/2025 : 1975 Age 49 years Gender: F Physician: ERFUGIO JACKSON Facility: [facility] Facility HSV: Outpatient Exam: CHEST PORTABLE PROCEDURE: [...] Thank you for referring HAILEY ALVAREZ to [facility]. Legally authenticated by BRITTON RIVERA 2025-08-06 10:14:11 Procedure Note Provider, [facility] - 08/06/2025 [place] [address] Name: HAILEY ALVAREZ Exam Date: 08/06/2025 : 1975 Age 49 years Gender: F Physician: REFUGIO JACKSON Facility: [facility] Facility HSV: Outpatient Exam: CHEST PORTABLE PROCEDURE: [...] Thank you for referring HAILEY ALVAREZ to [facility]. Legally authenticated by BRITTON RIVERA 2025-08-06 10:14:11 Generic [place] Provider IMG XR PROCEDURES Fi nal Result [...] documented as of this encounter Care Teams Needle Punch Machine Operator Relationship Specialty Start Date End Date Rodolfo Rhoades MD [address] [place] [address] PCP - General Family Medicine 02/02/25 So Caicedo LPN VALUE-BASED [place]FORMATION [place] [address] TCM Nurse 09/07/25 documented as of this encounter
--- OUTSIDE RECORDS SUMMARY | 2025-09-29 10:47 | XMS_ITS | Clinical Summary ---
Author Organization Healthcare Address [address] [id number] Care Team Providers Care Forest [employer] Warden Name Role Phone Rodolfo Rhoades MD Primary Care Provider [phone] So Caicedo DENTAL TECH Unavailable Unavailable Allergies Active Allergy Reactions Criticality [...] 30 patch 09/06/20 25 Active nystatin (Mycostatin) 849957 UNIT/GM powder Apply to groin twice a [...] PRN and hydroxyzine q6hr PRN. PLAN: - Fur Mixer services following - Continue home Klonopin TID PRN - Continue hydroxyzine 25 mg q6h PRN Assessment & Plan (08/28/2025 7:38 AM EDT): - Patient takes Klonopin TID PRN and hydroxyzine q6hr PRN. PLAN: - Fur Mixer services following - Continue home Klonopin TID PRN - Continue hydroxyzine 25 mg q6h PRN Assessment & Plan (08/27/2025 6:17 PM EDT): - Patient takes Klonopin TID PRN and hydroxyzine q6hr PRN. PLAN: - Fur Mixer services following - Continue home Klonopin TID PRN - Continue hydroxyzine 25 mg q6h PRN Assessment & Plan (08/26/2025 7:20 AM EDT): - Patient takes Klonopin TID for anxiety. - Patient denies consideration of cymbalta. Has previously denied discussion regarding SSRIs. PLAN - Fur Mixer services following - Continue home Klonopin TID PRN - Continue hydroxyzine 25 mg q6h PRN Assessment & Plan (08/25/2025 1:17 PM EDT): - Patient takes Klonopin TID for anxiety. - Patient denies consideration of cymbalta. Has previously denied discussion regarding SSRIs. PLAN - Fur Mixer services following - Continue home Klonopin TID PRN - Continue hydroxyzine 25 mg q6h PRN Assessment & Plan (08/24/2025 11:26 AM EDT): - Patient takes Klonopin TID for anxiety. - Patient denies consideration of cymbalta. Has previously denied discussion regarding SSRIs. - Fur Mixer services saw Ms. Weiss yesterday and she states that she was extremely thankful for their visit. PLAN - Fur Mixer services following - Continue home Klonopin TID PRN - Continue hydroxyzine 25 mg q6h PRN Assessment & Plan (08/23/2025 12:08 PM EDT): - Patient takes Klonopin TID for anxiety. - Patient denies consideration of cymbalta. She denies wanting to discuss SSRI options today. PLAN - Consulted water tanker driver services for support - Continue home Klonopin [...] Plan (08/25/2025 1:17 PM EDT): PLAN - SLITTER SCORER reevaluated today. With patient agreed to go to full diet. Patient still requires a 1:1 assist with eating due to difficulty with hand strength. Assessment & Plan (08/24/2025 11:26 AM EDT): - Dobhoff tube was removed yesterday since she has been tolerating her diet appropriately - Patient has been continuing to eat soft and bite sized diet with 1:1 assistance PLAN - SLITTER SCORER following, appreciate recommendations Assessment & Plan (08/23/2025 12:08 PM EDT): - Repeat MBS on 08/22 demonstrated intermittent penetration and aspiration of thin liquids. Ordered soft and bite sized diet on 08/22 with 1:1 feeding assistance. - Tube feeds held PM 08/01. Dobhoff tube is still in place. - Patient has been tolerating soft and bite sized diet well. PLAN - SLITTER SCORER following, appreciate recommendations - Planning to remove dobhoff tube later in the day to make sure that breakfast and lunch were tolerated well. Assessment & Plan (08/22/2025 8:39 AM EDT): - MBS on 08/15 with aspiration of thin, nectar, and honey barium consistency - Dobhoff tube in place PLAN - SLITTER SCORER following, appreciate recommendations - Continue isosource tube [...] Recommends outpatient EMG - Follow-up requested with [facility] Neurology Assessment & Plan (08/30/2025 12:05 [...] 09/20/2025 Results Follow-Up [facility] [address] [facility] [place] [address] Rodolfo Rhoades MD 09/19/2025 Telephone [facility] [address] [place] [address] Rodolfo Rhoades MD 09/15/2025 1:00 PM EDT Office Visit [facility] [address] [place] [address] Rodolfo Rhoades MD Sequela, post-stroke (Primary Dx); Non-traumatic rhabdomyolysis; Mixed hyperlipidemia; Vitamin D deficiency; Chronic atrial fibrillation (CMS/HCC); Essential hypertension; Anemia, unspecified type 09/15/2025 Travel 09/08/2025 Telephone [facility] [address] [place] [address] Rodolfo Rhoades MD 09/08/2025 Patient Outreach [facility] [address] [place] [address], [address] [place] [address] So Caicedo LPN [facility] 09/07/2025 Results Follow-Up [facility] In[facility] [address] [place] [place] [address] Annemarie Grover, PharmD 09/07/2025 Patient Outreach [facility] [address], [address] [place] [address] So Caicedo LPN TCM 08/30/2025 Travel 08/22/2025 Travel 08/21/2025 2:57 PM EDT Anesthesia Event [facility] S Operating Room [address] [place] [address] Sosa Cadet MD Cauthen, Benton R, DO 08/21/2025 Travel 08/19/2025 Travel 08/17/2025 Travel 08/15/2025 Travel 08/11/2025 Travel 08/09/2025 Travel 08/08/2025 Orders Only External Location [address] [place] [address] Lobo Lowery PA 08/08/2025 Orders Only External Location [address] [place] [address] Lobo Lowery PA 08/08/2025 Outside Procedure External Location [address] [place] [address] Provider, Generic [place] 08/08/2025 Outside Procedure External Location [address] [place] [address] Provider, Generic [place] 08/08/2025 Orders Only External Location [address] [place] [address] Provider, Generic [place] 08/07/2025 Outside Procedure External Location [address] [place] [address] Provider, Generic [place] 08/07/2025 Orders Only External Location [address] [place] [address] Provider, Generic [place] 08/06/2025 Orders Only External Location [address] [place] [address] Provider, External 08/06/2025 Orders Only External Location [address] [place] [address] Lobo Lowery PA 08/06/2025 Outside Procedure External Location [address] [place] [address] Provider, Generic [place] 08/06/2025 Outside Procedure External Location [address] [place] [address] Provider, Generic [place] 08/06/2025 Orders Only External Location [address] [place] [address] Provider, Generic [place] 07/28/2025 Patient Outreach [facility] [address] [facility], [address] [place] [address] Marianne Bolaños [facility]. (Records) 07/28/2025 Patient Outreach [facility] [address] [facility], [address] [place] [address] Marianne Bolaños [facility]. (Records) 07/14/2025 10:40 AM EDT Office Visit [facility] [address] [place] [address] Rodolfo Rhoades MD Chronic fatigue (Primary Dx); Essential hypertension; Pitting edema; Heart failure with preserved ejection fraction, unspecified HF chronicity (CMS/HCC) 07/14/2025 Results Follow-Up [facility] [address] [place] [address] Rodolfo Rhoades MD 07/14/2025 Telephone [facility] [address] [place] [address] Rodolfo Rhoades MD HCN Paperwork/Documenta tion Request 07/14/2025 Patient Outreach [address], [address] [place] [address] Ariana Bagley [facility] 07/14/2025 Patient Outreach [address], [address] [place] [address] Marianne Bolaños [facility]. (Records) 07/14/2025 Travel 07/09/2025 Refill [facility] [address] [place] [address] Rodolfo Rhoades MD 07/07/2025 Refill [facility] [address] [place] [address] Rodolfo Rhoades MD 07/07/2025 Refill [facility] [address] [place] [address] Jocelyn Velez APRN, DNP Low vitamin D level 07/05/2025 Telephone [facility] [address] [place] [address] Rodolfo Rhoades MD HCN Clinical Concern/Question from Last 3 Months Immunizations Immunization Administration Dates Next Due Influenza, injectable, quadrivalent 12/17/2016 Influenza, injectable, quadr ivalent, preservative free 09/20/2020 Influenza, seasonal, injecta ble, preservative free 12/17/2016 Acarix-C2C Link COVID-19 Vac cine (Purple Cap) 12+ 11/27/2021,04/05/2021,03/08/2021 Family History Medical History Relation Name Comments No Known Problems Daughter Alcohol abuse Father Cirrhosis Father Cancer Maternal Grandfather Jaya Greenfield Heart disease Maternal Grandmother Starr Collins Stroke Maternal Grandmother tSarr Collins Arthritis Mother Em Greenfield COPD Mother [...] the past 12 m [facility], were you homeless or living in a mcfp (including now)? No 08/09/2025 [facility] Utilities Answer Date Recorded In [...] 11:20 AM EST Office Visit [facility] [address] [place] [address] Rodolfo Rhoades MD [address] [place] [address] Health Maintenance Due Date Last [...] 2022 FIT 2022 FOBT 2022 Sigmoidoscopy 2022 [id number] Vaccine (4 - 2024-26 season) 2025 11/27/2021, 04/05/2021, 03/08/2021 [facility]-Influenza Vaccine (#1) 07/31/202509/20, 12/17/2016, 12/17/2016 [facility]- SDOH Screenings 02/06/2026 [facility]-Adult SDOH Screenings 02/06/2026 08/09/2025 [facility]-Depression Screening 07/14/2026 07/14/2025, 06/30 Colonoscopy 02/24/2035 02/24/2025 [facility]-Colorectal Cancer Screening 02/24/2035 [facility]-Diabetes: Hemoglobin A1C Discontinued 08/07/2025, 03/27/2025, 07/25/2024, Additional history exists [facility]-Hepatitis C Screening Completed 08/09/2025, 03/2021 [facility]-HIV Screening Completed 08/12/2025, 08/09/2025 [facility]-Obesity Intervention Completed 025, 08/08/2025, 06/07/2025, Additional history exists HPV Vaccines Aged Out [...] UNSOLICITED RESULTS Routine 08/18/2025 12:13 PM EDT [facility], E/M 30-74 MINUTES Routine 08/18/2025 [...] AUTO DIFFERENTIAL Routine 08/18/2025 12:26 AM EDT IA CRITICAL CARE, E/M 30-74 MINUTES Routine 08/17/2025 [...] SERUM (SO) Routine 08/09/2025 11:46 AM EDT [id number] (SO) Routine 08/09/2025 11:46 AM EDT COMPREHENSIVE [...] AUTO DIFFERENTIAL STAT 08/09/2025 12:36 AM EDT [facility] CRITICAL CARE, ADDL 30 MIN Routine 08/08/2025 11:50 PM EDT IA CRITICAL CARE, E/M 30-74 MINUTES Routine 08/08/2025 [...] W/ CONTRAST 08/07/2025 6:38 AM EDT [facility] ([facility]) Routine 08/07/2025 5:05 AM EDT CK Routine [...] PLASMA Routine 08/06/2025 1:22 PM EDT [facility] ([facility]) Routine 08/06/2025 1:22 PM EDT PHOSPHORUS, PLASMA Routine 08/06/2025 1:22 PM EDT CK Routine 08/06/2025 1:22 PM EDT XR OUTSIDE IMAGES 08/06/2025 12:26 PM EDT XR ANKLE RIGHT 2 VIEWS 12:23 PM EDT APTT Routine 08/06/2025 10:00 AM EDT PROTHROMBIN TIME(PT) / INR Routine 08/06/2025 10:00 AM EDT [facility] ([facility]) Routine 08/06/2025 10:00 AM EDT XR OUTSIDE [...] PLASMA Routine 08/06/2025 7:50 AM EDT [facility] ([facility]) Routine 08/06/2025 7:50 AM EDT LACTIC ACID, [...] - 168 U/L 09/15/2025 7:36 PM EDT [facility] Blood Venous blood specimen / Unknown Venipuncture / Unknown 09/15/2025 2:12 PM EDT 09/15/2025 2:12 PM EDT us Rodolfo Rhoades MD LAB BLOOD ORDERABLES Final Res ult [facility] [address] [place] [address] * (ABNORMAL) CBC and Differential (09/15/2025 2:12 PM EDT) Only the most recent of32 resultswithin the time period is included. Pathologist [facility] WBC Count 8.31 3.70 - 10.30 10*3/uL LAB HEMATOLOGY METHOD 09/15/2025 7:19 PM EDT [facility] RBC Count 3.45(L) 3.90 - 5.20 10*6/uL LAB HEMATOLOGY METHOD 09/15/2025 7:19 PM EDT [facility] HGB 10.4(L) 11.2 - 15.7 g/dL LAB HEMATOLOGY METHOD 09/15/2025 7:19 PM EDT [facility] HCT 34.9 34.0 - 45.0 % LAB HEMATOLOGY METHOD 09/15/2025 7:19 PM EDT [facility] Platelet Count 331 155 - 369 10*3/uL LAB HEMATOLOGY METHOD 09/15/2025 7:19 PM EDT [facility] MCV 101(H) 79 - 98 fL LAB HEMATOLOGY METHOD 09/15/2025 7:19 PM EDT [facility] MCH 30.1 26.0 - 32.0 pg LAB HEMATOLOGY METHOD 09/15/2025 7:19 PM EDT [facility] MCHC 29.8(L) 30.7 - 35.5 g/dL LAB HEMATOLOGY METHOD 09/15/2025 7:19 PM EDT [facility] RDW 15.2(H) 11.5 - 14.5 % LAB HEMATOLOGY METHOD 09/15/2025 7:19 PM EDT [facility] MPV 9.7 8.8 - 12.5 fL LAB HEMATOLOGY METHOD 09/15/2025 7:19 PM EDT [facility] nRBC 0.0 <=0.0 per 100 WBCs LAB HEMATOLOGY METHOD 09/15/2025 7:19 PM EDT [facility] Differential Type Automated LAB HEMATOLOGY METHOD 09/15/2025 7:19 PM EDT [facility] Neutrophils % 62 % LAB HEMATOLOGY METHOD 09/15/2025 7:19 PM EDT [facility] Lymphocytes % 27 % LAB HEMATOLOGY METHOD 09/15/2025 7:19 PM EDT [facility] Monocytes % 8 % LAB HEMATOLOGY METHOD 09/15/2025 7:19 PM EDT [facility] Eosinophils % 3 % LAB HEMATOLOGY METHOD 09/15/2025 7:19 PM EDT [facility] Basophils % 0 % LAB HEMATOLOGY METHOD 09/15/2025 7:19 PM EDT [facility] Immature Granulocytes % 0 % LAB HEMATOLOGY METHOD 09/15/2025 7:19 PM EDT [facility] Neutrophils Absolute 5.13 1.60 - 6.10 10*3/uL LAB HEMATOLOGY METHOD 09/15/2025 7:19 PM EDT [facility] Lymphocytes Absolute 2.20 1.20 - 3.90 10*3/uL LAB HEMATOLOGY METHOD 09/15/2025 7:19 PM EDT [facility] Monocytes Absolute 0.70 0.30 - 0.90 10*3/uL LAB HEMATOLOGY METHOD 09/15/2025 7:19 PM EDT [facility] Eosinophils Absolute 0.22 0.00 - 0.50 10*3/uL LAB HEMATOLOGY METHOD 09/15/2025 7:19 PM EDT [facility] Basophils Absolute 0.03 0.00 - 0.10 10*3/uL LAB HEMATOLOGY METHOD 09/15/2025 7:19 PM EDT [facility] Immature Granulocytes Absolute 0.03 0.00 - 0.06 10*3/uL LAB HEMATOLOGY METHOD 09/15/2025 7:19 PM EDT [facility] Blood Venous blood specimen / Unknown Venipuncture / Unknown 09/15/2025 2:12 PM EDT 09/15/2025 2:12 PM EDT Narrative [facility] - 09/15/2025 7:19 PM EDT Therapeutic decision making should be based on absolute values, rather than percentages. Result Forrest Rhoades MD LAB BLOOD ORDERABLES Final Res ult Performing Organization Address City/[facility]/ZIP Co de Phone Number [facility] [address] [place] [address] * Iron, Plasma (09/15/2025 2:12 PM EDT) Only the most recent of2 resultswithin the time period is included. Iron, Plasma 40 30 - 160 ug/dL 09/15/2025 7:36 PM EDT [facility] Blood Venous blood specimen / Unknown Venipuncture / Unknown 09/15/2025 2:12 PM EDT 09/15/2025 2:12 PM EDT Result Forrest Rhoades MD LAB BLOOD ORDERABLES Final Res ult Performing Organization Address [facility] Co de Phone Number [facility] [address] [place] [address] * (ABNORMAL) Ferritin, Serum (09/15/2025 2:12 PM EDT) Only the most recent of3 resultswithin the time period is included. Ferritin, Serum 356(H) 13 - 150 ng/mL 09/15/2025 7:49 PM EDT [facility] Blood Venous blood specimen / Unknown Venipuncture / Unknown 09/15/2025 2:12 PM EDT 09/15/2025 2:12 PM EDT us Rodolfo Rhoades MD LAB BLOOD ORDERABLES Final Res ult Performing Organization Address City/[facility]/ZIP Co de Phone Number [facility] [address] [place] [address] * Vitamin B12, Serum (09/15/2025 2:12 PM EDT) Vitamin B12, Serum 531 210 - 1,033 pg/mL 09/15/2025 7:49 PM EDT [facility] Blood Venous blood specimen / Unknown Venipuncture / Unknown 09/15/2025 2:12 PM EDT 09/15/2025 2:12 PM EDT us Rodolfo Rhoades MD LAB BLOOD ORDERABLES Final Res ult [facility] [address] [place] [address] * (ABNORMAL) Comprehensive Metabolic Panel, Plasma (09/15/2025 2:12 PM EDT) Only the most recent of36 resultswithin the time period is included. Glucose, Plasma 73(L) 74 - 99 mg/dL 09/15/2025 7:36 PM EDT [facility] BUN, Plasma 6(L) 7 - 21 mg/dL 09/15/2025 7:36 PM EDT [facility] Creatinine, Plasma 0.56(L) 0.60 - 1.10 mg/dL 09/15/2025 7:36 PM EDT [facility] BUN/Creatinine Ratio 11 09/15/2025 7:36 PM EDT [facility] Sodium, Plasma 139 136 - 145 mmol/L 09/15/2025 7:36 PM EDT [facility] Potassium, Plasma 4.2 3.6 - 4.9 mmol/L 09/15/2025 7:36 PM EDT [facility] Chloride, Plasma 100 97 - 107 mmol/L 09/15/2025 7:36 PM EDT [facility] CO2, Plasma 31(H) 22 - 29 mmol/L 09/15/2025 7:36 PM EDT [facility] Anion Gap 8 6 - 16 mmol/L 09/15/2025 7:36 PM EDT [facility] Total Calcium, Plasma 10.1 8.9 - 10.2 mg/dL 09/15/2025 7:36 PM EDT [facility] Total Protein 7.1 6.3 - 7.9 g/dL 09/15/2025 7:36 PM EDT [facility] Albumin, Plasma 3.4(L) 3.5 - 5.2 g/dL 09/15/2025 7:36 PM EDT [facility] AST, Plasma 26 10 - 35 U/L 09/15/2025 7:36 PM EDT [facility] ALT, Plasma 16 10 - 35 U/L 09/15/2025 7:36 PM EDT [facility] Alkaline Phosphatase, Plasma 108(H) 35 - 104 U/L 09/15/2025 7:36 PM EDT [facility] Total Bilirubin, Plasma 0.4 0.2 - 1.1 mg/dL 09/15/2025 7:36 PM EDT [facility] eGFRcr 112.7 mL/min/1.7 3m*2 09/15/2025 7:36 PM EDT [facility] Comment:Reported eGFRcr in m L/min/1.73m2 is based the CKD-EPI 2020 equation that does not use a race coefficient. Blood Venous blood specimen / Unknown Venipuncture / Unknown 09/15/2025 2:12 PM EDT 09/15/2025 2:12 PM EDT Rodolfo Rhoades MD LAB BLOOD ORDERABLES Final Res ult [facility] [address] [place] [address] * Type and screen (09/06/2025 10:04 AM [...] BANK TEST ORDERABLES Final Result BLOOD BANK [address] [place] [address], * Prepare Leukocyte Reduced RBC: 1 Units, Leukocyte reduced (CMV reduced risk) (09/06/2025 9:11 AM EDT) Only the most recent of2 resultswithin the time period is included. Pathologist [facility] Product Code [id number] BLOO D BANK Dispense Status Transfused BLOOD BANK Blood Expiration Date [id number] BLOOD BANK Unit Number [id number] B LOOD BANK Product Blood Type 9500 BLOOD BANK Blood Type O- BLOOD BANK Crossmatch Compatible BLOOD BANK Other Tammy Caban MD BLOOD BANK PRODUCT ORDERABLES Final Result Performing Organization Address City/[facility] Co [place] [address], [place] * POCT glucose meter (09/06/2025 6:48 AM EDT) Only the most recent of62 resultswithin the time period is included. [facility] POCT Glucose 91 74 - 99 mg/dL [...] 09/06/2025 7:23 AM EDT [facility] Event Promotions Coordinator ID Rappa, Kamryn 09/06/2025 7:23 AM EDT HEALTHCARE LAB Device ID [id number] 09/06/2025 7:23 AM EDT [facility]ALTH[facility]ARE LAB Specimen Type POC Capillary 09/06/2025 7:23 AM EDT [facility]ALTH[facility] Blood Capillary blood specimen / Unknown 09/06/2025 6:48 AM EDT 09/06/2025 7:23 AM EDT Tammy Caban MD LAB POINT OF CARE TE ST DOCKED DEVICE UNSOLICITED RESULTS Final Result Performing Organization Address [facility] de Phone Number [facility] [address] [place] [address] * (ABNORMAL) Protime-INR (09/06/2025 3:37 AM EDT) Only the most recent of35 resultswithin the time period is included. Prothrombin Time 30.2(H) 12.0 - 14.3 sec 09/06/2025 4:34 AM EDT [facility]ALTHCARE LAB INR 2.8(H) 0.9 - 1.1 09/06/2025 4:[address] [facility] Blood Venous blood specimen / [...] INR 2.5 to 3.5 Prevention of recurrent CA INR 2.5 to 3.5 us Emma Lehman MD LAB BLOOD ORDERABLES Final Resu lt Performing Organization Address [facility] de Phone Number [facility] [address] [place] [address] * Phosphorus, Plasma (09/06/2025 3:37 AM EDT) Only the most recent of32 resultswithin the time period is included. Phosphorus, Plasma 4.0 2.5 - 4.5 mg/dL 09/06/2025 4:51 AM EDT [facility]ALTH[facility]ARE [facility] Blood Venous blood specimen / Unknown Venipuncture / Unknown 09/06/2025 3:37 AM EDT 09/06/2025 3:59 AM EDT us Emma Lehman MD LAB BLOOD ORDERABLES Final Resu lt Performing Organization Address City/[facility] de Phone Number [facility]ALTHCARE [facility] [address] [place] [address] * Magnesium, Plasma (09/06/2025 3:37 AM EDT) Only the most recent of34 resultswithin the time period is included. Magnesium, Plasma 1.9 1.9 - 2.4 mg/dL 09/06/2025 4:51 AM EDT [facility]ALTH[facility]ARE [facility] Blood Venous blood specimen / Unknown Venipuncture / Unknown 09/06/2025 3:37 AM EDT 09/06/2025 3:59 AM EDT us Emma Lehman MD LAB BLOOD ORDERABLES Final Resu lt [facility] [address] [place] [address] * XR Shoulder Right 2+ Views (08/30/2025 [...] ECG Atrial Rate 82 BPM MUSE ECG IA Interval 132 ms MUSE ECG QRSD Interval 76 ms MUSE ECG QT Interval 362 ms MUSE ECG QTC Interval 422 ms MUSE ECG P Fraser 29 degrees MUSE ECG R Fraser 7 degrees MUSE ECG T Wave Fraser 37 degrees MUSE ECG Diagnosis Normal sinus rhythm MUSE ECG Diagnosis Moderate voltage criteria for LVH, may be normal variant ( R in aVL , Tie Siding product ) MUSE ECG Diagnosis Borderline ECG [...] Ab Negative Negative 09/16/2025 6:08 PM EDT [facility] ([employer]) Blood Venous blood specimen / Unknown Venipuncture / Unknown 08/26/2025 3:26 AM EDT 08/26/2025 3:35 AM EDT Narrative [facility] ([employer]) - 09/16/2025 6:08 PM EDT This test was developed and its performance characteristics determined by [employer]. It has not been cleared or approved by the Food and Drug Administration. Performed by: [address] [facility] [address] [place] [address] Kash Garcia MD us Stacie Brown MD LAB REF LAB BLOOD AND FLUI D ORD Final Result [facility] ([employer]) [address] [place] [address] * (ABNORMAL) Myositis Antibody Panel (SO) (08/26/2025 3:26 AM EDT) Only the most recent of2 resultswithin the time period is included. [facility]/[employer] ([employer]) Ab, IgG 3 0 - 19 Units 09/02/2025 2:19 PM EDT [facility] ([employer]) SSA-52 (RO52) (PAPA) Antibody, IgG 130(H) 0 - 40 AU/mL 09/02/2025 2:19 PM EDT [facility] ([employer]) Mulu-1 (Histidyl-tRNA Synthetase) Ab, IgG 3 0 - 40 AU/mL 09/02/2025 2:19 PM EDT [facility] ([employer]) PM/Scl 100 Antibody, IgG Negative Negative 09/02/2025 2:19 PM EDT [facility] ([employer]) CA-2 (NUCLEAR HELICASE PROTEIN) ANTIBODY Negative Negative 09/02/2025 2:19 PM EDT [facility] ([employer]) PL-7 (THREONYL-TRNA SYNTHETASE) ANTIBODY Negative Negative 09/02/2025 2:19 PM EDT [facility] ([employer]) PL-12 (ALANYL-TRNA SYNTHETASE) ANTIBODY Negative Negative 09/02/2025 2:19 PM EDT [facility] ([employer]) P155/140 ANTIBODY Negative Negative 09/02/2025 2:19 PM EDT [facility] ([employer]) EJ (GLYCYL-TRNA SYNTHETASE) ANTIBODY Negative Negative 09/02/2025 2:19 PM EDT [facility] ([employer]) KU ANTIBODY Negative Negative 09/02/2025 2:19 PM EDT [facility] ([employer]) SRP (SIGNAL RECOGNITION PARTICLE) AB Negative Negative 09/02/2025 2:19 PM EDT [facility] ([employer]) OJ (ISOLEUCYL-TRNA SYNTHETASE) ANTIBODY Negative Negative 09/02/2025 2:19 PM EDT [facility] ([employer]) SSA-60 (RO60) (PAPA) Antibody, IgG 1 0 - 40 AU/mL 09/02/2025 2:19 PM EDT [facility] ([employer]) Fibrillarin (U3 DIGITAL MARKETING MANAGER) Ab, IgG Negative Negative 09/02/2025 2:19 PM EDT [facility] [facility] MYOSITIS PANEL INTERPRETIVE DATA See Note 09/02/2025 2:19 PM EDT [facility] ([employer]) SAE1 (SUMO ACTIVATING ENZYME) AB Negative Negative 09/02/2025 2:19 PM EDT [facility] ([employer]) MDA5 (CADM-140) AB Negative Negative 09/02/2025 2:19 PM EDT [facility] ([employer]) NXP2 (NUCLEAR MATRIX PROTEIN-2) AB Negative Negative 09/02/2025 2:19 PM EDT [facility] ([employer]) TIF-1 GAMMA (155 KDA) AB Negative Negative 09/02/2025 2:19 PM EDT [facility] ([employer]) Anti Nuc Ab Screen <1:80 <1:80 09/02/2025 2:19 PM EDT [facility] ([employer]) BINH INTERPRETIVE COMMENT See Note 09/02/2025 2:19 PM EDT [facility] ([employer]) Smith (tyrosyl-tRNA synthetase) Ab Negative Negative 09/02/2025 2:19 PM EDT [facility] ([employer]) Ks (asparaginyl-tRN A synthetase) Ab Negative Negative 09/02/2025 2:19 PM EDT [facility] ([employer]) Zo (phenylalanyl-tR NA synthetase) Ab Negative Negative 09/02/2025 2:19 PM EDT [facility] ([employer]) HMGCR Antibody Screen Negative Negative 09/02/2025 2:19 PM EDT [facility] ([employer]) Blood Venous blood specimen / Unknown Venipuncture / Unknown 08/26/2025 3:26 AM EDT 08/26/2025 3:35 AM EDT Narrative [facility] ([employer]) - 09/02/2025 2:19 PM EDT INTERPRETIVE INFORMATION: [...] . . . . . . X Foster/DIGITAL MARKETING MANAGER (PAPA) Ab, IgG . . . . [...] . . . . X Fibrillarin (U3 DIGITAL MARKETING MANAGER) Ab, IgG . . . . . [...] Ab . . . . X HMGCR (6-Tfoucmd-0-Methylglutaryl Coenzyme A Reductase) . . . . . . . . X This test was developed and its performance characteristics determined by [facility]. It has not been cleared or approved [...] (interstitial lung disease), Raynaud phenomenon, arthritis, and farm equipment engine mechanic's hands (implicated in antisynthetase syndrome). INTERPRETIVE INFORMATION: Foster/DIGITAL MARKETING MANAGER (PAPA) Antibody, IgG 19 Units or Less ............. Negative 20 to 39 Units ............... Weak Positive 40 to 80 Units ............... Moderate Positive 81 Units or greater .......... Strong Positive Foster/DIGITAL MARKETING MANAGER antibodies are frequently seen in patients with mixed connective tissue disease (MCTD) and are also associated with other systemic autoimmune rheumatic diseases (SARDs) such as systemic lupus erythematosus (SLE), systemic sclerosis, and myositis. Antibodies targeting the Foster/DIGITAL MARKETING MANAGER antigenic complex also recognize Foster antigens, therefore, [...] developed and its performance characteristics determined by [facility]. It has not been cleared or approved [...] Greater .......... Positive Interpretive Information: Fibrillarin (U3 DIGITAL MARKETING MANAGER) Antibody, IgG The presence of fibrillarin (U3-DIGITAL MARKETING MANAGER) IgG antibodies in association with an BINH [...] a multi-ethnic cohort of SSc patients (n=98), U3-DIGITAL MARKETING MANAGER antibodies detected by immunoblot had an agreement of 98.9 percent with the gold standard immunoprecipitation (IP) assay. Approximately 71 percent (5/7) of the borderline U3-DIGITAL MARKETING MANAGER results with BINH nucleolar pattern in this cohort were IP negative. This test was developed and its performance characteristics determined by [facility]. It has not been cleared or approved [...] further testing will be performed. Performed By: [facility] [address] [place] [address] Lighting Technician: Esvin Pat MD, PhD CLIA Number: [id number] Stacie Brown MD LAB BLOOD ORDERABLES Final Result Performing Organization Address [facility] de Phone Number [facility] ([facility]) [address] [place] [address] * (ABNORMAL) Cytoplasmic Pattern (08/26/2025 3:26 AM EDT) Only the most recent of2 resultswithin the time period is included. Cytoplasm Pattern AMA(A) 08/31/2025 11:48 PM EDT [facility] Cytoplasmic Titer 1:80(A) 08/31/2025 11:48 PM EDT [facility] ([employer]) Blood Venous blood specimen / Unknown Venipuncture / Unknown 08/26/2025 3:26 AM EDT 08/26/2025 3:35 AM EDT Narrative [facility] ([employer]) - 08/31/2025 11:48 PM EDT Performed By: [facility] [address] [place] [address] Lighting Technician: Esvin Pat MD, PhD CLIA Number: [id number] Stacie Brown MD LAB BLOOD ORDERABLES Final Result Performing Organization Address [facility] de Phone Number [facility] ([facility]) [address] [place] [address] * (ABNORMAL) Anti-smooth muscle antibody, IgG (08/26/2025 3:26 AM EDT) Only the most recent of2 resultswithin the time period is included. Smooth Muscle Ab, IgG Titer 1:160(H) <1:20 08/28/2025 10:40 PM EDT [facility] ([employer]) Blood Venous blood specimen / Unknown Venipuncture / Unknown 08/26/2025 3:26 AM EDT 08/26/2025 3:35 AM EDT Narrative [facility] ([facility]) - 08/28/2025 10:40 PM EDT INTERPRETIVE INFORMATION: Smooth Muscle Ab, IgG Titer Less than 1:20 ........ Negative - No antibody detected. 1:20 - 1:80 .......... Weak Positive - Suggest repeat in two to three weeks with fresh specimen. 1:160 or greater ...... Positive - Suggestive of autoimmune hepatitis or chronic active hepatitis. Performed By: [facility] [address] [place] [address] Lighting Technician: Esvin Pat MD, PhD CLIA Number: [id number] us Stacie Brown MD LAB BLOOD ORDERABLES Final Result [facility]) [address] [place] [address] * [place] Modified Barium Swallow (08/22/2025 12:21 [...] coursing through the expected location within the oondj-fk-yjzk. Procedure Note Crow Redding MD - 08/22/2025 [...] tubing coursing through the expectedlocation within the oeaux-ug-pjub. IMPRESSION: Intermittent penetration and aspiration of thin [...] PM EDT) Case Report Surgical Pathology Case: [id number] Authorizing Provider: Carla Montes MD Collected: 08/21/2025 1525 Ordering Location: [facility] Operating Room Received: 08/22/2025 0636 Pathologist: Jumana Beck MD Specimens: A) - Leg, Right, right thigh muscle biopsy/1 piece fresh, 1 piece placed in formalin, 1 piece placed in Glutaraldehyde B) - Foot, Right, right foot skin biopsy 7:28 PM EDT [facility] Final Diagnosis A. SKELETAL MUSCLE, RIGHT THIGH, BIOPSY: - EXTENSIVE DEGENERATING AND REGENERATING FIBERS WITH SCATTERED MACROPHAGES - SEE COMMENT AND TEMPLATE B. PER DR. ECHEVERRIA, [id number]: RIGHT FOOT: - EPIDERMAL NECROSIS AND CRUSTING (SEE COMMENT). 7:28 PM EDT [facility] at 1928 EDT Comment Comment A [...] Nader Echeverria. Dr. Echeverria's entire consultation report ([id number]) can be viewed as a scanned document in Unified [employer]. 5 7:28 PM EDT [facility] Clinical Information Non-traumatic rhabdomyolysis [M62.82] Clinical [...] Diffuse subcutaneous edema.... 5 7:28 PM EDT [facility] Microscopic Description Skeletal Muscle Template Cryostat [...] report. Skin biopsy Description: PER DR. ECHEVERRIA, [id number]: The epidermis is necrotic and crusted. Vasculitis is not seen. Interface change is not conspicuous. The dermis demonstrates loose fibrosis but marked inflammation is not seen. 5 7:28 PM EDT [facility] Special and Immunohistochemical Stains Special Stain: A1-2 Modified Gomori Trichrome A1-3 PAS A1-4 Oil Red O A1-5 ATP - Adenosine Triphophatase A1-6 NADH Tetrazolium Reductase IHC: A2-2 CD3: highlights very rare reactive T cells A2-3 CD20: negative A2-4 DZ80-LF2: highlights scattered macrophages within myocytes All controls show appropriate reactivity. All immunohistochemis try, in situ hybridization, and histochemical tests were developed by and are performed at the [facility], [address] [place] [address]. All tests reported here, except those addressing [...] negativity on decalcified specimens. 7:28 PM EDT [facility] Gross Description A. RIGHT THIGH MUSCLE [...] <1m Lizzette B Pettey 7:28 PM EDT [facility] Note: A resident was involved in the service. I attest I examined the relevant preparations for the specimens and confirmed the diagnosis or interpretation. 7:28 PM EDT [facility] Tissue Structure of right lower limb [...] Montes MD LAB PATHOLOGY ORDERABLES Final Result [facility] [address] [place] [address] * PERIPHERAL IV (SMARTFORM LINK) (08/21/2025 1:25 [...] period is included. Pathologist [facility] Ionized Calcium, Whole Blood 5.0 4.6 - 5.1 mg/dL LAB HEMATOLOGY METHOD 08/21/2025 12:[address] [facility] Blood Venous blood specimen / Unknown Venipuncture / Unknown 08/21/2025 12:12 PM EDT 08/21/2025 12:23 PM EDT us Yeni Landis APRN LAB BLOOD ORDERABLES Rosa [facility] [address] [place] [id number] * Encephalopathy, Autoimm/Paraneo, Serum (SO) (08/21/2025 12:12 PM EDT) Pathologist [facility] AMPA-R Ab CBA, S Negative Negative 08/29/20 9:16 AM EDT [facility] ([facility]) Comment: ADDITIONAL INFORMATION This test was developed and its performance characteristics determined by [facility] in a manner consistent with CLIA requirements. This test has not been cleared or approved by the U.S. Food and Drug Administration. Sethin , S Negative Negative 9:16 AM EDT [facility] ([facility]) Comment: ADDITIONAL INFORMATION This test was developed and its performance characteristics determined by [facility] in a manner consistent with CLIA requirements. This test has not been cleared or approved by the U.S. Food and Drug Administration. AGNA-1, S Negative Negative 08/29/2025 9:16 AM EDT [facility] ([facility]) Comment: ADDITIONAL INFORMATION This test was developed and its performance characteristics determined by [facility] in a manner consistent with CLIA requirements. This test has not been cleared or approved by the U.S. Food and Drug Administration. DARNELL-1, S Negative Negative 08/29/2025 9:16 AM EDT [facility] ([facility]) Comment: ADDITIONAL INFORMATION This test was developed and its performance characteristics determined by [facility] in a manner consistent with CLIA requirements. This test has not been cleared or approved by the U.S. Food and Drug Administration. DARNELL-2, S Negative Negative 08/29/2025 9:16 AM EDT [facility] ([facility]) Comment: ADDITIONAL INFORMATION This test was developed and its performance characteristics determined by [facility] in a manner consistent with CLIA requirements. This test has not been cleared or approved by the U.S. Food and Drug Administration. DARNELL-3, S Negative Negative 08/29/2025 9:16 AM EDT [facility] Comment: ADDITIONAL INFORMATION This test was developed and its performance characteristics determined by [facility] in a manner consistent with CLIA requirements. This test has not been cleared or approved by the U.S. Food and Drug Administration. CASPR2-IgG CBA, S Negative Negative 9:16 AM EDT [facility] Comment: ADDITIONAL INFORMATION This test was developed and its performance characteristics determined by [facility] in a manner consistent with CLIA requirements. This test has not been cleared or approved by the U.S. Food and Drug Administration. CRMP-5-IgG, S Negative Negative 08/29/2025 9:16 AM EDT [facility] Comment: ADDITIONAL INFORMATION This test was developed and its performance characteristics determined by [facility] in a manner consistent with CLIA requirements. This test has not been cleared or approved by the U.S. Food and Drug Administration. KAT-B-R Ab CBA, S Negative Negative 2024 9:16 AM EDT [facility] ([facility]) Comment: ADDITIONAL INFORMATION This test was developed and its performance characteristics determined by [facility] in a manner consistent with CLIA requirements. This test has not been cleared or approved by the U.S. Food and Drug Administration. GAD65 Ab Assay, S 0.00 <=0.02 nmol/L 08/29/2025 9:16 AM EDT [facility] Comment: ADDITIONAL INFORMATION This test was developed and its performance characteristics determined by [facility] in a manner consistent with CLIA requirements. This test has not been cleared or approved by the U.S. Food and Drug Administration. LGI1-IgG CBA, S Negative Negative 9:16 AM EDT [facility] ([facility]) Comment: ADDITIONAL INFORMATION This test was developed and its performance characteristics determined by [facility] in a manner consistent with CLIA requirements. This test has not been cleared or approved by the U.S. Food and Drug Administration. mGluR1 Ab IFA, S Negative Negative 08/29/20 9:16 AM EDT [facility] ([facility]) Comment: ADDITIONAL INFORMATION This test was developed and its performance characteristics determined by [facility] in a manner consistent with CLIA requirements. This test has not been cleared or approved by the U.S. Food and Drug Administration. NMDA-R Ab CBA, S Negative Negative 08/29/20 9:16 AM EDT [facility] ([facility]) Comment: ADDITIONAL INFORMATION This test was developed and its performance characteristics determined by [facility] in a manner consistent with CLIA requirements. This test has not been cleared or approved by the U.S. Food and Drug Administration. MARINE FISHERIES TECHNICIAN-1, S Negative Negative 08/29/2025 9:16 AM EDT [facility] Comment: ADDITIONAL INFORMATION This test was developed and its performance characteristics determined by [facility] in a manner consistent with CLIA requirements. This test has not been cleared or approved by the U.S. Food and Drug Administration. MARINE FISHERIES TECHNICIAN-2, S Negative Negative 08/29/2025 9:16 AM EDT [facility] Comment: ADDITIONAL INFORMATION This test was developed and its performance characteristics determined by [facility] in a manner consistent with CLIA requirements. This test has not been cleared or approved by the U.S. Food and Drug Administration. MARINE FISHERIES TECHNICIAN-Tr, S Negative Negative 08/29/2025 9:16 AM EDT [facility] ([facility]) Comment: ADDITIONAL INFORMATION This test was developed and its performance characteristics determined by [facility] in a manner consistent with CLIA requirements. This test has not been cleared or approved by the U.S. Food and Drug Administration. GFAP IFA, S Negative Negative 08/29/2025 9:16 AM EDT [facility] ([facility]) Comment: ADDITIONAL INFORMATION This test was developed and its performance characteristics determined by [facility] in a manner consistent with CLIA requirements. This test has not been cleared or approved by the U.S. Food and Drug Administration. NIF IFA, S Negative Negative 08/29/2025 9:16 AM EDT [facility] ([facility]) Comment: ADDITIONAL INFORMATION This test was developed and its performance characteristics determined by [facility] in a manner consistent with CLIA requirements. This test has not been cleared or approved by the U.S. Food and Drug Administration. Neurochondrin IFA, S Negative Negative 08/29/2025 9:16 AM EDT [facility] ([facility]) Comment: ADDITIONAL INFORMATION This test was developed and its performance characteristics determined by [facility] in a manner consistent with CLIA requirements. This test has not been cleared or approved by the U.S. Food and Drug Administration. SEPTIN-7 IFA, S Negative Negative 9:16 AM EDT [facility] ([facility]) Comment: ADDITIONAL INFORMATION This test was developed and its performance characteristics determined by [facility] in a manner consistent with CLIA requirements. This test has not been cleared or approved by the U.S. Food and Drug Administration. IFA Notes None. 08/29/2025 9:16 AM EDT [facility] ([facility]) Encephalopathy, Interpretation, S SEE COMMENTS 08/29/2025 9:16 AM EDT [facility] ([facility]) Comment: No informative autoantibodies were detected in this evaluation. However, a negative result does not exclude autoimmune encephalopathy, idiopathic or paraneoplastic. Sensitivity and specificity of antibody testing are enhanced by testing both serum and CSF. DPPX Ab CBA, S Negative Negative 08/29/2025 9:16 AM EDT [facility] ([facility]) Comment: ADDITIONAL INFORMATION This test was developed and its performance characteristics determined by [facility] in a manner consistent with CLIA requirements. This test has not been cleared or approved by the U.S. Food and Drug Administration. IgLON5 CBA, S Negative Negative 08/29/2025 9:16 AM EDT [facility] ([facility]) Comment: ADDITIONAL INFORMATION This test was developed and its performance characteristics determined by [facility] in a manner consistent with CLIA requirements. This test has not been cleared or approved by the U.S. Food and Drug Administration. PDE10A Ab IFA, S Negative Negative 08/29/20 9:16 AM EDT [facility] ([facility]) Comment: ADDITIONAL INFORMATION This test was developed and its performance characteristics determined by [facility] in a manner consistent with CLIA requirements. This test has not been cleared or approved by the U.S. Food and Drug Administration. TRIM46 Ab IFA, S Negative Negative 08/29/20 9:16 AM EDT [facility] ([facility]) Comment: ADDITIONAL INFORMATION This test was developed and its performance characteristics determined by [facility] in a manner consistent with CLIA requirements. This test has not been cleared or approved by the U.S. Food and Drug Administration. Test Performed by: [facility] [address] Overhead Foreman: Gerber Noel Ph.D.; CLIA# [id number] Blood Venous blood specimen / Unknown Venipuncture / Unknown 08/21/2025 12:12 PM EDT 08/21/2025 12:22 PM EDT Stacie Brown MD LAB BLOOD ORDERABLES Final Result [facility]) * IR Lumbar Puncture (08/21/2025 [...] AM COMPARISON: MR head reviewed from 08/19/2025. CONCRETE MIXER: Emma Lebron PA-C SECONDARY GEODESY TEACHER: RT Rowan CONTRAST: 0 cc MEDICATIONS: 1% [...] AM COMPARISON: MR head reviewed from 08/19/2025. CONCRETE MIXER: Emma Lebron PA-C SECONDARY GEODESY TEACHER: RT Rowan CONTRAST: 0 cc MEDICATIONS: 1% [...] BODY FLUIDS AND STOOLS ORDERABLES Final Result [facility] [address] [place] [address] * Meningitis/Encephalitis Panel by PCR (08/21/2025 10:36 AM EDT) Escherichia coli K1 PCR Result Not Detected Not Detected 08/22/2025 8:06 AM EDT [facility] Haemophilus influenzae PCR Result Not Detected Not Detected 08/22/2025 8:06 AM EDT [facility] Listeria monocytogenes PCR Result Not Detected Not Detected 08/22/2025 8:06 AM EDT [facility] Neisseria meningitidis PCR Result Not Detected Not Detected 08/22/2025 8:06 AM EDT [facility] Streptococcus agalactiae PCR Result Not Detected Not Detected 08/22/2025 8:06 AM EDT [facility] Streptococcus pneumoniae PCR Result Not Detected Not Detected 08/22/2025 8:06 AM EDT [facility] Cytomegalovirus (CMV) PCR Result Not Detected Not Detected 08/22/2025 8:06 AM EDT [facility] Enterovirus (EV) PCR Result Not Detected Not Detected 08/22/2025 8:06 AM EDT [facility] Herpes Simplex Virus 1 (HSV-1) PCR Result Not Detected Not Detected 08/22/2025 8:06 AM EDT [facility] Herpes Simplex Virus 2 (HSV-2) PCR Result Not Detected Not Detected 08/22/2025 8:06 AM EDT [facility] Human Herpes Virus 6 (HHV-6) PCR Result Not Detected Presumptive Negative 08/22/2025 8:06 AM EDT [facility] Human Parechovirus (HPeC) PCR Result Not Detected Not Detected 08/22/2025 8:06 AM EDT [facility] Varicella Zoster Virus (VZV) PCR Result Not Detected Not Detected 08/22/2025 8:06 AM EDT [facility] Cryptococcus neoformans/gattii PCR Result Not Detected Not Detected 08/22/2025 8:06 AM EDT [facility] Cerebrospinal Fluid Lumbar puncture / Unknown Non-blood Collection / Unknown 08/21/2025 10:36 AM EDT 08/21/2025 12:24 PM EDT Narrative [facility] - 08/22/2025 8:06 AM EDT This [...] on test performance has not been evaluated. Stacie Brown MD LAB MICROBIOLOGY - GENERAL ORDERABLES Final Result Performing Organization Address [facility] Co de Phone Number [facility] [address] [place] [address] * Freeze and Hold (08/21/2025 10:36 AM EDT) [facility] Signature Freeze and Hold Result The specimen has been received and verified. All specimens are held 30 days before discarding. Time of verification: 222709/22/2025 7:54 AM EDT [facility] Estimated Volume of Specimen 1.0-2.0 mL 09/22/2025 7:54 AM EDT [facility] Cerebrospinal Fluid Lumbar puncture / Unknown Non-blood Collection / Unknown 08/21/2025 10:36 AM EDT 08/21/2025 12:24 PM EDT Stacie Brown MD LAB MICROBIOLOGY - GENERAL ORDERABLES Final Result Performing Organization Address [facility] Co de Phone Number [facility] [address] [place] [address] * Cerebrospinal Fluid (CSF) Culture and Gram Stain (08/21/2025 10:36 AM EDT) Culture No growth at day 4 2024 8:35 AM EDT [facility] Gram Stain No polymorphonuclear leukocytes seen 08/24/2025 8:35 AM EDT [facility] Gram Stain No organisms seen 025 8:35 AM EDT [facility] Cerebrospinal Fluid Lumbar puncture / Unknown Non-blood Collection / Unknown 08/21/2025 10:36 AM EDT 08/21/2025 12:24 PM EDT us Stacie Brown MD LAB MICROBIOLOGY - GENERAL ORDERABLES Final Result [facility] [address] [place] [address] * Non-Gynecologic Cytology (08/21/2025 10:36 AM EDT) Case Report Cytology Case: [id number] Authorizing Provider: Stacie rBown MD Collected: 08/21/2025 1036 Ordering Location: [facility] S Inpatient Received: 08/22/2025 0756 Pathologist: Annemarie Gibbs MD Specimen: Lumbar Puncture, CEREBROSPINAL FLUID 08/22/2025 5:51 PM EDT [facility] Final Diagnosis A. CEREBROSPINAL FLUID - NO EVIDENCE OF MALIGNANCY, RARE MONONUCLEAR CELLS 08/22/2025 5:51 PM EDT [facility] at 1751 EDT Clinical History progressive weakness, BUE, BLE, dysphagia, bullae 08/22/2025 5:51 PM EDT [facility] Previous Cancer No 5:51 PM EDT [facility] Gross Description A. CEREBROSPINAL FLUID 1.0 ml's of clear fluid in tube #1, 2.0 ml's of clear fluid in tube #2, 0.5 ml's of clear fluid in tube #3 and 1.0 ml's of clear fluid in tube #4 all for thinprep 08/22/2025 5:51 PM EDT [facility] Special Instructions opening pressure 08/22/2025 5:51 PM EDT [facility] Cerebrospinal Fluid Lumbar puncture / Unknown Non-blood Collection / Unknown 08/21/2025 10:36 AM EDT 08/22/2025 7:56 AM EDT us Stacie Brown MD LAB CYTOLOGY ORDERABLES Fi nal Result [facility] [address] [place] [address] * CSF Cell Count w/ Manual Differential (08/21/2025 10:27 AM EDT) Unspun Color, CSF Colorless Colorless LAB HEMATOLOGY METHOD 08/21/2025 4:37 PM EDT [facility] Unspun Clarity, CSF Clear Clear LAB HEMATOLOGY METHOD 08/21/2025 4:37 PM EDT [facility] Spun Color, CSF LAB HEMATOLOGY METHOD 08/21/2025 4:37 PM EDT [facility] Comment:Test Not Indicated Spun Clarity, CSF LAB HEMATOLOGY METHOD 08/21/2025 4:37 PM EDT [facility] Comment:Test Not Indicated Volume CSF 5.0 cc LAB HEMATOLOGY METHOD 08/21/2025 4:37 PM EDT [facility] Tube Number, CSF Tube 4 LAB HEMATOLOGY METHOD 08/21/2025 4:37 PM EDT [facility] Red Blood Cell Count, CSF 157 0 uL uL LAB HEMATOLOGY METHOD 08/21/2025 4:37 PM EDT [facility] Comment:Test performed by ma nual method. Total Nucleated Cell Count, CSF 2 0 - 5 L LAB HEMATOLOGY METHOD 08/21/2025 4:37 PM EDT [facility] Comment:Test performed by ma nual method. Neutrophils %, CSF LAB HEMATOLOGY METHOD 08/21/2025 4:37 PM EDT [facility] Comment:Too few to count Lymphocytes %, CSF LAB HEMATOLOGY METHOD 08/21/2025 4:37 PM EDT [facility] Comment:Too few to count Monocytes/Macro phages %, CSF LAB HEMATOLOGY METHOD 08/21/2025 4:37 PM EDT [facility] Comment:Too few to count Eosinophils %, CSF LAB HEMATOLOGY METHOD 08/21/2025 4:37 PM EDT [facility] Comment:Too few to count Basophils %, CSF LAB HEMATOLOGY METHOD 08/21/2025 4:37 PM EDT [facility] Comment:Too few to count Neutrophils Absolute, CSF LAB HEMATOLOGY METHOD 08/21/2025 4:37 PM EDT [facility] Comment:Too few to count Lymphocytes Absolute, CSF LAB HEMATOLOGY METHOD 08/21/2025 4:37 PM EDT [facility] Comment:Too few to count Monocytes/Macro phages Absolute, CSF LAB HEMATOLOGY METHOD 08/21/2025 4:37 PM EDT [facility] Comment:Too few to count Eosinophils Absolute, CSF LAB HEMATOLOGY METHOD 08/21/2025 4:37 PM EDT [facility] Comment:Too few to count Basophils Absolute, CSF LAB HEMATOLOGY METHOD 08/21/2025 4:37 PM EDT [facility] Comment:Too few to count Cerebrospinal Fluid Lumbar puncture / Unknown Non-blood Collection / Unknown 08/21/2025 10:27 AM EDT 08/21/2025 12:31 PM EDT Stacie Brown MD LAB BODY FLUIDS AND STOOLS ORDERABLES Final Result [facility] [address] [place] [address] * Encephalopathy, Autoimm/Paraneo, CSF (SO) (08/21/2025 10:27 AM EDT) AMPA-R Ab CBA, CSF Negative Negative 2024 9:16 AM EDT [facility] ([facility]) Comment: ADDITIONAL INFORMATION This test was developed and its performance characteristics determined by [facility] in a manner consistent with CLIA requirements. This test has not been cleared or approved by the U.S. Food and Drug Administration. Amphiphysin Ab, CSF Negative Negative 08/29/2025 9:16 AM EDT [facility] ([facility]) Comment: ADDITIONAL INFORMATION This test was developed and its performance characteristics determined by [facility] in a manner consistent with CLIA requirements. This test has not been cleared or approved by the U.S. Food and Drug Administration. BAILEE-1, CSF Negative Negative 08/29/2025 9:16 AM EDT [facility] ([facility]) Comment: ADDITIONAL INFORMATION This test was developed and its performance characteristics determined by [facility] in a manner consistent with CLIA requirements. This test has not been cleared or approved by the U.S. Food and Drug Administration. DARNELL-1, CSF Negative Negative 08/29/2025 9:16 AM EDT [facility] ([facility]) Comment: ADDITIONAL INFORMATION This test was developed and its performance characteristics determined by [facility] in a manner consistent with CLIA requirements. This test has not been cleared or approved by the U.S. Food and Drug Administration. DARNELL-2, CSF Negative Negative 08/29/2025 9:16 AM EDT [facility] ([facility]) Comment: ADDITIONAL INFORMATION This test was developed and its performance characteristics determined by [facility] in a manner consistent with CLIA requirements. This test has not been cleared or approved by the U.S. Food and Drug Administration. DARNELL-3, CSF Negative Negative 08/29/2025 9:16 AM EDT [facility] ([facility]) Comment: ADDITIONAL INFORMATION This test was developed and its performance characteristics determined by [facility] in a manner consistent with CLIA requirements. This test has not been cleared or approved by the U.S. Food and Drug Administration. CASPR2-IgG CBA, CSF Negative Negative 08/29/2025 9:16 AM EDT [facility] ([facility]) Comment: ADDITIONAL INFORMATION This test was developed and its performance characteristics determined by [facility] in a manner consistent with CLIA requirements. This test has not been cleared or approved by the U.S. Food and Drug Administration. CRMP-5-IgG, CSF Negative Negative 9:16 AM EDT [facility] Comment: ADDITIONAL INFORMATION This test was developed and its performance characteristics determined by [facility] in a manner consistent with CLIA requirements. This test has not been cleared or approved by the U.S. Food and Drug Administration. KAT-B-R Ab CBA, CSF Negative Negative 08/29/2025 9:16 AM EDT [facility] Comment: ADDITIONAL INFORMATION This test was developed and its performance characteristics determined by [facility] in a manner consistent with CLIA requirements. This test has not been cleared or approved by the U.S. Food and Drug Administration. GAD65 Ab Assay, CSF 0.00 <=0.02 nmol/L 08/29/2025 9:16 AM EDT [facility] Comment: ADDITIONAL INFORMATION This test was developed and its performance characteristics determined by [facility] in a manner consistent with CLIA requirements. This test has not been cleared or approved by the U.S. Food and Drug Administration. GFAP IFA, CSF Negative Negative 08/29/2025 9:16 AM EDT [facility] ([facility]) Comment: ADDITIONAL INFORMATION This test was developed and its performance characteristics determined by [facility] in a manner consistent with CLIA requirements. This test has not been cleared or approved by the U.S. Food and Drug Administration. LGI1-IgG CBA, CSF Negative Negative 9:16 AM EDT [facility] ([facility]) Comment: ADDITIONAL INFORMATION This test was developed and its performance characteristics determined by [facility] in a manner consistent with CLIA requirements. This test has not been cleared or approved by the U.S. Food and Drug Administration. mGluR1 Ab IFA, CSF Negative Negative 2024 9:16 AM EDT [facility] ([facility]) Comment: ADDITIONAL INFORMATION This test was developed and its performance characteristics determined by [facility] in a manner consistent with CLIA requirements. This test has not been cleared or approved by the U.S. Food and Drug Administration. NIF IFA, CSF Negative Negative 08/29/2025 9:16 AM EDT [facility] ([facility]) Comment: ADDITIONAL INFORMATION This test was developed and its performance characteristics determined by [facility] in a manner consistent with CLIA requirements. This test has not been cleared or approved by the U.S. Food and Drug Administration. NMDA-R Ab CBA, CSF Negative Negative 2024 9:16 AM EDT [facility] ([facility]) Comment: ADDITIONAL INFORMATION This test was developed and its performance characteristics determined by [facility] in a manner consistent with CLIA requirements. This test has not been cleared or approved by the U.S. Food and Drug Administration. MARINE FISHERIES TECHNICIAN-1, CSF Negative Negative 08/29/2025 9:16 AM EDT [facility] ([facility]) Comment: ADDITIONAL INFORMATION This test was developed and its performance characteristics determined by [facility] in a manner consistent with CLIA requirements. This test has not been cleared or approved by the U.S. Food and Drug Administration. MARINE FISHERIES TECHNICIAN-2, CSF Negative Negative 08/29/2025 9:16 AM EDT [facility] ([facility]) Comment: ADDITIONAL INFORMATION This test was developed and its performance characteristics determined by [facility] in a manner consistent with CLIA requirements. This test has not been cleared or approved by the U.S. Food and Drug Administration. Neurochondrin IFA, CSF Negative Negative 08/29/2025 9:16 AM EDT [facility] ([facility]) Comment: ADDITIONAL INFORMATION This test was developed and its performance characteristics determined by [facility] in a manner consistent with CLIA requirements. This test has not been cleared or approved by the U.S. Food and Drug Administration. Septin-7 IFA, CSF Negative Negative 9:16 AM EDT [facility] ([facility]) Comment: ADDITIONAL INFORMATION This test was developed and its performance characteristics determined by [facility] in a manner consistent with CLIA requirements. This test has not been cleared or approved by the U.S. Food and Drug Administration. MARINE FISHERIES TECHNICIAN-TR, CSF Negative Negative 08/29/2025 9:16 AM EDT [facility] ([facility]) Comment: ADDITIONAL INFORMATION This test was developed and its performance characteristics determined by [facility] in a manner consistent with CLIA requirements. This test has not been cleared or approved by the U.S. Food and Drug Administration. Encephalopathy, Interpretation, CSF SEE COMMENTS 08/29/2025 9:16 AM [facility] ([facility]) Comment: No informative autoantibodies were detected in this evaluation. However, a negative result does not exclude autoimmune encephalopathy, idiopathic or paraneoplastic. Sensitivity and specificity of antibody testing are enhanced by testing both serum and CSF. IFA Notes None. 08/29/2025 9:16 AM EDT [facility] ([facility]) DPPX Ab CBA, CSF Negative Negative 08/29/20 9:16 AM EDT [facility] ([facility]) Comment: ADDITIONAL INFORMATION This test was developed and its performance characteristics determined by [facility] in a manner consistent with CLIA requirements. This test has not been cleared or approved by the U.S. Food and Drug Administration. IgLON5 CBA, CSF Negative Negative 9:16 AM EDT [facility] ([facility]) Comment: ADDITIONAL INFORMATION This test was developed and its performance characteristics determined by [facility] in a manner consistent with CLIA requirements. This test has not been cleared or approved by the U.S. Food and Drug Administration. PDE10A Ab IFA, CSF Negative Negative 2024 9:16 AM EDT [facility]) Comment: ADDITIONAL INFORMATION This test was developed and its performance characteristics determined by [facility] in a manner consistent with CLIA requirements. This test has not been cleared or approved by the U.S. Food and Drug Administration. TRIM46 Ab IFA, CSF Negative Negative 2024 9:16 AM EDT [facility] ([facility]) Comment: ADDITIONAL INFORMATION This test was developed and its performance characteristics determined by [facility] in a manner consistent with CLIA requirements. This test has not been cleared or approved by the U.S. Food and Drug Administration. Test Performed by: [facility] - [address] [address] Overhead Foreman: Gerber Noel Ph.D.; CLIA# [id number] Cerebrospinal Fluid Cerebrospinal fluid specimen / Unknown Non-blood Collection / Unknown 08/21/2025 10:27 AM EDT 08/21/2025 12:35 PM EDT Stacie Brown MD LAB BODY FLUIDS AND STOOLS ORDERABLES Final Result [facility] ([facility]) * Protein, CSF (08/21/2025 10:27 AM EDT) Total Protein, CSF 18 15 - 45 mg/dL 08/21/2025 3:50 PM EDT [facility] Cerebrospinal Fluid Lumbar puncture / Unknown Non-blood Collection / Unknown 08/21/2025 10:27 AM EDT 08/21/2025 12:35 PM EDT Narrative [facility] - 08/21/2025 3:50 PM EDT Blood, when present in CSF, invalidates protein. Interpret results in the context of the patient's condition and other laboratory results. Stacie Brown MD LAB BODY FLUIDS AND STOOLS ORDERABLES Final Result [facility] [address] [place] [address] * Lactic acid, CSF (08/21/2025 10:27 AM EDT) Lactate, CSF 1.3 1.1 - 2.4 mmol/L 08/21/2025 4:04 PM EDT [facility] Cerebrospinal Fluid Lumbar puncture / Unknown Non-blood Collection / Unknown 08/21/2025 10:27 AM EDT 08/21/2025 12:35 PM EDT Narrative [facility] - 08/21/2025 4:04 PM EDT CSF reference intervals are based on literature values and have not been verified at the [facility]. Stacie Brown MD LAB BODY FLUIDS AND STOOLS ORDERABLES Final Result Performing Organization Address [facility] Co de Phone Number [facility] [address] [place] [phone] * Glucose, CSF (08/21/2025 10:27 AM EDT) [facility] Glucose, CSF 67 41 - 70 mg/dL 08/21/2025 3:50 PM EDT [facility] Cerebrospinal Fluid Lumbar puncture / Unknown Non-blood Collection / Unknown 08/21/2025 10:27 AM EDT 08/21/2025 12:35 PM EDT Narrative [facility] - 08/21/2025 3:50 PM EDT CSF glucose values should be approximately 60 % of the plasma values and must always be compared with concurrently measured plasma values for adequate clinical interpretation. No reference ranges have been established for pediatric patients. Stacie Brown MD LAB BODY FLUIDS AND STOOLS ORDERABLES Final Result Performing Organization Address [facility] de Phone Number [facility] [address] [place] [phone] * (ABNORMAL) Hemogram (CBC) (08/20/2025 8:51 AM EDT) Only the most recent of4 resultswithin the time period is included. Pathologist [facility] WBC Count 15.41(H) 3.70 - 10.30 10*3/uL LAB HEMATOLOGY METHOD 08/20/2025 8:[address] [facility] RBC Count 2.74(L) 3.90 - 5.20 10*6/uL LAB HEMATOLOGY METHOD 08/20/2025 8:[address] [facility] HGB 8.3(L) 11.2 - 15.7 g/dL LAB HEMATOLOGY METHOD 08/20/2025 8:[address] [facility] HCT 26.7(L) 34.0 - 45.0 % LAB HEMATOLOGY METHOD 08/20/2025 8:[address] [facility] Platelet Count 408(H) 155 - 369 10*3/uL LAB HEMATOLOGY METHOD 08/20/2025 8:[address] [facility] MCV 97 79 - 98 fL LAB HEMATOLOGY METHOD 08/20/2025 8:[address] [facility] MCH 30.3 26.0 - 32.0 pg LAB HEMATOLOGY METHOD 08/20/2025 8:[address] [facility] MCHC 31.1 30.7 - 35.5 g/dL LAB HEMATOLOGY METHOD 08/20/2025 8:[address] [facility] RDW 18.9(H) 11.5 - 14.5 % LAB HEMATOLOGY METHOD 08/20/2025 8:[address] [facility] MPV 9.6 8.8 - 12.5 fL LAB HEMATOLOGY METHOD 08/20/2025 8:[address] [facility] nRBC 0.0 <=0.0 per 100 WBCs LAB HEMATOLOGY METHOD 08/20/2025 8:[address] [facility] Blood Venous blood specimen / Unknown Venipuncture / Unknown 08/20/2025 8:51 AM EDT 08/20/2025 8:54 AM EDT us Kobe ALDANA LAB BLOOD ORDERABLES Final [facility] [address] [place] [phone] * (ABNORMAL) Vancomycin, Peak, Plasma Please draw vancomycin peak two hours AFTER the conclusion of the vancomycin infusion. This order is time sensitive and is essential to ensure timely dosing of subsequent doses. (08/20/2025 8:50 AM EDT) Vancomycin, Peak, Plasma 41.2(H) 20.0 - 40.0 ug/mL 08/20/2025 9:[address] [facility] Blood Venous blood specimen / Unknown Venipuncture / Unknown 08/20/2025 8:50 AM EDT 08/20/2025 8:54 AM EDT Narrative [facility] - 08/20/2025 9:13 AM EDT Therapeutic Peak level: 20-40ug/mL Supra-therapeutic Peak level: >40 ug/mL Imelda Geiger MD LAB BLOOD ORDERABLES Final Resul t Performing Organization Address [facility] Co de Phone Number [facility] [address] [place] [address] * Transfuse RBC (08/20/2025 5:36 AM EDT) Kobe ALDANA BLOOD TRANSFUSION ORDERABLES Final Result * (ABNORMAL) Vancomycin, Trough, Plasma Please draw vancomycin trough 30 minutes BEFORE the START of the vancomycin infusion. This order is time sensitive and is essential to ensure timely dosing of subsequent doses. (08/20/2025 5:35 AM EDT) Pathologist [facility] Vancomycin, Trough, Plasma 20.5(H) 10.0 - 20.0 ug/mL 08/20/2025 6:[address] [facility] Blood Venous blood specimen / Unknown Venipuncture / Unknown 08/20/2025 5:35 AM EDT 08/20/2025 5:[address] [facility] - 08/20/2025 6:05 AM EDT Therapeutic Trough level: 10-20ug/mL Supra-therapeutic Trough level: >20 ug/mL Imelda Geiger MD LAB BLOOD ORDERABLES Final Resul t Performing Organization Address [facility] de Phone Number [facility] [address] [place] [address] * Cyndee auris Surveillance by PCR (08/20/2025 3:53 AM EDT) Pathologist [facility] Cyndee auris PCR Result Not Detected Not Detected 08/21/2025 5:50 AM EDT [facility] Swab (Axilla and Groin) Non-blood Collection / Unknown 08/20/2025 3:53 AM EDT 08/20/2025 6:47 AM EDT Narrative [facility] - 08/21/2025 5:50 AM EDT This PCR assay was developed and its performance characteristics determined by [facility] as appropriate for clinical purposes. This assay has not been cleared or approved by the FDA, but is performed in a CLIA regulated laboratory that is qualified to perform high-complexity testing. us Imelda Geiger MD LAB MICROBIOLOGY - GENERAL ORDER ISABELLE Final Result [facility] [address] [place] [address] * (ABNORMAL) POCT venous blood gas gem (08/20/2025 1:29 AM EDT) pH, Venous 7.41 7.32 - 7.43 08/20/2025 1:[address] [facility] pCO2, Venous 49 37 - 52 mm Hg 08/20/2025 1:[address] [facility] pO2, Venous 61(H) 25 - 40 mm Hg 08/20/2025 1:[address] [facility] SO2, Venous 92(H) 65 - 80 % 08/20/2025 1:[address] [facility] Base Excess/Deficit , Venous 5.8(H) -2 - 3 mmol/L 08/20/2025 1:[address] [facility] HCO3, Venous 31.1(H) 22 - 26 mmol/L 08/20/2025 1:[address] [facility] Hemoglobin, Venous 7.2(L) 11.2 - 15.7 g/dL 08/20/2025 1:[address] [facility] Hematocrit, Venous 22.0(L) 34.0 - 45.0 % 08/20/2025 1:[address] [facility] Sodium, Venous 129(L) 136 - 145 mmol/L 08/20/2025 1:[address] [facility] Potassium, Venous 4.5 3.6 - 4.9 mmol/L 08/20/2025 1:[address] [facility] POCT Chloride, Venous 106 97 - 107 mmol/L 08/20/2025 1:[address] [facility] Glucose, Venous 122(H) 74 - 99 mg/dL 08/20/2025 1:[address] [facility] Ionized Calcium, Venous 5.2(H) 4.6 - 5.1 mg/dL 08/20/2025 1:[address] [facility] Lactate, Venous 1.2 0.5 - 2.2 mmol/L 08/20/2025 1:[address] [facility] pH, Temp Corrected, Venous 7.41 7.32 - 7.43 08/20/2025 1:[address] [facility] pCO2, Temp Corrected, Venous 49 37 - 52 mm Hg 08/20/2025 1:[address] [facility] pO2, Temp Corrected, Venous 61(H) 25 - 40 mm Hg 08/20/2025 1:[address] [facility] Event Promotions Coordinator ID Isaac Escobar 08/20/2025 1:[address] [facility] Blood, Venous Whole blood specimen / Unknown 08/20/2025 1:29 AM EDT 08/20/2025 1:30 AM EDT us Imelda Geiger MD LAB POINT OF CARE TE ST DOCKED DEVICE UNSOLICITED RESULTS Final Result Performing Organization Address City/[facility] Co de Phone Number [facility] [address] [place] [address] * (ABNORMAL) Cystatin C (08/20/2025 1:20 AM EDT) Only the most recent of3 resultswithin the time period is included. Cystatin C 1.73(H) 0.61 - 0.95 mg/L 08/20/2025 4:11 AM EDT [facility] Blood Venous blood specimen / Unknown Venipuncture / Unknown 08/20/2025 1:20 AM EDT 08/20/2025 1:31 AM EDT us Imelda Geiger MD LAB BLOOD ORDERABLES Final Resul t Performing Organization Address City/[facility]/ZIP Co de Phone Number [facility] [address] [place] [address] * MR Cervical Spine w and wo [...] LAB HEMATOLOGY METHOD 08/19/2025 2:[address] [facility] Platelet Estimate Platelet smear estimate consistent with automated count LAB HEMATOLOGY METHOD 08/19/2025 2:[address] [facility] Blood Venous blood specimen / Unknown Venipuncture / Unknown 08/19/2025 1:34 AM EDT 08/19/2025 1:40 AM EDT us Emma Lehman MD LAB BLOOD ORDERABLES Final Resu lt [facility] [address] [place] [address] * LACTIC ACID, VENOUS (08/19/2025 1:34 AM EDT) Lactate, Venous, Whole Blood 1.1 0.5 - 2.2 mmol/L LAB HEMATOLOGY METHOD 08/19/2025 1:[address] [facility] Blood Venous blood specimen / Unknown Venipuncture / Unknown 08/19/2025 1:34 AM EDT 08/19/2025 1:41 AM EDT Kati Garcia HANG GLIDING INSTRUCTOR LAB BLOOD ORDERABLES Final Result [facility] [address] [place] [address] * (ABNORMAL) Manual Differential (08/19/2025 1:34 AM [...] LAB HEMATOLOGY METHOD 08/19/2025 2:[address] [facility] Neutrophils % 73 % LAB [...] LAB HEMATOLOGY METHOD 08/19/2025 2:[address] [facility] Blood Venous blood specimen / Unknown Venipuncture / Unknown 08/19/2025 1:34 AM EDT 08/19/2025 1:40 AM EDT Emma Lehman MD LAB BLOOD ORDERABLES Final Resu lt Performing Organization Address City/[facility] Co de Phone Number [facility] [address] [place] [address] * (ABNORMAL) N-Terminal Probnp (08/18/2025 2:50 PM EDT) Only the most recent of3 resultswithin the time period is included. N-Terminal, PROBNP, Plasma 5,233(H) 0 - 449 pg/mL 08/18/2025 3:[address] [facility] Blood Venous blood specimen / Unknown Venipuncture / Unknown 08/18/2025 2:50 PM EDT 08/18/2025 3:04 PM EDT Kati Garcia APRN LAB BLOOD ORDERABLES Final Result Performing Organization Address City/[facility]/ZIP Co de Phone Number [facility] [address] [place] [address] * Blood Culture (Aerobic/Anaerobet Set) (08/18/2025 2:50 PM EDT) Only the most recent of6 resultswithin the time period is included. Culture No growth at day 5 08/23/2025 6:01 PM EDT [facility] Blood Structure of right forearm / Unknown Venipuncture / Unknown 08/18/2025 2:50 PM EDT 08/18/2025 3:10 PM EDT Narrative [facility] - 08/23/2025 6:01 PM EDT Low blood volume submitted, results may be compromised us Kati Garcia APRN LAB MICROBIOLOGY - GENERAL ORDERABLES Final Result [facility] [address] [place] [address] * [place] CRITICAL CARE, E/M 30-74 MINUTES (08/18/2025 8:40 [...] 2:23 AM EDT 08/18/2025 2:28 AM EDT [employer] Arte [employer] LAB BLOOD ORDERABLES Fin al Result Performing Organization Address [facility] de Phone Number [facility] [address] [place] [address] * Urine Robb Panel (08/18/2025 12:26 AM EDT) Only the most recent of3 resultswithin the time period is included. Pathologist [facility] Extra Reflex urine culture not indicated 08/18/2025 2:01 AM EDT [facility] Urine Urine specimen obtained by clean catch procedure / Unknown Non-blood Collection / Unknown 08/18/2025 12:26 AM EDT 08/18/2025 12:36 AM EDT [employer] LAB URINE ORDERABLES Fin al Result Performing Organization Address [facility] de Phone Number [facility] [address] [place] [address] * Urinalysis Microscopic Examination (08/18/2025 12:26 AM EDT) Only the most recent of3 resultswithin the time period is included. Urine Urine specimen obtained by clean catch procedure / Unknown Non-blood Collection / Unknown 08/18/2025 12:26 AM EDT 08/18/2025 12:36 AM EDT us Nathaniel B [employer]ING INSTRUCTOR LAB URINE ORDERABLES Fin al Result Performing Organization Address [facility] Co de Phone Number [facility] [address] [place] [address] * (ABNORMAL) Troponin T, High Sensitivity, 0 Hour Plasma, Reflex to 2 Hour (08/18/2025 12:26 AM EDT) Only the most recent of2 resultswithin the time period is included. Troponin T, High Sensitivity, 0 Hour 871(H) <14 ng/L 08/18/2025 1:23 AM EDT [facility] Blood Venous blood specimen / Unknown Venipuncture / Unknown 08/18/2025 12:26 AM EDT 08/18/2025 12:36 AM EDT us Nathaniel River HANG GLIDING INSTRUCTOR LAB BLOOD ORDERABLES Fin al Result Performing Organization Address [facility] Co de Phone Number [facility] [address] [place] [address] * (ABNORMAL) Procalcitonin (08/18/2025 12:26 AM EDT) [...] predict 28 day mortality risk. Please consult [email or web address] for more information. Test performed at [facility]. us Brian Foster MD LAB BLOOD ORDERABLES Final Res ult [facility] [address] [place] [address] * (ABNORMAL) Urinalysis with reflex microscopic (Culture NOT Included) (08/18/2025 12:26 AM EDT) Only the most recent of3 resultswithin the time period is included. Color, Urine Yellow LAB URINALYSIS - AUTOMATED METHOD 08/18/2025 12:[address] [facility] Clarity, Urine Cloudy LAB URINALYSIS - AUTOMATED METHOD 08/18/2025 12:[address] [facility] Spec [place], Urine 1.015 1.005 - 1.030 LAB URINALYSIS - AUTOMATED METHOD 08/18/2025 12:[address] [facility] pH, Urine 6.0 5.0 - 8.0 LAB URINALYSIS - AUTOMATED METHOD 08/18/2025 12:[address] [facility] Protein, Urine 100(A) Negative mg/dL LAB URINALYSIS - AUTOMATED METHOD 08/18/2025 12:[address] [facility] Glucose, Urine Negative Negative mg/dL LAB URINALYSIS - AUTOMATED METHOD 08/18/2025 12:[address] [facility] Ketones, Urine Negative Negative mg/dL LAB URINALYSIS - AUTOMATED METHOD 08/18/2025 12:[address] [facility] Blood, Urine Large(A) Negative LAB URINALYSIS - AUTOMATED METHOD 08/18/2025 12:[address] [facility] Bilirubin, Urine Negative Negative LAB URINALYSIS - AUTOMATED METHOD 08/18/2025 12:[address] [facility] Urobilinogen, Urine 0.2 0.2 to 1.0 mg/dL LAB URINALYSIS - AUTOMATED METHOD 08/18/2025 12:[address] [facility] Leukocytes, Urine Trace(A) Negative LAB URINALYSIS - AUTOMATED METHOD 08/18/2025 12:[address] [facility] Nitrite, Urine Negative Negative LAB URINALYSIS - AUTOMATED METHOD 08/18/2025 12:[address] [facility] RBC, Urine 31 - 50(A) 0 to 3 /HPF 08/18/2025 12:[address] [facility] Comment:This result was prev iously suppressed from the chart. WBC, Urine 0 - 5 0 to 5 /HPF 08/18/2025 12:[address] [facility] Comment:This result was prev iously suppressed from the chart. Squamous Epithelial Cells >20(A) 0 to 5 /HPF 08/18/2025 12:54 AM EDT [facility] Comment:This result was prev iously suppressed from the chart. Hyaline Casts 0 - 2 0 to 5 /LPF 08/18/2025 12:[address] [facility] Comment:This result was prev iously suppressed from the chart. Bacteria, Urine Present Negative 08/18/2025 12:[address] [facility] Comment:This result was prev iously suppressed from the chart. Renal Tubular Cells Present Absent 08/18/2025 12:[address] [facility] Comment:This result was prev iously suppressed from the chart. Granular Casts Present Absent 08/18/2025 12:[address] [facility] Comment:This result was prev iously suppressed from the chart. Amorphous Crystals Present Absent 08/18/2025 12:[address] [facility] Comment:This result was prev iously suppressed from the chart. Urine Urine specimen obtained by clean catch procedure / Unknown Non-blood Collection / Unknown 08/18/2025 12:26 AM EDT 08/18/2025 12:[address] [facility] - 08/18/2025 12:54 AM EDT Performed by manual method Nathaniel River APRN LAB URINE ORDERABLES Fin al Result [facility] [address] [place] [address] * Cortisol (08/18/2025 12:26 AM EDT) Cortisol 11.60 Before 10am: 3.7 - 19.4. After 5pm: 2.9 - 17.3 ug/dL 08/18/2025 4:54 AM EDT [facility] Comment:Testing performed on [employer], standardized against LONGTERM Reference Standard concentration values assigned by LC-MS/MS and verified by BCR 192 and BCR 193 certified reference materials. Blood Venous blood specimen / Unknown Venipuncture / Unknown 08/18/2025 12:26 AM EDT 08/18/2025 12:36 AM EDT us Nathaniel River APRN LAB REF LAB BLOOD AND FL UID ORD Final Result [facility] [address] [place] [address] * IA CRITICAL CARE, E/M 30-74 MINUTES (08/17/2025 10:29 PM EDT) Narrative Brian Foster MD - 08/17/2025 10:29 PM EDT Brian Foster MD 08/18/2025 1:18 AM Critical Care Performed by: Nathaniel River APRN Authorized by: Natahniel River APRN Critical care provider statement: Critical [...] Detected Not Detected 08/17/2025 9:18 PM EDT [facility] Swab Both anterior nares / Unknown Non-blood Collection / Unknown 08/17/2025 5:44 PM EDT 08/17/2025 5:50 PM EDT Narrative [facility] - 08/17/2025 9:18 PM EDT This [...] MICROBIOLOGY - GENERA L ORDERABLES Final Result [facility] [address] [place] [address] * (ABNORMAL) Blood gas panel, venous (08/17/2025 11:54 AM EDT) Only the most recent of4 resultswithin the time period is included. Pathologist [facility] pH, Venous 7.45(H) 7.32 - 7.43 LAB HEMATOLOGY METHOD 08/17/2025 11:[address] [facility] pCO2, Venous 43 37 - 52 mmHg LAB HEMATOLOGY METHOD 08/17/2025 11:[address] [facility] pO2, Venous 51(H) 25 - 40 mmHg LAB HEMATOLOGY METHOD 08/17/2025 11:[address] [facility] SO2, Measured, Venous 86(H) 65 - 80 % LAB HEMATOLOGY METHOD 08/17/2025 11:[address] [facility] Base Excess, Venous 5.4(H) -2.0 - 3.0 mmol/L LAB HEMATOLOGY METHOD 08/17/2025 11:[address] [facility] Bicarbonate, Calculated, Venous 30(H) 22 - 26 mmol/L LAB HEMATOLOGY METHOD 08/17/2025 11:[address] [facility] Hematocrit, Whole Blood 23.6(L) 34.0 - 45.0 % LAB HEMATOLOGY METHOD 08/17/2025 11:[address] [facility] Sodium, Whole Blood 132(L) 136 - 145 mmol/L LAB HEMATOLOGY METHOD 08/17/2025 11:[address] [facility] Potassium, Whole Blood 3.8 3.6 - 4.9 mmol/L LAB HEMATOLOGY METHOD 08/17/2025 11:[address] [facility] Chloride, Whole Blood 99 97 - 107 mmol/L LAB HEMATOLOGY METHOD 08/17/2025 11:[address] [facility] Glucose, Whole Blood 112(H) 74 - 99 mg/dL LAB HEMATOLOGY METHOD 08/17/2025 11:[address] [facility] Lactate, Venous, Whole Blood 1.7 0.5 - 2.2 mmol/L LAB HEMATOLOGY METHOD 08/17/2025 11:[address] [facility] Ionized Calcium, Whole Blood 4.7 4.6 - 5.1 mg/dL LAB HEMATOLOGY METHOD 08/17/2025 11:[address] [facility] Blood Venous blood specimen / Unknown 08/17/2025 11:51 AM EDT us Shantel Bashir MD LAB BLOOD ORDERABLES Rosa Maria driscoll Result [facility] [address] [place], [place] [id number] * (ABNORMAL) Bacterial ID Gram Positive (08/17/2025 11:47 AM EDT) [facility] Staphylococcus Result Detected( A) Not Detected 08/18/2025 7:27 AM EDT [facility] Comment:Assess if contaminan t or clinically relevant pathogen. Consider clinical stability and immune status of patient. Staphylococcus epidermidis Result Detected( A) Not Detected 08/18/2025 7:27 AM EDT [facility] Comment:Assess if contaminan t or clinically relevant pathogen. Consider clinical stability and immune status of patient. MECA Result Detected( A) Not Detected 08/18/2025 7:27 AM EDT [facility] Blood Structure of antecubital vein / Unknown Venipuncture / Unknown 08/17/2025 11:47 AM EDT 08/17/2025 12:10 PM EDT Narrative [facility] - 08/18/2025 7:27 AM EDT Analytes [...] MICROBIOLOGY - GENERA L ORDERABLES Final Result [facility] [address] [place] [address] * HMGCR AB IGG (SO) (08/17/2025 5:07 AM EDT) Only the most recent of2 resultswithin the time period is included. HMGCR ANTIBODY, IGG <3 0 - 19 Units 08/25/2025 6:48 PM EDT Jascha) Blood Venous blood specimen / Unknown Venipuncture / Unknown 08/17/2025 5:07 AM EDT 08/17/2025 5:20 AM EDT Narrative Jascha) - 08/25/2025 6:48 PM EDT INTERPRETIVE INFORMATION: HMGCR Antibody, IgG IgG antibodies to 0-fvftiuh-9-methylglutaryl-coenzyme A reductase (HMGCR) are mainly associated with necrotizing autoimmune myopathy (NAM) in a subset of statin-treated patients. Although infrequent, these antibodies may also be observed in statin-naive patients with NAM. Strong clinical correlation is recommended in the absence of muscle fiber necrosis, elevated serum creatine kinase, perimysial pathology, and/or statin exposure. This test was developed and its performance characteristics determined by [facility]. It has not been cleared or approved by the [place] Food and Drug Administration. This test was performed in a CLIA certified laboratory and is intended for clinical purposes. Performed By: [facility] [address] [place] [address] Lighting Technician: Esvin Pat MD, PhD CLIA Number: [id number] us Shantel Bashir MD LAB BLOOD ORDERABLES Rosa Maria driscoll Result [facility] ([place]) [address] [place] [address] * MR Tibia Fibula Left wo IV [...] multiecho sequences were obtained utilizing T1 and Q8usylzlfgj without the administration of intravenous contrast. The [...] foreleg and distal thigh is. There are B3tjabgiuqbjrw pockets of fluid superficially along the skin [...] multiecho sequences were obtained utilizing T1 and C9urngavgks without the administration of intravenous contrast. The [...] foreleg and distal thigh is. There are Z7blrorjhhrcep pockets of fluid superficially along the skin [...] MARCE ISCV Ao V2 Vmax 344.2 cm/s AMRCE ISCV Ao max PG 47 mmHg MARCE [...] is no recent study available for direct tyxr-ai-lypy comparison. Left Ventricle The left ventricle is [...] is no recent study available for direct ywas-iw-dnsw comparison. us Shantel Bashir MD CV ECHO [...] abdomen and pelvis dated 08/09/2025 FINDINGS: Limited hinym-jh-sirf abdominal radiograph for the purpose of locating tube position. The tip of the feeding tube is in the proximal duodenum. An NG tube is not visualized. Procedure Note Crow Redding MD - 08/15/2025 CLINICAL INDICATION: Ensure NG in correct location TECHNIQUE: Supine radiograph of the abdomen. COMPARISON: CTA abdomen and pelvis dated 08/09/2025 FINDINGS: Limited eazhc-lf-mcvp abdominal radiograph for the purpose of locatingtube [...] Green Top (08/15/2025 3:03 AM EDT) Pathologist [facility] Extra Hold for add-ons 08/15/2025 8:[address] [facility] Comment:Auto resulted. Blood Venous blood specimen / Unknown 08/15/2025 3:03 AM EDT 08/15/2025 5:11 AM EDT Shantel Bashir MD LAB BLOOD ORDERABLES Rosa Maria l Result [facility] [address] [place] [address] * Human Immunodeficiency Virus (HIV-1) Quantitative PCR (08/12/2025 5:12 PM EDT) Pathologist [facility] Human Immunodeficiency Virus (HIV-1) Quant Interpretation Not Detected Not Detected 08/15/2025 9:44 PM EDT [facility] Blood Venous blood specimen / Unknown Venipuncture / Unknown 08/12/2025 5:12 PM EDT 08/12/2025 5:17 PM EDT Narrative [facility] - 08/15/2025 9:44 PM EDT The [...] LAB BLOOD ORDERABLES Rosa Maria driscoll Result [facility] [address] [place] [address] * (ABNORMAL) [facility] B VIRUS AB (SO) (08/12/2025 1:12 PM EDT) [facility] TYPE B2 1:10 <1:10 08/21/2025 3:36 PM EDT [facility] ([employer]) [facility] TYPE B3 1:160(H) <1:10 08/21/2025 3:36 PM EDT [facility] ([employer]) [facility] TYPE B1 <1:10 <1:10 08/21/2025 3:36 PM EDT [facility] ([employer]) [facility] TYPE B4 1:20 <1:10 08/21/2025 3:36 PM EDT [facility] ([employer]) [facility] TYPE B5 <1:10 <1:10 08/21/2025 3:36 PM EDT [facility] ([employer]) [facility] TYPE B6 <1:10 <1:10 08/21/2025 3:36 PM EDT [facility] ([employer]) Venous blood specimen / Unknown 08/12/2025 1:12 PM EDT 08/12/2025 1:13 PM EDT Narrative [facility] ([employer]) - 08/21/2025 3:36 PM EDT INTERPRETIVE INFORMATION: Coxsackie B Virus Single positive antibody titers of greater than or equal to 1:80 may indicate past or current infection. Sero- conversion or an increase in titers between acute and convalescent sera of at least fourfold is considered strong evidence of current or recent infection. Performed By: [facility] [address] [place] [address] Lighting Technician: Esvin Pat MD, PhD CLIA Number: [id number] us Shantel Bashir MD LAB BLOOD ORDERABLES Rosa Maria yamila Result [facility] [address] [place] [address] * Coxsackie A Virus Antibody (08/12/2025 12:07 PM EDT) [facility] A2 ANTIBODY <1:8 08/23/2025 4:50 PM EDT [facility] ([facility]) [facility] A4 ANTIBODY <1:8 08/23/2025 4:50 PM EDT [facility] ([facility]) [facility] A7 ANTIBODY <1:8 08/23/2025 4:50 PM EDT [facility] ([facility]) [facility] A9 ANTIBODY <1:8 08/23/2025 4:50 PM EDT [facility] ([facility]) [facility] A10 ANTIBODY <1:8 08/23/2025 4:50 PM EDT [facility] ([facility]) [facility] A16 ANTIBODY <1:8 08/23/2025 4:50 PM EDT [facility] ([facility]) Blood Venous blood specimen / Unknown Venipuncture / Unknown 08/12/2025 12:07 PM EDT 08/12/2025 1:13 PM EDT Narrative [facility] ([facility]) - 08/23/2025 4:50 PM EDT [...] analytical performance characteristics have been determined by [facility]. It has not been cleared or approved by FDA. This assay has been validated pursuant to the CLIA regulations and is used for clinical purposes. Performed at [facility], [address] [place] [address], Kaylah Álvarez MD, Ph.D, Director, [facility] [id number] Result [facility] Shantel Bashir MD LAB BLOOD ORDERABLES Rosa Maria l Result [facility] ([facility]) [address] [place] [id number] * Urea nitrogen, urine (08/12/2025 9:15 AM EDT) Urea Nitrogen, Urine 794 mg/dL 08/12/2025 12:37 PM EDT [facility] Urine Urine specimen obtained by clean catch procedure / Unknown Non-blood Collection / Unknown 08/12/2025 9:15 AM EDT 08/12/2025 9:21 AM EDT Result [facility] Shantel Bashir MD LAB URINE ORDERABLES Rosa Maria l Result Performing Organization Address City/[facility]/ZIP Co de Phone Number [facility] [address] [place] [address] * Osmolality, urine (08/12/2025 9:15 AM EDT) Osmolality, Urine 488 50 - 1,200 mOsm/kg 08/12/2025 12:15 PM EDT [facility] Urine Urine specimen obtained by clean catch procedure / Unknown Non-blood Collection / Unknown 08/12/2025 9:15 AM EDT 08/12/2025 9:21 AM EDT Result [facility] Shantel Bashir MD LAB URINE ORDERABLES Rosa Maria l Result [facility] [address] [place] [address] * Creatinine, urine, random (08/12/2025 9:15 AM EDT) Creatinine, Urine 50 mg/dL 08/12/2025 9:[address] [facility] Urine Urine specimen obtained by clean catch procedure / Unknown Non-blood Collection / Unknown 08/12/2025 9:15 AM EDT 08/12/2025 9:21 AM EDT Shantel Bashir MD LAB URINE ORDERABLES Rosa Maria l Result Performing Organization Address City/[facility] Co de Phone Number [facility] [address] [place] [address] * (ABNORMAL) Osmolality (08/12/2025 5:22 AM EDT) Osmolality, Serum 270(L) 275 - 295 mOsm/Kg 08/12/2025 11:53 AM EDT [facility] Blood Venous blood specimen / Unknown Venipuncture / Unknown 08/12/2025 5:22 AM EDT 08/12/2025 5:35 AM EDT Shantel Bashir MD LAB BLOOD ORDERABLES Rosa Maria l Result Performing Organization Address [facility] de Phone Number [facility] [address] [place] [address] * (ABNORMAL) BETA HYDROXYBUTYRIC ACID (08/10/2025 7:58 PM EDT) Beta-Hydroxybu tyric Acid, Plasma 1.61(H) <=0.27 mmol/L 08/10/2025 8:[address] [facility] Blood Venous blood specimen / Unknown Venipuncture / Unknown 08/10/2025 7:58 PM EDT 08/10/2025 8:15 PM EDT Emma Lehman MD LAB BLOOD ORDERABLES Final Resu lt Performing Organization Address [facility] Co de Phone Number [facility] [address] [place] [address] * XR Foot Right 3+ Views (08/09/2025 [...] on 08/09/2025 4:58 PM Emma Lehman MD [facility] US PROCEDURES Final Result * (ABNORMAL) Peripheral Blood Smear (08/09/2025 2:42 PM EDT) WBC Count 10.21 3.70 - 10.30 10*3/uL LAB HEMATOLOGY METHOD 08/09/2025 3:[address] [facility] RBC Count 3.31(L) 3.90 - 5.20 10*6/uL LAB HEMATOLOGY METHOD 08/09/2025 3:[address] [facility] HGB 10.0(L) 11.2 - 15.7 g/dL LAB HEMATOLOGY METHOD 08/09/2025 3:[address] [facility] HCT 28.5(L) 34.0 - 45.0 % LAB HEMATOLOGY METHOD 08/09/2025 3:[address] [facility] Platelet Count 397(H) 155 - 369 10*3/uL LAB HEMATOLOGY METHOD 08/09/2025 3:[address] [facility] MCV 86 79 - 98 fL LAB HEMATOLOGY METHOD 08/09/2025 3:[address] [facility] MCH 30.2 26.0 - 32.0 pg LAB HEMATOLOGY METHOD 08/09/2025 3:[address] [facility] MCHC 35.1 30.7 - 35.5 g/dL LAB HEMATOLOGY METHOD 08/09/2025 3:[address] [facility] RDW 12.5 11.5 - 14.5 % LAB HEMATOLOGY METHOD 08/09/2025 3:[address] [facility] MPV 9.8 8.8 - 12.5 fL LAB HEMATOLOGY METHOD 08/09/2025 3:[address] [facility] nRBC 0.3(H) <=0.0 per 100 WBCs LAB HEMATOLOGY METHOD 08/09/2025 3:[address] [facility] Differential Type Automated LAB HEMATOLOGY METHOD 08/09/2025 3:[address] [facility] Neutrophils % 75 % LAB HEMATOLOGY METHOD 08/09/2025 3:[address] [facility] Lymphocytes % 10 % LAB HEMATOLOGY METHOD 08/09/2025 3:[address] [facility] Monocytes % 8 % LAB HEMATOLOGY METHOD 08/09/2025 3:[address] [facility] Eosinophils % 4 % LAB HEMATOLOGY METHOD 08/09/2025 3:[address] [facility] Basophils % 0 % LAB HEMATOLOGY METHOD 08/09/2025 3:[address] [facility] Immature Granulocytes % 3 % LAB HEMATOLOGY METHOD 08/09/2025 3:[address] [facility] Neutrophils Absolute 7.56(H) 1.60 - 6.10 10*3/uL LAB HEMATOLOGY METHOD 08/09/2025 3:[address] [facility] Lymphocytes Absolute 1.02(L) 1.20 - 3.90 10*3/uL LAB HEMATOLOGY METHOD 08/09/2025 3:[address] [facility] Monocytes Absolute 0.83 0.30 - 0.90 10*3/uL LAB HEMATOLOGY METHOD 08/09/2025 3:[address] [facility] Eosinophils Absolute 0.44 0.00 - 0.50 10*3/uL LAB HEMATOLOGY METHOD 08/09/2025 3:46 PM EDT [facility] Basophils Absolute 0.03 0.00 - 0.10 10*3/uL LAB HEMATOLOGY METHOD 08/09/2025 3:[address] [facility] Immature Granulocytes Absolute 0.33(H) 0.00 - 0.06 10*3/uL LAB HEMATOLOGY METHOD 08/09/2025 3:[address] [facility] Blood Venous blood specimen / Unknown Venipuncture / Unknown 08/09/2025 2:42 PM EDT 08/09/2025 2:49 PM EDT Narrative [facility] - 08/09/2025 3:46 PM EDT Therapeutic decision making should be based on absolute values, rather than percentages. Emma Lehman MD LAB PATHOLOGY ORDERABLES Final Result Performing Organization Address [facility] de Phone Number [facility] [address] [place] [address] * Peripheral blood smear, pathologist interpretation (08/09/2025 2:42 PM EDT) Clinical Diagnosis, Peripheral Smear anemia LAB HEMATOLOGY METHOD 08/10/2025 3:[address] [facility] Interpretation , Peripheral Smear Anemia with polychromasia and rare nucleated red blood cells Neutrophilia with increased immature granulocytes (left shift) Platelets with unremarkable morphology 08/10/2025 3:[address] [facility] Pathologist Signature, Peripheral Smear 08/10/2025 3:[address] [facility] Comment:Reviewed by: Marilynn Peralta MD LAB CP ASR DISCLAIMER No 08/10/2025 3:[address] [facility] Blood Venous blood specimen / Unknown Venipuncture / Unknown 08/09/2025 2:42 PM EDT 08/09/2025 2:49 PM EDT Emma Lehman MD LAB PATHOLOGY ORDERABLES Final Result Performing Organization Address City/[facility] Co de Phone Number [facility] [address] [place] [address] * Streptococcus pneumoniae and Legionella Urinary Antigen (08/09/2025 11:58 AM EDT) Legionella pneumophila serogroup 1 Antigen Result (Urine) Negative Negative 08/10/2025 6:50 AM EDT [facility] Streptococcus pneumoniae Antigen Result (Urine) Negative Negative 08/10/2025 6:50 AM EDT [facility] Urine Urine specimen obtained by clean catch procedure / Unknown Non-blood Collection / Unknown 08/09/2025 11:58 AM EDT 08/09/2025 12:11 PM EDT Emma Lehman MD LAB MICROBIOLOGY - GENERAL ORDE RABLES Final Result [facility] [address] [place] [address] * PCCA/DARNELL BY IFA, SERUM (08/09/2025 11:46 AM EDT) Pathologist [facility] Purkinje Cell/Neuronal Nuclear IgG Screen None Detected None Detected 08/13/2025 10:38 PM EDT [facility] ([facility]) Blood Venous blood specimen / Unknown Venipuncture / Unknown 08/09/2025 11:46 AM EDT 08/09/2025 12:13 PM EDT Narrative [facility] ([facility]) - 08/13/2025 10:38 PM EDT DARNELL-1, DARNELL-2, PCCA-1 or PCCA-Tr(DNER) antibodies not detected. No further testing will be performed. INTERPRETIVE INFORMATION: Purkinje Cell/Neuronal Nuclear IgG Scrn This test was developed and its performance characteristics determined by [facility]. It has not been cleared or approved by the [place] Food and Drug Administration. This test was performed in a CLIA certified laboratory and is intended for clinical purposes. Performed By: [facility] [address] [place] [address] Lighting Technician: Esvin Pat MD, PhD CLIA Number: [id number] us Emma Lehman MD LAB BLOOD ORDERABLES Final Resu lt Performing Organization Address City/[facility]/ZIP Co de Phone Number [facility] ([facility]) [address] [place] [address] * Tissue Transglutaminase (tTG) Ab, IgA (SO) (08/09/2025 11:46 AM EDT) Tissue Transglutaminase (tTG) Ab, IgA <1.02 0.00 - 4.99 FLU 08/11/2025 1:57 AM EDT [facility]) Blood Venous blood specimen / Unknown Venipuncture / Unknown 08/09/2025 11:46 AM EDT 08/09/2025 12:13 PM EDT Narrative [facility]) - 08/11/2025 1:57 AM EDT [...] indicate a response to therapy. Performed By: [facility] [address] [place] [address] Lighting Technician: Esvin Pat MD, PhD CLIA Number: [id number] us Emma Lehman MD LAB REF LAB BLOOD AND FLUID ORD Final Result [facility]) [address] [place] [id number] * Wilbert Ambrosio Virus (EBV) Quantitative PCR (08/09/2025 11:46 AM EDT) Pathologist [facility] Wilbert Ambrosio Virus, Blood, Quant DNA Interpretation Not Detected Not Detected 08/11/2025 12:06 PM EDT [facility] Blood Venous blood specimen / Unknown Venipuncture / Unknown 08/09/2025 11:46 AM EDT 08/09/2025 12:13 PM EDT Narrative [facility] - 08/11/2025 12:06 PM EDT EBV [...] developed and it's performance characteristics determined by [facility] as appropriate for clinical purposes. [...] developed and it's performance characteristics determined by [facility] as appropriate for clinical purposes. This assay has not been cleared or approved by the FDA, but is performed in a CLIA regulated laboratory that is qualified to perform high-complexity testing. us Emma Lehman MD LAB BLOOD ORDERABLES Final Resu lt [facility] [address] [place] [phone] * (ABNORMAL) NEURONAL NUCLEAR ANTIBODIES (HU, RI, YO, TR/DNER) IGG BY IMMUNOBLOT, SERUM (SO) (08/09/2025 11:46 AM EDT) Purkinje Cell Ab (Yo) IgG, IB, Ser High Positive(A) Negative 08/12/2025 1:50 PM EDT [facility] ([employer]) Purkinje Cell Ab (TR/DNER) IgG, IB, Ser Negative Negative 08/12/2025 1:50 PM EDT [facility] ([employer]) Neuronal Nuclear Ab (Ri) IgG, IB, Serum Negative Negative 08/12/2025 1:50 PM EDT [facility] ([employer]) Neuronal Nuclear Ab (Hu) IgG, IB, Serum Negative Negative 08/12/2025 1:50 PM EDT [facility] ([facility]) Blood Venous blood specimen / Unknown Venipuncture / Unknown 08/09/2025 11:46 AM EDT 08/09/2025 12:13 PM EDT Narrative [facility]) - 08/12/2025 1:50 PM EDT INTERPRETIVE [...] developed and its performance characteristics determined by [facility]. It has not been cleared or approved by the US Food and Drug Administration. This test was performed in a CLIA certified laboratory and is intended for clinical purposes. INTERPRETIVE INFORMATION: Neuronal Nuclear Ab (Ri) IgG, IB, Serum This test was developed and its performance characteristics determined by [facility]. It has not been cleared or approved by the US Food and Drug Administration. This test was performed in a CLIA certified laboratory and is intended for clinical purposes. Yo antibody detected, therefore PCCA/DARNELL by IFA with reflex to titer to be performed. INTERPRETIVE INFORMATION: Purkinje Cell Ab (Yo) IgG, IB, Ser This test was developed and its performance characteristics determined by [facility]. It has not been cleared or approved by the US Food and Drug Administration. This test was performed in a CLIA certified laboratory and is intended for clinical purposes. INTERPRETIVE INFORMATION: Purkinje Cell Ab (TR/DNER) IgG, IB, Ser This test was developed and its performance characteristics determined by [facility]. It has not been cleared or approved by the US Food and Drug Administration. This test was performed in a CLIA certified laboratory and is intended for clinical purposes. Performed By: [facility] [address] [place] [address] Lighting Technician: sEvin Pat MD, PhD CLIA Number: [id number] Emma Lehman MD LAB BLOOD ORDERABLES Final Resu lt Performing Organization Address [facility]/ZIP Co de Phone Number [facility] ([facility]) [address] [place] [address] * Cytomegalovirus (CMV) Quantitative PCR (08/09/2025 11:46 AM EDT) [facility] Cytomegalovirus (CMV) Quantitative Interpretation Not Detected Not Detected 08/12/2025 7:44 AM EDT [facility] Blood Venous blood specimen / Unknown Venipuncture / Unknown 08/09/2025 11:46 AM EDT 08/09/2025 12:12 PM EDT Narrative [facility] - 08/12/2025 7:44 AM EDT The [...] Final Resu lt Performing Organization Address City/[facility]/ZIP Co de Phone Number [facility] [address] [place] [address] * IG Profile (08/09/2025 11:46 AM EDT) Pathologist [facility] IGA 87 75 - 400 mg/dL 08/09/2025 1:58 PM EDT [facility] IGG 910 720 - 1,589 mg/dL 08/09/2025 1:58 PM EDT [facility] IGM 46 35 - 225 mg/dL 08/09/2025 1:58 PM EDT [facility] Blood Venous blood specimen / Unknown Venipuncture / Unknown 08/09/2025 11:46 AM EDT 08/09/2025 12:13 PM EDT Emma Lehman MD LAB BLOOD ORDERABLES Final Resu lt [facility] [address] [place] [address] * HIV 1 & 2 Antibody/Antigen Screen (08/09/2025 11:46 AM EDT) Pathologist [facility] HIV 1 & 2 Antibody/Antigen Screen Non Reactive Non Reactive 08/09/2025 12:[address] [facility] Comment:Screening for HIV 1 & 2 antibodies, and P24 antigen is NONREACTIVE. No confirmatory testing is required. Blood Venous blood specimen / Unknown Venipuncture / Unknown 08/09/2025 11:46 AM EDT 08/09/2025 12:13 PM EDT Emma Lehman MD LAB BLOOD ORDERABLES Final Resu lt [facility] [address] [place] [address] * (ABNORMAL) Xbiba-2-Nxkvbeepmwn Enzyme Concentration (SO) (08/09/2025 11:46 AM EDT) ALPHA 1 ANTITRYPSIN 327(H) 90 - 200 mg/dL 08/10/2025 9:21 PM EDT [facility] ([facility]) Blood Venous blood specimen / Unknown Venipuncture / Unknown 08/09/2025 11:46 AM EDT 08/09/2025 12:13 PM EDT Narrative [facility]) - 08/10/2025 9:21 PM EDT To convert to umol/L, multiply mg/dL by 0.185 Performed By: [facility] [address] [place] [address] Lighting Technician: Esvin Pat MD, PhD CLIA Number: [id number] us Emma Lehman MD LAB BLOOD ORDERABLES Final Resu lt [facility] ([facility]) [address] [place] [address] * Anti-scleroderma antibody (08/09/2025 11:46 AM EDT) Pathologist [facility] SCLERODERMA (SCL-70) (PAPA) ANTIBODY, IGG 0 0 - 40 AU/mL 08/11/2025 8:57 PM EDT [facility] ([employer]) Blood Venous blood specimen / Unknown Venipuncture / Unknown 08/09/2025 11:46 AM EDT 08/09/2025 12:13 PM EDT Narrative [facility] ([employer]) - 08/11/2025 8:57 PM EDT INTERPRETIVE INFORMATION: [...] testing for centromere, RNA polymerase III and U3-DIGITAL MARKETING MANAGER, PM/Scl, or Th/To antibodies. Performed By: [facility] [address] [place] [address] Lighting Technician: Esvin Pat MD, PhD CLIA Number: [id number] Emma Lehman MD LAB BLOOD ORDERABLES Final Resu lt [facility] [employer]) [address] [place] [address] * Ceruloplasmin (08/09/2025 11:46 AM EDT) Pathologist [facility] Ceruloplasmin 36 20 - 60 mg/dL 08/12/2025 1:04 AM EDT [facility] Blood Venous blood specimen / Unknown Venipuncture / Unknown 08/09/2025 11:46 AM EDT 08/09/2025 12:13 PM EDT Emma Lehman MD LAB BLOOD ORDERABLES Final Resu lt [facility] [address] [place] [address] * Double-Stranded DNA (dsDNA) Antibody, IgG by IFA (08/09/2025 11:46 AM EDT) Double-Strande d DNA (dsDNA) Ab IgG IFA <1:10 <1:10 08/12/2025 2:40 PM EDT [facility]) Blood Venous blood specimen / Unknown Venipuncture / Unknown 08/09/2025 11:46 AM EDT 08/09/2025 12:13 PM EDT Narrative [facility]) - 08/12/2025 2:40 PM EDT INTERPRETIVE INFORMATION: [...] recommendations for testing may be found at [email or web address]. Performed By: [facility] [address] [place] [address] Lighting Technician: Esvin Pat MD, PhD CLIA Number: [id number] Emma Lehman MD LAB BLOOD ORDERABLES Final Resu lt Performing Organization Address [facility] de Phone Number [facility] ([facility]) [address] [place] [address] * (ABNORMAL) Aldolase (08/09/2025 11:46 AM EDT) ALDOLASE 219.0(H) 1.2 - 7.6 U/L 08/10/2025 9:28 PM EDT [facility] ([facility]) Blood Venous blood specimen / Unknown Venipuncture / Unknown 08/09/2025 11:46 AM EDT 08/09/2025 12:13 PM EDT Narrative [facility] ([facility]) - 08/10/2025 9:28 PM EDT REFERENCE INTERVAL: Aldolase Access complete set of age- and/or gender-specific reference intervals for this test in the [facility] ([employer]). Performed By: [facility] [address] [place] [address] Lighting Technician: Esvin Pat MD, PhD CLIA Number: [id number] Emma Lehman MD LAB BLOOD ORDERABLES Final Resu lt Performing Organization Address [facility] Co de Phone Number [facility] [employer]) [address] [place] [address] * Rheumatoid factor, Plasma (08/09/2025 11:46 AM EDT) Rheumatoid Factor, Plasma <10 <14 IU/mL 08/09/2025 1:58 PM EDT [facility] Blood Venous blood specimen / Unknown Venipuncture / Unknown 08/09/2025 11:46 AM EDT 08/09/2025 12:13 PM EDT us Emma Lehman MD LAB BLOOD ORDERABLES Final Resu lt [facility] [address] [place] [address] * Antinuclear Antibody (BINH) with HEp-2 Substrate, IgG by IFA (08/09/2025 11:46 AM EDT) BINH INTERPRETIVE COMMENT See Note 08/13/2025 3:07 PM EDT [facility] ([employer]) Anti Nuc Ab Screen <1:80 <1:80 08/13/2025 3:07 PM EDT [facility] ([employer]) Blood Venous blood specimen / Unknown Venipuncture / Unknown 08/09/2025 11:46 AM EDT 08/09/2025 12:13 PM EDT Narrative [facility] ([employer]) - 08/13/2025 3:07 PM EDT Clinical Interpretation: [...] not necessarily rule out SARD. Performed By: [facility] [address] [place] [address] Lighting Technician: Esvin Pat MD, PhD CLIA Number: [id number] us Emma Lehman MD LAB BLOOD ORDERABLES Final Resu lt [facility] ([facility]) [address] [place] [address] * SARS CoV-2/COVID-19 by PCR (08/09/2025 11:45 AM EDT) SARS CoV-2/COVID-1 9 RNA PCR Result Not Detected Not Detected 08/10/2025 3:03 PM EDT [facility] Swab Nasopharyngeal structure / Unknown Non-blood Collection / Unknown 08/09/2025 11:45 AM EDT 08/09/2025 12:11 PM EDT Narrative [facility] - 08/10/2025 3:03 PM EDT This [...] testing. This test was performed using the [employer] SARS CoV-2 assay, a PCR-based method. Negative results should be considered presumptive and do not preclude current or future infection obtained through community transmission or other exposures. Negative results must be considered in the context of an individual's recent exposures, history, presence of clinical signs and symptoms consistent with COVID-19. Emma Lehman MD LAB MICROBIOLOGY - [facility] Final Result [facility] [address] [place] [address] * Nasopharyngeal Respiratory Panel (08/09/2025 11:45 AM EDT) Nasopharyngeal Respiratory PCR Interpretation Not Detected for all analytes Not Detected for all analytes 08/09/2025 5:51 PM EDT [facility] Swab Nasopharyngeal structure / Unknown Non-blood Collection / Unknown 08/09/2025 11:45 AM EDT 08/09/2025 12:11 PM EDT Narrative [facility] - 08/09/2025 5:51 PM EDT This [...] Respiratory PCR Panel is performed using the [employer] ePlex instrument. This test is FDA approved for use with Nasopharyngeal swabs only. This test is used for clinical purposes. It should not be regarded as investigational or for research. The [facility] Clinical Microbiology Laboratory is certified under the Clinical Laboratory Improvement Amendments of 1988 (CLIA-88) as qualified to perform high complexity clinical laboratory testing. Emma Lehman MD LAB MICROBIOLOGY - [facility] Final Result [facility] [address] [place] [address] * TSH Reflex FT4 (08/09/2025 5:24 AM EDT) Pathologist [facility] Thyroid Stimulating Hormone, Plasma 0.55 0.40 - 4.20 uIU/mL 08/09/2025 10:[address] [facility] Blood Venous blood specimen / Unknown Venipuncture / Unknown 08/09/2025 5:24 AM EDT 08/09/2025 5:35 AM EDT Narrative [facility] - 08/09/2025 10:17 AM EDT Trimester Specific Ranges TSH ( IU/mL) 1st Trimester 0.1 - 3.0 2nd Trimester 0.19 - 4.06 3rd Trimester 0.3 - 3.7 us Emma Lehman MD LAB BLOOD ORDERABLES Final Resu lt [facility] [address] [place] [address] * (ABNORMAL) Basic Metabolic Panel, Plasma (08/09/2025 5:24 AM EDT) Only the most recent of4 resultswithin the time period is included. Pathologist [facility] Glucose, Plasma 121(H) 74 - 99 mg/dL 08/09/2025 5:[address] [facility] BUN, Plasma 10 7 - 21 mg/dL 08/09/2025 5:[address] [facility] Creatinine, Plasma 0.35(L) 0.60 - 1.10 mg/dL 08/09/2025 5:[address] [facility] BUN/Creatinine Ratio 29 08/09/2025 5:[address] [facility] Sodium, Plasma 125(L) 136 - 145 mmol/L 08/09/2025 5:[address] [facility] Potassium, Plasma 4.5 3.6 - 4.9 mmol/L 08/09/2025 5:[address] [facility] Chloride, Plasma 97 97 - 107 mmol/L 08/09/2025 5:[address] [facility] CO2, Plasma 19(L) 22 - 29 mmol/L 08/09/2025 5:[address] [facility] Anion Gap 9 6 - [...] BLOOD ORDERABLES Final Resu lt [facility] [address] [place] [address] * (ABNORMAL) Comprehensive Urine Drug Screening, Qualitative Assay, >= 27 Drug Classes (53:58 AM EDT) Only the most recent of2 resultswithin the time period is included. Acetaminophen Negative Negative 08/11/2025 12:06 AM EDT [facility] Alprazolam Negative Negative 08/11/2025 12:06 AM EDT [facility] Amantadine Negative Negative 08/11/2025 12:06 AM EDT [facility] Amitriptyline Negative Negative 08/11/2025 12:06 AM EDT [facility] Amphetamine Negative Negative 08/11/2025 12:06 AM EDT [facility] Atenolol Negative Negative 08/11/2025 12:06 AM EDT [facility] Benzoylecgonine Negative Negative 12:06 AM EDT [facility] Bisoprolol Negative Negative 08/11/2025 12:06 AM EDT [facility] Bupropion Negative Negative 08/11/2025 12:06 AM EDT [facility] Butalbital Negative Negative 08/11/2025 12:06 AM EDT [facility] Carbamazepine Negative Negative 08/11/2025 12:06 AM EDT [facility] Carisoprodol Negative Negative 08/11/2025 12:06 AM EDT [facility] Chlorpheniramine Negative Negative 08/11/20 12:06 AM EDT [facility] Citalopram Negative Negative 08/11/2025 12:06 AM EDT [facility] Clindamycin Negative Negative 08/11/2025 12:06 AM EDT [facility] Clonidine Negative Negative 08/11/2025 12:06 AM EDT [facility] Clopidogrel / Ticlopidine Negative Negative 08/11/2025 12:06 AM EDT [facility] Cocaethylene Negative Negative 08/11/2025 12:06 AM EDT [facility] Cocaine Negative Negative 08/11/2025 12:06 AM EDT [facility] Codeine Negative Negative 08/11/2025 12:06 AM EDT [facility] Cyclobenzaprine Negative Negative 12:06 AM EDT [facility] Desvenlafaxine Negative Negative 08/11/2025 12:06 AM EDT [facility] Dextromethorphan Negative Negative 08/11/20 12:06 AM EDT [facility] Diazepam Negative Negative 08/11/2025 12:06 AM EDT [facility] Diltiazem Negative Negative 08/11/2025 12:06 AM EDT [facility] Diphenhydramine Negative Negative 12:06 AM EDT [facility] Doxepine Negative Negative 08/11/2025 12:06 AM EDT [facility] Doxylamine Negative Negative 08/11/2025 12:06 AM EDT [facility] EDDP-Methadone metabolite Negative Negative 08/11/2025 12:06 AM EDT [facility] Fentanyl Negative Negative 08/11/2025 12:06 AM EDT [facility] Fluconazole Negative Negative 08/11/2025 12:06 AM EDT [facility] Fluoxetine Negative Negative 08/11/2025 12:06 AM EDT [facility] Guaifenesin Negative Negative 08/11/2025 12:06 AM EDT [facility] Haloperidol Negative Negative 08/11/2025 12:06 AM EDT [facility] Heroin/6-BRENDAN Negative Negative 08/11/2025 12:06 AM EDT [facility] Hydrocodone Negative Negative 08/11/2025 12:06 AM EDT [facility] Hydroxyzine / Cetirizine metabolite Negative Negative 08/11/2025 12:06 AM EDT [facility] Ibuprofen Negative Negative 08/11/2025 12:06 AM EDT [facility] Imipramine Negative Negative 08/11/2025 12:06 AM EDT [facility] Ketamine Negative Negative 08/11/2025 12:06 AM EDT [facility] Labetolol Negative Negative 08/11/2025 12:06 AM EDT [facility] Lamotrigine Negative Negative 08/11/2025 12:06 AM EDT [facility] Levetiracetam Positive(A) Negative 08/11/2025 12:06 AM EDT [facility] Lidocaine Negative Negative 08/11/2025 12:06 AM EDT [facility] MDA Negative Negative 08/11/2025 12:06 AM EDT [facility] MDMA Negative Negative 08/11/2025 12:06 AM EDT [facility] Memantine Negative Negative 08/11/2025 12:06 AM EDT [facility] Meperidine Negative Negative 08/11/2025 12:06 AM EDT [facility] Meprobamate Negative Negative 08/11/2025 12:06 AM EDT [facility] Metaxalone Negative Negative 08/11/2025 12:06 AM EDT [facility] Methamphetamine Negative Negative 12:06 AM EDT [facility] Methocarbamol Negative Negative 08/11/2025 12:06 AM EDT [facility] Methylecgonine Negative Negative 08/11/2025 12:06 AM EDT [facility] Metoclopramide Negative Negative 08/11/2025 12:06 AM EDT [facility] Metoprolol Negative Negative 08/11/2025 12:06 AM EDT [facility] Metronidazole Negative Negative 08/11/2025 12:06 AM EDT [facility] Midazolam Negative Negative 08/11/2025 12:06 AM EDT [facility] Midazolam Metabolite Negative Negative 08/11/2025 12:06 AM EDT [facility] Mirtazapine Negative Negative 08/11/2025 12:06 AM EDT [facility] Misc Test Result Negative Negative 08/11/20 12:06 AM EDT [facility] Naproxen Negative Negative 08/11/2025 12:06 AM EDT [facility] Nefazodone Negative Negative 08/11/2025 12:06 AM EDT [facility] Norfentanyl Negative Negative 08/11/2025 12:06 AM EDT [facility] Nortriptyline Negative Negative 08/11/2025 12:06 AM EDT [facility] Ordanstron Negative Negative 08/11/2025 12:06 AM EDT [facility] Oxcarbazepine Negative Negative 08/11/2025 12:06 AM EDT [facility] Oxycodone Positive(A) Negative 08/11/2025 12:06 AM EDT [facility] Paroxethine Negative Negative 08/11/2025 12:06 AM EDT [facility] Phenobarbital Negative Negative 08/11/2025 12:06 AM EDT [facility] Phentermine Negative Negative 08/11/2025 12:06 AM EDT [facility] Phenytoin Negative Negative 08/11/2025 12:06 AM EDT [facility] Primidone Negative Negative 08/11/2025 12:06 AM EDT [facility] Promethazine Negative Negative 08/11/2025 12:06 AM EDT [facility] Propofol Negative Negative 08/11/2025 12:06 AM EDT [facility] Propranolol Negative Negative 08/11/2025 12:06 AM EDT [facility] Quetiapine Negative Negative 08/11/2025 12:06 AM EDT [facility] Quinine Negative Negative 08/11/2025 12:06 AM EDT [facility] Rantidine Negative Negative 08/11/2025 12:06 AM EDT [facility] Sertraline Negative Negative 08/11/2025 12:06 AM EDT [facility] Spironolactone Negative Negative 08/11/2025 12:06 AM EDT [facility] Tizanidine Negative Negative 08/11/2025 12:06 AM EDT [facility] Topiramate Negative Negative 08/11/2025 12:06 AM EDT [facility] Tramadol Negative Negative 08/11/2025 12:06 AM EDT [facility] Trazadone/ Trazadone metabolite Negative Negative 08/11/2025 12:06 AM EDT [facility] Trimethoprim Negative Negative 08/11/2025 12:06 AM EDT [facility] Valproic Acid Negative Negative 08/11/2025 12:06 AM EDT [facility] Venlafaxine Negative Negative 08/11/2025 12:06 AM EDT [facility] Verapamil Negative Negative 08/11/2025 12:06 AM EDT [facility] Zolpidem Negative Negative 08/11/2025 12:06 AM EDT [facility] [facility] Xylazine Negative Negative 08/11/2025 12:06 AM EDT [facility] Urine Urine specimen obtained by clean catch procedure / Unknown Non-blood Collection / Unknown 08/09/2025 3:58 AM EDT 08/09/2025 4:32 AM EDT us Tammy Bustamante MD LAB URINE ORDERABLES Final Resu lt [facility] [address] [place] [address] * (ABNORMAL) Acetaminophen, Quantitative, Plasma (08/09/2025 3:57 AM EDT) Acetaminophen <5.0(L) 10.0 - 30.0 g/mL 08/09/2025 5:52 AM EDT [facility] Blood Venous blood specimen / Unknown Venipuncture / Unknown 08/09/2025 3:57 AM EDT 08/09/2025 4:30 AM EDT Narrative [facility] - 08/09/2025 5:52 AM EDT Therapeutic: 10 to 30 ug/mL Supratherapeutic: >35 ug/mL Tammy Bustamante MD LAB BLOOD ORDERABLES Final Resu lt Performing Organization Address [facility] Co de Phone Number [facility] [address] [place] [address] * Hepatitis panel, acute (08/09/2025 3:57 AM EDT) Hepatitis B Surf Antigen Negative Negative 08/09/2025 5:37 AM EDT [facility] Hepatitis C Antibody Negative Negative 08/09/2025 5:37 AM EDT [facility] Hepatitis A Antibody IgM Negative Negative 08/09/2025 5:37 AM EDT [facility] Hepatitis B Core Antibody IgM Negative Negative 08/09/2025 5:37 AM EDT [facility] Blood Venous blood specimen / Unknown Venipuncture / Unknown 08/09/2025 3:57 AM EDT 08/09/2025 4:29 AM EDT Tammy Bustamante MD LAB BLOOD ORDERABLES Final Resu lt Performing Organization Address [facility]/ZIP Co de Phone Number [facility] [address] [place] [address] * C3 complement (08/09/2025 3:57 AM EDT) C3 Complement 156 84 - 166 mg/dL 08/09/2025 10:03 AM EDT [facility] Blood Venous blood specimen / Unknown Venipuncture / Unknown 08/09/2025 3:57 AM EDT 08/09/2025 4:29 AM EDT Emma Lehman MD LAB BLOOD ORDERABLES Final Resu lt Performing Organization Address City/[facility]/ZIP Co de Phone Number [facility] [address] [place] [address] * C4 complement (08/09/2025 3:57 AM EDT) C4 Complement 19 13 - 36 mg/dL 08/09/2025 10:03 AM EDT [facility] Blood Venous blood specimen / Unknown Venipuncture / Unknown 08/09/2025 3:57 AM EDT 08/09/2025 4:29 AM EDT us Emma Lehman MD LAB BLOOD ORDERABLES Final Resu lt Performing Organization Address [facility]/ZIP Co de Phone Number [facility] [address] [place] [address] * (ABNORMAL) Triglycerides (08/09/2025 3:57 AM EDT) Triglycerides, Plasma 150(H) <150 mg/dL 08/09/2025 5:53 AM EDT [facility] Comment: Triglyceride Reference Range (age >17 [...] 12 hours? Yes 08/09/2025 5:53 AM EDT [facility] Blood Venous blood specimen / Unknown Venipuncture / Unknown 08/09/2025 3:57 AM EDT 08/09/2025 4:30 AM EDT us Tammy Bustamante MD LAB BLOOD ORDERABLES Final Resu lt Performing Organization Address [facility]/ZIP Co de Phone Number [facility] [address] [place] [address] * (ABNORMAL) LDH, Lactate dehydrogenase (08/09/2025 3:57 AM EDT) LDH, Plasma 3,210(H) 116 - 250 U/L 08/09/2025 6:01 AM EDT [facility] Blood Venous blood specimen / Unknown Venipuncture / Unknown 08/09/2025 3:57 AM EDT 08/09/2025 4:30 AM EDT Tammy Bustamante MD LAB BLOOD ORDERABLES Final Resu lt Performing Organization Address [facility]/ZIP Co de Phone Number [facility] [address] [place] [address] * (ABNORMAL) Haptoglobin, Serum (08/09/2025 3:57 AM EDT) Haptoglobin, Serum 23(L) 40 - 219 mg/dL 08/09/2025 10:03 AM EDT [facility] Blood Venous blood specimen / Unknown Venipuncture / Unknown 08/09/2025 3:57 AM EDT 08/09/2025 4:29 AM EDT Emma Lemhan MD LAB BLOOD ORDERABLES Final Resu lt Performing Organization Address [facility]/ZIP Co de Phone Number [facility] [address] [place] [address] * Salicylate level (08/09/2025 3:57 AM EDT) Salicylate, Quantitative, Plasma <1.0 <25 mg/dL mg/dL 08/09/2025 5:52 AM EDT [facility] Blood Venous blood specimen / Unknown Venipuncture / Unknown 08/09/2025 3:57 AM EDT 08/09/2025 4:30 AM EDT Narrative [facility] - 08/09/2025 5:52 AM EDT Therapeutic Range: <25 mg/dL Supratherapeutic Level: >30 mg/dL Tammy Bustamante MD LAB BLOOD ORDERABLES Final Resu lt Performing Organization Address City/[facility]/ZIP Co de Phone Number [facility] [address] [place] [address] * CT Angio Abdomen Pelvis w Runoff [...] Total DLP (Dose-Length Product): 3890.87 mGy.cm (accession [id number]), 3890.87 mGy.cm (accession [id number]). Please note: The reported value represents the [...] Total DLP (Dose-Length Product): 3890.87 mGy.cm (accession [id number]),3890.87 mGy.cm (accession [id number]). Please note: The reported valuerepresents the total [...] Total DLP (Dose-Length Product): 3890.87 mGy.cm (accession [id number]), 3890.87 mGy.cm (accession [id number]). Please note: The reported value represents the [...] Total DLP (Dose-Length Product): 3890.87 mGy.cm (accession [id number]),3890.87 mGy.cm (accession [id number]). Please note: The reported valuerepresents the total [...] 72(H) <20 mm/hr 2024 2:45 AM EDT [facility] Blood Venous blood specimen / Unknown Venipuncture / Unknown 08/09/2025 12:36 AM EDT 08/09/2025 12:48 AM EDT Result Forrest Bustamante MD LAB BLOOD ORDERABLES Final Resu lt Performing Organization Address [facility]/[place] [address] * (ABNORMAL) C-reactive protein (08/09/2025 12:36 AM EDT) Only the most recent of2 resultswithin the time period is included. CRP, Plasma 148.4(H) <=8.0 mg/L 08/09/2025 2:04 AM EDT [facility] Blood Venous blood specimen / Unknown Venipuncture / Unknown 08/09/2025 12:36 AM EDT 08/09/2025 12:48 AM EDT Narrative [facility] - 08/09/2025 2:04 AM EDT This CRP test is appropriate for assessment of infection, systemic inflammation and/or tissue injury. To assess cardiovascular disease risk order high sensitivity CRP (CRPH). Result Forrest Bustamante MD LAB BLOOD [place] [address] * IA CRITICAL CARE, E/M 30-74 MINUTES, IA CRITICAL CARE, ADDL 30 MIN (08/08/2025 11:50 [...] Time (PTT) 26.1 24.5 - 32.8 SECONDS [facility] 08/08/2025 9:00 PM EDT 08/08/2025 9:05 PM EDT us Generic [facility] Provider LAB BLOOD ORDERABLES Final Result [facility] * Methicillin Resistant Staphylococcus aureus (MRSA) Culture (08/08/2025 8:35 PM EDT) External Culture NEGATIVE NEGATIVE [facility] Nasal contents 08/08/2025 8: 35 PM EDT 08/08/2025 9:05 PM EDT us Generic [facility] Provider LAB MICROBIOLOGY - G ENERAL ORDERABLES Final Result [facility] * CT OUTSIDE IMAGES (08/08/2025 [...] AM EDT Narrative 08/08/2025 2:59 [place] [address] Name: VERONICA WEISS Exam Date: 08/08/2025 : 1975 Age 49 years Gender: F Physician: LOBO LOWERY Facility: [facility] Facility HSV: Inpatient Exam: CT ABD PEL [...] Thank you for referring VERONICA WEISS to [facility]. Legally authenticated by AVI Driscoll 2025-08-08 14:56:42 Procedure Note Provider, Generic [facility] - 08/08/2025 [place] [address] Name: VERONICA WEISS Exam Date: 08/08/2025 : 1975 Age 49 years Gender: F Physician: LOBO LOWERY Facility: [facility] Facility HSV: Inpatient Exam: CT ABD PEL W EXAMINATION: CT ABDOMEN PELVIS WITH IV CONTRAST HISTORY: fall, inability to move left leg, severe rhabdomyolysis, r/ofx. COMPARISON: None. TECHNIQUE: Contiguous axial images through the abdomen and pelvis were acquired following the administration of intravenous contrast.Reconstructed images in the coronal and sagittal planes were reviewed. CT [facility] use dose modulation, iterative reconstruction and/or [...] Thank you for referring VERONICA WEISS to [facility]. Legally authenticated by AVI Driscoll 2025-08-08 14:56:42 us Generic [facility] Provider IMG CT PROCEDURES Fi nal Result * CT Hip Left w IV Contrast (08/08/2025 10:23 AM EDT) Anatomical Region Laterality Modality Lower Extremities, Hip Left Computed Tomography 08/08/2025 10:2 3 AM EDT Narrative 08/08/2025 3:06 [place] [address] Name: VERONICA WEISS Exam Date: 08/08/2025 : 1975 Age 49 years Gender: F Physician: LOBO LOWERY Facility: [facility] Facility HSV: Inpatient Exam: CT LOWER EXT [...] Thank you for referring VERONICA WEISS to [facility]. Legally authenticated by AVI Driscoll 2025-08-08 15:01:48 Procedure Note Provider, Generic [facility] 08/08/2025 [facility] [address] [place] [address] Name: VERONICA WEISS Exam Date: 08/08/2025 : 1975 Age 49 years Gender: F Physician: LOBO LOWERY Facility: [facility] Facility HSV: Inpatient Exam: CT LOWER EXT WITH LT EXAM: CT LOWER EXTREMITY WITH IV CONTRAST LEFT HISTORY: fall, 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 COMPARISON: None. Procedure: Thin section axial images were obtained through the lower extremities after the administration of intravenous contrast..Reconstructed images in the sagittal and coronal planes were reviewed. CT [facility] use dose modulation, iterative reconstruction and/or [...] Thank you for referring VERONICA WEISS to [facility]. Legally authenticated by AVI Driscoll 2025-08-08 15:01:48 Generic [facility] Provider IMG CT PROCEDURES Fi nal Result * (ABNORMAL) CK (08/08/2025 3:55 AM EDT) Only the most recent of4 resultswithin the time period is included. External Creatine Kinase 54950(H) 35 - 232 IU/l [facility] 08/08/2025 3:55 AM EDT 08/08/2025 4:29 AM EDT Generic [facility] Provider LAB BLOOD ORDERABLES Final Result [facility] * Echo, Adult Transthoracic Limited w/ Contrast (08/07/2025 6:38 AM EDT) Anatomical Region Laterality Modality Ultrasound 08/07/2025 6:38 AM EDT Narrative 08/07/2025 12:51 [place] [address] Name: VERONICA WEISS Exam Date: 08/07/2025 : 1975 Age 49 years Gender: F Physician: JOSSE MONTENEGRO Facility: [facility] Facility HSV: Inpatient Exam: ECHO W OR [...] stenosis with a valve area of 1.34 email production specialist (Peak grad=31mmHg, Mean grad=16mmHg, LVOT grady=2.00cm, LVOT TVI=14.2cm, Ao TVI=33.3cm). The dimensionless index is 0.43. AV peak fkyrmgok=435gt/sec. There is a Mechanical AV prosthesis. Tricuspid [...] Thank you for referring VERONICA WEISS to [facility]. Legally authenticated by PATTIE Yun 2025-08-07 12:49:32 Procedure Note Provider, Generic [facility] - 08/07/2025 [place] [address] Name: VERONICA WEISS Exam Date: 08/07/2025 : 1975 Age 49 years Gender: F Physician: JOSSE MONTENEGRO Facility: [facility] Facility HSV: Inpatient Exam: ECHO W OR [...] stenosis with a valve area of 1.34 email production specialist (Peak grad=31mmHg, Mean grad=16mmHg, LVOT grady=2.00cm, LVOT TVI=14.2cm, Ao TVI=33.3cm). The dimensionless index is 0.43. AV peak tvmmxwpv=761hc/sec. There is a Mechanical AV prosthesis. Tricuspid [...] Thank you for referring VERONICA WEISS to [facility]. Legally authenticated by PATTIE Yun 2025-08-07 12:49:32 us Generic [facility] Provider CV ECHO PROCEDURES F inal Result * (ABNORMAL) Troponin (EXTERNAL) (08/07/2025 5:05 AM EDT) Only the most recent of4 resultswithin the time period is included. [facility] External Troponin 294(HH) 0 - 51 ng/L [facility] 5:05 AM EDT 08/07/2025 8:29 AM EDT [facility] Provider LAB BLOOD ORDERABLES Final Result Performing Organization Address City/[facility]/ZIP Co de Phone Number [facility] * Hemoglobin A1c (08/07/2025 5:05 AM EDT) [facility] External Hemoglobin A1c 5.5 3.8 - 5.6 % [facility] Comment: GLYCOSYLATED HEMOGLOBIN (A1C) EXPECTED RANGES: <6.5 NON-DIABETIC 6.5-7.5 EXCELLENT 7.5-8.5 GOOD >8.5 POOR 08/07/2025 5:05 AM EDT 08/07/2025 5:38 AM EDT [facility] Provider LAB BLOOD ORDERABLES Final Result Performing Organization Address City/[facility]/ZIP Co de Phone Number [facility] * (ABNORMAL) Lipid Profile, Plasma (08/07/2025 5:05 AM EDT) [facility] External Triglyceride 98 30 - 200 mg/dl [facility] External Cholesterol 113 0 - 200 mg/dl [facility] External HDL Cholesterol 28(L) 40 - 104 mg/dL [facility] External LDL Cholesterol-Calcu lated 65 0 - 130 mg/dL [facility] 08/07/2025 5:05 AM EDT 08/07/2025 5:38 AM EDT Generic [facility] Provider LAB BLOOD ORDERABLES Final Result [facility] * XR OUTSIDE IMAGES (08/06/2025 12:26 PM [...] PM EDT Narrative 08/06/2025 12:43 [place] [address] Name: VERONICA WEISS Exam Date: 08/06/2025 : 1975 Age 49 years Gender: F Physician: LOBO LOWERY Facility: [facility] Facility HSV: Inpatient Exam: ANKLE 2V RT XR ANKLE 2 VIEWS RIGHT, 08/06/2025 11:34 AM CDT CLINICAL INDICATION: Female, 49 years old. Acute swelling, unable to bear weight COMPARISON: No existing relevant imaging and/or the patient did not have previous relevant imaging. Number of Views: 2 views of the right ankle was/were obtained. [id number]. FINDINGS / IMPRESSION: Diffuse subcutaneous edema. No acute fracture or dislocation. Anatomic osseous alignment. Ankle mortise is congruent. Negative for joint effusion. . . . S/D/G Electronically signed by: Blu Lundberg MD 08/06/2025 12:39 PM EDT RP Dictated By: Blu Lundberg Transcribed By: Transcribed On: 08/06/2025 12:39 PM Electronically signed by: Blu Lundberg 08/06/2025 Thank you for referring VERONICA WEISS to [facility]. Legally authenticated by SEMAJ Momin 2025-08-06 12:39:28 Procedure Note Provider, [facility] - 08/06/2025 [place] [address] Name: VERONICA WEISS Exam Date: 08/06/2025 : 1975 Age 49 years Gender: F Physician: LOBO LOWERY Facility: [facility] Facility HSV: Inpatient Exam: ANKLE 2V RT XR ANKLE 2 VIEWS RIGHT, 08/06/2025 11:34 AM CDT CLINICAL INDICATION: Female, 49 years old. Acute swelling, unable tobear weight COMPARISON: No existing relevant imaging and/or the patient did not have previous relevant imaging. Number of Views: 2 views of the right ankle was/were obtained. [id number]. FINDINGS / IMPRESSION: Diffuse subcutaneous edema. No acute fracture or dislocation. Anatomic osseous alignment. Anklemortise is congruent. Negative for joint effusion. . . . S/D/G Electronically signed by: Blu Lundberg MD 08/06/2025 12:39 PM EDTRP Dictated By: Blu Lundberg Transcribed By: Transcribed On: 08/06/2025 12:39 PM Electronically signed by: Blu Lundberg 08/06/2025 Thank you for referring VERONICA WEISS to [facility]. Legally authenticated by SEMAJ Momin 2025-08-06 12:39:28 Generic [facility] Provider IMG XR PROCEDURES Fi nal Result * Ethyl Alcohol Plasma (08/06/2025 7:50 AM EDT) External Ethyl Alcohol <3 0 - 50 MG/DL [facility] Comment: [place] [employer] REGULATIONS 100 mg/dl = Clinically intoxicated 350-450 mg/dl Clinically severe intoxication 550 mg/dl Usually fatal 08/06/2025 7:50 AM EDT 08/06/2025 8:48 AM EDT Generic [facility] Provider LAB BLOOD ORDERABLES Final Result Performing Organization Address [facility] Phone Number [facility] * Test Qualitative Plasma (08/06/2025 7:50 AM EDT) External Hcg Qualitative Serum NEGATIVE NEGATIVE [facility] External HCG Serum Lot # [id number] [facility] External HCG Serum Expiration Date 01/19/2026 [facility] External HCG Serum Internal Positive Control OK POSITIVE [facility] 08/06/2025 7:50 AM EDT 08/06/2025 8:47 AM EDT [facility] Provider LAB BLOOD ORDERABLES Final Result Performing Organization Address [facility] Phone Number [facility] * Lactic Acid, Plasma (08/06/2025 7:50 AM EDT) External Lactic Acid 1.0 0.4 - 2.0 mmol/L [facility] 08/06/2025 7:50 AM EDT 08/06/2025 7:51 AM EDT Generic [facility] Provider LAB BLOOD ORDERABLES Final Result Performing Organization Address [facility] Co de Phone Number [facility] * Colonoscopy External Result (02/24/2025) Anatomical Region [...] updated to appropriate status: Yes Care Teams Forest Fire Warden Relationship Specialty Start Date End Date Rodolfo Rhoades MD [address] [place] [id number] PCP - General Family Medicine 02/02/25 So Caicedo LPN VALUE-BASED [place] [address] TCM Nurse 09/07/25
--- OUTSIDE RECORDS SUMMARY | 2025-09-29 10:47 | XMS_ITS | Encounter Summary ---
Author Organization Healthcare Address [facility] [place] [address] Care Team Providers Care Pipe Recovery Specialist Name Role Phone Rodolfo Rhoades MD Primary Care Provider [phone] Marianne Bolaños Unavailable Unavailable Ariana Bagley Unavailable Unavailable Reason for Visit * Reason Onset Date Comments HCN Paperwork/Documentation Request 07/14/2025 Encounter Details Date Type Department Care Team (Late st Contact Info) Description 07/14/2025 Telephone [facility] Medicine [address] [place] [phone] Rodolfo Rhoades MD [address] [place] [phone] HCN Paperwork/Documentation Request Social History Tobacco [...] in the past 12 m [facility], were you homeless or living in a senior living (including now)? No 08/09/2025 [facility] [...] for work / HBP Best contact number: [phone] (mobile) Optimal time of day to reach [...] [facility] [address] [place] [address] Rodolfo Rhoades MD [address] [place] [address] documented as of this encounter [...] documented as of this encounter Care Teams Pipe Recovery Specialist Relationship Specialty Start Date End Date Rodolfo Rhoades MD [facility] [place] [address] PCP - General Family Medicine 02/02/25 Marianne Bolaños Clinical Shotgun Shell Reprinting Unit Operator 07/14/2507/28 Ariana Bagley Community Health Worker 07/14/25 07/14/25 documented as of this encounter
--- OUTSIDE RECORDS SUMMARY | 2025-09-29 10:47 | XMS_ITS | Encounter Summary ---
Author Organization Healthcare Address [address] [id number] Care Team Providers Care Spanish Moss Picker Name Role Phone Rodolfo Rhoades MD Primary Care Provider [phone] So Caicedo LPN Unavailable Unavailable Encounter Details Date Type Department Care Team (Late st Contact Info) Description 08/06/2025 Outside Procedure External Location [address] [place] [id number] Provider, Sw[facility] Social History Tobacco Use Types Packs/Day Years [...] time in the past [address] [facility], were you homeless or living in a skilled nursing (including now)? No 08/09/2025 [facility] Utilities Answer Date Recorded In [...] Description 10/12/2025 11:20 AM EST Office Visit [facility] [address] [place] [address] Rodolfo Rhoades MD [address] [place] [address] documented as of this encounter Procedures Procedure Name Priority Date/Time Associated Diagnosis Comments XR ANKLE RIGHT 2 VIEWS 08/06/2025 12:23 PM EDT documented in this encounter Results * XR Ankle Right 2 Views (08/06/2025 12:23 PM EDT) Anatomical Region Laterality Modality Lower Extremities, Ankle Right Digital Radiography 08/06/2025 12:2 3 PM EDT Narrative 08/06/2025 12:43 PM EDT [address] [address] Name: HAILEY ALVAREZ Exam Date: 08/06/2025 : 1975 Age 49 years Gender: F Physician: LOBO LOWREY Facility: [facility] Facility HSV: Inpatient Exam: ANKLE 2V RT XR ANKLE 2 VIEWS RIGHT, 08/06/2025 11:34 AM CDT CLINICAL INDICATION: Female, 49 years old. Acute swelling, unable to bear weight COMPARISON: No existing relevant imaging and/or the patient did not have previous relevant imaging. Number of Views: 2 views of the right ankle was/were obtained. [id number]. FINDINGS / IMPRESSION: Diffuse subcutaneous edema. No acute fracture or dislocation. Anatomic osseous alignment. Ankle mortise is congruent. Negative for joint effusion. . . . S/D/G Electronically signed by: Blu Wasserman MD 08/06/2025 12:39 PM EDT Dictated By: Blu Wasserman Transcribed By: Transcribed On: 08/06/2025 12:39 PM Electronically signed by: Blu Wasserman 08/06/2025 Thank you for referring HAILEY ALVAREZ to [facility]. Legally authenticated by SEMAJ Momin 2025-08-06 12:39:28 Procedure Note Provider, Generic [facility] - 08/06/2025 [place] [address] Name: HAILEY ALVAREZ Exam Date: 08/06/2025 : 1975 Age 49 years Gender: F Physician: LOBO LOWERY Facility: [facility] Facility HSV: Inpatient Exam: ANKLE 2V RT XR ANKLE 2 VIEWS RIGHT, 08/06/2025 11:34 AM CDT CLINICAL INDICATION: Female, 49 years old. Acute swelling, unable tobear weight COMPARISON: No existing relevant imaging and/or the patient did not have previous relevant imaging. Number of Views: 2 views of the right ankle was/were obtained. [id number]. FINDINGS / IMPRESSION: Diffuse subcutaneous edema. No acute fracture or dislocation. Anatomic osseous alignment. Anklemortise is congruent. Negative for joint effusion. . . . S/D/G Electronically signed by: Blu Wasserman MD 08/06/2025 12:39 PM EDTRP Dictated By: Blu Wasserman Transcribed By: Transcribed On: 08/06/2025 12:39 PM Electronically signed by: Blu Wasserman 08/06/2025 Thank you for referring HAILEY ALVAREZ to [facility]. Legally authenticated by SEMAJ Momin 2025-08-06 12:39:28 us Generic [place] Provider IMG XR PROCEDURES Fi nal Result [...] documented as of this encounter Care Teams Spanish Moss Picker Relationship Specialty Start Date End Date Rodolfo Rhoades MD [address] [place] [address] PCP - General Family Medicine 02/02/25 So Caicedo LPN VALUE-[employer]ED [place] [address] TCM Nurse 09/07/25 documented as of this encounter
--- OUTSIDE RECORDS SUMMARY | 2025-09-29 10:47 | XMS_ITS | Encounter Summary ---
Author Organization [facility] Address [facility] [place] [address] Care Team Providers Care Medical Detail Representative Name Role Phone Georgette Moore APRN Primary Care Provider [phone] Veronica Goodwin LPN Unavailable Unavailable Margaret Ro Unavailable Unavailable Rodoflo Rhoades MD Primary Care Provider [phone] Marianne Bolaños Unavailable Unavailable Ariana Bagley Unavailable Unavailable So Caicedo LPN Unavailable Unavailable Reason for Visit * Reason Comments Med Refill Encounter Details Date Type Department Care Team (Late st Contact Info) Description 05/13/2021 Refill Family and Community Medicine [address] [place] [address] Georgette Moore APRN [address] [place] [address] Social History Tobacco Use Types [...] Office Visit [facility] [address] [place] [address] Rodolfo Rhoades MD [address] [place] [address] documented as of this encounter Visit [...] as of this encounter Care Teams Medical Detail Representative Relationship Specialty Start Date End Date Georgette Moore APRN [address] [place] [address] PCP - General 04/12/21 02/01/25 Rodolfo Rhoades MD [address] [place] [address] PCP - General Family Medicine 02/02/25 Veronica Goodwin LPN [employer] [place] [address] TCM Nurse 07/25/24 08/25/24 Margaret Ro Community Health Worker 07/27/24 4 Mami, Marianne Delgado Clinical Merchandise Adjustment Clerk 07/14/25 07/28/25 Ariana Bagley Community Health Worker 07/14/25 07/14/25 So Caicedo LPN VALUE-[employer]ED [place] [address] TCM Nurse 09/07/25 documented as of this encounter
--- OUTSIDE RECORDS SUMMARY | 2025-09-29 10:47 | XMS_ITS | Clinical Summary ---
[facility] Organization [facility] Address [address] [place] [address] Care Team Providers Care Keyboard Specialist Name Role Phone Rodolfo Rhoades MD [...] lateral wall. Normal LVEF. Cardiac cath at [facility] (04/2020): Normal coronary arteries. 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 Not [...] SCREENING 02/24/2035 Medical Devices Implanted Type Area Personal Lines Account Executive Device Identifier Shelf Expiration Date Model / Serial / Lot Vlv Aort [facility] 19mm - [id number] - [id number] Implanted:Qty : 1 on 06/11/2021 by Taz Cespedes MD at [facility] Implant N/A: Heart [employer] [id number] 01/01/2025 [id number] / [id number] / Appl Clip Evelyn Atriclip Flx 35mm - [id number] Implanted:Qty : 1 on 06/11/2021 by Taz Cespedes MD at [facility] Implant N/A: Heart ATRICURE 02/29/2024 [id number] / [id number] Procedures Procedure Name Priority Date/Time Associated Diagnosis Comments LIPID PANEL STAT 04/19/2021 9:30 AM EDT from Last 3 Months or Most Recently Relevant to Health Maintenance Results * Lipid Panel (04/19/2021 9:30 AM EDT) Total Cholesterol 146 0 - 200 mg/dL 04/19/2021 10:14 AM EDT [facility] Triglycerides 67 0 - 150 mg/dL 04/19/2021 10:14 AM EDT [facility] HDL Cholesterol 58 40 - 60 mg/dL 04/19/2021 10:14 AM EDT [facility] LDL Cholesterol 75 0 - 100 mg/dL 04/19/2021 10:14 AM EDT [facility] VLDL Cholesterol 13 5 - 40 mg/dL 04/19/2021 10:14 AM EDT [facility] LDL/HDL Ratio 1.29 04/19/2021 10:14 AM EDT [facility] Blood Line / Unknown 04/19/2021 9: 30 AM EDT 04/19/2021 9:40 AM EDT Narrative [facility] - 04/19/2021 10:14 AM EDT [...] mg/dL Very High >189 mg/dL Kathy Saavedra IMPLEMENTATION ENGINEER LAB BLOOD ORDERABLES Final Result [facility]
[address] [place] [address], from Last 3 Months or Most Recently Relevant to Health Maintenance [place] [address] [place] [address] Advance Directives * CPR (Attempt to Resuscitate) (Latest Code Status on File) Date Activated Date Inactivated Comments 06/11/2021 10:54 AM 06/18/2021 6:29 PM Question Answer Comments Code Status (Patient has no pulse and is not breathing): CPR (Attempt to Resuscitate) Medical Interventions (Patie nt has pulse or is breathing): Full Care Teams Keyboard Specialist Relationship Specialty Start Date End Date Rodolfo Rhoades MD [address] [place] [address] PCP - General Family Medicine 04/05/25
--- OUTSIDE RECORDS SUMMARY | 2025-09-29 10:47 | XMS_ITS | Encounter Summary ---
Author Organization [facility] Address [address] [place] [address] Care Team Providers Care Visual Merchandising Director Name Role Phone Georgette Moore APRN Primary Care Provider [phone] Veronica Goodwin LPN Unavailable Unavailable Margaret Ro Unavailable Unavailable Rodolfo Rhoades MD Primary Care Provider [phone] Marianne Bolaños Unavailable Unavailable Ariana Bagley Unavailable Unavailable So Caicedo LPN Unavailable Unavailable Encounter Details Date Type Department Care Team (Late st Contact Info) Description 07/22/2024 Outside Procedure External Location [address] [place] [id number] Provider, Swapnil Monique Social History Tobacco Use [...] in a fci (including now)? No 07/25/2024 Safety and Environment [...] In the past 12 months has [employer], gas, oil, or water [employer] threatened to shut off services in your [...] Description 10/12/2025 11:20 AM EST Office Visit [facility] [address] [place] [address] Rodolfo Rhoades MD [address] [place] [address] documented as of this encounter Procedures Procedure Name Priority Date/Time Associated Diagnosis Comments ECHO, ADULT TRANSTHORACIC COMPLETE W/ COLOR AND DOPPLER 07/22/2024 6:31 AM EDT documented in this encounter Results * Echo, Adult Transthoracic Complete w/ Color and Doppler (07/22/2024 6:31 AM EDT) Anatomical Region Laterality Modality Ultrasound 07/22/2024 6:31 AM EDT Narrative 07/22/2024 12:07 PM EDT [address] [address] Name: VERONICA ALVAREZ Exam Date: 07/22/2024 : 1975 Age 48 years Gender: F Physician: VICTORIANO REYES Facility: [facility] Facility HSV: Inpatient Exam: ECHO W [...] stenosis with a valve area of 0.85 leaf sucker operator (Peak grad=45mmHg, Mean grad=24mmHg, LVOT grady=2.10cm, LVOT TVI=19.3cm, Ao TVI=79.0cm). The dimensionless index is 0.24. AV peak dhxmvprl=026ug/sec. There is a Mechanical AV prosthesis. (Peak [...] Thank you for referring VERONICA ALVAREZ to [facility]. Legally authenticated by CINDY JORDAN 2024-07-22 12:04:58 Procedure Note Provider, Generic [place] - 07/22/2024 [place] [address] Name: VERONICA ALVAREZ Exam Date: 07/22/2024 : 1975 Age 48 years Gender: F Physician: VICTORIANO REYES Facility: [facility] Facility HSV: Inpatient Exam: ECHO W [...] stenosis with a valve area of 0.85 leaf sucker operator (Peak grad=45mmHg, Mean grad=24mmHg, LVOT grady=2.10cm, LVOT TVI=19.3cm, Ao TVI=79.0cm). The dimensionless index is 0.24. AV peak wddndnoa=921oa/sec. There is a Mechanical AV prosthesis. (Peak [...] Thank you for referring VERONICA ALVAREZ to [facility]. Legally authenticated by CINDY JORDAN 2024-07-22 12:04:58 Generic [place] Provider CV ECHO PROCEDURES F inal Result [...] documented as of this encounter Care Teams Visual Merchandising Director Relationship Specialty Start Date End Date Georgette Moore APRN [address] [place] [address] PCP - General 04/12/21 02/01/25 Rodolfo Rhoades MD [address] [place] [address] PCP - General Family Medicine 02/02/25 Veronica Goodwin LPN [employer] [place] [address] TCM Nurse 07/25/24 08/25/24 Margaret Ro Community Health Worker 07/27/24 4 Marianne Bolaños Clinical Product Manufacturing Professional 07/14/25 07/28/25 Ariana Bagley Community Health Worker 07/14/25 07/14/25 So Caicedo, ANTOINE VALUE[employer] [address] TCM Nurse 09/07/25 documented as of this encounter
--- OUTSIDE RECORDS SUMMARY | 2025-09-29 10:47 | XMS_ITS ---
Author Organization [facility] Address [address] [place] [address] Care Team Providers Care Product Promoter Sales Person Name Role Phone Rodolfo Rhoades MD Primary Care Provider [phone] So Caicedo LPN Unavailable Unavailable Transitional Care Management Status:Active (Active) Start date:09/07/2025 Enrollment date:09/08/2025 Enrollment reason:Identified using hospital discharge data Overview This episode type is for outpatient care managers enrolling patients in the [facility] Transitional Care Management program. Case Team Name Relationship Phone So Caicedo LPN(Responsible Staff) TCM Nurse Continued Care and Services Coordination
--- OUTSIDE RECORDS SUMMARY | 2025-09-29 10:47 | XMS_ITS | Encounter Summary ---
Author Organization [facility] Address [address] [place] [address] Care Team Providers Care Punch Box Tender Name Role Phone Rodolfo Rhoades MD Primary Care Provider [phone] Marianne Bolaños Unavailable Unavailable Ariana Bagley Unavailable Unavailable So Caicedo LPN Unavailable Unavailable Encounter Details Date Type Department Care Team (Late st Contact Info) Description 07/14/2025 Results Follow-Up [facility] & Community Medicine [address] [place] [address] Rodolfo Rhoades MD [address] [place] [address] Social History Tobacco Use Types [...] in a jail (including now)? No 08/09/[address] [facility] [address] [...] Description 10/12/2025 11:20 AM EST Office Visit [facility] [place] [facility] [address] [place] [address] Rodolfo Rhoades MD [address] [place] [address] documented as of this encounter Visit [...] documented as of this encounter Care Teams Punch Box Tender Relationship Specialty Start Date End Date Rodolfo Rhoades MD [address] [place] [address] PCP - General Family Medicine 02/02/25 Marianne Bolaños Clinical Prospecting Driller 07/14/25 07/28/25 Ariana Bagley Community Health Worker 07/14/25 07/14/25 So Caicedo LPN VALUE-BASED [place] [address] TCM Nurse 09/07/25 documented as of this encounter
--- OUTSIDE RECORDS SUMMARY | 2025-09-29 10:47 | XMS_ITS | Encounter Summary ---
Author Organization [facility] Address [address] [place] [id number] Care Team Providers Care Packer Operator Automatic Name Role Phone Georgette Moore APRN Primary Care Provider [phone] Hailey Goodwin [place] GUIDE Unavailable Unavailable Margaret Ro Unavailable Unavailable Rodolfo Rhoades MD Primary Care Provider [phone] Marianne Bolaños Unavailable Unavailable Ariana Bagley Unavailable Unavailable So Caicedo [place] GUIDE Unavailable Unavailable Encounter Details Date Type Department Care Team (Late st Contact Info) Description 07/22/2021 Outside Procedure External Location [address] [place] [address] Irma Masterson MD [address] [place] [address] Social History Tobacco Use Types Packs/Day [...] EST Office Visit [facility] [address] [place] [address] Rodolfo Rhoades MD [address] [place] [address] documented as of this encounter Procedures Procedure Name Priority Date/Time Associated Diagnosis Comments CT CHEST LIMITED HISTORICAL 07/22/2021 1:04 PM EDT documented in this encounter Results * CT Chest Limited Historical (07/22/2021 1:04 PM EDT) Anatomical Region Laterality Modality Chest Computed Tomogra phy 07/22/2021 1:04 PM EDT Narrative 07/22/2021 3:35 PM EDT [address] [address] Name: HAILEY ALVAREZ Exam Date: 07/22/2021 : 1975 Age 45 Gender: F Physician: Irma Masterson Facility: [facility] Facility HSV: Outpatient Exam: CT CHEST W/O [...] for referring HAILEY ALVAREZ to [facility]. Legally authenticated by POPE FUNMILAYO Almonte 2021-07-22 15:24:50 Procedure Note Provider, Swapnil [place] - 07/22/2021 [address] [place] [address] Name: HAILEY ALVAREZ Exam Date: 07/22/2021 : 1975 Age 45 Gender: F Physician: Irma Masterson Facility: [facility] Facility HSV: Outpatient Exam: CT CHEST W/O [...] for referring HAILEY ALVAREZ to [facility]. Legally authenticated by POPE FUNMILAYO Almonte 2021-07-22 [...] documented as of this encounter Care Teams Packer Operator Automatic Relationship Specialty Start Date End Date Georgette Moore, TITLE CLERK [address] [place] [address] PCP - General 04/12/21 02/01/25 Rodolfo Rhoades MD [address] [place] [address] PCP - General Family Medicine 02/02/25 Hailey Goodwin LPN VALUE-BASED [place] [address] TCM Nurse 07/25/24 08/25/24 Margaret Ro Community Health Worker 07/27/24 4 Marianne Bolaños Clinical Group Fitness Instructor 07/14/25 07/28/25 Ariana Bagley Community Health Worker 07/14/25 07/14/25 So Caicedo LPN VALUE-BASED [place] [address] TCM Nurse 09/07/25 documented as of this encounter
--- OUTSIDE RECORDS SUMMARY | 2025-09-29 10:47 | XMS_ITS | Encounter Summary ---
Author Organization Healthcare Address [address] [place] [address] Care Team Providers Care Merchandise Stocker Name Role Phone Rodolfo Rhoades MD Primary Care Provider [phone] Encounter Details Date Type Department Care Team (Late st Contact Info) Description 08/06/2025 Orders Only External Location [address] [place] [address] Provider, Swapnil [place] Social History Tobacco Use [...] living in a halfway (including now)? No 07/14/2025 Safety and Environment [...] Description 10/12/2025 11:20 AM EST Office Visit [facility] [address] [place] [address] Rodolfo Rhoades MD [address] [place] [address] documented as of this encounter Procedures Procedure Name Priority Date/Time Associated Diagnosis Comments MAGNESIUM, PLASMA Routine 08/06/2025 7:5 0 PM EDT APTT Routine 08/06/2025 1:30 PM EDT PROTHROMBIN TIME(PT) / INR Routine 08/06/2025 1:30 PM EDT [facility] ([facility]) Routine 08/06/2025 1:22 PM EDT PHOSPHORUS, PLASMA Routine 08/06/2025 1: 22 PM EDT MAGNESIUM, PLASMA Routine 08/06/2025 1:2 2 PM EDT CK Routine 08/06/2025 1:22 PM EDT [facility] ([facility]) Routine 08/06/2025 10:00 AM EDT APTT Routine 08/06/2025 10:00 AM EDT PROTHROMBIN TIME(PT) / INR Routine 08/06/2025 10:00 AM EDT COMPREHENSIVE URINE DRUG SCREENING,QUALITATIVE ASSAY, >= 27 DRUG CLASSES Routine 08/06/2025 9:09 AM EDT [facility] ([facility]) Routine 08/06/2025 7:50 AM EDT [...] External Magnesium 1.8 1.8 - 2.4 MG/DL [facility] 08/06/2025 7:50 PM EDT 08/06/2025 7:55 PM EDT [facility] [place] Provider LAB BLOOD ORDERABLES Final Result Performing Organization Address [facility] Co de Phone Number [facility] * (ABNORMAL) APTT (08/06/2025 1:30 PM EDT) External Partial Thromboplastin Time (PTT) 120.0(HH) 24.5 - 32.8 SECONDS [facility] 08/06/2025 1:30 PM EDT 08/06/2025 3:28 PM EDT [facility] [place] Provider LAB BLOOD ORDERABLES Final Result Performing Organization Address [facility] Co de Phone Number [facility] * (ABNORMAL) Prothrombin Time/INR (08/06/2025 1:30 PM EDT) External Prothrombin Time (PT) >140.0(HH ) 9.3 - 11.4 SECONDS [facility] External INR - Internormal Ratio TNP 0.97 - 1.05 Ratio [facility] Comment: TEST NOT PERFORMED INR is intended to be used ONLY for patients on stable oral anticoagulant therapy. Therapeutic Ranges: 2.0-3.0 Usual Therapeutic Range 2.5-3.5 For patients with history of Multiple Deep Vein Thrombus or Mechanical Heart Valves 08/06/2025 1:30 PM EDT 08/06/2025 3:28 PM EDT [facility] [place] Provider LAB BLOOD ORDERABLES Final Result Performing Organization Address [facility] Co de Phone Number [facility] * (ABNORMAL) Magnesium, Plasma (08/06/2025 1:22 PM EDT) External Magnesium 1.7(L) 1.8 - 2.4 MG/DL [facility] 08/06/2025 1:22 PM EDT 08/06/2025 4:46 PM EDT [facility] Provider LAB BLOOD ORDERABLES Final Result Performing Organization Address [facility] de Phone Number [facility] * (ABNORMAL) Troponin (EXTERNAL) (08/06/2025 1:22 PM EDT) External Troponin 277(HH) 0 - 51 ng/L [facility] Comment: PATIENT SAMPLES MAY CONTAIN [...] PM EDT 08/06/2025 2:41 PM EDT Generic [place] Provider LAB BLOOD ORDERABLES Final Result Performing Organization Address [facility] Phone Number [facility] * Phosphorus, Plasma (08/06/2025 1:22 PM EDT) External Phosphorus 3.0 2.5 - 4.9 mg/dl [facility] 08/06/2025 1:22 PM EDT 08/06/2025 2:41 PM EDT Generic [facility] LAB BLOOD ORDERABLES Final Result Performing Organization Address [facility] Number [facility] * (ABNORMAL) CK (08/06/2025 1:22 PM EDT) External Creatine Kinase 10880(H) 35 - 232 IU/l [facility] 08/06/2025 1:22 PM EDT 08/06/2025 1:23 PM EDT Generic [facility] LAB BLOOD ORDERABLES Final Result Performing Organization Address [facility] Phone Number [facility] * (ABNORMAL) APTT (08/06/2025 10:00 AM EDT) External Partial Thromboplastin Time (PTT) 118.9(HH) 24.5 - 32.8 SECONDS [facility] 08/06/2025 10:0 0 AM EDT 08/06/2025 10:02 AM EDT Generic [place] Provider LAB BLOOD ORDERABLES Final Result Performing Organization Address [facility] Phone Number [facility] * Prothrombin Time/INR (08/06/2025 10:00 AM EDT) External Prothrombin Time (PT) TNP 9.3 - 11.4 SECONDS [facility] Comment: ABNORMAL RESULTS DUE TO ANTICOAGULANT THERAPY. NUMERIC RESULT WAS UNABLE TO BE OBTAINED THE ANALYZER CAN TEST NOT PERFORMED TEST NOT PERFORMED External INR - Internormal Ratio TNP 0.97 - 1.05 Ratio [facility] Comment: NOT PROVIDE A RESULT THAT IS >140. INR is intended to be used ONLY for patients on stable oral anticoagulant therapy. Therapeutic Ranges: 2.0-3.0 Usual Therapeutic Range 2.5-3.5 For patients with history of Multiple Deep Vein Thrombus or Mechanical Heart Valves 08/06/2025 10:0 0 AM EDT 08/06/2025 10:02 AM EDT [facility] [place] Provider LAB BLOOD ORDERABLES Final Result Performing Organization Address [facility] de Phone Number [facility] * (ABNORMAL) Troponin (EXTERNAL) (08/06/2025 10:00 AM EDT) External Troponin 255(HH) 0 - 51 ng/L [facility] Comment: PATIENT SAMPLES MAY CONTAIN [...] 0 AM EDT 08/06/2025 10:02 AM EDT [facility] [place] Provider LAB BLOOD ORDERABLES Final Result Performing Organization Address [facility] Phone Number [facility] * Comprehensive Urine Drug Screening, Qualitative Assay, >= 27 Drug Classes (08/06/2025 9:09 AM EDT) External Methadone, Urine Screen NEGATIVE NEGATIVE [facility] External Marijuana Screen-Urine NEGATIVE NEGATIVE [facility] External Cocaine, Urine Screen NEGATIVE NEGATIVE [facility] External Barbiturate, Urine Screen NEGATIVE NEGATIVE [facility] External Benzodiazepine , Urine Screen NEGATIVE NEGATIVE [facility] External Opiates, Urine Screen NEGATIVE NEGATIVE [facility] External Amphetamine, Urine Screen NEGATIVE NEGATIVE [facility] External PCP Screen-Urine NEGATIVE NEGATIVE [facility] Ureter biopsy 08/06/2025 9:0 9 AM EDT 08/06/2025 9:48 AM EDT us Generic [place] Provider LAB URINE ORDERABLES Final Result [facility] * (ABNORMAL) CBC and Differential (08/06/2025 7:50 AM EDT) External WBC 11.8(H) 4.0 - 10.5 K/ul [facility] External Red Blood Cell (RBC) 4.8 4.2 - 6.4 M/mm3 [facility] External Hemoglobin 14.2 12.5 - 16.0 gm/dl [facility] External Hematocrit 42.2 37.0 - 47.0 % [facility] External MCV 88.8 78 - 100 fl [facility] External MCH 29.9 27 - 31 pg [facility] External MCHC 33.6 32 - 36 g/dl [facility] External RDW 12.4 11.5 - 14.0 % [facility] External Platelets 334 150 - 450 K/ul [facility] External MPV 9.9(H) 6 - 9.5 fl [facility] External Neutrophils % 68.7(H) 43 - 65 % [facility] External Lymphocyte % 9.0(L) 20.5 - 45.5 % [facility] External Monocyte % 5.3(L) 5.5 - 11.7 % [facility] External Eosinophil% 15.4(H) 0.9 - 2.9 % [facility] External Basophil % 0.2 0.2 - 1.0 % [facility] External Immature Granulocyte% 1.4(H) 0.0 - 0.8 % [facility] External Nucleated RBC % 0.0 % [facility] External Neutrophil# 8.1(H) 2.2 - 4.8 K/uL [facility] External Lymphocyte# 1.1(L) 1.3 - 2.9 CELL/MCL [facility] External Monocyte# 0.6 0.3 - 0.8 [facility] External Eosinophils# 1.8(H) 0 - 0.2 CELL/MCL [facility] External Baso# 0.0 0.0 - 1.0 CELL/[facility] External Immature Granulocyte Abs 0.17 K/ul [facility] External Nucleated RBC Absolute 0.00 K/uL [facility] External Manual Differential YES [facility] External Neutrophils % 81(H) 42 - 76 % [facility] External Lymphocyte % 4(L) 15 - 41 % [facility] External Monocyte % 5 2 - 9 % [facility] External Eosinophils# 8(H) 0 - 3 % [facility] External Atypical Lymph% 2 [facility] External Platelet Estimate ADEQUATE ADEQUATE [facility] External Platelet Morphology NORMAL NORMAL [facility] External RBC Morphology Comment NORMAL NORMAL [facility] 08/06/2025 7:50 AM EDT 08/06/2025 7:51 AM EDT us Generic [place] Provider LAB BLOOD ORDERABLES Final Result [facility] * Test Qualitative Plasma (08/06/2025 7:50 AM EDT) External Hcg Qualitative Serum NEGATIVE NEGATIVE [facility] External HCG Serum Lot # [id number] [facility] External HCG Serum Expiration Date 01/19/2026 [facility] External HCG Serum Internal Positive Control OK POSITIVE [facility] 08/06/2025 7:50 AM EDT 08/06/2025 8:47 AM EDT us Generic [place] Provider LAB BLOOD ORDERABLES Final Result Performing Organization Address [facility] Co or Phone Number [facility] * Ethyl Alcohol Plasma (08/06/2025 7:50 AM EDT) External Ethyl Alcohol <3 0 - 50 MG/DL [facility] Comment: [place] ALCOHOL REGULATIONS 100 mg/dl = Clinically intoxicated 350-450 mg/dl Clinically severe intoxication 550 mg/dl Usually fatal 08/06/2025 7:50 AM EDT 08/06/2025 8:48 AM EDT Generic [place] Provider LAB BLOOD ORDERABLES Final Result Performing Organization Address [facility] Co de Phone Number [facility] * (ABNORMAL) CK (08/06/2025 7:50 AM EDT) External Creatine Kinase 74274(H) 35 - 232 IU/l [facility] 08/06/2025 7:50 AM EDT 08/06/2025 7:50 AM EDT Generic [place] Provider LAB BLOOD ORDERABLES Final Result Performing Organization Address [facility] Co de Phone Number [facility] * (ABNORMAL) Comprehensive Metabolic Panel, Plasma (08/06/2025 7:50 AM EDT) External Sodium 134(L) 136 - 145 mmol/L [facility] External Potassium 3.8 3.6 - 5.0 mmol/L [facility] External Chloride 98 98 - 107 mmol/L [facility] External Carbon Dioxide 27.6 21.0 - 32.0 mmol/L [facility] External Anion Gap (AG) 12.2 [facility] External Glucose 115 70 - 120 mg/dl [facility] External BUN 8 7 - 18 mg/dL [facility] External Creatinine Blood 0.7 0.6 - 1.3 mg/dL [facility] External Estimated GFR 107 60- mlpermin [facility] Comment: GFR LIMITATION: The eGFR equation CKD-EPI 2020 is not applicable for pediatric patients or greater than 90 years of age. The following conditions may alter the GFR result: extremes in body size, malnutrition or obesity, skeletal muscle disease, paraplegia or quadriplegia, vegetarian diet or rapidly changing kiney function. External Osmolality (Calculated) 278 275 - 301 mosm/kg [facility] Comment: OSMOLALITY IS A CALCULATION UTILIZING THE SERUM/PLASMA SODIUM, GLUCOSE AND UREA NITROGEN (BUN) LEVELS. FOR THE MOST ACCURATE RESULT A MEASURED SERUM OSMOLALITY IS SUGGESTED. External Total Protein 7.3 6.4 - 8.2 g/dl [facility] External Albumin 2.8(L) 3.4 - 5.0 g/dl [facility] External Globulin 4.5 [facility] External Albumin/Globuli n Ratio 0.6(L) 0.7 - 2 [facility] External Calcium 8.9 8.5 - 10.5 mg/dl [facility] External Bilirubin Total 0.50 0.10 - 1.00 mg/dL [facility] External AST (SGOT) 234(H) 0 - 37 U/L [facility] External ALT (SGPT) 88(H) 0 - 65 U/L [facility] External Alkaline Phosphatase 123(H) 46 - 116 U/L [facility] 08/06/2025 7:50 AM EDT 08/06/2025 7:50 AM EDT us Generic [place] Provider LAB BLOOD ORDERABLES Final Result Performing Organization Address City/[facility]/ZIP Co de Phone Number [facility] * (ABNORMAL) Troponin (EXTERNAL) (08/06/2025 7:50 AM EDT) External Troponin 285(HH) 0 - 51 ng/L [facility] Comment: PATIENT SAMPLES MAY CONTAIN [...] 7:50 AM EDT 08/06/2025 7:51 AM EDT [facility] Provider LAB BLOOD ORDERABLES Final Result Performing Organization Address [facility] Co de Phone Number [facility] * Lactic Acid, Plasma (08/06/2025 7:50 AM EDT) External Lactic Acid 1.0 0.4 - 2.0 mmol/L [facility] 08/06/2025 7:50 AM EDT 08/06/2025 7:51 AM EDT [facility] Provider LAB BLOOD ORDERABLES Final Result Performing Organization Address [facility]/ZIP Co de Phone Number [facility] documented in this encounter Visit [...] documented as of this encounter Care Teams Merchandise Stocker Relationship Specialty Start Date End Date Rodolfo Rhoades MD [address] [place] [address] PCP - General Family Medicine 02/02/25 documented as of this encounter
--- OUTSIDE RECORDS SUMMARY | 2025-09-29 10:47 | XMS_ITS | Encounter Summary ---
Author Organization Healthcare Address [facility] [place] [address] Care Team Providers Care Fan Balancer Name Role Phone Rodolfo Rhoades MD Primary Care Provider [phone] So Caicedo LPN Unavailable Unavailable Encounter Details Date Type Department Care Team (Late st Contact Info) Description 09/19/2025 Telephone [facility] [address] [place] [address] Rodolfo Rhoades MD [address] [place] [address] Social History Tobacco Use Types [...] a skilled nursing (including now)? No 08/09/2025 [facility] Utilities Answer Date Recorded In [...] is not sure about a UTC in [place] but is going to get INR tomorrow and will ask them about a UTC in [facility]. * Telephone Encounter - Mindy Gudino - [...] want xray she wants order sent to [facility]. Informedpt I would send message to Dr. Rhoades and call her back. Pt voiced understanding. * Telephone Encounter - Bri Collins - 09/19/2025 10:12 AM EDT Clinical Concern/Question Reason for Call: Pt has been tired since she got home from the hospital, she is asking if that is normal. Also asking if a walker without wheels can be ordered for her in [place] ( [facility]). Best contact number: [phone] (mobile) Optimal time of day to reach [...] Description 10/12/2025 11:20 AM EST Office Visit [facility] [address] [place] [address] Rodolfo Rhoades MD [address] [place] [address] documented as of this encounter Visit Diagnoses Not on filedocumented in this encounter Additional Health Concerns Assessment Noted Time PHQ-9 Depression Total Score: 11 08/ 025 10:59 AM EDT A fall risk assessment has been complete d for the patient 03/19/2023 1:57 PM EDT A Body Mass Index follow-up plan has been documented for the patient 09/25/2025 9:44 AM EDT documented as of this encounter Care Teams Fan Balancer Relationship Specialty Start Date End Date Rodolfo Rhoades MD [address] [place] [address] PCP - General Family Medicine 02/02/25 So Caicedo LPN [employer] [place] [address] TCM Nurse 09/07/25 documented as of this encounter
[2025-09-29 11:49] LABS: PHA INR Fingerstick 2.3 (0.9-1.1)
== END 2025-09-29 11:55 ==
LOC: ACC 10:43
PROVIDERS: PCP Nurse Practitioner Family; Visit Provider Nurse Practitioner Family
DX: Z79.01 Long term (current) use of anticoagulants (principal)
CPT/HCPCS: 85610; 99211; G0463

== ENCOUNTER 2025-10-30 10:22 | Outpatient (RCR) | payer OTHER, SELFPAY | END 2025-11-22 23:59 | disposition home or self-care (01) | LOC: PT 10:22 | PROVIDERS: PCP Nurse Practitioner Family; Visit Provider Family Medicine | DX: M62.82 Rhabdomyolysis (principal); R74.8 Abnormal levels of other serum enzymes; R53.1 Weakness | CPT/HCPCS: 97163 ==

== ENCOUNTER 2025-11-09 13:00 | Outpatient (CLI) | payer OTHER, SELFPAY ==
[2025-11-09 13:50] LABS: Creatine Kinase 328 U/L (30-135)
== END 2025-11-09 23:59 | disposition home or self-care (01) ==
LOC: LAB 13:01
PROVIDERS: PCP Nurse Practitioner Family; Visit Provider Family Medicine
DX: R74.8 Abnormal levels of other serum enzymes (principal)
CPT/HCPCS: 36415; 82550

== ENCOUNTER 2025-11-20 13:49 | Outpatient (CLI) | payer OTHER, SELFPAY ==
--- OUTSIDE RECORDS SUMMARY | 2025-10-02 09:40 | XMS_ITS | Encounter Summary ---
Author Organization Healthcare Address [facility] [place] [address] Care Team Providers Care Concrete Truck Driver Name Role Phone Rodolfo Rhoades MD Primary Care Provider [phone] So Caicedo LPN Unavailable Unavailable Reason for Visit * Reason Comments Hospital Follow Up Has an appointment w Jf navarro Dr on 10/12/2025 . Does need a refill on Gabapentin until appointment will Dr. Rhoades on 10/12/2025 Encounter Details Date Type Department Care Team (Latest Contact Info) Description 10/02/2025 9:40 AM EST Office Visit [facility] [address] [place] [address] Georgette Moore, DERRELL [address] [place] [address] Non-traumatic rhabdomyolysis (Primary Dx) Social [...] in a detention (including now)? No 08/09/2025 [facility] Utilities Answer Date Recorded In the past [...] documented in this encounter Functional Status * Over the past 2 weeks, how often have you been bothered by any of the following problems? Question Answer Date of Assessment Author Little interest or pleasure in doing things Not at all 10/02/2025 9:50 AM EST Jayde Conte Feeling down, depressed, or hopeless Several days 10/02/2025 9:50 AM EST Jayde Conte Patient Health Questionnaire -2 Score 1 10/02/2025 9:50 AM EST Jayde Conte * Question Answer Date of Assessment Author [...] Somewhat difficult 10/02/2025 9:50 AM Jayde Christian documented as of this encounter Miscellaneous Notes * Clinician Note [...] Description 12/08/2025 11:20 AM EST Office Visit [facility] [place] [address] Rodolfo Rhoades [place] [address] documented as of this encounter Visit Diagnoses Diagnosis Non-traumatic rhabdomyolysis- Primary documented in this encounter Additional Health Concerns Assessment Noted Time PHQ-9 Depression Total Score: 11 025 9:50 AM EST A fall risk assessment has been complete d for the patient 10/02/2025 9:55 AM EST A Body Mass Index follow-up plan has been documented for the patient 10/02/2025 10:21 AM EST documented as of this encounter Care Teams Concrete Truck Driver Relationship Specialty Start Date End Date Rodolfo Rhoades MD [address] [place] [address] PCP - General Family Medicine 02/02/25 So Caicedo LPN [employer] [place] [address] None TCM Nurse 09/07/25 10/07/25 documented as of this encounter
--- OUTSIDE RECORDS SUMMARY | 2025-10-05 11:00 | XMS_ITS | Encounter Summary ---
Author Organization Healthcare Address [address] [place] [address] Care Team Providers Care Financial Coach Name Role Phone Rodolfo Rhoades MD Primary Care Provider [phone] So Caicedo LPN Unavailable Unavailable Reason for Referral * Consultation (Routine) - Authorized Specialty Diagnoses / Procedures Referred By Contac t Referred To Contact Physical Therapy Diagnoses Non-traumatic rhabdomyolysis Elevated CK Generalized weakness [place] [address] Phone: tel: fax: Referral ID Status Reason Start Date Expiration Date Visits Requested Visits Authorized [id number] Authorized Consult and Treat 10/06/2025 04/07/2027 1 1 Scheduling Instructions [facility] [place] Reason for Visit * Reason Comments Follow-up Left leg bothersome more so than right, needs to get into PT and neurology Care Gap Closure Wants Flu and Pneumo sandra vaccines if possible; postpone Covid vaccine Encounter Details Date Type Department Care Team (Latest Contact Info) Description 10/05/2025 11:00 AM EST Office Visit [facility] [place] [address] [place] [address] Non-traumatic rhabdomyolysis (Primary Dx); Essential [...] in a prison (including now)? No 08/09/2025 [facility] Utilities Answer Date Recorded In the past 12 months has [employer] electric, gas, oil, or water company threatened [...] 10/05/2025 11:21 AM EST Mindy Holt * Question Answer Date of Assessment Author 1. Wish to be (Past 1 Month) No 025 11:21 AM EST Mindy Gudino 2. Non-Specific Active Suici omar Thoughts (Past 1 Month) No 10/05/2025 11:21 AM EST Mindy Gudino 6. Suicidal Behavior (Lifetime) No 5 11:21 AM EST Mindy Gudino documented as [...] the encounter: yes Note to patient: The Century Cures Act [...] Description 12/08/2025 11:20 AM EST Office Visit [address] [place] [address] Rodolfo Rhoades MD [address] [place] [address] Scheduled Referrals Name Type Priority Associated [...] - 99 mg/dL 10/05/2025 7:43 PM EST [facility] BUN, Plasma 9 7 - 21 mg/dL 10/05/2025 7:43 PM EST [facility] Creatinine, Plasma 0.58(L) 0.60 - 1.10 mg/dL 10/05/2025 7:43 PM [facility] BUN/Creatinine Ratio 16 10/05/2025 7:43 PM EST [facility] Sodium, Plasma 138 136 - 145 mmol/L 10/05/2025 7:43 PM [facility] Potassium, Plasma 4.3 3.6 - 4.9 mmol/L 10/05/2025 7:43 PM [facility] Chloride, Plasma 99 97 - 107 mmol/L 10/05/2025 7:43 PM [facility] CO2, Plasma 29 22 - 29 mmol/L 10/05/2025 7:43 PM [facility] Anion Gap 10 6 - 16 mmol/L 10/05/2025 7:43 PM [facility] Total Calcium, Plasma 9.7 8.9 - 10.2 mg/dL 10/05/2025 7:43 PM [facility] Total Protein 7.4 6.3 - 7.9 g/dL 10/05/2025 7:43 PM [facility] Albumin, Plasma 3.6 3.5 - 5.2 g/dL 10/05/2025 7:43 PM [facility] AST, Plasma 38(H) 10 - 35 U/L 10/05/2025 7:43 PM [facility] ALT, Plasma 19 10 - 35 U/L 10/05/2025 7:43 PM [facility] Alkaline Phosphatase, Plasma 130(H) 35 - 104 U/L 10/05/2025 7:43 PM [facility] Total Bilirubin, Plasma 0.3 0.2 - 1.1 mg/dL 10/05/2025 7:43 PM [facility] eGFRcr 111.8 mL/min/1.7 3m*2 10/05/2025 7:43 PM [facility] Comment:Reported eGFRcr in m L/min/1.73m2 is based the CKD-EPI 2020 equation that does not use a race coefficient. Blood Venous blood specimen / Unknown Venipuncture / Unknown 10/05/2025 12:07 PM EST 10/05/2025 12:08 PM EST us Rodolfo Rhoades MD LAB BLOOD ORDERABLES Final Res ult [facility] [address] [place] [address] * Creatine Kinase (CK), Total (10/05/2025 12:07 PM EST) Creatine Kinase, Plasma 85 37 - 168 U/L 10/05/2025 7:43 PM EST [facility] Blood Venous blood specimen / Unknown Venipuncture / Unknown 10/05/2025 12:07 PM EST 10/05/2025 12:08 PM EST us Rodolfo Rhoades MD LAB BLOOD ORDERABLES Final Res ult Performing Organization Address City/[facility] Co de Phone Number [facility] [address] [place] [address] documented in this encounter Visit Diagnoses Diagnosis [...] documented as of this encounter Care Teams Financial Coach Relationship Specialty Start Date End Date Rodolfo Rhoades MD [address] [place] [id number] PCP - General Family Medicine 02/02/25 So Caicedo LPN [employer] [place] [address] None TCM Nurse 09/07/25 10/07/25 documented as of this encounter
--- OUTSIDE RECORDS SUMMARY | 2025-11-01 10:40 | XMS_ITS | Encounter Summary ---
Author Organization [facility] [place] [address] Care Team Providers Care [employer] Name Role Phone Rodolfo Rhoades MD Primary Care Provider [phone] Keyonna Goff Unavailable Unavailable Reason for Referral * Referral to Case Management (Routine) - Authorized Specialty Diagnoses / Procedures Referred By Contac t Referred To Contact Case Management / Primary Care Diagnoses Transportation insecurity Rodolfo Rhoades MD [address] [place] [address] Phone: tel: fax: Referral ID Status Reason Start Date Expiration Date Visits Requested Visits Authorized [id number] Authorized Other Co-Managemen t of Problem 11/01/2025 05/03/2027 1 1 * Consultation (Routine) - Authorized Specialty Diagnoses / Procedures Referred By Contac t Referred To Contact Cardiology Diagnoses Chronic atrial fibrillation (CMS/HCC) Rodolfo Rhoades MD [facility] [place] [address] Phone: tel: fax: Referral ID Status Reason Start Date Expiration Date Visits Requested Visits Authorized [id number] Authorized Specialty Services Required 11/01/2025 05/03/2027 1 1 * Imaging (Routine) - Authorized Specialty Diagnoses / Procedures Referred By Contac t Referred To Contact Diagnoses Chronic nonintractable headache, unspecified headache type Procedures MR Head wo IV Contrast Rodolfo Rhoades MD [address] [place] [address] Phone: tel: fax: Referral ID Status Reason Start Date Expiration Date V isits Requested Visits Authorized [id number] Authorized 11/01/2025 05/03/2027 1 1 Reason for Visit * Reason Comments Weakness - Generalized 3 wk follow up - body hurts, always in pain. Also has sore throat, headaches are coming back worse. Nothing helps the pain. Encounter Details Date Type Department Care Team (Latest Contact Info) Description 11/01/2025 10:40 AM EST Office Visit [facility] [address] [place] [address] Rodolfo Rhoades MD [address] [place] [address] Sore throat (Primary Dx); Moderate persistent asthma without complication; Acute recurrent maxillary sinusitis; Fatigue, unspecified type; Acute upper respiratory infection, unspecified; Chronic nonintractable headache, unspecified headache type; Chronic atrial fibrillation (CMS/HCC); Essential hypertension; Non-traumatic rhabdomyolysis; Elevated CK; Transportation insecurity; Anemia, unspecified type Social History Tobacco Use Types Packs/Day Years Used Date Smoking Tobacco: Some Days Cigarettes 24 Started: 11/30/2001 Passive Smoke Exposure: Current Smokeless Tobacco: Never Tobacco Cessation:Ready to Q uit: No; Counseling Given: No Alcohol Use Standard Drinks/Week Comments Never 0 [...] medical appointments or from getting medications? Yes 11/02/2025 Lack of Transportation (Non-Medical) Not on file 11/02/2025 Housing Stability Vital Sign Answer Yovany e [...] in a long-term (including now)? No 08/09/2025 [facility] Utilities Answer Date Recorded In [...] Sign Reading Time Taken Comments Blood Pressure 92/64 11/01/2025 11:05 AM EST Pulse 83 11/01/2025 11:05 AM EST Temperature 36.7 C (98.1 F) 11/01/2025 11:05 AM EST Respiratory Rate 18 11/01/2025 11:05 AM EST Oxygen Saturation 97% 11/01/2025 11:05 AM EST Inhaled Oxygen Concentration - - Weight - - Height 162.6 cm (5' 4 ) 11/01/2025 11:05 AM EST Body Mass Index - - documented in this encounter Functional Status * Calculated C-SSRS Risk Score (Lifetime/Recent) Answer Date of Assessment Author No Risk Indicated 11/01/2025 11:08 AM EST Kayla Ayon * Question Answer Date of Assessment Author 1. Wish to be (Past 1 Month) No 025 11:08 AM EST Kayla Ayon 2. Non-Specific Active Suici omar Thoughts (Past 1 Month) No 11/01/2025 11:08 AM EST Kayla Ayon 6. Suicidal Behavior (Lifetime) No 11:08 AM EST Kayla Ayon documented as of this encounter Miscellaneous Notes * Clinician Note - Eloise Singletary RN - 11/01/2025 10:40 AM EST Pre-Visit Review Note The following information was reviewed with patient via phone prior to appointment with Arlin Gray 11.01.2025. Allergies Reviewed and up-to-date No new allergies to medication, food or latex. Immunizations Pended immunizations discussed with patient: None Additional immunizations discussed with patient: Prevnar 20, Tdap, Flu: patient wants to discuss these vaccines with her Provider before receiving them. Covid: patient declined. Medications Medications requiring provider review: Metoprolol Succinate: patient says she has been having episodic low pulse and low blood pressure. Iasked her to take her BP when she is having symptoms. Suboxone: patient says that this medication does nothing for her pain that makes her unable to sleep. Gabapentin: patient states this med doesn't seem to ease her pain anymore. Duloxetine: patient may need refills. Cholecalciferol: patient may need refills. Losartan: patient says she doesn't take this medication: she is not familiar with it. She says she takes Lisinopril? Pended medications needing to be refilled: Tylenol Mycostatin Albuterol Inhaler Fluticasone Nasal Wolf Additional notes: na Clinical Intervention: Immunization recommendations and Lab work needed (A1c, lipids, etc) Patient may need CBC with diff, Lipids, TSH with reflex, UA with reflex. Note abnormal cytoplasmic pattern Preferred Pharmacy: [facility] Additional Notes: Patient c/o pain, weakness, low BP and pulse. Patient requests a script for a new Blood Pressure Monitor and pulse OX. Patient verbalized understanding of Pre-Visit Review. Patient to follow up with provider at upcoming clinic visit. Eloise Singletary RN,[facility] [employer] Patient Support Services * Progress Notes - Rodolfo Rhoades MD - 11/01/2025 10:40 AM EST Office Progress Note Subjective Veronica Weiss is a 50 y.o. female who presents for Weakness - Generalized (3 wk follow up - body hurts, always in pain. Also has sore throat, headaches are coming back worse. Nothing helps the pain. ). History of Present Illness The patient presents for evaluation of rhabdomyolysis, pain management, palpitations, and suspectedstroke. She reports body aches, fearing strep throat. Lightheadedness has worsened over the past few days. Has been increaseing her independence but requiring use of her wheelchair to do so. Struggles with tasks like showering. Initiated physical therapy, hopeful for improvement. Distressing memory issues, weakness, and unsteadiness have continued but has felt off the last 2 days. Consistent body jerking movements since rhabdomyolysis diagnosis. Can sit up independently and transition between bed and couch but prefers sleeping on the couch due to bed discomfort. Has a hospital bed. Difficulty with manual tasks like food preparation, unable to stand for long periods. Severe pain in back, legs and hips. Sharp, burning leg pain, numbness, and decreased sensation, but retains mobility. Balance and coordination issues necessitate wheelchair use. Cognitive function issues cause anxiety. Frequent sleep disturbances, waking in severe pain. Gabapentin ineffective for pain; uses Tylenol for severe headaches but overwhelmed by frequency. Distressing palpitations or rapid heartbeats, described as atrial fibrillation-like episodes. Isn't taking metoprolol due to low blood pressure. 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 Occasional blood pressure drops, no current medication due to low levels. Previous sleep test led to oxygen therapy prescription needing renewal. Occasional chest pain, sharp burning leg pain extending upwards. Numbness in certain areas, but mobility retained. Social History: Diet: Reports a crazy diet and difficulty with food preparation. Sleep: Reports sleeping a lot but waking up in severe pain. Living Condition: Reports living in housing with poor conditions and concerns about mold exposure. Having trouble with transportation, lives in [place] and daughter has to drive. She is now with PT at [facility]. Is starting to feel achy again but isn't sure if she's coming down with something. Pain and sleep. Pain not controlled but on suboxone. Failed cymbalta due to side effects. Can't give amitriptyline due to arrythmia risks. Will try carbamazepine but can affect her INR. Body jerking since rhabdo. CK level was up to 97,720. Has moments she is able to use her right hand well and other times she isn't. Still unable to raise her left foot. Having her headaches come back. The following sections have been reviewed and updated during this encounter: Tobacco Allergies Meds Problems Med Hx Surg Hx Fam Hx Objective Blood pressure 92/64, pulse 83, temperature 36.7 ??C (98.1 ??F), temperature source Oral, resp. rate 18, height 1.626 m (5' 4 ), SpO2 97%, not currently . Body mass index is 23.86 kg/m??. Physical Exam Constitutional: Comments: In wheelchair, cachetic HENT: Head: Normocephalic and atraumatic. Right Ear: Tympanic membrane, ear canal and external ear normal. There is no impacted cerumen. Left Ear: Tympanic membrane, ear canal and external ear normal. There is no impacted cerumen. Nose: Congestion and rhinorrhea present. Mouth/Throat: Mouth: Mucous membranes are moist. Pharynx: Oropharynx is clear. Posterior oropharyngeal erythema present. No oropharyngeal exudate. Cardiovascular: Rate and Rhythm: Normal rate and regular rhythm. Heart sounds: Normal heart sounds. No murmur heard. Pulmonary: Effort: Pulmonary effort is normal. No respiratory distress. Breath sounds: Normal breath sounds. No wheezing or rhonchi. Musculoskeletal: Comments: Unable to perform left ankle dorsi flexion. Neurological: Mental Status: She is alert. Sensory: Sensory deficit present. Motor: Weakness present. Comments: Sensation decrease on both legs Psychiatric: Mood and Affect: Mood normal. Behavior: Behavior normal. Assessment/Plan Diagnoses and all orders for this visit: Sore throat - POCT Strep A PCR Moderate persistent asthma without complication - albuterol 108 (90 Base) MCG/ACT inhaler; Inhale 2 puffs as needed for shortness of breath or wheezing. Acute recurrent maxillary sinusitis - fluticasone (Flonase) 50 MCG/ACT nasal spray; Administer 1 spray into each nostril daily. Shake gently. Before first use, prime pump. After use, clean tip and replace cap. - Comprehensive Metabolic Panel, Plasma Fatigue, unspecified type - Comprehensive Metabolic Panel, Plasma - Thyroid Stimulating Hormone, Plasma - Free T4, Plasma - CBC and Differential Acute upper respiratory infection, unspecified - POCT SARS-CoV-2 COVID-19 Influenza A,B - POCT Strep A PCR Chronic nonintractable headache, unspecified headache type - MR Head wo IV Contrast; Future Chronic atrial fibrillation (CMS/HCC) - Ambulatory referral to Cardiology; Future Essential hypertension Non-traumatic rhabdomyolysis - Creatine Kinase (CK), Total Elevated CK - Creatine Kinase (CK), Total Other orders - acetaminophen (Tylenol) 500 MG tablet; Take 2 tablets by mouth 3 times a day. - nystatin (Mycostatin) 305380 UNIT/GM powder; Apply to groin twice a day. Keep area dry. Assessment & Plan 1. Rhabdomyolysis: - Generalized nerve pain and muscle aches, possibly related to previous rhabdomyolysis or another condition. - Creatine kinase levels normalized. - Ordered MRI to assess for new changes or underlying issues. - Ordered blood tests, including creatinine kinase, to rule out recurrence. 2. Pain management: - Gabapentin no longer effective. - Severe pain disrupts sleep and daily activities. - Referral to pain management discussed but concerns about transportation and physical therapy for further treatment. 3. Palpitations: Has A-fib - Episodes of palpitations or rapid heartbeats, described as atrial fibrillation-like episodes. - Referral to cardiology for evaluation and management. 4. Blood pressure management: - Occasional drops in blood pressure, no current medication. - Monitor blood pressure, consider medication adjustments if necessary. 5. Sleep apnea: - Previous sleep test led to oxygen therapy 6. Chest pain: - Occasional chest pain. - Referral to cardiology for evaluation and management. 7. Leg pain: - Sharp, burning leg pain extending upwards. - Referral to physical therapy to address leg pain and improve mobility. 8. Numbness: - Numbness in certain areas but retains mobility. - Ordered MRI to assess for underlying neurological issues. 9. Headache and left foot drop - Will order MRI for headache with neuro deficit not persistent since hospital stay. 10. Body aches - Will rule out flu and strep - Will check CK level Verbal consent was obtained to use ambient listening technology to assist in the documentation of the encounter: yes Will try carbamzapine and follow up in 4 weeks. Worried she's feeling worse as we don't know what triggered her rhambdo but it appears to be autoimmune. Note to patient: The Century Cures Act [...] and the clinical opinion of the practitioner. Late entry: Myalgias are coming back, creatinine kinase is going up without clear cause. Needs quick work up to determine cause of rhabdo and recurrent rise in CK level. Patient instructed to go to the ER. documented in this encounter Plan of Treatment Upcoming Encounters Date Type Department Care Team (Late st Contact Info) Description 12/08/2025 11:20 AM EST Office Visit [facility] [address] [place] [address] Rodolfo Rhoades MD [address] [place] [address] Scheduled Orders Name Type Priority Associated Diagnoses Orde r Schedule MR Head wo IV Contrast Imaging Routine Chronic nonintractable headache, unspecified headache type Expected: 11/01/2025 (Approximate), Expires: 05/05/2027 Scheduled Referrals Name Type Priority Associated Diagnoses Orde r Schedule Ambulatory referral to Cardiology Outpatient Referral Routine Chronic atrial fibrillation (CMS/HCC) 1 Occurrences starting 11/01/2025 until 05/05/2027 Ambulatory Referral to [facility] Work Outpatient Referral Routine Transportation insecurity 1 Occurrences starting 11/01/2025 until 05/05/2027 documented as of this encounter Procedures Procedure Name Priority Date/Time Associated Diagnosis Comments CREATINE KINASE, TOTAL, PLASMA Routine 11/01/2025 1:03 PM EST Non-traumatic rhabdomyolysis Elevated CK PROTHROMBIN TIME(PT) / INR Routine 11/01/2025 1:03 PM EST Chronic atrial fibrillation (CMS/HCC) CBC WITH AUTO DIFFERENTIAL Routine 11/01/2025 1:03 PM EST Fatigue, unspecified type TSH Routine 11/01/2025 1:03 PM EST Fatigue, unspecified type FREE T4, PLASMA Routine 11/01/2025 1:03 PM EST Fatigue, unspecified type IRON, PLASMA Routine 11/01/2025 1:03 PM EST Anemia, unspecified type FERRITIN, SERUM Routine 11/01/2025 1:03 PM EST Anemia, unspecified type COMPREHENSIVE METABOLIC PANEL, PLASMA Routine 11/01/2025 1:03 PM EST Acute recurrent maxillary sinusitis Fatigue, unspecified type POCT SARS COV2 COVID 19/INFLUENZA A,B Routine 11/01/2025 12:36 PM EST Acute upper respiratory infection, unspecified POCT STREP A PCR Routine 11/01/2025 12:3 4 PM EST Sore throat Acute upper respiratory infection, unspecified documented in this encounter Results * (ABNORMAL) Ferritin, Serum (11/01/2025 1:03 PM EST) Ferritin, Serum 331(H) 13 - 150 ng/mL 11/01/2025 7:21 PM EST [facility] Blood Venous blood specimen / Unknown Venipuncture / Unknown 11/01/2025 1:03 PM EST 11/01/2025 1:03 PM EST us Rodolfo Rhoades MD LAB BLOOD ORDERABLES Final Res ult [facility] [address] [place] [address] * Iron, Plasma (11/01/2025 1:03 PM EST) Iron, Plasma 79 30 - 160 ug/dL 11/01/2025 7:25 PM EST [facility] Blood Venous blood specimen / Unknown Venipuncture / Unknown 11/01/2025 1:03 PM EST 11/01/2025 1:03 PM EST Rodolfo Rhoades MD LAB BLOOD ORDERABLES Final Res ult Performing Organization Address [facility] Co de Phone Number [facility] [address] [place] [address] * (ABNORMAL) Protime-INR (11/01/2025 1:03 PM EST) Prothrombin Time 18.6(H) 12.0 - 14.3 sec LAB COAGULATION METHOD 11/01/2025 7:51 PM EST [facility] INR 1.5(H) 0.9 - 1.1 LAB COAGULATION METHOD 11/01/2025 7:51 PM EST [facility] Blood Venous blood specimen / Unknown Venipuncture / Unknown 11/01/2025 1:03 PM EST 11/01/2025 1:03 PM EST Narrative [facility] - 11/01/2025 7:51 PM EST OPTIMAL INR RANGES FOR PATIENT ON ORAL ANTICOAGULANT THERAPY Prevention of venous thromboembolism INR 2.0 to 3.0 In patients with heart disease: Atrial fibrillation INR 2.0 to 3.0 Valvular heart disease INR 2.0 to 3.0 Tissue heart valves INR 2.0 to 3.0 Mechanical prosthetic valves INR 2.5 to 3.5 Prevention of recurrent [place] INR 2.5 to 3.5 Rodolfo Rhoades MD LAB BLOOD ORDERABLES Final Res ult Performing Organization Address [facility] Co de Phone Number [facility] [address] [place] [address] * (ABNORMAL) Creatine Kinase (CK), Total (11/01/2025 1:03 PM EST) Creatine Kinase, Plasma 224(H) 37 - 168 U/L 11/01/2025 7:25 PM EST [facility] Blood Venous blood specimen / Unknown Venipuncture / Unknown 11/01/2025 1:03 PM EST 11/01/2025 1:03 PM EST us Rodolfo Rhoades MD LAB BLOOD ORDERABLES Final Res ult [facility] [address] [place] [address] * (ABNORMAL) CBC and Differential (11/01/2025 1:03 PM EST) WBC Count 9.43 3.70 - 10.30 10*3/uL LAB HEMATOLOGY METHOD 11/01/2025 7:00 PM EST [facility] RBC Count 4.43 3.90 - 5.20 10*6/uL LAB HEMATOLOGY METHOD 11/01/2025 7:00 PM EST [facility] HGB 13.1 11.2 - 15.7 g/dL LAB HEMATOLOGY METHOD 11/01/2025 7:00 PM EST [facility] HCT 42.0 34.0 - 45.0 % LAB HEMATOLOGY METHOD 11/01/2025 7:00 PM EST [facility] Platelet Count 314 155 - 369 10*3/uL LAB HEMATOLOGY METHOD 11/01/2025 7:00 PM EST [facility] MCV 95 79 - 98 fL LAB HEMATOLOGY METHOD 11/01/2025 7:00 PM EST [facility] MCH 29.6 26.0 - 32.0 pg LAB HEMATOLOGY METHOD 11/01/2025 7:00 PM EST [facility] MCHC 31.2 30.7 - 35.5 g/dL LAB HEMATOLOGY METHOD 11/01/2025 7:00 PM EST [facility] RDW 12.7 11.5 - 14.5 % LAB HEMATOLOGY METHOD 11/01/2025 7:00 PM EST [facility] MPV 10.6 8.8 - 12.5 fL LAB HEMATOLOGY METHOD 11/01/2025 7:00 PM EST [facility] nRBC 0.0 <=0.0 per 100 WBCs LAB HEMATOLOGY METHOD 11/01/2025 7:00 PM EST [facility] Differential Type Automated LAB HEMATOLOGY METHOD 11/01/2025 7:00 PM EST [facility] Neutrophils % 65 % LAB HEMATOLOGY METHOD 11/01/2025 7:00 PM EST [facility] Lymphocytes % 19 % LAB HEMATOLOGY METHOD 11/01/2025 7:00 PM EST [facility] Monocytes % 8 % LAB HEMATOLOGY METHOD 11/01/2025 7:00 PM EST [facility] Eosinophils % 8 % LAB HEMATOLOGY METHOD 11/01/2025 7:00 PM EST [facility] Basophils % 0 % LAB HEMATOLOGY METHOD 11/01/2025 7:00 PM EST [facility] Immature Granulocytes % 0 % LAB HEMATOLOGY METHOD 11/01/2025 7:00 PM EST [facility] Neutrophils Absolute 6.03 1.60 - 6.10 10*3/uL LAB HEMATOLOGY METHOD 11/01/2025 7:00 PM EST [facility] Lymphocytes Absolute 1.83 1.20 - 3.90 10*3/uL LAB HEMATOLOGY METHOD 11/01/2025 7:00 PM EST [facility] Monocytes Absolute 0.75 0.30 - 0.90 10*3/uL LAB HEMATOLOGY METHOD 11/01/2025 7:00 PM EST [facility] Eosinophils Absolute 0.75(H) 0.00 - 0.50 10*3/uL LAB HEMATOLOGY METHOD 11/01/2025 7:00 PM EST [facility] Basophils Absolute 0.04 0.00 - 0.10 10*3/uL LAB HEMATOLOGY METHOD 11/01/2025 7:00 PM EST [facility] Immature Granulocytes Absolute 0.03 0.00 - 0.06 10*3/uL LAB HEMATOLOGY METHOD 11/01/2025 7:00 PM EST [facility] Blood Venous blood specimen / Unknown Venipuncture / Unknown 11/01/2025 1:03 PM EST 11/01/2025 1:03 PM EST Narrative [facility] - 11/01/2025 7:00 PM EST Therapeutic decision making should be based on absolute values, rather than percentages. us Rodolfo Rhoades MD LAB BLOOD ORDERABLES Final Res ult [facility] [address] [place] [address] * Free T4, Plasma (11/01/2025 1:03 PM EST) Free T4, Plasma 1.3 0.8 - 1.7 ng/dL 11/01/2025 7:25 PM EST [facility] Blood Venous blood specimen / Unknown Venipuncture / Unknown 11/01/2025 1:03 PM EST 11/01/2025 1:03 PM EST Narrative [facility] - 11/01/2025 7:25 PM EST Free T4 Trimester Specific Ranges 1st Trimester 0.9 - 1.50 ng/dL 2nd Trimester 0.7 - 1.40 ng/dL 3rd Trimester 0.7 - 1.24 ng/dL Rodolfo Rhoades MD LAB BLOOD ORDERABLES Final Res ult Performing Organization Address City/[facility]/ZIP Co de Phone Number [facility] [address] [place] [address] * Thyroid Stimulating Hormone, Plasma (11/01/2025 1:03 PM EST) Thyroid Stimulating Hormone, Plasma 1.31 0.40 - 4.20 uIU/mL 11/01/2025 7:25 PM EST [facility] Blood Venous blood specimen / Unknown Venipuncture / Unknown 11/01/2025 1:03 PM EST 11/01/2025 1:03 PM EST Narrative [facility] - 11/01/2025 7:25 PM EST Trimester Specific Ranges TSH ( IU/mL) 1st Trimester 0.1 - 3.0 2nd Trimester 0.19 - 4.06 3rd Trimester 0.3 - 3.7 Rodolfo Rhoades MD LAB BLOOD ORDERABLES Final Res ult [facility] [address] [place] [address] * (ABNORMAL) Comprehensive Metabolic Panel, Plasma (11/01/2025 1:03 PM EST) Glucose, Plasma 69(L) 74 - 99 mg/dL 11/01/2025 7:25 PM EST [facility] BUN, Plasma 6(L) 7 - 21 mg/dL 11/01/2025 7:25 PM EST [facility] Creatinine, Plasma 0.64 0.60 - 1.10 mg/dL 11/01/2025 7:25 PM EST [facility] BUN/Creatinine Ratio 9 11/01/2025 7:25 PM EST [facility] Sodium, Plasma 136 136 - 145 mmol/L 11/01/2025 7:25 PM EST [facility] Potassium, Plasma 3.7 3.6 - 4.9 mmol/L 11/01/2025 7:25 PM EST [facility] Chloride, Plasma 99 97 - 107 mmol/L 11/01/2025 7:25 PM [facility] CO2, Plasma 27 22 - 29 mmol/L 11/01/2025 7:25 PM [facility] Anion Gap 10 6 - 16 mmol/L 11/01/2025 7:25 PM EST [facility] Total Calcium, Plasma 10.1 8.9 - 10.2 mg/dL 11/01/2025 7:25 PM [facility] Total Protein 7.8 6.3 - 7.9 g/dL 11/01/2025 7:25 PM [facility] Albumin, Plasma 3.9 3.5 - 5.2 g/dL 11/01/2025 7:25 PM [facility] AST, Plasma 102(H) 10 - 35 U/L 11/01/2025 7:25 PM [facility] ALT, Plasma 92(H) 10 - 35 U/L 11/01/2025 7:25 PM [facility] Alkaline Phosphatase, Plasma 146(H) 35 - 104 U/L 11/01/2025 7:25 PM [facility] Total Bilirubin, Plasma 0.5 0.2 - 1.1 mg/dL 11/01/2025 7:25 PM [facility] eGFRcr 109.2 mL/min/1.7 3m*2 11/01/2025 7:25 PM [facility] Comment:Reported eGFRcr in m L/min/1.73m2 is based the CKD-EPI 2020 equation that does not use a race coefficient. Blood Venous blood specimen / Unknown Venipuncture / Unknown 11/01/2025 1:03 PM EST 11/01/2025 1:03 PM EST us Rodolfo Rhoades MD LAB BLOOD ORDERABLES Final Res ult [facility] [address] [place] [address] * POCT SARS-CoV-2 COVID-19 Influenza A,B (11/01/2025 12:36 PM EST) POCT Influenza A PCR Not Detected Not Detected POCT Influenza B PCR Not Detected Not Detected POCT COVID 19 PCR Not Detected Not Detected POCT COVID/Flu A,B Kit Lot [id number] POCT COVID/FLU A,B Kit Expiration 01/27/2027 Nasopharyngeal Swab Nasopharyngeal structure / Unknown 11/01/2025 12:36 PM EST Rodolfo Rhoades MD POINT OF CARE TEST ENTER/EDIT ORDERABLES Final Result * POCT Strep A PCR (11/01/2025 12:34 PM EST) POCT Strep A PCR Not Detected Not Detected Kit Lot Number [id number] Kit Expiration Date 03/29/2027 Swab Structure of anterior region of neck / Unknown 11/01/2025 12:34 PM EST us Rodolfo Rhoades MD POINT OF CARE TEST ENTER/EDIT ORDERABLES Final Result documented in this encounter Visit Diagnoses Diagnosis Sore throat- Primary Acute pharyngitis Moderate persistent asthma without complication Acute recurrent maxillary sinusitis Fatigue, unspecified type Acute upper respiratory infection, unspecified Chronic nonintractable headache, unspecified headache type Chronic atrial fibrillation (CMS/HCC) Atrial fibrillation Essential hypertension Unspecified essential hypertension Non-traumatic rhabdomyolysis Elevated CK Other nonspecific abnormal serum enzyme levels Transportation insecurity Anemia, unspecified type documented in this encounter Additional Health Concerns Infection Onset Date Last Indicated Resolved Time COVID-19 Rule-Out 11/01/2025 11/01/2025 11/01/2025 12:36 PM EST Assessment Noted Time PHQ-9 Depression Total Score: 11 025 9:50 AM EST A fall risk assessment has been complete d for the patient 10/02/2025 9:55 AM EST A Body Mass Index follow-up plan has been documented for the patient 11/01/2025 2:39 PM EST documented as of this encounter Care Teams [employer] Relationship Specialty Start Date End Date Rodolfo Rhoades MD [address] [place] [phone] PCP - General Family Medicine 02/02/25 Keyonna Goff Community Health Worker 11/01/25 documented as of this encounter
--- OUTSIDE RECORDS SUMMARY | 2025-11-20 14:07 | XMS_ITS | Encounter Summary ---
Author Organization [facility] Address [facility] [place] [address] Care Team Providers Care Car Tracer Name Role Phone Georgette Moore APRN Primary Care Provider [phone] Veronica Goodwin LPN Unavailable Unavailable Margaret Ro Unavailable Unavailable Rodolfo Rhoades MD Primary Care Provider [phone] Mami Marianne Unavailable Unavailable Ariana Bagley Unavailable Unavailable So Caicedo [employer]BON SEQUESTRATION PLANT OPERATOR Unavailable Unavailable Keyonna Goff Unavailable Unavailable Reason for Visit * Reason Comments Med Refill Encounter Details Date Type Department Care Team (Late st Contact Info) Description 12/21/2021 Refill [facility] [address] [place] [address] Georgette Moore APRN [address] [place] [address] Chronic fatigue Social History Tobacco [...] Description 12/08/2025 11:20 AM EST Office Visit [facility] [address] [place] [address] Rodolfo Rhoades MD [address] [place] [address] documented as of this encounter [...] Rule-Out 08/21/2025 08/21/2025 08/21/20 2:03 PM EDT COVID-19 Rule-Out 11/01/2025 11/01/2025 11/01/2025 12:36 PM EST Assessment Noted Time A fall risk assessment has been complete d for the patient 08/02/2021 10:52 AM EDT documented as of this encounter Care Teams Car Tracer Relationship Specialty Start Date End Date Georgette Moore APRN [address] [place] [address] PCP - General 04/12/21 02/01/25 Rodolfo Rhoades MD [address] [place] [address] PCP - General Family Medicine 02/02/25 Veronica Goodwin LPN [employer] [place] [address] None TCM Nurse 07/25/24 08/25/24 Margaret Ro Community Health Worker 07/27/24 4 Wages, Marianne Clinical Supply Cataloguer 07/14/25 07/28/25 Ariana Bagley Community Health Worker 07/14/25 07/14/25 So Caiceod LPN [employer] [place] [address] None TCM Nurse 09/07/25 10/07/25 Keyonna Goff Community Health Worker 11/01/25 documented as of this encounter
--- OUTSIDE RECORDS SUMMARY | 2025-11-20 14:07 | XMS_ITS | Encounter Summary ---
Author Organization [facility] Address [address] [id number] Care Team Providers Care Outside Sales Consultant Name Role Phone Georgette Moore APRN Primary Care Provider [phone] Veronica Goodwin INSURANCE ACCOUNT ASSISTANT Unavailable Unavailable Margaret Ro Unavailable Unavailable Rodolfo Rhoades MD Primary Care Provider Mami Marianne Unavailable Unavailable Ariana Bagley Unavailable Unavailable So Caicedo INSURANCE ACCOUNT ASSISTANT Unavailable Unavailable Keyonna Goff Unavailable Unavailable Encounter Details Date Type Department Care Team (Late st Contact Info) Description 02/06/2022 Outside Procedure External Location [address] [place] [id number] Provider, Swapnil Monique Social History Tobacco Use [...] Department Care Team (Late Contact Info) Description 12/08/2025 11:20 AM EST [facility] [address] [place] [address] Rodolfo Rhoades MD [address] [place] [address] documented as of this encounter Procedures Procedure Name Priority Date/Time Associated Diagnosis Comments XR LUMBAR SPINE 2 OR 3 VIEWS 02/06/2022 2:09 PM EST documented in this encounter Results * XR Lumbar Spine 2 or 3 Views (02/06/2022 2:09 PM EST) Anatomical Region Laterality Modality Spine, L-spine Radiographic Tierra ging 02/06/2022 2:09 PM EST Narrative 02/06/2022 3:19 [place] [address] Name: VERONICA ALVAREZ Exam Date: 02/06/2022 : 1975 Age 46 Gender: F Physician: HORACE RYAN Facility: [facility] Facility HSV: Outpatient Exam: [id number] [...] [facility]. Legally authenticated by GADIEL DELEON 2022-02-06 15:07:32 Procedure Note Provider, [facility] - 02/06/[address] [id number] Name: VERONICA ALVAREZ Exam Date: 02/06/2022 : 1975 Age 46 Gender: F Physician: HORACE RYAN Facility: [facility] Facility HSV: Outpatient Exam: [id number] [...] [facility]. Legally authenticated by GADIEL DELEON 2022-02-06 15:07:32 Generic [employer] Provider IMG XR PROCEDURES Fi nal Result [...] 08/21/2025 08/21/2025 08/21/20 25 2:03 PM EDT COVID-19 Rule-Out 11/01/2025 11/01/2025 11/01/2025 12:36 PM EST Assessment Noted Time A fall risk assessment has been complete d for the patient 08/02/2021 10:52 AM EDT documented as of this encounter Care Teams Outside Sales Consultant Relationship Specialty Start Date End Date Georgette Moore APRN [address] [place] [address] PCP - General 04/12/21 02/01/25 Rodolfo Rhoades MD [address] [place] [address] PCP - General Family Medicine 02/02/25 Veronica Goodwin LPN [employer] [place] [address] None TCM Nurse 07/25/24 08/25/24 Margaret Ro Community Health Worker 07/27/24 4 WagesMarianne Clinical Chief Controller Station 07/14/25 07/28/25 Ariana Bagley Community Health Worker 07/14/25 07/14/25 So Caicedo LPN [employer] [address] None TCM Nurse 09/07/25 10/07/25 Keyonna Goff Community Health Worker 11/01/25 documented as of this encounter
--- OUTSIDE RECORDS SUMMARY | 2025-11-20 14:08 | XMS_ITS | Encounter Summary ---
Author Organization Healthcare Address [facility] [place] [address] Care Team Providers Care Traffic Agent Name Role Phone Rodolfo Rhoades MD Primary Care Provider [phone] So Caicedo LPN Unavailable Unavailable Keyonna Goff Unavailable Unavailable Encounter Details Date Type Department Care Team (Late st Contact Info) Description 09/20/2025 Results Follow-Up [facility] Medicine [address] [place] [address] Rodolfo Rhoades MD [address] [place] [address] Social History Tobacco Use Types [...] in a correction (including now)? No 08/09/2025 [facility] Utilities Answer Date Recorded In the [...] AM EST Office Visit [facility] [address] [place] [address] Rodolfo Rhoades MD [address] [place] [address] documented as of this [...] documented as of this encounter Care Teams Traffic Agent Relationship Specialty Start Date End Date Rodolfo Rhoades MD [address] [place] [address] PCP - General Family Medicine 02/02/25 So Caicedo LPN [employer] [place] [address] None TCM Nurse 09/07/25 10/07/25 Keyonna Goff Community Health Worker 11/01/25 documented as of this encounter
--- OUTSIDE RECORDS SUMMARY | 2025-11-20 14:08 | XMS_ITS | Encounter Summary ---
Author Organization Healthcare Address [address] [id number] Care Team Providers Care Maintenance Truck Driver Name Role Phone Rodolfo Rhoadse MD Primary Care Provider [phone] So Caicedo LPN Unavailable Unavailable Keyonna Goff Unavailable Unavailable Encounter Details Date Type Department Care Team (Late st Contact Info) Description 09/07/2025 Results Follow-Up [facility] Inpatient Pharmacy [address] [place] [phone] Annemarie Grover, [place] [address] Social History Tobacco Use Types Packs/Day Years [...] in a chcf (including now)? No 08/09/2025 [facility] [...] 1 10/02/2025 9:50 AM Jayde Dyer * Question Answer Date of Assessment Author [...] 11 10/02/2025 9:50 AM Jayde Dyer * Calculated C-SSRS Risk Score (Lifetime/Recent) Answer Date of Assessment Author No Risk Indicated 11/01/2025 11:08 AM Kayla Jones * How difficult have these problems made it for you to do your work, take care of things at home, or get along with other people? Answer Date of Assessment Author Somewhat difficult 10/02/2025 9:50 AM EST Bob williamson Jayde * Question Answer Date of Assessment Author 1. Wish to be (Past 1 Month) No 025 11:08 AM EST Kayla Ayon 2. Non-Specific Active Suici omar Thoughts (Past 1 Month) No 11/01/2025 11:08 AM EST Kayla Ayon 6. Suicidal Behavior (Lifetime) No 11:08 AM EST Kayla Ayon documented as of this encounter Plan of Treatment Upcoming Encounters Date Type Department Care Team (Late st Contact Info) Description 12/08/2025 11:20 AM EST Office Visit [facility] [address] [place] [address] Rodolfo Rhoades MD [address] [place] [address] documented as of this encounter [...] documented as of this encounter Care Teams Maintenance Truck Driver Relationship Specialty Start Date End Date Rodolfo Rhoades MD [address] [place] [address] PCP - General Family Medicine 02/02/25 So Caicedo LPN [employer] [place] [address] None TCM Nurse 09/07/25 10/07/25 Keyonna Goff Community Health Worker 11/01/25 documented as of this encounter
--- OUTSIDE RECORDS SUMMARY | 2025-11-20 14:08 | XMS_ITS | Encounter Summary ---
Author Organization Healthcare Address [address] [place] [address] Care Team Providers Care Core Sucker Name Role Phone Rodolfo Rhoades MD Primary Care Provider [phone] So Caicedo LPN Unavailable Unavailable Encounter Details Date Type Department Care Team (Latest Contact Info) Description 10/02/2025 Travel Social History Tobacco Use Types Packs/Day [...] any time in the past 12 [facility], were you homeless or living in a alf (including now)? No 08/09/2025 [facility] Utilities Answer Date Recorded In the past [...] Jayde Christian documented as of this encounter Plan of Treatment Upcoming Encounters Date Type Department Care Team (Late st Contact Info) Description 12/08/2025 11:20 AM GUS Office Visit [facility] [address] [place] [address] Rodolfo Rhoades MD [address] [place] [address] documented as of this encounter [...] documented as of this encounter Care Teams Core Sucker Relationship Specialty Start Date End Date Rodolfo Rhoades MD [address] [place] [address] PCP - General Family Medicine 02/02/25 So Caicedo LPN [employer] [place] [address] None TCM Nurse 09/07/25 10/07/25 documented as of this encounter
--- OUTSIDE RECORDS SUMMARY | 2025-11-20 14:08 | XMS_ITS | Encounter Summary ---
Author Organization Healthcare Address [address] [id number] Care Team Providers Care Supervisor Engine Repair Name Role Phone Rodolfo Rhoades MD Primary Care Provider [phone] So Caicedo LPN Unavailable Unavailable Keyonna Goff Unavailable Unavailable Encounter Details Date Type Department Care Team (Late st Contact Info) Description 08/08/2025 Outside Procedure External Location [address] [place] [address] [phone] Provider, Swapnil [place] Social History Tobacco Use Types Packs/Day Years [...] a nursing home (including now)? No 08/09/2025 [facility] Utilities Answer Date Recorded In [...] as of this encounter Functional Status * Question Answer Date of Assessment Author Precautions Fall risk 08/11/2025 10:00 PM EDT Neftaly Stewart RN * Calculated C-SSRS Risk Score (Lifetime/Recent) Answer Date of Assessment Author No Risk Indicated 08/11/2025 4:00 AM EDT Sherry Schulz II, RN * Question Answer Date of Assessment Author 1. Wish to be (Past 1 Month) No 025 4:00 AM EDT Andres Schulz II, RN 2. Non-Specific Active Suici omar Thoughts (Past 1 Month) No 08/11/2025 4:00 AM EDT Andres Schulz II, RN 6. Suicidal Behavior (Lifetime) No 4:00 AM EDT Andres Schulz II, RN documented as of this encounter Mental Status * Question Answer Entry Date Author Precautions Fall risk 08/11/2025 10:00 PM EDT Neftaly Stewatr RN documented in this encounter Plan of Treatment Upcoming Encounters Date Type Department Care Team (Late st Contact Info) Description 12/08/2025 11:20 AM EST Office Visit [facility] [address] [place] [address] Rodolfo Rhoades MD [address] [place] [address] documented as of this encounter Procedures Procedure Name Priority Date/Time Associated Diagnosis Comments CT HIP LEFT W IV CONTRAST 08/08/2025 10:23 AM EDT documented in this encounter Results * CT Hip Left w IV Contrast (08/08/2025 10:23 AM EDT) Anatomical Region Laterality Modality Lower Extremities, Hip Left Computed Tomography 08/08/2025 10:2 3 AM EDT Narrative 08/08/2025 3:06 [place] [address] Name: HAILEY ALVAREZ Exam Date: 08/08/2025 : 1975 Age 49 years Gender: F Physician: LOBO LOWERY Facility: [facility] Facility HSV: Inpatient Exam: CT LOWER [...] Colin 2025-08-08 15:01:48 Procedure Note Provider, Generic [place] - 08/08/2025 [place] [address] Name: HAILEY ALVAREZ Exam Date: 08/08/2025 : 1975 Age 49 years Gender: F Physician: LOBO LOWERY Facility: [facility] Facility HSV: Inpatient Exam: CT LOWER EXT WITH LT EXAM: CT LOWER EXTREMITY WITH IV CONTRAST LEFT HISTORY: fall, 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 COMPARISON: None. Procedure: Thin section axial images were obtained through the lower extremities after the administration of intravenous contrast..Reconstructed images in the sagittal and coronal planes were reviewed. [facility] use dose modulation, iterative [...] Clive Posadas 08/08/2025 Thank you for referring [facility] to [facility] Legally authenticated by AVI Colin 2025-08-08 15:01:48 us Generic [place] Provider IMG CT PROCEDURES Fi nal Result [...] as of this encounter Care Teams Supervisor Engine Repair Relationship Specialty Start Date End Date Rodolfo Rhoades MD [address] [place] [address] PCP - General Family Medicine 02/02/25 So Caicedo LPN VALUE[employer] [place] [address] None TCM Nurse 09/07/25 10/07/25 Keyonna Goff Community Health Worker 11/01/25 documented as of this encounter
--- OUTSIDE RECORDS SUMMARY | 2025-11-20 14:08 | XMS_ITS | Encounter Summary ---
Author Organization Healthcare Address [place] [address] Care Team Providers Care Wad Blanking Press Adjuster Name Role Phone Georgette Moore APRN Primary Care Provider [phone] Rodolfo Rhoades MD Primary Care Provider [phone] Wages, Marianne Unavailable Unavailable Ariana Bagley Unavailable Unavailable So Caicedo LPN Unavailable Unavailable Keyonna Goff Unavailable Unavailable Reason for Visit * Reason Comments Med Refill Encounter Details Date Type Department Care Team (Late st Contact Info) Description 11/28/2024 Refill [facility] [address] [place] [address] Imelda Burgos APRN [address] [place] [address] COPD exacerbation (CMS/HCC); Cough with hemoptysis Social History Tobacco Use Types Packs/Day Years Used Date Smoking Tobacco: Every Day Cigarettes 12 23 Started: 2001 Passive Smoke Exposure: Current Smokeless [...] Description 12/08/2025 11:20 AM EST Office Visit [facility] [address] [place] [address] Rodolfo Rhoades MD [address] [place] [address] documented as of this encounter Visit Diagnoses Diagnosis COPD exacerbation ([facility]) Obstructive chronic bronchitis with exacerbation Cough with [...] documented as of this encounter Care Teams Wad Blanking Press Adjuster Relationship Specialty Start Date End Date Georgette Moore APRN [address] [place] [address] PCP - General 04/12/21 02/01/25 Rodolfo Rhoades MD [address] [place] [address] PCP - General Family Medicine 02/02/25 WagesMarianne Clinical Airport Operations Specialist 07/14/25 07/28/25 Ariana Bagley Community Health Worker 07/14/25 07/14/25 So Caicedo LPN [employer] [address] None TCM Nurse 09/07/25 10/07/25 Keyonna Goff Community Health Worker 11/01/25 documented as of this encounter
--- OUTSIDE RECORDS SUMMARY | 2025-11-20 14:08 | XMS_ITS ---
Author Organization [facility] Address [address] [place] [address] Care Team Providers Care Accounts Payable Processor Name Role Phone Rodolfo Rhoades MD Primary Care Provider [phone] Keyonna Goff Unavailable Unavailable Community Health Work Status:Active (Active) Program category:Care Coordination Start date:11/01/2025 Enrollment date:11/02/2025 Overview This episode type is for outpatient Community Health Workers enrolling patients in their program. Case Team Name Relationship Phone Keyonna Goff(Responsible Staff) Community a lth Worker Continued Care and Services Coordination
--- OUTSIDE RECORDS SUMMARY | 2025-11-20 14:08 | XMS_ITS | Encounter Summary ---
Author Organization Healthcare Address [address] [phone] Care Team Providers Care Movie Stunt Performer Name Role Phone Rodolfo Rhoades MD Primary Care Provider [phone] So Caicedo LPN Unavailable Unavailable Keyonna Goff Unavailable Unavailable Encounter Details Date Type Department Care Team (Late st Contact Info) Description 08/07/2025 Outside Procedure External Location [address] [place] [address] [phone] Provider, Swapnil [place] Social History Tobacco Use Types Packs/Day Years [...] [facility] (including now)? No 08/09/2025 [facility] Utilities Answer Date Recorded In the [...] * Question Answer Date of Assessment Author Sagar Fall risk;[facility] 08/10/2025 8:00 PM EDT Andres Schulz II, RN * Calculated C-SSRS Risk Score (Lifetime/Recent) Answer Date of Assessment Author No Risk Indicated 08/10/2025 8:00 PM EDT Sherry Schulz II, RN * Question Answer Date of Assessment Author 1. Wish to be (Past 1 Month) No 025 8:00 PM EDT Andres Schulz II, RN 2. Non-Specific Active Suici omar Thoughts (Past 1 Month) No 08/10/2025 8:00 PM EDT Andres Schulz II, RN 6. Suicidal Behavior (Lifetime) No 8:00 PM EDT Andres Schulz II, RN documented as of this encounter Mental Status * Question Answer Entry Date Author Sagar Fall risk;[facility] 08/10/2025 8:00 PM EDT Andres Schulz II, RN documented in this encounter Plan of Treatment Upcoming Encounters Date Type Department Care Team (Late st Contact Info) Description 12/08/2025 11:20 AM EST Office Visit [address] [address] Rodolfo Rhoades MD [address] [place] [address] documented as of this encounter Procedures Procedure Name Priority Date/Time Associated Diagnosis Comments ECHO, ADULT TRANSTHORACIC LIMITED W/ CONTRAST 08/07/2025 6:38 AM EDT documented in this encounter Results * Echo, Adult Transthoracic Limited w/ Contrast (08/07/2025 6:38 AM EDT) Anatomical Region Laterality Modality Ultrasound 08/07/2025 6:38 AM EDT Narrative 08/07/2025 12:51 PM EDT [address] [address] Name: VERONICA ALVAREZ Exam Date: 08/07/2025 : 1975 Age 49 years Gender: F Physician: JOSSE MONTENEGRO Facility: [facility] Facility HSV: Inpatient Exam: ECHO W [...] stenosis with a valve area of 1.34 faceter (Peak grad=31mmHg, Mean grad=16mmHg, LVOT grady=2.00cm, LVOT TVI=14.2cm, Ao TVI=33.3cm). The dimensionless index is 0.43. AV peak qndnkaxr=476mq/sec. There is a Mechanical AV prosthesis. Tricuspid [...] Thank you for referring VERONICA ALVAREZ to [facility]. Legally authenticated by PATTIE Yun 2025-08-07 12:49:32 Procedure Note Provider, Generic [place] - 08/07/[address] [address] Name: VERONICA ALVAREZ Exam Date: 08/07/2025 : 1975 Age 49 years Gender: F Physician: JOSSE MONTENEGRO Facility: [facility] Facility HSV: Inpatient Exam: ECHO W [...] stenosis with a valve area of 1.34 faceter (Peak grad=31mmHg, Mean grad=16mmHg, LVOT grady=2.00cm, LVOT TVI=14.2cm, Ao TVI=33.3cm). The dimensionless index is 0.43. AV peak vmqxswtl=442pv/sec. There is a Mechanical AV prosthesis. Tricuspid [...] Thank you for referring VERONICA ALVAREZ to [facility]. Legally authenticated by PATTIE Yun 2025-08-07 12:49:32 Generic [place] Provider CV ECHO PROCEDURES F inal Result [...] documented as of this encounter Care Teams Movie Stunt Performer Relationship Specialty Start Date End Date Rodolfo Rhoades MD [facility] [place] [address] PCP - General Family Medicine 02/02/25 So Caicedo LPN VALUE[employer] [place] [address] None TCM Nurse 09/07/25 10/07/25 Keyonna Goff Community Health Worker 11/01/25 documented as of this encounter
--- OUTSIDE RECORDS SUMMARY | 2025-11-20 14:08 | XMS_ITS | Encounter Summary ---
Author Organization [facility] Address [address] [id number] Care Team Providers Care Skin Care Specialist Name Role Phone Georgette Moore APRN Primary Care Provider [phone] Vreonica Goodwin STEEL TESTER Unavailable Unavailable Margaret Ro Unavailable Unavailable Rodolfo Rhoades MD Primary Care Provider [phone] Mami Marianne Unavailable Unavailable Ariana Bagley Unavailable Unavailable So Caicedo STEEL TESTER Unavailable Unavailable Keyonna Goff Unavailable Unavailable Encounter Details Date Type Department Care Team (Late st Contact Info) Description 02/06/2022 Outside Procedure External Location [address] [place] [address] [phone] Provider, Swapnil Monique Social History Tobacco Use [...] Description 12/08/2025 11:20 AM EST Office Visit [facility] [address] [place] [address] Rodolfo Rhoades MD [address] [place] [address] documented as of this encounter Procedures Procedure Name Priority Date/Time Associated Diagnosis Comments XR THORACIC SPINE 3 VIEWS 02/06/2022 2:09 PM EST documented in this encounter Results * XR Thoracic Spine 3 Views (02/06/2022 2:09 PM EST) Anatomical Region Laterality Modality Spine, T-spine Radiographic Tierra ging 02/06/2022 2:09 PM EST Narrative 02/06/2022 3:19 [place] [address] Name: VERONICA ALVAREZ Exam Date: 02/06/2022 : 1975 Age 46 Gender: F Physician: HORACE RYAN Facility: [facility] Facility HSV: Outpatient Exam: THORACIC SPINE [...] Thank you for referring VERONICA ALVAREZ to [facility]. Legally authenticated by GADIEL DELEON 2022-02-06 15:08:18 Procedure Note Provider, [facility] - 02/06/2022 [place] [address] Name: VERONICA ALVAREZ Exam Date: 02/06/2022 : 1975 Age 46 Gender: F Physician: HORACE RYAN Facility: [facility] Facility HSV: Outpatient Exam: THORACIC SPINE [...] Thank you for referring VERONICA ALVAREZ to [facility]. Legally authenticated by GADIEL DELEON 2022-02-06 15:08:18 Generic [place] Provider IMG XR PROCEDURES Fi nal Result [...] documented as of this encounter Care Teams Skin Care Specialist Relationship Specialty Start Date End Date Georgette Moore APRN [address] [place] [address] PCP - General 04/12/21 02/01/25 Rodolfo Rhoades MD [address] [place] [address] PCP - General Family Medicine 02/02/25 Veronica Goodwin LPN VALUE-BASED TRANSFORMATION PROGRAM [address] [id number] None TCM Nurse 07/25/24 08/25/24 Margaret Ro Community Health Worker 07/27/24 4 Wages, Marianne Clinical Permanent Mold Supervisor 07/14/25 07/28/25 Ariana Bagley Community Health Worker 07/14/25 07/14/25 So Caicedo LPN VAL[employer] [address] None TCM Nurse 09/07/25 10/07/25 Keyonna Goff Community Health Worker 11/01/25 documented as of this encounter
--- OUTSIDE RECORDS SUMMARY | 2025-11-20 14:08 | XMS_ITS | Encounter Summary ---
Author Organization Healthcare Address [address] [id number] Care Team Providers Care Rehab Aide Name Role Phone Rodolfo Rhoades MD Primary Care Provider [phone] So Caicedo LPN Unavailable Unavailable Keyonna Goff Unavailable Unavailable Encounter Details Date Type Department Care Team (Late st Contact Info) Description 08/08/2025 Outside Procedure External Location [address] [place] [address] [phone] Provider, Swapnil [place] Social History Tobacco Use Types Packs/Day Years [...] a nursing home (including now)? No 08/09/2025 [facility] Utilities Answer Date Recorded In [...] Question Answer Entry Date Author Sagar Fall risk 08/11/2025 10:00 PM EDT Neftaly [place] RN documented in this encounter Plan of Treatment Upcoming Encounters Date Type Department Care Team (Late st Contact Info) Description 12/08/2025 11:20 AM EST Office Visit [facility] [address] [place] [address] Rodolfo Rhoades MD [address] [place] [address] documented as of this encounter Procedures Procedure Name Priority Date/Time Associated Diagnosis Comments CT ABDOMEN PELVIS W IV CONTRAST 08/08/2025 10:24 AM EDT documented in this encounter Results * CT Abdomen Pelvis w IV Contrast (08/08/2025 10:24 AM EDT) Anatomical Region Laterality Modality Abdomen, Pelvis Computed Tomogra phy 08/08/2025 10:2 4 AM EDT Narrative [facility] [address] [place] [address] Name: VERONICA ALVAREZ Exam Date: 08/08/2025 : 1975 Age 49 years Gender: F Physician: LOBO LOWERY Facility: [facility] Facility HSV: Inpatient Exam: CT ABD [...] Posadas 08/08/2025 Thank you for referring VERONICA ALVAREZ to [facility]. Legally authenticated by AVI Colin 2025-08-08 14:56:42 Procedure Note Provider, Generic [facility] 08/08/2025 [place] [address] Name: VERONICA ALVAREZ Exam Date: 08/08/2025 : 1975 Age 49 years Gender: F Physician: LOBO LOWERY Facility: [facility] Facility HSV: Inpatient Exam: CT ABD PEL W EXAMINATION: CT ABDOMEN PELVIS WITH IV CONTRAST HISTORY: fall, inability to move left leg, severe rhabdomyolysis, r/ofx. COMPARISON: None. TECHNIQUE: Contiguous axial images through the abdomen and pelvis were acquired following the administration of intravenous contrast.Reconstructed images in the coronal and sagittal planes were reviewed. CT [facility] use dose modulation, iterative reconstruction and/or [...] Posadas 08/08/2025 Thank you for referring VERONICA ALVAREZ to [facility]. Legally authenticated by AVI Colin 2025-08-08 14:56:42 Generic [place] Provider IMG CT PROCEDURES Fi nal Result [...] documented as of this encounter Care Teams Rehab Aide Relationship Specialty Start Date End Date Rodolfo Rhoades MD [address] [place] [phone] PCP - General Family Medicine 02/02/25 So Caicedo LPN VALUE-BASED [place] [address] None TCM Nurse 09/07/25 10/07/25 Keyonna Goff Community Health Worker 11/01/25 documented as of this encounter
--- OUTSIDE RECORDS SUMMARY | 2025-11-20 14:08 | XMS_ITS | Encounter Summary ---
Author Organization Healthcare Address [facility] [place] [address] Care Team Providers Care Fire Chief Name Role Phone Rodolfo Rhoades MD Primary Care Provider [phone] So Caicedo LPN Unavailable Unavailable Encounter Details Date Type Department Care Team (Late st Contact Info) Description 09/08/2025 Telephone [facility] [address] [place] [address] Rodolfo Rhoades MD [address] [place] [address] Social History [...] time in the past [address] [facility], were you homeless or living in a fci (including now)? No 08/09/2025 [facility] Utilities Answer Date Recorded In the [...] Unloaded or Locked Away Not on file 08/ PHQ-2A Answer Date Recorded Patient Health Questionnaire-2 [...] AM Jayde Dyer Feeling tired or having yseika le energy Nearly every day 10/02/2025 9:50 [...] 10/05/2025 11:21 AM EST Mindy Holt * How difficult have these problems made it for you to do your work, take care of things at home, or get along with other people? Answer Date of Assessment Author Somewhat difficult 10/02/2025 9:50 AM EST Jayde Mack * Question Answer Date of Assessment Author 1. Wish to be (Past 1 Month) No 025 11:21 AM EST Mindy uGdino 2. Non-Specific Active Suici omar Thoughts (Past 1 Month) No 10/05/2025 11:21 AM EST Mindy Gudino 6. Suicidal Behavior (Lifetime) No 11:21 AM [...] beoverbooked with him instead. Best contact number: [phone] (mobile) Optimal time of day to reach [...] Description 12/08/2025 11:20 AM EST Office Visit [facility] [address] [place] [address] Rodolfo Rhoades MD [address] [place] [address] documented as of this encounter [...] as of this encounter Care Teams Fire Chief Relationship Specialty Start Date End Date Rodolfo Rhoades MD [address] [place] [address] PCP - General Family Medicine 02/02/25 So Caicedo LPN VALUE-BASED [place] [address] None TCM Nurse 09/07/25 10/07/25 documented as of this encounter
--- OUTSIDE RECORDS SUMMARY | 2025-11-20 14:08 | XMS_ITS | Encounter Summary ---
Author Organization Healthcare Address [address] [place] [address] Care Team Providers Care Firer Diesel Locomotive Name Role Phone Rodolfo Rhoades MD Primary Care Provider [phone] Wages, Marianne Unavailable Unavailable Ariana Bagley Unavailable Unavailable So Caicedo LPN Unavailable Unavailable Keyonna Goff Unavailable Unavailable Reason for Visit * Reason Comments Med Refill Encounter Details Date Type Department Care Team (Late st Contact Info) Description 07/07/2025 Refill [facility] [address] [place] [address] Rodolfo Rhoades MD [address] [place] [address] Social History Tobacco Use Types Packs/Day Years Used Date Smoking Tobacco: Every Day Cigarettes 24 Started: 2001 Passive Smoke Exposure: Current Smokeless [...] Recorded In the past 12 months has [employer] electric, gas, oil, or water company threatened [...] EST Office Visit [facility] Medicine [address] [place] [address] Rodolfo Rhoades MD [address] [place] [address] documented as of this encounter Visit Diagnoses Not on filedocumented in this encounter Additional Health Concerns Infection Onset Date Last Indicated Resolved Time COVID-19 Rule-Out 08/09/2025 08/09/2025 08/10/2025 3:03 PM EDT Respiratory Rule-Out 08/09/2025 08/09/2025 025 5:51 PM EDT Meningitis Rule-Out 08/21/2025 08/21/202508/21/20 25 2:03 PM EDT COVID-19 Rule-Out 11/01/2025 11/01/2025 11/01/2025 12:36 PM EST Assessment Noted Time PHQ-9 Depression Total Score: 0 11/16/20 11:05 AM EST A fall risk assessment has been complete d for the patient 03/19/2023 1:57 PM EDT A Body Mass Index follow-up plan has been documented for the patient 06/08/2025 12:14 AM EDT documented as of this encounter Care Teams Firer Diesel Locomotive Relationship Specialty Start Date End Date Rodolfo Rhoades MD [address] [place] [address] PCP - General Family Medicine 02/02/25 Marianne Bolaños Clinical Vending Route Servicer 07/14/25 07/28/25 Ariana Bagley Community Health Worker 07/14/25 07/14/25 So Caicedo LPN VALUE-BASED [place] [address] None TCM Nurse 09/07/25 10/07/25 Keyonna Goff Community Health Worker 11/01/25 documented as of this encounter
--- OUTSIDE RECORDS SUMMARY | 2025-11-20 14:08 | XMS_ITS | Encounter Summary ---
Author Organization [facility] Address [address] [phone] Care Team Providers Care Branner Machine Tender Name Role Phone Georgette Moore APRN Primary Care Provider [phone] Veronica Goodwin TRAFFIC RATE COMPUTER Unavailable Unavailable Margaret Ro Unavailable Unavailable Rodolfo Rhoades MD Primary Care Provider [phone] Mami Marianne Unavailable Unavailable Ariana Bagley Unavailable Unavailable So Caicedo TRAFFIC RATE COMPUTER Unavailable Unavailable Keyonna Goff Unavailable Unavailable Encounter Details Date Type Department Care Team (Late st Contact Info) Description 02/06/2022 Outside Procedure External Location [address] [place] [phone] Provider, Swapnil Monique Social History Tobacco Use [...] Description 12/08/2025 11:20 AM EST Office Visit [facility] [address] [place] [address] Rodolfo Rhoades MD [address] [place] [address] documented as of this encounter Procedures Procedure Name Priority Date/Time Associated Diagnosis Comments XR CERVICAL SPINE 2 OR 3 VIEWS 02/06/2022 2:09 PM EST documented in this encounter Results * XR Cervical Spine 2 or 3 Views (02/06/2022 2:09 PM EST) Anatomical Region Laterality Modality Spine, C-spine Radiographic Tierra ging 02/06/2022 2:09 PM EST Narrative 02/06/2022 3:21 PM EST [address] [address] Name: VERONICA ALVAREZ Exam Date: 02/06/2022 : 1975 Age 46 Gender: F Physician: HORACE RYAN Facility: [facility] Facility HSV: Outpatient Exam: CERVICAL SPINE [...] for referring VERONICA ALVAREZ to [facility]. Legally authenticated by GADIEL DELEON 2022-02-06 15:08:51 Procedure Note Provider, Generic [place] - 02/06/[address] [place] [address] Name: VERONICA ALVAREZ Exam Date: 02/06/2022 : 1975 Age 46 Gender: F Physician: HORACE RYAN Facility: [facility] Facility HSV: Outpatient Exam: CERVICAL SPINE [...] ESTHER RAMESH 02/06/2022 Thank you for referring VEROINCA ALVAREZ to [facility]. Legally authenticated by GADIEL DELEON 2022-02-06 15:08:51 us Generic [place] Provider IMG XR PROCEDURES Fi nal Result [...] documented as of this encounter Care Teams Branner Machine Tender Relationship Specialty Start Date End Date Georgette Moore APRN [address] [place] [address] PCP - General 04/12/21 02/01/25 Rodolfo Rhoades MD [address] [place] [address] PCP - General Family Medicine 02/02/25 Veronica Goodwin LPN VALUE-[place] [place] [address] None TCM Nurse 07/25/24 08/25/24 Margaret Ro Community Health Worker 07/27/24 4 WagesMarianne Clinical Egg Caser 07/14/25 07/28/25 Ariana Bagley Community Health Worker 07/14/25 07/14/25 So Caicedo LPN VALUE[employer] [address] None TCM Nurse 09/07/25 10/07/25 Keyonna Goff Community Health Worker 11/01/25 documented as of this encounter
--- OUTSIDE RECORDS SUMMARY | 2025-11-20 14:09 | XMS_ITS | Encounter Summary ---
Author Organization Healthcare Address [address] [id number] Care Team Providers Care Retail Leader Name Role Phone Rodolfo Rhoades MD Primary Care Provider [phone] Keyonna Goff Unavailable Unavailable Reason for Visit * Reason Comments Chw/Eldercare Encounter Details Date Type Department Care Team (Late st Contact Info) Description 11/02/2025 Patient Outreach POPULATION HEALTH [address] [facility] [address], [address] [place] [address] Keyonna Goff Chw/Eldercare Social History Tobacco Use Types Packs/Day Years [...] in a mcc (including now)? No 08/09/2025 [facility] Utilities Answer Date Recorded In the [...] encounter Miscellaneous Notes * Progress Notes - Keyonna Goff D - 11/02/2025 10:40 AM EST CHW Initial Encounter Note 11/02/2025 Urgent or Non-Urgent Referral: Non Urgent Delivery Room Supervisor: No Preferred Language: Gibraltarian Delivery Room Supervisor ID: N/A Outreach 1: 11/01/25 Outreach 2: 11/02/25 Contact Methods: Phone SDOH Pre-Assessment/Health Maintenance: Transportation: [access to transportation, issues, etc.] SDOH Overview: Per their pt's provider, Rodolfo Rhoades MD, pt has transportation insecurity. SDOH Intervention: Pt called and left the CHW a voicemail returning their call from yesterday whilethe CHW was working on another chart. CHW called the pt back to discuss their SDOH needs and the CHW program. Pt advised that they have acar in their name, but it is need of a tune up and repairs. Pt cannot drive at the moment either due to their health. CHW advised the pt of [employer]) and that they may be ableto get an exception for their transportation needs if they are unable to drive at this time. CHW urged the pt to call [employer] to see if they could send a form to the pt's PCP for assistance in getting approved for transportation for Medicaid related transportation. CHW advised the pt to let them know if they need any assistance in this matter. 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 CHW advised the pt to check with the child's family resource center for suggestionson resources for the child as well as their Medicaid provider's Member Services line to see if theymay have any Valued Added Member benefits available. Pt advised they have a conference scheduled with the child's school today and would ask about resources. Pt is also going to check with their Medicaid provider to see if there are any additional benefits available to them. CHW advised the pt to feel free to reach out at any time if they have any questions, needs arise, or need assistance. CHW advised of their direct line and that they will follow up with the pt in the next week. Pt enrolled in CHW Program: Yes Next follow-up scheduled: 11/09/25 Notes for next follow-up: N/A documented in this encounter Plan of Treatment Upcoming Encounters Date Type Department Care Team (Late st Contact Info) Description 12/08/2025 11:20 AM EST Office Visit [facility] [address] [place] [address] Rodolfo Rhoades MD [address] [place] [address] documented as of this encounter [...] documented as of this encounter Care Teams Retail Leader Relationship Specialty Start Date End Date Rodolfo Rhoades MD [address] [place] [address] PCP - General Family Medicine 02/02/25 Keyonna Goff Community Health Worker 11/01/25 documented as of this encounter
--- OUTSIDE RECORDS SUMMARY | 2025-11-20 14:09 | XMS_ITS | Encounter Summary ---
Author Organization [facility] Address Formerly named [facility] [place] [address] Care Team Providers Care Engineer/Conductor Name Role Phone Rodolfo Rhoades MD Primary Care Provider [phone] Keyonna Goff Unavailable Unavailable Reason for Visit * Reason Onset Date Comments HCN Paperwork/Documentation Request 11/02/2025 Encounter Details Date Type Department Care Team (Late st Contact Info) Description 11/02/2025 Telephone [facility] [address] [place] [address] Rodolfo Rhoades MD [address] [place] [address] HCN Paperwork/Documentation Request Social History Tobacco [...] any time in the past 12 m [facility], were you homeless or living in a skilled nursing (including now)? No 08/09/2025 [facility] Utilities Answer Date Recorded In the past 12 months has th e [place], gas, oil, or water [email or web address] threatened to shut off services in your [...] encounter Miscellaneous Notes * Telephone Encounter - Kayla Gee - 11/03/2025 3:36 PM EST Order, authorization, demographics, and insurance card faxed. * Telephone Encounter - Margaux Calero - 11/02/2025 4:09 PM EST Paperwork/Documentation Request Patient Name: Veronica Weiss Type: The order sent also needs needs insurance auth and approval codes and expiration for MRI of the head w/o/ [facility] Due Date: 11/02/2025 Send To: [facility] [phone] Best contact number: Other: [phone] Optimal time of day to reach caller: ANYTIME Additional comments/information from caller: None Note: Please do not reply to this message. Follow-up communication and further actions as a result of this message need to be communicated with the patient directly, if the patient is not active onMyChart. If the patient is active on MyChart, they will receive notification of the communication/outcome via [employer]. documented in this encounter Plan of Treatment Upcoming Encounters Date Type Department Care Team (Late st Contact Info) Description 12/08/2025 11:20 AM EST Office Visit [facility] [address] [place] [address] Rodolfo Rhoades MD [address] [place] [address] documented as of this encounter [...] documented as of this encounter Care Teams Engineer/Conductor Relationship Specialty Start Date End Date Rodolfo Rhoades MD [address] [place] [id number] PCP - General Family Medicine 02/02/25 Keyonan Goff Community Health Worker 11/01/25 documented as of this encounter
--- OUTSIDE RECORDS SUMMARY | 2025-11-20 14:09 | XMS_ITS | Encounter Summary ---
Author Organization Healthcare Address [address] [id number] Care Team Providers Care Police Stenographer Name Role Phone Rodolfo Rhoades MD Primary Care Provider [phone] So Caicedo LPN Unavailable Unavailable Keyonna Goff Unavailable Unavailable Encounter Details Date Type Department Care Team (Late st Contact Info) Description 08/06/2025 Outside Procedure External Location [address] [place] [phone] Provider, Swapnil [place] Social History Tobacco Use Types Packs/Day Years [...] in a penitentiary (including now)? No 08/09/2025 [facility] Utilities Answer Date Recorded [...] Date of Assessment Author Precautions Fall risk 08/09/2025 8:00 PM EDT Ary Christopher RN * Calculated C-SSRS Risk Score (Lifetime/Recent) [...] Jewell RN documented as of this encounter Mental Status * Question Answer Entry Date Author Precautions Fall risk 08/09/2025 8:00 PM EDT Ary Christopher RN documented in this encounter Plan of Treatment Upcoming Encounters Date Type Department Care Team (Late st Contact Info) Description 12/08/2025 11:20 AM EST Office Visit [facility] [address] [place] [address] Rodolfo Rhoades MD [address] [place] [address] documented as of this encounter Procedures Procedure Name Priority Date/Time Associated Diagnosis Comments XR CHEST 1 VIEW 08/06/2025 9:18 AM EDT documented in this encounter Results * XR Chest 1 View (08/06/2025 9:18 AM EDT) Anatomical Region Laterality Modality Chest Digital Radiogra phy 08/06/2025 9:18 AM EDT Narrative 08/06/2025 10:[address] [id number] Name: HAILEY ALVAREZ Exam Date: 08/06/2025 : 1975 Age 49 years Gender: F Physician: REFUGIO JACKSON Facility: [facility] Facility HSV: Outpatient Exam: CHEST PORTABLE [...] Thank you for referring HAILEY ALVAREZ to [facility]. Legally authenticated by BRITTON RIVERA 2025-08-06 10:14:11 Procedure Note Provider, [facility] - 08/06/[address] [address] Name: HAILEY ALVAREZ Exam Date: 08/06/2025 : 1975 Age 49 years Gender: F Physician: REFUGIO JACKSON Facility: [facility] Facility HSV: Outpatient Exam: CHEST PORTABLE [...] Thank you for referring HAILEY ALVAREZ to [facility]. Legally authenticated by BRITTON RIVERA 2025-08-06 10:14:11 Generic [place] Provider IMG XR PROCEDURES Fi nal Result [...] documented as of this encounter Care Teams Police Stenographer Relationship Specialty Start Date End Date Rodolfo Rhoades MD [address] [place] [address] PCP - General Family Medicine 02/02/25 So Caicedo LPN [employer] [address] None TCM Nurse 09/07/25 10/07/25 Keyonna Goff Community Health Worker 11/01/25 documented as of this encounter
--- OUTSIDE RECORDS SUMMARY | 2025-11-20 14:09 | XMS_ITS | Encounter Summary ---
Author Organization Healthcare Address [facility] [place] [address] Care Team Providers Care Tennis Centre Manager Name Role Phone Rodolfo Rhoades MD Primary Care Provider Reason for Visit * Reason Comments Med Refill Encounter Details Date Type Department Care Team (Late st Contact Info) Description 10/11/2025 Refill [facility] [address] [place] [address] Rodolfo Rhoades MD [address] [place] [address] Low vitamin D level Social [...] in a jail (including now)? No 08/09/2025 [facility] [...] Description 12/08/2025 11:20 AM EST Office Visit [facility] [address] [place] [address] Rodolfo Rhoades [place] [address] documented as of this encounter [...] documented as of this encounter Care Teams Tennis Centre Manager Relationship Specialty Start Date End Date Rodolfo Rhoades [place] [address] PCP - General Family Medicine 02/02/25 documented as of this encounter
--- OUTSIDE RECORDS SUMMARY | 2025-11-20 14:09 | XMS_ITS | Encounter Summary ---
Author Organization Healthcare Address [address] [place] [address] Care Team Providers Care Termite Technician Name Role Phone Rodolfo Rhoades MD Primary Care Provider [phone] So Caicedo LPN Unavailable Unavailable Encounter Details Date Type Department Care Team (Latest Contact Info) Description 10/05/2025 Travel Social History Tobacco Use Types Packs/Day [...] snf (including now)? No 08/09/2025 [facility] [...] Description 12/08/2025 11:20 AM EST Office Visit [facility] [address] [place] [address] Rodolfo Rhoades MD [address] [place] [address] documented as of this encounter [...] documented as of this encounter Care Teams Termite Technician Relationship Specialty Start Date End Date Rodolfo Rhoades MD [address] [place] [address] PCP - General Family Medicine 02/02/25 So Caicedo LPN VALUE-[employer]ED [place] [address] None TCM Nurse 09/07/25 10/07/25 documented as of this encounter
--- OUTSIDE RECORDS SUMMARY | 2025-11-20 14:09 | XMS_ITS | Encounter Summary ---
Author Organization [facility] Address [facility] [place] [address] Care Team Providers Care Restaurant Greeter Name Role Phone Rodolfo Rhoades MD Primary Care Provider [phone] Keyonna Goff Unavailable Unavailable Reason for Visit * Reason Onset Date Comments HCN Lab/home Health 11/20/2025 Lab order Encounter Details Date Type Department Care Team (Late st Contact Info) Description 11/20/2025 Telephone [facility] [address] [place] [address] Rodolfo Rhoades MD [address] [place] [address] HCN Lab/home Health (Lab order) Social History Tobacco Use Types Packs/Day Years [...] a nursing home (including now)? No 08/09/2025 [facility] Utilities Answer Date Recorded In the [...] * Telephone Encounter - Mindy Gudino - 11/20/2025 1:26 PM EST Duplicate task. Called pt and informed that Dr. Rhoades got RX for lab work to be drawn and [facility]. Pt voiced understanding. * Telephone Encounter - Aniket Foster - 11/20/2025 1:10 PM EST Lab /Home Health Orders Patient: Veronica Weiss Type of Order: request lab order be sent to [facility] [place] Fax Number (if outside ): states Nurse has it since done in past Best contact number: [phone] Optimal time of day to reach caller: Additional comments/information from caller: please call pt when sent Note: Please do not reply to this message. Follow-up communication and further actions as a result of this message need to be communicated with the patient directly, if the patient is not active onMyChart. If the patient is active on MyChart, they will receive notification of the communication/outcome via [employer]. documented in this encounter Plan of Treatment Upcoming Encounters Date Type Department Care Team (Late st Contact Info) Description 12/08/2025 11:20 AM EST Office Visit [facility] [address] [place] [address] Rodolfo Rhoades MD [address] [place] [address] documented as of this encounter [...] documented as of this encounter Care Teams Restaurant Greeter Relationship Specialty Start Date End Date Rodolfo Rhoades MD [address] [place] [address] PCP - General Family Medicine 02/02/25 Keyonna Goff Community Health Worker 11/01/25 documented as of this encounter
--- OUTSIDE RECORDS SUMMARY | 2025-11-20 14:09 | XMS_ITS | Encounter Summary ---
Author Organization Healthcare Address [facility] [place] [address] Care Team Providers Care Crewman Main Battle Tank Name Role Phone Rodolfo Rhoades MD Primary Care Provider [phone] So Caicedo LPN Unavailable Unavailable Encounter Details Date Type Department Care Team (Late st Contact Info) Description 10/02/2025 Telephone [facility] [address] [place] [address] Rodolfo Rhoades MD [address] [place] [address] Social History Tobacco Use Types [...] any time in the past 12 m [facility], were you homeless or living in a custodial (including now)? No 08/09/2025 [facility] Utilities Answer Date Recorded In the past 12 months has th e electric, gas, oil, or water company threatened to shut off services in your home? No 08/09/2025 Safety and Environment Answer Date Abarham rded Do you worry that your child [...] encounter Miscellaneous Notes * Telephone Encounter - Rodolfo Rhoades MD - 10/03/2025 9:36 AM EST We can talk about this during her visit. She shouldn't be taking it more than prescribed. It makes us worried she's getting too much if she's having a hard time taking it correctly. * Telephone Encounter - Mindy Gudino - 10/02/2025 2:18 PM EST Called pt and she stated the hospital was giving her Gabapentin every 4 hours so she has been doingthat at home and didn't read the bottle before she started taking it. She is taking the Klonopin inthe afternoon in order to help her sleep at night, the Gabapentin is wearing off before the 4 hours, and wondering about early fill. I informed pt that I would send message and call her back once I he kaiser back, but Dr. Rhoades isn't here in clinic today. Pt saw Georgette this morning and has an appt with Dr. Rhoades on 10/05/25, but will run out of medication on Thursday. Pt voiced understanding. documented in this encounter Plan of Treatment Upcoming Encounters Date Type Department Care Team (Late Contact Info) Description 12/08/2025 11:20 AM EST Office Visit [facility] [address] [place] [address] Rodolfo Rhoades MD [address] [place] [address] documented as of this encounter [...] documented as of this encounter Care Teams Crewman Main Battle Tank Relationship Specialty Start Date End Date Rodolfo [place] [address] PCP - General Family Medicine 02/02/25 So Caicedo LPN [employer] [address] None TCM Nurse 09/07/25 10/07/25 documented as of this encounter
--- OUTSIDE RECORDS SUMMARY | 2025-11-20 14:09 | XMS_ITS | Encounter Summary ---
Author Organization Healthcare Address [facility] [place] [address] Care Team Providers Care Educational Technologist Name Role Phone Rodolfo Rhoades MD Primary Care Provider [phone] So Caicedo LPN Unavailable Unavailable Encounter Details Date Type Department Care Team (Late st Contact Info) Description 09/19/2025 Telephone [facility] [address] [place] [address] Rodolfo Rhoades MD [address] [place] [address] Social History Tobacco Use Types [...] any time in the past 12 m [facility], were you homeless or living in a usp (including now)? No 08/09/2025 [facility] Utilities Answer Date Recorded In the [...] No Risk Indicated 10/05/2025 11:21 AM EST KaelaMindy [place] * How difficult have these problems made [...] is not sure about a UTC in [place] but is going to get INR tomorrow and will ask them about a UTC in [facility]. * Telephone Encounter - Mindy Gudino - [...] wheels can be ordered for her in [place] ( [facility] [employer]). Best contact number: [phone] (mobile) Optimal time of day to reach caller: ANYTIME Additional comments/information from caller: None Note: Please do not reply to this message. Follow-up communication and further actions as a result of this message need to be communicated with the patient directly, if the patient is not active onMyChart. If the patient is active on MyChart, they will receive notification of the communication/outcome via [employer] Technologieshart. documented in this encounter Plan of Treatment Upcoming Encounters Date Type Department Care Team (Late st Contact Info) Description 12/08/2025 11:20 AM EST Office Visit [facility] [address] [place] [address] Rodolfo Rhoades MD [address] [place] [address] documented as of this encounter [...] as of this encounter Care Teams Educational Technologist Relationship Specialty Start Date End Date Rodolfo Rhoades MD [address] [place] [address] PCP - General Family Medicine 02/02/25 So Caicedo LPN VAL[employer] [place] [address] None TCM Nurse 09/07/25 10/07/25 documented as of this encounter
--- OUTSIDE RECORDS SUMMARY | 2025-11-20 14:09 | XMS_ITS | Encounter Summary ---
Author Organization [facility] Address [facility] [place] [address] Care Team Providers Care Instructor Psychiatric Aide Name Role Phone Rodolfo Rhoades MD Primary Care Provider [phone] Keyonna Goff Unavailable Unavailable Reason for Visit * Reason Onset Date Comments HCN Clinical Concern/Question 11/17/2025 Encounter Details Date Type Department Care Team (Late st Contact Info) Description 11/17/2025 Telephone [facility] [address] [place] [address] Rodolfo Rhoades MD [address] [place] [address] HCN Clinical Concern/Question Social History [...] in a alf (including now)? No 08/09/2025 [facility] Utilities Answer Date Recorded In the [...] Telephone Encounter - Mindy Gudino - 11/20/2025 1:23 PM EST Called pt and informed Dr. Rhoades got RX wrote for lab work and I will fax to [facility]. Pt voiced understanding and stated she will have drawn and send screenshot of results to make sure we got it, has MRI scheduled 11/28/25, has good and bad days due to stress and daily living over doing it sometimes. * Telephone Encounter - Imelda Mcmanus - 11/17/2025 1:13 PM EST Clinical Concern/Question Reason for Call: patient is asking if she can get her CK checked today. She would like to [facility] at [facility]. Please call to discuss. Thanks! Best contact number: [phone] (mobile) Optimal time of day to reach [...] Description 12/08/2025 11:20 AM EST Office Visit [address] [address] Rodolfo Rhoades MD [address] [place] [address] documented as of this encounter Visit [...] documented as of this encounter Care Teams Instructor Psychiatric Aide Relationship Specialty Start Date End Date Rodolfo Rhoades MD [address] [place] [address] PCP - General Family Medicine 02/02/25 Keyonna Goff Community Health Worker 11/01/25 documented as of this encounter
--- OUTSIDE RECORDS SUMMARY | 2025-11-20 14:09 | XMS_ITS | Encounter Summary ---
Author Organization [facility] Address [facility] [place] [address] Care Team Providers Care Malter Operator Name Role Phone Rodolfo Rhoades MD Primary Care Provider [phone] Keyonna Goff Unavailable Unavailable Reason for Referral * Consultation (Routine) - Authorized Specialty Diagnoses / Procedures Referred By Kaiser zuniga Referred To Contact Rheumatology Diagnoses Non-traumatic rhabdomyolysis Elevated CK Rodolfo Rhoades MD [address] [place] [address] Phone: tel: fax: Referral ID Status Reason Start Date Expiration Date Visits Requested Visits Authorized [id number] Authorized Specialty Services Required 11/04/2025 05/06/2027 1 1 Encounter Details Date Type Department Care Team (Late st Contact Info) Description 11/02/2025 Orders Only [facility] [address] [place] [address] Rodolfo Rhoades MD [address] [place] [address] Non-traumatic rhabdomyolysis (Primary Dx); Elevated CK Social History Tobacco Use Types Packs/Day Years [...] in a assisted (including now)? No 08/09/2025 [facility] [...] Description 12/08/2025 11:20 AM EST Office Visit [facility] [address] [place] [address] Rodolfo Rhoades MD [address] [place] [address] Scheduled Referrals Name Type Priority Associated Diagnoses Order Schedule Ambulatory referral to Rheumatology Outpatient Referral Routine Non-traumatic rhabdomyolysis Elevated CK 1 Occurrences starting 11/04/2025 until 05/08/2027 documented as of this encounter Visit Diagnoses Diagnosis Non-traumatic rhabdomyolysis- Primary Elevated CK Other nonspecific abnormal serum enzyme levels documented in this encounter Additional Health Concerns Assessment Noted Time PHQ-9 Depression Total Score: 11 025 9:50 AM EST A fall risk assessment has been complete d for the patient 10/02/2025 9:55 AM EST A Body Mass Index follow-up plan has been documented for the patient 11/01/2025 2:39 PM EST documented as of this encounter Care Teams Malter Operator Relationship Specialty Start Date End Date Rodolfo Rhoades MD [address] [place] [address] PCP - General Family Medicine 02/02/25 Keyonna Goff Community Health Worker 11/01/25 documented as of this encounter
--- OUTSIDE RECORDS SUMMARY | 2025-11-20 14:09 | XMS_ITS | Encounter Summary ---
Author Organization [facility] Address [facility] [place] [address] Care Team Providers Care Light Rail Vehicle Operator Name Role Phone Rodolfo Rhoades MD Primary Care Provider [phone] Keyonna Goff Unavailable Unavailable Reason for Visit * Reason Onset Date Comments HCN Clinical Concern/Question 11/10/2025 Encounter Details Date Type Department Care Team (Late st Contact Info) Description 11/10/2025 Telephone [facility] Medicine [address] [place] [address] Rodolfo Rhoades MD [address] [place] [address] [facility]CN Clinical Concern/Question Social History [...] in a longterm (including now)? No 08/09/2025 [facility] [...] * Telephone Encounter - Nicole Smith - 11/13/2025 3:48 PM EST Sent to pt in Good[employer] * Telephone Encounter - Rodolfo Rhoades MD - 11/13/2025 3:16 PM EST The only other option we can try while waiting for rheumatology is a round of steroids and have herfollow up in the office for repeat testing. I know [place] get to [place]. I don't like thatthe level lis rising and I'm not sure why it's rising. We could see if steroids help to reduce the rise but we would need to see her closely in the office to recheck. * Telephone Encounter - Anamika Levin - 11/13/2025 1:59 PM EST Clinical Concern/Question Reason for Call: she is calling again and is asking for a call back [facility] Best contact number: [phone] Optimal time of day to reach caller: Additional comments/information from caller: Note: Please do not reply to this message. Follow-up communication and further actions as a result of this message need to be communicated with the patient directly, if the patient is not active onMyChart. If the patient is active on MyChart, they will receive notification of the communication/outcome via FullStoryt. * Telephone Encounter - Sandy Foster - 11/10/2025 3:43 PM EST Clinical Concern/Question Reason for Call: pt asks if the CK lab test she had at [facility] yesterday have been rec'd in clinic. Also asks if Dr Rhoades would write a letter stating that, due to her current health issue/nerve damage, inability to walk, etc, she is unable to work. She also asks for callback to advise what else she can do for her recovery. Please call to discuss. thx Best contact number: [phone] (mobile) Optimal time of day to reach caller: ANYTIME Additional comments/information from caller: None Note: Please do not reply to this message. Follow-up communication and further actions as a result of this message need to be communicated with the patient directly, if the patient is not active onMyChart. If the patient is active on MyChart, they will receive notification of the communication/outcome via MedAware. documented in this encounter Plan of Treatment Upcoming Encounters Date Type Department Care Team (Late st Contact Info) Description 12/08/2025 11:20 AM EST Office Visit [facility] [address] [place] [address] Rodolfo Rhoades MD [address] [place] [address] Scheduled Orders Name Type Priority Associated Diagnoses Orde r Schedule Creatine Kinase, Total, Plasma Lab Routine Elevated CK Expected: 11/14/2025 (Approximate), Expires: 05/18/2027 documented as of this encounter Visit Diagnoses Diagnosis Elevated CK- Primary Other nonspecific abnormal serum enzyme levels documented in this encounter Additional Health Concerns Assessment Noted Time PHQ-9 Depression Total Score: 11 025 9:50 AM EST A fall risk assessment has been complete d for the patient 10/02/2025 9:55 AM EST A Body Mass Index follow-up plan has been documented for the patient 11/01/2025 2:39 PM EST documented as of this encounter Care Teams Light Rail Vehicle Operator Relationship Specialty Start Date End Date Rodolfo Rhoades MD [address] [place] [address] PCP - General Family Medicine 02/02/25 Keyonna Goff Community Health Worker 11/01/25 documented as of this encounter
--- OUTSIDE RECORDS SUMMARY | 2025-11-20 14:09 | XMS_ITS | Encounter Summary ---
Author Organization Healthcare Address [address] [id number] Care Team Providers Care Coordinator Hotels Name Role Phone Rodolfo Rhoades MD Primary Care Provider [phone] Keyonna Goff Unavailable Unavailable Reason for Visit * Reason Comments [facility] Encounter Details Date Type Department Care Team (Late st Contact Info) Description 11/09/2025 Patient Outreach POPULATION HEALTH [address], [address] [address] Keyonna Goff [facility] Social History Tobacco [...] a retirement (including now)? No 08/09/2025 [facility] Utilities Answer Date Recorded In [...] Notes * Progress Notes - Keyonna Goff - 11/09/2025 2:16 PM EST 11/09/2025 CHW Follow-up: Follow-up from 11/02/25 Contact - Phone Reason for Follow-up: CHW attempted to call the pt to follow up about their SDOH needs and community resources, but the pt did not answer. CHW left a voicemail with their contact info. Plan: CHW will attempt to reach out to the pt on 11/20/25, if they have not responded prior. documented in this encounter Plan of Treatment Upcoming Encounters Date Type Department Care Team (Late st Contact Info) Description 12/08/2025 11:20 AM EST Office Visit [facility] [address] [place] [address] Rodolfo Rhoades MD [address] [place] [address] documented as of this encounter [...] documented as of this encounter Care Teams Coordinator Hotels Relationship Specialty Start Date End Date Rodolfo Rhoades MD [address] [place] [address] PCP - General Family Medicine 02/02/25 Keyonna Goff Community Health Worker 11/01/25 documented as of this encounter
--- OUTSIDE RECORDS SUMMARY | 2025-11-20 14:09 | XMS_ITS | Encounter Summary ---
Author Organization Healthcare Address [address] [id number] Care Team Providers Care Email Developer Name Role Phone Rodolfo Rhoades MD Primary Care Provider [phone] Keyonna Goff Unavailable Unavailable Reason for Visit * Reason Comments [facility] Encounter Details Date Type Department Care Team (Late st Contact Info) Description 11/01/2025 Patient Outreach POPULATION HEALTH [address] [facility] [address] [place] [address] Keyonna Goff [facility] Social History [...] in a jail (including now)? No 08/09/2025 [facility] Utilities Answer Date Recorded In the [...] 1 Month) No 025 11:08 AM EST Kyala Ayon 2. Non-Specific Active Suici omar Thoughts (Past 1 Month) No 11/01/2025 11:08 AM EST Kayla Ayon 6. Suicidal Behavior (Lifetime) No 11:08 AM EST Kayla Ayon documented as of this encounter Miscellaneous Notes * Progress Notes - Keyonna Goff - 11/01/2025 2:26 PM EST CHW Initial Encounter Note 11/01/2025 Urgent or Non-Urgent Referral: Non Urgent Cash Applications Associate: No Preferred Language: Belarusian Cash Applications Associate ID: [id number] Outreach 1: 11/01/25 Outreach 2: Outreach 3: Contact Methods: Phone SDOH Pre-Assessment/Health Maintenance: Transportation: [access to transportation, issues, etc.] SDOH Overview: Per their pt's provider, Rodolfo Rhoades MD, pt has transportation insecurity. SDOH Intervention: CHW called the pt to discuss their SDOH needs and the CHW program, but now was not a good time for the pt to talk. CHW advised the pt to feel free to call back at their convenienceand provided their office hours. CHW advised they will call the pt back tomorrow, but if they are unable to answer that they will leave a voicemail. Pt advised they have a meeting tomorrow at 1:30 PM. CHW will attempt to contact the pt before 12 PM tomorrow. Pt enrolled in CHW Program: No Next follow-up scheduled: 2nd Call Attempt on 11/02/25 Notes for next follow-up: N/A documented in this encounter Plan of Treatment Upcoming Encounters Date Type Department Care Team (Late st Contact Info) Description 12/08/2025 11:20 AM EST Office Visit [facility] [address] [address] Rodolfo Rhoades [...] documented as of this encounter Care Teams Email Developer Relationship Specialty Start Date End Date Rodolfo Rhoades MD [address] [place] [address] PCP - General Family Medicine 02/02/25 Keyonna Goff Community Health Worker 11/01/25 documented as of this encounter
--- OUTSIDE RECORDS SUMMARY | 2025-11-20 14:09 | XMS_ITS | Encounter Summary ---
Author Organization Healthcare Address [address] [id number] Care Team Providers Care Rn Oncology Clinical Name Role Phone Georgette Moore APRN Primary Care Provider [phone] Veronica Goodwin LPN Unavailable Unavailable Margaret Ro Unavailable Unavailable Rodolfo Rhoades MD Primary Care Provider [phone] Marianne Bolaños Unavailable Unavailable Ariana Bagley Unavailable Unavailable So Caicedo NUMBERER AND WIRER Unavailable Unavailable Keyonna Goff Unavailable Unavailable Encounter Details Date Type Department Care Team (Late st Contact Info) Description 07/21/2024 Outside Procedure External Location [address] [place] [id number] Provider, Swapnil Monique Social History Tobacco Use Types Packs/Day Years Used Date Smoking Tobacco: Every Day Cigarettes 1 24 Started: 2001 Passive Smoke Exposure: Current [...] place to sleep or slept in a group home (including now)? No 07/25/2024 Safety and [...] the past 12 months has th e [employer], gas, oil, or water [employer] Assist threatened to shut off services in your [...] Description 12/08/2025 11:20 AM EST Office Visit [facility] [address] [place] [address] Rodolfo Rhoades MD [address] [place] [address] documented as of this encounter Procedures Procedure Name Priority Date/Time Associated Diagnosis Comments XR CHEST 1 VIEW 07/21/2024 4:03 PM EDT documented in this encounter Results * XR Chest 1 View (07/21/2024 4:03 PM EDT) Anatomical Region Laterality Modality Chest Digital Radiogra phy 07/21/2024 4:03 PM EDT Narrative 07/21/2024 4:31 PM EDT [address] [address] Name: VERONICA ALVAREZ Exam Date: 07/21/2024 : [...] to [facility]. Legally authenticated by NATALIE CULVER 2024-07-21 16:12:48 Procedure Note Provider, [facility] - 07/21/2024 [place] [address] Name: VERONICA ALVAREZ Exam Date: 07/21/2024 : [...] to [facility]. Legally authenticated by NATALIE CULVER 2024-07-21 16:12:48 Generic [place] Provider IMG XR PROCEDURES Fi nal Result [...] documented as of this encounter Care Teams Rn Oncology Clinical Relationship Specialty Start Date End Date Georgette Moore APRN [address] [place] [address] PCP - General 04/12/21 02/01/25 Rodolfo Rhoades MD [address] [place] [address] PCP - General Family Medicine 02/02/25 Veronica Goodwin LPN [employer] [place] [address] None TCM Nurse 07/25/24 08/25/24 Margaret Ro Community Health Worker 07/27/24 4 [employer] Clinical Process Manager 07/14/25 07/28/25 Ariana Bagley Community Health Worker 07/14/25 07/14/25 So Caicedo LPN [employer] [place] [address] None TCM Nurse 09/07/25 10/07/25 Keyonna Goff Community Health Worker 11/01/25 documented as of this encounter
--- OUTSIDE RECORDS SUMMARY | 2025-11-20 14:09 | XMS_ITS | Clinical Summary ---
Author Organization Healthcare Address [address] [id number] Care Team Providers Care Oil Well Logging Engineer Name Role Phone Rodolfo Rhoades MD Primary Care Provider [phone] Keyonna Goff Unavailable Unavailable Allergies Active Allergy Reactions Criticality [...] as needed for anxiety. 12/25/19 22 Active metoprolol succinate XL (Toprol-XL) 25 MG 24 hr tablet Take 1 tablet by mouth daily. 09/28/20 24 Active buprenorphine-n aloxone (Suboxone) 8-[address] 2 tablets under the tongue daily. 11/14/20 24 Active cholecalciferol (Vitamin D-3) 50 MCG (1999) capsule Take 1 capsule by mouth daily. Active naloxone (Narcan) 4 mg/0.1 mL nasal spray 1. Give 1 spray in nostril for no/slow breathing or cannot wake after opioid use 2. Call 911 3. Repeat in other nostril if symptoms continue Call 911. Give 4 mg (1 spray) into one nostril. Repeat every 2-3 minutes as needed, alternating nostrils, until medical assistance arrives. 1 each 09/06/202025 Active gabapentin (Neurontin) 800 MG tablet Take 1 tablet by mouth 4 times a day. 120 tablet 1 10/06/20 25 Active tiotropium-olod aterol (Stiolto Respimat) 2.5-2.5 MCG/ACT aerosol solution inhaler Inhale 2 Inhalations daily. 4 g 3 09/15/20 25 Active warfarin (Coumadin) 2.5 MG tablet TAKE 1 TABLET BY MOUTH ONCE A DAY 30 tablet 5 10/09/20 25 Active lidocaine (Lidoderm) 5 % patch APPLY 1 PATCH TOPICALLY TO MOST PAINFUL AREA AND LEAVE ON FOR 12 HOURS THEN REMOVE AND LEAVE OFF FOR 12 HOURS 30 patch 2 10/09/20 25 Active alendronate (Fosamax) 70 MG tabletIndicatio ns:Low vitamin D level TAKE 1 TABLET BY MOUTH ONCE EVERY 7 DAYS ON AN EMPTY STOMACH WITH A FULL GLASS OF WATER. DO NOT LIE DOWN OR TAKE ANYTHING ELSE FOR 30 MINUTES 12 tablet 3 10/12/20 25 Active acetaminophen (Tylenol) 500 MG tablet Take 2 tablets by mouth 3 times a day. 200 tablet 11/01/20 25 Active albuterol 108 (90 Base) MCG/ACT inhalerIndicati ons:Moderate persistent asthma without complication Inhale 2 puffs as needed for shortness of breath or wheezing. 1 each 2 11/01/20 25 Active fluticasone (Flonase) 50 MCG/ACT nasal sprayIndication s:Acute recurrent maxillary sinusitis Administer 1 spray into each nostril daily. Shake gently. Before first use, prime pump. After use, clean tip and replace cap. 16 g 12 11/01/20 25 Active nystatin (Mycostatin) 240173 UNIT/GM powder Apply to groin twice a day. Keep area dry. 60 g 3 11/01/20 25 Active carBAMazepine (TEGretol) 200 MG tablet Take 1 tablet by mouth 2 times a day. 60 tablet 1 11/01/20 25 Active methylPREDNISol one (Medrol Dospak) 4 MG tablets Take as directed on package. 21 tablet 11/14/20 25 Active fluticasone (Flonase) 50 MCG/ACT nasal sprayIndication s:Acute recurrent maxillary sinusitis Administer 1 spray into each nostril 1 (one) time each day. Shake gently. Before first use, prime pump. After use, clean tip and replace cap. 16 g 12 08/17/20 24 2024 Discontinued(R eorder) albuterol 108 (90 Base) MCG/ACT inhalerIndicati ons:Moderate persistent asthma without complication Inhale 2 puffs as needed for shortness of breath or wheezing. 1 each 2 02/16/20 25 2024 Discontinued(R eorder) acetaminophen (Tylenol) 500 MG tablet Take 2 tablets by mouth 3 times a day. 200 tablet 09/06/20 25 2024 Discontinued(R eorder) nystatin (Mycostatin) 790810 UNIT/GM powder Apply to groin twice a day. Keep area dry. 60 g 09/06/20 25 2024 Discontinued(R eorder) losartan (Cozaar) 25 MG tablet Take 1 tablet by mouth daily. 30 tablet 2 09/15/20 25 2024 Discontinued DULoxetine (Cymbalta) [address] capsule Take 1 capsule by mouth daily. Do not crush or chew. 30 capsule 1 09/15/20 25 2024 Discontinued hydrOXYzine pamoate (Vistaril) 25 MG capsule TAKE 1 CAPSULE BY MOUTH EVERY 6 HOURS NEEDED FOR ANXIETY 30 capsule 5 10/09/202024 Discontinued Active Problems Problem Noted Date Diagnosed [...] endurance continues to improve. PLAN - Removed guerrero catheter today. Encouraged to use bedside commode. [...] PRN and hydroxyzine q6hr PRN. PLAN: - Precipitator Supervisor services following - Continue home Klonopin TID PRN - Continue hydroxyzine 25 mg q6h PRN Assessment & Plan (08/28/2025 7:38 AM EDT): - Patient takes Klonopin TID PRN and hydroxyzine q6hr PRN. PLAN: - Precipitator Supervisor services following - Continue home Klonopin TID PRN - Continue hydroxyzine 25 mg q6h PRN Assessment & Plan (08/27/2025 6:17 PM EDT): - Patient takes Klonopin TID PRN and hydroxyzine q6hr PRN. PLAN: - Precipitator Supervisor services following - Continue home Klonopin TID PRN - Continue hydroxyzine 25 mg q6h PRN Assessment & Plan (08/26/2025 7:20 AM EDT): - Patient takes Klonopin TID for anxiety. - Patient denies consideration of cymbalta. Has previously denied discussion regarding SSRIs. PLAN - Precipitator Supervisor services following - Continue home Klonopin TID PRN - Continue hydroxyzine 25 mg q6h PRN Assessment & Plan (08/25/2025 1:17 PM EDT): - Patient takes Klonopin TID for anxiety. - Patient denies consideration of cymbalta. Has previously denied discussion regarding SSRIs. PLAN - Precipitator Supervisor services following - Continue home Klonopin TID PRN - Continue hydroxyzine 25 mg q6h PRN Assessment & Plan (08/24/2025 11:26 AM EDT): - Patient takes Klonopin TID for anxiety. - Patient denies consideration of cymbalta. Has previously denied discussion regarding SSRIs. - Precipitator Supervisor services saw Ms. Weiss yesterday and she states that she was extremely thankful for their visit. PLAN - Precipitator Supervisor services following - Continue home Klonopin TID PRN - Continue hydroxyzine 25 mg q6h PRN Assessment & Plan (08/23/2025 12:08 PM EDT): - Patient takes Klonopin TID for anxiety. - Patient denies consideration of cymbalta. She denies wanting to discuss SSRI options today. PLAN - Consulted rail car repairman services for support - Continue home Klonopin [...] and pain with swallowing - On PE, paul is noted on tongue and posterior pharynx [...] Plan (08/25/2025 1:17 PM EDT): PLAN - SOLAR POOL HEATING INSTALLER reevaluated today. With patient agreed to go to full diet. Patient still requires a 1:1 assist with eating due to difficulty with hand strength. Assessment & Plan (08/24/2025 11:26 AM EDT): - Dobhoff tube was removed yesterday since she has been tolerating her diet appropriately - Patient has been continuing to eat soft and bite sized diet with 1:1 assistance PLAN - SOLAR POOL HEATING INSTALLER following, appreciate recommendations Assessment & Plan (08/23/2025 12:08 PM EDT): - Repeat MBS on 08/22 demonstrated intermittent penetration and aspiration of thin liquids. Ordered soft and bite sized diet on 08/22 with 1:1 feeding assistance. - Tube feeds held PM 08/01. Dobhoff tube is still in place. - Patient has been tolerating soft and bite sized diet well. PLAN - SOLAR POOL HEATING INSTALLER following, appreciate recommendations - Planning to remove dobhoff tube later in the day to make sure that breakfast and lunch were tolerated well. Assessment & Plan (08/22/2025 8:39 AM EDT): - MBS on 08/15 with aspiration of thin, nectar, and honey barium consistency - Dobhoff tube in place PLAN - SOLAR POOL HEATING INSTALLER following, appreciate recommendations - Continue isosource tube [...] Patient's current debility inhibits the removal of Guerrero catheter. - Current Pain Regimen: - Scheduled: [...] Recommends outpatient EMG - Follow-up requested with [facility] Neurology Assessment & Plan (08/30/2025 12:05 PM [...] from 100ml/hr to 200ml/hr Strict IO Continue guerrero Trend CMP q6h Trend CK, Mg, Phos, [...] organization. Date Type Department Care Team Description 11/20/2025 Telephone [facility] [address] [place] [address] Rodolfo Rhoades MD 11/20/2025 Telephone [facility] [address] [place] [address] Rodolfo Rhoades MD HCN Lab/home Health (Lab order) 11/17/2025 Telephone [facility] [address] [place] [address] Rodolfo Rhoades MD HCN Clinical Concern/Question 11/10/2025 Telephone [facility] [address] [place] [address] Rodolfo Rhoades MD HCN Clinical Concern/Question 11/09/2025 Patient Outreach [facility] [address] [place] [address], [address] [place] [address] Keyonna Goff [facility] 11/07/2025 Orders Only [facility] [address] [place] [address] Rodolfo Rhoades MD Elevated CK (Primary Dx) 11/02/[address] [address] Rodolfo Rhoades MD [facility]CN Paperwork/Documentati on Request 11/02/2025 Patient Outreach [address] [place] [address] [address], [address] [address] Keyonna Goff [facility] 11/02/2025 Results Follow-Up [address] [address] Rodolfo Rhoades MD 11/02/2025 Orders Only [address] [address] Rodolfo Rhoades MD Non-traumatic rhabdomyolysis (Primary Dx); Elevated CK 11/01/2025 10:40 AM EST Office Visit [address] [address] Rodolfo Rhoades MD Sore throat (Primary Dx); Moderate persistent asthma without complication; Acute recurrent maxillary sinusitis; Fatigue, unspecified type; Acute upper respiratory infection, unspecified; Chronic nonintractable headache, unspecified headache type; Chronic atrial fibrillation (CMS/HCC); Essential hypertension; Non-traumatic rhabdomyolysis; Elevated CK; Transportation insecurity; Anemia, unspecified type 11/01/2025 Patient Outreach [address], [facility] [address] [place] [address] Keyonna Goff [facility] 11/01/2025 Travel 10/19/[address] [address] Rodolfo Rhoades MD HCN - Patient Message 10/11/2025 Refill [facility] [address] [place] [address] Rodolfo Rhoades MD Low vitamin D level 10/08/2025 Results Follow-Up [facility] [address] [place] [address] Rodolfo Rhoades MD 10/05/2025 11:00 AM EST Office Visit [facility] [address] [place] [address] Rodolfo Rhoades MD Non-traumatic rhabdomyolysis (Primary Dx); Essential hypertension; Nerve pain; Elevated CK; Generalized weakness 10/05/2025 Travel 10/05/2025 Refill [facility] [address], [address] [place] [address] Tammy Caban MD 10/02/2025 9:40 AM EST Office Visit [facility] [address] [place] [address] Georgette Moore APRN Non-traumatic rhabdomyolysis (Primary Dx) 10/02/2025 Telephone [facility] [address] [place] [address] Rodolfo Rhoades MD 10/02/2025 Travel 09/20/2025 Results Follow-Up [facility] [address] [place] [address] Rodolfo Rhoades MD 09/19/2025 Telephone [facility] [address] [place] [address] Rodolfo Rhoades MD 09/15/2025 1:00 PM EDT Office Visit [facility] [address] [place] [address] Rodolfo Rhoades MD Sequela, post-stroke (Primary Dx); Non-traumatic rhabdomyolysis; Mixed hyperlipidemia; Vitamin D deficiency; Chronic atrial fibrillation (CMS/HCC); Essential hypertension; Anemia, unspecified type 09/15/2025 Travel 09/08/2025 Telephone [facility] [address] [place] [address] Rodolfo Rhoades MD 09/08/2025 Patient Outreach POPULATION [facility] [address] [place] [address] [address], [address] [place] [address] So Caicedo LPN [facility] 09/07/2025 Results Follow-Up [facility] Inpatient Pharmacy [address] [place] [address] Annemarie Grover, PharmD 09/07/2025 Patient Outreach POPULATION [address] [place], [address] [place] [address] So Caicedo LPN [facility] 08/30/2025 Travel 08/22/2025 Travel 08/21/2025 2:57 PM EDT Anesthesia Event [facility] S Operating Room [address] [place] [address] Sosa Cadet MD [place], [place], 08/21/2025 Travel from Last 3 Months Immunizations Immunization Administration Dates Next Due Influenza, injectable, quadrivalent 12/17/2016 Influenza, injectable, quadr ivalent, preservative free 09/20/2020 Influenza, seasonal, injecta ble, preservative free 12/17/2016 Pfizer-BioNTech COVID-19 Vac cine (Purple Cap) 12+ 11/27/2021,04/05/2021,03/08/2021 Family History Medical History Relation Name Comments No Known Problems Daughter Alcohol abuse Father Cirrhosis Father Cancer Maternal Grandfather Jaya Greenfield Heart disease Maternal Grandmother Starr Collins Stroke Maternal Grandmother Starr Collins Arthritis Mother Emrachel Greenfield COPD Mother Em Greenfield Heart attack [...] in a fci (including now)? No 08/09/2025 [facility] Utilities Answer Date Recorded In the [...] EST Height 162.6 cm (5' 4 ) 11/01/2025 11:05 AM EST Body Mass Index 23.86 10/02/2025 9:43 AM EST Plan of Treatment Upcoming Encounters Date Type Department Care Team (Late st Contact Info) Description 12/08/2025 11:20 AM EST Office Visit [facility] [address] [address] Rodolfo Rhoades MD [address] [address] Health Maintenance Due Date Last Done Comments [facility]-Infant/Child/Adol SDOH Screenings 1977 [facility]-DTaP,Tdap,and Td Vaccines (1 - Tdap) 1996 [facility]-Hepatitis A Vaccines (1 of 2 - Risk 2-dose series) 1996 [facility]-Hepatitis B Vaccines (1 of 3 - 19+ 3-dose series) 1996 [facility]-Pneumococcal Vaccine: Pediatrics (0 to 5 Years) and At-Risk Patients (6 to 49 Years) (1 of 2 - PCV) 1996 [facility]-Zoster Vaccines (1 of 2) 1996 CT Colonography 2022 FIT 2022 FOBT 2022 Sigmoidoscopy 2022 [id number] Vaccine ( season) 2025 11/27/2021, 04/05/2021, 03/08/2021 [facility]-Influenza Vaccine (#1) 07/31/202509/20, 12/17/2016, 12/17/2016 [facility]- SDOH Screenings 02/06/2026 [facility]-Adult SDOH Screenings 02/06/2026 08/09/2025 [facility]-Depression Screening 10/02/2026 10/02/2025, 11/01/2025 FIT-DNA 03/20/2027 03/20/2024 Colonoscopy 02/24/2035 02/24/2025 [facility]-Colorectal Cancer Screening 02/24/2035 [facility]-Diabetes: Hemoglobin A1C Discontinued 08/07/2025, 03/27/2025, 07/25/2024, Additional history exists [facility]-Hepatitis C Screening Completed 08/09/2025, 03/2021 [facility]-HIV Screening Completed 08/12/2025, 08/09/2025 [facility]-Obesity Intervention Completed 025, 10/02/2025, 09/15/2025, Additional history exists HPV Vaccines (No Doses Required) Completed [facility]-HIB Vaccines Aged Out No longer e ligible based on patient's age to complete this topic [facility]-IPV Vaccines Aged Out No longer e ligible based on patient's age to complete this topic [facility]-Rotavirus Vaccines Aged Out No lo nger eligible based on patient's age to complete this topic Procedures Procedure Name Priority Date/Time Associated Diagnosis Comments FERRITIN, SERUM Routine 11/01/2025 1:03 PM EST Anemia, unspecified type IRON, PLASMA Routine 11/01/2025 1:03 PM EST Anemia, unspecified type PROTHROMBIN TIME(PT) / INR Routine 11/01/2025 1:03 PM EST Chronic atrial fibrillation (CMS/HCC) CREATINE KINASE, TOTAL, PLASMA Routine 11/01/2025 1:03 PM EST Non-traumatic rhabdomyolysis Elevated CK CBC WITH AUTO DIFFERENTIAL Routine 11/01/2025 1:03 PM EST Fatigue, unspecified type FREE T4, PLASMA Routine 11/01/2025 1:03 PM EST Fatigue, unspecified type TSH Routine 11/01/2025 1:03 PM EST Fatigue, unspecified type COMPREHENSIVE METABOLIC PANEL, PLASMA Routine 11/01/2025 1:03 PM EST Acute recurrent maxillary sinusitis Fatigue, unspecified type POCT SARS COV2 COVID 19/INFLUENZA A,B Routine 11/01/2025 12:36 PM EST Acute upper respiratory infection, unspecified POCT STREP A PCR Routine 11/01/2025 12:34 PM EST Sore throat Acute upper respiratory infection, unspecified COMPREHENSIVE METABOLIC PANEL, PLASMA Routine 10/05/2025 12:07 PM EST Essential hypertension Nerve pain CREATINE KINASE, TOTAL, PLASMA Routine 10/05/2025 12:07 PM EST Non-traumatic rhabdomyolysis Elevated CK VITAMIN B12, SERUM Routine 09/15/2025 2:12 PM [...] UNSOLICITED RESULTS Routine 08/21/2025 12:14 AM EDT HUMAN IMMUNODEFICIENCY VIRUS (HIV-1) QUANTITATIVE PCR Routine 08/12/2025 5:12 PM EDT ACUTE HEPATITIS PANEL STAT 08/09/2025 3:57 AM EDT HEMOGLOBIN A1C Routine 08/07/2025 5:05 AM EDT COLONOSCOPY EXTERNAL RESULT 02/24/2025 from Last 3 Months or Most Recently Relevant to Health Maintenance Results * (ABNORMAL) Creatine Kinase (CK), Total (11/01/2025 1:03 PM EST) Only the most recent of5 resultswithin the time period is included. Creatine Kinase, Plasma 224(H) 37 - 168 U/L 11/01/2025 7:25 PM EST [facility] Blood Venous blood specimen / Unknown Venipuncture / Unknown 11/01/2025 1:03 PM EST 11/01/2025 1:03 PM EST us Rodolfo Rhoades MD LAB BLOOD ORDERABLES Final Res ult Performing Organization Address City/State/[facility] Co de Phone Number [facility] [address] [place] [address] * (ABNORMAL) Protime-INR (11/01/2025 1:03 PM EST) Only the most recent of18 resultswithin the time period is included. Prothrombin Time 18.6(H) 12.0 - 14.3 sec LAB COAGULATION METHOD 11/01/2025 7:51 PM EST [facility] INR 1.5(H) 0.9 - 1.1 LAB COAGULATION METHOD 11/01/2025 7:51 PM EST [facility] Blood Venous blood specimen / Unknown Venipuncture / Unknown 11/01/2025 1:03 PM EST 11/01/2025 1:03 PM EST Narrative [facility] - 11/01/2025 7:51 PM EST OPTIMAL INR RANGES FOR PATIENT ON ORAL ANTICOAGULANT THERAPY Prevention of venous thromboembolism INR 2.0 to 3.0 In patients with heart disease: Atrial fibrillation INR 2.0 to 3.0 Valvular heart disease INR 2.0 to 3.0 Tissue heart valves INR 2.0 to 3.0 Mechanical prosthetic valves INR 2.5 to 3.5 Prevention of recurrent [place] INR 2.5 to 3.5 us Rodolfo Rhoades MD LAB BLOOD ORDERABLES Final Res ult [facility] [address] [place] [address] * (ABNORMAL) CBC and Differential (11/01/2025 1:03 PM EST) Only the most recent of19 resultswithin the time period is included. WBC Count 9.43 3.70 - 10.30 10*3/uL LAB HEMATOLOGY METHOD 11/01/2025 7:00 PM EST [facility] RBC Count 4.43 3.90 - 5.20 10*6/uL LAB HEMATOLOGY METHOD 11/01/2025 7:00 PM EST [facility] HGB 13.1 11.2 - 15.7 g/dL LAB HEMATOLOGY METHOD 11/01/2025 7:00 PM EST [facility] HCT 42.0 34.0 - 45.0 % LAB HEMATOLOGY METHOD 11/01/2025 7:00 PM EST [facility] Platelet Count 314 155 - 369 10*3/uL LAB HEMATOLOGY METHOD 11/01/2025 7:00 PM EST [facility] MCV 95 79 - 98 fL LAB HEMATOLOGY METHOD 11/01/2025 7:00 PM EST [facility] MCH 29.6 26.0 - 32.0 pg LAB HEMATOLOGY METHOD 11/01/2025 7:00 PM EST [facility] MCHC 31.2 30.7 - 35.5 g/dL LAB HEMATOLOGY METHOD 11/01/2025 7:00 PM EST [facility] RDW 12.7 11.5 - 14.5 % LAB HEMATOLOGY METHOD 11/01/2025 7:00 PM EST [facility] MPV 10.6 8.8 - 12.5 fL LAB HEMATOLOGY METHOD 11/01/2025 7:00 PM EST [facility] nRBC 0.0 <=0.0 per 100 WBCs LAB HEMATOLOGY METHOD 11/01/2025 7:00 PM EST [facility] Differential Type Automated LAB HEMATOLOGY METHOD 11/01/2025 7:00 PM EST [facility] Neutrophils % 65 % LAB HEMATOLOGY METHOD 11/01/2025 7:00 PM EST [facility] Lymphocytes % 19 % LAB HEMATOLOGY METHOD 11/01/2025 7:00 PM EST [facility] Monocytes % 8 % LAB HEMATOLOGY METHOD 11/01/2025 7:00 PM EST [facility] Eosinophils % 8 % LAB HEMATOLOGY METHOD 11/01/2025 7:00 PM EST [facility] Basophils % 0 % LAB HEMATOLOGY METHOD 11/01/2025 7:00 PM EST [facility] Immature Granulocytes % 0 % LAB HEMATOLOGY METHOD 11/01/2025 7:00 PM EST [facility] Neutrophils Absolute 6.03 1.60 - 6.10 10*3/uL LAB HEMATOLOGY METHOD 11/01/2025 7:00 PM EST [facility] Lymphocytes Absolute 1.83 1.20 - 3.90 10*3/uL LAB HEMATOLOGY METHOD 11/01/2025 7:00 PM EST [facility] Monocytes Absolute 0.75 0.30 - 0.90 10*3/uL LAB HEMATOLOGY METHOD 11/01/2025 7:00 PM EST [facility] Eosinophils Absolute 0.75(H) 0.00 - 0.50 10*3/uL LAB HEMATOLOGY METHOD 11/01/2025 7:00 PM EST [facility] Basophils Absolute 0.04 0.00 - 0.10 10*3/uL LAB HEMATOLOGY METHOD 11/01/2025 7:00 PM EST [facility] Immature Granulocytes Absolute 0.03 0.00 - 0.06 10*3/uL LAB HEMATOLOGY METHOD 11/01/2025 7:00 PM EST [facility] Blood Venous blood specimen / Unknown Venipuncture / Unknown 11/01/2025 1:03 PM EST 11/01/2025 1:03 PM EST Narrative [facility] - 11/01/2025 7:00 PM EST Therapeutic decision making should be based on absolute values, rather than percentages. us Rodolfo Rhoades MD LAB BLOOD ORDERABLES Final Res ult [facility] [address] [place] [address] * Thyroid Stimulating Hormone, Plasma (11/01/2025 1:03 PM EST) Thyroid Stimulating Hormone, Plasma 1.31 0.40 - 4.20 uIU/mL 11/01/2025 7:25 PM EST [facility] Blood Venous blood specimen / Unknown Venipuncture / Unknown 11/01/2025 1:03 PM EST 11/01/2025 1:03 PM EST Narrative [facility] - 11/01/2025 7:25 PM EST Trimester Specific Ranges TSH ( IU/mL) 1st Trimester 0.1 - 3.0 2nd Trimester 0.19 - 4.06 3rd Trimester 0.3 - 3.7 Rodolfo Rhoades MD LAB BLOOD ORDERABLES Final Res ult Performing Organization Address [facility] [place] [place] [address] * Free T4, Plasma (11/01/2025 1:03 PM EST) Free T4, Plasma 1.3 0.8 - 1.7 ng/dL 11/01/2025 7:25 PM EST [facility] Blood Venous blood specimen / Unknown Venipuncture / Unknown 11/01/2025 1:03 PM EST 11/01/2025 1:03 PM EST Narrative [facility] - 11/01/2025 7:25 PM EST Free T4 Trimester Specific Ranges 1st Trimester 0.9 - 1.50 ng/dL 2nd Trimester 0.7 - 1.40 ng/dL 3rd Trimester 0.7 - 1.24 ng/dL Rodolfo Rhoades MD LAB BLOOD [place] [address] * Iron, Plasma (11/01/2025 1:03 PM EST) Only the most recent of2 resultswithin the time period is included. Iron, Plasma 79 30 - 160 ug/dL 11/01/2025 7:25 PM EST [facility] Blood Venous blood specimen / Unknown Venipuncture / Unknown 11/01/2025 1:03 PM EST 11/01/2025 1:03 PM EST Rodolfo Rhoades MD LAB BLOOD ORDERABLES Final Res ult Performing Organization Address City/[facility]/ZIP Co de Phone Number [facility] [address] [place] [address] * (ABNORMAL) Ferritin, Serum (11/01/2025 1:03 PM EST) Only the most recent of2 resultswithin the time period is included. Ferritin, Serum 331(H) 13 - 150 ng/mL 11/01/2025 7:21 PM EST [facility] Blood Venous blood specimen / Unknown Venipuncture / Unknown 11/01/2025 1:03 PM EST 11/01/2025 1:03 PM EST Rodolfo Rhoades MD LAB BLOOD ORDERABLES Final Res t Performing Organization Address [facility] Co de Phone Number [facility] [address] [place] [address] * (ABNORMAL) Comprehensive Metabolic Panel, Plasma (11/01/2025 1:03 PM EST) Only the most recent of20 resultswithin the time period is included. Glucose, Plasma 69(L) 74 - 99 mg/dL 11/01/2025 7:25 PM EST [facility] BUN, Plasma 6(L) 7 - 21 mg/dL 11/01/2025 7:25 PM EST [facility] Creatinine, Plasma 0.64 0.60 - 1.10 mg/dL 11/01/2025 7:25 PM EST [facility] BUN/Creatinine Ratio 9 11/01/2025 7:25 PM EST [facility] Sodium, Plasma 136 136 - 145 mmol/L 11/01/2025 7:25 PM EST [facility] Potassium, Plasma 3.7 3.6 - 4.9 mmol/L 11/01/2025 7:25 PM EST [facility] Chloride, Plasma 99 97 - 107 mmol/L 11/01/2025 7:25 PM EST [facility] CO2, Plasma 27 22 - 29 mmol/L 11/01/2025 7:25 PM EST [facility] Anion Gap 10 6 - 16 mmol/L 11/01/2025 7:25 PM EST [facility] Total Calcium, Plasma 10.1 8.9 - 10.2 mg/dL 11/01/2025 7:25 PM EST [facility] Total Protein 7.8 6.3 - 7.9 g/dL 11/01/2025 7:25 PM EST [facility] Albumin, Plasma 3.9 3.5 - 5.2 g/dL 11/01/2025 7:25 PM EST [facility] AST, Plasma 102(H) 10 - 35 U/L 11/01/2025 7:25 PM EST [facility] ALT, Plasma 92(H) 10 - 35 U/L 11/01/2025 7:25 PM EST [facility] Alkaline Phosphatase, Plasma 146(H) 35 - 104 U/L 11/01/2025 7:25 PM EST [facility] Total Bilirubin, Plasma 0.5 0.2 - 1.1 mg/dL 11/01/2025 7:25 PM EST [facility] eGFRcr 109.2 mL/min/1.7 3m*2 11/01/2025 7:25 PM EST [facility] Comment:Reported eGFRcr in m L/min/1.73m2 is based the CKD-EPI 2020 equation that does not use a race coefficient. Blood Venous blood specimen / Unknown Venipuncture / Unknown 11/01/2025 1:03 PM EST 11/01/2025 1:03 PM EST us Rodolfo Rhoades MD LAB BLOOD ORDERABLES Final Res ult [facility] [address] [place] [address] * POCT SARS-CoV-2 COVID-19 Influenza A,B (11/01/2025 12:36 PM EST) POCT Influenza A PCR Not Detected Not Detected POCT Influenza B PCR Not Detected Not Detected POCT COVID 19 PCR Not Detected Not Detected POCT COVID/Flu A,B Kit Lot [id number] POCT COVID/FLU A,B Kit Expiration 01/27/2027 Nasopharyngeal Swab Nasopharyngeal structure / Unknown 11/01/2025 12:36 PM EST us Rodolfo Rhoades MD POINT OF CARE TEST ENTER/EDIT ORDERABLES Final Result * POCT Strep A PCR (11/01/2025 12:34 PM EST) POCT Strep A PCR Not Detected Not Detected Kit Lot Number [id number] Kit Expiration Date 03/29/2027 Swab Structure of anterior region of neck / Unknown 11/01/2025 12:34 PM EST us Rodolfo Rhoades MD POINT OF CARE TEST ENTER/EDIT ORDERABLES Final Result * Transfuse RBC (11/01/2025 10:00 AM EST) Result [facility] Tammy Caban MD BLOOD TRANSFUSION ORDERABLES E dited Result - Final * Vitamin B12, Serum (09/15/2025 2:12 PM EDT) Vitamin B12, Serum 531 210 - 1,033 pg/mL 09/15/2025 7:49 PM EDT [facility] Blood Venous blood specimen / Unknown Venipuncture / Unknown 09/15/2025 2:12 PM EDT 09/15/2025 2:12 PM EDT Result [facility] us Rodolfo Rhoades MD LAB BLOOD ORDERABLES Final Res ult [facility] [address] [place] [address] * Type and screen (09/06/2025 10:04 AM EDT) ABO/Rh O Negative 09/06/2025 10:30 AM EDT BLOOD BANK Antibody Screen Negative 09/06/2025 10:30 AM EDT BLOOD BANK Specimen Expiration 09/09/2025 23:59 09/06/2025 10:30 AM EDT BLOOD BANK Blood Venous blood specimen / Unknown Venipuncture / Unknown 09/06/2025 10:04 AM EDT 09/06/2025 10:30 AM EDT Tammy Caban MD LAB BLOOD BANK TEST ORDERABLES Final Result BLOOD BANK [address] [place] [address], * Prepare Leukocyte Reduced RBC: 1 Units, Leukocyte reduced (CMV reduced risk) (09/06/2025 9:11 AM EDT) Pathologist [facility] Product Code [id number] BLOO D BANK Dispense Status Transfused BLOOD BANK Blood Expiration Date [id number] BLOOD BANK Unit Number [id number] B LOOD BANK Product Blood Type 9500 BLOOD BANK Blood Type O- BLOOD BANK Crossmatch Compatible BLOOD BANK Other Tammy Caban MD BLOOD BANK PRODUCT ORDERABLES Final Result BLOOD BANK [address] [place] [address], * POCT glucose meter (09/06/2025 6:48 AM EDT) Only the most recent of23 resultswithin the time period is included. [facility] POCT Glucose 91 74 - 99 mg/dL [...] 09/06/2025 7:23 AM EDT [facility] Buffing Wheel Presser ID Rappa, Kamryn 09/06/2025 7:23 AM EDT [facility]ALTH[facility] Device ID [id number] 09/06/2025 7:23 AM EDT [facility] Specimen Type POC Capillary 09/06/2025 7:23 AM EDT [facility] Blood Capillary blood specimen / Unknown 09/06/2025 6:48 AM EDT 09/06/2025 7:23 AM EDT Tammy Caban MD LAB POINT OF CARE TE ST DOCKED DEVICE UNSOLICITED RESULTS Final Result Performing Organization Address [facility] de Phone Number [facility] [address] [place] [address] * Phosphorus, Plasma (09/06/2025 3:37 AM EDT) Only the most recent of17 resultswithin the time period is included. Phosphorus, Plasma 4.0 2.5 - 4.5 mg/dL 09/06/2025 4:51 AM EDT [facility]ALTH[facility] Blood Venous blood specimen / Unknown Venipuncture / Unknown 09/06/2025 3:37 AM EDT 09/06/2025 3:59 AM EDT Emma Lehman MD LAB BLOOD ORDERABLES Final Resu lt Performing Organization Address [facility] de Phone Number [facility] [address] [place] [address] * Magnesium, Plasma (09/06/2025 3:37 AM EDT) Only the most recent of17 resultswithin the time period is included. Magnesium, Plasma 1.9 1.9 - 2.4 mg/dL 09/06/2025 4:51 AM EDT [facility]ALTH[facility] Blood Venous blood specimen / Unknown Venipuncture / Unknown 09/06/2025 3:37 AM EDT 09/06/2025 3:59 AM EDT Emma Lehman MD LAB BLOOD ORDERABLES Final Resu lt Performing Organization Address [facility] de Phone Number [facility] [address] [place] [address] * XR Shoulder Right 2+ Views (08/30/2025 [...] 5:11 PM EDT) Only the most recent of2 resultswithin the time period is included. EKG DIAGNOSIS CLASS Borderline Abnormal MUSE ECG Ventricular Rate 82 BPM MUSE ECG Atrial Rate 82 BPM MUSE ECG PA Interval 132 ms MUSE ECG QRSD Interval 76 ms MUSE ECG QT Interval 362 ms MUSE ECG QTC Interval 422 ms MUSE ECG P Hale 29 degrees MUSE ECG R Hale 7 degrees MUSE ECG T Wave Hale 37 degrees MUSE ECG Diagnosis Normal sinus [...] (SRP) Antibody (SO) (08/26/2025 3:26 AM EDT) Signal Recognition Particle (SRP) Ab Negative Negative 09/16/2025 6:08 PM EDT [facility] ([facility]) Blood Venous blood specimen / Unknown Venipuncture / Unknown 08/26/2025 3:26 AM EDT 08/26/2025 3:35 AM EDT Narrative [facility] ([facility]) - 09/16/2025 6:08 PM EDT This test was developed and its performance characteristics determined by [employer]. It has not been cleared or approved by the Food and Drug Administration. Performed by: [address] [place] [id number] Kash Garcia MD us Stacie Brown MD LAB REF LAB BLOOD AND FLUI D ORD Final Result [facility] ([employer]) [address] [place] [address] * (ABNORMAL) Myositis Antibody Panel (SO) (08/26/2025 3:26 AM EDT) Foster/ELEVATED WORK PLATFORM OPERATOR (PAPA) Ab, IgG 3 0 - 19 Units 09/02/2025 2:19 PM EDT [facility] ([employer]) SSA-52 (RO52) (PAPA) Antibody, IgG 130(H) 0 - 40 AU/mL 09/02/2025 2:19 PM EDT [facility] ([facility] [facility] [employer]) Mulu-1 (Histidyl-tRNA Synthetase) Ab, IgG 3 0 - 40 AU/mL 09/02/2025 2:19 PM EDT [facility] ([facility]) PM/Scl 100 Antibody, IgG Negative Negative 09/02/2025 2:19 PM EDT [facility] ([facility] [facility] [employer]) AZ-2 (NUCLEAR HELICASE PROTEIN) ANTIBODY Negative Negative 09/02/2025 2:19 PM EDT [facility] ([facility]) PL-7 (THREONYL-TRNA SYNTHETASE) ANTIBODY Negative Negative 09/02/2025 2:19 PM EDT [facility] ([facility]) PL-12 (ALANYL-TRNA SYNTHETASE) ANTIBODY Negative Negative 09/02/2025 2:19 PM EDT [facility] ([facility]) P155/140 ANTIBODY Negative Negative 09/02/2025 2:19 PM EDT [facility] ([facility]) EJ (GLYCYL-TRNA SYNTHETASE) ANTIBODY Negative Negative 09/02/2025 2:19 PM EDT [facility] ([facility]) KU ANTIBODY Negative Negative 09/02/2025 2:19 PM EDT [facility] ([facility]) SRP (SIGNAL RECOGNITION PARTICLE) AB Negative Negative 09/02/2025 2:19 PM EDT [facility] ([facility]) OJ (ISOLEUCYL-TRNA SYNTHETASE) ANTIBODY Negative Negative 09/02/2025 2:19 PM EDT [facility] ([facility]) SSA-60 (RO60) (PAPA) Antibody, IgG 1 0 - 40 AU/mL 09/02/2025 2:19 PM EDT [facility] ([facility]) Fibrillarin (U3 ELEVATED WORK PLATFORM OPERATOR) Ab, IgG Negative Negative 09/02/2025 2:19 PM EDT [facility] ([facility]) MYOSITIS PANEL INTERPRETIVE DATA See Note 09/02/2025 2:19 PM EDT [facility] ([facility]) SAE1 (SUMO ACTIVATING ENZYME) AB Negative Negative 09/02/2025 2:19 PM EDT [facility] ([facility]) MDA5 (CADM-140) AB Negative Negative 09/02/2025 2:19 PM EDT [facility] ([facility]) NXP2 (NUCLEAR MATRIX PROTEIN-2) AB Negative Negative 09/02/2025 2:19 PM EDT [facility] ([facility]) TIF-1 GAMMA (155 KDA) AB Negative Negative 09/02/2025 2:19 PM EDT [facility] ([facility]) Anti Nuc Ab Screen <1:80 <1:80 09/02/2025 2:19 PM EDT [facility] ([facility]) BINH INTERPRETIVE COMMENT See Note 09/02/2025 2:19 PM EDT [facility] ([facility]) Smith (tyrosyl-tRNA synthetase) Ab Negative Negative 09/02/2025 2:19 PM EDT [facility] ([facility]) Ks (asparaginyl-tRN A synthetase) Ab Negative Negative 09/02/2025 2:19 PM EDT [facility] ([facility]) Zo (phenylalanyl-tR NA synthetase) Ab Negative Negative 09/02/2025 2:19 PM EDT [facility] ([facility]) HMGCR Antibody Screen Negative Negative 09/02/2025 2:19 PM EDT [facility] ([facility]) Blood Venous blood specimen / Unknown Venipuncture / Unknown 08/26/2025 3:26 AM EDT 08/26/2025 3:35 AM EDT Narrative [facility] ([facility]) - 09/02/2025 2:19 PM EDT INTERPRETIVE INFORMATION: [...] . . . . . . X Foster/ELEVATED WORK PLATFORM OPERATOR (PAPA) Ab, IgG . . . . [...] . . . . X Fibrillarin (U3 ELEVATED WORK PLATFORM OPERATOR) Ab, IgG . . . . . [...] Ab . . . . X HMGCR (3-Zjjjess-0-Methylglutaryl Coenzyme A Reductase) . . . . . . . . X This test was developed and its performance characteristics determined by [facility]. It has not been cleared or approved [...] (interstitial lung disease), Raynaud phenomenon, arthritis, and dental appliance mechanic's hands (implicated in antisynthetase syndrome). INTERPRETIVE INFORMATION: Foster/ELEVATED WORK PLATFORM OPERATOR (PAPA) Antibody, IgG 19 Units or Less ............. Negative 20 to 39 Units ............... Weak Positive 40 to 80 Units ............... Moderate Positive 81 Units or greater .......... Strong Positive Foster/ELEVATED WORK PLATFORM OPERATOR antibodies are frequently seen in patients with mixed connective tissue disease (MCTD) and are also associated with other systemic autoimmune rheumatic diseases (SARDs) such as systemic lupus erythematosus (SLE), systemic sclerosis, and myositis. Antibodies targeting the Foster/ELEVATED WORK PLATFORM OPERATOR antigenic complex also recognize Foster antigens, therefore, [...] developed and its performance characteristics determined by [facility]. It has not been cleared or approved [...] Greater .......... Positive Interpretive Information: Fibrillarin (U3 ELEVATED WORK PLATFORM OPERATOR) Antibody, IgG The presence of fibrillarin (U3-ELEVATED WORK PLATFORM OPERATOR) IgG antibodies in association with an BINH [...] a multi-ethnic cohort of SSc patients (n=98), U3-ELEVATED WORK PLATFORM OPERATOR antibodies detected by immunoblot had an agreement of 98.9 percent with the gold standard immunoprecipitation (IP) assay. Approximately 71 percent (5/7) of the borderline U3-ELEVATED WORK PLATFORM OPERATOR results with BINH nucleolar pattern in this cohort were IP negative. This test was developed and its performance characteristics determined by [facility]. It has not been cleared or approved [...] further testing will be performed. Performed By: [facility] [address] [place] [address] Child Welfare Director: Esvin Pat MD, PhD CLIA Number: [id number] Stacie Brown MD LAB BLOOD ORDERABLES Final Result [employer] [address] [place], [place] [id number] * (ABNORMAL) Cytoplasmic Pattern (08/26/2025 3:26 AM EDT) Cytoplasm Pattern AMA(A) 08/31/2025 11:48 PM EDT [facility] ([facility]) Cytoplasmic Titer 1:80(A) 08/31/2025 11:48 PM EDT [facility] ([facility]) Blood Venous blood specimen / Unknown Venipuncture / Unknown 08/26/2025 3:26 AM EDT 08/26/2025 3:35 AM EDT Narrative [facility] SO[facility] Cubes) - 08/31/2025 11:48 PM EDT Performed By: [facility] [address] [place] [address] Child Welfare Director: Esvin Pat MD, PhD CLIA Number: [id number] Stacie Brown MD LAB BLOOD ORDERABLES Final Result Performing Organization Address [facility] Co de Phone Number [facility] [employer]) [address] [place] [phone] * (ABNORMAL) Anti-smooth muscle antibody, IgG (08/26/2025 3:26 AM EDT) Smooth Muscle Ab, IgG Titer 1:160(H) <1:20 08/28/2025 10:40 PM EDT [facility] ([facility]) Blood Venous blood specimen / Unknown Venipuncture / Unknown 08/26/2025 3:26 AM EDT 08/26/2025 3:35 AM EDT Narrative [facility] [employer]) - 08/28/2025 10:40 PM EDT INTERPRETIVE INFORMATION: Smooth Muscle Ab, IgG Titer Less than 1:20 ........ Negative - No antibody detected. 1:20 - 1:80 .......... Weak Positive - Suggest repeat in two to three weeks with fresh specimen. 1:160 or greater ...... Positive - Suggestive of autoimmune hepatitis or chronic active hepatitis. Performed By: [facility] [address] [place] [address] Child Welfare Director: Esvin Pat MD, PhD CLIA Number: [id number] Stacie Brown MD LAB BLOOD ORDERABLES Final Result Performing Organization Address [facility] Co de Phone Number [facility] [employer]) [address] [phone] * [place] Modified Barium Swallow (08/22/2025 12:21 PM EDT) Anatomical Region Laterality Modality Esophagus, stomach and [...] coursing through the expected location within the [id number]-mp-ainb. Procedure Note Crow Redding MD - 08/22/2025 [...] tubing coursing through the expectedlocation within the nihlf-ia-plyv. IMPRESSION: Intermittent penetration and aspiration of thin [...] Chest 1 View (08/21/2025 6:13 PM EDT) Anatomical Region Laterality Modality Chest [...] and lower lobe opacities. Procedure Note Radha Mcamhon MD - 08/21/2025 CLINICAL INDICATION: Shortness of [...] PM EDT) Case Report Surgical Pathology Case: [id number] Authorizing Provider: Carla Montes MD Collected: 08/21/2025 1525 Ordering Location: [facility] Operating Room Received: 08/22/2025 0636 Pathologist: Jumana Beck MD Specimens: A) - Leg, Right, right thigh muscle biopsy/1 piece fresh, 1 piece placed in formalin, 1 piece placed in Glutaraldehyde B) - Foot, Right, right foot skin biopsy 7:28 PM EDT [facility] Final Diagnosis A. SKELETAL MUSCLE, RIGHT THIGH, BIOPSY: - EXTENSIVE DEGENERATING AND REGENERATING FIBERS WITH SCATTERED MACROPHAGES - SEE COMMENT AND TEMPLATE B. PER DR. ECHEVERRIA, [id number]: RIGHT FOOT: - EPIDERMAL NECROSIS AND CRUSTING (SEE COMMENT). 5 7:28 PM EDT [facility] at 1928 EDT Comment [...] Nader Echeverria. Dr. Echeverria's entire consultation report ([id number]) can be viewed as a scanned document in [employer] 5 7:28 PM EDT [facility] Clinical Information Non-traumatic rhabdomyolysis [M62.82] Clinical [...] Diffuse subcutaneous edema.... 5 7:28 PM EDT [facility] Microscopic Description Skeletal Muscle [...] report. Skin biopsy Description: PER DR. ECHEVERRIA, [id number]: The epidermis is necrotic and crusted. Vasculitis is not seen. Interface change is not conspicuous. The dermis demonstrates loose fibrosis but marked inflammation is not seen. 5 7:28 PM EDT [facility] Special and Immunohistochemical Stains Special Stain: A1-2 Modified Gomori Trichrome A1-3 PAS A1-4 Oil Red O A1-5 ATP - Adenosine Triphophatase A1-6 NADH Tetrazolium Reductase IHC: A2-2 CD3: highlights very rare reactive T cells A2-3 CD20: negative A2-4 HE31-BB3: highlights scattered macrophages within myocytes All controls show appropriate reactivity. All immunohistochemis try, in situ hybridization, and histochemical tests were developed by and are performed at the [facility], [address] [place] [address]. All tests reported here, except those addressing [...] negativity on decalcified specimens. 7:28 PM EDT [facility] Gross Description A. RIGHT [...] in cassette A3. Cold Time: <1m Lizzette Alfred B. RIGHT FOOT SKIN BIOPSY Received in formalin labeled r ight foot skin biopsy , are 2 white-bhatt skin punches that range from 0.4-0.5 cm in greatest dimension. Entirely submitted in cassette B1. Cold Time: <1m Lizzette Alfred 7:28 PM EDT [facility] Note: A resident was involved in the service. I attest I examined the relevant preparations for the specimens and confirmed the diagnosis or interpretation. 7:28 PM EDT [facility] Tissue Structure of right [...] Montes MD LAB PATHOLOGY ORDERABLES Final Result Performing Organization Address City/[facility]/ZIP Co de Phone Number [facility] [address] [place] [address] * PERIPHERAL IV (SMARTFORM LINK) (08/21/2025 1:25 PM EDT) Narrative Patito Vasquez RN - 08/21/2025 1:25 [...] collected in epic and delivered to lab. Stacie Brown MD IV THERAPY ORDERABLES Rosa Maria driscoll Result * Ionized calcium, whole blood (08/21/2025 12:12 PM EDT) Ionized Calcium, Whole Blood 5.0 4.6 - 5.1 mg/dL LAB HEMATOLOGY METHOD 08/21/2025 12:25 PM EDT [facility] Blood Venous blood specimen / Unknown Venipuncture / Unknown 08/21/2025 12:12 PM EDT 08/21/2025 12:23 PM EDT us Yeni Landis APRN LAB BLOOD ORDERABLES Rosa Maria l Result [facility] [address] [place] [id number] * Encephalopathy, Autoimm/Paraneo, Serum (SO) (08/21/2025 12:12 PM EDT) AMPA-R Ab CBA, S Negative Negative 08/29/20 25 9:16 AM EDT [facility] ([facility]) Comment: ADDITIONAL INFORMATION This test was developed and its performance characteristics determined by [facility] in a manner consistent with CLIA requirements. This test has not been cleared or approved by the U.S. Food and Drug Administration. Amphiphysin Ab, S Negative Negative 025 9:16 AM EDT [facility] ([facility]) Comment: ADDITIONAL INFORMATION This test was developed and its performance characteristics determined by [facility] in a manner consistent with CLIA requirements. This test has not been cleared or approved by the U.S. Food and Drug Administration. AGNA-1, S Negative Negative 08/29/2025 9:16 AM EDT [facility] ([facility]) Comment: ADDITIONAL INFORMATION This test was developed and its performance characteristics determined by [facility] in a manner consistent with CLIA requirements. This test has not been cleared or approved by the U.S. Food and Drug Administration. DARNELL-1, S Negative Negative 08/29/2025 9:16 AM EDT [facility] ([facility]) Comment: ADDITIONAL INFORMATION This test was developed and its performance characteristics determined by [facility] in a manner consistent with CLIA requirements. This test has not been cleared or approved by the U.S. Food and Drug Administration. DARNELL-2, S Negative Negative 08/29/2025 9:16 AM EDT [facility] ([facility]) Comment: ADDITIONAL INFORMATION This test was developed and its performance characteristics determined by [facility] in a manner consistent with CLIA requirements. This test has not been cleared or approved by the U.S. Food and Drug Administration. DARNELL-3, S Negative Negative 08/29/2025 9:16 AM EDT [facility] ([facility]) Comment: ADDITIONAL INFORMATION This test was developed and its performance characteristics determined by [facility] in a manner consistent with CLIA requirements. This test has not been cleared or approved by the U.S. Food and Drug Administration. CASPR2-IgG CBA, S Negative Negative 9:16 AM EDT [facility] ([facility]) Comment: ADDITIONAL INFORMATION This test was developed and its performance characteristics determined by [facility] in a manner consistent with CLIA requirements. This test has not been cleared or approved by the U.S. Food and Drug Administration. CRMP-5-IgG, S Negative Negative 08/29/2025 9:16 AM EDT [facility] ([facility]) Comment: ADDITIONAL INFORMATION This test was developed and its performance characteristics determined by [facility] in a manner consistent with CLIA requirements. This test has not been cleared or approved by the U.S. Food and Drug Administration. KAT-B-R Ab CBA, S Negative Negative 2024 9:16 AM EDT [facility] Comment: ADDITIONAL INFORMATION This test was developed and its performance characteristics determined by [facility] in a manner consistent with CLIA requirements. This test has not been cleared or approved by the U.S. Food and Drug Administration. GAD65 Ab Assay, S 0.00 <=0.02 nmol/L 08/29/2025 9:16 AM EDT [facility] ([facility]) Comment: ADDITIONAL INFORMATION This test was developed and its performance characteristics determined by [facility] in a manner consistent with CLIA requirements. This test has not been cleared or approved by the U.S. Food and Drug Administration. LGI1-IgG CBA, S Negative Negative 9:16 AM EDT [facility] ([facility]) Comment: ADDITIONAL INFORMATION This test was developed and its performance characteristics determined by [facility] in a manner consistent with CLIA requirements. This test has not been cleared or approved by the U.S. Food and Drug Administration. mGluR1 Ab IFA, S Negative Negative 08/29/20 9:16 AM EDT [facility] ([facility]) Comment: ADDITIONAL INFORMATION This test was developed and its performance characteristics determined by [facility] in a manner consistent with CLIA requirements. This test has not been cleared or approved by the U.S. Food and Drug Administration. NMDA-R Ab CBA, S Negative Negative 08/29/20 9:16 AM EDT [facility] Comment: ADDITIONAL INFORMATION This test was developed and its performance characteristics determined by [facility] in a manner consistent with CLIA requirements. This test has not been cleared or approved by the U.S. Food and Drug Administration. STRETCHING MACHINE TENDER FRAME-1, S Negative Negative 08/29/2025 9:16 AM EDT [facility] Comment: ADDITIONAL INFORMATION This test was developed and its performance characteristics determined by [facility] in a manner consistent with CLIA requirements. This test has not been cleared or approved by the U.S. Food and Drug Administration. STRETCHING MACHINE TENDER FRAME-2, S Negative Negative 08/29/2025 9:16 AM EDT [facility] Comment: ADDITIONAL INFORMATION This test was developed and its performance characteristics determined by [facility] in a manner consistent with CLIA requirements. This test has not been cleared or approved by the U.S. Food and Drug Administration. STRETCHING MACHINE TENDER FRAME-Tr, S Negative Negative 08/29/2025 9:16 AM EDT [facility] ([facility]) Comment: ADDITIONAL INFORMATION This test was developed and its performance characteristics determined by [facility] in a manner consistent with CLIA requirements. This test has not been cleared or approved by the U.S. Food and Drug Administration. GFAP IFA, S Negative Negative 08/29/2025 9:16 AM EDT [facility] ([facility]) Comment: ADDITIONAL INFORMATION This test was developed and its performance characteristics determined by [facility] in a manner consistent with CLIA requirements. This test has not been cleared or approved by the U.S. Food and Drug Administration. NIF IFA, S Negative Negative 08/29/2025 9:16 AM EDT [facility] Comment: ADDITIONAL INFORMATION This test was developed and its performance characteristics determined by [facility] in a manner consistent with CLIA requirements. This test has not been cleared or approved by the U.S. Food and Drug Administration. Neurochondrin IFA, S Negative Negative 08/29/2025 9:16 AM EDT [facility] ([facility]) Comment: ADDITIONAL INFORMATION This test was developed and its performance characteristics determined by [facility] in a manner consistent with CLIA requirements. This test has not been cleared or approved by the U.S. Food and Drug Administration. SEPTIN-7 IFA, S Negative Negative 9:16 AM EDT [facility] ([facility]) Comment: ADDITIONAL INFORMATION This test was developed and its performance characteristics determined by [facility] in a manner consistent with CLIA requirements. This test has not been cleared or approved by the U.S. Food and Drug Administration. IFA Notes None. 08/29/2025 9:16 AM EDT [facility] ([facility]) Encephalopathy, Interpretation, S SEE COMMENTS 08/29/2025 9:16 AM T [facility] ([facility]) Comment: No informative autoantibodies were detected in this evaluation. However, a negative result does not exclude autoimmune encephalopathy, idiopathic or paraneoplastic. Sensitivity and specificity of antibody testing are enhanced by testing both serum and CSF. DPPX Ab CBA, S Negative Negative 08/29/2025 9:16 AM EDT [facility] ([facility]) Comment: ADDITIONAL INFORMATION This test was developed and its performance characteristics determined by [facility] in a manner consistent with CLIA requirements. This test has not been cleared or approved by the U.S. Food and Drug Administration. IgLON5 CBA, S Negative Negative 08/29/2025 9:16 AM EDT [facility] ([facility]) Comment: ADDITIONAL INFORMATION This test was developed and its performance characteristics determined by [facility] in a manner consistent with CLIA requirements. This test has not been cleared or approved by the U.S. Food and Drug Administration. PDE10A Ab IFA, S Negative Negative 08/29/20 9:16 AM EDT [facility] ([facility]) Comment: ADDITIONAL INFORMATION This test was developed and its performance characteristics determined by [facility] in a manner consistent with CLIA requirements. This test has not been cleared or approved by the U.S. Food and Drug Administration. TRIM46 Ab IFA, S Negative Negative 08/29/20 9:16 AM EDT [facility] ([facility]) Comment: ADDITIONAL INFORMATION This test was developed and its performance characteristics determined by [facility] in a manner consistent with CLIA requirements. This test has not been cleared or approved by the U.S. Food and Drug Administration. Test Performed by: [facility] [place] [address] Alumni Relations Manager: Gerber Noel Ph.D.; CLIA# [id number] Blood Venous blood specimen / Unknown Venipuncture / Unknown 08/21/2025 12:12 PM EDT 08/21/2025 12:22 PM EDT us Stacie Brown MD LAB BLOOD ORDERABLES Final Result [facility] ([facility]) * IR Lumbar Puncture (08/21/2025 10:42 [...] AM COMPARISON: MR head reviewed from 08/19/2025. ADJUNCT SPANISH INSTRUCTOR: Emma Lebron PA-C SECONDARY EQUIPMENT MAINTENANCE SUPERVISOR: RT Rowan CONTRAST: 0 cc MEDICATIONS: [...] AM COMPARISON: MR head reviewed from 08/19/2025. ADJUNCT SPANISH INSTRUCTOR: Emma Lebron PA-C SECONDARY EQUIPMENT MAINTENANCE SUPERVISOR: RT Rowan CONTRAST: 0 cc MEDICATIONS: [...] BODY FLUIDS AND STOOLS ORDERABLES Final Result [facility] [address] [place] [address] * Meningitis/Encephalitis Panel by PCR (08/21/2025 10:36 AM EDT) Escherichia coli K1 PCR Result Not Detected Not Detected 08/22/2025 8:06 AM EDT [facility] Haemophilus influenzae PCR Result Not Detected Not Detected 08/22/2025 8:06 AM EDT [facility] Listeria monocytogenes PCR Result Not Detected Not Detected 08/22/2025 8:06 AM EDT [facility] Neisseria meningitidis PCR Result Not Detected Not Detected 08/22/2025 8:06 AM EDT [facility] Streptococcus agalactiae PCR Result Not Detected Not Detected 08/22/2025 8:06 AM EDT [facility] Streptococcus pneumoniae PCR Result Not Detected Not Detected 08/22/2025 8:06 AM EDT [facility] Cytomegalovirus (CMV) PCR Result Not Detected Not Detected 08/22/2025 8:06 AM EDT [facility] Enterovirus (EV) PCR Result Not Detected Not Detected 08/22/2025 8:06 AM EDT [facility] Herpes Simplex Virus 1 (HSV-1) PCR Result Not Detected Not Detected 08/22/2025 8:06 AM EDT [facility] Herpes Simplex Virus 2 (HSV-2) PCR Result Not Detected Not Detected 08/22/2025 8:06 AM EDT [facility] Human Herpes Virus 6 (HHV-6) PCR Result Not Detected Presumptive Negative 08/22/2025 8:06 AM EDT [facility] Human Parechovirus (HPeC) PCR Result Not Detected Not Detected 08/22/2025 8:06 AM EDT [facility] Varicella Zoster Virus (VZV) PCR Result Not Detected Not Detected 08/22/2025 8:06 AM EDT [facility] Cryptococcus neoformans/gattii PCR Result Not Detected Not Detected 08/22/2025 8:06 AM EDT [facility] Cerebrospinal Fluid Lumbar puncture / Unknown Non-blood Collection / Unknown 08/21/2025 10:36 AM EDT 08/21/2025 12:24 PM EDT Narrative [facility] - 08/22/2025 8:06 AM [...] LAB MICROBIOLOGY - GENERAL ORDERABLES Final Result [facility] [address] [place] [address] * Freeze and Hold (08/21/2025 10:36 AM EDT) Pathologist [facility] Freeze and Hold Result The specimen has been received and verified. All specimens are held 30 days before discarding. Time of verification: 222709/22/2025 7:54 AM EDT [facility] Estimated Volume of Specimen 1.0-2.0 mL 09/22/2025 7:54 AM EDT [facility] Cerebrospinal Fluid Lumbar puncture / Unknown Non-blood Collection / Unknown 08/21/2025 10:36 AM EDT 08/21/2025 12:24 PM EDT Stacie Brown MD LAB MICROBIOLOGY - GENERAL ORDERABLES Final Result Performing Organization Address [facility] Co de Phone Number [facility] [address] [place] [address] * Cerebrospinal Fluid (CSF) Culture and Gram Stain (08/21/2025 10:36 AM EDT) Culture No growth at day 4 2024 8:35 AM EDT [facility] Gram Stain No polymorphonuclear leukocytes seen 08/24/2025 8:35 AM EDT [facility] Gram Stain No organisms seen 025 8:35 AM EDT [facility] Cerebrospinal Fluid Lumbar puncture / Unknown Non-blood Collection / Unknown 08/21/2025 10:36 AM EDT 08/21/2025 12:24 PM EDT Stacie Brown MD LAB MICROBIOLOGY - GENERAL ORDERABLES Final Result Performing Organization Address [facility] Phone Number [facility] [address] [place] [address] * Non-Gynecologic Cytology (08/21/2025 10:36 AM EDT) Case Report Cytology Case: [id number] Authorizing Provider: Stacie Brown MD Collected: 08/21/2025 1036 Ordering Location: [facility] Inpatient Received: 08/22/2025 0756 Pathologist: Annemarie Gibbs MD Specimen: Lumbar Puncture, CEREBROSPINAL FLUID 08/22/2025 5:51 PM EDT [facility] Final Diagnosis A. CEREBROSPINAL FLUID - NO EVIDENCE OF MALIGNANCY, RARE MONONUCLEAR CELLS 08/22/2025 5:51 PM EDT [facility] at 1751 EDT Clinical History progressive weakness, BUE, BLE, dysphagia, bullae 08/22/2025 5:51 PM EDT [facility] Previous Cancer No 5:51 PM EDT [facility] Gross Description A. CEREBROSPINAL FLUID 1.0 ml's of clear fluid in tube #1, 2.0 ml's of clear fluid in tube #2, 0.5 ml's of clear fluid in tube #3 and 1.0 ml's of clear fluid in tube #4 all for thinprep 08/22/2025 5:51 PM EDT [facility] Special Instructions opening pressure 08/22/2025 5:51 PM EDT [facility] Cerebrospinal Fluid Lumbar puncture / Unknown Non-blood Collection / Unknown 08/21/2025 10:36 AM EDT 08/22/2025 7:56 AM EDT us Stacie Brown MD LAB CYTOLOGY ORDERABLES Fi nal Result [facility] [address] [place] [address] * CSF Cell Count w/ Manual Differential (08/21/2025 10:27 AM EDT) Unspun Color, CSF Colorless Colorless LAB HEMATOLOGY METHOD 08/21/2025 4:37 PM EDT [facility] Unspun Clarity, CSF Clear Clear LAB HEMATOLOGY METHOD 08/21/2025 4:37 PM EDT [facility] Spun Color, CSF LAB HEMATOLOGY METHOD 08/21/2025 4:37 PM EDT [facility] Comment:Test Not Indicated Spun Clarity, CSF LAB HEMATOLOGY METHOD 08/21/2025 4:37 PM EDT [facility] Comment:Test Not Indicated Volume CSF 5.0 cc LAB HEMATOLOGY METHOD 08/21/2025 4:37 PM EDT [facility] Tube Number, CSF Tube 4 LAB HEMATOLOGY METHOD 08/21/2025 4:37 PM EDT [facility] Red Blood Cell Count, CSF 157 0 uL uL LAB HEMATOLOGY METHOD 08/21/2025 4:37 PM EDT [facility] Comment:Test performed by fidel alberts. Total Nucleated Cell Count, CSF 2 0 - 5 L LAB HEMATOLOGY METHOD 08/21/2025 4:37 PM EDT [facility] Comment:Test performed by fidel arias method. Neutrophils %, CSF LAB HEMATOLOGY METHOD 08/21/2025 4:37 PM EDT [facility] Comment:Too few to count Lymphocytes %, CSF LAB HEMATOLOGY METHOD 08/21/2025 4:37 PM EDT [facility] Comment:Too few to count Monocytes/Macro phages %, CSF LAB HEMATOLOGY METHOD 08/21/2025 4:37 PM EDT [facility] Comment:Too few to count Eosinophils %, CSF LAB HEMATOLOGY METHOD 08/21/2025 4:37 PM EDT [facility] Comment:Too few to count Basophils %, CSF LAB HEMATOLOGY METHOD 08/21/2025 4:37 PM EDT [facility] Comment:Too few to count Neutrophils Absolute, CSF LAB HEMATOLOGY METHOD 08/21/2025 4:37 PM EDT [facility] Comment:Too few to count Lymphocytes Absolute, CSF LAB HEMATOLOGY METHOD 08/21/2025 4:37 PM EDT [facility] Comment:Too few to count Monocytes/Macro phages Absolute, CSF LAB HEMATOLOGY METHOD 08/21/2025 4:37 PM EDT [facility] Comment:Too few to count Eosinophils Absolute, CSF LAB HEMATOLOGY METHOD 08/21/2025 4:37 PM EDT [facility] Comment:Too few to count Basophils Absolute, CSF LAB HEMATOLOGY METHOD 08/21/2025 4:37 PM EDT [facility] Comment:Too few to count Cerebrospinal Fluid Lumbar puncture / Unknown Non-blood Collection / Unknown 08/21/2025 10:27 AM EDT 08/21/2025 12:31 PM EDT us Stacie Brown MD LAB BODY FLUIDS AND STOOLS ORDERABLES Final Result [facility] [address] [place] [address] * Encephalopathy, Autoimm/Paraneo, CSF (SO) (08/21/2025 10:27 AM EDT) AMPA-R Ab CBA, CSF Negative Negative [facility] Comment: ADDITIONAL INFORMATION This test was developed and its performance characteristics determined by [facility] in a manner consistent with CLIA requirements. This test has not been cleared or approved by the U.S. Food and Drug Administration. Amphiphysin Ab, CSF Negative Negative 08/29/2025 9:16 AM EDT [facility] ([facility]) Comment: ADDITIONAL INFORMATION This test was developed and its performance characteristics determined by [facility] in a manner consistent with CLIA requirements. This test has not been cleared or approved by the U.S. Food and Drug Administration. SAMARAA-1, CSF Negative Negative 08/29/2025 9:16 AM T [facility] ([facility]) Comment: ADDITIONAL INFORMATION This test was developed and its performance characteristics determined by [facility] in a manner consistent with CLIA requirements. This test has not been cleared or approved by the U.S. Food and Drug Administration. DARNELL-1, CSF Negative Negative 08/29/2025 9:16 AM EDT [facility] ([facility]) Comment: ADDITIONAL INFORMATION This test was developed and its performance characteristics determined by [facility] in a manner consistent with CLIA requirements. This test has not been cleared or approved by the U.S. Food and Drug Administration. DARNELL-2, CSF Negative Negative 08/29/2025 9:16 AM EDT [facility] ([facility]) Comment: ADDITIONAL INFORMATION This test was developed and its performance characteristics determined by [facility] in a manner consistent with CLIA requirements. This test has not been cleared or approved by the U.S. Food and Drug Administration. DARNELL-3, CSF Negative Negative 08/29/2025 9:16 AM EDT [facility] Comment: ADDITIONAL INFORMATION This test was developed and its performance characteristics determined by [facility] in a manner consistent with CLIA requirements. This test has not been cleared or approved by the U.S. Food and Drug Administration. CASPR2-IgG CBA, CSF Negative Negative 08/29/2025 9:16 AM EDT [facility] ([facility]) Comment: ADDITIONAL INFORMATION This test was developed and its performance characteristics determined by [facility] in a manner consistent with CLIA requirements. This test has not been cleared or approved by the U.S. Food and Drug Administration. CRMP-5-IgG, CSF Negative Negative 9:16 AM EDT [facility] ([facility]) Comment: ADDITIONAL INFORMATION This test was developed and its performance characteristics determined by [facility] in a manner consistent with CLIA requirements. This test has not been cleared or approved by the U.S. Food and Drug Administration. KAT-B-R Ab CBA, CSF Negative Negative 08/29/2025 9:16 AM EDT [facility] Comment: ADDITIONAL INFORMATION This test was developed and its performance characteristics determined by [facility] in a manner consistent with CLIA requirements. This test has not been cleared or approved by the U.S. Food and Drug Administration. GAD65 Ab Assay, CSF 0.00 <=0.02 nmol/L 08/29/2025 9:16 AM EDT [facility] Comment: ADDITIONAL INFORMATION This test was developed and its performance characteristics determined by [facility] in a manner consistent with CLIA requirements. This test has not been cleared or approved by the U.S. Food and Drug Administration. GFAP IFA, CSF Negative Negative 08/29/2025 9:16 AM EDT [facility] ([facility]) Comment: ADDITIONAL INFORMATION This test was developed and its performance characteristics determined by [facility] in a manner consistent with CLIA requirements. This test has not been cleared or approved by the U.S. Food and Drug Administration. LGI1-IgG CBA, CSF Negative Negative 9:16 AM EDT [facility] ([facility]) Comment: ADDITIONAL INFORMATION This test was developed and its performance characteristics determined by [facility] in a manner consistent with CLIA requirements. This test has not been cleared or approved by the U.S. Food and Drug Administration. mGluR1 Ab IFA, CSF Negative Negative 2024 9:16 AM EDT [facility] ([facility]) Comment: ADDITIONAL INFORMATION This test was developed and its performance characteristics determined by [facility] in a manner consistent with CLIA requirements. This test has not been cleared or approved by the U.S. Food and Drug Administration. NIF IFA, CSF Negative Negative 08/29/2025 9:16 AM EDT [facility] ([facility]) Comment: ADDITIONAL INFORMATION This test was developed and its performance characteristics determined by [facility] in a manner consistent with CLIA requirements. This test has not been cleared or approved by the U.S. Food and Drug Administration. NMDA-R Ab CBA, CSF Negative Negative 2024 9:16 AM EDT [facility] ([facility]) Comment: ADDITIONAL INFORMATION This test was developed and its performance characteristics determined by [facility] in a manner consistent with CLIA requirements. This test has not been cleared or approved by the U.S. Food and Drug Administration. STRETCHING MACHINE TENDER FRAME-1, CSF Negative Negative 08/29/2025 9:16 AM EDT [facility] ([facility]) Comment: ADDITIONAL INFORMATION This test was developed and its performance characteristics determined by [facility] in a manner consistent with CLIA requirements. This test has not been cleared or approved by the U.S. Food and Drug Administration. STRETCHING MACHINE TENDER FRAME-2, CSF Negative Negative 08/29/2025 9:16 AM EDT [facility] ([facility]) Comment: ADDITIONAL INFORMATION This test was developed and its performance characteristics determined by [facility] in a manner consistent with CLIA requirements. This test has not been cleared or approved by the U.S. Food and Drug Administration. Neurochondrin IFA, CSF Negative Negative 08/29/2025 9:16 AM EDT [facility] Comment: ADDITIONAL INFORMATION This test was developed and its performance characteristics determined by [facility] in a manner consistent with CLIA requirements. This test has not been cleared or approved by the U.S. Food and Drug Administration. Septin-7 IFA, CSF Negative Negative 9:16 AM EDT [facility] Comment: ADDITIONAL INFORMATION This test was developed and its performance characteristics determined by [facility] in a manner consistent with CLIA requirements. This test has not been cleared or approved by the U.S. Food and Drug Administration. STRETCHING MACHINE TENDER FRAME-TR, CSF Negative Negative 08/29/2025 9:16 AM EDT [facility]) Comment: ADDITIONAL INFORMATION This test was developed and its performance characteristics determined by [facility] in a manner consistent with CLIA requirements. This test has not been cleared or approved by the U.S. Food and Drug Administration. Encephalopathy, Interpretation, CSF SEE COMMENTS 08/29/2025 9:16 AM [facility]) Comment: No informative autoantibodies were detected in this evaluation. However, a negative result does not exclude autoimmune encephalopathy, idiopathic or paraneoplastic. Sensitivity and specificity of antibody testing are enhanced by testing both serum and CSF. IFA Notes None. 08/29/2025 9:16 AM EDT [facility] ([facility]) DPPX Ab CBA, CSF Negative Negative 08/29/20 9:16 AM EDT [facility] ([facility]) Comment: ADDITIONAL INFORMATION This test was developed and its performance characteristics determined by [facility] in a manner consistent with CLIA requirements. This test has not been cleared or approved by the U.S. Food and Drug Administration. IgLON5 CBA, CSF Negative Negative 9:16 AM EDT [facility] Comment: ADDITIONAL INFORMATION This test was developed and its performance characteristics determined by [facility] [facility] in a manner consistent with CLIA requirements. This test has not been cleared or approved by the U.S. Food and Drug Administration. PDE10A Ab IFA, CSF Negative Negative 2024 9:16 AM EDT [facility] Comment: ADDITIONAL INFORMATION This test was developed and its performance characteristics determined by [facility] in a manner consistent with CLIA requirements. This test has not been cleared or approved by the U.S. Food and Drug Administration. TRIM46 Ab IFA, CSF Negative Negative 2024 9:16 AM EDT [facility]) Comment: ADDITIONAL INFORMATION This test was developed and its performance characteristics determined by [facility] in a manner consistent with CLIA requirements. This test has not been cleared or approved by the U.S. Food and Drug Administration. Test Performed by: [address] [address] Alumni Relations Manager: Gerber Noel Ph.D.; CLIA# [id number] Cerebrospinal Fluid Cerebrospinal fluid specimen / Unknown Non-blood Collection / Unknown 08/21/2025 10:27 AM EDT 08/21/2025 12:35 PM EDT Stacie Brown MD LAB BODY FLUIDS AND STOOLS ORDERABLES Final Result Performing Organization Address City/[facility] Co de Phone Number [facility]) * Protein, CSF (08/21/2025 10:27 AM EDT) Total Protein, CSF 18 15 - 45 mg/dL 08/21/2025 3:50 PM EDT [facility] Cerebrospinal Fluid Lumbar puncture / Unknown Non-blood Collection / Unknown 08/21/2025 10:27 AM EDT 08/21/2025 12:35 PM EDT Narrative [facility] - 08/21/2025 3:50 PM EDT Blood, when present in CSF, invalidates protein. Interpret results in the context of the patient's condition and other laboratory results. Stacie Brown MD LAB BODY FLUIDS AND STOOLS ORDERABLES Final Result Performing Organization Address City/State/[facility] Co de Phone Number [facility] [address] [place] [address] * Lactic acid, CSF (08/21/2025 10:27 AM EDT) [facility] Lactate, CSF 1.3 1.1 - 2.4 mmol/L 08/21/2025 4:04 PM EDT [facility] Cerebrospinal Fluid Lumbar puncture / Unknown Non-blood Collection / Unknown 08/21/2025 10:27 AM EDT 08/21/2025 12:35 PM EDT Narrative [facility] - 08/21/2025 4:04 PM EDT CSF reference intervals are based on literature values and have not been verified at the [facility]. Stacie Brown MD LAB BODY FLUIDS AND STOOLS ORDERABLES Final Result Performing Organization Address [facility] Co de Phone Number [facility] [address] [place] [address] * Glucose, CSF (08/21/2025 10:27 AM EDT) [facility] Glucose, CSF 67 41 - 70 mg/dL 08/21/2025 3:50 PM EDT [facility] Cerebrospinal Fluid Lumbar puncture / Unknown Non-blood Collection / Unknown 08/21/2025 10:27 AM EDT 08/21/2025 12:35 PM EDT Narrative [facility] - 08/21/2025 3:50 PM EDT CSF glucose values should be approximately 60 % of the plasma values and must always be compared with concurrently measured plasma values for adequate clinical interpretation. No reference ranges have been established for pediatric patients. us Stacie Brown MD LAB BODY FLUIDS AND STOOLS ORDERABLES Final Result Performing Organization Address City/[facility]/ZIP Co de Phone Number [facility] [address] [place] [address] * Human Immunodeficiency Virus (HIV-1) Quantitative PCR (08/12/2025 5:12 PM EDT) [facility] Human Immunodeficiency Virus (HIV-1) Quant Interpretation Not Detected Not Detected 08/15/2025 9:44 PM EDT [facility] Blood Venous blood specimen / Unknown Venipuncture / Unknown 08/12/2025 5:12 PM EDT 08/12/2025 5:17 PM EDT Narrative [facility] - 08/15/2025 9:44 PM [...] LAB BLOOD ORDERABLES Rosa Maria l Result [facility] [address] [place] [address] * Hepatitis panel, acute (08/09/2025 3:57 AM EDT) Hepatitis B Surf Antigen Negative Negative 08/09/2025 5:37 AM EDT [facility] Hepatitis C Antibody Negative Negative 08/09/2025 5:37 AM EDT [facility] Hepatitis A Antibody IgM Negative Negative 08/09/2025 5:37 AM EDT [facility] Hepatitis B Core Antibody IgM Negative Negative 08/09/2025 5:37 AM EDT [facility] Blood Venous blood specimen / Unknown Venipuncture / Unknown 08/09/2025 3:57 AM EDT 08/09/2025 4:29 AM EDT us Tammy Bustamante MD LAB BLOOD ORDERABLES Final Resu lt [facility] [address] [place] [address] * Hemoglobin A1c (08/07/2025 5:05 AM EDT) External Hemoglobin A1c 5.5 3.8 - 5.6 % [facility] Comment: GLYCOSYLATED HEMOGLOBIN (A1C) EXPECTED RANGES: <6.5 NON-DIABETIC 6.5-7.5 EXCELLENT 7.5-8.5 GOOD >8.5 POOR 08/07/2025 5:05 AM EDT 08/07/2025 5:38 AM EDT us Generic [place] Provider LAB BLOOD ORDERABLES Final Result [facility] * Colonoscopy External Result (02/24/2025) Anatomical Region [...] updated to appropriate status: Yes Care Teams Oil Well Logging Engineer Relationship Specialty Start Date End Date Rodolfo Rhoades MD [address] [place] [address] PCP - General Family Medicine 02/02/25 Keyonna Goff Community Health Worker 11/01/25
--- OUTSIDE RECORDS SUMMARY | 2025-11-20 14:09 | XMS_ITS | Encounter Summary ---
Author Organization Healthcare Address [address] [id number] Care Team Providers Care News Content Specialist Name Role Phone Rodolfo Rhoadse MD Primary Care Provider [phone] So Caicedo LPN Unavailable Unavailable Keyonna Goff Unavailable Unavailable Encounter Details Date Type Department Care Team (Late st Contact Info) Description 08/06/2025 Outside Procedure External Location [address] [place] [phone] Provider, Swapnil [place] Social History Tobacco Use Types Packs/Day Years [...] any time in the past 12 m [facility], were you homeless or living in a usp (including now)? No 08/09/2025 [facility] Utilities Answer Date Recorded In [...] Description 12/08/2025 11:20 AM EST Office Visit [facility] [address] [place] [address] Rodolfo Rhoades MD [address] [place] [address] documented as of this encounter Procedures Procedure Name Priority Date/Time Associated Diagnosis Comments XR ANKLE RIGHT 2 VIEWS 08/06/2025 12:23 PM EDT documented in this encounter Results * XR Ankle Right 2 Views (08/06/2025 12:23 PM EDT) Anatomical Region Laterality Modality Lower Extremities, Ankle Right Digital Radiography 08/06/2025 12:2 3 PM EDT Narrative 08/06/2025 12:43 [place] [address] Name: HAILEY ALVAREZ Exam Date: 08/06/2025 : 1975 Age 49 years Gender: F Physician: LOBO LOWERY Facility: [facility] Facility HSV: Inpatient Exam: ANKLE 2V RT XR ANKLE 2 VIEWS RIGHT, 08/06/2025 11:34 AM CDT CLINICAL INDICATION: Female, 49 years old. Acute swelling, unable to bear weight COMPARISON: No existing relevant imaging and/or the patient did not have previous relevant imaging. Number of Views: 2 views of the right ankle was/were obtained. [id number]. FINDINGS / IMPRESSION: Diffuse subcutaneous edema. No [...] [facility]. Legally authenticated by SEMAJ Momin 2025-08-06 12:39:28 Procedure Note Provider, Generic [place] - 08/06/2025 [place] [address] Name: HAILEY ALVAREZ Exam Date: 08/06/2025 : 1975 Age 49 years Gender: F Physician: LOBO LOWERY Facility: [facility] Facility HSV: Inpatient Exam: ANKLE 2V RT XR ANKLE 2 VIEWS RIGHT, 08/06/2025 11:34 AM CDT CLINICAL INDICATION: Female, 49 years old. Acute swelling, unable tobear weight COMPARISON: No existing relevant imaging and/or the patient did not have previous relevant imaging. Number of Views: 2 views of the right ankle was/were obtained. [id number]. FINDINGS / IMPRESSION: Diffuse subcutaneous edema. No acute fracture or dislocation. Anatomic osseous alignment. Anklemortise is congruent. Negative for joint effusion. . . . S/D/G Electronically signed by: Blu Wasserman MD 08/06/2025 12:39 PM EDTRP Dictated By: Blu Wasserman Transcribed By: Transcribed On: 08/06/2025 12:39 PM Electronically signed by: Blu Wassermna 08/06/2025 Thank you for referring HAILEY ALVAREZ to [facility]. Legally authenticated by SEMAJ Momin 2025-08-06 12:39:28 Generic [place] Provider IMG XR PROCEDURES Fi nal Result [...] documented as of this encounter Care Teams News Content Specialist Relationship Specialty Start Date End Date Rodolfo Rhoades MD [address] [place] [phone] PCP - General Family Medicine 02/02/25 So Caicedo, ANTOINE VALUE[employer] [address] None TCM Nurse 09/07/25 10/07/25 Keyonna Goff Community Health Worker 11/01/25 documented as of this encounter
--- OUTSIDE RECORDS SUMMARY | 2025-11-20 14:09 | XMS_ITS | Encounter Summary ---
Author Organization [facility] Address [facility] [place] [address] Care Team Providers Care Swift Tender Name Role Phone Georgette Moore APRN Primary Care Provider [phone] Veronica Goodwin LPN Unavailable Unavailable Margaret Ro Unavailable Unavailable Rodolfo Rhoades MD Primary Care Provider [phone] Marianne Bolaños Unavailable Unavailable Ariana Bagley Unavailable Unavailable oS Caicedo FOUNDATION COORDINATOR Unavailable Unavailable Kyeonna Goff Unavailable Unavailable Reason for Visit * Reason Comments Med Refill Encounter Details Date Type Department Care Team (Late st Contact Info) Description 05/13/2021 Refill [facility] [address] [place] [address] Georgette Moore APRN [address] [place] [address] Social History Tobacco Use Types [...] EST Office Visit [facility] [address] [place] [address] Rodolfo Rhoades MD [address] [place] [address] documented as of this encounter Visit [...] Rule-Out 11/01/2025 11/01/2025 11/01/2025 12:36 PM EST documented as of this encounter Care Teams Swift Tender Relationship Specialty Start Date End Date Georgette Moore APRN [address] [place] [address] PCP - General 04/12/21 02/01/25 Rodolfo Rhoades MD [facility] [place] [address] PCP - General Family Medicine 02/02/25 Veronica Goodwin LPN [employer] [place] [address] None TCM Nurse 07/25/24 08/25/24 Margaret Ro Community Health Worker 07/27/24 4 WaMarianne glez Clinical Cryogenic Transport Driver 07/14/25 07/28/25 Ariana Bagley Community Health Worker 07/14/25 07/14/25 So Caiceod LPN VALUE[employer] [address] None TCM Nurse 09/07/25 10/07/25 Keyonna Goff Community Health Worker 11/01/25 documented as of this encounter
--- OUTSIDE RECORDS SUMMARY | 2025-11-20 14:09 | XMS_ITS | Encounter Summary ---
Author Organization Healthcare Address [facility] [place] [address] Care Team Providers Care Milk Driver Name Role Phone Rodolfo Rhoades MD Primary Care Provider Keyonna Goff Unavailable Unavailable Encounter Details Date Type Department Care Team (Late st Contact Info) Description 11/07/2025 Orders Only [facility] Medicine [address] [place] [address] Rodolfo Rhoades MD [address] [place] [address] Elevated CK (Primary Dx) Social History Tobacco Use Types [...] assisted (including now)? No 08/09/2025 [facility] Utilities Answer Date Recorded In the past 12 months has th e [employer], gas, oil, or water [employer] threatened to shut off services in your [...] Description 12/08/2025 11:20 AM EST Office Visit [facility] [place] [address] [address] [address] [place] [address] documented as of this encounter Visit Diagnoses Diagnosis Elevated CK- Primary Other nonspecific abnormal serum enzyme levels documented in this encounter Additional Health Concerns Assessment Noted Time PHQ-9 Depression Total Score: 11 9:50 AM EST A fall risk assessment has been complete d for the patient 10/02/2025 9:55 AM EST A Body Mass Index follow-up plan has been documented for the patient 11/01/2025 2:39 PM EST documented as of this encounter Care Teams Milk Driver Relationship Specialty Start Date End Date [place] [address] PCP - General Family Medicine 02/02/25 Keyonna Goff Community Health Worker 11/01/25 documented as of this encounter
--- OUTSIDE RECORDS SUMMARY | 2025-11-20 14:09 | XMS_ITS | Encounter Summary ---
Author Organization Healthcare Address [address] [id number] Care Team Providers Care Mill Roll Rewinder Name Role Phone Rodolfo Rhoades MD Primary Care Provider [phone] So Caicedo LPN Unavailable Unavailable Reason for Visit * Reason Comments Med Refill Encounter Details Date Type Department Care Team (Late st Contact Info) Description 10/05/2025 Refill [facility] Medicine [address], [address] [place] [address] Tammy Caban MD [address] [place] [address] Social History Tobacco Use Types Packs/Day Years [...] in a fdc (including now)? No 08/09/2025 [facility] [...] Description 12/08/2025 11:20 AM EST Office Visit [facility] [address] [place] [address] Rodolfo Rhoades MD [address] [place] [address] documented as of this encounter [...] documented as of this encounter Care Teams Mill Roll Rewinder Relationship Specialty Start Date End Date Rodolfo Rhoades MD [address] [place] [address] PCP - General Family Medicine 02/02/25 So Caicedo LPN VALUE-BASED [place] [address] None TCM Nurse 09/07/25 10/07/25 documented as of this encounter
--- OUTSIDE RECORDS SUMMARY | 2025-11-20 14:09 | XMS_ITS | Encounter Summary ---
Author Organization Healthcare Address [address] [id number] Care Team Providers Care French Weaver Name Role Phone Georgette Moore APRN Primary Care Provider [phone] Veronica Goodwin LPN Unavailable Unavailable Margaret Ro Unavailable Unavailable Rodolfo Rhoades MD Primary Care Provider [phone] Marianne Bolaños Unavailable Unavailable Ariana Bagley Unavailable Unavailable So Caicedo FILER METAL PATTERNS Unavailable Unavailable Keyonna Goff Unavailable Unavailable Encounter Details Date Type Department Care Team (Late st Contact Info) Description 07/22/2024 Outside Procedure External Location [address] [place] [phone] Provider, Swapnil [place] Social History Tobacco Use [...] In the past 12 months has e [employer], gas, oil, or water [employer] threatened to shut off services in your [...] Score 0 07/25/2024 3:43 PM EDT Shikha [place] documented as of this encounter Plan of Treatment Upcoming Encounters Date Type Department Care Team (Late st Contact Info) Description 12/08/2025 11:20 AM EST Office Visit [facility] [address] [place] [address] Rodolfo Rhoades MD [address] [place] [address] documented as of this encounter Procedures Procedure Name Priority Date/Time Associated Diagnosis Comments ECHO, ADULT TRANSTHORACIC COMPLETE W/ COLOR AND DOPPLER 07/22/2024 6:31 AM EDT documented in this encounter Results * Echo, Adult Transthoracic Complete w/ Color and Doppler (07/22/2024 6:31 AM EDT) Anatomical Region Laterality Modality Ultrasound 07/22/2024 6:31 AM EDT Narrative 07/22/2024 12:07 PM EDT [address] [address] Name: VERONICA ALVAREZ Exam Date: 07/22/2024 : 1975 Age 48 years Gender: F Physician: VICTORIANO REYES Facility: [facility] Facility HSV: Inpatient Exam: ECHO [...] stenosis with a valve area of 0.85 block sorter (Peak grad=45mmHg, Mean grad=24mmHg, LVOT grady=2.10cm, LVOT TVI=19.3cm, Ao TVI=79.0cm). The dimensionless index is 0.24. AV peak jhwonand=794lq/sec. There is a Mechanical AV prosthesis. (Peak [...] referring VERONICA ALVAREZ to [facility]. Legally authenticated by CINDY JORDAN 2024-07-22 12:04:58 Procedure Note Provider, [facility] - 07/22/2024 [place] [address] Name: VERONICA ALVAREZ Exam Date: 07/22/2024 : 1975 Age 48 years Gender: F Physician: VICTORIANO REYES Facility: [facility] Facility HSV: Inpatient Exam: ECHO [...] stenosis with a valve area of 0.85 block sorter (Peak grad=45mmHg, Mean grad=24mmHg, LVOT grady=2.10cm, LVOT TVI=19.3cm, Ao TVI=79.0cm). The dimensionless index is 0.24. AV peak currltna=616hb/sec. There is a Mechanical AV prosthesis. (Peak [...] referring VERONICA ALVAREZ to [facility]. Legally authenticated by CINDY JORDAN 2024-07-22 12:04:58 Generic [place] Provider CV ECHO PROCEDURES F inal Result [...] as of this encounter Care Teams French Weaver Relationship Specialty Start Date End Date Georgette Moore APRN [address] [place] [address] PCP - General 04/12/21 02/01/25 Rodolfo Rhoades MD [address] [place] [address] PCP - General Family Medicine 02/02/25 Veronica Goodwin, ANTOINE [employer] [address] None TCM Nurse 07/25/24 08/25/24 Margraet Ro Community Health Worker 07/27/24 4 Wages, Marianne Clinical Materials Intern 07/14/25 07/28/25 Ariana Bagley Community Health Worker 07/14/25 07/14/25 So Caicedo, ANTOINE VAL[employer] [address] None TCM Nurse 09/07/25 10/07/25 Keyonna Goff Community Health Worker 11/01/25 documented as of this encounter
--- OUTSIDE RECORDS SUMMARY | 2025-11-20 14:09 | XMS_ITS | Encounter Summary ---
Author Organization [facility] [place] [facility] [address] Care Team Providers Care Director Metabolism Name Role Phone Rodolfo Rhoades MD Primary Care Provider [phone] Keyonna Goff Unavailable Unavailable Reason for Visit * Reason Onset Date Comments HCN - Patient Message 10/19/2025 Encounter Details Date Type Department Care Team (Late st Contact Info) Description 10/19/2025 Telephone [facility] [address] [place] [address] Rodolfo Rhoades MD [address] [place] [address] HCN - Patient Message Social [...] in a mcfp (including now)? No 08/09/2025 [facility] [...] Indicated 11/01/2025 11:08 AM Kayla Jones * Question Answer Date of Assessment Author 1. Wish to be (Past 1 Month) No 025 11:08 AM Kayla Jones 2. Non-Specific Active Suici omar Thoughts (Past 1 Month) No 11/01/2025 11:08 AM Kayla Jones 6. Suicidal Behavior (Lifetime) No 11:08 AM Kayla Jones documented as of this encounter Miscellaneous Notes * Telephone Encounter - Mindy Gudino - 10/19/2025 3:11 PM EST Called pt and she stated she has a blister that popped up on her right leg. I spoke to Dr. Rhoades andhe stated since this is new she will have to have an appt for evaluation. Pt requested Dr. Rhoades only but once she was informed of availability she said she would be ok to see Georgette. Once she was informed of availability she wanted to wait until next week, but I informed her we have sooner availability with other providers or she could try [facility]. Pt wanted appt with Georgette, appt scheduled. Pt voiced understanding. * Telephone Encounter - Anamika Levin - 10/19/2025 1:50 PM EST Clinical Concern/Question Reason for Call: she is asking for a nurse to call to discuss a blister that has developed on rightleg. She is asking for a call back to advise. Please call Best contact number: [phone] Optimal time of day to reach caller: [...] Description 12/08/2025 11:20 AM EST Office Visit [facility] [place] [address] [place] [address] Rdoolfo [place]oades [place] [address] documented as of this encounter [...] as of this encounter Care Teams Director Metabolism Relationship Specialty Start Date End Date Rodolfo Rhoades MD [address] [place] [address] PCP - General Family Medicine 02/02/25 Keyonna Goff Community Health Worker 11/01/25 documented as of this encounter
--- OUTSIDE RECORDS SUMMARY | 2025-11-20 14:09 | XMS_ITS | Encounter Summary ---
Author Organization Healthcare Address [address] [place] [address] Care Team Providers Care Filenet Architect Name Role Phone Rodolfo Rhoades MD Primary Care Provider [phone] Keyonna Goff Unavailable Unavailable Encounter Details Date Type Department Care Team (Latest Contact Info) Description 11/01/2025 Travel Social History Tobacco Use Types Packs/Day [...] in a fpc (including now)? No 08/09/2025 [facility] Utilities Answer Date Recorded In the [...] Description 12/08/2025 11:20 AM EST Office Visit [facility] [address] [place] [address] Rodolfo Rhoades MD [address] [place] [address] documented as of this encounter [...] documented as of this encounter Care Teams Filenet Architect Relationship Specialty Start Date End Date Rodolfo Rhoades MD [address] [place] [address] PCP - General Family Medicine 02/02/25 Keyonna Goff Community Health Worker 11/01/25 documented as of this encounter
--- OUTSIDE RECORDS SUMMARY | 2025-11-20 14:09 | XMS_ITS | Encounter Summary ---
Author Organization Healthcare Address [facility] [place] [address] Care Team Providers Care Art Museum Aide Name Role Phone Rodolfo Rhoades MD Primary Care Provider [phone] Keyonna Goff Unavailable Unavailable Encounter Details Date Type Department Care Team (Late st Contact Info) Description 10/08/2025 Results Follow-Up [facility] [address] [place] [address] Rodolfo Rhoades MD [address] [place] [address] Social History Tobacco Use Types [...] in a half-way (including now)? No 08/09/2025 [facility] Utilities Answer Date Recorded In [...] Description 12/08/2025 11:20 AM EST Office Visit [facility] [address] [place] [address] Rodolfo Rhoades MD [address] [place] [address] documented as of this [...] documented as of this encounter Care Teams Art Museum Aide Relationship Specialty Start Date End Date Rodolfo Rhoades MD [address] [place] [address] PCP - General Family Medicine 02/02/25 Keyonna Goff Community Health Worker 11/01/25 documented as of this encounter
--- OUTSIDE RECORDS SUMMARY | 2025-11-20 14:09 | XMS_ITS | Encounter Summary ---
Author Organization [facility] Address [address] [id number] Care Team Providers Care Electric Lineman Name Role Phone OscarPrimitivoadolfo Yun APRN Primary Care Provider [phone] Veronica Goodwin PARAMEDIC SUPERVISOR Unavailable Unavailable Margaret Ro Unavailable Unavailable Rodolfo Rhoades MD Primary Care Provider [phone] Marianne Bolaños Unavailable Unavailable Ariana Bagley Unavailable Unavailable So Caicedo PARAMEDIC SUPERVISOR Unavailable Unavailable Keyonna Goff Unavailable Unavailable Encounter Details Date Type Department Care Team (Late st Contact Info) Description 07/22/2021 Outside Procedure External Location [address] [place] [address] Irma Masterson MD [address] [place] [id number] Social History Tobacco Use Types Packs/Day [...] Description 12/08/2025 11:20 AM EST Office Visit [facility] [address] [place] [address] Rodolfo Rhoades MD [address] [place] [address] documented as of this encounter Procedures Procedure Name Priority Date/Time Associated Diagnosis Comments CT CHEST LIMITED HISTORICAL 07/22/2021 1:04 PM EDT documented in this encounter Results * CT Chest Limited Historical (07/22/2021 1:04 PM EDT) Anatomical Region Laterality Modality Chest Computed Tomogra phy 07/22/2021 1:04 PM EDT Narrative 07/22/2021 3:35 PM EDT [address] [address] Name: VERONICA ALVAREZ Exam Date: 07/22/2021 : [...] to [facility]. Legally authenticated by POPE FUNMILAYO Almonte 2021-07-22 15:24:50 Procedure Note Provider, Generic [place] - 07/22/2021 [place] [address] Name: VERONICA ALVAREZ Exam Date: 07/22/2021 : [...] to [facility]. Legally authenticated by POPE FUNMILAYO Almonte [...] documented as of this encounter Care Teams Electric Lineman Relationship Specialty Start Date End Date Georgette Moore APRN [address] [place] [address] PCP - General 04/12/21 02/01/25 Rodolfo Rhoades MD [address] [place] [address] PCP - General Family Medicine 02/02/25 Veronica Goodwin LPN [employer] [place] [address] None TCM Nurse 07/25/24 08/25/24 Margaret Ro Community Health Worker 07/27/24 4 Wages, Marianne Clinical Correctional Supervising Cook 07/14/25 07/28/25 Ariana Bagley Community Health Worker 07/14/25 07/14/25 So Caicedo LPN [employer] [address] None TCM Nurse 09/07/25 10/07/25 Keyonna Goff Community Health Worker 11/01/25 documented as of this encounter
--- OUTSIDE RECORDS SUMMARY | 2025-11-20 14:09 | XMS_ITS | Encounter Summary ---
Author Organization Healthcare Address [facility] [place] [address] Care Team Providers Care Machine Candle Molder Name Role Phone Rodolfo Rhoades MD Primary Care Provider [phone] Keyonna Goff Unavailable Unavailable Encounter Details Date Type Department Care Team (Late st Contact Info) Description 11/02/2025 Results Follow-Up [facility] [address] [place] [address] Rodolfo Rhoades MD [address] [place] [address] Social History Tobacco Use Types [...] any time in the past 12 m [facility], were you homeless or living in a long-term (including now)? No 08/09/2025 [facility] Utilities Answer Date Recorded In the past 12 months has th e Soko, gas, oil, or water [employer] threatened to shut off services in your [...] Telephone Encounter - Rodolfo Rhoades MD - 11/07/2025 8:10 AM EST Signed a script to fax to [place] for labs to be drawn. I also added an order to have CK checked here if there's difficulty getting the labs done in [place]. * Telephone Encounter - Angelica Apodaca - 11/03/2025 11:34 AM EST Status Update Call #1 1st call regarding the status of the initial request. Best contact number: [phone] (mobile) Optimal time of day to reach caller: ANYTIME Additional comments/information from caller: Pt calling, to see if she can get an appt with rheumatology in [place]. Pt states she is going to [facility] to check her levels due to [place] way. Please advise. Note: Please do not reply to this message. Follow-up communication and further actions as a result of this message need to be communicated with the patient directly, if the patient is not active onMyChart. If the patient is active on MyChart, they will receive notification of the communication/outcome via MEDEM. * Telephone Encounter - Melodie Jay RN - 11/03/2025 10:49 AM EST Pt returned call today asking if she could go to [facility]. RN reviewed Dr. Rhoades's note w/ pt that specifically mentioned send to ER for quick rheumatology work up w/ possible muscle biopsy. Advised pt [facility] may not have capability to work up as requested. Pt concerned about wait and lengthy stay at ER. RN advised she could try [facility] ER as they are a hospital as well. documented in this encounter Plan of Treatment Upcoming Encounters Date Type Department Care Team (Late st Contact Info) Description 12/08/2025 11:20 AM EST Office Visit [facility] [address] [place] [address] Rodolfo Rhoades MD [address] [place] [place] [address] documented as of this encounter Visit [...] as of this encounter Care Teams Machine Candle Molder Relationship Specialty Start Date End Date Rodolfo Rhoades MD [address] [place] [address] PCP - General Family Medicine 02/02/25 Keyonna Goff Community Health Worker 11/01/25 documented as of this encounter
--- OUTSIDE RECORDS SUMMARY | 2025-11-20 14:10 | XMS_ITS ---
Author Organization [facility] Address [address] [place] [address] Care Team Providers Care Java Web Developer Name Role Phone Rodolfo Rhoades MD Primary Care Provider [phone] Keyonna Goff Unavailable Unavailable Transitional Care Management Status:Closed (Closed) Program category:Transitional Care Management - [facility] Start date:09/07/2025 Enrollment date:09/08/2025 Enrollment reason:Identified using hospital discharge data End date:10/07/2025 Close reason:Patient graduated Overview This episode type is for outpatient care managers enrolling patients in the [facility] Transitional Care Management program. Continued Care and Services Coordination
--- OUTSIDE RECORDS SUMMARY | 2025-11-20 14:10 | XMS_ITS | Clinical Summary ---
Author Organization [facility] Address [address] [place] [address] Care Team Providers Care Spray Machine Loader Name Role Phone Rodolfo Rhoades MD Primary Care Provider [phone] Allergies Active Allergy Reactions Criticality Noted Date [...] lateral wall. Normal LVEF. Cardiac cath at [facility] (04/2020): Normal coronary arteries. 2+ [...] Immunizations Immunization Administration Dates Next Due COVID-19 ([employer]) Purple Cap Monovalent 04/05/20 21,03/08/2021 Fluzone >6mos 12/17/2016 Family History Medical History Relation Name Comments Liver disease Father Relation Name Status Comments Father Mother Alive Other Alive Sister Alive Social History Tobacco Use Types Packs/Day Years Used Date Smoking Tobacco: Every Day Cigarettes 0.5 25 Started: 2000 Smokeless Tobacco: Never Tobacco Cessation:Ready to Q uit: Not Asked; Counseling Given: Not Answered Comments:smokes approx one pack per day Alcohol Use Standard Drinks/Week Comments Never 0 (1 standard drink = 0.6 oz pur e alcohol) AUDIT-C Answer Date Recorded Q1: How often do you have a drink containing alc ohol? 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 Not on file Not [...] SCREENING 02/24/2035 Medical Devices Implanted Type Area Handbag Operator Device Identifier Shelf Expiration Date Model / Serial / Lot Vlv Aort [facility] 19mm - [id number] - [id number] Implanted:Qty : 1 on 06/11/2021 by Taz Cespedes MD at [facility] Implant N/A: Heart [employer] [id number] 01/01/2025 [id number] / [id number] / Appl Clip Evelyn Atriclip Flx 35mm - [id number] Implanted:Qty : 1 on 06/11/2021 by Taz Cespedes MD at [facility] Implant N/A: Heart [employer] 02/29/2024 [id number] / [id number] Procedures Procedure Name Priority Date/Time Associated Diagnosis Comments LIPID PANEL STAT 04/19/2021 9:30 AM EDT from Last 3 Months or Most Recently Relevant to Health Maintenance Results * Lipid Panel (04/19/2021 9:30 AM EDT) Total Cholesterol 146 0 - 200 mg/dL 04/19/2021 10:14 AM EDT [facility] Triglycerides 67 0 - 150 mg/dL 04/19/2021 10:14 AM EDT [facility] HDL Cholesterol 58 40 - 60 mg/dL 04/19/2021 10:14 AM EDT [facility] LDL Cholesterol 75 0 - 100 mg/dL 04/19/2021 10:14 AM EDT [facility] VLDL Cholesterol 13 5 - 40 mg/dL 04/19/2021 10:14 AM EDT [facility] LDL/HDL Ratio 1.29 04/19/2021 10:14 AM EDT [facility] Blood Line / Unknown 04/19/2021 9: 30 AM EDT 04/19/2021 9:40 AM EDT [facility] - 04/19/2021 10:14 AM EDT [...] Saavedra APRN LAB BLOOD ORDERABLES Final Result [facility]
[address] [place] [address], from Last 3 Months or Most Recently Relevant to Health Maintenance Insurance [employer] [facility] Advance Directives * CPR (Attempt to Resuscitate) (Latest Code Status on File) Date Activated Date Inactivated Comments 06/11/2021 10:54 AM 06/18/2021 6:29 PM Question Answer Comments Code Status (Patient has no pulse and is not breathing): CPR (Attempt to Resuscitate) Medical Interventions (Patie nt has pulse or is breathing): Full Care Teams Spray Machine Loader Relationship Specialty Start Date End Date Rodolfo Rhoades MD [address] [place] [address] PCP - General Family Medicine 04/05/25
[2025-11-20 15:29] LABS: Creatine Kinase 654 U/L (30-135)
== END 2025-11-20 23:59 | disposition home or self-care (01) ==
LOC: LAB 13:50
PROVIDERS: PCP Nurse Practitioner Family; Visit Provider Family Medicine
DX: R74.8 Abnormal levels of other serum enzymes (principal)
CPT/HCPCS: 36415; 82550

== ENCOUNTER 2025-11-24 16:09 | Emergency (ER) | payer OTHER, SELFPAY ==
--- OUTSIDE RECORDS SUMMARY | 2025-10-02 09:40 | XMS_ITS | Encounter Summary ---
Author Organization Healthcare Address [facility] [place] [address] Care Team Providers Care Resistance Machine Welder Setter Name Role Phone Rodolfo Rhoades MD Primary Care Provider [phone] So Caicedo LPN Unavailable Unavailable Reason for Visit * Reason Comments Hospital Follow Up Has an appointment w Jf navarro Dr on 10/12/2025 . Does need a refill on Gabapentin until appointment will Dr. Rhoades on 10/12/2025 Encounter Details Date Type Department Care Team (Latest Contact Info) Description 10/02/2025 9:40 AM EST Office Visit [facility] [address] [place] [address] Georgette Moore, DERRELL [address] [place] [address] Non-traumatic rhabdomyolysis (Primary Dx) Social [...] any time in the past 12 m [facility], were you homeless or living in a fdc (including now)? No 08/09/2025 [facility] Utilities Answer Date Recorded In the [...] much Nearly every day 10/02/2025 9:50 AM Jyade Dyer Feeling tired or having yesika le [...] [place], Jayde * Temp (in Celsius) for CHICKALOON IV Answer Date of Assessment Author 39 [...] 11 10/02/2025 9:50 AM Jayde Dyer * [facility] Mental Health Concern Calculation Answer Entry Date [...] Conte Jayde * Temp (in Celsius) for CHICKALOON IV Answer Entry Date Author 39 10/02/2025 [...] Description 12/08/2025 11:20 AM EST Office Visit [facility] [address] [place] [address] Rodolfo Rhoades MD [address] [place] [address] documented as of this encounter [...] documented as of this encounter Care Teams Resistance Machine Welder Setter Relationship Specialty Start Date End Date Rodolfo Rhoades MD [address] [place] [address] PCP - General Family Medicine 02/02/25 So Caicedo LPN [employer] [place] [address] None TCM Nurse 09/07/25 10/07/25 documented as of this encounter
--- OUTSIDE RECORDS SUMMARY | 2025-10-05 11:00 | XMS_ITS | Encounter Summary ---
Author Organization Healthcare Address [address] [place] [address] Care Team Providers Care Area Manager Name Role Phone Rodolfo Rhoades MD Primary Care Provider [phone] So Caicedo LPN Unavailable Unavailable Reason for Referral * Consultation (Routine) - Authorized Specialty Diagnoses / Procedures Referred By Contac t Referred To Contact Physical Therapy Diagnoses Non-traumatic rhabdomyolysis Elevated CK Generalized weakness [place] [address] Phone: tel: fax: Referral ID Status Reason Start Date Expiration Date Visits Requested Visits Authorized [id number] Authorized Consult and Treat 10/06/2025 04/07/2027 1 1 Scheduling Instructions [facility] [place] Reason for Visit * Reason Comments Follow-up Left leg bothersome more so than right, needs to get into PT and neurology Care Gap Closure Wants Flu and Pneumo sandra vaccines if possible; postpone Covid vaccine Encounter Details Date Type Department Care Team (Latest Contact Info) Description 10/05/2025 11:00 AM EST Office Visit [facility] [place] [address] [place] [address] Non-traumatic rhabdomyolysis (Primary Dx); Essential [...] in a residential (including now)? No 08/09/2025 [facility] Utilities Answer Date Recorded In the past 12 months has [employer] electric, gas, oil, or water company threatened [...] 54.7 10/05/2025 11:11 AM EST Javon-Bok ros, Imndy * Calculated C-SSRS Risk Score (Lifetime/Recent) Answer [...] Rama Craneica * Temp (in Celsius) for KLUTI KAAH IV Answer Date of Assessment Author 36.4 [...] Date Author 59.2 10/05/2025 11:11 AM EST Javon-Bok [...] ros, Mindy * Temp (in Celsius) for KLUTI KAAH IV Answer Entry Date Author 36.4 10/05/2025 [...] Description 12/08/2025 11:20 AM EST Office Visit [facility] [address] [place] [address] Rodolfo Rhoades MD [address] [place] [address] Scheduled Referrals Name Type Priority Associated [...] - 99 mg/dL 10/05/2025 7:43 PM EST [facility] BUN, Plasma 9 7 - 21 mg/dL 10/05/2025 7:43 PM EST [facility] Creatinine, Plasma 0.58(L) 0.60 - 1.10 mg/dL 10/05/2025 7:43 PM EST [facility] BUN/Creatinine Ratio 16 10/05/2025 7:43 PM EST [facility] Sodium, Plasma 138 136 - 145 mmol/L 10/05/2025 7:43 PM EST [facility] Potassium, Plasma 4.3 3.6 - 4.9 mmol/L 10/05/2025 7:43 PM EST [facility] Chloride, Plasma 99 97 - 107 mmol/L 10/05/2025 7:43 PM EST [facility] CO2, Plasma 29 22 - 29 mmol/L 10/05/2025 7:43 PM EST [facility] Anion Gap 10 6 - 16 mmol/L 10/05/2025 7:43 PM EST [facility] Total Calcium, Plasma 9.7 8.9 - 10.2 mg/dL 10/05/2025 7:43 PM EST [facility] Total Protein 7.4 6.3 - 7.9 g/dL 10/05/2025 7:43 PM EST [facility] Albumin, Plasma 3.6 3.5 - 5.2 g/dL 10/05/2025 7:43 PM EST [facility] AST, Plasma 38(H) 10 - 35 U/L 10/05/2025 7:43 PM EST [facility] ALT, Plasma 19 10 - 35 U/L 10/05/2025 7:43 PM EST [facility] Alkaline Phosphatase, Plasma 130(H) 35 - 104 U/L 10/05/2025 7:43 PM EST [facility] Total Bilirubin, Plasma 0.3 0.2 - 1.1 mg/dL 10/05/2025 7:43 PM EST [facility] eGFRcr 111.8 mL/min/1.7 3m*2 10/05/2025 7:43 PM EST [facility] Comment:Reported eGFRcr in m L/min/1.73m2 is based the CKD-EPI 2020 equation that does not use a race coefficient. Blood Venous blood specimen / Unknown Venipuncture / Unknown 10/05/2025 12:07 PM EST 10/05/2025 12:08 PM EST us Rodolfo Rhoades MD LAB BLOOD ORDERABLES Final Res ult [facility] [address] [place] [address] * Creatine Kinase (CK), Total (10/05/2025 12:07 PM EST) Creatine Kinase, Plasma 85 37 - 168 U/L 10/05/2025 7:43 PM EST [facility] Blood Venous blood specimen / Unknown Venipuncture / Unknown 10/05/2025 12:07 PM EST 10/05/2025 12:08 PM EST us Rodolfo Rhoades MD LAB BLOOD ORDERABLES Final Res ult [facility] [address] [place] [address] documented in this encounter Visit Diagnoses Diagnosis [...] documented as of this encounter Care Teams Area Manager Relationship Specialty Start Date End Date Rodolfo Rhoades MD [address] [place] [address] PCP - General Family Medicine 02/02/25 So Caicedo LPN [employer] [place] [address] None TCM Nurse 09/07/25 10/07/25 documented as of this encounter
--- OUTSIDE RECORDS SUMMARY | 2025-11-01 10:40 | XMS_ITS | Encounter Summary ---
Author Organization [facility] Address [facility] [place] [place] [address] Care Team Providers Care Facing Cutting Machine Operator Name Role Phone Rodolfo Rhoades MD Primary Care Provider [phone] Keyonna Goff Unavailable Unavailable Reason for Referral * Referral to Case Management (Routine) - Authorized Specialty Diagnoses / Procedures Referred By Contac t Referred To Contact Case Management / Primary Care Diagnoses Transportation insecurity Rodolfo Rhoades MD [address] [place] [phone] Phone: tel: fax: Referral ID Status Reason Start Date Expiration Date Visits Requested Visits Authorized [id number] Authorized Other Co-Managemen t of Problem 11/01/2025 05/03/2027 1 1 * Consultation (Routine) - Authorized Specialty Diagnoses / Procedures Referred By Contac t Referred To Contact Cardiology Diagnoses Chronic atrial fibrillation (CMS/HCC) Rodolfo Rhoades MD [facility] [place] [address] Phone: tel: fax: Referral ID Status Reason Start Date Expiration Date Visits Requested Visits Authorized [id number] Authorized Specialty Services Required 11/01/2025 05/03/2027 1 1 * Imaging (Routine) - Authorized Specialty Diagnoses / Procedures Referred By Contac t Referred To Contact Diagnoses Chronic nonintractable headache, unspecified headache type Procedures MR Head wo IV Contrast Rodolfo Rhoades MD [address] [place] [address] Phone: tel: fax: Referral ID Status Reason Start Date Expiration Date V isits Requested Visits Authorized [id number] Authorized 11/01/2025 05/03/2027 1 1 Reason for Visit * Reason Comments Weakness - Generalized 3 wk follow up - body hurts, always in pain. Also has sore throat, headaches are coming back worse. Nothing helps the pain. Encounter Details Date Type Department Care Team (Latest Contact Info) Description 11/01/2025 10:40 AM EST Office Visit [facility] [address] [place] [address] Rodolfo Rhoades MD [address] [place] [address] Sore throat (Primary Dx); Moderate [...] in a detention (including now)? No 08/09/2025 [facility] * BP Answer Date of Assessment Author 92/64 11/01/2025 11:05 AM EST Kayla Ayon * Temp Answer Date of Assessment Author 98.1 11/01/2025 11:05 AM EST Kayla Ayon * Temp src Answer Date of Assessment Author Oral 11/01/2025 11:05 AM EST Kayla Ayon * Pulse Answer Date of Assessment Author 83 11/01/2025 11:05 AM EST Kayla Ayon * Resp Answer Date of Assessment Author 18 11/01/2025 11:05 AM EST Kayla Ayon * SpO2 Answer Date of Assessment Author 97 11/01/2025 11:05 AM EST Kayla Ayon * Height Answer Date of Assessment Author 64 11/01/2025 11:05 AM Kayla Jones * BMI (Calculated) Answer Date of Assessment Author 0 11/01/2025 11:05 AM EST Kayla Ayon * Initial Excess Weight Answer Date of Assessment Author -54.43 11/01/2025 11:05 AM EST Kayla Ayon * IBW in lbs (Bariatric) Answer Date of Assessment Author 120 11/01/2025 11:05 AM EST Gabo Kayla * IBW in kg (Bariatric) Answer Date of Assessment Author 54.43 11/01/2025 11:05 AM EST Gabo Kayla * BMI (Calculated) Answer Date of Assessment Author 0 11/01/2025 11:05 AM EST Ayon, Kayla * IBW/kg (Calculated) Male Answer Date of Assessment Author 59.2 11/01/2025 11:05 AM EST Ayon, Kayla * IBW/kg (Calculated) Female Answer Date of Assessment Author 54.7 11/01/2025 11:05 AM EST Gabo Kayla * Restart Vitals Timer Answer Date of Assessment Author Yes 11/01/2025 11:05 AM EST Gabo Kayla * IBW/kg (Calculated) Answer Date of Assessment Author 54.7 11/01/2025 11:05 AM EST Gabo Kayla * Calculated C-SSRS Risk Score (Lifetime/Recent) Answer Date of Assessment Author No Risk Indicated 11/01/2025 11:08 AM EST Gabo Kayla * Weight in (lb) to have BMI = 25 Answer Date of Assessment Author 145.3 11/01/2025 11:05 AM EST Gabo Kayla * BMI (Calculated) Answer Date of Assessment Author 0 11/01/2025 11:05 AM EST Gabo Kayla * Initial Excess Weight Answer Date of Assessment Author -54.43 11/01/2025 11:05 AM EST Gabo Kayla * IBW in kg (Bariatric) Answer Date of Assessment Author 54.43 11/01/2025 11:05 AM EST Ayon, Kayla * IBW in lb (Bariatric) Answer Date of Assessment Author 120 11/01/2025 11:05 AM EST Gabo Kayla * Temp (in Celsius) for [place] CHIN IV Answer Date of Assessment Author 36.7 11/01/2025 11:05 AM EST Ayon, Kayla * IBW/kg (Calculated) Answer Date of Assessment Author 54.7 11/01/2025 11:05 AM EST Gabo Kayla * Adult Low Range Vt 6mL/kg Answer Date of Assessment Author 328.2 11/01/2025 11:05 AM EST Kayla Ayon * Adult Moderate Range Vt 8mL/kg Answer Date of Assessment Author 437.6 11/01/2025 11:05 AM EST Kayla Ayon * Adult High Range Vt 10mL/kg Answer Date of Assessment Author 547 11/01/2025 11:05 AM EST Keyon Ayona * Pain Score Answer Date of Assessment Author 5 11/01/2025 11:06 AM Keyon Jonesa * Vitals Timer Question Answer Date of Assessment Author Restart Vitals Timer Yes 11/01/2025 11:05 AM EST Kayla Ayon * Pain Screening/Additional Assessments Question Answer Date of Assessment Author Pain Screening/Assessments Pain Screening 11/01/2025 1 1:06 AM Kayla Jones * Pain Screening Answer Date of Assessment Author 0-10 11/01/2025 11:06 AM Kayla Jones * C-SSRS (Screener) Question Answer Date of Assessment Author Is patient awake, alert, and able/willing to answer questions appropriately? Yes 11/01/2025 11:08 AM Kayla Jones 1. Wish to be (Past 1 Month) No 025 11:08 AM Kayla Jones 2. Non-Specific Active Suici omar Thoughts (Past 1 Month) No 11/01/2025 11:08 AM Kayla Jones 6. Suicidal Behavior (Lifetime) No 11:08 AM Kayla Jones * BP Answer Date of Assessment Author 92/64 11/01/2025 11:05 AM Keyon Jonesa * Temp Answer Date of Assessment Author 98.1 11/01/2025 11:05 AM EST Keyon Ayona * Temp src Answer Date of Assessment Author Oral 11/01/2025 11:05 AM Kayla Jones * Pulse Answer Date of Assessment Author 83 11/01/2025 11:05 AM Keyon Jonesa * Resp Answer Date of Assessment Author 18 11/01/2025 11:05 AM Kayla Jones * SpO2 Answer Date of Assessment Author 97 11/01/2025 11:05 AM EST Kayla Ayon * Height Answer Date of Assessment Author 64 11/01/2025 11:05 AM EST Kayla Ayon * BMI (Calculated) Answer Date of Assessment Author 0 11/01/2025 11:05 AM Kayla Jones * Restart Vitals Timer Answer Date of Assessment Author Yes 11/01/2025 11:05 AM Keyon Jonesa * Calculated C-SSRS Risk Score (Lifetime/Recent) Answer Date of Assessment Author No Risk Indicated 11/01/2025 11:08 AM EST Kayla Ayon * Weight in (lb) to have BMI = 25 Answer Date of Assessment Author 145.3 11/01/2025 11:05 AM EST Kayla Ayon * Pain Score Answer Date of Assessment Author 5 11/01/2025 11:06 AM Kayla Jones * C-SSRS (Screener) Question Answer Date of Assessment Author Is patient awake, alert, and able/willing to answer questions appropriately? Yes 11/01/2025 11:08 AM Kayla Jones 1. Wish to be (Past 1 Month) No 025 11:08 AM Kayla Jones 2. Non-Specific Active Suici omar Thoughts (Past 1 Month) No 11/01/2025 11:08 AM Kayla Jones 6. Suicidal Behavior (Lifetime) No 11:08 AM Kayla Jones documented as of this encounter Mental Status * BP Answer Entry Date Author 92/64 11/01/2025 11:05 AM Kayla Jones * Temp Answer Entry Date Author 98.1 11/01/2025 11:05 AM Kayla Jones * Temp src Answer Entry Date Author Oral 11/01/2025 11:05 AM EST Kayla Ayon * Pulse Answer Entry Date Author 83 11/01/2025 11:05 AM Kayla Jones * Resp Answer Entry Date Author 18 11/01/2025 11:05 AM EST Kayla Ayon * SpO2 Answer Entry Date Author 97 11/01/2025 11:05 AM Kayla Jones * Height Answer Entry Date Author 64 11/01/2025 11:05 AM EST Ayon, Kayla * BMI (Calculated) Answer Entry Date Author 0 11/01/2025 11:05 AM EST Gabo Kayla * Initial Excess Weight Answer Entry Date Author -54.43 11/01/2025 11:05 AM EST Gabo Kayla * IBW in lbs (Bariatric) Answer Entry Date Author 120 11/01/2025 11:05 AM EST Gabo Kayla * IBW in kg (Bariatric) Answer Entry Date Author 54.43 11/01/2025 11:05 AM EST Gabo Kayla * BMI (Calculated) Answer Entry Date Author 0 11/01/2025 11:05 AM EST Gabo Kayla * IBW/kg (Calculated) Male Answer Entry Date Author 59.2 11/01/2025 11:05 AM EST Gabo Kayla * IBW/kg (Calculated) Female Answer Entry Date Author 54.7 11/01/2025 11:05 AM EST Gabo Kayla * Restart Vitals Timer Answer Entry Date Author Yes 11/01/2025 11:05 AM EST Gabo Kayla * IBW/kg (Calculated) Answer Entry Date Author 54.7 11/01/2025 11:05 AM EST Gabo Kayla * Calculated C-SSRS Risk Score (Lifetime/Recent) Answer Entry Date Author No Risk Indicated 11/01/2025 11:08 AM EST Gabo Kayla * Restart Pain Assessment Timer Answer Entry Date Author Yes 11/01/2025 11:06 AM EST Keyon Ayona * Weight in (lb) to have BMI = 25 Answer Entry Date Author 145.3 11/01/2025 11:05 AM EST Gabo Kayla * BMI (Calculated) Answer Entry Date Author 0 11/01/2025 11:05 AM EST Gabo Kayla * Initial Excess Weight Answer Entry Date Author -54.43 11/01/2025 11:05 AM EST Gabo Kayla * IBW in kg (Bariatric) Answer Entry Date Author 54.43 11/01/2025 11:05 AM EST Gabo Kayla * IBW in lb (Bariatric) Answer Entry Date Author 120 11/01/2025 11:05 AM EST Gabo Kayla * Temp (in Celsius) for [place] CHIN IV Answer Entry Date Author 36.7 11/01/2025 11:05 AM EST Keyon Ayona * IBW/kg (Calculated) Answer Entry Date Author 54.7 11/01/2025 11:05 AM EST Gabo Kayla * Adult Low Range Vt 6mL/kg Answer Entry Date Author 328.2 11/01/2025 11:05 AM EST Gabo Kayla * Adult Moderate Range Vt 8mL/kg Answer Entry Date Author 437.6 11/01/2025 11:05 AM EST Gabo Kayla * Adult High Range Vt 10mL/kg Answer Entry Date Author 547 11/01/2025 11:05 AM EST Keyon Ayona * Pain Score Answer Entry Date Author 5 11/01/2025 11:06 AM EST Gabo Kayla * Vitals Timer Question Answer Entry Date Author Restart Vitals Timer Yes 11/01/2025 11:05 AM EST Keyon Ayona * Pain Screening Answer Entry Date Author 0-10 11/01/2025 11:06 AM EST Keyon Ayona * C-SSRS (Screener) Question Answer Entry Date Author Is patient awake, alert, and able/willing to answer questions appropriately? Yes 11/01/2025 11:08 AM EST Keyon Ayona 1. Wish to be (Past 1 Month) No 025 11:08 AM EST Keyon Ayona 2. Non-Specific Active Suici omar Thoughts (Past 1 Month) No 11/01/2025 11:08 AM EST Kayla Ayon 6. Suicidal Behavior (Lifetime) No 11:08 AM EST Kayla Ayon documented in this encounter Miscellaneous Notes * [...] refilled: Tylenol Mycostatin Albuterol Inhaler Fluticasone Nasal [place] Additional notes: na Clinical Intervention: Immunization recommendations and Lab work needed (A1c, lipids, etc) Patient may need CBC with diff, Lipids, TSH with reflex, UA with reflex. Note abnormal cytoplasmic pattern Preferred Pharmacy: [facility] Additional Notes: Patient c/o pain, weakness, low BP and pulse. Patient requests a script for a new Blood Pressure Monitor and pulse OX. Patient verbalized understanding of Pre-Visit Review. Patient to follow up with provider at upcoming clinic visit. Eloise Singletary RN,[facility] Patient Support Services * Progress Notes [...] to low blood pressure. 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 Occasional [...] exposure. Having trouble with transportation, lives in [place] and daughter has to drive. She is now with PT at [facility] [place]. Is starting to feel achy again but [...] 3 times a day. - nystatin (Mycostatin) 247019 UNIT/GM powder; Apply to groin twice a [...] Description 12/08/2025 11:20 AM EST Office Visit [facility] [address] [place] [address] Rodolfo Rhoades MD [address] [place] [address] Scheduled Orders Name Type Priority Associated Diagnoses Orde r Schedule MR Head wo IV Contrast Imaging Routine Chronic nonintractable headache, unspecified headache type Expected: 11/01/2025 (Approximate), Expires: 05/05/2027 Scheduled Referrals Name Type Priority Associated Diagnoses Orde r Schedule Ambulatory referral to Cardiology Outpatient Referral Routine Chronic atrial fibrillation (CMS/HCC) 1 Occurrences starting 11/01/2025 until 05/05/2027 Ambulatory Referral to [facility] Referral Routine Transportation insecurity 1 [...] - 150 ng/mL 11/01/2025 7:21 PM EST [facility] Blood Venous blood specimen / Unknown Venipuncture / Unknown 11/01/2025 1:03 PM EST 11/01/2025 1:03 PM EST us Rodolfo Rhoades MD LAB BLOOD ORDERABLES Final Res ult [facility] [address] [place] [address] * Iron, Plasma (11/01/2025 1:03 PM EST) Iron, Plasma 79 30 - 160 ug/dL 11/01/2025 7:25 PM EST [facility] Blood Venous blood specimen / Unknown Venipuncture / Unknown 11/01/2025 1:03 PM EST 11/01/2025 1:03 PM EST Rodolfo Rhoades MD LAB BLOOD ORDERABLES Final Res ult Performing Organization Address [facility] de Phone Number [facility] [address] [place] [address] * (ABNORMAL) Protime-INR (11/01/2025 1:03 PM EST) Prothrombin Time 18.6(H) 12.0 - 14.3 sec LAB COAGULATION METHOD 11/01/2025 7:51 PM EST [facility] INR 1.5(H) 0.9 - 1.1 LAB COAGULATION METHOD 11/01/2025 7:51 PM EST [facility] Blood Venous blood specimen / Unknown Venipuncture / Unknown 11/01/2025 1:03 PM EST 11/01/2025 1:03 PM EST Narrative [facility] - 11/01/2025 7:51 PM EST OPTIMAL INR RANGES FOR PATIENT ON ORAL ANTICOAGULANT THERAPY Prevention of venous thromboembolism INR 2.0 to 3.0 In patients with heart disease: Atrial fibrillation INR 2.0 to 3.0 Valvular heart disease INR 2.0 to 3.0 Tissue heart valves INR 2.0 to 3.0 Mechanical prosthetic valves INR 2.5 to 3.5 Prevention of recurrent NV INR 2.5 to 3.5 Rodolfo Rhoades MD LAB BLOOD ORDERABLES Final Res ult Performing Organization Address [facility] Co de Phone Number [facility] [address] [place] [address] * (ABNORMAL) Creatine Kinase (CK), Total (11/01/2025 1:03 PM EST) Creatine Kinase, Plasma 224(H) 37 - 168 U/L 11/01/2025 7:25 PM EST [facility] Blood Venous blood specimen / Unknown Venipuncture / Unknown 11/01/2025 1:03 PM EST 11/01/2025 1:03 PM EST us Rodolfo Rhoades MD LAB BLOOD ORDERABLES Final Res ult [facility] [address] [place] [address] * (ABNORMAL) CBC and Differential (11/01/2025 1:03 PM EST) WBC Count 9.43 3.70 - 10.30 10*3/uL LAB HEMATOLOGY METHOD 11/01/2025 7:00 PM EST [facility] RBC Count 4.43 3.90 - 5.20 10*6/uL LAB HEMATOLOGY METHOD 11/01/2025 7:00 PM EST [facility] HGB 13.1 11.2 - 15.7 g/dL LAB HEMATOLOGY METHOD 11/01/2025 7:00 PM EST [facility] HCT 42.0 34.0 - 45.0 % LAB HEMATOLOGY METHOD 11/01/2025 7:00 PM EST [facility] Platelet Count 314 155 - 369 10*3/uL LAB HEMATOLOGY METHOD 11/01/2025 7:00 PM EST [facility] MCV 95 79 - 98 fL LAB HEMATOLOGY METHOD 11/01/2025 7:00 PM EST [facility] MCH 29.6 26.0 - 32.0 pg LAB HEMATOLOGY METHOD 11/01/2025 7:00 PM EST [facility] MCHC 31.2 30.7 - 35.5 g/dL LAB HEMATOLOGY METHOD 11/01/2025 7:00 PM EST [facility] RDW 12.7 11.5 - 14.5 % LAB HEMATOLOGY METHOD 11/01/2025 7:00 PM EST [facility] MPV 10.6 8.8 - 12.5 fL LAB HEMATOLOGY METHOD 11/01/2025 7:00 PM EST [facility] nRBC 0.0 <=0.0 per 100 WBCs LAB HEMATOLOGY METHOD 11/01/2025 7:00 PM EST [facility] Differential Type Automated LAB HEMATOLOGY METHOD 11/01/2025 7:00 PM EST [facility] Neutrophils % 65 % LAB HEMATOLOGY METHOD 11/01/2025 7:00 PM EST [facility] Lymphocytes % 19 % LAB HEMATOLOGY METHOD 11/01/2025 7:00 PM EST [facility] Monocytes % 8 % LAB HEMATOLOGY METHOD 11/01/2025 7:00 PM EST [facility] Eosinophils % 8 % LAB HEMATOLOGY METHOD 11/01/2025 7:00 PM EST [facility] Basophils % 0 % LAB HEMATOLOGY METHOD 11/01/2025 7:00 PM EST [facility] Immature Granulocytes % 0 % LAB HEMATOLOGY METHOD 11/01/2025 7:00 PM EST [facility] Neutrophils Absolute 6.03 1.60 - 6.10 10*3/uL LAB HEMATOLOGY METHOD 11/01/2025 7:00 PM EST [facility] Lymphocytes Absolute 1.83 1.20 - 3.90 10*3/uL LAB HEMATOLOGY METHOD 11/01/2025 7:00 PM EST [facility] Monocytes Absolute 0.75 0.30 - 0.90 10*3/uL LAB HEMATOLOGY METHOD 11/01/2025 7:00 PM EST [facility] Eosinophils Absolute 0.75(H) 0.00 - 0.50 10*3/uL LAB HEMATOLOGY METHOD 11/01/2025 7:00 PM EST [facility] Basophils Absolute 0.04 0.00 - 0.10 10*3/uL LAB HEMATOLOGY METHOD 11/01/2025 7:00 PM EST [facility] Immature Granulocytes Absolute 0.03 0.00 - 0.06 10*3/uL LAB HEMATOLOGY METHOD 11/01/2025 7:00 PM EST [facility] Blood Venous blood specimen / Unknown Venipuncture / Unknown 11/01/2025 1:03 PM EST 11/01/2025 1:03 PM EST Narrative [facility] - 11/01/2025 7:00 PM EST Therapeutic decision making should be based on absolute values, rather than percentages. us Rodolfo Rhoades MD LAB BLOOD ORDERABLES Final Res ult [facility] [address] [place] [address] * Free T4, Plasma (11/01/2025 1:03 PM EST) Free T4, Plasma 1.3 0.8 - 1.7 ng/dL 11/01/2025 7:25 PM EST [facility] Blood Venous blood specimen / Unknown Venipuncture / Unknown 11/01/2025 1:03 PM EST 11/01/2025 1:03 PM EST Narrative [facility] - 11/01/2025 7:25 PM EST Free T4 Trimester Specific Ranges 1st Trimester 0.9 - 1.50 ng/dL 2nd Trimester 0.7 - 1.40 ng/dL 3rd Trimester 0.7 - 1.24 ng/dL Rodolfo Rhoades MD LAB BLOOD ORDERABLES Final Res ult Performing Organization Address City/[facility]/ZIP Co de Phone Number [facility] [address] [place] [address] * Thyroid Stimulating Hormone, Plasma (11/01/2025 1:03 PM EST) Thyroid Stimulating Hormone, Plasma 1.31 0.40 - 4.20 uIU/mL 11/01/2025 7:25 PM EST [facility] Blood Venous blood specimen / Unknown Venipuncture / Unknown 11/01/2025 1:03 PM EST 11/01/2025 1:03 PM EST Narrative [facility] - 11/01/2025 7:25 PM EST Trimester Specific Ranges TSH ( IU/mL) 1st Trimester 0.1 - 3.0 2nd Trimester 0.19 - 4.06 3rd Trimester 0.3 - 3.7 Rodolfo Rhoades MD LAB BLOOD ORDERABLES Final Res ult Performing Organization Address City/[facility]/ZIP Co de Phone Number [facility] [address] [place] [address] * (ABNORMAL) Comprehensive Metabolic Panel, Plasma (11/01/2025 1:03 PM EST) Glucose, Plasma 69(L) 74 - 99 mg/dL 11/01/2025 7:25 PM EST [facility] BUN, Plasma 6(L) 7 - 21 mg/dL 11/01/2025 7:25 PM EST [facility] Creatinine, Plasma 0.64 0.60 - 1.10 mg/dL 11/01/2025 7:25 PM EST [facility] BUN/Creatinine Ratio 9 11/01/2025 7:25 PM EST [facility] Sodium, Plasma 136 136 - 145 mmol/L 11/01/2025 7:25 PM [facility] Potassium, Plasma 3.7 3.6 - 4.9 mmol/L 11/01/2025 7:25 PM [facility] Chloride, Plasma 99 97 - 107 mmol/L 11/01/2025 7:25 PM [facility] CO2, Plasma 27 22 - 29 mmol/L 11/01/2025 7:25 PM [facility] Anion Gap 10 6 - 16 mmol/L 11/01/2025 7:25 PM [facility] Total Calcium, Plasma 10.1 8.9 - 10.2 mg/dL 11/01/2025 7:25 PM [facility] Total Protein 7.8 6.3 - 7.9 g/dL 11/01/2025 7:25 PM [facility] Albumin, Plasma 3.9 3.5 - 5.2 g/dL 11/01/2025 7:25 PM [facility] AST, Plasma 102(H) 10 - 35 U/L 11/01/2025 7:25 PM [facility] ALT, Plasma 92(H) 10 - 35 U/L 11/01/2025 7:25 PM [facility] Alkaline Phosphatase, Plasma 146(H) 35 - 104 U/L 11/01/2025 7:25 PM [facility] Total Bilirubin, Plasma 0.5 0.2 - 1.1 mg/dL 11/01/2025 7:25 PM [facility] eGFRcr 109.2 mL/min/1.7 3m*2 11/01/2025 7:25 PM [facility] Comment:Reported eGFRcr in m L/min/1.73m2 is based the CKD-EPI 2020 equation that does not use a race coefficient. Blood Venous blood specimen / Unknown Venipuncture / Unknown 11/01/2025 1:03 PM EST 11/01/2025 1:03 PM EST us Rodolfo Rhoades MD LAB BLOOD ORDERABLES Final Res ult [facility] [address] [place] [address] * POCT SARS-CoV-2 COVID-19 Influenza A,B (11/01/2025 12:36 PM EST) POCT Influenza A PCR Not Detected Not Detected POCT Influenza B PCR Not Detected Not Detected POCT COVID 19 PCR Not Detected Not Detected POCT COVID/Flu A,B Kit Lot [id number] POCT COVID/FLU A,B Kit Expiration 01/27/2027 Nasopharyngeal Swab Nasopharyngeal structure / Unknown 11/01/2025 12:36 PM EST us Rodolfo Rhoades MD POINT OF CARE TEST ENTER/EDIT ORDERABLES Final Result * POCT Strep A PCR (11/01/2025 12:34 PM EST) POCT Strep A PCR Not Detected Not Detected Kit Lot Number [id number] Kit Expiration Date 03/29/2027 Swab Structure of [...] documented as of this encounter Care Teams Facing Cutting Machine Operator Relationship Specialty Start Date End Date Rodolfo Rhoades MD [address] [place] [address] PCP - General Family Medicine 02/02/25 Keyonna Goff Community Health Worker 11/01/25 documented as of this encounter
--- NOTE | 2025-11-24 16:18 | ED_ITS ---
<Statement entered by Stephenie Estevez MD - 11/24/25 18:40> I was consulted by the STEPHANIA, and we discussed the complexity of the problems being addressed. I approved the treatment and management plan for this patient's care in the emergency department, thus performing a substantive portion of the medical decision making. Stephenie Estevez MD, THALIA, FACEP Discharge Plan Disposition Patient Disposition: Home, Self-Care Condition: Good Prescriptions Prescriptions: No Action albuterol sulfate 90 mcg/actuation HFA aerosol inhaler 2 puff INHALATION Q4-6H PRN (Reason: shortness of breath or wheezing) Qty: 6.7 0RF fluticasone propionate 50 mcg/actuation spray,suspension 1 spray INTRANASAL DAILY Patient Comments: USE 1 SPRAY IN EACH NOSTRIL DAILY clonidine HCl 0.1 mg tablet 0.1 mg PO DAILY PRN (Reason: Blood Pressure) buprenorphine-naloxone 8-2 mg tablet, sublingual 1.5 tab sublingual ONCE Stiolto Respimat 2.5-2.5 mcg/actuation mist 2 inh inhalation DAILY metoprolol succinate [Toprol XL] 25 mg tablet extended release 24 hr 25 mg PO DAILY Qty: 90 2RF alendronate 70 mg tablet 70 mg PO WEEKLY Patient Comments: TAKE 1 TABLET BY MOUTH ONCE EVERY 7 DAYS ON AN EMPTY STOMACH WITH A FULL GLASS OF WATER. DO NOT LIE DOWN OR TAKE ANYTHING ELSE FOR 30 MINUTES gabapentin 800 mg tablet 800 mg PO TID Patient Comments: patient take qid lisinopril 5 mg tablet 5 mg PO DAILY PRN (Reason: Blood Pressure) Qty: 30 11RF clonazepam 0.5 mg tablet 0.5 mg PO TID 30 Days Qty: 90 1RF Rx Instructions: 1/2 to 1 tab TID prn anxiety warfarin 5 mg tablet 5 mg PO MOWEFR warfarin 5 mg tablet 7.5 mg PO SUTUTHSA Referrals Follow up/Referrals: Clifford Olvera APRN [Primary Care Provider, Family Practice] - See instructions Activity Restrictions/Add. Instructions Additional Instructions/Restrictions: You were evaluated on an emergency basis. It is very important that you follow- up with your primary care provider and any specialist who we discussed within the next 2 days in order to better assess your health more comprehensively. For example, incidental findings on imaging or laboratory results that were performed today may be discovered, which do not require immediate medical care, but may impact your health in the future. If your symptoms worsen or persist, please return to the emergency department immediately for reassessment. Take all medications as prescribed. In queue for allowing me to participate in your health care, and I hope you feel better soon. Clinical Impressions Clinical Impression: Bilateral leg pain Instructions Patient Instructions: DI for Leg Pain Print Language Print Language: Maldivian Discharge ED Provider: Stephenie Estevez General Adult HPI General Chief complaint: Weakness Stated complaint: Needs fluids to get CK levels down Time Seen by Provider: 11/24/25 16:18 History of Present Illness HPI narrative: 50-year-old female presents emergency department with concerns that she has an elevated creatinine kinase. Patient states she had her CK checked by her primary care provider last week and that showed her CK was in the 300s. They repeated the levels on Thursday with a CK in the 600s at that time she states that she was instructed to come to the emergency department for evaluation at that time however she wanted to have Maria M at home with her family so she waited until today to get evaluated. Patient denies nausea, vomiting, prolonged immobilization, excessive working out. She states her only symptom is she has intermittent pain in her legs that is worse at night Related Data Home Medications ?Medication ?Instructions ?Recorded ?Confirmed fluticasone propionate 50 1 spray intranasal DAILY All ergy 12/24/20 09/19/25 mcg/actuation nasal symptoms spray,suspension clonidine HCl 0.1 mg tablet 0.1 mg PO DAILY PRN Blood Pressure 01/12/23 09/19/25 warfarin 5 mg tablet 5 mg PO MOWEFR Blood thinner 01/12/23 09/19/25 warfarin 5 mg tablet 7.5 mg PO SUTUTHSA 02/17/25 09/19/25 buprenorphine 8 mg-naloxone 2 mg 1.5 tab sublingual ON CE 02/20/25 09/19/25 sublingual tablet tiotropium 2.5 mcg-olodaterol 2.5 2 inh inhalation RICHARD LY 02/20/25 09/19/25 mcg/actuation mist for inhalation (Stiolto Respimat) alendronate 70 mg tablet 70 mg PO WEEKLY 06/22/25 gabapentin 800 mg tablet 800 mg PO TID 09/19/2509/19 Previous Rx's ?Medication ?Instructions ?Recorded albuterol sulfate 90 mcg/actuation 2 puff inhalation Q 4-6H PRN 07/31/20 aerosol inhaler shortness of breath or wheez ing #6.7 grams lisinopril 5 mg tablet 5 mg PO DAILY PRN Blood Pres sure 05/11/25 #30 tabs metoprolol succinate 25 mg 25 mg PO DAILY #90 tabs tablet,extended release 24 hr (Toprol XL) clonazepam 0.5 mg tablet 0.5 mg PO TID 30 days #90 ta bs 11/08/25 Allergies Allergy/AdvReac Type Severity Reaction Status Date / Time ibuprofen (IBUPROFEN) Allergy Unknown SOB Verified 09/19/25 15:39 tramadol (TRAMADOL) Allergy Unknown HEART RACES Verified 09/19/25 15:39 PFSH [facility] Disclaimer: The information contained in this section may have been updated after the patient was seen, as this information can be updated by other users. Medical History (HFpEF) heart failure with preserved ejection fraction Sleep apnea History of COVID-19 COPD (chronic obstructive pulmonary disease) Osteoporosis History of gastroesophageal reflux (GERD) Ringing in ears Fatigue Daytime somnolence History of heart attack Hypertension SOB (shortness of breath) Abnormal electrocardiogram [ECG] [EKG] Mixed stress and urge urinary incontinence Patient is taking miragegron and oxybutynin and these are working well. Generalized anxiety disorder Carotid artery stenosis Abnormal cardiovascular stress test Tobacco dependence syndrome Typical angina Surgical History H/O mechanical aortic valve replacement History of hysterectomy H/O aortic valve replacement Family History Other Cancer Stroke Social History Smoking Status: Current every day smoker tobacco type: cigarettes packs per day: 1 second hand exposure: Yes alcohol intake: never substance use type: denies use current occupational status: employed and unemployed Travel in the last 8 weeks?: None household members: children housing: house number of children: 3 current occupation: [employer] current occupational exposures/hazards: No caffeine: Yes Have you lived/traveled outside US in past 30 days?: No Contact w/someone who lives/traveled outside US past 30 days?: No Exposure to someone with infectious disease in past 14 days?: No Do you have a fever (greater than 100.4 F or 38 C)?: No Have you tested positive for COVID-19?: No Exposed to someone with COVID-19 in past 14 days?: No Do you have a sore throat?: No Do you have a cough?: No Do you have any weakness?: No Do you have any diarrhea?: No Are you experiencing any unusual bleeding?: No Do you have any muscle aches/pain?: No Do you have any abdominal pain?: No Are you experiencing loss of taste or smell?: No Other Medical History Have you received the Flu Vaccine for this season: No Have you received the Pneumonia Vaccine: No ROS Obtained: Yes other Musculoskeletal Musculoskeletal: Reports other (Pain in legs bilaterally) Physical Exam Narrative Physical exam: General: Awake, aware, in no acute distress HEENT: Normocephalic, no evidence of trauma CV: RRR, no murmurs, rubs, or gallops Pulm: CTA bilaterally with no rhonchi, rales, wheezes ABD: Nontender, no swelling, guarding, or rebound tenderness Psych, appropriate mood and affect General General appearance: alert Respiratory Respiratory exam: Present normal lung sounds bilaterally Cardiovascular Cardiovascular exam: Present regular rate Neurological Exam Neurological exam: Present alert Medical Decision Making Medical Records Screening: Per USPSTF and CDC recommendations, given the prevalence of disease in our region, it is our hospital?s policy to screen for HIV and viral Hepatitis for all patients aged 18 and over and those with ongoing risk factors. Wilian Inquiry Pt receiving controlled substance: No Vital Signs: 11/24/25 16:22 11/24/25 16:26 Temperature 98.5 F Temperature Source Oral Pulse Rate 82 Pulse Rate [Right] 82 Respiratory Rate 18 Blood Pressure 200/112 H Blood Pressure [Right Arm] 200/100 H Blood Pressure Mean [Right Arm] 133 Blood Pressure Source Automatic Cuff Blood Pressure Source [Right Arm] Automatic Cuff Blood Pressure Position Sitting Blood Pressure Position [Right Arm] Sitting 02 Sat by Pulse Oximetry 97 97 Oxygen Delivery Method Room Air Room Air Lab Data Lab Results 11/24/25 16:35: WBC 8.0, RBC 4.27, Hgb 12.7, Hct 38.0, MCV 89.0, MCH 29.7, MCHC 33.4, RDW 12.2, Plt Count 269, MPV 9.5, Neut % (Auto) 56.6, Lymph % (Auto) 27.7, Tyler % (Auto) 10.8 H, Eos % (Auto) 4.5, Baso % (Auto) 0.2, Neut # (Auto) 4.5, Lymph # (Auto) 2.2, Tyler # (Auto) 0.9, Eos # (Auto) 0.4, Baso # (Auto) 0.0, S odium 130 L, Potassium 3.7, Chloride 100, Carbon Dioxide 25, Anion Gap 8.7, BUN 3 L, Creatinine 0.60, Estimated Creat Clear 86, Estimated GFR 107, Est GFR ( Amer) 129, Glucose 97, Calcium 9.5, Magnesium 1.9, Total Bilirubin 0.7, AST 44 H, ALT 37, Alkaline Phosphatase 103, Total Creatine Kinase 99, Total Protein 8.0, Albumin 4.2, Globulin 3.8 H, Albumin/Globulin Ratio 1.1 11/24/25 16:51: Urine Color Yellow, Urine Appearance Clear, Urine pH 6.0, Ur Specific [place] <= 1.005, Urine Protein Negative, Urine Glucose (UA) Negative, Urine Ketones Negative, Urine Blood Negative, Urine Nitrate Negative, Urine Bilirubin Negative, Urine Urobilinogen 0.2, Ur Leukocyte Esterase Negative 11/24/25 16:35 11/24/25 16:35 Orders (Tests/Meds): ORDERS Category Date Time Status CBC w/Auto Diff [Complete Blood Count Auto Diff] Stat Lab 11/24/25 16:35 Completed CMP [Comprehensive Metabolic Panel] Stat Lab 11/24/25 16:35 Completed Creatine Kinase Stat Lab 11/24/25 16:35 Completed Magnesium Stat Lab 11/24/25 16:35 Completed Urinalysis and Microscopic Stat Lab 11/24/25 16:51 Results Medical Decision Narrative: Initial impression of presenting illness: 50-year-old female presents emergency department concerned that her creatinine kinase levels are elevated. Patient states she had blood work drawn by her primary care provider last week that showed her CK was in the 300s. They repeated the CK on Thursday that now shows it is in the 600s. Patient states her only complaint is intermittent pain to bilateral lower extremities that is worse at night. She denies vomiting, diarrhea, prolonged immobilization, excessive exercise. Differential diagnosis includes but is not limited to: Dehydration, electrolyte abnormality, rhabdo, restless leg syndrome, neuropathy Patient arrives hemodynamically stable, afebrile, without respiratory distress with vital signs interpreted by myself. Initial physical exam unremarkable. Initial diagnostic plan: Laboratory studies, urinalysis Results from initial plan were reviewed and interpreted by myself, pertinent positives include: Laboratory studies including urinalysis were nonactionable. Patient was made aware of the results and the findings, upon reevaluation patient has remained stable throughout stay, symptoms remained stable. Upon reevaluation patient is resting comfortably in bed with no signs of acute distress. Patient's blood pressure currently 159/95. Disposition: Reviewed findings today's workup with patient and informed her that her laboratory studies were nonactionable. Recommended that she follow-up with her primary care provider for reevaluation of her ongoing lower extremity pain also recommended that she continue taking all previously prescribed medications. Instructed her to return to the emergency department any new or worsening symptoms. Patient is agreeable to plan of care. Patient made aware of findings and had a detailed discussion with symptomatic care and return precautions, patient voiced understanding. Critical Care Critical Care Time Critical Care Time: No
--- OUTSIDE RECORDS SUMMARY | 2025-11-24 16:21 | XMS_ITS | Encounter Summary ---
Author Organization [facility] Address [address] [id number] Care Team Providers Care Mobile Sales Consultant Name Role Phone Georgette Moore APRN Primary Care Provider [phone] Veronica Goodwin Unavailable Unavailable Margaret Ro Unavailable Unavailable Rodolfo Rhoades MD Primary Care Provider [phone] [place], Marianne Unavailable Unavailable Ariana Bagley Unavailable Unavailable So Caicedo LPN Unavailable Unavailable Keyonna Goff Unavailable Unavailable Encounter Details Date Type Department Care Team (Late st Contact Info) Description 02/06/2022 Outside Procedure External Location [address] [place] [id number] Provider, Swapnil [place] Social History Tobacco Use [...] Office Visit [facility] [address] [place] [address] Rodolfo Rhoades MD [address] [place] [address] documented as of this encounter Procedures Procedure Name Priority Date/Time Associated Diagnosis Comments XR THORACIC SPINE 3 VIEWS 02/06/2022 2:09 PM EST documented in this encounter Results * XR Thoracic Spine 3 Views (02/06/2022 2:09 PM EST) Anatomical Region Laterality Modality Spine, T-spine Radiographic Tierra ging 02/06/2022 2:09 PM EST Narrative 02/06/2022 3:19 [place] [address] Name: VERONICA ALVAREZ Exam Date: 02/06/2022 : 1975 Age 46 Gender: F Physician: HORACE RYAN Facility: [facility] Facility HSV: Outpatient Exam: [...] Thank you for referring VERONICA ALVAREZ to [facility]. Legally authenticated by GADIEL DELEON 2022-02-06 15:08:18 Procedure Note Provider, [facility] - 02/06/2022 [place] [address] Name: VERONICA ALVAREZ Exam Date: 02/06/2022 : 1975 Age 46 Gender: F Physician: HORACE RYAN Facility: [facility] Facility HSV: Outpatient Exam: [...] Thank you for referring VERONICA ALVAREZ to [facility]. Legally authenticated by GADIEL DELEON 2022-02-06 15:08:18 Generic [place] Provider IMG XR PROCEDURES Fi nal Result [...] documented as of this encounter Care Teams Mobile Sales Consultant Relationship Specialty Start Date End Date Georgette Moore APRN [address] [place] [address] PCP - General 04/12/21 02/01/25 Rodolfo Rhoades MD [address] [place] [address] PCP - General Family Medicine 02/02/25 [place] [address] TCM Nurse 07/25/24 08/25/24 Margaret Ro Community Health Worker 07/27/24 4 Wages, Marianne Clinical Pharmaceutical Engineer 07/14/25 07/28/25 Ariana Bagley Community Health Worker 07/14/25 07/14/25 So Caicedo, SKIDDER OPERATOR VALUE-BASED [place] [address] None TCM Nurse 09/07/25 10/07/25 Keyonna Goff Community Health Worker 11/01/25 documented as of this encounter
--- OUTSIDE RECORDS SUMMARY | 2025-11-24 16:21 | XMS_ITS | Encounter Summary ---
Author Organization Healthcare Address [address] [id number] Care Team Providers Care Fur Trimming Machine Operator Name Role Phone Rodolfo Rhoades MD Primary Care Provider [phone] So Caicedo LPN Unavailable Unavailable Keyonna Goff Unavailable Unavailable Encounter Details Date Type Department Care Team (Late st Contact Info) Description 08/08/2025 Outside Procedure External Location [address] [place] [phone] Provider, Swapnil [place] Social History Tobacco Use Types Packs/Day Years [...] longterm (including now)? No 08/09/[address] [facility] Utilities Answer Date Recorded In [...] Description 12/08/2025 11:20 AM EST Office Visit [facility] [address] [place] [address] Rodolfo Rhoades MD [address] [place] [address] documented as of this encounter Procedures Procedure Name Priority Date/Time Associated Diagnosis Comments CT HIP LEFT W IV CONTRAST 08/08/2025 10:23 AM EDT documented in this encounter Results * CT Hip Left w IV Contrast (08/08/2025 10:23 AM EDT) Anatomical Region Laterality Modality Lower Extremities, Hip Left Computed Tomography 08/08/2025 10:2 3 AM EDT Narrative 08/08/2025 3:06 PM EDT [address] [address] Name: HAILEY ALVAREZ Exam Date: 08/08/2025 : 1975 Age 49 years Gender: F Physician: LOBO LOWERY Facility: [facility] Facility HSV: Inpatient Exam: CT LOWER EXT [...] Thank you for referring HAILEY ALVAREZ to [facility]. Legally authenticated by AVI Colin 2025-08-08 15:01:48 Procedure Note Provider, Swapnil [facility] 08/08/2025 [place] [address] Name: HAILEY ALVAREZ Exam Date: 08/08/2025 : 1975 Age 49 years Gender: F Physician: LOBO LOWERY Facility: [facility] Facility HSV: Inpatient Exam: CT LOWER EXT WITH LT EXAM: CT LOWER EXTREMITY WITH IV CONTRAST LEFT HISTORY: fall, 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 COMPARISON: None. Procedure: Thin section axial images were obtained through the lower extremities after the administration of intravenous contrast..Reconstructed images in the sagittal and coronal planes were reviewed. CT [facility] use dose modulation, iterative reconstruction [...] 08/08/2025 3:01 PM Electronically signed by: Clive Posadsa 08/08/2025 Thank you for referring HAILEY ALVAREZ to [facility]. Legally authenticated by AVI Colin 2025-08-08 15:01:48 us Generic [place] Provider IMG CT PROCEDURES Fi nal Result [...] documented as of this encounter Care Teams Fur Trimming Machine Operator Relationship Specialty Start Date End Date Rodolfo Rhoades MD [address] [place] [address] PCP - General Family Medicine 02/02/25 So Caicedo LPN VALUE-[employer]ED [place] [address] None TCM Nurse 09/07/25 10/07/25 Keyonna Goff Community Health Worker 11/01/25 documented as of this encounter
--- OUTSIDE RECORDS SUMMARY | 2025-11-24 16:21 | XMS_ITS | Encounter Summary ---
Author Organization [facility] Address [facility] [place] [address] Care Team Providers Care Gta Name Role Phone Georgette Moore APRN Primary Care Provider [phone] Veronica Goodwin Unavailable Unavailable Margaret Ro Unavailable Unavailable Rodolfo Rhoades MD Primary Care Provider [phone] [place], Marianne Unavailable Unavailable Ariana Bagley Unavailable Unavailable So Caicedo LPN Unavailable Unavailable Keyonna Gfof Unavailable Unavailable Reason for Visit * Reason Comments Med Refill Encounter Details Date Type Department Care Team (Late st Contact Info) Description 12/21/2021 Refill [facility] [address] [place] [address] Georgette Moore APRN [address] [place] [address] Chronic fatigue Social History Tobacco [...] encounter Miscellaneous Notes * Telephone Encounter - Lionel Liseth Andrzej - 12/24/2021 9:53 AM EST Pt stated she is not taking this, tried canceling this through the pharmacy and they sent this instead. documented in this encounter Plan of Treatment Upcoming Encounters Date Type Department Care Team (Late st Contact Info) Description 12/08/2025 11:20 AM EST Office Visit [facility] [address] [place] [address] Rodolfo Rhoades MD [address] [facility] [place] [address] documented as of this encounter [...] documented as of this encounter Care Teams Gta Relationship Specialty Start Date End Date Georgette Moore APRN [address] [place] [address] PCP - General 04/12/21 02/01/25 Rodolfo Rhoades MD [address] [place] [address] PCP - General Family Medicine 02/02/25 [place] [address] TCM Nurse 07/25/24 08/25/24 Margaret Ro Community Health Worker 07/27/24 4 Wages, Marianne Clinical Shared Services Manager 07/14/25 07/28/25 Ariana Bagley Community Health Worker 07/14/25 07/14/25 So Caicedo, RUBBER STAMP MAKER VALUE-BASED [place] [address] None TCM Nurse 09/07/25 10/07/25 Keyonna Goff Community Health Worker 11/01/25 documented as of this encounter
--- OUTSIDE RECORDS SUMMARY | 2025-11-24 16:21 | XMS_ITS | Encounter Summary ---
Author Organization [facility] Address [address] [id number] Care Team Providers Care Double End Production Grinder Name Role Phone Georgette Moore APRN Primary Care Provider [phone] Veronica Goodwin Unavailable Unavailable Margaret Ro Unavailable Unavailable Rodolfo Rhoades MD Primary Care Provider [phone] [place], Marianne Unavailable Unavailable Ariana Bagley Unavailable Unavailable So Caicedo LPN Unavailable Unavailable Keyonna Goff Unavailable Unavailable Encounter Details Date Type Department Care Team (Late st Contact Info) Description 02/06/2022 Outside Procedure External Location [address] [place] [phone] Provider, Swapnil [place] Social History Tobacco Use [...] Visit [facility] [address] [place] [address] Rodolfo Rhoades MD [address] [place] [address] documented as of this encounter Procedures Procedure Name Priority Date/Time Associated Diagnosis Comments XR CERVICAL SPINE 2 OR 3 VIEWS 02/06/2022 2:09 PM EST documented in this encounter Results * XR Cervical Spine 2 or 3 Views (02/06/2022 2:09 PM EST) Anatomical Region Laterality Modality Spine, C-spine Radiographic Tierra ging 02/06/2022 2:09 PM EST Narrative 02/06/2022 3:21 [place] [address] Name: VERONICA ALVAREZ Exam Date: 02/06/2022 : 1975 Age 46 Gender: F Physician: HORACE RYAN Facility: [facility] Facility HSV: Outpatient Exam: CERVICAL SPINE 2 [...] to [facility]. Legally authenticated by GADIEL DELEON 2022-02-06 15:08:51 Procedure Note Provider, [facility] - 02/06/[address] [id number] Name: VERONICA ALVAREZ Exam Date: 02/06/2022 : 1975 Age 46 Gender: F Physician: HORACE RYAN Facility: [facility] Facility HSV: Outpatient Exam: CERVICAL SPINE 2 [...] to [facility]. Legally authenticated by GADEIL DELEON 2022-02-06 15:08:51 Generic [place] Provider IMG XR PROCEDURES Fi nal Result [...] documented as of this encounter Care Teams Double End Production Grinder Relationship Specialty Start Date End Date Georgette Moore APRN [address] [place] [address] PCP - General 04/12/21 02/01/25 Rodolfo Rhoades MD [address] [place] [address] PCP - General Family Medicine 02/02/25 [place] [address] TCM Nurse 07/25/24 08/25/24 Margaret Ro Community Health Worker 07/27/24 4 Wages, Marianne Clinical Mold Repairer 07/14/25 07/28/25 Ariana Bagley Community Health Worker 07/14/25 07/14/25 So Caicedo LPN VALUE-BASED TR[place]FORMATION [place] [address] None TCM Nurse 09/07/25 10/07/25 Keyonna Goff Community Health Worker 11/01/25 documented as of this encounter
--- OUTSIDE RECORDS SUMMARY | 2025-11-24 16:21 | XMS_ITS | Encounter Summary ---
Author Organization Healthcare Address [address] [phone] Care Team Providers Care Regulatory Analyst Name Role Phone Rodolfo Rhoades MD Primary Care Provider [phone] So Caicedo LPN Unavailable Unavailable Keyonna Goff Unavailable Unavailable Encounter Details Date Type Department Care Team (Late st Contact Info) Description 08/07/2025 Outside Procedure External Location [address] [place] [phone] Provider, Swapnil [place] Social History Tobacco Use Types Packs/Day Years [...] in a detention (including now)? No 08/09/2025 [facility] Utilities Answer Date Recorded In the [...] Description 12/08/2025 11:20 AM EST Office Visit [facility] [address] [place] [address] Rodolfo Rhoades MD [address] [place] [address] documented as of this encounter Procedures Procedure Name Priority Date/Time Associated Diagnosis Comments ECHO, ADULT TRANSTHORACIC LIMITED W/ CONTRAST 08/07/2025 6:38 AM EDT documented in this encounter Results * Echo, Adult Transthoracic Limited w/ Contrast (08/07/2025 6:38 AM EDT) Anatomical Region Laterality Modality Ultrasound 08/07/2025 6:38 AM EDT Narrative 08/07/2025 12:51 PM EDT [address] [address] Name: VERONICA ALVAREZ Exam Date: 08/07/2025 : 1975 Age 49 years Gender: F Physician: JOSSE MONTENEGRO Facility: [facility] Facility HSV: Inpatient Exam: ECHO [...] stenosis with a valve area of 1.34 stereoptician (Peak grad=31mmHg, Mean grad=16mmHg, LVOT grady=2.00cm, LVOT TVI=14.2cm, Ao TVI=33.3cm). The dimensionless index is 0.43. AV peak jervoaxq=486si/sec. There is a Mechanical AV prosthesis. Tricuspid [...] Thank you for referring VERONICA ALVAREZ to [facility]. Legally authenticated by PATTIE Yun 2025-08-07 12:49:32 Procedure Note Provider, Generic [place] - 08/07/20[address] [id number] Name: VERONICA ALVAREZ Exam Date: 08/07/2025 : 1975 Age 49 years Gender: F Physician: JOSSE MONTENEGRO Facility: [facility] Facility HSV: Inpatient Exam: ECHO [...] stenosis with a valve area of 1.34 stereoptician (Peak grad=31mmHg, Mean grad=16mmHg, LVOT grady=2.00cm, LVOT TVI=14.2cm, Ao TVI=33.3cm). The dimensionless index is 0.43. AV peak uunfhkkn=280sh/sec. There is a Mechanical AV prosthesis. Tricuspid [...] Thank you for referring VERONICA ALVAREZ to [facility]. Legally authenticated by PATTIE Yun 2025-08-07 12:49:32 Generic [place] Provider CV ECHO PROCEDURES F inal Result [...] documented as of this encounter Care Teams Regulatory Analyst Relationship Specialty Start Date End Date Rodolfo Rhoades MD [address] [place] [address] PCP - General Family Medicine 02/02/25 So Caicedo LPN VALUE-BASED [place] [address] None TCM Nurse 09/07/25 10/07/25 Keyonna Goff Community Health Worker 11/01/25 documented as of this encounter
--- OUTSIDE RECORDS SUMMARY | 2025-11-24 16:21 | XMS_ITS | Encounter Summary ---
Author Organization [facility] Address [address] [id number] Care Team Providers Care Guest Room Attendant Name Role Phone Georgette Moore APRN Primary Care Provider [phone] Veronica Goodwin Unavailable Unavailable Margaret Ro Unavailable Unavailable Rodolfo Rhoades MD Primary Care Provider [phone] [place], Marianne Unavailable Unavailable Ariana Bagley Unavailable Unavailable So Caicedo LPN Unavailable Unavailable Keyonna Goff Unavailable Unavailable Encounter Details Date Type Department Care Team (Late st Contact Info) Description 02/06/2022 Outside Procedure External Location [address] [place] [phone] Provider, Swapnil [place] Social History Tobacco Use [...] Visit [facility] [address] [place] [address] Rodolfo Rhoades MD [address] [place] [address] documented as of this encounter Procedures Procedure Name Priority Date/Time Associated Diagnosis Comments XR LUMBAR SPINE 2 OR 3 VIEWS 02/06/2022 2:09 PM EST documented in this encounter Results * XR Lumbar Spine 2 or 3 Views (02/06/2022 2:09 PM EST) Anatomical Region Laterality Modality Spine, L-spine Radiographic Tierra ging 02/06/2022 2:09 PM EST Narrative 02/06/2022 3:19 [place] [address] Name: VERONICA ALVAREZ Exam Date: 02/06/2022 : 1975 Age 46 Gender: F Physician: HORACE RYAN Facility: [facility] Facility HSV: Outpatient Exam: LUMBAR SPINE 2 [...] Thank you for referring VERONICA ALVAREZ to [facility]. Legally authenticated by GADIEL DELEON 2022-02-06 15:07:32 Procedure Note Provider, Generic [place] - 02/06/2022 [place] [address] Name: VERONICA ALVAREZ Exam Date: 02/06/2022 : 1975 Age 46 Gender: F Physician: HORACE RYAN Facility: [facility] Facility HSV: Outpatient Exam: LUMBAR SPINE 2 [...] Thank you for referring VERONICA ALVAREZ to [facility]. Legally authenticated by GADIEL DELEON 2022-02-06 15:07:32 us Generic [place] Provider IMG XR PROCEDURES Fi nal Result [...] documented as of this encounter Care Teams Guest Room Attendant Relationship Specialty Start Date End Date Georgette Moore APRN [address] [place] [address] PCP - General 04/12/21 02/01/25 Rodolfo Rhoades MD [address] [place] [address] PCP - General Family Medicine 02/02/25 [place] [address] TCM Nurse 07/25/24 08/25/24 Margaret Ro Community Health Worker 07/27/24 4 Wages, Marianne Clinical Plasma Center Nurse 07/14/25 07/28/25 Ariana Bagley Community Health Worker 07/14/25 07/14/25 So Caicedo LPN VALUE-BASED [place] [address] None TCM Nurse 09/07/25 10/07/25 Keyonna Goff Community Health Worker 11/01/25 documented as of this encounter
--- OUTSIDE RECORDS SUMMARY | 2025-11-24 16:21 | XMS_ITS ---
Author Organization [facility] Address [address] [place] [address] Care Team Providers Care Research Software Engineer Name Role Phone Rodolfo Rhoades MD Primary Care Provider [phone] Keyonna Goff Unavailable Unavailable Community Health Work Status:Active (Active) Program category:Care Coordination Start date:11/01/2025 Enrollment date:11/02/2025 Overview This episode type is for outpatient Community Health Workers enrolling patients in their program. Case Team Name Relationship Phone Keyonna Goff(Responsible Staff) Community a lth Worker Continued Care and Services Coordination
--- OUTSIDE RECORDS SUMMARY | 2025-11-24 16:21 | XMS_ITS | Encounter Summary ---
Author Organization Healthcare Address [address] [phone] Care Team Providers Care Mule Operator Name Role Phone Rodolfo Rhoades MD Primary Care Provider [phone] So Caicdeo LPN Unavailable Unavailable Keyonna Goff Unavailable Unavailable Encounter Details Date Type Department Care Team (Late st Contact Info) Description 09/07/2025 Results Follow-Up [facility] Inpatient Pharmacy [address] [place] [phone] Annemarie Grover, PharmD [place] [address] Social History Tobacco Use Types Packs/Day Years [...] a care home (including now)? No 08/09/2025 [facility] Utilities Answer Date Recorded In [...] Description 12/08/2025 11:20 AM EST Office Visit [facility] [address] [place] [address] Rodolfo Rhoades MD [address] [place] [address] documented as of this encounter [...] documented as of this encounter Care Teams Mule Operator Relationship Specialty Start Date End Date Rodolfo Rhoades MD [address] [place] [address] PCP - General Family Medicine 02/02/25 So Caicedo LPN VALUE-BASED [place] [address] None TCM Nurse 09/07/25 10/07/25 Keyonna Goff Community Health Worker 11/01/25 documented as of this encounter
--- OUTSIDE RECORDS SUMMARY | 2025-11-24 16:21 | XMS_ITS | Encounter Summary ---
Author Organization Healthcare Address [facility] [place] [address] Care Team Providers Care Field Radio Technician Name Role Phone Georgette Moore APRN Primary Care Provider [phone] Rodolfo Rohades MD Primary Care Provider [phone] Wages, Marianne Unavailable Unavailable Ariana Bagley Unavailable Unavailable So Caicedo LPN Unavailable Unavailable Keyonna Goff Unavailable Unavailable Reason for Visit * Reason Comments Med Refill Encounter Details Date Type Department Care Team (Late st Contact Info) Description 11/28/2024 Refill [facility] [address] [place] [address] Imelda Burgos APRN [address] [place] [address] COPD exacerbation (CMS/HCC); Cough with [...] AM EST [facility] [address] [place] [address] Rodolfo Rhoades MD [address] [place] [address] documented as of this encounter Visit Diagnoses Diagnosis COPD exacerbation ([facility]) Obstructive chronic bronchitis with exacerbation Cough [...] documented as of this encounter Care Teams Field Radio Technician Relationship Specialty Start Date End Date Georgette Moore APRN [address] [place] [address] PCP - General 04/12/21 02/01/25 Rodolfo Rhoades MD [address] [place] [address] PCP - General Family Medicine 02/02/25 WagesMarianne Clinical Fire Eater 07/14/25 07/28/25 Ariana Bagley Community Health Worker 07/14/25 07/14/25 So Caicedo LPN VAL[employer] [place] [address] None TCM Nurse 09/07/25 10/07/25 Keyonna Goff Community Health Worker 11/01/25 documented as of this encounter
--- OUTSIDE RECORDS SUMMARY | 2025-11-24 16:21 | XMS_ITS | Encounter Summary ---
Author Organization Healthcare Address [facility] [place] [address] Care Team Providers Care Hogshead Cooper Name Role Phone Rodolfo Rhoades MD Primary Care Provider [phone] So Caicedo LPN Unavailable Unavailable Keyonna Goff Unavailable Unavailable Encounter Details Date Type Department Care Team (Late st Contact Info) Description 09/20/2025 Results Follow-Up [facility] [address] [place] [address] Rodolfo Rhoades MD [address] [place] [address] Social History Tobacco Use Types [...] any time in the past 12 m [facility], were you homeless or living in a longterm (including now)? No 08/09/2025 [facility] Utilities Answer Date Recorded In the [...] Description 12/08/2025 11:20 AM EST Office Visit [facility] [address] [place] [address] Rodolfo Rhoades MD [address] [place] [address] documented as of this encounter [...] documented as of this encounter Care Teams Hogshead Cooper Relationship Specialty Start Date End Date Rodolfo Rhoades MD [address] [place] [address] PCP - General Family Medicine 02/02/25 So Caicedo LPN VALUE-BASED [place] [address] None TCM Nurse 09/07/25 10/07/25 Keyonna Goff Community Health Worker 11/01/25 documented as of this encounter
[2025-11-24 16:22] VITALS: BP 200/100; PULSE 82; RESP 18; TEMP 36.9; O2SAT 97; BMI 18.0
--- OUTSIDE RECORDS SUMMARY | 2025-11-24 16:22 | XMS_ITS | Encounter Summary ---
Author Organization Healthcare Address [address] [id number] Care Team Providers Care Certified Wellness Program Coordinator Name Role Phone Georgette Moore APRN Primary Care Provider [phone] Veronica Goodwin Unavailable Unavailable Margaret Ro Unavailable Unavailable Rodolfo Rhoades MD Primary Care Provider [phone] Marianne Bolaños Unavailable Unavailable Ariana Bagley Unavailable Unavailable So Caicedo LPN Unavailable Unavailable Keyonna Goff Unavailable Unavailable Encounter Details Date Type Department Care Team (Late st Contact Info) Description 07/22/2024 Outside Procedure External Location [address] [place] [id number] Provider, Swapnil Monique Social History Tobacco Use [...] in a long-term (including now)? No 07/25/2024 Safety and Environment [...] In the past 12 months has [employer], gas, oil, or water [email or web address] threatened to shut off services in your [...] Description 12/08/2025 11:20 AM EST Office Visit [facility] [address] [place] [address] Rodolfo Rhoades MD [address] [place] [address] documented as of this encounter Procedures Procedure Name Priority Date/Time Associated Diagnosis Comments ECHO, ADULT TRANSTHORACIC COMPLETE W/ COLOR AND DOPPLER 07/22/2024 6:31 AM EDT documented in this encounter Results * Echo, Adult Transthoracic Complete w/ Color and Doppler (07/22/2024 6:31 AM EDT) Anatomical Region Laterality Modality Ultrasound 07/22/2024 6:31 AM EDT Narrative 07/22/2024 12:07 PM EDT [address] [address] Name: VERONICA ALVAREZ Exam Date: 07/22/2024 : 1975 Age 48 years Gender: F Physician: VICTORIANO REYES Facility: [facility] Facility HSV: Inpatient Exam: ECHO [...] stenosis with a valve area of 0.85 rib stiffener and heel dipper (Peak grad=45mmHg, Mean grad=24mmHg, LVOT grady=2.10cm, LVOT TVI=19.3cm, Ao TVI=79.0cm). The dimensionless index is 0.24. AV peak dlxekzet=972km/sec. There is a Mechanical AV prosthesis. (Peak [...] to [facility]. Legally authenticated by CINDY JORDAN 2024-07-22 12:04:58 Procedure Note Provider, Generic [place] - 07/22/2024 [place] [address] Name: VERONICA ALVAREZ Exam Date: 07/22/2024 : 1975 Age 48 years Gender: F Physician: VICTORIANO REYES Facility: [facility] Facility HSV: Inpatient Exam: ECHO [...] stenosis with a valve area of 0.85 rib stiffener and heel dipper (Peak grad=45mmHg, Mean grad=24mmHg, LVOT grady=2.10cm, LVOT TVI=19.3cm, Ao TVI=79.0cm). The dimensionless index is 0.24. AV peak pcuwmmtt=040gd/sec. There is a Mechanical AV prosthesis. (Peak [...] to [facility]. Legally authenticated by CINDY JORDAN 2024-07-22 12:04:58 us Generic [place] Provider CV ECHO PROCEDURES F inal Result [...] documented as of this encounter Care Teams Certified Wellness Program Coordinator Relationship Specialty Start Date End Date Georgette Moore APRN [address] [place] [id number] PCP - General 04/12/21 02/01/25 Rodolfo Rhoades MD [address] [place] [phone] PCP - General Family Medicine 02/02/25 [place] [address] TCM Nurse 07/25/24 08/25/24 Margaret Ro Community Health Worker 07/27/24 4 Wages, Marianne Clinical Completions Engineer 07/14/25 07/28/25 Ariana Bagley Community Health Worker 07/14/25 07/14/25 So Caicedo LPN [employer] [address] None TCM Nurse 09/07/25 10/07/25 Keyonna Goff Community Health Worker 11/01/25 documented as of this encounter
--- OUTSIDE RECORDS SUMMARY | 2025-11-24 16:22 | XMS_ITS | Encounter Summary ---
Author Organization Healthcare Address [address] [place] [address] Care Team Providers Care Electronic Publishing Specialist Name Role Phone Rodolfo Rhoades MD Primary Care Provider [phone] Wages, Marianne Unavailable Unavailable Ariana Bagley Unavailable Unavailable So Caicedo LPN Unavailable Unavailable Keyonna Goff Unavailable Unavailable Reason for Visit * Reason Comments Med Refill Encounter Details Date Type Department Care Team (Late st Contact Info) Description 07/07/2025 Refill [facility] [address] [place] [address] Rodolfo Rhoades MD [address] [place] [address] Social History Tobacco Use Types [...] Recorded In the past 12 months has [employer], gas, oil, or water company threatened [...] AM EST Office Visit [facility] [address] [place] [address] Rodolfo Rhoades MD [address] [place] [address] documented as of this encounter [...] documented as of this encounter Care Teams Electronic Publishing Specialist Relationship Specialty Start Date End Date Rodolfo Rhoades MD [address] [place] [address] PCP - General Family Medicine 02/02/25 Marianne Bolaños Clinical [employer] Consultant 07/14/25 07/28/25 Ariana Bagley Community Health Worker 07/14/25 07/14/25 So Caicedo LPN [employer] [address] None TCM Nurse 09/07/25 10/07/25 Keyonna Goff Community Health Worker 11/01/25 documented as of this encounter
--- OUTSIDE RECORDS SUMMARY | 2025-11-24 16:22 | XMS_ITS | Encounter Summary ---
Author Organization [facility] Address [place] [address] Care Team Providers Care Bit Grinder Name Role Phone Rodolfo Rhoades MD Primary Care Provider [phone] Keyonna Goff Unavailable Unavailable Reason for Visit * Reason Onset Date Comments HCN Clinical Concern/Question 11/24/2025 Encounter Details Date Type Department Care Team (Late st Contact Info) Description 11/24/2025 Telephone [facility] [address] [place] [address] Rodolfo Rhoades MD [address] [place] [address] HCN Clinical Concern/Question Social History [...] the past 12 m [facility], were you homeless or living in a senior living (including now)? No 08/09/2025 [facility] Utilities Answer Date Recorded In the [...] encounter Miscellaneous Notes * Telephone Encounter - Anamika Levin - 11/24/2025 3:14 PM EST Clinical Concern/Question Reason for Call: she is asking for a nurse to call to discuss/let Dr. Rhoades know that she is going to the local hospital in [facility] and she has already talked with them there. She is going o get fluids. She is wanting to come home after that and wants no other issues. She sent a message via my chart but was afraid no one would see in time. Please call patient Best contact number: [phone] Optimal time of day to reach caller: [...] Description 12/08/2025 11:20 AM EST Office Visit [facility] [address] [place] [address] Rodolfo Rhoades MD [address] [place] [address] documented as of this encounter Visit [...] documented as of this encounter Care Teams Bit Grinder Relationship Specialty Start Date End Date Rodolfo Rhoades MD [address] [place] [phone] PCP - General Family Medicine 02/02/25 Keyonna Goff Community Health Worker 11/01/25 documented as of this encounter
--- OUTSIDE RECORDS SUMMARY | 2025-11-24 16:22 | XMS_ITS | Encounter Summary ---
Author Organization Healthcare Address [address] [id number] Care Team Providers Care Commercial Project Manager Name Role Phone Rodolfo Rhoades MD Primary Care Provider [phone] Keyonna Goff Unavailable Unavailable Reason for Visit * Reason Comments [facility] Encounter Details Date Type Department Care Team (Late st Contact Info) Description 11/20/2025 Patient Outreach [facility] [address] [place] [address] Keyonna Goff [facility] Social History [...] in a mcc (including now)? No 08/09/2025 [facility] Utilities Answer Date Recorded [...] AM EDT documented as of this encounter Mental Status * Pop Health Reason For Visit Assessment Group Question Answer Entry Date Author Outreach Reason Follow-Up 11/20/2025 3:18 PM EST Keyonna Head Pop Health Reason For Encounter [facility] 11/20/20 3:18 PM EST Keyonna Goff documented in this encounter Miscellaneous Notes * Progress Notes - Keyonna Goff - 11/20/2025 2:57 PM EST 11/20/2025 CHW Follow-up: Follow-up from 11/02/25 Contact - Phone Reason for Follow-up: CHW attempted to call the pt to follow up about their SDOH needs and community resources, but the pt did not answer. CHW left a voicemail with their contact info. Plan: CHW will attempt to reach out to the pt on 11/27/25, if they have not responded prior. documented in this encounter Plan of Treatment Upcoming Encounters Date Type Department Care Team (Late Contact Info) Description 12/08/2025 11:20 AM EST Office Visit [facility] [address] [place] [address] Rodolfo Rhoades MD [address] [place] [address] documented as of this encounter [...] as of this encounter Care Teams Commercial Project Manager Relationship Specialty Start Date End Date Rodolfo Rhoades MD [address] [place] [phone] PCP - General Family Medicine 02/02/25 Keyonna Goff Community Health Worker 11/01/25 documented as of this encounter
--- OUTSIDE RECORDS SUMMARY | 2025-11-24 16:22 | XMS_ITS | Encounter Summary ---
Author Organization [facility] Address [facility] [place] [place] [address] Care Team Providers Care Cementing Machine Operator Name Role Phone Rodolfo Rhoades MD Primary Care Provider Keyonna Goff Unavailable Unavailable Reason for Visit * Reason Onset Date Comments HCN - Patient Message 10/19/2025 Encounter Details Date Type Department Care Team (Late st Contact Info) Description 10/19/2025 Telephone [facility] [address] [place] [address] Rodolfo Rhoades MD [address] [place] [address] HCN - Patient Message Social [...] a long term (including now)? No 08/09/2025 [facility] Utilities Answer Date Recorded In [...] with other providers or she could try [facility]. Pt wanted appt with Georgette, appt scheduled. Pt voiced understanding. * Telephone Encounter - Anamika Levin - 10/19/2025 1:50 PM EST Clinical Concern/Question Reason for Call: she is asking for a nurse to call to discuss a blister that has developed on rightleg. She is asking for a call back to advise. Please call Best contact number: [phone] Optimal time of day to reach caller: Additional comments/information from caller: Note: Please do not reply to this message. Follow-up communication and further actions as a result of this message need to be communicated with the patient directly, if the patient is not active onMyChart. If the patient is active on MyChart, they will receive notification of the communication/outcome via [employer]. documented in this encounter Plan of Treatment Upcoming Encounters Date Type Department Care Team (Late st Contact Info) Description 12/08/2025 11:20 AM EST Office Visit [facility] [address] [place] [address] Rodolfo Rhoades [...] documented as of this encounter Care Teams Cementing Machine Operator Relationship Specialty Start Date End Date Rodolfo Rhoades MD [address] [address] PCP - General Family Medicine 02/02/25 Keyonna Goff Community Health Worker 11/01/25 documented as of this encounter
--- OUTSIDE RECORDS SUMMARY | 2025-11-24 16:22 | XMS_ITS | Clinical Summary ---
Author Organization Healthcare Address [address] [id number] Care Team Providers Care Hourly Shift Manager Name Role Phone Rodolfo Rhoades MD Primary Care Provider [phone] Keyonna Goff Unavailable Unavailable Allergies Active Allergy [...] g 12 11/01/20 25 Active nystatin (Mycostatin) 201682 UNIT/GM powder Apply to groin twice a [...] 09/06/20 25 2024 Discontinued(R eorder) nystatin (Mycostatin) 787762 UNIT/GM powder Apply to groin twice a [...] PRN and hydroxyzine q6hr PRN. PLAN: - [employer] following - Continue home Klonopin TID PRN - Continue hydroxyzine 25 mg q6h PRN Assessment & Plan (08/28/2025 7:38 AM EDT): - Patient takes Klonopin TID PRN and hydroxyzine q6hr PRN. PLAN: - [employer] following - Continue home Klonopin TID PRN - Continue hydroxyzine 25 mg q6h PRN Assessment & Plan (08/27/2025 6:17 PM EDT): - Patient takes Klonopin TID PRN and hydroxyzine q6hr PRN. PLAN: - [employer] following - Continue home Klonopin TID PRN - Continue hydroxyzine 25 mg q6h PRN Assessment & Plan (08/26/2025 7:20 AM EDT): - Patient takes Klonopin TID for anxiety. - Patient denies consideration of cymbalta. Has previously denied discussion regarding SSRIs. PLAN - [employer] following - Continue home Klonopin TID PRN - Continue hydroxyzine 25 mg q6h PRN Assessment & Plan (08/25/2025 1:17 PM EDT): - Patient takes Klonopin TID for anxiety. - Patient denies consideration of cymbalta. Has previously denied discussion regarding SSRIs. PLAN - [employer] following - Continue home Klonopin TID PRN - Continue hydroxyzine 25 mg q6h PRN Assessment & Plan (08/24/2025 11:26 AM EDT): - Patient takes Klonopin TID for anxiety. - Patient denies consideration of cymbalta. Has previously denied discussion regarding SSRIs. - [employer] saw Ms. Weiss yesterday and she states that she was extremely thankful for their visit. PLAN - [employer] following - Continue home Klonopin TID PRN - Continue hydroxyzine 25 mg q6h PRN Assessment & Plan (08/23/2025 12:08 PM EDT): - Patient takes Klonopin TID for anxiety. - Patient denies consideration of cymbalta. She denies wanting to discuss SSRI options today. PLAN - Consulted summer internship services for support - Continue home Klonopin [...] Plan (08/25/2025 1:17 PM EDT): PLAN - ASSISTED LIVING DIRECTOR reevaluated today. With patient agreed to go to full diet. Patient still requires a 1:1 assist with eating due to difficulty with hand strength. Assessment & Plan (08/24/2025 11:26 AM EDT): - Dobhoff tube was removed yesterday since she has been tolerating her diet appropriately - Patient has been continuing to eat soft and bite sized diet with 1:1 assistance PLAN - ASSISTED LIVING DIRECTOR following, appreciate recommendations Assessment & Plan (08/23/2025 12:08 PM EDT): - Repeat MBS on 08/22 demonstrated intermittent penetration and aspiration of thin liquids. Ordered soft and bite sized diet on 08/22 with 1:1 feeding assistance. - Tube feeds held PM 08/01. Dobhoff tube is still in place. - Patient has been tolerating soft and bite sized diet well. PLAN - ASSISTED LIVING DIRECTOR following, appreciate recommendations - Planning to remove dobhoff tube later in the day to make sure that breakfast and lunch were tolerated well. Assessment & Plan (08/22/2025 8:39 AM EDT): - MBS on 08/15 with aspiration of thin, nectar, and honey barium consistency - Dobhoff tube in place PLAN - ASSISTED LIVING DIRECTOR following, appreciate recommendations - Continue isosource tube [...] Recommends outpatient EMG - Follow-up requested with [facility] Neurology Assessment & Plan (08/30/2025 12:05 PM [...] organization. Date Type Department Care Team Description 11/24/2025 Telephone [facility] [address] [place] [address] Rodolfo Rhoades MD HCN Clinical Concern/Question 11/20/2025 Patient Outreach [facility] [address] [facility] [address], [address] [place] [address] Keyonna Goff Ch[facility] 11/20/2025 Telephone [facility] [address] [place] [address] Rodolfo Rhoades MD 11/20/2025 Telephone [facility] [address] [place] [address] Rodolfo Rhoades MD HCN Lab/home Health (Lab order) 11/17/2025 Telephone [facility] [address] [place] [address] Rodolfo Rhoades MD HCN Clinical Concern/Question 11/10/2025 Telephone [facility] [address] [place] [address] Rodolfo Rhoades MD HCN Clinical Concern/Question 11/09/2025 Patient Outreach [address], [facility] [address] [place] [address] Keyonna Goff [facility] 11/07/2025 Orders Only [facility] [address] [place] [address] Rodolfo Rhoades MD Elevated CK (Primary Dx) 11/02/[address] [place] [address] Rodolfo Rhoades MD HCN Paperwork/Documentati on Request 11/02/2025 Patient Outreach [address], [address] [place] [address] Keyonna Goff [facility] 11/02/2025 Results Follow-Up [address] [place] [address] Rodolfo Rhoades MD 11/02/2025 Orders Only [address] [place] [address] Rodolfo Rhoades MD Non-traumatic rhabdomyolysis (Primary Dx); Elevated CK 11/01/2025 10:40 AM EST Office Visit [facility] [address] [place] [address] Rodolfo Rhoades MD Sore throat (Primary Dx); Moderate persistent asthma without complication; Acute recurrent maxillary sinusitis; Fatigue, unspecified type; Acute upper respiratory infection, unspecified; Chronic nonintractable headache, unspecified headache type; Chronic atrial fibrillation (CMS/HCC); Essential hypertension; Non-traumatic rhabdomyolysis; Elevated CK; Transportation insecurity; Anemia, unspecified type 11/01/2025 Patient Outreach [facility] [address] [place] [address] MicheleKeyonna arevalo D [facility] 11/01/2025 Travel 10/19/2025 Telephone [facility] [address] [place] [address] Rodolfo Rhoades MD HCN - Patient Message 10/11/2025 Refill [facility] [address] [place] [address] Rodolfo Rhoades MD Low vitamin D level 10/08/2025 Results Follow-Up [facility] [address] [place] [address] Rodolfo Rhoades MD 10/05/2025 11:00 AM EST Office Visit [facility] [address] [place] [address] Roodlfo Rhoades MD Non-traumatic rhabdomyolysis (Primary Dx); Essential hypertension; Nerve pain; Elevated CK; Generalized weakness 10/05/2025 Travel 10/05/2025 Refill [facility] [address] [facility], [address] [place] [address] Tammy Caban MD 10/02/2025 9:40 AM EST Office Visit [facility] [address] [place] [address] Georgette Moore APRN Non-traumatic rhabdomyolysis (Primary Dx) 10/02/2025 Telephone [facility] [address] [place] [address] Rodolfo Rhoades MD 10/02/2025 Travel 09/20/2025 Results Follow-Up [facility] [address] [place] [address] Rodolfo Rhoades MD 09/19/2025 Telephone [facility] [address] [place] [address] Rodolfo Rhoades MD 09/15/2025 1:00 PM EDT Office Visit [facility] [address] [place] [address] Rodolfo Rhoades MD Sequela, post-stroke (Primary Dx); Non-traumatic rhabdomyolysis; Mixed hyperlipidemia; Vitamin D deficiency; Chronic atrial fibrillation (CMS/HCC); Essential hypertension; Anemia, unspecified type 09/15/2025 Travel 09/08/2025 Telephone [facility] [address] [place] [address] Rodolfo Rhoades MD 09/08/2025 Patient Outreach POPULATION [facility] [address] [place] [address], [address] [place] [address] So Caicedo LPN [facility] 09/07/2025 Results Follow-Up [facility] [address] [place] [address] Annemarie Grover, PharmD 09/07/2025 Patient Outreach POPULATION [address], [address] [place] [address] So Caicedo LPN [facility] 08/30/2025 Travel from Last 3 Months Immunizations Immunization Administration Dates Next Due Influenza, injectable, quadrivalent 12/17/2016 Influenza, injectable, quadr ivalent, preservative free 09/20/2020 Influenza, seasonal, injecta ble, preservative free 12/17/2016 Pfizer-BioNTUnivision COVID-19 Vac cine (Purple Cap) 12+ 11/27/2021,04/05/2021,03/08/2021 [...] time in the past 12 m [facility], were you homeless or living [...] Description 12/08/2025 11:20 AM EST Office Visit [facility] [address] [address] Rodolfo Rhoades MD [address] [address] Health Maintenance Due Date Last Done [...] 2022 FIT 2022 FOBT 2022 Sigmoidoscopy 2022 [id number] Vaccine ( - season) 2025 11/27/2021, 04/05/2021, 03/08/2021 [facility]-Influenza Vaccine (#1) 07/31/202509/20, 12/17/2016, 12/17/2016 [facility]- SDOH Screenings 02/06/2026 [facility]-Adult SDOH Screenings 02/06/2026 08/09/2025 [facility]-Depression Screening 10/02/2026 10/02/2025, 1101/2025 FIT-DNA 03/20/2027 03/20/2024 Colonoscopy 02/24/2035 02/24/2025 [facility]-Colorectal [...] UNSOLICITED RESULTS Routine 08/25/2025 5:23 AM EDT HUMAN IMMUNODEFICIENCY VIRUS (HIV-1) QUANTITATIVE PCR Routine 08/12/2025 5:12 PM EDT ACUTE HEPATITIS PANEL STAT 08/09/2025 3:57 AM EDT HEMOGLOBIN A1C Routine 08/07/2025 5:05 AM EDT COLONOSCOPY EXTERNAL RESULT 02/24/2025 from Last 3 Months or Most Recently Relevant to Health Maintenance Results * (ABNORMAL) Creatine Kinase (CK), Total (11/01/2025 1:03 PM EST) Only the most recent of3 resultswithin the time period is included. Creatine Kinase, Plasma 224(H) 37 - 168 U/L 11/01/2025 7:25 PM EST [facility] Blood Venous blood specimen / Unknown Venipuncture / Unknown 11/01/2025 1:03 PM EST 11/01/2025 1:03 PM EST Rodolfo Rhoades MD LAB BLOOD ORDERABLES Final Res ult Performing Organization Address [facility] Co de Phone Number [facility] [address] [place] [address] * (ABNORMAL) Protime-INR (11/01/2025 1:03 PM EST) Only the most recent of14 resultswithin the time period is included. Prothrombin Time 18.6(H) 12.0 - 14.3 sec LAB COAGULATION METHOD 11/01/2025 7:51 PM EST [facility] INR 1.5(H) 0.9 - 1.1 LAB COAGULATION METHOD 11/01/2025 7:51 PM EST [facility] Blood Venous blood specimen / Unknown Venipuncture / Unknown 11/01/2025 1:03 PM EST 11/01/2025 1:03 PM EST Narrative [facility] - 11/01/2025 7:51 PM EST OPTIMAL INR RANGES FOR PATIENT ON ORAL ANTICOAGULANT THERAPY Prevention of venous thromboembolism INR 2.0 to 3.0 In patients with heart disease: Atrial fibrillation INR 2.0 to 3.0 Valvular heart disease INR 2.0 to 3.0 Tissue heart valves INR 2.0 to 3.0 Mechanical prosthetic valves INR 2.5 to 3.5 Prevention of recurrent TN INR 2.5 to 3.5 Rodolfo Rhoades MD LAB BLOOD ORDERABLES Final Res ult Performing Organization Address City/[facility]/ZIP Co de Phone Number [facility] [address] [place] [address] * (ABNORMAL) CBC and Differential (11/01/2025 1:03 PM EST) Only the most recent of15 resultswithin the time period is included. WBC Count 9.43 3.70 - 10.30 10*3/uL LAB HEMATOLOGY METHOD 11/01/2025 7:00 PM [facility] RBC Count 4.43 3.90 - 5.20 10*6/uL LAB HEMATOLOGY METHOD 11/01/2025 7:00 PM [facility] HGB 13.1 11.2 - 15.7 g/dL LAB HEMATOLOGY METHOD 11/01/2025 7:00 PM [facility] HCT 42.0 34.0 - 45.0 % LAB HEMATOLOGY METHOD 11/01/2025 7:00 PM [facility] Platelet Count 314 155 - 369 10*3/uL LAB HEMATOLOGY METHOD 11/01/2025 7:00 PM [facility] MCV 95 79 - 98 fL LAB HEMATOLOGY METHOD 11/01/2025 7:00 PM [facility] MCH 29.6 26.0 - 32.0 pg LAB HEMATOLOGY METHOD 11/01/2025 7:00 PM [facility] MCHC 31.2 30.7 - 35.5 g/dL LAB HEMATOLOGY METHOD 11/01/2025 7:00 PM [facility] RDW 12.7 11.5 - 14.5 % LAB HEMATOLOGY METHOD 11/01/2025 7:00 PM [facility] MPV 10.6 8.8 - 12.5 fL LAB HEMATOLOGY METHOD 11/01/2025 7:00 PM [facility] nRBC 0.0 <=0.0 per 100 WBCs LAB HEMATOLOGY METHOD 11/01/2025 7:00 PM [facility] Differential Type Automated LAB HEMATOLOGY METHOD 11/01/2025 7:00 PM [facility] Neutrophils % 65 % LAB HEMATOLOGY METHOD 11/01/2025 7:00 PM [facility] Lymphocytes % 19 % LAB HEMATOLOGY METHOD 11/01/2025 7:00 PM [facility] Monocytes % 8 % LAB HEMATOLOGY METHOD 11/01/2025 7:00 PM [facility] Eosinophils % 8 % LAB HEMATOLOGY METHOD 11/01/2025 7:00 PM [facility] Basophils % 0 % LAB HEMATOLOGY METHOD 11/01/2025 7:00 PM EST [facility] Immature Granulocytes % 0 % LAB HEMATOLOGY METHOD 11/01/2025 7:00 PM EST [facility] Neutrophils Absolute 6.03 1.60 - 6.10 10*3/uL LAB HEMATOLOGY METHOD 11/01/2025 7:00 PM EST [facility] Lymphocytes Absolute 1.83 1.20 - 3.90 10*3/uL LAB HEMATOLOGY METHOD 11/01/2025 7:00 PM EST [facility] Monocytes Absolute 0.75 0.30 - 0.90 10*3/uL LAB HEMATOLOGY METHOD 11/01/2025 7:00 PM EST [facility] Eosinophils Absolute 0.75(H) 0.00 - 0.50 10*3/uL LAB HEMATOLOGY METHOD 11/01/2025 7:00 PM EST [facility] Basophils Absolute 0.04 0.00 - 0.10 10*3/uL LAB HEMATOLOGY METHOD 11/01/2025 7:00 PM EST [facility] Immature Granulocytes Absolute 0.03 0.00 - 0.06 10*3/uL LAB HEMATOLOGY METHOD 11/01/2025 7:00 PM EST [facility] Blood Venous blood specimen / Unknown Venipuncture / Unknown 11/01/2025 1:03 PM EST 11/01/2025 1:03 PM EST Narrative [facility] - 11/01/2025 7:00 PM EST Therapeutic decision making should be based on absolute values, rather than percentages. us Rodolfo Rhoades MD LAB BLOOD ORDERABLES Final Res ult [facility] [address] [place] [address] * Thyroid Stimulating Hormone, Plasma (11/01/2025 1:03 PM EST) Thyroid Stimulating Hormone, Plasma 1.31 0.40 - 4.20 uIU/mL 11/01/2025 7:25 PM EST [facility] Blood Venous blood specimen / Unknown Venipuncture / Unknown 11/01/2025 1:03 PM EST 11/01/2025 1:03 PM EST Narrative [facility] - 11/01/2025 7:25 PM EST Trimester Specific Ranges TSH ( IU/mL) 1st Trimester 0.1 - 3.0 2nd Trimester 0.19 - 4.06 3rd Trimester 0.3 - 3.7 Rodolfo Rhoades MD LAB BLOOD ORDERABLES Final Res ult Performing Organization Address [facility] Co de Phone Number [facility] [address] [place] [address] * Free T4, Plasma (11/01/2025 1:03 PM EST) Free T4, Plasma 1.3 0.8 - 1.7 ng/dL 11/01/2025 7:25 PM EST [facility] Blood Venous blood specimen / Unknown Venipuncture / Unknown 11/01/2025 1:03 PM EST 11/01/2025 1:03 PM EST Narrative [facility] - 11/01/2025 7:25 PM EST Free T4 Trimester Specific Ranges 1st Trimester 0.9 - 1.50 ng/dL 2nd Trimester 0.7 - 1.40 ng/dL 3rd Trimester 0.7 - 1.24 ng/dL Rodolfo Rhoades MD LAB BLOOD ORDERABLES Final Res ult Performing Organization Address [facility] de Phone Number [facility] [address] [place] [address] * Iron, Plasma (11/01/2025 1:03 PM EST) Only the most recent of2 resultswithin the time period is included. Iron, Plasma 79 30 - 160 ug/dL 11/01/2025 7:25 PM EST [facility] Blood Venous blood specimen / Unknown Venipuncture / Unknown 11/01/2025 1:03 PM EST 11/01/2025 1:03 PM EST Rodolfo Rhoades MD LAB BLOOD ORDERABLES Final Res ult Performing Organization Address City/[facility]/ZIP Co de Phone Number [facility] [address] [place] [address] * (ABNORMAL) Ferritin, Serum (11/01/2025 1:03 PM EST) Only the most recent of2 resultswithin the time period is included. Ferritin, Serum 331(H) 13 - 150 ng/mL 11/01/2025 7:21 PM EST [facility] Blood Venous blood specimen / Unknown Venipuncture / Unknown 11/01/2025 1:03 PM EST 11/01/2025 1:03 PM EST us Rodolfo Rhoades MD LAB BLOOD ORDERABLES Final Res ult [facility] [address] [place] [address] * (ABNORMAL) Comprehensive Metabolic Panel, Plasma (11/01/2025 1:03 PM EST) Only the most recent of16 resultswithin the time period is included. Glucose, Plasma 69(L) 74 - 99 mg/dL 11/01/2025 7:25 PM EST [facility] BUN, Plasma 6(L) 7 - 21 mg/dL 11/01/2025 7:25 PM EST [facility] Creatinine, Plasma 0.64 0.60 - 1.10 mg/dL 11/01/2025 7:25 PM EST [facility] BUN/Creatinine Ratio 9 11/01/2025 7:25 PM EST [facility] Sodium, Plasma 136 136 - 145 mmol/L 11/01/2025 7:25 PM EST [facility] Potassium, Plasma 3.7 3.6 - 4.9 mmol/L 11/01/2025 7:25 PM EST [facility] Chloride, Plasma 99 97 - 107 mmol/L 11/01/2025 7:25 PM EST [facility] CO2, Plasma 27 22 - 29 mmol/L 11/01/2025 7:25 PM EST [facility] Anion Gap 10 6 - 16 mmol/L 11/01/2025 7:25 PM EST [facility] Total Calcium, Plasma 10.1 8.9 - 10.2 mg/dL 11/01/2025 7:25 PM EST [facility] Total Protein 7.8 6.3 - 7.9 g/dL 11/01/2025 7:25 PM EST [facility] Albumin, Plasma 3.9 3.5 - 5.2 g/dL 11/01/2025 7:25 PM EST [facility] AST, Plasma 102(H) 10 - 35 U/L 11/01/2025 7:25 PM EST [facility] ALT, Plasma 92(H) 10 - 35 U/L 11/01/2025 7:25 PM EST [facility] Alkaline Phosphatase, Plasma 146(H) 35 - 104 U/L 11/01/2025 7:25 PM EST [facility] Total Bilirubin, Plasma 0.5 0.2 - 1.1 mg/dL 11/01/2025 7:25 PM EST [facility] eGFRcr 109.2 mL/min/1.7 3m*2 11/01/2025 7:25 PM EST [facility] Comment:Reported eGFRcr in m L/min/1.73m2 is based the CKD-EPI 2020 equation that does not use a race coefficient. Blood Venous blood specimen / Unknown Venipuncture / Unknown 11/01/2025 1:03 PM EST 11/01/2025 1:03 PM EST us Rodolfo Rhaodes MD LAB BLOOD ORDERABLES Final Res ult [facility] [address] [id number] * POCT SARS-CoV-2 COVID-19 Influenza A,B (11/01/2025 12:36 PM EST) POCT Influenza A PCR Not Detected Not Detected POCT Influenza B PCR Not Detected Not Detected POCT COVID 19 PCR Not Detected Not Detected POCT COVID/Flu A,B Kit Lot [id number] POCT COVID/FLU A,B Kit Expiration 01/27/2027 Nasopharyngeal Swab Nasopharyngeal structure / Unknown 11/01/2025 12:36 PM EST us Rodolfo Rhoades MD POINT OF CARE TEST ENTER/EDIT ORDERABLES Final Result * POCT Strep A PCR (11/01/2025 12:34 PM EST) Pathologist [facility] POCT Strep A PCR Not Detected Not Detected Kit Lot Number [id number] Kit Expiration Date 03/29/2027 Swab Structure of anterior region of neck / Unknown 11/01/2025 12:34 PM EST Rodolfo Rhoades MD POINT OF CARE TEST ENTER/EDIT ORDERABLES Final Result * Transfuse RBC (11/01/2025 10:00 AM EST) Tammy Caban MD BLOOD TRANSFUSION ORDERABLES E dited Result - Final * Vitamin B12, Serum (09/15/2025 2:12 PM EDT) [facility] Vitamin B12, Serum 531 210 - 1,033 pg/mL 09/15/2025 7:49 PM EDT [facility] Blood Venous blood specimen / Unknown Venipuncture / Unknown 09/15/2025 2:12 PM EDT 09/15/2025 2:12 PM EDT Rodolfo Rhoades MD LAB BLOOD ORDERABLES Final Res ult [facility] [address] [place] [address] * Type and screen (09/06/2025 10:04 AM EDT) [facility] ABO/Rh O Negative 09/06/2025 10:30 AM EDT BLOOD BANK Antibody Screen Negative 09/06/2025 10:30 AM EDT BLOOD BANK Specimen Expiration 09/09/2025 23:59 09/06/2025 10:30 AM EDT BLOOD BANK Blood Venous blood specimen / Unknown Venipuncture / Unknown 09/06/2025 10:04 AM EDT 09/06/2025 10:30 AM EDT Tammy Caban MD LAB BLOOD BANK TEST ORDERABLES Final Result BLOOD BANK [address] [place] [address], [place] * Prepare Leukocyte Reduced RBC: 1 Units, Leukocyte reduced (CMV reduced risk) (09/06/2025 9:11 AM EDT) Product Code [id number] BLOO D BANK Dispense Status Transfused BLOOD BANK Blood Expiration Date [id number] BLOOD BANK Unit Number [id number] B LOOD BANK Product Blood Type 9500 BLOOD BANK Blood Type O- BLOOD BANK Crossmatch Compatible BLOOD BANK Other Tammy Caban MD BLOOD BANK PRODUCT ORDERABLES Final Result BLOOD BANK [address] [place] [address], * POCT glucose meter (09/06/2025 6:48 AM EDT) Only the most recent of11 resultswithin the time period is included. [facility] POCT Glucose 91 74 - [...] 09/06/2025 7:23 AM EDT [facility] Mine Development Engineer ID Rappa, Kamryn 09/06/2025 7:23 AM EDT HEALTHCARE LAB Device ID [id number] 09/06/2025 7:23 AM EDT [facility] Specimen Type POC Capillary 09/06/2025 7:23 AM EDT [facility] Blood Capillary blood specimen / Unknown 09/06/2025 6:48 AM EDT 09/06/2025 7:23 AM EDT Tammy Caban MD LAB POINT OF CARE TE ST DOCKED DEVICE UNSOLICITED RESULTS Final Result [facility] [address] [place] [address] * Phosphorus, Plasma (09/06/2025 3:37 AM EDT) Only the most recent of13 resultswithin the time period is included. Phosphorus, Plasma 4.0 2.5 - 4.5 mg/dL 09/06/2025 4:51 AM EDT [facility] Blood Venous blood specimen / Unknown Venipuncture / Unknown 09/06/2025 3:37 AM EDT 09/06/2025 3:59 AM EDT Emma Lehman MD LAB BLOOD ORDERABLES Final Resu lt Performing Organization Address [facility] de Phone Number [facility] [address] [place] [address] * Magnesium, Plasma (09/06/2025 3:37 AM EDT) Only the most recent of13 resultswithin the time period is included. Magnesium, Plasma 1.9 1.9 - 2.4 mg/dL 09/06/2025 4:51 AM EDT [facility]ALTHCARE LAB Blood Venous blood specimen / Unknown Venipuncture / Unknown 09/06/2025 3:37 AM EDT 09/06/2025 3:59 AM EDT us Emma Lehman MD LAB BLOOD ORDERABLES Final Resu lt Performing Organization Address [facility] de Phone Number [facility] [address] [place] [address] * XR Shoulder Right 2+ Views (08/30/2025 [...] Cory Jimenez MD on 08/30/2025 4:56 PM Annamarie Obando MD IMG XR PROCEDURES Final Resu lt * ECG Adult (08/28/2025 5:11 PM EDT) Only the most recent of2 resultswithin the time period is included. EKG DIAGNOSIS CLASS Borderline Abnormal MUSE ECG Ventricular Rate 82 BPM MUSE ECG Atrial Rate 82 BPM MUSE ECG TN Interval 132 ms MUSE ECG QRSD Interval 76 ms MUSE ECG QT Interval 362 ms MUSE ECG QTC Interval 422 ms MUSE ECG P [place] 29 degrees MUSE ECG R [place] 7 degrees MUSE ECG T Wave [place] 37 degrees MUSE ECG Diagnosis Normal sinus rhythm MUSE ECG Diagnosis Moderate voltage criteria for LVH, may be normal variant ( R in aVL , [place] product ) MUSE ECG Diagnosis Borderline ECG MUSE ECG Diagnosis MUSE ECG Diagnosis Confirmed by Michel Brandt ([id number]) on 08/29/2025 11:23:49 AM MUSE ECG 08/28/2025 5:11 PM EDT 08/29/2025 11:23 AM EDT Annamarie Obando MD ECG ORDERABLES Final Result MUSE ECG * Signal Recognition Particle (SRP) Antibody (SO) (08/26/2025 3:26 AM EDT) Signal Recognition Particle (SRP) Ab Negative Negative 09/16/2025 6:08 PM EDT [facility] ([place]) Blood Venous blood specimen / Unknown Venipuncture / Unknown 08/26/2025 3:26 AM EDT 08/26/2025 3:35 AM EDT Narrative [facility] LABORATORY ([facility]) - 09/16/2025 6:08 PM EDT This test was developed and its performance characteristics determined by [facility]. It has not been cleared or approved by the Food and Drug Administration. Performed by: 01 [facility] [address] [place] [phone] Kash Garcia MD us Stacie Brown MD LAB REF LAB BLOOD AND FLUI D ORD Final Result [facility] ([facility]) [address] [place] [id number] * (ABNORMAL) Myositis Antibody Panel (SO) (08/26/2025 3:26 AM EDT) Foster/FILM COLOR TESTER (PAPA) Ab, IgG 3 0 - 19 Units 09/02/2025 2:19 PM EDT [facility] ([facility]) SSA-52 (RO52) (PAPA) Antibody, IgG 130(H) 0 - 40 AU/mL 09/02/2025 2:19 PM EDT [facility] ([facility]) Mulu-1 (Histidyl-tRNA Synthetase) Ab, IgG 3 0 - 40 AU/mL 09/02/2025 2:19 PM EDT [facility] ([facility]) PM/Scl 100 Antibody, IgG Negative Negative 09/02/2025 2:19 PM EDT [facility] ([facility]) TN-2 (NUCLEAR HELICASE PROTEIN) ANTIBODY Negative Negative 09/02/2025 2:19 PM EDT [facility] ([facility]) PL-7 (THREONYL-TRNA SYNTHETASE) ANTIBODY Negative Negative 09/02/2025 2:19 PM EDT [facility] ([facility]) PL-12 (ALANYL-TRNA SYNTHETASE) ANTIBODY Negative Negative 09/02/2025 2:19 PM EDT [facility] ([facility]) P155/140 ANTIBODY Negative Negative 09/02/2025 2:19 PM EDT [facility] ([facility]) EJ (GLYCYL-TRNA SYNTHETASE) ANTIBODY Negative Negative 09/02/2025 2:19 PM EDT [facility] ([facility]) KU ANTIBODY Negative Negative 09/02/2025 2:19 PM EDT [facility] ([facility]) SRP (SIGNAL RECOGNITION PARTICLE) AB Negative Negative 09/02/2025 2:19 PM EDT [facility] ([facility]) OJ (ISOLEUCYL-TRNA SYNTHETASE) ANTIBODY Negative Negative 09/02/2025 2:19 PM EDT [facility] ([facility]) SSA-60 (RO60) (PAPA) Antibody, IgG 1 0 - 40 AU/mL 09/02/2025 2:19 PM EDT [facility] ([facility]) Fibrillarin (U3 FILM COLOR TESTER) Ab, IgG Negative Negative 09/02/2025 2:19 PM EDT [facility] ([facility]) MYOSITIS PANEL INTERPRETIVE DATA See Note 09/02/2025 2:19 PM EDT [facility] ([facility]) SAE1 (SUMO ACTIVATING ENZYME) AB Negative Negative 09/02/2025 2:19 PM EDT [facility] ([facility]) MDA5 (CADM-140) AB Negative Negative 09/02/2025 2:19 PM EDT [facility] ([facility]) NXP2 (NUCLEAR MATRIX PROTEIN-2) AB Negative Negative 09/02/2025 2:19 PM EDT [facility] ([facility]) TIF-1 GAMMA (155 KDA) AB Negative Negative 09/02/2025 2:19 PM EDT [facility] ([facility]) Anti Nuc Ab Screen <1:80 <1:80 09/02/2025 2:19 PM EDT [facility] ([facility]) BINH INTERPRETIVE COMMENT See Note 09/02/2025 2:19 PM EDT [facility] ([facility]) Smith (tyrosyl-tRNA synthetase) Ab Negative Negative 09/02/2025 2:19 PM EDT [facility] ([facility]) Ks (asparaginyl-tRN A synthetase) Ab Negative Negative 09/02/2025 2:19 PM EDT [facility] ([facility]) Zo (phenylalanyl-tR NA synthetase) Ab Negative Negative 09/02/2025 2:19 PM EDT [facility] HMGCR Antibody Screen Negative Negative 09/02/2025 2:19 PM EDT [facility] ([facility]) Blood Venous blood specimen / Unknown Venipuncture / Unknown 08/26/2025 3:26 AM EDT 08/26/2025 3:35 AM EDT Narrative [facility] ([facility]) - 09/02/2025 2:19 PM EDT INTERPRETIVE INFORMATION: [...] . . . . . . X Foster/FILM COLOR TESTER (PAPA) Ab, IgG . . . . [...] . . . . X Fibrillarin (U3 FILM COLOR TESTER) Ab, IgG . . . . . [...] Ab . . . . X HMGCR (8-Vchhnnh-1-Methylglutaryl Coenzyme A Reductase) . . . . . . . . X This test was developed and its performance characteristics determined by [facility] [employer]. It has not been cleared or approved [...] (interstitial lung disease), Raynaud phenomenon, arthritis, and aircraft mechanic electrical and radio's hands (implicated in antisynthetase syndrome). INTERPRETIVE INFORMATION: Foster/FILM COLOR TESTER (PAPA) Antibody, IgG 19 Units or Less ............. Negative 20 to 39 Units ............... Weak Positive 40 to 80 Units ............... Moderate Positive 81 Units or greater .......... Strong Positive Foster/FILM COLOR TESTER antibodies are frequently seen in patients with mixed connective tissue disease (MCTD) and are also associated with other systemic autoimmune rheumatic diseases (SARDs) such as systemic lupus erythematosus (SLE), systemic sclerosis, and myositis. Antibodies targeting the Foster/FILM COLOR TESTER antigenic complex also recognize Foster antigens, therefore, [...] developed and its performance characteristics determined by [employer]. It has not been cleared or approved [...] Greater .......... Positive Interpretive Information: Fibrillarin (U3 FILM COLOR TESTER) Antibody, IgG The presence of fibrillarin (U3-FILM COLOR TESTER) IgG antibodies in association with an BINH [...] a multi-ethnic cohort of SSc patients (n=98), U3-FILM COLOR TESTER antibodies detected by immunoblot had an agreement of 98.9 percent with the gold standard immunoprecipitation (IP) assay. Approximately 71 percent (5/7) of the borderline U3-FILM COLOR TESTER results with BINH nucleolar pattern in this cohort were IP negative. This test was developed and its performance characteristics determined by [facility]. It has not been cleared or approved [...] centromere, homogeneous, nuclear dots, nucleolar, or speckled. BIHN (cytoplasmic reactivity) positive patterns reported include reticular/AMA, [...] further testing will be performed. Performed By: [facility] [address] [place] [address] Sap Security Architect: Esvin Pat MD, PhD CLIA Number: [id number] Stacie Brown MD LAB BLOOD ORDERABLES Final Result Performing Organization Address [facility] de Phone Number [employer] [place] [address] * (ABNORMAL) Cytoplasmic Pattern (08/26/2025 3:26 AM EDT) Cytoplasm Pattern AMA(A) 08/31/2025 11:48 PM EDT [facility] ([facility]) Cytoplasmic Titer 1:80(A) 08/31/2025 11:48 PM EDT [facility] ([facility]) Blood Venous blood specimen / Unknown Venipuncture / Unknown 08/26/2025 3:26 AM EDT 08/26/2025 3:35 AM EDT Narrative [facility] ([facility]) - 08/31/2025 11:48 PM EDT Performed By: [facility] [address] [place] [address] Sap Security Architect: Esvin Pat MD, PhD CLIA Number: [id number] Stacie Brown MD LAB BLOOD ORDERABLES Final Result Performing Organization Address [facility] Co de Phone Number [employer]) [address] [place] [address] * (ABNORMAL) Anti-smooth muscle antibody, IgG (08/26/2025 3:26 AM EDT) Smooth Muscle Ab, IgG Titer 1:160(H) <1:20 08/28/2025 10:40 PM EDT [facility] ([place]) Blood Venous blood specimen / Unknown Venipuncture / Unknown 08/26/2025 3:26 AM EDT 08/26/2025 3:35 AM EDT Narrative [facility]) - 08/28/2025 10:40 PM EDT INTERPRETIVE INFORMATION: Smooth Muscle Ab, IgG Titer Less than 1:20 ........ Negative - No antibody detected. 1:20 - 1:80 .......... Weak Positive - Suggest repeat in two to three weeks with fresh specimen. 1:160 or greater ...... Positive - Suggestive of autoimmune hepatitis or chronic active hepatitis. Performed By: [facility] [address] [place] [address] Sap Security Architect: Esvin Pat MD, PhD CLIA Number: [id number] us Stacie Brown MD LAB BLOOD ORDERABLES Final Result [facility] [address] [place] [address] * Human Immunodeficiency Virus (HIV-1) Quantitative PCR (08/12/2025 5:12 PM EDT) Pathologist [facility] Human Immunodeficiency Virus (HIV-1) Quant Interpretation Not Detected Not Detected 08/15/2025 9:44 PM EDT [facility] Blood Venous blood specimen / Unknown Venipuncture / Unknown 08/12/2025 5:12 PM EDT 08/12/2025 5:17 PM EDT Narrative [facility] - 08/15/2025 9:44 PM EDT [...] Rosa Maria l Result Performing Organization Address [facility] de Phone Number [facility] [address] [place] [address] * Hepatitis panel, acute (08/09/2025 3:57 AM EDT) Pathologist [facility] Hepatitis B Surf Antigen Negative Negative 08/09/2025 5:37 AM EDT [facility] Hepatitis C Antibody Negative Negative 08/09/2025 5:37 AM EDT [facility] Hepatitis A Antibody IgM Negative Negative 08/09/2025 5:37 AM EDT [facility] Hepatitis B Core Antibody IgM Negative Negative 08/09/2025 5:37 AM EDT [facility] Blood Venous blood specimen / Unknown Venipuncture / Unknown 08/09/2025 3:57 AM EDT 08/09/2025 4:29 AM EDT Tammy Woody MD LAB BLOOD ORDERABLES Final R esult Performing Organization Address [facility] Co de Phone Number [facility] [address] [place] [address] * Hemoglobin A1c (08/07/2025 5:05 AM EDT) Pathologist [facility] External Hemoglobin A1c 5.5 3.8 - 5.6 % [facility] Comment: GLYCOSYLATED HEMOGLOBIN (A1C) EXPECTED RANGES: <6.5 NON-DIABETIC 6.5-7.5 EXCELLENT 7.5-8.5 GOOD >8.5 POOR 08/07/2025 5:05 AM EDT 08/07/2025 5:38 AM EDT us Generic [place] Provider LAB BLOOD ORDERABLES Final Result [facility] * Colonoscopy External Result (02/24/2025) Anatomical [...] updated to appropriate status: Yes Care Teams Hourly Shift Manager Relationship Specialty Start Date End Date Rodolfo Rhoades MD [address] [place] [phone] PCP - General Family Medicine 02/02/25 Keyonna Goff Community Health Worker 11/01/25
--- OUTSIDE RECORDS SUMMARY | 2025-11-24 16:22 | XMS_ITS | Encounter Summary ---
Author Organization Healthcare Address [address] [id number] Care Team Providers Care Support Services Specialist Name Role Phone Rodolfo Rhoades MD Primary Care Provider [phone] Keyonna Goff Unavailable Unavailable Reason for Visit * Reason Comments [facility] Encounter Details Date Type Department Care Team (Late st Contact Info) Description 11/01/2025 Patient Outreach [facility] [address] [facility] [address] [place] [address] Keyonna Goff [facility] Social History [...] in a snf (including now)? No 08/09/2025 [facility] Utilities Answer Date Recorded In the [...] Question Answer Entry Date Author Outreach Reason Program Enrollment/Intake 11/01/2025 3:59 PM EST [place] Keyonna Delgado Pop [facility] Reason For Encounter [facility] 11/01/2025 3:59 PM EST Keyonna Goff documented in this encounter Miscellaneous Notes * Progress Notes - Keyonna Goff - 11/01/2025 2:26 PM EST CHW Initial Encounter Note 11/01/2025 Urgent or Non-Urgent Referral: Non Urgent Trial Mgr: No Preferred Language: Kosovan Trial Mgr ID: N/A Outreach 1: 11/01/25 Outreach 2: [...] Visit [facility] & [address] [address] Rodolfo Rhoades MD [address] [place] [address] documented as of this encounter Visit Diagnoses [...] documented as of this encounter Care Teams Support Services Specialist Relationship Specialty Start Date End Date Rodolfo Rhoades MD [address] [place] [phone] PCP - General Family Medicine 02/02/25 Keyonna Goff Community Health Worker 11/01/25 documented as of this encounter
--- OUTSIDE RECORDS SUMMARY | 2025-11-24 16:22 | XMS_ITS | Encounter Summary ---
Author Organization Healthcare Address [address] [id number] Care Team Providers Care Pre Wave Assembler Name Role Phone Georgette Moore APRN Primary Care Provider [phone] Veronica Goodwin Unavailable Unavailable Margaret Ro Unavailable Unavailable Rodolfo Rhoades MD Primary Care Provider [phone] Marianne Bolaños Unavailable Unavailable Ariana Bagley Unavailable Unavailable So Caicedo LPN Unavailable Unavailable Keyonna Goff Unavailable Unavailable Encounter Details Date Type Department Care Team (Late st Contact Info) Description 07/21/2024 Outside Procedure External Location [address] [place] [phone] Provider, Swapnil Monique Social History Tobacco Use [...] In the past 12 months has e ezTaxi, gas, oil, or water [employer] threatened to shut off services in your [...] Description 12/08/2025 11:20 AM EST Office Visit [facility] [address] [place] [address] Rodolfo Rhoades MD [address] [place] [address] documented as of this encounter Procedures Procedure Name Priority Date/Time Associated Diagnosis Comments XR CHEST 1 VIEW 07/21/2024 4:03 PM EDT documented in this encounter Results * XR Chest 1 View (07/21/2024 4:03 PM EDT) Anatomical Region Laterality Modality Chest Digital Radiogra phy 07/21/2024 4:03 PM EDT Narrative 07/21/2024 4:31 PM EDT [address] [address] Name: VERONICA ALVAREZ Exam Date: 07/21/2024 : 1975 Age 48 years Gender: F Physician: PAOLA PIZARRO Facility: [facility] Facility HSV: Outpatient Exam: CHEST [...] you for referring VERONICA ALVAREZ to [facility]. Legally authenticated by NATALIE CULVER 2024-07-21 16:12:48 Procedure Note Provider, Swapnil [place] - 07/21/2024 [place] [address] Name: VERONICA ALVAREZ Exam Date: 07/21/2024 : 1975 Age 48 years Gender: F Physician: PAOLA PIZARRO Facility: [facility] Facility HSV: Outpatient Exam: CHEST [...] you for referring VERONICA ALVAREZ to [facility]. Legally authenticated by NATALIE CULVER 2024-07-21 16:12:48 Generic [place] Provider IMG XR PROCEDURES Fi nal Result [...] documented as of this encounter Care Teams Pre Wave Assembler Relationship Specialty Start Date End Date Georgette Moore APRN [address] [place] [address] PCP - General 04/12/21 02/01/25 Rodolfo Rhoades MD [address] [place] [phone] PCP - General Family Medicine 02/02/25 [place] [address] TCM Nurse 07/25/24 08/25/24 Margaret Ro Community Health Worker 07/27/24 4 [employer]ages[employer]arianne Clinical Chop Saw Operator 07/14/25 07/28/25 Ariana Bagley Community Health Worker 07/14/25 07/14/25 So Caicedo LPN [employer] [place] [address] None TCM Nurse 09/07/25 10/07/25 Keyonna Goff Community Health Worker 11/01/25 documented as of this encounter
--- OUTSIDE RECORDS SUMMARY | 2025-11-24 16:22 | XMS_ITS | Encounter Summary ---
Author Organization Healthcare Address [address] [id number] Care Team Providers Care Quality Control Head Name Role Phone Rodolfo Rhoades MD Primary Care Provider So Caicedo LPN Unavailable Unavailable Keyonna Goff Unavailable Unavailable Encounter Details Date Type Department Care Team (Late st Contact Info) Description 08/08/2025 Outside Procedure External Location [address] [place] [phone] Provider, Swapnil [place] Social History Tobacco Use Types Packs/Day Years [...] any time in the past 12 m [facility], were you homeless or living in a residential (including now)? No 08/09/2025 [facility] [...] 12/08/2025 11:20 AM EST Office Visit [facility] [address] [place] [address] Rodolfo Rhoades MD [address] [place] [address] documented as of this encounter Procedures Procedure Name Priority Date/Time Associated Diagnosis Comments CT ABDOMEN PELVIS W IV CONTRAST 08/08/2025 10:24 AM EDT documented in this encounter Results * CT Abdomen Pelvis w IV Contrast (08/08/2025 10:24 AM EDT) Anatomical Region Laterality Modality Abdomen, Pelvis Computed Tomogra phy 08/08/2025 10:2 4 AM EDT Narrative 08/08/2025 2:59 PM EDT [address] [address] Name: HAILEY ALVAREZ Exam Date: 08/08/2025 : 1975 Age 49 years Gender: F Physician: LOBO LOWERY Facility: [facility] Facility HSV: Inpatient Exam: CT ABD PEL [...] Thank you for referring HAILEY ALVAREZ to [facility]. Legally authenticated by AVI Colin 2025-08-08 14:56:42 Procedure Note Provider, [facility] - 08/08/2025 [place] [address] Name: HAILEY ALVAREZ Exam Date: 08/08/2025 : 1975 Age 49 years Gender: F Physician: LOBO LOWERY Facility: [facility] Facility HSV: Inpatient Exam: CT ABD PEL W EXAMINATION: CT ABDOMEN PELVIS WITH IV CONTRAST HISTORY: fall, inability to move left leg, severe rhabdomyolysis, r/ofx. COMPARISON: None. TECHNIQUE: Contiguous axial images through the abdomen and pelvis were acquired following the administration of intravenous contrast.Reconstructed images in the coronal and sagittal planes were reviewed. CT [facility] use dose modulation, iterative [...] Thank you for referring HAILEY ALVAREZ to [facility]. Legally authenticated by AVI Colin 2025-08-08 14:56:42 us Generic [place] Provider IMG CT PROCEDURES Fi nal Result [...] documented as of this encounter Care Teams Quality Control Head Relationship Specialty Start Date End Date Rodolfo Rhoades MD [address] [place] [phone] PCP - General Family Medicine 02/02/25 So Caicedo LPN [employer] [address] None TCM Nurse 09/07/25 10/07/25 Keyonna Goff Community Health Worker 11/01/25 documented as of this encounter
--- OUTSIDE RECORDS SUMMARY | 2025-11-24 16:22 | XMS_ITS | Encounter Summary ---
Author Organization Healthcare Address [facility] [place] [address] Care Team Providers Care Caption Writer Name Role Phone Rodolfo Rhoades MD Primary Care Provider [phone] Keyonna Goff Unavailable Unavailable Encounter Details Date Type Department Care Team (Late st Contact Info) Description 10/08/2025 Results Follow-Up [facility] [address] [place] [address] Rodolfo Rhoades MD [address] [place] [address] Social History Tobacco Use Types [...] any time in the past 12 m [facility], were you homeless or living in a halfway (including now)? No 08/09/2025 [facility] Utilities Answer Date Recorded In [...] Description 12/08/2025 11:20 AM EST Office Visit [facility] [address] [place] [address] Rodolfo Rhoades MD [address] [place] [address] documented as of this encounter [...] documented as of this encounter Care Teams Caption Writer Relationship Specialty Start Date End Date Rodolfo Rhoades MD [address] [place] [address] PCP - General Family Medicine 02/02/25 Keyonna Goff Community Health Worker 11/01/25 documented as of this encounter
--- OUTSIDE RECORDS SUMMARY | 2025-11-24 16:22 | XMS_ITS | Encounter Summary ---
Author Organization Healthcare Address [address] [place] [address] Care Team Providers Care Engine Setter Name Role Phone Rodolfo Rhoades MD Primary Care Provider [phone] Keyonna Goff Unavailable Unavailable Encounter Details Date Type Department Care Team (Latest Contact Info) Description 11/01/2025 Travel Social History Tobacco Use Types Packs/Day Years Used Date Smoking Tobacco: Some Days Cigarettes 12 23 Started: 11/30/2001 Passive Smoke Exposure: Current Smokeless [...] in a usp (including now)? No 08/09/2025 [facility] [...] as of this encounter Functional Status * Communicable Disease Screening Question Answer Date of Assessment Author Have you been in contact with someone who was sick? No / Unsure 11/01/2025 10:53 AM EST Ebony, Shikha L Do you have any of the following new or worsening symptoms? Sore throat;Muscle pain;Severe headache 11/01/2025 10:53 AM EST Ebony, Shikha L * Travel Screening Question Answer Date of Assessment Author Have you traveled internatio susy or domestically in the last month? No 11/01/2025 10:53 AM EST Ninfa ence, Shikha L documented as of this encounter Mental Status * Communicable Disease Screening Question Answer Entry Date Author Have you been in contact with someone who was sick? No / Unsure 11/01/2025 10:53 AM EST Ebony, Shikha L Do you have any of the following new or worsening symptoms? Sore throat;Muscle pain;Severe headache 11/01/2025 10:53 AM EST Ebony, Shikha L * Travel Screening Question Answer Entry Date Author Have you traveled internatio susy or domestically in the last month? No 11/01/2025 10:53 AM EST Ninfa kavyae Shikha L documented in this encounter Plan of Treatment Upcoming Encounters Date Type Department Care Team (Late st Contact Info) Description 12/08/2025 11:20 AM EST Office Visit [facility] [address] [place] [address] Rodolfo Rhoades MD [address] [place] [address] documented as of this encounter [...] documented as of this encounter Care Teams Engine Setter Relationship Specialty Start Date End Date Rodolfo Rhoades MD [address] [place] [address] PCP - General Family Medicine 02/02/25 Keyonna Goff Community Health Worker 11/01/25 documented as of this encounter
--- OUTSIDE RECORDS SUMMARY | 2025-11-24 16:22 | XMS_ITS | Encounter Summary ---
Author Organization Healthcare Address [facility] [place] [address] Care Team Providers Care Sewer Hand Name Role Phone Rodolfo Rhoades MD Primary Care Provider [phone] So Caicedo LPN Unavailable Unavailable Encounter Details Date Type Department Care Team (Late st Contact Info) Description 09/08/2025 Telephone [facility] [address] [place] [address] Rodolfo Rhoades MD [address] [place] [address] Social History Tobacco Use Types [...] in the past 12 m [facility], were you homeless or living in a mcc (including now)? No 08/09/2025 [facility] Utilities Answer Date Recorded In [...] beoverbooked with him instead. Best contact number: [phone] (mobile) Optimal time of day to reach [...] will receive notification of the communication/outcome via [employer]. documented in this encounter Plan of Treatment Upcoming Encounters Date Type Department Care Team (Late st Contact Info) Description 12/08/2025 11:20 AM EST Office Visit [facility] [address] [place] [address] Rodolfo Rhoades MD [address] [place] [address] documented as of this encounter [...] documented as of this encounter Care Teams Sewer Hand Relationship Specialty Start Date End Date Rodolfo Rhoades MD [address] [place] [address] PCP - General Family Medicine 02/02/25 So Caicedo LPN [employer] [place] [address] None TCM Nurse 09/07/25 10/07/25 documented as of this encounter
--- OUTSIDE RECORDS SUMMARY | 2025-11-24 16:22 | XMS_ITS | Encounter Summary ---
Author Organization Healthcare Address [address] [place] [address] Care Team Providers Care Ground Wood Supervisor Name Role Phone Rodolfo Rhoades MD Primary Care Provider [phone] So Caicedo LPN Unavailable Unavailable Encounter Details [...] in a usp (including now)? No 08/09/2025 [facility] Utilities Answer Date Recorded In [...] Assessment Author Have you been in contact wit h someone who was sick? No / Unsure 10/05/2025 11:04 AM Bol[place]ar [place] Do you have any of the following new or worsening symptoms? None of these 10/05/2025 11:04 AM [place]ar [place] * Travel Screening Question Answer Date of Assessment Author Have you traveled internatio susy or domestically in the last month? No 10/05/2025 11:04 AM EST Bolivar Long R documented as of this encounter Mental Status * Communicable Disease Screening Question Answer Entry Date Author Have you been in contact wit h someone who was sick? No / Unsure 10/05/2025 11:04 AM Bolivar Montana R Do you have any of the following new or worsening symptoms? None of these 10/05/2025 11:04 AM [place]ar [place] * Travel Screening Question Answer Entry Date Author Have you traveled internatio susy or domestically in the last month? No 10/05/2025 11:04 AM EST Bolivar Long R documented in this encounter Plan of Treatment Upcoming Encounters Date Type Department Care Team (Late st Contact Info) Description 12/08/2025 11:20 AM EST Office Visit [facility] [address] [place] [address] Rodolfo Rhoades MD [address] [place] [address] documented as of this encounter [...] documented as of this encounter Care Teams Ground Wood Supervisor Relationship Specialty Start Date End Date Rodolfo Rhoades MD [address] [place] [address] PCP - General Family Medicine 02/02/25 So Caicedo LPN [employer] [address] None TCM Nurse 09/07/25 10/07/25 documented as of this encounter
--- OUTSIDE RECORDS SUMMARY | 2025-11-24 16:22 | XMS_ITS | Encounter Summary ---
Author Organization [facility] Address [facility] [address] Care Team Providers Care Mobile Product Manager Name Role Phone Georgette Moore APRN Primary Care Provider [phone] Veronica Goodwin Unavailable Unavailable Margaret Ro Unavailable Unavailable Rodolfo Rhoades MD Primary Care Provider [phone] Mami Marianne Unavailable Unavailable Ariana Bagley Unavailable Unavailable So Caicedo LPN Unavailable Unavailable Keyonna Goff Unavailable Unavailable Reason for Visit * Reason Comments Med Refill Encounter Details Date Type Department Care Team (Late st Contact Info) Description 05/13/2021 Refill [facility] [address] [place] [address] Georgette Moore APRN [address] [place] [address] Social History Tobacco Use Types [...] Description 12/08/2025 11:20 AM EST Office Visit [facility] [address] [place] [address] Rodolfo Rhoades MD [address] [place] [address] documented as of this [...] as of this encounter Care Teams Mobile Product Manager Relationship Specialty Start Date End Date Georgette Moore APRN [address] [place] [address] PCP - General 04/12/21 02/01/25 Rodolfo Rhoades MD [facility] [place] [address] PCP - General Family Medicine 02/02/25 [place] [address] TCM Nurse 07/25/24 08/25/24 Margaret Ro Community Health Worker 07/27/24 4 WaMarianne glez Clinical Database Modeler 07/14/25 07/28/25 Ariana Bagley Community Health Worker 07/14/25 07/14/25 So Caicedo LPN VAL[employer] [place] [address] None TCM Nurse 09/07/25 10/07/25 Keyonna Goff Community Health Worker 11/01/25 documented as of this encounter
--- OUTSIDE RECORDS SUMMARY | 2025-11-24 16:22 | XMS_ITS | Encounter Summary ---
Author Organization Healthcare Address [facility] [place] [address] Care Team Providers Care Evaporator Operator Molasses Name Role Phone Rodolfo Rhoades MD Primary Care Provider [phone] Reason for Visit * Reason Comments Med Refill Encounter Details Date Type Department Care Team (Late st Contact Info) Description 10/11/2025 Refill [facility] [address] [place] [address] Rodolfo Rhoades MD [address] [place] [address] Low vitamin D level Social [...] in a fci (including now)? No 08/09/2025 [facility] Description 12/08/2025 11:20 AM EST Office Visit [facility] [address] [place] [address] Rod[place]fo [place] [address] documented as of this encounter [...] documented as of this encounter Care Teams Evaporator Operator Molasses Relationship Specialty Start Date End Date Rodolfo [place] [address] PCP - General Family Medicine 02/02/25 documented as of this encounter
--- OUTSIDE RECORDS SUMMARY | 2025-11-24 16:22 | XMS_ITS | Encounter Summary ---
Author Organization Healthcare Address [address] [place] [address] Care Team Providers Care Tile Edger Name Role Phone Rodolfo Rhoades MD Primary Care Provider [phone] So Caicedo LPN Unavailable Unavailable Encounter Details [...] mcc (including now)? No 08/09/2025 [facility] Utilities Answer Date Recorded In the [...] someone who was sick? No / Unsure 10/02/2025 9:35 AM Remy Louie Do you have any of the following new or worsening symptoms? None of these 10/02/2025 9:35 AM Remy oLuie * Travel Screening Question Answer Date of Assessment Author Have you traveled internatio susy or domestically in the last month? No 10/02/2025 9:35 AM EST Remy Allen documented as of this encounter Mental Status * Communicable Disease Screening Question Answer Entry Date Author Have you been in contact wit h someone who was sick? No / Unsure 10/02/2025 9:35 AM Remy Louie Do you have any of the following new or worsening symptoms? None of these 10/02/2025 9:35 AM Remy Louie * Travel Screening Question Answer Entry Date Author Have you traveled internatio susy or domestically in the last month? No 10/02/2025 9:35 AM Remy Allison documented in this encounter Plan of Treatment Upcoming Encounters Date Type Department Care Team (Late st Contact Info) Description 12/08/2025 11:20 AM EST Office Visit [facility] [address] [place] [address] Rodolfo Rhoades MD [address] [place] [address] documented as of this [...] documented as of this encounter Care Teams Tile Edger Relationship Specialty Start Date End Date Rodolfo Rhoades MD [address] [place] [address] PCP - General Family Medicine 02/02/25 So Caicedo LPN [employer] [place] [address] None TCM Nurse 09/07/25 10/07/25 documented as of this encounter
--- OUTSIDE RECORDS SUMMARY | 2025-11-24 16:22 | XMS_ITS | Encounter Summary ---
Author Organization Healthcare Address [facility] [place] [address] Care Team Providers Care Photogrammetric Tech Name Role Phone Rodolfo Rhoades MD Primary Care Provider [phone] Keyonna Goff Unavailable Unavailable Encounter Details Date Type Department Care Team (Late st Contact Info) Description 11/20/2025 Telephone [facility] [address] [place] [address] Rodolfo Rhoades MD [address] [place] [address] Social History Tobacco Use Types [...] in a fci (including now)? No 08/09/2025 [facility] Utilities Answer Date Recorded In the past 12 months has th e [employer], gas, oil, or water [employer] threatened to shut off services in your [...] encounter Miscellaneous Notes * Telephone Encounter - Melodie Jay RN - 11/20/2025 2:04 PM EST Staff from [facility] called to confirm whether pt needs CK level. State patient has paper order but it has void written on it. RN checked active orders. Advised there is an active-future order for CK ordered by Dr. Rhoades on 11/14/25. documented in this encounter Plan of Treatment Upcoming Encounters Date Type Department Care Team (Late st Contact Info) Description 12/08/2025 11:20 AM EST Office Visit [facility] [address] [place] [address] Rodolfo Rhoades MD [address] [place] [address] documented as of this encounter [...] documented as of this encounter Care Teams Photogrammetric Tech Relationship Specialty Start Date End Date Rodolfo Rhoades MD [address] [place] [address] PCP - General Family Medicine 02/02/25 Keyonna Goff Community Health Worker 11/01/25 documented as of this encounter
--- OUTSIDE RECORDS SUMMARY | 2025-11-24 16:22 | XMS_ITS | Encounter Summary ---
Author Organization Healthcare Address [facility] [place] [address] Care Team Providers Care Supervisor Plastering Name Role Phone Rodolfo Rhoades MD Primary Care Provider [phone] So Caicedo LPN Unavailable Unavailable Encounter Details Date Type Department Care Team (Late st Contact Info) Description 09/19/2025 Telephone [facility] [address] [place] [address] Rodolfo Rhoades MD [address] [place] [address] Social History Tobacco Use Types [...] in a long-term (including now)? No 08/09/2025 [facility] Utilities Answer Date Recorded In [...] is not sure about a UTC in [place] but is going to get INR tomorrow and will ask them about a UTC in [facility]. * Telephone Encounter - Mindy [...] want xray she wants order sent to [facility]. Informedpt I would send message to Dr. Rhoades and call her back. Pt voiced understanding. * Telephone Encounter - Bri Collins - 09/19/2025 10:12 AM EDT Clinical Concern/Question Reason for Call: Pt has been tired since she got home from the hospital, she is asking if that is normal. Also asking if a walker without wheels can be ordered for her in [place] ( [facility]). Best contact number: [phone] (mobile) Optimal time of day to reach caller: ANYTIME Additional comments/information from caller: None Note: Please do not reply to this message. Follow-up communication and further actions as a result of this message need to be communicated with the patient directly, if the patient is not active onMyChart. If the patient is active on MyChart, they will receive notification of the communication/outcome via [employer]. documented in this encounter Plan of Treatment Upcoming Encounters Date Type Department Care Team (Late st Contact Info) Description 12/08/2025 11:20 AM EST Office Visit [facility] [address] [place] [address] Rodolfo Rhoades MD [address] [place] [address] documented as of this [...] as of this encounter Care Teams Supervisor Plastering Relationship Specialty Start Date End Date Rodolfo Rhoades MD [address] [place] [address] PCP - General Family Medicine 02/02/25 So Caicedo LPN [employer] [place] [address] None TCM Nurse 09/07/25 10/07/25 documented as of this encounter
--- OUTSIDE RECORDS SUMMARY | 2025-11-24 16:22 | XMS_ITS | Encounter Summary ---
Author Organization Healthcare Address [address] [id number] Care Team Providers Care Learning Coach Name Role Phone Georgette Moore APRN Primary Care Provider [phone] BuddyMiltonon Unavailable Unavailable Margaret Ro Unavailable Unavailable Rodolfo Rhoades MD Primary Care Provider [phone] Marianne Bolaños Unavailable Unavailable Ariana Bagley Unavailable Unavailable So Caicedo LPN Unavailable Unavailable Keyonna Goff Unavailable Unavailable Encounter Details Date Type Department Care Team (Late st Contact Info) Description 07/22/2021 Outside Procedure External Location [address] [place] [address] Irma Masterson MD [address] [place] [address] Social History Tobacco Use Types Packs/Day [...] [facility] [address] [place] [address] Rodolfo Rhoades MD [address] [place] [address] documented as of this encounter Procedures Procedure Name Priority Date/Time Associated Diagnosis Comments CT CHEST LIMITED HISTORICAL 07/22/2021 1:04 PM EDT documented in this encounter Results * CT Chest Limited Historical (07/22/2021 1:04 PM EDT) Anatomical Region Laterality Modality Chest Computed Tomogra phy 07/22/2021 1:04 PM EDT Narrative 07/22/2021 3:35 PM EDT [address] [address] Name: VERONICA ALVAREZ Exam Date: 07/22/2021 : 1975 Age 45 Gender: F Physician: Irma Masterson Facility: [facility] Facility HSV: Outpatient Exam: CT CHEST [...] Thank you for referring VERONICA ALVAREZ to [facility]. Legally authenticated by POPE FUNMILAYO Almonte 2021-07-22 15:24:50 Procedure Note Provider, Swapnil [place] - 07/22/[address] [place] [address] Name: VERONICA ALVAREZ Exam Date: 07/22/2021 : 1975 Age 45 Gender: F Physician: Irma Masterson Facility: [facility] Facility HSV: Outpatient Exam: CT CHEST [...] Thank you for referring VERONICA ALVAREZ to [facility]. Legally authenticated by POPE FUNMILAYO [...] documented as of this encounter Care Teams Learning Coach Relationship Specialty Start Date End Date Georgette Moore APRN [address] [place] [address] PCP - General 04/12/21 02/01/25 Rodolfo Rhoades MD [address] [place] [address] PCP - General Family Medicine 02/02/25 [place] [address] TCM Nurse 07/25/24 08/25/24 Margaret Ro Community Health Worker 07/27/24 4 Marianne Bolaños Clinical Scalping Machine Operator 07/14/25 07/28/25 Ariana Bagley Community Health Worker 07/14/25 07/14/25 So Caicedo, SUPERVISOR PILE DRIVING VALUE-BASED [place] [address] None TCM Nurse 09/07/25 10/07/25 Keyonna Goff Community Health Worker 11/01/25 documented as of this encounter
--- OUTSIDE RECORDS SUMMARY | 2025-11-24 16:23 | XMS_ITS | Encounter Summary ---
Author Organization Healthcare Address [facility] [place] [address] Care Team Providers Care Trade Clerk Name Role Phone Rodolfo Rhoades MD Primary Care Provider [phone] So Caicedo LPN Unavailable Unavailable Encounter Details Date Type Department Care Team (Late st Contact Info) Description 10/02/2025 Telephone [facility] [address] [place] [address] Rodolfo Rhoades MD [address] [place] [address] Social History Tobacco Use Types [...] in a fdc (including now)? No 08/09/2025 [facility] Utilities Answer Date Recorded In [...] Visit [facility] & [address] [place] [address] Rod[place]fo [place] [address] documented as of this encounter Visit Diagnoses [...] documented as of this encounter Care Teams Trade Clerk Relationship Specialty Start Date End Date Rodolfo Rhoades MD [address] [place] [address] PCP - General Family Medicine 02/02/25 So Caicedo LPN [employer] [place] [address] None TCM Nurse 09/07/25 10/07/25 documented as of this encounter
--- OUTSIDE RECORDS SUMMARY | 2025-11-24 16:23 | XMS_ITS | Clinical Summary ---
[facility] Address [address] [place] [address] Care Team Providers Care End User Consultant Name Role Phone Rodolfo Rhoades MD Primary Care Provider [phone] Allergies Active Allergy Reactions Criticality Noted Date [...] lateral wall. Normal LVEF. Cardiac cath at [facility] (04/2020): Normal coronary arteries. 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 Implant N/A: Heart [employer] [id number] 01/01/2025 [id number] / [id number] / Appl Clip Evelyn Atriclip Flx 35mm - [id number] Implanted:Qty : 1 on 06/11/2021 by Taz Cespedes MD at [facility] Implant N/A: Heart ATR[employer]URE 02/29/2024 [id number] / / [id number] Procedures Procedure Name Priority Date/Time Associated Diagnosis Comments LIPID PANEL STAT 04/19/2021 9:30 AM EDT from Last 3 Months or Most Recently Relevant to Health Maintenance Results * Lipid Panel (04/19/2021 9:30 AM EDT) Total Cholesterol 146 0 - 200 mg/dL 04/19/2021 10:14 AM EDT [facility] Triglycerides 67 0 - 150 mg/dL 04/19/2021 10:14 AM EDT [facility] HDL Cholesterol 58 40 - 60 mg/dL 04/19/2021 10:14 AM EDT [facility] LDL Cholesterol 75 0 - 100 mg/dL 04/19/2021 10:14 AM EDT [facility] VLDL Cholesterol 13 5 - 40 mg/dL 04/19/2021 10:14 AM EDT [facility] LDL/HDL Ratio 1.29 04/19/2021 10:14 AM EDT [facility] Blood Line / Unknown 04/19/2021 9: 30 AM EDT 04/19/2021 9:40 AM EDT [facility] - 04/19/2021 10:14 AM [...] Saavedra APRN LAB BLOOD ORDERABLES Final Result [facility]
[address] [place] [address], from Last 3 Months or Most Recently Relevant to Health Maintenance Insurance [employer] [facility] Advance Directives * CPR (Attempt to Resuscitate) (Latest Code Status on File) Date Activated Date Inactivated Comments 06/11/2021 10:54 AM 06/18/2021 6:29 PM Question Answer Comments Code Status (Patient has no pulse and is not breathing): CPR (Attempt to Resuscitate) Medical Interventions (Patie nt has pulse or is breathing): Full Care Teams End User Consultant Relationship Specialty Start Date End Date Rodolfo Rhoades MD [address] [place] [address] PCP - General Family Medicine 04/05/25
--- OUTSIDE RECORDS SUMMARY | 2025-11-24 16:23 | XMS_ITS | Encounter Summary ---
Author Organization Healthcare Address [address] [id number] Care Team Providers Care House Designer Name Role Phone Rodolfo Rhoades MD Primary Care Provider [phone] So Caicedo LPN Unavailable Unavailable Reason for Visit * Reason Comments Med Refill Encounter Details Date Type Department Care Team (Late st Contact Info) Description 10/05/2025 Refill [facility] Medicine [address], [address] [place] [address] Tammy Caban MD [address] [place] [address] Social History Tobacco Use Types [...] any time in the past 12 m [facility], were you homeless or living in a assisted (including now)? No 08/09/2025 [facility] Utilities Answer Date Recorded In the past [...] EST Office Visit [facility] [address] [place] [address] Rodolfo Rhoades MD [address] [place] [address] documented as of this encounter [...] documented as of this encounter Care Teams House Designer Relationship Specialty Start Date End Date Rodolfo Rhoades MD [address] [place] [address] PCP - General Family Medicine 02/02/25 So Caicedo LPN VAL[employer] [place] [address] None TCM Nurse 09/07/25 10/07/25 documented as of this encounter
--- OUTSIDE RECORDS SUMMARY | 2025-11-24 16:23 | XMS_ITS | Encounter Summary ---
Author Organization [facility] Address [facility] [place] [address] Care Team Providers Care Operators School Manager Name Role Phone Rodolfo Rhoades MD Primary Care Provider [phone] Keyonna Goff Unavailable Unavailable Reason for Visit * Reason Onset Date Comments [facility] Lab/home Health 11/20/2025 Lab order Encounter Details Date Type Department Care Team (Late st Contact Info) Description 11/20/2025 Telephone [facility] [address] [place] [address] Rodolfo Rhoades MD [address] [place] [address] [facility] Lab/home Health (Lab order) [...] time in the past 12 m [facility], were you homeless or living in a nursing home (including now)? No 08/09/2025 [facility] Utilities Answer Date Recorded In the past [...] work to be drawn [facility]. Pt voiced understanding. * Telephone Encounter - Aniket Foster - 11/20/2025 1:10 PM EST Lab /Home Health Orders Patient: Veronica Weiss Type of Order: request lab order be sent to [facility] in [place] Fax Number (if outside ): states Nurse has it since done in past Best contact number: [phone] Optimal time of day to reach caller: [...] will receive notification of the communication/outcome via [employer]. documented in this encounter Plan of Treatment Upcoming Encounters Date Type Department Care Team (Late st Contact Info) Description 12/08/2025 11:20 AM EST Office Visit [facility] [address] [place] [address] Rod[place]fo [place] [address] documented as of this encounter [...] documented as of this encounter Care Teams Operators School Manager Relationship Specialty Start Date End Date Rodolfo Rhoades MD [address] [place] [address] PCP - General Family Medicine 02/02/25 Keyonna Goff Community Health Worker 11/01/25 documented as of this encounter
--- OUTSIDE RECORDS SUMMARY | 2025-11-24 16:23 | XMS_ITS | Encounter Summary ---
Author Organization Healthcare Address [address] [id number] Care Team Providers Care Ventilation Equipment Tender Name Role Phone Rodolfo Rhoades MD Primary Care Provider [phone] So Caicedo LPN Unavailable Unavailable Keyonna Goff Unavailable Unavailable Encounter Details Date Type Department Care Team (Late st Contact Info) Description 08/06/2025 Outside Procedure External Location [address] [place] [address] Provider, Swapnil [place] Social History Tobacco Use Types Packs/Day Years [...] in a usp (including now)? No 08/09/2025 [facility] Utilities Answer Date Recorded In the [...] 12/08/2025 11:20 AM EST Office Visit [facility] [address] [place] [address] Rodolfo Rhoades MD [address] [place] [address] documented as of this encounter Procedures Procedure Name Priority Date/Time Associated Diagnosis Comments XR ANKLE RIGHT 2 VIEWS 08/06/2025 12:23 PM EDT documented in this encounter Results * XR Ankle Right 2 Views (08/06/2025 12:23 PM EDT) Anatomical Region Laterality Modality Lower Extremities, Ankle Right Digital Radiography 08/06/2025 12:2 3 PM EDT Narrative 08/06/2025 12:43 PM EDT [address] [address] Name: HAILEY ALVAREZ Exam Date: 08/06/2025 : 1975 Age 49 years Gender: F Physician: LOBO LOWERY Facility: [facility] Facility HSV: Inpatient Exam: ANKLE 2V RT XR ANKLE 2 VIEWS RIGHT, 08/06/2025 11:34 AM CDT CLINICAL INDICATION: Female, 49 years old. Acute swelling, unable to bear weight COMPARISON: No existing relevant imaging and/or the patient did not have previous relevant imaging. Number of Views: 2 views of the right ankle was/were obtained. [id number]. FINDINGS / IMPRESSION: Diffuse subcutaneous edema. No acute fracture or dislocation. Anatomic osseous alignment. Ankle mortise is congruent. Negative for joint effusion. . . . S/D/G Electronically signed by: Blu Wasserman MD 08/06/2025 12:39 PM EDT RP Dictated By: Blu Wasserman Transcribed By: Transcribed On: 08/06/2025 12:39 PM Electronically signed by: Blu Wasserman 08/06/2025 Thank you for referring HAILEY ALVAREZ to [facility]. Legally authenticated by SEMAJ Momin 2025-08-06 12:39:28 Procedure Note Provider, [facility] 08/06/[address] [place] [address] Name: HAILEY ALVAREZ Exam Date: 08/06/2025 : 1975 Age 49 years Gender: F Physician: LOBO LOWERY Facility: [facility] Facility HSV: Inpatient Exam: ANKLE 2V RT XR ANKLE 2 VIEWS RIGHT, 08/06/2025 11:34 AM CDT CLINICAL INDICATION: Female, 49 years old. Acute swelling, unable tobear weight COMPARISON: No existing relevant imaging and/or the patient did not have previous relevant imaging. Number of Views: 2 views of the right ankle was/were obtained. [id number]. FINDINGS / IMPRESSION: Diffuse subcutaneous edema. No acute fracture or dislocation. Anatomic osseous alignment. Anklemortise is congruent. Negative for joint effusion. . . . S/D/G Electronically signed by: Blu Wasserman MD 08/06/2025 12:39 PM EDTRP Dictated By: Blu Wasserman Transcribed By: Transcribed On: 08/06/2025 12:39 PM Electronically signed by: Blu Wasserman 08/06/2025 Thank you for referring HAILEY ALVAREZ to [facility]. Legally authenticated by SEMAJ Momin 2025-08-06 12:39:28 Generic [place] Provider IMG XR PROCEDURES Fi nal Result [...] documented as of this encounter Care Teams Ventilation Equipment Tender Relationship Specialty Start Date End Date Rodolfo Rhoades MD [address] [place] [address] PCP - General Family Medicine 02/02/25 So Caicedo LPN [employer] [address] None TCM Nurse 09/07/25 10/07/25 Keyonna Goff Community Health Worker 11/01/25 documented as of this encounter
--- OUTSIDE RECORDS SUMMARY | 2025-11-24 16:23 | XMS_ITS | Encounter Summary ---
Author Organization [facility] Address [address] [place] [address] Care Team Providers Care Dairy Lab Technician Name Role Phone Rodolfo Rhoades MD Primary Care Provider [phone] Keyonna Goff Unavailable Unavailable Reason for Referral * Consultation (Routine) - Authorized Specialty Diagnoses / Procedures Referred By Kaiser zuniga Referred To Contact Rheumatology Diagnoses Non-traumatic rhabdomyolysis Elevated CK Rodolfo Rhoades MD [address] [place] [address] Phone: tel: fax: Referral ID Status Reason Start Date Expiration Date Visits Requested Visits Authorized [id number] Authorized Specialty Services Required 11/04/2025 05/06/2027 1 1 Encounter Details Date Type Department Care Team (Late st Contact Info) Description 11/02/2025 Orders Only [facility] Medicine [address] [place] [address] Rodolfo Rhoades MD [address] [place] [address] Non-traumatic rhabdomyolysis (Primary Dx); Elevated [...] a care home (including now)? No 08/09/2025 [facility] Utilities Answer Date Recorded In [...] Description 12/08/2025 11:20 AM EST Office Visit [facility] [address] [place] [address] Rodolfo Rhoades MD [address] [place] [address] Scheduled Referrals Name Type Priority [...] documented as of this encounter Care Teams Dairy Lab Technician Relationship Specialty Start Date End Date Rodolfo Rhoades MD [address] [place] [address] PCP - General Family Medicine 02/02/25 Keyonna Goff Community Health Worker 11/01/25 documented as of this encounter
--- OUTSIDE RECORDS SUMMARY | 2025-11-24 16:23 | XMS_ITS | Encounter Summary ---
Author Organization [facility] Address [facility] [place] [address] Care Team Providers Care Front Office Developer Name Role Phone Rodolfo Rhoades MD Primary Care Provider [phone] Keyonna Goff Unavailable Unavailable Reason for Visit * Reason Onset Date Comments HCN Paperwork/Documentation Request 11/02/2025 Encounter Details Date Type Department Care Team (Late st Contact Info) Description 11/02/2025 Telephone [facility] Medicine [address] [place] [address] Rodolfo Rhoades MD [address] [place] [address] HCN Paperwork/Documentation Request Social History Tobacco [...] a group home (including now)? No 08/09/2025 [facility] Utilities Answer Date Recorded In the past 12 months has th e [employer], gas, oil, or water [employer] threatened to shut off services in your [...] expiration for MRI of the head w/o/ [facility] Due Date: 11/02/2025 Send To: [facility] RADIOLOG[facility] [phone] Best contact number: Other: [phone] Optimal time of day to reach caller: ANYTIME Additional comments/information from caller: None Note: Please do not reply to this message. Follow-up communication and further actions as a result of this message need to be communicated with the patient directly, if the patient is not active onMyChart. If the patient is active on MyChart, they will receive notification of the communication/outcome via [employer]. documented in this encounter Plan of Treatment Upcoming Encounters Date Type Department Care Team (Late st Contact Info) Description 12/08/2025 11:20 AM EST Office Visit [facility] [address] [place] [address] Rodolfo Rhoades MD [address] [place] [address] documented as of this encounter [...] as of this encounter Care Teams Front Office Developer Relationship Specialty Start Date End Date Rodolfo Rhoades MD [address] [place] [address] PCP - General Family Medicine 02/02/25 Keyonna Goff Community Health Worker 11/01/25 documented as of this encounter
--- OUTSIDE RECORDS SUMMARY | 2025-11-24 16:23 | XMS_ITS | Encounter Summary ---
Author Organization [facility] Address [facility] [address] Care Team Providers Care Courtesy Car Driver Name Role Phone Rodolfo Rhoades MD Primary Care Provider [phone] Keyonna Goff Unavailable Unavailable Reason for Visit * Reason Onset Date Comments HCN Clinical Concern/Question 11/10/2025 Encounter Details Date Type Department Care Team (Late st Contact Info) Description 11/10/2025 Telephone [facility] Medicine [address] [place] [address] Rodolfo Rhoades MD [address] [place] [address] HCN Clinical Concern/Question Social History [...] in a long-term (including now)? No 08/09/2025 [facility] Utilities Answer Date Recorded In the [...] 3:48 PM EST Sent to pt in K[employer] * Telephone Encounter - Rodolfo Rhoades MD - 11/13/2025 3:16 PM EST The only other option we can try while waiting for rheumatology is a round of steroids and have herfollow up in the office for repeat testing. I know it's hard to get to [place]. I don't like thatthe level lis rising [...] and is asking for a call back [facility] Best contact number: [phone] Optimal time of day to reach caller: Additional comments/information from caller: Note: Please do not reply to this message. Follow-up communication and further actions as a result of this message need to be communicated with the patient directly, if the patient is not active onMyChart. If the patient is active on MyChart, they will receive notification of the communication/outcome via [employer]. * Telephone Encounter - Sandy Foster - 11/10/2025 3:43 PM EST Clinical Concern/Question Reason for Call: pt asks if the CK lab test she had at [facility] yesterday have been rec'd in clinic. Also asks if Dr Rhoades would write a letter stating that, due to her current health issue/nerve damage, inability to walk, etc, she is unable to work. She also asks for callback to advise what else she can do for her recovery. Please call to discuss. thx Best contact number: [phone] (mobile) Optimal time of day to reach caller: ANYTIME Additional comments/information from caller: None Note: Please do not reply to this message. Follow-up communication and further actions as a result of this message need to be communicated with the patient directly, if the patient is not active onMyChart. If the patient is active on MyChart, they will receive notification of the communication/outcome via [employer]. documented in this encounter Plan of Treatment Upcoming Encounters Date Type Department Care Team (Late st Contact Info) Description 12/08/2025 11:20 AM EST Office Visit [facility] [address] [place] [address] Rodolfo Rhoades MD [address] [place] [address] Scheduled Orders Name Type Priority [...] documented as of this encounter Care Teams Courtesy Car Driver Relationship Specialty Start Date End Date Rodolfo Rhoades MD [address] [place] [address] PCP - General Family Medicine 02/02/25 Keyonna Goff Community Health Worker 11/01/25 documented as of this encounter
--- OUTSIDE RECORDS SUMMARY | 2025-11-24 16:23 | XMS_ITS | Encounter Summary ---
Author Organization [facility] [place] [address] Care Team Providers Care Desktop Support Specialist Name Role Phone Rodolfo Rhoades MD Primary Care Provider [phone] Keyonna Goff Unavailable Unavailable Reason for Visit * Reason Onset Date Comments HCN Clinical Concern/Question 11/17/2025 Encounter Details Date Type Department Care Team (Late st Contact Info) Description 11/17/2025 Telephone [facility] Medicine [address] [place] [address] Rodolfo Rhoades MD [address] [place] [address] HCN Clinical Concern/Question Social History [...] a senior living (including now)? No 08/09/2025 [facility] Utilities Answer Date [...] lab work and I will fax to [facility]. Pt voiced understanding and stated she will [...] She would like to have bal[facility]zardone at [facility]. Please call to discuss. Thanks! Best contact number: [phone] (mobile) Optimal time of day to reach [...] Description 12/08/2025 11:20 AM EST Office Visit [address] [address] Rodolfo Rhoades MD [address] Romero [...] documented as of this encounter Care Teams Desktop Support Specialist Relationship Specialty Start Date End Date Rodolfo Rhoades MD [address] [place] [address] PCP - General Family Medicine 02/02/25 Keyonna Goff Community Health Worker 11/01/25 documented as of this encounter
--- OUTSIDE RECORDS SUMMARY | 2025-11-24 16:23 | XMS_ITS | Encounter Summary ---
Author Organization Healthcare Address [facility] [place] [address] Care Team Providers Care Applications Chemist Name Role Phone Rodolfo Rhoades MD Primary Care Provider Keyonna Goff Unavailable Unavailable Encounter Details Date Type Department Care Team (Late st Contact Info) Description 11/07/2025 Orders Only [facility] Medicine [address] [place] [address] Rodolfo Rhoades MD [address] [place] [address] Elevated CK (Primary Dx) Social [...] in a chcf (including now)? No 08/09/2025 [facility] Utilities Answer Date Recorded In the past 12 months has th e [employer], gas, oil, or water [employer] threatened to shut off services in your [...] Description 12/08/2025 11:20 AM EST Office Visit [facility] [place] [address] [address] [address] [place]fo [place] [address] documented as of this encounter [...] documented as of this encounter Care Teams Applications Chemist Relationship Specialty Start Date End Date [place] [address] PCP - General Family Medicine 02/02/25 Keyonna Goff Community Health Worker 11/01/25 documented as of this encounter
--- OUTSIDE RECORDS SUMMARY | 2025-11-24 16:23 | XMS_ITS | Encounter Summary ---
Author Organization Healthcare Address [address] [id number] Care Team Providers Care Certified Solid Waste Facility Operator Name Role Phone Rodolfo Rhoades MD Primary Care Provider [phone] So Caicedo LPN Unavailable Unavailable Keyonna Goff Unavailable Unavailable Encounter Details Date Type Department Care Team (Late st Contact Info) Description 08/06/2025 Outside Procedure External Location [address] [place] [address] Provider, Swapnil [place] Social History Tobacco Use Types Packs/Day Years [...] in a mcc (including now)? No 08/09/2025 [facility] Utilities Answer Date Recorded In the past 12 months has th e electric, gas, oil, or water company threatened to shut off services in your home? No 08/09/2025 Safety and Environment Answer Date Abrahma rded Do you worry that your child [...] 12/08/2025 11:20 AM EST Office Visit [facility] [address] [place] [address] Rodolfo Rhoades MD [address] [place] [address] documented as of this encounter Procedures Procedure Name Priority Date/Time Associated Diagnosis Comments XR CHEST 1 VIEW 08/06/2025 9:18 AM EDT documented in this encounter Results * XR Chest 1 View (08/06/2025 9:18 AM EDT) Anatomical Region Laterality Modality Chest Digital Radiogra phy 08/06/2025 9:18 AM EDT Narrative 08/06/2025 10:17 AM EDT [address] [address] Name: HAILEY ALVAREZ Exam Date: 08/06/2025 : 1975 Age 49 years Gender: F Physician: REFUGIO JACKSON Facility: [facility] Facility HSV: Outpatient Exam: CHEST PORTABLE [...] Thank you for referring HAILEY ALVAREZ to [facility]. Legally authenticated by BRITTON RIVERA 2025-08-06 10:14:11 Procedure Note Provider, Generic [place] - 08/06/2025 [place] [address] Name: HAILEY ALVAREZ Exam Date: 08/06/2025 : 1975 Age 49 years Gender: F Physician: REFUGIO JACKSON Facility: [facility] Facility HSV: Outpatient Exam: CHEST PORTABLE [...] Thank you for referring HAILEY ALVAREZ to [facility]. Legally authenticated by BRITTON RIVERA 2025-08-06 10:14:11 Generic [place] Provider IMG XR PROCEDURES Fi nal Result [...] as of this encounter Care Teams Certified Solid Waste Facility Operator Relationship Specialty Start Date End Date Rodolfo Rhoades MD [address] [place] [address] PCP - General Family Medicine 02/02/25 So Caicedo, ANTOINE VALUE-BASED [place] [address] None TCM Nurse 09/07/25 10/07/25 Keyonna Goff Community Health Worker 11/01/25 documented as of this encounter
--- OUTSIDE RECORDS SUMMARY | 2025-11-24 16:23 | XMS_ITS | Encounter Summary ---
Author Organization Healthcare Address [address] [id number] Care Team Providers Care Fisher Quahog Name Role Phone Rodolfo Rhoades MD Primary Care Provider [phone] Keyonna Goff Unavailable Unavailable Reason for Visit * Reason Comments [facility]/[employer] Encounter Details Date Type Department Care Team (Late st Contact Info) Description 11/09/2025 Patient Outreach [facility] [address] [facility] [address] [place] [address] Keyonna Goff Chw/[facility] Social History [...] any time in the past 12 m [facility], were you homeless or living in a halfway (including now)? No 08/09/2025 [facility] Utilities Answer Date Recorded In [...] Answer Entry Date Author Outreach Reason Follow-Up 11/09/2025 2:52 PM EST Keyonna Head Pop Health Reason For Encounter CHW/[facility] 11/09/20 2:52 PM EST Keyonna Goff documented in this [...] [facility] [address] [place] [address] Rodolfo Rhoades MD [address] [place] [address] documented as of this encounter [...] documented as of this encounter Care Teams Fisher Quahog Relationship Specialty Start Date End Date Rodolfo Rhoades MD [address] [place] [address] PCP - General Family Medicine 02/02/25 Keyonna Goff Community Health Worker 11/01/25 documented as of this encounter
--- OUTSIDE RECORDS SUMMARY | 2025-11-24 16:23 | XMS_ITS | Encounter Summary ---
Author Organization Healthcare Address [place] [address] Care Team Providers Care Preprint Analyst Name Role Phone Rodolfo Rhoades MD Primary Care Provider [phone] Keyonna Gfof Unavailable Unavailable Encounter Details Date Type Department Care Team (Late st Contact Info) Description 11/02/2025 Results Follow-Up [facility] [address] [place] [address] Rodolfo Rhoades MD [address] [place] [address] Social History Tobacco Use Types [...] in a correction (including now)? No 08/09/2025 [facility] Utilities Answer Date Recorded In the past 12 months has th e [email or web address], gas, oil, or water [employer] threatened to shut off services in your [...] EST Signed a script to fax to [place] for labs to be drawn. I also added an order to have CK checked here if there's difficulty getting the labs done in [place]. * Telephone Encounter - Angelica Apodaca - 11/03/2025 11:34 AM EST Status Update Call #1 1st call regarding the status of the initial request. Best contact number: [phone] (mobile) Optimal time of day to reach caller: ANYTIME Additional comments/information from caller: Pt calling, to see if she can get an appt with rheumatology in [place]. Pt states she is going to [facility] to check her levels due to [place] [...] will receive notification of the communication/outcome via [employer]. * Telephone Encounter - Melodie Jay RN - 11/03/2025 10:49 AM EST Pt returned call today asking if she could go to [facility]. RN reviewed Dr. Rhoades's note w/ pt that specifically mentioned send to ER for quick rheumatology work up w/ possible muscle biopsy. Advised pt [facility] may not have capability to work up as requested. Pt concerned about wait and lengthy stay at ER. RN advised she could try [facility] ER as they are a hospital as well. documented in this encounter Plan of Treatment Upcoming Encounters Date Type Department Care Team (Late st Contact Info) Description 12/08/2025 11:20 AM EST Office Visit [facility] [address] [place] [address] Rodolfo Rhoades MD [address] [place] [place] [...] documented as of this encounter Care Teams Preprint Analyst Relationship Specialty Start Date End Date Rodolfo Rhoades MD [address] [place] [address] PCP - General Family Medicine 02/02/25 Keyonna Goff Community Health Worker 11/01/25 documented as of this encounter
--- OUTSIDE RECORDS SUMMARY | 2025-11-24 16:23 | XMS_ITS | Encounter Summary ---
Author Organization Healthcare Address [address] [id number] Care Team Providers Care Paraffin Machine Operator Name Role Phone Rodolfo Rhoades MD Primary Care Provider [phone] Keyonna Goff Unavailable Unavailable Reason for Visit * Reason Comments Chw/[employer] Encounter Details Date Type Department Care Team (Late st Contact Info) Description 11/02/2025 Patient Outreach [facility] [address] [facility] [address] [place] [address] Keyonna Goff Chw/[facility] Social History [...] in the past 12 m [facility], were you homeless or living in a mcc (including now)? No 08/09/2025 [facility] Utilities Answer Date Recorded In [...] as of this encounter Mental Status * Transportation Needs Concern Calculation Answer Entry Date Author 2 11/02/2025 11:37 AM Keyonna Mata * Pop Health Reason For Visit Assessment Group Question Answer Entry Date Author Outreach Reason Program Enrollment/Intake 11/02/2025 11:18 AM Keyonna Mata Pop [facility] Reason For Encounter CHW/[facility] 11/02/2025 11:18 AM Keyonna Mata documented in this encounter Miscellaneous Notes * Progress Notes - Keyonna Goff - 11/02/2025 10:40 AM EST CHW Initial Encounter Note 11/02/2025 Urgent or Non-Urgent Referral: Non Urgent Mandarin Teacher: No Preferred Language: Czech Mandarin Teacher ID: N/A Outreach 1: 11/01/25 Outreach 2: [...] with lack of resources in their area ([facility]) and thatthey care for a child diagnosed [...] Description 12/08/2025 11:20 AM EST Office Visit [facility] [address] [place] [address] Rodolfo Rhoades MD [address] [place] [address] documented as of this encounter [...] documented as of this encounter Care Teams Paraffin Machine Operator Relationship Specialty Start Date End Date Rodolfo Rhoades MD [address] [place] [address] PCP - General Family Medicine 02/02/25 Keyonna Goff Community Health Worker 11/01/25 documented as of this encounter
--- OUTSIDE RECORDS SUMMARY | 2025-11-24 16:23 | XMS_ITS ---
Author Organization [facility] Address [address] [place] [address] Care Team Providers Care Protection Chief Industrial Plant Name Role Phone Rodolfo Rhoades MD Primary Care Provider [phone] Keyonna Goff Unavailable Unavailable Transitional Care Management Status:Closed (Closed) Program category:Transitional Care Management - [facility] Start date:09/07/2025 Enrollment date:09/08/2025 Enrollment reason:Identified using hospital discharge data End date:10/07/2025 Close reason:Patient graduated Overview This episode type is for outpatient care managers enrolling patients in the [facility] Transitional Care Management program. Continued Care and Services Coordination
[2025-11-24 16:26] VITALS: BP 200/112; PULSE 82; O2SAT 97
[2025-11-24 16:34] VITALS: BP 159/95; PULSE 76; O2SAT 100
[2025-11-24 16:39] LABS: Hematocrit 38.0 % (37.0-47.0); Hemoglobin 12.7 g/dL (12.2-16.2); Immature Granulocytes % 0.2 %; Mean Corpuscular HGB Conc 33.4 g/dL (31.8-35.4); Mean Corpuscular Hemoglobin 29.7 pg (27.0-31.2); Mean Corpuscular Volume 89.0 fl (81-99); Nucleated Red Blood Cells % 0 %; Platelet Count 269 K/mm3 (142-424); Red Blood Count 4.27 M/mm3 (4.20-5.40); Red Cell Distribution Width-SD 39.8 fL; White Blood Count 8.0 K/mm3 (4.8-10.8)
[2025-11-24 16:55] LABS: Alanine Aminotransferase 37 U/L (12-78); Albumin Level 4.2 g/dl (3.5-5.0); Albumin/Globulin Ratio 1.1 (1.1-1.8); Alkaline Phosphatase 103 U/L (38-126); Anion Gap 8.7 mEq/L (5-15); Aspartate Amino Transferase 44 U/L (14-36); Bilirubin,Total 0.7 mg/dl (0.2-1.3); Blood Urea Nitrogen 3 mg/dl (7-17); Calcium 9.5 mg/dl (8.4-10.2); Carbon Dioxide 25 mmol/L (22.0-30.0); Chloride 100 mmol/L (98-107); Creatine Kinase 99 U/L (30-135); Creatinine Clearance Estimated 86 mL/min (50-200); Creatinine,Serum 0.60 mg/dl (0.52-1.04); Estimated Glomerular Filt Rate 107 ml/min (>60); GFR (African American) 129 ML/MIN (>60); Globulin 3.8 g/dL (1.3-3.2); Glucose 97 mg/dl (74-100); Magnesium 1.9 mg/dl (1.6-2.3); Potassium 3.7 mmoL/L (3.5-5.1); Sodium 130 mmol/L (136-145); Total Protein,Serum 8.0 g/dl (6.3-8.2)
[2025-11-24 17:00] LABS: Microscopic, Urine URINE MICROSCOPIC (MICROSCOPIC)
[2025-11-24 17:02] LABS: Bilirubin,Urine Negative (Negative); Color,Urine YELLOW (Yellow); Glucose,Urine (UA) Negative (Negative); Ketones,Urine Negative (Negative); Leukocyte Esterase,Urine Negative (Negative); PH,Urine 6.0 (5.0-8.5); Protein,Urine Negative (Negative); Specific Gravity, Urine <= 1.005 (1.005-1.030); Urobilinogen,Urine 0.2 EU/dl (0.2)
[2025-11-24 17:14] VITALS: BP 159/95; PULSE 71; RESP 18; TEMP 36.8; O2SAT 98
[2025-11-24 17:19] LABS: Bacteria,Urine 1+ /lpf; RBC,Urine Occasional #/hpf (0-3); Squamous Epithelial Cell,Urine Occasional #/hpf (0-5); WBC,Urine Occasional #/hpf (0-3)
[2025-11-24 17:36] VITALS: BP 159/95; PULSE 78; RESP 18; TEMP 36.8; O2SAT 98
== END 2025-11-24 17:37 | disposition home or self-care (01) ==
PROVIDERS: Nurse Practitioner Family; Emergency Provider Student in an Organized Health Care Education/Training Program; PCP Nurse Practitioner Family
DX: M79.604 Pain in right leg (principal); M79.605 Pain in left leg; F17.210 Nicotine dependence, cigarettes, uncomplicated
CPT/HCPCS: 80053; 81001; 82550; 83735; 85025; 99283; 99284

== ENCOUNTER 2025-11-28 13:07 | Outpatient (CLI) | payer OTHER, SELFPAY ==
--- OUTSIDE RECORDS SUMMARY | 2025-10-02 09:40 | XMS_ITS | Encounter Summary ---
Author Organization Healthcare Address [facility] [place] [address] Care Team Providers Care Polysomnography Technician Name Role Phone Rodolfo Rhoades MD Primary Care Provider [phone] So Caicedo LPN Unavailable Unavailable Reason for Visit * Reason Comments Hospital Follow Up Has an appointment w Jf navarro Dr on 10/12/2025 . Does need a refill on Gabapentin until appointment will Dr. Rhoades on 10/12/2025 Encounter Details Date Type Department Care Team (Latest Contact Info) Description 10/02/2025 9:40 AM EST Office Visit [facility] [address] [place] [address] Georgette Moore, DERRELL [address] [place] [address] Non-traumatic rhabdomyolysis (Primary Dx) Social History Tobacco Use Types Packs/Day Years Used Date Smoking Tobacco: Some Days Cigarettes 24 Started: 11/30/2001 Passive Smoke Exposure: Current Smokeless Tobacco: Never Alcohol Use Standard Drinks/Week Comments Never 0 (1 standard drink = 0.6 oz pur e alcohol) PHQ-2 Answer Date Recorded Patient Health Questionnaire-2 Score 1 10/02/2025 PHQ-9 Answer Date Recorded Patient Health Questionnaire-9 Score 11 10/02/2025 Humiliation, Afraid, Rape, and Kick questionnair e [...] any time in the past [facility] were you homeless or living in a usp (including now)? No 08/09/2025 [facility] Utilities Answer Date Recorded In the [...] Sign Reading Time Taken Comments Blood Pressure 110/70 10/02/2025 9:43 AM EST Pulse 75 10/02/2025 9:43 AM EST Temperature 37 C (98.6 F) 10/02/2025 9:43 AM EST Respiratory Rate - - Oxygen Saturation 97% 10/02/2025 9:43 AM EST Inhaled Oxygen Concentration - - Weight 63 kg (139 lb) 10/02/2025 9:43 AM EST Height 162.6 cm (5' 4 ) 10/02/2025 9:43 AM EST Body Mass Index 23.86 10/02/2025 9:43 AM EST documented in this encounter Functional Status * BP Answer Date of Assessment Author 110/70 10/02/2025 9:43 AM EST Jayde Conte * Temp Answer Date of Assessment Author 98.6 10/02/2025 9:43 AM EST Jayde Conte * Temp src Answer Date of Assessment Author Oral 10/02/2025 9:43 AM EST Dg Jayde * Pulse Answer Date of Assessment Author 75 10/02/2025 9:43 AM EST Dg Jayde * SpO2 Answer Date of Assessment Author 97 10/02/2025 9:43 AM EST Jayde Conte * Height Answer Date of Assessment Author 64 10/02/2025 9:43 AM EST Dg Jayde * Weight Answer Date of Assessment Author 2224 10/02/2025 9:43 AM EST Dg Jayde * BMI (Calculated) Answer Date of Assessment Author 23.9 10/02/2025 9:43 AM EST Ashbrook, Jayde * Percent Excess Weight Loss Answer Date of Assessment Author 0 10/02/2025 9:43 AM EST Ashbrook, Jayde * Total Weight Change Percent Answer Date of Assessment Author 2222 10/02/2025 9:43 AM EST Ashbrook, Jayde * Weight Change Since Preop Answer Date of Assessment Author 63.04 10/02/2025 9:43 AM EST Ashbrook, Jayde * Initial Excess Weight Answer Date of Assessment Author -54.43 10/02/2025 9:43 AM EST Ashbrook, Jayde * IBW in lbs (Bariatric) Answer Date of Assessment Author 120 10/02/2025 9:43 AM EST Ashbrook, Jayde * Weight Change Since Last Visit Answer Date of Assessment Author 63.04 10/02/2025 9:43 AM EST Ashbrook, Jayde * IBW in kg (Bariatric) Answer Date of Assessment Author 54.43 10/02/2025 9:43 AM EST Ashbrook, Jayde * Percent of IBW Answer Date of Assessment Author 4,085.98 10/02/2025 9:43 AM EST Ashbrook, Jayde * EBW (kg) Answer Date of Assessment Author 2,222.46 10/02/2025 9:43 AM EST Ashbrook, Jayde * EBW (lbs) Answer Date of Assessment Author 2,216.5 10/02/2025 9:43 AM EST Ashbrook, Jayde * Weight Change 24 hrs Answer Date of Assessment Author -.25 10/02/2025 9:43 AM EST [place], Jayde * Depression Screening Question Answer Date of Assessment Author Will the patient answer the depression risk questions? Yes 10/02/2025 9:50 AM EST Ashclaud[place]ok, Jayde * BSA (Calculated - sq m) Answer Date of Assessment Author 1.69 10/02/2025 9:43 AM EST Ashbrook, Jayde * BMI (Calculated) Answer Date of Assessment Author 23.85 10/02/2025 9:43 AM EST Ashbrook, Jayde * BP Location Answer Date of Assessment Author Left arm 10/02/2025 9:43 AM EST Ashbrook, Jayde * IBW/kg (Calculated) Male Answer Date of Assessment Author 59.2 10/02/2025 9:43 AM EST Ashbrook, Jayde * IBW/kg (Calculated) Female Answer Date of Assessment Author 54.7 10/02/2025 9:43 AM Jayde Dyer * IBW/kg (Calculated) Answer Date of Assessment Author 54.7 10/02/2025 9:43 AM Jayde Dyer * Over the past 2 weeks, how often have you been bothered by any of the following problems? Question Answer Date of Assessment Author Little interest or pleasure in doing things Not at all 10/02/2025 9:50 AM Jayde Dyer Feeling down, depressed, or hopeless Several days 10/02/2025 9:50 AM Jayde Dyer Patient Health Questionnaire -2 Score 1 10/02/2025 9:50 AM Jayde Dyer * Over the past 2 weeks, how often have you been bothered by any of the following problems? Question Answer Date of Assessment Author Trouble falling or staying asleep, or sleeping too much Nearly every day 10/02/2025 9:50 AM Jayde Dyer Feeling tired or having yesika le energy Nearly every day 10/02/2025 9:50 AM Jayde Dyer Poor appetite or overeating Not at all 10/02/2025 9: 50 AM Jayde Dyer Feeling bad about yourself - or that you are a failure or have let yourself or your family down Several days 10/02/2025 9:50 AM Jayde Dyer Trouble concentrating on things, such as reading the newspaper or watching television Nearly every day 10/02/2025 9:50 AM Jayde Dyer Moving or speaking so slowly that other people could have noticed. Or the opposite - being so fidgety or restless that you have been moving around a lot more than usual Not at all 10/02/2025 9:50 AM Jayde Dyer Thoughts that you would be better off or hurting yourself in some way Not at all 10/02/2025 9:50 AM Jayde Dyer Patient Health Questionnaire -9 Score 11 10/02/2025 9:50 AM Jayde Dyer * How difficult have these problems made it for you to do your work, take care of things at home, or get along with other people? Answer Date of Assessment Author Somewhat difficult 10/02/2025 9:50 AM EST [place], Jayde * Weight in (lb) to have BMI = 25 Answer Date of Assessment Author 145.3 10/02/2025 9:43 AM EST Ashbrook, Jayde * BMI (Calculated) Answer Date of Assessment Author 23.9 10/02/2025 9:43 AM EST Ashbrook, Jayde * Percent Excess Weight Loss Answer Date of Assessment Author 0 10/02/2025 9:43 AM EST Ashbrook, Jayde * Weight Change Since Preop Answer Date of Assessment Author 63.05 10/02/2025 9:43 AM EST Ashbrook, Jayde * Initial Excess Weight Answer Date of Assessment Author -54.43 10/02/2025 9:43 AM EST Ashbrook, Jayde * IBW in kg (Bariatric) Answer Date of Assessment Author 54.43 10/02/2025 9:43 AM EST Ashbrook, Jayde * IBW in lb (Bariatric) Answer Date of Assessment Author 120 10/02/2025 9:43 AM EST [place], Jayde * Weight Change Since Last Visit Answer Date of Assessment Author 63.05 10/02/2025 9:43 AM EST Ashbrook, Jayde * Percent of IBW Answer Date of Assessment Author 115.83 10/02/2025 9:43 AM EST [place], Jayde * EBW (kg) Answer Date of Assessment Author 8.61 10/02/2025 9:43 AM EST Ashbrook, Jayde * EBW (lb) Answer Date of Assessment Author 19 10/02/2025 9:43 AM EST Ashbharath, Jayde * Difference in Weight Since Last Visit Answer Date of Assessment Author -0.25 10/02/2025 9:43 AM EST Ashbrook, Jayde * Temp (in Celsius) for KOY[place] IV Answer Date of Assessment Author 37 10/02/2025 9:43 AM EST Ashbrook, Jayde * IBW/kg (Calculated) Answer Date of Assessment Author 54.7 10/02/2025 9:43 AM EST Ashbrook, Jayde * Adult Low Range Vt 6mL/kg Answer Date of Assessment Author 328.2 10/02/2025 9:43 AM EST Ashbrook, Jayde * Adult Moderate Range Vt 8mL/kg Answer Date of Assessment Author 437.6 10/02/2025 9:43 AM EST Ashbrook, Jayde * Adult High Range Vt 10mL/kg Answer Date of Assessment Author 547 10/02/2025 9:43 AM EST Dg, Jayde * Pain Score Answer Date of Assessment Author 7 10/02/2025 9:49 AM EST Ashbrook, Jayde * Patient Position Answer Date of Assessment Author Sitting 10/02/2025 9:43 AM EST Ashbrook, Jayde * Pain Screening/Additional Assessments Question Answer Date of Assessment Author Pain Screening/Assessments Pain Screening 10/02/2025 9 :49 AM EST Ashbrook, Jayde * Pain Screening Answer Date of Assessment Author 0-10 10/02/2025 9:49 AM EST [place], Jayde * BP Answer Date of Assessment Author 110/70 10/02/2025 9:43 AM EST [place], Jayde * Temp Answer Date of Assessment Author 98.6 10/02/2025 9:43 AM EST Ashbharath, Jayde * Temp src Answer Date of Assessment Author Oral 10/02/2025 9:43 AM EST Dg, Jayde * Pulse Answer Date of Assessment Author 75 10/02/2025 9:43 AM EST Dg, Jayde * SpO2 Answer Date of Assessment Author 97 10/02/2025 9:43 AM EST Dg, Jayde * Height Answer Date of Assessment Author 64 10/02/2025 9:43 AM EST Dg, Jayde * Weight Answer Date of Assessment Author 2224 10/02/2025 9:43 AM EST Ashbharath, Jayde * BSA (Calculated - sq m) Answer Date of Assessment Author 1.69 10/02/2025 9:43 AM EST Dg, Jayde * BMI (Calculated) Answer Date of Assessment Author 23.85 10/02/2025 9:43 AM EST Ashbharath, Jayde * BP Location Answer Date of Assessment Author Left arm 10/02/2025 9:43 AM EST Dg Jayde * Over the past 2 weeks, how often have you been bothered by any of the following problems? Question Answer Date of Assessment Author Little interest or pleasure in doing things Not at all 10/02/2025 9:50 AM EST Dg Jayde Feeling down, depressed, or hopeless Several days 10/02/2025 9:50 AM EST Dg Jayde Patient Health Questionnaire -2 Score 1 10/02/2025 9:50 AM Jayde Dyer * Over the past 2 weeks, how often have you been bothered by any of the following problems? Question Answer Date of Assessment Author Trouble falling or staying asleep, or sleeping too much Nearly every day 10/02/2025 9:50 AM Jayde Dyer Feeling tired or having yesika le energy Nearly every day 10/02/2025 9:50 AM Jayde Dyer Poor appetite or overeating Not at all 10/02/2025 9: 50 AM Jayde Dyer Feeling bad about yourself - or that you are a failure or have let yourself or your family down Several days 10/02/2025 9:50 AM Jayde Dyer Trouble concentrating on things, such as reading the newspaper or watching television Nearly every day 10/02/2025 9:50 AM Jayde Dyer Moving or speaking so slowly that other people could have noticed. Or the opposite - being so fidgety or restless that you have been moving around a lot more than usual Not at all 10/02/2025 9:50 AM Jayde Dyer Thoughts that you would be better off or hurting yourself in some way Not at all 10/02/2025 9:50 AM Jayde Dyer Patient Health Questionnaire -9 Score 11 10/02/2025 9:50 AM Jayde Dyer * How difficult have these problems made it for you to do your work, take care of things at home, or get along with other people? Answer Date of Assessment Author Somewhat difficult 10/02/2025 9:50 AM Jayde Christian * Weight in (lb) to have BMI = 25 Answer Date of Assessment Author 145.3 10/02/2025 9:43 AM Jayde Dyer * Pain Score Answer Date of Assessment Author 7 10/02/2025 9:49 AM Jayde Dyer * Patient Position Answer Date of Assessment Author Sitting 10/02/2025 9:43 AM Jayde Dyer documented as of this encounter Mental Status * BP Answer Entry Date Author 110/70 10/02/2025 9:43 AM Jayde Dyer * Temp Answer Entry Date Author 98.6 10/02/2025 9:43 AM EST Dg, Jayde * Temp src Answer Entry Date Author Oral 10/02/2025 9:43 AM EST [place], Jayde * Pulse Answer Entry Date Author 75 10/02/2025 9:43 AM EST Ashbrook, Jayde * SpO2 Answer Entry Date Author 97 10/02/2025 9:43 AM EST Ashbrook, Jayde * Height Answer Entry Date Author 64 10/02/2025 9:43 AM EST Ashbrook, Jayde * Weight Answer Entry Date Author 222310/02/2025 9:43 AM EST Ashbrook, Jayde * BMI (Calculated) Answer Entry Date Author 23.9 10/02/2025 9:43 AM EST Ashbharath, Jayde * Percent Excess Weight Loss Answer Entry Date Author 0 10/02/2025 9:43 AM EST [place], Jayde * Total Weight Change Percent Answer Entry Date Author 222110/02/2025 9:43 AM EST Dg, Jayde * Weight Change Since Preop Answer Entry Date Author 63.04 10/02/2025 9:43 AM EST Dg, Jayde * Initial Excess Weight Answer Entry Date Author -54.43 10/02/2025 9:43 AM EST Ashbharath, Jayde * IBW in lbs (Bariatric) Answer Entry Date Author 120 10/02/2025 9:43 AM EST Dg, Jayde * Weight Change Since Last Visit Answer Entry Date Author 63.04 10/02/2025 9:43 AM EST Ashbharath, Jayde * IBW in kg (Bariatric) Answer Entry Date Author 54.43 10/02/2025 9:43 AM EST Dg, Jayde * Percent of IBW Answer Entry Date Author 4,085.98 10/02/2025 9:43 AM EST Dg, Jayde * EBW (kg) Answer Entry Date Author 2,222.46 10/02/2025 9:43 AM EST Ashbharath, Jayde * EBW (lbs) Answer Entry Date Author 2,216.5 10/02/2025 9:43 AM EST Dg, Jayde * Weight Change 24 hrs Answer Entry Date Author -.25 10/02/2025 9:43 AM EST Dg, Jayde * Depression Screening Question Answer Entry Date Author Will the patient answer the depression risk questions? Yes 10/02/2025 9:50 AM EST Dg, Jayde * BSA (Calculated - sq m) Answer Entry Date Author 1.69 10/02/2025 9:43 AM EST Dg, Jayde * BMI (Calculated) Answer Entry Date Author 23.85 10/02/2025 9:43 AM EST Dg, Jayde * BP Location Answer Entry Date Author Left arm 10/02/2025 9:43 AM EST Dg, Jayde * IBW/kg (Calculated) Male Answer Entry Date Author 59.2 10/02/2025 9:43 AM EST Dg, Jayde * IBW/kg (Calculated) Female Answer Entry Date Author 54.7 10/02/2025 9:43 AM EST Dg, Jayde * IBW/kg (Calculated) Answer Entry Date Author 54.7 10/02/2025 9:43 AM GUS Conte Jayde * Over the past 2 weeks, how often have you been bothered by any of the following problems? Question Answer Entry Date Author Little interest or pleasure in doing things Not at all 10/02/2025 9:50 AM GUS Conte Jayde Feeling down, depressed, or hopeless Several days 10/02/2025 9:50 AM GUS Conte Jayde Patient Health Questionnaire -2 Score 1 10/02/2025 9:50 AM Jayde Dyer * Over the past 2 weeks, how often have you been bothered by any of the following problems? Question Answer Entry Date Author Trouble falling or staying asleep, or sleeping too much Nearly every day 10/02/2025 9:50 AM GUS Conte Jayde Feeling tired or having yesika le energy Nearly every day 10/02/2025 9:50 AM GUS Conte Jayde Poor appetite or overeating Not at all 10/02/2025 9: 50 AM GUS Conte Jayde Feeling bad about yourself - or that you are a failure or have let yourself or your family down Several days 10/02/2025 9:50 AM GUS Conte Jayde Trouble concentrating on things, such as reading the newspaper or watching television Nearly every day 10/02/2025 9:50 AM GUS Conte Jayde Moving or speaking so slowly that other people could have noticed. Or the opposite - being so fidgety or restless that you have been moving around a lot more than usual Not at all 10/02/2025 9:50 AM Jayde Dyer Thoughts that you would be better off or hurting yourself in some way Not at all 10/02/2025 9:50 AM Jayde Dyer Patient Health Questionnaire -9 Score 11 10/02/2025 9:50 AM Jayde Dyer * [facility] Mental Health Concern Calculation Answer Entry Date Author 3 10/02/2025 9:50 AM Jayde Dyer * How difficult have these problems made it for you to do your work, take care of things at home, or get along with other people? Answer Entry Date Author Somewhat difficult 10/02/2025 9:50 AM Jayde Christian * Restart Pain Assessment Timer Answer Entry Date Author Yes 10/02/2025 9:49 AM GUS Conte Jayde * Weight in (lb) to have BMI = 25 Answer Entry Date Author 145.3 10/02/2025 9:43 AM Jayde Dyer * BMI (Calculated) Answer Entry Date Author 23.9 10/02/2025 9:43 AM GUS Conte Jayde * Percent Excess Weight Loss Answer Entry Date Author 0 10/02/2025 9:43 AM Jayde Dyer * Weight Change Since Preop Answer Entry Date Author 63.05 10/02/2025 9:43 AM GUS Conte Jayde * Initial Excess Weight Answer Entry Date Author -54.43 10/02/2025 9:43 AM Jayde Dyer * IBW in kg (Bariatric) Answer Entry Date Author 54.43 10/02/2025 9:43 AM GUS Conte Jayde * IBW in lb (Bariatric) Answer Entry Date Author 120 10/02/2025 9:43 AM GUS Conte Jayde * Weight Change Since Last Visit Answer Entry Date Author 63.05 10/02/2025 9:43 AM GUS Conte Jayde * Percent of IBW Answer Entry Date Author 115.83 10/02/2025 9:43 AM Jayde Dyer * EBW (kg) Answer Entry Date Author 8.61 10/02/2025 9:43 AM EST Ashbrook, Jayde * EBW (lb) Answer Entry Date Author 19 10/02/2025 9:43 AM GUS Conte Jayde * Difference in Weight Since Last Visit Answer Entry Date Author -0.25 10/02/2025 9:43 AM GUS Conte Jayde * Temp (in Celsius) for [place] IV Answer Entry Date Author 37 10/02/2025 9:43 AM GUS Conte Jayde * IBW/kg (Calculated) Answer Entry Date Author 54.7 10/02/2025 9:43 AM GUS Conte Jayde * Adult Low Range Vt 6mL/kg Answer Entry Date Author 328.2 10/02/2025 9:43 AM GUS Conte Jayde * Adult Moderate Range Vt 8mL/kg Answer Entry Date Author 437.6 10/02/2025 9:43 AM GUS Conte Jayde * Adult High Range Vt 10mL/kg Answer Entry Date Author 547 10/02/2025 9:43 AM GUS Conte Jayde * Pain Score Answer Entry Date Author 7 10/02/2025 9:49 AM GUS Conte Jayde * BP Cuff Size Answer Entry Date Author Adult 10/02/2025 9:43 AM GUS Conte Jayde * LAMAR-7 Question Answer Entry Date Author Feeling Nervous, Anxious, or on Edge 3 10/02/2025 9:51 AM Jayde Dyer Not Being Able to Stop or Co ntrol Worrying 3 10/02/2025 9:51 AM Jayde Dyer Worrying too Much About Diff erent Things 3 10/02/2025 9:51 AM Jayde Dyer Trouble Relaxing 2 10/02/2025 9:51 AM Jayde Gerardo Being so Restless That it is Hard to Sit Still 1 10/02/2025 9:51 AM Jayde Dyer Becoming Easily Annoyed or Irritable 1 10/02/2025 9:51 AM Jayde Dyer Feeling Afraid as if Somethi ng Awful Might Happen 2 10/02/2025 9:51 AM Jayde Dyer LAMAR-7 Total Score 15 10/02/2025 9:51 AM Jayde Dyer If you checked off any probl ems, how difficult have these problems made it for you to do your work, take care of things at home, or get along with other people? Very difficult 10/02/2025 9:51 AM EST Jayde Conte * Patient Position Answer Entry Date Author Sitting 10/02/2025 9:43 AM EST Jayde Conte * Pain Screening Answer Entry Date Author 0-10 10/02/2025 9:49 AM EST Jayde Conte documented in this encounter Miscellaneous Notes * Clinician Note - Jayde Conte - 10/02/2025 9:40 AM EST Fall risk protocol in place, pt in chair with arms * Progress Notes - Georgette Moore APRN - 10/02/2025 9:40 AM EST Office Progress Note Subjective Veronica Weiss is a 50 y.o. female who presents for Hospital Follow Up (Has an appointment with Jf Dukes on 10/12/2025 . Does need a refill on Gabapentin until appointment will Dr. Rhoades on 10/12/2025). History of Present Illness The patient presents for evaluation of foot pain. Pt was dx with non-traumatic rhabdomyolysis and in the hospital for almost a month according to pt She is now home but unable to walk to bear wt and is now in wheelchair all the time She also thinks she is not on enough gabapentin because her feet have not stopped hurting She has been experiencing persistent foot pain, which she initially attributed to a tendon issue. Despite attempts to alleviate the discomfort through standing and exercise, the pain has not subsided. She was advised to seek immediate medical attention at an urgent treatment center but felt that her condition had improved bythe time she received the call and thus did not attend. However, she subsequently developed additional pain and swelling in her foot. She also noticed the emergence of large blisters on both feet, which she managed by wrapping them. She is uncertain about the necessity of continued wrapping. She reports no leg swelling. The pain is severe enough to disrupt her sleep. She expresses concern about overexertion leading to hospitalization and feels uncertain about appropriate management strategies. Her mobility is limited, with the ability to stand only on her right leg, necessitating the use of awheelchair. She is open to the idea of home nursing care. She has an upcoming appointment with Dr. Rhoades on 10/12/2025, but believes this is too far in the future. She recalls a previous consultation with him upon her discharge, during which a follow-up appointment was scheduled for four weeks later. Sleep: Reports pain severe enough to disrupt sleep Living Condition: Uses a wheelchair at home The following sections have been reviewed and updated during this encounter: Tobacco Allergies Meds Problems Med Hx Surg Hx Fam Hx Objective Blood pressure 110/70, pulse 75, temperature 37 ??C (98.6 ??F), temperature source Oral, height 1.626 m (5' 4 ), weight 63 kg (139 lb), SpO2 97%, not currently . Body mass index is 23.86 kg/m??. Physical Exam Vitals and nursing note reviewed. Constitutional: Appearance: She is normal weight. Cardiovascular: Rate and Rhythm: Normal rate and regular rhythm. Pulses: Normal pulses. Heart sounds: Normal heart sounds. Pulmonary: Effort: Pulmonary effort is normal. Breath sounds: Normal breath sounds. Musculoskeletal: Comments: Very thin with contracture of left leg Neurological: General: No focal deficit present. Mental Status: She is alert and oriented to person, place, and time. Psychiatric: Mood and Affect: Mood normal. Behavior: Behavior normal. Thought Content: Thought content normal. Judgment: Judgment normal. Assessment/Plan Diagnoses and all orders for this visit: Non-traumatic rhabdomyolysis Assessment & Plan 1. Foot pain: - The etiology of the foot pain remains uncertain, with no clear indication of trauma or medication-related causes. Swelling and blisters on both feet have since healed, but pain persists and occasionally wakes her up. - There is no swelling in the leg. -. An appointment with Dr. Rhoades will be scheduled for this week to further evaluate her condition. Needs extensive PT Follow-up: An appointment with Dr. Rhoades will be scheduled for this week. Verbal consent was obtained to use ambient listening technology to assist in the documentation of the encounter: yes documented in this encounter Plan of Treatment Upcoming Encounters Date Type Department Care Team (Late st Contact Info) Description 12/08/2025 11:20 AM EST Office Visit [facility] [address] [place] [address] Rodolfo Rhoades MD [address] [place] [address] documented as of this encounter Visit Diagnoses Diagnosis Non-traumatic rhabdomyolysis- Primary documented in this encounter Additional Health Concerns Assessment Noted Time PHQ-9 Depression Total Score: 025 9:50 AM EST A fall risk assessment has been complete d for the patient 10/02/2025 9:55 AM EST A Body Mass Index follow-up plan has been documented for the patient 10/02/2025 10:21 AM EST documented as of this encounter Care Teams Polysomnography Technician Relationship Specialty Start Date End Date Rodolfo Rhoades MD [address] [place] [address] PCP - General Family Medicine 02/02/25 So Caicedo LPN [employer] [place] [address] None TCM Nurse 09/07/25 10/07/25 documented as of this encounter
--- OUTSIDE RECORDS SUMMARY | 2025-10-05 11:00 | XMS_ITS | Encounter Summary ---
Author Organization Healthcare Address [address] [place] [address] Care Team Providers Care Plant Control Aide Name Role Phone Rodolfo Rhoades MD Primary Care Provider [phone] So Caicedo LPN Unavailable Unavailable Reason for Referral * Consultation (Routine) - Authorized Specialty Diagnoses / Procedures Referred By Contac t Referred To Contact Physical Therapy Diagnoses Non-traumatic rhabdomyolysis Elevated CK Generalized weakness [place] [address] Phone: tel: fax: Referral ID Status Reason Start Date Expiration Date Visits Requested Visits Authorized [id number] Authorized Consult and Treat 10/06/2025 04/07/2027 1 1 Scheduling Instructions [facility] Reason for Visit * Reason Comments Follow-up Left leg bothersome more so than right, needs to get into PT and neurology Care Gap Closure Wants Flu and Pneumo sandra vaccines if possible; postpone Covid vaccine Encounter Details Date Type Department Care Team (Latest Contact Info) Description 10/05/2025 11:00 AM EST Office Visit [facility] [place] [address] [place] [address] Non-traumatic rhabdomyolysis (Primary Dx); Essential hypertension; Nerve pain; Elevated CK; Generalized weakness Social History Tobacco Use Types Packs/Day Years Used Date Smoking Tobacco: Some Days Cigarettes 1 24 Started: 11/30/2001 Passive Smoke Exposure: Current [...] in a correction (including now)? No 08/09/[address] [facility] Utilities Answer Date Recorded In the past 12 months has [employer] electric, gas, oil, or water company threatened [...] Sign Reading Time Taken Comments Blood Pressure 119/80 10/05/2025 11:11 AM EST Pulse 78 10/05/2025 11:11 AM EST Temperature 36.4 C (97.6 F) 10/05/2025 11:11 AM EST Respiratory Rate 16 10/05/2025 11:11 AM EST Oxygen Saturation 97% 10/05/2025 11:11 AM EST Inhaled Oxygen Concentration - - Weight - - Height 162.6 cm (5' 4 ) 10/05/2025 11:11 AM EST Body Mass Index - - documented in this encounter Functional Status * BP Answer Date of Assessment Author 119/80 10/05/2025 11:11 AM EST Mindy Crane * Temp Answer Date of Assessment Author 97.6 10/05/2025 11:11 AM EST Javon-Bok ros, Mindy * Temp src Answer Date of Assessment Author Oral 10/05/2025 11:11 AM EST Javon-Bok ros, Mindy * Pulse Answer Date of Assessment Author 78 10/05/2025 11:11 AM EST Javon-Bok ros, Mindy * Resp Answer Date of Assessment Author 16 10/05/2025 11:11 AM EST Javon-Bok ros, Mindy * SpO2 Answer Date of Assessment Author 97 10/05/2025 11:11 AM EST Javon-Bok ros, Mindy * Height Answer Date of Assessment Author 64 10/05/2025 11:11 AM EST Javon-Bok ros, Mindy * BMI (Calculated) Answer Date of Assessment Author 0 10/05/2025 11:11 AM EST Javon-Bok ros, Mindy * Initial Excess Weight Answer Date of Assessment Author -54.43 10/05/2025 11:11 AM EST Javon-Bok ros, Mindy * IBW in lbs (Bariatric) Answer Date of Assessment Author 120 10/05/2025 11:11 AM EST Javon-Bok ros, Mindy * IBW in kg (Bariatric) Answer Date of Assessment Author 54.43 10/05/2025 11:11 AM EST Javon-Bok ros, Mindy * BMI (Calculated) Answer Date of Assessment Author 0 10/05/2025 11:11 AM EST Javon-Bok ros, Mindy * BP Location Answer Date of Assessment Author Left arm 10/05/2025 11:11 AM EST Javon-Bok ros, Mindy * IBW/kg (Calculated) Male Answer Date of Assessment Author 59.2 10/05/2025 11:11 AM EST Javon-Bok ros, Mindy * IBW/kg (Calculated) Female Answer Date of Assessment Author 54.7 10/05/2025 11:11 AM EST Javon-Bok ros, Mindy * Restart Vitals Timer Answer Date of Assessment Author Yes 10/05/2025 11:11 AM EST Javon-Bok ros, Mindy * IBW/kg (Calculated) Answer Date of Assessment Author 54.7 10/05/2025 11:11 AM EST Javon-Bok ros, Mindy * Calculated C-SSRS Risk Score (Lifetime/Recent) Answer Date of Assessment Author No Risk Indicated 10/05/2025 11:21 AM EST Javon-B okjessica Mindy * Weight in (lb) to have BMI = 25 Answer Date of Assessment Author 145.3 10/05/2025 11:11 AM EST Rama Craneica * BMI (Calculated) Answer Date of Assessment Author 0 10/05/2025 11:11 AM EST Rama Craneica * Initial Excess Weight Answer Date of Assessment Author -54.43 10/05/2025 11:11 AM EST Rama Craneica * IBW in kg (Bariatric) Answer Date of Assessment Author 54.43 10/05/2025 11:11 AM EST Wendi lopez Mindy * IBW in lb (Bariatric) Answer Date of Assessment Author 120 10/05/2025 11:11 AM EST Rama Craneica * Temp (in Celsius) for NONDALTON IV Answer Date of Assessment Author 36.4 10/05/2025 11:11 AM EST Rama Craneica * IBW/kg (Calculated) Answer Date of Assessment Author 54.7 10/05/2025 11:11 AM EST Rama Craneica * Adult Low Range Vt 6mL/kg Answer Date of Assessment Author 328.2 10/05/2025 11:11 AM EST Wendi lopez Mindy * Adult Moderate Range Vt 8mL/kg Answer Date of Assessment Author 437.6 10/05/2025 11:11 AM EST Wendi lopez Mindy * Adult High Range Vt 10mL/kg Answer Date of Assessment Author 547 10/05/2025 11:11 AM EST Mindy Crane * Pain Score Answer Date of Assessment Author 7 10/05/2025 11:19 AM EST Wendi lopez Mindy * Vitals Timer Question Answer Date of Assessment Author Restart Vitals Timer Yes 10/05/2025 11:11 AM EST Mindy Gudino * Patient Position Answer Date of Assessment Author Sitting 10/05/2025 11:11 AM EST Rama Craneica * Pain Screening/Additional Assessments Question Answer Date of Assessment Author Pain Screening/Assessments Pain Screening 10/05/2025 1 1:19 AM Mindy Luis * Pain Screening Answer Date of Assessment Author 0-10 10/05/2025 11:19 AM EST Javon-Boarie ros Mindy * C-SSRS (Screener) Question Answer Date of Assessment Author Is patient awake, alert, and able/willing to answer questions appropriately? Yes 10/05/2025 11:21 AM EST Terese Mon ica 1. Wish to be (Past 1 Month) No 025 11:21 AM EST Javon-Carin Mindy 2. Non-Specific Active Suici omar Thoughts (Past 1 Month) No 10/05/2025 11:21 AM EST Javon-Boedmond Mindy 6. Suicidal Behavior (Lifetime) No 11:21 AM EST Javon-Boedmond Mindy * BP Answer Date of Assessment Author 119/80 10/05/2025 11:11 AM EST Javon-Boarie ros, Mindy * Temp Answer Date of Assessment Author 97.6 10/05/2025 11:11 AM EST Javon-Boarie ros Mindy * Temp src Answer Date of Assessment Author Oral 10/05/2025 11:11 AM EST Javon-Bok ros, Mindy * Pulse Answer Date of Assessment Author 78 10/05/2025 11:11 AM EST Javon-Bok ros, Mindy * Resp Answer Date of Assessment Author 16 10/05/2025 11:11 AM EST Javon-Bok ros, Mindy * SpO2 Answer Date of Assessment Author 97 10/05/2025 11:11 AM EST Javon-Bok ros, Mindy * Height Answer Date of Assessment Author 64 10/05/2025 11:11 AM EST Javon-Boarie ros Mindy * BMI (Calculated) Answer Date of Assessment Author 0 10/05/2025 11:11 AM EST Javon-Bok ros, Mindy * BP Location Answer Date of Assessment Author Left arm 10/05/2025 11:11 AM EST Javon-Bok ros Mindy * Restart Vitals Timer Answer Date of Assessment Author Yes 10/05/2025 11:11 AM EST Javon-Bok ros, Mindy * Calculated C-SSRS Risk Score (Lifetime/Recent) Answer Date of Assessment Author No Risk Indicated 10/05/2025 11:21 AM EST Mindy Holt * Weight in (lb) to have BMI = 25 Answer Date of Assessment Author 145.3 10/05/2025 11:11 AM EST Javon-Bok rosRamaMindy * Pain Score Answer Date of Assessment Author 7 10/05/2025 11:19 AM EST Javon-Bok ros Mindy * Patient Position Answer Date of Assessment Author Sitting 10/05/2025 11:11 AM EST Javon-Reed lopez Mindy * C-SSRS (Screener) Question Answer Date of Assessment Author Is patient awake, alert, and able/willing to answer questions appropriately? Yes 10/05/2025 11:21 AM EST Terese Mon ica 1. Wish to be (Past 1 Month) No 025 11:21 AM EST Javon-Rama Del Rosarioica 2. Non-Specific Active Suici omar Thoughts (Past 1 Month) No 10/05/2025 11:21 AM EST Javon-Carin Mindy 6. Suicidal Behavior (Lifetime) No 11:21 AM EST Mindy Gudino documented as of this encounter Mental Status * BP Answer Entry Date Author 119/80 10/05/2025 11:11 AM EST Javon-Bok ros Mindy * Temp Answer Entry Date Author 97.6 10/05/2025 11:11 AM EST Javon-Bok Rama lopezica * Temp src Answer Entry Date Author Oral 10/05/2025 11:11 AM EST Javon-Bok ros Mindy * Pulse Answer Entry Date Author 78 10/05/2025 11:11 AM EST Javon-Bok ros Mindy * Resp Answer Entry Date Author 16 10/05/2025 11:11 AM EST Javon-Bok ros Mindy * SpO2 Answer Entry Date Author 97 10/05/2025 11:11 AM EST Javon-Bok ros Mindy * Height Answer Entry Date Author 64 10/05/2025 11:11 AM EST Javon-Boarie lopez Mindy * BMI (Calculated) Answer Entry Date Author 0 10/05/2025 11:11 AM EST Javon-Bok Rama lopezica * Initial Excess Weight Answer Entry Date Author -54.43 10/05/2025 11:11 AM EST Javon-BoRama makiica * IBW in lbs (Bariatric) Answer Entry Date Author 120 10/05/2025 11:11 AM EST Javon-Bok ros, Mindy * IBW in kg (Bariatric) Answer Entry Date Author 54.43 10/05/2025 11:11 AM EST Javon-Bok ros, Mindy * BMI (Calculated) Answer Entry Date Author 0 10/05/2025 11:11 AM EST Javon-Bok ros, Mindy * BP Location Answer Entry Date Author Left arm 10/05/2025 11:11 AM EST Javon-Bok ros, Mindy * IBW/kg (Calculated) Male Answer Entry Date Author 59.2 10/05/2025 11:11 AM EST Jaovn-Bok ros, Mindy * IBW/kg (Calculated) Female Answer Entry Date Author 54.7 10/05/2025 11:11 AM EST Javon-Bok ros, Mindy * Restart Vitals Timer Answer Entry Date Author Yes 10/05/2025 11:11 AM EST Javon-Bok ros, Mindy * IBW/kg (Calculated) Answer Entry Date Author 54.7 10/05/2025 11:11 AM EST Javon-Bok ros Mindy * Calculated C-SSRS Risk Score (Lifetime/Recent) Answer Entry Date Author No Risk Indicated 10/05/2025 11:21 AM EST Javon-B Rama hammondica * Restart Pain Assessment Timer Answer Entry Date Author Yes 10/05/2025 11:19 AM EST Javon-Bok ros Mindy * Weight in (lb) to have BMI = 25 Answer Entry Date Author 145.3 10/05/2025 11:11 AM EST Javon-Bok ros Mindy * BMI (Calculated) Answer Entry Date Author 0 10/05/2025 11:11 AM EST Javon-Bok ros, Mindy * Initial Excess Weight Answer Entry Date Author -54.43 10/05/2025 11:11 AM EST Javon-Bok ros, Mindy * IBW in kg (Bariatric) Answer Entry Date Author 54.43 10/05/2025 11:11 AM EST Javon-Bok ros, Mindy * IBW in lb (Bariatric) Answer Entry Date Author 120 10/05/2025 11:11 AM EST Javon-Bok ros, Mindy * Temp (in Celsius) for NONDALTON IV Answer Entry Date Author 36.4 10/05/2025 11:11 AM EST Javon-Bok ros, Mindy * IBW/kg (Calculated) Answer Entry Date Author 54.7 10/05/2025 11:11 AM EST Javon-Bok ros, Mindy * Adult Low Range Vt 6mL/kg Answer Entry Date Author 328.2 10/05/2025 11:11 AM EST Javon-Bok ros, Mindy * Adult Moderate Range Vt 8mL/kg Answer Entry Date Author 437.6 10/05/2025 11:11 AM EST Javon-Bok ros, Mindy * Adult High Range Vt 10mL/kg Answer Entry Date Author 547 10/05/2025 11:11 AM EST Javon-Bok ros, Mindy * Pain Score Answer Entry Date Author 7 10/05/2025 11:19 AM EST Javon-Bok ros, Mindy * BP Cuff Size Answer Entry Date Author Adult 10/05/2025 11:11 AM EST Javon-Bok ros, Mindy * Vitals Timer Question Answer Entry Date Author Restart Vitals Timer Yes 10/05/2025 11:11 AM EST Javon-Bokros, Mindy * Patient Position Answer Entry Date Author Sitting 10/05/2025 11:11 AM EST Javon-Bok ros, Mindy * Pain Screening Answer Entry Date Author 0-10 10/05/2025 11:19 AM EST Javon-Bok ros, Mindy * C-SSRS (Screener) Question Answer Entry Date Author Is patient awake, alert, and able/willing to answer questions appropriately? Yes 10/05/2025 11:21 AM EST Javon-Carin Mon ica 1. Wish to be (Past 1 Month) No 025 11:21 AM EST Javon-Bokros, Mindy 2. Non-Specific Active Suici omar Thoughts (Past 1 Month) No 10/05/2025 11:21 AM EST Javon-Bokros, Mindy 6. Suicidal Behavior (Lifetime) No 11:21 AM EST Javon-Carin Mindy documented in this encounter Miscellaneous Notes * Progress Notes - Rodolfo Rhoades MD - 10/05/2025 11:00 AM EST Office Progress Note Subjective Veronica Weiss is a 50 y.o. female who presents for Follow-up (Left leg bothersome more so than right,needs to get into PT and neurology ) and Care Gap Closure (Wants Flu and Pneumonia vaccines if possible; postpone Covid vaccine). History of Present Illness The patient presents for evaluation of rhabdomyolysis. She reports a persistent open wound on her foot since hospital discharge, with sharp, burning pain radiating up her leg, especially at night. Difficulty raising her ankle and numbness in the area arenoted. She continues gabapentin and has noticed a return of sensation in her toes, particularly when wearing shoes, accompanied by burning. Pain in her toes and numbness in her hands worsen in cold temperatures. She seeks advice on home care measures to prevent complications and recalls being informed of an infection in her right foot during her hospital stay. No history of stroke, but mentions occasional falls. Sharp pain in her fingertips when opening objects is attributed to nerve pain. She is right-handed but notes increased strength in her left hand recently. She uses a wheelchair for home mobility. Previously tried Cymbalta but discontinued due to side effects. Managing symptoms with gabapentin. She experiences unusual pains disrupting sleep, suspecting a fracture. Burning sensation in the front part of her foot is present, but she can bear weight on it. Vibration from car travel exacerbatesfoot pain. She had a minor cold 3 weeks ago, resolved without complications. Had pneumonia twice last year. Social History: Sleep: Reports disrupted sleep due to pain The following sections have been reviewed and updated during this encounter: Tobacco Allergies Meds Problems Med Hx Surg Hx OB Status Fam Hx Objective Blood pressure 119/80, pulse 78, temperature 36.4 ??C (97.6 ??F), temperature source Oral, resp. rate 16, height 1.626 m (5' 4 ), SpO2 97%, not currently . Body mass index is 23.86 kg/m??. Physical Exam Constitutional: Appearance: Normal appearance. She is not ill-appearing. HENT: Head: Normocephalic and atraumatic. Cardiovascular: Rate and Rhythm: Normal rate and regular rhythm. Heart sounds: Normal heart sounds. No murmur heard. Pulmonary: Effort: Pulmonary effort is normal. No respiratory distress. Breath sounds: Normal breath sounds. No wheezing or rhonchi. Neurological: Mental Status: She is alert. Sensory: Sensory deficit present. Motor: Weakness present. Gait: Gait abnormal. Psychiatric: Mood and Affect: Mood normal. Behavior: Behavior normal. Assessment/Plan Diagnoses and all orders for this visit: Non-traumatic rhabdomyolysis - Creatine Kinase (CK), Total Essential hypertension - Comprehensive Metabolic Panel, Plasma Nerve pain - Comprehensive Metabolic Panel, Plasma Elevated CK - Creatine Kinase (CK), Total Assessment & Plan 1. Rhabdomyolysis: - Symptoms likely residual effects of rhabdomyolysis, potentially linked to neuropathy. - CK levels improved but remain above normal. Liver function tests show positive recovery trend. - Order blood work to monitor CK levels and electrolytes. - Initiate referral for home physical therapy. 2. Neuropathy: - Experiencing nerve pain, including burning and sharp pains, likely due to nerve recovery. - On maximum dose of gabapentin. - Consider neurology referral for further evaluation. - Discussed adding Cymbalta, but previous side effects reported. 3. Health Maintenance: - Discussed influenza and pneumonia vaccines. - Decided to postpone vaccinations to avoid potential side effects. - Contact clinic if ill. Follow-up: Patient to follow up on 10/26/2025. Verbal consent was obtained to use ambient listening technology to assist in the documentation of the encounter: yes Note to patient: The 21st Century Cures [...] Description 12/08/2025 11:20 AM EST Office Visit [facility] [address] [address] Rdoolfo Rhoades MD [address] [place] [address] Scheduled Referrals Name Type Priority Associated Diagnoses Order Schedule Ambulatory referral to Physical Therapy Outpatient Referral Routine Non-traumatic rhabdomyolysis Elevated CK Generalized weakness 1 Occurrences starting 10/06/2025 until 04/09/2027 documented as of this encounter Procedures Procedure Name Priority Date/Time Associated Diagnosis Comments CREATINE KINASE, TOTAL, PLASMA Routine 10/05/2025 12:07 PM EST Non-traumatic rhabdomyolysis Elevated CK COMPREHENSIVE METABOLIC PANEL, PLASMA Routine 10/05/2025 12:07 PM EST Essential hypertension Nerve pain documented in this encounter Results * (ABNORMAL) Comprehensive Metabolic Panel, Plasma (10/05/2025 12:07 PM EST) Glucose, Plasma 86 74 - 99 mg/dL 10/05/2025 7:43 PM EST [facility] BUN, Plasma 9 7 - 21 mg/dL 10/05/2025 7:43 PM EST [facility] Creatinine, Plasma 0.58(L) 0.60 - 1.10 mg/dL 10/05/2025 7:43 PM EST [facility] BUN/Creatinine Ratio 16 10/05/2025 7:43 PM EST [facility] Sodium, Plasma 138 136 - 145 mmol/L 10/05/2025 7:43 PM EST [facility] Potassium, Plasma 4.3 3.6 - 4.9 mmol/L 10/05/2025 7:43 PM EST [facility] Chloride, Plasma 99 97 - 107 mmol/L 10/05/2025 7:43 PM EST [facility] CO2, Plasma 29 22 - 29 mmol/L 10/05/2025 7:43 PM EST [facility] Anion Gap 10 6 - 16 mmol/L 10/05/2025 7:43 PM EST [facility] Total Calcium, Plasma 9.7 8.9 - 10.2 mg/dL 10/05/2025 7:43 PM EST [facility] Total Protein 7.4 6.3 - 7.9 g/dL 10/05/2025 7:43 PM EST [facility] Albumin, Plasma 3.6 3.5 - 5.2 g/dL 10/05/2025 7:43 PM EST [facility] AST, Plasma 38(H) 10 - 35 U/L 10/05/2025 7:43 PM EST [facility] ALT, Plasma 19 10 - 35 U/L 10/05/2025 7:43 PM EST [facility] Alkaline Phosphatase, Plasma 130(H) 35 - 104 U/L 10/05/2025 7:43 PM EST [facility] Total Bilirubin, Plasma 0.3 0.2 - 1.1 mg/dL 10/05/2025 7:43 PM EST [facility] eGFRcr 111.8 mL/min/1.7 3m*2 10/05/2025 7:43 PM EST [facility] Comment:Reported eGFRcr in m L/min/1.73m2 is based the CKD-EPI 2020 equation that does not use a race coefficient. Blood Venous blood specimen / Unknown Venipuncture / Unknown 10/05/2025 12:07 PM EST 10/05/2025 12:08 PM EST us Rodolfo Rhoades MD LAB BLOOD ORDERABLES Final Res ult [facility] [address] [place] [address] * Creatine Kinase (CK), Total (10/05/2025 12:07 PM EST) Creatine Kinase, Plasma 85 37 - 168 U/L 10/05/2025 7:43 PM EST [facility] Blood Venous blood specimen / Unknown Venipuncture / Unknown 10/05/2025 12:07 PM EST 10/05/2025 12:08 PM EST us Rodolfo Rhoades MD LAB BLOOD ORDERABLES Final Res ult [facility] [address] [place] [address] documented in this encounter Visit Diagnoses Diagnosis Non-traumatic rhabdomyolysis- Primary Essential hypertension Unspecified essential hypertension Nerve pain Unspecified neuralgia, neuritis, and radiculitis Elevated CK Other nonspecific abnormal serum enzyme levels Generalized weakness documented in this encounter Additional Health Concerns Assessment Noted Time PHQ-9 Depression Total Score: 025 9:50 AM EST A fall risk assessment has been complete d for the patient 10/02/2025 9:55 AM EST A Body Mass Index follow-up plan has been documented for the patient 10/02/2025 10:21 AM EST documented as of this encounter Care Teams Plant Control Aide Relationship Specialty Start Date End Date Rodolfo Rhoades MD [address] [place] [address] PCP - General Family Medicine 02/02/25 So Caicedo LPN [employer] [place] [address] None TCM Nurse 09/07/25 10/07/25 documented as of this encounter
--- OUTSIDE RECORDS SUMMARY | 2025-11-01 10:40 | XMS_ITS | Encounter Summary ---
Author Organization [facility] Address [facility] [place] [place] [address] Care Team Providers Care Biology Specialist Name Role Phone Rodolfo Rhoades MD Primary Care Provider [phone] Keyonna Goff Unavailable Unavailable Reason for Referral * Referral to Case Management (Routine) - Authorized Specialty Diagnoses / Procedures Referred By Contac t Referred To Contact Case Management / Primary Care Diagnoses Transportation insecurity Rodolfo Rhoades MD [address] [place] [address] Phone: tel: fax: Referral ID Status Reason Start Date Expiration Date Visits Requested Visits Authorized [id number] Authorized Other Co-Managemen t of Problem 11/01/2025 05/03/2027 1 1 * Consultation (Routine) - Authorized Specialty Diagnoses / Procedures Referred By Contac t Referred To Contact Cardiology Diagnoses Chronic atrial fibrillation (CMS/HCC) Rodolfo Rhoades [place] [facility] [place] [address] Phone: tel: fax: Referral ID Status Reason Start Date Expiration Date Visits Requested Visits Authorized [id number] Authorized Specialty Services Required 11/01/2025 05/03/2027 1 1 * Imaging (Routine) - Authorized Specialty Diagnoses / Procedures Referred By Contac t Referred To Contact Diagnoses Chronic nonintractable headache, unspecified headache type Procedures MR Head wo IV Contrast Rodolfo Rhoades MD [address] [place] [address] Phone: tel: fax: Referral ID Status Reason Start Date Expiration Date V isits Requested Visits Authorized [id number] Authorized 11/01/2025 05/03/2027 1 1 Reason for Visit * Reason Comments Weakness - Generalized 3 wk follow up - body hurts, always in pain. Also has sore throat, headaches are coming back worse. Nothing helps the pain. Encounter Details Date Type Department Care Team (Latest Contact Info) Description 11/01/2025 10:40 AM EST Office Visit [facility] [address] [place] [address] Rodolfo Rhoades MD [address] [place] [address] Sore throat (Primary Dx); Moderate [...] a care home (including now)? No 08/09/2025 [facility] Utilities Answer Date Recorded In [...] Risk Indicated 11/01/2025 11:08 AM EST Gabo Kyala * Weight in (lb) to have BMI [...] Gabo Kayla * Temp (in Celsius) for TONKAWA IV Answer Date of Assessment Author 36.7 [...] Gabo Kayla * Temp (in Celsius) for TONKAWA IV Answer Entry Date Author 36.7 11/01/2025 [...] refilled: Tylenol Mycostatin Albuterol Inhaler Fluticasone Nasal [place] Additional notes: na Clinical Intervention: Immunization recommendations and Lab work needed (A1c, lipids, etc) Patient may need CBC with diff, Lipids, TSH with reflex, UA with reflex. Note abnormal cytoplasmic pattern Preferred Pharmacy: [facility] Additional Notes: Patient c/o pain, weakness, low BP and pulse. Patient requests a script for a new Blood Pressure Monitor and pulse OX. Patient verbalized understanding of Pre-Visit Review. Patient to follow up with provider at upcoming clinic visit. Eloise Singletary RN,PASSENGER SERVICE SUPERVISOR Pharmacy Patient Support Services * Progress Notes [...] to low blood pressure. Doesn't trust current paste mixer and hasn't seen them re cently. Occasional [...] exposure. Having trouble with transportation, lives in [place] and daughter has to drive. She is now with PT at [facility]. Is starting to feel achy again [...] 3 times a day. - nystatin (Mycostatin) [id number] UNIT/GM powder; Apply to groin twice a [...] Description 12/08/2025 11:20 AM EST Office Visit [facility] [address] [place] [address] Rodolfo Rhoades MD [address] [place] [address] Scheduled Orders Name Type Priority Associated Diagnoses Orde r Schedule MR Head wo IV Contrast Imaging Routine Chronic nonintractable headache, unspecified headache type Expected: 11/01/2025 (Approximate), Expires: 05/05/2027 Scheduled Referrals Name Type Priority Associated Diagnoses Orde r Schedule Ambulatory referral to Cardiology Outpatient Referral Routine Chronic atrial fibrillation (CMS/HCC) 1 Occurrences starting 11/01/2025 until 05/05/2027 Ambulatory Referral to Community [facility] Work Outpatient Referral Routine Transportation insecurity 1 [...] - 150 ng/mL 11/01/2025 7:[address] [facility] Blood Venous blood specimen / Unknown Venipuncture / Unknown 11/01/2025 1:03 PM EST 11/01/2025 1:03 PM EST us Rodolfo Rhoades MD LAB BLOOD ORDERABLES Final Res ult [facility] [address] [place] [address] * Iron, Plasma (11/01/2025 1:03 PM EST) Iron, Plasma 79 30 - 160 ug/dL 11/01/2025 7:[address] [facility] Blood Venous blood specimen / Unknown Venipuncture / Unknown 11/01/2025 1:03 PM EST 11/01/2025 1:03 PM EST Rodolfo Rhoades MD LAB BLOOD ORDERABLES Final Res ult Performing Organization Address [facility] de Phone Number [facility] [address] [place] [address] * (ABNORMAL) Protime-INR (11/01/2025 1:03 PM EST) Prothrombin Time 18.6(H) 12.0 - 14.3 sec LAB COAGULATION METHOD 11/01/2025 7:[address] [facility] INR 1.5(H) 0.9 - 1.1 LAB COAGULATION METHOD 11/01/2025 7:[address] [facility] Blood Venous blood specimen / Unknown Venipuncture / Unknown 11/01/2025 1:03 PM EST 11/01/2025 1:[address] [facility] - 11/01/2025 7:51 PM EST OPTIMAL INR RANGES FOR PATIENT ON ORAL ANTICOAGULANT THERAPY Prevention of venous thromboembolism INR 2.0 to 3.0 In patients with heart disease: Atrial fibrillation INR 2.0 to 3.0 Valvular heart disease INR 2.0 to 3.0 Tissue heart valves INR 2.0 to 3.0 Mechanical prosthetic valves INR 2.5 to 3.5 Prevention of recurrent ID INR 2.5 to 3.5 Rodolfo Rhoades MD LAB BLOOD ORDERABLES Final Res ult Performing Organization Address [facility] Co de Phone Number [facility] [address] [place] [address] * (ABNORMAL) Creatine Kinase (CK), Total (11/01/2025 1:03 PM EST) Creatine Kinase, Plasma 224(H) 37 - 168 U/L 11/01/2025 7:[address] [facility] Blood Venous blood specimen / Unknown Venipuncture / Unknown 11/01/2025 1:03 PM EST 11/01/2025 1:03 PM EST us Rodolfo Rhoades MD LAB BLOOD ORDERABLES Final Res ult [facility] [address] [place] [address] * (ABNORMAL) CBC and Differential (11/01/2025 1:03 PM EST) WBC Count 9.43 3.70 - 10.30 10*3/uL LAB HEMATOLOGY METHOD 11/01/2025 7:[address] [facility] RBC Count 4.43 3.90 - 5.20 10*6/uL LAB HEMATOLOGY METHOD 11/01/2025 7:[address] [facility] HGB 13.1 11.2 - 15.7 g/dL LAB HEMATOLOGY METHOD 11/01/2025 7:[address] [facility] HCT 42.0 34.0 - 45.0 % LAB HEMATOLOGY METHOD 11/01/2025 7:[address] [facility] Platelet Count 314 155 - 369 10*3/uL LAB HEMATOLOGY METHOD 11/01/2025 7:[address] [facility] MCV 95 79 - 98 fL LAB HEMATOLOGY METHOD 11/01/2025 7:[address] [facility] MCH 29.6 26.0 - 32.0 pg LAB HEMATOLOGY METHOD 11/01/2025 7:[address] [facility] MCHC 31.2 30.7 - 35.5 g/dL LAB HEMATOLOGY METHOD 11/01/2025 7:[address] [facility] RDW 12.7 11.5 - 14.5 % LAB HEMATOLOGY METHOD 11/01/2025 7:[address] [facility] MPV 10.6 8.8 - 12.5 fL LAB HEMATOLOGY METHOD 11/01/2025 7:[address] [facility] nRBC 0.0 <=0.0 per 100 WBCs LAB HEMATOLOGY METHOD 11/01/2025 7:[address] [facility] Differential Type Automated LAB HEMATOLOGY METHOD 11/01/2025 7:[address] [facility] Neutrophils % 65 % LAB HEMATOLOGY METHOD 11/01/2025 7:[address] [facility] Lymphocytes % 19 % LAB HEMATOLOGY METHOD 11/01/2025 7:[address] [facility] Monocytes % 8 % LAB HEMATOLOGY METHOD 11/01/2025 7:[address] [facility] Eosinophils % 8 % LAB HEMATOLOGY METHOD 11/01/2025 7:[address] [facility] Basophils % 0 % LAB HEMATOLOGY METHOD 11/01/2025 7:[address] [facility] Immature Granulocytes % 0 % LAB HEMATOLOGY METHOD 11/01/2025 7:[address] [facility] Neutrophils Absolute 6.03 1.60 - 6.10 10*3/uL LAB HEMATOLOGY METHOD 11/01/2025 7:[address] [facility] Lymphocytes Absolute 1.83 1.20 - 3.90 10*3/uL LAB HEMATOLOGY METHOD 11/01/2025 7:[address] [facility] Monocytes Absolute 0.75 0.30 - 0.90 10*3/uL LAB HEMATOLOGY METHOD 11/01/2025 7:[address] [facility] Eosinophils Absolute 0.75(H) 0.00 - 0.50 10*3/uL LAB HEMATOLOGY METHOD 11/01/2025 7:[address] [facility] Basophils Absolute 0.04 0.00 - 0.10 10*3/uL LAB HEMATOLOGY METHOD 11/01/2025 7:[address] [facility] Immature Granulocytes Absolute 0.03 0.00 - 0.06 10*3/uL LAB HEMATOLOGY METHOD 11/01/2025 7:[address] [facility] Blood Venous blood specimen / Unknown Venipuncture / Unknown 11/01/2025 1:03 PM EST 11/01/2025 1:[address] [facility] - 11/01/2025 7:00 PM EST Therapeutic decision making should be based on absolute values, rather than percentages. us Rodolfo Rhoades MD LAB BLOOD ORDERABLES Final Res ult [facility] [address] [place] [address] * Free T4, Plasma (11/01/2025 1:03 PM EST) Free T4, Plasma 1.3 0.8 - 1.7 ng/dL 11/01/2025 7:[address] [facility] Blood Venous blood specimen / Unknown Venipuncture / Unknown 11/01/2025 1:03 PM EST 11/01/2025 1:[address] [facility] - 11/01/2025 7:25 PM EST Free T4 Trimester Specific Ranges 1st Trimester 0.9 - 1.50 ng/dL 2nd Trimester 0.7 - 1.40 ng/dL 3rd Trimester 0.7 - 1.24 ng/dL Rodolfo Rhoades MD LAB BLOOD ORDERABLES Final Res ult Performing Organization Address City/[facility]/ZIP Co de Phone Number [facility] [address] [place] [address] * Thyroid Stimulating Hormone, Plasma (11/01/2025 1:03 PM EST) Thyroid Stimulating Hormone, Plasma 1.31 0.40 - 4.20 uIU/mL 11/01/2025 7:[address] [facility] Blood Venous blood specimen / Unknown Venipuncture / Unknown 11/01/2025 1:03 PM EST 11/01/2025 1:[address] [facility] - 11/01/2025 7:25 PM EST Trimester Specific Ranges TSH ( IU/mL) 1st Trimester 0.1 - 3.0 2nd Trimester 0.19 - 4.06 3rd Trimester 0.3 - 3.7 Rodolfo Rhoades MD LAB BLOOD ORDERABLES Final Res ult Performing Organization Address City/[facility]/ZIP Co de Phone Number [facility] [address] [place] [address] * (ABNORMAL) Comprehensive Metabolic Panel, Plasma (11/01/2025 1:03 PM EST) Glucose, Plasma 69(L) 74 - 99 mg/dL 11/01/2025 7:[address] [facility] BUN, Plasma 6(L) 7 - 21 mg/dL 11/01/2025 7:[address] [facility] Creatinine, Plasma 0.64 0.60 - 1.10 mg/dL 11/01/2025 7:[address] [facility] BUN/Creatinine Ratio 9 11/01/2025 7:[address] [facility] Sodium, Plasma 136 136 - [...] LAB BLOOD ORDERABLES Final Res ult [facility] [address] [place] [address] * POCT SARS-CoV-2 COVID-19 Influenza A,B (11/01/2025 12:36 PM EST) POCT Influenza A PCR Not Detected Not Detected POCT Influenza B PCR Not Detected Not Detected POCT COVID 19 PCR Not Detected Not Detected POCT COVID/Flu A,B Kit Lot [id number] POCT COVID/FLU A,B Kit Expiration 01/27/2027 Nasopharyngeal Swab Nasopharyngeal structure / Unknown 11/01/2025 12:36 PM EST us Rodolfo Rhoades MD POINT OF CARE TEST ENTER/EDIT ORDERABLES Final Result * POCT Strep A PCR (11/01/2025 12:34 PM EST) POCT Strep A PCR Not Detected Not Detected Kit Lot Number [id number] Kit Expiration Date 03/29/2027 Swab Structure of anterior region of neck / Unknown 11/01/2025 12:34 PM EST us Rodolfo Rhoadse MD POINT OF CARE TEST ENTER/EDIT ORDERABLES [...] documented as of this encounter Care Teams Biology Specialist Relationship Specialty Start Date End Date Rodolfo Rhoades MD [address] [place] [address] PCP - General Family Medicine 02/02/25 Keyonna Goff Community Health Worker 11/01/25 5 documented as of this encounter
--- OUTSIDE RECORDS SUMMARY | 2025-11-28 13:09 | XMS_ITS | Encounter Summary ---
Author Organization [facility] Address [facility] [place] [address] Care Team Providers Care Diet Therapist Name Role Phone Georgette Moore APRN Primary Care Provider [phone] Veronica Goodwin Unavailable Unavailable Margaret Ro Unavailable Unavailable Rodolfo Rhoades MD Primary Care Provider [phone] [place], Marianne Unavailable Unavailable Ariana Bagley Unavailable Unavailable So Caicedo LPN Unavailable Unavailable Keyonna Goff Unavailable Unavailable Reason for Visit * Reason Comments Med Refill Encounter Details Date Type Department Care Team (Late st Contact Info) Description 12/21/2021 Refill [facility] Community [facility] [address] [place] [address] Georgette Moore APRN [address] [place] [address] Chronic fatigue Social History Tobacco [...] Description 12/08/2025 11:20 AM EST Office Visit [facility] [address] [place] [address] Rodolfo Rhoades MD [address] [facility] [place] [address] documented as of this encounter [...] documented as of this encounter Care Teams Diet Therapist Relationship Specialty Start Date End Date Georgette Moore APRN [address] [place] [address] PCP - General 04/12/21 02/01/25 Rodolfo Rhoades MD [address] [place] [address] PCP - General Family Medicine 02/02/25 [place] [address] TCM Nurse 07/25/24 08/25/24 Margaret Ro Community Health Worker 07/27/24 4 Wages, Marianne Clinical Net Application Support Specialist 07/14/25 07/28/25 Ariana Bagley Community Health Worker 07/14/25 07/14/25 So Caicedo, OIL PLANT OPERATOR VALUE-[place] [address] None TCM Nurse 09/07/25 10/07/25 Keyonna Goff Community Health Worker 11/01/25 5 documented as of this encounter
--- OUTSIDE RECORDS SUMMARY | 2025-11-28 13:09 | XMS_ITS | Encounter Summary ---
Author Organization Healthcare Address [address] [id number] Care Team Providers Care Metallurgy Laboratory Technician Name Role Phone Rodolfo Rhoades MD Primary Care Provider [phone] So Caicedo LPN Unavailable Unavailable Keyonna Goff Unavailable Unavailable Encounter Details Date Type Department Care Team (Late st Contact Info) Description 09/07/2025 Results Follow-Up [facility] Inpatient Pharmacy [address] [place] [phone] Annemarie Grover, [place] [address] Social History Tobacco Use Types Packs/Day Years [...] a skilled nursing (including now)? No 08/09/2025 [facility] Utilities Answer Date Recorded In [...] Description 12/08/2025 11:20 AM EST Office Visit [facility] [address] [place] [address] Rodolfo Rhoades MD [address] [place] [address] documented as of this encounter [...] documented as of this encounter Care Teams Metallurgy Laboratory Technician Relationship Specialty Start Date End Date Rodolfo Rhoades MD [address] [place] [address] PCP - General Family Medicine 02/02/25 So Caicedo LPN VAL[employer] [place] [address] None TCM Nurse 09/07/25 10/07/25 Keyonna Goff Community Health Worker 11/01/25 5 documented as of this encounter
--- OUTSIDE RECORDS SUMMARY | 2025-11-28 13:09 | XMS_ITS | Encounter Summary ---
Author Organization Healthcare Address [place] [place] [address] Care Team Providers Care Lehr Cutter Name Role Phone Rodolfo Rhoades MD Primary Care Provider [phone] So Caicedo LPN Unavailable Unavailable Keyonna Goff Unavailable Unavailable Encounter Details Date Type Department Care Team (Late st Contact Info) Description 09/20/2025 Results Follow-Up [facility] Medicine [address] [place] [address] Rodolfo Rhoades MD [address] [place] [address] Social History Tobacco Use Types [...] in a penitentiary (including now)? No 08/09/2025 [facility] [...] Office Visit [facility] [address] [place] [address] Rodolfo Rhoades MD [address] [place] [address] documented as of this encounter [...] documented as of this encounter Care Teams Lehr Cutter Relationship Specialty Start Date End Date Rodolfo Rhoades MD [address] [place] [address] PCP - General Family Medicine 02/02/25 So Caicedo LPN VALUE-BASED [place] [address] None TCM Nurse 09/07/25 10/07/25 Keyonna Goff Community Health Worker 11/01/25 5 documented as of this encounter
--- OUTSIDE RECORDS SUMMARY | 2025-11-28 13:09 | XMS_ITS | Encounter Summary ---
Author Organization [facility] Address [address] [id number] Care Team Providers Care Associate Professor Plant Pathology Name Role Phone Georgette Moore APRN Primary Care Provider [phone] Veronica Goodwin Unavailable Unavailable Margaret Ro Unavailable Unavailable Rodolfo Rhoades MD Primary Care Provider [phone] [place], Marianne Unavailable Unavailable Ariana Bagley Unavailable Unavailable So Caicedo LPN Unavailable Unavailable Keyonna Goff Unavailable Unavailable Encounter Details Date Type Department Care Team (Late st Contact Info) Description 02/06/2022 Outside Procedure External Location [address] [place] [phone] Provider, Swapnil [place] Social History Tobacco Use [...] Health - [facility] [address] [place] [address] Rodolfo Rhoades MD [address] [place] [address] documented as of this encounter Procedures Procedure Name Priority Date/Time Associated Diagnosis Comments XR LUMBAR SPINE 2 OR 3 VIEWS 02/06/2022 2:09 PM EST documented in this encounter Results * XR Lumbar Spine 2 or 3 Views (02/06/2022 2:09 PM EST) Anatomical Region Laterality Modality Spine, L-spine Radiographic Tierra ging 02/06/2022 2:09 PM EST Narrative 02/06/2022 3:19 [place] [address] Name: VERONICA ALVAREZ Exam Date: 02/06/2022 : 1975 Age 46 Gender: F Physician: HORACE RYAN Facility: [facility] Facility HSV: Outpatient Exam: LUMBAR SPINE 2 [...] DELEON 2022-02-06 15:07:32 Procedure Note Provider, Generic [place] - 02/06/2022 [place] [address] Name: VERONICA ALVAREZ Exam Date: 02/06/2022 : 1975 Age 46 Gender: F Physician: HORACE RYAN Facility: [facility] Facility HSV: Outpatient Exam: LUMBAR SPINE 2 [...] by GADIEL DELEON 2022-02-06 15:07:32 us Generic [place] Provider IMG XR PROCEDURES Fi nal Result [...] of this encounter Care Teams Associate Professor Plant Pathology Relationship Specialty Start Date End Date Georgette Moore APRN [address] [place] [address] PCP - General 04/12/21 02/01/25 Rodolfo Rhoades MD [address] [place] [address] PCP - General Family Medicine 02/02/25 [place] [address] TCM Nurse 07/25/24 08/25/24 Margaret Ro Community Health Worker 07/27/24 4 Wages, Marianne Clinical Software Architect 07/14/25 07/28/25 Ariana Bagley Community Health Worker 07/14/25 07/14/25 So Caicedo LPN VALUE[employer]ED [place] [address] None TCM Nurse 09/07/25 10/07/25 Keyonna Goff Community Health Worker 11/01/25 5 documented as of this encounter
--- OUTSIDE RECORDS SUMMARY | 2025-11-28 13:09 | XMS_ITS | Encounter Summary ---
Author Organization Healthcare Address [address] [id number] Care Team Providers Care Admissions Advisor Name Role Phone Rodolfo Rhoades MD Primary Care Provider [phone] So Caicedo LPN Unavailable Unavailable Keyonna Goff Unavailable Unavailable Encounter Details Date Type Department Care Team (Late st Contact Info) Description 08/08/2025 Outside Procedure External Location [address] [place] [phone] Provider, Swapnil [place] Social History Tobacco Use Types Packs/Day Years [...] in a fdc (including now)? No 08/09/2025 [facility] Utilities Answer Date Recorded In [...] Description 12/08/2025 11:20 AM EST Office Visit [facility] [address] [place] [address] Rodolfo Rhoades MD [address] [place] [address] documented as of this encounter Procedures Procedure Name Priority Date/Time Associated Diagnosis Comments CT ABDOMEN PELVIS W IV CONTRAST 08/08/2025 10:24 AM EDT documented in this encounter Results * CT Abdomen Pelvis w IV Contrast (08/08/2025 10:24 AM EDT) Anatomical Region Laterality Modality Abdomen, Pelvis Computed Tomogra phy 08/08/2025 10:2 4 AM EDT Narrative 08/08/2025 2:59 PM EDT [address] [address] Name: HAILEY ALVAREZ Exam Date: 08/08/2025 : 1975 Age 49 years Gender: F Physician: LOBO LOWERY Facility: [facility] Facility HSV: Inpatient Exam: CT ABD [...] Thank you for referring HAILEY ALVAREZ to [facility]. Legally authenticated by AVI Colin 2025-08-08 14:56:42 Procedure Note Provider, [facility] - 08/08/2025 [place] [address] Name: HAILEY ALVAREZ Exam Date: 08/08/2025 : 1975 Age 49 years Gender: F Physician: LOBO LOWERY Facility: [facility] Facility HSV: Inpatient Exam: CT ABD PEL W EXAMINATION: CT ABDOMEN PELVIS WITH IV CONTRAST HISTORY: fall, inability to move left leg, severe rhabdomyolysis, r/ofx. COMPARISON: None. TECHNIQUE: Contiguous axial images through the abdomen and pelvis were acquired following the administration of intravenous contrast.Reconstructed images in the coronal and sagittal planes were reviewed. [facility] use dose modulation, iterative [...] Thank you for referring HAILEY ALVAREZ to [facility]. Legally authenticated by AVI Colin 2025-08-08 14:56:42 us Generic [place] Provider IMG CT PROCEDURES Fi nal Result [...] documented as of this encounter Care Teams Admissions Advisor Relationship Specialty Start Date End Date Rodolfo Rhoades MD [address] [place] [address] PCP - General Family Medicine 02/02/25 So Caicedo LPN VALUE-BASED [place] [address] None TCM Nurse 09/07/25 10/07/25 Keyonna Goff Community Health Worker 11/01/25 5 documented as of this encounter
--- OUTSIDE RECORDS SUMMARY | 2025-11-28 13:09 | XMS_ITS ---
Author Organization [facility] Address [address] [place] [address] Care Team Providers Care Direct Marketing Analyst Name Role Phone Rodolfo Rhoades MD Primary Care Provider [phone] Community Health Work Status:Closed (Closed) Program category:Care Coordination Start date:11/01/2025 Enrollment date:11/02/2025 End date:11/27/2025 Close reason:Patient graduated Overview This episode type is for outpatient Community Health Workers enrolling patients in their program. Continued Care and Services Coordination
--- OUTSIDE RECORDS SUMMARY | 2025-11-28 13:09 | XMS_ITS | Encounter Summary ---
Author Organization [facility] Address [address] [id number] Care Team Providers Care Drywall Taper Name Role Phone Georgette Moore APRN Primary Care Provider [phone] Veronica Goodwin Unavailable Unavailable Margaret Ro Unavailable Unavailable Rodolfo Rhoades MD Primary Care Provider [phone] [place], Marianne Unavailable Unavailable Ariana Bagley Unavailable Unavailable So Caicedo LPN Unavailable Unavailable Keyonna Goff Unavailable Unavailable Encounter Details Date Type Department Care Team (Late st Contact Info) Description 02/06/2022 Outside Procedure External Location [address] [place] [phone] Provider, Swapnil [place] Social History Tobacco Use [...] [facility] [address] [place] [address] Rodolfo Rhoades MD [address] [place] [address] documented as of this encounter Procedures Procedure Name Priority Date/Time Associated Diagnosis Comments XR CERVICAL SPINE 2 OR 3 VIEWS 02/06/2022 2:09 PM EST documented in this encounter Results * XR Cervical Spine 2 or 3 Views (02/06/2022 2:09 PM EST) Anatomical Region Laterality Modality Spine, C-spine Radiographic Tierra ging 02/06/2022 2:09 PM EST Narrative 02/06/2022 3:21 [place] [address] Name: VERONICA ALVAREZ Exam Date: 02/06/2022 : 1975 Age 46 Gender: F Physician: HORACE RYAN Facility: [facility] Facility HSV: Outpatient Exam: CERVICAL SPINE 2 [...] GADIEL DELEON 2022-02-06 15:08:51 Procedure Note Provider, [facility] - 02/06/[address] [id number] Name: VERONICA ALVAREZ Exam Date: 02/06/2022 : 1975 Age 46 Gender: F Physician: HORACE RYAN Facility: [facility] Facility HSV: Outpatient Exam: CERVICAL SPINE 2 [...] authenticated by GADIEL DELEON 2022-02-06 15:08:51 Generic [place] Provider IMG XR PROCEDURES Fi nal Result [...] documented as of this encounter Care Teams Drywall Taper Relationship Specialty Start Date End Date Georgette Moore APRN [address] [place] [address] PCP - General 04/12/21 02/01/25 Rodolfo Rhoades MD [address] [place] [address] PCP - General Family Medicine 02/02/25 [place] [address] TCM Nurse 07/25/24 08/25/24 Margaret Ro Community Health Worker 07/27/24 4 Wages, Marianne Clinical Installation And Repair Technician 07/14/25 07/28/25 Ariana Bagley Community Health Worker 07/14/25 07/14/25 So Caicedo LPN VALUE[employer] [place] [address] None TCM Nurse 09/07/25 10/07/25 Keyonna Goff Community Health Worker 11/01/25 5 documented as of this encounter
--- OUTSIDE RECORDS SUMMARY | 2025-11-28 13:09 | XMS_ITS | Encounter Summary ---
Author Organization Healthcare Address [address] [id number] Care Team Providers Care Civil Service Worker Name Role Phone Rodolfo Rhoades MD Primary Care Provider [phone] So Caicedo LPN Unavailable Unavailable Keyonna Goff Unavailable Unavailable Encounter Details Date Type Department Care Team (Late st Contact Info) Description 08/08/2025 Outside Procedure External Location [address] [place] [phone] Provider, Swapnil [place] Social History Tobacco Use Types Packs/Day Years [...] in a retirement (including now)? No 08/09/2025 [facility] Utilities Answer Date Recorded In the past [...] AM EST Office Visit [facility] [address] [place] [address] Rodolfo Rhoades MD [address] [place] [address] documented as of this encounter Procedures Procedure Name Priority Date/Time Associated Diagnosis Comments CT HIP LEFT W IV CONTRAST 08/08/2025 10:23 AM EDT documented in this encounter Results * CT Hip Left w IV Contrast (08/08/2025 10:23 AM EDT) Anatomical Region Laterality Modality Lower Extremities, Hip Left Computed Tomography 08/08/2025 10:2 3 AM EDT Narrative 08/08/2025 3:06 PM EDT [address] [address] Name: HAILEY ALVAREZ Exam Date: 08/08/2025 : 1975 Age 49 years Gender: F Physician: LOBO LOWERY Facility: [facility] Facility HSV: Inpatient Exam: CT LOWER EXT [...] Thank you for referring HAILEY ALVAREZ to [facility]. 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 COMPARISON: None. Procedure: Thin section axial images were obtained through the lower extremities after the administration of intravenous contrast..Reconstructed images in the sagittal and coronal planes were reviewed. [facility] use dose modulation, iterative [...] Thank you for referring HAILEY ALVAREZ to [facility]. Legally authenticated by AVI Colin 2025-08-08 15:01:48 us Generic [place] Provider IMG CT PROCEDURES Fi nal Result [...] documented as of this encounter Care Teams Civil Service Worker Relationship Specialty Start Date End Date Rodolfo Rhoades MD [address] [place] [address] PCP - General Family Medicine 02/02/25 So Caicedo LPN VALUE-[place]ED [place] [address] None TCM Nurse 09/07/25 10/07/25 Keyonna Goff Community Health Worker 11/01/25 5 documented as of this encounter
--- OUTSIDE RECORDS SUMMARY | 2025-11-28 13:09 | XMS_ITS | Encounter Summary ---
Author Organization Healthcare Address [address] [id number] Care Team Providers Care Cnc Cutting Operator Name Role Phone Rodolfo Rhoades MD Primary Care Provider [phone] So Caicedo LPN Unavailable Unavailable Keyonna Goff Unavailable Unavailable Encounter Details Date Type Department Care Team (Late st Contact Info) Description 08/07/2025 Outside Procedure External Location [address] [place] [address] Provider, Swapnil [place] Social History Tobacco Use Types Packs/Day Years [...] health care facility (including now)? No 08/09/[address] [facility] [address] [...] 11:20 AM EST Office Visit [facility] [address] [place] [address] Rodolfo Rhoades MD [address] [place] [address] documented as of this encounter Procedures Procedure Name Priority Date/Time Associated Diagnosis Comments ECHO, ADULT TRANSTHORACIC LIMITED W/ CONTRAST 08/07/2025 6:38 AM EDT documented in this encounter Results * Echo, Adult Transthoracic Limited w/ Contrast (08/07/2025 6:38 AM EDT) Anatomical Region Laterality Modality Ultrasound 08/07/2025 6:38 AM EDT Narrative 08/07/2025 12:51 PM EDT [address] [address] Name: VERONICA ALVAREZ Exam Date: 08/07/2025 : 1975 Age 49 years Gender: F Physician: JOSSE MONTENEGRO Facility: [facility] Facility HSV: Inpatient Exam: ECHO [...] stenosis with a valve area of 1.34 legal officer (Peak grad=31mmHg, Mean grad=16mmHg, LVOT grady=2.00cm, LVOT TVI=14.2cm, Ao TVI=33.3cm). The dimensionless index is 0.43. AV peak wgmnqzwg=205kl/sec. There is a Mechanical AV prosthesis. Tricuspid [...] to [facility]. Legally authenticated by PATTIE Yun 2025-08-07 12:49:32 Procedure Note Provider, Generic [place] - 08/07/2025 [address] [id number] Name: VERONICA ALVAREZ Exam Date: 08/07/2025 : 1975 Age 49 years Gender: F Physician: JOSSE MONTENEGRO Facility: [facility] Facility HSV: Inpatient Exam: ECHO [...] stenosis with a valve area of 1.34 legal officer (Peak grad=31mmHg, Mean grad=16mmHg, LVOT grady=2.00cm, LVOT TVI=14.2cm, Ao TVI=33.3cm). The dimensionless index is 0.43. AV peak indtjgyq=383yz/sec. There is a Mechanical AV prosthesis. Tricuspid [...] to [facility]. Legally authenticated by PATTIE Yun 2025-08-07 12:49:32 Generic [place] Provider CV ECHO PROCEDURES F inal Result [...] documented as of this encounter Care Teams Cnc Cutting Operator Relationship Specialty Start Date End Date Rodolfo Rhoades MD [address] [place] [address] PCP - General Family Medicine 02/02/25 So Caicedo LPN VAL[employer] [address] None TCM Nurse 09/07/25 10/07/25 Keyonna Goff Community Health Worker 11/01/25 5 documented as of this encounter
--- OUTSIDE RECORDS SUMMARY | 2025-11-28 13:09 | XMS_ITS | Encounter Summary ---
Author Organization [facility] Address [address] [id number] Care Team Providers Care Servicenow Administrator Developer Name Role Phone Georgette Moore APRN Primary Care Provider [phone] Veronica Goodwin Unavailable Unavailable Margaret Ro Unavailable Unavailable Rodolfo Rhoades MD Primary Care Provider [phone] [place], Marianne Unavailable Unavailable Ariana Bagley Unavailable Unavailable So Caicedo LPN Unavailable Unavailable Keyonna Goff Unavailable Unavailable Encounter Details Date Type Department Care Team (Late st Contact Info) Description 02/06/2022 Outside Procedure External Location [address] [place] [phone] Provider, Swapnil [place] Social History Tobacco Use [...] Description 12/08/2025 11:20 AM EST Office Visit [facility] [address] [place] [address] Rodolfo Rhoades MD [address] [place] [address] documented as of this encounter Procedures Procedure Name Priority Date/Time Associated Diagnosis Comments XR THORACIC SPINE 3 VIEWS 02/06/2022 2:09 PM EST documented in this encounter Results * XR Thoracic Spine 3 Views (02/06/2022 2:09 PM EST) Anatomical Region Laterality Modality Spine, T-spine Radiographic Tierra ging 02/06/2022 2:09 PM EST Narrative 02/06/2022 3:19 [place] [address] Name: VERONICA ALVAREZ Exam Date: 02/06/2022 : 1975 Age 46 Gender: F Physician: HORACE RYAN Facility: [facility] Facility HSV: Outpatient Exam: THORACIC SPINE [...] Thank you for referring VERONICA ALVAREZ to [facility]. Legally authenticated by GADIEL DELEON 2022-02-06 15:08:18 Procedure Note Provider, [facility] - 02/06/2022 [place] [address] Name: VERONICA ALVAREZ Exam Date: 02/06/2022 : 1975 Age 46 Gender: F Physician: HORACE RYAN Facility: [facility] Facility HSV: Outpatient Exam: THORACIC SPINE [...] Thank you for referring VERONICA ALVAREZ to [facility]. Legally authenticated by GADIEL DELEON 2022-02-06 15:08:18 Generic [place] Provider IMG XR PROCEDURES Fi nal Result [...] documented as of this encounter Care Teams Servicenow Administrator Developer Relationship Specialty Start Date End Date Georgette Moore APRN [address] [place] [address] PCP - General 04/12/21 02/01/25 Rodolfo Rhoades MD [address] [place] [address] PCP - General Family Medicine 02/02/25 [place] [address] TCM Nurse 07/25/24 08/25/24 Margaret Ro Community Health Worker 07/27/24 4 Wages, Marianne Clinical Wrecking Car Driver 07/14/25 07/28/25 Ariana Bagley Community Health Worker 07/14/25 07/14/25 So Caicedo, ELECTRONIC SYSTEMS SECURITY ASSESSMENT VALUE-[place] [address] None TCM Nurse 09/07/25 10/07/25 Keyonna Goff Community Health Worker 11/01/25 5 documented as of this encounter
--- OUTSIDE RECORDS SUMMARY | 2025-11-28 13:09 | XMS_ITS | Encounter Summary ---
Author Organization Healthcare Address [facility] [place] [address] Care Team Providers Care Philosophy Specialist Name Role Phone Georgette Moore APRN Primary Care Provider [phone] Rodolfo Rhoades MD Primary Care Provider [phone] Wages, Marianne Unavailable Unavailable Ariana Bagley Unavailable Unavailable So Caicedo LPN Unavailable Unavailable Keyonna Goff Unavailable Unavailable Reason for Visit * Reason Comments Med Refill Encounter Details Date Type Department Care Team (Late st Contact Info) Description 11/28/2024 Refill [facility] [address] [place] [address] Imelda Burgos APRN [address] [place] [address] COPD exacerbation (CMS/HCC); Cough with [...] EST Office Visit [facility] [address] [place] [address] Rodolfo Rhoades MD [address] [place] [address] documented as of this encounter Visit Diagnoses Diagnosis COPD exacerbation ([facility]) Obstructive chronic bronchitis with exacerbation Cough with [...] documented as of this encounter Care Teams Philosophy Specialist Relationship Specialty Start Date End Date Georgette Moore APRN [address] [place] [address] PCP - General 04/12/21 02/01/25 Rodolfo Rhoades MD [address] [place] [address] PCP - General Family Medicine 02/02/25 WagesMarianne Clinical Fixed Income Manager 07/14/25 07/28/25 Ariana Bagley Community Health Worker 07/14/25 07/14/25 So Caicedo LPN VALUE-[place] [address] None TCM Nurse 09/07/25 10/07/25 Keyonna Goff Community Health Worker 11/01/25 5 documented as of this encounter
--- NOTE | 2025-11-28 13:10 | MR_ITS ---
FINAL REPORT TECHNIQUE: Multiplanar and multisequence imaging of the brain was obtained without contrast. CLINICAL HISTORY: CHRONIC HEADACHES FINDINGS: There is no mass effect, midline shift or hydrocephalus. Scattered, bilateral, subcortical foci of T2 abnormal signal intensity is seen. Signal intensity in the brainstem and cerebellum is within normal limits. Cranial cervical junction is intact. On diffusion-weighted imaging, there is no restricted diffusion. On gradient imaging, there are foci of suspected bilateral artifact within the right occipital lobe and left posterior parietal lobe suggestive of prior hemorrhage or hemosiderin. There is no acute soft tissue abnormality. IMPRESSION: Nonspecific subcortical white matter changes which could be chronic small vessel ischemia, demyelinating disease or sequela of migraine headache. Findings of prior hemorrhage or hemosiderin in the right occipital and left parietal occipital regions. Recommend clinical correlation. Consider short-term follow-up. Reviewed, Interpreted and Dictated by Debby Sorto MD Transcribed by Lia Rodriguez Authenticated and [facility]
--- OUTSIDE RECORDS SUMMARY | 2025-11-28 13:10 | XMS_ITS | Encounter Summary ---
Author Organization Healthcare Address [address] [id number] Care Team Providers Care Wallet Assembler Name Role Phone Georgette Moore APRN Primary Care Provider [phone] BuddyMiltonon Unavailable Unavailable Margaret Ro Unavailable Unavailable Rodolfo Rhoades MD Primary Care Provider [phone] Marianne Bolaños Unavailable Unavailable Ariana Bagley Unavailable Unavailable So Caicedo LPN Unavailable Unavailable Keyonna Goff Unavailable Unavailable Encounter Details Date Type Department Care Team (Late st Contact Info) Description 07/22/2021 Outside Procedure External Location [address] [place] [address] Irma Masterson MD [address] [place] [address] Social History Tobacco Use Types Packs/Day [...] AM EST Office Visit [facility] [address] [place] [address] Rodolfo Rhoades MD [address] [place] [address] documented as of this encounter Procedures Procedure Name Priority Date/Time Associated Diagnosis Comments CT CHEST LIMITED HISTORICAL 07/22/2021 1:04 PM EDT documented in this encounter Results * CT Chest Limited Historical (07/22/2021 1:04 PM EDT) Anatomical Region Laterality Modality Chest Computed Tomogra phy 07/22/2021 1:04 PM EDT Narrative 07/22/2021 3:35 PM EDT [address] [address] Name: VERONICA ALVAREZ Exam Date: 07/22/2021 : 1975 Age 45 Gender: F Physician: Irma Masterson Facility: [facility] Facility HSV: Outpatient Exam: CT CHEST [...] [facility]. Legally authenticated by POPE FUNMILAYO Almonte 2021-07-22 15:24:50 Procedure Note Provider, [place] - 07/22/[id number] [place] [address] Name: VERONICA ALVAREZ Exam Date: 07/22/2021 : 1975 Age 45 Gender: F Physician: Irma Masterson Facility: [facility] Facility HSV: Outpatient Exam: CT CHEST [...] [facility]. Legally authenticated by POPE FUNMILAYO Almonte [...] documented as of this encounter Care Teams Wallet Assembler Relationship Specialty Start Date End Date Georgette Moore APRN [address] [place] [address] PCP - General 04/12/21 02/01/25 Rodolfo Rhoades MD [address] [place] [address] PCP - General Family Medicine 02/02/25 [place] [address] TCM Nurse 07/25/24 08/25/24 Margaret Ro Community Health Worker 07/27/24 4 Marianne Bolaños Clinical Underwriting Service Representative 07/14/25 07/28/25 Ariana Bagley Community Health Worker 07/14/25 07/14/25 So Caicedo, EQUIPMENT STERILIZER VALUE-[place]ED [place] [address] None TCM Nurse 09/07/25 10/07/25 Keyonna Goff Community Health Worker 11/01/25 5 documented as of this encounter
--- OUTSIDE RECORDS SUMMARY | 2025-11-28 13:10 | XMS_ITS | Encounter Summary ---
Author Organization Healthcare Address [address] [place] [address] Care Team Providers Care Esters And Emulsifiers Supervisor Name Role Phone Rodolfo Rhoades MD Primary Care Provider [phone] So Caicedo LPN Unavailable Unavailable Encounter Details [...] any time in the past 12 m [facility], were you homeless or living in a half-way (including now)? No 08/09/2025 [facility] [address] [place] [address] Rodolfo Rhoades MD [address] [place] [address] documented as of this encounter [...] documented as of this encounter Care Teams Esters And Emulsifiers Supervisor Relationship Specialty Start Date End Date Rodolfo Rhoades MD [address] [place] [address] PCP - General Family Medicine 02/02/25 So Caicedo LPN VALUE[employer] [address] None TCM Nurse 09/07/25 10/07/25 documented as of this encounter
--- OUTSIDE RECORDS SUMMARY | 2025-11-28 13:10 | XMS_ITS | Encounter Summary ---
Author Organization Healthcare Address [facility] [place] [address] Care Team Providers Care Interlocker Maintainer Name Role Phone Rodolfo Rhoades MD Primary Care Provider [phone] Keyonna Goff Unavailable Unavailable Encounter Details Date Type Department Care Team (Late st Contact Info) Description 11/20/2025 Telephone [facility] [address] [place] [address] Rodolfo Rhoades MD [address] [place] [address] Social History Tobacco Use Types [...] in a residential (including now)? No 08/09/2025 [facility] Utilities Answer Date Recorded In the past 12 months has th e [employer], gas, oil, or water [employer] threatened to shut off services in your [...] - 11/20/2025 2:04 PM EST Staff from [facility] called to confirm whether pt needs CK [...] 12/08/2025 11:20 AM EST Office Visit [facility] [address] [place] [address] Rodolfo Rhoades MD [address] [place] [address] documented as of this encounter [...] documented as of this encounter Care Teams Interlocker Maintainer Relationship Specialty Start Date End Date Rodolfo Rhoades MD [address] [place] [address] PCP - General Family Medicine 02/02/25 Keyonna Goff Community Health Worker 11/01/25 5 documented as of this encounter
--- OUTSIDE RECORDS SUMMARY | 2025-11-28 13:10 | XMS_ITS | Encounter Summary ---
Author Organization Healthcare Address [address] [id number] Care Team Providers Care Childcare Teacher Name Role Phone Georgette Moore APRN Primary Care Provider [phone] Veronica Goodwin Unavailable Unavailable Margaret Ro Unavailable Unavailable Rodolfo Rhoades MD Primary Care Provider [phone] Marianne Bolaños Unavailable Unavailable Ariana Bagley Unavailable Unavailable So Caicedo LPN Unavailable Unavailable Keyonna Goff Unavailable Unavailable Encounter Details Date Type Department Care Team (Late st Contact Info) Description 07/22/2024 Outside Procedure External Location [address] [place] [address] Provider, Swapnil Monique Social History Tobacco Use [...] In the past 12 months has e [employer], gas, oil, or water [employer] threatened to shut off services in your [...] Description 12/08/2025 11:20 AM EST Office Visit [facility] [address] [place] [address] Rodoflo Rhoades MD [address] [place] [address] documented as of this encounter Procedures Procedure Name Priority Date/Time Associated Diagnosis Comments ECHO, ADULT TRANSTHORACIC COMPLETE W/ COLOR AND DOPPLER 07/22/2024 6:31 AM EDT documented in this encounter Results * Echo, Adult Transthoracic Complete w/ Color and Doppler (07/22/2024 6:31 AM EDT) Anatomical Region Laterality Modality Ultrasound 07/22/2024 6:31 AM EDT Narrative 07/22/2024 12:07 PM EDT [address] [address] Name: VERONICA ALVAREZ Exam Date: 07/22/2024 : 1975 Age 48 years Gender: F Physician: VICTORIANO REYES Facility: [facility] Facility HSV: Inpatient Exam: ECHO W [...] stenosis with a valve area of 0.85 new accounts clerk (Peak grad=45mmHg, Mean grad=24mmHg, LVOT grady=2.10cm, LVOT TVI=19.3cm, Ao TVI=79.0cm). The dimensionless index is 0.24. AV peak ksphdtmn=188yu/sec. There is a Mechanical AV prosthesis. (Peak [...] for referring VERONICA ALVAREZ to [facility]. Legally authenticated by CINDY JORDAN 2024-07-22 12:04:58 Procedure Note Provider, Generic [place] - 07/22/2024 [place] [address] Name: VERONICA ALVAREZ Exam Date: 07/22/2024 : 1975 Age 48 years Gender: F Physician: VICTORIANO REYES Facility: [facility] Facility HSV: Inpatient Exam: ECHO W [...] stenosis with a valve area of 0.85 new accounts clerk (Peak grad=45mmHg, Mean grad=24mmHg, LVOT grady=2.10cm, LVOT TVI=19.3cm, Ao TVI=79.0cm). The dimensionless index is 0.24. AV peak gyvihlbo=700dz/sec. There is a Mechanical AV prosthesis. (Peak [...] for referring VERONICA ALVAREZ to [facility]. Legally authenticated by CINDY JORDAN 2024-07-22 12:04:58 us Generic [place] Provider CV ECHO PROCEDURES F inal Result [...] documented as of this encounter Care Teams Childcare Teacher Relationship Specialty Start Date End Date Georgette Moore APRN [address] [place] [address] PCP - General 04/12/21 02/01/25 Rodolfo Rhoades MD [address] [place] [address] PCP - General Family Medicine 02/02/25 [place] [address] TCM Nurse 07/25/24 08/25/24 Margaret Ro Community Health Worker 07/27/24 4 Wages, Marianne Clinical Poem Writer 07/14/25 07/28/25 Ariana Bagley Community Health Worker 07/14/25 07/14/25 So Caicedo LPN VALUE[employer] [address] None TCM Nurse 09/07/25 10/07/25 Keyonna Goff Community Health Worker 11/01/25 5 documented as of this encounter
--- OUTSIDE RECORDS SUMMARY | 2025-11-28 13:10 | XMS_ITS | Encounter Summary ---
Author Organization Healthcare Address [address] [place] [address] Care Team Providers Care Butter Production Supervisor Name Role Phone Rodolfo Rhoades MD Primary Care Provider [phone] Wages, Marianne Unavailable Unavailable Ariana Bagley Unavailable Unavailable So Caicedo LPN Unavailable Unavailable Keyonna Goff Unavailable Unavailable Reason for Visit * Reason Comments Med Refill Encounter Details Date Type Department Care Team (Late st Contact Info) Description 07/07/2025 Refill [facility] [address] [place] [address] Rodolfo Rhoades MD [address] [place] [address] Social History Tobacco Use Types [...] any time in the past 12 m [facility], were you homeless or [...] Recorded In the past 12 months has [employer], gas, oil, or water company threatened [...] Description 12/08/2025 11:20 AM EST Office Visit [facility] [address] [place] [address] Rodolfo Rhoades MD [address] [place] [address] documented as of this encounter [...] documented as of this encounter Care Teams Butter Production Supervisor Relationship Specialty Start Date End Date Rodolfo Rhoades MD [address] [place] [address] PCP - General Family Medicine 02/02/25 Marianne Bolaños Clinical Photographer Aerial 07/14/25 07/28/25 Ariana Bagley Community Health Worker 07/14/25 07/14/25 So Caicedo LPN VALUE-BASED [place] [address] None TCM Nurse 09/07/25 10/07/25 Keyonna Goff Community Health Worker 11/01/25 5 documented as of this encounter
--- OUTSIDE RECORDS SUMMARY | 2025-11-28 13:10 | XMS_ITS | Encounter Summary ---
Author Organization Healthcare Address [address] [place] [address] Care Team Providers Care Restaurant Attendant Name Role Phone Rodolfo Rhoades MD Primary Care Provider [phone] Keyonna Goff Unavailable Unavailable Encounter Details Date [...] in a residential (including now)? No 08/09/2025 [facility] Utilities Answer Date Recorded In the [...] Visit [facility] [address] [place] [address] Rodolfo Rhoades MD [address] [place] [address] documented as of this encounter [...] as of this encounter Care Teams Restaurant Attendant Relationship Specialty Start Date End Date Rodolfo Rhoades MD [address] [place] [address] PCP - General Family Medicine 02/02/25 Keyonna Goff Community Health Worker 11/01/25 5 documented as of this encounter
--- OUTSIDE RECORDS SUMMARY | 2025-11-28 13:10 | XMS_ITS | Encounter Summary ---
Author Organization [place] Address [facility] [place] [address] Care Team Providers Care Mechanical Engineering Professor Name Role Phone Georgette Moore APRN Primary Care Provider [phone] Veronica Goodwin Unavailable Unavailable Margaret Ro Unavailable Unavailable Rodolfo Rhoades MD Primary Care Provider [phone] Mami Marianne Unavailable Unavailable Ariana Bagley Unavailable Unavailable So Caicedo LPN Unavailable Unavailable Keyonna Goff Unavailable Unavailable Reason for Visit * Reason Comments Med Refill Encounter Details Date Type Department Care Team (Late st Contact Info) Description 05/13/2021 [facility] [address] [place] [address] Georgette Moore APRN [address] [place] [address] Social History Tobacco Use Types [...] AM EST Office Visit [facility] [address] [place] [address] Rodolfo Rhoades MD [address] [place] [address] documented as of this encounter [...] documented as of this encounter Care Teams Mechanical Engineering Professor Relationship Specialty Start Date End Date Georgette Moore APRN [address] [place] [address] PCP - General 04/12/21 02/01/25 Rodolfo Rhoades MD [address] [place] [address] PCP - General Family Medicine 02/02/25 [place] [address] TCM Nurse 07/25/24 08/25/24 Margaret Ro Community Health Worker 07/27/24 4 Marianne Bolaños Clinical Wet Silk Hanger 07/14/25 07/28/25 Ariana Bagley Community Health Worker 07/14/25 07/14/25 So Caicedo LPN VALUE[employer] [address] None TCM Nurse 09/07/25 10/07/25 Keyonna Goff Community Health Worker 11/01/25 5 documented as of this encounter
--- OUTSIDE RECORDS SUMMARY | 2025-11-28 13:10 | XMS_ITS | Encounter Summary ---
Author Organization [facility] Address [facility] [place] [place] [address] Care Team Providers Care Escapement Matcher Name Role Phone Rodolfo Rhoades MD Primary Care Provider [phone] Keyonna Goff Unavailable Unavailable Reason for Visit * Reason Onset Date Comments HCN Clinical Concern/Question 11/24/2025 Encounter Details Date Type Department Care Team (Late st Contact Info) Description 11/24/2025 Telephone [facility] [address] [place] [address] Rodolfo Rhoades MD [address] [place] [address] HCN Clinical Concern/Question Social History [...] a senior living (including now)? No 08/09/2025 [facility] Utilities Answer Date Recorded In [...] Telephone Encounter - Rodolfo Rhoades MD - 11/24/2025 4:41 PM EST Noted see other TE encounter. She talked with one of our nurses. * Telephone Encounter - Anamika Levin - 11/24/2025 3:14 PM EST Clinical Concern/Question Reason for Call: she is asking for a nurse to call to discuss/let Dr. Rhoades know that she is going to the local hospital in [facility] and she has already talked with them there. She is going o get fluids. She is wanting to come home after that and wants no other issues. She sent a message via my chart but was afraid no one would see in time. Please call patient Best contact number: [phone] Optimal time of day to reach caller: [...] Description 12/08/2025 11:20 AM EST Office Visit [facility] & [address] [address] [place] [address] documented as of this encounter [...] documented as of this encounter Care Teams Escapement Matcher Relationship Specialty Start Date End Date Rodolfo Rhoades MD [address] [place] [address] PCP - General Family Medicine 02/02/25 Keyonna Goff Community Health Worker 11/01/25 5 documented as of this encounter
--- OUTSIDE RECORDS SUMMARY | 2025-11-28 13:10 | XMS_ITS | Encounter Summary ---
Author Organization Healthcare Address [address] [id number] Care Team Providers Care Business Analyst Ecommerce Name Role Phone Rodolfo Rhoades MD Primary Care Provider [phone] Keyonna Goff Unavailable Unavailable Reason for Visit * Reason Comments [facility] Encounter Details Date Type Department Care Team (Late st Contact Info) Description 11/27/2025 Patient Outreach POPULATION [facility]ALTH [address] [facility] [address] [place] [address] Keyonna Goff Ch[facility] Social History [...] any time in the past 12 m [facility], were you homeless or living in a mcc (including now)? No 08/09/2025 [facility] Utilities Answer Date Recorded In the [...] Answer Entry Date Author Outreach Reason Follow-Up 11/27/2025 11:44 AM EST Keyonna Kang Pop Health Reason For Encounter CHW/[facility] 11/27/2025 11:44 AM EST Keyonna Goff documented in this encounter Miscellaneous Notes * Progress Notes - Keyonna Goff - 11/27/2025 11:29 AM EST 11/27/2025 CHW Follow-up: Follow-up from 11/02/25 Contact - Phone Reason for Follow-up: CHW attempted to call the pt to follow up about their SDOH needs and community resources, but the pt did not answer. CHW left a voicemail with their contact info. Plan: CHW will not follow the pt at this time, as resources were previously provided and the pt is not responding to follow ups. Should the pt reach back out to the CHW, the CHW will assist them withany SDOH needs. documented in this encounter Plan of Treatment Upcoming Encounters Date Type Department Care Team (Late Contact Info) Description 12/08/2025 11:20 AM EST Office Visit [facility] [address] [place] [address] Rodolfo Rhoades MD [address] [place] [address] documented as of this encounter [...] as of this encounter Care Teams Business Analyst Ecommerce Relationship Specialty Start Date End Date Rodolfo Rhoades MD [address] [place] [place] [address] PCP - General Family Medicine 02/02/25 Keyonna Goff Community Health Worker 11/01/25 5 documented as of this encounter
--- OUTSIDE RECORDS SUMMARY | 2025-11-28 13:10 | XMS_ITS | Encounter Summary ---
Author Organization Healthcare Address [facility] [place] [address] Care Team Providers Care Shoe Stitcher Odd Name Role Phone Rodolfo Rhoades MD Primary Care Provider [phone] So Caicedo LPN Unavailable Unavailable Encounter Details Date Type Department Care Team (Late st Contact Info) Description 09/19/2025 Telephone [facility] [address] [place] [address] Rodolfo Rhoades MD [address] [place] [address] Social History Tobacco Use Types [...] in a half-way (including now)? No 08/09/2025 [facility] Utilities [...] is not sure about a UTC in [place] but is going to get INR tomorrow and will ask them about a UTC in [facility]. * Telephone Encounter - Mindy Gudino [...] want xray she wants order sent to [facility]. Informedpt I would send message to Dr. Rhoades and call her back. Pt voiced understanding. * Telephone Encounter - Bri Collins - 09/19/2025 10:12 AM EDT Clinical Concern/Question Reason for Call: Pt has been tired since she got home from the hospital, she is asking if that is normal. Also asking if a walker without wheels can be ordered for her in [place] ( [facility]). Best contact number: [phone] (mobile) Optimal time of day to reach caller: ANYTIME Additional comments/information from caller: None Note: Please do not reply to this message. Follow-up communication and further actions as a result of this message need to be communicated with the patient directly, if the patient is not active onMyChart. If the patient is active on MyChart, they will receive notification of the communication/outcome via [employer]. documented in this encounter Plan of Treatment Upcoming Encounters Date Type Department Care Team (Late st Contact Info) Description 12/08/2025 11:20 AM EST Office Visit [facility] [address] [place] [address] Rodolfo Rhoades MD [address] [place] [address] documented as of this encounter [...] documented as of this encounter Care Teams Shoe Stitcher Odd Relationship Specialty Start Date End Date Rodolfo Rhoades MD [address] [place] [address] PCP - General Family Medicine 02/02/25 So Caicedo LPN VALUE[employer] [address] None TCM Nurse 09/07/25 10/07/25 documented as of this encounter
--- OUTSIDE RECORDS SUMMARY | 2025-11-28 13:10 | XMS_ITS | Encounter Summary ---
Author Organization Healthcare Address [facility] [place] [address] Care Team Providers Care Education Analyst Name Role Phone Rodolfo Rhoades MD Primary Care Provider [phone] Reason for Visit * Reason Comments Med Refill Encounter Details Date Type Department Care Team (Late st Contact Info) Description 10/11/2025 Refill [facility] [address] [place] [address] Rodolfo Rhoades MD [address] [place] [address] Low vitamin D level Social [...] in the past 12 m [facility], were you homeless or living in a fci (including now)? No 08/09/2025 [facility] Utilities Answer Date Recorded In the [...] Description 12/08/2025 11:20 AM EST Office Visit [facility] [address] [place] [address] [place] [address] documented as of this [...] documented as of this encounter Care Teams Education Analyst Relationship Specialty Start Date End Date Rodolfo [place] [address] PCP - General Family Medicine 02/02/25 documented as of this encounter
--- OUTSIDE RECORDS SUMMARY | 2025-11-28 13:10 | XMS_ITS | Encounter Summary ---
Author Organization Healthcare Address [address] [id number] Care Team Providers Care Drawer Liner Name Role Phone Rodolfo Rhoades MD Primary Care Provider [phone] Keyonna Goff Unavailable Unavailable Reason for Visit * Reason Comments [facility]w/[employer] Encounter Details Date Type Department Care Team (Late st Contact Info) Description 11/01/2025 Patient Outreach POP[facility]ATION [facility] [address] [facility] [address] [place] [address] Keyonna Goff Chw/[facility] Social History [...] in a chcf (including now)? No 08/09/2025 [facility] 11/01/2025 Urgent or Non-Urgent Referral: Non Urgent Political Scientist: No Preferred Language: Zambian Political Scientist ID: N/A Outreach 1: 11/01/25 Outreach 2: [...] Visit [facility] & [address] [address] Rodolfo Rhoades MD [address] [place] [address] documented as of this encounter Visit Diagnoses [...] documented as of this encounter Care Teams Drawer Liner Relationship Specialty Start Date End Date Rodolfo Rhoades MD [address] [facility] [place] [address] PCP - General Family Medicine 02/02/25 Keyonna Goff Community Health Worker 11/01/25 5 documented as of this encounter
--- OUTSIDE RECORDS SUMMARY | 2025-11-28 13:10 | XMS_ITS | Encounter Summary ---
Author Organization Healthcare Address [place] [address] Care Team Providers Care Parallel Computing Software Engineer Name Role Phone Rodolfo Rhoades MD Primary Care Provider [phone] Keyonna Goff Unavailable Unavailable Encounter Details Date Type Department Care Team (Late st Contact Info) Description 10/08/2025 Results Follow-Up [facility] [address] [place] [address] Rodolfo Rhoades MD [address] [place] [address] Social History Tobacco Use Types [...] in a retirement (including now)? No 08/09/2025 [facility] Utilities Answer Date Recorded In the [...] Description 12/08/2025 11:20 AM EST Office Visit [facility] [address] [place] [address] Rodolfo [...] documented as of this encounter Care Teams Parallel Computing Software Engineer Relationship Specialty Start Date End Date Rodolfo Rhoades MD [address] [place] [address] PCP - General Family Medicine 02/02/25 Keyonna Goff Community Health Worker 11/01/25 5 documented as of this encounter
--- OUTSIDE RECORDS SUMMARY | 2025-11-28 13:10 | XMS_ITS | Encounter Summary ---
Author Organization [facility] Address [facility] [place] [address] Care Team Providers Care Transitional Care Nurse Name Role Phone Rodolfo Rhoades MD Primary Care Provider [phone] Keyonna Goff Unavailable Unavailable Reason for Visit * Reason Onset Date Comments HCN - Patient Message 10/19/2025 Encounter Details Date Type Department Care Team (Late st Contact Info) Description 10/19/2025 Telephone [facility] [address] [place] [address] Rodolfo Rhoades MD [address] [place] [address] HCN - Patient Message Social [...] any time in the past 12 m [facility], were you homeless or living in a fpc (including now)? No 08/09/2025 [facility] Utilities Answer Date Recorded In the [...] to advise. Please call Best contact number: [phone] Optimal time of day to reach caller: Additional comments/information from caller: Note: Please do not reply to this message. Follow-up communication and further actions as a result of this message need to be communicated with the patient directly, if the patient is not active onMyChart. If the patient is active on MyChart, they will receive notification of the communication/outcome via [employer]. documented in this encounter Plan of Treatment Upcoming Encounters Date Type Department Care Team (Late st Contact Info) Description 12/08/2025 11:20 AM EST Office Visit [facility] [address] [place] [address] Rodolfo [...] documented as of this encounter Care Teams Transitional Care Nurse Relationship Specialty Start Date End Date Rodolfo Rhoades MD [address] [place] [address] PCP - General Family Medicine 02/02/25 Keyonna Goff Community Health Worker 11/01/25 5 documented as of this encounter
--- OUTSIDE RECORDS SUMMARY | 2025-11-28 13:10 | XMS_ITS | Encounter Summary ---
Author Organization Healthcare Address [address] [place] [address] Care Team Providers Care Australian Rules Footballer Name Role Phone Rodolfo Rhoades MD Primary [...] a skilled nursing (including now)? No 08/09/2025 [facility] Utilities Answer Date Recorded In [...] Remy Louie * Travel Screening Question Answer Date of [...] Visit [facility] [address] [place] [address] Rodolfo Rhoades MD [address] [place] [address] documented as of this encounter [...] documented as of this encounter Care Teams Australian Rules Footballer Relationship Specialty Start Date End Date Rodolfo Rhoades MD [address] [place] [address] PCP - General Family Medicine 02/02/25 So Caicedo LPN [employer] [place] [address] None TCM Nurse 09/07/25 10/07/25 documented as of this encounter
--- OUTSIDE RECORDS SUMMARY | 2025-11-28 13:10 | XMS_ITS | Encounter Summary ---
Author Organization Healthcare Address [address] [id number] Care Team Providers Care Power Switchboard Operator Name Role Phone Rodolfo Rhoades MD Primary Care Provider [phone] Keyonna Goff Unavailable Unavailable Reason for Visit * Reason Comments [facility] Encounter Details Date Type Department Care Team (Late st Contact Info) Description 11/20/2025 Patient Outreach [facility] [address] [facility] [address] [place] [address] Keyonna Goff [facility] Social History [...] in a long-term (including now)? No 08/09/2025 [facility] Utilities Answer Date Recorded In the past [...] Visit [facility] [address] [place] [address] Rodolfo Rhoades MD [address] [place] [address] documented as of [...] documented as of this encounter Care Teams Power Switchboard Operator Relationship Specialty Start Date End Date Rodolfo Rhoades MD [address] [place] [id number] PCP - General Family Medicine 02/02/25 Keyonna Goff Community Health Worker 11/01/25 5 documented as of this encounter
--- OUTSIDE RECORDS SUMMARY | 2025-11-28 13:10 | XMS_ITS | Encounter Summary ---
Author Organization Healthcare Address [facility] [place] [address] Care Team Providers Care Fiber Heel Piece Shaper Name Role Phone Rodolfo Rhoades MD Primary Care Provider [phone] So Caicedo LPN Unavailable Unavailable Encounter Details Date Type Department Care Team (Late st Contact Info) Description 09/08/2025 Telephone [facility] [address] [place] [address] Rodolfo Rhoades MD [address] [place] [address] Social History Tobacco Use Types [...] a group home (including now)? No 08/09/2025 [facility] [...] beoverbooked with him instead. Best contact number: [phone] (mobile) Optimal time of day to reach [...] will receive notification of the communication/outcome via [employer]. documented in this encounter Plan of Treatment Upcoming Encounters Date Type Department Care Team (Late st Contact Info) Description 12/08/2025 11:20 AM EST [facility] [address] [place] [address] Rodolfo Rhoades MD [address] [place] [address] documented as of this encounter [...] documented as of this encounter Care Teams Fiber Heel Piece Shaper Relationship Specialty Start Date End Date Rodolfo Rhoades MD [address] [place] [address] PCP - General Family Medicine 02/02/25 So Caicedo LPN [employer] [place] [address] None TCM Nurse 09/07/25 10/07/25 documented as of this encounter
--- OUTSIDE RECORDS SUMMARY | 2025-11-28 13:10 | XMS_ITS | Clinical Summary ---
Author Organization Healthcare Address [address] [id number] Care Team Providers Care Mop Worker Name Role Phone Rodolfo Rhoades MD Primary Care Provider [phone] Allergies Active Allergy Reactions Criticality Noted Date [...] g 12 11/01/20 25 Active nystatin (Mycostatin) 543839 UNIT/GM powder Apply to groin twice a [...] of breath or wheezing. 1 each 2 02/16/202024 Discontinued(R eorder) acetaminophen (Tylenol) 500 MG tablet Take 2 tablets by mouth 3 times a day. 200 tablet 09/06/202024 Discontinued(R eorder) nystatin (Mycostatin) 961701 UNIT/GM powder Apply to groin twice a day. Keep area dry. 60 g 09/06/20 25 2024 Discontinued(R eorder) losartan (Cozaar) 25 MG tablet Take 1 tablet by mouth daily. 30 tablet 2 09/15/202024 Discontinued DULoxetine (Cymbalta) [address] capsule Take 1 capsule by mouth daily. Do not crush or chew. 30 capsule 1 09/15/202024 Discontinued hydrOXYzine pamoate (Vistaril) 25 MG capsule [...] endurance continues to improve. PLAN - Removed ugerrero catheter today. Encouraged to use bedside commode. [...] PRN and hydroxyzine q6hr PRN. PLAN: - [employer] Truck Crane Operator services following - Continue home Klonopin TID PRN - Continue hydroxyzine 25 mg q6h PRN Assessment & Plan (08/28/2025 7:38 AM EDT): - Patient takes Klonopin TID PRN and hydroxyzine q6hr PRN. PLAN: - [employer]el Truck Crane Operator services following - Continue home Klonopin TID PRN - Continue hydroxyzine 25 mg q6h PRN Assessment & Plan (08/27/2025 6:17 PM EDT): - Patient takes Klonopin TID PRN and hydroxyzine q6hr PRN. PLAN: - [employer]el Truck Crane Operator services following - Continue home Klonopin TID PRN - Continue hydroxyzine 25 mg q6h PRN Assessment & Plan (08/26/2025 7:20 AM EDT): - Patient takes Klonopin TID for anxiety. - Patient denies consideration of cymbalta. Has previously denied discussion regarding SSRIs. PLAN - [employer] Truck Crane Operator services following - Continue home Klonopin TID PRN - Continue hydroxyzine 25 mg q6h PRN Assessment & Plan (08/25/2025 1:17 PM EDT): - Patient takes Klonopin TID for anxiety. - Patient denies consideration of cymbalta. Has previously denied discussion regarding SSRIs. PLAN - [employer] Truck Crane Operator services following - Continue home Klonopin TID PRN - Continue hydroxyzine 25 mg q6h PRN Assessment & Plan (08/24/2025 11:26 AM EDT): - Patient takes Klonopin TID for anxiety. - Patient denies consideration of cymbalta. Has previously denied discussion regarding SSRIs. - [employer] Truck Crane Operator services saw Ms. Weiss yesterday and she states that she was extremely thankful for their visit. PLAN - [employer] Truck Crane Operator services following - Continue home Klonopin TID PRN - Continue hydroxyzine 25 mg q6h PRN Assessment & Plan (08/23/2025 12:08 PM EDT): - Patient takes Klonopin TID for anxiety. - Patient denies consideration of cymbalta. She denies wanting to discuss SSRI options today. PLAN - Consulted leveling machine operator services for support - Continue home Klonopin [...] Plan (08/25/2025 1:17 PM EDT): PLAN - FOUNDATION STAGE TEACHER reevaluated today. With patient agreed to go to full diet. Patient still requires a 1:1 assist with eating due to difficulty with hand strength. Assessment & Plan (08/24/2025 11:26 AM EDT): - Dobhoff tube was removed yesterday since she has been tolerating her diet appropriately - Patient has been continuing to eat soft and bite sized diet with 1:1 assistance PLAN - FOUNDATION STAGE TEACHER following, appreciate recommendations Assessment & Plan (08/23/2025 12:08 PM EDT): - Repeat MBS on 08/22 demonstrated intermittent penetration and aspiration of thin liquids. Ordered soft and bite sized diet on 08/22 with 1:1 feeding assistance. - Tube feeds held PM 08/01. Dobhoff tube is still in place. - Patient has been tolerating soft and bite sized diet well. PLAN - FOUNDATION STAGE TEACHER following, appreciate recommendations - Planning to remove dobhoff tube later in the day to make sure that breakfast and lunch were tolerated well. Assessment & Plan (08/22/2025 8:39 AM EDT): - MBS on 08/15 with aspiration of thin, nectar, and honey barium consistency - Dobhoff tube in place PLAN - FOUNDATION STAGE TEACHER following, appreciate recommendations - Continue isosource tube [...] 9.41 (08/23). - Blood culture on 08/17, (1) was [...] Recommends outpatient EMG - Follow-up requested with [facility] Neurology Assessment & Plan (08/30/2025 12:05 [...] organization. Date Type Department Care Team Description 11/27/2025 Patient Outreach [address], [address] [address] Keyonna Goff [facility] 11/24/[address] [address] Rodolfo Rhoades MD HCN Clinical Concern/Question 11/20/2025 Patient Outreach [address], [address] [place] [address] Keyonna Goff [facility] 11/20/2025 Telephone [facility] [address] [place] [address] Rodolfo Rhoades MD 11/20/2025 Telephone [facility] [address] [place] [address] Rodolfo Rhoades MD HCN Lab/home Health (Lab order) 11/17/2025 Telephone [facility] [address] [place] [address] Rodolfo Rhoades MD HCN Clinical Concern/Question 11/10/2025 Telephone [facility] [address] [place] [address] Rodolfo Rhoades MD HCN Clinical Concern/Question 11/09/2025 Patient Outreach [address], [address] [place] [address] Keyonna Goff [facility] 11/07/2025 Orders Only [address] [address] Rodolfo Rhoades MD Elevated CK (Primary Dx) 11/02/[address] [address] Rodolfo Rhoades MD HCN Paperwork/Documentati on Request 11/02/2025 Patient Outreach [address], [address] [place] [address] Keyonna Goff [facility] 11/02/2025 Results Follow-Up [address] [address] Rodolfo Rhoades MD 11/02/2025 Orders Only [address] [address] Rodolfo Rhoades MD Non-traumatic rhabdomyolysis (Primary Dx); Elevated CK 11/01/2025 10:40 AM EST Office Visit [address] [place] [address] Rodolfo Rhoades MD Sore throat (Primary Dx); Moderate persistent asthma without complication; Acute recurrent maxillary sinusitis; Fatigue, unspecified type; Acute upper respiratory infection, unspecified; Chronic nonintractable headache, unspecified headache type; Chronic atrial fibrillation (CMS/HCC); Essential hypertension; Non-traumatic rhabdomyolysis; Elevated CK; Transportation insecurity; Anemia, unspecified type 11/01/2025 Patient Outreach [facility] [address], [address] [place] [address] Keyonna Goff [facility] 11/01/2025 Travel 10/19/2025 Telephone [facility] [address] [place] [address] Rodolfo Rhoades MD HCN - Patient Message 10/11/2025 Refill [facility] [address] [place] [address] Rodolfo Rhoades MD Low vitamin D level 10/08/2025 Results Follow-Up [facility] [address] [place] [address] Rodolfo Rhoades MD 10/05/2025 11:00 AM EST Office Visit [facility] [address] [place] [address] Rodolfo Rhoades MD Non-traumatic rhabdomyolysis (Primary Dx); Essential hypertension; Nerve pain; Elevated CK; Generalized weakness 10/05/2025 Travel 10/05/2025 Refill [facility] [address] [facility] [facility], [address] [place] [address] Tammy Caban MD 10/02/2025 9:40 AM EST Office Visit [facility] [address] [place] [address] Georgette Moore APRN Non-traumatic rhabdomyolysis (Primary Dx) 10/02/2025 Telephone [facility] [address] [place] [address] Rodolfo Rhoades MD 10/02/2025 Travel 09/20/2025 Results Follow-Up [facility] [address] [place] [address] Rodolfo Rhoades MD 09/19/2025 Telephone [facility] [address] [place] [address] Rodolfo Rhoades MD 09/15/2025 1:00 PM EDT Office Visit [facility] [address] [place] [address] Rodolfo Rhoades MD Sequela, post-stroke (Primary Dx); Non-traumatic rhabdomyolysis; Mixed hyperlipidemia; Vitamin D deficiency; Chronic atrial fibrillation (CMS/HCC); Essential hypertension; Anemia, unspecified type 09/15/2025 Travel 09/08/2025 Telephone [facility] [address] [place] [address] Rodolfo Rhoades MD 09/08/2025 Patient Outreach [facility] [address], [facility] [address] [place] [address] So Caicedo LPN [facility] 09/07/2025 Results Follow-Up [facility] Pharmacy [address] [place] [address] Annemarie Grover, PharmD 09/07/2025 Patient Outreach [address], [facility] [address] [place] [address] So Caicedo LPN TCM 08/30/2025 Travel from Last 3 Months Immunizations Immunization Administration Dates Next Due Influenza, injectable, quadrivalent 12/17/2016 Influenza, injectable, quadr ivalent, preservative free 09/20/2020 Influenza, seasonal, injecta ble, preservative free 12/17/2016 [employer] COVID-19 Vac cine (Purple Cap) 12+ 11/27/2021,04/05/2021,03/08/2021 Family History Medical History Relation Name Comments No Known Problems Daughter Alcohol abuse Father Cirrhosis Father Cancer Maternal Grandfather Jaya Greenfield Heart disease Maternal Grandmother Starr Collins Stroke Maternal Grandmother Starr Collins Arthritis Mother Em Greenfield COPD Mother Em Greenfield Heart attack Mother Em Greenfield Osteoporosis Mother mE Greenfield Throat cancer Paternal Grandfather No Known [...] in a halfway (including now)? No 08/09/2025 [facility] Utilities [...] 11:20 AM EST Office Visit [facility] [address] [place] [address] Rodolfo Rhoades MD [address] [...] 2022 FIT 2022 FOBT 2022 Sigmoidoscopy 2022 [id number] Vaccine ( season) 2025 11/27/2021, 04/05/2021, 03/08/2021 [...] AUTO DIFFERENTIAL Routine 08/29/2025 1:45 AM EDT HUMAN IMMUNODEFICIENCY VIRUS (HIV-1) QUANTITATIVE [...] ORDERABLES Final Res ult Performing Organization Address City/[facility]/ZIP Co de Phone Number [facility] [address] [place] [address] * (ABNORMAL) Protime-INR (11/01/2025 1:03 PM EST) Only the most recent of10 resultswithin the time period is included. Pathologist [facility] Prothrombin Time 18.6(H) 12.0 - 14.3 sec [...] of recurrent CA INR 2.5 to 3.5 Rodolfo Rhoades MD LAB BLOOD ORDERABLES Final Res ult Performing Organization Address City/[facility]/ZIP Co de Phone Number [facility] [address] [place] [address] * (ABNORMAL) CBC and Differential (11/01/2025 1:03 PM EST) Only the most recent of11 resultswithin the time period is included. WBC [...] 10*3/uL LAB HEMATOLOGY METHOD 11/01/2025 7:00 PM [facility] MCV 95 79 - 98 fL LAB HEMATOLOGY METHOD 11/01/2025 7:00 PM [facility] MCH 29.6 26.0 - 32.0 pg LAB HEMATOLOGY METHOD 11/01/2025 7:00 PM [facility] MCHC 31.2 30.7 - 35.5 g/dL LAB HEMATOLOGY METHOD 11/01/2025 7:00 PM [facility] RDW 12.7 11.5 - 14.5 % LAB HEMATOLOGY METHOD 11/01/2025 7:00 PM [facility] MPV 10.6 8.8 - 12.5 fL LAB HEMATOLOGY METHOD 11/01/2025 7:00 PM [facility] nRBC 0.0 <=0.0 per 100 WBCs LAB HEMATOLOGY METHOD 11/01/2025 7:00 PM [facility] Differential Type Automated LAB HEMATOLOGY METHOD 11/01/2025 7:00 PM [facility] Neutrophils % 65 % LAB HEMATOLOGY METHOD 11/01/2025 7:00 PM [facility] Lymphocytes % 19 % LAB HEMATOLOGY METHOD 11/01/2025 7:00 PM [facility] Monocytes % 8 % LAB HEMATOLOGY METHOD 11/01/2025 7:00 PM [facility] Eosinophils % 8 % LAB HEMATOLOGY METHOD 11/01/2025 7:00 PM [facility] Basophils % 0 % LAB HEMATOLOGY METHOD 11/01/2025 7:00 PM [facility] Immature Granulocytes % 0 % LAB HEMATOLOGY METHOD 11/01/2025 7:00 PM [facility] Neutrophils Absolute 6.03 1.60 - [...] Res ult [facility] [address] [place] [address] * Thyroid Stimulating Hormone, Plasma (11/01/2025 1:03 [...] Res ult Performing Organization Address [facility] [place] [address] * Free T4, Plasma (11/01/2025 1:03 PM [...] Res ult Performing Organization Address [facility] [place] [address] * Iron, Plasma (11/01/2025 1:03 PM EST) Only the most recent of2 resultswithin the time period is included. Iron, Plasma 79 30 - 160 ug/dL 11/01/2025 7:[address] [facility] Blood Venous blood specimen / Unknown Venipuncture / Unknown 11/01/2025 1:03 PM EST 11/01/2025 1:03 PM EST Rodolfo Rhoades MD LAB BLOOD ORDERABLES Final Res ult Performing Organization Address [facility] [place] [address] * (ABNORMAL) Ferritin, Serum (11/01/2025 1:03 PM [...] Res ult [facility] [address] [place] [address] * (ABNORMAL) Comprehensive Metabolic Panel, Plasma (11/01/2025 1:03 PM EST) Only the most recent of12 resultswithin the time period is included. Glucose, [...] - 145 mmol/L 11/01/2025 7:25 PM EST [facility] Potassium, Plasma 3.7 3.6 - 4.9 mmol/L 11/01/2025 7:25 PM EST [facility] Chloride, Plasma 99 97 - 107 mmol/L 11/01/2025 7:25 PM EST [facility] CO2, Plasma 27 22 - 29 mmol/L 11/01/2025 7:25 PM EST [facility] Anion Gap 10 6 - 16 mmol/L 11/01/2025 7:25 PM EST [facility] Total Calcium, Plasma 10.1 8.9 - 10.2 mg/dL 11/01/2025 7:25 PM EST [facility] Total Protein 7.8 6.3 - 7.9 g/dL 11/01/2025 7:25 PM EST [facility] Albumin, Plasma 3.9 3.5 - 5.2 g/dL 11/01/2025 7:25 PM EST [facility] AST, Plasma 102(H) 10 - 35 U/L 11/01/2025 7:25 PM EST [facility] ALT, Plasma 92(H) 10 - 35 U/L 11/01/2025 7:25 PM EST [facility] Alkaline Phosphatase, Plasma 146(H) 35 - 104 U/L 11/01/2025 7:25 PM EST [facility] Total Bilirubin, Plasma 0.5 0.2 - 1.1 mg/dL 11/01/2025 7:25 PM EST [facility] eGFRcr 109.2 mL/min/1.7 3m*2 11/01/2025 7:25 PM EST [facility] Comment:Reported eGFRcr in m L/min/1.73m2 is based the CKD-EPI 2020 equation that does not use a race coefficient. Blood Venous blood specimen / Unknown Venipuncture / Unknown 11/01/2025 1:03 PM EST 11/01/2025 1:03 PM EST Rodolfo Rhoades MD LAB BLOOD ORDERABLES Final Res ult [facility] [address] [place] [address] * POCT SARS-CoV-2 COVID-19 Influenza A,B (11/01/2025 12:36 PM EST) Pathologist [facility] POCT Influenza A PCR Not Detected Not Detected POCT Influenza B PCR Not Detected Not Detected POCT COVID 19 PCR Not Detected Not Detected POCT COVID/Flu A,B Kit Lot [id number] POCT COVID/FLU A,B Kit Expiration 01/27/2027 Nasopharyngeal Swab Nasopharyngeal structure / Unknown 11/01/2025 12:36 PM EST Rodolfo Rhoades MD POINT OF CARE TEST ENTER/EDIT ORDERABLES Final Result * POCT Strep A PCR (11/01/2025 12:34 PM EST) Pathologist [facility] POCT Strep A PCR Not Detected Not Detected Kit Lot Number [id number] Kit Expiration Date 03/29/2027 Swab Structure of [...] - 1,033 pg/mL 09/15/2025 7:[address] [facility] Blood Venous blood specimen / Unknown Venipuncture / Unknown 09/15/2025 2:12 PM EDT 09/15/2025 2:12 PM EDT Rodolfo Rhoades MD LAB BLOOD ORDERABLES Final Res ult [facility] [address] [place] [address] * Type and screen (09/06/2025 10:04 AM [...] ORDERABLES Final Result BLOOD BANK [address] [place] [address], * Prepare Leukocyte Reduced RBC: 1 Units, Leukocyte reduced (CMV reduced risk) (09/06/2025 9:11 AM EDT) Product Code [id number] BLOO D BANK Dispense Status Transfused BLOOD BANK Blood Expiration Date [id number] BLOOD BANK Unit Number [id number] B LOOD BANK Product Blood Type 9500 BLOOD BANK Blood Type O- BLOOD BANK Crossmatch Compatible BLOOD BANK Other Tammy Caban MD BLOOD BANK PRODUCT ORDERABLES Final Result Performing Organization Address City/[facility]/ZIP Co de Phone Number BLOOD BANK [address] [place] [address], * POCT glucose meter (09/06/2025 6:48 AM EDT) Only the most recent of2 resultswithin the time period is included. [facility] POCT Glucose 91 74 - 99 [...] 09/06/2025 7:23 AM EDT [facility] Resident Services Supervisor ID Rappa, Kamryn 09/06/2025 7:23 AM EDT [facility]ALTH[facility] Device ID [id number] 09/06/2025 7:23 AM EDT [facility] Specimen Type POC Capillary 09/06/2025 7:23 AM EDT [facility] Blood Capillary blood specimen / Unknown 09/06/2025 6:48 AM EDT 09/06/2025 7:23 AM EDT Tammy Caban MD LAB POINT OF CARE TE ST DOCKED DEVICE UNSOLICITED RESULTS Final Result Performing Organization Address City/[facility]/ZIP Co de Phone Number [facility] [address] [place] [address] * Phosphorus, Plasma (09/06/2025 3:37 AM EDT) Only the most recent of9 resultswithin the time period is included. Phosphorus, Plasma 4.0 2.5 - 4.5 mg/dL 09/06/2025 4:51 AM EDT [facility] Blood Venous blood specimen / Unknown Venipuncture / Unknown 09/06/2025 3:37 AM EDT 09/06/2025 3:59 AM EDT Emma Lehman MD LAB BLOOD ORDERABLES Final Resu lt Performing Organization Address [facility] de Phone Number [facility]ARE [facility] [address] [place] [address] * Magnesium, Plasma (09/06/2025 3:37 AM EDT) Only the most recent of9 resultswithin the time period is included. Magnesium, Plasma 1.9 1.9 - 2.4 mg/dL 09/06/2025 4:51 AM EDT [facility] Blood Venous blood specimen / Unknown Venipuncture / Unknown 09/06/2025 3:37 AM EDT 09/06/2025 3:59 AM EDT us Emma Lehman MD LAB BLOOD ORDERABLES Final Resu Performing Organization Address [facility] de Phone Number [facility] [address] [place] [address] * XR Shoulder Right 2+ Views (08/30/2025 4:55 PM EDT) Anatomical Region Laterality Modality Upper Extremities, Shoulder Right Digi aaliyah Radiography Impressions 08/30/2025 4:56 PM EDT No fracture. CRITICAL RESULT: No. COMMUNICATION: Per this written report. Drafted by oCry Jimenez MD on 08/30/2025 4:56 PM Final [...] IMG XR PROCEDURES Final Resu lt * Human Immunodeficiency Virus (HIV-1) Quantitative PCR (08/12/2025 5:12 PM EDT) Human Immunodeficiency Virus (HIV-1) Quant Interpretation Not Detected Not Detected 08/15/2025 9:44 PM EDT [facility] Blood Venous blood specimen / Unknown Venipuncture / Unknown 08/12/2025 5:12 PM EDT 08/12/2025 5:17 PM EDT Narrative [facility] - 08/15/2025 9:44 PM EDT [...] LAB BLOOD ORDERABLES Rosa Maria l Result [facility] [address] [place] [address] * Hepatitis panel, acute (08/09/2025 3:57 AM EDT) [facility] Hepatitis B Surf Antigen Negative Negative 08/09/2025 5:37 AM EDT [facility] Hepatitis C Antibody Negative Negative 08/09/2025 5:37 AM EDT [facility] Hepatitis A Antibody IgM Negative Negative 08/09/2025 5:37 AM EDT [facility] Hepatitis B Core Antibody IgM Negative Negative 08/09/2025 5:37 AM EDT [facility] Blood Venous blood specimen / Unknown Venipuncture / Unknown 08/09/2025 3:57 AM EDT 08/09/2025 4:29 AM EDT us Tammy Woody MD LAB BLOOD ORDERABLES Final R esult Performing Organization Address City/[facility]/ZIP Co de Phone Number [facility] [address] [place] [address] * Hemoglobin A1c (08/07/2025 5:05 AM EDT) [facility] External Hemoglobin A1c 5.5 3.8 - 5.6 % [facility] Comment: GLYCOSYLATED HEMOGLOBIN (A1C) EXPECTED RANGES: <6.5 NON-DIABETIC 6.5-7.5 EXCELLENT 7.5-8.5 GOOD >8.5 POOR 08/07/2025 5:05 AM EDT 08/07/2025 5:38 AM EDT us Generic [place] Provider LAB BLOOD ORDERABLES Final Result Performing Organization Address City/[facility]/ZIP Co de Phone Number [facility] * Colonoscopy External Result (02/24/2025) Anatomical Region Laterality Modality Endoscopy Narrative 02/24/2025 Ordered by an unspecified provider. us External Provider GI PROCEDURE ORDERABLES Final Result from Last 3 Months or Most Recently Relevant to Health Maintenance Insurance [facility] MEDICAID Advance Directives * Full Code (Latest Code Status on File) Date Activated Date Inactivated Comments 08/09/2025 5:09 AM 09/06/2025 6:38 PM Question Answer Comments I have reviewed the capacity from the link above and, if needed, have updated to appropriate status: Yes Care Teams Mop Worker Relationship Specialty Start Date End Date Rodolfo Rhoades MD [address] [place] [address] PCP - General Family Medicine 02/02/25
--- OUTSIDE RECORDS SUMMARY | 2025-11-28 13:10 | XMS_ITS | Encounter Summary ---
Author Organization Healthcare Address [address] [id number] Care Team Providers Care Boring Machine Set Up Operator Jig Name Role Phone Georgette Moore APRN Primary Care Provider [phone] Veronica Goodwin Unavailable Unavailable Margaret Ro Unavailable Unavailable Rodolfo Rhoades MD Primary Care Provider [phone] Marianne Bolaños Unavailable Unavailable Ariana Bagley Unavailable Unavailable So Caicedo LPN Unavailable Unavailable Keyonna Goff Unavailable Unavailable Encounter Details Date Type Department Care Team (Late st Contact Info) Description 07/21/2024 Outside Procedure External Location [address] [place] [id number] Provider, Swapnil Monique Social History Tobacco Use [...] In the past 12 months has e [employer] ([employer]), gas, oil, or water [facility] threatened to shut off services in your [...] [facility] [address] [place] [address] Rodolfo Rhoades MD [address] [place] [address] documented as of this encounter Procedures Procedure Name Priority Date/Time Associated Diagnosis Comments XR CHEST 1 VIEW 07/21/2024 4:03 PM EDT documented in this encounter Results * XR Chest 1 View (07/21/2024 4:03 PM EDT) Anatomical Region Laterality Modality Chest Digital Radiogra phy 07/21/2024 4:03 PM EDT Narrative 07/21/2024 4:31 PM EDT [address] [address] Name: VERONICA ALVAREZ Exam Date: 07/21/2024 : 1975 Age 48 years Gender: F Physician: PAOLA PIZARRO Facility: [facility] Facility HSV: Outpatient Exam: CHEST [...] you for referring VERONICA ALVAREZ to [facility]. Legally authenticated by NATALIE CULVER 2024-07-21 16:12:48 Procedure Note Provider, Swapnil [place] - 07/21/2024 [place] [address] Name: VERONICA ALVAREZ Exam Date: 07/21/2024 : 1975 Age 48 years Gender: F Physician: PAOLA PIZARRO Facility: [facility] Facility HSV: Outpatient Exam: CHEST [...] you for referring VERONICA ALVAREZ to [facility]. Legally authenticated by NATALIE CULVER 2024-07-21 16:12:48 Generic [place] Provider IMG XR PROCEDURES Fi nal Result [...] documented as of this encounter Care Teams Boring Machine Set Up Operator Jig Relationship Specialty Start Date End Date Georgette Moore APRN [address] [place] [address] PCP - General 04/12/21 02/01/25 Rodolfo Rhoades MD [address] [place] [phone] PCP - General Family Medicine 02/02/25 [place] [address] TCM Nurse 07/25/24 08/25/24 Margaret Ro Community Health Worker 07/27/24 4 Wages, Marianne Clinical Java Programmer Analyst 07/14/25 07/28/25 Ariana Bagley Community Health Worker 07/14/25 07/14/25 So Caicedo LPN [employer] [place] [address] None TCM Nurse 09/07/25 10/07/25 Keyonna Goff Community Health Worker 11/01/25 5 documented as of this encounter
--- OUTSIDE RECORDS SUMMARY | 2025-11-28 13:11 | XMS_ITS ---
Author Organization [facility] Address [address] [place] [address] Care Team Providers Care Gristmiller Name Role Phone Rodolfo Rhoades MD Primary Care Provider Transitional Care Management Status:Closed (Closed) Program category:Transitional Care Management - [facility] Start date:09/07/2025 Enrollment date:09/08/2025 Enrollment reason:Identified using hospital discharge data End date:10/07/2025 Close reason:Patient graduated Overview This episode type is for outpatient care managers enrolling patients in the [facility] Transitional Care Management program. Continued Care and Services Coordination
--- OUTSIDE RECORDS SUMMARY | 2025-11-28 13:11 | XMS_ITS | Encounter Summary ---
Author Organization Healthcare Address [address] [id number] Care Team Providers Care Batch Weigher Name Role Phone Rodolfo Rhoades MD Primary Care Provider [phone] So Caicedo LPN Unavailable Unavailable Keyonna Goff Unavailable Unavailable Encounter Details Date Type Department Care Team (Late st Contact Info) Description 08/06/2025 Outside Procedure External Location [address] [place] [phone] Provider, Swapnil [place] Social History Tobacco Use Types Packs/Day Years [...] in a prison (including now)? No 08/09/2025 [facility] [...] Description 12/08/2025 11:20 AM EST Office Visit [facility] [address] [place] [address] Rodolfo Rhoades MD [address] [place] [address] documented as of this encounter Procedures Procedure Name Priority Date/Time Associated Diagnosis Comments XR CHEST 1 VIEW 08/06/2025 9:18 AM EDT documented in this encounter Results * XR Chest 1 View (08/06/2025 9:18 AM EDT) Anatomical Region Laterality Modality Chest Digital Radiogra phy 08/06/2025 9:18 AM EDT Narrative 08/06/2025 10:17 AM EDT [address] [address] Name: HAILEY ALVAREZ Exam Date: 08/06/2025 : 1975 Age 49 years Gender: F Physician: REFUGIO JACKSON Facility: [facility] Facility HSV: Outpatient Exam: CHEST PORTABLE PROCEDURE: [...] Thank you for referring HAILEY ALVAREZ to [facility]. Legally authenticated by BRITTON RIVERA 2025-08-06 10:14:11 Procedure Note Provider, Generic [place] - 08/06/2025 [place] [address] Name: HAILEY ALVAREZ Exam Date: 08/06/2025 : 1975 Age 49 years Gender: F Physician: REFUGIO JACKSON Facility: [facility] Facility HSV: Outpatient Exam: CHEST PORTABLE PROCEDURE: [...] Thank you for referring HAILEY ALVAREZ to [facility]. Legally authenticated by BRITTON RIVERA 2025-08-06 10:14:11 Generic [place] Provider IMG XR PROCEDURES Fi nal Result [...] documented as of this encounter Care Teams Batch Weigher Relationship Specialty Start Date End Date Rodolfo Rhoades MD [address] [place] [address] PCP - General Family Medicine 02/02/25 So Caicedo, ANTOINE [employer] [address] None TCM Nurse 09/07/25 10/07/25 Keyonna Goff Community Health Worker 11/01/25 5 documented as of this encounter
--- OUTSIDE RECORDS SUMMARY | 2025-11-28 13:11 | XMS_ITS | Encounter Summary ---
Author Organization Healthcare Address [facility] [place] [address] Care Team Providers Care Wet Process Operator Name Role Phone Rodolfo Rhoades MD Primary Care Provider [phone] So Caicedo LPN Unavailable Unavailable Encounter Details Date Type Department Care Team (Late st Contact Info) Description 10/02/2025 Telephone [facility] [address] [place] [address] Rodolfo Rhoades MD [address] [place] [address] Social History Tobacco Use Types [...] in a chcf (including now)? No 08/09/2025 [facility] Utilities [...] EST Office Visit [facility] [address] [place] [address] Rodolfo [place]oades [place] [address] documented as of this encounter Visit Diagnoses [...] documented as of this encounter Care Teams Wet Process Operator Relationship Specialty Start Date End Date Rodolfo Rhoades MD [address] [place] [address] PCP - General Family Medicine 02/02/25 So Caicedo LPN [employer] [place] [address] None TCM Nurse 09/07/25 10/07/25 documented as of this encounter
--- OUTSIDE RECORDS SUMMARY | 2025-11-28 13:11 | XMS_ITS | Encounter Summary ---
Author Organization Healthcare Address [address] [id number] Care Team Providers Care Reports Developer Name Role Phone Rodolfo Rhoades MD Primary Care Provider [phone] So Caicedo LPN Unavailable Unavailable Keyonna Goff Unavailable Unavailable Encounter Details Date Type Department Care Team (Late st Contact Info) Description 08/06/2025 Outside Procedure External Location [address] [place] [phone] Provider, Swapnil [place] Social History Tobacco Use Types Packs/Day Years [...] in a retirement (including now)? No 08/09/2025 [facility] [...] EST Office Visit [facility] [address] [place] [address] Rodolfo Rhoades MD [address] [place] [address] documented as of this encounter Procedures Procedure Name Priority Date/Time Associated Diagnosis Comments XR ANKLE RIGHT 2 VIEWS 08/06/2025 12:23 PM EDT documented in this encounter Results * XR Ankle Right 2 Views (08/06/2025 12:23 PM EDT) Anatomical Region Laterality Modality Lower Extremities, Ankle Right Digital Radiography 08/06/2025 12:2 3 PM EDT Narrative 08/06/2025 12:43 PM EDT [address] [place] [address] [address] Name: HAILEY ALVAREZ Exam Date: 08/06/2025 : 1975 Age 49 years Gender: F Physician: LOBO LOWERY Facility: [facility] Facility HSV: Inpatient Exam: ANKLE 2V RT XR ANKLE 2 VIEWS RIGHT, 08/06/2025 11:34 AM CDT CLINICAL INDICATION: Female, 49 years old. Acute swelling, unable to bear weight COMPARISON: No existing relevant imaging and/or the patient did not have previous relevant imaging. Number of Views: 2 views of the right ankle was/were obtained. [id number]. FINDINGS / IMPRESSION: Diffuse subcutaneous edema. No acute fracture or dislocation. Anatomic osseous alignment. Ankle mortise is congruent. Negative for joint effusion. . . . S/D/G Electronically signed by: Blu Wasserman MD 08/06/2025 12:39 PM EDT RP Dictated By: Blu Wasserman Transcribed By: Transcribed On: 08/06/2025 12:39 PM Electronically signed by: Blu Wasserman 08/06/2025 Thank you for referring HAILEY ALVAREZ to [facility]. Legally authenticated by SEMAJ Momin 2025-08-06 12:39:28 Procedure Note Provider, [facility] 08/06/[id number] [place] [address] Name: HAILEY ALVAREZ Exam Date: 08/06/2025 : 1975 Age 49 years Gender: F Physician: LOBO LOWERY Facility: [facility] Facility HSV: Inpatient Exam: ANKLE 2V RT XR ANKLE 2 VIEWS RIGHT, 08/06/2025 11:34 AM CDT CLINICAL INDICATION: Female, 49 years old. Acute swelling, unable tobear weight COMPARISON: No existing relevant imaging and/or the patient did not have previous relevant imaging. Number of Views: 2 views of the right ankle was/were obtained. [id number]. FINDINGS / IMPRESSION: Diffuse subcutaneous edema. No acute fracture or dislocation. Anatomic osseous alignment. Anklemortise is congruent. Negative for joint effusion. . . . S/D/G Electronically signed by: Blu Wasserman MD 08/06/2025 12:39 PM EDTRP Dictated By: Blu Wasserman Transcribed By: Transcribed On: 08/06/2025 12:39 PM Electronically signed by: Blu Wasserman 08/06/2025 Thank you for referring HAILEY ALVAREZ to [facility]. Legally authenticated by SEMAJ Momin 2025-08-06 12:39:28 Generic [place] Provider IMG XR PROCEDURES Fi nal Result [...] documented as of this encounter Care Teams Reports Developer Relationship Specialty Start Date End Date Rodolfo Rhoades MD [address] [place] [address] PCP - General Family Medicine 02/02/25 So Caicedo LPN [employer] [place] [address] None TCM Nurse 09/07/25 10/07/25 Keyonna Goff Community Health Worker 11/01/25 5 documented as of this encounter
--- OUTSIDE RECORDS SUMMARY | 2025-11-28 13:11 | XMS_ITS | Encounter Summary ---
Author Organization Healthcare Address [address] [id number] Care Team Providers Care Typesetting Machine Tender Name Role Phone Rodolfo Rhoades MD Primary Care Provider [phone] Keyonna Goff Unavailable Unavailable Reason for Visit * Reason Comments Chw/[employer] Encounter Details Date Type Department Care Team (Late st Contact Info) Description 11/09/2025 Patient Outreach [facility] [address] [facility] [address] [place] [address] Keyonna Goff Chw/[employer] Social History [...] in a long-term (including now)? No 08/09/2025 [facility] Utilities Answer Date Recorded In [...] Visit [facility] [address] [place] [address] Rodolfo Rhoades MD [address] [place] [address] documented as of this encounter [...] documented as of this encounter Care Teams Typesetting Machine Tender Relationship Specialty Start Date End Date Rodolfo Rhoades MD [address] [place] [address] PCP - General Family Medicine 02/02/25 Keyonna Goff Community Health Worker 11/01/25 5 documented as of this encounter
--- OUTSIDE RECORDS SUMMARY | 2025-11-28 13:11 | XMS_ITS | Encounter Summary ---
Author Organization Healthcare Address [place] [address] Care Team Providers Care Glove Cleaner Name Role Phone Rodolfo Rhoades MD Primary Care Provider [phone] Keyonna Goff Unavailable Unavailable Encounter Details Date Type Department Care Team (Late st Contact Info) Description 11/07/2025 Orders Only [facility] Medicine [address] [place] [address] Rodolfo Rhoades MD [address] [place] [address] Elevated CK (Primary Dx) Social [...] the past 12 months has th e [employer], gas, oil, or water [employer] threatened to shut off services in your [...] Description 12/08/2025 11:20 AM EST Office Visit [facility] [place] [address] [address] [place] [address] documented as of this encounter [...] documented as of this encounter Care Teams Glove Cleaner Relationship Specialty Start Date End Date Rodolfo [place] [address] PCP - General Family Medicine 02/02/25 Keyonna Goff Community Health Worker 11/01/25 5 documented as of this encounter
--- OUTSIDE RECORDS SUMMARY | 2025-11-28 13:11 | XMS_ITS | Encounter Summary ---
Author Organization [facility] Address [facility] [place] [address] Care Team Providers Care Executor Of Estate Name Role Phone Rodolfo Rhoades MD Primary Care Provider [phone] Keyonna Goff Unavailable Unavailable Reason for Visit * Reason Onset Date Comments HCN Clinical Concern/Question 11/17/2025 Encounter Details Date Type Department Care Team (Late st Contact Info) Description 11/17/2025 Telephone [facility] Medicine [address] [place] [address] Rodolfo Rhoades MD [address] [place] [address] HCN Clinical Concern/Question Social History [...] in a correction (including now)? No 08/09/2025 [facility] Utilities Answer Date Recorded In [...] lab work and I will fax to [facility]. Pt voiced understanding and stated she [...] She would like to have [facility]ardone at [facility]. Please call to discuss. Thanks! Best contact number: [phone] (mobile) Optimal time of day to reach [...] Description 12/08/2025 11:20 AM EST Office Visit [address] [address] Rodolfo Rhoades MD [address] [address] documented as of this [...] documented as of this encounter Care Teams Executor Of Estate Relationship Specialty Start Date End Date Rodolfo Rhoades MD [address] [address] PCP - General Family Medicine 02/02/25 Keyonna Goff Community Health Worker 11/01/25 5 documented as of this encounter
--- OUTSIDE RECORDS SUMMARY | 2025-11-28 13:11 | XMS_ITS | Encounter Summary ---
Author Organization Healthcare Address [address] [id number] Care Team Providers Care Cryptologist Name Role Phone Rodolfo Rhoades MD Primary Care Provider [phone] Keyonna Goff Unavailable Unavailable Reason for Visit * Reason Comments Chw/[employer] Encounter Details Date Type Department Care Team (Late st Contact Info) Description 11/02/2025 Patient Outreach [facility] [address] [facility] [address] [place] [address] Keyonna oGff Chw/E[employer]ercare Social History Tobacco Use Types Packs/Day [...] in a custodial (including now)? No 08/09/2025 [facility] [...] 11/02/2025 Urgent or Non-Urgent Referral: Non Urgent Pattern Marking Supervisor: No Preferred Language: German Pattern Marking Supervisor ID: N/A Outreach 1: 11/01/25 Outreach [...] with lack of resources in their area ([facility]) and thatthey care for a child diagnosed [...] Description 12/08/2025 11:20 AM EST Office Visit [facility] [address] [place] [address] Rodolfo Rhoades MD [address] [place] [address] documented as of this encounter [...] documented as of this encounter Care Teams Cryptologist Relationship Specialty Start Date End Date Rodolfo Rhoades MD [address] [place] [address] PCP - General Family Medicine 02/02/25 Keyonna Goff Community Health Worker 11/01/25 5 documented as of this encounter
--- OUTSIDE RECORDS SUMMARY | 2025-11-28 13:11 | XMS_ITS | Encounter Summary ---
Author Organization [facility] Address [address] [place] [address] Care Team Providers Care Manager Estate Name Role Phone Rodolfo Rhoades MD Primary Care Provider [phone] Keyonna Goff Unavailable Unavailable Reason for Referral * Consultation (Routine) - Authorized Specialty Diagnoses / Procedures Referred By [facility] Referred To Contact Rheumatology Diagnoses Non-traumatic rhabdomyolysis Elevated CK Rodolfo Rhoades MD [address] [place] [address] Phone: tel: fax: Referral ID Status Reason Start Date Expiration Date Visits Requested Visits Authorized [id number] Authorized Specialty Services Required 11/04/2025 05/06/2027 1 1 Encounter Details Date Type Department Care Team (Late st Contact Info) Description 11/02/2025 Orders Only [facility] Medicine [address] [place] [address] Rodolfo Rhoades MD [address] [place] [address] Non-traumatic rhabdomyolysis (Primary Dx); Elevated [...] in a fci (including now)? No 08/09/2025 [facility] Utilities Answer Date Recorded In the [...] EST Office Visit [facility] [address] [place] [address] Rodolfo Rhoades MD [address] [place] [address] Scheduled Referrals Name Type Priority [...] as of this encounter Care Teams Manager Estate Relationship Specialty Start Date End Date Rodolfo Rhoades MD [address] [place] [address] PCP - General Family Medicine 02/02/25 Keyonna Goff Community Health Worker 11/01/25 5 documented as of this encounter
--- OUTSIDE RECORDS SUMMARY | 2025-11-28 13:11 | XMS_ITS | Encounter Summary ---
Author Organization Healthcare Address [facility] [place] [place] [address] Care Team Providers Care Editorial Clerk Name Role Phone Rodolfo Rhoades MD Primary Care Provider [phone] Keyonna Goff Unavailable Unavailable Encounter Details Date Type Department Care Team (Late st Contact Info) Description 11/02/2025 Results Follow-Up [facility] [address] [place] [address] Rodolfo Rhoades MD [address] [place] [address] Social History Tobacco Use Types [...] the past 12 months has th e [employer], gas, oil, or water [employer] threatened to shut off services in your [...] EST Signed a script to fax to [place] for labs to be drawn. I also added an order to have CK checked here if there's difficulty getting the labs done in [place]. * Telephone Encounter - Angelica Apodaca - 11/03/2025 11:34 AM EST Status Update Call #1 1st call regarding the status of the initial request. Best contact number: [phone] (mobile) Optimal time of day to reach caller: ANYTIME Additional comments/information from caller: Pt calling, to see if she can get an appt with rheumatology in [place]. Pt states she is going to [facility] to check her levels due to [place] [...] will receive notification of the communication/outcome via [employer]. * Telephone Encounter - Melodie Jay RN - 11/03/2025 10:49 AM EST Pt returned call today asking if she could go to [facility]. RN reviewed Dr. Rhoades's note w/ pt that specifically mentioned send to ER for quick rheumatology work up w/ possible muscle biopsy. Advised pt [facility] may not have capability to work up as requested. Pt concerned about wait and lengthy stay at ER. RN advised she could try [facility] ER as they are a hospital as well. documented in this encounter Plan of Treatment Upcoming Encounters Date Type Department Care Team (Late st Contact Info) Description 12/08/2025 11:20 AM EST Office Visit [facility] [address] [place] [address] Rodolfo Rhoades MD [address] [...] documented as of this encounter Care Teams Editorial Clerk Relationship Specialty Start Date End Date Rodolfo Rhoades MD [address] [place] [address] PCP - General Family Medicine 02/02/25 Keyonna Goff Community Health Worker 11/01/25 5 documented as of this encounter
--- OUTSIDE RECORDS SUMMARY | 2025-11-28 13:11 | XMS_ITS | Encounter Summary ---
Author Organization [facility] Address [facility] [place] [address] Care Team Providers Care General Practice Name Role Phone Rodolfo Rhoades MD Primary Care Provider [phone] Keyonna Goff Unavailable Unavailable Reason for Visit * Reason Onset Date Comments HCN Paperwork/Documentation Request 11/02/2025 Encounter Details Date Type Department Care Team (Late st Contact Info) Description 11/02/2025 Telephone [facility] Medicine [address] [place] [address] Rodolfo Rhoades MD [address] [place] [address] HCN Paperwork/Documentation Request Social History Tobacco [...] in a usp (including now)? No 08/09/2025 [facility] Utilities Answer Date Recorded In the past 12 months has th e [employer] ([employer]), gas, oil, or water [employer] threatened to shut off services in your [...] expiration for MRI of the head w/o/ [facility] Due Date: 11/02/2025 Send To: [facility] [phone] Best contact number: Other: [phone] Optimal time of day to reach caller: ANYTIME Additional comments/information from caller: None Note: Please do not reply to this message. Follow-up communication and further actions as a result of this message need to be communicated with the patient directly, if the patient is not active onMyChart. If the patient is active on MyChart, they will receive notification of the communication/outcome via [employer]. documented in this encounter Plan of Treatment Upcoming Encounters Date Type Department Care Team (Late st Contact Info) Description 12/08/2025 11:20 AM EST Office Visit [facility] [address] [place] [address] Rodolfo Rhoades MD [address] [place] [address] documented as of this encounter Visit [...] documented as of this encounter Care Teams General Practice Relationship Specialty Start Date End Date Rodolfo Rhoades MD [address] [place] [address] PCP - General Family Medicine 02/02/25 Keyonna Goff Community Health Worker 11/01/25 5 documented as of this encounter
--- OUTSIDE RECORDS SUMMARY | 2025-11-28 13:11 | XMS_ITS | Encounter Summary ---
Author Organization Healthcare Address [address] [id number] Care Team Providers Care Credentials Specialist Name Role Phone Rodolfo Rhoades MD Primary Care Provider [phone] So Caicedo LPN Unavailable Unavailable Reason for Visit * Reason Comments Med Refill Encounter Details Date Type Department Care Team (Late st Contact Info) Description 10/05/2025 Refill [facility] Medicine [address] [facility], [address] [place] [address] Tammy Caban MD [address] [facility] [address] [place] [address] Social History Tobacco Use Types [...] in a mcfp (including now)? No 08/09/2025 [facility] [...] Office Visit [facility] [address] [place] [address] Rodolfo Rhoades MD [address] [place] [address] documented as of this encounter [...] documented as of this encounter Care Teams Credentials Specialist Relationship Specialty Start Date End Date Rodolfo Rhoades MD [address] [place] [address] PCP - General Family Medicine 02/02/25 So Caicedo LPN [employer] [place] [address] None TCM Nurse 09/07/25 10/07/25 documented as of this encounter
--- OUTSIDE RECORDS SUMMARY | 2025-11-28 13:11 | XMS_ITS | Encounter Summary ---
Author Organization [facility] Address [facility] [place] [address] Care Team Providers Care Hand Meat Salter Name Role Phone Rodolfo Rhoades MD Primary Care Provider [phone] Keyonna Goff Unavailable Unavailable Reason for Visit * Reason Onset Date Comments HCN Clinical Concern/Question 11/10/2025 Encounter Details Date Type Department Care Team (Late st Contact Info) Description 11/10/2025 Telephone [facility] Medicine [address] [place] [address] Rodolfo Rhoades MD [address] [place] [address] HCN Clinical Concern/Question Social History [...] 3:48 PM EST Sent to pt in [employer] * Telephone Encounter - Rodolfo Rhoades MD - 11/13/2025 3:16 PM EST The only other option we can try while waiting for rheumatology is a round of steroids and have herfollow up in the office for repeat testing. I know it's [place] to get to [place]. I don't like thatthe level lis rising [...] and is asking for a call back [facility] Best contact number: [phone] Optimal time of day to reach caller: Additional comments/information from caller: Note: Please do not reply to this message. Follow-up communication and further actions as a result of this message need to be communicated with the patient directly, if the patient is not active onMyChart. If the patient is active on MyChart, they will receive notification of the communication/outcome via [email or web address]. * Telephone Encounter - Sandy Foster - 11/10/2025 3:43 PM EST Clinical Concern/Question Reason for Call: pt asks if the CK lab test she had at [facility] yesterday have been rec'd in clinic. Also asks if Dr Rhoades would write a letter stating that, due to her current health issue/nerve damage, inability to walk, etc, she is unable to work. She also asks for callback to advise what else she can do for her recovery. Please call to discuss. thx Best contact number: [phone] (mobile) Optimal time of day to reach caller: ANYTIME Additional comments/information from caller: None Note: Please do not reply to this message. Follow-up communication and further actions as a result of this message need to be communicated with the patient directly, if the patient is not active onMyChart. If the patient is active on MyChart, they will receive notification of the communication/outcome via [employer]. documented in this encounter Plan of Treatment Upcoming Encounters Date Type Department Care Team (Late st Contact Info) Description 12/08/2025 11:20 AM EST Office Visit [facility] [address] [place] [address] Rodolfo Rhoades MD [address] [place] [address] Scheduled Orders Name Type Priority [...] as of this encounter Care Teams Hand Meat Salter Relationship Specialty Start Date End Date Rodolof Rhoades MD [address] [place] [address] PCP - General Family Medicine 02/02/25 Keyonna Goff Community Health Worker 11/01/25 5 documented as of this encounter
--- OUTSIDE RECORDS SUMMARY | 2025-11-28 13:11 | XMS_ITS | Encounter Summary ---
Author Organization [facility] Address [facility] [place] [address] Care Team Providers Care Cna Instructor Name Role Phone Rodolfo Rhoades MD Primary Care Provider [phone] Keyonna Goff Unavailable Unavailable Reason for Visit * Reason Onset Date Comments HCN Lab/home Health 11/20/2025 Lab order Encounter Details Date Type Department Care Team (Late st Contact Info) Description 11/20/2025 Telephone [facility] [address] [place] [address] Rodolfo Rhoades MD [address] [place] [address] HCN Lab/home Health (Lab order) [...] in a [facility] (including now)? No 08/09/2025 [facility] Utilities Answer Date Recorded [...] work to be drawn [facility]. Pt voiced understanding. * Telephone Encounter - Aniket Foster - 11/20/2025 1:10 PM EST Lab /Home Health Orders Patient: Veronica Weiss Type of Order: request lab order be sent to [facility] in [place] Fax Number (if outside ): states Nurse has it since done in past Best contact number: [phone] Optimal time of day to reach caller: [...] will receive notification of the communication/outcome via [employer]. documented in this encounter Plan of Treatment Upcoming Encounters Date Type Department Care Team (Late st Contact Info) Description 12/08/2025 11:20 AM EST Office Visit [facility] [address] [place] [address] [place] [address] documented as of this encounter Visit [...] documented as of this encounter Care Teams Cna Instructor Relationship Specialty Start Date End Date Rodolfo Rhoades MD [address] [place] [address] PCP - General Family Medicine 02/02/25 Keyonna Goff Community Health Worker 11/01/25 5 documented as of this encounter
--- OUTSIDE RECORDS SUMMARY | 2025-11-28 13:11 | XMS_ITS | Clinical Summary ---
[facility] Address [address] [place] [address] Care Team Providers Care Chief Executive Name Role Phone Rodolfo Rhoades MD Primary Care Provider [phone] Allergies Active Allergy Reactions Criticality Noted Date [...] lateral wall. Normal LVEF. Cardiac cath at [facility] (04/2020): Normal coronary arteries. 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 Not on file Not [...] SCREENING 02/24/2035 Medical Devices Implanted Type Area Intensive Care Ambulance Paramedic Device Identifier Shelf Expiration Date Model / Serial / Lot Vlv Aort [facility] 19mm - [id number] - [id number] Implanted:Qty : 1 on 06/11/2021 by Taz Cespedes MD at [facility] Implant N/A: Heart [employer] [id number] 01/01/2025 [id number] / [id number] / Appl Clip Evelyn [employer]ric[employer] Flx 35mm - [id number] Implanted:Qty : 1 on 06/11/2021 by Taz Cespedes MD at [facility] Implant N/A: Heart [employer] 02/29/2024 [id number] / / [id number] Procedures Procedure Name Priority Date/Time Associated Diagnosis Comments LIPID PANEL STAT 04/19/2021 9:30 AM EDT from Last 3 Months or Most Recently Relevant to Health Maintenance Results * Lipid Panel (04/19/2021 9:30 AM EDT) Total Cholesterol 146 0 - 200 mg/dL 04/19/2021 10:14 AM EDT [facility] Triglycerides 67 0 - 150 mg/dL 04/19/2021 10:14 AM EDT [facility] HDL Cholesterol 58 40 - 60 mg/dL 04/19/2021 10:14 AM EDT [facility] LDL Cholesterol 75 0 - 100 mg/dL 04/19/2021 10:14 AM EDT [facility] VLDL Cholesterol 13 5 - 40 mg/dL 04/19/2021 10:14 AM EDT [facility] LDL/HDL Ratio 1.29 04/19/2021 10:14 AM EDT [facility] Blood Line / Unknown 04/19/2021 9: 30 AM EDT 04/19/2021 9:40 AM EDT [facility] - 04/19/2021 10:14 AM EDT Cholesterol [...] Saavedra APRN LAB BLOOD ORDERABLES Final Result [facility]
[address] [place] [address], from Last 3 Months or Most Recently Relevant to Health Maintenance Insurance [employer] [facility] Advance Directives * CPR (Attempt to Resuscitate) (Latest Code Status on File) Date Activated Date Inactivated Comments 06/11/2021 10:54 AM 06/18/2021 6:29 PM Question Answer Comments Code Status (Patient has no pulse and is not breathing): CPR (Attempt to Resuscitate) Medical Interventions (Patie nt has pulse or is breathing): Full Care Teams Chief Executive Relationship Specialty Start Date End Date Rodolfo Rhoades MD [address] [place] [address] PCP - General Family Medicine 04/05/25
== END 2025-11-28 23:59 | disposition home or self-care (01) ==
LOC: RAD 13:08
PROVIDERS: PCP Nurse Practitioner Family; Visit Provider Family Medicine
DX: R90.82 White matter disease, unspecified (principal); R90.89 Other abnormal findings on diagnostic imaging of central nervous system; R51.9 Headache, unspecified; G89.29 Other chronic pain
CPT/HCPCS: 70551